=== PATIENT | female | born 1945 | race Caucasian/White ===

== ENCOUNTER → 2017-05-04 08:35 | Outpatient (CLI) | payer MEDICARE, SELFPAY ==
--- NOTE | 2017-05-04 08:38 | HPBI_ITS ---
MAMMOGRAPHY - BILATERAL SCREENING 3-D FLOR SYNTHESIS REASON FOR EXAM: Female, 71 years old. Bilateral Screening 3-D tomosynthesis PERTINENT HISTORY: History of benign breast biopsy.. TECHNIQUE: 2-D mammograms and 3-D Flor synthesis of the breast (s) were performed. CAD was performed. COMPARISON: 04/26/2016 FINDINGS: The breast composition is composed of scattered fibroglandular density. Stable scattered benign punctate calcifications are seen. No dense spiculated masses or suspicious microcalcifications are identified. No architectural distortion is identified. There is no skin thickening or retraction. There has been no significant change since the prior study. HPBI/SCREENING MAMM (CAD), BILAT IMPRESSION: No mammographic signs of malignancy. Routine yearly mammograms recommended. ASSESSMENT CATEGORY: BIRADS Category 2: Benign. A letter regarding these results will be sent to the patient by the facility within 30 days. FOLLOW UP RECOMMENDATION: Yearly follow up mammogram recommended. (A) Approximately 10% of breast cancers are not detected by mammography. A normal mammogram should not delay biopsy of a clinically suspicious abnormality. Electronically Signed: Faizan Collier MD at 8:37 EDT , Service support ,
== END ==
PROVIDERS: Family Provider Student in an Organized Health Care Education/Training Program; PCP Student in an Organized Health Care Education/Training Program; Visit Provider Student in an Organized Health Care Education/Training Program
DX: Z12.31 Encounter for screening mammogram for malignant neoplasm of breast (principal)
CPT/HCPCS: 77063; 77067

== ENCOUNTER → 2018-05-07 09:38 | Outpatient (CLI) | payer MEDICARE, SELFPAY ==
--- NOTE | 2018-05-07 09:45 | BI_ITS ---
MAMMOGRAPHY - BILATERAL SCREENING REASON FOR EXAM: Female, 72 years old. Routine annual screening examination. PERTINENT HISTORY: Non-contributory. Remote left stereotactic breast biopsy. TECHNIQUE: Digital bilateral breast fran (3D mammographic acquisition) in the CC and MLO projections. 2-D mediolateral oblique (MLO) and craniocaudad (CC) views of both breasts were obtained. CAD: Full Field Digital Mammography with Computer Added Detection was performed. COMPARISON: Comparison is made with prior study dated November 30, 2014 and April 26, 2016. FINDINGS: Breast Composition: There are scattered areas of fibroglandular density. There are no dominant masses or suspicious calcifications. Once again, there is evidence of scattered bilateral microcalcifications in both breasts. These are unchanged. A tissue clip marker is seen in the deep slightly upper lateral portion of the right breast. No other significant abnormalities are identified. There has been no significant change since the prior study. BI/SCREENING MAMM (CAD), BILAT IMPRESSION: Stable bilateral screening mammogram. Yearly follow-up mammogram recommended. (A) ASSESSMENT CATEGORY: BIRADS Category 2: Benign. A letter regarding these results will be sent to the patient by the facility within 30 days. Approximately 10% of breast cancers are not detected by mammography. A normal mammogram should not delay biopsy of a clinically suspicious abnormality. [id number] Electronically Signed: Antonio Matamoros, at 11:10 EDT , Service support ,
== END ==
PROVIDERS: Family Provider Student in an Organized Health Care Education/Training Program; PCP Student in an Organized Health Care Education/Training Program; Referring Provider Student in an Organized Health Care Education/Training Program; Visit Provider Student in an Organized Health Care Education/Training Program
DX: Z12.31 Encounter for screening mammogram for malignant neoplasm of breast (principal)
CPT/HCPCS: 77063; 77067

== ENCOUNTER → 2019-05-12 09:44 | Outpatient (CLI) | payer MEDICARE, SELFPAY ==
--- NOTE | 2019-05-12 09:50 | BI_ITS ---
MAMMOGRAPHY - BILATERAL SCREENING REASON FOR EXAM: Female, 73 years old. Routine annual screening examination. PERTINENT HISTORY: Non-contributory. Prior left stereotactic breast biopsy. TECHNIQUE: Digital bilateral breast flor (3D mammographic acquisition) in the CC and MLO projections. 2-D mediolateral oblique (MLO) and craniocaudad (CC) views of both breasts were obtained. CAD: Full Field Digital Mammography with Computer Added Detection was performed. COMPARISON: Comparison is made with prior study May 07, 2018 and May 04, 2017. FINDINGS: Breast Composition: The breasts are almost entirely fatty. There are no dominant masses or suspicious calcifications. Once again, stable bilateral microcalcifications. A tissue marker is seen in the deep slightly upper lateral portion of the right breast. No other significant abnormalities are identified. There has been no significant change since the prior study. BI/SCREEN MAMM (CAD) W/FLOR BILAT IMPRESSION: Stable bilateral screening mammogram. Yearly follow-up mammogram recommended. (A) ASSESSMENT CATEGORY: BIRADS Category 2: Benign. A letter regarding these results will be sent to the patient by the facility within 30 days. Approximately 10% of breast cancers are not detected by mammography. A normal mammogram should not delay biopsy of a clinically suspicious abnormality. [id number] Electronically Signed: Antonio Matamoros, at 11:25 EDT , Service support ,
== END ==
PROVIDERS: Family Provider Student in an Organized Health Care Education/Training Program; PCP Student in an Organized Health Care Education/Training Program; Referring Provider Student in an Organized Health Care Education/Training Program; Visit Provider Student in an Organized Health Care Education/Training Program
DX: Z12.31 Encounter for screening mammogram for malignant neoplasm of breast (principal)
CPT/HCPCS: 77063; 77067

== ENCOUNTER → 2020-05-14 09:59 | Outpatient (CLI) | payer MEDICARE, SELFPAY ==
--- NOTE | 2020-05-14 10:03 | BI_ITS ---
MAMMOGRAPHY - BILATERAL SCREENING REASON FOR EXAM: Female, 74 years old. Routine annual screening examination. PERTINENT HISTORY: Non-contributory. Remote left stereotactic breast biopsy and left needle biopsy. TECHNIQUE: Digital bilateral breast flor (3D mammographic acquisition) in the CC and MLO projections. 2-D mediolateral oblique (MLO) and craniocaudad (CC) views of both breasts were obtained. CAD: Full Field Digital Mammography with Computer Added Detection was performed. COMPARISON: Comparison is made with prior study of 05/12/2019 and 05/07/2018. FINDINGS: Breast Composition: There are scattered areas of fibroglandular density. There are no dominant masses or suspicious calcifications. A tissue clip marker is once again seen in the deep slightly upper lateral portion of the left breast. Stable scattered bilateral microcalcifications. No other significant abnormalities are identified. There has been no significant change since the prior study. BI/SCRN MAMM (CAD)W/FLOR BILAT IMPRESSION: Stable bilateral screening mammogram. Yearly follow-up mammogram recommended. (A) ASSESSMENT CATEGORY: BIRADS Category 2: Benign. A letter regarding these results will be sent to the patient by the facility within 30 days. Approximately 10% of breast cancers are not detected by mammography. A normal mammogram should not delay biopsy of a clinically suspicious abnormality. [id number] Electronically Signed: Antonio Matamoros MD at 12:27 EDT , Service support ,
== END ==
PROVIDERS: PCP Student in an Organized Health Care Education/Training Program; Referring Provider Student in an Organized Health Care Education/Training Program; Visit Provider Student in an Organized Health Care Education/Training Program
DX: Z12.31 Encounter for screening mammogram for malignant neoplasm of breast (principal)
CPT/HCPCS: 77063; 77067

== ENCOUNTER 2020-12-21 18:17 | Emergency (ER) | payer MEDICARE, SELFPAY ==
[2020-12-21 18:19] VITALS: BP 143/75; PULSE 67; RESP 16; TEMP 36.4; O2SAT 100; BMI 35.4
--- NOTE | 2020-12-21 22:10 | ED.VIS.GI ---
HPI HPI - GI History of Present Illness Chief Complaint: Nausea/Vomiting Narrative Narrative: 75-year-old female presenting with nausea and vomiting. She states she started having nausea and vomiting about 9:00 this morning. She was trying to keep hydrated but kept vomiting. She denies any abdominal pain. She denies cough, shortness of breath, fever, chills. She denies diarrhea. She has no urinary complaints. Patient has no sick contacts. Patient was given Zofran prior to arrival in EMS and now feels better. She was also given a liter of IV fluids. PFSH PFSH Home Medications ondansetron 4 mg PO Q8H PRN PRN #20 tab 12/21/20 [Rx Last Taken Unknown] Allergy/AdvReac Type Severity Reaction Status Date / Time diphenhydramine Allergy PT UNSURE Verified 12/21/20 18:22 [From Benadryl] OF REACTION Penicillins Allergy PT UNSURE Verified 12/21/20 18:22 OF REACTION Social History Smoking Status: Never smoker ROS ROS ED Constitutional Constitutional ED: Denies chills or fever(s) ENT ENT ED: Denies rhinorrhea or sore throat Cardiovascular Cardiovascular: Denies chest pain or palpitations Respiratory/Chest Respiratory/Chest: Denies cough or dyspnea Gastrointestinal Gastrointestinal: Reports nausea and vomiting; Denies abdominal pain Genitourinary Genitourinary ED: Denies dysuria or hematuria Musculoskeletal Musculoskeletal: Denies arthralgias or myalgias Integumentary Denies rash Neurologic Neurologic: Denies headache(s) or paresthesias EXAM Physical Exam Const Vital Signs: 12/21/20 18:19 Temperature 97.6 F L Temperature Source Temporal Pulse Rate 67 Respiratory Rate 16 Blood Pressure 143/75 H Blood Pressure Mean 97 Pulse Ox 100 Oxygen Delivery Method Room Air Positive well nourished General Appearance ED: NAD; Negative for pallor HEENT Reports moist mucous membranes normocephalic and atraumatic Eyes PERRL and EOMs intact bilaterally Resp normal respiratory effort and clear to auscultation bilaterally Cardio regular rate and regular rhythm GI non-tender and non-distended Palpation: soft Extremity full ROM General Extremety ED: Negative for edema General Extremity: Negative for edema Neuro Sensorium / Orientation: alert, oriented to person, oriented to place and oriented to time Psych mental status grossly normal and thought process normal Skin General Skin Exam: Negative for jaundice or pallor Rashes: no rashes MDM MDM MDM Narrative Medical decision making narrative: Patient was already given IV fluid bolus as well as Zofran and she has not had any return of her vomiting. I did check some lab work and her CBC shows no leukocytosis with a stable H&H. Electrolytes are normal. She does have some prerenal azotemia. She was given a second liter of IV fluids. She was ambulated in the hallway and felt stable. I will prescribe her Zofran for home. She is counseled to hydrate with small amounts frequently. She is given return precautions. Impression: 1. Nausea/vomiting 2. Dehydration Lab Data Attestation: I reviewed the patient's lab results. Labs: Laboratory Results - last 24 hr 12/21/20 12/21/20 22:50 22:50 WBC 10.1 RBC 4.80 Hgb 11.7 L Hct 38.7 MCV 80.6 L MCH 24.4 L MCHC 30.2 L RDW Std Deviation 40.9 RDW Coeff of Anand 14.2 Plt Count 322 MPV 10.9 Immature Gran % (Auto) 0.300 Neut % (Auto) 77.4 H Lymph % (Auto) 15.3 L Greer % (Auto) 6.3 Eos % (Auto) 0.3 Baso % (Auto) 0.4 Absolute Neuts (auto) 7.8 H Absolute Lymphs (auto) 1.55 Nucleated RBC % 0 Sodium 142 Potassium 3.6 Chloride 112 H Carbon Dioxide 24.0 Anion Gap 6 BUN 16 Creatinine 0.67 Estim Creat Clear Calc 41.45 Est GFR (MDRD) Af Amer 110 Est GFR (MDRD) Non-Af 91 BUN/Creatinine Ratio 23.8 H Glucose 151 H Calcium 8.5 Total Bilirubin 0.40 AST 25 ALT 40 Alkaline Phosphatase 113 Total Protein 6.8 Albumin 3.2 Globulin 3.6 Albumin/Globulin Ratio 0.9 Discharge Plan Triage Chief Complaint: Nausea/Vomiting ED Provider: Cecil Friend Dx/Rx/DC Orders Instructions: ED Dehydration (Adult), ED Vomiting (Adult) Prescriptions: New ondansetron 4 mg tablet,disintegrating 4 mg PO Q8H PRN PRN (Reason: Nausea) Qty: 20 RF: 0 Primary Care Provider: Jeff Simeon Referrals: Jeff Simeon DO [Primary Care Provider] - Disposition Disposition: Home, Self Care
[2020-12-21] MEDS: 0.9% Normal Saline 1,000 ML 1000 ML IV (22:13)
[2020-12-21 22:57] LABS: Absolute Lymphocyte Count 1.55 X10^3/uL (0.83-4.51); Absolute Neutrophil Count 7.8 X10^3/uL (2.0-7.7); Basophil# 0.04 X10^3/uL; Basophil% 0.4 % (0-1); Eosinophil# 0.03 X10^3/uL; Eosinophils% 0.3 % (0-5); Hematocrit 38.7 % (37-47); Hemoglobin 11.7 g/dL (12.0-15.0); Lymphocyte # 1.55 X10^3/ul (0.83-4.51); Lymphocyte % 15.3 % (19-41); Mean Corp Hgb Conc 30.2 g/dL (32-36); Mean Corpuscular Hgb 24.4 pg (27.0-32.0); Mean Corpuscular Volume 80.6 fL (81-99); Mean Platelet Vol. 10.9 fl (6.2-12.0); Monocyte# 0.64 X10^3/uL; Monocyte% 6.3 % (0-10); NRBC Flagged by Analyzer 0 % (0-5); Neutrophil # 7.81 X10^3/uL (2.7-7.7); Neutrophil % 77.4 % (47-70); Platelet Count 322 K/mm3 (150-450); RBC Distribution Width CV 14.2 % (11.6-14.6); RBC Distribution Width SD 40.9 fl (35.1-43.9); White Blood Count 10.1 K/mm3 (4.4-11.0)
[2020-12-21 23:13] LABS: ALB/GLOB Ratio 0.9 RATIO (0.9-2.4); AST(SGOT) 25 U/L (15-37); Alanine Aminotransfer ALT/SGPT 40 U/L (13-56); Albumin, Serum 3.2 g/dL (3.2-5.0); Alkaline Phosphatase 113 U/L (45-117); Anion Gap 6 (5-15); BUN 16 mg/dL (7-18); BUN/Creat Ratio 23.8 RATIO (10-20); Calcium,Total 8.5 mg/dL (8.5-10.1); Chloride 112 mmol/L (98-107); Creatinine, Serum 0.67 mg/dL (0.55-1.02); EST Glomerular Filtration Rate 91 mL/min (>60); Est Glom Filt Rate - Afr Amer 110 mL/min (>60); Estimated Creatinine Clearance 41.45 ml/min; Globulin 3.6 g/dL (2.2-4.2); Glucose 151 mg/dL (74-106); Potassium 3.6 mmol/L (3.5-5.1); Protein, Total 6.8 g/dL (6.4-8.2); Sodium Level 142 mmol/L (136-145)
== END 2020-12-21 23:55 | disposition home or self-care (01) ==
PROVIDERS: Emergency Provider Student in an Organized Health Care Education/Training Program; PCP Student in an Organized Health Care Education/Training Program
DX: R11.2 Nausea with vomiting, unspecified (principal); E86.0 Dehydration
CPT/HCPCS: 36415; 80053; 85025; 99285; A4216

== ENCOUNTER 2021-05-20 15:16 | Outpatient (CLI) | payer MEDICARE, SELFPAY ==
--- NOTE | 2021-05-20 15:20 | BI_ITS ---
MAMMOGRAPHY - BILATERAL SCREENING REASON FOR EXAM: Female, 76 years old. Routine annual screening examination. PERTINENT HISTORY: Non-contributory. Remote left stereotactic breast biopsies. Chronic inversion of the left nipple. TECHNIQUE: Digital bilateral breast flor (3D mammographic acquisition) in the CC and MLO projections. 2-D mediolateral oblique (MLO) and craniocaudad (CC) views of both breasts were obtained. CAD: Full Field Digital Mammography with Computer Added Detection was performed. COMPARISON: Comparison is made with prior study dated 05/14/2020 and 05/12/2019. FINDINGS: Breast Composition: There are scattered areas of fibroglandular density. There are no dominant masses or suspicious calcifications. A tissue clip marker is once again seen in the deep slightly upper lateral portion of the left breast. Stable scattered bilateral calcifications. No focal cluster is seen. No other significant abnormalities are identified. There has been no significant change since the prior study. BI/SCRN MAMM (CAD)W/FLOR BILAT IMPRESSION: Stable bilateral screening mammogram. Yearly follow-up mammogram recommended. (A) ASSESSMENT CATEGORY: BIRADS Category 2: Benign. A letter regarding these results will be sent to the patient by the facility within 30 days. Approximately 10% of breast cancers are not detected by mammography. A normal mammogram should not delay biopsy of a clinically suspicious abnormality. [id number] Electronically Signed: Antonio Matamoros MD at 8:18 EDT ,
== END 2021-05-20 23:59 | disposition home or self-care (01) ==
LOC: OPBI 15:19
PROVIDERS: PCP Student in an Organized Health Care Education/Training Program; Referring Provider Student in an Organized Health Care Education/Training Program; Visit Provider Student in an Organized Health Care Education/Training Program
DX: Z12.31 Encounter for screening mammogram for malignant neoplasm of breast (principal)
CPT/HCPCS: 77063; 77067

== ENCOUNTER → 2022-05-22 | Outpatient (CLI) | payer MEDICARE, SELFPAY ==
--- NOTE | 2022-05-22 08:51 | BI_ITS ---
MAMMOGRAPHY - BILATERAL SCREENING 3-D TOMOSYNTHESIS REASON FOR EXAM: Female, 77 years old. Routine screening PERTINENT HISTORY: No significant family history. History of previous biopsy TECHNIQUE: 2-D mammograms and 3-D Tomosynthesis of the breast (s) were performed. CAD was performed. COMPARISON: 05/14/2020 FINDINGS: The breast composition is almost entirely fat. Scattered benign calcifications are seen. No dense spiculated masses or suspicious microcalcifications are identified. No architectural distortion is identified. There is no skin thickening or retraction. Stable bilateral calcifications There has been no significant change since the prior study. BI/SCRN MAMM (CAD)W/FLOR BILAT IMPRESSION: No mammographic signs of malignancy. Routine yearly mammograms recommended. ASSESSMENT CATEGORY: BIRADS Category 2: Benign. A letter regarding these results will be sent to the patient by the facility within 30 days. FOLLOW UP RECOMMENDATION: Yearly follow up mammogram recommended. (A) Approximately 10% of breast cancers are not detected by mammography. A normal mammogram should not delay biopsy of a clinically suspicious abnormality. Electronically Signed: Faizan Collier MD at 10:10 EDT ,
== END | disposition home or self-care (01) ==
LOC: OPBI 08:49
PROVIDERS: PCP Student in an Organized Health Care Education/Training Program; Referring Provider Student in an Organized Health Care Education/Training Program; Visit Provider Student in an Organized Health Care Education/Training Program
DX: Z12.31 Encounter for screening mammogram for malignant neoplasm of breast (principal)
CPT/HCPCS: 77063; 77067

== ENCOUNTER 2023-03-05 18:58 | Inpatient (IN) | payer MEDICARE, SELFPAY ==
[2023-03-05 18:59] VITALS: BP 155/65; PULSE 96; RESP 16; TEMP 35.4; O2SAT 99; BMI 30.6
--- NOTE | 2023-03-05 19:13 | EDS_ITS ---
HPI HPI - GI History of Present Illness Chief Complaint: Abd Pain Informant: patient Abdominal Pain/Flank Pain Onset: Days Context: Gradual Onset Timing: Continuous Quality: Sharp Location: RLQ Worsened by: Nothing Relieved by: Nothing Nausea/Vomiting/Emesis GI Symptom: Negative for Nausea or Vomiting Diarrhea/Melena/Hematochezia GI Symptom: Negative for Diarrhea, Melena or Hematochezia Associated Symptoms Associated Symptoms: Negative for Dysuria, Frequency or Hematuria Narrative Narrative: Patient presents with right lower abdominal pain that has been getting worse over the past couple days. Patient states she has had some mild pain over the past year. Patient states that the past 2 days she has noticed increasing pain. Patient states she has an appoint with her primary care physician coming up in 2 days. Patient states that today the pain became too severe to wait until her primary care appointment. Patient describes her pain as sharp. Patient states it is mainly over the right lower abdomen. Patient states nothing makes it better and nothing makes it worse. Patient missed a decreased appetite. Patient states she did eat today however. Patient states she ate approximately 1 hour prior to arrival. Patient states she has a history of diabetes and her blood sugars have been trending up over the past several days. Patient states her blood sugars have been in the 200s over the past few days. [facility] Medical History (Updated 03/05/23 @ 21:[address] Stas Arredondo, ) Diabetes mellitus Home Medications ondansetron 4 mg disintegrating tablet 4 mg PO Q8H PRN PRN Nausea #20 tabs 12/21/20 [Rx Last Taken Unknown] aspirin 81 mg capsule 81 mg PO DAILY HEART 03/05/23 [History Last Taken Unknown] famotidine PO INDIGESTION 03/05/23 [History Last Taken Unknown] fexofenadine .ROUTE ALLERGIES 03/05/23 [History Last Taken Unknown] glimepiride 2 mg tablet 2 mg PO DAILY 03/05/23 [History Last Taken Unknown] levothyroxine 150 mcg tablet 150 mcg PO QHS 03/05/23 [History Last Taken Unknown] losartan 50 mg tablet 50 mg PO DAILY 03/05/23 [History Last Taken Unknown] metformin 500 mg tablet 1,000 mg PO BID 03/05/23 [History Last Taken Unknown] Allergy/AdvReac Type Severity Reaction Status Date / Time diphenhydramine Allergy PT UNSURE Verified 12/21/20 18:22 [From [place]] OF REACTION Penicillins Allergy PT UNSURE Verified 12/21/20 18:22 OF REACTION Surgical History (Updated 03/05/23 @ 19:[address] Stas Arredondo DO) Hx of cholecystectomy Social History Smoking Status: Never smoker ROS ROS ED Constitutional Constitutional ED: Denies chills or fever(s) Eyes Eyes: Denies blurry vision or change in vision ENT ENT ED: Reports rhinorrhea; Denies sore throat Cardiovascular Cardiovascular: Denies chest pain or palpitations Respiratory/Chest Respiratory/Chest: Denies cough or dyspnea Gastrointestinal Gastrointestinal: Reports abdominal pain; Denies nausea or vomiting Genitourinary Genitourinary ED: Denies dysuria or hematuria Musculoskeletal Musculoskeletal: Denies back pain or neck pain Integumentary Denies abscess or rash Neurologic Neurologic: Denies headache(s) or weakness Allergic/Immunologic Allergic/Immunologic ED: Denies mouth swelling or urticaria EXAM Physical Exam Const Vital Signs: 03/05/23 18:59 03/05/23 21:57 Temperature 95.7 F L Temperature Source Temporal Pulse Rate 96 103 H Respiratory Rate 16 16 Blood Pressure 155/65 H 144/74 H Blood Pressure Mean 95 97 Pulse Ox 99 98 Oxygen Delivery Method Room Air Room Air Positive well nourished and well developed General Appearance ED: well developed and NAD HEENT Reports moist mucous membranes Neck supple and no JVD Resp normal respiratory effort and clear to auscultation bilaterally Cardio regular rate and regular rhythm GI Palpation: tender RLQ and RUQ; Negative for guarding or rebound tenderness present Extremity full ROM General Extremety ED: Negative for edema or tenderness General Extremity: Negative for edema Neuro CN's II-XII intact bilaterally, moves all extremities and no sensory deficits noted Sensorium / Orientation: alert Motor Exam: strength 5/5 throughout Psych mental status grossly normal MDM MDM MDM Narrative Medical decision making narrative: Differential diagnosis includes appendicitis, ureteral calculus, urinary tract infection, pyelonephritis, gastroenteritis, pancreatitis, hyperglycemia, and muscular pain. CT scan of the abdomen and pelvis will be obtained to assess for ureteral calculus and appendicitis. CBC will be obtained to assess for leukocytosis and anemia. Comprehensive metabolic profile will be obtained to assess for hepatic function, renal function, and electrolyte abnormality. Lipase will be obtained to assess for pancreatitis. Urinalysis will be obtained to assess for urinary tract infection and hematuria. Lab Data Attestation: I reviewed the patient's lab results. Lab results narrative: CBC was reviewed. White blood cell count was elevated at 14.9. Hemoglobin 7.7 and hematocrit 35.7. Platelets were slightly elevated at 474. Comprehensive metabolic profile was reviewed and was essentially within normal limits. Lipase was reviewed and was normal at 13. Urinalysis was reviewed. There is no evidence of urinary tract infection or hematuria. Labs: Laboratory Results - last 24 hr 03/05/23 03/05/23 19:30 19:45 WBC 14.9 H RBC 4.79 Hgb 10.7 L Hct 35.7 L MCV 74.5 L MCH 22.3 L MCHC 30.0 L RDW Std Deviation 36.4 RDW Coeff of Anand 13.5 Plt Count 474 H MPV 9.6 Immature Gran % (Auto) 0.700 Neut % (Auto) 83.7 H Lymph % (Auto) 7.9 L Mcduff[place] % (Auto) 6.6 Eos % (Auto) 0.8 Baso % (Auto) 0.3 Absolute Neuts (auto) 12.5 H Absolute Lymphs (auto) 1.18 Nucleated RBC % 0 Sodium 137 Potassium 3.9 Chloride 102 Carbon Dioxide 27.0 Anion Gap 8 BUN 16 Creatinine 0.82 Estim Creat Clear Calc 58.78 Est GFR (MDRD) Af Amer 87 Est GFR (MDRD) Non-Af 72 BUN/Creatinine Ratio 19.5 Glucose 252 H Hemoglobin A1c 6.6 H Calcium 9.2 Total Bilirubin 0.30 AST 6 L ALT 11 L Alkaline Phosphatase 107 Total Protein 7.3 Albumin 2.8 L Globulin 4.5 H Albumin/Globulin Ratio 0.6 L Lipase 13 Urine Color Yellow Urine Clarity Sl. Cloudy Urine pH 5.0 Ur Specific Aguirre 1.025 Urine Protein 30 H Urine Glucose (UA) Normal Urine Ketones 5 H Urine Occult Blood 10 H Urine Nitrite Negative Urine Bilirubin 3 H Urine Urobilinogen 1 H Ur Leukocyte Esterase 100 H Urine RBC 0 SEEN Urine WBC 0-5 SEEN Ur Squamous Epith Cells 0-5 SEEN Urine Bacteria 1+ Urine Mucus 0 SEEN Radiography Diagnostic Testing: Clinical Impression(s) from Imaging Studies Abdomen/Pelvis CT 03/05/23 20:03 IMPRESSION: Very limited by the absence of IV and especially oral contrast. Extensive inflammatory process of the right lower quadrant associated with irregular bowel wall thickening of the right colon, probable perforation, and retrocecal abscess. Findings could represent perforated diverticulitis or perforated neoplasm. Colonoscopy is indicated. Nonobstructing left renal stone. The Nonstandard Physician Communication protocol was initiated. Electronically Signed: Cristino Gonzalez MD at 20:58 EST , ADDENDUM: 03/05/23 2210 IMPRESSION: Very limited by the absence of IV and especially oral contrast. Extensive inflammatory process of the right lower quadrant associated with irregular bowel wall thickening of the right colon, probable perforation, and retrocecal abscess. Findings could represent perforated diverticulitis or perforated neoplasm. Colonoscopy is indicated. Nonobstructing left renal stone. The Nonstandard Physician Communication protocol was initiated. N.B. : Stas Arredondo DO, confirmed on 03/05/2023 22:04:07 (ET) that the healthcare facility has received the radiology report. Electronically Signed: Cristino Gonzalez MD at 20:58 EST , CT scan of the abdomen pelvis was obtained. There is some inflammatory process of the right lower quadrant with irregular bowel wall thickening of the right colon. There is probable perforation and retrocecal abscess. This was interpreted by the radiologist and was also independently reviewed by myself. Management Discussion w/another healthcare provider: Medical Assistant Dermatology (Dr. Ballard from general surgery) Treatment and Re-Evaluation :: Patient was given IV fluids, morphine, and Zofran. Due to the patient's penicillin allergy, patient was started on meropenem. Patient was advised of her findings. Patient would prefer to be admitted here. Case will be discussed with Dr. Ballard from general surgery. Dr. Ballard was in to evaluate the patient. He recommended obtaining CT scan with oral and IV contrast. This was ordered. He will admit the patient to his service. Patient understood and was agreeable with the plan. All questions were answered. Discharge Plan Triage Chief Complaint: Abd Pain ED Provider: Stas Arredondo Dx/Rx/DC Orders Clinical Impression: Retrocecal abscess, Right lower quadrant abdominal pain Primary Care Provider: Jeff Simeon Disposition Disposition: Acute Care Hospital [facility]
--- OUTSIDE RECORDS SUMMARY | 2023-03-05 19:41 | XMS RPT_ITS | CCD ---
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 Name Role Phone TIFFANY RONQUILLO Admitting Unavailable TIFFANY RONQUILLO Attending Unavailable Pearce DO Jeff Cedric Primary Care Provider Pearce DOJeff Primary Care Provider Pearce DO Jeff L Primary Care Provider Pearce DOJeff L Primary Care Provider RODRIGUEZ LOUIE Admitting Unavailable RODRIGUEZ LOUIE Attending Unavailable PEARCE, JEFF L Primary Care Unavailable PEARCE, JEFF L Primary Care Unavailable PEARCE, JEFF L Primary Care Unavailable PEARCE, JEFF L Primary Care Unavailable PEARCE, JEFF L Referring Unavailable PEARCE, JEFF L Primary Care Unavailable PEARCE, JEFF L Attending Unavailable PEARCE, JEFF L Primary Care Unavailable PEARCE, JEFF L Primary Care Unavailable PEARCE, JEFF L Primary Care Unavailable PEARCE, JEFF L Referring Unavailable PEARCE, JEFF L Primary Care Unavailable PEARCE, JEFF L Primary Care Unavailable PEARCE, JEFF L Attending Unavailable PEARCE, JEFF L Primary Care Unavailable PEARCE, JEFF L Primary Care Unavailable PEARCE, JEFF L Referring Unavailable PEARCE, JEFF L Primary Care Unavailable PEARCE, JEFF L Primary Care Unavailable PEARCE, JEFF L Referring Unavailable PEARCE, JEFF L Primary Care Unavailable PEARCE, JEFF L Primary Care Unavailable PEARCE, JEFF L Primary Care Unavailable PEARCE, JEFF L Referring Unavailable PEARCE, JEFF L Primary Care Unavailable PEARCE, JEFF L Primary Care Unavailable PEARCE, JEFF L Referring Unavailable RODRIGUEZ LOUIE Attending Unavailable PEARCE, JEFF L Primary Care Unavailable GUTNICK, SHAHRIAR R Referring Unavailable PEARCE, JEFF L Primary Care Unavailable PEARCE, JEFF L Primary Care Unavailable PEARCEJEFF L Primary Care Unavailable PEARCE, JEFF L Primary Care Unavailable BETH, AMADO Referring Unavailable BETH, AMADO Attending Unavailable PEARCE, JEFF L Primary Care Unavailable PEARCE, JEFF L Referring Unavailable PEARCE, JEFF L Attending Unavailable PEARCE, JEFF L Primary Care Unavailable PEARCE, JEFF L Primary Care Unavailable PEARCE, JEFF L Primary Care Unavailable PEARCE, JEFF L Primary Care Unavailable PEARCE, JEFF L Primary Care Unavailable PEARCE, JEFF L Primary Care Unavailable PEARCE, JEFF L Primary Care Unavailable BETH, AMADO Attending Unavailable Allergies Allergy Classification Reported Allergen(s) Allergy Type Date of Onset Reaction(s) Facility (20 sources) diphenhydrAMINE ; Translations: [DIPHENHYDRAMIN E HCL] Drug Allergy 6 Swelling [facility] (20 sources) Hmg-Coa Reductase Inhibitors (Statins); Translations: [[id number] A REDUCTASE INHIBITORS] Propensity to adverse reactions to drug (disorder) 6 Contraindicatio n-Medical Surgical [facility] (20 sources) Penicillins; Translations: [PENICILLINS] Propensity to adverse reactions to drug (disorder) 6 Shortness of Breath [facility] Medications Current Medications Medication Drug Class(es) Dates Sig (Normalized) Sig (Original) metFORMIN hydrochloride 500 mg oral tablet (20 sources) Biguanide Start: 01-22-2023 End: 01-17-2024 take 2 tablets by mouth twice daily at mealtime metFORMIN (GLUCOPHAGE) 500 mg tablet Indications: Controlled type 2 diabetes mellitus without complication, without long-term current use of insulin (HCC) Take 2 tablets by mouth two times a day with meals. 360 tablet 3 01/22/2023 01/17/2024 Active Completed/Discontinued Medications Medication Drug Class(es) Dates Sig (Normalized) Sig (Original) aspirin 81 mg delayed release oral tablet (20 sources) Platelet Aggregation Inhibitor, Nonsteroidal Anti-inflammatory Drug take 1 tablet by mouth once daily aspirin, enteric coated (ASPIRIN, ENTERIC COATED) 81 mg EC tablet Take 81 mg by mouth once daily. 0 Active Problems Active Problems Problem Classification Problem Date Documented Da te Episodic/Chronic Deficiency and other anemia (7 sources) Nutritional anemia; Translations: [Other vitamin B12 deficiency anemias] Episodic Deficiency and other anemia (2 sources) Iron deficiency anemia; Translations: [Other iron deficiency anemias] Episodic Diabetes mellitus with complications (20 sources) Type II diabetes mellitus uncontrolled; Translations: [Type 2 diabetes mellitus with hyperglycemia] Onset: 11-15-2021 Chronic Diabetes mellitus without complication (20 sources) Type 2 diabetes mellitus without complication; Translations: [Type 2 diabetes mellitus without complications] Onset: 01-21-2018 01-21-2018 Chronic Disorders of lipid metabolism (20 sources) Hypertriglyceridemia ; Translations: [Pure hyperglyceridemia] Onset: 04-13-2017 04-13-2017 Chronic Essential hypertension (20 sources) Essential hypertension; Translations: [Essential (primary) hypertension] Onset: 05-17-2015 05-17-2015 Chronic Nutritional deficiencies (20 sources) Vitamin D deficiency; Translations: [Vitamin D deficiency, unspecified] Onset: 02-19-2019 02-19-2019 Chronic Other aftercare (1 source) Surgical follow-up; Translations: [Encounter for other specified surgical aftercare] Episodic Other and unspecified benign neoplasm (1 source) Personal history of colonic polyps; Translations: [Personal history of colonic polyps] Onset: 02-26-2018 Episodic Other gastrointestinal disorders (20 sources) Malabsorption syndrome; Translations: [Intestinal malabsorption, unspecified] Onset: 05-31-2021 Chronic Other gastrointestinal disorders (2 sources) Intestinal malabsorption, unspecified; Translations: [Malabsorption syndrome] Onset: 05-31-2021 Chronic Other gastrointestinal disorders (1 source) Other fecal abnormalities; Translations: [Other fecal abnormalities] Onset: 02-26-2018 Episodic Other liver diseases (18 sources) Steatosis of liver; Translations: [Fatty (change of) liver, not elsewhere classified] Onset: 05-26-2022 Chronic Other liver diseases (2 sources) Fatty (change of) liver, not elsewhere classified; Translations: [Fatty liver] Onset: 03-24-2022 Chronic Other nervous system disorders (7 sources) Peripheral nerve disease ; Translations: [Polyneuropathy, unspecified] Onset: 01-21-2018 01-21-2018 Chronic Other nervous system disorders (1 source) Postoperative pain ; Translations: [Other acute postprocedural pain] Episodic Other nutritional; endocrine; and metabolic disorders (20 sources) Obese class II; Translations: [Obesity, unspecified] Onset: 04-13-2017 04-13-2017 Chronic Other screening for suspected conditions (not mental disorders or infectious disease) (2 sources) Patient encounter status; Translations: [Encounter for screening mammogram for malignant neoplasm of breast] Episodic Spondylosis; intervertebral disc disorders; other back problems (20 sources) Spondylosis; Translations: [Spondylosis, unspecified] Onset: 09-06-2020 09-06-2020 Chronic Thyroid disorders (20 sources) Acquired hypothyroidism; Translations: [Hypothyroidism, unspecified] Onset: 10-06-2016 10-06-2016 Chronic Past or Other Problems Problem Classification Problem Date Documented Da te Episodic/Chronic Abdominal pain (19 sources) Right upper quadrant pain; Translations: [Right upper quadrant pain] Onset: 03-09-2022 Episodic Biliary tract disease (20 sources) Cholelithiasis without obstruction; Translations: [Calculus of gallbladder without cholecystitis without obstruction] Onset: 03-24-2022 Episodic Deficiency and other anemia (20 sources) Anemia; Translations: [Anemia, unspecified] Onset: 05-31-2021 05-31-2021 Episodic Deficiency and other anemia (2 sources) Other vitamin B12 deficiency anemias; Translations: [Other vitamin B12 deficiency anemia] Onset: 05-31-2021 Episodic Deficiency and other anemia (1 source) Other iron deficiency anemias; Translations: [Other iron deficiency anemia] Onset: 05-31-2021 Episodic Gastrointestinal hemorrhage (20 sources) Hemorrhage of anus and rectum; Translations: [Hematochezia] Onset: 01-21-2018 01-21-2018 Episodic Malaise and fatigue (20 sources) Fatigue; Translations: [Other fatigue] Onset: 05-31-2021 Episodic Neoplasms of unspecified nature or uncertain behavior (20 sources) Skin lesion; Translations: [Neoplasm of unspecified behavior of bone, soft tissue, and skin] Onset: 08-25-2020 08-25-2020 Episodic Nutritional deficiencies (20 sources) Cobalamin deficiency; Translations: [Deficiency of other specified B group vitamins] Onset: 02-20-2020 02-20-2020 Episodic Other aftercare (1 source) Encounter for other specified surgical aftercare; Translations: [Aftercare following surgery] Onset: 04-13-2022 Episodic Other connective tissue disease (20 sources) Tendinitis of right rotator cuff; Translations: [Other shoulder lesions, right shoulder] Onset: 10-16-2017 10-16-2017 Episodic Other gastrointestinal disorders (20 sources) Occult blood in stools; Translations: [Other fecal abnormalities] Onset: 01-21-2018 01-21-2018 Episodic Other liver diseases (11 sources) Alkaline phosphatase raised; Translations: [Abnormal levels of other serum enzymes] Onset: 09-05-2022 09-05-2022 Episodic Other liver diseases (1 source) Abnormal levels of other serum enzymes; Translations: [Elevated alkaline phosphatase level] Onset: 09-05-2022 Episodic Other nervous system disorders (1 source) Other acute postprocedural pain; Translations: [Post-op pain] Onset: 04-10-2022 Episodic Other non-traumatic joint disorders (20 sources) Chronic ankle pain; Translations: [Pain in right ankle and joints of right foot] Onset: 08-25-2020 08-25-2020 Episodic Other non-traumatic joint disorders (20 sources) Hip pain; Translations: [Pain in right hip] Onset: 08-25-2020 08-25-2020 Episodic Residual codes; unclassified (1 source) Acquired absence of other specified parts of digestive tract; Translations: [S/P laparoscopic cholecystectomy] Onset: 04-10-2022 Episodic Spondylosis; intervertebral disc disorders; other back problems (20 sources) Chronic low back pain; Translations: [Chronic midline low back pain without sciatica] Onset: 08-25-2020 08-25-2020 Episodic Results Test Name Value Interpretation Reference Range Facil ity Vital Signs Date Time Vital Sign Value Performing Clinician Bird burroughs 12-08-2022 10:00-0400 Body temperature 96.4 [degF] Jeff [employer] DO Work Phone: [facility] 12-08-2022 10:00-0400 Body weight 82.56 kg Jeff Perace DO Work Phone: [facility] 12-08-2022 10:00-0400 Diastolic blood pressure 60 mm[Hg] LayerGlossrison DO Work Phone: [facility] 12-08-2022 10:00-0400 Heart rate 88 /min Jeff Pearce DO Work Phone: [facility] 12-08-2022 10:00-0400 Respiratory rate 16 /min Jeff Pearce DO Work Phone: [facility] 12-08-2022 10:00-0400 Systolic blood pressure 116 mm[Hg] Jeff Pearce DO Work Phone: [facility] 05-24-2022 16:10-0400 Body temperature 97.39 [degF] Jeff Pearce DO Work Phone: [facility] 05-24-2022 16:10-0400 Body weight 80.29 kg Jeff Pearce DO Work Phone: [facility] 05-24-2022 16:10-0400 Diastolic blood pressure 78 mm[Hg] Jeff Pearce DO Work Phone: [facility] 05-24-2022 16:10-0400 Heart rate 80 /min Jeff Pearce DO Work Phone: [facility] 05-24-2022 16:10-0400 Respiratory rate 16 /min Jeff Pearce DO Work Phone: [facility] 05-24-2022 16:10-0400 Systolic blood pressure 150 mm[Hg] Jeff Pearce DO Work Phone: [facility] 04-13-2022 09:01-0500 Body temperature 97.59 [degF] Amado Beth PA-C Work Phone: [facility] 04-13-2022 09:01-0500 Body weight 82.64 kg Amado Beth PA-C Work Phone: [facility] 04-13-2022 09:01-0500 Diastolic blood pressure 66 mm[Hg] Amado Bellaire PA-C Work Phone: [facility] 04-13-2022 09:01-0500 Heart rate 118 /min Amado Beth PA-C Work Phone: [facility] 04-13-2022 09:01-0500 SaO2% (BldA) [Mass fraction] 96 % Amado Bellaire PA-C Work Phone: [facility] 04-13-2022 09:01-0500 Systolic blood pressure 138 mm[Hg] Amado Bellaire PA-C Work Phone: [facility] 04-10-2022 13:38-0500 Body height 160 cm Amado Bellaire PA-C Work Phone: [facility] 04-10-2022 13:38-0500 Body temperature 97.2 [degF] Amado Bellaire PA-C Work Phone: [facility] 04-10-2022 13:38-0500 Body weight 83.92 kg Amado Bellaire PA-C Work Phone: [facility] 04-10-2022 13:38-0500 Diastolic blood pressure 58 mm[Hg] Amado Beth PA-C Work Phone: [facility] 04-10-2022 13:38-0500 Heart rate 117 /min Amado Bellaire PA-C Work Phone: [facility] 04-10-2022 13:38-0500 SaO2% (BldA) [Mass fraction] 93 % Amado Bellaire PA-C Work Phone: [facility] 04-10-2022 13:38-0500 Systolic blood pressure 118 mm[Hg] Amado Bellaire PA-C Work Phone: [facility] 04-03-2022 11:11-0500 Body height 160 cm Pacc 1 Work Phone: [facility] 04-03-2022 11:11-0500 Body temperature 97.59 [degF] Pacc 1 Work Phone: [facility] 04-03-2022 11:11-0500 Body weight 83.92 kg Pacc 1 Work Phone: [facility] 04-03-2022 11:11-0500 Diastolic blood pressure 70 mm[Hg] Pacc 1 Work Phone: [facility] 02-20-2023 11:11-0500 Heart rate 91 /min Pacc 1 Work Phone: [facility] 04-03-2022 11:11-0500 Respiratory rate 14 /min Pacc 1 Work Phone: [facility] 04-03-2022 11:11-0500 SaO2% (BldA) [Mass fraction] 97 % Pacc 1 Work Phone: [facility] 04-03-2022 11:11-0500 Systolic blood pressure 118 mm[Hg] Pacc 1 Work Phone: [facility] 03-24-2022 10:27-0500 Body height 160 cm Rodriguez Louie MD Work Phone: [facility] 03-24-2022 10:27-0500 Body temperature 96.8 [degF] Rodriguez Louie MD Work Phone: [facility] 03-24-2022 10:27-0500 Body weight 84.37 kg Rodriguez Louie MD Work Phone: [facility] 03-24-2022 10:27-0500 Diastolic blood pressure 64 mm[Hg] Rodriguez Louie MD Work Phone: [facility] 03-24-2022 10:27-0500 Heart rate 113 /min Rodriguez Louie MD Work Phone: [facility] 03-24-2022 10:27-0500 SaO2% (BldA) [Mass fraction] 98 % Rodriguez Louie MD Work Phone: [facility] 03-24-2022 10:27-0500 Systolic blood pressure 124 mm[Hg] Rodriguez Louie MD Work Phone: [facility] 02-20-2022 09:30-0500 Body temperature 97.11 [degF] Jeff Pearce DO Work Phone: [facility] 02-20-2022 09:30-0500 Body weight 86.18 kg Jeff Pearce DO Work Phone: [facility] 02-20-2022 09:30-0500 Diastolic blood pressure 60 mm[Hg] Jeff Pearce DO Work Phone: [facility] 02-20-2022 09:30-0500 Heart rate 80 /min Jeff Pearce DO Work Phone: [facility] 02-20-2022 09:30-0500 Respiratory rate 16 /min Jeff Pearce DO Work Phone: [facility] 02-20-2022 09:30-0500 Systolic blood pressure 124 mm[Hg] Jeff Pearce DO Work Phone: [facility] 11-15-2021 09:11-0400 Body temperature 96.3 [degF] Jeff Pearce DO Work Phone: [facility] 11-15-2021 09:11-0400 Body weight 87.54 kg Jeff Pearce DO Work Phone: [facility] 11-15-2021 09:11-0400 Diastolic blood pressure 60 mm[Hg] Jeff Pearce DO Work Phone: [facility] 11-15-2021 09:11-0400 Heart rate 88 /min Jeff Pearce DO Work Phone: [facility] 11-15-2021 09:11-0400 Respiratory rate 16 /min Jeff Pearce DO Work Phone: [facility] 11-15-2021 09:11-0400 Systolic blood pressure 124 mm[Hg] Jeff Pearce DO Work Phone: [facility] 05-30-2021 09:15-0400 Body temperature 97 [degF] Jeff Pearce DO Work Phone: [facility] 05-30-2021 09:15-0400 Body weight 92.08 kg Jeff Pearce DO Work Phone: [facility] 05-30-2021 09:15-0400 Diastolic blood pressure 70 mm[Hg] Jeff Pearce DO Work Phone: [facility] 05-30-2021 09:15-0400 Heart rate 80 /min Jeff Pearce DO Work Phone: [facility] 05-30-2021 09:15-0400 Respiratory rate 20 /min Jeff Pearce DO Work Phone: [facility] 05-30-2021 09:15-0400 Systolic blood pressure 110 mm[Hg] Jeff Pearce DO Work Phone: [facility] Encounters Encounter Date Encounter Type Care Provider Facility Start: 02-28-2023 End: 03-01-2023 ambulatory JEFF L PEARCE Facility:[facility] Start: 02-22-2023 End: 02-22-2023 ambulatory JEFF L PEARCE Facility:[facility] Start: 02-08-2023 End: 02-08-2023 ambulatory JEFF L PEARCE Facility:[facility] Start: 01-25-2023 End: 01-25-2023 ambulatory JEFF L PEARCE Facility:[facility] Start: 01-25-2023 End: 01-25-2023 Nursing evaluation of patient and report Mi Nurse Work Phone: [facility] Procedures Date Procedure Procedure Detail Performing Clinician Start: 08-24-2021 Adult depression screening assessment Mi Nurse Work Phone: Start: 05-20-2021 Mammography Jeff Pearce DO Work Phone: Start: 08-25-2020 Adult depression screening assessment Jeff Pearce DO Work Phone: Start: 05-14-2020 Mammography Jeff Pearce DO Work Phone: Start: 02-26-2018 Colonoscopy Jeff Pearce DO Work Phone: History of cholecystectomy S/P laparoscopic cholecystectomy Amado Campos PA-C Work Phone: Plan of Treatment Date Care Activity Detail Author Start: 02-27-2028 Colonoscopy COLONOSCOPY [facility] Start: 02-27-2028 COLORECTAL CANCER SCREENING COLORECTAL CANCER SCREENING [facility] Start: 02-27-2028 Screening for malign ant neoplasm of colon [facility] Start: 12-09-2023 Annual PCP Team Straightener Hand beba Disease Visit Annual PCP Team Chronic Disease Visit [facility] Start: 12-09-2023 BP Controlled (<130/80) BP Controlle d (<130/80) [facility] Start: 12-09-2023 Covid-19 Vaccine ( season) Covid-19 Vaccine ( season) [facility] Immunizations Immunization Date Immunization Notes Care Provider Luiz mcdonald 08-25-2020 COVID-19 vaccine (JONATHAN) Jeff Pearce DO Work Phone: [facility] 01-21-2018 influenza virus vacc ine, unspecified formulation Mi Nurse Work Phone: [facility] 05-16-2014 pneumococcal polysaccharide vaccine, 23 valent Jeff Kentrison DO Work Phone: [facility] 05-16-2010 tetanus toxoid, redu mervat diphtheria toxoid, and acellular pertussis vaccine, adsorbed Jeff Kentrison DO Work Phone: [facility] Payers Date Payer Category Payer Medicare AET MEDICARE A ETNA MEDICARE HMO [id number] 2021-Present [phone] [address] [place] [address] [facility] [id number] 2021 Medicare AETNA MEDICARE A ETNA MEDICARE HMO [id number] 2021-Present [phone] [address] [place] [address] [facility] [id number] 2021 Medicare [id number] Social History Date Type Detail Facility Start: 05-17-2015 End: 02-20-2022 Tobacco smoking status NHIS Never smoked tobacco [facility] Work Phone: Start: 05-17-2015 End: 02-20-2022 Tobacco use and exposure Smokeless tobacco non-user [facility] Work Phone: Start: 02-22-2021 End: 12-08-2022 Alcohol intake Current non-drinker of alcohol (finding) [facility] Start: 1945 Sex Assigned At Not on file [facility] Start: 05-20-2021 End: 11-15-2021 Exposure to SARS-CoV-2 (event) Not sure [facility] Work Phone: Start: 07-11-2022 End: 09-05-2022 History of Social function [facility] Work Phone: Start: 07-11-2022 End: 09-05-2022 Tobacco use panel [facility] Work Phone: Adult Depression Screening Assessment 0 [facility] Work Phone: Medical Equipment Procedure Code Equipment Code Equipment Origin al Text Equipment Identifier Dates Start: 04-21-2019 End: 12-08-2022 Clinical Notes 02-26-2018 to 02-22-2023 Hi Edmond LPN - 01/25/2023 10:22 AM Hi Werner LPN - 12/28/2022 9:50 AM Jeff Beach DO - 12/12/2022 4:50 PM EDHi Barrientos LPN - 11/30/2022 9:16 AM EDTPatient Instructions Note Date & Type Note Facility 02-22-2023 Note HNO ID: [id number] Author: HI EDMOND LPN Service: ? Author Type: LICENSED NURSE Type: Progress Notes Filed: 02/22/2023 10:19 Note Text: Patient presents for B-12 injection. Denies any problems at this time. Patient instructed on any SE of medication, verbalized understanding and agreed to proceed with treatment. Tolerated injection well. Hi Edmond LPN [facility] 02-08-2023 Note HNO ID: [id number] Author: Hi Edmond LPN Service: ? Author Type: LICENSED NURSE Type: Progress Notes Filed: 02/08/2023 10:16 AM Note Text: Patient presents for B-12 injection. Denies any problems at this time. Patient instructed on any SE of medication, verbalized understanding and agreed to proceed with treatment. Tolerated injection well. Hi Edmond LPN [facility] 01-25-2023 Note HNO ID: [id number] Author: Hi Edmond LPN Service: ? Author Type: ? Type: Progress Notes Filed: 01/25/2023 10:23 AM Note Text: Patient presents for B-12 injection. Denies any problems at this time. Patient instructed on any SE of medication, verbalized understanding and agreed to proceed with treatment. Tolerated injection well. Hi Edmond LPN [facility] 01-25-2023 History of Present illness Narrative Patient presents for B-12 injection. Denies any problems at this time. Patient instructed on any SE of medication, verbalized understanding and agreed to proceed with treatment. Tolerated injection well. Hi Edmond LPN documented in this encounter [facility] 01-11-2023 Note HNO ID: [id number] Author: Hi Edmnod LPN Service: ? Author Type: ? Type: Progress Notes Filed: 01/11/2023 10:38 AM Note Text: Patient presents for B-12 injection. Denies any problems at this time. Patient instructed on any SE of medication, verbalized understanding and agreed to proceed with treatment. Tolerated injection well. Hi Edmond LPN [facility] 12-28-2022 Note HNO ID: [id number] Author: Hi Edmond LPN Service: ? Author Type: ? Type: Progress Notes Filed: 12/28/2022 10:07 AM Note Text: Patient presents for B-12 injection. Denies any problems at this time. Patient instructed on any SE of medication, verbalized understanding and agreed to proceed with treatment. Tolerated injection well. Hi Edmond LPN [facility] 12-28-2022 History of Present illness Narrative Patient presents for B-12 injection. Denies any problems at this time. Patient instructed on any SE of medication, verbalized understanding and agreed to proceed with treatment. Tolerated injection well. Hi Edmond LPN documented in this encounter [facility] 12-14-2022 Note HNO ID: [id number] Author: Hi Edmond LPN Service: ? Author Type: ? Type: Progress Notes Filed: 12/14/2022 10:12 AM Note Text: Patient presents for B-12 injection. Denies any problems at this time. Patient instructed on any SE of medication, verbalized understanding and agreed to proceed with treatment. Tolerated injection well. Hi Macrosortega ELLIOTT [facility] 12-12-2022 Note HNO ID: [id number] Author: Jeff Pearce, Service: ? Author Type: Physician Type: Progress Notes Filed: 12/12/2022 4:56 PM Note Text: Patient presents with: F/U 3 Month HPI: Amado Collado is a 77 year old female who presents to the office today for review of health conditions. Concerns today: Patient is currently post operative since April from cholecystectomy surgery. Feels that her Iron deficiency, taking OTC iron supplement twice a day with food, not able to eat red meats. Is doing the best she can with food best sources. Does continue to have fatigue. Vitamin B12 deficiency, doesn't tolerate oral supplements, doing well with injections. Still struggling with fatigue symptoms. Ms. Collado has past history of diabetes. Since our last visit she denies excessive thirst or increased frequency of urination, chest pain or dyspnea , new or unusual visual symptoms, and low sugar/hypoglycemic reactions. Depression- no. Follows a diabetic diet most of the time. She is compliant with medication(s) and is tolerating med(s) without any side effects. She reports checking her glucose on a once a day schedule with sugars in the fasting wnl range. Patient's last HgA1C was Hemoglobin A1C (%) Date Value 11/30/2022 6.4 08/29/2022 6.6 02/15/2021 7.3 08/17/2020 7.0 ) Last Ophthalmology exam was within the past 12 months Ms. Collado reports history of hyperlipidemia. Current therapy includes diet and exercise. Denies side effects of muscle weakness or achiness. Her most recent lipid panels are reviewed. Cholesterol, Total (mg/dL) Date Value 11/30/2022 159 02/15/2021 189 HDL Cholesterol (mg/dL) Date Value 11/30/2022 38 02/15/2021 34 LDL Cholesterol (mg/dL) Date Value 11/30/2022 99 02/15/2021 122 Triglyceride (mg/dL) Date Value 11/30/2022 110 02/15/2021 165 Ms. Collado indicates a history of hypertension and states that she is feeling well and denies any symptoms referable to elevated blood pressure. Specifically denies headache, chest pain, palpitations, dyspnea, and peripheral edema. Patient denies any side effects of her medication(s) and is compliant with their regimen. Last 3 Encounter BP Readings: Date: BP: 12/08/2022 116/60 09/05/2022 122/82 05/24/2022 150/78 She watches her diet for sodium, low fat and low cholesterol some of the time. She does not check BP's generally. Amado gets minimal exercise. PAST MEDICAL HISTORY Diagnosis Date Advance care planning 08/24/2021 [facility] Diabetes mellitus, type 2 (HCC) Environmental allergies Hyperlipidemia Hypothyroidism, unspecified Liver failure (HCC) 2004 unsure of cause Migraine headache onset age 7 PAST SURGICAL HISTORY Procedure Laterality Date BREAST BIOPSY NEEDLE LEFT 12/31/2014 x 2, Dr. Ronquillo COLONOSCOPY FLX DX W/COLLJ SPEC WHEN PFRMD 08/25/2003 adenomatous polyp and diverticulosis. [facility] COLONOSCOPY FLX DX W/COLLJ SPEC WHEN PFRMD 09/28/2006 No polyps found. 5 yr recall. [facility]. [facility] COLONOSCOPY FLX DX W/COLLJ SPEC WHEN PFRMD 02/26/2018 Colonoscopy ESOPHAGOGASTRODUODENOSCOPY TRANSORAL DIAGNOSTIC 08/31/2003 Unremarkable, negative biopsies. [facility] ESOPHAGOGASTRODUODENOSCOPY TRANSORAL DIAGNOSTIC 02/26/2018 EGD LAPAROSCOPIC CHOLECYSTECTOMY 04/05/2022 REMV CATARACT EXTRACAP,INSERT LENS Bilateral TONSILLECTOMY HX Social History Tobacco Use Smoking status: Never Smokeless tobacco: Never Vaping Use Vaping Use: Never used Substance Use Topics Alcohol use: No Drug use: No FAMILY HISTORY Adopted: Yes Allergies: ALLERGIES Allergen Reactions Benadryl [Diphenhyd* Swelling Penicillins Shortness of Breath Tcyptgo-Rxg-Asf Red* Contraindication-Medical Surgical History of liver failure Current Meds: glimepiride (AMARYL) 2 mg tabletTake 1 tablet by mouth daily with breakfast.Disp: 90 tabletRfl: 3 losartan (COZAAR) 50 mg tabletTake 1 tablet by mouth once daily.Disp: 90 tabletRfl: 3 Lancets (ONETOUCH ULTRASOFT LANCETS) lancetsUse once daily as directed E11.9Disp: 100 EachRfl: 3 levothyroxine (LEVOXYL) 150 mcg tabletTake 1 tablet by mouth once daily. Take on empty stomach. For Thyroid.Disp: 90 tabletRfl: 3 blood sugar diagnostic (BLOOD GLUCOSE TEST) test stripTest blood sugar(s) 2 times daily. Dx: Type 2 DM - Controlled E11.9 Insulin: NoDisp: 60 StripRfl: 11 famotidine (PEPCID ORAL)Take 10 mg by mouth once daily.Disp: Rfl: lancets (ONE TOUCH DELICA) 33 gaugeTest blood sugar(s) twice daily. Dx: Type 2 DM - Controlled E11. Insulin: NoDisp: 1 EachRfl: 11 blood sugar diagnostic (ONETOUCH ULTRA TEST STRIP) test stripType 2 diabetes, no insulin, well controlled, Use as instructedDisp: 200 EachRfl: 3 Blood-Glucose Meter monitoring kitGlucose Meter of Choice - Kit - Dx: Type 2 DM - Controlled E11.Disp: 1 EachRfl: 0 aspirin, enteric coated (ASPIRIN, ENTERIC COATED) 81 mg EC ta (more content not included)... [facility] 12-12-2022 History of Present illness Narrative Patient presents with: F/U 3 Month HPI: Amado Collado is a 77 year old female who presents to the office today for review of health conditions. Concerns today: Patient is currently post operative since April from cholecystectomy surgery. Feels that her Iron deficiency, taking OTC iron supplement twice a day with food, not able to eat red meats. Is doing the best she can with food best sources. Does continue to have fatigue. Vitamin B12 deficiency, doesn't tolerate oral supplements, doing well with injections. Still struggling with fatigue symptoms. Ms. Collado has past history of diabetes. Since our last visit she denies excessive thirst or increased frequency of urination, chest pain or dyspnea , new or unusual visual symptoms, and low sugar/hypoglycemic reactions. Depression- no. Follows a diabetic diet most of the time. She is compliant with medication(s) and is tolerating med(s) without any side effects. She reports checking her glucose on a once a day schedule with sugars in the fasting wnl range. Patient's last HgA1C was Hemoglobin A1C (%) Date Value 11/30/2022 6.4 08/29/2022 6.6 02/15/2021 7.3 08/17/2020 7.0 ) Last Ophthalmology exam was within the past 12 months Ms. Collado reports history of hyperlipidemia. Current therapy includes diet and exercise. Denies side effects of muscle weakness or achiness. Her most recent lipid panels are reviewed. Cholesterol, Total (mg/dL) Date Value 11/30/2022 159 02/15/2021 189 HDL Cholesterol (mg/dL) Date Value 11/30/2022 38 02/15/2021 34 LDL Cholesterol (mg/dL) Date Value 11/30/2022 99 02/15/2021 122 Triglyceride (mg/dL) Date Value 11/30/2022 110 02/15/2021 165 Ms. Collado indicates a history of hypertension and states that she is feeling well and denies any symptoms referable to elevated blood pressure. Specifically denies headache, chest pain, palpitations, dyspnea, and peripheral edema. Patient denies any side effects of her medication(s) and is compliant with their regimen. Last 3 Encounter BP Readings: Date: BP: 12/08/2022 116/60 09/05/2022 122/82 05/24/2022 150/78 She watches her diet for sodium, low fat and low cholesterol some of the time. She does not check BP's generally. Amado gets minimal exercise. PAST MEDICAL HISTORY Diagnosis Date Advance care planning 08/24/2021 [facility] Diabetes mellitus, type 2 (HCC) Environmental allergies Hyperlipidemia Hypothyroidism, unspecified Liver failure (HCC) 2004 unsure of cause Migraine headache onset age 7 PAST SURGICAL HISTORY Procedure Laterality Date BREAST BIOPSY NEEDLE LEFT 12/31/2014 x 2, Dr. Ronquillo COLONOSCOPY FLX DX W/COLLJ SPEC WHEN PFRMD 08/25/2003 adenomatous polyp and diverticulosis. [facility] COLONOSCOPY FLX DX W/COLLJ SPEC WHEN PFRMD 09/28/2006 No polyps found. 5 yr recall. [facility]. [facility] COLONOSCOPY FLX DX W/COLLJ SPEC WHEN PFRMD 02/26/2018 Colonoscopy ESOPHAGOGASTRODUODENOSCOPY TRANSORAL DIAGNOSTIC 08/31/2003 Unremarkable, negative biopsies. [facility] ESOPHAGOGASTRODUODENOSCOPY TRANSORAL DIAGNOSTIC 02/26/2018 EGD LAPAROSCOPIC CHOLECYSTECTOMY 04/05/2022 REMV CATARACT EXTRACAP,INSERT LENS Bilateral TONSILLECTOMY HX Social History Tobacco Use Smoking status: Never Smokeless tobacco: Never Vaping Use Vaping Use: Never used Substance Use Topics Alcohol use: No Drug use: No FAMILY HISTORY Adopted: Yes Allergies: ALLERGIES Allergen Reactions Benadryl [Diphenhyd* Swelling Penicillins Shortness of Breath Favkjre-Oow-Wzw Red* Contraindication-Medical Surgical History of liver failure Current Meds: glimepiride (AMARYL) 2 mg tablet^Take 1 tablet by mouth daily with breakfast.^Disp: 90 tablet^Rfl: 3 losartan (COZAAR) 50 mg tablet^Take 1 tablet by mouth once daily.^Disp: 90 tablet^Rfl: 3 Lancets (ONETOUCH ULTRASOFT LANCETS) lancets^Use once daily as directed E11.9^Disp: 100 Each^Rfl: 3 levothyroxine (LEVOXYL) 150 mcg tablet^Take 1 tablet by mouth once daily. Take on empty stomach. For Thyroid.^Disp: 90 tablet^Rfl: 3 blood sugar diagnostic (BLOOD GLUCOSE TEST) test strip^Test blood sugar(s) 2 times daily. Dx: Type 2 DM - Controlled E11.9 Insulin: No^Disp: 60 Strip^Rfl: 11 famotidine (PEPCID ORAL)^Take 10 mg by mouth once daily.^Disp: ^Rfl: lancets (ONE TOUCH DELICA) 33 gauge^Test blood sugar(s) twice daily. Dx: Type 2 DM - Controlled E11.9 Insulin: No^Disp: 1 Each^Rfl: 11 blood sugar diagnostic (ONETOUCH ULTRA TEST STRIP) test strip^Type 2 diabetes, no insulin, well controlled, Use as instructed^Disp: 200 Each^Rfl: 3 Blood-Glucose Meter monitoring kit^Glucose Meter of Choice - Kit - Dx: Type 2 DM - Controlled E11.9^Disp: 1 Each^Rfl: 0 aspirin, enteric coated (ASPIRIN, ENTERIC COATED) 81 mg EC tablet^Take 81 mg by mouth once daily.^Disp: ^Rfl: ferrous sulfate 325 mg (65 mg iron) tablet^Take 325 mg by mouth twice daily.^Disp: ^Rfl: fexofenadine (RAYMOND) 180 mg tablet^Take 180 mg by mouth once daily.^Disp: ^Rfl: ONETOUCH DELICA LANCETS 30 gauge^TEST BLOOD SUGAR(S) TEST BLOOD SUGARS TWICE DAILY. DX: TYPE 2 DM - CONTROLLED E11.9 INSULIN: NO Delecia^Disp: 100 Each^Rfl: 3 metFORMIN (GLUCOPHAGE) 500 mg tablet^Take 1 tablet by mouth two times a day with meals. Take 1000 mg PO with breakfast and 1000 mg PO with supper^Disp: ^Rfl: Review of Systems: The remainder of the review of systems is negative. PE: 12/08/22 1000 BP: 116/60 Pulse: 88 Resp: 16 Temp: (!) 35.8 C (96.4 F) TempSrc: Left Tympanic Weight: 82.6 kg (182 lb) Gen: A&O, NAD, non-toxic appearing, Pleasant, cooperative HEENT: NT/AC, PERRLA, EOMs intact b/l, nares clear and patent b/l, pharynx without erythema, exudate or lesions. Uvula midline. MMM Neck: supple, No cervical LAD, no thyromegaly, no carotid bruits CV: RRR, normal S1 and S2, no murmurs, no gallops, no rubs, Pulses 2+ and symmetric in UE and LE b/l Lungs: normal respiratory effort, CTA b/l, no wheezing or rhonchi or rales Abd: soft, overweight, NT, ND, +BS, no hepatosplenomegaly MS: gait stable Neuro: CN II-XII intact b/l, sensation intact. Skin: warm, dry, intact, No rashes or lesions on exposed skin. Foot exam: Monofilament wnl on right and left feet. ASSESSMENT/PLAN: 1. Controlled type 2 diabetes mellitus without complication, without long-term current use of insulin (HCC) - ICD9: 250.00, ICD10: E11.9 (primary diagnosis) - Controlled - decrease metformin to 1000 mg bid - Blood glucose monitoring on a once daily schedule - Counseled on healthy diet and regular exercise - Discussed need for and benefit of weight loss. BMI 32.24 kg/(m^2) - ONETOUCH DELICA LANCETS 30 GAUGE - METFORMIN 500 MG TABLET - HGB A1C - COMP METABOLIC PANEL - CBC 2. Elevated alkaline phosphatase level - ICD9: 790.5, ICD10: R74.8 Stable, chronic. 3. Vitamin B12 deficiency - ICD9: 266.2, ICD10: E53.8 Stable, continue supplements. - VITAMIN B12 BLOOD 4. Hypothyroidism, acquired - ICD9: 244.9, ICD10: E03.9 - Instructed patient on importance of taking on an empty stomach either first thing in the morning or at bedtime. 5. Iron deficiency - ICD9: 280.9, ICD10: E61.1 Continue supplements, recheck labs in 3 months and prn - COMP METABOLIC PANEL - CBC - IRON + TIBC 6. Vitamin D deficiency - ICD9: 268.9, ICD10: E55.9 Continue supplement. Stable. - VITAMIN D 25 HYDROXY 7. Hypertriglyceridemia - ICD9: 272.1, ICD10: E78.1 - Control undetermined, due for labs - Counseled on healthy diet and regular exercise 8. Fatigue, unspecified type - ICD9: 780.79, ICD10: R53.83 Stable 9. Fatty liver - ICD9: 571.8, ICD10: K76.0 - stable, chronic Jeff Pearce DO To ER if develops chest pain, shortness of breath, or severe worsening of symptoms. Discussed risks, benefits, alternatives, and potential side effects of medications. Patient expressed understanding and agreed with the plan. Jeff Pearce DO [address] [place] [address] documented in this encounter [facility] 11-30-2022 Note HNO ID: [id number] Author: Hi Edmond LPN Service: ? Author Type: ? Type: Progress Notes Filed: 11/30/2022 9:17 AM Note Text: Patient presents for B-12 injection. Denies any problems at this time. Patient instructed on any SE of medication, verbalized understanding and agreed to proceed with treatment. Tolerated injection well. Hi Edmond LPN [facility] 11-30-2022 History of Present illness Narrative Patient presents for B-12 injection. Denies any problems at this time. Patient instructed on any SE of medication, verbalized understanding and agreed to proceed with treatment. Tolerated injection well. Hi Edmond LPN documented in this encounter [facility] 11-16-2022 Note HNO ID: [id number] Author: Hi Edmond LPN Service: ? Author Type: ? Type: Progress Notes Filed: 11/16/2022 9:02 AM Note Text: Patient presents for B-12 injection. Denies any problems at this time. Patient instructed on any SE of medication, verbalized understanding and agreed to proceed with treatment. Tolerated injection well. Hi Edmond LPN [facility] 11-16-2022 History of Present illness Narrative Patient presents for B-12 injection. Denies any problems at this time. Patient instructed on any SE of medication, verbalized understanding and agreed to proceed with treatment. Tolerated injection well. Hi Edmond LPN documented in this encounter [facility] 11-03-2022 Note HNO ID: [id number] Author: Hi Edmond LPN Service: ? Author Type: ? Type: Progress Notes Filed: 11/03/2022 8:58 AM Note Text: Patient presents for B-12 injection. Denies any problems at this time. Patient instructed on any SE of medication, verbalized understanding and agreed to proceed with treatment. Tolerated injection well. Hi Edmond LPN [facility] 11-03-2022 History of Present illness Narrative Patient presents for B-12 injection. Denies any problems at this time. Patient instructed on any SE of medication, verbalized understanding and agreed to proceed with treatment. Tolerated injection well. Hi Edmond LPN documented in this encounter [facility] 10-17-2022 Note HNO ID: [id number] Author: Hi Edmond LPN Service: ? Author Type: ? Type: Progress Notes Filed: 10/17/2022 9:15 AM Note Text: Patient presents for B-12 injection. Denies any problems at this time. Patient instructed on any SE of medication, verbalized understanding and agreed to proceed with treatment. Tolerated injection well. Hi Edmond LPN [facility] 10-17-2022 History of Present illness Narrative Patient presents for B-12 injection. Denies any problems at this time. Patient instructed on any SE of medication, verbalized understanding and agreed to proceed with treatment. Tolerated injection well. Hi Edmond LPN documented in this encounter [facility] 10-05-2022 Miscellaneous Notes Left detailed message on voicemail that labs are normal Maribeth Andrade Ma Please inform patient that her recent liver enzyme labs and free t4 thyroid levels are normal Jeff Pearce DO documented in this encounter [facility] 10-02-2022 Note HNO ID: [id number] Author: Hi Edmond LPN Service: ? Author Type: ? Type: Progress Notes Filed: 10/02/2022 9:50 AM Note Text: Patient presents for B-12 injection. Denies any problems at this time. Patient instructed on any SE of medication, verbalized understanding and agreed to proceed with treatment. Tolerated injection well. Hi Edmond LPN [facility] 10-02-2022 History of Present illness Narrative Patient presents for B-12 injection. Denies any problems at this time. Patient instructed on any SE of medication, verbalized understanding and agreed to proceed with treatment. Tolerated injection well. Hi Edmond LPN documented in this encounter [facility] 09-19-2022 Note HNO ID: [id number] Author: Hi Edmond LPN Service: ? Author Type: ? Type: Progress Notes Filed: 09/19/2022 9:32 AM Note Text: Patient presents for B-12 injection. Denies any problems at this time. Patient instructed on any SE of medication, verbalized understanding and agreed to proceed with treatment. Tolerated injection well. Hi Edmond LPN [facility] 09-19-2022 History of Present illness Narrative Patient presents for B-12 injection. Denies any problems at this time. Patient instructed on any SE of medication, verbalized understanding and agreed to proceed with treatment. Tolerated injection well. Hi Edmond LPN documented in this encounter [facility] 09-05-2022 Note HNO ID: [id number] Author: Jeff Pearce, Service: ? Author Type: Physician Type: Progress Notes Filed: 09/05/2022 12:21 PM Note Text: Patient presents with: F/U 3 Month HPI: Amado Collado is a 77 year old female who presents to the office today for review of health conditions. Concerns today: Patient is currently post operative since April from cholecystectomy surgery. Continues to have some intermittent epigastric discomfort and bloating and abd discomfort, not severe. Iron deficiency, taking OTC iron supplement twice a day with food, not able to eat red meats. Is doing the best she can with food best sources. Does continue to have fatigue. Vitamin B12 deficiency, doesn't tolerate oral supplements, doing well with injections. Still struggling with fatigue symptoms. Ms. Collado has past history of diabetes. Since our last visit she denies excessive thirst or increased frequency of urination, chest pain or dyspnea , numbness, tingling or pain in extremities, new or unusual visual symptoms, and low sugar/hypoglycemic reactions. Depression- no. Follows a diabetic diet most of the time. She is compliant with medication(s) and is tolerating med(s) without any side effects. She reports checking her glucose on a once a day schedule with sugars in the <150 range. Patient's last HgA1C was Hemoglobin A1C (%) Date Value 08/29/2022 6.6 05/17/2022 6.0 02/15/2021 7.3 08/17/2020 7.0 ) Last Ophthalmology exam was within the past 12 months Ms. Collado reports history of hyperlipidemia. Current therapy includes diet and exercise. Denies side effects of muscle weakness or achiness. Her most recent lipid panels are reviewed. Cholesterol, Total (mg/dL) Date Value 05/17/2022 155 02/15/2021 189 HDL Cholesterol (mg/dL) Date Value 05/17/2022 34 02/15/2021 34 LDL Cholesterol (mg/dL) Date Value 05/17/2022 89 02/15/2021 122 Triglyceride (mg/dL) Date Value 05/17/2022 161 02/15/2021 165 Ms. Collado indicates a history of hypertension and states that she is feeling well and denies any symptoms referable to elevated blood pressure. Specifically denies headache, chest pain, palpitations, dyspnea, and peripheral edema. Patient denies any side effects of her medication(s) and is compliant with their regimen. Last 3 Encounter BP Readings: Date: BP: 09/05/2022 122/82 05/24/2022 150/78 04/13/2022 138/66 She watches her diet for sodium, low fat and low cholesterol some of the time. She does not check BP's generally. Amado gets minimal exercise. PAST MEDICAL HISTORY Diagnosis Date Advance care planning 08/24/2021 [facility] Diabetes mellitus, type 2 (HCC) Environmental allergies Hyperlipidemia Hypothyroidism, unspecified Liver failure (HCC) 2004 unsure of cause Migraine headache onset age 7 PAST SURGICAL HISTORY Procedure Laterality Date BREAST BIOPSY NEEDLE LEFT 12/31/2014 x 2, Dr. Ronquillo COLONOSCOPY FLX DX W/COLLJ SPEC WHEN PFRMD 08/25/2003 adenomatous polyp and diverticulosis. [facility] COLONOSCOPY FLX DX W/COLLJ SPEC WHEN PFRMD 09/28/2006 No polyps found. 5 yr recall. [facility]. [facility] COLONOSCOPY FLX DX W/COLLJ SPEC WHEN PFRMD 02/26/2018 Colonoscopy ESOPHAGOGASTRODUODENOSCOPY TRANSORAL DIAGNOSTIC 08/31/2003 Unremarkable, negative biopsies. [facility] ESOPHAGOGASTRODUODENOSCOPY TRANSORAL DIAGNOSTIC 02/26/2018 EGD LAPAROSCOPIC CHOLECYSTECTOMY 04/05/2022 REMV CATARACT EXTRACAP,INSERT LENS Bilateral TONSILLECTOMY HX Social History Tobacco Use Smoking status: Never Smokeless tobacco: Never Vaping Use Vaping Use: Never used Substance Use Topics Alcohol use: No Drug use: No FAMILY HISTORY Adopted: Yes Allergies: ALLERGIES Allergen Reactions Benadryl [Diphenhyd* Swelling Penicillins Shortness of Breath Mxbwxcz-Jzu-Puj Red* Contraindication-Medical Surgical History of liver failure Current Meds: glimepiride (AMARYL) 2 mg tabletTake 1 tablet by mouth daily with breakfast.Disp: 90 tabletRfl: 3 losartan (COZAAR) 50 mg tabletTake 1 tablet by mouth once daily.Disp: 90 tabletRfl: 3 Lancets (ONETOUCH ULTRASOFT LANCETS) lancetsUse once daily as directed E11.9Disp: 100 EachRfl: 3 levothyroxine (LEVOXYL) 150 mcg tabletTake 1 tablet by mouth once daily. Take on empty stomach. For Thyroid.Disp: 90 tabletRfl: 3 metFORMIN (GLUCOPHAGE) 500 mg tabletTake 1 tablet by mouth twice daily with meals. Take 1000 mg PO with breakfast and 1500 mg PO with supperDisp: Rfl: blood sugar diagnostic (BLOOD GLUCOSE TEST) test stripTest blood sugar(s) 2 times daily. Dx: Type 2 DM - Controlled E11.9 Insulin: NoDisp: 60 StripRfl: 11 famotidine (PEPCID ORAL)Take 10 mg by mouth once daily.Disp: Rfl: lancets (ONETOUCH DELICA LANCETS) 30 gaugeTEST BLOOD SUGAR(S) TEST BLOOD SUGARS TWICE DAILY. DX: TYPE 2 DM - CONTROLLED E11.9 INSULIN: NO DeleciaDisp: 100 EachRfl: 3 lancets (ONE (more content not included)... [facility] 08-07-2022 Note HNO ID: [id number] Author: Hi Edmond LPN Service: ? Author Type: ? Type: Progress Notes Filed: 08/07/2022 11:25 AM Note Text: Patient presents for B-12 injection. Denies any problems at this time. Patient instructed on any SE of medication, verbalized understanding and agreed to proceed with treatment. Tolerated injection well. Hi Edmond LPN [facility] 08-07-2022 History of Present illness Narrative Patient presents for B-12 injection. Denies any problems at this time. Patient instructed on any SE of medication, verbalized understanding and agreed to proceed with treatment. Tolerated injection well. Hi Edmond LPN documented in this encounter [facility] 07-11-2022 Note HNO ID: [id number] Author: Hi Edmond LPN Service: ? Author Type: ? Type: Progress Notes Filed: 07/11/2022 9:35 AM Note Text: Patient presents for B-12 injection. Denies any problems at this time. Patient instructed on any SE of medication, verbalized understanding and agreed to proceed with treatment. Tolerated injection well. Hi Edmond LPN [facility] 07-11-2022 History of Present illness Narrative Patient presents for B-12 injection. Denies any problems at this time. Patient instructed on any SE of medication, verbalized understanding and agreed to proceed with treatment. Tolerated injection well. Hi Edmond LPN documented in this encounter [facility] 06-12-2022 Note HNO ID: [id number] Author: Hi Edmond LPN Service: ? Author Type: ? Type: Progress Notes Filed: 06/12/2022 9:32 AM Note Text: Patient presents for B-12 injection. Denies any problems at this time. Patient instructed on any SE of medication, verbalized understanding and agreed to proceed with treatment. Tolerated injection well. Hi Edmond LPN [facility] 06-12-2022 History of Present illness Narrative Patient presents for B-12 injection. Denies any problems at this time. Patient instructed on any SE of medication, verbalized understanding and agreed to proceed with treatment. Tolerated injection well. Hi Edmond LPN documented in this encounter [facility] 05-26-2022 Note HNO ID: [id number] Author: Jeff L Pearce, DO Service: ? Author Type: Physician Type: Progress Notes Filed: 05/26/2022 7:29 AM Note Text: Patient presents with: F/U 3 Month HPI: Amado Collado is a 77 year old female who presents to the office today for review of health conditions. Concerns today: Patient is currently post operative in the last month from cholecystectomy surgery Ms. Collado has past history of diabetes. Since our last visit she denies excessive thirst or increased frequency of urination, chest pain or dyspnea , new or unusual visual symptoms, and low sugar/hypoglycemic reactions. Depression- no. Follows a diabetic diet some of the time. She is compliant with medication(s) and is tolerating med(s) without any side effects. She reports checking her glucose on a once a day schedule with sugars in the <150 range. Patient's last HgA1C was Hemoglobin A1C (%) Date Value 05/17/2022 6.0 02/14/2022 6.6 02/15/2021 7.3 08/17/2020 7.0 ) Last Ophthalmology exam was within the past 12 months Ms. Collado reports history of hyperlipidemia. Current therapy includes diet and exercise. Denies side effects of muscle weakness or achiness. Her most recent lipid panels are reviewed. Cholesterol, Total (mg/dL) Date Value 05/17/2022 155 02/15/2021 189 HDL Cholesterol (mg/dL) Date Value 05/17/2022 34 02/15/2021 34 LDL Cholesterol (mg/dL) Date Value 05/17/2022 89 02/15/2021 122 Triglyceride (mg/dL) Date Value 05/17/2022 161 02/15/2021 165 Ms. Collado indicates a history of hypertension and states that she is feeling well and denies any symptoms referable to elevated blood pressure. Specifically denies headache, chest pain, palpitations, dyspnea, and peripheral edema. Patient denies any side effects of her medication(s) and is compliant with their regimen. Last 3 Encounter BP Readings: Date: BP: 05/24/2022 150/78 04/13/2022 138/66 04/10/2022 118/58 She watches her diet for sodium, low fat and low cholesterol some of the time. She does not check BP's generally. Amado gets minimal exercise. PAST MEDICAL HISTORY Diagnosis Date Advance care planning 08/24/2021 [facility] Diabetes mellitus, type 2 (HCC) Environmental allergies Hyperlipidemia Hypothyroidism, unspecified Liver failure (HCC) 2005 unsure of cause Migraine headache onset age 7 PAST SURGICAL HISTORY Procedure Laterality Date BREAST BIOPSY NEEDLE LEFT 12/31/2014 x 2, Dr. Ronquillo COLONOSCOPY FLX DX W/COLLJ SPEC WHEN PFRMD 08/25/2003 adenomatous polyp and diverticulosis. [facility] COLONOSCOPY FLX DX W/COLLJ SPEC WHEN PFRMD 09/28/2006 No polyps found. 5 yr recall. [facility] COLONOSCOPY FLX DX W/COLLJ SPEC WHEN PFRMD 02/26/2018 Colonoscopy ESOPHAGOGASTRODUODENOSCOPY TRANSORAL DIAGNOSTIC 08/31/2003 Unremarkable, negative biopsies. [facility] ESOPHAGOGASTRODUODENOSCOPY TRANSORAL DIAGNOSTIC 02/26/2018 EGD LAPAROSCOPIC CHOLECYSTECTOMY 04/05/2022 REMV CATARACT EXTRACAP,INSERT LENS Bilateral TONSILLECTOMY HX Social History Tobacco Use Smoking status: Never Smokeless tobacco: Never Vaping Use Vaping Use: Never used Substance Use Topics Alcohol use: No Drug use: No FAMILY HISTORY Adopted: Yes Allergies: ALLERGIES Allergen Reactions Benadryl [Diphenhyd* Swelling Penicillins Shortness of Breath Qtpvyrh-Xqr-Bod Red* Contraindication-Medical Surgical History of liver failure Current Meds: famotidine (PEPCID ORAL)Take 10 mg by mouth once daily.Disp: Rfl: lancets (ONETOUCH DELICA LANCETS) 30 gaugeTEST BLOOD SUGAR(S) TEST BLOOD SUGARS TWICE DAILY. DX: TYPE 2 DM - CONTROLLED E11.9 INSULIN: NO DeleciaDisp: 100 EachRfl: 3 glimepiride (AMARYL) 2 mg tabletTake 1 tablet by mouth daily with breakfast.Disp: 90 tabletRfl: 3 lancets (ONE TOUCH DELICA) 33 gaugeTest blood sugar(s) twice daily. Dx: Type 2 DM - Controlled E11.9 Insulin: NoDisp: 1 EachRfl: 11 losartan (COZAAR) 50 mg tabletTake 1 tablet by mouth once daily.Disp: 90 tabletRfl: 3 Lancets (ONETOUCH ULTRASOFT LANCETS) lancetsUse once daily as directed E11.9Disp: 100 EachRfl: 3 (Patient taking differently: Use once daily as directed E11.9) levothyroxine (LEVOXYL) 150 mcg tabletTake 1 tablet by mouth once daily. Take on empty stomach. For Thyroid.Disp: 90 tabletRfl: 3 blood sugar diagnostic (ONETOUCH ULTRA TEST STRIP) test stripType 2 diabetes, no insulin, well controlled, Use as instructedDisp: 200 EachRfl: 3 Blood-Glucose Meter monitoring kitGlucose Meter of Choice - Kit - Dx: Type 2 DM - Controlled E11.9Disp: 1 EachRfl: 0 aspirin, enteric coated (ASPIRIN, ENTERIC COATED) 81 mg EC tabletTake 81 mg by mouth once daily.Disp: Rfl: ferrous sulfate 325 mg (65 mg iron) tabletTake 325 mg by mouth twice daily.Disp: Rfl: fexofenadine (RAYMOND) 180 mg tabletTake 180 mg by mouth once daily.Disp: Rfl: metFORMIN (GLUCOPHAGE) 500 mg ta (more content not included)... [facility] 05-26-2022 History of Present illness Narrative Patient presents with: F/U 3 Month HPI: Amado Collado is a 77 year old female who presents to the office today for review of health conditions. Concerns today: Patient is currently post operative in the last month from cholecystectomy surgery Ms. Collado has past history of diabetes. Since our last visit she denies excessive thirst or increased frequency of urination, chest pain or dyspnea , new or unusual visual symptoms, and low sugar/hypoglycemic reactions. Depression- no. Follows a diabetic diet some of the time. She is compliant with medication(s) and is tolerating med(s) without any side effects. She reports checking her glucose on a once a day schedule with sugars in the <150 range. Patient's last HgA1C was Hemoglobin A1C (%) Date Value 05/17/2022 6.0 02/14/2022 6.6 02/15/2021 7.3 08/17/2020 7.0 ) Last Ophthalmology exam was within the past 12 months Ms. Collado reports history of hyperlipidemia. Current therapy includes diet and exercise. Denies side effects of muscle weakness or achiness. Her most recent lipid panels are reviewed. Cholesterol, Total (mg/dL) Date Value 05/17/2022 155 02/15/2021 189 HDL Cholesterol (mg/dL) Date Value 05/17/2022 34 02/15/2021 34 LDL Cholesterol (mg/dL) Date Value 05/17/2022 89 02/15/2021 122 Triglyceride (mg/dL) Date Value 05/17/2022 161 02/15/2021 165 Ms. Collado indicates a history of hypertension and states that she is feeling well and denies any symptoms referable to elevated blood pressure. Specifically denies headache, chest pain, palpitations, dyspnea, and peripheral edema. Patient denies any side effects of her medication(s) and is compliant with their regimen. Last 3 Encounter BP Readings: Date: BP: 05/24/2022 150/78 04/13/2022 138/66 04/10/2022 118/58 She watches her diet for sodium, low fat and low cholesterol some of the time. She does not check BP's generally. Amado gets minimal exercise. PAST MEDICAL HISTORY Diagnosis Date Advance care planning 08/24/2021 [facility] Diabetes mellitus, type 2 (HCC) Environmental allergies Hyperlipidemia Hypothyroidism, unspecified Liver failure (HCC) 2004 unsure of cause Migraine headache onset age 7 PAST SURGICAL HISTORY Procedure Laterality Date BREAST BIOPSY NEEDLE LEFT 12/31/2014 x 2, Dr. Ronquillo COLONOSCOPY FLX DX W/COLLJ SPEC WHEN PFRMD 08/25/2003 adenomatous polyp and diverticulosis. [facility] COLONOSCOPY FLX DX W/COLLJ SPEC WHEN PFRMD 09/28/2006 No polyps found. 5 yr recall. [facility]. [facility] COLONOSCOPY FLX DX W/COLLJ SPEC WHEN PFRMD 02/26/2018 Colonoscopy ESOPHAGOGASTRODUODENOSCOPY TRANSORAL DIAGNOSTIC 08/31/2003 Unremarkable, negative biopsies. [facility] ESOPHAGOGASTRODUODENOSCOPY TRANSORAL DIAGNOSTIC 02/26/2018 EGD LAPAROSCOPIC CHOLECYSTECTOMY 04/05/2022 REMV CATARACT EXTRACAP,INSERT LENS Bilateral TONSILLECTOMY HX Social History Tobacco Use Smoking status: Never Smokeless tobacco: Never Vaping Use Vaping Use: Never used Substance Use Topics Alcohol use: No Drug use: No FAMILY HISTORY Adopted: Yes Allergies: ALLERGIES Allergen Reactions Benadryl [Diphenhyd* Swelling Penicillins Shortness of Breath Wwmeulg-Qhj-Nhz Red* Contraindication-Medical Surgical History of liver failure Current Meds: famotidine (PEPCID ORAL)^Take 10 mg by mouth once daily.^Disp: ^Rfl: lancets (ONETOUCH DELICA LANCETS) 30 gauge^TEST BLOOD SUGAR(S) TEST BLOOD SUGARS TWICE DAILY. DX: TYPE 2 DM - CONTROLLED E11.9 INSULIN: NO Delecia^Disp: 100 Each^Rfl: 3 glimepiride (AMARYL) 2 mg tablet^Take 1 tablet by mouth daily with breakfast.^Disp: 90 tablet^Rfl: 3 lancets (ONE TOUCH DELICA) 33 gauge^Test blood sugar(s) twice daily. Dx: Type 2 DM - Controlled E11.9 Insulin: No^Disp: 1 Each^Rfl: 11 losartan (COZAAR) 50 mg tablet^Take 1 tablet by mouth once daily.^Disp: 90 tablet^Rfl: 3 Lancets (ONETOUCH ULTRASOFT LANCETS) lancets^Use once daily as directed E11.9^Disp: 100 Each^Rfl: 3 (Patient taking differently: Use once daily as directed E11.9) levothyroxine (LEVOXYL) 150 mcg tablet^Take 1 tablet by mouth once daily. Take on empty stomach. For Thyroid.^Disp: 90 tablet^Rfl: 3 blood sugar diagnostic (ONETOUCH ULTRA TEST STRIP) test strip^Type 2 diabetes, no insulin, well controlled, Use as instructed^Disp: 200 Each^Rfl: 3 Blood-Glucose Meter monitoring kit^Glucose Meter of Choice - Kit - Dx: Type 2 DM - Controlled E11.9^Disp: 1 Each^Rfl: 0 aspirin, enteric coated (ASPIRIN, ENTERIC COATED) 81 mg EC tablet^Take 81 mg by mouth once daily.^Disp: ^Rfl: ferrous sulfate 325 mg (65 mg iron) tablet^Take 325 mg by mouth twice daily.^Disp: ^Rfl: fexofenadine (RAYMOND) 180 mg tablet^Take 180 mg by mouth once daily.^Disp: ^Rfl: metFORMIN (GLUCOPHAGE) 500 mg tablet^Take 1 tablet by mouth twice daily with meals. Take 1000 mg PO with breakfast and 1500 mg PO with supper^Disp: ^Rfl: blood sugar diagnostic (BLOOD GLUCOSE TEST) test strip^Test blood sugar(s) 2 times daily. Dx: Type 2 DM - Controlled E11.9 Insulin: No^Disp: 60 Strip^Rfl: 11 Review of Systems: The remainder of the review of systems is negative. PE: 05/24/22 1610 BP: 150/78 Pulse: 80 Resp: 16 Temp: 36.3 C (97.4 F) TempSrc: Left Tympanic Weight: 80.3 kg (177 lb) Gen: A&O, NAD, non-toxic appearing, Pleasant, cooperative HEENT: NT/AC, PERRLA, EOMs intact b/l, nares clear and patent b/l, pharynx without erythema, exudate or lesions. Uvula midline. MMM Neck: supple, No cervical LAD, no thyromegaly, no carotid bruits CV: RRR, normal S1 and S2, no murmurs, no gallops, no rubs, Pulses 2+ and symmetric in UE and LE b/l Lungs: normal respiratory effort, CTA b/l, no wheezing or rhonchi or rales Abd: soft, overweight, mild incisional pain at healing laparoscopic ports in abd wall, ND, +BS, no hepatosplenomegaly MS: FROM all 4 extremities Neuro: CN II-XII intact b/l Skin: warm, dry, intact, No rashes or lesions on exposed skin. Foot exam: Monofilament wnl on right and left feet. No edema ASSESSMENT/PLAN: 1. Controlled type 2 diabetes mellitus without complication, without long-term current use of insulin (HCC) - ICD9: 250.00, ICD10: E11.9 (primary diagnosis) - Controlled - Continue current medications - Blood glucose monitoring on a once daily schedule - Counseled on healthy diet and regular exercise - HGB A1C - COMP METABOLIC PANEL 2. RUQ abdominal pain - ICD9: 789.01, ICD10: R10.11 - improving s/p cholecystectomy, will be cutting down on Metformin dosing 3. Calculus of gallbladder without cholecystitis without obstruction - ICD9: 574.20, ICD10: K80.20 - improving s/p cholecystectomy, will be cutting down on Metformin dosing 4. Fatty liver - ICD9: 571.8, ICD10: K76.0 - improving s/p cholecystectomy, will be cutting down on Metformin dosing 5. Hypothyroidism, acquired - ICD9: 244.9, ICD10: E03.9 - Instructed patient on importance of taking on an empty stomach either first thing in the morning or at bedtime. Stable - Behavioral intervention and - Continue current medications - TSH BLD 6. Vitamin D deficiency - ICD9: 268.9, ICD10: E55.9 Continue supplement - VITAMIN D 25 HYDROXY 7. Other vitamin B12 deficiency anemia - ICD9: 281.1, ICD10: D51.8 - recheck labs - VITAMIN B12 BLOOD 8. Iron deficiency - ICD9: 280.9, ICD10: E61.1 - recheck labs - IRON + TIBC - CBC Jeff Pearce DO To ER if develops chest pain, shortness of breath, or severe worsening of symptoms. Discussed risks, benefits, alternatives, and potential side effects of medications. Patient expressed understanding and agreed with the plan. Jeff Pearce DO [address] [place] [address] documented in this encounter [facility] 05-15-2022 Note HNO ID: [id number] Author: Hi Edmond LPN Service: ? Author Type: ? Type: Progress Notes Filed: 05/15/2022 9:03 AM Note Text: Patient presents for B-12 injection. Denies any problems at this time. Patient instructed on any SE of medication, verbalized understanding and agreed to proceed with treatment. Tolerated injection well. Hi Edmond LPN [facility] 05-15-2022 History of Present illness Narrative Patient presents for B-12 injection. Denies any problems at this time. Patient instructed on any SE of medication, verbalized understanding and agreed to proceed with treatment. Tolerated injection well. Hi Edmond LPN documented in this encounter [facility] 04-21-2022 Note HNO ID: [id number] Author: Amado Campos PA-C Service: ? Author Type: Physician City Dispatch Supervisor Type: Progress Notes Filed: 04/21/2022 3:28 PM Note Text: FOLLOW UP VISIT - CHOLECYSTECTOMY NAME: Amado Glover [facility] NO.: [id number] DATE OF SERVICE: 04/13/2022 : 1945 REFERRING PHYSICIAN: Jeff Pearce DO Amado is a patient I am following for a complaint of right upper quadrant pain. Dr. Louie performed a laparoscopic cholecystectomy with intraoperative cholangiogram on 04/05/22. Pathology showed: FINAL DIAGNOSIS A. Gallbladder, cholecystectomy: - Active chronic follicular cholecystitis with cholelithiasis. The patient currently notes no major complaints, soreness is improving since her visit earlier this week. her appetite has been good. she denies fever, chills or abdominal pain. she does note some mild incisional discomfort. VITALS: Blood pressure 138/66, pulse 118, temperature 36.4 ?C (97.6 ?F), weight 82.6 kg (182 lb 3.2 oz), SpO2 96 %. On examination, the abdomen is benign. The incisions are healing well without signs of infection or inflammation. Assessment IMPRESSION: status post laparoscopic cholecystectomy with intraoperative cholangiogram PLAN: If the patient notes any problems, she should contact me immediately. she may return to her regular activities as tolerated, with the exception of no lifting greater than 20 pounds for the next 2-3 weeks. The patient is to contact me immediately is she experiences any of her preoperative symptoms. We discussed that occasional right up quadrant symptoms similar to the preoperative complaints can occur in the first couple of weeks post operatively. If this persists beyond the first 2-3 weeks, they should contact our office. Diagnoses: (Z48.89) Aftercare following surgery (primary encounter diagnosis) Return to Clinic: The patient is instructed to follow-up with me as needed. Amado Campos PA-C [facility] 04-21-2022 History of Present illness Narrative FOLLOW UP VISIT - CHOLECYSTECTOMY NAME: Amado Glover [facility] NO.: [id number] DATE OF SERVICE: 04/13/2022 : 1945 REFERRING PHYSICIAN: DO Amado Carreon is a patient I am following for a complaint of right upper quadrant pain. Dr. Louie performed a laparoscopic cholecystectomy with intraoperative cholangiogram on 04/05/22. Pathology showed: FINAL DIAGNOSIS A. Gallbladder, cholecystectomy: - Active chronic follicular cholecystitis with cholelithiasis. The patient currently notes no major complaints, soreness is improving since her visit earlier this week. her appetite has been good. she denies fever, chills or abdominal pain. she does note some mild incisional discomfort. VITALS: Blood pressure 138/66, pulse 118, temperature 36.4 C (97.6 F), weight 82.6 kg (182 lb 3.2 oz), SpO2 96 %. On examination, the abdomen is benign. The incisions are healing well without signs of infection or inflammation. Assessment IMPRESSION: status post laparoscopic cholecystectomy with intraoperative cholangiogram PLAN: If the patient notes any problems, she should contact me immediately. she may return to her regular activities as tolerated, with the exception of no lifting greater than 20 pounds for the next 2-3 weeks. The patient is to contact me immediately is she experiences any of her preoperative symptoms. We discussed that occasional right up quadrant symptoms similar to the preoperative complaints can occur in the first couple of weeks post operatively. If this persists beyond the first 2-3 weeks, they should contact our office. Diagnoses: (Z48.89) Aftercare following surgery (primary encounter diagnosis) Return to Clinic: The patient is instructed to follow-up with me as needed. Amado Campos PA-C documented in this encounter [facility] 04-17-2022 Note HNO ID: [id number] Author: Hi Edmond LPN Service: ? Author Type: ? Type: Progress Notes Filed: 04/17/2022 9:15 AM Note Text: Patient presents for B-12 injection. Denies any problems at this time. Patient instructed on any SE of medication, verbalized understanding and agreed to proceed with treatment. Tolerated injection well. Hi Edmond LPN [facility] 04-13-2022 Instructions Amado Campos PA-C - 04/13/2022 9:33 AM EST -Continue warm compresses as needed for discomfort -OK to begin walking dog in the next few days The following instructions are important for you related to your office visit today with the [facility]. INSTRUCTIONS FOLLOWING YOU RECENT GALLBLADDER SURGERY You should be returning to your regular diet, If you have having persistent issues with tolerating your diet, please contact our office It is not unusual to have pain similar to your gallbladder symptoms for the first 1-2 weeks following surgery. If this persists beyond 2 weeks, contact the office. It is not unusual to have loose stools following surgery. This is usually self limited and related to the antibiotics that were given during your surgical procedure. Fiber supplementation and yogurt with active cultures may help you return to regular bowel activity. If you note loose stools persisting for over 2 weeks, or significant cramping or loose bloody stools, contact the office immediately. You may return to your regular activities. You may drive if you are no longer taking narcotic pain medication. You should perform no lifting greater than 20lbs for the next 2-3 weeks. Contact the office immediately if any of your incisions become increasingly tender, red or have drainage. Again, if you have any difficulties or concerns, contact our office immediately. If you note any additional difficulties, questions, or concerns, you should contact our office immediately @ [phone] and ask to be transferred to the General Surgery department. documented in this encounter [facility] 04-10-2022 Note HNO ID: [id number] Author: Amado Campos PA-C Service: ? Author Type: Physician City Dispatch Supervisor Type: Progress Notes Filed: 04/17/2022 4:48 PM Note Text: FOLLOW UP VISIT - CHOLECYSTECTOMY NAME: Amado Glover [facility] NO.: [id number] DATE OF SERVICE: 04/10/2022 : 1945 REFERRING PHYSICIAN: Jeff Pearce DO Amado is a patient I am following for a complaint of right upper quadrant pain. Dr. Louie performed a laparoscopic cholecystectomy with intraoperative cholangiogram on 04/05/22. Patient noted had been having general post op soreness but was doing well, however, started to fall when getting into bed last night and caught herself, straining her abdomen. Noted more pain around incisions since that time and was concerned. Denies any other injuries. her appetite has been good. she denies fever, chills or abdominal pain. VITALS: Blood pressure 118/58, pulse 117, temperature 36.2 ?C (97.2 ?F), height 160 cm (5' 3 ), weight 83.9 kg (185 lb), SpO2 93 %. On examination, the abdomen is benign. The incisions are healing well without signs of infection or inflammation. Assessment IMPRESSION: status post laparoscopic cholecystectomy with intraoperative cholangiogram PLAN: If the patient notes any problems, she should contact me immediately. she may return to her regular activities as tolerated, with the exception of no lifting greater than 20 pounds for the next 3 weeks. The patient is to contact me immediately is she experiences any of her preoperative symptoms. We discussed that occasional right up quadrant symptoms similar to the preoperative complaints can occur in the first couple of weeks post operatively. If this persists beyond the first 2-3 weeks, they should contact our office. Diagnoses: (G89.18) Post-op pain (primary encounter diagnosis) (Z90.49) S/P laparoscopic cholecystectomy Return to Clinic: The patient is instructed to follow-up with me in 2 days. Amado Campos PA-C [facility] 04-10-2022 Instructions Amado Campos PA-C - 04/10/2022 2:07 PM EST -Heating pad/warm compresses -Aleve short-term for pain -May use abdominal binder when up and ambulating -Call immediately if any worsening symptoms The following instructions are important for you related to your office visit today with the [facility]. INSTRUCTIONS FOLLOWING YOU RECENT GALLBLADDER SURGERY You should be returning to your regular diet, If you have having persistent issues with tolerating your diet, please contact our office It is not unusual to have pain similar to your gallbladder symptoms for the first 1-2 weeks following surgery. If this persists beyond 2 weeks, contact the office. It is not unusual to have loose stools following surgery. This is usually self limited and related to the antibiotics that were given during your surgical procedure. Fiber supplementation and yogurt with active cultures may help you return to regular bowel activity. If you note loose stools persisting for over 2 weeks, or significant cramping or loose bloody stools, contact the office immediately. You should leave the Steri-Strips in place until they fall off. You may return to your regular activities. You may drive if you are no longer taking narcotic pain medication. You should perform no lifting greater than 20lbs for the next 3-4 weeks. Contact the office immediately if any of your incisions become increasingly tender, red or have drainage. Again, if you have any difficulties or concerns, contact our office immediately. If you note any additional difficulties, questions, or concerns, you should contact our office immediately @ [phone] and ask to be transferred to the General Surgery department. documented in this encounter [facility] 04-10-2022 History of Present illness Narrative FOLLOW UP VISIT - CHOLECYSTECTOMY NAME: Amado Glover [facility] NO.: [id number] DATE OF SERVICE: 04/10/2022 : 1945 REFERRING PHYSICIAN: Jeff Pearce DO Amado is a patient I am following for a complaint of right upper quadrant pain. Dr. Louie performed a laparoscopic cholecystectomy with intraoperative cholangiogram on 04/05/22. Patient noted had been having general post op soreness but was doing well, however, started to fall when getting into bed last night and caught herself, straining her abdomen. Noted more pain around incisions since that time and was concerned. Denies any other injuries. her appetite has been good. she denies fever, chills or abdominal pain. VITALS: Blood pressure 118/58, pulse 117, temperature 36.2 C (97.2 F), height 160 cm (5' 3 ), weight 83.9 kg (185 lb), SpO2 93 %. On examination, the abdomen is benign. The incisions are healing well without signs of infection or inflammation. Assessment IMPRESSION: status post laparoscopic cholecystectomy with intraoperative cholangiogram PLAN: If the patient notes any problems, she should contact me immediately. she may return to her regular activities as tolerated, with the exception of no lifting greater than 20 pounds for the next 3 weeks. The patient is to contact me immediately is she experiences any of her preoperative symptoms. We discussed that occasional right up quadrant symptoms similar to the preoperative complaints can occur in the first couple of weeks post operatively. If this persists beyond the first 2-3 weeks, they should contact our office. Diagnoses: (G89.18) Post-op pain (primary encounter diagnosis) (Z90.49) S/P laparoscopic cholecystectomy Return to Clinic: The patient is instructed to follow-up with me in 2 days. 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 Staffing Anesthesiologist: Nohemi Ortiz MD FAITH DOCTOR: Kelly Jordan APRN.FAITH DOCTOR Performed by: ROSEMARY Indications and Patient Condition Indications for airway management: anesthesia and airway protection Preoxygenated: yes anesthesia circuit Patient position: sniffing Method: asleep Cricoid Pressure: No Manual In-Line Stabilization: No Difficult Mask: No Final Airway Details Final airway type: endotracheal airway Final Endotracheal Airway: ETT Cuffed: yes Successful intubation technique: direct laryngoscopy Blade: Landon Blade size: #3 ETT size (mm): 7.0 Measured from: gums Measurement (cm): 21 Placement verified by: chest auscultation Cormack-Lehane Classification: grade I - full view of glottis Number of attempts at approach: 1 Airway not difficult SIGNATURE: Kelly Jordan APRN.FAITH DOCTOR PATIENT NAME: Amado Collado DATE: April 05, 2022 TIME: 7:51 AM CSN: [id number] [facility] 04-03-2022 Instructions Yon Yee APRN.INTELLECTUAL PROPERTY LEGAL ASSISTANT - 04/03/2022 12:07 PM EST PATIENT PREOPERATIVE INSTRUCTIONS [facility]: [phone] -- [address] [facility] [address]. Please read below carefully for your personalized instructions. Dietary Restrictions: - No solid food after midnight. - You may have 12 ounces of clear liquids (water, clear juices such as apple juice or gatorade, carbonated beverages, clear tea, black coffee, jello) until 2 hours before scheduled arrival at facility. - Do not drink any alcohol after midnight the night before your surgery. Medications: Unless instructed differently below, stay on all of your medications until your surgery. Approved medications to take the morning of surgery with a sip of water: famotidine (pepcid), raymond, and levothyroxine (synthoid). Do not take oral diabetic medication day of surgery. Do not take losartan the night before or morning of surgery. If you start any new medications after today's visit, please contact the surgeon's office. Blood Thinning Medications: - Stop NSAIDS (Ibuprofen, Advil, Aleve, Motrin, Celebrex, Mobic, etc.) 7 days before surgery, as directed by your surgeon. - Stop Aspirin 7 days before surgery, as directed by your surgeon. - Stop Vitamin E, ALL multi-vitamins, herbals and dietary supplements 7 days before surgery. - You may take Tylenol (Acetaminophen) or any of your pain medications that do not contain aspirin or NSAIDS as needed. Important Reminders: - Candy, mints, and tobacco products are NOT permitted the morning of surgery. - Hearing aids, dentures and glasses may be worn the morning of surgery. - NO jewelry, body piercings, makeup, hairpins or contacts are to be worn the day of surgery. If you develop symptoms such as a fever, cold, or flu, or have other changes to your health within TWO DAYS of scheduled surgery or the morning of surgery, please contact the surgery center above. Personal Belongings: -Please have photo ID and insurance cards. -If you do not have a copy of advance directives on file with us, please bring a copy with you on the day of surgery. - Leave ALL valuables and money at home or with family members. For Outpatient Procedures: - YOU MUST HAVE A RESPONSIBLE QUARTER INSPECTOR TAKE YOU HOME. A PILLOWCASE CUTTER OR PRODUCTION ESTIMATOR CANNOT BE MADE A RESPONSIBLE QUARTER INSPECTOR. - We recommend that a responsible person stays with you overnight to take care of you. - You cannot stay in a hotel alone after outpatient surgery. You will not be permitted to have your surgery, if you do not have someone to take care of you. Arrival Time for Surgery: - The Surgery Center or hospital where you are having surgery will call the afternoon before surgery (or Sunday for Sunday surgery) with a scheduled arrival time. - If you have not heard by 4 pm, please contact the surgery center above. Please be aware that emergency situations arise, which may delay or change your surgical time. If this happens, we will notify you as soon as possible and regret any inconvenience. If you already have an Advance Directive, please fax a copy to [phone] or email to for it to be added to your chart. If you do not have an Advance Directive, you can find the appropriate form and more information at [email or web address]. We recommend that you complete the Advance Directive form found on the website and bring it with you the day of your surgery. It can be witnessed and scanned into your chart that day. Yon Yee APRN.CNP documented in this encounter [facility] 04-03-2022 History and physical note HISTORY AND PHYSICAL EXAMINATION SERVICE DATE: 04/03/2022 SERVICE TIME: 11:40 AM PRIMARY CARE PHYSICIAN: Jeff Pearec DO REASON FOR VISIT: Amado Collado is a 76 year old female who is scheduled for Procedure(s): LAPAROSCOPIC CHOLECYSTECTOMY WITH GRAMS (N/A) at the request of Dr. Shahriar Cyr for consultation. My final recommendation will be communicated back to the requesting physician by way of shared medical record or letter. Subjective The patient has the following: ACTIVE PROBLEM LIST Essential Hypertension With Goal Blood Pressure Less Than 130/80 Hypothyroidism, Acquired Hypertriglyceridemia Obesity, Class II, Bmi 35-39.9 Right Rotator Cuff Tendinitis Controlled Type 2 Diabetes Mellitus Without Complication, Without Long-Term Current Use of Insulin (Hcc) Fecal Occult Blood Test Positive Blood in Stool Vitamin D Deficiency Vitamin B12 Deficiency Chronic Pain of Right Ankle Bilateral Hip Pain Chronic Midline Low Back Pain Without Sciatica Atypical Squamoproliferative Skin Lesion Osteoarthritis of Back Absolute Anemia Fatigue Malabsorption Syndrome Iron Deficiency Uncontrolled Type 2 Diabetes Mellitus With Hyperglycemia (Hcc) COVID-19 Immunization Status Overdue - COVID-19 VACCINE (3 - Booster for Jonathan series) Overdue since 04/28/2021 03/03/2021 Imm Admin: COVID-19 vaccine (JONATHAN) 08/25/2020 Imm Admin: COVID-19 vaccine (JONATHAN) CHIEF COMPLAINT: Pre-op evaluation HPI: 76 year old female here for pre-op evaluation. Symptoms started about 6 weeks ago and symptoms are a little better. Intermittent abdominal pain, currently rated 2/10, and described as sharp/stabbing/aching. Denies nausea,vomiting, or dysphagia. +GERD on PPI. H/o liver failure patient unsure of the cause. LFT s have been WNL for about 2 years. REVIEW OF SYSTEMS: General: No weight loss, malaise or fevers. Neurological: Positive for: seizures (Last over 10 years ago due to head injury as a child- not on rx). Negative for: headaches, impaired sensorium, multiple sclerosis, Parkinson's disease and strokes. Respiratory: No history of current cough or dyspnea, or pneumonia in the past 6 weeks. No history of respiratory/pulmonary symptoms or problems. Cardiovascular: Positive for: hyperlipidemia and hypertension Negative for: angina, arrhythmia, atrial fibrillation, chest pain, CHF, DVT/PE and murmur/valvular heart disease. GI: See HPI. : No history of dysuria, frequency or incontinence, stones or chronic kidney disease. No difficulty urinating, nocturia > 1 time per night or hematuria. 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 Endocrine: Positive for: diabetes mellitus. Negative for: hypothyroidism. Hematology: Positive for: anemia and bruises/bleeds easily. Oncology: No history of CA metastasis, chemo within 30 days, or radiotherapy within 90 days. No history of oncological symptoms or problems. Psych: No history of psychiatric symptoms or problems. Musculoskeletal: Positive for: joint pain (generlized arthritis) and swelling (intermittent BLE- denies new or worsening symptoms). Skin: Negative for lesions, rash and itching. PAST MEDICAL HISTORY Diagnosis Date Advance care planning 08/24/2021 [facility] Diabetes mellitus, type 2 (HCC) Environmental allergies Hyperlipidemia Hypothyroidism, unspecified Liver failure (HCC) 2005 unsure of cause Migraine headache onset age 7 PAST SURGICAL HISTORY Procedure Laterality Date BREAST BIOPSY NEEDLE LEFT 12/31/2014 x 2, Dr. Ronquillo COLONOSCOPY FLX DX W/COLLJ SPEC WHEN PFRMD 08/25/2003 adenomatous polyp and diverticulosis. [facility] COLONOSCOPY FLX DX W/COLLJ SPEC WHEN PFRMD 09/28/2006 No polyps found. 5 yr recall. [facility] COLONOSCOPY FLX DX W/COLLJ SPEC WHEN PFRMD 02/26/2018 Colonoscopy ESOPHAGOGASTRODUODENOSCOPY TRANSORAL DIAGNOSTIC 08/31/2003 Unremarkable, negative biopsies. [facility] ESOPHAGOGASTRODUODENOSCOPY TRANSORAL DIAGNOSTIC 02/26/2018 EGD REMV CATARACT EXTRACAP,INSERT LENS Bilateral TONSILLECTOMY HX FAMILY HISTORY Adopted: Yes Social History Tobacco Use Smoking status: Never Smokeless tobacco: Never Vaping Use Vaping Use: Never used Substance Use Topics Alcohol use: No Drug use: No Prior to Admission medications as of 04/03/22 1140 Medication Sig Last Dose Taking famotidine (PEPCID ORAL) Take 10 mg by mouth once daily. Taking Yes metFORMIN (GLUCOPHAGE) 500 mg tablet Take 1000 mg PO with breakfast and 1500 mg PO with supper Taking Yes glimepiride (AMARYL) 2 mg tablet Take 1 tablet by mouth daily with breakfast. Taking Yes lancets (ONE TOUCH DELICA) 33 gauge Test blood sugar(s) twice daily. Dx: Type 2 DM - Controlled E11.9 Insulin: No Taking Yes losartan (COZAAR) 50 mg tablet Take 1 tablet by mouth once daily. Taking Yes levothyroxine (LEVOXYL) 150 mcg tablet Take 1 tablet by mouth once daily. Take on empty stomach. For Thyroid. Taking Yes aspirin, enteric coated (ASPIRIN, ENTERIC COATED) 81 mg EC tablet Take 81 mg by mouth once daily. Taking Yes ferrous sulfate 325 mg (65 mg iron) tablet Take 325 mg by mouth twice daily. Taking Yes fexofenadine (RAYMOND) 180 mg tablet Take 180 mg by mouth once daily. Taking Yes lancets (ONETOUCH DELICA LANCETS) 30 gauge TEST BLOOD SUGAR(S) TEST BLOOD SUGARS TWICE DAILY. DX: TYPE 2 DM - CONTROLLED E11.9 INSULIN: NO Delecia Patient not taking: Reported on 03/24/2022 Lancets (ONETOUCH ULTRASOFT LANCETS) lancets Use once daily as directed E11.9 Patient not taking: Reported on 03/24/2022 blood sugar diagnostic (ONETOUCH ULTRA TEST) test strip Dx: Type 2 diabetes uncontrolled, no insulin. TEST BLOOD SUGARS TWICE DAILY Patient not taking: Reported on 03/24/2022 blood sugar diagnostic (ONETOUCH ULTRA TEST) test strip DM2, no insulin, TEST BLOOD SUGARS TWICE DAILY Patient not taking: Reported on 03/24/2022 blood sugar diagnostic (ONETOUCH ULTRA TEST STRIP) test strip Type 2 diabetes, no insulin, well controlled, Use as instructed Blood-Glucose Meter monitoring kit Glucose Meter of Choice - Kit - Dx: Type 2 DM - Controlled E11.9 No medication comments found. ALLERGIES Allergen Reactions Benadryl [Diphenhyd* Swelling Penicillins Shortness of Breath Fwbzjqe-Dyc-Shr Red* Contraindication-Medical Surgical History of liver failure Objective PHYSICAL EXAM: General: alert and oriented and obese. Pertinent negatives noted - not distressed. Skin: normal color, no rash or lesions. HEENT: pupils equal round and pupils reactive to light. Pertinent negatives noted - no carotid bruit. Cardiovascular: regular rate and rhythm, normal S1 and S2, no rub, murmurs, or gallop. Respiratory: normal breath sounds, no wheezes or crackles. Abdomen: soft. Pertinent negatives noted - not tender. Extremities: no deformity, no edema or tenderness, no joint swelling or clubbing. Neurological: normal cognition and motor skills. Gait normal. No weakness or sensory deficit. PAIN ASSESSMENT: Pain Pain Level: 2 Pain Location: Abdomen Description: Sharp Duration Amount of Time: 6 Duration Units: Weeks Frequency: Intermittent Intervention/Comfort measure: Other: See comment Comments: low fat diet VITALS: BP 118/70 Pulse 91 Temp (Src) 97.6 (Temporal) Resp 14 Ht 5' 3 (1.60m) Wt 185 lb (83.9kg) SpO2 97% BMI 32.78 kg/(m^2). Diagnostic tests reviewed for today's visit: Lab Value Units Date High Low HB 12.1 g/dL 02/14/2022 15.5 11.5 HCT 39.3 % 02/14/2022 46.0 36.0 WBC 9.15 k/uL 02/14/2022 11.00 3.70 PLT 366 k/uL 02/14/2022 400 150 NA 140 mmol/L 02/14/2022 144 136 K 4.0 mmol/L 02/14/2022 5.1 3.7 GLUC 160 mg/dL 02/14/2022 99 74 BUN 17 mg/dL 02/14/2022 21 7 CREAT 0.67 mg/dL 02/14/2022 0.96 0.58 PTSEC No results within date range. INR No results within date range. APTT No results within date range. ALT 15 U/L 02/14/2022 38 7 AST 18 U/L 02/14/2022 35 13 TBILI 0.3 mg/dL 02/14/2022 1.3 0.2 TSH 0.234 mIU/L 02/14/2022 4.200 0.270 Lab Value Units Date High Low HCGQT No results within date range. UHCG No results within date range. HCG, BODY* No results within date range. Lab Value Units Date High Low ABORHD No results within date range. ABSCREEN No results within date range. Hemoglobin A1C (%) Date Value 02/14/2022 6.6 11/08/2021 7.3 08/16/2021 7.0 2021 6.9 02/15/2021 7.3 08/17/2020 7.0 02/09/2020 7.3 08/13/2019 7.2 02/10/2019 7.2 No results found for this or any previous visit (from the past 8760 hour(s)). No results found for this or any previous visit (from the past 07286 hour(s)). Assessment Patient has the following medical conditions which may affect salina-operative course: Essential hypertension with goal blood pressure less than 130/80 Assessment: on rx Last 3 Encounter BP Readings: Date: BP: 04/03/2022 118/70 03/24/2022 124/64 02/20/2022 124/60 Hypertriglyceridemia Assessment: Not on rx, follows with PCP. Hypothyroidism, acquired Assessment: on rx Controlled type 2 diabetes mellitus without complication, without long-term current use of insulin (HCC) Assessment: Last A1C on 02/14/22 was 6.6%, on rx. Absolute anemia Assessment: Labs on 02/14/22. Hemoglobin 12.1 %, hematocrit 39.3%. Treated with oral iron. Mccarthy Activity Status Index: METS: Climb a flight of stairs or walk up a hill (5.50 METs) DASI Score: 5.5 Patient denies any chest pain or undue shortness of breath with the above physical activity. Clinical Frailty Scale: 4. Apparently vulnerable STOP-Bang Score: Has or is being treated for high blood pressure Patient over 50 years old Denies snoring loudly Denies feeling tired, fatigued, or sleepy during the daytime Has not been observed to stop breathing or choking/gasping during sleep BMI less than or equal to 35 kg/m^2 Does not have a large neck Non-male patient STOP-Bang Score: 2 [id number] Score: Age: 65-74 Sex: Female CHF history: No Hypertension history: Yes Stroke/TIA/thromboembolism history: No Vascular disease history: No Diabetes history: Yes [id number] Score: 4 ASA Class: 2 ANESTHESIA FINDINGS: Intubation History: No history of difficult intubation. No abnormal airway history Significant Anesthesia Considerations: Per patient in the past she's stopped breathing during 2 surgeries. Unsure why this was. Had surgery at [place] [phone] without issues. potential difficult IV/vein access Airway History: No history of difficult airway No abnormal airway history I - PHYSICAL EVALUATION AIRWAY Patient intubated: No. Tracheostomy tube not present Mallampati: II. TM distance: >3 FB. Neck ROM: full ROM without neurological symptoms. Mouth opening: adequate. Short neck: no. Thick neck: no [place]renas present: no DENTAL Dental findings: missing tooth/teeth. Additional comments: Crowns . II - ANESTHESIA PLAN ASA Score: 2 Anesthetic Plan: general Beta Jose J Monitoring Plan Post Procedure Analgesic Plan Prepared for Surgery: optimally prepared for surgery, pending [see comment]. DOS glucose Per patient she doesn't want fentanyl. CONSULTS: Patient does not require consults for optimization at this time Planned Anesthetic: general The Following Tests/Procedures Have Been Initiated: No orders of the defined types were placed in this encounter. Instructions Given to Patient: Instructions located in the after visit summary. Patient given verbal and written preop instructions and voices comprehension and compliance. SIGNATURE: Yon Yee APRN.CNP PATIENT NAME: Amado Collado DATE: April 03, 2022 TIME: 10:38 AM PAGER/CONTACT #: documented in this encounter [facility] 03-24-2022 Note HNO ID: [id number] Author: Rodriguez Louie MD Service: ? Author Type: Physician Type: Progress Notes Filed: 03/24/2022 5:14 PM Note Text: HISTORY AND PHYSICAL Amado Collado 1945 REFERRING PHYSICIAN: Jeff Pearce DO CHIEF COMPLAINT: Consult (Gallbladder US 03/09/22) HPI: Amado is a 76 year old female with a complaint of right upper quadrant pain. The patient has had symptoms of right upper quadrant pain for statically for some time. She states she has right upper quadrant pain when she bends over or leans on her right upper quadrant. Initially her discussion do not sound to be consistent with biliary colic. Upon further discussions however she notes that she does have pain in her right upper quadrant rating through her back after eating certain foods. She tries to avoid eating fatty foods because she says she has a previous history of fatty liver and liver failure. She is read about gallstones and is worried that this will somehow increase her history of liver difficulties. She believes that her right upper quadrant symptoms are due to biliary colic. After discussion of the risks and benefits she is wishing to have cholecystectomy. The patient also notes a degree of anxiety and that she states she had a previous endoscopy and was sedated and stopped breathing. She states she more recently had an endoscopy performed at [place] where the anesthesiologist told her that she could have based on the way she was given sedation before. There was no notation of any difficulties with sedation this last time and it sounds like she was sedated with propofol. While the patient would like her gallbladder removed she is worried that she will have an anesthesia reaction during gallbladder surgery. The patient is being seen by me today at the request of Dr. Jeff Pearce DO for my opinion and advice regarding known cholelithiasis with questionable but likely biliary colic symptoms. SIGNIFICANT MEDICAL PROBLEMS: PAST MEDICAL HISTORY Diagnosis Date Advance care planning 08/24/2021 [facility] Diabetes mellitus, type 2 (HCC) Environmental allergies Hyperlipidemia Hypothyroidism, unspecified Liver failure (HCC) 2004 unsure of cause Migraine headache onset age 7 OPERATIONS: PAST SURGICAL HISTORY Procedure Laterality Date BREAST BIOPSY NEEDLE LEFT Dec 31 2014 x 2, Dr. Ronquillo COLONOSCOPY FLX DX W/COLLJ SPEC WHEN PFRMD 08/25/2003 adenomatous polyp and diverticulosis. [facility] COLONOSCOPY FLX DX W/COLLJ SPEC WHEN PFRMD 09/28/2006 No polyps found. 5 yr recall. [facility]. [facility] COLONOSCOPY FLX DX W/COLLJ SPEC WHEN PFRMD 02/26/2018 Colonoscopy ESOPHAGOGASTRODUODENOSCOPY TRANSORAL DIAGNOSTIC 08/31/2003 Unremarkable, negative biopsies. [facility] ESOPHAGOGASTRODUODENOSCOPY TRANSORAL DIAGNOSTIC 02/26/2018 EGD TONSILLECTOMY HX CURRENT MEDICATIONS: Current Outpatient Medications Medication Sig Dispense Refill famotidine (PEPCID ORAL) Take 10 mg by mouth once daily. metFORMIN (GLUCOPHAGE) 500 mg tablet Take 1000 mg PO with breakfast and 1500 mg PO with supper 450 tablet 1 glimepiride (AMARYL) 2 mg tablet Take 1 tablet by mouth daily with breakfast. 90 tablet 3 lancets (ONE TOUCH DELICA) 33 gauge Test blood sugar(s) twice daily. Dx: Type 2 DM - Controlled E11.9 Insulin: No 1 Each 11 losartan (COZAAR) 50 mg tablet Take 1 tablet by mouth once daily. 90 tablet 3 levothyroxine (LEVOXYL) 150 mcg tablet Take 1 tablet by mouth once daily. Take on empty stomach. For Thyroid. 90 tablet 3 blood sugar diagnostic (ONETOUCH ULTRA TEST STRIP) test strip Type 2 diabetes, no insulin, well controlled, Use as instructed 200 Each 3 Blood-Glucose Meter monitoring kit Glucose Meter of Choice - Kit - Dx: Type 2 DM - Controlled E11.9 1 Each 0 aspirin, enteric coated (ASPIRIN, ENTERIC COATED) 81 mg EC tablet Take 81 mg by mouth once daily. ferrous sulfate 325 mg (65 mg iron) tablet Take 325 mg by mouth once daily. fexofenadine (RAYMOND) 180 mg tablet Take 180 mg by mouth once daily. lancets (ONETOUCH DELICA LANCETS) 30 gauge TEST BLOOD SUGAR(S) TEST BLOOD SUGARS TWICE DAILY. DX: TYPE 2 DM - CONTROLLED E11.9 INSULIN: NO Delecia (Patient not taking: Reported on 03/24/2022) 100 Each 3 Lancets (ONETOUCH ULTRASOFT LANCETS) lancets Use once daily as directed E11.9 (Patient not taking: Reported on 03/24/2022) 100 Each 3 blood sugar diagnostic (ONETOUCH ULTRA TEST) test strip Dx: Type 2 diabetes uncontrolled, no insulin. TEST BLOOD SUGARS TWICE DAILY (Patient not taking: Reported on 03/24/2022) 100 Strip 3 blood sugar diagnostic (ONETOUCH ULTRA TEST) test strip DM2, no insulin, TEST BLOOD SUGARS TWICE DAILY (Patient not taking: Reported on 03/24/2022) 100 Strip 3 Current Facility-Administered Medications Medication Dose Route Frequency Provider Last Rate Last Admin cyanocobalamin 1,000 mcg injection 1,000 mcg INTRAMUSCU (more content not included)... [facility] 03-24-2022 History of Present illness Narrative HISTORY AND PHYSICAL Amado Collado 1945 REFERRING PHYSICIAN: Jeff Pearce DO CHIEF COMPLAINT: Consult (Gallbladder US 03/09/22) HPI: Amado is a 76 year old female with a complaint of right upper quadrant pain. The patient has had symptoms of right upper quadrant pain for statically for some time. She states she has right upper quadrant pain when she bends over or leans on her right upper quadrant. Initially her discussion do not sound to be consistent with biliary colic. Upon further discussions however she notes that she does have pain in her right upper quadrant rating through her back after eating certain foods. She tries to avoid eating fatty foods because she says she has a previous history of fatty liver and liver failure. She is read about gallstones and is worried that this will somehow increase her history of liver difficulties. She believes that her right upper quadrant symptoms are due to biliary colic. After discussion of the risks and benefits she is wishing to have cholecystectomy. The patient also notes a degree of anxiety and that she states she had a previous endoscopy and was sedated and stopped breathing. She states she more recently had an endoscopy performed at [place] where the anesthesiologist told her that she could have based on the way she was given sedation before. There was no notation of any difficulties with sedation this last time and it sounds like she was sedated with propofol. While the patient would like her gallbladder removed she is worried that she will have an anesthesia reaction during gallbladder surgery. The patient is being seen by me today at the request of Dr. Jeff Pearce DO for my opinion and advice regarding known cholelithiasis with questionable but likely biliary colic symptoms. SIGNIFICANT MEDICAL PROBLEMS: PAST MEDICAL HISTORY Diagnosis Date Advance care planning 08/24/2021 [facility] Diabetes mellitus, type 2 (HCC) Environmental allergies Hyperlipidemia Hypothyroidism, unspecified Liver failure (HCC) 2004 unsure of cause Migraine headache onset age 7 OPERATIONS: PAST SURGICAL HISTORY Procedure Laterality Date BREAST BIOPSY NEEDLE LEFT Dec 31 2014 x 2, Dr. Ronquillo COLONOSCOPY FLX DX W/COLLJ SPEC WHEN PFRMD 08/25/2003 adenomatous polyp and diverticulosis. [facility] COLONOSCOPY FLX DX W/COLLJ SPEC WHEN PFRMD 09/28/2006 No polyps found. 5 yr recall. [facility]. [facility] COLONOSCOPY FLX DX W/COLLJ SPEC WHEN PFRMD 02/26/2018 Colonoscopy ESOPHAGOGASTRODUODENOSCOPY TRANSORAL DIAGNOSTIC 08/31/2003 Unremarkable, negative biopsies. [facility] ESOPHAGOGASTRODUODENOSCOPY TRANSORAL DIAGNOSTIC 02/26/2018 EGD TONSILLECTOMY HX CURRENT MEDICATIONS: Current Outpatient Medications Medication Sig Dispense Refill famotidine (PEPCID ORAL) Take 10 mg by mouth once daily. metFORMIN (GLUCOPHAGE) 500 mg tablet Take 1000 mg PO with breakfast and 1500 mg PO with supper 450 tablet 1 glimepiride (AMARYL) 2 mg tablet Take 1 tablet by mouth daily with breakfast. 90 tablet 3 lancets (ONE TOUCH DELICA) 33 gauge Test blood sugar(s) twice daily. Dx: Type 2 DM - Controlled E11.9 Insulin: No 1 Each 11 losartan (COZAAR) 50 mg tablet Take 1 tablet by mouth once daily. 90 tablet 3 levothyroxine (LEVOXYL) 150 mcg tablet Take 1 tablet by mouth once daily. Take on empty stomach. For Thyroid. 90 tablet 3 blood sugar diagnostic (ONETOUCH ULTRA TEST STRIP) test strip Type 2 diabetes, no insulin, well controlled, Use as instructed 200 Each 3 Blood-Glucose Meter monitoring kit Glucose Meter of Choice - Kit - Dx: Type 2 DM - Controlled E11.9 1 Each 0 aspirin, enteric coated (ASPIRIN, ENTERIC COATED) 81 mg EC tablet Take 81 mg by mouth once daily. ferrous sulfate 325 mg (65 mg iron) tablet Take 325 mg by mouth once daily. fexofenadine (RAYMOND) 180 mg tablet Take 180 mg by mouth once daily. lancets (ONETOUCH DELICA LANCETS) 30 gauge TEST BLOOD SUGAR(S) TEST BLOOD SUGARS TWICE DAILY. DX: TYPE 2 DM - CONTROLLED E11.9 INSULIN: NO Delecia (Patient not taking: Reported on 03/24/2022) 100 Each 3 Lancets (ONETOUCH ULTRASOFT LANCETS) lancets Use once daily as directed E11.9 (Patient not taking: Reported on 03/24/2022) 100 Each 3 blood sugar diagnostic (ONETOUCH ULTRA TEST) test strip Dx: Type 2 diabetes uncontrolled, no insulin. TEST BLOOD SUGARS TWICE DAILY (Patient not taking: Reported on 03/24/2022) 100 Strip 3 blood sugar diagnostic (ONETOUCH ULTRA TEST) test strip DM2, no insulin, TEST BLOOD SUGARS TWICE DAILY (Patient not taking: Reported on 03/24/2022) 100 Strip 3 Current Facility-Administered Medications Medication Dose Route Frequency Provider Last Rate Last Admin cyanocobalamin 1,000 mcg injection 1,000 mcg INTRAMUSCULAR q 4 WEEKS Jeff Pearce, DO 1,000 mcg at 03/20/22 0915 cyanocobalamin 1,000 mcg injection 1,000 mcg INTRAMUSCULAR As Directed Jeff Kentrison, DO 1,000 mcg at 10/20/21 0907 ALLERGIES: Benadryl [Diphenhydramine Hcl], Penicillins, and Xlyprwd-Nen-Ika Reductase Inhibitors PERSONAL HISTORY: Social History Tobacco Use Smoking status: Never Smokeless tobacco: Never Vaping Use Vaping Use: Never used Substance Use Topics Alcohol use: No Drug use: No FAMILY HISTORY: FAMILY HISTORY Adopted: Yes REVIEW OF SYMPTOMS: The review of systems data was entered by the nurse and reviewed by ak Nursing Notes: Sheri Roth LPN 03/24/2022 10:30 AM Signed REVIEW OF SYSTEMS: General: The patient denies fatigue, notes weight loss, notes weight gain, denies feeling hot, and denies feelings of cold. Eyes: The patient denies glaucoma, denies eye injury/surgery, wears glasses or contacts. Ear/Nose/Throat: The patient notes allergies, notes hayfever, denies ear infections, and denies bloody noses. Cardiovascular: The patient denies chest pain, denies heart disease, notes high blood pressure,denies cardiac stent, denies prior heart attack, denies irregular heart beat, notes high cholesterol, denies poor circulation, denies heart failure, other cardiac issues, denies claudication, denies cold feet, denies peripheral arterial stent. Respiratory: The patient denies tuberculosis, denies pneumonia, denies frequent cough, denies pulmonary embolism, denies shortness of breath, and denies coughing up blood. Gastrointestinal: The patient denies difficulty swallowing, denies acid reflux, denies ulcers, denies vomiting, denies jaundice/hepatitis, notes gallbladder problems, denies black or tarry stools, denies hemorrhoids, denies bleeding from rectum, denies diverticulitis, denies constipation, denies diarrhea, denies loss of stool control, and denies hernias. Kidney/Bladder: The patient denies kidney stones, denies urine infections, and denies bloody urine. Skin: The patient denies a history of skin cancer, denies bleeding/changing moles, and denies a history of skin rash. Neurologic: The patient notes a history of epilepsy/convulsions, notes headaches, denies head/spinal injuries, and denies stroke/TIA. Psychiatric: The patient denies psychiatric medications, denies depression, and denies voices, denies substance abuse. Endocrine: The patient notes thyroid disorders, denies diabetes, and denies hormonal problems. Hematologic: The patient denies a history of bruising, denies bleeding, and notes anemia, denies blood clots. Infections: The patient notes a history of measles and mumps, denies rheumatic fever, and denies sexually transmitted diseases. Musculoskeletal: The patient denies back pain/injury, notes back problems, denies sciatica, denies knee/foot trouble, denies arthritis, or denies gout. When was patient's last Mammogram screening? 2021 Last Colonoscopy: 2018 Sheri Roth LPN PHYSICAL EXAMINATION: General: The patient is 76 year old female, well nourished, well hydrated in no acute distress. The patient is oriented to time, place, and person. VITALS: Blood pressure 124/64, pulse 113, temperature 36 C (96.8 F), height 160 cm (5' 3 ), weight 84.4 kg (186 lb), SpO2 98 %. Body mass index is 32.95 kg/m . HEENT: Normal cephalic, ataumatic, pupils are equally round, sclera are anicteric, mucous membranes are moist, oropharynx is clear. Neck has no masses, asymmetry or lymphadenopathy. Thyroid is unremarkable. Respiratory: Clear to auscultation and percussion. Normal respiratory excursion and pattern. Cardiac: Examination is regular rate and rhythm. Abdominal exam: Normoactive bowel sounds, Soft, non tender in the right upper quadrant negative Vigil's sign, with no palpable masses. No hepatosplenomegaly. No palpable hernias. Rectal exam: exam deferred Extremities: no clubbing, cyanosis or edema. No adenopathy. Other: LABORATORY VALUES: As Noted RADIOLOGIC STUDIES: As Noted Above Assessment IMPRESSION: RUQ Pain, Cholelithiasis PLAN: I discussed with my patient the risks and benefits and possible complications of gallbladder surgery. Initially I felt her symptoms were not consistent with biliary colic but the more we discussed biliary colic symptoms the more the patient felt her symptoms were in line with those classic presentations. My plan is to perform a laparoscopic cholecystectomy with intraoperative choleangiogram. The planned surgical procedure was discussed extensively with the patient. The risks, benefits, anticipated outcomes and possible complications were mentioned. My staff has also explained the procedure in understandable terms and the patient was given the option to take printed material concerning the planned procedure. The patient had the opportunity to ask questions concerning the planned procedure. The patient freely consents to the planned procedure. I would like the patient to have an in person visit with [facility] given her concerns and apprehensions about general anesthesia Planned Procedure: LAPAROSCOPIC CHOLECYSTECTOMY WITH INTRAOPERATIVE CHOLEANGIOGRAM - [id number] Planned antibiotic: clindamycin 900mg IVPB condenser winder to OR SCDs needed - Yes City Dispatch Supervisor Needed - Yes Diagnoses: (R10.11) RUQ abdominal pain (K80.20) Calculus of gallbladder without cholecystitis without obstruction (K76.0) Fatty liver My findings have been communicated to Dr. Jeff Pearce DO via shared medical record. This note will be forwarded to Dr. Jeff Pearce DO. Rodriguez Louie MD documented in this encounter [facility] 03-24-2022 Nurse Note REVIEW OF SYSTEMS: General: The patient denies fatigue, notes weight loss, notes weight gain, denies feeling hot, and denies feelings of cold. Eyes: The patient denies glaucoma, denies eye injury/surgery, wears glasses or contacts. Ear/Nose/Throat: The patient notes allergies, notes hayfever, denies ear infections, and denies bloody noses. Cardiovascular: The patient denies chest pain, denies heart disease, notes high blood pressure,denies cardiac stent, denies prior heart attack, denies irregular heart beat, notes high cholesterol, denies poor circulation, denies heart failure, other cardiac issues, denies claudication, denies cold feet, denies peripheral arterial stent. Respiratory: The patient denies tuberculosis, denies pneumonia, denies frequent cough, denies pulmonary embolism, denies shortness of breath, and denies coughing up blood. Gastrointestinal: The patient denies difficulty swallowing, denies acid reflux, denies ulcers, denies vomiting, denies jaundice/hepatitis, notes gallbladder problems, denies black or tarry stools, denies hemorrhoids, denies bleeding from rectum, denies diverticulitis, denies constipation, denies diarrhea, denies loss of stool control, and denies hernias. Kidney/Bladder: The patient denies kidney stones, denies urine infections, and denies bloody urine. Skin: The patient denies a history of skin cancer, denies bleeding/changing moles, and denies a history of skin rash. Neurologic: The patient notes a history of epilepsy/convulsions, notes headaches, denies head/spinal injuries, and denies stroke/TIA. Psychiatric: The patient denies psychiatric medications, denies depression, and denies voices, denies substance abuse. Endocrine: The patient notes thyroid disorders, denies diabetes, and denies hormonal problems. Hematologic: The patient denies a history of bruising, denies bleeding, and notes anemia, denies blood clots. Infections: The patient notes a history of measles and mumps, denies rheumatic fever, and denies sexually transmitted diseases. Musculoskeletal: The patient denies back pain/injury, notes back problems, denies sciatica, denies knee/foot trouble, denies arthritis, or denies gout. When was patient's last Mammogram screening? 2021 Last Colonoscopy: 2018 Sheri Roth LPN documented in this encounter [facility] 03-22-2022 Miscellaneous Notes Called PT LVM to call back and schedule consult to General Surgery Referral placed, please help her schedule appt Jeff Pearce DO Pt informed, verbalized understanding. Pt reports she still has the RUQ abd pain especially with activity or certain movements. Please place consult to general surg. Pt would like called to schedule appt. Nell Perez Please inform patient that her RUQ US shows signs of fatty liver disease as well as 2 cm mobile gallstone in the gallbladder. If she is still having RUQ Abdominal pain, I need her to see the surgeon to review further Jeff Pearce DO Patient asking pcp to review and advise on US results. documented in this encounter [facility] 03-20-2022 Note HNO ID: [id number] Author: Hi Edmond LPN Service: ? Author Type: ? Type: Progress Notes Filed: 03/20/2022 9:15 AM Note Text: Patient presents for B-12 injection. Denies any problems at this time. Patient instructed on any SE of medication, verbalized understanding and agreed to proceed with treatment. Tolerated injection well. Hi Edmond LPN [facility] 03-20-2022 History of Present illness Narrative Patient presents for B-12 injection. Denies any problems at this time. Patient instructed on any SE of medication, verbalized understanding and agreed to proceed with treatment. Tolerated injection well. Hi Edmond LPN documented in this encounter [facility] 03-09-2022 Note HNO ID: [id number] Author: Koki Samuels RDMS Service: ? Author Type: [employer] Type: Progress Notes Filed: 03/09/2022 11:47 AM Note Text: Radiology Service Progress Note PATIENT NAME: Amado Collado DATE OF SERVICE: March 09, 2022 TIME: 11:46 AM PATIENT IDENTITY VERIFICATION COMPLETED USING TWO (2) IDENTIFIERS: Name and Date of confirmed by patient verbally. FALL SCREENING: Has the patient had 2 falls in the last year or 1 fall with injury or currently using an Ambulatory Assistive Device (Walker, Cane, Wheelchair, Crutches, etc.)? No PATIENT GENDER DATA: Female. status: : No status: NO. PATIENT RELEVANT IMPLANT DATA REVIEWED: Not Applicable RADIOLOGY DEPARTMENT: Ultrasound PERIPHERAL IV DATA: Not applicable SIGNED BY: Koki Samuels RDMS March 09, 2022 11:46 AM [facility] 02-21-2022 History of Present illness Narrative Patient presents with: F/U 3 Month HPI: Amado Collado is a 76 year old female who presents to the office today for review of health conditions. Concerns today: Overall doing okay, feels the fatigue is overall stable, which is due to her Iron deficiency and anemia, vitamin D deficiency and vitamin B12 deficiency. Is taking oral iron supplements without difficulty but has to take larger amount due to the malabsorption- she is starting to notice that she feels this may sometimes cause her stomach upset feeling. Also receiving IM vitamin B12 injections now monthly without difficulty. Not able to tolerate oral vitamin D supplement. No blood in stools- does have dark tar like stools since starting iron supplement. Ms. Collado has past history of diabetes. Since our last visit she denies excessive thirst or increased frequency of urination, chest pain or dyspnea , new or unusual visual symptoms, and low sugar/hypoglycemic reactions. Depression- no. Follows a diabetic diet some of the time. She is compliant with medication(s) and is tolerating med(s) without any side effects. She reports checking her glucose on a twice a day schedule with sugars in the fasting <150 range. Patient's last HgA1C was Hemoglobin A1C (%) Date Value 02/14/2022 6.6 11/08/2021 7.3 02/15/2021 7.3 08/17/2020 7.0 ) Last Ophthalmology exam was within the past 12 months Ms. Collado reports history of hyperlipidemia. Current therapy includes diet and exercise. Denies side effects of muscle weakness or achiness. Her most recent lipid panels are reviewed. Cholesterol, Total (mg/dL) Date Value 2021 164 02/15/2021 189 HDL Cholesterol (mg/dL) Date Value 2021 33 02/15/2021 34 LDL Cholesterol (mg/dL) Date Value 2021 99 02/15/2021 122 Triglyceride (mg/dL) Date Value 2021 159 02/15/2021 165 Ms. Collado indicates a history of hypertension and states that she is feeling well and denies any symptoms referable to elevated blood pressure. Specifically denies headache, chest pain, palpitations, dyspnea, and peripheral edema. Patient denies any side effects of her medication(s) and is compliant with their regimen. Last 3 Encounter BP Readings: Date: BP: 02/20/2022 124/60 11/15/2021 124/60 08/24/2021 120/78 She watches her diet for sodium, low fat and low cholesterol some of the time. She does not check BP's generally. Amado gets minimal exercise. PAST MEDICAL HISTORY Diagnosis Date Advance care planning 08/24/2021 MARLEN Diabetes mellitus, type 2 (HCC) Environmental allergies Hyperlipidemia Hypothyroidism, unspecified Liver failure (HCC) 2004 unsure of cause Migraine headache onset age 7 PAST SURGICAL HISTORY Procedure Laterality Date BREAST BIOPSY NEEDLE LEFT Dec 31 2014 x 2, Dr. Ronquillo COLONOSCOPY FLX DX W/COLLJ SPEC WHEN PFRMD 08/25/2003 adenomatous polyp and diverticulosis. [facility] COLONOSCOPY FLX DX W/COLLJ SPEC WHEN PFRMD 09/28/2006 No polyps found. 5 yr recall. [facility]. [facility] COLONOSCOPY FLX DX W/COLLJ SPEC WHEN PFRMD 02/26/2018 Colonoscopy ESOPHAGOGASTRODUODENOSCOPY TRANSORAL DIAGNOSTIC 08/31/2003 Unremarkable, negative biopsies. [facility] ESOPHAGOGASTRODUODENOSCOPY TRANSORAL DIAGNOSTIC 02/26/2018 EGD TONSILLECTOMY HX Social History Tobacco Use Smoking status: Never Smokeless tobacco: Never Substance Use Topics Alcohol use: No Drug use: No FAMILY HISTORY Adopted: Yes Allergies: ALLERGIES Allergen Reactions Benadryl [Diphenhyd* Swelling Penicillins Shortness of Breath Ttrgepf-Uny-Htq Red* Contraindication-Medical Surgical History of liver failure Current Meds: glimepiride (AMARYL) 2 mg tablet^Take 1 tablet by mouth daily with breakfast.^Disp: 90 tablet^Rfl: 3 lancets (ONE TOUCH DELICA) 33 gauge^Test blood sugar(s) twice daily. Dx: Type 2 DM - Controlled E11.9 Insulin: No^Disp: 1 Each^Rfl: 11 losartan (COZAAR) 50 mg tablet^Take 1 tablet by mouth once daily.^Disp: 90 tablet^Rfl: 3 Lancets ([employer] GroupTOUCH ULTRASOFT LANCETS) lancets^Use once daily as directed E11.9^Disp: 100 Each^Rfl: 3 levothyroxine (LEVOXYL) 150 mcg tablet^Take 1 tablet by mouth once daily. Take on empty stomach. For Thyroid.^Disp: 90 tablet^Rfl: 3 blood sugar diagnostic (ONETOUCH ULTRA TEST) test strip^Dx: Type 2 diabetes uncontrolled, no insulin. TEST BLOOD SUGARS TWICE DAILY^Disp: 100 Strip^Rfl: 3 blood sugar diagnostic (ONETOUCH ULTRA TEST) test strip^DM2, no insulin, TEST BLOOD SUGARS TWICE DAILY^Disp: 100 Strip^Rfl: 3 blood sugar diagnostic (ONETOUCH ULTRA TEST STRIP) test strip^Type 2 diabetes, no insulin, well controlled, Use as instructed^Disp: 200 Each^Rfl: 3 Blood-Glucose Meter monitoring kit^Glucose Meter of Choice - Kit - Dx: Type 2 DM - Controlled E11.9^Disp: 1 Each^Rfl: 0 aspirin, enteric coated (ASPIRIN, ENTERIC COATED) 81 mg EC tablet^Take 81 mg by mouth once daily.^Disp: ^Rfl: ferrous sulfate 325 mg (65 mg iron) tablet^Take 325 mg by mouth once daily.^Disp: ^Rfl: fexofenadine (RAYMOND) 180 mg tablet^Take 180 mg by mouth once daily.^Disp: ^Rfl: metFORMIN (GLUCOPHAGE) 500 mg tablet^Take 1000 mg PO with breakfast and 1500 mg PO with supper^Disp: 450 tablet^Rfl: 1 lancets (ONETOUCH DELICA LANCETS) 30 gauge^TEST BLOOD SUGAR(S) TEST BLOOD SUGARS TWICE DAILY. DX: TYPE 2 DM - CONTROLLED E11.9 INSULIN: NO Delecia^Disp: 100 Each^Rfl: 3 Review of Systems: The remainder of the review of systems is negative. PE: 02/20/22 0930 BP: 124/60 Pulse: 80 Resp: 16 Temp: 36.2 C (97.1 F) TempSrc: Left Tympanic Weight: 86.2 kg (190 lb) Gen: A&O, NAD, non-toxic appearing, Pleasant, cooperative HEENT: NT/AC, PERRLA, EOMs intact b/l, nares clear and patent b/l, pharynx without erythema, exudate or lesions. Uvula midline. MMM Neck: supple, No cervical LAD, no thyromegaly, no carotid bruits CV: RRR, normal S1 and S2, no murmurs, no gallops, no rubs, Pulses 2+ and symmetric in UE and LE b/l Lungs: normal respiratory effort, CTA b/l, no wheezing or rhonchi or rales Abd: soft, overweight, NT, ND, +BS, no hepatosplenomegaly MS: FROM all 4 extremities Neuro: CN II-XII intact b/l, strength 5/5 b/l UE and LE, DTRs 2/4 UE and LE, sensation intact. Skin: warm, dry, intact, No rashes or lesions on exposed skin. Foot exam: no edema, normal peripheral pulses ASSESSMENT/PLAN: 1. Controlled type 2 diabetes mellitus without complication, without long-term current use of insulin (HCC) - ICD9: 250.00, ICD10: E11.9 (primary diagnosis) Controlled. - Continue current medications - LANCETS 30 GAUGE - COMP METABOLIC PANEL - CBC - HGB A1C 2. Encounter for screening mammogram for malignant neoplasm of breast - ICD9: V76.12, ICD10: Z12.31 - Set up for mammogram, yearly mammogram recommended - Encouraged monthly BSE - Increase calcium intake with supplements or by diet (goal of 0177-2005 mg/day - Set up for bone mineral density - CAROLINE SCREENING 3. Hypothyroidism, acquired - ICD9: 244.9, ICD10: E03.9 - Instructed patient on importance of taking on an empty stomach either first thing in the morning or at bedtime. Stable - Behavioral intervention and - Continue current medications - TSH BLD - T4 FREE/FREE THYROX 4. Vitamin B12 deficiency - ICD9: 266.2, ICD10: E53.8 Recheck labs in 3 months, stable, continue injections for B12 and continue oral iron supplements. - VITAMIN B12 BLOOD - IRON + TIBC - FERRITIN BLD 5. Other vitamin B12 deficiency anemia - ICD9: 281.1, ICD10: D51.8 Recheck labs in 3 months, stable, continue injections for B12 and continue oral iron supplements. - VITAMIN B12 BLOOD - IRON + TIBC - FERRITIN BLD 6. Vitamin D deficiency - ICD9: 268.9, ICD10: E55.9 Recheck labs in 3 months, stable, continue injections for B12 and continue oral iron supplements. - VITAMIN D 25 HYDROXY 7. Iron deficiency - ICD9: 280.9, ICD10: E61.1 Recheck labs in 3 months, stable, continue injections for B12 and continue oral iron supplements. - IRON + TIBC - FERRITIN BLD 8. Malabsorption syndrome - ICD9: 579.9, ICD10: K90.9 Recheck labs in 3 months, stable, continue injections for B12 and continue oral iron supplements. - IRON + TIBC - FERRITIN BLD 9. Hypertriglyceridemia - ICD9: 272.1, ICD10: E78.1 - to be determined upon return of lab results - Encouraged following a low fat, low cholesterol diet. - Discussed the benefits of regular aerobic exercise and weight loss. - LIPID PANEL BASIC Jeff Pearce DO To ER if develops chest pain, shortness of breath, or severe worsening of symptoms. Discussed risks, benefits, alternatives, and potential side effects of medications. Patient expressed understanding and agreed with the plan. Jeff Pearce DO [address] [place] [address] documented in this encounter [facility] 01-17-2022 History of Present illness Narrative Patient presents for B-12 injection. Denies any problems at this time. Patient instructed on any SE of medication, verbalized understanding and agreed to proceed with treatment. Tolerated injection well. Hi Edmond LPN documented in this encounter [facility] 12-20-2021 History of Present illness Narrative Patient here for B12 injection. Given IM in right arm. Patient tolerated injection well. documented in this encounter [facility] 11-15-2021 History of Present illness Narrative Patient presents with: F/U 3 Month HPI: Amado Collado is a 76 year old female who presents to the office today for review of health conditions. Concerns today Overall doing okay, still struggling with fatigue symptoms. Iron deficiency and anemia and vitamin B12 deficiency. Is taking oral iron supplements without difficulty. Also receiving IM vitamin B12 injections now monthly without difficulty. Not able to tolerate oral vitamin D supplement Ms. Collado has past history of diabetes. Since our last visit she denies excessive thirst or increased frequency of urination, chest pain or dyspnea , new or unusual visual symptoms, and low sugar/hypoglycemic reactions. Follows a diabetic diet some of the time. She is compliant with medication(s) and is tolerating med(s) without any side effects. She reports checking her glucose on a once a day schedule with sugars in the <150 range. Patient's last HgA1C was Hemoglobin A1C (%) Date Value 11/08/2021 7.3 08/16/2021 7.0 02/15/2021 7.3 08/17/2020 7.0 ) Last Ophthalmology exam was within the past 12 months Ms. Collado reports history of hyperlipidemia. Current therapy includes diet and exercise. Denies side effects of muscle weakness or achiness. Her most recent lipid panels are reviewed. Cholesterol, Total (mg/dL) Date Value 2021 164 02/15/2021 189 HDL Cholesterol (mg/dL) Date Value 2021 33 02/15/2021 34 LDL Cholesterol (mg/dL) Date Value 2021 99 02/15/2021 122 Triglyceride (mg/dL) Date Value 2021 159 02/15/2021 165 Ms. Collado indicates a history of hypertension and states that she is feeling well and denies any symptoms referable to elevated blood pressure. Specifically denies headache, chest pain, palpitations, dyspnea, and peripheral edema. Patient denies any side effects of her medication(s) and is compliant with their regimen. Last 3 Encounter BP Readings: Date: BP: 11/15/2021 124/60 08/24/2021 120/78 05/30/2021 110/70 She watches her diet for sodium, low fat and low cholesterol some of the time. She does not check BP's generally. Amado gets sporadic irregular exercise. PAST MEDICAL HISTORY Diagnosis Date Advance care planning 08/24/2021 MARLEN Diabetes mellitus, type 2 (HCC) Environmental allergies Hyperlipidemia Hypothyroidism, unspecified Liver failure (HCC) 2004 unsure of cause Migraine headache onset age 7 PAST SURGICAL HISTORY Procedure Laterality Date BREAST BIOPSY NEEDLE LEFT Dec 31 2014 x 2, Dr. Ronquillo COLONOSCOPY FLX DX W/COLLJ SPEC WHEN PFRMD 08/25/2003 adenomatous polyp and diverticulosis. [facility] COLONOSCOPY FLX DX W/COLLJ SPEC WHEN PFRMD 09/28/2006 No polyps found. 5 yr recall. [facility] COLONOSCOPY FLX DX W/COLLJ SPEC WHEN PFRMD 02/26/2018 Colonoscopy ESOPHAGOGASTRODUODENOSCOPY TRANSORAL DIAGNOSTIC 08/31/2003 Unremarkable, negative biopsies. [facility] ESOPHAGOGASTRODUODENOSCOPY TRANSORAL DIAGNOSTIC 02/26/2018 EGD TONSILLECTOMY HX Social History Tobacco Use Smoking status: Never Smokeless tobacco: Never Substance Use Topics Alcohol use: No Drug use: No FAMILY HISTORY Adopted: Yes Allergies: ALLERGIES Allergen Reactions Benadryl [Diphenhyd* Swelling Penicillins Shortness of Breath Pwpntfx-Gga-Pqu Red* Contraindication-Medical Surgical History of liver failure Current Meds: losartan (COZAAR) 50 mg tablet^Take 1 tablet by mouth once daily.^Disp: 90 tablet^Rfl: 3 Lancets (ONETOUCH ULTRASOFT LANCETS) lancets^Use once daily as directed E11.9^Disp: 100 Each^Rfl: 3 levothyroxine (LEVOXYL) 150 mcg tablet^Take 1 tablet by mouth once daily. Take on empty stomach. For Thyroid.^Disp: 90 tablet^Rfl: 3 metFORMIN (GLUCOPHAGE) 500 mg tablet^Take 1000 mg PO with breakfast and 1500 mg PO with supper^Disp: 450 tablet^Rfl: 1 blood sugar diagnostic (ONETOUCH ULTRA TEST) test strip^Dx: Type 2 diabetes uncontrolled, no insulin. TEST BLOOD SUGARS TWICE DAILY^Disp: 100 Strip^Rfl: 3 blood sugar diagnostic (ONETOUCH ULTRA TEST) test strip^DM2, no insulin, TEST BLOOD SUGARS TWICE DAILY^Disp: 100 Strip^Rfl: 3 lancets (ONETOUCH DELICA LANCETS) 30 gauge^TEST BLOOD SUGAR(S) TEST BLOOD SUGARS TWICE DAILY. DX: TYPE 2 DM - CONTROLLED E11.9 INSULIN: NO Delecia^Disp: 100 Each^Rfl: 3 blood sugar diagnostic (ONETOUCH ULTRA TEST STRIP) test strip^Type 2 diabetes, no insulin, well controlled, Use as instructed^Disp: 200 Each^Rfl: 3 Blood-Glucose Meter monitoring kit^Glucose Meter of Choice - Kit - Dx: Type 2 DM - Controlled E11.9^Disp: 1 Each^Rfl: 0 aspirin, enteric coated (ASPIRIN, ENTERIC COATED) 81 mg EC tablet^Take 81 mg by mouth once daily.^Disp: ^Rfl: ferrous sulfate 325 mg (65 mg iron) tablet^Take 325 mg by mouth once daily.^Disp: ^Rfl: fexofenadine (RAYMOND) 180 mg tablet^Take 180 mg by mouth once daily.^Disp: ^Rfl: glimepiride (AMARYL) 2 mg tablet^Take 1 tablet by mouth daily with breakfast.^Disp: 90 tablet^Rfl: 3 lancets (ONE TOUCH DELICA) 33 gauge^Test blood sugar(s) twice daily. Dx: Type 2 DM - Controlled E11.9 Insulin: No^Disp: 1 Each^Rfl: 11 Review of Systems: The remainder of the review of systems is negative. PE: 11/15/21 0911 BP: 124/60 Pulse: 88 Resp: 16 Temp: (!) 35.7 C (96.3 F) TempSrc: Left Tympanic Weight: 87.5 kg (193 lb) Gen: A&O, NAD, non-toxic appearing, Pleasant, cooperative HEENT: NT/AC, PERRLA, EOMs intact b/l, nares clear and patent b/l, pharynx without erythema, exudate or lesions. MMM, Uvula midline. Neck: supple, No cervical LAD, no thyromegaly, no carotid bruits CV: RRR, normal S1 and S2, no murmurs, no gallops, no rubs, Pulses 2+ and symmetric in UE and LE b/l Lungs: normal respiratory effort, CTA b/l, no wheezing or rhonchi or rales Abd: soft, overweight, NT, ND, +BS, no hepatosplenomegaly MS: FROM all 4 extremities Neuro: CN II-XII intact b/l Skin: warm, dry, intact, No rashes or lesions on exposed skin. Foot exam: no edema, normal pulses ASSESSMENT/PLAN: 1. Uncontrolled type 2 diabetes mellitus with hyperglycemia (HCC) - ICD9: 250.02, ICD10: E11.65 (primary diagnosis) uncontrolled worsening control - Continue current medications - Add glimepiride (Amaryl) - Blood glucose monitoring on a once a day schedule - Encouraged regular aerobic exercise and weight loss - GLIMEPIRIDE 2 MG TABLET - GLIMEPIRIDE 2 MG TABLET 2. Vitamin B12 deficiency - ICD9: 266.2, ICD10: E53.8 Continue same injections IM monthly, levels are improving. - CYANOCOBALAMIN (VIT B-12) 1,000 MCG/ML INJECTION SOLUTION - VITAMIN B12 BLOOD 3. Controlled type 2 diabetes mellitus without complication, without long-term current use of insulin (HCC) - ICD9: 250.00, ICD10: E11.9 See above, need for better controle 4. Hypothyroidism, acquired - ICD9: 244.9, ICD10: E03.9 - Instructed patient on importance of taking on an empty stomach either first thing in the morning or at bedtime. - continue current dose of Synthroid Stable - Behavioral intervention - COMP METABOLIC PANEL - TSH BLD - T4 FREE/FREE THYROX 5. Other vitamin B12 deficiency anemia - ICD9: 281.1, ICD10: D51.8 Continue same treatment, no new symptoms - COMP METABOLIC PANEL 6. Iron deficiency - ICD9: 280.9, ICD10: E61.1 - increase dose of oral iron as d/w her today - IRON + TIBC - CBC - COMP METABOLIC PANEL 7. Vitamin D deficiency - ICD9: 268.9, ICD10: E55.9 - continue increased amount in diet, not able to tolerate supplement Jeff Pearce DO To ER if develops chest pain, shortness of breath, or severe worsening of symptoms. Discussed risks, benefits, alternatives, and potential side effects of medications. Patient expressed understanding and agreed with the plan. Jeff Pearce DO [address] [place] [address] documented in this encounter [facility] 10-20-2021 History of Present illness Narrative Patient presents for B-12 injection. Denies any problems at this time. Patient instructed on any SE of medication, verbalized understanding and agreed to proceed with treatment. Tolerated injection well. Jael Connolly LPN documented in this encounter [facility] 07-18-2021 History of Present illness Narrative Patient presents for B-12 injection. Denies any problems at this time. Patient instructed on any SE of medication, verbalized understanding and agreed to proceed with treatment. Tolerated injection well. Hi Edmond LPN documented in this encounter [facility] 07-04-2021 History of Present illness Narrative Patient presents for B-12 injection. Denies any problems at this time. Patient instructed on any SE of medication, verbalized understanding and agreed to proceed with treatment. Tolerated injection well. Hi Edmond LPN documented in this encounter [facility] 06-20-2021 History of Present illness Narrative Patient presents for B-12 injection. Denies any problems at this time. Patient instructed on any SE of medication, verbalized understanding and agreed to proceed with treatment. Tolerated injection well. Hi Edmond LPN documented in this encounter [facility] 06-06-2021 History of Present illness Narrative Patient presents for B-12 injection. Denies any problems at this time. Patient instructed on any SE of medication, verbalized understanding and agreed to proceed with treatment. Tolerated injection well. Hi Edmond LPN documented in this encounter [facility] 05-31-2021 History of Present illness Narrative Patient presents with: Follow Up: 3 months HPI: Amado Collado is a 76 year old female who presents to the office today for review of health conditions. Concerns today: had an episode of food allergy reaction in Dec, symptoms are improved. Was seen at [facility] and given rx for prednisone and zofran. Prednisone caused her to have very elevated blood glucose readings and a headache- only too this for 2 days- glucose in the 300s. has a lot of food intolerances and limitations- tries to adhere to a low fat low sugar/carb diet. Tries to avoid processed foods as much as able as well. Has had a lot of fatigue symptoms, pallor, secondary to her iron deficiency. Is taking 2 iron supplements daily without any side effects. Wants to try to continue to supplement orally instead of having IV iron infusion. Vitamin B12 deficiency, has struggled to take vitamins due to intolerance/lack of adequate absorption. Willing to start on IM injections to help with energy, anemia, malabsorption concerns. Ms. Collado has past history of diabetes. Since our last visit she denies excessive thirst or increased frequency of urination, chest pain or dyspnea , numbness, tingling or pain in extremities, new or unusual visual symptoms and low sugar/hypoglycemic reactions. Follows a diabetic diet some of the time. She is compliant with medication(s) and is tolerating med(s) without any side effects. She reports checking her glucose on a once a day schedule with sugars in the <200 range. Patient's last HgA1C was Hemoglobin A1C (%) Date Value 2021 6.9 02/15/2021 7.3 08/17/2020 7.0 ) Last Ophthalmology exam was within the past 12 months Ms. Collado reports history of hyperlipidemia. Current therapy includes diet and exercise. Denies side effects of muscle weakness or achiness. Her most recent lipid panels are reviewed. Cholesterol, Total (mg/dL) Date Value 2021 164 02/15/2021 189 HDL Cholesterol (mg/dL) Date Value 2021 33 02/15/2021 34 LDL Cholesterol (mg/dL) Date Value 2021 99 02/15/2021 122 Triglyceride (mg/dL) Date Value 2021 159 02/15/2021 165 Ms. Collado indicates a history of hypertension and states that she is feeling well and denies any symptoms referable to elevated blood pressure. Specifically denies headache, chest pain, palpitations, dyspnea and peripheral edema. Patient denies any side effects of her medication(s) and is compliant with their regimen. Last 3 Encounter BP Readings: Date: BP: 05/30/2021 110/70 02/22/2021 130/80 12/23/2020 140/72 She watches her diet for sodium, low fat and low cholesterol some of the time. She does not check BP's generally. Amado gets minimal exercise. PAST MEDICAL HISTORY Diagnosis Date Diabetes mellitus, type 2 (HCC) Environmental allergies Hyperlipidemia Hypothyroidism, unspecified Liver failure (HCC) 2004 unsure of cause Migraine headache onset age 7 PAST SURGICAL HISTORY Procedure Laterality Date BREAST BIOPSY NEEDLE LEFT Dec 31 2014 x 2, Dr. Ronquillo COLONOSCOPY FLX DX W/COLLJ SPEC WHEN PFRMD 08/25/2003 adenomatous polyp and diverticulosis. [facility] COLONOSCOPY FLX DX W/COLLJ SPEC WHEN PFRMD 09/28/2006 No polyps found. 5 yr recall. [facility]a. [facility] COLONOSCOPY FLX DX W/COLLJ SPEC WHEN PFRMD 02/26/2018 Colonoscopy ESOPHAGOGASTRODUODENOSCOPY TRANSORAL DIAGNOSTIC 08/31/2003 Unremarkable, negative biopsies. [facility] ESOPHAGOGASTRODUODENOSCOPY TRANSORAL DIAGNOSTIC 02/26/2018 EGD TONSILLECTOMY HX Social History Tobacco Use Smoking status: Never Smoker Smokeless tobacco: Never Used Substance Use Topics Alcohol use: No Drug use: No FAMILY HISTORY Adopted: Yes Allergies: ALLERGIES Allergen Reactions Benadryl [Diphenhyd* Swelling Penicillins Shortness of Breath Ahouese-Uqx-Wpj Red* Contraindication-Medical Surgical History of liver failure Current Meds: blood sugar diagnostic (ONETOUCH ULTRA TEST) test strip DM2, no insulin, TEST BLOOD SUGARS TWICE DAILY lancets (ONETOUCH DELICA LANCETS) 30 gauge TEST BLOOD SUGAR(S) TEST BLOOD SUGARS TWICE DAILY. DX: TYPE 2 DM - CONTROLLED E11.9 INSULIN: NODelecia metFORMIN (GLUCOPHAGE) 500 mg tablet Take 1000 mg PO with breakfast and 1500 mg PO with supper lancets (ONE TOUCH DELICA) 33 gauge Test blood sugar(s) twice daily. Dx: Type 2 DM - Controlled E11.9 Insulin: No losartan (COZAAR) 50 mg tablet Take 1 tablet by mouth once daily. Lancets (ONETOUCH ULTRASOFT LANCETS) lancets Use once daily as directed E11.9 levothyroxine (LEVOXYL) 150 mcg tablet Take 1 tablet by mouth once daily. Take on empty stomach. For Thyroid. blood sugar diagnostic (ONETOUCH ULTRA TEST STRIP) test strip Type 2 diabetes, no insulin, well controlled, Use as instructed blood sugar diagnostic (ONETOUCH ULTRA TEST) test strip TEST BLOOD SUGARS TWICE DAILY aspirin, enteric coated (ASPIRIN, ENTERIC COATED) 81 mg EC tablet Take 81 mg by mouth once daily. ferrous sulfate 325 mg (65 mg iron) tablet Take 325 mg by mouth once daily. SUMAtriptan (IMITREX) 100 mg tablet Take 100 mg by mouth as needed. Blood-Glucose Meter monitoring kit Glucose Meter of Choice - Kit - Dx: Type 2 DM - Controlled E11.9 Chlorhexidine Gluconate (PERIDEX) 0.12 % solution Use 15 mL as instructed twice daily. fexofenadine (RAYMOND) 180 mg tablet Take 180 mg by mouth once daily. Review of Systems: The remainder of the review of systems is negative. PE: 05/30/21 0915 BP: 110/70 Pulse: 80 Resp: 20 Temp: 36.1 C (97 F) TempSrc: Right Tympanic Weight: 92.1 kg (203 lb) Gen: A&O, NAD, non-toxic appearing, Pleasant, cooperative HEENT: NT/AC, PERRLA, EOMs intact b/l, nares clear and patent b/l, pharynx without erythema, exudate or lesions. Uvula midline. MMM Neck: supple, No cervical LAD, no thyromegaly, no carotid bruits CV: RRR, normal S1 and S2, no murmurs, no gallops, no rubs, Pulses 2+ and symmetric in UE and LE b/l Lungs: normal respiratory effort, CTA b/l, no wheezing or rhonchi or rales Abd: soft, NT, ND, +BS, no hepatosplenomegaly MS: FROM all 4 extremities Neuro: CN II-XII intact b/l Skin: warm, dry, intact, No rashes or lesions on exposed skin. Scattered seborrheic keratoses Foot exam: Monofilament wnl on right and left feet. No edema, normal pulses ASSESSMENT/PLAN: 1. Controlled type 2 diabetes mellitus without complication, without long-term current use of insulin (HCC) - ICD9: 250.00, ICD10: E11.9 (primary diagnosis) improved control - Continue current medications - Blood glucose monitoring on a twice a day schedule - LANCETS 30 GAUGE - HGB A1C 2. Vitamin B12 deficiency - ICD9: 266.2, ICD10: E53.8 - start on vitamin B12 injections IM and recheck levels in 2-3 months as ordered. Has anemia secondary to iron deficiency and vitamin B12 deficiency, doesn't do well with oral supplements. - CYANOCOBALAMIN (VIT B-12) 1,000 MCG/ML INJECTION SOLUTION - VITAMIN B12 BLOOD - COMP METABOLIC PANEL 3. Malabsorption syndrome - ICD9: 579.9, ICD10: K90.9 - start on vitamin B12 injections IM and recheck levels in 2-3 months as ordered. Has anemia secondary to iron deficiency and vitamin B12 deficiency, doesn't do well with oral supplements. - CYANOCOBALAMIN (VIT B-12) 1,000 MCG/ML INJECTION SOLUTION - VITAMIN B12 BLOOD - COMP METABOLIC PANEL 4. Other vitamin B12 deficiency anemia - ICD9: 281.1, ICD10: D51.8 - start on vitamin B12 injections IM and recheck levels in 2-3 months as ordered. Has anemia secondary to iron deficiency and vitamin B12 deficiency, doesn't do well with oral supplements. - CYANOCOBALAMIN (VIT B-12) 1,000 MCG/ML INJECTION SOLUTION - VITAMIN B12 BLOOD 5. Fatigue, unspecified type - ICD9: 780.79, ICD10: R53.83 - start on vitamin B12 injections IM and recheck levels in 2-3 months as ordered. Has anemia secondary to iron deficiency and vitamin B12 deficiency, doesn't do well with oral supplements. - CYANOCOBALAMIN (VIT B-12) 1,000 MCG/ML INJECTION SOLUTION - VITAMIN B12 BLOOD 6. Other iron deficiency anemia - ICD9: 280.8, ICD10: D50.8 - start on vitamin B12 injections IM and recheck levels in 2-3 months as ordered. Has anemia secondary to iron deficiency and vitamin B12 deficiency, doesn't do well with oral supplements. Increase dose of oral iron supplements, change thyroid hormone medication to PM dosing - COMP METABOLIC PANEL - IRON + TIBC 7. Hypothyroidism, acquired - ICD9: 244.9, ICD10: E03.9 - start on vitamin B12 injections IM and recheck levels in 2-3 months as ordered. Has anemia secondary to iron deficiency and vitamin B12 deficiency, doesn't do well with oral supplements. Increase dose of oral iron supplements, change thyroid hormone medication to PM dosing 8. Hypertriglyceridemia - ICD9: 272.1, ICD10: E78.1 - suboptimal control - Encouraged following a low fat, low cholesterol diet. - Discussed the benefits of regular aerobic exercise and weight loss. Jeff Pearce DO To ER if develops chest pain, shortness of breath, or severe worsening of symptoms. Discussed risks, benefits, alternatives, and potential side effects of medications. Patient expressed understanding and agreed with the plan. Jeff Pearce DO [address] [place] [address] documented in this encounter [facility] 05-25-2021 Miscellaneous Notes Patient notified and verbalized understanding. Pt asking for Caroline results. Faxed request to [facility] & will place results on PCP desk when received. Nell Bhakta Ma Please let Amado know that we've received her lab results. Her A1C has improved a bit. Triglycerides are still a bit elevated, HDL (good) cholesterol still a bit low. Vitamin B12 level a little low Hemoglobin is a little low, but suspect this is likely r/t her iron also being low. None of these results is acutely concerning, and she can discuss these in more detail at her upcoming appointment with Dr. Pearce. Caren Greenberg APRN.BLAYNE documented in this encounter [facility] 05-18-2021 Miscellaneous Notes Order faxed to [facility]. Pebbles Molina LPN Order signed. Please fax. Jahaira Harrison APRN.BLAYNE Please file orders. Needs faxed to [facility]. Pebbles Molina LPN documented in this encounter [facility] documented as of this encounter (statuses as of 05/18/2021) [facility] History of Past illness Narrative* Problem Noted Date Resolved Date Obesity, Class III, BMI >= 40 02/26/2018 Diabetes mellitus type 2, controlled, without co mplications 05/17/2015 08/23/2020 documented as of this encounter (statuses as of 05/31/2021) [facility] History of Past illness Narrative* Problem Noted Date Resolved Date Obesity, Class III, BMI >= 40 02/26/2018 Diabetes mellitus type 2, controlled, without co mplications 05/17/2015 08/23/2020 documented as of this encounter (statuses as of 06/06/2021) [facility] History of Past illness Narrative* Problem Noted Date Resolved Date Obesity, Class III, BMI >= 40 02/26/2018 Diabetes mellitus type 2, controlled, without co mplications 05/17/2015 08/23/2020 documented as of this encounter (statuses as of 06/15/2021) [facility] History of Past illness Narrative* Problem Noted Date Resolved Date Obesity, Class III, BMI >= 40 02/26/2018 Diabetes mellitus type 2, controlled, without co mplications 05/17/2015 08/23/2020 documented as of this encounter (statuses as of 06/20/2021) [facility] History of Past illness Narrative* Problem Noted Date Resolved Date Obesity, Class III, BMI >= 40 02/26/2018 Diabetes mellitus type 2, controlled, without co mplications 05/17/2015 08/23/2020 documented as of this encounter (statuses as of 07/04/2021) [facility] History of Past illness Narrative* Problem Noted Date Resolved Date Obesity, Class III, BMI >= 40 02/26/2018 Diabetes mellitus type 2, controlled, without co mplications 05/17/2015 08/23/2020 documented as of this encounter (statuses as of 07/18/2021) [facility] History of Past illness Narrative* Problem Noted Date Resolved Date Obesity, Class III, BMI >= 40 02/26/2018 Peripheral neuropathy 01/21/2018 08/22/2021 Diabetes mellitus type 2, controlled, without co mplications 05/17/2015 08/23/2020 documented as of this encounter (statuses as of 10/20/2021) [facility] History of Past illness Narrative* Problem Noted Date Resolved Date Obesity, Class III, BMI >= 40 02/26/2018 Peripheral neuropathy 01/21/2018 08/22/2021 Diabetes mellitus type 2, controlled, without co mplications 05/17/2015 08/23/2020 documented as of this encounter (statuses as of 11/15/2021) [facility] History of Past illness Narrative* Problem Noted Date Resolved Date Obesity, Class III, BMI >= 40 02/26/2018 Peripheral neuropathy 01/21/2018 08/22/2021 Diabetes mellitus type 2, controlled, without co mplications 05/17/2015 08/23/2020 documented as of this encounter (statuses as of 12/20/2021) [facility] of Past illness Narrative* Problem Noted Date Resolved Date Obesity, Class III, BMI >= 40 02/26/2018 Peripheral neuropathy 01/21/2018 08/22/2021 Diabetes mellitus type 2, controlled, without co mplications 05/17/2015 08/23/2020 documented as of this encounter (statuses as of 01/17/2022) [facility] of Past illness Narrative* Problem Noted Date Resolved Date Obesity, Class III, BMI >= 40 02/26/2018 Peripheral neuropathy 01/21/2018 08/22/2021 Diabetes mellitus type 2, controlled, without co mplications 05/17/2015 08/23/2020 documented as of this encounter (statuses as of 02/21/2022) [facility] History of Past illness Narrative* Problem Noted Date Resolved Date Obesity, Class III, BMI >= 40 02/26/2018 Peripheral neuropathy 01/21/2018 08/22/2021 Diabetes mellitus type 2, controlled, without co mplications 05/17/2015 08/23/2020 documented as of this encounter (statuses as of 03/20/2022) [facility] of Past illness Narrative* Problem Noted Date Resolved Date Obesity, Class III, BMI >= 40 02/26/2018 Peripheral neuropathy 01/21/2018 08/22/2021 Diabetes mellitus type 2, controlled, without co mplications 05/17/2015 08/23/2020 documented as of this encounter (statuses as of 03/22/2022) [facility] of Past illness Narrative* Problem Noted Date Resolved Date Obesity, Class III, BMI >= 40 02/26/2018 Peripheral neuropathy 01/21/2018 08/22/2021 Diabetes mellitus type 2, controlled, without co mplications 05/17/2015 08/23/2020 documented as of this encounter (statuses as of 03/25/2022) [facility] of Past illness Narrative* Problem Noted Date Resolved Date Obesity, Class III, BMI >= 40 02/26/2018 Peripheral neuropathy 01/21/2018 08/22/2021 Diabetes mellitus type 2, controlled, without co mplications 05/17/2015 08/23/2020 documented as of this encounter (statuses as of 04/03/2022) [facility] of Past illness Narrative* Problem Noted Date Resolved Date Obesity, Class III, BMI >= 40 02/26/2018 Peripheral neuropathy 01/21/2018 08/22/2021 Diabetes mellitus type 2, controlled, without co mplications 05/17/2015 08/23/2020 documented as of this encounter (statuses as of 04/18/2022) [facility] of Past illness Narrative* Problem Noted Date Resolved Date Obesity, Class III, BMI >= 40 02/26/2018 Peripheral neuropathy 01/21/2018 08/22/2021 Diabetes mellitus type 2, controlled, without co mplications 05/17/2015 08/23/2020 documented as of this encounter (statuses as of 04/21/2022) [facility] of Past illness Narrative* Problem Noted Date Resolved Date Obesity, Class III, BMI >= 40 02/26/2018 Peripheral neuropathy 01/21/2018 08/22/2021 Diabetes mellitus type 2, controlled, without co mplications 05/17/2015 08/23/2020 documented as of this encounter (statuses as of 05/15/2022) [facility] of Past illness Narrative* Problem Noted Date Resolved Date Obesity, Class III, BMI >= 40 02/26/2018 Peripheral neuropathy 01/21/2018 08/22/2021 Diabetes mellitus type 2, controlled, without co mplications 05/17/2015 08/23/2020 documented as of this encounter (statuses as of 05/26/2022) [facility] of Past illness Narrative* Problem Noted Date Resolved Date Obesity, Class III, BMI >= 40 02/26/2018 Peripheral neuropathy 01/21/2018 08/22/2021 Diabetes mellitus type 2, controlled, without co mplications 05/17/2015 08/23/2020 documented as of this encounter (statuses as of 06/12/2022) [facility] of Past illness Narrative* Problem Noted Date Resolved Date Obesity, Class III, BMI >= 40 02/26/2018 Peripheral neuropathy 01/21/2018 08/22/2021 Diabetes mellitus type 2, controlled, without co mplications 05/17/2015 08/23/2020 documented as of this encounter (statuses as of 07/11/2022) [facility]2019 History of Past illness Narrative* Problem Noted Date Resolved Date Obesity, Class III, BMI >= 40 02/26/2018 Peripheral neuropathy 01/21/2018 08/22/2021 Diabetes mellitus type 2, controlled, without co mplications 05/17/2015 08/23/2020 documented as of this encounter (statuses as of 08/07/2022) [facility] History of Past illness Narrative* Problem Noted Date Diagnosed Date Resolved Date Obesity, Class III, BMI >= 40 02/26/2018 08/23/2020 Peripheral neuropathy 01/21/20182021 Controlled type 2 diabetes m ellitus without complication, without long-term current use of insulin 01/21/2018 09/04/2022 Last Assessment & Plan: Assessment: Last A1C on 02/14/22 was 6.6%, on rx. Diabetes mellitus type 2, co ntrolled, without complications 05/17/2015 08/23/2020 documented as of this encounter (statuses as of 09/19/2022) [facility] History of Past illness Narrative* Problem Noted Date Diagnosed Date Resolved Date Obesity, Class III, BMI >= 40 02/26/2018 08/23/2020 Peripheral neuropathy 01/21/20182021 Controlled type 2 diabetes m ellitus without complication, without long-term current use of insulin 01/21/2018 09/04/2022 Last Assessment & Plan: Assessment: Last A1C on 02/14/22 was 6.6%, on rx. Diabetes mellitus type 2, co ntrolled, without complications 05/17/2015 08/23/2020 documented as of this encounter (statuses as of 10/02/2022) [facility] History of Past illness Narrative* Problem Noted Date Diagnosed Date Resolved Date Obesity, Class III, BMI >= 40 02/26/2018 08/23/2020 Peripheral neuropathy 01/21/20182021 Controlled type 2 diabetes m ellitus without complication, without long-term current use of insulin 01/21/2018 09/04/2022 Last Assessment & Plan: Assessment: Last A1C on 02/14/22 was 6.6%, on rx. Diabetes mellitus type 2, co ntrolled, without complications 05/17/2015 08/23/2020 documented as of this encounter (statuses as of 10/05/2022) [facility] History of Past illness Narrative* Problem Noted Date Diagnosed Date Resolved Date Obesity, Class III, BMI >= 40 02/26/2018 08/23/2020 Peripheral neuropathy 01/21/20182021 Controlled type 2 diabetes m ellitus without complication, without long-term current use of insulin 01/21/2018 09/04/2022 Last Assessment & Plan: Assessment: Last A1C on 02/14/22 was 6.6%, on rx. Diabetes mellitus type 2, co ntrolled, without complications 05/17/2015 08/23/2020 documented as of this encounter (statuses as of 10/17/2022) [facility] History of Past illness Narrative* Problem Noted Date Diagnosed Date Resolved Date Obesity, Class III, BMI >= 40 02/26/2018 08/23/2020 Peripheral neuropathy 01/21/20182021 Controlled type 2 diabetes m ellitus without complication, without long-term current use of insulin 01/21/2018 09/04/2022 Last Assessment & Plan: Assessment: Last A1C on 02/14/22 was 6.6%, on rx. Diabetes mellitus type 2, co ntrolled, without complications 05/17/2015 08/23/2020 documented as of this encounter (statuses as of 11/03/2022) [facility] History of Past illness Narrative* Problem Noted Date Diagnosed Date Resolved Date Obesity, Class III, BMI >= 40 02/26/2018 08/23/2020 Peripheral neuropathy 01/21/20182021 Controlled type 2 diabetes m ellitus without complication, without long-term current use of insulin 01/21/2018 09/04/2022 Last Assessment & Plan: Assessment: Last A1C on 02/14/22 was 6.6%, on rx. Diabetes mellitus type 2, co ntrolled, without complications 05/17/2015 08/23/2020 documented as of this encounter (statuses as of 11/17/2022) [facility] History of Past illness Narrative* Problem Noted Date Diagnosed Date Resolved Date Obesity, Class III, BMI >= 40 02/26/2018 08/23/2020 Peripheral neuropathy 01/21/20182021 Controlled type 2 diabetes m ellitus without complication, without long-term current use of insulin 01/21/2018 09/04/2022 Last Assessment & Plan: Assessment: Last A1C on 02/14/22 was 6.6%, on rx. Diabetes mellitus type 2, co ntrolled, without complications 05/17/2015 08/23/2020 documented as of this encounter (statuses as of 11/30/2022) [facility] History of Past illness Narrative* Problem Noted Date Diagnosed Date Resolved Date Obesity, Class III, BMI >= 40 02/26/2018 08/23/2020 Peripheral neuropathy 01/21/20182021 Controlled type 2 diabetes m ellitus without complication, without long-term current use of insulin 01/21/2018 09/04/2022 Last Assessment & Plan: Assessment: Last A1C on 02/14/22 was 6.6%, on rx. Diabetes mellitus type 2, co ntrolled, without complications 05/17/2015 08/23/2020 documented as of this encounter (statuses as of 12/13/2022) [facility] History of Past illness Narrative* Problem Noted Date Diagnosed Date Resolved Date Obesity, Class III, BMI >= 40 02/26/2018 08/23/2020 Peripheral neuropathy 01/21/20182021 Controlled type 2 diabetes m ellitus without complication, without long-term current use of insulin 01/21/2018 09/04/2022 Last Assessment & Plan: Assessment: Last A1C on 02/14/22 was 6.6%, on rx. Diabetes mellitus type 2, co ntrolled, without complications 05/17/2015 08/23/2020 documented as of this encounter (statuses as of 12/28/2022) [facility] History of Past illness Narrative* Problem Noted Date Diagnosed Date Resolved Date Obesity, Class III, BMI >= 40 02/26/2018 08/23/2020 Peripheral neuropathy 01/21/20182021 Controlled type 2 diabetes m ellitus without complication, without long-term current use of insulin 01/21/2018 09/04/2022 Last Assessment & Plan: Assessment: Last A1C on 02/14/22 was 6.6%, on rx. Diabetes mellitus type 2, co ntrolled, without complications 05/17/2015 08/23/2020 documented as of this encounter (statuses as of 01/25/2023) [facility] Diagnosis Encounter for screening mammogram for malignant neoplasm of breast- Primary Other screening mammogram [facility] Diagnosis Controlled type 2 diabetes mellitus without complication, without long-term current use of insulin (HCC)- Primary Vitamin B12 deficiency Other B-complex deficiencies Malabsorption syndrome Unspecified intestinal malabsorption Other vitamin B12 deficiency anemia Fatigue, unspecified type Other iron deficiency anemia Hypothyroidism, acquired Unspecified hypothyroidism Hypertriglyceridemia Pure hyperglyceridemia [facility] Diagnosis Vitamin B12 deficiency- Primary Other B-complex deficiencies [facility] Diagnosis Vitamin B12 deficiency- Primary Other B-complex deficiencies [facility] Diagnosis Vitamin B12 deficiency- Primary Other B-complex deficiencies [facility] Diagnosis Vitamin B12 deficiency- Primary Other B-complex deficiencies [facility] Vitamin B12 deficiency- Primary Other B-complex deficiencies [facility] Diagnosis Uncontrolled type 2 diabetes mellitus with hyperglycemia (HCC)- Primary Vitamin B12 deficiency Other B-complex deficiencies Controlled type 2 diabetes mellitus without complication, without long-term current use of insulin (HCC) Hypothyroidism, acquired Unspecified hypothyroidism Other vitamin B12 deficiency anemia Iron deficiency Iron deficiency anemia, unspecified Vitamin D deficiency Unspecified vitamin D deficiency [facility] Diagnosis Vitamin B12 deficiency- Primary Other B-complex deficiencies [facility] Diagnosis Controlled type 2 diabetes mellitus without complication, without long-term current use of insulin (HCC)- Primary Encounter for screening mammogram for malignant neoplasm of breast Other screening mammogram Hypothyroidism, acquired Unspecified hypothyroidism Vitamin B12 deficiency Other B-complex deficiencies Other vitamin B12 deficiency anemia Vitamin D deficiency Unspecified vitamin D deficiency Iron deficiency Iron deficiency anemia, unspecified Malabsorption syndrome Unspecified intestinal malabsorption Hypertriglyceridemia Pure hyperglyceridemia [facility] Diagnosis Vitamin B12 deficiency- Primary Other B-complex deficiencies [facility] Diagnosis RUQ abdominal pain- Primary Abdominal pain, right upper quadrant Calculus of gallbladder without cholecystitis without obstruction Calculus of gallbladder without mention of cholecystitis or obstruction Fatty liver Other chronic nonalcoholic liver disease [facility] Diagnosis RUQ abdominal pain Abdominal pain, right upper quadrant Calculus of gallbladder without cholecystitis without obstruction Calculus of gallbladder without mention of cholecystitis or obstruction Fatty liver Other chronic nonalcoholic liver disease RUQ abdominal pain Abdominal pain, right upper quadrant Gallbladder calculus without cholecystitis and no obstruction Calculus of gallbladder without mention of cholecystitis or obstruction Fatty liver Other chronic nonalcoholic liver disease [facility]* Diagnosis Essential hypertension with goal blood pressure less than 130/80 Hypertriglyceridemia Pure hyperglyceridemia Hypothyroidism, acquired Unspecified hypothyroidism Controlled type 2 diabetes mellitus without complication, without long-term current use of insulin (HCC) Other iron deficiency anemia RUQ abdominal pain Abdominal pain, right upper quadrant Gallbladder calculus without cholecystitis and no obstruction Calculus of gallbladder without mention of cholecystitis or obstruction Fatty liver Other chronic nonalcoholic liver disease [facility] Diagnosis Post-op pain- Primary Other acute postoperative pain S/P laparoscopic cholecystectomy Other postprocedural status documented in this encounter [facility]* Diagnosis Aftercare following surgery- Primary Encounter for other specified aftercare documented in this encounter [facility] note* Diagnosis Vitamin B12 deficiency- Primary Other B-complex deficiencies documented in this encounter [facility] note* Diagnosis Controlled type 2 diabetes mellitus without complication, without long-term current use of insulin (HCC)- Primary RUQ abdominal pain Abdominal pain, right upper quadrant Calculus of gallbladder without cholecystitis without obstruction Calculus of gallbladder without mention of cholecystitis or obstruction Fatty liver Other chronic nonalcoholic liver disease Hypothyroidism, acquired Unspecified hypothyroidism Vitamin D deficiency Unspecified vitamin D deficiency Other vitamin B12 deficiency anemia Iron deficiency Iron deficiency anemia, unspecified [facility] Diagnosis Other vitamin B12 deficiency anemia- Primary documented in this encounter [facility]* Diagnosis Other vitamin B12 deficiency anemia- Primary documented in this encounter [facility] note* Diagnosis Vitamin B12 deficiency- Primary Other B-complex deficiencies documented in this encounter [facility] note* Diagnosis Vitamin B12 deficiency- Primary Other B-complex deficiencies documented in this encounter [facility]* Diagnosis Vitamin B12 deficiency- Primary Other B-complex deficiencies [facility]* Diagnosis Controlled type 2 diabetes mellitus without complication, without long-term current use of insulin (HCC)- Primary Elevated alkaline phosphatase level Other nonspecific abnormal serum enzyme levels Vitamin B12 deficiency Other B-complex deficiencies Hypothyroidism, acquired Unspecified hypothyroidism Iron deficiency Iron deficiency anemia, unspecified Vitamin D deficiency Unspecified vitamin D deficiency Hypertriglyceridemia Pure hyperglyceridemia Fatigue, unspecified type Fatty liver Other chronic nonalcoholic liver disease documented in this encounter [facility] note* Diagnosis Vitamin B12 deficiency- Primary Other B-complex deficiencies documented in this encounter [facility] for referral (narrative)* Diagnostic Procedure Only (Routine) - Pending Review Specialty Diagnoses / Procedures Referred By Angela carey Referred To Contact [facility] Diagnoses Encounter for screening mammogram for malignant neoplasm of breast Procedures CAROLINE SCREENING W FLOR SCREENING DIGITAL BREAST TOMOSYNTHESIS BI SCREENING MAMMOGRAPHY BI 2-VIEW BREAST INC Jahaira Pineda, [employer] 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 [address] [place] [address] [facility] [address] [place] [address] Referral ID Status Reason Start Date Expiration Date Visits Requested Visits Authorized [id number] Pending Review Auto-Generat ed Referral 05/18/2021 06/17/2022 1 1 [facility] Diagnostic Procedure Only (Routine) - Pending Review Specialty Diagnoses / Procedures Referred By Angela carey Referred To Contact [facility] Diagnoses Encounter for screening mammogram for malignant neoplasm of breast Procedures CAROLINE SCREENING SCREENING MAMMOGRAPHY BI 2-VIEW BREAST INC CAD Jeff Pearce, [address] [place] [address] [facility] [address] [place] [address] Referral ID Status Reason Start Date Expiration Date Visits Requested Visits Authorized [id number] Pending Review Auto-Generat ed Referral 02/20/2022 03/22/2023 1 1 [facility] Summary Purpose Family History No Family History Records FoundNo Family History Records FoundNo Family History Records Found Advance Directives No Advanced Directives Records FoundDocuments on File 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 Date 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 Advance Directive(s) 04/23/2019 11:29 AM Advance Directive(s) 02/26/2018 8:33 AM Advance Directive(s) 02/22/2018 7:13 PM Documents on File Type Date Recorded 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 Advance Directive(s) 04/23/2019 11:29 AM Advance Directive(s) 02/26/2018 8:33 AM Advance Directive(s) 02/22/2018 7:13 PM Documents on File Type Date Recorded 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 Advance Directive(s) 04/23/2019 11:29 AM Documents on File Type Date Recorded 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 Advance Directive(s) 04/23/2019 11:29 AM Medications Administered Section Active Administered Medications - up to 3 most recent administrations Medication Order MAR Action Action Date Dose Rate Site cyanocobalamin 1,000 mcg injection 1,000 mcg, INTRAMUSCULAR, DIRECTED, Starting on 05/30/21 at 1000, Until Discontinued, Take 1 ml injection IM every 1 week x 4 weeks, then 1 ml IM every 2 weeks x 1 month, then 1 ml once a month Given 05/30/2021 10:12 AM EDT 1,000 mcg Deltoid, Right Active Administered Medications - up to 3 most recent administrations Medication Order MAR Action Action Date Dose Rate Site cyanocobalamin 1,000 mcg injection 1,000 mcg, INTRAMUSCULAR, DIRECTED, Starting on Sun05/30/21 at 1000, Until Discontinued, Take 1 ml injection IM every 1 week x 4 weeks, then 1 ml IM every 2 weeks x 1 month, then 1 ml once a month Given 06/06/2021 2:51 PM EDT 1,000 mcg Deltoid, Right Active Administered Medications - up to 3 most recent administrations Medication Order MAR Action Action Date Dose Rate Site cyanocobalamin 1,000 mcg injection 1,000 mcg, INTRAMUSCULAR, DIRECTED, Starting on Sun05/30/21 at 1000, Until Discontinued, Take 1 ml injection IM every 1 week x 4 weeks, then 1 ml IM every 2 weeks x 1 month, then 1 ml once a month Given 06/20/2021 2:39 PM EDT 1,000 mcg Deltoid, Right Active Administered Medications - up to 3 most recent administrations Medication Order MAR Action Action Date Dose Rate Site cyanocobalamin 1,000 mcg injection 1,000 mcg, INTRAMUSCULAR, DIRECTED, Starting on Sun05/30/21 at 1000, Until Discontinued, Take 1 ml injection IM every 1 week x 4 weeks, then 1 ml IM every 2 weeks x 1 month, then 1 ml once a month Given 07/04/2021 9:40 AM EDT 1,000 mcg Deltoid, Right Active Administered Medications - up to 3 most recent administrations Medication Order MAR Action Action Date Dose Rate Site cyanocobalamin 1,000 mcg injection 1,000 mcg, INTRAMUSCULAR, DIRECTED, Starting on Sun05/30/21 at 1000, Until Discontinued, Take 1 ml injection IM every 1 week x 4 weeks, then 1 ml IM every 2 weeks x 1 month, then 1 ml once a month Given 07/18/2021 9:35 AM EDT 1,000 mcg Deltoid, Right Active Administered Medications - up to 3 most recent administrations Medication Order MAR Action Action Date Dose Rate Site cyanocobalamin 1,000 mcg injection 1,000 mcg, INTRAMUSCULAR, DIRECTED, Starting on Sun05/30/21 at 1000, Until Discontinued, Take 1 ml injection IM every 1 week x 4 weeks, then 1 ml IM every 2 weeks x 1 month, then 1 ml once a month Given 10/20/2021 9:07 AM EDT 1,000 mcg Deltoid, Right Active Administered Medications - up to 3 most recent administrations Medication Order MAR Action Action Date Dose Rate Site cyanocobalamin 1,000 mcg injection 1,000 mcg, INTRAMUSCULAR, EVERY 4 WEEKS, 12 doses, First dose on Sun11/15/21 at 1000, Last dose on Sun09/19/22 at 1000 Given 11/15/2021 10:23 AM EDT 1,000 mcg Deltoid, Left Active Administered Medications - up to 3 most recent administrations Medication Order MAR Action Action Date Dose Rate Site cyanocobalamin 1,000 mcg injection 1,000 mcg, INTRAMUSCULAR, EVERY 4 WEEKS, 12 doses, First dose on Sun11/15/21 at 1000, Last dose on Sun09/19/22 at 1000 Given 12/20/2021 8:56 AM EST 1,000 mcg Arm , Right Active Administered Medications - up to 3 most recent administrations Medication Order MAR Action Action Date Dose Rate Site cyanocobalamin 1,000 mcg injection 1,000 mcg, INTRAMUSCULAR, EVERY 4 WEEKS, 12 doses, First dose on Sun11/15/21 at 1000, Last dose on Sun09/19/22 at 1000 Given 01/17/2022 9:10 AM EST 1,000 mcg Deltoid, Right Active Administered Medications - up to 3 most recent administrations Medication Order MAR Action Action Date Dose Rate Site cyanocobalamin 1,000 mcg injection 1,000 mcg, INTRAMUSCULAR, EVERY 4 WEEKS, 12 doses, First dose on Sun11/15/21 at 1000, Last dose on Sun09/19/22 at 1000 Given 02/20/2022 10:20 AM EST 1,000 mcg Deltoid, Right Active Administered Medications - up to 3 most recent administrations Medication Order MAR Action Action Date Dose Rate Site cyanocobalamin 1,000 mcg injection 1,000 mcg, INTRAMUSCULAR, EVERY 4 WEEKS, 12 doses, First dose on Sun11/15/21 at 1000, Last dose on Sun09/19/22 at 1000 Given 03/20/2022 9:15 AM EST 1,000 mcg Deltoid, Right Active Administered Medications - up to 3 most recent administrations Medication Order MAR Action Action Date Dose Rate Site cyanocobalamin 1,000 mcg injection 1,000 mcg, INTRAMUSCULAR, EVERY 4 WEEKS, 12 doses, First dose on Sun11/15/21 at 1000, Last dose on Sun09/19/22 at 1000 Given 05/15/2022 9:00 AM EDT 1,000 mcg Deltoid, Right Active Administered Medications - up to 3 most recent administrations Medication Order MAR Action Action Date Dose Rate Site cyanocobalamin 1,000 mcg injection 1,000 mcg, INTRAMUSCULAR, EVERY 4 WEEKS, 12 doses, First dose on Sun11/15/21 at 1000, Last dose on Sun09/19/22 at 1000 Given 05/24/2022 4:35 PM EDT 1,000 mcg Deltoid, Right Active Administered Medications - up to 3 most recent administrations Medication Order MAR Action Action Date Dose Rate Site cyanocobalamin 1,000 mcg injection 1,000 mcg, INTRAMUSCULAR, EVERY 4 WEEKS, 12 doses, First dose on Sun11/15/21 at 1000, Last dose on Sun09/19/22 at 1000 Given 06/12/2022 9:32 AM EDT 1,000 mcg Deltoid, Right Active Administered Medications - up to 3 most recent administrations Medication Order MAR Action Action Date Dose Rate Site cyanocobalamin 1,000 mcg injection 1,000 mcg, INTRAMUSCULAR, EVERY 4 WEEKS, 12 doses, First dose on Sun11/15/21 at 1000, Last dose on Sun09/19/22 at 1000 Given 07/11/2022 9:35 AM EDT 1,000 mcg Deltoid, Right Active Administered Medications - up to 3 most recent administrations Medication Order MAR Action Action Date Dose Rate Site cyanocobalamin 1,000 mcg injection 1,000 mcg, INTRAMUSCULAR, EVERY 4 WEEKS, 12 doses, First dose on Sun11/15/21 at 1000, Last dose on Sun09/19/22 at 1000 Given 08/07/2022 10:23 AM EDT 1,000 mcg Deltoid, Right Active Administered Medications - up to 3 most recent administrations Medication Order MAR Action Action Date Dose Rate Site cyanocobalamin 1,000 mcg injection 1,000 mcg, INTRAMUSCULAR, EVERY 2 WEEKS, 26 doses, First dose on Sun09/05/22 at 1130, Last dose on Sun08/21/23 at 1130 Given 09/19/2022 9:31 AM EDT 1,000 mcg Deltoid, Right Active Administered Medications - up to 3 most recent administrations Medication Order MAR Action Action Date Dose Rate Site cyanocobalamin 1,000 mcg injection 1,000 mcg, INTRAMUSCULAR, EVERY 2 WEEKS, 26 doses, First dose on Sun09/05/22 at 1130, Last dose on Sun08/21/23 at 1130 Given 10/02/2022 9:49 AM EDT 1,000 mcg Deltoid, Right Active Administered Medications - up to 3 most recent administrations Medication Order MAR Action Action Date Dose Rate Site cyanocobalamin 1,000 mcg injection 1,000 mcg, INTRAMUSCULAR, EVERY 2 WEEKS, 26 doses, First dose on Sun09/05/22 at 1130, Last dose on Sun08/21/23 at 1130 Given 10/17/2022 9:12 AM EDT 1,000 mcg Deltoid, Right Active Administered Medications - up to 3 most recent administrations Medication Order MAR Action Action Date Dose Rate Site cyanocobalamin 1,000 mcg injection 1,000 mcg, INTRAMUSCULAR, EVERY 2 WEEKS, 26 doses, First dose on Sun09/05/22 at 1130, Last dose on Sun08/21/23 at 1130 Given 11/03/2022 8:54 AM EDT 1,000 mcg Deltoid, Right Active Administered Medications - up to 3 most recent administrations Medication Order MAR Action Action Date Dose Rate Site cyanocobalamin 1,000 mcg injection 1,000 mcg, INTRAMUSCULAR, EVERY 2 WEEKS, 26 doses, First dose on Sun09/05/22 at 1130, Last dose on Sun08/21/23 at 1130 Given 11/16/2022 9:00 AM EDT 1,000 mcg Deltoid, Right Active Administered Medications - up to 3 most recent administrations Medication Order MAR Action Action Date Dose Rate Site cyanocobalamin 1,000 mcg injection 1,000 mcg, INTRAMUSCULAR, EVERY 2 WEEKS, 26 doses, First dose on Sun09/05/22 at 1130, Last dose on Sun08/21/23 at 1130 Given 11/30/2022 9:16 AM EDT 1,000 mcg Deltoid, Right Active Administered Medications - up to 3 most recent administrations Medication Order MAR Action Action Date Dose Rate Site cyanocobalamin 1,000 mcg injection 1,000 mcg, INTRAMUSCULAR, EVERY 2 WEEKS, 26 doses, First dose on Sun09/05/22 at 1130, Last dose on Sun08/21/23 at 1130 Given 12/08/2022 10:18 AM EDT 1,000 mcg Deltoid, Right Active Administered Medications - up to 3 most recent administrations Medication Order MAR Action Action Date Dose Rate Site cyanocobalamin 1,000 mcg injection 1,000 mcg, INTRAMUSCULAR, EVERY 2 WEEKS, 26 doses, First dose on Sun09/05/22 at 1130, Last dose on Sun08/21/23 at 1130 Given 12/28/2022 9:50 AM EST 1,000 mcg Deltoid, Right Active Administered Medications - up to 3 most recent administrations Medication Order MAR Action Action Date Dose Rate Site cyanocobalamin 1,000 mcg injection 1,000 mcg, INTRAMUSCULAR, EVERY 2 WEEKS, 26 doses, First dose on Sun09/05/22 at 1130, Last dose on Sun08/21/23 at 1130 Given 01/25/2023 10:23 AM EST 1,000 mcg Deltoid, Right Reason for Referral Specialty Diagnoses / Procedures Referred By Angela carey Referred To Contact General Surgery Diagnoses RUQ abdominal pain Calculus of gallbladder without cholecystitis without obstruction Fatty liver Procedures CONSULT TO GENERAL SURGERY OFFICE/OUTPATIENT REPLACED BY [facility] MDM 60-74 MINUTES Jeff Pearce L, DO [address] [place] [address] Referral ID Status Reason Start Date Expiration Date Visits Requested Visits Authorized [id number] Authorized PCP Requested Referral 03/21/2022 03/21/2023 1 1 Additional Source Comments INFORMATION SOURCE (unrecogn ized section and content) DATE CREATED AUTHOR AUTHOR'S ORGANIZ ATION 04/10/2022 [facility] DATE CREATED AUTHOR AUTHOR'S ORGANIZ ATION 03/01/2023 [facility] Source Comments (unrecognize d section and content) In the event this informatio n is protected by the Federal Confidentiality of Alcohol and Drug Abuse Patient Records regulations: The Federal rules restrict any use of the information to criminally investigate or prosecute any alcohol or drug abuse patient.[facility] the event this information is protected by the Federal Confidentiality of Alcohol and Drug Abuse Patient Records regulations: The Federal rules restrict any use of the information to criminally investigate or prosecute any alcohol or drug abuse patient.[facility] the event this information is protected by the Federal Confidentiality of Alcohol and Drug Abuse Patient Records regulations: The Federal rules restrict any use of the information to criminally investigate or prosecute any alcohol or drug abuse patient.[facility] Center[facility] the event this information is protected by the Federal Confidentiality of Alcohol and Drug Abuse Patient Records regulations: The Federal rules restrict any use of the information to criminally investigate or prosecute any alcohol or drug abuse patient.[facility] CenterIn the event this information is protected by the Federal Confidentiality of Alcohol and Drug Abuse Patient Records regulations: The Federal rules restrict any use of the information to criminally investigate or prosecute any alcohol or drug abuse patient.[facility] Center[facility] the event this information is protected by the Federal Confidentiality of Alcohol and Drug Abuse Patient Records regulations: The Federal rules restrict any use of the information to criminally investigate or prosecute any alcohol or drug abuse patient.[facility] Center[facility] the event this information is protected by the Federal Confidentiality of Alcohol and Drug Abuse Patient Records regulations: The Federal rules restrict any use of the information to criminally investigate or prosecute any alcohol or drug abuse patient.[facility] Center[facility] the event this information is protected by the Federal Confidentiality of Alcohol and Drug Abuse Patient Records regulations: The Federal rules restrict any use of the information to criminally investigate or prosecute any alcohol or drug abuse patient.[facility] Center[facility] the event this information is protected by the Federal Confidentiality of Alcohol and Drug Abuse Patient Records regulations: The Federal rules restrict any use of the information to criminally investigate or prosecute any alcohol or drug abuse patient.[facility] Center[facility] the event this information is protected by the Federal Confidentiality of Alcohol and Drug Abuse Patient Records regulations: The Federal rules restrict any use of the information to criminally investigate or prosecute any alcohol or drug abuse patient.[facility] CenterIn the event this information is protected by the Federal Confidentiality of Alcohol and Drug Abuse Patient Records regulations: The Federal rules restrict any use of the information to criminally investigate or prosecute any alcohol or drug abuse patient.[facility] CenterIn the event this information is protected by the Federal Confidentiality of Alcohol and Drug Abuse Patient Records regulations: The Federal rules restrict any use of the information to criminally investigate or prosecute any alcohol or drug abuse patient.[facility] Center[facility] the event this information is protected by the Federal Confidentiality of Alcohol and Drug Abuse Patient Records regulations: The Federal rules restrict any use of the information to criminally investigate or prosecute any alcohol or drug abuse patient.[facility] CenterIn the event this information is protected by the Federal Confidentiality of Alcohol and Drug Abuse Patient Records regulations: The Federal rules restrict any use of the information to criminally investigate or prosecute any alcohol or drug abuse patient.[facility] CenterIn the event this information is protected by the Federal Confidentiality of Alcohol and Drug Abuse Patient Records regulations: The Federal rules restrict any use of the information to criminally investigate or prosecute any alcohol or drug abuse patient.[facility] CenterIn the event this information is protected by the Federal Confidentiality of Alcohol and Drug Abuse Patient Records regulations: The Federal rules restrict any use of the information to criminally investigate or prosecute any alcohol or drug abuse patient.[facility] CenterIn the event this information is protected by the Federal Confidentiality of Alcohol and Drug Abuse Patient Records regulations: The Federal rules restrict any use of the information to criminally investigate or prosecute any alcohol or drug abuse patient.[facility] CenterIn the event this information is protected by the Federal Confidentiality of Alcohol and Drug Abuse Patient Records regulations: The Federal rules restrict any use of the information to criminally investigate or prosecute any alcohol or drug abuse patient.[facility] CenterIn the event this information is protected by the Federal Confidentiality of Alcohol and Drug Abuse Patient Records regulations: The Federal rules restrict any use of the information to criminally investigate or prosecute any alcohol or drug abuse patient.[facility] CenterIn the event this information is protected by the Federal Confidentiality of Alcohol and Drug Abuse Patient Records regulations: The Federal rules restrict any use of the information to criminally investigate or prosecute any alcohol or drug abuse patient.[facility] CenterIn the event this information is protected by the Federal Confidentiality of Alcohol and Drug Abuse Patient Records regulations: The Federal rules restrict any use of the information to criminally investigate or prosecute any alcohol or drug abuse patient.[facility] CenterIn the event this information is protected by the Federal Confidentiality of Alcohol and Drug Abuse Patient Records regulations: The Federal rules restrict any use of the information to criminally investigate or prosecute any alcohol or drug abuse patient.[facility] CenterIn the event this information is protected by the Federal Confidentiality of Alcohol and Drug Abuse Patient Records regulations: The Federal rules restrict any use of the information to criminally investigate or prosecute any alcohol or drug abuse patient.[facility] CenterIn the event this information is protected by the Federal Confidentiality of Alcohol and Drug Abuse Patient Records regulations: The Federal rules restrict any use of the information to criminally investigate or prosecute any alcohol or drug abuse patient.[facility] CenterIn the event this information is protected by the Federal Confidentiality of Alcohol and Drug Abuse Patient Records regulations: The Federal rules restrict any use of the information to criminally investigate or prosecute any alcohol or drug abuse patient.[facility] CenterIn the event this information is protected by the Federal Confidentiality of Alcohol and Drug Abuse Patient Records regulations: The Federal rules restrict any use of the information to criminally investigate or prosecute any alcohol or drug abuse patient.[facility] CenterIn the event this information is protected by the Federal Confidentiality of Alcohol and Drug Abuse Patient Records regulations: The Federal rules restrict any use of the information to criminally investigate or prosecute any alcohol or drug abuse patient.[facility] CenterIn the event this information is protected by the Federal Confidentiality of Alcohol and Drug Abuse Patient Records regulations: The Federal rules restrict any use of the information to criminally investigate or prosecute any alcohol or drug abuse patient.[facility] CenterIn the event this information is protected by the Federal Confidentiality of Alcohol and Drug Abuse Patient Records regulations: The Federal rules restrict any use of the information to criminally investigate or prosecute any alcohol or drug abuse patient.[facility] CenterIn the event this information is protected by the Federal Confidentiality of Alcohol and Drug Abuse Patient Records regulations: The Federal rules restrict any use of the information to criminally investigate or prosecute any alcohol or drug abuse patient.[facility] CenterIn the event this information is protected by the Federal Confidentiality of Alcohol and Drug Abuse Patient Records regulations: The Federal rules restrict any use of the information to criminally investigate or prosecute any alcohol or drug abuse patient.[facility] CenterIn the event this information is protected by the Federal Confidentiality of Alcohol and Drug Abuse Patient Records regulations: The Federal rules restrict any use of the information to criminally investigate or prosecute any alcohol or drug abuse patient.[facility] CenterIn the event this information is protected by the Federal Confidentiality of Alcohol and Drug Abuse Patient Records regulations: The Federal rules restrict any use of the information to criminally investigate or prosecute any alcohol or drug abuse patient.[facility] Reason for Visit (unrecogniz ed section and content) Reason Comments Follow Up 3 months Reason Comments B-12 Injection Reason Comments Results Reason Comments B 12 injection Reason Comments F/U 3 Month Reason Comments Imm/Inj B-12 injection Reason Comments F/U 3 Month Reason Comments Results Reason Comments Consult Gallbladder US Specialty Diagnoses / Procedures Referred By Contac t Referred To Contact General Surgery Diagnoses RUQ abdominal pain Calculus of gallbladder without cholecystitis without obstruction Fatty liver Procedures CONSULT TO GENERAL SURGERY OFFICE/OUTPATIENT NEW HIGH MDM 60-74 MINUTES Jeff Pearce L, DO [address] [place] [address] Referral ID Status Reason Start Date Expiration Date V isits Requested Visits Authorized [id number] Closed PCP Requested Referral 03/21/2022 03/21/2023 1 1 Reason Comments Consult Reason Comments Surgical Follow Up Lap magdalene post op Specialty Diagnoses / Procedures Referred By Contac t Referred To Contact General Surgery / GENERAL SURGERY Diagnoses post op lap magdalene, wanted sooner appt Procedures OFFICE/OUTPATIENT ESTABLISHED HIGH MDM 40-54 MIN EST DDI PATIENT Amado Campos PA-C [address] [place] [address] Amado Campos PA-C [address] [place] [address] Referral ID Status Reason Start Date Expiration Date Visits Re quested Visits Authorized [id number] Closed 04/10/2022 02/11/2023 1 1 Reason Comments Post Op Follow Up 04/10/22 [facility] Teams (unrecognized sec tion and content) Powerhouse Operator Relationship Specialty Start Date End Date Jeff Pearce, DO [address] [place] [address] PCP - General Family Practice 09/28/15 Powerhouse Operator Relationship Specialty Start Date End Date Jeff Pearce DO [address] [place] [address] PCP - General Family Practice 09/28/15 Powerhouse Operator Relationship Specialty Start Date End Date Jeff Pearce DO [address] [place] [address] PCP - General Family Practice 09/28/15 Powerhouse Operator Relationship Specialty Start Date End Date Jeff Pearce DO [address] [place] [address] PCP - General Family Practice 09/28/15 Powerhouse Operator Relationship Specialty Start Date End Date Jeff Pearce DO [address] [place] [address] PCP - General Family Practice 09/28/15 Powerhouse Operator Relationship Specialty Start Date End Date Jeff Pearce DO [address] [place] [address] PCP - General Family Practice 09/28/15 Powerhouse Operator Relationship Specialty Start Date End Date Jeff Pearce DO [address] [place] [address] PCP - General Family Practice 09/28/15 Powerhouse Operator Relationship Specialty Start Date End Date Jeff Pearce, DO [address] [place] [address] PCP - General Family Medicine 09/28/15 Powerhouse Operator Relationship Specialty Start Date End Date Jeff Pearce, DO [address] [place] [address] PCP - General Family Medicine 09/28/15 Powerhouse Operator Relationship Specialty Start Date End Date Jeff Pearce, DO [address] [place] [address] PCP - General Family Medicine 09/28/15 Powerhouse Operator Relationship Specialty Start Date End Date Jeff Pearce, DO [address] [place] [address] PCP - General Family Medicine 09/28/15 Powerhouse Operator Relationship Specialty Start Date End Date Jeff Pearce, DO [address] [place] [address] PCP - General Family Medicine 09/28/15 Powerhouse Operator Relationship Specialty Start Date End Date Jeff Pearce, DO [address] [place] [address] PCP - General Family Medicine 09/28/15 Powerhouse Operator Relationship Specialty Start Date End Date Jeff Pearce, DO [address] [place] [address] PCP - General Family Medicine 09/28/15 Powerhouse Operator Relationship Specialty Start Date End Date Jeff Pearce, DO [address] [place] [address] PCP - General Family Medicine 09/28/15 Powerhouse Operator Relationship Specialty Start Date End Date Jeff Pearce, DO [address] [place] [address] PCP - General Family Medicine 09/28/15 Powerhouse Operator Relationship Specialty Start Date End Date Jeff Pearce DO [address] [place] [address] PCP - General Family Medicine 09/28/15 Powerhouse Operator Relationship Specialty Start Date End Date Jeff Pearce DO [address] [place] [address] PCP - General Family Medicine 09/28/15 Powerhouse Operator Relationship Specialty Start Date End Date Jeff Pearce DO [address] [place] [address] PCP - General Family Medicine 09/28/15 Powerhouse Operator Relationship Specialty Start Date End Date Jeff Pearce DO [address] [place] [address] PCP - General Family Medicine 09/28/15 Powerhouse Operator Relationship Specialty Start Date End Date Jeff Pearce DO [address] [place] [address] PCP - General Family Medicine 09/28/15 Powerhouse Operator Relationship Specialty Start Date End Date Jeff Pearce DO [address] [place] [address] PCP - General Family Medicine 09/28/15 Powerhouse Operator Relationship Specialty Start Date End Date Jeff Pearce DO [address] [place] [address] PCP - General Family Medicine 09/28/15 Powerhouse Operator Relationship Specialty Start Date End Date Jeff Pearce DO [address] [place] [address] PCP - General Family Medicine 09/28/15 Powerhouse Operator Relationship Specialty Start Date End Date Jeff Pearce DO [address] [place] [address] PCP - General Family Medicine 09/28/15 Powerhouse Operator Relationship Specialty Start Date End Date Jeff Pearce DO [address] [place] [address] PCP - General Family Medicine 09/28/15 FOR RECORDS PERTAINING TO PATIENTS WHO ARE OR HAVE BEEN ENROLLED IN A CHEMICAL DEPENDENCY/SUBSTANCEABUSE PROGRAM, SOME INFORMATION MAY BE OMITTED. This clinical summary was aggregated from multiple sources. Caution should be exercised in using it in the provision of clinical care. This summary normalizes information from multiple sources, and as a consequence, information in this document may materially change the coding, format and clinical context of patient data. In addition, data may be omitted in some cases. CLINICAL DECISIONS SHOULD BE BASED ON THE PRIMARY CLINICAL RECORDS. [facility]. provides no warranty or guarantee of the accuracy or completeness of information in this document.
[2023-03-05] MEDS: Morphine 4 MG/ML Syringe IV (19:44)
[2023-03-05] MEDS: 0.9% Normal Saline (1000mL) 1,000 ML 1000 ML IV (19:44)
[2023-03-05] MEDS: Ondansetron 4 MG/2 ML Vial IV (19:44)
[2023-03-05 19:53] LABS: Mucous, Urine 0 SEEN /hpf (<or=2+); Red Blood Cells-Urine 0 SEEN /hpf (0-5)
[2023-03-05 19:54] LABS: Absolute Lymphocyte Count 1.18 X10^3/uL (0.83-4.51); Absolute Neutrophil Count 12.5 X10^3/uL (2.0-7.7); Basophil# 0.05 X10^3/uL; Basophil% 0.3 % (0-1); Eosinophil# 0.12 X10^3/uL; Eosinophils% 0.8 % (0-5); Hematocrit 35.7 % (37-47); Hemoglobin 10.7 g/dL (12.0-15.0); Lymphocyte # 1.18 X10^3/ul (0.83-4.51); Lymphocyte % 7.9 % (19-41); Mean Corpuscular Hgb 22.3 pg (27.0-32.0); Mean Corpuscular Volume 74.5 fL (81-99); Mean Platelet Vol. 9.6 fl (6.2-12.0); Monocyte# 0.98 X10^3/uL; Monocyte% 6.6 % (0-10); NRBC Flagged by Analyzer 0 % (0-5); Neutrophil % 83.7 % (47-70); Platelet Count 474 K/mm3 (150-450); RBC Distribution Width CV 13.5 % (11.6-14.6); RBC Distribution Width SD 36.4 fl (35.1-43.9); Red Blood Count 4.79 M/mm3 (4.2-5.4); White Blood Count 14.9 K/mm3 (4.4-11.0)
[2023-03-05 20:03] LABS: Color, Urine Yellow (Yellow); Glucose, Dipstick Normal (Normal); Ketone-Dipstick 5 mg/dl (Negative); Leukocyte Esterase-Dipstick 100 /ul (Negative); Nitrite-Dipstick Negative (Negative); Occult Blood-Urine 10 /ul (Negative); Protein-Dipstick 30 mg/dl (Negative); Specific Gravity, Urine 1.025 (1.002-1.030); Urine Clarity Sl. Cloudy (Clear); Urine Urobilinogen 1 mg/dl (Normal)
--- NOTE | 2023-03-05 20:03 | CT_ITS ---
ACR Level 3 findings have been noted. An addendum which confirms receipt of the report will follow. STUDY: CT ABDOMEN AND PELVIS WITHOUT CONTRAST REASON FOR EXAM: Female, 77 years old. Pain RADIATION DOSAGE (If Supplied By Facility): CTDIvol = ( 14.04 ) mGy, DLP = ( 824.33 ) mGycm TECHNIQUE: Transaxial images were obtained from the dome of the diaphragm to the symphysis pubis without oral contrast, and without intravenous contrast. Sagittal and coronal images were reconstructed. Individualized dose optimization techniques were used for this CT. COMPARISON: None. FINDINGS: The visualized lung bases are unremarkable. The visualized portions of the heart are within normal limits. There is decreased attenuation of the liver consistent with steatosis. There is hepatomegaly. There is non-visualization of the gallbladder, which may be secondary to either contraction or a prior cholecystectomy. Common bile duct measures 1.1 cm across, correlate with liver function tests. Normal spleen. Normal pancreas. Normal bilateral adrenal glands. There are no acute abnormalities of the kidneys. There are bilateral multiple parapelvic cysts. There are several small nonobstructing stones in the upper and mid left kidney. There is a prominent inflammatory process in the right lower quadrant that appears to be related to the cecum and ascending colon with marked irregular thickening, pericolonic stranding, and probable perforation with a 4.4 cm retrocecal abscess. Note that the exam is markedly limited by the absence of IV and especially oral contrast. There are several prominent pericecal lymph nodes. The appendix is not seen, but the findings appear to be intrinsic to the cecum and right colon. Findings could represent perforated diverticulitis or perforated neoplasm. Colonoscopy is recommended. Grossly unremarkable nondistended stomach. Large 5 cm proximal duodenal diverticulum. No dilated loops of small bowel or evidence for obstruction. Diverticulosis and fecal retention of the transverse colon, ascending colon, and rectosigmoid. Normal abdominal aorta. Normal inferior vena cava. Normal retroperitoneum. Normal urinary bladder. There is atrophy of the uterus. Normal abdominal wall. There are diffuse degenerative changes of the visualized lumbar spine. CT/Abdomen/Pelvis without Cont IMPRESSION: Very limited by the absence of IV and especially oral contrast. Extensive inflammatory process of the right lower quadrant associated with irregular bowel wall thickening of the right colon, probable perforation, and retrocecal abscess. Findings could represent perforated diverticulitis or perforated neoplasm. Colonoscopy is indicated. Nonobstructing left renal stone. The Nonstandard Physician Communication protocol was initiated. Electronically Signed: Cristino Gonzalez MD at 20:58 EST ,
[2023-03-05 20:14] LABS: ALB/GLOB Ratio 0.6 RATIO (0.9-2.4); AST(SGOT) 6 U/L (15-37); Alanine Aminotransfer ALT/SGPT 11 U/L (13-56); Albumin, Serum 2.8 g/dL (3.2-5.0); Alkaline Phosphatase 107 U/L (45-117); Anion Gap 8 (5-15); BUN 16 mg/dL (7-18); BUN/Creat Ratio 19.5 RATIO (10-20); Calcium,Total 9.2 mg/dL (8.5-10.1); Chloride 102 mmol/L (98-107); Creatinine, Serum 0.82 mg/dL (0.55-1.02); EST Glomerular Filtration Rate 72 mL/min (>60); Est Glom Filt Rate - Afr Amer 87 mL/min (>60); Estimated Creatinine Clearance 58.78 ml/min; Globulin 4.5 g/dL (2.2-4.2); Glucose 252 mg/dL (74-106); Lipase 13 U/L (13-75); Potassium 3.9 mmol/L (3.5-5.1); Protein, Total 7.3 g/dL (6.4-8.2); Sodium Level 137 mmol/L (136-145)
[2023-03-05 20:22] LABS: Urine Bilirubin Dipstick 3 mg/dL (Negative)
[2023-03-05 20:23] LABS: Bacteria 1+ /hpf (None Seen); Squamous Epithelial Cells - UA 0-5 SEEN /hpf (5-10); White Blood Cells 0-5 SEEN /hpf (0-5)
[2023-03-05] MEDS: Meropenem 1 GM in 0.9% Normal Saline (100mL MB+) 100 ML IV (21:56)
[2023-03-05 21:57] VITALS: BP 144/74; PULSE 103; RESP 16; O2SAT 98
[2023-03-05 22:06] LABS: Hemoglobin A1c 6.6 % (3.8-5.6)
--- NOTE | 2023-03-05 22:45 | HP.PCM_ITS ---
HPI - General General Date of Admission: 03/05/23 Date of Service: 03/05/23 Chief Complaint: Right lower quadrant abdominal pain HPI Narrative AMADO COLLADO, is a 77 F, with history of well-controlled diabetes mellitus, who presents to [facility] with complaints of right lower quadrant abdominal pain that has been present and a lower intensity for the last 1 year and became acutely worse over the past 48 hours. She shares that this pain has been overall alternating between a dull and sharp character, however, today it became exclusively sharp in character. She notes that it has been associated with some increased fatigue. She shares that her appetite was negatively affected over the past 3 days with this discomfort but her appetite actually improved today prior to the pain intensified. She specifically denies any difficulty with fevers or chills. She has not noticed any impact to her urinary habits. She states more generally that this pain has been present ever since she underwent a lap magdalene with Dr. Holloway April 11, 2022. She reports that she has expressed these concerns multiple times to her primary care provider but was assured that she just needed to give it more time. Patient's ER workup is notable for CBC with leukocytosis of 14.[address] imaging of the abdomen pelvis was performed without contrast but shows a 4.4 cm retrocecal abscess concerning for possible neoplastic perforation versus perforated diverticulitis. Patient shares a chronic history of anemia and states that she takes 6 iron tablets daily for this issue which she has done since roughly the age of 14. As a result she does have chronically dark-colored stools. Also as part of this diagnosis she confirms a history of close following with colonoscopies. She believes she has had 4 total colonoscopies in her adult life. She states the last colonoscopy was 3-1/2 to [address] Ronquillo. She denies any significant findings that she can recall or any special follow-up. Patient notes that she is adopted and therefore her family history is unclear, however, she reports that she recently discovered that she is 50% Ashkenazi Taoist and she attributes many of her allergies (stating that she is allergic to even air [she] breathes to this background. [facility] Medical History (Updated 03/05/23 @ 21:[address] Stas Arredondo, DO) Diabetes mellitus Home Medications ondansetron 4 mg disintegrating tablet 4 mg PO Q8H PRN PRN Nausea #20 tabs 12/21/20 [Rx Last Taken Unknown] Allergy/AdvReac Type Severity Reaction Status Date / Time diphenhydramine Allergy PT UNSURE Verified 12/21/20 18:22 [From Benadryl] OF REACTION Penicillins Allergy PT UNSURE Verified 12/21/20 18:22 OF REACTION Surgical History (Updated 03/05/23 @ 19:[address] Stas Arredondo, ) Hx of cholecystectomy Social History Smoking Status: Never smoker ROS Constitutional Constitutional: Reports fatigue; Denies change in weight or chills Gastrointestinal Gastrointestinal: Reports abdominal pain and constipation; Denies diarrhea, melena or nausea Vital Signs Vital Signs Vital Signs: 03/05/23 18:59 03/05/23 21:57 Temperature 95.7 F L Temperature Source Temporal Pulse Rate 96 103 H Respiratory Rate 16 16 Blood Pressure 155/65 H 144/74 H Blood Pressure Mean 95 97 Pulse Ox 99 98 Oxygen Delivery Method Room Air Room Air Weight Weight: 172 lb 14.4 oz Body Mass Index (BMI) 30.6 Physical Exam Const alert and well nourished Constitutional Narrative: Anxious and easily distracted with tangential speech General Appearance: cooperative Resp normal respiratory effort GI GI Narrative: Obese, well-healed surgical scars from prior laparoscopy (including infraum bilical scar), soft, mildly tender to palpation in right lower quadrant without guarding or peritoneal signs Results Lab / Micro Data 03/05/23 19:45 03/05/23 19:45 Labs: Laboratory Results - last 24 hr 03/05/23 19:30: Urine Color Yellow, Urine Clarity Sl. Cloudy, Urine pH 5.0, Ur Specific [place] 1.025, Urine Protein 30 H, Urine Glucose (UA) Normal, Urine Ketones 5 H, Urine Occult Blood 10 H, Urine Nitrite Negative, Urine Bilirubin 3 H, Urine Urobilinogen 1 H, Ur Leukocyte Esterase 100 H, Urine RBC 0 SEEN, Urine WBC 0-5 SEEN, Ur Squamous Epith Cells 0-5 SEEN, Urine Bacteria 1+, Urine Mucus 0 SEEN 03/05/23 19:45: WBC 14.9 H, RBC 4.79, Hgb 10.7 L, Hct 35.7 L, MCV 74.5 L, MCH 22.3 L, MCHC 30.0 L, RDW Std Deviation 36.4, RDW Coeff of Anand 13.5, Plt Count 474 H, MPV 9.6, Immature Gran % (Auto) 0.700, Neut % (Auto) 83.7 H, Lymph % (Auto) 7.9 L, [place] % (Auto) 6.6, Eos % (Auto) 0.8, Baso % (Auto) 0.3, Absolute Neuts (auto) 12.5 H, Absolute Lymphs (auto) 1.18, Nucleated RBC % 0, Sodium 137, Potassium 3.9, Chloride 102, Carbon Dioxide 27.0, Anion Gap 8, BUN 16, Creatinine 0.82, Estim Creat Clear Calc 58.78, Est GFR (MDRD) Af Amer 87, Est GFR (MDRD) Non-Af 72, BUN/Creatinine Ratio 19.5, Glucose 252 H, Hemoglobin A1c 6.6 H, Calcium 9.2, Total Bilirubin 0.30, AST 6 L, ALT 11 L, Alkaline Phosphatase 107, Total Protein 7.3, Albumin 2.8 L, Globulin 4.5 H, Albumin/Globulin Ratio 0.6 L, Lipase 13 Imagaing Radiology Impression Abdomen/Pelvis CT 03/05/23 20:03 IMPRESSION: Very limited by the absence of IV and especially oral contrast. Extensive inflammatory process of the right lower quadrant associated with irregular bowel wall thickening of the right colon, probable perforation, and retrocecal abscess. Findings could represent perforated diverticulitis or perforated neoplasm. Colonoscopy is indicated. Nonobstructing left renal stone. The Nonstandard Physician Communication protocol was initiated. Electronically Signed: Cristino Gonzalez MD at 20:58 EST , ADDENDUM: 03/05/23 221 IMPRESSION: Very limited by the absence of IV and especially oral contrast. Extensive inflammatory process of the right lower quadrant associated with irregular bowel wall thickening of the right colon, probable perforation, and retrocecal abscess. Findings could represent perforated diverticulitis or perforated neoplasm. Colonoscopy is indicated. Nonobstructing left renal stone. The Nonstandard Physician Communication protocol was initiated. N.B. : Stas Arredondo DO, confirmed on 03/05/2023 22:04:07 (ET) that the healthcare facility has received the radiology report. Electronically Signed: Cristino Gonzalez MD at 20:58 EST , Assessment & Plan Assessment/Plan (1) Retrocecal abscess: (2) Right lower quadrant abdominal pain: PLAN: Plan This is a 77-year-old female who presents with acute on chronic right lower quadrant abdominal discomfort and associated fatigue complaints his ER workup shows evidence of acute infectious process with leukocytosis and CT imaging concerning for a 4.4 cm retrocecal abscess. Etiology for this abscess is unclear at present but differential would include possible perforated appendicitis, possible perforated diverticulitis, possible perforated neoplasm... I have tried to convey this information to Ms. Collado as well as the limitations of her understanding of her diagnosis using accompanying hand drawings to illustrate the relevant anatomy. She appears very apprehensive and undecided?even suggesting that she could be dismissed home and follow-up with her primary care provider before committing to treatment. I have tried to impress upon her that this must be dealt with in an expedient fashion and recommended to her that we proceed with treatment here at [facility] or otherwise seek transfer to a [facility] facility where she apparently has more extensive medical records. She confirms her intent to see her care through here [facility] and I therefore recommend that we proceed with repeat CT imaging with oral and IV contrast as a means of hopefully providing more preoperative information. Even still, I have counseled her that we would be looking to consent her for an operation could include possible appendectomy versus possible cecectomy versus possible right hemicolectomy?and that this is the side a moment would likely be intraoperative and is contingent on intraoperative findings. When asked what the risks of this procedure would be, I have shared that this would be accompanied by anastomotic failure risk as well as risk for persistent loose stools postoperatively. Patient initially seems very hung up on this latter possibility, but understands that it could be an excepted side effect secondary to some of the other diagnoses considered. For the present we will proceed with n.p.o. status, empiric IV antibiotic therapy, repeat CT imaging, and plans to proceed to the OR tomorrow. Charges/Coding Visit Charges Inpatient E&M: 17768 Init Hosp L2
--- OUTSIDE RECORDS SUMMARY | 2023-03-05 23:06 | XMS RPT_ITS | CCD ---
Author Name Unknown Address [address] [place] [address] Organization [facility] Care Team Providers Care Facsimile Operator Name Role Phone TIFFANY RONQUILLO Admitting [...] Referring Unavailable PEARCE, JEFF L Attending Unavailable PERACE, JEFF L Primary Care Unavailable PEARCE, JEFF [...] [DIPHENHYDRAMIN E HCL] Drug Allergy 6 Swelling [facility] Repository (20 sources) Hmg-Coa Reductase Inhibitors (Statins); Translations: [CLMUQKC-FQD-SD A REDUCTASE INHIBITORS] Propensity to adverse reactions to drug (disorder) 6 Contraindicatio n-Medical Surgical [facility] Repository (20 sources) Penicillins; Translations: [PENICILLINS] Propensity to adverse reactions to drug (disorder) 6 Shortness of Breath [facility] Rep[facility] Medications Current Medications Medication Drug Class(es) [...] 12-08-2022 10:00-0400 Body temperature 96.4 [degF] Jeff King.com DO Work Phone: [facility] 12-08-2022 10:00-0400 Body weight 82.56 kg Jeff Pearce DO Work Phone: [facility] 12-08-2022 10:00-0400 Diastolic blood pressure 60 mm[Hg] Iceotoperison DO Work Phone: [facility] 12-08-2022 10:00-0400 Heart rate 88 /min Jeff Pearce DO Work Phone: [facility] 12-08-2022 10:00-0400 Respiratory rate 16 /min Jeff Pearce DO Work Phone: [facility] 12-08-2022 10:00-0400 Systolic blood pressure 116 mm[Hg] Jeff Pearce DO Work Phone: [facility] 05-24-2022 16:10-0400 Body temperature 97.39 [degF] Jeff Pearce DO Work Phone: [facility] 05-24-2022 16:10-0400 Body weight 80.29 kg Jeff Pearce DO Work Phone: [facility] 05-24-2022 16:10-0400 Diastolic blood pressure 78 mm[Hg] Jeff Pearce DO Work Phone: [facility] 05-24-2022 16:10-0400 Heart rate 80 /min Jeff Pearce DO Work Phone: [facility] 05-24-2022 16:10-0400 Respiratory rate 16 /min Jeff Pearce DO Work Phone: [facility] 05-24-2022 16:10-0400 Systolic blood pressure 150 mm[Hg] Jeff Pearce DO Work Phone: [facility] 04-13-2022 09:01-0500 Body temperature 97.59 [degF] Amado Beth PA-C Work Phone: [facility] 04-13-2022 09:01-0500 Body weight 82.64 kg Amado Beth PA-C Work Phone: [facility] 04-13-2022 09:01-0500 Diastolic blood pressure 66 mm[Hg] Amado Sayre PA-C Work Phone: [facility] 04-13-2022 09:01-0500 Heart rate 118 /min Amado Beth PA-C Work Phone: [facility] 04-13-2022 09:01-0500 SaO2% (BldA) [Mass fraction] 96 % Amado Sayre PA-C Work Phone: [facility] 04-13-2022 09:01-0500 Systolic blood pressure 138 mm[Hg] Amado Sayre PA-C Work Phone: [facility] 04-10-2022 13:38-0500 Body height 160 cm Amado Sayre PA-C Work Phone: [facility] 04-10-2022 13:38-0500 Body temperature 97.2 [degF] Amado Sayre PA-C Work Phone: [facility] 04-10-2022 13:38-0500 Body weight 83.92 kg Amado Sayre PA-C Work Phone: [facility] 04-10-2022 13:38-0500 Diastolic blood pressure 58 mm[Hg] Amado Beth PA-C Work Phone: [facility] 04-10-2022 13:38-0500 Heart rate 117 /min Amado Sayre PA-C Work Phone: [facility] 04-10-2022 13:38-0500 SaO2% (BldA) [Mass fraction] 93 % Amado Sayre PA-C Work Phone: [facility] 04-10-2022 13:38-0500 Systolic blood pressure 118 mm[Hg] Amado Sayre PA-C Work Phone: [facility] 04-03-2022 11:11-0500 Body height 160 cm Pacc 1 Work Phone: [facility] 04-03-2022 11:11-0500 Body temperature 97.59 [degF] Pacc 1 Work Phone: [facility] 04-03-2022 11:11-0500 Body weight 83.92 kg Pacc 1 Work Phone: [facility] 04-03-2022 11:11-0500 Diastolic blood pressure 70 mm[Hg] Pacc 1 Work Phone: [facility] 02-20-2023 11:11-0500 Heart rate 91 /min Pacc 1 Work Phone: [facility] 04-03-2022 11:11-0500 Respiratory rate 14 /min Pacc 1 Work Phone: [facility] 04-03-2022 11:11-0500 SaO2% (BldA) [Mass fraction] 97 % Pacc 1 Work Phone: [facility] 04-03-2022 11:11-0500 Systolic blood pressure 118 mm[Hg] Pacc 1 Work Phone: [facility] 03-24-2022 10:27-0500 Body height 160 cm Rodriguez Louie MD Work Phone: [facility] 03-24-2022 10:27-0500 Body temperature 96.8 [degF] Rodriguez Louie MD Work Phone: [facility] 03-24-2022 10:27-0500 Body weight 84.37 kg Rodriguez Louie MD Work Phone: [facility] 03-24-2022 10:27-0500 Diastolic blood pressure 64 mm[Hg] Rodriguez Louie MD Work Phone: [facility] 03-24-2022 10:27-0500 Heart rate 113 /min Rodriguez Louie MD Work Phone: [facility] 03-24-2022 10:27-0500 SaO2% (BldA) [Mass fraction] 98 % Rodriguez Louie MD Work Phone: [facility] 03-24-2022 10:27-0500 Systolic blood pressure 124 mm[Hg] Rodriguez Louie MD Work Phone: [facility] 02-20-2022 09:30-0500 Body temperature 97.11 [degF] Jeff Pearce DO Work Phone: [facility] 02-20-2022 09:30-0500 Body weight 86.18 kg Jeff Pearce DO Work Phone: [facility] 02-20-2022 09:30-0500 Diastolic blood pressure 60 mm[Hg] Jeff Pearce DO Work Phone: [facility] 02-20-2022 09:30-0500 Heart rate 80 /min Jeff Pearce DO Work Phone: [facility] 02-20-2022 09:30-0500 Respiratory rate 16 /min Jeff Pearce DO Work Phone: [facility] 02-20-2022 09:30-0500 Systolic blood pressure 124 mm[Hg] Jeff Pearce DO Work Phone: [facility] 11-15-2021 09:11-0400 Body temperature 96.3 [degF] Jeff Pearce DO Work Phone: [facility] 11-15-2021 09:11-0400 Body weight 87.54 kg Jeff Pearce DO Work Phone: [facility] 11-15-2021 09:11-0400 Diastolic blood pressure 60 mm[Hg] Jeff Pearce DO Work Phone: [facility] 11-15-2021 09:11-0400 Heart rate 88 /min Jeff Pearce DO Work Phone: [facility] 11-15-2021 09:11-0400 Respiratory rate 16 /min Jeff Pearce DO Work Phone: [facility] 11-15-2021 09:11-0400 Systolic blood pressure 124 mm[Hg] Jeff Pearce DO Work Phone: [facility] 05-30-2021 09:15-0400 Body temperature 97 [degF] Jeff Pearce DO Work Phone: [facility] 05-30-2021 09:15-0400 Body weight 92.08 kg Jeff Pearce DO Work Phone: [facility] 05-30-2021 09:15-0400 Diastolic blood pressure 70 mm[Hg] Jeff Pearce DO Work Phone: [facility] 05-30-2021 09:15-0400 Heart rate 80 /min Jeff Pearce DO Work Phone: [facility] 05-30-2021 09:15-0400 Respiratory rate 20 /min Jeff Pearce DO Work Phone: [facility] 05-30-2021 09:15-0400 Systolic blood pressure 110 mm[Hg] Jeff Pearce DO Work Phone: [facility] Encounters Encounter Date Encounter Type Care Provider Facility Start: 02-28-2023 End: 03-01-2023 ambulatory JEFF L PEARCE Facility:[facility] Start: 02-22-2023 End: 02-22-2023 ambulatory JEFF L PEARCE Facility:[facility] Start: 02-08-2023 End: 02-08-2023 ambulatory JEFF L PEARCE Facility:[facility] Start: 01-25-2023 End: 01-25-2023 ambulatory JEFF L PEARCE Facility:[facility] Start: 01-25-2023 End: 01-25-2023 Nursing evaluation of [...] Activity Detail Author Start: 02-27-2028 Colonoscopy COLONOSCOPY [facility] Start: 02-27-2028 COLORECTAL CANCER SCREENING COLORECTAL CANCER SCREENING [facility] Start: 02-27-2028 Screening for malign ant neoplasm of colon [facility] Start: 12-09-2023 Annual PCP Team Manager Of Application Development beba Disease Visit Annual PCP Team Chronic Disease Visit [facility] Start: 12-09-2023 BP Controlled (<130/80) BP Controlle d (<130/80) [facility] Start: 12-09-2023 Covid-19 Vaccine ( season) Covid-19 Vaccine ( season) [facility] Immunizations Immunization Date Immunization Notes Care Provider Luiz mcdonald 08-25-2020 COVID-19 vaccine (JONATHAN) Jeff Pearce DO Work Phone: [facility] 01-21-2018 influenza virus vacc ine, unspecified formulation Mi Nurse Work Phone: [facility] 05-16-2014 pneumococcal polysaccharide vaccine, 23 valent Jeff Kentrison DO Work Phone: [facility] 05-16-2010 tetanus toxoid, redu mervat diphtheria toxoid, and acellular pertussis vaccine, adsorbed Jeff Kentrison DO Work Phone: [facility] Payers Date Payer Category Payer Medicare AET MEDICARE A ETNA MEDICARE HMO [id number] 2021-Present [phone] [address] [place] [address] [facility] [id number] 2021 Medicare AETNA MEDICARE A ETNA MEDICARE HMO [id number] 2021-Present [phone] [address] [place] [address] [facility] [id number] 2021 Medicare [id number] Social History Date Type Detail Facility Start: 05-17-2015 End: 02-20-2022 Tobacco smoking status NHIS Never smoked tobacco [facility] Work Phone: Start: 05-17-2015 End: 02-20-2022 Tobacco use and exposure Smokeless tobacco non-user [facility] Work Phone: Start: 02-22-2021 End: 12-08-2022 Alcohol intake Current non-drinker of alcohol (finding) [facility] Start: 1945 Sex Assigned At Not on file [facility] Start: 05-20-2021 End: 11-15-2021 Exposure to SARS-CoV-2 (event) Not sure [facility] Work Phone: Start: 07-11-2022 End: 09-05-2022 History of Social function [facility] Work Phone: Start: 07-11-2022 End: 09-05-2022 Tobacco use panel [facility] Work Phone: Adult Depression Screening Assessment 0 [facility] Work Phone: Medical Equipment Procedure Code [...] Type Note Facility 02-22-2023 Note HNO ID: [id number] Author: HI EDMOND LPN Service: ? Author Type: LICENSED NURSE Type: Progress Notes Filed: 02/22/2023 10:19 Note Text: Patient presents for B-12 injection. Denies any problems at this time. Patient instructed on any SE of medication, verbalized understanding and agreed to proceed with treatment. Tolerated injection well. Hi Edmond LPN [facility] 02-08-2023 Note HNO ID: [id number] Author: Hi Edmond LPN Service: ? Author Type: LICENSED NURSE Type: Progress Notes Filed: 02/08/2023 10:16 AM Note Text: Patient presents for B-12 injection. Denies any problems at this time. Patient instructed on any SE of medication, verbalized understanding and agreed to proceed with treatment. Tolerated injection well. Hi Edmond LPN [facility] 01-25-2023 Note HNO ID: [id number] Author: Hi Edmond LPN Service: ? Author Type: ? Type: Progress Notes Filed: 01/25/2023 10:23 AM Note Text: Patient presents for B-12 injection. Denies any problems at this time. Patient instructed on any SE of medication, verbalized understanding and agreed to proceed with treatment. Tolerated injection well. Hi Edmond LPN [facility] 01-25-2023 History of Present illness Narrative Patient presents for B-12 injection. Denies any problems at this time. Patient instructed on any SE of medication, verbalized understanding and agreed to proceed with treatment. Tolerated injection well. Hi Edmond LPN documented in this encounter [facility] 01-11-2023 Note HNO ID: [id number] Author: Hi Edmond LPN Service: ? Author Type: ? Type: Progress Notes Filed: 01/11/2023 10:38 AM Note Text: Patient presents for B-12 injection. Denies any problems at this time. Patient instructed on any SE of medication, verbalized understanding and agreed to proceed with treatment. Tolerated injection well. Hi Edmond LPN [facility] 12-28-2022 Note HNO ID: [id number] Author: iH Edmond LPN Service: ? Author Type: ? Type: Progress Notes Filed: 12/28/2022 10:07 AM Note Text: Patient presents for B-12 injection. Denies any problems at this time. Patient instructed on any SE of medication, verbalized understanding and agreed to proceed with treatment. Tolerated injection well. Hi Edmond LPN [facility] 12-28-2022 History of Present illness Narrative Patient presents for B-12 injection. Denies any problems at this time. Patient instructed on any SE of medication, verbalized understanding and agreed to proceed with treatment. Tolerated injection well. Hi Edmond LPN documented in this encounter [facility] 12-14-2022 Note HNO ID: [id number] Author: Hi Edmond LPN Service: ? Author Type: ? Type: Progress Notes Filed: 12/14/2022 10:12 AM Note Text: Patient presents for B-12 injection. Denies any problems at this time. Patient instructed on any SE of medication, verbalized understanding and agreed to proceed with treatment. Tolerated injection well. Hi Marcosortega ELLIOTT [facility] 12-12-2022 Note HNO ID: [id number] Author: Jeff Pearce, Service: ? Author Type: [...] WHEN PFRMD 08/25/2003 adenomatous polyp and diverticulosis. [facility] COLONOSCOPY FLX DX W/COLLJ SPEC WHEN PFRMD 09/28/2006 No polyps found. 5 yr recall. [facility]X DX W/COLLJ SPEC WHEN PFRMD 02/26/2018 Colonoscopy ESOPHAGOGASTRODUODENOSCOPY TRANSORAL DIAGNOSTIC 08/31/2003 Unremarkable, negative biopsies. [facility] ESOPHAGOGASTRODUODENOSCOPY TRANSORAL DIAGNOSTIC 02/26/2018 EGD LAPAROSCOPIC CHOLECYSTECTOMY 04/05/2022 REMV CATARACT EXTRACAP,INSERT LENS Bilateral TONSILLECTOMY HX Social History Tobacco Use Smoking status: Never Smokeless tobacco: Never Vaping Use Vaping Use: Never used Substance Use Topics Alcohol use: No Drug use: No FAMILY HISTORY Adopted: Yes Allergies: ALLERGIES Allergen Reactions Benadryl [Diphenhyd* Swelling Penicillins Shortness of Breath Sshoeai-Zep-Tym Red* Contraindication-Medical Surgical History of liver failure [...] mg EC ta (more content not included)... [facility] 12-12-2022 History of Present illness Narrative Patient [...] HISTORY Diagnosis Date Advance care planning 08/24/2021 [facility] Diabetes mellitus, type 2 (HCC) Environmental allergies Hyperlipidemia Hypothyroidism, unspecified Liver failure (HCC) 2004 unsure of cause Migraine headache onset age 7 PAST SURGICAL HISTORY Procedure Laterality Date BREAST BIOPSY NEEDLE LEFT 12/31/2014 x 2, Dr. Ronquillo COLONOSCOPY FLX DX W/COLLJ SPEC WHEN PFRMD 08/25/2003 adenomatous polyp and diverticulosis. [facility] COLONOSCOPY FLX DX W/COLLJ SPEC WHEN PFRMD 09/28/2006 No polyps found. 5 yr recall. [facility]. [facility] COLONOSCOPY FLX DX W/COLLJ SPEC WHEN PFRMD 02/26/2018 Colonoscopy ESOPHAGOGASTRODUODENOSCOPY TRANSORAL DIAGNOSTIC 08/31/2003 Unremarkable, negative biopsies. [facility] ESOPHAGOGASTRODUODENOSCOPY TRANSORAL DIAGNOSTIC 02/26/2018 EGD LAPAROSCOPIC CHOLECYSTECTOMY 04/05/2022 REMV CATARACT EXTRACAP,INSERT LENS Bilateral TONSILLECTOMY HX Social History Tobacco Use Smoking status: Never Smokeless tobacco: Never Vaping Use Vaping Use: Never used Substance Use Topics Alcohol use: No Drug use: No FAMILY HISTORY Adopted: Yes Allergies: ALLERGIES Allergen Reactions Benadryl [Diphenhyd* Swelling Penicillins Shortness of Breath Sownqiz-Fpw-Rdl Red* Contraindication-Medical Surgical History of liver failure [...] with the plan. Jeff Pearce DO [address] [place] [address] documented in this encounter [facility] 11-30-2022 Note HNO ID: [id number] Author: Hi Edmond LPN Service: ? Author Type: ? Type: Progress Notes Filed: 11/30/2022 9:17 AM Note Text: Patient presents for B-12 injection. Denies any problems at this time. Patient instructed on any SE of medication, verbalized understanding and agreed to proceed with treatment. Tolerated injection well. Hi Edmond LPN [facility] 11-30-2022 History of Present illness Narrative Patient presents for B-12 injection. Denies any problems at this time. Patient instructed on any SE of medication, verbalized understanding and agreed to proceed with treatment. Tolerated injection well. Hi Edmond LPN documented in this encounter [facility] 11-16-2022 Note HNO ID: [id number] Author: Hi Edmond LPN Service: ? Author Type: ? Type: Progress Notes Filed: 11/16/2022 9:02 AM Note Text: Patient presents for B-12 injection. Denies any problems at this time. Patient instructed on any SE of medication, verbalized understanding and agreed to proceed with treatment. Tolerated injection well. Hi Edmond LPN [facility] 11-16-2022 History of Present illness Narrative Patient presents for B-12 injection. Denies any problems at this time. Patient instructed on any SE of medication, verbalized understanding and agreed to proceed with treatment. Tolerated injection well. Hi Edmond LPN documented in this encounter [facility] 11-03-2022 Note HNO ID: [id number] Author: Hi Edmond LPN Service: ? Author Type: ? Type: Progress Notes Filed: 11/03/2022 8:58 AM Note Text: Patient presents for B-12 injection. Denies any problems at this time. Patient instructed on any SE of medication, verbalized understanding and agreed to proceed with treatment. Tolerated injection well. Hi Edmond LPN [facility] 11-03-2022 History of Present illness Narrative Patient presents for B-12 injection. Denies any problems at this time. Patient instructed on any SE of medication, verbalized understanding and agreed to proceed with treatment. Tolerated injection well. Hi Edmond LPN documented in this encounter [facility] 10-17-2022 Note HNO ID: [id number] Author: Hi Edmond LPN Service: ? Author Type: ? Type: Progress Notes Filed: 10/17/2022 9:15 AM Note Text: Patient presents for B-12 injection. Denies any problems at this time. Patient instructed on any SE of medication, verbalized understanding and agreed to proceed with treatment. Tolerated injection well. Hi Edmond LPN [facility] 10-17-2022 History of Present illness Narrative Patient presents for B-12 injection. Denies any problems at this time. Patient instructed on any SE of medication, verbalized understanding and agreed to proceed with treatment. Tolerated injection well. Hi Edmond LPN documented in this encounter [facility] 10-05-2022 Miscellaneous Notes Left detailed message on voicemail that labs are normal Maribeth Andrade Ma Please inform patient that her recent liver enzyme labs and free t4 thyroid levels are normal Jeff Pearce DO documented in this encounter [facility] 10-02-2022 Note HNO ID: [id number] Author: Hi Edmond LPN Service: ? Author Type: ? Type: Progress Notes Filed: 10/02/2022 9:50 AM Note Text: Patient presents for B-12 injection. Denies any problems at this time. Patient instructed on any SE of medication, verbalized understanding and agreed to proceed with treatment. Tolerated injection well. Hi Edmond LPN [facility] 10-02-2022 History of Present illness Narrative Patient presents for B-12 injection. Denies any problems at this time. Patient instructed on any SE of medication, verbalized understanding and agreed to proceed with treatment. Tolerated injection well. Hi Edmond LPN documented in this encounter [facility] 09-19-2022 Note HNO ID: [id number] Author: Hi Edmond LPN Service: ? Author Type: ? Type: Progress Notes Filed: 09/19/2022 9:32 AM Note Text: Patient presents for B-12 injection. Denies any problems at this time. Patient instructed on any SE of medication, verbalized understanding and agreed to proceed with treatment. Tolerated injection well. Hi Edmond LPN [facility] 09-19-2022 History of Present illness Narrative Patient presents for B-12 injection. Denies any problems at this time. Patient instructed on any SE of medication, verbalized understanding and agreed to proceed with treatment. Tolerated injection well. Hi Edmond LPN documented in this encounter [facility] 09-05-2022 Note HNO ID: [id number] Author: Jeff Pearce, Service: ? Author Type: [...] WHEN PFRMD 08/25/2003 adenomatous polyp and diverticulosis. [facility] COLONOSCOPY FLX DX W/COLLJ SPEC WHEN PFRMD 09/28/2006 No polyps found. 5 yr recall. [facility]ue[facility]a. [facility] COLONOSCOPY FLX DX W/COLLJ SPEC WHEN PFRMD 02/26/2018 Colonoscopy ESOPHAGOGASTRODUODENOSCOPY TRANSORAL DIAGNOSTIC 08/31/2003 Unremarkable, negative biopsies. [facility] ESOPHAGOGASTRODUODENOSCOPY TRANSORAL DIAGNOSTIC 02/26/2018 EGD LAPAROSCOPIC CHOLECYSTECTOMY 04/05/2022 REMV CATARACT EXTRACAP,INSERT LENS Bilateral TONSILLECTOMY HX Social History Tobacco Use Smoking status: Never Smokeless tobacco: Never Vaping Use Vaping Use: Never used Substance Use Topics Alcohol use: No Drug use: No FAMILY HISTORY Adopted: Yes Allergies: ALLERGIES Allergen Reactions Benadryl [Diphenhyd* Swelling Penicillins Shortness of Breath Nojbriq-Vxy-Cea Red* Contraindication-Medical Surgical History of liver failure [...] 3 lancets (ONE (more content not included)... [facility] 08-07-2022 Note HNO ID: [id number] Author: Hi Edmond LPN Service: ? Author Type: ? Type: Progress Notes Filed: 08/07/2022 11:25 AM Note Text: Patient presents for B-12 injection. Denies any problems at this time. Patient instructed on any SE of medication, verbalized understanding and agreed to proceed with treatment. Tolerated injection well. Hi Edmond LPN [facility] 08-07-2022 History of Present illness Narrative Patient presents for B-12 injection. Denies any problems at this time. Patient instructed on any SE of medication, verbalized understanding and agreed to proceed with treatment. Tolerated injection well. Hi Edmond LPN documented in this encounter [facility] 07-11-2022 Note HNO ID: [id number] Author: Hi Edmond LPN Service: ? Author Type: ? Type: Progress Notes Filed: 07/11/2022 9:35 AM Note Text: Patient presents for B-12 injection. Denies any problems at this time. Patient instructed on any SE of medication, verbalized understanding and agreed to proceed with treatment. Tolerated injection well. Hi Edmond LPN [facility] 07-11-2022 History of Present illness Narrative Patient presents for B-12 injection. Denies any problems at this time. Patient instructed on any SE of medication, verbalized understanding and agreed to proceed with treatment. Tolerated injection well. Hi Edmond LPN documented in this encounter [facility] 06-12-2022 Note HNO ID: [id number] Author: Hi Edmond LPN Service: ? Author Type: ? Type: Progress Notes Filed: 06/12/2022 9:32 AM Note Text: Patient presents for B-12 injection. Denies any problems at this time. Patient instructed on any SE of medication, verbalized understanding and agreed to proceed with treatment. Tolerated injection well. Hi Edmond LPN [facility] 06-12-2022 History of Present illness Narrative Patient presents for B-12 injection. Denies any problems at this time. Patient instructed on any SE of medication, verbalized understanding and agreed to proceed with treatment. Tolerated injection well. Hi Edmond LPN documented in this encounter [facility] 05-26-2022 Note HNO ID: [id number] Author: Jeff L Pearce, DO Service: ? [...] HISTORY Diagnosis Date Advance care planning 08/24/2021 [facility] Diabetes mellitus, type 2 (HCC) Environmental allergies Hyperlipidemia Hypothyroidism, unspecified Liver failure (HCC) 2005 unsure of cause Migraine headache onset age 7 PAST SURGICAL HISTORY Procedure Laterality Date BREAST BIOPSY NEEDLE LEFT 12/31/2014 x 2, Dr. Ronquillo COLONOSCOPY FLX DX W/COLLJ SPEC WHEN PFRMD 08/25/2003 adenomatous polyp and diverticulosis. [facility] COLONOSCOPY FLX DX W/COLLJ SPEC WHEN PFRMD 09/28/2006 No polyps found. 5 yr recall. [facility] COLONOSCOPY FLX DX W/COLLJ SPEC WHEN PFRMD 02/26/2018 Colonoscopy ESOPHAGOGASTRODUODENOSCOPY TRANSORAL DIAGNOSTIC 08/31/2003 Unremarkable, negative biopsies. [facility] ESOPHAGOGASTRODUODENOSCOPY TRANSORAL DIAGNOSTIC 02/26/2018 EGD LAPAROSCOPIC CHOLECYSTECTOMY 04/05/2022 REMV CATARACT EXTRACAP,INSERT LENS Bilateral TONSILLECTOMY HX Social History Tobacco Use Smoking status: Never Smokeless tobacco: Never Vaping Use Vaping Use: Never used Substance Use Topics Alcohol use: No Drug use: No FAMILY HISTORY Adopted: Yes Allergies: ALLERGIES Allergen Reactions Benadryl [Diphenhyd* Swelling Penicillins Shortness of Breath Heprsxc-Ppo-Yoh Red* Contraindication-Medical Surgical History of liver failure [...] 500 mg ta (more content not included)... [facility] 05-26-2022 History of Present illness Narrative Patient [...] WHEN PFRMD 08/25/2003 adenomatous polyp and diverticulosis. [facility] COLONOSCOPY FLX DX W/COLLJ SPEC WHEN PFRMD 09/28/2006 No polyps found. 5 yr recall. [facility] COLONOSCOPY FLX DX W/COLLJ SPEC WHEN PFRMD 02/26/2018 Colonoscopy ESOPHAGOGASTRODUODENOSCOPY TRANSORAL DIAGNOSTIC 08/31/2003 Unremarkable, negative biopsies. [facility] ESOPHAGOGASTRODUODENOSCOPY TRANSORAL DIAGNOSTIC 02/26/2018 EGD LAPAROSCOPIC CHOLECYSTECTOMY 04/05/2022 REMV CATARACT EXTRACAP,INSERT LENS Bilateral TONSILLECTOMY HX Social History Tobacco Use Smoking status: Never Smokeless tobacco: Never Vaping Use Vaping Use: Never used Substance Use Topics Alcohol use: No Drug use: No FAMILY HISTORY Adopted: Yes Allergies: ALLERGIES Allergen Reactions Benadryl [Diphenhyd* Swelling Penicillins Shortness of Breath Cmuiarp-Zzx-Xwu Red* Contraindication-Medical Surgical History of liver failure [...] with the plan. Jeff Pearce DO [address] [place] [address] documented in this encounter [facility] 05-15-2022 Note HNO ID: [id number] Author: Hi Edmond LPN Service: ? Author Type: ? Type: Progress Notes Filed: 05/15/2022 9:03 AM Note Text: Patient presents for B-12 injection. Denies any problems at this time. Patient instructed on any SE of medication, verbalized understanding and agreed to proceed with treatment. Tolerated injection well. Hi Edmond LPN [facility] 05-15-2022 History of Present illness Narrative Patient presents for B-12 injection. Denies any problems at this time. Patient instructed on any SE of medication, verbalized understanding and agreed to proceed with treatment. Tolerated injection well. Hi Edmond LPN documented in this encounter [facility] 04-21-2022 Note HNO ID: [id number] Author: Amado Campos PA-C Service: ? Author Type: Physician Offset Label Rewinder Type: Progress Notes Filed: 04/21/2022 3:28 PM Note Text: FOLLOW UP VISIT - CHOLECYSTECTOMY NAME: Amado Glover [facility] NO.: [id number] DATE OF SERVICE: 04/13/2022 : 1945 REFERRING [...] with me as needed. Amado Campos PA-C [facility] 04-21-2022 History of Present illness Narrative FOLLOW UP VISIT - CHOLECYSTECTOMY NAME: Amado Glover [facility] NO.: [id number] DATE OF SERVICE: 04/13/2022 : 1945 REFERRING [...] Amado Campos PA-C documented in this encounter [facility] 04-17-2022 Note HNO ID: [id number] Author: Hi Edmond LPN Service: ? Author Type: ? Type: Progress Notes Filed: 04/17/2022 9:15 AM Note Text: Patient presents for B-12 injection. Denies any problems at this time. Patient instructed on any SE of medication, verbalized understanding and agreed to proceed with treatment. Tolerated injection well. Hi Edmond LPN [facility] 04-13-2022 Instructions Amado Campos PA-C - 04/13/2022 9:33 AM EST -Continue warm compresses as needed for discomfort -OK to begin walking dog in the next few days The following instructions are important for you related to your office visit today with the [facility] General Surgeons. INSTRUCTIONS FOLLOWING YOU RECENT GALLBLADDER [...] you should contact our office immediately @ [phone] and ask to be transferred to the General Surgery department. documented in this encounter [facility] 04-10-2022 Note HNO ID: [id number] Author: Amado Campos PA-C Service: ? Author Type: Physician Offset Label Rewinder Type: Progress Notes Filed: 04/17/2022 4:48 PM Note Text: FOLLOW UP VISIT - CHOLECYSTECTOMY NAME: Amado Glover [facility] NO.: [id number] DATE OF SERVICE: 04/10/2022 : 1945 REFERRING [...] me in 2 days. Amado Campos PA-C [facility] 04-10-2022 Instructions Amado Campos PA-C - 04/10/2022 2:07 PM EST -Heating pad/warm compresses -Aleve short-term for pain -May use abdominal binder when up and ambulating -Call immediately if any worsening symptoms The following instructions are important for you related to your office visit today with the [facility] General Surgeons. INSTRUCTIONS FOLLOWING YOU RECENT GALLBLADDER [...] you should contact our office immediately @ [phone] and ask to be transferred to the General Surgery department. documented in this encounter [facility] 04-10-2022 History of Present illness Narrative FOLLOW UP VISIT - CHOLECYSTECTOMY NAME: Amado Glover [facility] NO.: [id number] DATE OF SERVICE: 04/10/2022 : 1945 REFERRING [...] Amado Campos PA-C documented in this encounter [facility] 04-05-2022 Note HNO ID: [id number] Author: Kelly Jordan APRN.PLANNING AIDE Service: Anesthesiology Author Type: Nurse Director Of Exhibits Type: Anesthesia Procedure Notes Filed: 04/05/2022 7:52 AM Note Text: ANESTHESIOLOGY PROCEDURE NOTE Airway General Information Procedure Start Time/Medication Administration: 04/05/2022 7:40 AM Patient location during procedure: OR Timeout Performed Pre-procedure: timeout performed Consent Obtained: Yes Patient identity confirmed: arm band, 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 Please read below carefully for your personalized [...] Procedures: - YOU MUST HAVE A RESPONSIBLE LAUNCH OPERATOR TAKE YOU HOME. A CONSERVATION PLANNER OR RESEARCH EXECUTIVE CANNOT BE MADE A RESPONSIBLE LAUNCH OPERATOR. - We recommend that a responsible person [...] Advance Directive, please fax a copy to [phone] or email to for it to be [...] Yon Yee APRN.CNP documented in this encounter [facility] 04-03-2022 History and physical note HISTORY AND PHYSICAL EXAMINATION SERVICE DATE: 04/03/2022 SERVICE TIME: 11:40 AM PRIMARY CARE PHYSICIAN: Jeff Pearce DO REASON FOR VISIT: Amado Collado is [...] > 1 time per night or hematuria. PRECIPITATE WASHER: Negative for abnormal vaginal bleeding, abnormal vaginal [...] HISTORY Diagnosis Date Advance care planning 08/24/2021 [facility] Diabetes mellitus, type 2 (HCC) Environmental allergies Hyperlipidemia Hypothyroidism, unspecified Liver failure (HCC) 2005 unsure of cause Migraine headache onset age 7 PAST SURGICAL HISTORY Procedure Laterality Date BREAST BIOPSY NEEDLE LEFT 12/31/2014 x 2, Dr. Ronquillo COLONOSCOPY FLX DX W/COLLJ SPEC WHEN PFRMD 08/25/2003 adenomatous polyp and diverticulosis. [facility] COLONOSCOPY FLX DX W/COLLJ SPEC WHEN PFRMD 09/28/2006 No polyps found. 5 yr recall. [facility] COLONOSCOPY FLX DX W/COLLJ SPEC WHEN PFRMD 02/26/2018 Colonoscopy ESOPHAGOGASTRODUODENOSCOPY TRANSORAL DIAGNOSTIC 08/31/2003 Unremarkable, negative biopsies. [facility] ESOPHAGOGASTRODUODENOSCOPY TRANSORAL DIAGNOSTIC 02/26/2018 EGD REMV CATARACT [...] Benadryl [Diphenhyd* Swelling Penicillins Shortness of Breath Iplzphu-Uvp-Qlr Red* Contraindication-Medical Surgical History of liver failure [...] or any previous visit (from the past 42328 hour(s)). Assessment Patient has the following medical [...] large neck Non-male patient STOP-Bang Score: 2 [id number] Score: Age: 65-74 Sex: Female CHF history: No Hypertension history: Yes Stroke/TIA/thromboembolism history: No Vascular disease history: No Diabetes history: Yes [id number] Score: 4 ASA Class: 2 ANESTHESIA FINDINGS: Intubation History: No history of difficult intubation. No abnormal airway history Significant Anesthesia Considerations: Per patient in the past she's stopped breathing during 2 surgeries. Unsure why this was. Had surgery at [facility] [phone] without issues. potential difficult IV/vein access Airway [...] AM PAGER/CONTACT #: documented in this encounter [facility] 03-24-2022 Note HNO ID: [id number] Author: Rodriguez Louie MD Service: ? Author [...] more recently had an endoscopy performed at [facility] where the anesthesiologist told her that she [...] WHEN PFRMD 08/25/2003 adenomatous polyp and diverticulosis. [facility] COLONOSCOPY FLX DX W/COLLJ SPEC WHEN PFRMD 09/28/2006 No polyps found. 5 yr recall. [facility] COLONOSCOPY FLX DX W/COLLJ SPEC WHEN PFRMD 02/26/2018 Colonoscopy ESOPHAGOGASTRODUODENOSCOPY TRANSORAL DIAGNOSTIC 08/31/2003 Unremarkable, negative biopsies. [facility] ESOPHAGOGASTRODUODENOSCOPY TRANSORAL DIAGNOSTIC 02/26/2018 EGD TONSILLECTOMY HX [...] 1,000 mcg INTRAMUSCU (more content not included)... [facility] 03-24-2022 History of Present illness Narrative HISTORY [...] more recently had an endoscopy performed at [facility] where the anesthesiologist told her that she [...] HISTORY Diagnosis Date Advance care planning 08/24/2021 [facility] Diabetes mellitus, type 2 (HCC) Environmental allergies Hyperlipidemia Hypothyroidism, unspecified Liver failure (HCC) 2004 unsure of cause Migraine headache onset age 7 OPERATIONS: PAST SURGICAL HISTORY Procedure Laterality Date BREAST BIOPSY NEEDLE LEFT Dec 31 2014 x 2, Dr. Ronquillo COLONOSCOPY FLX DX W/COLLJ SPEC WHEN PFRMD 08/25/2003 adenomatous polyp and diverticulosis. [facility] COLONOSCOPY FLX DX W/COLLJ SPEC WHEN PFRMD 09/28/2006 No polyps found. 5 yr recall. [facility] COLONOSCOPY FLX DX W/COLLJ SPEC WHEN PFRMD 02/26/2018 Colonoscopy ESOPHAGOGASTRODUODENOSCOPY TRANSORAL DIAGNOSTIC 08/31/2003 Unremarkable, negative biopsies. [facility] ESOPHAGOGASTRODUODENOSCOPY TRANSORAL DIAGNOSTIC 02/26/2018 EGD TONSILLECTOMY HX [...] 0907 ALLERGIES: Benadryl [Diphenhydramine Hcl], Penicillins, and Xofocxt-Ofy-Vla Reductase Inhibitors PERSONAL HISTORY: Social History Tobacco Use Smoking status: Never Smokeless tobacco: Never Vaping Use Vaping Use: Never used Substance Use Topics Alcohol use: No Drug use: No FAMILY HISTORY: FAMILY HISTORY Adopted: Yes REVIEW OF SYMPTOMS: The review of systems data was entered by the nurse and reviewed by ri Nursing Notes: Sheri Roth LPN 03/24/2022 10:30 [...] Procedure: LAPAROSCOPIC CHOLECYSTECTOMY WITH INTRAOPERATIVE CHOLEANGIOGRAM - 25466-393 Planned antibiotic: clindamycin 900mg IVPB fractionating still operator to OR SCDs needed - Yes Offset Label Rewinder Needed - Yes Diagnoses: (R10.11) RUQ abdominal pain (K80.20) Calculus of gallbladder without cholecystitis without obstruction (K76.0) Fatty liver My findings have been communicated to Dr. Jeff Pearce DO via shared medical record. This note will be forwarded to Dr. Jeff Pearce DO. Rodriguez Louie MD documented in this encounter [facility] 03-24-2022 Nurse Note REVIEW OF SYSTEMS: [...] Sheri Roth LPN documented in this encounter [facility] 03-22-2022 Miscellaneous Notes Called PT LVM [...] on US results. documented in this encounter [facility] 03-20-2022 Note HNO ID: [id number] Author: Hi Edmond LPN Service: ? Author Type: ? Type: Progress Notes Filed: 03/20/2022 9:15 AM Note Text: Patient presents for B-12 injection. Denies any problems at this time. Patient instructed on any SE of medication, verbalized understanding and agreed to proceed with treatment. Tolerated injection well. Hi Edmond LPN [facility] 03-20-2022 History of Present illness Narrative Patient presents for B-12 injection. Denies any problems at this time. Patient instructed on any SE of medication, verbalized understanding and agreed to proceed with treatment. Tolerated injection well. Hi Edmond LPN documented in this encounter [facility] 03-09-2022 Note HNO ID: [id number] Author: Koki Samuels RDMS Service: ? Author Type: Neighborhood Conservation Officer Type: Progress Notes Filed: 03/09/2022 11:47 AM [...] Samuels RDMS March 09, 2022 11:46 AM [facility] 02-21-2022 History of Present illness Narrative Patient [...] WHEN PFRMD 08/25/2003 adenomatous polyp and diverticulosis. [facility] COLONOSCOPY FLX DX W/COLLJ SPEC WHEN PFRMD 09/28/2006 No polyps found. 5 yr recall. [facility] COLONOSCOPY FLX DX W/COLLJ SPEC WHEN PFRMD 02/26/2018 Colonoscopy ESOPHAGOGASTRODUODENOSCOPY TRANSORAL DIAGNOSTIC 08/31/2003 Unremarkable, negative biopsies. [facility] ESOPHAGOGASTRODUODENOSCOPY TRANSORAL DIAGNOSTIC 02/26/2018 EGD TONSILLECTOMY HX Social History Tobacco Use Smoking status: Never Smokeless tobacco: Never Substance Use Topics Alcohol use: No Drug use: No FAMILY HISTORY Adopted: Yes Allergies: ALLERGIES Allergen Reactions Benadryl [Diphenhyd* Swelling Penicillins Shortness of Breath Kbpfhua-Rgw-Vnp Red* Contraindication-Medical Surgical History of liver failure Current Meds: glimepiride (AMARYL) 2 mg tablet^Take 1 tablet by mouth daily with breakfast.^Disp: 90 tablet^Rfl: 3 lancets (ONE TOUCH DELICA) 33 gauge^Test blood sugar(s) twice daily. Dx: Type 2 DM - Controlled E11.9 Insulin: No^Disp: 1 Each^Rfl: 11 losartan (COZAAR) 50 mg tablet^Take 1 tablet by mouth once daily.^Disp: 90 tablet^Rfl: 3 Lancets ([employer] AmericaTOUCH ULTRASOFT LANCETS) lancets^Use once daily as directed [...] with supplements or by diet (goal of 0809-9961 mg/day - Set up for bone mineral [...] agreed with the plan. Jeff Pearce DO [address] [place] [address] documented in this encounter [facility] 01-17-2022 History of Present illness Narrative Patient presents for B-12 injection. Denies any problems at this time. Patient instructed on any SE of medication, verbalized understanding and agreed to proceed with treatment. Tolerated injection well. Hi Edmond LPN documented in this encounter [facility] 12-20-2021 History of Present illness Narrative Patient here for B12 injection. Given IM in right arm. Patient tolerated injection well. documented in this encounter [facility] 11-15-2021 History of Present illness Narrative [...] WHEN PFRMD 08/25/2003 adenomatous polyp and diverticulosis. [facility] COLONOSCOPY FLX DX W/COLLJ SPEC WHEN PFRMD 09/28/2006 No polyps found. 5 yr recall. [facility] COLONOSCOPY FLX DX W/COLLJ SPEC WHEN PFRMD 02/26/2018 Colonoscopy ESOPHAGOGASTRODUODENOSCOPY TRANSORAL DIAGNOSTIC 08/31/2003 Unremarkable, negative biopsies. [facility] ESOPHAGOGASTRODUODENOSCOPY TRANSORAL DIAGNOSTIC 02/26/2018 EGD TONSILLECTOMY HX Social History Tobacco Use Smoking status: Never Smokeless tobacco: Never Substance Use Topics Alcohol use: No Drug use: No FAMILY HISTORY Adopted: Yes Allergies: ALLERGIES Allergen Reactions Benadryl [Diphenhyd* Swelling Penicillins Shortness of Breath Ismpzbt-Mgo-Ppp Red* Contraindication-Medical Surgical History of liver failure [...] with the plan. Jeff Pearce DO [address] [place] [address] documented in this encounter [facility] 10-20-2021 History of Present illness Narrative Patient presents for B-12 injection. Denies any problems at this time. Patient instructed on any SE of medication, verbalized understanding and agreed to proceed with treatment. Tolerated injection well. Jael Connolly LPN documented in this encounter [facility] 07-18-2021 History of Present illness Narrative Patient presents for B-12 injection. Denies any problems at this time. Patient instructed on any SE of medication, verbalized understanding and agreed to proceed with treatment. Tolerated injection well. Hi Edmond LPN documented in this encounter [facility] 07-04-2021 History of Present illness Narrative Patient presents for B-12 injection. Denies any problems at this time. Patient instructed on any SE of medication, verbalized understanding and agreed to proceed with treatment. Tolerated injection well. Hi Edmond LPN documented in this encounter [facility] 06-20-2021 History of Present illness Narrative Patient presents for B-12 injection. Denies any problems at this time. Patient instructed on any SE of medication, verbalized understanding and agreed to proceed with treatment. Tolerated injection well. Hi Edmond LPN documented in this encounter [facility] 06-06-2021 History of Present illness Narrative Patient presents for B-12 injection. Denies any problems at this time. Patient instructed on any SE of medication, verbalized understanding and agreed to proceed with treatment. Tolerated injection well. Hi Edmond LPN documented in this encounter [facility] 05-31-2021 History of Present illness Narrative Patient presents with: Follow Up: 3 months HPI: Amado Collado is a 76 year old female who presents to the office today for review of health conditions. Concerns today: had an episode of food allergy reaction in Dec, symptoms are improved. Was seen at [facility] and given rx for prednisone and [...] WHEN PFRMD 08/25/2003 adenomatous polyp and diverticulosis. [facility] COLONOSCOPY FLX DX W/COLLJ SPEC WHEN PFRMD 09/28/2006 No polyps found. 5 yr recall. [facility] COLONOSCOPY FLX DX W/COLLJ SPEC WHEN PFRMD 02/26/2018 Colonoscopy ESOPHAGOGASTRODUODENOSCOPY TRANSORAL DIAGNOSTIC 08/31/2003 Unremarkable, negative biopsies. [facility] ESOPHAGOGASTRODUODENOSCOPY TRANSORAL DIAGNOSTIC 02/26/2018 EGD TONSILLECTOMY HX Social History Tobacco Use Smoking status: Never Smoker Smokeless tobacco: Never Used Substance Use Topics Alcohol use: No Drug use: No FAMILY HISTORY Adopted: Yes Allergies: ALLERGIES Allergen Reactions Benadryl [Diphenhyd* Swelling Penicillins Shortness of Breath Emxyonn-Efn-Acj Red* Contraindication-Medical Surgical History of liver failure [...] with the plan. Jeff Pearce DO [address] [place] [address] documented in this encounter [facility] 05-25-2021 Miscellaneous Notes Patient notified and verbalized understanding. Pt asking for Caroline results. Faxed request to [facility] & will place results on PCP [...] Caren Greenberg APRN.BLAYNE documented in this encounter [facility] 05-18-2021 Miscellaneous Notes Order faxed to [facility]. Pebbles Molina LPN Order signed. Please fax. Jahaira Harrison APRN.BLAYNE Please file orders. Needs faxed to [facility]. Pebbles Molina LPN documented in this encounter [facility] documented as of this encounter (statuses as of 05/18/2021) [facility] History of Past illness Narrative* Problem Noted Date Resolved Date Obesity, Class III, BMI >= 40 02/26/2018 Diabetes mellitus type 2, controlled, without co mplications 05/17/2015 08/23/2020 documented as of this encounter (statuses as of 05/31/2021) [facility] of Past illness Narrative* Problem Noted Date Resolved Date Obesity, Class III, BMI >= 40 02/26/2018 Diabetes mellitus type 2, controlled, without co mplications 05/17/2015 08/23/2020 documented as of this encounter (statuses as of 06/06/2021) [facility] History of Past illness Narrative* Problem Noted Date Resolved Date Obesity, Class III, BMI >= 40 02/26/2018 Diabetes mellitus type 2, controlled, without co mplications 05/17/2015 08/23/2020 documented as of this encounter (statuses as of 06/15/2021) [facility] of Past illness Narrative* Problem Noted Date Resolved Date Obesity, Class III, BMI >= 40 02/26/2018 Diabetes mellitus type 2, controlled, without co mplications 05/17/2015 08/23/2020 documented as of this encounter (statuses as of 06/20/2021) [facility] of Past illness Narrative* Problem Noted Date Resolved Date Obesity, Class III, BMI >= 40 02/26/2018 Diabetes mellitus type 2, controlled, without co mplications 05/17/2015 08/23/2020 documented as of this encounter (statuses as of 07/04/2021) [facility] of Past illness Narrative* Problem Noted Date Resolved Date Obesity, Class III, BMI >= 40 02/26/2018 Diabetes mellitus type 2, controlled, without co mplications 05/17/2015 08/23/2020 documented as of this encounter (statuses as of 07/18/2021) [facility] of [facility] illness Narrative* Problem Noted Date Resolved Date Obesity, Class III, BMI >= 40 02/26/2018 Peripheral neuropathy 01/21/2018 08/22/2021 Diabetes mellitus type 2, controlled, without co mplications 05/17/2015 08/23/2020 documented as of this encounter (statuses as of 10/20/2021) [facility] of Past illness Narrative* Problem Noted Date Resolved Date Obesity, Class III, BMI >= 40 02/26/2018 Peripheral neuropathy 01/21/2018 08/22/2021 Diabetes mellitus type 2, controlled, without co mplications 05/17/2015 08/23/2020 documented as of this encounter (statuses as of 11/15/2021) [facility] of Past illness Narrative* Problem Noted Date Resolved Date Obesity, Class III, BMI >= 40 02/26/2018 Peripheral neuropathy 01/21/2018 08/22/2021 Diabetes mellitus type 2, controlled, without co mplications 05/17/2015 08/23/2020 documented as of this encounter (statuses as of 12/20/2021) [facility] Narrative* Problem Noted Date Resolved Date Obesity, Class III, BMI >= 40 02/26/2018 Peripheral neuropathy 01/21/2018 08/22/2021 Diabetes mellitus type 2, controlled, without co mplications 05/17/2015 08/23/2020 documented as of this encounter (statuses as of 01/17/2022) [facility] Narrative* Problem Noted Date Resolved Date Obesity, Class III, BMI >= 40 02/26/2018 Peripheral neuropathy 01/21/2018 08/22/2021 Diabetes mellitus type 2, controlled, without co mplications 05/17/2015 08/23/2020 documented as of this encounter (statuses as of 02/21/2022) [facility] Narrative* Problem Noted Date Resolved Date Obesity, Class III, BMI >= 40 02/26/2018 Peripheral neuropathy 01/21/2018 08/22/2021 Diabetes mellitus type 2, controlled, without co mplications 05/17/2015 08/23/2020 documented as of this encounter (statuses as of 03/20/2022) [facility] Narrative* Problem Noted Date Resolved Date Obesity, Class III, BMI >= 40 02/26/2018 Peripheral neuropathy 01/21/2018 08/22/2021 Diabetes mellitus type 2, controlled, without co mplications 05/17/2015 08/23/2020 documented as of this encounter (statuses as of 03/22/2022) [facility]2019 History of Past illness Narrative* Problem Noted Date Resolved Date Obesity, Class III, BMI >= 40 02/26/2018 Peripheral neuropathy 01/21/2018 08/22/2021 Diabetes mellitus type 2, controlled, without co mplications 05/17/2015 08/23/2020 documented as of this encounter (statuses as of 03/25/2022) [facility] History of Past illness Narrative* Problem Noted Date Resolved Date Obesity, Class III, BMI >= 40 02/26/2018 Peripheral neuropathy 01/21/2018 08/22/2021 Diabetes mellitus type 2, controlled, without co mplications 05/17/2015 08/23/2020 documented as of this encounter (statuses as of 04/03/2022) [facility] History of Past illness Narrative* Problem Noted Date Resolved Date Obesity, Class III, BMI >= 40 02/26/2018 Peripheral neuropathy 01/21/2018 08/22/2021 Diabetes mellitus type 2, controlled, without co mplications 05/17/2015 08/23/2020 documented as of this encounter (statuses as of 04/18/2022) [facility] History of Past illness Narrative* Problem Noted Date Resolved Date Obesity, Class III, BMI >= 40 02/26/2018 Peripheral neuropathy 01/21/2018 08/22/2021 Diabetes mellitus type 2, controlled, without co mplications 05/17/2015 08/23/2020 documented as of this encounter (statuses as of 04/21/2022) [facility] History of Past illness Narrative* Problem Noted Date Resolved Date Obesity, Class III, BMI >= 40 02/26/2018 Peripheral neuropathy 01/21/2018 08/22/2021 Diabetes mellitus type 2, controlled, without co mplications 05/17/2015 08/23/2020 documented as of this encounter (statuses as of 05/15/2022) [facility] History of Past illness Narrative* Problem Noted Date Resolved Date Obesity, Class III, BMI >= 40 02/26/2018 Peripheral neuropathy 01/21/2018 08/22/2021 Diabetes mellitus type 2, controlled, without co mplications 05/17/2015 08/23/2020 documented as of this encounter (statuses as of 05/26/2022) [facility] History of Past illness Narrative* Problem Noted Date Resolved Date Obesity, Class III, BMI >= 40 02/26/2018 Peripheral neuropathy 01/21/2018 08/22/2021 Diabetes mellitus type 2, controlled, without co mplications 05/17/2015 08/23/2020 documented as of this encounter (statuses as of 06/12/2022) [facility] History of Past illness Narrative* Problem Noted Date Resolved Date Obesity, Class III, BMI >= 40 02/26/2018 Peripheral neuropathy 01/21/2018 08/22/2021 Diabetes mellitus type 2, controlled, without co mplications 05/17/2015 08/23/2020 documented as of this encounter (statuses as of 07/11/2022) [facility] History of Past illness Narrative* Problem Noted Date Resolved Date Obesity, Class III, BMI >= 40 02/26/2018 Peripheral neuropathy 01/21/2018 08/22/2021 Diabetes mellitus type 2, controlled, without co mplications 05/17/2015 08/23/2020 documented as of this encounter (statuses as of 08/07/2022) [facility] of Past illness Narrative* Problem [...] of this encounter (statuses as of 09/19/2022) [facility] History of Past illness Narrative* Problem [...] of this encounter (statuses as of 10/02/2022) [facility] History of Past illness Narrative* Problem [...] of this encounter (statuses as of 10/05/2022) [facility] History of Past illness Narrative* Problem [...] of this encounter (statuses as of 10/17/2022) [facility] History of Past illness Narrative* Problem [...] of this encounter (statuses as of 11/03/2022) [facility] of Past illness Narrative* Problem [...] of this encounter (statuses as of 11/17/2022) [facility] of Past illness Narrative* Problem [...] of this encounter (statuses as of 11/30/2022) [facility] of Past illness Narrative* Problem [...] of this encounter (statuses as of 12/13/2022) [facility] of Past illness Narrative* Problem [...] of this encounter (statuses as of 12/28/2022) [facility] of Past illness Narrative* Problem [...] of this encounter (statuses as of 01/25/2023) [facility] [place] [facility] Diagnosis Encounter for screening mammogram for malignant neoplasm of breast- Primary Other screening mammogram [facility] [place] [facility] Diagnosis Controlled type 2 diabetes mellitus without complication, without long-term current use of insulin (HCC)- Primary Vitamin B12 deficiency Other B-complex deficiencies Malabsorption syndrome Unspecified intestinal malabsorption Other vitamin B12 deficiency anemia Fatigue, unspecified type Other iron deficiency anemia Hypothyroidism, acquired Unspecified hypothyroidism Hypertriglyceridemia Pure hyperglyceridemia documented [facility] [place] [facility] Diagnosis Vitamin B12 deficiency- Primary Other B-complex deficiencies [facility] [place] [facility] Diagnosis Vitamin B12 deficiency- Primary Other B-complex deficiencies [facility] [place] [facility] Diagnosis Vitamin B12 deficiency- Primary Other B-complex deficiencies [facility] [place] [facility] Diagnosis Vitamin B12 deficiency- Primary Other B-complex deficiencies [facility] Vitamin B12 deficiency- Primary Other B-complex deficiencies [facility] Diagnosis Uncontrolled type 2 diabetes mellitus with hyperglycemia (HCC)- Primary Vitamin B12 deficiency Other B-complex deficiencies Controlled type 2 diabetes mellitus without complication, without long-term current use of insulin (HCC) Hypothyroidism, acquired Unspecified hypothyroidism Other vitamin B12 deficiency anemia Iron deficiency Iron deficiency anemia, unspecified Vitamin D deficiency Unspecified vitamin D deficiency [facility] [place] [facility] Diagnosis Vitamin B12 deficiency- Primary Other B-complex deficiencies [facility] Diagnosis Controlled type 2 diabetes [...] Hypertriglyceridemia Pure hyperglyceridemia [facility] Diagnosis Vitamin B12 deficiency- Primary Other B-complex deficiencies [facility] Diagnosis RUQ abdominal pain- Primary Abdominal pain, right upper quadrant Calculus of gallbladder without cholecystitis without obstruction Calculus of gallbladder without mention of cholecystitis or obstruction Fatty liver Other chronic nonalcoholic liver disease [facility] Diagnosis RUQ abdominal pain Abdominal [...] nonalcoholic liver disease [facility] Diagnosis Essential hypertension with goal [...] Other postprocedural status documented in this encounter [facility] [place] [facility]* Diagnosis Aftercare following surgery- Primary Encounter for other specified aftercare documented in this encounter [facility] note* Diagnosis Vitamin B12 deficiency- Primary Other B-complex deficiencies documented in this encounter [facility] note* Diagnosis Controlled type 2 diabetes mellitus [...] deficiency anemia, unspecified [facility] Diagnosis Other vitamin B12 deficiency anemia- Primary documented in this encounter [facility] [place] [facility]* Diagnosis Other vitamin B12 deficiency anemia- Primary documented in this encounter [facility] note* Diagnosis Vitamin B12 deficiency- Primary Other B-complex deficiencies documented in this encounter [facility] note* Diagnosis Vitamin B12 deficiency- Primary Other B-complex deficiencies documented [facility] this encounter [facility] [place] [facility]* Diagnosis Vitamin B12 deficiency- Primary Other B-complex deficiencies [facility] [place] [facility] Diagnosis Controlled type 2 diabetes mellitus [...] nonalcoholic liver disease documented in this encounter [facility] note* Diagnosis Vitamin B12 deficiency- Primary Other B-complex deficiencies documented in this encounter [facility] for referral (narrative)* Diagnostic Procedure Only (Routine) - Pending Review Specialty Diagnoses / Procedures Referred By Angela carey Referred To Contact [facility] Diagnoses Encounter for screening mammogram for malignant neoplasm of breast Procedures CAROLINE SCREENING W FLOR SCREENING DIGITAL BREAST TOMOSYNTHESIS BI SCREENING MAMMOGRAPHY BI 2-VIEW BREAST INC Jahaira Pineda, CORRESPONDENCE REPRESENTATIVE.SLOT SUPERVISOR [address] [place] [address] [facility] [address] [place] [address] Referral ID Status Reason Start Date Expiration Date Visits Requested Visits Authorized [id number] Pending Review Auto-Generat ed Referral 05/18/2021 06/17/2022 1 1 [facility] Diagnostic Procedure Only (Routine) - Pending Review Specialty Diagnoses / Procedures Referred By Angela carey Referred To Contact [facility] Diagnoses Encounter for screening mammogram for malignant neoplasm of breast Procedures CAROLINE SCREENING SCREENING MAMMOGRAPHY BI 2-VIEW BREAST INC CAD Jeff Pearce, [address] [place] [address] [facility] [address] [place] [address] Referral ID Status Reason Start Date Expiration Date Visits Requested Visits Authorized [id number] Pending Review Auto-Generat ed Referral 02/20/2022 03/22/2023 1 1 [facility] Summary Purpose Family History No Family History Records FoundNo Family History Records FoundNo Family History Records Found Advance Directives No Advanced Directives Records FoundDocuments on File Type Date Recorded Patient Materials Assistant Expl anation Advance Directive(s) 04/23/2019 11:29 AM Advance Directive(s) 02/26/2018 8:33 AM Advance Directive(s) 02/22/2018 7:13 PM Documents on File Type Date Recorded Patient Materials Assistant Expl anation Advance Directive(s) 04/23/2019 11:29 AM Advance Directive(s) 02/26/2018 8:33 AM Advance Directive(s) 02/22/2018 7:13 PM Documents on File Type Date Recorded Patient Materials Assistant Expl anation Advance Directive(s) 04/23/2019 11:29 AM Documents on File Type Date Recorded Patient Materials Assistant Expl anation Advance Directive(s) 04/23/2019 11:29 AM [...] liver Procedures CONSULT TO GENERAL SURGERY OFFICE/OUTPATIENT ON LICENSE OF [facility] MDM 60-74 MINUTES Jeff Pearce L, DO [address] [place] [address] Referral ID Status Reason Start Date Expiration Date Visits Requested Visits Authorized [id number] Authorized PCP Requested Referral 03/21/2022 03/21/2023 1 1 Additional Source Comments INFORMATION SOURCE (unrecogn ized section and content) DATE CREATED AUTHOR AUTHOR'S ORGANIZ ATION 04/10/2022 [facility] DATE CREATED AUTHOR AUTHOR'S ORGANIZ ATION 03/01/2023 [facility] Source Comments (unrecognize d section and content) In the event this informatio n is protected by the Federal Confidentiality of Alcohol and Drug Abuse Patient Records regulations: The Federal rules restrict any use of the information to criminally investigate or prosecute any alcohol or drug abuse patient.[facility] the event this information is protected by the Federal Confidentiality of Alcohol and Drug Abuse Patient Records regulations: The Federal rules restrict any use of the information to criminally investigate or prosecute any alcohol or drug abuse patient.[facility] the event this information is protected by the Federal Confidentiality of Alcohol and Drug Abuse Patient Records regulations: The Federal rules restrict any use of the information to criminally investigate or prosecute any alcohol or drug abuse patient.[facility] the event this information is protected by the Federal Confidentiality of Alcohol and Drug Abuse Patient Records regulations: The Federal rules restrict any use of the information to criminally investigate or prosecute any alcohol or drug abuse patient.[facility] the event this information is protected by the Federal Confidentiality of Alcohol and Drug Abuse Patient Records regulations: The Federal rules restrict any use of the information to criminally investigate or prosecute any alcohol or drug abuse patient.[facility] the event this information is protected by the Federal Confidentiality of Alcohol and Drug Abuse Patient Records regulations: The Federal rules restrict any use of the information to criminally investigate or prosecute any alcohol or drug abuse patient.[facility] the event this information is protected by the Federal Confidentiality of Alcohol and Drug Abuse Patient Records regulations: The Federal rules restrict any use of the information to criminally investigate or prosecute any alcohol or drug abuse patient.[facility] the event this information is protected by the Federal Confidentiality of Alcohol and Drug Abuse Patient Records regulations: The Federal rules restrict any use of the information to criminally investigate or prosecute any alcohol or drug abuse patient.[facility] the event this information is protected by the Federal Confidentiality of Alcohol and Drug Abuse Patient Records regulations: The Federal rules restrict any use of the information to criminally investigate or prosecute any alcohol or drug abuse patient.[facility] the event this information is protected by the Federal Confidentiality of Alcohol and Drug Abuse Patient Records regulations: The Federal rules restrict any use of the information to criminally investigate or prosecute any alcohol or drug abuse patient.[facility] the event this information is protected by the Federal Confidentiality of Alcohol and Drug Abuse Patient Records regulations: The Federal rules restrict any use of the information to criminally investigate or prosecute any alcohol or drug abuse patient.[facility] the event this information is protected by the Federal Confidentiality of Alcohol and Drug Abuse Patient Records regulations: The Federal rules restrict any use of the information to criminally investigate or prosecute any alcohol or drug abuse patient.[facility] the event this information is protected by the Federal Confidentiality of Alcohol and Drug Abuse Patient Records regulations: The Federal rules restrict any use of the information to criminally investigate or prosecute any alcohol or drug abuse patient.[facility] the event this information is protected by the Federal Confidentiality of Alcohol and Drug Abuse Patient Records regulations: The Federal rules restrict any use of the information to criminally investigate or prosecute any alcohol or drug abuse patient.[facility] the event this information is protected by the Federal Confidentiality of Alcohol and Drug Abuse Patient Records regulations: The Federal rules restrict any use of the information to criminally investigate or prosecute any alcohol or drug abuse patient.[facility] the event this information is protected by the Federal Confidentiality of Alcohol and Drug Abuse Patient Records regulations: The Federal rules restrict any use of the information to criminally investigate or prosecute any alcohol or drug abuse patient.[facility] the event this information is protected by the Federal Confidentiality of Alcohol and Drug Abuse Patient Records regulations: The Federal rules restrict any use of the information to criminally investigate or prosecute any alcohol or drug abuse patient.[facility] the event this information is protected by the Federal Confidentiality of Alcohol and Drug Abuse Patient Records regulations: The Federal rules restrict any use of the information to criminally investigate or prosecute any alcohol or drug abuse patient.[facility] the event this information is protected by the Federal Confidentiality of Alcohol and Drug Abuse Patient Records regulations: The Federal rules restrict any use of the information to criminally investigate or prosecute any alcohol or drug abuse patient.[facility] the event this information is protected by the Federal Confidentiality of Alcohol and Drug Abuse Patient Records regulations: The Federal rules restrict any use of the information to criminally investigate or prosecute any alcohol or drug abuse patient.[facility] the event this information is protected by the Federal Confidentiality of Alcohol and Drug Abuse Patient Records regulations: The Federal rules restrict any use of the information to criminally investigate or prosecute any alcohol or drug abuse patient.[facility] the event this information is protected by the Federal Confidentiality of Alcohol and Drug Abuse Patient Records regulations: The Federal rules restrict any use of the information to criminally investigate or prosecute any alcohol or drug abuse patient.[facility] the event this information is protected by the Federal Confidentiality of Alcohol and Drug Abuse Patient Records regulations: The Federal rules restrict any use of the information to criminally investigate or prosecute any alcohol or drug abuse patient.[facility] the event this information is protected by the Federal Confidentiality of Alcohol and Drug Abuse Patient Records regulations: The Federal rules restrict any use of the information to criminally investigate or prosecute any alcohol or drug abuse patient.[facility]In the event this information is protected by the Federal Confidentiality of Alcohol and Drug Abuse Patient Records regulations: The Federal rules restrict any use of the information to criminally investigate or prosecute any alcohol or drug abuse patient.[facility] the event this information is protected by the Federal Confidentiality of Alcohol and Drug Abuse Patient Records regulations: The Federal rules restrict any use of the information to criminally investigate or prosecute any alcohol or drug abuse patient.[facility] the event this information is protected by the Federal Confidentiality of Alcohol and Drug Abuse Patient Records regulations: The Federal rules restrict any use of the information to criminally investigate or prosecute any alcohol or drug abuse patient.[facility] the event this information is protected by the Federal Confidentiality of Alcohol and Drug Abuse Patient Records regulations: The Federal rules restrict any use of the information to criminally investigate or prosecute any alcohol or drug abuse patient.[facility]In the event this information is protected by the Federal Confidentiality of Alcohol and Drug Abuse Patient Records regulations: The Federal rules restrict any use of the information to criminally investigate or prosecute any alcohol or drug abuse patient.[facility]In the event this information is protected by the Federal Confidentiality of Alcohol and Drug Abuse Patient Records regulations: The Federal rules restrict any use of the information to criminally investigate or prosecute any alcohol or drug abuse patient.[facility]In the event this information is protected by the Federal Confidentiality of Alcohol and Drug Abuse Patient Records regulations: The Federal rules restrict any use of the information to criminally investigate or prosecute any alcohol or drug abuse patient.[facility]In the event this information is protected by the Federal Confidentiality of Alcohol and Drug Abuse Patient Records regulations: The Federal rules restrict any use of the information to criminally investigate or prosecute any alcohol or drug abuse patient.[facility]In the event this information is protected by the Federal Confidentiality of Alcohol and Drug Abuse Patient Records regulations: The Federal rules restrict any use of the information to criminally investigate or prosecute any alcohol or drug abuse patient.[facility] Reason for Visit (unrecogniz ed section [...] MDM 60-74 MINUTES Jeff Pearce L, DO [address] [place] [address] Referral ID Status Reason Start Date Expiration Date V isits Requested Visits Authorized [id number] Closed PCP Requested Referral 03/21/2022 03/21/2023 1 1 Reason Comments Consult Reason Comments Surgical Follow Up Lap magdalene post op Specialty Diagnoses / Procedures Referred By Contac t Referred To Contact General Surgery / GENERAL SURGERY Diagnoses post op lap magdalene, wanted sooner appt Procedures OFFICE/OUTPATIENT ESTABLISHED HIGH MDM 40-54 MIN EST DDI PATIENT Amado Campos PA-C [address] [place] [address] Amado Campos PA-C [address] [place] [address] Referral ID Status Reason Start Date Expiration Date Visits Re quested Visits Authorized [id number] Closed 04/10/2022 02/11/2023 1 1 Reason Comments Post Op Follow Up 04/10/22 [facility] Teams (unrecognized sec tion and content) Facsimile Operator Relationship Specialty Start Date End Date Jeff Pearce, DO [address] [place] [address] PCP - General Family Practice 09/28/15 Facsimile Operator Relationship Specialty Start Date End Date Jeff Pearce DO [address] [place] [address] PCP - General Family Practice 09/28/15 Facsimile Operator Relationship Specialty Start Date End Date Jeff Pearce DO [address] [place] [address] PCP - General Family Practice 09/28/15 Facsimile Operator Relationship Specialty Start Date End Date Jeff Pearce DO [address] [place] [address] PCP - General Family Practice 09/28/15 Facsimile Operator Relationship Specialty Start Date End Date Jeff Pearce DO [address] [place] [address] PCP - General Family Practice 09/28/15 Facsimile Operator Relationship Specialty Start Date End Date Jeff Pearce DO [address] [place] [address] PCP - General Family Practice 09/28/15 Facsimile Operator Relationship Specialty Start Date End Date Jeff Pearce DO [address] [facility] [place] [address] PCP - General Family Practice 09/28/15 Facsimile Operator Relationship Specialty Start Date End Date Jeff Pearce, DO [address] [facility] [place] [address] PCP - General Family Medicine 09/28/15 Facsimile Operator Relationship Specialty Start Date End Date Jeff Pearce, DO [address] [place] [address] PCP - General Family Medicine 09/28/15 Facsimile Operator Relationship Specialty Start Date End Date Jeff Pearce, DO [address] [place] [address] PCP - General Family Medicine 09/28/15 Facsimile Operator Relationship Specialty Start Date End Date Jeff Pearce, DO [address] [place] [address] PCP - General Family Medicine 09/28/15 Facsimile Operator Relationship Specialty Start Date End Date Jeff eParce, DO [address] [place] [address] PCP - General Family Medicine 09/28/15 Facsimile Operator Relationship Specialty Start Date End Date Jeff Pearce, DO [address] [place] [address] PCP - General Family Medicine 09/28/15 Facsimile Operator Relationship Specialty Start Date End Date Jeff Pearce, DO [address] [place] [address] PCP - General Family Medicine 09/28/15 Facsimile Operator Relationship Specialty Start Date End Date Jeff Pearce, DO [address] [facility] [place] [address] PCP - General Family Medicine 09/28/15 Facsimile Operator Relationship Specialty Start Date End Date Jeff Pearce, DO [address] [place] [address] PCP - General Family Medicine 09/28/15 Facsimile Operator Relationship Specialty Start Date End Date Jeff Pearce DO [address] [place] [address] PCP - General Family Medicine 09/28/15 Facsimile Operator Relationship Specialty Start Date End Date Jeff Pearce DO [address] [facility] [place] [address] PCP - General Family Medicine 09/28/15 Facsimile Operator Relationship Specialty Start Date End Date Jeff Pearce DO [address] [facility] [place] [address] PCP - General Family Medicine 09/28/15 Facsimile Operator Relationship Specialty Start Date End Date Jeff Pearce DO [address] [facility] [place] [address] PCP - General Family Medicine 09/28/15 Facsimile Operator Relationship Specialty Start Date End Date Jeff Pearce DO [address] [facility] [place] [address] PCP - General Family Medicine 09/28/15 Facsimile Operator Relationship Specialty Start Date End Date Jeff Pearce DO [address] [facility] [place] [address] PCP - General Family Medicine 09/28/15 Facsimile Operator Relationship Specialty Start Date End Date Jeff Pearce DO [address] [facility] [place] [address] PCP - General Family Medicine 09/28/15 Facsimile Operator Relationship Specialty Start Date End Date Jeff Pearce DO [address] [facility] [place] [address] PCP - General Family Medicine 09/28/15 Facsimile Operator Relationship Specialty Start Date End Date Jeff Pearce DO [address] [facility] [place] [address] PCP - General Family Medicine 09/28/15 Facsimile Operator Relationship Specialty Start Date End Date Jeff Pearce DO [address] [place] [address] PCP - General Family Medicine 09/28/15 FOR [...] BE BASED ON THE PRIMARY CLINICAL RECORDS. [employer] [facility]. provides no warranty or guarantee of the accuracy or completeness of information in this document.
[2023-03-05 23:13] VITALS: BP 156/65; PULSE 78; RESP 12; TEMP 36.6; O2SAT 98
[2023-03-05 23:31] VITALS: BMI 30.9
[2023-03-05 23:35] VITALS: BP 145/67; PULSE 103; RESP 16; TEMP 36.7; O2SAT 97
[2023-03-06] VITALS (19 sets, daily range): BP systolic 94–158; BP diastolic 54–133; PULSE 79–107; RESP 16–17; TEMP 36.1–37.1; O2SAT 92–100
--- NOTE | 2023-03-06 | IMM_PTH ---
PATHOLOGY RESULTS PATIENT: AMADO QUEEN LOC: [facility] U#:[id number] AGE/SX: 77/F ROOM: [facility] RE03/05/[address]: Dr. Santosh Ballard MD : 1945 BED: 1 DIS: 03/11/2023 SPEC #: [id number] RECD: 03/12/23 12:10 STATUS: SOUJyoti REQ #: [id number] DEANA: 03/06/23 00:[address]: Santosh Ballard DEPT: IMMUNOHISTOCHEMISTRY RECD BY: Noa Tolbert ENTERED: 03/12/23 12:12 SP TYPE: IMMUNO OTHR DR: MD Dr. King Herman, DO MD Dr. Rafia Reid MD Dr. Achintya Singh, MD Dr. Autumn L White, MD Dr. Mary Catherine Sementi, DO Dr. Venu Erazo, DO MD Felipe Flores MD Dr. Eric Jopperi, DO MD Dr. Maco Arrieta MD Dr. Jordan Garrison, DO MD Dr. Petros Diaz, DO Dr. Barbara Man, DO Dr. Leno Sun, DO MD Dr. Francois Chan MD Dr. Prakash Chand, MD Dr. Paul Nielsen, MD Dr. Paige Pierce, MD Dr. Ryan Burkholder, MD Jessica Franklin, INTELLIGENT SYSTEMS ENGINEER-BARRY Ch Tissues: Right colon Procedures: MSH2 (add) MLH-1 (add) MSH6 (add) Anti-PMS2 (add) HER2 RENETTA (add) P53 (add) MOC-31 (add) KI-67 (initial) PHYSICIAN [facility] INSTIT[facility] [address] [address] SPECIMEN INFORMATION: Tissue Source: B - Right colon Clinical Info: Retrocecal abscess, right lower quadrant abdominal pain Specimen Number: [id number] CPT code: 12193, 08691 x7 METHODOLOGY: Deparaffinized sections of prefer/formalin-fixed tissue or PAP/DQ stained slides are incubated with monoclonal/polyclonal antibodies/oligonucleotide probes. Localization is made via biotin free immunoperoxidase method. Appropriate controls are performed and reacted as expected. Results on target cell population are indicated in the following table: RESULTS: ANTIBODY / CLONE RESULT Block B5 Her-2neu (CB11) negative (0-1+) MOC-31 (4561) positive MLH-1 (M1) positive MSH2 (25D12) positive, focal MSH6 (44) positive PMS2 (KSK9609) positive Ki-67 (30-9) positive, high P53 (DO-7) negative (null pattern) These tests were developed and their performance characteristics determined by [facility]. They may not have been cleared or approved by the U.S. Food and Drug Administration. The FDA has determined that such clearance or approval is not necessary. The above immunohistochemical/dualISH markers are ordered and reviewed by the Pathologist. INTERPRETATION: B. Right colon, hemicolectomy: Invasive adenocarcinoma. Result of Microsatellite Instability Study: Negative (no loss of mismatch protein; no microsatellite instability detected). SJ:batool 03/13/2023 Case has been reviewed in consultation with Dr. Zazueta who concurs with the above diagnosis. IDC:AM
[2023-03-06] MEDS: 0.9% Normal Saline (1000mL) 1,000 ML 125 ML IV ×3 (00:23→21:51)
[2023-03-06] MEDS: Ondansetron 4 MG/2 ML Vial IV (03:20)
[2023-03-06] MEDS: 0.9% Saline Lock 10 ML Syringe IV ×2 (03:21→08:55)
--- NOTE | 2023-03-06 03:44 | NURSING ---
Patient complained of pain to abdomen rated as 8/10, no PRN medication on APR. Dr. Ballard with surgery paged and verbal order with readback received for morphine 4mg IV q6 PRN for pain rated 6-10. MAR updated per order.
[2023-03-06] MEDS: Morphine 4 MG/ML Syringe IV ×2 (03:54→08:54)
[2023-03-06 04:36] LABS: Absolute Neutrophil Count 11.8 X10^3/uL (2.0-7.7); Basophil# 0.05 X10^3/uL; Basophil% 0.4 % (0-1); Eosinophil# 0.11 X10^3/uL; Eosinophils% 0.8 % (0-5); Hematocrit 33.2 % (37-47); Lymphocyte % 6.4 % (19-41); Mean Corp Hgb Conc 30.1 g/dL (32-36); Mean Corpuscular Volume 73.1 fL (81-99); Mean Platelet Vol. 9.8 fl (6.2-12.0); Monocyte% 7.8 % (0-10); NRBC Flagged by Analyzer 0 % (0-5); Neutrophil # 11.77 X10^3/uL (2.7-7.7); Neutrophil % 83.9 % (47-70); Platelet Count 441 K/mm3 (150-450); RBC Distribution Width CV 13.5 % (11.6-14.6); Red Blood Count 4.54 M/mm3 (4.2-5.4)
[2023-03-06 04:51] LABS: Anion Gap 8 (5-15); BUN 11 mg/dL (7-18); BUN/Creat Ratio 19.6 RATIO (10-20); Calcium,Total 8.3 mg/dL (8.5-10.1); Chloride 105 mmol/L (98-107); Creatinine, Serum 0.56 mg/dL (0.55-1.02); EST Glomerular Filtration Rate 112 mL/min (>60); Est Glom Filt Rate - Afr Amer 135 mL/min (>60); Glucose 195 mg/dL (74-106); Magnesium 1.6 mg/dL (1.6-2.6); Phosphorus 2.9 mg/dL (2.5-4.9); Potassium 3.7 mmol/L (3.5-5.1); Sodium Level 135 mmol/L (136-145)
[2023-03-06] MEDS: Meropenem 1 GM in 0.9% Normal Saline (100mL MB+) 100 ML IV ×3 (05:26→21:48)
[2023-03-06 06:56] LABS: Bedside Glucose 195 mg/dL (74-106)
--- NOTE | 2023-03-06 08:04 | PN.SURG_ITS ---
Subjective Subjective Patient is a 77 y/o F I am following in conjunction with Dr. Ballard. She notes right lower quadrant which waxed and waned over night. Patient notes history of diabetes which is well controlled. Patient does all of her doctoring with the [facility]. She denies nausea, vomiting this morning. Objective Data Objective Data Vital Signs: Vital Signs Temp Pulse Resp BP Pulse Ox O2 Del Method 98 F 105 H 16 94/70 93 Room Air 03/06/23 06:45 03/06/23 06:45 03/06/23 06:45 03/06/23 06:45 03/06/23 06:45 03/06/23 06:45 Oxygen Delivery Method Room Air Weight: 174 lb 14.4 oz Body Mass Index (BMI) 30.9 Intake & Output: Intake and Output for Last 24 Hours 03/04/23 03/05/23 03/06/23 23:59 23:59 23:59 Intake Total 1120 / 1120 120 / 120 Balance 1120 / 1120 120 / 120 Lab / Micro Data 03/06/23 04:17 03/06/23 04:17 Labs: Laboratory Results - last 24 hr 03/05/23 19:30: Urine Color Yellow, Urine Clarity Sl. Cloudy, Urine pH 5.0, Ur Specific [place] 1.025, Urine Protein 30 H, Urine Glucose (UA) Normal, Urine Ketones 5 H, Urine Occult Blood 10 H, Urine Nitrite Negative, Urine Bilirubin 3 H, Urine Urobilinogen 1 H, Ur Leukocyte Esterase 100 H, Urine RBC 0 SEEN, Urine WBC 0-5 SEEN, Ur Squamous Epith Cells 0-5 SEEN, Urine Bacteria 1+, Urine Mucus 0 SEEN 03/05/23 19:45: WBC 14.9 H, RBC 4.79, Hgb 10.7 L, Hct 35.7 L, MCV 74.5 L, MCH 22.3 L, MCHC 30.0 L, RDW Std Deviation 36.4, RDW Coeff of Anand 13.5, Plt Count 474 H, MPV 9.6, Immature Gran % (Auto) 0.700, Neut % (Auto) 83.7 H, Lymph % (Auto) 7.9 L, [place] % (Auto) 6.6, Eos % (Auto) 0.8, Baso % (Auto) 0.3, Absolute Neuts (auto) 12.5 H, Absolute Lymphs (auto) 1.18, Nucleated RBC % 0, Sodium 137, Potassium 3.9, Chloride 102, Carbon Dioxide 27.0, Anion Gap 8, BUN 16, Creatinine 0.82, Estim Creat Clear Calc 58.78, Est GFR (MDRD) Af Amer 87, Est GFR (MDRD) Non-Af 72, BUN/Creatinine Ratio 19.5, Glucose 252 H, Hemoglobin A1c 6.6 H, Calcium 9.2, Total Bilirubin 0.30, AST 6 L, ALT 11 L, Alkaline Phosphatase 107, Total Protein 7.3, Albumin 2.8 L, Globulin 4.5 H, Albumin/Globulin Ratio 0.6 L, Lipase 13 03/06/23 04:17: WBC 14.0 H, RBC 4.54, Hgb 10.0 L, Hct 33.2 L, MCV 73.1 L, MCH 22.0 L, MCHC 30.1 L, RDW Std Deviation 36.0, RDW Coeff of Anand 13.5, Plt Count 441, MPV 9.8, Immature Gran % (Auto) 0.700, Neut % (Auto) 83.9 H, Lymph % (Auto) 6.4 L, [place] % (Auto) 7.8, Eos % (Auto) 0.8, Baso % (Auto) 0.4, Absolute Neuts (auto) 11.8 H, Absolute Lymphs (auto) 0.90, Nucleated RBC % 0, Sodium 135 L, P otassium 3.7, Chloride 105, Carbon Dioxide 22.0, Anion Gap 8, BUN 11, Creatinine 0.56, Estim Creat Clear Calc 60.60, Est GFR (MDRD) Af Amer 135, Est GFR (MDRD) Non-Af 112, BUN/Creatinine Ratio 19.6, Glucose 195 H, Calcium 8.3 L, Phosphorus 2.9, Magnesium 1.6 03/06/23 06:33: POC Glucose 195 H Radiography Diagnostic Testing: Radiology Impression Abdomen/Pelvis CT 03/05/23 20:03 IMPRESSION: Very limited by the absence of IV and especially oral contrast. Extensive inflammatory process of the right lower quadrant associated with irregular bowel wall thickening of the right colon, probable perforation, and retrocecal abscess. Findings could represent perforated diverticulitis or perforated neoplasm. Colonoscopy is indicated. Nonobstructing left renal stone. The Nonstandard Physician Communication protocol was initiated. Electronically Signed: Cristino Gonzalez MD at 20:58 EST , ADDENDUM: 03/05/23 2210 IMPRESSION: Very limited by the absence of IV and especially oral contrast. Extensive inflammatory process of the right lower quadrant associated with irregular bowel wall thickening of the right colon, probable perforation, and retrocecal abscess. Findings could represent perforated diverticulitis or perforated neoplasm. Colonoscopy is indicated. Nonobstructing left renal stone. The Nonstandard Physician Communication protocol was initiated. N.B. : Stas Arredondo DO, confirmed on 03/05/2023 22:04:07 (ET) that the healthcare facility has received the radiology report. Electronically Signed: Cristino Gonzalez MD at 20:58 EST , Abdomen/Pelvis CT 03/06/23 22:40 IMPRESSION: Wall thickening of the ascending colon with pericolonic collection consistent with contained perforation and/or early abscess. Etiology may be due to inflammatory process or colitis, but is suspicious for neoplasm with irregular wall thickening, multiple adjacent enlarged lymph nodes. Also the appendix is not visualized, perforated retrocecal appendicitis less likely but is not entirely excluded. Electronically Signed: Karen Hook MD at 2:15 EST , Physical Exam GI GI Narrative: Abdomen- soft, tenderness in the right lower quadrant with guarding and rebound tenderness Assessment & Plan Assessment/Plan (1) Retrocecal abscess: PLAN: I have evaluated this patient in conjunction with Dr. Nellie Ballard will plan to perform a laparoscopic possible conversion to open appendectomy possible cecectomy possible right hemicolectomy. Procedure details, risks and benefits have been explained to the patient. Patient denies any further questions. Hospitalist, Dr. Snell has been contacted to be onboard with medical management. We will continue to monitor this patient. Charges/Coding Visit Charges Inpatient E&M: 03500 Subs Hosp L1
--- NOTE | 2023-03-06 08:44 | PCM.CONS.GEN ---
Assessment & Plan Assessment/Plan (1) Retrocecal abscess: PLAN: Plan This 77-year-old woman being consulted for medical management for perioperative management of retrocecal abscess. 1. Right lower quadrant abdominal pain most likely due to retrocecal abscess: She might have developed retrocecal abscess probably after perforation of appendicitis/inflamed appendix or possible perforated diverticulitis with suspicion of possibility of neoplasm: Patient is being taken for surgery today. Currently n.p.o. on empiric IV antibiotics. Continue incentive spirometry. 2. Diabetes mellitus type 2: Accu-Chek ACH cover with Humalog sliding scale. Glucose is reasonably controlled, 195 and 147. A1c 6.6. Hold oral hypoglycemic agents as patient is n.p.o. and also going for surgery. 3. Hypertension: Blood pressure is controlled. At home, patient is on losartan 50 mg daily. IV hydralazine as needed during n.p.o. status. 4. Hypothyroidism: Hold thyroxine. 5. Other chronic comorbidities include GERD, migraine and rheumatoid arthritis and history of seizure: Patient not on any antiepileptic medications. On baby aspirin. IV PPI 40 mg once daily ordered. VTE prophylaxis bilateral SCDs. Postop VTE prophylaxis as per surgeons discretion depending on the risk of postop bleeding. Living will/advanced directive/end of life care: Patient does not have living will or advanced directive. She states her next of kin is her niece. After discussion of benefits/risks procedures involved with full code, DNR CC arrest and DNR CC, the patient opted for full code. Patient does want artificial life support including intubation, tube feed, ventilator and/chest compression, central venous catheter, vasopressor and DC shock if needed Total time spent in ztzk-dl-rsci encounter in discussion of advanced directive 17 minutes. Laboratory Results 03/05/23 19:30: Urine Color Yellow, Urine Clarity Sl. Cloudy, Urine pH 5.0, Ur Specific [place] 1.025, Urine Protein 30 H, Urine Glucose (UA) Normal, Urine Ketones 5 H, Urine Occult Blood 10 H, Urine Nitrite Negative, Urine Bilirubin 3 H, Urine Urobilinogen 1 H, Ur Leukocyte Esterase 100 H, Urine RBC 0 SEEN, Urine WBC 0-5 SEEN, Ur Squamous Epith Cells 0-5 SEEN, Urine Bacteria 1+, Urine Mucus 0 SEEN 03/05/23 19:45: WBC 14.9 H, RBC 4.79, Hgb 10.7 L, Hct 35.7 L, MCV 74.5 L, MCH 22.3 L, MCHC 30.0 L, RDW Std Deviation 36.4, RDW Coeff of Anand 13.5, Plt Count 474 H, MPV 9.6, Immature Gran % (Auto) 0.700, Neut % (Auto) 83.7 H, Lymph % (Auto) 7.9 L, [place] % (Auto) 6.6, Eos % (Auto) 0.8, Baso % (Auto) 0.3, Absolute Neuts (auto) 12.5 H, Absolute Lymphs (auto) 1.18, Nucleated RBC % 0, Sodium 137, Potassium 3.9, Chloride 102, Carbon Dioxide 27.0, Anion Gap 8, BUN 16, Creatinine 0.82, Estim Creat Clear Calc 58.78, Est GFR (MDRD) Af Amer 87, Est GFR (MDRD) Non-Af 72, BUN/Creatinine Ratio 19.5, Glucose 252 H, Hemoglobin A1c 6.6 H, Calcium 9.2, Total Bilirubin 0.30, AST 6 L, ALT 11 L, Alkaline Phosphatase 107, Total Protein 7.3, Albumin 2.8 L, Globulin 4.5 H, Albumin/Globulin Ratio 0.6 L, Lipase 13 03/06/23 04:17: WBC 14.0 H, RBC 4.54, Hgb 10.0 L, Hct 33.2 L, MCV 73.1 L, MCH 22.0 L, MCHC 30.1 L, RDW Std Deviation 36.0, RDW Coeff of Anand 13.5, Plt Count 441, MPV 9.8, Immature Gran % (Auto) 0.700, Neut % (Auto) 83.9 H, Lymph % (Auto) 6.4 L, [place] % (Auto) 7.8, Eos % (Auto) 0.8, Baso % (Auto) 0.4, Absolute Neuts (auto) 11.8 H, Absolute Lymphs (auto) 0.90, Nucleated RBC % 0, Sodium 135 L, Potassium 3.7, Chloride 105, Carbon Dioxide 22.0, Anion Gap 8, BUN 11, Creatinine 0.56, Estim Creat Clear Calc 60.60, Est GFR (MDRD) Af Amer 135, Est GFR (MDRD) Non-Af 112, BUN/Creatinine Ratio 19.6, Glucose 195 H, Calcium 8.3 L, Phosphorus 2.9, Magnesium 1.6, Carcinoembryonic Ag Pending 03/06/23 06:33: POC Glucose 195 H 03/06/23 11:39: POC Glucose 147 H HPI Consult Data Date of Consult: 03/06/23 HPI Narrative Reason for Consultation: Perioperative management for chronic medical conditions including diabetes HPI Narrative: AMADO QUEEN, is a 77 F who is being admitted under surgical service for right lower quadrant abdominal pain. Patient is stated she had gallbladder surgery, lap magdalene by Dr. Holloway last March 2022 and since then she is having on and off right-sided abdominal pain for which her PCP states probably postop pain from the gallbladder surgery. When the pain got progressively worse over the past 3 days with loss of appetite with more frequent and prolonged she came to ER. Denies any fever or chills. CT abdomen and pelvis was done in ED without contrast which shows 4.4 cm retrocecal mass/abscess concerning for possible neoplastic perforation versus perforated diverticulitis and hypothyroidism. She denies chronic heart conditions including VA/unstable angina or CHF. Denies chronic lung disease. FOR[facility]LY [facility], [facility] Medical History Anemia Chronic pain Diabetes mellitus GERD (gastroesophageal reflux disease) Hypertension Hypothyroidism Irregular heart beat Migraines Non-smoker Rheumatoid arthritis Seizures Vision loss of left eye Vision loss of right eye Home Medications ondansetron 4 mg disintegrating tablet 4 mg PO Q8H PRN PRN Nausea #20 tabs 12/21/20 [Rx Last Taken Unknown] aspirin 81 mg capsule 81 mg PO DAILY HEART 03/05/23 [History Last Taken Unknown] famotidine 1 tab PO DAILY INDIGESTION 03/05/23 [History Last Taken Unknown] fexofenadine 1 tab PO DAILY ALLERGIES 03/05/23 [History Last Taken Unknown] glimepiride 2 mg tablet 2 mg PO DAILY 03/05/23 [History Last Taken Unknown] levothyroxine 150 mcg tablet 150 mcg PO QHS 03/05/23 [History Last Taken Unknown] losartan 50 mg tablet 50 mg PO DAILY 03/05/23 [History Last Taken Unknown] metformin 500 mg tablet 1,000 mg PO BID 03/05/23 [History Last Taken Unknown] Allergy/AdvReac Type Severity Reaction Status Date / Time diphenhydramine Allergy PT UNSURE Verified 12/21/20 18:22 [From Benadryl] OF REACTION Penicillins Allergy PT UNSURE Verified 12/21/20 18:22 OF REACTION Surgical History Hx of cholecystectomy Social History Smoking Status: Never smoker ROS ROS Narrative Constitutional: Reports fatigue and weakness. No fever. HEENT: Reports systems reviewed and no addt'l complaints, except as documented Respiratory/Chest: No acute shortness of breath or respiratory distress or wheezing. CVS: Denies chest pain pressure or tightness. Gastrointestinal: Right-sided abdominal pain as described in HPI. Denies vomiting/hematemesis. Genitourinary: Denies burning urination or new urinary tract symptoms Musculoskeletal: Denies acute joint pain or limited range of motion. No acute injury Neurologic: Denies seizure-like symptoms. skin: No ulcer. No rash Endocrinology: Reports systems reviewed and no addt'l complaints, except as documented Hematologic/Lymphatic: Reports systems reviewed and no addt'l complaints, except as documented Rest 14 ROS are negative except as mentioned in HPI Physical Exam Narrative General: Alert, Oriented x3, Cooperative HEENT: Atraumatic, PERRLA, EOMI, Normocephalic Oral: Oral mucosa dry. Currently NPO. No Gingival or Mucosal Lesions/ Ulcerations Neck: Supple, No JVD, Negative Carotid Bruits Lungs: Air entry diminished in bilateral lung bases. No crepitation/rhonchi Cardiovascular: Regular rate, Regular Rhythm, Normal S1, Normal S2, No murmurs Abdomen: Soft, tenderness present over right lower quadrant. No guarding/rigidity. Bowel sounds sluggish. No palpable mass. : No renal angle tenderness. No suprapubic tenderness. Extremities: No edema, Capillary Refill Less than 3 Seconds Skin: No rashes, No breakdown Musculoskeletal: No Tenderness to Palpation of Joints or Extremities Neurological: Cranial nerves II-XII grossly intact, DTR 2+/4. No acute focal neurological deficit. Psych/Mental Status: Normal Affect, Appropriate. Lab / Micro Data 03/06/23 04:17 03/06/23 04:17 Labs: Laboratory Results - last 24 hr 03/05/23 19:30: Urine Color Yellow, Urine Clarity Sl. Cloudy, Urine pH 5.0, Ur Specific [place] 1.025, Urine Protein 30 H, Urine Glucose (UA) Normal, Urine Ketones 5 H, Urine Occult Blood 10 H, Urine Nitrite Negative, Urine Bilirubin 3 H, Urine Urobilinogen 1 H, Ur Leukocyte Esterase 100 H, Urine RBC 0 SEEN, Urine WBC 0-5 SEEN, Ur Squamous Epith Cells 0-5 SEEN, Urine Bacteria 1+, Urine Mucus 0 SEEN 03/05/23 19:45: WBC 14.9 H, RBC 4.79, Hgb 10.7 L, Hct 35.7 L, MCV 74.5 L, MCH 22.3 L, MCHC 30.0 L, RDW Std Deviation 36.4, RDW Coeff of Anand 13.5, Plt Count 474 H, MPV 9.6, Immature Gran % (Auto) 0.700, Neut % (Auto) 83.7 H, Lymph % (Auto) 7.9 L, [place] % (Auto) 6.6, Eos % (Auto) 0.8, Baso % (Auto) 0.3, Absolute Neuts (auto) 12.5 H, Absolute Lymphs (auto) 1.18, Nucleated RBC % 0, Sodium 137, Potassium 3.9, Chloride 102, Carbon Dioxide 27.0, Anion Gap 8, BUN 16, Creatinine 0.82, Estim Creat Clear Calc 58.78, Est GFR (MDRD) Af Amer 87, Est GFR (MDRD) Non-Af 72, BUN/Creatinine Ratio 19.5, Glucose 252 H, Hemoglobin A1c 6.6 H, Calcium 9.2, Total Bilirubin 0.30, AST 6 L, ALT 11 L, Alkaline Phosphatase 107, Total Protein 7.3, Albumin 2.8 L, Globulin 4.5 H, Albumin/Globulin Ratio 0.6 L, Lipase 13 03/06/23 04:17: WBC 14.0 H, RBC 4.54, Hgb 10.0 L, Hct 33.2 L, MCV 73.1 L, MCH 22.0 L, MCHC 30.1 L, RDW Std Deviation 36.0, RDW Coeff of Anand 13.5, Plt Count 441, MPV 9.8, Immature Gran % (Auto) 0.700, Neut % (Auto) 83.9 H, Lymph % (Auto) 6.4 L, [place] % (Auto) 7.8, Eos % (Auto) 0.8, Baso % (Auto) 0.4, Absolute Neuts (auto) 11.8 H, Absolute Lymphs (auto) 0.90, Nucleated RBC % 0, Sodium 135 L, Potassium 3.7, Chloride 105, Carbon Dioxide 22.0, Anion Gap 8, BUN 11, Creatinine 0.56, Estim Creat Clear Calc 60.60, Est GFR (MDRD) Af Amer 135, Est GFR (MDRD) Non-Af 112, BUN/Creatinine Ratio 19.6, Glucose 195 H, Calcium 8.3 L, Phosphorus 2.9, Magnesium 1.6 03/06/23 06:33: POC Glucose 195 H Imagaing Radiology Impression Abdomen/Pelvis CT 03/05/23 20:03 IMPRESSION: Very limited by the absence of IV and especially oral contrast. Extensive inflammatory process of the right lower quadrant associated with irregular bowel wall thickening of the right colon, probable perforation, and retrocecal abscess. Findings could represent perforated diverticulitis or perforated neoplasm. Colonoscopy is indicated. Nonobstructing left renal stone. The Nonstandard Physician Communication protocol was initiated. Electronically Signed: Cristino Gonzalez MD at 20:58 EST , ADDENDUM: 03/05/23 2210 IMPRESSION: Very limited by the absence of IV and especially oral contrast. Extensive inflammatory process of the right lower quadrant associated with irregular bowel wall thickening of the right colon, probable perforation, and retrocecal abscess. Findings could represent perforated diverticulitis or perforated neoplasm. Colonoscopy is indicated. Nonobstructing left renal stone. The Nonstandard Physician Communication protocol was initiated. N.B. : Stas Arredondo DO, confirmed on 03/05/2023 22:04:07 (ET) that the healthcare facility has received the radiology report. Electronically Signed: Cristino Gonzalez MD at 20:58 EST , Abdomen/Pelvis CT 03/06/23 22:40 IMPRESSION: Wall thickening of the ascending colon with pericolonic collection consistent with contained perforation and/or early abscess. Etiology may be due to inflammatory process or colitis, but is suspicious for neoplasm with irregular wall thickening, multiple adjacent enlarged lymph nodes. Also the appendix is not visualized, perforated retrocecal appendicitis less likely but is not entirely excluded. Electronically Signed: Karen Hook MD at 2:15 EST , Charges/Coding Visit Charges Office Visits / Consults: 21400 IP Consult L4 Procedures Hospitalists Procedures: 80662 Advncd Care Plan 30 Min
[2023-03-06 12:00] LABS: Bedside Glucose 147 mg/dL (74-106)
--- NOTE | 2023-03-06 12:15 | CASEMGMT ---
RN FIDELIA Face to Face with patient for initial transition planning/care coordination assessment. RN CM introduced self and role at [facility]. Patient lying in bed, alert and oriented, friend at bedside . Patient willing to participate in assessment and is able to answer all questions appropriately. Care providers, pharmacy, and demographics verified. Patient wishes to discharge home, will monitor for HHC pending ATBs and wound care. Patient states she has no further needs or concerns at this time. CM to follow for discharge planning needs that may arise. PCP: [place] Specialists: none Preferred Pharmacy: [facility] Insurance: [employer] [facility] Prescription Benefit: yes Living Will/HPOA: yes LNOK: niece Living Arrangements: Patient lives alone in a condo with 1 step to enter. Patient states she is independent at home Transportation: self, friend, niece DME/HHC: Patient has shower chair, raised toilet, grab bars. No previous HHC or SNF. Will monitor for possible HHC. Friend at bedside is willing to learn wound care if needed. W Disposition Plan: Anticipate HHC pending course of treatment and progress with therapy. Samantha FUNES, RN, CM
--- NOTE | 2023-03-06 15:30 | FLU_PTH ---
PATHOLOGY RESULTS PATIENT: AMADO QUEEN LOC: [facility] U#:[id number] AGE/SX: 77/F ROOM: [facility] RE03/05/[address]: Dr. Santosh Ballard MD : 1945 BED: 1 DIS: 03/11/2023 SPEC #: [id number] RECD: 03/07/23 08:26 STATUS: SOUJyoti REQ #: [id number] DEANA: 03/06/23 15:[address]: Santosh Ballard DEPT: CYTOLOGY RECD BY: Jaja Mosley ENTERED: 03/07/23 08:27 SP TYPE: Fluid OTHR DR: MD Dr. King Herman, DO MD Dr. Rafia Reid MD Dr. Achintya Singh, MD Dr. Autumn L White, MD Dr. Mary Catherine Sementi, DO Dr. Venu Erazo, DO MD Felipe Flores MD Dr. Eric Jopperi, DO MD Dr. Maco Arrieta MD Dr. Jordan Garrison, DO MD Dr. Petros Diaz, DO Dr. Barbara Man, DO Dr. Leno Sun, DO MD Dr. Francois Chan MD Dr. Prakash Chand, MD Dr. Paul Nielsen, MD Dr. Paige Pierce, MD Dr. Ryan Burkholder, MD Jessica Franklin, [place] Ch Tissues: Peritoneal fluid Procedures: Special Stain Group II Surgery Specimen Level IV Cytospin Fluid HEADER OPERATION: Laparoscopy, open, right hemicolectomy PRE-OP DIAGNOSIS: Retrocecal abscess, right lower quadrant abdominal pain TISSUE SUBMITTED: Peritoneal fluid for cytology DIAGNOSIS CYTOLOGY Peritoneal fluid for cytology (cytospin and cell block): Negative for malignant cells. See comment. BACILIO:batool 03/08/2023 COMMENT Clinical correlation and appropriate follow up are necessary. Please also make reference to additional specimen ([id number]), right colon, hemicolectomy. CYTOLOGY STUDY Slides are reviewed. CYTOLOGY GROSS Received is 15 ml of dark red cloudy fluid labeled with the patient's name and and designated per the requisition as peritoneal fluid. Submitted for cytology preparation including cell block. / batool 03/07/2023 TC:5 CPT: 97093, 54551
--- NOTE | 2023-03-06 15:30 | COL._PTH ---
PATHOLOGY RESULTS PATIENT: AMADO QUEEN LOC: [facility] U#:[id number] AGE/SX: 77/F ROOM: [facility] RE03/05/[address]: Dr. Santosh Ballard MD : 1945 BED: 1 DIS: 03/11/2023 SPEC #: [id number] RECD: 03/06/23 19:37 STATUS: WILLIAMS REQ #: [id number] DEANA: 03/06/23 15:[address]: Santosh Ballard DEPT: SURGICAL PATHOLOGY RECD BY: Jaja Mosley ENTERED: 03/07/23 09:03 SP TYPE: COLON OTHR DR: MD Dr. King Herman, DO MD Dr. Rafia Reid MD Dr. Achintya Singh, MD Dr. Autumn L White, MD Dr. Mary Catherine Sementi, DO Dr. Venu Erazo, DO MD Felipe Flores MD Dr. Eric Jopperi, DO MD Dr. Maco Arrieta MD Dr. Jordan Garrison, DO MD Dr. Petros Diaz, DO Dr. Barbara Man, DO Dr. Leno Sun, DO MD Dr. Francois Chan MD Dr. Prakash Chand, MD Dr. Paul Nielsen, MD Dr. Paige Pierce, MD Dr. Ryan Burkholder, MD Jessica Franklin, [place] Ch Tissues: Abdominal wall, NOS Colon, NOS Procedures: Surgery Specimen Level IV Surgery Specimen Level HEADER OPERATION: Laparoscopy, open, right hemicolectomy PRE-OP DIAGNOSIS: Retrocecal abscess, right lower quadrant abdominal pain TISSUE SUBMITTED: A - Abscess wall, B - Right colon MICROSCOPIC DIAGNOSIS A. Abscess wall, excision: A piece of adipose tissue with acute and chronic inflammation. B. Right colon, hemicolectomy: Invasive adenocarcinoma. See cancer summary in the comment section. SJ:batool 03/12/2023 COMMENT B. COLON CANCER SUMMARY: Procedure - right hemicolectomy Tumor site - ascending colon and also focally involves the ileocecal valve. Tumor size - 8.0 x 5.0 x 1.0 cm Macroscopic tumor perforation - present, the tumor is ruptured in the pericolonic adipose tissue. Histologic type - invasive adenocarcinoma Histologic grade - grade 2, moderately differentiated Tumor extension - tumor invades through the muscularis propria into pericolonic tissue. The tumor shows areas of rupture with abscess formation in the pericolonic adipose tissue. No tumor is noted in the area of rupture at the resection margin. No obvious perforation through the visceral peritoneum is noted. Margins - all margins are uninvolved by invasive carcinoma, high-grade dysplasia, adenocarcinoma and adenoma. The tumor is 5.0 cm away from the proximal margin and 14.0 cm away from the distal resection margin. Treatment effect - no known presurgical therapy. Lymphvascular invasion - not identified. Perineural invasion - not identified. Type of polyp in which invasive carcinoma arose - none identified. Tumor deposits - not identified. Regional lymph nodes - Number of lymph nodes involved - 0 Number of lymph nodes examined - 21 Additional pathologic findings - - focal chronic active colitis consistent with inflammatory bowel disease (ulcerative colitis). See Microscopic Description. - marked acute and chronic inflammation, abscess formation and reactive changes adjacent to the area of rupture in the pericolonic adipose tissue. - serosal acute inflammation and focal diverticular changes, appendix. Ancillary studies: See microsatellite instability study by IHC ([id number]) for complete details. PATHOLOGIC STAGE: pT3 pN0 pMx The above summary is in compliance with [employer] [place] (CAP) Cancer Protocols Checklist and [place] [employer] Committee on Cancer (AJCC), Staging Manual, 8th Ed. Case has been reviewed in consultation with Dr. Zazueta who concurs with the above diagnosis. IDC:AM MICROSCOPIC DESCRIPTION Slides are reviewed. Ulcerated area in the ascending colon and shows moderate acute and chronic inflammatory cell infiltrates in the mucosa and submucosa, glandular distortion, cryptitis and crypt abscesses consistent with chronic active colitis. Granulomas are not seen. No evidence of dysplasia in the area of inflammation. Focal area of chronic active colitis is also noted at the distal mucosal resection margin. GROSS DESCRIPTION A - Received in fixative is one container labeled with the patient's name and designated abscess wall. The specimen consists of a piece of adipose tissue measuring 10.0 x 6.0 x 2.0 cm. Sections reveal indurated cut surfaces. No obvious mass lesion is identified. Dinkey Press Operator sections are submitted in three cassettes. / SJ:rg 03/08/2023 B - Received in fixative is one container labeled with the patient's name and designated right colon. The specimen consists of a right hemicolectomy specimen with attached pericolonic adipose tissue consisting of cecum with ascending colon with attached pericolonic adipose tissue, small segment of small intestine and attached mesentery and appendix. The cecum with ascending colon measures 23.0 cm in length. Segment of small intestine measures 5.0 cm in length and appendix measures 4.5 cm in length and 1.5 cm in diameter. Both resection margins are stapled. The lumen contains hemorrhagic material. Sections reveal an ulcerated hemorrhagic mass adjacent to the ileocecal valve and descending colon measuring 8.0 x 5.0 x 1.0 cm. The tumor is 14.0 cm away from the distal resection margin. More dictation will follow after fixation. / SJ:rg 03/07/2023 Sections of the appendix reveal thickened wall measuring up to 0.5 cm in thickness. The lumen contains small amount of fecal material. No mass lesion is identified. Sections of the tumor reveal it to be ruptured and shows area of abscess formation in the pericolonic adipose tissue. Areas of hemorrhage are also noted adjacent to the area of rupture and abscess formation. Mucosa distal to the tumor also shows focal area of ulceration and congestion. This area measures 5.0 cm in greatest length. Sections of pericolonic adipose tissue reveal multiple lymph node. The largest lymph node measures 1.5 cm in greatest dimension. Dinkey Press Operator sections are submitted in 28 cassettes as follows: 1 - resection margins, 24??appendix, 5-9 - tumor including area of rupture, 10 & 11 - inked resection margin in the area of rupture, 12?- small intestine and ileocecal valve, 13 & 14 - congested and ulcerated area in the ascending colon, 15 to 28 lymph nodes (15 - one bisected possible lymph node, 16 - one serially sectioned lymph node, 17?- one bisected lymph node, 18 - one bisected lymph node, 19 - one serially sectioned lymph node, 20??multiple lymph nodes, 21-27 - one bisected lymph node, 28 - possible lymph nodes. / SJ:batool 03/08/2023 TC:0 CPT: 19722, 83452
[2023-03-06] MEDS: Bupivacaine Mpf 0.5% 30 ML VIAL (16:35)
[2023-03-06] MEDS: BUPIVACAINE LIPOSOME/PF 20 ML VIAL OPERA.SITE (18:42)
[2023-03-06] MEDS: Bupivacaine 0.25% 30 ML Vial (18:43)
[2023-03-06] MEDS: 0.9% Normal Saline (Pres. free 10 ML Vial (18:46)
--- NOTE | 2023-03-06 19:17 | OP.PCM_ITS ---
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 Diagnostic laparoscopy converted to 2. Open right hemicolectomy with primary, stapled [id number] ileocolic anastomosis 3. Transversus abdominis plane block Description of Surgical Findings:: ? Retrocecal abscess cavity with foul-smelling purulent fluid ? Thickened colon wall with desmoplastic reaction to the adjacent mesocolon ? Segment 6 of the liver only easily accessible segment of the right liver due to adhesions presumably from patient's prior cholecystectomy. When examined and palpated there were no signs of hepatic metastases ? Left lower liver is examined there are no signs of hepatic metastases Surgeon: Santosh Ballard transit mixer operator: Tawn Carr transit mixer operator: Renuka Bean Type of Anesthesia: General/Supplemental Anesthesiologist: Stas Hernandez Estimated Blood Loss (mL): 150 Description of Procedure: Operation performed for curative intent: Yes Tumor location: Ascending colon Extent of colon and vascular resection: Right hemicolectomy with transverse colon divided distal to the right branch of the middle colic artery After appropriate identification in the preoperative holding area the patient was brought to the operating room where she was positioned supine in the operating room table. There she underwent induction of general anesthesia. She was already receiving continuous IV antibiotics given the presence of her retrocecal abscess. A Lopez catheter was then placed for accurate ins and outs monitoring. A formal timeout was conducted to confirm patient and procedure and the procedure was begun with a Kohler entry in the supraumbilical position and placement of a 12 mm balloon trocar. Pneumoperitoneum was established at 15 mmHg and an inspection of the peritoneum was made. There was no evidence of inadvertent injury to the viscera below from our entry. With this initial investigation, I was able to visualize several thin adhesions between the epiploica of the right colon and the anterior abdominal wall. I also identified the tip of a dilated appendix. 2 additional 5 mm ports were placed in the suprapubic and left lower quadrant positions under laparoscopic visualization. The appendix was further examined and found to be dilated but there is no evidence of perforation. However, within the colon there was severe thickening of the wall and contracture of the mesocolon into an inflammatory process of the cecum. Inspection of the liver was limited due to a number of adhesions in the region of patient's prior cholecystectomy, but investigation did not reveal any mass lesions that could be concerning for metastatic deposits. Given the diagnosis I sought to simply mobilize the colon is much as possible?particularly in the hard to visualize area's while laparoscopic. This meant I opened the white line of Toldt laterally as well as incised the peritoneal reflection that anchored the patient's mesoappendix and terminal ileum. I then decided to plan for transition to open open laparotomy, however, before proceeding with this transition I performed a bilateral TAP block using a solution of Exparel, bupivacaine, and saline to instill 80 mL and evenly measured aliquots under laparoscopic direction. A laparotomy incision was made from above the umbilicus to the level of the patient's suprapubic 5 mm port inferiorly. This was deepened through the abdominal wall with the use of electrocautery. A large wound protector was placed. I then proceeded to mobilize the colon in a lateral to medial fashion by opening the peritoneal reflection along the right paracolic gutter using blunt digital dissection and occasional electrocautery. As I entered behind the cecum I obtained a sample of the peritoneal fluid for cytology evaluation to determine if there were any spilled tumor cells. More superiorly, I also elevated the omentum and began opening the plane over the patient's transverse colon approaching the hepatic flexure. In doing so we encountered the second portion of the duodenum deeply and carefully protected this from our further dissection. As I sought to connect these 2 dissections I found dense connective tissue which I ultimately came to realize represented the wall of the patient's abscess cavity and this had initially missed let us to enter Gerota's fascia. As we regained the proper plane we entered the abscess cavity and aspirated some of this purulent fluid for microanalysis. Additionally, a section of the abscess cavity was submitted for permanent section after being harvested using our LigaSure device. Ultimately we are able to connect the 2 points of our dissection and then we selected distal and proximal transection points in the transverse colon (just distal to the takeoff of the right middle colic vessel) and the terminal ileum, respectively. LigaSure was used to divide the mesentery to each of these locations right up to the bowel wall. The intervening mesentery was largely taken with application of LigaSure device. Once we had divided this down to a main right colic vessel the vessel was clamped and I secured the vessel with a stick tie using a 3-0 silk suture as well as a Weck clip. This resulted in excellent hemostasis. The bowel was then serially transected with application of a 75 mm AUGIE stapler. The specimen was passed off the field for pathologic processing. I then aligned the remaining ileum and transverse colon-taking care to remove some intervening pericolonic fat from the tinea. A back row of 3-0 silk sutures was placed to maintain orientation. In an interrupted fashion A stay suture was placed along the staple line of both portions of bowel and the corners of the staple lines were removed. A [id number], functional end stapled ileocolonic anastomosis was then produced with a third firing of our AUGIE stapler. The common channel was reoriented perpendicularly to our original staple lines and was closed with a TX 60 mm stapler. The staple line was hemostatic. The mesenteric defect between the colon and small bowel was closed with a running 3-0 silk suture and was continued to flap a tongue of omentum over the anastomosis. Satisfied with our anastomosis the bowel was returned to the peritoneum. I then irrigated the abdomen with water (a total of 2.5 L was used) and suctioned the effluent free. There were no signs of bleeding with this intervention. I thus removed the wound protector and began closure of the abdomen. First, however, a 15 [place] round Alex drain was placed along the right paracolic gutter and a stab incision was made through our 5 mm trocar in the right suprapubic position. The drain tubing was secured at the skin using a 3-0 nylon suture. The laparotomy wound was closed with #1 PDS in a bidirectional fashion from the corners and tying in the middle. All personnel changed gloves and the subcutaneous layer was irrigated above the fascia and the skin was closed with skin sb. Dressings were applied and the patient was awoken from general anesthetic without complication. She was taken to PACU for ongoing recovery. Complications None Admit VTE Documentation VTE Mechan Device Prophylaxis: SCD's Procedures Digestive 40xxx-49xxx: 18259 Removal of colon
[2023-03-06 19:42] LABS: Cytology, Body Fluid / CSF SEE PATHOLOGY REPORT
[2023-03-06 20:03] LABS: Bedside Glucose 209 mg/dL (74-106)
[2023-03-06] MEDS: Insulin Lispro 100 UNIT/ML INSULN.PEN SC (21:49)
--- NOTE | 2023-03-06 22:40 | CT_ITS ---
EXAM: CT Abdomen And Pelvis W/ Contrast Injection HISTORY: Abdominal Abscess TECHNIQUE: Routine protocol CT abdomen pelvis. IV Contrast: Oral and amp; IV Gastrografin and amp; 100mL Isovue-370 . Oral Contrast: with. Sagittal and coronal images were reconstructed. RADIATION DOSAGE (If Supplied By Facility): CTDIvol = ( 18.46 ) mGy, DLP = ( 2135.93 ) mGycm Individualized dose optimization techniques were used for this CT. COMPARISON: CT abdomen and pelvis 03/05/2023.. LIMITATIONS: None. FINDINGS: LOWER CHEST: Reticular opacities in the lung bases greater on the right likely scarring or subsegmental atelectasis. LIVER: Fatty infiltration. GALLBLADDER/BILE DUCTS: Gallbladder not identified presumed surgically absent. PANCREAS: Unremarkable. SPLEEN: Unremarkable. ADRENAL GLANDS: Unremarkable. KIDNEYS / URETERS: A few small calculi in the left kidney. No hydronephrosis. Parapelvic cysts in both kidneys. BOWEL / MESENTERY: As on the earlier study: Colonic wall thickening with relative luminal narrowing at the proximal ascending colon, level of the ileocecal valve. Extensive adjacent inflammatory stranding with a localized collection posterior to the wall of the ascending colon contains fluid and air, measures 5.0 x 3.0 cm axial by 4.4 cm cranial caudal with partial peripheral enhancement. Multiple adjacent enlarged lymph nodes. Mild wall thickening of the terminal ileum. Oral contrast in the stomach through small bowel, does not extend into the colon to this region. No bowel obstruction. APPENDIX: Not identified. PERITONEUM: No free air. No free fluid. VESSELS: Abdominal aorta is normal caliber. RETROPERITONEUM: Unremarkable. REPRODUCTIVE ORGANS: Unremarkable. BLADDER: Unremarkable. ABDOMINAL WALL: Unremarkable. BONES: No acute abnormality. Degenerative changes lumbar spine with minimal anterolisthesis at L4-5. OTHER: None. CT/Abdomen/Pelvis WITH Contrast IMPRESSION: Wall thickening of the ascending colon with pericolonic collection consistent with contained perforation and/or early abscess. Etiology may be due to inflammatory process or colitis, but is suspicious for neoplasm with irregular wall thickening, multiple adjacent enlarged lymph nodes. Also the appendix is not visualized, perforated retrocecal appendicitis less likely but is not entirely excluded. Electronically Signed: Karen Hook MD at 2:15 EST ,
[2023-03-06 22:53] LABS: Bedside Glucose 251 mg/dL (74-106)
[2023-03-07] VITALS (8 sets, daily range): BP systolic 115–129; BP diastolic 57–72; PULSE 95–100; RESP 16–17; TEMP 36.4–36.8; O2SAT 94–99
[2023-03-07] MEDS: Insulin Lispro 100 UNIT/ML INSULN.PEN SC ×4 (00:08→17:16)
[2023-03-07] MEDS: Ketorolac 15 MG/ML Vial IV ×4 (00:09→18:34)
[2023-03-07] MEDS: 0.9% Saline Lock 10 ML Syringe IV (00:10)
[2023-03-07 00:54] LABS: Bedside Glucose 256 mg/dL (74-106)
[2023-03-07] MEDS: Meropenem 1 GM in 0.9% Normal Saline (100mL MB+) 100 ML IV ×3 (05:34→22:39)
[2023-03-07] MEDS: 0.9% Normal Saline (1000mL) 1,000 ML 125 ML IV (05:48)
--- NOTE | 2023-03-07 05:55 | RAD_ITS ---
EXAM: XR CHEST, 1 VIEW CLINICAL INDICATION: sob TECHNIQUE: Frontal view of the chest. COMPARISON: No relevant prior studies available. FINDINGS: LUNGS AND PLEURAL SPACES: Subsegmental atelectasis in the lung bases. No pneumothorax. No effusion. HEART: Unremarkable. Cardiac silhouette not enlarged. MEDIASTINUM: Central airways and mediastinal contour are unremarkable. BONES/JOINTS: Unremarkable. No acute fracture. SOFT TISSUES: Unremarkable. RAD/Chest 1 View (Portable) IMPRESSION: Subsegmental atelectasis in the lung bases. Electronically Signed: Santosh Dimas MD at 5:08 EST ,
[2023-03-07 06:21] LABS: Bedside Glucose 230 mg/dL (74-106)
[2023-03-07 08:16] LABS: Absolute Lymphocyte Count 0.88 X10^3/uL (0.83-4.51); Absolute Neutrophil Count 12.6 X10^3/uL (2.0-7.7); Basophil# 0.03 X10^3/uL; Basophil% 0.2 % (0-1); Hematocrit 32.3 % (37-47); Hemoglobin 9.7 g/dL (12.0-15.0); Lymphocyte # 0.88 X10^3/ul (0.83-4.51); Lymphocyte % 5.9 % (19-41); Mean Corpuscular Hgb 22.2 pg (27.0-32.0); Mean Corpuscular Volume 73.9 fL (81-99); Mean Platelet Vol. 9.9 fl (6.2-12.0); Monocyte# 1.36 X10^3/uL; Monocyte% 9.1 % (0-10); NRBC Flagged by Analyzer 0 % (0-5); Neutrophil # 12.62 X10^3/uL (2.7-7.7); Platelet Count 519 K/mm3 (150-450); RBC Distribution Width CV 13.6 % (11.6-14.6); RBC Distribution Width SD 36.6 fl (35.1-43.9); Red Blood Count 4.37 M/mm3 (4.2-5.4)
[2023-03-07 08:31] LABS: Anion Gap 4 (5-15); BUN 10 mg/dL (7-18); BUN/Creat Ratio 15.8 RATIO (10-20); Calcium,Total 8.1 mg/dL (8.5-10.1); Chloride 107 mmol/L (98-107); Creatinine, Serum 0.63 mg/dL (0.55-1.02); EST Glomerular Filtration Rate 97 mL/min (>60); Est Glom Filt Rate - Afr Amer 118 mL/min (>60); Glucose 219 mg/dL (74-106); Magnesium 1.9 mg/dL (1.6-2.6); Phosphorus 3.5 mg/dL (2.5-4.9); Potassium 4.2 mmol/L (3.5-5.1); Sodium Level 133 mmol/L (136-145)
--- NOTE | 2023-03-07 09:07 | PN.SURG_ITS ---
Subjective Subjective Patient is found sitting out of bed in the chair. She shares that she is feeling overall well today and her pain is controlled with pain medication. She notes that it took her a little bit to come out of her anesthetic yesterday. She is doing some clear liquids this morning and expresses an appetite for more nutrition. Objective Data Objective Data Vital Signs: Vital Signs Temp Pulse Resp BP Pulse Ox O2 Del Method O2 Flow Rate 97.9 F 97 16 115/72 94 Room Air 8 03/07/23 06:22 03/07/23 06:22 03/07/23 06:22 03/07/23 06:22 03/07/23 06:22 03/07/23 06:22 03/06/23 19:30 Oxygen Flow Rate (L/min) 8 Oxygen Delivery Method Room Air Weight: 174 lb 14.389 oz Body Mass Index (BMI) 30.9 Intake & Output: Intake and Output for Last 24 Hours 03/05/23 03/06/23 03/07/23 23:59 23:59 23:59 Intake Total 1120 / 1120 2360 / 2560 1333.75 / 1333.75 Output Total 450 / 620 310 / 310 Balance 1120 / 1120 1910 / 1940 1023.75 / 1023.75 Lab / Micro Data 03/07/23 07:30 03/07/23 07:30 Labs: Laboratory Results - last 24 hr 03/06/23 04:17: Carcinoembryonic Ag 5.0 H 03/06/23 11:39: POC Glucose 147 H 03/06/23 19:45: POC Glucose 209 H 03/06/23 21:27: POC Glucose 251 H 03/07/23 00:05: POC Glucose 256 H 03/07/23 05:30: POC Glucose 230 H 03/07/23 07:30: WBC 15.0 H, RBC 4.37, Hgb 9.7 L, Hct 32.3 L, MCV 73.9 L, MCH 22.2 L, MCHC 30.0 L, RDW Std Deviation 36.6, RDW Coeff of Anand 13.6, Plt Count 519 H, MPV 9.9, Immature Gran % (Auto) 0.800, Neut % (Auto) 84.0 H, Lymph % (Auto) 5.9 L, [place] % (Auto) 9.1, Eos % (Auto) 0.0, Baso % (Auto) 0.2, Absolute Neuts (auto) 12.6 H, Absolute Lymphs (auto) 0.88, Nucleated RBC % 0, Sodium 133 L, Potassium 4.2, Chloride 107, Carbon Dioxide 22.0, Anion Gap 4 L, BUN 10, Creatinine 0.63, Estim Creat Clear Calc 60.60, Est GFR (MDRD) Af Amer 118, Est GFR (MDRD) Non-Af 97, BUN/Creatinine Ratio 15.8, Glucose 219 H, Calcium 8.1 L, Phosphorus 3.5, Magnesium 1.9 Radiography Diagnostic Testing: Radiology Impression Chest X-Ray 03/07/23 05:55 IMPRESSION: Subsegmental atelectasis in the lung bases. Electronically Signed: Santosh Dimas MD at 5:08 EST , Physical Exam Const oriented x3 and no apparent distress Resp normal respiratory effort GI GI Narrative: Abdominal binder is in place and beneath this is patient's silver dressing with a scant amount of oozing towards the left side of the dressing. Patient's right lower quadrant abdominal drain bears some serosanguineous output. Patient's abd omen is mildly distended, soft, and minimally tender to palpation Assessment & Plan Assessment/Plan (1) Retrocecal abscess: (2) Right lower quadrant abdominal pain: PLAN: Plan This is a 77-year-old female who presents with acute on chronic right lower quadrant abdominal discomfort and associated fatigue complaints his ER workup shows evidence of acute infectious process with leukocytosis and CT imaging concerning for a 4.4 cm retrocecal abscess. Etiology for this abscess is unclear at present but differential would include possible perforated appendicitis, possible perforated diverticulitis, possible perforated neoplasm... Patient is postoperative day 1 from diagnostic laparoscopy?converted?to open right hemicolectomy with ileocolic anastomosis with intraoperative findings of a perforated descending colon mass to the retroperitoneum. Patient is overall doing well today. She is controlled for pain. She has no nausea and describes an appetite. Her labs are reassuring. I did discuss with her the findings intraoperatively and stressed to her that we must first help her heal from her surgery before she concerns herself with her cancer diagnosis. For today we will plan: Neuro: Add as needed oxycodone, morphine as needed, scheduled Toradol Pulm/CV: Incentive spirometer FEN/GI: Trend electrolytes, creatinine stable, advance to full liquid diet and await return of bowel movements : Discontinue Lopez catheter today and follow for spontaneous void Heme/ID: Hemoglobin minimally down trended following surgery yesterday, continue to trend CBC, but if stable tomorrow we will plan to initiate Lovenox, continue antibiotics with meropenem and follow peritoneal cultures Endo: Glucose control per hospitalist service, appreciate their assistance Proph: Patient encouraged to ambulate as tolerated, SCDs, plan for Lovenox tomorrow so long as CBC is stable Dispo: Continue inpatient stay Charges/Coding Visit Charges Inpatient E&M: 15394 Subs Hosp L2
[2023-03-07] MEDS: Juven (unflavored) Packet 1 PACKET PO ×2 (09:09→17:16)
[2023-03-07] MEDS: oxyCODONE 5 MG Tablet PO ×3 (09:34→22:39)
[2023-03-07 12:25] LABS: Bedside Glucose 220 mg/dL (74-106)
[2023-03-07] MEDS: Aspirin 81 MG TAB.CHEW PO (13:39)
--- NOTE | 2023-03-07 14:12 | PN.HOSP_ITS ---
Reason for Visit Reason for Visit: Diagnoses Peritoneal abscess (03/05/23) Right lower quadrant pain (03/05/23) Objective Data Objective Data Vital Signs: Vital Signs Temp Pulse Resp BP Pulse Ox O2 Del Method O2 Flow Rate 97.5 F L 100 16 121/61 H 95 Room Air 8 03/07/23 11:27 03/07/23 11:27 03/07/23 11:27 03/07/23 11:27 03/07/23 11:27 03/07/23 11:27 03/06/23 19:30 Oxygen Flow Rate (L/min) 8 Oxygen Delivery Method Room Air Weight: 174 lb 14.389 oz Body Mass Index (BMI) 30.9 Intake & Output: Intake and Output for Last 24 Hours 03/05/23 03/06/23 03/07/23 23:59 23:59 23:59 Intake Total 1120 / 1120 2360 / 2560 1900.84 / 1900.84 Output Total 450 / 620 310 / 310 Balance 1120 / 1120 1910 / 1940 1590.84 / 1590.84 Lab / Micro Data 03/07/23 07:30 03/07/23 07:30 Labs: Laboratory Results - last 24 hr 03/06/23 04:17: Carcinoembryonic Ag 5.0 H 03/06/23 19:45: POC Glucose 209 H 03/06/23 21:27: POC Glucose 251 H 03/07/23 00:05: POC Glucose 256 H 03/07/23 05:30: POC Glucose 230 H 03/07/23 07:30: WBC 15.0 H, RBC 4.37, Hgb 9.7 L, Hct 32.3 L, MCV 73.9 L, MCH 22.2 L, MCHC 30.0 L, RDW Std Deviation 36.6, RDW Coeff of Anand 13.6, Plt Count 519 H, MPV 9.9, Immature Gran % (Auto) 0.800, Neut % (Auto) 84.0 H, Lymph % (Auto) 5.9 L, [place] % (Auto) 9.1, Eos % (Auto) 0.0, Baso % (Auto) 0.2, Absolute Neuts (auto) 12.6 H, Absolute Lymphs (auto) 0.88, Nucleated RBC % 0, Sodium 133 L, Potassium 4.2, Chloride 107, Carbon Dioxide 22.0, Anion Gap 4 L, BUN 10, Creatinine 0.63, Estim Creat Clear Calc 60.60, Est GFR (MDRD) Af Amer 118, Est GFR (MDRD) Non-Af 97, BUN/Creatinine Ratio 15.8, Glucose 219 H, Calcium 8.1 L, Phosphorus 3.5, Magnesium 1.9 03/07/23 11:21: POC Glucose 220 H Micro: Microbiology 03/06/23 19:37 Aspirate - Abdominal Gram Stain - Final 03/06/23 19:37 Aspirate - Abdominal Wound Culture - Preliminary GNR lactose air quality specialist Radiography Diagnostic Testing: Radiology Impression Chest X-Ray 03/07/23 05:55 IMPRESSION: Subsegmental atelectasis in the lung bases. Electronically Signed: Santosh Dimas MD at 5:08 EST , Physical Exam Narrative Seen and examined. Mild abdominal pain. Patient started on clear liquid diet. No cough or fever. No hypoxia. Physical exam General: Alert, Oriented x3, Cooperative HEENT: Atraumatic, PERRLA, EOMI, Normocephalic Oral: Oral mucosa dry. Currently NPO. No Gingival or Mucosal Lesions/ Ulcerations Neck: Supple, No JVD, Negative Carotid Bruits Lungs: Air entry diminished in Right lung base. No crepitation/rhonchi Cardiovascular: Regular rate, Regular Rhythm, Normal S1, Normal S2, No murmurs Abdomen: Soft, tenderness present over right lower quadrant. No guarding/rigidity. Bowel sounds sluggish not hard. No palpable mass. : No renal angle tenderness. No suprapubic tenderness. Extremities: No edema, Capillary Refill Less than 3 Seconds Skin: surgical dressing on right side of abdomen with drain. Musculoskeletal: No Tenderness to Palpation of Joints or Extremities Neurological: Cranial nerves II-XII grossly intact, DTR 2+/4. No acute focal neurological deficit. Psych/Mental Status: Normal Affect, Appropriate. Assessment & Plan Assessment/Plan (1) Retrocecal abscess: PLAN: Plan This 77-year-old woman being consulted for medical management for perioperative management of retrocecal abscess. 1. Right lower quadrant abdominal pain most likely due to retrocecal abscess: She might have developed retrocecal abscess probably after perforation of appendicitis/inflamed appendix or possible perforated diverticulitis with susp icion of possibility of neoplasm: Patient is being taken for surgery today. Currently n.p.o. on empiric IV antibiotics. Continue incentive spirometry. 03/07: Intraoperative findings: Patient had diagnostic laparoscopy converted to open laparotomy, right hemicolectomy with stapled [id number]-vy-[id number] ileocolic anastomosis on 03/07/2023. Intraoperative findings were perforated descending colon mass to the retroperitoneum. Retrocecal abscess cavity with foul-smelling purulent fluid. Thickened colon wall with desmoplastic reaction 20 cm of colon. Segment 6 of the liver was accessible rest was covered adhesions from prior cholecystectomy. No clinical signs of hepatic metastasis On IV antibiotic meropenem. Patient is doing well with pain controlled on clear liquid. Encourage incentive spirometry to decrease chances of pleural effusion/atelectasis and pneumonia. 2. Diabetes mellitus type 2: Accu-Chek ACH cover with Humalog sliding scale. Glucose is reasonably controlled, 195 and 147. A1c 6.6. Hold oral hypoglycemic agents as patient is n.p.o. and also going for surgery. 03/07: Glucose about 250s. Increase the dose of Lantus insulin. 3. Hypertension: Blood pressure is controlled. At home, patient is on losartan 50 mg daily. IV hydralazine as needed during n.p.o. status. 03/07: Home medications resumed. Baby aspirin regimen. 4. Hypothyroidism: 03/07: Resume levothyroxine. 5. Other chronic comorbidities include GERD, migraine and rheumatoid arthritis and history of seizure: Patient not on any antiepileptic medications. On baby aspirin. IV PPI 40 mg once daily ordered. 03/07 change IV PPI to oral. VTE prophylaxis bilateral SCDs. Postop VTE prophylaxis as per surgeons discretion depending on the risk of postop bleeding. Living will/advanced directive/end of life care: Patient does not have living will or advanced directive. She states her next of kin is her niece. After discussion of benefits/risks procedures involved with full code, DNR CC arrest and DNR CC, the patient opted for full code. Patient does want artificial life support including intubation, tube feed, ventilator and/chest compression, central venous catheter, vasopressor and DC shock if needed Total time spent in [id number] encounter in discussion of advanced directive 17 minutes. Laboratory Results 03/05/23 19:30: Urine Color Yellow, Urine Clarity Sl. Cloudy, Urine pH 5.0, Ur Specific [place] 1.025, Urine Protein 30 H, Urine Glucose (UA) Normal, Urine Ketones 5 H, Urine Occult Blood 10 H, Urine Nitrite Negative, Urine Bilirubin 3 H, Urine Urobilinogen 1 H, Ur Leukocyte Esterase 100 H, Urine RBC 0 SEEN, Urine WBC 0-5 SEEN, Ur Squamous Epith Cells 0-5 SEEN, Urine Bacteria 1+, Urine Mucus 0 SEEN 03/05/23 19:45: WBC 14.9 H, RBC 4.79, Hgb 10.7 L, Hct 35.7 L, MCV 74.5 L, MCH 22.3 L, MCHC 30.0 L, RDW Std Deviation 36.4, RDW Coeff of Anand 13.5, Plt Count 474 H, MPV 9.6, Immature Gran % (Auto) 0.700, Neut % (Auto) 83.7 H, Lymph % (Auto) 7.9 L, [place] % (Auto) 6.6, Eos % (Auto) 0.8, Baso % (Auto) 0.3, Absolute Neuts (auto) 12.5 H, Absolute Lymphs (auto) 1.18, Nucleated RBC % 0, Sodium 137, Potassium 3.9, Chloride 102, Carbon Dioxide 27.0, Anion Gap 8, BUN 16, Creatinine 0.82, Estim Creat Clear Calc 58.78, Est GFR (MDRD) Af Amer 87, Est GFR (MDRD) Non-Af 72, BUN/Creatinine Ratio 19.5, Glucose 252 H, Hemoglobin A1c 6.6 H, Calcium 9.2, Total Bilirubin 0.30, AST 6 L, ALT 11 L, Alkaline Phosphatase 107, Total Protein 7.3, Albumin 2.8 L, Globulin 4.5 H, Albumin/Globulin Ratio 0.6 L, Lipase 13 03/06/23 04:17: WBC 14.0 H, RBC 4.54, Hgb 10.0 L, Hct 33.2 L, MCV 73.1 L, MCH 22.0 L, MCHC 30.1 L, RDW Std Deviation 36.0, RDW Coeff of Anand 13.5, Plt Count 441, MPV 9.8, Immature Gran % (Auto) 0.700, Neut % (Auto) 83.9 H, Lymph % (Auto) 6.4 L, [place] % (Auto) 7.8, Eos % (Auto) 0.8, Baso % (Auto) 0.4, Absolute Neuts (auto) 11.8 H, Absolute Lymphs (auto) 0.90, Nucleated RBC % 0, Sodium 135 L, Potassium 3.7, Chloride 105, Carbon Dioxide 22.0, Anion Gap 8, BUN 11, Creatinine 0.56, Estim Creat Clear Calc 60.60, Est GFR (MDRD) Af Amer 135, Est GFR (MDRD) Non-Af 112, BUN/Creatinine Ratio 19.6, Glucose 195 H, Calcium 8.3 L, Phosphorus 2.9, Magnesium 1.6, Carcinoembryonic Ag Pending 03/06/23 06:33: POC Glucose 195 H 03/06/23 11:39: POC Glucose 147 H Charges/Coding Visit Charges Inpatient E&M: 18357 Subs Hosp L2
[2023-03-07 17:40] LABS: Bedside Glucose 190 mg/dL (74-106)
[2023-03-07] MEDS: Levothyroxine 150 MCG Tablet PO (22:39)
[2023-03-08] MEDS: Insulin Lispro 100 UNIT/ML INSULN.PEN SC ×4 (00:03→23:52)
[2023-03-08] MEDS: 0.9% Saline Lock 10 ML Syringe IV ×6 (00:04→23:58)
[2023-03-08] MEDS: Ketorolac 15 MG/ML Vial IV ×5 (00:04→23:55)
[2023-03-08 00:52] LABS: Bedside Glucose 178 mg/dL (74-106)
[2023-03-08 03:00] VITALS: BP 125/66; PULSE 85; RESP 16; TEMP 36.5; O2SAT 94
[2023-03-08] MEDS: Meropenem 1 GM in 0.9% Normal Saline (100mL MB+) 100 ML IV ×3 (06:22→21:05)
[2023-03-08 06:57] VITALS: BP 129/68; PULSE 85; RESP 16; TEMP 36.4; O2SAT 96
[2023-03-08 07:08] LABS: Absolute Lymphocyte Count 1.36 X10^3/uL (0.83-4.51); Absolute Neutrophil Count 10.8 X10^3/uL (2.0-7.7); Basophil# 0.05 X10^3/uL; Basophil% 0.4 % (0-1); Eosinophil# 0.28 X10^3/uL; Hematocrit 29.9 % (37-47); Lymphocyte # 1.36 X10^3/ul (0.83-4.51); Lymphocyte % 9.7 % (19-41); Mean Corp Hgb Conc 30.1 g/dL (32-36); Mean Corpuscular Volume 72.9 fL (81-99); Mean Platelet Vol. 9.4 fl (6.2-12.0); Monocyte# 1.18 X10^3/uL; Monocyte% 8.4 % (0-10); NRBC Flagged by Analyzer 0 % (0-5); Neutrophil # 10.84 X10^3/uL (2.7-7.7); Neutrophil % 77.4 % (47-70); Platelet Count 535 K/mm3 (150-450); RBC Distribution Width CV 13.8 % (11.6-14.6); RBC Distribution Width SD 36.8 fl (35.1-43.9)
[2023-03-08 07:11] LABS: Bedside Glucose 169 mg/dL (74-106)
[2023-03-08 07:46] LABS: Anion Gap 2 (5-15); BUN 18 mg/dL (7-18); BUN/Creat Ratio 29.5 RATIO (10-20); Calcium,Total 8.4 mg/dL (8.5-10.1); Chloride 110 mmol/L (98-107); Creatinine, Serum 0.61 mg/dL (0.55-1.02); EST Glomerular Filtration Rate 101 mL/min (>60); Est Glom Filt Rate - Afr Amer 123 mL/min (>60); Glucose 181 mg/dL (74-106); Magnesium 2.1 mg/dL (1.6-2.6); Phosphorus 2.2 mg/dL (2.5-4.9); Potassium 4.1 mmol/L (3.5-5.1); Sodium Level 135 mmol/L (136-145)
--- NOTE | 2023-03-08 07:55 | PN.SURG_ITS ---
Subjective Subjective Patient is a 77 y/o F I am following in conjunction with Dr. Ballard. Patient denies nausea, vomiting, fever. She notes incisional pain. She denies flatus and bowel movements. She tolerated a full liquid diet yesterday. She notes she mostly stayed with liquids yesterday. She had success with urination yesterday after having the Lopez catheter pulled. She walked the unit 5 times yesterday. She notes minimal amount of belching. She notes feeling over all well. Objective Data Objective Data Vital Signs: Vital Signs Temp Pulse Resp BP Pulse Ox O2 Del Method O2 Flow Rate 97.5 F L 85 16 129/68 H 96 Room Air 8 03/08/23 06:57 03/08/23 06:57 03/08/23 06:57 03/08/23 06:57 03/08/23 06:57 03/08/23 06:57 03/06/23 19:30 Oxygen Flow Rate (L/min) 8 Oxygen Delivery Method Room Air Weight: 174 lb 14.389 oz Body Mass Index (BMI) 30.9 Intake & Output: Intake and Output for Last 24 Hours 03/06/23 03/07/23 03/08/23 23:59 23:59 23:59 Intake Total 2360 / 2560 2140.84 / 2140.84 552.91 / 552.91 Output Total 450 / 620 375 / 375 Balance 1910 / 1940 1765.84 / 1765.84 542.91 / 542.91 Lab / Micro Data 03/08/23 06:35 03/08/23 06:35 Labs: Laboratory Results - last 24 hr 03/06/23 04:17: Carcinoembryonic Ag 5.0 H 03/07/23 07:30: WBC 15.0 H, RBC 4.37, Hgb 9.7 L, Hct 32.3 L, MCV 73.9 L, MCH 22.2 L, MCHC 30.0 L, RDW Std Deviation 36.6, RDW Coeff of Anand 13.6, Plt Count 519 H, MPV 9.9, Immature Gran % (Auto) 0.800, Neut % (Auto) 84.0 H, Lymph % (Auto) 5.9 L, [place] % (Auto) 9.1, Eos % (Auto) 0.0, Baso % (Auto) 0.2, Absolute Neuts (auto) 12.6 H, Absolute Lymphs (auto) 0.88, Nucleated RBC % 0, Sodium 133 L, Potassium 4.2, Chloride 107, Carbon Dioxide 22.0, Anion Gap 4 L, BUN 10, Creatinine 0.63, Estim Creat Clear Calc 60.60, Est GFR (MDRD) Af Amer 118, Est GFR (MDRD) Non-Af 97, BUN/Creatinine Ratio 15.8, Glucose 219 H, Calcium 8.1 L, Phosphorus 3.5, Magnesium 1.9 03/07/23 11:21: POC Glucose 220 H 03/07/23 17:14: POC Glucose 190 H 03/08/23 00:00: POC Glucose 178 H 03/08/23 06:35: WBC 14.0 H, RBC 4.10 L, Hgb 9.0 L, Hct 29.9 L, MCV 72.9 L, MCH 22.0 L, MCHC 30.1 L, RDW Std Deviation 36.8, RDW Coeff of Anand 13.8, Plt Count 535 H, MPV 9.4, Immature Gran % (Auto) 2.100 H, Neut % (Auto) 77.4 H, Lymph % (Auto) 9.7 L, [place] % (Auto) 8.4, Eos % (Auto) 2.0, Baso % (Auto) 0.4, Absolute Neuts (auto) 10.8 H, Absolute Lymphs (auto) 1.36, Nucleated RBC % 0, Sodium 135 L, Potassium 4.1, Chloride 110 H, Carbon Dioxide 23.0, Anion Gap 2 L, BUN 18, Creatinine 0.61, Estim Creat Clear Calc 60.60, Est GFR (MDRD) Af Amer 123, Est GFR (MDRD) Non-Af 101, BUN/Creatinine Ratio 29.5 H, Glucose 181 H, Calcium 8.4 L , Phosphorus 2.2 L, Magnesium 2.1 03/08/23 06:50: POC Glucose 169 H Micro: Microbiology 03/06/23 19:37 Aspirate - Abdominal Gram Stain - Final 03/06/23 19:37 Aspirate - Abdominal Wound Culture - Preliminary GNR lactose independent driver Physical Exam GI GI Narrative: Abdomen- incision c/d/i. No erythema or infection noted. SUZIE drain with minimal bloody serous fluid noted within the bulb. Hypoactive bowel sounds. Assessment & Plan Assessment/Plan (1) Retrocecal abscess: PLAN: I have evaluated this patient in conjunction with Dr. Ballard Continue IV fluid and IV antibiotics Remain on Full liquids at this time Continue ambulation and I.S. Labs pending Will check culture results We will continue to monitor this patient Charges/Coding Visit Charges Inpatient E&M: 14425 Subs Hosp L1 (no charge; post-op)
[2023-03-08 10:00] VITALS: PULSE 100
[2023-03-08 10:06] VITALS: BP 120/81; PULSE 100; RESP 18; TEMP 36.4; O2SAT 96
[2023-03-08] MEDS: Aspirin 81 MG TAB.CHEW PO (10:12)
[2023-03-08] MEDS: Losartan Potassium 50 MG Tablet PO (10:12)
[2023-03-08] MEDS: Juven (unflavored) Packet 1 PACKET PO (10:13)
[2023-03-08] MEDS: 0.9% Normal Saline (1000mL) 1,000 ML 25 ML IV (10:13)
[2023-03-08] MEDS: Sodium Phosphate/Na Biphos 15 MMOL in 0.9% Normal Saline (250mL Bag) 250 ML 125 MMOL IV (11:39)
--- NOTE | 2023-03-08 11:39 | NURSING ---
Walking in [place] at this time. Pt was sitting in her chair prior to walking.
[2023-03-08 12:19] LABS: Bedside Glucose 235 mg/dL (74-106)
--- NOTE | 2023-03-08 13:49 | PCM.PN.HOSP ---
Reason for Visit Reason for Visit: Diagnoses Peritoneal abscess (03/05/23) Right lower quadrant pain (03/05/23) Objective Data Objective Data Vital Signs: Vital Signs Temp Pulse Resp BP Pulse Ox O2 Del Method O2 Flow Rate 97.5 F L 100 18 120/81 H 96 Room Air 8 03/08/23 10:06 03/08/23 10:06 03/08/23 10:06 03/08/23 10:06 03/08/23 10:06 03/08/23 10:06 03/06/23 19:30 Oxygen Flow Rate (L/min) 8 Oxygen Delivery Method Room Air Weight: 174 lb 14.389 oz Body Mass Index (BMI) 30.9 Intake & Output: Intake and Output for Last 24 Hours 03/06/23 03/07/23 03/08/23 23:59 23:59 23:59 Intake Total 2360 / 2560 2140.84 / 2140.84 916.66 / 916.66 Output Total 450 / 620 375 / 375 50 / 50 Balance 1910 / 1940 1765.84 / 1765.84 866.66 / 866.66 Lab / Micro Data 03/08/23 06:35 03/08/23 06:35 Labs: Laboratory Results - last 24 hr 03/07/23 17:14: POC Glucose 190 H 03/08/23 00:00: POC Glucose 178 H 03/08/23 06:35: WBC 14.0 H, RBC 4.10 L, Hgb 9.0 L, Hct 29.9 L, MCV 72.9 L, MCH 22.0 L, MCHC 30.1 L, RDW Std Deviation 36.8, RDW Coeff of Anand 13.8, Plt Count 535 H, MPV 9.4, Immature Gran % (Auto) 2.100 H, Neut % (Auto) 77.4 H, Lymph % (Auto) 9.7 L, [place] % (Auto) 8.4, Eos % (Auto) 2.0, Baso % (Auto) 0.4, Absolute Neuts (auto) 10.8 H, Absolute Lymphs (auto) 1.36, Nucleated RBC % 0, Sodium 135 L, Potassium 4.1, Chloride 110 H, Carbon Dioxide 23.0, Anion Gap 2 L, BUN 18, Creatinine 0.61, Estim Creat Clear Calc 60.60, Est GFR (MDRD) Af Amer 123, Est GFR (MDRD) Non-Af 101, BUN/Creatinine Ratio 29.5 H, Glucose 181 H, Calcium 8.4 L, Phosphorus 2.2 L, Magnesium 2.1 03/08/23 06:50: POC Glucose 169 H 03/08/23 11:56: POC Glucose 235 H Micro: Microbiology 03/06/23 19:37 Aspirate - Abdominal Gram Stain - Final 03/06/23 19:37 Aspirate - Abdominal Wound Culture - Preliminary Escherichia coli Physical Exam Narrative Seen and examined. Mild expected abdominal pain. Patient started on clear liquid diet. No fever. No hypoxia. Patient has mild cough. Physical exam General: Alert, Oriented x3, Cooperative HEENT: Atraumatic, PERRLA, EOMI, Normocephalic Oral: Oral mucosa moist. No Gingival or Mucosal Lesions/ Ulcerations Neck: Supple, No JVD, Negative Carotid Bruits Lungs: Air entry diminished in Right lung base. No crepitation/rhonchi Cardiovascular: Regular rate, Regular Rhythm, Normal S1, Normal S2, No murmurs Abdomen: Soft, tenderness present over right lower quadrant. No guarding/rigidity. Bowel sounds sluggish. SUZIE drains containing mainly serous, serosanguineous fluid no palpable mass. : No renal angle tenderness. No suprapubic tenderness. Extremities: No edema, Capillary Refill Less than 3 Seconds Skin: surgical dressing on right side of abdomen with drain. Musculoskeletal: No Tenderness to Palpation of Joints or Extremities Neurological: Cranial nerves II-XII grossly intact, DTR 2+/4. No acute focal neurological deficit. Psych/Mental Status: Normal Affect, Appropriate. Assessment & Plan Assessment/Plan (1) Retrocecal abscess: PLAN: Plan This 77-year-old woman being consulted for medical management for perioperative management of retrocecal abscess. 1. Right lower quadrant abdominal pain most likely due to retrocecal abscess: She might have developed retrocecal abscess probably after perforation of appendicitis/inflamed appendix or possible perforated diverticulitis with suspicion of possibility of neoplasm: Patient is being taken for surgery today. Currently n.p.o. on empiric IV antibiotics. Continue incentive spirometry. 03/07: Intraoperative findings: Patient had diagnostic laparoscopy converted to open laparotomy, right hemicolectomy with stapled [id number] ileocolic anastomosis on 03/07/2023. Intraoperative findings were perforated descending colon mass to the retroperitoneum. Retrocecal abscess cavity with foul-smelling purulent fluid. Thickened colon wall with desmoplastic reaction 20 cm of colon. Segment 6 of the liver was accessible rest was covered adhesions from prior cholecystectomy. No clinical signs of hepatic metastasis On IV antibiotic meropenem. Patient is doing well with pain controlled on clear liquid. Encourage incentive spirometry to decrease chances of pleural effusion/atelectasis and pneumonia. 03/08: Aspirate fluid culture shows E. coli pansensitive but would prefer coverage of gram-negative and anaerobes broad-spectrum. Portable chest x-ray shows right subsegmental atelectasis in right lung base. Patient encouraged incentive spirometry. Mucinex DM added. 2. Diabetes mellitus type 2: Accu-Chek ACH cover with Humalog sliding scale. Glucose is reasonably controlled, 195 and 147. A1c 6.6. Hold oral hypoglycemic agents as patient is n.p.o. and also going for surgery. 03/07: Glucose about 250s. Increase the dose of Lantus insulin. 03/08: Glucose varies between 170-235. On Lantus insulin. 3. Hypertension: Blood pressure is controlled. At home, patient is on losartan 50 mg daily. IV hydralazine as needed during n.p.o. status. 03/07: Home medications resumed. Baby aspirin regimen. 4. Hypothyroidism: 03/07: Resume levothyroxine. 5. Other chronic comorbidities include GERD, migraine and rheumatoid arthritis and history of seizure: Patient not on any antiepileptic medications. On baby aspirin. IV PPI 40 mg once daily ordered. 03/07 change IV PPI to oral. VTE prophylaxis bilateral SCDs. Postop VTE prophylaxis as per surgeons discretion depending on the risk of postop bleeding. Living will/advanced directive/end of life care: Patient does not have living will or advanced directive. She states her next of kin is her niece. After discussion of benefits/risks procedures involved with full code, DNR CC arrest and DNR CC, the patient opted for full code. Patient does want artificial life support including intubation, tube feed, ventilator and/chest compression, central venous catheter, vasopressor and DC shock if needed Total time spent in [id number] encounter in discussion of advanced directive 17 minutes. Microbiology Past 72 Hours 03/06/23 19:37 Aspirate - Abdominal Gram Stain - Final 03/06/23 19:37 Aspirate - Abdominal Wound Culture - Preliminary Escherichia coli Laboratory Results 03/07/23 17:14: POC Glucose 190 H 03/08/23 00:00: POC Glucose 178 H 03/08/23 06:35: WBC 14.0 H, RBC 4.10 L, Hgb 9.0 L, Hct 29.9 L, MCV 72.9 L, MCH 22.0 L, MCHC 30.1 L, RDW Std Deviation 36.8, RDW Coeff of Anand 13.8, Plt Count 535 H, MPV 9.4, Immature Gran % (Auto) 2.100 H, Neut % (Auto) 77.4 H, Lymph % (Auto) 9.7 L, [place] % (Auto) 8.4, Eos % (Auto) 2.0, Baso % (Auto) 0.4, Absolute Neuts (auto) 10.8 H, Absolute Lymphs (auto) 1.36, Nucleated RBC % 0, Sodium 135 L, Potassium 4.1, Chloride 110 H, Carbon Dioxide 23.0, Anion Gap 2 L, BUN 18, Creatinine 0.61, Estim Creat Clear Calc 60.60, Est GFR (MDRD) Af Amer 123, Est GFR (MDRD) Non-Af 101, BUN/Creatinine Ratio 29.5 H, Glucose 181 H, Calcium 8.4 L, Phosphorus 2.2 L, Magnesium 2.1 03/08/23 06:50: POC Glucose 169 H 03/08/23 11:56: POC Glucose 235 H Clinical Impression(s) from Imaging Studies Abdomen/Pelvis CT 03/05/23 20:03 IMPRESSION: Very limited by the absence of IV and especially oral contrast. Extensive inflammatory process of the right lower quadrant associated with irregular bowel wall thickening of the right colon, probable perforation, and retrocecal abscess. Findings could represent perforated diverticulitis or perforated neoplasm. Colonoscopy is indicated. Nonobstructing left renal stone. The Nonstandard Physician Communication protocol was initiated. Abdomen/Pelvis CT 03/06/23 22:40 IMPRESSION: Wall thickening of the ascending colon with pericolonic collection consistent with contained perforation and/or early abscess. Etiology may be due to inflammatory process or colitis, but is suspicious for neoplasm with irregular wall thickening, multiple adjacent enlarged lymph nodes. Also the appendix is not visualized, perforated retrocecal appendicitis less likely but is not entirely excluded. Electronically Signed: Karen Hook MD at 2:15 EST , Chest X-Ray 03/07/23 05:55 IMPRESSION: Subsegmental atelectasis in the lung bases. Electronically Signed: Santosh Dimas MD at 5:08 EST , Charges/Coding Visit Charges Inpatient E&M: 97917 Subs Hosp L2
[2023-03-08 14:50] VITALS: BP 112/78; PULSE 96; RESP 18; TEMP 36.1; O2SAT 99
[2023-03-08 17:19] LABS: Bedside Glucose 132 mg/dL (74-106)
[2023-03-08 20:53] VITALS: BP 118/63; PULSE 105; RESP 18; TEMP 36.6; O2SAT 97
[2023-03-08] MEDS: guaiFENesin/D-Methorphan TAB.SR.12H 2 TABLET PO (20:57)
[2023-03-08] MEDS: Levothyroxine 150 MCG Tablet PO (21:01)
[2023-03-09 00:20] LABS: Bedside Glucose 207 mg/dL (74-106)
[2023-03-09 03:36] VITALS: BP 128/80; PULSE 88; RESP 16; TEMP 36.4; O2SAT 96
[2023-03-09 05:02] LABS: Absolute Lymphocyte Count 1.48 X10^3/uL (0.83-4.51); Absolute Neutrophil Count 9.3 X10^3/uL (2.0-7.7); Basophil# 0.08 X10^3/uL; Basophil% 0.6 % (0-1); Eosinophil# 0.96 X10^3/uL; Eosinophils% 7.2 % (0-5); Hemoglobin 8.7 g/dL (12.0-15.0); Lymphocyte # 1.48 X10^3/ul (0.83-4.51); Lymphocyte % 11.1 % (19-41); Mean Corpuscular Hgb 22.3 pg (27.0-32.0); Mean Corpuscular Volume 74.2 fL (81-99); Mean Platelet Vol. 9.5 fl (6.2-12.0); Monocyte# 0.98 X10^3/uL; Monocyte% 7.4 % (0-10); NRBC Flagged by Analyzer 0 % (0-5); Neutrophil # 9.32 X10^3/uL (2.7-7.7); Neutrophil % 70.1 % (47-70); Platelet Count 570 K/mm3 (150-450); RBC Distribution Width CV 13.9 % (11.6-14.6); RBC Distribution Width SD 37.1 fl (35.1-43.9); Red Blood Count 3.91 M/mm3 (4.2-5.4); White Blood Count 13.3 K/mm3 (4.4-11.0)
[2023-03-09 05:25] LABS: Anion Gap 6 (5-15); BUN 18 mg/dL (7-18); BUN/Creat Ratio 41.2 RATIO (10-20); Calcium,Total 8.4 mg/dL (8.5-10.1); Chloride 108 mmol/L (98-107); Creatinine, Serum 0.44 mg/dL (0.55-1.02); EST Glomerular Filtration Rate 149 mL/min (>60); Est Glom Filt Rate - Afr Amer 180 mL/min (>60); Glucose 135 mg/dL (74-106); Potassium 3.7 mmol/L (3.5-5.1); Sodium Level 138 mmol/L (136-145)
[2023-03-09] MEDS: Meropenem 1 GM in 0.9% Normal Saline (100mL MB+) 100 ML IV ×3 (05:56→21:02)
[2023-03-09] MEDS: Ketorolac 15 MG/ML Vial IV ×4 (05:57→23:06)
[2023-03-09] MEDS: 0.9% Saline Lock 10 ML Syringe IV ×3 (06:00→23:06)
[2023-03-09] MEDS: Insulin Lispro 100 UNIT/ML INSULN.PEN SC ×2 (06:04→12:08)
[2023-03-09 06:25] LABS: Bedside Glucose 153 mg/dL (74-106)
--- NOTE | 2023-03-09 07:21 | PN.SURG_ITS ---
Subjective Subjective Patient seen and examined during AM rounds. She is found resting in bed. She states that she did some additional walking yesterday and has passed additional flatus but denies any bowel movements. She denies any significant increase to her appetite. She does complain of some lower extremity swelling on both sides. Objective Data Objective Data Vital Signs: Vital Signs Temp Pulse Resp BP Pulse Ox O2 Del Method O2 Flow Rate 97.6 F L 88 16 128/80 H 96 Room Air 8 03/09/23 03:36 03/09/23 03:36 03/09/23 03:36 03/09/23 03:36 03/09/23 03:36 03/09/23 03:36 03/06/23 19:30 Oxygen Flow Rate (L/min) 8 Oxygen Delivery Method Room Air Weight: 174 lb 14.389 oz Body Mass Index (BMI) 30.9 Intake & Output: Intake and Output for Last 24 Hours 03/07/23 03/08/23 03/09/23 23:59 23:59 23:59 Intake Total 2140.84 / 2140.84 2291.66 / 2291.66 240 / 240 Output Total 375 / 375 130 / 130 Balance 1765.84 / 1765.84 2161.66 / 2161.66 240 / 240 Lab / Micro Data 03/09/23 04:34 03/09/23 04:34 Labs: Laboratory Results - last 24 hr 03/08/23 06:35: Sodium 135 L, Potassium 4.1, Chloride 110 H, Carbon Dioxide 23.0, Anion Gap 2 L, BUN 18, Creatinine 0.61, Estim Creat Clear Calc 60.60, Est GFR (MDRD) Af Amer 123, Est GFR (MDRD) Non-Af 101, BUN/Creatinine Ratio 29.5 H, Glucose 181 H, Calcium 8.4 L, Phosphorus 2.2 L, Magnesium 2.1 03/08/23 11:56: POC Glucose 235 H 03/08/23 17:01: POC Glucose 132 H 03/08/23 23:51: POC Glucose 207 H 03/09/23 04:34: WBC 13.3 H, RBC 3.91 L, Hgb 8.7 L, Hct 29.0 L, MCV 74.2 L, MCH 22.3 L, MCHC 30.0 L, RDW Std Deviation 37.1, RDW Coeff of Anand 13.9, Plt Count 570 H, MPV 9.5, Immature Gran % (Auto) 3.600 H, Neut % (Auto) 70.1 H, Lymph % (Auto) 11.1 L, [place] % (Auto) 7.4, Eos % (Auto) 7.2 H, Baso % (Auto) 0.6, Absolute Neuts (auto) 9.3 H, Absolute Lymphs (auto) 1.48, Nucleated RBC % 0, Sodium 138, Potassium 3.7, Chloride 108 H, Carbon Dioxide 24.0, Anion Gap 6, BUN 18, Creatinine 0.44 L, Estim Creat Clear Calc 60.60, Est GFR (MDRD) Af Amer 180, Est GFR (MDRD) Non-Af 149, BUN/Creatinine Ratio 41.2 H, Glucose 135 H, Calcium 8.4 L 03/09/23 06:03: POC Glucose 153 H Micro: Microbiology 03/06/23 19:37 Aspirate - Abdominal Gram Stain - Final 03/06/23 19:37 Aspirate - Abdominal Wound Culture - Preliminary Escherichia coli Physical Exam Const oriented x3 and no apparent distress Resp normal respiratory effort GI GI Narrative: Minimally distended, operative silver dressing remains intact beneath binder, SUZIE drain with minimal serosanguineous output. Patient overall mildly/appropriately tender to palpation Assessment & Plan Assessment/Plan (1) Retrocecal abscess: PLAN: Patient is postoperative day 3 from diagnostic laparoscopy converted to open right hemicolectomy with primary ileocolic anastomosis. Continue IV fluid and IV antibiotics and await final cultures but preliminary sh ow growth of E. coli Remain on Full liquids until having a bowel movement Continue ambulation and I.S. Plan to initiate Lovenox therapy as patient's CBC shows overall stabilization of her hemoglobin Continue inpatient stay Charges/Coding Visit Charges Inpatient E&M: 10000 Subs Hosp L2
[2023-03-09 09:59] VITALS: BP 131/54; PULSE 91; RESP 16; TEMP 36.6; O2SAT 96
[2023-03-09] MEDS: Aspirin 81 MG TAB.CHEW PO (10:01)
[2023-03-09] MEDS: guaiFENesin/D-Methorphan TAB.SR.12H 2 TABLET PO ×2 (10:01→21:01)
[2023-03-09] MEDS: Losartan Potassium 50 MG Tablet PO (10:01)
[2023-03-09] MEDS: Juven (unflavored) Packet 1 PACKET PO ×2 (10:02→17:55)
[2023-03-09] MEDS: Enoxaparin 40 MG/0.4 ML Syringe SC (10:09)
[2023-03-09 12:05] VITALS: BP 127/69; PULSE 96; RESP 16; TEMP 36.4; O2SAT 94
[2023-03-09] MEDS: Insulin Glargine-YFGN 100 UNIT/ML Pen 10 UNIT SC (12:08)
[2023-03-09 12:45] LABS: Bedside Glucose 205 mg/dL (74-106)
[2023-03-09 14:40] VITALS: BP 140/61; PULSE 91; RESP 16; TEMP 36.4; O2SAT 98
[2023-03-09] MEDS: oxyCODONE 5 MG Tablet PO (14:41)
--- NOTE | 2023-03-09 15:52 | PN.HOSP_ITS ---
Reason for Visit Reason for Visit: Diagnoses Peritoneal abscess (03/05/23) Right lower quadrant pain (03/05/23) Objective Data Objective Data Vital Signs: Vital Signs Temp Pulse Resp BP Pulse Ox O2 Del Method O2 Flow Rate 97.6 F L 91 16 140/61 H 98 Room Air 8 03/09/23 14:40 03/09/23 14:40 03/09/23 14:40 03/09/23 14:40 03/09/23 14:40 03/09/23 14:40 03/06/23 19:30 Oxygen Flow Rate (L/min) 8 Oxygen Delivery Method Room Air Weight: 174 lb 14.389 oz Body Mass Index (BMI) 30.9 Intake & Output: Intake and Output for Last 24 Hours 03/07/23 03/08/23 03/09/23 23:59 23:59 23:59 Intake Total 2140.84 / 2140.84 2291.66 / 2291.66 1586.67 / 1586.67 Output Total 375 / 375 130 / 130 Balance 1765.84 / 1765.84 2161.66 / 2161.66 1586.67 / 1586.67 Lab / Micro Data 03/09/23 04:34 03/09/23 04:34 Labs: Laboratory Results - last 24 hr 03/06/23 19:37: Miscellaneous Cytology SEE PATHOLOGY REPORT 03/08/23 17:01: POC Glucose 132 H 03/08/23 23:51: POC Glucose 207 H 03/09/23 04:34: WBC 13.3 H, RBC 3.91 L, Hgb 8.7 L, Hct 29.0 L, MCV 74.2 L, MCH 22.3 L, MCHC 30.0 L, RDW Std Deviation 37.1, RDW Coeff of Anand 13.9, Plt Count 570 H, MPV 9.5, Immature Gran % (Auto) 3.600 H, Neut % (Auto) 70.1 H, Lymph % (Auto) 11.1 L, [place] % (Auto) 7.4, Eos % (Auto) 7.2 H, Baso % (Auto) 0.6, Absolute Neuts (auto) 9.3 H, Absolute Lymphs (auto) 1.48, Nucleated RBC % 0, Sodium 138, Potassium 3.7, Chloride 108 H, Carbon Dioxide 24.0, Anion Gap 6, BUN 18, Creatinine 0.44 L, Estim Creat Clear Calc 60.60, Est GFR (MDRD) Af Amer 180, Est GFR (MDRD) Non-Af 149, BUN/Creatinine Ratio 41.2 H, Glucose 135 H, Calcium 8.4 L 03/09/23 06:03: POC Glucose 153 H 03/09/23 12:02: POC Glucose 205 H Micro: Microbiology 03/06/23 19:37 Aspirate - Abdominal Gram Stain - Final 03/06/23 19:37 Aspirate - Abdominal Wound Culture - Final Escherichia coli Escherichia coli#2 03/06/23 19:37 Aspirate - Abdominal Anaerobic Culture - Preliminary Checking for anaerobes, further studies to follow. Physical Exam Narrative Seen and examined. Mild expected abdominal pain. Diet advanced by surgery. No fever. No hypo bossman. Cough is better in the morning. Patient is doing good on incentive spirometry. Physical exam General: Alert, Oriented x3, Cooperative HEENT: Atraumatic, PERRLA, EOMI, Normocephalic Oral: Oral mucosa moist. No Gingival or Mucosal Lesions/ Ulcerations Neck: Supple, No JVD, Negative Carotid Bruits Lungs: Air entry diminished in Right lung base. No crepitation/rhonchi. Cardiovascular: Regular rate, Regular Rhythm, Normal S1, Normal S2, No murmurs Abdomen: Soft, mild tenderness present over right lower quadrant. No guarding/rigidity. Bowel sounds sluggish. SUZIE drains containing mainly serous fluid : No renal angle tenderness. No suprapubic tenderness. Extremities: No edema, Capillary Refill Less than 3 Seconds Skin: surgical dressing on right side of abdomen with drain. Musculoskeletal: No Tenderness to Palpation of Joints or Extremities Neurological: Cranial nerves II-XII grossly intact, DTR 2+/4. No acute focal neurological deficit. Psych/Mental Status: Normal Affect, Appropriate. Assessment & Plan Assessment/Plan (1) Retrocecal abscess: PLAN: Plan This 77-year-old woman being consulted for medical management for perioperative management of retrocecal abscess. 1. Right lower quadrant abdominal pain most likely due to retrocecal abscess: She might have developed retrocecal abscess probably after perforation of appendicitis/inflamed appendix or possible perforated diverticulitis with suspicion of possibility of neoplasm: Patient is being taken for surgery today. Currently n.p.o. on empiric IV antibiotics. Continue incentive spirometry. 03/07: Intraoperative findings: Patient had diagnostic laparoscopy converted to open laparotomy, right hemicolectomy with stapled [id number] ileocolic anastomosis on 03/07/2023. Intraoperative findings were perforated descending colon mass to the retroperitoneum. Retrocecal abscess cavity with foul-smelling purulent fluid. Thickened colon wall with desmoplastic reaction 20 cm of colon. Segment 6 of the liver was accessible rest was covered adhesions from prior cholecystectomy. No clinical signs of hepatic metastasis On IV antibiotic meropenem. Patient is doing well with pain controlled on clear liquid. Encourage incentive spirometry to decrease chances of pleural effusion/atelectasis and pneumonia. 03/08: Aspirate fluid culture shows E. coli pansensitive but would prefer coverage of gram-negative and anaerobes broad-spectrum. Portable chest x-ray shows right subsegmental atelectasis in right lung base. Patient encouraged incentive spirometry. Mucinex DM added. 03/09: Postop day third. Air entry better on the right lung base and patient encouraged to do incentive spirometry and Pep. No fever. Cough is better. Enoxaparin 40 mg daily added as DVT prophylaxis. PTH cytology negative for shawanda gnant cells. E. coli in peritoneal aspirate is pansensitive, ESBL negative. 2. Diabetes mellitus type 2: Accu-Chek ACH cover with Humalog sliding scale. Glucose is reasonably controlled, 195 and 147. A1c 6.6. Hold oral hypoglycemic agents as patient is n.p.o. and also going for surgery. 03/07: Glucose about 250s. Increase the dose of Lantus insulin. 03/08: Glucose varies between 170-235. On Lantus insulin. 03/09: Glucose between 153-205. 135 in AM fasting. Lantus insulin dose increased. 3. Hypertension: Blood pressure is controlled. At home, patient is on losartan 50 mg daily. IV hydralazine as needed during n.p.o. status. 03/07: Home medications resumed. Baby aspirin regimen. 4. Hypothyroidism: 03/07: Resume levothyroxine. 5. Other chronic comorbidities include GERD, migraine and rheumatoid arthritis and history of seizure: Patient not on any antiepileptic medications. On baby aspirin. IV PPI 40 mg once daily ordered. 03/07 change IV PPI to oral. VTE prophylaxis bilateral SCDs. Postop VTE prophylaxis as per surgeons discretion depending on the risk of postop bleeding. Living will/advanced directive/end of life care: Patient does not have living will or advanced directive. She states her next of kin is her niece. After discussion of benefits/risks procedures involved with full code, DNR CC arrest and DNR CC, the patient opted for full code. Patient does want artificial life support including intubation, tube feed, ventilator and/chest compression, central venous catheter, vasopressor and DC shock if needed Total time spent in [id number] encounter in discussion of advanced directive 17 minutes. Clinical Impression(s) from Imaging Studies Abdomen/Pelvis CT 03/05/23 20:03 IMPRESSION: Very limited by the absence of IV and especially oral contrast. Extensive inflammatory process of the right lower quadrant associated with irregular bowel wall thickening of the right colon, probable perforation, and retrocecal abscess. Findings could represent perforated diverticulitis or perforated neoplasm. Colonoscopy is indicated. Nonobstructing left renal stone. The Nonstandard Physician Communication protocol was initiated. Abdomen/Pelvis CT 03/06/23 22:40 IMPRESSION: Wall thickening of the ascending colon with pericolonic collection consistent with contained perforation and/or early abscess. Etiology may be due to inflammatory process or colitis, but is suspicious for neoplasm with irregular wall thickening, multiple adjacent enlarged lymph nodes. Also the appendix is not visualized, perforated retrocecal appendicitis less likely but is not entirely excluded. Electronically Signed: Karen Hook MD at 2:15 EST , Chest X-Ray 03/07/23 05:55 IMPRESSION: Subsegmental atelectasis in the lung bases. Electronically Signed: Santosh Dimas MD at 5:08 EST , Charges/Coding Visit Charges Inpatient E&M: 59045 Subs Hosp L2
[2023-03-09 17:48] VITALS: BP 134/73; PULSE 95; RESP 16; TEMP 37; O2SAT 99
[2023-03-09 18:15] LABS: Bedside Glucose 144 mg/dL (74-106)
[2023-03-09] MEDS: Levothyroxine 150 MCG Tablet PO (21:01)
[2023-03-09 21:09] VITALS: BP 134/81; PULSE 93; RESP 18; TEMP 36.2; O2SAT 97
[2023-03-09] MEDS: Morphine 4 MG/ML Syringe IV (21:14)
[2023-03-09 23:28] LABS: Bedside Glucose 144 mg/dL (74-106)
[2023-03-10 03:15] VITALS: BP 132/74; PULSE 92; RESP 18; TEMP 35.7; O2SAT 94
[2023-03-10] MEDS: Ketorolac 15 MG/ML Vial IV ×4 (05:34→23:49)
[2023-03-10] MEDS: Meropenem 1 GM in 0.9% Normal Saline (100mL MB+) 100 ML IV ×3 (05:35→20:46)
[2023-03-10] MEDS: 0.9% Saline Lock 10 ML Syringe IV (05:36)
[2023-03-10 06:12] LABS: Bedside Glucose 123 mg/dL (74-106)
[2023-03-10 08:01] LABS: Absolute Lymphocyte Count 1.49 X10^3/uL (0.83-4.51); Absolute Neutrophil Count 6.1 X10^3/uL (2.0-7.7); Basophil# 0.06 X10^3/uL; Basophil% 0.6 % (0-1); Eosinophil# 1.09 X10^3/uL; Eosinophils% 11.3 % (0-5); Hematocrit 26.5 % (37-47); Hemoglobin 7.8 g/dL (12.0-15.0); Lymphocyte # 1.49 X10^3/ul (0.83-4.51); Lymphocyte % 15.5 % (19-41); Mean Corp Hgb Conc 29.4 g/dL (32-36); Mean Corpuscular Hgb 21.7 pg (27.0-32.0); Mean Corpuscular Volume 73.8 fL (81-99); Mean Platelet Vol. 9.1 fl (6.2-12.0); Monocyte# 0.66 X10^3/uL; Monocyte% 6.9 % (0-10); NRBC Flagged by Analyzer 0 % (0-5); Neutrophil # 6.05 X10^3/uL (2.7-7.7); Neutrophil % 62.9 % (47-70); Platelet Count 506 K/mm3 (150-450); RBC Distribution Width SD 37.6 fl (35.1-43.9); Red Blood Count 3.59 M/mm3 (4.2-5.4); White Blood Count 9.6 K/mm3 (4.4-11.0)
[2023-03-10 08:37] LABS: Anion Gap 2 (5-15); BUN 21 mg/dL (7-18); BUN/Creat Ratio 43.6 RATIO (10-20); Calcium,Total 8.5 mg/dL (8.5-10.1); Chloride 111 mmol/L (98-107); Creatinine, Serum 0.48 mg/dL (0.55-1.02); EST Glomerular Filtration Rate 133 mL/min (>60); Est Glom Filt Rate - Afr Amer 161 mL/min (>60); Glucose 123 mg/dL (74-106); Potassium 4.2 mmol/L (3.5-5.1); Sodium Level 137 mmol/L (136-145)
--- NOTE | 2023-03-10 09:23 | PCM.PN.SRG ---
Subjective Subjective Patient reports she is doing well. She is passing copious gas. She denies any nausea or vomiting with full liquids. She denies abdominal pain besides her incision Objective Data Objective Data Vital Signs: Vital Signs Temp Pulse Resp BP Pulse Ox O2 Del Method O2 Flow Rate 96.3 F L 92 18 132/74 H 94 Room Air 8 03/10/23 03:15 03/10/23 03:15 03/10/23 03:15 03/10/23 03:15 03/10/23 03:15 03/10/23 03:15 03/06/23 19:30 Oxygen Flow Rate (L/min) 8 Oxygen Delivery Method Room Air Weight: 174 lb 14.389 oz Body Mass Index (BMI) 30.9 Intake & Output: Intake and Output for Last 24 Hours 03/08/23 03/09/23 03/10/23 23:59 23:59 23:59 Intake Total 2291.66 / 2291.66 2924.17 / 2924.17 282.08 / 282.08 Output Total 130 / 130 90 / 90 35 / 35 Balance 2161.66 / 2161.66 2834.17 / 2834.17 247.08 / 247.08 Lab / Micro Data 03/10/23 07:46 03/10/23 07:46 Labs: Laboratory Results - last 24 hr 03/06/23 19:37: Miscellaneous Cytology SEE PATHOLOGY REPORT 03/09/23 12:02: POC Glucose 205 H 03/09/23 17:52: POC Glucose 144 H 03/09/23 23:04: POC Glucose 144 H 03/10/23 05:33: POC Glucose 123 H 03/10/23 07:46: WBC 9.6, RBC 3.59 L, Hgb 7.8 L, Hct 26.5 L, MCV 73.8 L, MCH 21.7 L, MCHC 29.4 L, RDW Std Deviation 37.6, RDW Coeff of Anand 14.0, Plt Count 506 H, MPV 9.1, Immature Gran % (Auto) 2.800 H, Neut % (Auto) 62.9, Lymph % (Auto) 15.5 L, [place] % (Auto) 6.9, Eos % (Auto) 11.3 H, Baso % (Auto) 0.6, Absolute Neuts (auto) 6.1, Absolute Lymphs (auto) 1.49, Nucleated RBC % 0, Sodium 137, Potassium 4.2, Chloride 111 H, Carbon Dioxide 24.0, Anion Gap 2 L, BUN 21 H, Creatinine 0.48 L, Estim Creat Clear Calc 60.60, Est GFR (MDRD) Af Amer 161, Est GFR (MDRD) Non-Af 133, BUN/Creatinine Ratio 43.6 H, Glucose 123 H, Calcium 8.5 Micro: Microbiology 03/06/23 19:37 Aspirate - Abdominal Gram Stain - Final 03/06/23 19:37 Aspirate - Abdominal Wound Culture - Final Escherichia coli Escherichia coli#2 03/06/23 19:37 Aspirate - Abdominal Anaerobic Culture - Preliminary Checking for anaerobes, further studies to follow. Physical Exam Const oriented x3 and no apparent distress Resp normal respiratory effort GI soft to palpation Palpation: tender Assessment & Plan Assessment/Plan (1) Retrocecal abscess: PLAN: Patient is postoperative day 4 from resection of right colon for perforated cecum. The patient reports that she is doing well and she is tolerating full liquids with no nausea or vomiting. She feels hungry and she is passing gas. I will advance her to regular diet as the patient feels hungry and she reports she is several days between bowel movements at home as well. Her SUZIE is serosanguineous I will remove it after she is tolerating regular diet tomorrow. Possible DC tomorrow or Sunday if she is doing well and starts having bowel movement. I will remove her drain before discharge. Continue antibiotics today. Richard Mckenzie MD Pager: [facility] [address] [place] [address], [address] [place] [address] Office:
[2023-03-10 09:25] VITALS: BP 134/60; PULSE 92; RESP 17; TEMP 36.6; O2SAT 98
[2023-03-10] MEDS: Juven (unflavored) Packet 1 PACKET PO ×2 (09:31→17:26)
[2023-03-10] MEDS: Enoxaparin 40 MG/0.4 ML Syringe SC (09:32)
[2023-03-10] MEDS: Losartan Potassium 50 MG Tablet PO (09:32)
[2023-03-10] MEDS: Aspirin 81 MG TAB.CHEW PO (09:32)
[2023-03-10] MEDS: guaiFENesin/D-Methorphan TAB.SR.12H 2 TABLET PO ×2 (09:32→20:50)
[2023-03-10] MEDS: Insulin Glargine-YFGN 100 UNIT/ML Pen 13 UNIT SC (09:33)
[2023-03-10] MEDS: 0.9% Normal Saline (1000mL) 1,000 ML 25 ML IV (12:02)
[2023-03-10] MEDS: Insulin Lispro 100 UNIT/ML INSULN.PEN SC (12:03)
[2023-03-10 12:27] LABS: Bedside Glucose 164 mg/dL (74-106)
--- NOTE | 2023-03-10 13:29 | PN.HOSP_ITS ---
Reason for Visit Reason for Visit: Diagnoses Peritoneal abscess (03/05/23) Right lower quadrant pain (03/05/23) Objective Data Objective Data Vital Signs: Vital Signs Temp Pulse Resp BP Pulse Ox O2 Del Method O2 Flow Rate 97.8 F 92 17 134/60 H 98 Room Air 8 03/10/23 09:25 03/10/23 09:25 03/10/23 09:25 03/10/23 09:25 03/10/23 09:25 03/10/23 09:42 03/06/23 19:30 Oxygen Flow Rate (L/min) 8 Oxygen Delivery Method Room Air Weight: 174 lb 14.389 oz Body Mass Index (BMI) 30.9 Intake & Output: Intake and Output for Last 24 Hours 03/08/23 03/09/23 03/10/23 23:59 23:59 23:59 Intake Total 2291.66 / 2291.66 2924.17 / 2924.17 1072.08 / 1072.08 Output Total 130 / 130 90 / 90 55 / 55 Balance 2161.66 / 2161.66 2834.17 / 2834.17 1017.08 / 1017.08 Lab / Micro Data 03/10/23 07:46 03/10/23 07:46 Labs: Laboratory Results - last 24 hr 03/06/23 19:37: Miscellaneous Cytology SEE PATHOLOGY REPORT 03/09/23 17:52: POC Glucose 144 H 03/09/23 23:04: POC Glucose 144 H 03/10/23 05:33: POC Glucose 123 H 03/10/23 07:46: WBC 9.6, RBC 3.59 L, Hgb 7.8 L, Hct 26.5 L, MCV 73.8 L, MCH 21.7 L, MCHC 29.4 L, RDW Std Deviation 37.6, RDW Coeff of Anand 14.0, Plt Count 506 H, MPV 9.1, Immature Gran % (Auto) 2.800 H, Neut % (Auto) 62.9, Lymph % (Auto) 15.5 L, [place] % (Auto) 6.9, Eos % (Auto) 11.3 H, Baso % (Auto) 0.6, Absolute Neuts (auto) 6.1, Absolute Lymphs (auto) 1.49, Nucleated RBC % 0, Sodium 137, Potassium 4.2, Chloride 111 H, Carbon Dioxide 24.0, Anion Gap 2 L, BUN 21 H, Creatinine 0.48 L, Estim Creat Clear Calc 60.60, Est GFR (MDRD) Af Amer 161, Est GFR (MDRD) Non-Af 133, BUN/Creatinine Ratio 43.6 H, Glucose 123 H, Calcium 8.5 03/10/23 11:59: POC Glucose 164 H Micro: Microbiology 03/06/23 19:37 Aspirate - Abdominal Gram Stain - Final 03/06/23 19:37 Aspirate - Abdominal Wound Culture - Final Escherichia coli Escherichia coli#2 03/06/23 19:37 Aspirate - Abdominal Anaerobic Culture - Preliminary Checking for anaerobes, further studies to follow. Physical Exam Narrative Seen and examined. Mild expected surgical abdominal pain near the incision site. Diet advanced to regular with avoiding red meat, pork, sugar or concentrated sweet. No fever. No hypoxia. Cough is better in the morning. Patient is doing good on incentive spirometry. Patient still has not moved bowels or passing flatus. Physical exam General: Alert, Oriented x3, Cooperative HEENT: Atraumatic, PERRLA, EOMI, Normocephalic Oral: Oral mucosa moist. No Gingival or Mucosal Lesions/ Ulcerations Neck: Supple, No JVD, Negative Carotid Bruits Lungs: Air entry improved over right lung base. No hypoxia or tachypnea. No crepitation/rhonchi. Cardiovascular: Regular rate, Regular Rhythm, Normal S1, Normal S2, No murmurs Abdomen: Soft, mild tenderness present over right lower quadrant. No guarding/rigidity. Bowel sounds more pronounced and better. SUZIE drains containing mainly serous fluid : No renal angle tenderness. No suprapubic tenderness. Extremities: No edema, Capillary Refill Less than 3 Seconds Skin: surgical dressing on right side of abdomen with drain. Musculoskeletal: No Tenderness to Palpation of Joints or Extremities Neurological: Cranial nerves II-XII grossly intact, DTR 2+/4. No acute focal neurological deficit. Psych/Mental Status: Normal Affect, Appropriate. Assessment & Plan Assessment/Plan (1) Retrocecal abscess: PLAN: Plan This 77-year-old woman being consulted for medical management for perioperative management of retrocecal abscess. 1. Right lower quadrant abdominal pain most likely due to retrocecal abscess: She might have developed retrocecal abscess probably after perforation of append icitis/inflamed appendix or possible perforated diverticulitis with suspicion of possibility of neoplasm: Patient is being taken for surgery today. Currently n.p.o. on empiric IV antibiotics. Continue incentive spirometry. 03/07: Intraoperative findings: Patient had diagnostic laparoscopy converted to open laparotomy, right hemicolectomy with stapled opeh-vy-payl ileocolic anastomosis on 03/07/2023. Intraoperative findings were perforated descending colon mass to the retroperitoneum. Retrocecal abscess cavity with foul-smelling purulent fluid. Thickened colon wall with desmoplastic reaction 20 cm of colon. Segment 6 of the liver was accessible rest was covered adhesions from prior cholecystectomy. No clinical signs of hepatic metastasis On IV antibiotic meropenem. Patient is doing well with pain controlled on clear liquid. Encourage incentive spirometry to decrease chances of pleural effusion/atelectasis and pneumonia. 03/08: Aspirate fluid culture shows E. coli pansensitive but would prefer coverage of gram-negative and anaerobes broad-spectrum. Portable chest x-ray shows right subsegmental atelectasis in right lung base. Patient encouraged incentive spirometry. Mucinex DM added. 03/09: Postop day third. Air entry better on the right lung base and patient encouraged to do incentive spirometry and Pep. No fever. Cough is better. Enoxaparin 40 mg daily added as DVT prophylaxis. PTH cytology negative for malignant cells. E. coli in peritoneal aspirate is pansensitive, ESBL negative. 03/10: Postop day 4. Air entry has improved especially on right lung base. Regu lar diet Allowed except concentrated sweet/sugar, milk/fats, red meat/pork ordered. Waiting for bowel movement and may remove drain tomorrow. Discussed with the surgeon. Mild decrease in hemoglobin 7.8 from preop 10.0 with low MCV consistent with acute postop blood loss anemia from surgery. No leukocytosis but patient has immature granulocytes 2.8% suggesting of left shift. IV iron infusion ordered. And then oral ferrous sulfate and vitamin C ordered. No indication for PRBC transfusion. 2. Diabetes mellitus type 2: Accu-Chek ACH cover with Humalog sliding scale. Glucose is reasonably controlled, 195 and 147. A1c 6.6. Hold oral hypoglycemic agents as patient is n.p.o. and also going for surgery. 03/07: Glucose about 250s. Increase the dose of Lantus insulin. 03/08: Glucose varies between 170-235. On Lantus insulin. 03/09: Glucose between 153-205. 135 in AM fasting. Lantus insulin dose increased. 03/10 glucose is reasonably well-controlled less than 150. 3. Hypertension: Blood pressure is controlled. At home, patient is on losartan 50 mg daily. IV hydralazine as needed during n.p.o. status. 03/07: Home medications resumed. Baby aspirin regimen. 4. Hypothyroidism: 03/07: Resume levothyroxine. 5. Other chronic comorbidities include GERD, migraine and rheumatoid arthritis and history of seizure: Patient not on any antiepileptic medications. On baby aspirin. IV PPI 40 mg once daily ordered. 03/07 change IV PPI to oral. VTE prophylaxis bilateral SCDs. Postop VTE prophylaxis as per surgeons discretion depending on the risk of postop bleeding. Living will/advanced directive/end of life care: Patient does not have living will or advanced directive. She states her next of kin is her niece. After discussion of benefits/risks procedures involved with full code, DNR CC arrest and DNR CC, the patient opted for full code. Patient does want artificial life support including intubation, tube feed, ventilator and/chest compression, central venous catheter, vasopressor and DC shock if needed Total time spent in [id number] encounter in discussion of advanced directive 17 minutes. Microbiology Past 72 Hours 03/06/23 19:37 Aspirate - Abdominal Gram Stain - Final 03/06/23 19:37 Aspirate - Abdominal Wound Culture - Final Escherichia coli Escherichia coli#2 03/06/23 19:37 Aspirate - Abdominal Anaerobic Culture - Preliminary Checking for anaerobes, further studies to follow. Laboratory Results 03/06/23 19:37: Miscellaneous Cytology SEE PATHOLOGY REPORT 03/09/23 17:52: POC Glucose 144 H 03/09/23 23:04: POC Glucose 144 H 03/10/23 05:33: POC Glucose 123 H 03/10/23 07:46: WBC 9.6, RBC 3.59 L, Hgb 7.8 L, Hct 26.5 L, MCV 73.8 L, MCH 21.7 L, MCHC 29.4 L, RDW Std Deviation 37.6, RDW Coeff of Anand 14.0, Plt Count 506 H, MPV 9.1, Immature Gran % (Auto) 2.800 H, Neut % (Auto) 62.9, Lymph % (Auto) 15.5 L, [place] % (Auto) 6.9, Eos % (Auto) 11.3 H, Baso % (Auto) 0.6, Absolute Neuts (auto) 6.1, Absolute Lymphs (auto) 1.49, Nucleated RBC % 0, Sodium 137, Potassium 4.2, Chloride 111 H, Carbon Dioxide 24.0, Anion Gap 2 L, BUN 21 H, Creatinine 0.48 L, Estim Creat Clear Calc 60.60, Est GFR (MDRD) Af Amer 161, Est GFR (MDRD) Non-Af 133, BUN/Creatinine Ratio 43.6 H, Glucose 123 H, Calcium 8.5 03/10/23 11:59: POC Glucose 164 H Clinical Impression(s) from Imaging Studies Abdomen/Pelvis CT 03/05/23 20:03 IMPRESSION: Very limited by the absence of IV and especially oral contrast. Extensive inflammatory process of the right lower quadrant associated with irregular bowel wall thickening of the right colon, probable perforation, and retrocecal abscess. Findings could represent perforated diverticulitis or perforated neoplasm. Colonoscopy is indicated. Nonobstructing left renal stone. The Nonstandard Physician Communication protocol was initiated. Abdomen/Pelvis CT 03/06/23 22:40 IMPRESSION: Wall thickening of the ascending colon with pericolonic collection consistent with contained perforation and/or early abscess. Etiology may be due to inflammatory process or colitis, but is suspicious for neoplasm with irregular wall thickening, multiple adjacent enlarged lymph nodes. Also the appendix is not visualized, perforated retrocecal appendicitis less likely but is not entirely excluded. Electronically Signed: Karen Hook MD at 2:15 EST , Chest X-Ray 03/07/23 05:55 IMPRESSION: Subsegmental atelectasis in the lung bases. Electronically Signed: Santosh Dimas MD at 5:08 EST , Avoiding red meat concentrated sugar sweets Charges/Coding Visit Charges Inpatient E&M: 42944 Subs Hosp L2
[2023-03-10 14:24] LABS: Phosphorus 3.3 mg/dL (2.5-4.9)
[2023-03-10] MEDS: Sodium Ferric Gluconat/Sucrose 250 MG in 0.9% Normal Saline (250mL Bag) 250 ML 135 MG IV (14:40)
[2023-03-10 16:00] VITALS: BP 129/59; PULSE 87; RESP 17; TEMP 36.7; O2SAT 98
[2023-03-10 17:49] LABS: Bedside Glucose 99 mg/dL (74-106)
[2023-03-10 20:44] VITALS: BP 134/93; PULSE 88; RESP 18; TEMP 36.2; O2SAT 94
[2023-03-10] MEDS: Levothyroxine 150 MCG Tablet PO (20:50)
[2023-03-10 21:51] LABS: Bedside Glucose 159 mg/dL (74-106)
[2023-03-11 03:20] VITALS: BP 133/65; PULSE 82; RESP 16; TEMP 36; O2SAT 96
[2023-03-11] MEDS: Ketorolac 15 MG/ML Vial IV ×2 (05:24→12:00)
[2023-03-11] MEDS: Meropenem 1 GM in 0.9% Normal Saline (100mL MB+) 100 ML IV (05:25)
[2023-03-11 05:44] LABS: Bedside Glucose 110 mg/dL (74-106)
[2023-03-11 05:53] LABS: Absolute Lymphocyte Count 1.55 X10^3/uL (0.83-4.51); Absolute Neutrophil Count 6.8 X10^3/uL (2.0-7.7); Basophil# 0.06 X10^3/uL; Basophil% 0.6 % (0-1); Eosinophil# 0.84 X10^3/uL; Eosinophils% 8.1 % (0-5); Hemoglobin 7.9 g/dL (12.0-15.0); Lymphocyte # 1.55 X10^3/ul (0.83-4.51); Lymphocyte % 14.9 % (19-41); Mean Corp Hgb Conc 29.3 g/dL (32-36); Mean Corpuscular Hgb 22.1 pg (27.0-32.0); Mean Corpuscular Volume 75.4 fL (81-99); Mean Platelet Vol. 9.5 fl (6.2-12.0); Monocyte# 0.75 X10^3/uL; Monocyte% 7.2 % (0-10); NRBC Flagged by Analyzer 0.2 % (0-5); Neutrophil # 6.84 X10^3/uL (2.7-7.7); Neutrophil % 65.5 % (47-70); Platelet Count 527 K/mm3 (150-450); RBC Distribution Width SD 38.1 fl (35.1-43.9); Red Blood Count 3.58 M/mm3 (4.2-5.4); White Blood Count 10.4 K/mm3 (4.4-11.0)
[2023-03-11 06:14] LABS: Anion Gap 3 (5-15); BUN 21 mg/dL (7-18); BUN/Creat Ratio 46.3 RATIO (10-20); Calcium,Total 8.5 mg/dL (8.5-10.1); Chloride 114 mmol/L (98-107); Creatinine, Serum 0.45 mg/dL (0.55-1.02); EST Glomerular Filtration Rate 143 mL/min (>60); Est Glom Filt Rate - Afr Amer 173 mL/min (>60); Glucose 119 mg/dL (74-106); Potassium 4.1 mmol/L (3.5-5.1); Sodium Level 141 mmol/L (136-145)
[2023-03-11 09:20] VITALS: BP 146/90; PULSE 103; RESP 18; TEMP 36.6; O2SAT 97
[2023-03-11] MEDS: guaiFENesin/D-Methorphan TAB.SR.12H 2 TABLET PO (10:10)
[2023-03-11] MEDS: Enoxaparin 40 MG/0.4 ML Syringe SC (10:10)
[2023-03-11] MEDS: Losartan Potassium 50 MG Tablet PO (10:11)
[2023-03-11] MEDS: Aspirin 81 MG TAB.CHEW PO (10:11)
[2023-03-11] MEDS: Ascorbic Acid 500 MG Tablet PO (10:11)
[2023-03-11] MEDS: Juven (unflavored) Packet 1 PACKET PO (10:11)
[2023-03-11] MEDS: Insulin Glargine-YFGN 100 UNIT/ML Pen 13 UNIT SC (10:12)
[2023-03-11 10:43] LABS: Bedside Glucose 171 mg/dL (74-106)
[2023-03-11] MEDS: Insulin Lispro 100 UNIT/ML INSULN.PEN SC (11:56)
[2023-03-11] MEDS: Ferrous Sulfate 325 MG Tablet PO (11:56)
--- NOTE | 2023-03-11 12:25 | PCM.PN.SRG ---
Subjective Subjective Patient reports he tolerated regular diet with no abdominal pain or nausea or vomiting. She is passing gas and she had a bowel movement this morning. Objective Data Objective Data Vital Signs: Vital Signs Temp Pulse Resp BP Pulse Ox O2 Del Method O2 Flow Rate 98 F 103 H 18 146/90 H 97 Room Air 8 03/11/23 09:20 03/11/23 09:20 03/11/23 09:20 03/11/23 09:20 03/11/23 09:20 03/11/23 09:20 03/06/23 19:30 Oxygen Flow Rate (L/min) 8 Oxygen Delivery Method Room Air Weight: 174 lb 14.389 oz Body Mass Index (BMI) 30.9 Intake & Output: Intake and Output for Last 24 Hours 03/09/23 03/10/23 03/11/23 23:59 23:59 23:59 Intake Total 2924.17 / 2924.17 2235.00 / 2335.00 220 / 220 Output Total 90 / 90 115 / 155 90 / 90 Balance 2834.17 / 2834.17 2120.00 / 2180.00 130 / 130 Lab / Micro Data 03/11/23 05:30 03/11/23 05:15 Labs: Laboratory Results - last 24 hr 03/10/23 07:46: Sodium 137, Potassium 4.2, Chloride 111 H, Carbon Dioxide 24.0, Anion Gap 2 L, BUN 21 H, Creatinine 0.48 L, Estim Creat Clear Calc 60.60, Est GFR (MDRD) Af Amer 161, Est GFR (MDRD) Non-Af 133, BUN/Creatinine Ratio 43.6 H, Glucose 123 H, Calcium 8.5, Phosphorus 3.3, Magnesium 2.0 03/10/23 11:59: POC Glucose 164 H 03/10/23 17:28: POC Glucose 99 03/10/23 20:47: POC Glucose 159 H 03/11/23 05:15: Sodium 141, Potassium 4.1, Chloride 114 H, Carbon Dioxide 24.0, Anion Gap 3 L, BUN 21 H, Creatinine 0.45 L, Estim Creat Clear Calc 60.60, Est GFR (MDRD) Af Amer 173, Est GFR (MDRD) Non-Af 143, BUN/Creatinine Ratio 46.3 H, Glucose 119 H, Calcium 8.5 03/11/23 05:23: POC Glucose 110 H 03/11/23 05:30: WBC 10.4, RBC 3.58 L, Hgb 7.9 L, Hct 27.0 L, MCV 75.4 L, MCH 22.1 L, MCHC 29.3 L, RDW Std Deviation 38.1, RDW Coeff of Anand 14.0, Plt Count 527 H, MPV 9.5, Immature Gran % (Auto) 3.700 H, Neut % (Auto) 65.5, Lymph % (Auto) 14.9 L, [place] % (Auto) 7.2, Eos % (Auto) 8.1 H, Baso % (Auto) 0.6, Absolute Neuts (auto) 6.8, Absolute Lymphs (auto) 1.55, Nucleated RBC % 0.2 03/11/23 10:19: POC Glucose 171 H Micro: Microbiology 03/06/23 19:37 Aspirate - Abdominal Gram Stain - Final 03/06/23 19:37 Aspirate - Abdominal Wound Culture - Final Escherichia coli Escherichia coli#2 03/06/23 19:37 Aspirate - Abdominal Anaerobic Culture - Final Clostridium perfringens Bacteroides thetaiotaomicron Physical Exam Const oriented x3 and no apparent distress Resp normal respiratory effort GI soft to palpation and non-tender Inspection: Negative for abdominal distention Assessment & Plan Assessment/Plan (1) Retrocecal abscess: PLAN: Patient is doing well and tolerating regular diet. She had a bowel movement today. Her drain is still serosanguineous. I will remove her drain and send her home on Cipro which is sensitive on her cultures. She will follow-up with Dr. Ballard either late this week or early next week. I have ordered a repeat H&H for the day she comes in for her follow-up. Richard Mckenzie MD Pager: [facility] [address] [place] [address], [address] [place] [address] Office:
--- NOTE | 2023-03-11 12:26 | DS.PCM_ITS ---
Providers Date of Admission: 03/05/23 Primary Care Physician: Dr. Jeff Simeon, Consultations 03/06/23 07:57 Consult: Hospitalist Routine Consulting Provider: Radha Ronquillo Reason for Consult: Medical management EMERGENT Consult: No MD Notified: Yes Date Notified: 03/06/23 Time Notified: 07:57 Method of Notification: Verbal Comments:: Dr. Snell Reason For Visit: RETROCECAL ABSCESS Diagnosis Discharge Diagnosis (1) Retrocecal abscess: Status: Acute Code(s): K65.1 - Peritoneal abscess Plan: Patient is doing well and tolerating regular diet. She had a bowel movement today. Her drain is still serosanguineous. I will remove her drain and send her home on Cipro which is sensitive on her cultures. She will follow-up with Dr. Ballard either late this week or early next week. I have ordered a repeat H&H for the day she comes in for her follow-up. Richard Mckenzie MD Pager: [facility] [address] [place] [address], [address] [place] [address] Office: Medications at Discharge Home Medications ondansetron 4 mg disintegrating tablet 4 mg PO Q8H PRN PRN Nausea #20 tabs 12/21/20 aspirin 81 mg capsule 81 mg PO DAILY HEART 03/05/23 famotidine 1 tab PO DAILY INDIGESTION 03/05/23 fexofenadine 1 tab PO DAILY ALLERGIES 03/05/23 glimepiride 2 mg tablet 2 mg PO DAILY 03/05/23 levothyroxine 150 mcg tablet 150 mcg PO QHS 03/05/23 losartan 50 mg tablet 50 mg PO DAILY 03/05/23 metformin 500 mg tablet 1,000 mg PO BID 03/05/23 ciprofloxacin HCl 500 mg tablet (Cipro) 500 mg PO BID #14 tabs 03/11/23 oxycodone 5 mg tablet 5 mg PO Q6H PRN PRN Pain Score 6-10 5 days #10 tabs 03/11/23 Hospital Course Operations colectomy Summary of Care Provided Hospital Course: Patient was admitted with right-sided abdominal pain. CT revealed fluid collection on the right and possible perforated cecal mass. Patient was taken for surgery and she had a right hemicolectomy. There was a perforated mass with abscess. Drain was left in place and patient was admitted with broad-spectrum antibiotics. Once she started passing flatus she was slowly advanced to clear liquids and advanced on her diet to regular. Once tolerating regular diet and having bowel movement her drain was removed and she will be sent home in stable condition. She will be sent home on Cipro and follow-up later this week for staple removal and recheck hemoglobin. Weight / BMI Weight Weight: 174 lb 14.389 oz Body Mass Index (BMI) 30.9 ABG / Lab / Microbiology Data 03/11/23 05:30 03/11/23 05:15 Laboratory: Laboratory Results - last 24 hr 03/10/23 07:46: Sodium 137, Potassium 4.2, Chloride 111 H, Carbon Dioxide 24.0, Anion Gap 2 L, BUN 21 H, Creatinine 0.48 L, Estim Creat Clear Calc 60.60, Est GFR (MDRD) Af Amer 161, Est GFR (MDRD) Non-Af 133, BUN/Creatinine Ratio 43.6 H, Glucose 123 H, Calcium 8.5, Phosphorus 3.3, Magnesium 2.0 03/10/23 11:59: POC Glucose 164 H 03/10/23 17:28: POC Glucose 99 03/10/23 20:47: POC Glucose 159 H 03/11/23 05:15: Sodium 141, Potassium 4.1, Chloride 114 H, Carbon Dioxide 24.0, Anion Gap 3 L, BUN 21 H, Creatinine 0.45 L, Estim Creat Clear Calc 60.60, Est GFR (MDRD) Af Amer 173, Est GFR (MDRD) Non-Af 143, BUN/Creatinine Ratio 46.3 H, Glucose 119 H, Calcium 8.5 03/11/23 05:23: POC Glucose 110 H 03/11/23 05:30: WBC 10.4, RBC 3.58 L, Hgb 7.9 L, Hct 27.0 L, MCV 75.4 L, MCH 22.1 L, MCHC 29.3 L, RDW Std Deviation 38.1, RDW Coeff of Anand 14.0, Plt Count 527 H, MPV 9.5, Immature Gran % (Auto) 3.700 H, Neut % (Auto) 65.5, Lymph % (Auto) 14.9 L, [place] % (Auto) 7.2, Eos % (Auto) 8.1 H, Baso % (Auto) 0.6, Absolute Neuts (auto) 6.8, Absolute Lymphs (auto) 1.55, Nucleated RBC % 0.2 03/11/23 10:19: POC Glucose 171 H Microbiology: Microbiology 03/06/23 19:37 Aspirate - Abdominal Gram Stain - Final 03/06/23 19:37 Aspirate - Abdominal Wound Culture - Final Escherichia coli Escherichia coli#2 03/06/23 19:37 Aspirate - Abdominal Anaerobic Culture - Final Clostridium perfringens Bacteroides thetaiotaomicron D/C Instructions Discharge Diet: Light diet - advance as tolerated Discharge Activity: May Shower Lifting Restrictions: 15 lbs for 6 weeks Call your doctor if your incision/area has: Continuous Slow Oozing, Sudden Increased Bleeding, Increased Pain/ Swelling, Increased Redness, Foul Smelling Discharge and Swelling at the incision site Call your doctor if you observe: Fever of 101 or Higher Change Dressing in: 1 day Cleanse incision/area with: Soap & Water Additional Dressing/Incision Instructions: Change dressings daily and as needed. Pending Tests Upon Discharge: Blood work the morning of follow up visit before coming to the office Please Follow Up With: Santosh Ballard MD When: Please call to schedule 1 week follow up appointment. [phone] Meaningful Use Info Meaningful Use Diagnoses (Choose all that apply): None applicable Discharge Plan Admission Admit Date/Time: 03/05/23 22:41 Attending Provider: Santosh Ballard Primary Care Provider: Jeff Simeon Consulting Providers: Nohelia Lazar; King Carroll; Onelia,Rafia; Cara,[place]; Emma Dubois; Marisel Castellon; Sheri Rooney; Venu Erazo; Venu Cuevas; Felipe Walters; Stas Shelley; Marily Guajardo; Maco Richardson; Joey Myers; Petros Espinoza; Barbara Man; Leno Sun; Zuri Peterson; Francois Putnam; Canelo Fletcher; Mary Cotter; Casey Gupta; Ruth Ann Lynn NP; Ramses Victoria; Jameson Snell Discharge Orders/Prescriptions Prescriptions: New ciprofloxacin HCl [Cipro] 500 mg tablet 500 mg PO BID Qty: 14 0RF oxycodone 5 mg Tablet 5 mg PO Q6H PRN PRN (Reason: Pain Score 6-10) 5 Days Qty: 10 0RF Continued ondansetron 4 mg tablet,disintegrating 4 mg PO Q8H PRN PRN (Reason: Nausea) Qty: 20 0RF glimepiride 2 mg tablet 2 mg PO DAILY Patient Comments: TAKE 1 TABLET BY MOUTH EVERY DAY WITH BREAKFAST levothyroxine 150 mcg tablet 150 mcg PO QHS Patient Comments: TAKE 1 TABLET BY MOUTH ONCE DAILY. TAKE ON EMPTY STOMACH. FOR THYROID. PT STATES TAKES IT AT NIGHT BECAUSE OF AN INTERACTION WITH ANOTHER MEDICATION losartan 50 mg tablet 50 mg PO DAILY Patient Comments: TAKE 1 TABLET BY MOUTH EVERY DAY metformin 500 mg tablet 1,000 mg PO BID Patient Comments: TAKE 2 TABLETS BY MOUTH TWO TIMES A DAY WITH MEALS. famotidine [Pepcid] 1 tab PO DAILY fexofenadine [[place] Allergy] 1 tab PO DAILY aspirin 81 mg capsule 81 mg PO DAILY Other Ambulatory Orders: CBC W/Diff, Automated (Routine) Timeframe: 1 Week Facility: [facility] - Location: Laboratory Ordered By: Dr. Richard Mckenzie Referrals / Follow Up: Jeff Simeon DO [Primary Care Provider] - Disposition Disposition (needs filled in before D/C Order can be placed): Home, Self Care
--- NOTE | 2023-03-11 12:39 | PCM.PN.HOSP ---
Reason for Visit Reason for Visit: Diagnoses Peritoneal abscess (03/05/23) Right lower quadrant pain (03/05/23) Objective Data Objective Data Vital Signs: Vital Signs Temp Pulse Resp BP Pulse Ox O2 Del Method O2 Flow Rate 98 F 103 H 18 146/90 H 97 Room Air 8 03/11/23 09:20 03/11/23 09:20 03/11/23 09:20 03/11/23 09:20 03/11/23 09:20 03/11/23 09:20 03/06/23 19:30 Oxygen Flow Rate (L/min) 8 Oxygen Delivery Method Room Air Weight: 174 lb 14.389 oz Body Mass Index (BMI) 30.9 Intake & Output: Intake and Output for Last 24 Hours 03/09/23 03/10/23 03/11/23 23:59 23:59 23:59 Intake Total 2924.17 / 2924.17 2235.00 / 2335.00 220 / 220 Output Total 90 / 90 115 / 155 90 / 90 Balance 2834.17 / 2834.17 2120.00 / 2180.00 130 / 130 Lab / Micro Data 03/11/23 05:30 03/11/23 05:15 Labs: Laboratory Results - last 24 hr 03/10/23 07:46: Sodium 137, Potassium 4.2, Chloride 111 H, Carbon Dioxide 24.0, Anion Gap 2 L, BUN 21 H, Creatinine 0.48 L, Estim Creat Clear Calc 60.60, Est GFR (MDRD) Af Amer 161, Est GFR (MDRD) Non-Af 133, BUN/Creatinine Ratio 43.6 H, Glucose 123 H, Calcium 8.5, Phosphorus 3.3, Magnesium 2.0 03/10/23 17:28: POC Glucose 99 03/10/23 20:47: POC Glucose 159 H 03/11/23 05:15: Sodium 141, Potassium 4.1, Chloride 114 H, Carbon Dioxide 24.0, Anion Gap 3 L, BUN 21 H, Creatinine 0.45 L, Estim Creat Clear Calc 60.60, Est GFR (MDRD) Af Amer 173, Est GFR (MDRD) Non-Af 143, BUN/Creatinine Ratio 46.3 H, Glucose 119 H, Calcium 8.5 03/11/23 05:23: POC Glucose 110 H 03/11/23 05:30: WBC 10.4, RBC 3.58 L, Hgb 7.9 L, Hct 27.0 L, MCV 75.4 L, MCH 22.1 L, MCHC 29.3 L, RDW Std Deviation 38.1, RDW Coeff of Anand 14.0, Plt Count 527 H, MPV 9.5, Immature Gran % (Auto) 3.700 H, Neut % (Auto) 65.5, Lymph % (Auto) 14.9 L, [place] % (Auto) 7.2, Eos % (Auto) 8.1 H, Baso % (Auto) 0.6, Absolute Neuts (auto) 6.8, Absolute Lymphs (auto) 1.55, Nucleated RBC % 0.2 03/11/23 10:19: POC Glucose 171 H Micro: Microbiology 03/06/23 19:37 Aspirate - Abdominal Gram Stain - Final 03/06/23 19:37 Aspirate - Abdominal Wound Culture - Final Escherichia coli Escherichia coli#2 03/06/23 19:37 Aspirate - Abdominal Anaerobic Culture - Final Clostridium perfringens Bacteroides thetaiotaomicron Physical Exam Narrative Seen and examined. Patient is walking. No significant abdominal pain. She had bowel movement today. Her cough and breathing also better. Continue diet, regular with avoiding red meat, pork, sugar or concentrated sweet. No fever. No hypoxia. Cough is better in the morning. Patient is doing good on incentive spirometry. Physical exam General: Alert, Oriented x3, Cooperative HEENT: Atraumatic, PERRLA, EOMI, Normocephalic Oral: Oral mucosa moist. No Gingival or Mucosal Lesions/ Ulcerations Neck: Supple, No JVD, Negative Carotid Bruits Lungs: Air entry improved over right lung base. No hypoxia or tachypnea. No crepitation/rhonchi. Cardiovascular: Regular rate, Regular Rhythm, Normal S1, Normal S2, No murmurs Abdomen: Soft, mild tenderness present over right lower quadrant. No guarding/rigidity. Bowel sounds more pronounced and better. SUZIE drains containing mainly serous fluid : No renal angle tenderness. No suprapubic tenderness. Extremities: No edema, Capillary Refill Less than 3 Seconds Skin: surgical dressing on right side of abdomen with drain. Musculoskeletal: No Tenderness to Palpation of Joints or Extremities Neurological: Cranial nerves II-XII grossly intact, DTR 2+/4. No acute focal neurological deficit. Psych/Mental Status: Normal Affect, Appropriate. Assessment & Plan Assessment/Plan (1) Retrocecal abscess: PLAN: Plan This 77-year-old woman being consulted for medical management for perioperative management of retrocecal abscess. 1. Right lower quadrant abdominal pain most likely due to retrocecal abscess: She might have developed retrocecal abscess probably after perforation of appendicitis/inflamed appendix or possible perforated diverticulitis with suspicion of possibility of neoplasm: Patient is being taken for surgery today. Currently n.p.o. on empiric IV antibiotics. Continue incentive spirometry. 03/07: Intraoperative findings: Patient had diagnostic laparoscopy converted to open laparotomy, right hemicolectomy with stapled [id number] ileocolic anastomosis on 03/07/2023. Intraoperative findings were perforated descending colon mass to the retroperitoneum. Retrocecal abscess cavity with foul-smelling purulent fluid. Thickened colon wall with desmoplastic reaction 20 cm of colon. Segment 6 of the liver was accessible rest was covered adhesions from prior cholecystectomy. No clinical signs of hepatic metastasis On IV antibiotic meropenem. Patient is doing well with pain controlled on clear liquid. Encourage incentive spirometry to decrease chances of pleural effusion/atelectasis and pneumonia. 03/08: Aspirate fluid culture shows E. coli pansensitive but would prefer coverage of gram-negative and anaerobes broad-spectrum. Portable chest x-ray shows right subsegmental atelectasis in right lung base. Patient encouraged incentive spirometry. Mucinex DM added. 03/09: Postop day third. Air entry better on the right lung base and patient encouraged to do incentive spirometry and Pep. No fever. Cough is better. Enoxaparin 40 mg daily added as DVT prophylaxis. PTH cytology negative for malignant cells. E. coli in peritoneal aspirate is pansensitive, ESBL negative. 03/10: Postop day 4. Air entry has improved especially on right lung base. Regular diet Allowed except concentrated sweet/sugar, milk/fats, red meat/pork ordered. Waiting for bowel movement and may remove drain tomorrow. Discussed with the surgeon. Mild decrease in hemoglobin 7.8 from preop 10.0 with low MCV consistent with acute postop blood loss anemia from surgery. No leukocytosis but patient has immature granulocytes 2.8% suggesting of left shift. IV iron infusion ordered. And then oral ferrous sulfate and vitamin C ordered. No indication for PRBC transfusion. 03/11: Total SUZIE drain constant about 50 to 90 mL mL. SUZIE drain was removed by the surgeon. Patient had good bowel movement. No leakage or chances of fistula very less as patient had a bowel movement. Patient is discharged home on Cipro and Flagyl to cover E. coli, Clostridium and Bacteroides from peritoneal aspirate. The prescriptions given for 7 days but patient will follow Dr. Ballard before that and he might discontinue antibiotics depending on clinical improvement. Patient on IV meropenem since 03/06 therefore had 4 days of antibiotics. Recommend 5 more days of antibiotics. [id number] probiotics for 1 week while patient is taking antibiotics. 2. Diabetes mellitus type 2: Accu-Chek ACH cover with Humalog sliding scale. Glucose is reasonably controlled, 195 and 147. A1c 6.6. Hold oral hypoglycemic agents as patient is n.p.o. and also going for surgery. 03/07: Glucose about 250s. Increase the dose of Lantus insulin. 03/08: Glucose varies between 170-235. On Lantus insulin. 03/09: Glucose between 153-205. 135 in AM fasting. Lantus insulin dose increased. 03/10 glucose is reasonably well-controlled less than 150. 03/11: Glucose is controlled 119. Patient can resume oral hypoglycemic agents, home medications. 3. Hypertension: Blood pressure is controlled. At home, patient is on losartan 50 mg daily. IV hydralazine as needed during n.p.o. status. 03/07: Home medications resumed. Baby aspirin regimen. 4. Hypothyroidism: 03/07: Resume levothyroxine. 5. Other chronic comorbidities include GERD, migraine and rheumatoid arthritis and history of seizure: Patient not on any antiepileptic medications. On baby aspirin. IV PPI 40 mg once daily ordered. 03/07 change IV PPI to oral. VTE prophylaxis bilateral SCDs. Postop VTE prophylaxis as per surgeons discretion depending on the risk of postop bleeding. Living will/advanced directive/end of life care: Patient does not have living will or advanced directive. She states her next of kin is her niece. After discussion of benefits/risks procedures involved with full code, DNR CC arrest and DNR CC, the patient opted for full code. Patient does want artificial life support including intubation, tube feed, ventilator and/chest compression, central venous catheter, vasopressor and DC shock if needed Patient is discharged from surgical service. Microbiology Past 72 Hours 03/06/23 19:37 Aspirate - Abdominal Gram Stain - Final 03/06/23 19:37 Aspirate - Abdominal Wound Culture - Final Escherichia coli Escherichia coli#2 03/06/23 19:37 Aspirate - Abdominal Anaerobic Culture - Final Clostridium perfringens Bacteroides thetaiotaomicron Laboratory Results 03/10/23 07:46: Sodium 137, Potassium 4.2, Chloride 111 H, Carbon Dioxide 24.0, Anion Gap 2 L, BUN 21 H, Creatinine 0.48 L, Estim Creat Clear Calc 60.60, Est GFR (MDRD) Af Amer 161, Est GFR (MDRD) Non-Af 133, BUN/Creatinine Ratio 43.6 H, Glucose 123 H, Calcium 8.5, Phosphorus 3.3, Magnesium 2.0 03/10/23 17:28: POC Glucose 99 03/10/23 20:47: POC Glucose 159 H 03/11/23 05:15: Sodium 141, Potassium 4.1, Chloride 114 H, Carbon Dioxide 24.0, Anion Gap 3 L, BUN 21 H, Creatinine 0.45 L, Estim Creat Clear Calc 60.60, Est GFR (MDRD) Af Amer 173, Est GFR (MDRD) Non-Af 143, BUN/Creatinine Ratio 46.3 H, Glucose 119 H, Calcium 8.5 03/11/23 05:23: POC Glucose 110 H 03/11/23 05:30: WBC 10.4, RBC 3.58 L, Hgb 7.9 L, Hct 27.0 L, MCV 75.4 L, MCH 22.1 L, MCHC 29.3 L, RDW Std Deviation 38.1, RDW Coeff of Anand 14.0, Plt Count 527 H, MPV 9.5, Immature Gran % (Auto) 3.700 H, Neut % (Auto) 65.5, Lymph % (Auto) 14.9 L, [place] % (Auto) 7.2, Eos % (Auto) 8.1 H, Baso % (Auto) 0.6, Absolute Neuts (auto) 6.8, Absolute Lymphs (auto) 1.55, Nucleated RBC % 0.2 03/11/23 10:19: POC Glucose 171 H Clinical Impression(s) from Imaging Studies Abdomen/Pelvis CT 03/05/23 20:03 IMPRESSION: Very limited by the absence of IV and especially oral contrast. Extensive inflammatory process of the right lower quadrant associated with irregular bowel wall thickening of the right colon, probable perforation, and retrocecal abscess. Findings could represent perforated diverticulitis or perforated neoplasm. Colonoscopy is indicated. Nonobstructing left renal stone. The Nonstandard Physician Communication protocol was initiated. Abdomen/Pelvis CT 03/06/23 22:40 IMPRESSION: Wall thickening of the ascending colon with pericolonic collection consistent with contained perforation and/or early abscess. Etiology may be due to inflammatory process or colitis, but is suspicious for neoplasm with irregular wall thickening, multiple adjacent enlarged lymph nodes. Also the appendix is not visualized, perforated retrocecal appendicitis less likely but is not entirely excluded. Electronically Signed: Karen Hook MD at 2:15 EST , Chest X-Ray 03/07/23 05:55 IMPRESSION: Subsegmental atelectasis in the lung bases. Electronically Signed: Santosh Dimas MD at 5:08 EST , Avoiding red meat concentrated sugar sweets Charges/Coding Visit Charges Inpatient E&M: 33271 Subs Hosp L2
[2023-03-11 12:53] LABS: Bedside Glucose 155 mg/dL (74-106)
[2023-03-11 14:01] VITALS: BP 140/68; PULSE 84; RESP 18; TEMP 36.2; O2SAT 94
== END 2023-03-11 14:02 | disposition home or self-care (01) | DRG 329 ==
LOC: ED 22:46 → PCU 23:01
PROVIDERS: Internal Medicine; Surgery; Admitting Provider Surgery; Emergency Provider Emergency Medicine; PCP Student in an Organized Health Care Education/Training Program; Visit Provider Surgery
PROC: 0DTF0ZZ Resection of Right Large Intestine, Open Approach (ICD-10-PCS; principal; 2023-03-06 15:10)
DX: C18.2 Malignant neoplasm of ascending colon (principal); K65.1 Peritoneal abscess; D62 Acute posthemorrhagic anemia; K57.80 Diverticulitis of intestine, part unspecified, with perforation and abscess without bleeding; B96.7 Clostridium perfringens [C. perfringens] as the cause of diseases classified elsewhere; E11.65 Type 2 diabetes mellitus with hyperglycemia; E03.9 Hypothyroidism, unspecified; I10 Essential (primary) hypertension; B96.20 Unspecified Escherichia coli [E. coli] as the cause of diseases classified elsewhere; B96.6 Bacteroides fragilis [B. fragilis] as the cause of diseases classified elsewhere; G89.29 Other chronic pain; Z90.49 Acquired absence of other specified parts of digestive tract; Z79.82 Long term (current) use of aspirin; Z79.84 Long term (current) use of oral hypoglycemic drugs; Z79.899 Other long term (current) drug therapy; Z53.31 Laparoscopic surgical procedure converted to open procedure
CPT/HCPCS: 36415; 71045; 74176; 74177; 80048; 80053; 81001; 81002; 82378; 82962; 83036; 83690; 83735; 84100; 85025; 87070; 87075; 87077; 87186; 87205; 88108; 88305; 88309; 88313; 88341; 88342; 94668; 99284; J2185; J7030; J7050; Q9967; A4216; J2405; J2916; J3490

== ENCOUNTER → 2023-03-15 | Outpatient (CLI) | payer MEDICARE, SELFPAY ==
[2023-03-15 15:27] LABS: Absolute Lymphocyte Count 1.65 X10^3/uL (0.83-4.51); Absolute Neutrophil Count 10.7 X10^3/uL (2.0-7.7); Basophil# 0.08 X10^3/uL; Basophil% 0.5 % (0-1); Eosinophil# 1.08 X10^3/uL; Eosinophils% 7.3 % (0-5); Hematocrit 34.4 % (37-47); Lymphocyte # 1.65 X10^3/ul (0.83-4.51); Lymphocyte % 11.2 % (19-41); Mean Corp Hgb Conc 29.1 g/dL (32-36); Mean Corpuscular Volume 75.8 fL (81-99); Mean Platelet Vol. 9.1 fl (6.2-12.0); Monocyte# 0.99 X10^3/uL; Monocyte% 6.7 % (0-10); NRBC Flagged by Analyzer 0 % (0-5); Neutrophil # 10.71 X10^3/uL (2.7-7.7); Neutrophil % 72.9 % (47-70); Platelet Count 625 K/mm3 (150-450); RBC Distribution Width CV 16.2 % (11.6-14.6); RBC Distribution Width SD 41.7 fl (35.1-43.9); Red Blood Count 4.54 M/mm3 (4.2-5.4); White Blood Count 14.7 K/mm3 (4.4-11.0)
--- OUTSIDE RECORDS SUMMARY | 2023-03-15 19:03 | XMS RPT_ITS | CCD ---
Author Name Unknown Address [address] [place] [address] Organization [facility] Care Team Providers Care Assembly Instructions Writer Name Role Phone TIFFANY RONQUILLO Admitting Unavailable [...] Unavailable PEARCE, JEFF L Referring Unavailable RODRIGUEZ OLUIE Attending Unavailable PEARCE, JEFF L Primary Care [...] [DIPHENHYDRAMIN E HCL] Drug Allergy 6 Swelling [facility] Repository (20 sources) Hmg-Coa Reductase Inhibitors (Statins); Translations: [MYUPDYN-UQD-IU A REDUCTASE INHIBITORS] Propensity to adverse reactions to drug (disorder) 6 Contraindicatio n-Medical Surgical [facility] Repository (20 sources) Penicillins; Translations: [PENICILLINS] Propensity to adverse reactions to drug (disorder) 6 Shortness of Breath [facility] Repository Medications Current Medications Medication Drug [...] 12-08-2022 10:00-0400 Body temperature 96.4 [degF] Jeff [employer] DO Work Phone: [facility] 12-08-2022 10:00-0400 Body weight 82.56 kg Jeff Pearce DO Work Phone: [facility] 12-08-2022 10:00-0400 Diastolic blood pressure 60 mm[Hg] [employer]ost[employer] DO Work Phone: [facility] 12-08-2022 10:00-0400 Heart rate 88 /min Jeff Pearce DO Work Phone: [facility] 12-08-2022 10:00-0400 Respiratory rate 16 /min Jeff Pearce DO Work Phone: [facility] 12-08-2022 10:00-0400 Systolic blood pressure 116 mm[Hg] Jeff Pearce DO Work Phone: [facility] 05-24-2022 16:10-0400 Body temperature 97.39 [degF] Jeff Pearce DO Work Phone: [facility] 05-24-2022 16:10-0400 Body weight 80.29 kg Jeff Pearce DO Work Phone: [facility] 05-24-2022 16:10-0400 Diastolic blood pressure 78 mm[Hg] Jeff Pearce DO Work Phone: [facility] 05-24-2022 16:10-0400 Heart rate 80 /min Jeff Pearce DO Work Phone: [facility] 05-24-2022 16:10-0400 Respiratory rate 16 /min Jeff Pearce DO Work Phone: [facility] 05-24-2022 16:10-0400 Systolic blood pressure 150 mm[Hg] Jeff Pearce DO Work Phone: [facility] 04-13-2022 09:01-0500 Body temperature 97.59 [degF] Amado Beth PA-C Work Phone: [facility] 04-13-2022 09:01-0500 Body weight 82.64 kg Amado Beth PA-C Work Phone: [facility] 04-13-2022 09:01-0500 Diastolic blood pressure 66 mm[Hg] Amado [place] PA-C Work Phone: [facility] 04-13-2022 09:01-0500 Heart rate 118 /min Amado Beth PA-C Work Phone: [facility] 04-13-2022 09:01-0500 SaO2% (BldA) [Mass fraction] 96 % Amado [place] PA-C Work Phone: [facility] 04-13-2022 09:01-0500 Systolic blood pressure 138 mm[Hg] Amado [place] PA-C Work Phone: [facility] 04-10-2022 13:38-0500 Body height [address] PA-C Work Phone: [facility] 04-10-2022 13:38-0500 Body temperature 97.2 [degF] Amado [place] PA-C Work Phone: [facility] 04-10-2022 13:38-0500 Body weight 83.[address] [place] PA-C Work Phone: [facility] 04-10-2022 13:38-0500 Diastolic blood pressure 58 mm[Hg] Amado Beth PA-C Work Phone: [facility] 04-10-2022 13:38-0500 Heart rate 117 /min Amado [place] PA-C Work Phone: [facility] 04-10-2022 13:38-0500 SaO2% (BldA) [Mass fraction] 93 % Amado [place] PA-C Work Phone: [facility] 04-10-2022 13:38-0500 Systolic blood pressure 118 mm[Hg] Amado [place] PA-C Work Phone: [facility] 04-03-2022 11:11-0500 Body height 160 cm Pacc 1 Work Phone: [facility] 04-03-2022 11:11-0500 Body temperature 97.59 [degF] Pacc 1 Work Phone: [facility] 04-03-2022 11:11-0500 Body weight 83.92 kg Pacc 1 Work Phone: [facility] 04-03-2022 11:11-0500 Diastolic blood pressure 70 mm[Hg] Pacc 1 Work Phone: [facility] 02-20-2023 11:11-0500 Heart rate 91 /min Pacc 1 Work Phone: [facility] 04-03-2022 11:11-0500 Respiratory rate 14 /min Pacc 1 Work Phone: [facility] 04-03-2022 11:11-0500 SaO2% (BldA) [Mass fraction] 97 % Pacc 1 Work Phone: [facility] 04-03-2022 11:11-0500 Systolic blood pressure 118 mm[Hg] Pacc 1 Work Phone: [facility] 03-24-2022 10:27-0500 Body height 160 cm Rodriguez Louie MD Work Phone: [facility] 03-24-2022 10:27-0500 Body temperature 96.8 [degF] Rodriguez Louie MD Work Phone: [facility] 03-24-2022 10:27-0500 Body weight 84.37 kg Rodriguez Louie MD Work Phone: [facility] 03-24-2022 10:27-0500 Diastolic blood pressure 64 mm[Hg] Rodriguez Louie MD Work Phone: [facility] 03-24-2022 10:27-0500 Heart rate 113 /min Rodriguez Louie MD Work Phone: [facility] 03-24-2022 10:27-0500 SaO2% (BldA) [Mass fraction] 98 % Rodriguez Louie MD Work Phone: [facility] 03-24-2022 10:27-0500 Systolic blood pressure 124 mm[Hg] Rodriguez Louie MD Work Phone: [facility] 02-20-2022 09:30-0500 Body temperature 97.11 [degF] Jeff Pearce DO Work Phone: [facility] 02-20-2022 09:30-0500 Body weight 86.18 kg Jeff Pearce DO Work Phone: [facility] 02-20-2022 09:30-0500 Diastolic blood pressure 60 mm[Hg] Jeff Pearce DO Work Phone: [facility] 02-20-2022 09:30-0500 Heart rate 80 /min Jeff Pearce DO Work Phone: [facility] 02-20-2022 09:30-0500 Respiratory rate 16 /min Jeff Pearce DO Work Phone: [facility] 02-20-2022 09:30-0500 Systolic blood pressure 124 mm[Hg] Jeff Pearce DO Work Phone: [facility] 11-15-2021 09:11-0400 Body temperature 96.3 [degF] Jeff Pearce DO Work Phone: [facility] 11-15-2021 09:11-0400 Body weight 87.54 kg Jeff Pearce DO Work Phone: [facility] 11-15-2021 09:11-0400 Diastolic blood pressure 60 mm[Hg] Jeff Pearce DO Work Phone: [facility] 11-15-2021 09:11-0400 Heart rate 88 /min Jeff Pearce DO Work Phone: [facility] 11-15-2021 09:11-0400 Respiratory rate 16 /min Jeff Pearce DO Work Phone: [facility] 11-15-2021 09:11-0400 Systolic blood pressure 124 mm[Hg] Jeff Pearce DO Work Phone: [facility] 05-30-2021 09:15-0400 Body temperature 97 [degF] Jeff Pearce DO Work Phone: [facility] 05-30-2021 09:15-0400 Body weight 92.08 kg Jeff Pearce DO Work Phone: [facility] 05-30-2021 09:15-0400 Diastolic blood pressure 70 mm[Hg] Jeff Pearce DO Work Phone: [facility] 05-30-2021 09:15-0400 Heart rate 80 /min Jeff Pearce DO Work Phone: [facility] 05-30-2021 09:15-0400 Respiratory rate 20 /min Jeff Pearce DO Work Phone: [facility] 05-30-2021 09:15-0400 Systolic blood pressure 110 mm[Hg] Jeff Pearce DO Work Phone: [facility] Encounters Encounter Date Encounter Type Care Provider Facility Start: 02-28-2023 End: 03-01-2023 ambulatory JEFF L PEARCE Facility:[facility] Start: 02-22-2023 End: 02-22-2023 ambulatory JEFF L PEARCE Facility:[facility] Start: 02-08-2023 End: 02-08-2023 ambulatory JEFF L PEARCE Facility:[facility] Start: 01-25-2023 End: 01-25-2023 ambulatory JEFF L PEARCE Facility:[facility] Start: 01-25-2023 End: 01-25-2023 Nursing [...] Activity Detail Author Start: 02-27-2028 Colonoscopy COLONOSCOPY [facility] Start: 02-27-2028 COLORECTAL CANCER SCREENING COLORECTAL CANCER SCREENING [facility] Start: 02-27-2028 Screening for malign ant neoplasm of colon [facility] Start: 12-09-2023 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 C beba Disease Visit Annual PCP Team Chronic Disease Visit [facility] Start: 12-09-2023 BP Controlled (<130/80) BP Controlle d (<130/80) [facility] Start: 12-09-2023 Covid-19 Vaccine ( season) Covid-19 Vaccine ( season) [facility] Immunizations Immunization Date Immunization Notes Care Provider Luiz mcdonald 08-25-2020 COVID-19 vaccine (JONATHAN) Jeff Pearce DO Work Phone: [facility] 01-21-2018 influenza virus vacc ine, unspecified formulation Mi Nurse Work Phone: [facility] 05-16-2014 pneumococcal polysaccharide vaccine, 23 valent Jeff Kentrison DO Work Phone: [facility] 05-16-2010 tetanus toxoid, redu mervat diphtheria toxoid, and acellular pertussis vaccine, adsorbed Jeff Kentrison DO Work Phone: [facility] Payers Date Payer Category Payer Medicare AET MEDICARE A ETNA MEDICARE HMO [id number] 2021-Present [phone] [address] [place] [address] [facility] [id number] 2021 Medicare AETNA MEDICARE A ETNA MEDICARE HMO [id number] 2021-Present [phone] [address] [place] [address] [facility] [id number] 2021 Medicare [id number] Social History Date Type Detail Facility Start: 05-17-2015 End: 02-20-2022 Tobacco smoking status NHIS Never smoked tobacco [facility] Work Phone: Start: 05-17-2015 End: 02-20-2022 Tobacco use and exposure Smokeless tobacco non-user [facility] Work Phone: Start: 02-22-2021 End: 12-08-2022 Alcohol intake Current non-drinker of alcohol (finding) [facility] Start: 1945 Sex Assigned At Not on file [facility] Start: 05-20-2021 End: 11-15-2021 Exposure to SARS-CoV-2 (event) Not sure [facility] Work Phone: Start: 07-11-2022 End: 09-05-2022 History of Social function [facility] Work Phone: Start: 07-11-2022 End: 09-05-2022 Tobacco use panel [facility] Work Phone: Adult Depression Screening Assessment 0 [facility] Work Phone: Medical Equipment Procedure Code Equipment [...] Type Note Facility 02-22-2023 Note HNO ID: [id number] Author: HI EDMOND LPN Service: ? Author Type: LICENSED NURSE Type: Progress Notes Filed: 02/22/2023 10:19 Note Text: Patient presents for B-12 injection. Denies any problems at this time. Patient instructed on any SE of medication, verbalized understanding and agreed to proceed with treatment. Tolerated injection well. Hi Edmond LPN [facility] 02-08-2023 Note HNO ID: [id number] Author: Hi Edmond LPN Service: ? Author Type: LICENSED NURSE Type: Progress Notes Filed: 02/08/2023 10:16 AM Note Text: Patient presents for B-12 injection. Denies any problems at this time. Patient instructed on any SE of medication, verbalized understanding and agreed to proceed with treatment. Tolerated injection well. Hi Edmond LPN [facility] 01-25-2023 Note HNO ID: [id number] Author: Hi Edmond LPN Service: ? Author Type: ? Type: Progress Notes Filed: 01/25/2023 10:23 AM Note Text: Patient presents for B-12 injection. Denies any problems at this time. Patient instructed on any SE of medication, verbalized understanding and agreed to proceed with treatment. Tolerated injection well. Hi Edmond LPN [facility] 01-25-2023 History of Present illness Narrative Patient presents for B-12 injection. Denies any problems at this time. Patient instructed on any SE of medication, verbalized understanding and agreed to proceed with treatment. Tolerated injection well. Hi Edmond LPN documented in this encounter [facility] 01-11-2023 Note HNO ID: [id number] Author: Hi Edmond LPN Service: ? Author Type: ? Type: Progress Notes Filed: 01/11/2023 10:38 AM Note Text: Patient presents for B-12 injection. Denies any problems at this time. Patient instructed on any SE of medication, verbalized understanding and agreed to proceed with treatment. Tolerated injection well. Hi Edmond LPN [facility] 12-28-2022 Note HNO ID: [id number] Author: Hi Edmond LPN Service: ? Author Type: ? Type: Progress Notes Filed: 12/28/2022 10:07 AM Note Text: Patient presents for B-12 injection. Denies any problems at this time. Patient instructed on any SE of medication, verbalized understanding and agreed to proceed with treatment. Tolerated injection well. Hi Edmond LPN [facility] 12-28-2022 History of Present illness Narrative Patient presents for B-12 injection. Denies any problems at this time. Patient instructed on any SE of medication, verbalized understanding and agreed to proceed with treatment. Tolerated injection well. Hi Edmond LPN documented in this encounter [facility] 12-14-2022 Note HNO ID: [id number] Author: Hi Edmond LPN Service: ? Author Type: ? Type: Progress Notes Filed: 12/14/2022 10:12 AM Note Text: Patient presents for B-12 injection. Denies any problems at this time. Patient instructed on any SE of medication, verbalized understanding and agreed to proceed with treatment. Tolerated injection well. Hi Marcosoretga ELLIOTT [facility] 12-12-2022 Note HNO ID: [id number] Author: Jeff Pearce, Service: ? Author Type: [...] WHEN PFRMD 08/25/2003 adenomatous polyp and diverticulosis. [facility] COLONOSCOPY FLX DX W/COLLJ SPEC WHEN PFRMD 09/28/2006 No polyps found. 5 yr recall[facility]/COLLJ SPEC WHEN PFRMD 02/26/2018 Colonoscopy ESOPHAGOGASTRODUODENOSCOPY TRANSORAL DIAGNOSTIC 08/31/2003 Unremarkable, negative biopsies. [facility] ESOPHAGOGASTRODUODENOSCOPY TRANSORAL DIAGNOSTIC 02/26/2018 EGD LAPAROSCOPIC CHOLECYSTECTOMY 04/05/2022 REMV CATARACT EXTRACAP,INSERT LENS Bilateral TONSILLECTOMY HX Social History Tobacco Use Smoking status: Never Smokeless tobacco: Never Vaping Use Vaping Use: Never used Substance Use Topics Alcohol use: No Drug use: No FAMILY HISTORY Adopted: Yes Allergies: ALLERGIES Allergen Reactions Benadryl [Diphenhyd* Swelling Penicillins Shortness of Breath Admgsah-Rqd-Psn Red* Contraindication-Medical Surgical History of liver failure [...] mg EC ta (more content not included)... [facility] 12-12-2022 History of Present illness Narrative [...] HISTORY Diagnosis Date Advance care planning 08/24/2021 [facility] Diabetes mellitus, type 2 (HCC) Environmental allergies Hyperlipidemia Hypothyroidism, unspecified Liver failure (HCC) 2004 unsure of cause Migraine headache onset age 7 PAST SURGICAL HISTORY Procedure Laterality Date BREAST BIOPSY NEEDLE LEFT 12/31/2014 x 2, Dr. Ronquillo COLONOSCOPY FLX DX W/COLLJ SPEC WHEN PFRMD 08/25/2003 adenomatous polyp and diverticulosis. [facility] COLONOSCOPY FLX DX W/COLLJ SPEC WHEN PFRMD 09/28/2006 No polyps found. 5 yr recall. [facility]a. [facility] COLONOSCOPY FLX DX W/COLLJ SPEC WHEN PFRMD 02/26/2018 Colonoscopy ESOPHAGOGASTRODUODENOSCOPY TRANSORAL DIAGNOSTIC 08/31/2003 Unremarkable, negative biopsies. [facility] ESOPHAGOGASTRODUODENOSCOPY TRANSORAL DIAGNOSTIC 02/26/2018 EGD LAPAROSCOPIC CHOLECYSTECTOMY 04/05/2022 REMV CATARACT EXTRACAP,INSERT LENS Bilateral TONSILLECTOMY HX Social History Tobacco Use Smoking status: Never Smokeless tobacco: Never Vaping Use Vaping Use: Never used Substance Use Topics Alcohol use: No Drug use: No FAMILY HISTORY Adopted: Yes Allergies: ALLERGIES Allergen Reactions Benadryl [Diphenhyd* Swelling Penicillins Shortness of Breath Dimtzjf-Yaj-Xir Red* Contraindication-Medical Surgical History of liver failure [...] with the plan. Jeff Pearce DO [address] [place] [address] documented in this encounter [facility] 11-30-2022 Note HNO ID: [id number] Author: Hi Edmond LPN Service: ? Author Type: ? Type: Progress Notes Filed: 11/30/2022 9:17 AM Note Text: Patient presents for B-12 injection. Denies any problems at this time. Patient instructed on any SE of medication, verbalized understanding and agreed to proceed with treatment. Tolerated injection well. Hi Edmond LPN [facility] 11-30-2022 History of Present illness Narrative Patient presents for B-12 injection. Denies any problems at this time. Patient instructed on any SE of medication, verbalized understanding and agreed to proceed with treatment. Tolerated injection well. Hi Edmond LPN documented in this encounter [facility] 11-16-2022 Note HNO ID: [id number] Author: Hi Edmond LPN Service: ? Author Type: ? Type: Progress Notes Filed: 11/16/2022 9:02 AM Note Text: Patient presents for B-12 injection. Denies any problems at this time. Patient instructed on any SE of medication, verbalized understanding and agreed to proceed with treatment. Tolerated injection well. Hi Edmond LPN [facility] 11-16-2022 History of Present illness Narrative Patient presents for B-12 injection. Denies any problems at this time. Patient instructed on any SE of medication, verbalized understanding and agreed to proceed with treatment. Tolerated injection well. Hi Edmnod LPN documented in this encounter [facility] 11-03-2022 Note HNO ID: [id number] Author: Hi Edmond LPN Service: ? Author Type: ? Type: Progress Notes Filed: 11/03/2022 8:58 AM Note Text: Patient presents for B-12 injection. Denies any problems at this time. Patient instructed on any SE of medication, verbalized understanding and agreed to proceed with treatment. Tolerated injection well. Hi Edmond LPN [facility] 11-03-2022 History of Present illness Narrative Patient presents for B-12 injection. Denies any problems at this time. Patient instructed on any SE of medication, verbalized understanding and agreed to proceed with treatment. Tolerated injection well. Hi Edmond LPN documented in this encounter [facility] 10-17-2022 Note HNO ID: [id number] Author: Hi Edmond LPN Service: ? Author Type: ? Type: Progress Notes Filed: 10/17/2022 9:15 AM Note Text: Patient presents for B-12 injection. Denies any problems at this time. Patient instructed on any SE of medication, verbalized understanding and agreed to proceed with treatment. Tolerated injection well. Hi Edmond LPN [facility] 10-17-2022 History of Present illness Narrative Patient presents for B-12 injection. Denies any problems at this time. Patient instructed on any SE of medication, verbalized understanding and agreed to proceed with treatment. Tolerated injection well. Hi Edmond LPN documented in this encounter [facility] 10-05-2022 Miscellaneous Notes Left detailed message on voicemail that labs are normal Maribeth Andrade Ma Please inform patient that her recent liver enzyme labs and free t4 thyroid levels are normal Jeff Pearce DO documented in this encounter [facility] 10-02-2022 Note HNO ID: [id number] Author: Hi Edmond LPN Service: ? Author Type: ? Type: Progress Notes Filed: 10/02/2022 9:50 AM Note Text: Patient presents for B-12 injection. Denies any problems at this time. Patient instructed on any SE of medication, verbalized understanding and agreed to proceed with treatment. Tolerated injection well. Hi Edmond LPN [facility] 10-02-2022 History of Present illness Narrative Patient presents for B-12 injection. Denies any problems at this time. Patient instructed on any SE of medication, verbalized understanding and agreed to proceed with treatment. Tolerated injection well. Hi Edmond LPN documented in this encounter [facility] 09-19-2022 Note HNO ID: [id number] Author: Hi Edmond LPN Service: ? Author Type: ? Type: Progress Notes Filed: 09/19/2022 9:32 AM Note Text: Patient presents for B-12 injection. Denies any problems at this time. Patient instructed on any SE of medication, verbalized understanding and agreed to proceed with treatment. Tolerated injection well. Hi Edmond LPN [facility] 09-19-2022 History of Present illness Narrative Patient presents for B-12 injection. Denies any problems at this time. Patient instructed on any SE of medication, verbalized understanding and agreed to proceed with treatment. Tolerated injection well. Hi Edmond LPN documented in this encounter [facility] 09-05-2022 Note HNO ID: [id number] Author: Jeff Pearce, Service: ? Author Type: Physician Type: Progress Notes Filed: 09/05/2022 12:21 PM Note Text: Patient presents with: F/U 3 Month HPI: Aamdo Collado is a 77 year old female [...] WHEN PFRMD 08/25/2003 adenomatous polyp and diverticulosis. [facility] COLONOSCOPY FLX DX W/COLLJ SPEC WHEN PFRMD 09/28/2006 No polyps found. 5 yr recall. Guevara. [facility] COLONOSCOPY FLX DX W/COLLJ SPEC WHEN PFRMD 02/26/2018 Colonoscopy ESOPHAGOGASTRODUODENOSCOPY TRANSORAL DIAGNOSTIC 08/31/2003 Unremarkable, negative biopsies. [facility] ESOPHAGOGASTRODUODENOSCOPY TRANSORAL DIAGNOSTIC 02/26/2018 EGD LAPAROSCOPIC CHOLECYSTECTOMY 04/05/2022 REMV CATARACT EXTRACAP,INSERT LENS Bilateral TONSILLECTOMY HX Social History Tobacco Use Smoking status: Never Smokeless tobacco: Never Vaping Use Vaping Use: Never used Substance Use Topics Alcohol use: No Drug use: No FAMILY HISTORY Adopted: Yes Allergies: ALLERGIES Allergen Reactions Benadryl [Diphenhyd* Swelling Penicillins Shortness of Breath Ducxtih-Nii-Xwv Red* Contraindication-Medical Surgical History of liver failure [...] 3 lancets (ONE (more content not included)... [facility] 08-07-2022 Note HNO ID: [id number] Author: Hi Edmond LPN Service: ? Author Type: ? Type: Progress Notes Filed: 08/07/2022 11:25 AM Note Text: Patient presents for B-12 injection. Denies any problems at this time. Patient instructed on any SE of medication, verbalized understanding and agreed to proceed with treatment. Tolerated injection well. Hi Edmond LPN [facility] 08-07-2022 History of Present illness Narrative Patient presents for B-12 injection. Denies any problems at this time. Patient instructed on any SE of medication, verbalized understanding and agreed to proceed with treatment. Tolerated injection well. Hi Edmond LPN documented in this encounter [facility] 07-11-2022 Note HNO ID: [id number] Author: Hi Edmond LPN Service: ? Author Type: ? Type: Progress Notes Filed: 07/11/2022 9:35 AM Note Text: Patient presents for B-12 injection. Denies any problems at this time. Patient instructed on any SE of medication, verbalized understanding and agreed to proceed with treatment. Tolerated injection well. Hi Edmond LPN [facility] 07-11-2022 History of Present illness Narrative Patient presents for B-12 injection. Denies any problems at this time. Patient instructed on any SE of medication, verbalized understanding and agreed to proceed with treatment. Tolerated injection well. Hi Edmond LPN documented in this encounter [facility] 06-12-2022 Note HNO ID: [id number] Author: Hi Edmond LPN Service: ? Author Type: ? Type: Progress Notes Filed: 06/12/2022 9:32 AM Note Text: Patient presents for B-12 injection. Denies any problems at this time. Patient instructed on any SE of medication, verbalized understanding and agreed to proceed with treatment. Tolerated injection well. Hi Edmond LPN [facility] 06-12-2022 History of Present illness Narrative Patient presents for B-12 injection. Denies any problems at this time. Patient instructed on any SE of medication, verbalized understanding and agreed to proceed with treatment. Tolerated injection well. Hi Edmond LPN documented in this encounter [facility] 05-26-2022 Note HNO ID: [id number] Author: Jeff L Pearce, DO Service: ? [...] HISTORY Diagnosis Date Advance care planning 08/24/2021 [facility] Diabetes mellitus, type 2 (HCC) Environmental allergies Hyperlipidemia Hypothyroidism, unspecified Liver failure (HCC) 2005 unsure of cause Migraine headache onset age 7 PAST SURGICAL HISTORY Procedure Laterality Date BREAST BIOPSY NEEDLE LEFT 12/31/2014 x 2, Dr. Ronquillo COLONOSCOPY FLX DX W/COLLJ SPEC WHEN PFRMD 08/25/2003 adenomatous polyp and diverticulosis. [facility] COLONOSCOPY FLX DX W/COLLJ SPEC WHEN PFRMD 09/28/2006 No polyps found. 5 yr recall. Guevara. [facility] COLONOSCOPY FLX DX W/COLLJ SPEC WHEN PFRMD 02/26/2018 Colonoscopy ESOPHAGOGASTRODUODENOSCOPY TRANSORAL DIAGNOSTIC 08/31/2003 Unremarkable, negative biopsies. [facility] ESOPHAGOGASTRODUODENOSCOPY TRANSORAL DIAGNOSTIC 02/26/2018 EGD LAPAROSCOPIC CHOLECYSTECTOMY 04/05/2022 REMV CATARACT EXTRACAP,INSERT LENS Bilateral TONSILLECTOMY HX Social History Tobacco Use Smoking status: Never Smokeless tobacco: Never Vaping Use Vaping Use: Never used Substance Use Topics Alcohol use: No Drug use: No FAMILY HISTORY Adopted: Yes Allergies: ALLERGIES Allergen Reactions Benadryl [Diphenhyd* Swelling Penicillins Shortness of Breath Przsrcj-Hrt-Eho Red* Contraindication-Medical Surgical History of liver failure [...] 500 mg ta (more content not included)... [facility] 05-26-2022 History of Present illness Narrative [...] WHEN PFRMD 08/25/2003 adenomatous polyp and diverticulosis. [facility] COLONOSCOPY FLX DX W/COLLJ SPEC WHEN PFRMD 09/28/2006 No polyps found. 5 yr recall. [facility] COLONOSCOPY FLX DX W/COLLJ SPEC WHEN PFRMD 02/26/2018 Colonoscopy ESOPHAGOGASTRODUODENOSCOPY TRANSORAL DIAGNOSTIC 08/31/2003 Unremarkable, negative biopsies. [facility] ESOPHAGOGASTRODUODENOSCOPY TRANSORAL DIAGNOSTIC 02/26/2018 EGD LAPAROSCOPIC CHOLECYSTECTOMY 04/05/2022 REMV CATARACT EXTRACAP,INSERT LENS Bilateral TONSILLECTOMY HX Social History Tobacco Use Smoking status: Never Smokeless tobacco: Never Vaping Use Vaping Use: Never used Substance Use Topics Alcohol use: No Drug use: No FAMILY HISTORY Adopted: Yes Allergies: ALLERGIES Allergen Reactions Benadryl [Diphenhyd* Swelling Penicillins Shortness of Breath Zexktqc-Djm-Uvg Red* Contraindication-Medical Surgical History of liver failure [...] with the plan. Jeff Pearce DO [address] [place] [address] documented in this encounter [facility] 05-15-2022 Note HNO ID: [id number] Author: Hi Edmond LPN Service: ? Author Type: ? Type: Progress Notes Filed: 05/15/2022 9:03 AM Note Text: Patient presents for B-12 injection. Denies any problems at this time. Patient instructed on any SE of medication, verbalized understanding and agreed to proceed with treatment. Tolerated injection well. Hi Edmond LPN [facility] 05-15-2022 History of Present illness Narrative Patient presents for B-12 injection. Denies any problems at this time. Patient instructed on any SE of medication, verbalized understanding and agreed to proceed with treatment. Tolerated injection well. Hi Edmond LPN documented in this encounter [facility] 04-21-2022 Note HNO ID: [id number] Author: Amado Campos PA-C Service: ? Author Type: Physician Oyster Shucker Type: Progress Notes Filed: 04/21/2022 3:28 PM Note Text: FOLLOW UP VISIT - CHOLECYSTECTOMY NAME: Amado [facility]over [facility] NO.: [id number] DATE OF SERVICE: 04/13/2022 : 1945 REFERRING [...] with me as needed. Amado Campos PA-C [facility] 04-21-2022 History of Present illness Narrative FOLLOW UP VISIT - CHOLECYSTECTOMY NAME: Amado [facility] NO.: [id number] DATE OF SERVICE: 04/13/2022 : 1945 REFERRING [...] Amado Campos PA-C documented in this encounter [facility] 04-17-2022 Note HNO ID: [id number] Author: Hi Edmond LPN Service: ? Author Type: ? Type: Progress Notes Filed: 04/17/2022 9:15 AM Note Text: Patient presents for B-12 injection. Denies any problems at this time. Patient instructed on any SE of medication, verbalized understanding and agreed to proceed with treatment. Tolerated injection well. Hi Edmond LPN [facility] 04-13-2022 Instructions Amado Campos PA-C - 04/13/2022 9:33 AM EST -Continue warm compresses as needed for discomfort -OK to begin walking dog in the next few days The following instructions are important for you related to your office visit today with the [facility]. INSTRUCTIONS FOLLOWING YOU RECENT GALLBLADDER [...] you should contact our office immediately @ [phone] and ask to be transferred to the General Surgery department. documented in this encounter [facility] 04-10-2022 Note HNO ID: [id number] Author: Amado Campos PA-C Service: ? Author Type: Physician Oyster Shucker Type: Progress Notes Filed: 04/17/2022 4:48 PM Note Text: FOLLOW UP VISIT - CHOLECYSTECTOMY NAME: Amado [facility]over [facility] NO.: [id number] DATE OF SERVICE: 04/10/2022 : 1945 REFERRING [...] me in 2 days. Amado Campos PA-C [facility] 04-10-2022 Instructions Amado Campos PA-C - 04/10/2022 2:07 PM EST -Heating pad/warm compresses -Aleve short-term for pain -May use abdominal binder when up and ambulating -Call immediately if any worsening symptoms The following instructions are important for you related to your office visit today with the [facility]. INSTRUCTIONS FOLLOWING YOU RECENT GALLBLADDER [...] you should contact our office immediately @ [phone] and ask to be transferred to the General Surgery department. documented in this encounter [facility] 04-10-2022 History of Present illness Narrative FOLLOW UP VISIT - CHOLECYSTECTOMY NAME: Amado [facility]over [facility] NO.: [id number] DATE OF SERVICE: 04/10/2022 : 1945 REFERRING [...] Amado Campos PA-C documented in this encounter [facility] 04-05-2022 Note HNO ID: [id number] Author: Kelly Jordan APRN.MARKETING SERVICES COORDINATOR Service: Anesthesiology Author Type: Nurse Automobile Body Repairer Type: Anesthesia Procedure Notes Filed: 04/05/2022 7:52 AM Note Text: ANESTHESIOLOGY PROCEDURE NOTE Airway General Information Procedure Start Time/Medication Administration: 04/05/2022 7:40 AM Patient location during procedure: OR Timeout Performed Pre-procedure: timeout performed Consent Obtained: Yes Patient identity confirmed: arm 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 [address] [facility] [address]. Please read below carefully for your personalized [...] Procedures: - YOU MUST HAVE A RESPONSIBLE DIRECTOR MEDICAID TAKE YOU HOME. A SENIOR COGNOS DEVELOPER OR GENERAL MANAGER CANNOT BE MADE A RESPONSIBLE DIRECTOR MEDICAID. - We recommend that a responsible person [...] Advance Directive, please fax a copy to [phone] or email to for it to be [...] Yon Yee APRN.CNP documented in this encounter [facility] 04-03-2022 History and physical note HISTORY AND [...] > 1 time per night or hematuria. 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 Ronquillo COLONOSCOPY FLX DX W/COLLJ SPEC WHEN PFRMD 08/25/2003 adenomatous polyp and diverticulosis. [facility] COLONOSCOPY FLX DX W/COLLJ SPEC WHEN PFRMD 09/28/2006 No polyps found. 5 yr recall. [facility] COLONOSCOPY FLX DX W/COLLJ SPEC WHEN PFRMD 02/26/2018 Colonoscopy ESOPHAGOGASTRODUODENOSCOPY TRANSORAL DIAGNOSTIC 08/31/2003 Unremarkable, negative biopsies. [facility] ESOPHAGOGASTRODUODENOSCOPY TRANSORAL DIAGNOSTIC 02/26/2018 EGD REMV CATARACT [...] Benadryl [Diphenhyd* Swelling Penicillins Shortness of Breath Glskirn-Yhe-Ubi Red* Contraindication-Medical Surgical History of liver failure [...] or any previous visit (from the past 68162 hour(s)). Assessment Patient has the following medical [...] large neck Non-male patient STOP-Bang Score: 2 [id number] Score: Age: 65-74 Sex: Female CHF history: No Hypertension history: Yes Stroke/TIA/thromboembolism history: No Vascular disease history: No Diabetes history: Yes [id number] Score: 4 ASA Class: 2 ANESTHESIA FINDINGS: Intubation History: No history of difficult intubation. No abnormal airway history Significant Anesthesia Considerations: Per patient in the past she's stopped breathing during 2 surgeries. Unsure why this was. Had surgery at [place] [phone] without issues. potential difficult IV/vein access Airway [...] AM PAGER/CONTACT #: documented in this encounter [facility] 03-24-2022 Note HNO ID: [id number] Author: Rodriguez Louie MD Service: ? Author [...] more recently had an endoscopy performed at [place] where the anesthesiologist told her that she [...] WHEN PFRMD 08/25/2003 adenomatous polyp and diverticulosis. [facility] COLONOSCOPY FLX DX W/COLLJ SPEC WHEN PFRMD 09/28/2006 No polyps found. 5 yr recall. [facility] COLONOSCOPY FLX DX W/COLLJ SPEC WHEN PFRMD 02/26/2018 Colonoscopy ESOPHAGOGASTRODUODENOSCOPY TRANSORAL DIAGNOSTIC 08/31/2003 Unremarkable, negative biopsies. [facility] ESOPHAGOGASTRODUODENOSCOPY TRANSORAL DIAGNOSTIC 02/26/2018 EGD TONSILLECTOMY HX [...] 1,000 mcg INTRAMUSCU (more content not included)... [facility] 03-24-2022 History of Present illness Narrative [...] more recently had an endoscopy performed at [place] where the anesthesiologist told her that she [...] HISTORY Diagnosis Date Advance care planning 08/24/2021 [facility] Diabetes mellitus, type 2 (HCC) Environmental allergies Hyperlipidemia Hypothyroidism, unspecified Liver failure (HCC) 2004 unsure of cause Migraine headache onset age 7 OPERATIONS: PAST SURGICAL HISTORY Procedure Laterality Date BREAST BIOPSY NEEDLE LEFT Dec 31 2014 x 2, Dr. Ronquillo COLONOSCOPY FLX DX W/COLLJ SPEC WHEN PFRMD 08/25/2003 adenomatous polyp and diverticulosis. [facility] COLONOSCOPY FLX DX W/COLLJ SPEC WHEN PFRMD 09/28/2006 No polyps found. 5 yr recall. [facility] COLONOSCOPY FLX DX W/COLLJ SPEC WHEN PFRMD 02/26/2018 Colonoscopy ESOPHAGOGASTRODUODENOSCOPY TRANSORAL DIAGNOSTIC 08/31/2003 Unremarkable, negative biopsies. [facility] ESOPHAGOGASTRODUODENOSCOPY TRANSORAL DIAGNOSTIC 02/26/2018 EGD TONSILLECTOMY HX [...] 0907 ALLERGIES: Benadryl [Diphenhydramine Hcl], Penicillins, and Dxasppi-Pqc-Yzt Reductase Inhibitors PERSONAL HISTORY: Social History Tobacco Use Smoking status: Never Smokeless tobacco: Never Vaping Use Vaping Use: Never used Substance Use Topics Alcohol use: No Drug use: No FAMILY HISTORY: FAMILY HISTORY Adopted: Yes REVIEW OF SYMPTOMS: The review of systems data was entered by the nurse and reviewed by la Nursing Notes: Sheri Roth LPN 03/24/2022 10:30 [...] Procedure: LAPAROSCOPIC CHOLECYSTECTOMY WITH INTRAOPERATIVE CHOLEANGIOGRAM - 30514-404 Planned antibiotic: clindamycin 900mg IVPB telephone service adviser to OR SCDs needed - Yes Oyster Shucker Needed - Yes Diagnoses: (R10.11) RUQ abdominal pain (K80.20) Calculus of gallbladder without cholecystitis without obstruction (K76.0) Fatty liver My findings have been communicated to Dr. Jeff Pearce DO via shared medical record. This note will be forwarded to Dr. Jeff Pearce DO. Rodriguez Louie MD documented in this encounter [facility] 03-24-2022 Nurse Note REVIEW OF SYSTEMS: General: [...] Sheri Roth LPN documented in this encounter [facility] 03-22-2022 Miscellaneous Notes Called PT LVM to [...] on US results. documented in this encounter [facility] 03-20-2022 Note HNO ID: [id number] Author: Hi Edmond LPN Service: ? Author Type: ? Type: Progress Notes Filed: 03/20/2022 9:15 AM Note Text: Patient presents for B-12 injection. Denies any problems at this time. Patient instructed on any SE of medication, verbalized understanding and agreed to proceed with treatment. Tolerated injection well. Hi Edmond LPN [facility] 03-20-2022 History of Present illness Narrative Patient presents for B-12 injection. Denies any problems at this time. Patient instructed on any SE of medication, verbalized understanding and agreed to proceed with treatment. Tolerated injection well. Hi Edmond LPN documented in this encounter [facility] 03-09-2022 Note HNO ID: [id number] Author: Koki Samuels RDMS Service: ? Author Type: Supervisor Paper Machine Type: Progress Notes Filed: 03/09/2022 11:47 AM [...] Samuels RDMS March 09, 2022 11:46 AM [facility] 02-21-2022 History of Present illness Narrative [...] WHEN PFRMD 08/25/2003 adenomatous polyp and diverticulosis. [facility] COLONOSCOPY FLX DX W/COLLJ SPEC WHEN PFRMD 09/28/2006 No polyps found. 5 yr recall. [facility] COLONOSCOPY FLX DX W/COLLJ SPEC WHEN PFRMD 02/26/2018 Colonoscopy ESOPHAGOGASTRODUODENOSCOPY TRANSORAL DIAGNOSTIC 08/31/2003 Unremarkable, negative biopsies. [facility] ESOPHAGOGASTRODUODENOSCOPY TRANSORAL DIAGNOSTIC 02/26/2018 EGD TONSILLECTOMY HX Social History Tobacco Use Smoking status: Never Smokeless tobacco: Never Substance Use Topics Alcohol use: No Drug use: No FAMILY HISTORY Adopted: Yes Allergies: ALLERGIES Allergen Reactions Benadryl [Diphenhyd* Swelling Penicillins Shortness of Breath Iparsls-Zib-Ehj Red* Contraindication-Medical Surgical History of liver failure Current Meds: glimepiride (AMARYL) 2 mg tablet^Take 1 tablet by mouth daily with breakfast.^Disp: 90 tablet^Rfl: 3 lancets (ONE TOUCH DELICA) 33 gauge^Test blood sugar(s) twice daily. Dx: Type 2 DM - Controlled E11.9 Insulin: No^Disp: 1 Each^Rfl: 11 losartan (COZAAR) 50 mg tablet^Take 1 tablet by mouth once daily.^Disp: 90 tablet^Rfl: 3 Lancets (SafehisTOUCH ULTRASOFT LANCETS) lancets^Use once daily as directed [...] with supplements or by diet (goal of 4788-4465 mg/day - Set up for bone mineral [...] agreed with the plan. Jeff Pearce DO [address] [place] [address] documented in this encounter [facility] 01-17-2022 History of Present illness Narrative Patient presents for B-12 injection. Denies any problems at this time. Patient instructed on any SE of medication, verbalized understanding and agreed to proceed with treatment. Tolerated injection well. Hi Edmond LPN documented in this encounter [facility] 12-20-2021 History of Present illness Narrative Patient here for B12 injection. Given IM in right arm. Patient tolerated injection well. documented in this encounter [facility] 11-15-2021 History of Present illness Narrative Patient [...] WHEN PFRMD 08/25/2003 adenomatous polyp and diverticulosis. [facility] COLONOSCOPY FLX DX W/COLLJ SPEC WHEN PFRMD 09/28/2006 No polyps found. 5 yr recall. [facility] COLONOSCOPY FLX DX W/COLLJ SPEC WHEN PFRMD 02/26/2018 Colonoscopy ESOPHAGOGASTRODUODENOSCOPY TRANSORAL DIAGNOSTIC 08/31/2003 Unremarkable, negative biopsies. [facility] ESOPHAGOGASTRODUODENOSCOPY TRANSORAL DIAGNOSTIC 02/26/2018 EGD TONSILLECTOMY HX Social History Tobacco Use Smoking status: Never Smokeless tobacco: Never Substance Use Topics Alcohol use: No Drug use: No FAMILY HISTORY Adopted: Yes Allergies: ALLERGIES Allergen Reactions Benadryl [Diphenhyd* Swelling Penicillins Shortness of Breath Xirszvw-Qnd-Gto Red* Contraindication-Medical Surgical History of liver failure [...] with the plan. Jeff Pearce DO [address] [place] [address] documented in this encounter [facility] 10-20-2021 History of Present illness Narrative Patient presents for B-12 injection. Denies any problems at this time. Patient instructed on any SE of medication, verbalized understanding and agreed to proceed with treatment. Tolerated injection well. Jael Connolly LPN documented in this encounter [facility] 07-18-2021 History of Present illness Narrative Patient presents for B-12 injection. Denies any problems at this time. Patient instructed on any SE of medication, verbalized understanding and agreed to proceed with treatment. Tolerated injection well. Hi Edmond LPN documented in this encounter [facility] 07-04-2021 History of Present illness Narrative Patient presents for B-12 injection. Denies any problems at this time. Patient instructed on any SE of medication, verbalized understanding and agreed to proceed with treatment. Tolerated injection well. Hi Edmond LPN documented in this encounter [facility] 06-20-2021 History of Present illness Narrative Patient presents for B-12 injection. Denies any problems at this time. Patient instructed on any SE of medication, verbalized understanding and agreed to proceed with treatment. Tolerated injection well. Hi Edmond LPN documented in this encounter [facility] 06-06-2021 History of Present illness Narrative Patient presents for B-12 injection. Denies any problems at this time. Patient instructed on any SE of medication, verbalized understanding and agreed to proceed with treatment. Tolerated injection well. Hi Edmond LPN documented in this encounter [facility] 05-31-2021 History of Present illness Narrative Patient presents with: Follow Up: 3 months HPI: Amado Collado is a 76 year old female who presents to the office today for review of health conditions. Concerns today: had an episode of food allergy reaction in Dec, symptoms are improved. Was seen at [facility] and given rx for prednisone and zofran. [...] WHEN PFRMD 08/25/2003 adenomatous polyp and diverticulosis. [facility] COLONOSCOPY FLX DX W/COLLJ SPEC WHEN PFRMD 09/28/2006 No polyps found. 5 yr recall. [facility] COLONOSCOPY FLX DX W/COLLJ SPEC WHEN PFRMD 02/26/2018 Colonoscopy ESOPHAGOGASTRODUODENOSCOPY TRANSORAL DIAGNOSTIC 08/31/2003 Unremarkable, negative biopsies. [facility] ESOPHAGOGASTRODUODENOSCOPY TRANSORAL DIAGNOSTIC 02/26/2018 EGD TONSILLECTOMY HX Social History Tobacco Use Smoking status: Never Smoker Smokeless tobacco: Never Used Substance Use Topics Alcohol use: No Drug use: No FAMILY HISTORY Adopted: Yes Allergies: ALLERGIES Allergen Reactions Benadryl [Diphenhyd* Swelling Penicillins Shortness of Breath Ptombub-Xlc-Wrs Red* Contraindication-Medical Surgical History of liver failure [...] with the plan. Jeff Pearce DO [address] [place] [address] documented in this encounter [facility] 05-25-2021 Miscellaneous Notes Patient notified and verbalized understanding. Pt asking for Caroline results. Faxed request to [facility] & will place results on PCP desk [...] Caren Greenberg APRN.BLAYNE documented in this encounter [facility] 05-18-2021 Miscellaneous Notes Order faxed to [facility]. Pebbles Molina LPN Order signed. Please fax. Jahaira Harirson APRN.BLAYNE Please file orders. Needs faxed to [facility]. Pebbles Molina LPN documented in this encounter [facility] documented as of this encounter (statuses as of 05/18/2021) [facility] History of Past illness Narrative* Problem Noted Date Resolved Date Obesity, Class III, BMI >= 40 02/26/2018 Diabetes mellitus type 2, controlled, without co mplications 05/17/2015 08/23/2020 documented as of this encounter (statuses as of 05/31/2021) [facility] History of Past illness Narrative* Problem Noted Date Resolved Date Obesity, Class III, BMI >= 40 02/26/2018 Diabetes mellitus type 2, controlled, without co mplications 05/17/2015 08/23/2020 documented as of this encounter (statuses as of 06/06/2021) [facility] History of Past illness Narrative* Problem Noted Date Resolved Date Obesity, Class III, BMI >= 40 02/26/2018 Diabetes mellitus type 2, controlled, without co mplications 05/17/2015 08/23/2020 documented as of this encounter (statuses as of 06/15/2021) [facility] History of Past illness Narrative* Problem Noted Date Resolved Date Obesity, Class III, BMI >= 40 02/26/2018 Diabetes mellitus type 2, controlled, without co mplications 05/17/2015 08/23/2020 documented as of this encounter (statuses as of 06/20/2021) [facility] History of Past illness Narrative* Problem Noted Date Resolved Date Obesity, Class III, BMI >= 40 02/26/2018 Diabetes mellitus type 2, controlled, without co mplications 05/17/2015 08/23/2020 documented as of this encounter (statuses as of 07/04/2021) [facility] History of Past illness Narrative* Problem Noted Date Resolved Date Obesity, Class III, BMI >= 40 02/26/2018 Diabetes mellitus type 2, controlled, without co mplications 05/17/2015 08/23/2020 documented as of this encounter (statuses as of 07/18/2021) [facility] History of Past illness Narrative* Problem Noted Date Resolved Date Obesity, Class III, BMI >= 40 02/26/2018 Peripheral neuropathy 01/21/2018 08/22/2021 Diabetes mellitus type 2, controlled, without co mplications 05/17/2015 08/23/2020 documented as of this encounter (statuses as of 10/20/2021) [facility] History of Past illness Narrative* Problem Noted Date Resolved Date Obesity, Class III, BMI >= 40 02/26/2018 Peripheral neuropathy 01/21/2018 08/22/2021 Diabetes mellitus type 2, controlled, without co mplications 05/17/2015 08/23/2020 documented as of this encounter (statuses as of 11/15/2021) [facility] History of Past illness Narrative* Problem Noted Date Resolved Date Obesity, Class III, BMI >= 40 02/26/2018 Peripheral neuropathy 01/21/2018 08/22/2021 Diabetes mellitus type 2, controlled, without co mplications 05/17/2015 08/23/2020 documented as of this encounter (statuses as of 12/20/2021) [facility] of Past illness Narrative* Problem Noted Date Resolved Date Obesity, Class III, BMI >= 40 02/26/2018 Peripheral neuropathy 01/21/2018 08/22/2021 Diabetes mellitus type 2, controlled, without co mplications 05/17/2015 08/23/2020 documented as of this encounter (statuses as of 01/17/2022) [facility] History of Past illness Narrative* Problem Noted Date Resolved Date Obesity, Class III, BMI >= 40 02/26/2018 Peripheral neuropathy 01/21/2018 08/22/2021 Diabetes mellitus type 2, controlled, without co mplications 05/17/2015 08/23/2020 documented as of this encounter (statuses as of 02/21/2022) [facility] History of Past illness Narrative* Problem Noted Date Resolved Date Obesity, Class III, BMI >= 40 02/26/2018 Peripheral neuropathy 01/21/2018 08/22/2021 Diabetes mellitus type 2, controlled, without co mplications 05/17/2015 08/23/2020 documented as of this encounter (statuses as of 03/20/2022) [facility] of Past illness Narrative* Problem Noted Date Resolved Date Obesity, Class III, BMI >= 40 02/26/2018 Peripheral neuropathy 01/21/2018 08/22/2021 Diabetes mellitus type 2, controlled, without co mplications 05/17/2015 08/23/2020 documented as of this encounter (statuses as of 03/22/2022) [facility] History of Past illness Narrative* Problem Noted Date Resolved Date Obesity, Class III, BMI >= 40 02/26/2018 Peripheral neuropathy 01/21/2018 08/22/2021 Diabetes mellitus type 2, controlled, without co mplications 05/17/2015 08/23/2020 documented as of this encounter (statuses as of 03/25/2022) [facility] History of Past illness Narrative* Problem Noted Date Resolved Date Obesity, Class III, BMI >= 40 02/26/2018 Peripheral neuropathy 01/21/2018 08/22/2021 Diabetes mellitus type 2, controlled, without co mplications 05/17/2015 08/23/2020 documented as of this encounter (statuses as of 04/03/2022) [facility] [facility]2019 History of Past illness Narrative* Problem Noted Date Resolved Date Obesity, Class III, BMI >= 40 02/26/2018 Peripheral neuropathy 01/21/2018 08/22/2021 Diabetes mellitus type 2, controlled, without co mplications 05/17/2015 08/23/2020 documented as of this encounter (statuses as of 04/18/2022) [facility] History of Past illness Narrative* Problem Noted Date Resolved Date Obesity, Class III, BMI >= 40 02/26/2018 Peripheral neuropathy 01/21/2018 08/22/2021 Diabetes mellitus type 2, controlled, without co mplications 05/17/2015 08/23/2020 documented as of this encounter (statuses as of 04/21/2022) [facility] History of Past illness Narrative* Problem Noted Date Resolved Date Obesity, Class III, BMI >= 40 02/26/2018 Peripheral neuropathy 01/21/2018 08/22/2021 Diabetes mellitus type 2, controlled, without co mplications 05/17/2015 08/23/2020 documented as of this encounter (statuses as of 05/15/2022) [facility] History of Past illness Narrative* Problem Noted Date Resolved Date Obesity, Class III, BMI >= 40 02/26/2018 Peripheral neuropathy 01/21/2018 08/22/2021 Diabetes mellitus type 2, controlled, without co mplications 05/17/2015 08/23/2020 documented as of this encounter (statuses as of 05/26/2022) [facility] History of Past illness Narrative* Problem Noted Date Resolved Date Obesity, Class III, BMI >= 40 02/26/2018 Peripheral neuropathy 01/21/2018 08/22/2021 Diabetes mellitus type 2, controlled, without co mplications 05/17/2015 08/23/2020 documented as of this encounter (statuses as of 06/12/2022) [facility] History of Past illness Narrative* Problem Noted Date Resolved Date Obesity, Class III, BMI >= 40 02/26/2018 Peripheral neuropathy 01/21/2018 08/22/2021 Diabetes mellitus type 2, controlled, without co mplications 05/17/2015 08/23/2020 documented as of this encounter (statuses as of 07/11/2022) [facility] History of Past illness Narrative* Problem Noted Date Resolved Date Obesity, Class III, BMI >= 40 02/26/2018 Peripheral neuropathy 01/21/2018 08/22/2021 Diabetes mellitus type 2, controlled, without co mplications 05/17/2015 08/23/2020 documented as of this encounter (statuses as of 08/07/2022) [facility] History of Past illness Narrative* Problem Noted [...] of this encounter (statuses as of 09/19/2022) [facility] History of Past illness Narrative* Problem Noted [...] of this encounter (statuses as of 10/02/2022) [facility] History of Past illness Narrative* Problem Noted [...] of this encounter (statuses as of 10/05/2022) [facility] History of Past illness Narrative* Problem Noted [...] of this encounter (statuses as of 10/17/2022) [facility] History of Past illness Narrative* Problem Noted [...] of this encounter (statuses as of 11/03/2022) [facility] History of Past illness Narrative* Problem Noted [...] of this encounter (statuses as of 11/17/2022) [facility] History of Past illness Narrative* Problem Noted [...] of this encounter (statuses as of 11/30/2022) [facility] History of Past illness Narrative* Problem Noted [...] of this encounter (statuses as of 12/13/2022) [facility] History of Past illness Narrative* Problem Noted [...] of this encounter (statuses as of 12/28/2022) [facility] History of Past illness Narrative* Problem Noted [...] of this encounter (statuses as of 01/25/2023) [facility] Diagnosis Encounter for screening mammogram for malignant neoplasm of breast- Primary Other screening mammogram [facility] Diagnosis Controlled type 2 diabetes mellitus without complication, without long-term current use of insulin (HCC)- Primary Vitamin B12 deficiency Other B-complex deficiencies Malabsorption syndrome Unspecified intestinal malabsorption Other vitamin B12 deficiency anemia Fatigue, unspecified type Other iron deficiency anemia Hypothyroidism, acquired Unspecified hypothyroidism Hypertriglyceridemia Pure hyperglyceridemia documented [facility] this [facility] Diagnosis Vitamin B12 deficiency- Primary Other B-complex deficiencies [facility] Diagnosis Vitamin B12 deficiency- Primary Other B-complex deficiencies [facility] Diagnosis Vitamin B12 deficiency- Primary Other B-complex deficiencies [facility] Diagnosis Vitamin B12 deficiency- Primary Other B-complex deficiencies [facility] Diagnosis Vitamin B12 deficiency- Primary Other B-complex deficiencies [facility] Diagnosis Uncontrolled type 2 diabetes mellitus with hyperglycemia (HCC)- Primary Vitamin B12 deficiency Other B-complex deficiencies Controlled type 2 diabetes mellitus without complication, without long-term current use of insulin (HCC) Hypothyroidism, acquired Unspecified hypothyroidism Other vitamin B12 deficiency anemia Iron deficiency Iron deficiency anemia, unspecified Vitamin D deficiency Unspecified vitamin D deficiency [facility] Diagnosis Vitamin B12 deficiency- Primary Other B-complex deficiencies [facility] Diagnosis Controlled type 2 diabetes mellitus [...] Hypertriglyceridemia Pure hyperglyceridemia [facility] Diagnosis Vitamin B12 deficiency- Primary Other B-complex deficiencies [facility] Diagnosis RUQ abdominal pain- Primary Abdominal pain, right upper quadrant Calculus of gallbladder without cholecystitis without obstruction Calculus of gallbladder without mention of cholecystitis or obstruction Fatty liver Other chronic nonalcoholic liver disease [facility]* Diagnosis RUQ abdominal pain Abdominal [...] nonalcoholic liver disease [facility]* Diagnosis Essential hypertension with goal [...] Other postprocedural status [facility] this [facility]* Diagnosis Aftercare following surgery- Primary Encounter for other specified aftercare documented in this encounter [facility] note* Diagnosis Vitamin B12 deficiency- Primary Other B-complex deficiencies documented in this encounter [facility] note* Diagnosis Controlled type 2 diabetes [...] deficiency anemia, unspecified [facility] Diagnosis Other vitamin B12 deficiency anemia- Primary [facility]* Diagnosis Other vitamin B12 deficiency anemia- Primary documented in this encounter [facility] note* Diagnosis Vitamin B12 deficiency- Primary Other B-complex deficiencies documented in this encounter [facility] note* Diagnosis Vitamin B12 deficiency- Primary Other B-complex deficiencies [facility]* Diagnosis Vitamin B12 deficiency- Primary Other B-complex deficiencies [facility] Diagnosis Controlled type 2 diabetes mellitus [...] nonalcoholic liver disease documented in this encounter [facility] note* Diagnosis Vitamin B12 deficiency- Primary Other B-complex deficiencies documented in this encounter [facility] for referral (narrative)* Diagnostic Procedure Only (Routine) - Pending Review Specialty Diagnoses / Procedures Referred By Angela carey Referred To Contact [facility] Diagnoses Encounter for screening mammogram for malignant neoplasm of breast Procedures CAROLINE SCREENING W FLOR SCREENING DIGITAL BREAST TOMOSYNTHESIS BI SCREENING MAMMOGRAPHY BI 2-VIEW BREAST INC Jahaira Pineda, [employer] [address] [place] [address] [facility] [address] [place] [address] Referral ID Status Reason Start Date Expiration Date Visits Requested Visits Authorized [id number] Pending Review Auto-Generat ed Referral 05/18/2021 06/17/2022 1 1 [facility] Diagnostic Procedure Only (Routine) - Pending Review Specialty Diagnoses / Procedures Referred By Angela carey Referred To Contact [facility] Diagnoses Encounter for screening mammogram for malignant neoplasm of breast Procedures CAROLINE SCREENING SCREENING MAMMOGRAPHY BI 2-VIEW BREAST INC CAD Jeff Pearce, [address] [place] [address] [facility] [address] [place] [address] Referral ID Status Reason Start Date Expiration Date Visits Requested Visits Authorized [id number] Pending Review Auto-Generat ed Referral 02/20/2022 03/22/2023 1 1 [facility] Summary Purpose Family History No Family History Records FoundNo Family History Records FoundNo Family History Records Found Advance Directives No Advanced Directives Records FoundDocuments on File 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(s) 04/23/2019 11:29 AM Advance Directive(s) 02/26/2018 8:33 AM Advance Directive(s) 02/22/2018 7:13 PM Documents on File 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(s) 04/23/2019 11:29 AM Advance Directive(s) 02/26/2018 8:33 AM Advance Directive(s) 02/22/2018 7:13 PM Documents on File 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(s) 04/23/2019 11:29 AM Documents on File 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(s) 04/23/2019 11:29 AM [...] Specialty Diagnoses / Procedures Referred By Angela caery Referred To Contact General Surgery Diagnoses RUQ abdominal pain Calculus of gallbladder without cholecystitis without obstruction Fatty liver Procedures CONSULT TO GENERAL SURGERY OFFICE/OUTPATIENT [facility] MDM 60-74 MINUTES Jeff Pearce L, DO [address] [place] [address] Referral ID Status Reason Start Date Expiration Date Visits Requested Visits Authorized [id number] Authorized PCP Requested Referral 03/21/2022 03/21/2023 1 1 Additional Source Comments INFORMATION SOURCE (unrecogn ized section and content) DATE CREATED AUTHOR AUTHOR'S ORGANIZ ATION 04/10/2022 [facility] DATE CREATED AUTHOR AUTHOR'S ORGANIZ ATION 03/01/2023 [facility] Source Comments (unrecognize d section and content) In the event this informatio n is protected by the Federal Confidentiality of Alcohol and Drug Abuse Patient Records regulations: The Federal rules restrict any use of the information to criminally investigate or prosecute any alcohol or drug abuse patient.[facility] the event this information is protected by the Federal Confidentiality of Alcohol and Drug Abuse Patient Records regulations: The Federal rules restrict any use of the information to criminally investigate or prosecute any alcohol or drug abuse patient.[facility] the event this information is protected by the Federal Confidentiality of Alcohol and Drug Abuse Patient Records regulations: The Federal rules restrict any use of the information to criminally investigate or prosecute any alcohol or drug abuse patient.[facility] the event this information is protected by the Federal Confidentiality of Alcohol and Drug Abuse Patient Records regulations: The Federal rules restrict any use of the information to criminally investigate or prosecute any alcohol or drug abuse patient.[facility] the event this information is protected by the Federal Confidentiality of Alcohol and Drug Abuse Patient Records regulations: The Federal rules restrict any use of the information to criminally investigate or prosecute any alcohol or drug abuse patient.[facility] the event this information is protected by the Federal Confidentiality of Alcohol and Drug Abuse Patient Records regulations: The Federal rules restrict any use of the information to criminally investigate or prosecute any alcohol or drug abuse patient.[facility] the event this information is protected by the Federal Confidentiality of Alcohol and Drug Abuse Patient Records regulations: The Federal rules restrict any use of the information to criminally investigate or prosecute any alcohol or drug abuse patient.[facility] the event this information is protected by the Federal Confidentiality of Alcohol and Drug Abuse Patient Records regulations: The Federal rules restrict any use of the information to criminally investigate or prosecute any alcohol or drug abuse patient.[facility] the event this information is protected by the Federal Confidentiality of Alcohol and Drug Abuse Patient Records regulations: The Federal rules restrict any use of the information to criminally investigate or prosecute any alcohol or drug abuse patient.[facility] the event this information is protected by the Federal Confidentiality of Alcohol and Drug Abuse Patient Records regulations: The Federal rules restrict any use of the information to criminally investigate or prosecute any alcohol or drug abuse patient.[facility] the event this information is protected by the Federal Confidentiality of Alcohol and Drug Abuse Patient Records regulations: The Federal rules restrict any use of the information to criminally investigate or prosecute any alcohol or drug abuse patient.[facility] the event this information is protected by the Federal Confidentiality of Alcohol and Drug Abuse Patient Records regulations: The Federal rules restrict any use of the information to criminally investigate or prosecute any alcohol or drug abuse patient.[facility] the event this information is protected by the Federal Confidentiality of Alcohol and Drug Abuse Patient Records regulations: The Federal rules restrict any use of the information to criminally investigate or prosecute any alcohol or drug abuse patient.[facility] the event this information is protected by the Federal Confidentiality of Alcohol and Drug Abuse Patient Records regulations: The Federal rules restrict any use of the information to criminally investigate or prosecute any alcohol or drug abuse patient.[facility] the event this information is protected by the Federal Confidentiality of Alcohol and Drug Abuse Patient Records regulations: The Federal rules restrict any use of the information to criminally investigate or prosecute any alcohol or drug abuse patient.[facility] the event this information is protected by the Federal Confidentiality of Alcohol and Drug Abuse Patient Records regulations: The Federal rules restrict any use of the information to criminally investigate or prosecute any alcohol or drug abuse patient.[facility] the event this information is protected by the Federal Confidentiality of Alcohol and Drug Abuse Patient Records regulations: The Federal rules restrict any use of the information to criminally investigate or prosecute any alcohol or drug abuse patient.[facility] the event this information is protected by the Federal Confidentiality of Alcohol and Drug Abuse Patient Records regulations: The Federal rules restrict any use of the information to criminally investigate or prosecute any alcohol or drug abuse patient.[facility] the event this information is protected by the Federal Confidentiality of Alcohol and Drug Abuse Patient Records regulations: The Federal rules restrict any use of the information to criminally investigate or prosecute any alcohol or drug abuse patient.[facility] the event this information is protected by the Federal Confidentiality of Alcohol and Drug Abuse Patient Records regulations: The Federal rules restrict any use of the information to criminally investigate or prosecute any alcohol or drug abuse patient.[facility] the event this information is protected by the Federal Confidentiality of Alcohol and Drug Abuse Patient Records regulations: The Federal rules restrict any use of the information to criminally investigate or prosecute any alcohol or drug abuse patient.[facility] the event this information is protected by the Federal Confidentiality of Alcohol and Drug Abuse Patient Records regulations: The Federal rules restrict any use of the information to criminally investigate or prosecute any alcohol or drug abuse patient.[facility] the event this information is protected by the Federal Confidentiality of Alcohol and Drug Abuse Patient Records regulations: The Federal rules restrict any use of the information to criminally investigate or prosecute any alcohol or drug abuse patient.[facility] the event this information is protected by the Federal Confidentiality of Alcohol and Drug Abuse Patient Records regulations: The Federal rules restrict any use of the information to criminally investigate or prosecute any alcohol or drug abuse patient.[facility] the event this information is protected by the Federal Confidentiality of Alcohol and Drug Abuse Patient Records regulations: The Federal rules restrict any use of the information to criminally investigate or prosecute any alcohol or drug abuse patient.[facility] the event this information is protected by the Federal Confidentiality of Alcohol and Drug Abuse Patient Records regulations: The Federal rules restrict any use of the information to criminally investigate or prosecute any alcohol or drug abuse patient.[facility] the event this information is protected by the Federal Confidentiality of Alcohol and Drug Abuse Patient Records regulations: The Federal rules restrict any use of the information to criminally investigate or prosecute any alcohol or drug abuse patient.[facility] the event this information is protected by the Federal Confidentiality of Alcohol and Drug Abuse Patient Records regulations: The Federal rules restrict any use of the information to criminally investigate or prosecute any alcohol or drug abuse patient.[facility] the event this information is protected by the Federal Confidentiality of Alcohol and Drug Abuse Patient Records regulations: The Federal rules restrict any use of the information to criminally investigate or prosecute any alcohol or drug abuse patient.[facility] the event this information is protected by the Federal Confidentiality of Alcohol and Drug Abuse Patient Records regulations: The Federal rules restrict any use of the information to criminally investigate or prosecute any alcohol or drug abuse patient.[facility] the event this information is protected by the Federal Confidentiality of Alcohol and Drug Abuse Patient Records regulations: The Federal rules restrict any use of the information to criminally investigate or prosecute any alcohol or drug abuse patient.[facility] the event this information is protected by the Federal Confidentiality of Alcohol and Drug Abuse Patient Records regulations: The Federal rules restrict any use of the information to criminally investigate or prosecute any alcohol or drug abuse patient.[facility] the event this information is protected by the Federal Confidentiality of Alcohol and Drug Abuse Patient Records regulations: The Federal rules restrict any use of the information to criminally investigate or prosecute any alcohol or drug abuse patient.[facility] Reason for Visit (unrecogniz ed section and [...] MDM 60-74 MINUTES Jeff Pearce L, DO [address] [place] [address] Referral ID Status Reason Start Date Expiration Date V isits Requested Visits Authorized [id number] Closed PCP Requested Referral 03/21/2022 03/21/2023 1 1 Reason Comments Consult Reason Comments Surgical Follow Up Lap magdalene post op Specialty Diagnoses / Procedures Referred By Contac t Referred To Contact General Surgery / GENERAL SURGERY Diagnoses post op lap mgadalene, wanted sooner appt Procedures OFFICE/OUTPATIENT ESTABLISHED HIGH MDM 40-54 MIN EST DDI PATIENT Amado Campos PA-C [address] [place] [address] Amado Campos PA-C [address] [place] [address] Referral ID Status Reason Start Date Expiration Date Visits Re quested Visits Authorized [id number] Closed 04/10/2022 02/11/2023 1 1 Reason Comments Post Op Follow Up 04/10/22 [facility] Teams (unrecognized sec tion and content) Assembly Instructions Writer Relationship Specialty Start Date End Date Jeff Pearce, DO [address] [place] [address] PCP - General Family Practice 09/28/15 Assembly Instructions Writer Relationship Specialty Start Date End Date Jeff Pearce DO [address] [place] [address] PCP - General Family Practice 09/28/15 Assembly Instructions Writer Relationship Specialty Start Date End Date Jeff Pearce DO [address] [place] [address] PCP - General Family Practice 09/28/15 Assembly Instructions Writer Relationship Specialty Start Date End Date Jeff Pearce DO [address] [place] [address] PCP - General Family Practice 09/28/15 Assembly Instructions Writer Relationship Specialty Start Date End Date Jeff Pearce DO [address] [place] [address] PCP - General Family Practice 09/28/15 Assembly Instructions Writer Relationship Specialty Start Date End Date Jeff Pearce DO [address] [place] [address] PCP - General Family Practice 09/28/15 Assembly Instructions Writer Relationship Specialty Start Date End Date Jeff Pearce DO [address] [facility] [place] [address] PCP - General Family Practice 09/28/15 Assembly Instructions Writer Relationship Specialty Start Date End Date Jeff Pearce, DO [address] [facility] [place] [address] PCP - General Family Medicine 09/28/15 Assembly Instructions Writer Relationship Specialty Start Date End Date Jeff Pearce, DO [address] [place] [address] PCP - General Family Medicine 09/28/15 Assembly Instructions Writer Relationship Specialty Start Date End Date Jeff Pearce, DO [address] [place] [address] PCP - General Family Medicine 09/28/15 Assembly Instructions Writer Relationship Specialty Start Date End Date Jeff Pearce, DO [address] [place] [address] PCP - General Family Medicine 09/28/15 Assembly Instructions Writer Relationship Specialty Start Date End Date Jeff Pearce, DO [address] [place] [address] PCP - General Family Medicine 09/28/15 Assembly Instructions Writer Relationship Specialty Start Date End Date Jeff Pearce, DO [address] [place] [address] PCP - General Family Medicine 09/28/15 Assembly Instructions Writer Relationship Specialty Start Date End Date Jeff Pearce, DO [address] [place] [address] PCP - General Family Medicine 09/28/15 Assembly Instructions Writer Relationship Specialty Start Date End Date Jeff Pearce, DO [address] [facility] [place] [address] PCP - General Family Medicine 09/28/15 Assembly Instructions Writer Relationship Specialty Start Date End Date Jeff Pearce, DO [address] [place] [address] PCP - General Family Medicine 09/28/15 Assembly Instructions Writer Relationship Specialty Start Date End Date Jeff Pearce DO [address] [place] [address] PCP - General Family Medicine 09/28/15 Assembly Instructions Writer Relationship Specialty Start Date End Date Jeff Pearce DO [address] [facility] [place] [address] PCP - General Family Medicine 09/28/15 Assembly Instructions Writer Relationship Specialty Start Date End Date Jeff Pearce DO [address] [facility] [place] [address] PCP - General Family Medicine 09/28/15 Assembly Instructions Writer Relationship Specialty Start Date End Date Jeff Pearce DO [address] [facility] [place] [address] PCP - General Family Medicine 09/28/15 Assembly Instructions Writer Relationship Specialty Start Date End Date Jeff Pearce DO [address] [facility] [place] [address] PCP - General Family Medicine 09/28/15 Assembly Instructions Writer Relationship Specialty Start Date End Date Jeff Pearce DO [address] [facility] [place] [address] PCP - General Family Medicine 09/28/15 Assembly Instructions Writer Relationship Specialty Start Date End Date Jeff Pearce DO [address] [facility] [place] [address] PCP - General Family Medicine 09/28/15 Assembly Instructions Writer Relationship Specialty Start Date End Date Jeff Pearce DO [address] [facility] [place] [address] PCP - General Family Medicine 09/28/15 Assembly Instructions Writer Relationship Specialty Start Date End Date Jeff Pearce DO [address] [facility] [place] [address] PCP - General Family Medicine 09/28/15 Assembly Instructions Writer Relationship Specialty Start Date End Date Jeff Pearce DO [address] [place] [address] PCP - General Family Medicine 09/28/15 FOR [...] BE BASED ON THE PRIMARY CLINICAL RECORDS. [employer] [facility]. provides no warranty or guarantee of the accuracy or completeness of information in this document.
== END | disposition home or self-care (01) ==
LOC: PAVLAB 15:03
PROVIDERS: PCP Student in an Organized Health Care Education/Training Program; Referring Provider Surgery; Visit Provider Surgery
DX: K65.1 Peritoneal abscess (principal)
CPT/HCPCS: 36415; 85025

== ENCOUNTER → 2023-04-04 | Outpatient (CLI) | payer MEDICARE, SELFPAY ==
--- NOTE | 2023-04-04 14:50 | CT_ITS ---
STUDY: CT CHEST WITH CONTRAST REASON FOR EXAM: Female, 77 years old. Completion of cancer staging -- Iv contrast RADIATION DOSAGE (If Supplied By Facility): CTDIvol = ( 10.80 ) mGy, DLP = ( 435.24 ) mGycm TECHNIQUE: Transaxial imaging was performed following intravenous administration of IV 100mL Isovue-300. Multiplanar coronal and sagittal images were reformatted. Individualized dose optimization techniques were used for this CT. COMPARISON: Comparison is made with prior chest radiograph dated March 07, 2023. FINDINGS: CHEST Mild degree of increased markings at the lung bases slightly more prominent at the right lung base suggestive of bibasilar atelectasis. There is no demonstrated pleural abnormality. Normal heart and pericardium. Normal mediastinum. Normal hilar regions. Normal unenhanced pulmonary arteries. Minimal atherosclerotic plaque formation of the aortic arch. Normal osseous structures. Diffuse fatty infiltration of the liver. Status post cholecystectomy. Minimal enlargement of the left adrenal gland. CT/Chest WITH Contrast IMPRESSION: Mild degree of increased markings at the lung bases slightly more prominent on the right side suggestive of a linear atelectasis. Electronically Signed: Antonio Matamoros MD at 15:21 EST ,
--- OUTSIDE RECORDS SUMMARY | 2023-04-04 18:58 | XMS RPT_ITS | CCD ---
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 Name Role Phone TIFFANY RONQUILLO Admitting Unavailable TIFFANY RONQUILLO Attending Unavailable Pearce DO Jeff Cedric Primary Care Provider Pearce DOJeff Primary Care Provider Pearce DOJeff Primary Care Provider Pearce DOJeff Primary Care Provider RODRIGUEZ LOUIE Admitting Unavailable RODRIGUEZ LOUIE Attending Unavailable PEARCE, JEFF L Primary Care Unavailable Tiffany Evangelista RN Unavailable Unavailable PEARCE, JEFF L Primary Care Unavailable [...] Unavailable PEARCE, JEFF L Primary Care Unavailable EPARCE, JEFF L Primary Care Unavailable PEARCE, JEFF L Referring Unavailable RODRIGUEZ LOUIE Attending Unavailable PEARCE, JEFF L Primary Care Unavailable PEARCE, JEFF L Attending Unavailable PEARCE, JEFF L Primary Care Unavailable PEARCE, JEFF L Referring Unavailable PEARCE, JEFF L Primary Care Unavailable PEARCE, JEFF L Primary Care Unavailable CAREN GREENBERG Attending Unavailable PEARCE, JEFF L Primary Care Unavailable PEARCE, JEFF L Primary Care Unavailable SHAHRIAR RANDALL Referring Unavailable PEARCE, JEFF L Primary Care Unavailable Beth, Amado Referring Unavailable Beth, Amado Attending Unavailable JEFF PEARCE L Primary Care Unavailable Beth, Amado Attending Unavailable JEFF PEARCE L Primary Care Unavailable PEARCEJEFF L Primary Care Unavailable PEARCE, JEFF L Referring Unavailable PEARCEJEFF L Attending Unavailable PEARCEJEFF L Primary Care Unavailable PEARCEJEFF L Primary Care Unavailable PEARCEJEFF L Primary Care Unavailable JEFF PEARCE L Primary Care Unavailable PEARCEJEFF L Primary Care Unavailable PEARCEJEFF L Primary Care Unavailable PEARCEJEFF L Primary Care Unavailable PEARCEJEFF L Primary Care Unavailable JEFF PEARCE L Attending Unavailable PEARCEJEFF L Primary Care Unavailable PEARCEJEFF L Primary Care Unavailable Allergies Allergy Classification Reported Allergen(s) Allergy Type Date of Onset Reaction(s) Facility (20 sources) diphenhydrAMINE ; Translations: [DIPHENHYDRAMIN E HCL] Drug Allergy 6 Swelling [facility] Repository (20 sources) Hmg-Coa Reductase Inhibitors (Statins); Translations: [XURXGBH-OQN-MG A REDUCTASE INHIBITORS] Propensity to adverse reactions to drug (disorder) 6 Contraindicatio n-Medical Surgical [facility] Repository (20 sources) Penicillins; Translations: [PENICILLINS] Propensity to adverse reactions to drug (disorder) 6 Shortness of Breath [facility] Repository Medications Current Medications Medication Drug Class(es) [...] [Essential (primary) hypertension] Onset: 05-17-2015 05-17-2015 Chronic Nausea and vomiting (1 source) Nausea; Translations: [Nausea] 03-21-2023 Episodic Nutritional deficiencies (20 sources) Vitamin D deficiency; Translations: [Vitamin D deficiency, unspecified] Onset: 02-19-2019 02-19-2019 Chronic Nutritional deficiencies (20 sources) Cobalamin deficiency; Translations: [Deficiency of other specified B group vitamins] Onset: 02-20-2020 02-20-2020 Episodic Other aftercare (1 source) Surgical follow-up; Translations: [...] abnormalities] Onset: 02-26-2018 Episodic Other liver diseases (20 sources) Steatosis of liver; Translations: [Fatty (change [...] mammogram for malignant neoplasm of breast] Episodic Residual codes; unclassified (1 source) History of colectomy; Translations: [Acquired absence of other specified parts of digestive tract] 03-19-2023 Episodic Spondylosis; intervertebral disc disorders; other back problems (20 sources) Spondylosis; Translations: [Spondylosis, unspecified] Onset: 09-06-2020 09-06-2020 Chronic Thyroid disorders (20 sources) Acquired hypothyroidism; Translations: [Hypothyroidism, unspecified] Onset: 10-06-2016 10-06-2016 Chronic Past or Other Problems Problem Classification Problem Date Documented Da te Episodic/Chronic Abdominal pain (20 sources) Right upper quadrant pain; Translations: [Right upper quadrant pain] Onset: 03-24-2022 Episodic Biliary tract disease (20 sources) Cholelithiasis [...] tissue, and skin] Onset: 08-25-2020 08-25-2020 Episodic Other aftercare (1 source) Encounter for other specified surgical aftercare; Translations: [Aftercare following surgery] Onset: 04-13-2022 Episodic Other connective tissue disease (20 sources) Tendinitis of right rotator cuff; Translations: [Other shoulder lesions, right shoulder] Onset: 10-16-2017 10-16-2017 Episodic Other gastrointestinal disorders (20 sources) Occult blood in stools; Translations: [Other fecal abnormalities] Onset: 01-21-2018 01-21-2018 Episodic Other liver diseases (15 sources) Alkaline phosphatase raised; Translations: [Abnormal levels [...] Vital Sign Value Performing Clinician Bird burroughs 03-19-2023 10:38-0500 Body weight 76.3 kg Caren Greenberg APRN.CNP Work Phone: [facility] 03-19-2023 10:38-0500 Diastolic blood pressure 64 mm[Hg] Caren Yari OIL PIPELINE OPERATOR.ACCOUNT OFFICER Work Phone: [facility] 03-19-2023 10:38-0500 Heart rate 85 /min Caren Yari OIL PIPELINE OPERATOR.ACCOUNT OFFICER Work Phone: [facility] 03-19-2023 10:38-0500 Respiratory rate 16 /min Caren Yari OIL PIPELINE OPERATOR.ACCOUNT OFFICER Work Phone: [facility] 03-19-2023 10:38-0500 SaO2% (BldA) [Mass fraction] 95 % Caren Yari OIL PIPELINE OPERATOR.ACCOUNT OFFICER Work Phone: [facility] 03-19-2023 10:38-0500 Systolic blood pressure 110 mm[Hg] Caren Yari OIL PIPELINE OPERATOR.ACCOUNT OFFICER Work Phone: [facility] 12-08-2022 10:00-0400 Body temperature 96.4 [degF] Jeff Pearce DO Work Phone: [facility] 12-08-2022 10:00-0400 Body weight 82.56 kg Jeff Pearce DO Work Phone: [facility] 12-08-2022 10:00-0400 Diastolic blood pressure 60 mm[Hg] Jeff Pearce DO Work Phone: [facility] 12-08-2022 10:00-0400 Heart rate 88 /min Jeff Pearce DO Work Phone: [facility] 12-08-2022 10:00-0400 Respiratory rate 16 /min Jeff Pearce DO Work Phone: [facility] 12-08-2022 10:00-0400 Systolic blood pressure 116 mm[Hg] Jeff Pearce DO Work Phone: [facility] 05-24-2022 16:10-0400 Body temperature 97.39 [degF] Jeff Pearce DO Work Phone: [facility] 05-24-2022 16:10-0400 Body weight 80.29 kg Jeff Pearce DO Work Phone: [facility] 05-24-2022 16:10-0400 Diastolic blood pressure 78 mm[Hg] Jeff Pearce DO Work Phone: [facility] 05-24-2022 16:10-0400 Heart rate 80 /min Jeff Pearce DO Work Phone: [facility] 05-24-2022 16:10-0400 Respiratory rate 16 /min Jeff Pearce DO Work Phone: [facility] 05-24-2022 16:10-0400 Systolic blood pressure 150 mm[Hg] Jeff Pearce DO Work Phone: [facility] 04-13-2022 09:01-0500 Body temperature 97.59 [degF] Amado Beth PA-C Work Phone: [facility] 04-13-2022 09:01-0500 Body weight 82.64 kg Amado Beth PA-C Work Phone: [facility] 04-13-2022 09:01-0500 Diastolic blood pressure 66 mm[Hg] Amado [place] PA-C Work Phone: [facility] 04-13-2022 09:01-0500 Heart rate 118 /min Amado [place] PA-C Work Phone: [facility] 04-13-2022 09:01-0500 SaO2% (BldA) [Mass fraction] 96 % Amado [place] PA-C Work Phone: [facility] 04-13-2022 09:01-0500 Systolic blood pressure 138 mm[Hg] Amado Beth PA-C Work Phone: [facility] 04-10-2022 13:38-0500 Body height 160 cm Amado Beth PA-C Work Phone: [facility] 04-10-2022 13:38-0500 Body temperature 97.2 [degF] Amado [place] PA-C Work Phone: [facility] 04-10-2022 13:38-0500 Body weight 83.92 kg Amado Beth PA-C Work Phone: [facility] 04-10-2022 13:38-0500 Diastolic blood pressure 58 mm[Hg] Amado Beth PA-C Work Phone: [facility] 04-10-2022 13:38-0500 Heart rate 117 /min Amado Beth PA-C Work Phone: [facility] 04-10-2022 13:38-0500 SaO2% (BldA) [Mass fraction] 93 % Amado Beth PA-C Work Phone: [facility] 04-10-2022 13:38-0500 Systolic blood pressure 118 mm[Hg] Amado Beth PA-C Work Phone: [facility] 04-03-2022 11:11-0500 Body height 160 cm Pacc 1 Work Phone: [facility] 04-03-2022 11:11-0500 Body temperature 97.59 [degF] Pacc 1 Work Phone: [facility] 04-03-2022 11:11-0500 Body weight 83.92 kg Pacc 1 Work Phone: [facility] 04-03-2022 11:11-0500 Diastolic blood pressure 70 mm[Hg] Pacc 1 Work Phone: [facility] 04-03-2022 11:11-0500 Heart rate 91 /min Pacc 1 Work Phone: [facility] 04-03-2022 11:11-0500 Respiratory rate 14 /min Pacc 1 Work Phone: [facility] 04-03-2022 11:11-0500 SaO2% (BldA) [Mass fraction] 97 % Pacc 1 Work Phone: [facility] 04-03-2022 11:11-0500 Systolic blood pressure 118 mm[Hg] Pacc 1 Work Phone: [facility] 03-24-2022 10:27-0500 Body height 160 cm Rodriguez Louie MD Work Phone: [facility] 03-24-2022 10:27-0500 Body temperature 96.8 [degF] Rodriguez Louie MD Work Phone: [facility] 03-24-2022 10:27-0500 Body weight 84.37 kg Rodriguez Louie MD Work Phone: [facility] 03-24-2022 10:27-0500 Diastolic blood pressure 64 mm[Hg] Rodriguez Louie MD Work Phone: [facility] 03-24-2022 10:27-0500 Heart rate 113 /min Rodriguez Louie MD Work Phone: [facility] 03-24-2022 10:27-0500 SaO2% (BldA) [Mass fraction] 98 % Rodriguez Louie MD Work Phone: [facility] 03-24-2022 10:27-0500 Systolic blood pressure 124 mm[Hg] Rodriguez Louie MD Work Phone: [facility] 02-20-2022 09:30-0500 Body temperature 97.11 [degF] Jeff Pearce DO Work Phone: [facility] 02-20-2022 09:30-0500 Body weight 86.18 kg Jeff Pearce DO Work Phone: [facility] 02-20-2022 09:30-0500 Diastolic blood pressure 60 mm[Hg] Jeff Pearce DO Work Phone: [facility] 02-20-2022 09:30-0500 Heart rate 80 /min Jeff Pearce DO Work Phone: [facility] 02-20-2022 09:30-0500 Respiratory rate 16 /min Jeff Pearce DO Work Phone: [facility] 02-20-2022 09:30-0500 Systolic blood pressure 124 mm[Hg] Jeff Pearce DO Work Phone: [facility] 11-15-2021 09:11-0400 Body temperature 96.3 [degF] Jeff Pearce DO Work Phone: [facility] 11-15-2021 09:11-0400 Body weight 87.54 kg Jeff Pearce DO Work Phone: [facility] 11-15-2021 09:11-0400 Diastolic blood pressure 60 mm[Hg] Jeff Pearce DO Work Phone: [facility] 11-15-2021 09:11-0400 Heart rate 88 /min Jeff Pearce DO Work Phone: [facility] 11-15-2021 09:11-0400 Respiratory rate 16 /min Jeff Pearce DO Work Phone: [facility] 11-15-2021 09:11-0400 Systolic blood pressure 124 mm[Hg] Jeff Pearce DO Work Phone: [facility] 05-30-2021 09:15-0400 Body temperature 97 [degF] Jeff Pearce DO Work Phone: [facility] 05-30-2021 09:15-0400 Body weight 92.08 kg Jeff Pearce DO Work Phone: [facility] 05-30-2021 09:15-0400 Diastolic blood pressure 70 mm[Hg] Jeff Pearce DO Work Phone: [facility] 05-30-2021 09:15-0400 Heart rate 80 /min Jeff Pearce DO Work Phone: [facility] 05-30-2021 09:15-0400 Respiratory rate 20 /min Jeff Pearce DO Work Phone: [facility] 05-30-2021 09:15-0400 Systolic blood pressure 110 mm[Hg] Jeff Pearce DO Work Phone: [facility] Encounters Encounter Date Encounter Type Care Provider Facility Start: 04-04-2023 End: 04-04-2023 Nursing evaluation of patient and report Mi [...] Activity Detail Author Start: 02-27-2028 Colonoscopy COLONOSCOPY [facility] Start: 02-27-2028 COLORECTAL CANCER SCREENING COLORECTAL CANCER SCREENING [facility] Start: 02-27-2028 Screening for malign ant neoplasm of colon [facility] Start: 03-19-2024 Annual PCP Team Key Person beba Disease Visit Annual PCP Team Chronic Disease Visit [facility] Start: 03-19-2024 BP Controlled (<130/80) BP Controlle d (<130/80) [facility] Start: 12-09-2023 Annual PCP Team Key Person beba Disease Visit Annual PCP Team Chronic Disease Visit [facility] Start: 12-09-2023 BP Controlled (<130/80) BP Controlle d (<130/80) [facility] Start: 12-09-2023 Covid-19 Vaccine ( season) Covid-19 Vaccine ( season) [facility] Immunizations Immunization Date Immunization Notes Care Provider Luiz mcdonald 08-25-2020 COVID-19 vaccine (JONATHAN) Jeff Pearce DO Work Phone: [facility] 01-21-2018 influenza virus vacc ine, unspecified formulation Mi Nurse Work Phone: [facility] 05-16-2014 pneumococcal polysaccharide vaccine, 23 valent Jeff Pearce DO Work Phone: [facility] 05-16-2010 tetanus toxoid, redu mervat diphtheria toxoid, and acellular pertussis vaccine, adsorbed Jfef Kentrison DO Work Phone: [facility] Payers Date Payer Category Payer Medicare AETNA MEDICARE A ETNA MEDICARE O [id number] 2021-Present [phone] [address] [place] [address] O [id number] 2021 Medicare AETNA MEDICARE A ETNA MEDICARE O [id number] 2021-Present [phone] [address] [place] [address] [facility] [place] [id number] 2021 Medicare [id number] Social History Date Type Detail Facility Start: 05-17-2015 End: 02-20-2022 Tobacco smoking status NHIS Never smoked tobacco [facility] Work Phone: Start: 05-17-2015 End: 02-20-2022 Tobacco use and exposure Smokeless tobacco non-user [facility] Work Phone: Start: 02-22-2021 End: 03-19-2023 Alcohol intake Current non-drinker of alcohol (finding) [facility] Start: 1945 Sex Assigned At Not on file C [facility] Start: 05-20-2021 End: 11-15-2021 Exposure to SARS-CoV-2 (event) Not sure [facility] Work Phone: Start: 07-11-2022 End: 09-05-2022 History of Social function [facility] Work Phone: Start: 07-11-2022 End: 09-05-2022 Tobacco use panel [facility] Work Phone: Adult Depression Screening Assessment 0 [facility] Work Phone: Medical Equipment Procedure Code Equipment Code Equipment Origin al Text Equipment Identifier Dates Start: 04-21-2019 End: 12-08-2022 Clinical Notes 02-26-2018 to 04-04-2023 Hi Edmond LPN - 04/04/2023 9:36 AM Hi Werner LPN - 03/22/2023 10:07 AM Caren Muller APRN.BLAYNE - 03/19/2023 10:49 AM Tiffany Carballo RN - 03/15/2023 12:02 PM EST Note Date & Type Note [facility] 04-04-2023 History of Present illness Narrative Patient presents for B-12 injection. Denies any problems at this time. Patient instructed on any SE of medication, verbalized understanding and agreed to proceed with treatment. Tolerated injection well. Hi Edmond LPN documented in this encounter [facility] 03-22-2023 Note HNO ID: [id number] Author: HI EDMOND LPN Service: ? Author Type: LICENSED NURSE Type: Progress Notes Filed: 03/22/2023 10:21 Note Text: Patient presents for B-12 injection. Denies any problems at this time. Patient instructed on any SE of medication, verbalized understanding and agreed to proceed with treatment. Tolerated injection well. Hi Edmond LPN [facility] 03-22-2023 History of Present illness Narrative Patient presents for B-12 injection. Denies any problems at this time. Patient instructed on any SE of medication, verbalized understanding and agreed to proceed with treatment. Tolerated injection well. Hi Edmond LPN documented in this encounter [facility] 03-19-2023 Note HNO ID: [id number] Author: CAREN GREENBERG APRN.BLAYNE Service: ? Author Type: Nurse Practitioner Type: Progress Notes Filed: 03/21/2023 17:54 Note Text: Transitional Care Management Progress Note The patients TCM visit was performed within the 14 days of discharge. Patient's Date of discharge: 03/11/2023 Date of initial coordinator contact after discharge: NA Discharge diagnosis: peritoneal abscess Medication review completed Yes Caren Greenberg APRN.ACCOUNT OFFICER Provider Documentation: In follow-up of hospitalization, Amado K Tobias is a 77 year old female with the chief complaint of hospital follow up peritoneal abscess. I have reviewed the patient?s last hospital course including diagnostic testing performed during this hospitalization, their discharge medications, and my assessment and plan with the patient and any family members present at today?s visit. HPI: Currently- Improving overall. Yesterday was very nauseated. Appetite is so-so. Eating small amounts-eating applesauce, yogurt, crackers. Wasn't nauseated in the hospital but has been since she came home. Wasn't given anything for nausea but thinks she may have some at home. Pain overall improving. Does not want to take any oxycodone anymore. Has been taking iron pills since she was 14. Had appendix and 14 inches of colon removed. Is not in the lymph nodes. Is waiting on her results of the testing from the mass removal but told this is cancer. Sees oncologist on Sunday-[address] Singh through [facility]. PAST MEDICAL HISTORY: Reviewed and updated ALLERGIES: Reviewed and updated MEDICATIONS: Reviewed and updated SOCIAL HISTORY: Reviewed and updated FAMILY HISTORY: Reviewed and updated REVIEW OF SYSTEMS: All other systems reviewed and negative, other than HPI. PHYSICAL EXAMINATION BP 110/64 Pulse 85 Resp 16 Wt 168 lb 3.2 oz (76.3kg) SpO2 95% General appearance: well appearing, alert, in no acute distress, and well-hydrated, well nourished, motor and sensory appear to be normal Lungs: clear to auscultation no wheezing or rhonchi Heart: RRR without murmur, gallop, or rubs. No ectopy Abdomen: midline incision with multiple sb, well approximated, no drainage Extremities: No deformities, edema, skin discoloration, clubbing or cyanosis. Good capillary refill. , Extremities normal. No deformities, edema, or skin discoloration. Good capillary refill. 1. I have reviewed the patient record including associated test results during the last hospitalization Yes 2. I have reviewed Lab test Yes 3. I have reviewed Radiology test Yes 4. I reviewed assessment/plan with the patient/family member Yes ASSESSMENT/PLAN: 1. 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 Singh, oncology. 2. S/P colectomy - ICD9: V45.89, ICD10: Z90.49 Continue to follow with Dr. Singh, oncology. 3. Nausea - ICD9: 787.02, ICD10: R11.0 - ONDANSETRON 4 MG DISINTEGRATING TABLET Caren Greenberg APRN.CNP March 19, 2023 10:50 AM [facility] 03-19-2023 History of Present illness Narrative Transitional Care Management Progress Note The patients TCM visit was performed within the 14 days of discharge. Patient's Date of discharge: 03/11/2023 Date of initial coordinator contact after discharge: NA Discharge diagnosis: peritoneal abscess Medication review completed Yes Caren Greenberg APRN.CNP Provider Documentation: In follow-up of hospitalization, Amado Queen is a 77 year old female with the chief complaint of hospital follow up peritoneal abscess. I have reviewed the patient s last hospital course including diagnostic testing performed during this hospitalization, their discharge medications, and my assessment and plan with the patient and any family members present at today s visit. HPI: Currently- Improving overall. Yesterday was very nauseated. Appetite is so-so. Eating small amounts-eating applesauce, yogurt, crackers. Wasn't nauseated in the hospital but has been since she came home. Wasn't given anything for nausea but thinks she may have some at home. Pain overall improving. Does not want to take any oxycodone anymore. Has been taking iron pills since she was 14. Had appendix and 14 inches of colon removed. Is not in the lymph nodes. Is waiting on her results of the testing from the mass removal but told this is cancer. Sees oncologist on Sunday-[address] Snigh through [facility]. PAST MEDICAL HISTORY: Reviewed and updated ALLERGIES: Reviewed and updated MEDICATIONS: Reviewed and updated SOCIAL HISTORY: Reviewed and updated FAMILY HISTORY: Reviewed and updated REVIEW OF SYSTEMS: All other systems reviewed and negative, other than HPI. PHYSICAL EXAMINATION BP 110/64 Pulse 85 Resp 16 Wt 168 lb 3.2 oz (76.3kg) SpO2 95% General appearance: well appearing, alert, in no acute distress, and well-hydrated, well nourished, motor and sensory appear to be normal Lungs: clear to auscultation no wheezing or rhonchi Heart: RRR without murmur, gallop, or rubs. No ectopy Abdomen: midline incision with multiple sb, well approximated, no drainage Extremities: No deformities, edema, skin discoloration, clubbing or cyanosis. Good capillary refill. , Extremities normal. No deformities, edema, or skin discoloration. Good capillary refill. 1. I have reviewed the patient record including associated test results during the last hospitalization Yes 2. I have reviewed Lab test Yes 3. I have reviewed Radiology test Yes 4. I reviewed assessment/plan with the patient/family member Yes ASSESSMENT/PLAN: 1. 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 Singh, oncology. 2. S/P colectomy - ICD9: V45.89, ICD10: Z90.49 Continue to follow with Dr. Singh, oncology. 3. Nausea - ICD9: 787.02, ICD10: R11.0 - ONDANSETRON 4 MG DISINTEGRATING TABLET Caren Greenberg APRN.CNP March 19, 2023 10:50 AM documented in this encounter [facility] 03-15-2023 Note HNO ID: [id number] Author: TIFFANY EVANGELISTA RN Service: ? Author Type: Registered Nurse Type: Progress Notes Filed: 03/15/2023 13:02 Note Text: TCM Home Visit Referral Source of Stratification: [facility] Hospital Admission Status: Discharged Readmission Risk Score: N/A CHRISTIAN Score: N/A Patient meets program referral criteria: No Patient does not qualify for High Risk TCM Home Visit program due to: Discharged home, does not meet program criteria Tiffany Evangelista RN March 15, 2023 12:02 PM TRANSITIONAL CARE MANAGEMENT (TCM) COMMUNITY MONITORING PROGRAM Provider Action/FYI: Pt states she is feeling better Denies CP or acute pain, SOB, N/V, fever or chills Denies swelling, redness or drainage from surgical sites Denies surgical pain, hasn't had to take oxycodone for a couple days Denies new or worsening symptoms Voiding without difficulty BM 2/ Appetite is improving, eating and hydrating Has appointment with surgeon today Denies questions or concerns at this time Upcoming appointments PCP 2/5 Copied from Care Everywhere [facility] 03/05-03/11 Retrocecal abscess, Right lower quadrant abdominal pain Hospital Course: Patient was admitted with right-sided abdominal pain. CT revealed fluid collection on the right and possible perforated cecal mass. Patient was taken for surgery and she had a right hemicolectomy. There was a perforated mass withabscess. Drain was left in place and patient was admitted with broad-spectrum antibiotics. Once she started passing flatus she was slowly advanced to clear liquids and advanced on her diet to regular. Once tolerating regular diet and having bowel movement her drain was removed and she will be sent home in stable condition. She will be sent home on Cipro and follow-up later this week for staple removal and recheck hemoglobin. Ciprofloxacin Hcl (Cipro) 500 mg tablet take 1 tablet by mouth twice a day MetroNIDAZOLE (FLAGYL) 500 mg tablet take 1 tablet by mouth every 8 hours for 7 days OxyCODONE IR (ROXICODONE) 5 mg immediate release tablet TAKE 1 TABLET BY MOUTH EVERY 6 HOURS NEEDED NEEDED FOR PAIN SCORE 6-10 FOR 5 DAYS SUMMARY: Discharge Network Status: [id number] (OON) Discharge Pt discharged from [facility] on 03/11/23. Admitted for: Right lower quadrant abdominal pain, retrocecal abscess, right hemicolectomy Contact made with patient: Yes Hi my name is Tiffany Evangelista RN and I am calling from the [facility] on behalf of your PCP, Jeff Pearce, DO I understand you were recently in the hospital so I am calling to check in with you to ensure you are feeling well now that you're home. May I ask you a few questions related to your hospital stay and well-being? Yes Contact with patient post discharge, spoke to patient. Patient identified by name and . Do you feel your health is BETTER, WORSE, or the SAME since leaving the hospital? Better ACTION TAKEN: Patient indicated symptoms are better or same, no action required. Continue outreach. MEDICATIONS: Many patients have questions or concerns about their medications once they are home. Do you have any questions about taking your medications or which medication you should be on? No Do you need any medication refills at this time, including any of the medications you might take only when needed? No ACTION TAKEN: No action required For RNs or Pharmacy completing outreach ONLY, was a medication review completed? No Partial medication review completed: new medications added per patient preference. SOCIAL: We would like to make sure you have what you need so that your basics needs are met - including your personal safety, food, housing and medications. Would you like to speak with a social work steam table associate to help give you support for any of these needs? No It can be normal to feel anxious or down during a time like this. Would you like to talk to a mental health professional about how you have been feeling? No ACTION TAKEN: No action taken DISCHARGE INTRUCTIONS: Your discharge instructions / After Visit Summary (AVS) are important in guiding you through the recovery process. Do you have any questions related to your discharge instructions? No Do you have all the necessary equipment and supplies at home? No ACTION TAKEN: No action required I would like to help you schedule a hospital follow-up virtual or telephone visit with your PCP. This is a great way for you to connect with your provider to ensure you have safely transitioned home. If you are agreeable, I will send your request to a fashion styling intern who will contact and assist you with that appointment. This will give you an opportunity to ask any questions or address any concerns you may have with your PCP. Inform the patient that if they have any questions or concerns prior to that appointment, to call their PCP's office right away. ACTION TAKE (more content not included)... [facility] 03-15-2023 Note [place] Out[place] [place] AMADO QUEEN ([id number]) 1945 F Date Time Provider Department 03/15/23 TIFFANY EVANGELISTA During your visit today, we recorded the following information about you: Tiffany Evangelista RN 03/15/2023 1:02 PM Signed [facility] Home Visit Referral Source of Stratification: [facility] Hospital Admission Status: Discharged Readmission Risk Score: N/A CHRISTIAN Score: N/A Patient meets program referral criteria: No Patient does not qualify for High Risk TCM Home Visit program due to: Discharged home, does not meet program criteria Tiffany Evangelista RN March 15, 2023 12:02 PM TRANSITIONAL CARE MANAGEMENT (TCM) COMMUNITY MONITORING PROGRAM Provider Action/FYI: Pt states she is feeling better Denies CP or acute pain, SOB, N/V, fever or chills Denies swelling, redness or drainage from surgical sites Denies surgical pain, hasn't had to take oxycodone for a couple days Denies new or worsening symptoms Voiding without difficulty BM 03/15 Appetite is improving, eating and hydrating Has appointment with surgeon today Denies questions or concerns at this time Upcoming appointments PCP 03/19 Copied from Care Everywhere [facility] 03/05-03/11 Retrocecal abscess, Right lower quadrant abdominal pain Hospital Course: Patient was admitted with right-sided abdominal pain. CT revealed fluid collection on the right and possible perforated cecal mass. Patient was taken for surgery and she had a right hemicolectomy. There was a perforated mass withabscess. Drain was left in place and patient was admitted with broad-spectrum antibiotics. Once she started passing flatus she was slowly advanced to clear liquids and advanced on her diet to regular. Once tolerating regular diet and having bowel movement her drain was removed and she will be sent home in stable condition. She will be sent home on Cipro and follow-up later this week for staple removal and recheck hemoglobin. Ciprofloxacin Hcl (Cipro) 500 mg tablet take 1 tablet by mouth twice a day MetroNIDAZOLE (FLAGYL) 500 mg tablet take 1 tablet by mouth every 8 hours for 7 days OxyCODONE IR (ROXICODONE) 5 mg immediate release tablet TAKE 1 TABLET BY MOUTH EVERY 6 HOURS NEEDED NEEDED FOR PAIN SCORE 6-10 FOR 5 DAYS SUMMARY: Discharge Network Status: [id number] (OON) Discharge Pt discharged from [facility] on 03/11/23. Admitted for: Right lower quadrant abdominal pain, retrocecal abscess, right hemicolectomy Contact made with patient: Yes Hi my name is Tiffany Evangelista RN and I am calling from the [facility] on behalf of your PCP, Jeff Pearce, DO I understand you were recently in the hospital so I am calling to check in with you to ensure you are feeling well now that you're home. May I ask you a few questions related to your hospital stay and well-being? Yes Contact with patient post discharge, spoke to patient. Patient identified by name and . Do you feel your health is BETTER, WORSE, or the SAME since leaving the hospital? Better ACTION TAKEN: Patient indicated symptoms are better or same, no action required. Continue outreach. MEDICATIONS: Many patients have questions or concerns about their medications once they are home. Do you have any questions about taking your medications or which medication you should be on? No Do you need any medication refills at this time, including any of the medications you might take only when needed? No ACTION TAKEN: No action required For RNs or Pharmacy completing outreach ONLY, was a medication review completed? No Partial medication review completed: new medications added per patient preference. SOCIAL: We would like to make sure you have what you need so that your basics needs are met - including your personal safety, food, housing and medications. Would you like to speak with a social work steam table associate to help give you support for any of these needs? No It can be normal to feel anxious or down during a time like this. Would you like to talk to a mental health professional about how you have been feeling? No ACTION TAKEN: No action taken DISCHARGE INTRUCTIONS: Your discharge instructions / After Visit Summary (AVS) are important in guiding you through the recovery process. Do you have any questions related to your discharge instructions? No Do you have all the necessary equipment and supplies at home? No ACTION TAKEN: No action required I would like to help you schedule a hospital follow-up virtual or telephone visit with your PCP. This is a great way for you to connect with your provider to ensure you have safely transitioned home. If you are agreeable, I will send your request to a fashion styling intern who will contact and assist you with that appointment. This will give you an opportunity to ask any questions or address any co (more content not included)... [facility] 03-15-2023 History of Present illness Narrative TCM Home Visit Referral Source of Stratification: [facility] Hospital Admission Status: Discharged Readmission Risk Score: N/A CHRISTIAN Score: N/A Patient meets program referral criteria: No Patient does not qualify for High Risk TCM Home Visit program due to: Discharged home, does not meet program criteria Tiffany Evangelista RN March 15, 2023 12:02 PM TRANSITIONAL CARE MANAGEMENT (TCM) COMMUNITY MONITORING PROGRAM Provider Action/FYI: Pt states she is feeling better Denies CP or acute pain, SOB, N/V, fever or chills Denies swelling, redness or drainage from surgical sites Denies surgical pain, hasn't had to take oxycodone for a couple days Denies new or worsening symptoms Voiding without difficulty BM 03/15 Appetite is improving, eating and hydrating Has appointment with surgeon today Denies questions or concerns at this time Upcoming appointments PCP 03/19 Copied from Care Everywhere [facility] 03/05-03/11 Retrocecal abscess, Right lower quadrant abdominal pain Hospital Course: Patient was admitted with right-sided abdominal pain. CT revealed fluid collection on the right and possible perforated cecal mass. Patient was taken for surgery and she had a right hemicolectomy. There was a perforated mass withabscess. Drain was left in place and patient was admitted with broad-spectrum antibiotics. Once she started passing flatus she was slowly advanced to clear liquids and advanced on her diet to regular. Once tolerating regular diet and having bowel movement her drain was removed and she will be sent home in stable condition. She will be sent home on Cipro and follow-up later this week for staple removal and recheck hemoglobin. Ciprofloxacin Hcl (Cipro) 500 mg tablet take 1 tablet by mouth twice a day MetroNIDAZOLE (FLAGYL) 500 mg tablet take 1 tablet by mouth every 8 hours for 7 days OxyCODONE IR (ROXICODONE) 5 mg immediate release tablet TAKE 1 TABLET BY MOUTH EVERY 6 HOURS NEEDED NEEDED FOR PAIN SCORE 6-10 FOR 5 DAYS SUMMARY: Discharge Network Status: [id number] (OON) Discharge Pt discharged from [facility] on 03/11/23. Admitted for: Right lower quadrant abdominal pain, retrocecal abscess, right hemicolectomy Contact made with patient: Yes Hi my name is Tiffany Evangelista RN and I am calling from the [facility] on behalf of your PCP, Jeff Pearce, DO I understand you were recently in the hospital so I am calling to check in with you to ensure you are feeling well now that you're home. May I ask you a few questions related to your hospital stay and well-being? Yes Contact with patient post discharge, spoke to patient. Patient identified by name and . Do you feel your health is BETTER, WORSE, or the SAME since leaving the hospital? Better ACTION TAKEN: Patient indicated symptoms are better or same, no action required. Continue outreach. MEDICATIONS: Many patients have questions or concerns about their medications once they are home. Do you have any questions about taking your medications or which medication you should be on? No Do you need any medication refills at this time, including any of the medications you might take only when needed? No ACTION TAKEN: No action required For RNs or Pharmacy completing outreach ONLY, was a medication review completed? No Partial medication review completed: new medications added per patient preference. SOCIAL: We would like to make sure you have what you need so that your basics needs are met - including your personal safety, food, housing and medications. Would you like to speak with a social work steam table associate to help give you support for any of these needs? No It can be normal to feel anxious or down during a time like this. Would you like to talk to a mental health professional about how you have been feeling? No ACTION TAKEN: No action taken DISCHARGE INTRUCTIONS: Your discharge instructions / After Visit Summary (AVS) are important in guiding you through the recovery process. Do you have any questions related to your discharge instructions? No Do you have all the necessary equipment and supplies at home? No ACTION TAKEN: No action required I would like to help you schedule a hospital follow-up virtual or telephone visit with your PCP. This is a great way for you to connect with your provider to ensure you have safely transitioned home. If you are agreeable, I will send your request to a fashion styling intern who will contact and assist you with that appointment. This will give you an opportunity to ask any questions or address any concerns you may have with your PCP. Inform the patient that if they have any questions or concerns prior to that appointment, to call their PCP's office right away. ACTION TAKEN: No action required, patient already has an appointment scheduled. Your doctor would like us to remind you of the recommendations regarding the coronavirus (Covid19) outbreak: Avoid public places as much as possible. Avoid close contact (within 6 feet) with others you don t live with, especially if they are sick. Stay home if you are sick. Wash your hands regularly for at least 20 seconds with soap and water. Wear a cloth mask in public places to help reduce community spread. Do not go to your Doctor s office unless instructed to do so. For any non-emergency symptoms, call your Doctor s office to get instructions on how to manage (we might recommend a telephone or virtual visit). For emergency symptoms, proceed to Emergency Department as usual but inform them of cough and fever symptoms [place] if present (or call on the way if possible). KELLEY Education Ordered -: No MARIN Lindsay, lump maker [employer] [facility] documented in this encounter [facility] 02-22-2023 Note HNO ID: [id number] Author: HI EDMOND LPN Service: ? Author Type: LICENSED NURSE Type: Progress Notes Filed: 02/22/2023 10:19 Note Text: Patient presents for B-12 injection. Denies any problems at this time. Patient instructed on any SE of medication, verbalized understanding and agreed to proceed with treatment. Tolerated injection well. Hi Edmond LPN [facility] 02-08-2023 Note HNO ID: [id number] Author: Hi Edmond LPN Service: ? Author Type: LICENSED NURSE Type: Progress Notes Filed: 02/08/2023 10:16 AM Note Text: Patient presents for B-12 injection. Denies any problems at this time. Patient instructed on any SE of medication, verbalized understanding and agreed to proceed with treatment. Tolerated injection well. Hi Edmond LPN [facility] 01-25-2023 Note HNO ID: [id number] Author: Hi Edmond LPN Service: ? Author Type: ? Type: Progress Notes Filed: 01/25/2023 10:23 AM Note Text: Patient presents for B-12 injection. Denies any problems at this time. Patient instructed on any SE of medication, verbalized understanding and agreed to proceed with treatment. Tolerated injection well. Hi Edmond LPN [facility] 01-25-2023 History of Present illness Narrative Patient presents for B-12 injection. Denies any problems at this time. Patient instructed on any SE of medication, verbalized understanding and agreed to proceed with treatment. Tolerated injection well. Hi Edmond LPN documented in this encounter [facility] 01-11-2023 Note HNO ID: [id number] Author: Hi Edmond LPN Service: ? Author Type: ? Type: Progress Notes Filed: 01/11/2023 10:38 AM Note Text: Patient presents for B-12 injection. Denies any problems at this time. Patient instructed on any SE of medication, verbalized understanding and agreed to proceed with treatment. Tolerated injection well. Hi Edmond LPN [facility] 12-28-2022 Note HNO ID: [id number] Author: Hi Edmond LPN Service: ? Author Type: ? Type: Progress Notes Filed: 12/28/2022 10:07 AM Note Text: Patient presents for B-12 injection. Denies any problems at this time. Patient instructed on any SE of medication, verbalized understanding and agreed to proceed with treatment. Tolerated injection well. Hi Edmond LPN [facility] 12-28-2022 History of Present illness Narrative Patient presents for B-12 injection. Denies any problems at this time. Patient instructed on any SE of medication, verbalized understanding and agreed to proceed with treatment. Tolerated injection well. Hi Edmond LPN documented in this encounter [facility] 12-14-2022 Note HNO ID: [id number] Author: Hi Edmond LPN Service: ? Author Type: ? Type: Progress Notes Filed: 12/14/2022 10:12 AM Note Text: Patient presents for B-12 injection. Denies any problems at this time. Patient instructed on any SE of medication, verbalized understanding and agreed to proceed with treatment. Tolerated injection well. Hi Edmond LPN [facility] 12-12-2022 Note HNO ID: [id number] Author: Jeff Pearce DO Service: ? Author Type: Physician Type: Progress Notes Filed: 12/12/2022 4:56 PM Note Text: Patient presents with: F/U 3 Month HPI: Amado Queen is a 77 year old female who [...] injections. Still struggling with fatigue symptoms. Ms. Queen has past history of diabetes. Since our [...] was within the past 12 months Ms. Queen reports history of hyperlipidemia. Current therapy includes diet and exercise. Denies side effects of muscle weakness or achiness. Her most recent lipid panels are reviewed. Cholesterol, Total (mg/dL) Date Value 11/30/2022 159 02/15/2021 189 HDL Cholesterol (mg/dL) Date Value 11/30/2022 38 02/15/2021 34 LDL Cholesterol (mg/dL) Date Value 11/30/2022 99 02/15/2021 122 Triglyceride (mg/dL) Date Value 11/30/2022 110 02/15/2021 165 Ms. Queen indicates a history of hypertension and states [...] WHEN PFRMD 08/25/2003 adenomatous polyp and diverticulosis. [facility] COLONOSCOPY FLX DX W/COLLJ SPEC WHEN PFRMD 09/28/2006 No polyps found. 5 yr recall. [facility] COLONOSCOPY FLX DX W/COLLJ SPEC WHEN PFRMD 02/26/2018 Colonoscopy ESOPHAGOGASTRODUODENOSCOPY TRANSORAL DIAGNOSTIC 08/31/2003 Unremarkable, negative biopsies. [facility] ESOPHAGOGASTRODUODENOSCOPY TRANSORAL DIAGNOSTIC 02/26/2018 EGD LAPAROSCOPIC CHOLECYSTECTOMY 04/05/2022 REMV CATARACT EXTRACAP,INSERT LENS Bilateral TONSILLECTOMY HX Social History Tobacco Use Smoking status: Never Smokeless tobacco: Never Vaping Use Vaping Use: Never used Substance Use Topics Alcohol use: No Drug use: No FAMILY HISTORY Adopted: Yes Allergies: ALLERGIES Allergen Reactions Benadryl [Diphenhyd* Swelling Penicillins Shortness of Breath Jdhbxge-Uwt-Rpq Red* Contraindication-Medical Surgical History of liver failure [...] Controlled E11.9 Insulin: NoDisp: 1 EachRfl: 11 blood sugar diagnostic (ONETOUCH ULTRA TEST STRIP) test stripType 2 diabetes, no insulin, well controlled, Use as instructedDisp: 200 EachRfl: 3 Blood-Glucose Meter monitoring kitGlucose Meter of Choice - Kit - Dx: Type 2 DM - Controlled E11.9Disp: 1 EachRfl: 0 aspirin, enteric coated (ASPIRIN, ENTERIC COATED) 81 mg EC ta (more content not included)... [facility] 12-12-2022 History of Present illness Narrative Patient presents with: F/U 3 Month HPI: Amado Queen is a 77 year old female who [...] injections. Still struggling with fatigue symptoms. Ms. Queen has past history of diabetes. Since our [...] was within the past 12 months Ms. Queen reports history of hyperlipidemia. Current therapy includes diet and exercise. Denies side effects of muscle weakness or achiness. Her most recent lipid panels are reviewed. Cholesterol, Total (mg/dL) Date Value 11/30/2022 159 02/15/2021 189 HDL Cholesterol (mg/dL) Date Value 11/30/2022 38 02/15/2021 34 LDL Cholesterol (mg/dL) Date Value 11/30/2022 99 02/15/2021 122 Triglyceride (mg/dL) Date Value 11/30/2022 110 02/15/2021 165 Ms. Queen indicates a history of hypertension and states [...] WHEN PFRMD 08/25/2003 adenomatous polyp and diverticulosis. [facility] COLONOSCOPY FLX DX W/COLLJ SPEC WHEN PFRMD 09/28/2006 No polyps found. 5 yr recall. [facility] COLONOSCOPY FLX DX W/COLLJ SPEC WHEN PFRMD 02/26/2018 Colonoscopy ESOPHAGOGASTRODUODENOSCOPY TRANSORAL DIAGNOSTIC 08/31/2003 Unremarkable, negative biopsies. [facility] ESOPHAGOGASTRODUODENOSCOPY TRANSORAL DIAGNOSTIC 02/26/2018 EGD LAPAROSCOPIC CHOLECYSTECTOMY 04/05/2022 REMV CATARACT EXTRACAP,INSERT LENS Bilateral TONSILLECTOMY HX Social History Tobacco Use Smoking status: Never Smokeless tobacco: Never Vaping Use Vaping Use: Never used Substance Use Topics Alcohol use: No Drug use: No FAMILY HISTORY Adopted: Yes Allergies: ALLERGIES Allergen Reactions Benadryl [Diphenhyd* Swelling Penicillins Shortness of Breath Prolhoy-Wva-Ifz Red* Contraindication-Medical Surgical History of liver failure [...] with the plan. Jeff Pearce DO [address] [place] [address] documented in this encounter [facility] 11-30-2022 Note HNO ID: [id number] Author: Hi Edmond LPN Service: ? Author Type: ? Type: Progress Notes Filed: 11/30/2022 9:17 AM Note Text: Patient presents for B-12 injection. Denies any problems at this time. Patient instructed on any SE of medication, verbalized understanding and agreed to proceed with treatment. Tolerated injection well. Hi Edmond LPN [facility] 11-30-2022 History of Present illness Narrative Patient presents for B-12 injection. Denies any problems at this time. Patient instructed on any SE of medication, verbalized understanding and agreed to proceed with treatment. Tolerated injection well. Hi Edmond LPN documented in this encounter [facility] 11-16-2022 Note HNO ID: [id number] Author: Hi Edmond LPN Service: ? Author Type: ? Type: Progress Notes Filed: 11/16/2022 9:02 AM Note Text: Patient presents for B-12 injection. Denies any problems at this time. Patient instructed on any SE of medication, verbalized understanding and agreed to proceed with treatment. Tolerated injection well. Hi Edmond LPN [facility] 11-16-2022 History of Present illness Narrative Patient presents for B-12 injection. Denies any problems at this time. Patient instructed on any SE of medication, verbalized understanding and agreed to proceed with treatment. Tolerated injection well. Hi Edmond LPN documented in this encounter [facility] 11-03-2022 Note HNO ID: [id number] Author: Hi Edmond LPN Service: ? Author Type: ? Type: Progress Notes Filed: 11/03/2022 8:58 AM Note Text: Patient presents for B-12 injection. Denies any problems at this time. Patient instructed on any SE of medication, verbalized understanding and agreed to proceed with treatment. Tolerated injection well. Hi Edmond LPN [facility] 11-03-2022 History of Present illness Narrative Patient presents for B-12 injection. Denies any problems at this time. Patient instructed on any SE of medication, verbalized understanding and agreed to proceed with treatment. Tolerated injection well. Hi Edmond LPN documented in this encounter [facility] 10-17-2022 Note HNO ID: [id number] Author: Hi Edmond LPN Service: ? Author Type: ? Type: Progress Notes Filed: 10/17/2022 9:15 AM Note Text: Patient presents for B-12 injection. Denies any problems at this time. Patient instructed on any SE of medication, verbalized understanding and agreed to proceed with treatment. Tolerated injection well. Hi Edmond LPN [facility] 10-17-2022 History of Present illness Narrative Patient presents for B-12 injection. Denies any problems at this time. Patient instructed on any SE of medication, verbalized understanding and agreed to proceed with treatment. Tolerated injection well. Hi Edmond LPN documented in this encounter [facility] 10-05-2022 Miscellaneous Notes Left detailed message on voicemail that labs are normal Maribeth Andrade Ma Please inform patient that her recent liver enzyme labs and free t4 thyroid levels are normal Jeff Pearce DO documented in this encounter [facility] 10-02-2022 Note HNO ID: [id number] Author: Hi Edmond LPN Service: ? Author Type: ? Type: Progress Notes Filed: 10/02/2022 9:50 AM Note Text: Patient presents for B-12 injection. Denies any problems at this time. Patient instructed on any SE of medication, verbalized understanding and agreed to proceed with treatment. Tolerated injection well. Hi Edmond LPN [facility] 10-02-2022 History of Present illness Narrative Patient presents for B-12 injection. Denies any problems at this time. Patient instructed on any SE of medication, verbalized understanding and agreed to proceed with treatment. Tolerated injection well. Hi Edmond LPN documented in this encounter [facility] 09-19-2022 Note HNO ID: [id number] Author: Hi Edmond LPN Service: ? Author Type: ? Type: Progress Notes Filed: 09/19/2022 9:32 AM Note Text: Patient presents for B-12 injection. Denies any problems at this time. Patient instructed on any SE of medication, verbalized understanding and agreed to proceed with treatment. Tolerated injection well. Hi Edmond LPN [facility] 09-19-2022 History of Present illness Narrative Patient presents for B-12 injection. Denies any problems at this time. Patient instructed on any SE of medication, verbalized understanding and agreed to proceed with treatment. Tolerated injection well. Hi Edmond LPN documented in this encounter [facility] documented as of this encounter (statuses as of 03/16/2023) [facility]07-25-2023 History of Past illness Narrative* Problem Noted Date Diagnosed Date Resolved Date Controlled type 2 diabetes m ell[place] without complication, without long-term current use of insulin 09/05/2022 03/02/2023 Obesity, Class III, BMI >= 40 02/26/2018 08/23/2020 Peripheral neuropathy 01/21/20182021 Controlled type 2 diabetes m ellitus without complication, without long-term current use of insulin 01/21/2018 09/04/2022 Last Assessment & Plan: Assessment: Last A1C on 02/14/22 was 6.6%, on rx. Obesity, Class II, BMI 35-39.9 04/13/2017 03/02/2023 Diabetes mellitus type 2, co ntrolled, without complications 05/17/2015 08/23/2020 documented as of this encounter (statuses as of 03/22/2023) [facility]07-25-2023 History of Past illness Narrative* Problem Noted Date Diagnosed Date Resolved Date Controlled type 2 diabetes m ellitus without complication, without long-term current use of insulin 09/05/2022 03/02/2023 Obesity, Class III, BMI >= 40 02/26/2018 08/23/2020 Peripheral neuropathy 01/21/20182021 Controlled type 2 diabetes m ellitus without complication, without long-term current use of insulin 01/21/2018 09/04/2022 Last Assessment & Plan: Assessment: Last A1C on 02/14/22 was 6.6%, on rx. Obesity, Class II, BMI 35-39.9 04/13/2017 03/02/2023 Diabetes mellitus type 2, co ntrolled, without complications 05/17/2015 08/23/2020 documented as of this encounter (statuses as of 03/22/2023) [address]25-2023 History of Past illness Narrative* Problem Noted Date Diagnosed Date Resolved Date Controlled type 2 diabetes m [place] without complication, without long-term current use of insulin 09/05/2022 03/02/2023 Obesity, Class III, BMI >= 40 02/26/2018 08/23/2020 Peripheral neuropathy 01/21/20182021 Controlled type 2 diabetes m [place] without complication, without long-term current use of insulin 01/21/2018 09/04/2022 Last Assessment & Plan: Assessment: Last A1C on 02/14/22 was 6.6%, on rx. Obesity, Class II, BMI 35-39.9 04/13/2017 03/02/2023 Diabetes mellitus type 2, co ntrolled, without complications 05/17/2015 08/23/2020 documented as of this encounter (statuses as of 04/04/2023) [facility]07-25-2023 NoteHNO ID: [id number] Author: Jeff Pearce, DO Service: ? Author Type: Physician Type: Progress Notes Filed: 09/05/2022 12:21 PM Note Text: Patient presents with: F/U 3 Month HPI: Amado Queen is a 77 year old female who [...] injections. Still struggling with fatigue symptoms. Ms. Queen has past history of diabetes. Since our [...] was within the past 12 months Ms. Queen reports history of hyperlipidemia. Current therapy includes diet and exercise. Denies side effects of muscle weakness or achiness. Her most recent lipid panels are reviewed. Cholesterol, Total (mg/dL) Date Value 05/17/2022 155 02/15/2021 189 HDL Cholesterol (mg/dL) Date Value 05/17/2022 34 02/15/2021 34 LDL Cholesterol (mg/dL) Date Value 05/17/2022 89 02/15/2021 122 Triglyceride (mg/dL) Date Value 05/17/2022 161 02/15/2021 165 Ms. Queen indicates a history of hypertension and states [...] WHEN PFRMD 08/25/2003 adenomatous polyp and diverticulosis. [facility] COLONOSCOPY FLX DX W/COLLJ SPEC WHEN PFRMD 09/28/2006 No polyps found. 5 yr recall. [facility] COLONOSCOPY FLX DX W/COLLJ SPEC WHEN PFRMD 02/26/2018 Colonoscopy ESOPHAGOGASTRODUODENOSCOPY TRANSORAL DIAGNOSTIC 08/31/2003 Unremarkable, negative biopsies. [facility] ESOPHAGOGASTRODUODENOSCOPY TRANSORAL DIAGNOSTIC 02/26/2018 EGD LAPAROSCOPIC CHOLECYSTECTOMY 04/05/2022 REMV CATARACT EXTRACAP,INSERT LENS Bilateral TONSILLECTOMY HX Social History Tobacco Use Smoking status: Never Smokeless tobacco: Never Vaping Use Vaping Use: Never used Substance Use Topics Alcohol use: No Drug use: No FAMILY HISTORY Adopted: Yes Allergies: ALLERGIES Allergen Reactions Benadryl [Diphenhyd* Swelling Penicillins Shortness of Breath Asclnkl-Lle-Kbu Red* Contraindication-Medical Surgical History of liver failure [...] EachRfl: 3 lancets (ONE (more content not included)...[facility]06-26-2023 NoteHNO ID: [id number] Author: Hi Edmond LPN Service: ? Author Type: ? Type: Progress Notes Filed: 08/07/2022 11:25 AM Note Text: Patient presents for B-12 injection. Denies any problems at this time. Patient instructed on any SE of medication, verbalized understanding and agreed to proceed with treatment. Tolerated injection well. Hi Oxly [facility]06-26-2023 History of Present illness Narrative* Hi Edmond LPN - 08/07/2022 11:24 AM EDT Patient presents for B-12 injection. Denies any problems at this time. Patient instructed on any SEof medication, verbalized understanding and agreed to proceed with treatment. Tolerated injection well. Hi Edmond LPN [facility] NoteHNO ID: [id number] Author: Hi Edmond LPN Service: ? Author Type: ? Type: Progress Notes Filed: 07/11/2022 9:35 AM Note Text: Patient presents for B-12 injection. Denies any problems at this time. Patient instructed on any SE of medication, verbalized understanding and agreed to proceed with treatment. Tolerated injection well. Hiher Edmond [facility]05-30-2023 History of Present illness Narrative* Hi Edmond LPN - 07/11/2022 9:33 AM EDT Patient presents for B-12 injection. Denies any problems at this time. Patient instructed on any SEof medication, verbalized understanding and agreed to proceed with treatment. Tolerated injection well. Hi Edmond LPN [facility]23 NoteHNO ID: [id number] Author: Hi Edmond LPN Service: ? Author Type: ? Type: Progress Notes Filed: 06/12/2022 9:32 AM Note Text: Patient presents for B-12 injection. Denies any problems at this time. Patient instructed on any SE of medication, verbalized understanding and agreed to proceed with treatment. Tolerated injection well. Hi Edmond [facility]05-01-2023 History of Present illness Narrative* Hi Edmond LPN - 06/12/2022 9:09 AM EDT Patient presents for B-12 injection. Denies any problems at this time. Patient instructed on any SEof medication, verbalized understanding and agreed to proceed with treatment. Tolerated injection well. Hi Edmond LPN [facility] NoteHNO ID: [id number] Author: Jeff Pearce, DO Service: ? Author Type: Physician Type: Progress Notes Filed: 05/26/2022 7:29 AM Note Text: Patient presents with: F/U 3 Month HPI: Amado Queen is a 77 year old female who presents to the office today for review of health conditions. Concerns today: Patient is currently post operative in the last month from cholecystectomy surgery Ms. Queen has past history of diabetes. Since our [...] was within the past 12 months Ms. Queen reports history of hyperlipidemia. Current therapy includes diet and exercise. Denies side effects of muscle weakness or achiness. Her most recent lipid panels are reviewed. Cholesterol, Total (mg/dL) Date Value 05/17/2022 155 02/15/2021 189 HDL Cholesterol (mg/dL) Date Value 05/17/2022 34 02/15/2021 34 LDL Cholesterol (mg/dL) Date Value 05/17/2022 89 02/15/2021 122 Triglyceride (mg/dL) Date Value 05/17/2022 161 02/15/2021 165 Ms. Queen indicates a history of hypertension and states [...] WHEN PFRMD 08/25/2003 adenomatous polyp and diverticulosis. [facility] COLONOSCOPY FLX DX W/COLLJ SPEC WHEN PFRMD 09/28/2006 No polyps found. 5 yr [facility] SPEC WHEN PFRMD 02/26/2018 Colonoscopy ESOPHAGOGASTRODUODENOSCOPY TRANSORAL DIAGNOSTIC 08/31/2003 Unremarkable, negative biopsies. [facility] ESOPHAGOGASTRODUODENOSCOPY TRANSORAL DIAGNOSTIC 02/26/2018 EGD LAPAROSCOPIC CHOLECYSTECTOMY 04/05/2022 REMV CATARACT EXTRACAP,INSERT LENS Bilateral TONSILLECTOMY HX Social History Tobacco Use Smoking status: Never Smokeless tobacco: Never Vaping Use Vaping Use: Never used Substance Use Topics Alcohol use: No Drug use: No FAMILY HISTORY Adopted: Yes Allergies: ALLERGIES Allergen Reactions Benadryl [Diphenhyd* Swelling Penicillins Shortness of Breath Wprkntz-Gpr-Oqw Red* Contraindication-Medical Surgical History of liver failure [...] (GLUCOPHAGE) 500 mg ta (more content not included)...[facility]04-14-2023 History of Present illness Narrative* Jeff Pearce, - 05/26/2022 7:23 AM EDT Patient presents with: F/U 3 Month HPI: Amado Queen is a 77 year old female who presents to the office today for review of health conditions. Concerns today: Patient is currently post operative in the last month from cholecystectomy surgery Ms. Queen has past history of diabetes. Since our last visit she denies excessive thirst or increased frequency of urination, chest pain or dyspnea , new or unusual visual symptoms, and low sugar/hypoglycemic reactions. Depression- no. Follows a diabetic diet some of the time. She is compliant with medication(s) and is tolerating med(s) without any side effects. She reports checking her glucoseon a once a day schedule with sugars in the <150 range. Patient's last HgA1C was Hemoglobin A1C (%) Date Value 05/17/2022 6.0 02/14/2022 6.6 02/15/2021 7.3 08/17/2020 7.0 ) Last Ophthalmology exam was within the past 12 months Ms. Queen reports history of hyperlipidemia. Current therapy includes diet and exercise. Denies side effects of muscle weakness or achiness. Her most recent lipid panels are reviewed. Cholesterol, Total (mg/dL) Date Value 05/17/2022 155 02/15/2021 189 HDL Cholesterol (mg/dL) Date Value 05/17/2022 34 02/15/2021 34 LDL Cholesterol (mg/dL) Date Value 05/17/2022 89 02/15/2021 122 Triglyceride (mg/dL) Date Value 05/17/2022 161 02/15/2021 165 Ms. Queen indicates a history of hypertension and states [...] WHEN PFRMD 08/25/2003 adenomatous polyp and diverticulosis. [facility] COLONOSCOPY FLX DX W/COLLJ SPEC WHEN PFRMD 09/28/2006 No polyps found. 5 yr recall. [facility]. [facility] COLONOSCOPY FLX DX W/COLLJ SPEC WHEN PFRMD 02/26/2018 Colonoscopy ESOPHAGOGASTRODUODENOSCOPY TRANSORAL DIAGNOSTIC 08/31/2003 Unremarkable, negative biopsies. [facility] ESOPHAGOGASTRODUODENOSCOPY TRANSORAL DIAGNOSTIC 02/26/2018 EGD LAPAROSCOPIC CHOLECYSTECTOMY 04/05/2022 REMV CATARACT EXTRACAP,INSERT LENS Bilateral TONSILLECTOMY HX Social History Tobacco Use Smoking status: Never Smokeless tobacco: Never Vaping Use Vaping Use: Never used Substance Use Topics Alcohol use: No Drug use: No FAMILY HISTORY Adopted: Yes Allergies: ALLERGIES Allergen Reactions Benadryl [Diphenhyd* Swelling Penicillins Shortness of Breath Kkqhyfr-Ngw-Qwm Red* Contraindication-Medical Surgical History of liver failure [...] once daily as directed E11.9^Disp: 100 Each^Rfl: 3(Patient taking differently: Use once daily as directed [...] twice daily with meals. Take 1000 mg POwith breakfast and 1500 mg PO with supper^Disp: [...] with the plan. Jeff Pearce DO [address] [place] [address] [facility] NoteHNO ID: [id number] Author: Hi Edmond LPN Service: ? Author Type: ? Type: Progress Notes Filed: 05/15/2022 9:03 AM Note Text: Patient presents for B-12 injection. Denies any problems at this time. Patient instructed on any SE of medication, verbalized understanding and agreed to proceed with treatment. Tolerated injection well. [facility] History of Present illness Narrative* Hi Edmond LPN - 05/15/2022 9:00 AM EDT Patient presents for B-12 injection. Denies any problems at this time. Patient instructed on any SEof medication, verbalized understanding and agreed to proceed with treatment. Tolerated injection well. Hi Edmond LPN documented in this encounterCleveland [id number] NoteHNO ID: [id number] Author: Amado Campos PA-C Service: ? Author Type: Physician [place] Type: Progress Notes Filed: 04/21/2022 3:28 PM Note Text: FOLLOW UP VISIT - CHOLECYSTECTOMY NAME: Amado Queen [facility] NO.: [id number] DATE OF SERVICE: 04/13/2022 : 1945 REFERRING [...] instructed to follow-up with me as needed. [facility] ELE[facility] History of Present illness Narrative* Amado Campos PA-C - 04/21/2022 3:25 PM EST FOLLOW UP VISIT - CHOLECYSTECTOMY NAME: Amado Glover [facility] NO.: [id number] DATE OF SERVICE: 04/13/2022 : 1945 REFERRING [...] soreness is improving since her visit earlier thisweek. her appetite has been good. she denies fever, chills or abdominal pain. she does note some mild incisional discomfort. VITALS: Blood pressure 138/66, pulse 118, temperature 36.4 C (97.6 F), weight 82.6 kg (182 lb 3.2 oz), SpO2 96 %. On examination, the abdomen is benign. The incisions are healing well without signs of infection orinflammation. Assessment IMPRESSION: status post laparoscopic cholecystectomy with intraoperative cholangiogram PLAN: If the patient notes any problems, she should contact me immediately. she may return to her regularactivities as tolerated, with the exception of no [...] needed. Amado Campos PA-C [facility] NoteHNO ID: [id number] Author: Hi Edmond LPN Service: ? Author Type: ? Type: Progress Notes Filed: 04/17/2022 9:15 AM Note Text: Patient presents for B-12 injection. Denies any problems at this time. Patient instructed on any SE of medication, verbalized understanding and agreed to proceed with treatment. Tolerated injection well. Hi Edmond [facility]03-02-2023 Instructions* Patient Instructions* Amado Campos PA-C - 04/13/2022 9:33 AM EST -Continue warm compresses as needed for discomfort -OK to begin walking dog in the next few days The following instructions are important for you related to your office visit today with the [facility] General Surgeons. INSTRUCTIONS FOLLOWING YOU [...] you should contact our office immediately @ [phone] and ask to be transferred to the General Surgery department. [facility]23 NoteHNO ID: [id number] Author: Amado Campos PA-C Service: ? Author Type: Physician [place] Type: Progress Notes Filed: 04/17/2022 4:48 PM Note Text: FOLLOW UP VISIT - CHOLECYSTECTOMY NAME: Amado Glover [facility] NO.: [id number] DATE OF SERVICE: 04/10/2022 : 1945 REFERRING [...] to follow-up with me in 2 days. BARRY [facility] Instructions* Patient Instructions* Amado Campos PA-C - 04/10/2022 2:07 PM EST -Heating pad/warm compresses -Aleve short-term for pain -May use abdominal binder when up and ambulating -Call immediately if any worsening symptoms The following instructions are important for you related to your office visit today with the [facility] Surgeons. INSTRUCTIONS FOLLOWING YOU [...] you should contact our office immediately @ [phone] and ask to be transferred to the General Surgery department. [facility] History of Present illness Narrative* Amado Campos PA-C - 04/10/2022 2:05 PM EST FOLLOW UP VISIT - CHOLECYSTECTOMY NAME: Amado Glover [facility] NO.: [id number] DATE OF SERVICE: 04/10/2022 : 1945 REFERRING [...] abdomen. Noted more pain around incisions since thattime and was concerned. Denies any other injuries. her appetite has been good. she denies fever, chills or abdominal pain. VITALS: Blood pressure 118/58, pulse 117, temperature 36.2 C (97.2 F), height 160 cm (5' 3 ), weight 83.9 kg (185 lb), SpO2 93 %. On examination, the abdomen is benign. The incisions are healing well without signs of infection orinflammation. Assessment IMPRESSION: status post laparoscopic cholecystectomy with intraoperative cholangiogram PLAN: If the patient notes any problems, she should contact me immediately. she may return to her regularactivities as tolerated, with the exception of no lifting greater than 20 pounds for the next 3 weeks. The patient is to contact me immediately is she experiences any of her preoperative symptoms. Wediscussed that occasional right up quadrant symptoms similar [...] days. 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 Please read below carefully for your personalized [...] Procedures: - YOU MUST HAVE A RESPONSIBLE BAR STAFF TAKE YOU HOME. A TOBACCO CLASSER OR SHOWCASE MAKER CANNOT BE MADE A RESPONSIBLE BAR STAFF. - We recommend that a responsible person stays with you overnight to take care of you. - You cannot stay in a hotel alone after outpatient surgery. You will not be permitted to have yoursurgery, if you do not have someone to [...] Advance Directive, please fax a copy to [phone] or email to for it to be added to your chart. If you do not have an Advance Directive, you can find the appropriate form and more information at [email or web address]. We recommend that youcomplete the Advance Directive form found on the website and bring it with you the day of your surgery. It can be witnessed and scanned into your chart that day. Yon Yee APRN.CNP documented in this encounterM[facility] History and physical note * Yon Yee APRN.CNP - 04/03/2022 11:20 AM EST HISTORY AND PHYSICAL EXAMINATION SERVICE DATE: 04/03/2022 SERVICE TIME: 11:40 AM PRIMARY CARE PHYSICIAN: Jeff Pearce DO REASON FOR VISIT: Amado Queen is a 76 year old female who is scheduled for Procedure(s): LAPAROSCOPIC CHOLECYSTECTOMY WITH GRAMS (N/A) at the request of Dr. Shahriar Randall for consultation. My final recommendation will be [...] Symptoms started about 6 weeks ago and symptomsare a little better. Intermittent abdominal pain, currently [...] > 1 time per night or hematuria. 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 [facility] COLONOSCOPY FLX DX W/COLLJ SPEC WHEN PFRMD 09/28/2006 No polyps found. 5 yr recall. [facility]a. [facility] COLONOSCOPY FLX DX W/COLLJ SPEC WHEN PFRMD 02/26/2018 Colonoscopy ESOPHAGOGASTRODUODENOSCOPY TRANSORAL DIAGNOSTIC 08/31/2003 Unremarkable, negative biopsies. [facility] ESOPHAGOGASTRODUODENOSCOPY TRANSORAL DIAGNOSTIC 02/26/2018 EGD REMV [...] daily. Dx: Type 2 DM - Controlled Insulin: No Taking Yes losartan (COZAAR) 50 [...] DAILY. DX: TYPE 2 DM - CONTROLLED INSULIN: NO Delecia Patient not taking: Reported on 03/24/2022 Lancets (ONETOUCH ULTRASOFT LANCETS) lancets Use once daily as directed Patient not taking: Reported on 03/24/2022 blood [...] - Dx: Type 2 DM - Controlled No medication comments found. ALLERGIES Allergen Reactions Benadryl [Diphenhyd* Swelling Penicillins Shortness of Breath Rhzqohp-Zpw-Spo Red* Contraindication-Medical Surgical History of liver failure [...] or any previous visit (from the past 90135 hour(s)). Assessment Patient has the following medical [...] large neck Non-male patient STOP-Bang Score: 2 [id number] Score: Age: 65-74 Sex: Female CHF history: No Hypertension history: Yes Stroke/TIA/thromboembolism history: No Vascular disease history: No Diabetes history: Yes [id number] Score: 4 ASA Class: 2 ANESTHESIA FINDINGS: Intubation History: No history of difficult intubation. No abnormal airway history Significant Anesthesia Considerations: Per patient in the past she's stopped breathing during 2 surgeries. Unsure why this was. Had surgery at [place] [id number] without issues. potential difficult IV/vein access Airway [...] SIGNATURE: Yon Yee APRN.CNP PATIENT NAME: Amado Queen DATE: April 03, 2022 TIME: 10:38 AM PAGER/CONTACT #: documented in this encounterM[facility]02[facility]23 NoteHNO ID: [id number] Author: Rodriguez Louie MD Service: ? Author Type: Physician Type: Progress Notes Filed: 03/24/2022 5:14 PM Note Text: HISTORY AND PHYSICAL Amado Queen 1945 REFERRING PHYSICIAN: Jeff Pearce DO CHIEF [...] more recently had an endoscopy performed at [place] where the anesthesiologist told her that she [...] WHEN PFRMD 08/25/2003 adenomatous polyp and diverticulosis. [facility] COLONOSCOPY FLX DX W/COLLJ SPEC WHEN PFRMD 09/28/2006 No polyps found. 5 yr recall. [facility]a. [facility] COLONOSCOPY FLX DX W/COLLJ SPEC WHEN PFRMD 02/26/2018 Colonoscopy ESOPHAGOGASTRODUODENOSCOPY TRANSORAL DIAGNOSTIC 08/31/2003 Unremarkable, negative biopsies. [facility] ESOPHAGOGASTRODUODENOSCOPY TRANSORAL DIAGNOSTIC 02/26/2018 EGD TONSILLECTOMY [...] injection 1,000 mcg INTRAMUSCU (more content not included)...[facility]02-10-2023 History of Present illness Narrative* Rodriguez Louie MD - 03/24/2022 11:12 AM EST HISTORY AND PHYSICAL Amado Queen 1945 REFERRING PHYSICIAN: Jeff Pearce DO CHIEF [...] through her back after eating certain foods. Shetries to avoid eating fatty foods because she says she has a previous history of fatty liver and liver failure. She is read about gallstones and is worried that this will somehow increase her historyof liver difficulties. She believes that her right upper quadrant symptoms are due to biliary colic. After discussion of the risks and benefits she is wishing to have cholecystectomy. The patient also notes a degree of anxiety and that she states she had a previous endoscopy and wassedated and stopped breathing. She states she more recently had an endoscopy performed at [place] where the anesthesiologist told her that she [...] WHEN PFRMD 08/25/2003 adenomatous polyp and diverticulosis. [facility] COLONOSCOPY FLX DX W/COLLJ SPEC WHEN PFRMD 09/28/2006 No polyps found. 5 yr recall. [facility] COLONOSCOPY FLX DX W/COLLJ SPEC WHEN PFRMD 02/26/2018 Colonoscopy ESOPHAGOGASTRODUODENOSCOPY TRANSORAL DIAGNOSTIC 08/31/2003 Unremarkable, negative biopsies. [facility] ESOPHAGOGASTRODUODENOSCOPY TRANSORAL DIAGNOSTIC 02/26/2018 EGD TONSILLECTOMY [...] - Dx: Type 2 DM - Controlled E11.91 Each 0 aspirin, enteric coated (ASPIRIN, ENTERIC [...] 1,000 mcg INTRAMUSCULAR q 4 WEEKS Jeff Pearce DO 1,000 mcg at 03/20/22 0915 cyanocobalamin 1,000 mcg injection 1,000 mcg INTRAMUSCULAR As Directed Jeff Pearce DO 1,000 mcg at 10/20/21 0907 ALLERGIES: Benadryl [Diphenhydramine Hcl], Penicillins, and Xyeiflh-Vcv-Ich Reductase Inhibitors PERSONAL HISTORY: Social History Tobacco Use Smoking status: Never Smokeless tobacco: Never Vaping Use Vaping Use: Never used Substance Use Topics Alcohol use: No Drug use: No FAMILY HISTORY: FAMILY HISTORY Adopted: Yes REVIEW OF SYMPTOMS: The review of systems data was entered by the nurse and reviewed by me Nursing Notes: Sheri RothEARL 03/24/2022 10:30 AM Signed REVIEW OF SYSTEMS: [...] nourished, well hydrated in no acute distress. Thepatient is oriented to time, place, and person. VITALS: Blood pressure 124/64, pulse 113, temperature 36 C (96.8 F), height 160 cm (5' 3 ), weight 84.4 kg (186 lb), SpO2 98 %. Body mass index is 32.95 kg/m . HEENT: Normal cephalic, ataumatic, pupils are equally round, sclera are anicteric, mucous membranesare moist, oropharynx is clear. Neck has no [...] option to take printed material concerning the plannedprocedure. The patient had the opportunity to ask questions concerning the planned procedure. The patient freely consents to the planned procedure. 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 Jeff Pearce DO via shared medical record. This note will be forwarded to Dr. Jeff Pearce DO. Rodriguez Louie MD documented in this encounterMccullough[facility]02-[facility] Nurse Note* Sheri RothEARL - 03/24/2022 10:27 AM EST REVIEW OF SYSTEMS: General: The patient denies [...] 2018 Sheri Roth LPN documented in this encounterMccullough-[facility]02-08-2023 Miscellaneous Notes* Telephone Encounter - Brinda Meol - 03/22/2022 10:37 AM EST Called PT LVM to call back and schedule consult to General Surgery * Telephone Encounter - Jeff Pearce DO - 03/21/2022 5:39 PM EST Referral placed, please help her schedule appt Jeff Pearce DO * Telephone Encounter - Nell Perez - 03/21/2022 5:32 PM EST Pt informed, verbalized understanding. Pt reports she still has the RUQ abd pain especially with activity or certain movements. Please place consult to general surg. Pt would like called to schedule appt. Nell Perez * Telephone Encounter - Jeff Pearce DO - 03/21/2022 5:27 PM EST Please inform patient that her RUQ US shows signs of fatty liver disease as well as 2 cm mobile gallstone in the gallbladder. If she is still having RUQ Abdominal pain, I need her to see the surgeon to review further Jeff Pearce DO * Telephone Encounter - Hank Ruvalcaba RN - 03/16/2022 1:16 PM EST Patient asking pcp to review and advise on US results. documented in this encounterMccullough-[facility]02-06-2023 History of Present illness Narrative* Hi Edmond LPN - 03/20/2022 9:14 AM EST Patient presents for B-12 injection. Denies any problems at this time. Patient instructed on any SEof medication, verbalized understanding and agreed to proceed with treatment. Tolerated injection well. Hi Edmond LPN documented in this encounterMccullough-[facility]01-10-2023 History of Present illness Narrative* Jeff Pearce DO - 02/21/2022 7:54 AM EST Patient presents with: F/U 3 Month HPI: Amado Queen is a 76 year old female who [...] vitamin D supplement. No blood in stools- doeshave dark tar like stools since starting iron supplement. Ms. Queen has past history of diabetes. Since our last visit she denies excessive thirst or increased frequency of urination, chest pain or dyspnea , new or unusual visual symptoms, and low sugar/hypoglycemic reactions. Depression- no. Follows a diabetic diet some of the time. She is compliant with medication(s) and is tolerating med(s) without any side effects. She reports checking her glucoseon a twice a day schedule with sugars in the fasting <150 range. Patient's last HgA1C was Hemoglobin A1C (%) Date Value 02/14/2022 6.6 11/08/2021 7.3 02/15/2021 7.3 08/17/2020 7.0 ) Last Ophthalmology exam was within the past 12 months Ms. Queen reports history of hyperlipidemia. Current therapy includes diet and exercise. Denies side effects of muscle weakness or achiness. Her most recent lipid panels are reviewed. Cholesterol, Total (mg/dL) Date Value 2021 164 02/15/2021 189 HDL Cholesterol (mg/dL) Date Value 2021 33 02/15/2021 34 LDL Cholesterol (mg/dL) Date Value 2021 99 02/15/2021 122 Triglyceride (mg/dL) Date Value 2021 159 02/15/2021 165 Ms. Queen indicates a history of hypertension and states [...] HISTORY Diagnosis Date Advance care planning 08/24/2021 [facility] Diabetes mellitus, type 2 (HCC) Environmental allergies Hyperlipidemia Hypothyroidism, unspecified Liver failure (HCC) 2005 unsure of cause Migraine headache onset age 7 PAST SURGICAL HISTORY Procedure Laterality Date BREAST BIOPSY NEEDLE LEFT Dec 31 2014 x 2, Dr. Ronquillo COLONOSCOPY FLX DX W/COLLJ SPEC WHEN PFRMD 08/25/2003 adenomatous polyp and diverticulosis. [facility] COLONOSCOPY FLX DX W/COLLJ SPEC WHEN PFRMD 09/28/2006 No polyps found. 5 yr recall. [facility] COLONOSCOPY FLX DX W/COLLJ SPEC WHEN PFRMD 02/26/2018 Colonoscopy ESOPHAGOGASTRODUODENOSCOPY TRANSORAL DIAGNOSTIC 08/31/2003 Unremarkable, negative biopsies. [facility] ESOPHAGOGASTRODUODENOSCOPY TRANSORAL DIAGNOSTIC 02/26/2018 EGD TONSILLECTOMY HX Social History Tobacco Use Smoking status: Never Smokeless tobacco: Never Substance Use Topics Alcohol use: No Drug use: No FAMILY HISTORY Adopted: Yes Allergies: ALLERGIES Allergen Reactions Benadryl [Diphenhyd* Swelling Penicillins Shortness of Breath Xwxwmlw-Hif-Jyr Red* Contraindication-Medical Surgical History of liver failure Current Meds: glimepiride (AMARYL) 2 mg tablet^Take 1 tablet by mouth daily with breakfast.^Disp: 90 tablet^Rfl: 3 lancets (ONE T[employer]CH [employer]) 33 gauge^Test blood sugar(s) twice daily. Dx: [...] PO with supper^Disp: 450 tablet^Rfl: 1 lancets ([employer] LANCETS) 30 gauge^TEST BLOOD SUGAR(S) TEST BLOOD [...] with supplements or by diet (goal of 4221-9158 mg/day - Set up for bone mineral [...] weight loss. - LIPID PANEL BASIC Jeff Pearce, DO To ER if develops chest pain, shortness of breath, or severe worsening of symptoms. Discussed risks, benefits, alternatives, and potential side effects of medications. Patient expressed understanding and agreed with the plan. Jeff Pearce DO [address] [place] [address] documented in this encounterMccullough-[facility]12-06-2022 History of Present illness Narrative* Hi Edmond LPN - 01/17/2022 9:10 AM EST Patient presents for B-12 injection. Denies any problems at this time. Patient instructed on any SEof medication, verbalized understanding and agreed to proceed with treatment. Tolerated injection well. Hi Edmond LPN documented in this encounterMccullough-[facility]11-08-2022 History of Present illness Narrative* Jael Connolly LPN - 12/20/2021 8:58 AM EST Patient here for B12 injection. Given IM in right arm. Patient tolerated injection well. documented in this encounterMccullough-[facility]10-04-2022 History of Present illness Narrative* Jeff Pearce DO - 11/15/2021 10:14 AM EDT Patient presents with: F/U 3 Month HPI: Amado Queen is a 76 year old female who presents to the office today for review of health conditions. Concerns today Overall doing okay, still struggling with fatigue symptoms. Iron deficiency and anemia and vitamin B12 deficiency. Is taking oral iron supplements without difficulty. Also receiving IM vitamin B12 injections now monthly without difficulty. Not able to tolerate oral vitamin D supplement Ms. Queen has past history of diabetes. Since our last visit she denies excessive thirst or increased frequency of urination, chest pain or dyspnea , new or unusual visual symptoms, and low sugar/hypoglycemic reactions. Follows a diabetic diet some of the time. She is compliant with medication(s)and is tolerating med(s) without any side effects. She reports checking her glucose on a once a dayschedule with sugars in the <150 range. Patient's last HgA1C was Hemoglobin A1C (%) Date Value 11/08/2021 7.3 08/16/2021 7.0 02/15/2021 7.3 08/17/2020 7.0 ) Last Ophthalmology exam was within the past 12 months Ms. Queen reports history of hyperlipidemia. Current therapy includes diet and exercise. Denies side effects of muscle weakness or achiness. Her most recent lipid panels are reviewed. Cholesterol, Total (mg/dL) Date Value 2021 164 02/15/2021 189 HDL Cholesterol (mg/dL) Date Value 2021 33 02/15/2021 34 LDL Cholesterol (mg/dL) Date Value 2021 99 02/15/2021 122 Triglyceride (mg/dL) Date Value 2021 159 02/15/2021 165 Ms. Queen indicates a history of hypertension and states [...] WHEN PFRMD 08/25/2003 adenomatous polyp and diverticulosis. [facility] COLONOSCOPY FLX DX W/COLLJ SPEC WHEN PFRMD 09/28/2006 No polyps found. 5 yr recall. [facility] COLONOSCOPY FLX DX W/COLLJ SPEC WHEN PFRMD 02/26/2018 Colonoscopy ESOPHAGOGASTRODUODENOSCOPY TRANSORAL DIAGNOSTIC 08/31/2003 Unremarkable, negative biopsies. [facility] ESOPHAGOGASTRODUODENOSCOPY TRANSORAL DIAGNOSTIC 02/26/2018 EGD TONSILLECTOMY HX Social History Tobacco Use Smoking status: Never Smokeless tobacco: Never Substance Use Topics Alcohol use: No Drug use: No FAMILY HISTORY Adopted: Yes Allergies: ALLERGIES Allergen Reactions Benadryl [Diphenhyd* Swelling Penicillins Shortness of Breath Bskalns-Gsv-Pjz Red* Contraindication-Medical Surgical History of liver failure Current Meds: losartan (COZAAR) 50 mg tablet^Take 1 tablet by mouth once daily.^Disp: 90 tablet^Rfl: 3 Lancets (Blu[employer]anda[employer]OUCH [employer] LANCETS) lancets^Use once daily as directed [...] with the plan. Jeff Pearce DO [address] [place] [address] documented in this encounterMccullough-[facility]09-08-2022 History of Present illness Narrative* Jael Connolly LPN - 10/20/2021 9:17 AM EDT Patient presents for B-12 injection. Denies any problems at this time. Patient instructed on any SEof medication, verbalized understanding and agreed to proceed with treatment. Tolerated injection well. Jael Connolly LPN documented in this encounterMccullough-[facility]06-06-2022 History of Present illness Narrative* Hi Edmond LPN - 07/18/2021 9:34 AM EDT Patient presents for B-12 injection. Denies any problems at this time. Patient instructed on any SEof medication, verbalized understanding and agreed to proceed with treatment. Tolerated injection well. Hi Edmond LPN documented in this encounterMccull[facility]2022 History of Present illness Narrative* Hi Edmond LPN - 07/04/2021 9:36 AM EDT Patient presents for B-12 injection. Denies any problems at this time. Patient instructed on any SEof medication, verbalized understanding and agreed to proceed with treatment. Tolerated injection well. Hi Edmond LPN documented in this encounterMccullough-[facility]05-09-2022 History of Present illness Narrative* Hi Edmond LPN - 06/20/2021 2:39 PM EDT Patient presents for B-12 injection. Denies any problems at this time. Patient instructed on any SEof medication, verbalized understanding and agreed to proceed with treatment. Tolerated injection well. Hi Edmond LPN documented in this encounterMccullough-[facility]04-25-2022 History of Present illness Narrative* Hi Edmond LPN - 06/06/2021 2:50 PM EDT Patient presents for B-12 injection. Denies any problems at this time. Patient instructed on any SEof medication, verbalized understanding and agreed to proceed with treatment. Tolerated injection well. Hi Edmond LPN documented in this encounterMccullough-[facility]04-19-2022 History of Present illness Narrative* Jeff Pearce DO - 05/31/2021 7:23 AM EDT Patient presents with: Follow Up: 3 months HPI: Amado Queen is a 76 year old female who presents to the office today for review of health conditions. Concerns today: had an episode of food allergy reaction in Nov, symptoms are improved. Was seen at [facility] and given rxfor prednisone and zofran. Prednisone caused her to have very elevated blood glucose readings and aheadache- only too this for 2 days- glucose [...] help with energy, anemia, malabsorption concerns. Ms. Queen has past history of diabetes. Since our last visit she denies excessive thirst or increased frequency of urination, chest pain or dyspnea , numbness, tingling or pain in extremities, new or unusual visual symptoms and low sugar/hypoglycemic reactions. Follows a diabetic diet some of thetime. She is compliant with medication(s) and is tolerating med(s) without any side effects. She reports checking her glucose on a once a day schedule with sugars in the <200 range. Patient's [id number] was Hemoglobin A1C (%) Date Value 2021 6.9 02/15/2021 7.3 08/17/2020 7.0 ) Last Ophthalmology exam was within the past 12 months Ms. Queen reports history of hyperlipidemia. Current therapy includes diet and exercise. Denies side effects of muscle weakness or achiness. Her most recent lipid panels are reviewed. Cholesterol, Total (mg/dL) Date Value 2021 164 02/15/2021 189 HDL Cholesterol (mg/dL) Date Value 2021 33 02/15/2021 34 LDL Cholesterol (mg/dL) Date Value 2021 99 02/15/2021 122 Triglyceride (mg/dL) Date Value 2021 159 02/15/2021 165 Ms. Queen indicates a history of hypertension and states [...] WHEN PFRMD 08/25/2003 adenomatous polyp and diverticulosis. [facility] COLONOSCOPY FLX DX W/COLLJ SPEC WHEN PFRMD 09/28/2006 No polyps found. 5 yr recall. [facility] COLONOSCOPY FLX DX W/COLLJ SPEC WHEN PFRMD 02/26/2018 Colonoscopy ESOPHAGOGASTRODUODENOSCOPY TRANSORAL DIAGNOSTIC 08/31/2003 Unremarkable, negative biopsies. [facility] ESOPHAGOGASTRODUODENOSCOPY TRANSORAL DIAGNOSTIC 02/26/2018 EGD TONSILLECTOMY HX Social History Tobacco Use Smoking status: Never Smoker Smokeless tobacco: Never Used Substance Use Topics Alcohol use: No Drug use: No FAMILY HISTORY Adopted: Yes Allergies: ALLERGIES Allergen Reactions Benadryl [Diphenhyd* Swelling Penicillins Shortness of Breath Msalept-Rmb-Fgb Red* Contraindication-Medical Surgical History of liver failure [...] with the plan. Jeff Pearce DO [address] [place] [address] documented in this encounterMccullough-[facility]04-13-2022 Miscellaneous Notes* Telephone Encounter - Nell Bhakta Ma - 05/25/2021 5:34 PM EDT Patient notified and verbalized understanding. Pt asking for Caroline results. Faxed request to [facility] & will place results on PCP desk when received. Nell Bhakta Ma * Telephone Encounter - Caren Greenberg APRN.BLAYNE - 05/25/2021 5:26 PM EDT Please let Amado know that we've received [...] Pearce. Caren Greenberg APRN.BLAYNE documented in this encounterMccullough-[facility]04-06-2022 Miscellaneous Notes* Telephone Encounter - Pebbles Molina LPN - 05/18/2021 2:34 PM EDT Order faxed to [facility]. Pebbles Molina LPN * Telephone Encounter - Jahaira Harrison APRN.CNP - 05/18/2021 12:42 PM EDT Order signed. Please fax. Jahaira Harrison APRN.BLAYNE * Telephone Encounter - Pebbles Molina LPN - 05/18/2021 12:35 PM EDT Please file orders. Needs faxed to [facility]. Pebbles Molina LPN documented in this encounterMccullough-[facility]01-15-2019 History of Past illness Narrative* Problem Noted Date Resolved Date Obesity, Class III, BMI >= 40 02/26/2018 Diabetes mellitus type 2, controlled, without co mplications 05/17/2015 08/23/2020 documented as of this encounter (statuses as of 05/18/2021) [facility] of [facility] illness Narrative* Problem Noted Date Resolved Date Obesity, Class III, BMI >= 40 02/26/2018 Diabetes mellitus type 2, controlled, without co mplications 05/17/2015 08/23/2020 documented as of this encounter (statuses as of 05/31/2021) [facility] of Past illness Narrative* Problem Noted Date Resolved Date Obesity, Class III, BMI >= 40 02/26/2018 Diabetes mellitus type 2, controlled, without co mplications 05/17/2015 08/23/2020 documented as of this encounter (statuses as of 06/06/2021) [facility] of [facility] illness Narrative* Problem Noted Date Resolved Date Obesity, Class III, BMI >= 40 02/26/2018 Diabetes mellitus type 2, controlled, without co mplications 05/17/2015 08/23/2020 documented as of this encounter (statuses as of 06/15/2021) [place] [id number] History of Past illness Narrative* Problem Noted Date Resolved Date Obesity, Class III, BMI >= 40 02/26/2018 Diabetes mellitus type 2, controlled, without co mplications 05/17/2015 08/23/2020 documented as of this encounter (statuses as of 06/20/2021) [facility] illness Narrative* Problem Noted Date Resolved Date Obesity, Class III, BMI >= 40 02/26/2018 Diabetes mellitus type 2, controlled, without co mplications 05/17/2015 08/23/2020 documented as of this encounter (statuses as of 07/04/2021) [facility] Narrative* Problem Noted Date Resolved Date Obesity, Class III, BMI >= 40 02/26/2018 Diabetes mellitus type 2, controlled, without co mplications 05/17/2015 08/23/2020 documented as of this encounter (statuses as of 07/18/2021) [facility] illness Narrative* Problem Noted Date Resolved Date Obesity, Class III, BMI >= 40 02/26/2018 Peripheral neuropathy 01/21/2018 08/22/2021 Diabetes mellitus type 2, controlled, without co mplications 05/17/2015 08/23/2020 documented as of this encounter (statuses as of 10/20/2021) [facility] of [facility] illness Narrative* Problem Noted Date Resolved Date Obesity, Class III, BMI >= 40 02/26/2018 Peripheral neuropathy 01/21/2018 08/22/2021 Diabetes mellitus type 2, controlled, without co mplications 05/17/2015 08/23/2020 documented as of this encounter (statuses as of 11/15/2021) [facility] Narrative* Problem Noted Date Resolved Date Obesity, Class III, BMI >= 40 02/26/2018 Peripheral neuropathy 01/21/2018 08/22/2021 Diabetes mellitus type 2, controlled, without co mplications 05/17/2015 08/23/2020 documented as of this encounter (statuses as of 12/20/2021) [facility] Narrative* Problem Noted Date Resolved Date Obesity, Class III, BMI >= 40 02/26/2018 Peripheral neuropathy 01/21/2018 08/22/2021 Diabetes mellitus type 2, controlled, without co mplications 05/17/2015 08/23/2020 documented as of this encounter (statuses as of 01/17/2022) [facility] Narrative* Problem Noted Date Resolved Date Obesity, Class III, BMI >= 40 02/26/2018 Peripheral neuropathy 01/21/2018 08/22/2021 Diabetes mellitus type 2, controlled, without co mplications 05/17/2015 08/23/2020 documented as of this encounter (statuses as of 02/21/2022) [facility] Narrative* Problem Noted Date Resolved Date Obesity, Class III, BMI >= 40 02/26/2018 Peripheral neuropathy 01/21/2018 08/22/2021 Diabetes mellitus type 2, controlled, without co mplications 05/17/2015 08/23/2020 documented as of this encounter (statuses as of 03/20/2022) [facility] Narrative* Problem Noted Date Resolved Date Obesity, Class III, BMI >= 40 02/26/2018 Peripheral neuropathy 01/21/2018 08/22/2021 Diabetes mellitus type 2, controlled, without co mplications 05/17/2015 08/23/2020 documented as of this encounter (statuses as of 03/22/2022) [facility] Narrative* Problem Noted Date Resolved Date Obesity, Class III, BMI >= 40 02/26/2018 Peripheral neuropathy 01/21/2018 08/22/2021 Diabetes mellitus type 2, controlled, without co mplications 05/17/2015 08/23/2020 documented as of this encounter (statuses as of 03/25/2022) [facility] Narrative* Problem Noted Date Resolved Date Obesity, Class III, BMI >= 40 02/26/2018 Peripheral neuropathy 01/21/2018 08/22/2021 Diabetes mellitus type 2, controlled, without co mplications 05/17/2015 08/23/2020 documented as of this encounter (statuses as of 04/03/2022) [facility] Narrative* Problem Noted Date Resolved Date Obesity, Class III, BMI >= 40 02/26/2018 Peripheral neuropathy 01/21/2018 08/22/2021 Diabetes mellitus type 2, controlled, without co mplications 05/17/2015 08/23/2020 documented as of this encounter (statuses as of 04/18/2022) [facility] Narrative* Problem Noted Date Resolved Date Obesity, Class III, BMI >= 40 02/26/2018 Peripheral neuropathy 01/21/2018 08/22/2021 Diabetes mellitus type 2, controlled, without co mplications 05/17/2015 08/23/2020 documented as of this encounter (statuses as of 04/21/2022) [facility] Narrative* Problem Noted Date Resolved Date Obesity, Class III, BMI >= 40 02/26/2018 Peripheral neuropathy 01/21/2018 08/22/2021 Diabetes mellitus type 2, controlled, without co mplications 05/17/2015 08/23/2020 documented as of this encounter (statuses as of 05/15/2022) [facility] Narrative* Problem Noted Date Resolved Date Obesity, Class III, BMI >= 40 02/26/2018 Peripheral neuropathy 01/21/2018 08/22/2021 Diabetes mellitus type 2, controlled, without co mplications 05/17/2015 08/23/2020 documented as of this encounter (statuses as of 05/26/2022) [facility] Narrative* Problem Noted Date Resolved Date Obesity, Class III, BMI >= 40 02/26/2018 Peripheral neuropathy 01/21/2018 08/22/2021 Diabetes mellitus type 2, controlled, without co mplications 05/17/2015 08/23/2020 documented as of this encounter (statuses as of 06/12/2022) [facility] Narrative* Problem Noted Date Resolved Date Obesity, Class III, BMI >= 40 02/26/2018 Peripheral neuropathy 01/21/2018 08/22/2021 Diabetes mellitus type 2, controlled, without co mplications 05/17/2015 08/23/2020 documented as of this encounter (statuses as of 07/11/2022) [facility] History of Past illness Narrative* Problem Noted Date Resolved Date Obesity, Class III, BMI >= 40 02/26/2018 Peripheral neuropathy 01/21/2018 08/22/2021 Diabetes mellitus type 2, controlled, without co mplications 05/17/2015 08/23/2020 documented as of this encounter (statuses as of 08/07/2022) [facility] History of Past illness Narrative* Problem [...] of this encounter (statuses as of 09/19/2022) [facility] History of Past illness Narrative* Problem [...] of this encounter (statuses as of 10/02/2022) [facility] History of Past illness Narrative* Problem [...] of this encounter (statuses as of 10/05/2022) [facility] History of Past illness Narrative* Problem [...] of this encounter (statuses as of 10/17/2022) [facility] History of Past illness Narrative* Problem [...] of this encounter (statuses as of 11/03/2022) [facility] History of Past illness Narrative* Problem [...] of this encounter (statuses as of 11/17/2022) [facility] History of Past illness Narrative* Problem [...] of this encounter (statuses as of 11/30/2022) [facility] History of Past illness Narrative* Problem [...] of this encounter (statuses as of 12/13/2022) [facility] History of Past illness Narrative* Problem [...] of this encounter (statuses as of 12/28/2022) [facility] History of Past illness Narrative* Problem [...] of this encounter (statuses as of 01/25/2023) [facility] Diagnosis Encounter for screening mammogram for malignant neoplasm of breast- Primary Other screening mammogram [facility] Diagnosis Controlled type 2 diabetes mellitus without complication, without long-term current use of insulin (HCC)- Primary Vitamin B12 deficiency Other B-complex deficiencies Malabsorption syndrome Unspecified intestinal malabsorption Other vitamin B12 deficiency anemia Fatigue, unspecified type Other iron deficiency anemia Hypothyroidism, acquired Unspecified hypothyroidism Hypertriglyceridemia Pure hyperglyceridemia [facility] Diagnosis Vitamin B12 deficiency- Primary Other B-complex deficiencies [facility] Diagnosis Vitamin B12 deficiency- Primary Other B-complex deficiencies [facility] Diagnosis Vitamin B12 deficiency- Primary Other B-complex deficiencies [facility] Vitamin B12 deficiency- Primary Other B-complex deficiencies [facility] Diagnosis Vitamin B12 deficiency- Primary Other B-complex deficiencies [facility] Diagnosis Uncontrolled type 2 diabetes mellitus with hyperglycemia (HCC)- Primary Vitamin B12 deficiency Other B-complex deficiencies Controlled type 2 diabetes mellitus without complication, without long-term current use of insulin (HCC) Hypothyroidism, acquired Unspecified hypothyroidism Other vitamin B12 deficiency anemia Iron deficiency Iron deficiency anemia, unspecified Vitamin D deficiency Unspecified vitamin D deficiency documented [facility] Diagnosis Vitamin B12 deficiency- Primary Other B-complex deficiencies documented in this [facility] Diagnosis Controlled type 2 diabetes mellitus [...] Hypertriglyceridemia Pure hyperglyceridemia documented in this [facility] Diagnosis Vitamin B12 deficiency- Primary Other B-complex deficiencies documented [facility] this [facility] Diagnosis RUQ abdominal pain- Primary Abdominal pain, right upper quadrant Calculus of gallbladder without cholecystitis without obstruction Calculus of gallbladder without mention of cholecystitis or obstruction Fatty liver Other chronic nonalcoholic liver disease [facility] Diagnosis RUQ abdominal pain Abdominal pain, [...] nonalcoholic liver disease [facility] Diagnosis Essential hypertension with goal blood [...] nonalcoholic liver disease documented [facility] this [facility] Diagnosis Post-op pain- Primary Other acute postoperative pain S/P laparoscopic cholecystectomy Other postprocedural status documented [facility] this [facility] Diagnosis Aftercare following surgery- Primary Encounter for other specified aftercare documented in this encounter [facility] Diagnosis Vitamin B12 deficiency- Primary Other B-complex deficiencies documented in this encounter [facility] Diagnosis Controlled type 2 diabetes mellitus [...] deficiency anemia, unspecified documented in this [facility] Diagnosis Other vitamin B12 deficiency anemia- Primary documented in this encounter [facility] Diagnosis Other vitamin B12 deficiency anemia- Primary documented in this encounter [facility] Diagnosis Vitamin B12 deficiency- Primary Other B-complex deficiencies documented in this encounter [facility] Diagnosis Vitamin B12 deficiency- Primary Other B-complex deficiencies documented in this encounter [facility] Diagnosis Vitamin B12 deficiency- Primary Other B-complex deficiencies [facility] Diagnosis Controlled type 2 diabetes [...] nonalcoholic liver disease documented in this encounter [facility] Diagnosis Vitamin B12 deficiency- Primary Other B-complex deficiencies documented [facility] this [facility] Diagnosis 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 S/P colectomy Other postprocedural status Nausea Nausea alone documented in this encounter [facility] for referral (narrative)* Diagnostic Procedure Only (Routine) - Pending Review Specialty Diagnoses / Procedures Referred By Angela carey Referred To Contact [facility] Diagnoses Encounter for screening mammogram for malignant neoplasm of breast Procedures CAROLINE SCREENING W FLOR SCREENING DIGITAL BREAST TOMOSYNTHESIS BI SCREENING MAMMOGRAPHY BI 2-VIEW BREAST INC Jahaira Pineda, OIL PIPELINE OPERATOR.ACCOUNT OFFICER [address] [place] [address] [facility] [address] [place] [address] Referral ID Status Reason Start Date Expiration Date Visits Requested Visits Authorized [id number] Pending Review Auto-Generat ed Referral 05/18/2021 06/17/2022 1 1 [facility] Diagnostic Procedure Only (Routine) - Pending Review Specialty Diagnoses / Procedures Referred By Angela t Referred To Contact [facility] Diagnoses Encounter for screening mammogram for malignant neoplasm of breast Procedures CAROLINE SCREENING SCREENING MAMMOGRAPHY BI 2-VIEW BREAST INC CAD Jeff Pearce, [address] [place] [address] [facility] [address] [place] [address] Referral ID Status Reason Start Date Expiration Date Visits Requested Visits Authorized [id number] Pending Review Auto-Generat ed Referral 02/20/2022 03/22/2023 1 1 [facility] Summary Purpose Family History No Family History Records FoundNo Family History Records FoundNo Family History Records Found Advance Directives Documents on File Type Date 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 Advance Directive(s) 04/23/2019 11:29 AM Advance Directive(s) 02/26/2018 8:33 AM Advance Directive(s) 02/22/2018 7:13 PM Documents on File Type Date Recorded 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 Advance Directive(s) 04/23/2019 11:29 AM Advance Directive(s) 02/26/2018 8:33 AM Advance Directive(s) 02/22/2018 7:13 PM Documents on File Type Date Recorded 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 Advance Directive(s) 04/23/2019 11:29 AM Documents on File Type Date Recorded 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 Advance Directive(s) 04/23/2019 11:29 AM [...] liver Procedures CONSULT TO GENERAL SURGERY OFFICE/OUTPATIENT COMMUNITY [facility]ALTH MDM 60-74 MINUTES Jeff Pearce L, DO [address] [place] [address] Referral ID Status Reason Start Date Expiration Date Visits Requested Visits Authorized [id number] Authorized PCP Requested Referral 03/21/2022 03/21/2023 1 1 Additional Source Comments INFORMATION SOURCE (unrecogn ized section and content) DATE CREATED AUTHOR AUTHOR'S ORGANIZ ATION 04/10/2022 [facility] DATE CREATED AUTHOR AUTHOR'S ORGANIZ ATION 03/23/2023 [facility] Source Comments (unrecognize d section and content) In the event this informatio n is protected by the Federal Confidentiality of Alcohol and Drug Abuse Patient Records regulations: The Federal rules restrict any use of the information to criminally investigate or prosecute any alcohol or drug abuse patient.[facility] the event this information is protected by the Federal Confidentiality of Alcohol and Drug Abuse Patient Records regulations: The Federal rules restrict any use of the information to criminally investigate or prosecute any alcohol or drug abuse patient.[facility] the event this information is protected by the Federal Confidentiality of Alcohol and Drug Abuse Patient Records regulations: The Federal rules restrict any use of the information to criminally investigate or prosecute any alcohol or drug abuse patient.[facility] the event this information is protected by the Federal Confidentiality of Alcohol and Drug Abuse Patient Records regulations: The Federal rules restrict any use of the information to criminally investigate or prosecute any alcohol or drug abuse patient.[facility] the event this information is protected by the Federal Confidentiality of Alcohol and Drug Abuse Patient Records regulations: The Federal rules restrict any use of the information to criminally investigate or prosecute any alcohol or drug abuse patient.[facility] the event this information is protected by the Federal Confidentiality of Alcohol and Drug Abuse Patient Records regulations: The Federal rules restrict any use of the information to criminally investigate or prosecute any alcohol or drug abuse patient.[facility] the event this information is protected by the Federal Confidentiality of Alcohol and Drug Abuse Patient Records regulations: The Federal rules restrict any use of the information to criminally investigate or prosecute any alcohol or drug abuse patient.[facility] the event this information is protected by the Federal Confidentiality of Alcohol and Drug Abuse Patient Records regulations: The Federal rules restrict any use of the information to criminally investigate or prosecute any alcohol or drug abuse patient.[facility] the event this information is protected by the Federal Confidentiality of Alcohol and Drug Abuse Patient Records regulations: The Federal rules restrict any use of the information to criminally investigate or prosecute any alcohol or drug abuse patient.[facility] the event this information is protected by the Federal Confidentiality of Alcohol and Drug Abuse Patient Records regulations: The Federal rules restrict any use of the information to criminally investigate or prosecute any alcohol or drug abuse patient.[facility] the event this information is protected by the Federal Confidentiality of Alcohol and Drug Abuse Patient Records regulations: The Federal rules restrict any use of the information to criminally investigate or prosecute any alcohol or drug abuse patient.[facility] the event this information is protected by the Federal Confidentiality of Alcohol and Drug Abuse Patient Records regulations: The Federal rules restrict any use of the information to criminally investigate or prosecute any alcohol or drug abuse patient.[facility] the event this information is protected by the Federal Confidentiality of Alcohol and Drug Abuse Patient Records regulations: The Federal rules restrict any use of the information to criminally investigate or prosecute any alcohol or drug abuse patient.[facility] the event this information is protected by the Federal Confidentiality of Alcohol and Drug Abuse Patient Records regulations: The Federal rules restrict any use of the information to criminally investigate or prosecute any alcohol or drug abuse patient.[facility] the event this information is protected by the Federal Confidentiality of Alcohol and Drug Abuse Patient Records regulations: The Federal rules restrict any use of the information to criminally investigate or prosecute any alcohol or drug abuse patient.[facility] the event this information is protected by the Federal Confidentiality of Alcohol and Drug Abuse Patient Records regulations: The Federal rules restrict any use of the information to criminally investigate or prosecute any alcohol or drug abuse patient.[facility] the event this information is protected by the Federal Confidentiality of Alcohol and Drug Abuse Patient Records regulations: The Federal rules restrict any use of the information to criminally investigate or prosecute any alcohol or drug abuse patient.[facility] the event this information is protected by the Federal Confidentiality of Alcohol and Drug Abuse Patient Records regulations: The Federal rules restrict any use of the information to criminally investigate or prosecute any alcohol or drug abuse patient.[facility] the event this information is protected by the Federal Confidentiality of Alcohol and Drug Abuse Patient Records regulations: The Federal rules restrict any use of the information to criminally investigate or prosecute any alcohol or drug abuse patient.[facility]In the event this information is protected by the Federal Confidentiality of Alcohol and Drug Abuse Patient Records regulations: The Federal rules restrict any use of the information to criminally investigate or prosecute any alcohol or drug abuse patient.[facility]In the event this information is protected by the Federal Confidentiality of Alcohol and Drug Abuse Patient Records regulations: The Federal rules restrict any use of the information to criminally investigate or prosecute any alcohol or drug abuse patient.[facility]In the event this information is protected by the Federal Confidentiality of Alcohol and Drug Abuse Patient Records regulations: The Federal rules restrict any use of the information to criminally investigate or prosecute any alcohol or drug abuse patient.[facility]In the event this information is protected by the Federal Confidentiality of Alcohol and Drug Abuse Patient Records regulations: The Federal rules restrict any use of the information to criminally investigate or prosecute any alcohol or drug abuse patient.[facility] the event this information is protected by the Federal Confidentiality of Alcohol and Drug Abuse Patient Records regulations: The Federal rules restrict any use of the information to criminally investigate or prosecute any alcohol or drug abuse patient.[facility] the event this information is protected by the Federal Confidentiality of Alcohol and Drug Abuse Patient Records regulations: The Federal rules restrict any use of the information to criminally investigate or prosecute any alcohol or drug abuse patient.[facility] the event this information is protected by the Federal Confidentiality of Alcohol and Drug Abuse Patient Records regulations: The Federal rules restrict any use of the information to criminally investigate or prosecute any alcohol or drug abuse patient.[facility]In the event this information is protected by the Federal Confidentiality of Alcohol and Drug Abuse Patient Records regulations: The Federal rules restrict any use of the information to criminally investigate or prosecute any alcohol or drug abuse patient.[facility]In the event this information is protected by the Federal Confidentiality of Alcohol and Drug Abuse Patient Records regulations: The Federal rules restrict any use of the information to criminally investigate or prosecute any alcohol or drug abuse patient.[facility]In the event this information is protected by the Federal Confidentiality of Alcohol and Drug Abuse Patient Records regulations: The Federal rules restrict any use of the information to criminally investigate or prosecute any alcohol or drug abuse patient.[facility]In the event this information is protected by the Federal Confidentiality of Alcohol and Drug Abuse Patient Records regulations: The Federal rules restrict any use of the information to criminally investigate or prosecute any alcohol or drug abuse patient.[facility]In the event this information is protected by the Federal Confidentiality of Alcohol and Drug Abuse Patient Records regulations: The Federal rules restrict any use of the information to criminally investigate or prosecute any alcohol or drug abuse patient.[facility]In the event this information is protected by the Federal Confidentiality of Alcohol and Drug Abuse Patient Records regulations: The Federal rules restrict any use of the information to criminally investigate or prosecute any alcohol or drug abuse patient.[facility]In the event this information is protected by the Federal Confidentiality of Alcohol and Drug Abuse Patient Records regulations: The Federal rules restrict any use of the information to criminally investigate or prosecute any alcohol or drug abuse patient.[facility]In the event this information is protected by the Federal Confidentiality of Alcohol and Drug Abuse Patient Records regulations: The Federal rules restrict any use of the information to criminally investigate or prosecute any alcohol or drug abuse patient.[facility]In the event this information is protected by the Federal Confidentiality of Alcohol and Drug Abuse Patient Records regulations: The Federal rules restrict any use of the information to criminally investigate or prosecute any alcohol or drug abuse patient.[facility]In the event this information is protected by the Federal Confidentiality of Alcohol and Drug Abuse Patient Records regulations: The Federal rules restrict any use of the information to criminally investigate or prosecute any alcohol or drug abuse patient.[facility]In the event this information is protected by the Federal Confidentiality of Alcohol and Drug Abuse Patient Records regulations: The Federal rules restrict any use of the information to criminally investigate or prosecute any alcohol or drug abuse patient.[facility] Reason for Visit (unrecogniz ed section and content) Reason Comments Follow Up 3 months Reason Comments B-12 Injection Reason Comments Results Reason Comments B 12 injection Reason Comments F/U 3 Month Reason Comments Imm/Inj B-12 injection Reason Comments F/U 3 Month Reason Comments Results Reason Comments Consult Gallbladder US Specialty Diagnoses / Procedures Referred By Angela carey Referred To Contact General Surgery Diagnoses RUQ abdominal pain Calculus of gallbladder without cholecystitis without obstruction Fatty liver Procedures CONSULT TO GENERAL SURGERY OFFICE/OUTPATIENT [facility] MDM 60-74 MINUTES Jeff Pearce, DO [address] [place] [address] Referral ID Status Reason Start Date Expiration Date V isits Requested Visits Authorized [id number] Closed PCP Requested Referral 03/21/2022 03/21/2023 1 1 Reason Comments Consult Reason Comments Surgical Follow Up Lap carter post op Specialty Diagnoses / Procedures Referred By Angela t Referred To Contact General Surgery / GENERAL SURGERY Diagnoses post op lap carter, wanted sooner appt Procedures OFFICE/OUTPATIENT ESTABLISHED HIGH MDM 40-54 MIN EST DDI PATIENT Amado Campos PA-C [address] [place] [address] Amado Campos PA-C [address] 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 Relationship Specialty Start Date End Date Jeff Pearce DO [address] [place] [address] PCP - General Family Practice 09/28/15 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 Relationship Specialty Start Date End Date Jeff Pearce DO [address] [place] [address] PCP - General Family Practice 09/28/15 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 Relationship Specialty Start Date End Date Jeff Pearce DO [address] [facility] [place] [address] PCP - General Family Practice 09/28/15 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 Relationship Specialty Start Date End Date Jeff Pearce DO [address] [facility] [place] [address] PCP - General Family Practice 09/28/15 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 Relationship Specialty Start Date End Date Jeff Pearce DO [address] [facility] [place] [address] PCP - General Family Practice 09/28/15 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 Relationship Specialty Start Date End Date Pearce, Jeff L, DO [address] [place] [address] PCP - General Family Practice 09/28/15 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 Relationship Specialty Start Date End Date Jeff Pearce, DO [address] [place] [address] PCP - General Family Practice 09/28/15 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 Relationship Specialty Start Date End Date Jeff Pearce, DO [address] [place] [address] PCP - General Family Medicine 09/28/15 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 Relationship Specialty Start Date End Date Jeff Pearce, DO [address] [place] [address] PCP - General Family Medicine 09/28/15 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 Relationship Specialty Start Date End Date Jeff Pearce, DO [address] [place] [address] PCP - General Family Medicine 09/28/15 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 Relationship Specialty Start Date End Date Jeff Pearce, DO [address] [place] [address] PCP - General Family Medicine 09/28/15 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 Relationship Specialty Start Date End Date Jeff Pearce, DO [address] [place] [address] PCP - General Family Medicine 09/28/15 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 Relationship Specialty Start Date End Date Jeff Pearce, DO [address] [place] [address] PCP - General Family Medicine 09/28/15 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 Relationship Specialty Start Date End Date Jeff Pearce, DO [address] [place] [address] PCP - General Family Medicine 09/28/15 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 Relationship Specialty Start Date End Date Jeff Pearce, DO [address] [place] [address] PCP - General Family Medicine 09/28/15 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 Relationship Specialty Start Date End Date Jeff Pearce, DO [address] [place] [address] PCP - General Family Medicine 09/28/15 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 Relationship Specialty Start Date End Date Jeff Pearce, DO [address] [place] [address] PCP - General Family Medicine 09/28/15 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 Relationship Specialty Start Date End Date Jeff Pearce, DO [address] [place] [address] PCP - General Family Medicine 09/28/15 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 Relationship Specialty Start Date End Date Jeff Pearce, DO [address] [place] [address] PCP - General Family Medicine 09/28/15 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 Relationship Specialty Start Date End Date Jeff Pearce, DO [address] [place] [address] PCP - General Family Medicine 09/28/15 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 Relationship Specialty Start Date End Date Jeff Pearce DO [address] [place] [address] PCP - General Family Medicine 09/28/15 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 Relationship Specialty Start Date End Date Jeff Pearce DO [address] [place] [address] PCP - General Family Medicine 09/28/15 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 Relationship Specialty Start Date End Date Jeff Pearce DO [address] [place] [address] PCP - General Family Medicine 09/28/15 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 Relationship Specialty Start Date End Date Jeff Pearce DO [address] [place] [address] PCP - General Family Medicine 09/28/15 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 Relationship Specialty Start Date End Date Jeff Pearce DO [address] [place] [address] PCP - General Family Medicine 09/28/15 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 Relationship Specialty Start Date End Date Jeff Pearce DO [address] [place] [address] PCP - General Family Medicine 09/28/15 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 Relationship Specialty Start Date End Date Jeff Pearce DO [address] [place] [address] PCP - General Family Medicine 09/28/15 Tiffany Evangelista, ROBERT [address] [id number] [facility] [employer] 03/15/23 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 Relationship Specialty Start Date End Date Jeff Pearce DO [address] [place] [address] PCP - General Family Medicine 09/28/15 Tiffany Evangelista, ROBERT [address] [place] [address] Primary Care [employer] Internship 03/15/23 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 Relationship Specialty Start Date End Date Jeff Pearce DO [address] [place] [address] PCP - General Family Medicine 09/28/15 Tiffany Evangelista RN [address] [place] [address] Primary Care [employer] Buying Internship 03/15/23 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 Relationship Specialty Start Date End Date Jeff Pearce DO [address] [place] [address] PCP - General Family Medicine 09/28/15 Tiffany Evangelista, ROBERT [address] [place] [address] Primary Care [employer]ship 03/15/23 Active Administered Medications - up to 3 most recent administrations Administered Medications (un recognized section and content) Active Administered Medications - up to 3 most recent administrations Medication Order MAR Action Action Date Dose Rate Site cyanocobalamin 1,000 mcg injection 1,000 mcg, INTRAMUSCULAR, EVERY 2 WEEKS, 26 doses, First dose on Sun09/05/22 at 1130, Last dose on Sun08/21/23 at 1130 Given 04/04/2023 9:45 AM EST 1,000 mcg Deltoid, Right FOR RECORDS PERTAINING TO PATIENTS WHO ARE [...] BE BASED ON THE PRIMARY CLINICAL RECORDS. [employer] provides no warranty or guarantee of the accuracy or completeness of information in this document.
== END | disposition home or self-care (01) ==
LOC: CT 14:38
PROVIDERS: PCP Student in an Organized Health Care Education/Training Program; Referring Provider Surgery; Visit Provider Surgery
DX: C18.2 Malignant neoplasm of ascending colon (principal)
CPT/HCPCS: 71260; Q9967; A4216

== ENCOUNTER → 2023-04-11 | Outpatient (CLI) | payer MEDICARE, SELFPAY ==
[2023-04-11 11:53] LABS: Hematocrit 37.3 % (37-47); Mean Corp Hgb Conc 29.5 g/dL (32-36); Mean Corpuscular Hgb 23.1 pg (27.0-32.0); Mean Corpuscular Volume 78.2 fL (81-99); Platelet Count 356 K/mm3 (150-450); RBC Distribution Width CV 19.3 % (11.6-14.6); RBC Distribution Width SD 53.8 fl (35.1-43.9); Red Blood Count 4.77 M/mm3 (4.2-5.4); White Blood Count 8.9 K/mm3 (4.4-11.0)
[2023-04-11 12:34] LABS: Ferritin 39 ng/mL (8-252)
--- OUTSIDE RECORDS SUMMARY | 2023-04-11 19:31 | XMS RPT_ITS | CCD ---
Author Name Unknown Address [address] [place] [address] Organization [facility] Care Team Providers Care Logistical Engineer Name Role Phone TIFFANY RONQUILLO Admitting Unavailable TIFFANY RONQUILLO Attending Unavailable PearceJeff obregon DO Primary Care Provider PearceJeff montez DO Primary Care Provider Pearce DOJeff Primary Care Provider Pearce DOJeff Primary Care Provider RODRIGUEZ LOUIE Admitting Unavailable RODRIGUEZ LOUIE Attending Unavailable PEARCE, JEFF L Primary Care Unavailable Tiffany Evangelista RN Unavailable Unavailable PEARCE, JEFF L Primary Care Unavailable PEARCE, JEFF L Primary Care Unavailable PEARCE, JEFF L Primary Care Unavailable PEARCE, JEFF L Primary Care Unavailable PEARCE, JEFF L Primary Care Unavailable Amado Campos Attending Unavailable PEARCE, JEFF L Primary Care [...] JEFF L Primary Care Unavailable PEARCE, JEFF Cedric Primary Care Unavailable PORTIA JEFF Cedric Attending Unavailable JEFF PEARCE Primary Care Unavailable PORTIA JEFF Cedric Referring Unavailable JEFF PEARCE Primary Care Unavailable PORTIA JEFF Cedric Primary Care Unavailable JEFF PEARCE Primary Care Unavailable JEFF PEARCE Primary Care Unavailable JEFF PEARCE Attending Unavailable JEFF PEARCE Primary Care Unavailable PORTIA JEFF Cedric Referring Unavailable Allergies Allergy Classification Reported Allergen(s) Allergy Type Date of Onset Reaction(s) Facility (20 sources) diphenhydrAMINE ; Translations: [DIPHENHYDRAMIN E HCL] Drug Allergy 6 Swelling [facility]ository (20 sources) Hmg-Coa Reductase Inhibitors (Statins); Translations: [ONXYAGZ-ZPN-YC A REDUCTASE INHIBITORS] Propensity to adverse reactions to drug (disorder) 6 Contraindicatio n-Medical Surgical [facility]ository (20 sources) Penicillins; Translations: [PENICILLINS] Propensity to adverse reactions to drug (disorder) 6 Shortness of Breath [facility] Medications Current Medications Medication Drug [...] classified] Onset: 05-26-2022 Chronic Other liver diseases (1 source) Fatty (change of) liver, not elsewhere classified; Translations: [Fatty liver] Onset: 04-05-2022 Chronic Other nervous system disorders (7 sources) [...] pain; Translations: [Right upper quadrant pain] Onset: 04-05-2022 Episodic Biliary tract disease (20 sources) Cholelithiasis without obstruction; Translations: [Calculus of gallbladder without cholecystitis without obstruction] Onset: 04-05-2022 Episodic Deficiency and other anemia (20 sources) Anemia; Translations: [Anemia, unspecified] Onset: 05-31-2021 05-31-2021 Episodic Deficiency and other anemia (2 sources) Other vitamin B12 deficiency anemias; Translations: [Other vitamin B12 deficiency anemia] Onset: 05-31-2021 Episodic Gastrointestinal hemorrhage [...] alkaline phosphatase level] Onset: 09-05-2022 Episodic Other non-traumatic joint disorders (20 sources) Chronic ankle pain; Translations: [Pain in right ankle and joints of right foot] Onset: 08-25-2020 08-25-2020 Episodic Other non-traumatic joint disorders (20 sources) Hip pain; Translations: [Pain in right hip] Onset: 08-25-2020 08-25-2020 Episodic Spondylosis; intervertebral disc disorders; other back problems (20 sources) Chronic low back pain; Translations: [Chronic midline low back pain without sciatica] Onset: 08-25-2020 08-25-2020 Episodic Results Test Name Value Interpretation Reference Range Facil ity Vital Signs Date Time Vital Sign Value Performing Clinician Bird burroughs 03-19-2023 10:38-0500 Body weight 76.3 kg Caren Greenberg APRN.CNP Work Phone: [facility] 03-19-2023 10:38-0500 Diastolic blood pressure 64 mm[Hg] Caren Greenberg APRN.BROACHING MACHINE SET UP OPERATOR Work Phone: [facility] 03-19-2023 10:38-0500 Heart rate 85 /min Caren Greenberg APRN.BROACHING MACHINE SET UP OPERATOR Work Phone: [facility] 03-19-2023 10:38-0500 Respiratory rate 16 /min Caren Greenberg APRN.BROACHING MACHINE SET UP OPERATOR Work Phone: [facility] 03-19-2023 10:38-0500 SaO2% (BldA) [Mass fraction] 95 % Caren Greenberg APRN.CNP Work Phone: [facility] 03-19-2023 10:38-0500 Systolic blood pressure 110 mm[Hg] Caren Greenberg OLGAAlannaBROACHING MACHINE SET UP OPERATOR Work Phone: [facility] 12-08-2022 10:00-0400 Body temperature 96.4 [degF] Jeff Pearce DO Work Phone: [facility] 12-08-2022 10:00-0400 Body weight 82.56 kg Jeff Pearce DO Work Phone: [facility] 12-08-2022 10:00-0400 Diastolic blood pressure 60 mm[Hg] Jeff Pearce DO Work Phone: [facility] 12-08-2022 10:00-0400 Heart rate 88 /min Jeff Pearce DO Work Phone: [facility] 12-08-2022 10:00-0400 Respiratory rate 16 /min Jeff Pearce DO Work Phone: [facility] 12-08-2022 10:00-0400 Systolic blood pressure 116 mm[Hg] Jeff Pearce DO Work Phone: [facility] 05-24-2022 16:10-0400 Body temperature 97.39 [degF] Jeff Pearce DO Work Phone: [facility] 05-24-2022 16:10-0400 Body weight 80.29 kg Jeff Pearce DO Work Phone: [facility] 05-24-2022 16:10-0400 Diastolic blood pressure 78 mm[Hg] Jeff Pearce DO Work Phone: [facility] 05-24-2022 16:10-0400 Heart rate 80 /min Jeff Pearce DO Work Phone: [facility] 05-24-2022 16:10-0400 Respiratory rate 16 /min Jeff Pearce DO Work Phone: [facility] 05-24-2022 16:10-0400 Systolic blood pressure 150 mm[Hg] Jeff Pearce DO Work Phone: [facility] 04-13-2022 09:01-0500 Body temperature 97.59 [degF] Amado [place] PA-C Work Phone: [facility] 04-13-2022 09:01-0500 Body weight 82.64 kg Amado Beth PA-C Work Phone: [facility] 04-13-2022 09:01-0500 Diastolic blood pressure 66 mm[Hg] Amado [place] PA-C Work Phone: [facility] 04-13-2022 09:01-0500 Heart rate 118 /min Amado Beth PA-C Work Phone: [facility] 04-13-2022 09:01-0500 SaO2% (BldA) [Mass fraction] 96 % Amado [place] PA-C Work Phone: [facility] 04-13-2022 09:01-0500 Systolic blood pressure 138 mm[Hg] Amado [place] PA-C Work Phone: [facility] 04-10-2022 13:38-0500 Body height 160 cm Amado Beth PA-C Work Phone: [facility] 04-10-2022 13:38-0500 Body temperature 97.2 [degF] Amado Beth PA-C Work Phone: [facility] 04-10-2022 13:38-0500 Body weight 83.92 kg Amado [place] PA-C Work Phone: [facility] 04-10-2022 13:38-0500 Diastolic blood pressure 58 mm[Hg] Amado [place] PA-C Work Phone: [facility] 04-10-2022 13:38-0500 Heart rate 117 /min Amado Beth PA-C Work Phone: [facility] 04-10-2022 13:38-0500 SaO2% (BldA) [Mass fraction] 93 % Amado [place] PA-C Work Phone: [facility] 04-10-2022 13:38-0500 Systolic blood pressure 118 mm[Hg] Amado [place] PA-C Work Phone: [facility] 04-03-2022 11:11-0500 Body height 160 cm Pacc 1 Work Phone: [facility] 04-03-2022 11:11-0500 Body temperature 97.59 [degF] Pacc 1 Work Phone: [facility] 04-03-2022 11:11-0500 Body weight 83.92 kg Pacc 1 Work Phone: [facility] 04-03-2022 11:11-0500 Diastolic blood pressure 70 mm[Hg] Pacc 1 Work Phone: [facility] 04-03-2022 11:11-0500 Heart rate 91 /min Pacc 1 Work Phone: [facility] 04-03-2022 11:11-0500 Respiratory rate 14 /min Pacc 1 Work Phone: [facility] 04-03-2022 11:11-0500 SaO2% (BldA) [Mass fraction] 97 % Pacc 1 Work Phone: [facility] 04-03-2022 11:11-0500 Systolic blood pressure 118 mm[Hg] Pacc 1 Work Phone: [facility] 03-24-2022 10:27-0500 Body height 160 cm Rodriguez Louie MD Work Phone: [facility] 03-24-2022 10:27-0500 Body temperature 96.8 [degF] Rodriguez Louie MD Work Phone: [facility] 03-24-2022 10:27-0500 Body weight 84.37 kg Rodriguez Louie MD Work Phone: [facility] 03-24-2022 10:27-0500 Diastolic blood pressure 64 mm[Hg] Rodriguez Louie MD Work Phone: [facility] 03-24-2022 10:27-0500 Heart rate 113 /min Rodriguez Louie MD Work Phone: [facility] 03-24-2022 10:27-0500 SaO2% (BldA) [Mass fraction] 98 % Rodriguez Louie MD Work Phone: [facility] 03-24-2022 10:27-0500 Systolic blood pressure 124 mm[Hg] Rodriguez Louie MD Work Phone: [facility] 02-20-2022 09:30-0500 Body temperature 97.11 [degF] Jeff Pearce DO Work Phone: [facility] 02-20-2022 09:30-0500 Body weight 86.18 kg Jeff Pearce DO Work Phone: [facility] 02-20-2022 09:30-0500 Diastolic blood pressure 60 mm[Hg] Jeff Pearce DO Work Phone: [facility] 02-20-2022 09:30-0500 Heart rate 80 /min Jeff Pearce DO Work Phone: [facility] 02-20-2022 09:30-0500 Respiratory rate 16 /min Jeff Pearce DO Work Phone: [facility] 02-20-2022 09:30-0500 Systolic blood pressure 124 mm[Hg] Jeff Pearce DO Work Phone: [facility] 11-15-2021 09:11-0400 Body temperature 96.3 [degF] Jeff Pearce DO Work Phone: [facility] 11-15-2021 09:11-0400 Body weight 87.54 kg Jeff Pearce DO Work Phone: [facility] 11-15-2021 09:11-0400 Diastolic blood pressure 60 mm[Hg] Jeff Pearce DO Work Phone: [facility] 11-15-2021 09:11-0400 Heart rate 88 /min Jeff Pearce DO Work Phone: [facility] 11-15-2021 09:11-0400 Respiratory rate 16 /min Jeff Pearce DO Work Phone: [facility] 11-15-2021 09:11-0400 Systolic blood pressure 124 mm[Hg] Jeff Pearce DO Work Phone: [facility] 05-30-2021 09:15-0400 Body temperature 97 [degF] Jeff Pearce DO Work Phone: [facility] 05-30-2021 09:15-0400 Body weight 92.08 kg Jeff Pearce DO Work Phone: [facility] 05-30-2021 09:15-0400 Diastolic blood pressure 70 mm[Hg] Jeff Pearce DO Work Phone: [facility] 05-30-2021 09:15-0400 Heart rate 80 /min Jeff Pearce DO Work Phone: [facility] 05-30-2021 09:15-0400 Respiratory rate 20 /min Jeff Pearce DO Work Phone: [facility] 05-30-2021 09:15-0400 Systolic blood pressure 110 mm[Hg] Jeff Pearce DO Work Phone: [facility] Encounters Encounter Date Encounter Type Care Provider Facility Start: 04-04-2023 End: 04-04-2023 ambulatory JEFF Steele PEARCE Facility:[facility] Start: 04-04-2023 End: 04-04-2023 Nursing evaluation of [...] Activity Detail Author Start: 02-27-2028 Colonoscopy COLONOSCOPY [facility] Start: 02-27-2028 COLORECTAL CANCER SCREENING COLORECTAL CANCER SCREENING [facility] Start: 02-27-2028 Screening for malign ant neoplasm of colon [facility] Start: 03-19-2024 Annual PCP Team Mop Worker beba Disease Visit Annual PCP Team Chronic Disease Visit [facility] Start: 03-19-2024 BP Controlled (<130/80) BP Controlle d (<130/80) [facility] Start: 12-09-2023 Annual PCP Team Mop Worker beba Disease Visit Annual PCP Team Chronic Disease Visit [facility] Start: 12-09-2023 BP Controlled (<130/80) BP Controlle d (<130/80) [facility] Start: 12-09-2023 Covid-19 Vaccine () Covid-19 Vaccine () [facility] Immunizations Immunization Date Immunization Notes Care Provider Luiz mcdonald 08-25-2020 COVID-19 vaccine (JONATHAN) Jeff Pearce DO Work Phone: [facility] 01-21-2018 influenza virus vacc ine, unspecified formulation Ia Nurse Work Phone: [facility] 05-16-2014 pneumococcal polysaccharide vaccine, 23 valent Jeff Pearce DO Work Phone: [facility] 05-16-2010 tetanus toxoid, redu mervat diphtheria toxoid, and acellular pertussis vaccine, adsorbed Jeff Pearce DO Work Phone: [facility] Payers Date Payer Category Payer Medicare AETNA MEDICARE A ETNA MEDICARE O [id number] 2021-Present [phone] [address] [place] [address] [facility] [id number] 2021 Medicare AETNA MEDICARE A ETNA MEDICARE O [id number] 2021-Present [phone] [address] [place] [address] [facility] [id number] 2021 Medicare [id number] Social History Date Type Detail Facility Start: 05-17-2015 End: 02-20-2022 Tobacco smoking status NHIS Never smoked tobacco [facility] Work Phone: Start: 05-17-2015 End: 02-20-2022 Tobacco use and exposure Smokeless tobacco non-user [facility] Work Phone: Start: 02-22-2021 End: 03-19-2023 Alcohol intake Current non-drinker of alcohol (finding) [facility] Start: 1945 Sex Assigned At Not on file [facility] Start: 05-20-2021 End: 11-15-2021 Exposure to SARS-CoV-2 (event) Not sure [facility] Work Phone: Start: 07-11-2022 End: 09-05-2022 History of Social function [facility] Work Phone: Start: 07-11-2022 End: 09-05-2022 Tobacco use panel [facility] Work Phone: Adult Depression Screening Assessment 0 [facility] Work Phone: Medical Equipment Procedure Code Equipment Code Equipment Origin al Text Equipment Identifier Dates Start: 04-21-2019 End: 12-08-2022 Clinical Notes 02-26-2018 to 04-04-2023 Hi Edmond LPN - 04/04/2023 9:36 AM Hi Werner LPN - 03/22/2023 10:07 AM Caren Muller APRN.CNP - 03/19/2023 10:49 AM Tiffany Carballo RN - 03/15/2023 12:02 PM EST Note Date & Type Note Facility 04-04-2023 Note HNO ID: [id number] Author: HI EDMOND LPN Service: ? Author Type: LICENSED NURSE Type: Progress Notes Filed: 04/04/2023 09:45 Note Text: Patient presents for B-12 injection. Denies any problems at this time. Patient instructed on any SE of medication, verbalized understanding and agreed to proceed with treatment. Tolerated injection well. Hi Edmond LPN [facility] 04-04-2023 History of Present illness Narrative Patient presents for B-12 injection. Denies any problems at this time. Patient instructed on any SE of medication, verbalized understanding and agreed to proceed with treatment. Tolerated injection well. Hi Edmond LPN documented in this encounter [facility] 03-22-2023 Note HNO ID: [id number] Author: HI EDMOND LPN Service: ? Author Type: LICENSED NURSE Type: Progress Notes Filed: 03/22/2023 10:21 Note Text: Patient presents for B-12 injection. Denies any problems at this time. Patient instructed on any SE of medication, verbalized understanding and agreed to proceed with treatment. Tolerated injection well. Hi Edmond LPN [facility] 03-22-2023 History of Present illness Narrative Patient presents for B-12 injection. Denies any problems at this time. Patient instructed on any SE of medication, verbalized understanding and agreed to proceed with treatment. Tolerated injection well. Hi Edmond LPN documented in this encounter [facility] 03-19-2023 Note HNO ID: [id number] Author: CAREN GREENBERG APRN.BROACHING MACHINE SET UP OPERATOR Service: ? Author Type: Nurse Practitioner Type: Progress Notes Filed: 03/21/2023 17:54 Note Text: Transitional Care Management Progress Note The patients TCM visit was performed within the 14 days of discharge. Patient's Date of discharge: 03/11/2023 Date of initial coordinator contact after discharge: NA Discharge diagnosis: peritoneal abscess Medication review completed Yes Caren Greenberg APRN.BROACHING MACHINE SET UP OPERATOR Provider Documentation: In follow-up of hospitalization, Amado [...] days from now. Seeing Dr. Singh through [facility]. PAST MEDICAL HISTORY: Reviewed and updated ALLERGIES: [...] Greenberg APRN.CNP March 19, 2023 10:50 AM [facility] 03-19-2023 History of Present illness Narrative Transitional [...] days from now. Seeing Dr. Singh through [facility]. PAST MEDICAL HISTORY: Reviewed and updated ALLERGIES: [...] 2023 10:50 AM documented in this encounter [facility] 03-15-2023 Note HNO ID: [id number] Author: TIFFANY EVANGELISTA RN Service: ? Author Type: Registered Nurse Type: Progress Notes Filed: 03/15/2023 13:02 Note Text: TCM Home Visit Referral Source of Stratification: [facility] Admission Status: Discharged Readmission Risk Score: N/A [...] or worsening symptoms Voiding without difficulty BM 2 Appetite is improving, eating and hydrating Has appointment with surgeon today Denies questions or concerns at this time Upcoming appointments PCP 2/5 Copied from Care Everywhere [facility] 03/05-03/11 Retrocecal abscess, Right lower quadrant abdominal [...] FOR 5 DAYS SUMMARY: Discharge Network Status: Gwz-dr-Qhsmoic (OON) Discharge Pt discharged from [facility] on 03/11/23. Admitted for: Right lower quadrant abdominal pain, retrocecal abscess, right hemicolectomy Contact made with patient: Yes Hi my name is Tiffany Evangelista RN and I am calling from the [facility] on behalf of your PCP, Jeff [...] like to speak with a social work merchandising team lead to help give you support for any [...] I will send your request to a program scheduler who will contact and assist you with that appointment. This will give you an opportunity to ask any questions or address any concerns you may have with your PCP. Inform the patient that if they have any questions or concerns prior to that appointment, to call their PCP's office right away. ACTION TAKE (more content not included)... [facility] 03-15-2023 Note Patient Outreach [place] AMADO QUEEN ([id number]) 1945 F Date Time Provider Department 03/15/23 TIFFANY EVANGELISTA During your visit today, we recorded the following information about you: Tiffany Evangelista RN 03/15/2023 1:02 PM Signed TCM Home Visit Referral Source of Stratification: [facility] Hospital Admission Status: Discharged Readmission Risk [...] appointments PCP 2/5 Copied from Care Everywhere [facility] 03/05-03/11 Retrocecal abscess, Right lower quadrant abdominal [...] FOR 5 DAYS SUMMARY: Discharge Network Status: Fyo-xw-Viuewzg (OON) Discharge Pt discharged from [facility] on 03/11/23. Admitted for: Right lower quadrant abdominal pain, retrocecal abscess, right hemicolectomy Contact made with patient: Yes Hi my name is Tiffany Evangelista RN and I am calling from the [facility] on behalf of your PCP, Jeff [...] like to speak with a social work merchandising team lead to help give you support for any [...] I will send your request to a program scheduler who will contact and assist you with that appointment. This will give you an opportunity to ask any questions or address any co (more content not included)... [facility] 03-15-2023 History of Present illness Narrative TCM Home Visit Referral Source of Stratification: [facility] Hospital Admission Status: Discharged Readmission Risk [...] appointments PCP 03/19 Copied from Care Everywhere [facility] 03/05-03/11 Retrocecal abscess, Right lower quadrant abdominal [...] FOR 5 DAYS SUMMARY: Discharge Network Status: Tpl-hg-Wsemzjc (OON) Discharge Pt discharged from [facility] on 03/11/23. Admitted for: Right lower quadrant abdominal pain, retrocecal abscess, right hemicolectomy Contact made with patient: Yes Hi my name is Tiffany Evangelista RN and I am calling from the [facility] on behalf of your PCP, Jeff [...] like to speak with a social work merchandising team lead to help give you support for any [...] I will send your request to a program scheduler who will contact and assist you with [...] way if possible). KELLEY Education Ordered -: MARIN Santana, flight controls engineer Privacy Officer [facility] documented in this encounter [facility] 02-22-2023 Note HNO ID: [id number] Author: HI EDMOND LPN Service: ? Author Type: LICENSED NURSE Type: Progress Notes Filed: 02/22/2023 10:19 Note Text: Patient presents for B-12 injection. Denies any problems at this time. Patient instructed on any SE of medication, verbalized understanding and agreed to proceed with treatment. Tolerated injection well. Hi Edmond LPN [facility] 02-08-2023 Note HNO ID: [id number] Author: Hi Edmond LPN Service: ? Author Type: LICENSED NURSE Type: Progress Notes Filed: 02/08/2023 10:16 AM Note Text: Patient presents for B-12 injection. Denies any problems at this time. Patient instructed on any SE of medication, verbalized understanding and agreed to proceed with treatment. Tolerated injection well. Hi Edmond LPN [facility] 01-25-2023 Note HNO ID: [id number] Author: Hi Edmond LPN Service: ? Author Type: ? Type: Progress Notes Filed: 01/25/2023 10:23 AM Note Text: Patient presents for B-12 injection. Denies any problems at this time. Patient instructed on any SE of medication, verbalized understanding and agreed to proceed with treatment. Tolerated injection well. Hi Edmond LPN [facility] 01-25-2023 History of Present illness Narrative Patient presents for B-12 injection. Denies any problems at this time. Patient instructed on any SE of medication, verbalized understanding and agreed to proceed with treatment. Tolerated injection well. Hi Edmond LPN documented in this encounter [facility] 01-11-2023 Note HNO ID: [id number] Author: Hi Edmond LPN Service: ? Author Type: ? Type: Progress Notes Filed: 01/11/2023 10:38 AM Note Text: Patient presents for B-12 injection. Denies any problems at this time. Patient instructed on any SE of medication, verbalized understanding and agreed to proceed with treatment. Tolerated injection well. Hi Edmond LPN [facility] 12-28-2022 Note HNO ID: [id number] Author: Hi Edmond LPN Service: ? Author Type: ? Type: Progress Notes Filed: 12/28/2022 10:07 AM Note Text: Patient presents for B-12 injection. Denies any problems at this time. Patient instructed on any SE of medication, verbalized understanding and agreed to proceed with treatment. Tolerated injection well. Hi Edmond LPN [facility] 12-28-2022 History of Present illness Narrative Patient presents for B-12 injection. Denies any problems at this time. Patient instructed on any SE of medication, verbalized understanding and agreed to proceed with treatment. Tolerated injection well. Hi Edmond LPN documented in this encounter [facility] 12-14-2022 Note HNO ID: [id number] Author: Hi Edmond LPN Service: ? Author Type: ? Type: Progress Notes Filed: 12/14/2022 10:12 AM Note Text: Patient presents for B-12 injection. Denies any problems at this time. Patient instructed on any SE of medication, verbalized understanding and agreed to proceed with treatment. Tolerated injection well. Hi Edmond LPN [facility] 12-12-2022 Note HNO ID: [id number] Author: Jeff Pearce DO Service: ? Author [...] Diagnosis Date Advance care planning 08/24/2021 [facility] Diabetes mellitus, type 2 (HCC) Environmental allergies Hyperlipidemia Hypothyroidism, unspecified Liver failure (HCC) 2004 unsure of cause Migraine headache onset age 7 PAST SURGICAL HISTORY Procedure Laterality Date BREAST BIOPSY NEEDLE LEFT 12/31/2014 x 2, Dr. Ronquillo COLONOSCOPY FLX DX W/COLLJ SPEC WHEN PFRMD 08/25/2003 adenomatous polyp and diverticulosis. [facility] COLONOSCOPY FLX DX W/COLLJ SPEC WHEN PFRMD 09/28/2006 No polyps found. 5 yr recall. [facility] COLONOSCOPY FLX DX W/COLLJ SPEC WHEN PFRMD 02/26/2018 Colonoscopy ESOPHAGOGASTRODUODENOSCOPY TRANSORAL DIAGNOSTIC 08/31/2003 Unremarkable, negative biopsies. [facility] ESOPHAGOGASTRODUODENOSCOPY TRANSORAL DIAGNOSTIC 02/26/2018 EGD LAPAROSCOPIC CHOLECYSTECTOMY 04/05/2022 REMV CATARACT EXTRACAP,INSERT LENS Bilateral TONSILLECTOMY HX Social History Tobacco Use Smoking status: Never Smokeless tobacco: Never Vaping Use Vaping Use: Never used Substance Use Topics Alcohol use: No Drug use: No FAMILY HISTORY Adopted: Yes Allergies: ALLERGIES Allergen Reactions Benadryl [Diphenhyd* Swelling Penicillins Shortness of Breath Xrnzmba-Kbr-Udo Red* Contraindication-Medical Surgical History of liver failure [...] mg EC ta (more content not included)... [facility] 12-12-2022 History of Present illness [...] WHEN PFRMD 08/25/2003 adenomatous polyp and diverticulosis. [facility] COLONOSCOPY FLX DX W/COLLJ SPEC WHEN PFRMD 09/28/2006 No polyps found. 5 yr recall. [facility] COLONOSCOPY FLX DX W/COLLJ SPEC WHEN PFRMD 02/26/2018 Colonoscopy ESOPHAGOGASTRODUODENOSCOPY TRANSORAL DIAGNOSTIC 08/31/2003 Unremarkable, negative biopsies. [facility] ESOPHAGOGASTRODUODENOSCOPY TRANSORAL DIAGNOSTIC 02/26/2018 EGD LAPAROSCOPIC CHOLECYSTECTOMY 04/05/2022 REMV CATARACT EXTRACAP,INSERT LENS Bilateral TONSILLECTOMY HX Social History Tobacco Use Smoking status: Never Smokeless tobacco: Never Vaping Use Vaping Use: Never used Substance Use Topics Alcohol use: No Drug use: No FAMILY HISTORY Adopted: Yes Allergies: ALLERGIES Allergen Reactions Benadryl [Diphenhyd* Swelling Penicillins Shortness of Breath Anhdzgq-Hug-Stq Red* Contraindication-Medical Surgical History of liver failure [...] with the plan. Jeff Pearce DO [address] [place] [address] documented in this encounter [facility] 11-30-2022 Note HNO ID: [id number] Author: Hi Edmond LPN Service: ? Author Type: ? Type: Progress Notes Filed: 11/30/2022 9:17 AM Note Text: Patient presents for B-12 injection. Denies any problems at this time. Patient instructed on any SE of medication, verbalized understanding and agreed to proceed with treatment. Tolerated injection well. Hi Edmond LPN [facility] 11-30-2022 History of Present illness Narrative Patient presents for B-12 injection. Denies any problems at this time. Patient instructed on any SE of medication, verbalized understanding and agreed to proceed with treatment. Tolerated injection well. Hi Edmond LPN documented in this encounter [facility] 11-16-2022 Note HNO ID: [id number] Author: Hi Edmond LPN Service: ? Author Type: ? Type: Progress Notes Filed: 11/16/2022 9:02 AM Note Text: Patient presents for B-12 injection. Denies any problems at this time. Patient instructed on any SE of medication, verbalized understanding and agreed to proceed with treatment. Tolerated injection well. Hi Edmond LPN [facility] 11-16-2022 History of Present illness Narrative Patient presents for B-12 injection. Denies any problems at this time. Patient instructed on any SE of medication, verbalized understanding and agreed to proceed with treatment. Tolerated injection well. Hi Edmond LPN documented in this encounter [facility] 11-03-2022 Note HNO ID: [id number] Author: Hi Edmond LPN Service: ? Author Type: ? Type: Progress Notes Filed: 11/03/2022 8:58 AM Note Text: Patient presents for B-12 injection. Denies any problems at this time. Patient instructed on any SE of medication, verbalized understanding and agreed to proceed with treatment. Tolerated injection well. Hi Edmond LPN [facility] 11-03-2022 History of Present illness Narrative Patient presents for B-12 injection. Denies any problems at this time. Patient instructed on any SE of medication, verbalized understanding and agreed to proceed with treatment. Tolerated injection well. Hi Edmond LPN documented in this encounter [facility] 10-17-2022 Note HNO ID: [id number] Author: Hi Edmond LPN Service: ? Author Type: ? Type: Progress Notes Filed: 10/17/2022 9:15 AM Note Text: Patient presents for B-12 injection. Denies any problems at this time. Patient instructed on any SE of medication, verbalized understanding and agreed to proceed with treatment. Tolerated injection well. Hi Edmond LPN [facility] 10-17-2022 History of Present illness Narrative Patient presents for B-12 injection. Denies any problems at this time. Patient instructed on any SE of medication, verbalized understanding and agreed to proceed with treatment. Tolerated injection well. Hi Edmond LPN documented in this encounter [facility] 10-05-2022 Miscellaneous Notes Left detailed message on voicemail that labs are normal Maribeth Andrade Ma Please inform patient that her recent liver enzyme labs and free t4 thyroid levels are normal Jeff Pearce DO documented in this encounter [facility] 10-02-2022 Note HNO ID: [id number] Author: Hi Edmond LPN Service: ? Author Type: ? Type: Progress Notes Filed: 10/02/2022 9:50 AM Note Text: Patient presents for B-12 injection. Denies any problems at this time. Patient instructed on any SE of medication, verbalized understanding and agreed to proceed with treatment. Tolerated injection well. Hi Edmond LPN [facility] 10-02-2022 History of Present illness Narrative Patient presents for B-12 injection. Denies any problems at this time. Patient instructed on any SE of medication, verbalized understanding and agreed to proceed with treatment. Tolerated injection well. Hi Edmond LPN documented in this encounter [facility] 09-19-2022 Note HNO ID: [id number] Author: Hi Edmond LPN Service: ? Author Type: ? Type: Progress Notes Filed: 09/19/2022 9:32 AM Note Text: Patient presents for B-12 injection. Denies any problems at this time. Patient instructed on any SE of medication, verbalized understanding and agreed to proceed with treatment. Tolerated injection well. Hi Edmond LPN [facility] 09-19-2022 History of Present illness Narrative Patient presents for B-12 injection. Denies any problems at this time. Patient instructed on any SE of medication, verbalized understanding and agreed to proceed with treatment. Tolerated injection well. Hi Edmond LPN documented in this encounter [facility] documented as of this encounter (statuses as of 03/16/2023) [facility]07-25-2023 History of Past illness Narrative* Problem [...] of this encounter (statuses as of 03/22/2023) [facility]-25[facility] History of Past illness Narrative* Problem [...] of this encounter (statuses as of 03/22/2023) [facility] History of Past illness Narrative* Problem [...] of this encounter (statuses as of 04/04/2023) [facility]07-25-2023 NoteHNO ID: [id number] Author: Jeff Pearce, DO Service: ? Author [...] WHEN PFRMD 08/25/2003 adenomatous polyp and diverticulosis. [facility] COLONOSCOPY FLX DX W/COLLJ SPEC WHEN PFRMD 09/28/2006 No polyps found. 5 yr recall. [facility] COLONOSCOPY FLX DX W/COLLJ SPEC WHEN PFRMD 02/26/2018 Colonoscopy ESOPHAGOGASTRODUODENOSCOPY TRANSORAL DIAGNOSTIC 08/31/2003 Unremarkable, negative biopsies. [facility] ESOPHAGOGASTRODUODENOSCOPY TRANSORAL DIAGNOSTIC 02/26/2018 EGD LAPAROSCOPIC CHOLECYSTECTOMY 04/05/2022 REMV CATARACT EXTRACAP,INSERT LENS Bilateral TONSILLECTOMY HX Social History Tobacco Use Smoking status: Never Smokeless tobacco: Never Vaping Use Vaping Use: Never used Substance Use Topics Alcohol use: No Drug use: No FAMILY HISTORY Adopted: Yes Allergies: ALLERGIES Allergen Reactions Benadryl [Diphenhyd* Swelling Penicillins Shortness of Breath Gtyqtpj-Jft-Hcc Red* Contraindication-Medical Surgical History of liver failure [...] EachRfl: 3 lancets (ONE (more content not included)...[facility]06-26-2023 NoteHNO ID: [id number] Author: Hi Edmond LPN Service: ? Author Type: ? Type: Progress Notes Filed: 08/07/2022 11:25 AM Note Text: Patient presents for B-12 injection. Denies any problems at this time. Patient instructed on any SE of medication, verbalized understanding and agreed to proceed with treatment. Tolerated injection well. [facility] History of Present illness Narrative* Hi Edmond LPN - 08/07/2022 11:24 AM EDT Patient presents for B-12 injection. Denies any problems at this time. Patient instructed on any SEof medication, verbalized understanding and agreed to proceed with treatment. Tolerated injection well. Hi Edmond LPN [facility]23 NoteHNO ID: [id number] Author: Hi Edmond LPN Service: ? Author Type: ? Type: Progress Notes Filed: 07/11/2022 9:35 AM Note Text: Patient presents for B-12 injection. Denies any problems at this time. Patient instructed on any SE of medication, verbalized understanding and agreed to proceed with treatment. Tolerated injection well. Hi Edmond [facility]05-30-2023 History of Present illness Narrative* Hi Edmond LPN - 07/11/2022 9:33 AM EDT Patient presents for B-12 injection. Denies any problems at this time. Patient instructed on any SEof medication, verbalized understanding and agreed to proceed with treatment. Tolerated injection well. Hi Edmond LPN [facility]2023 NoteHNO ID: [id number] Author: Hi Edmond LPN Service: ? Author Type: ? Type: Progress Notes Filed: 06/12/2022 9:32 AM Note Text: Patient presents for B-12 injection. Denies any problems at this time. Patient instructed on any SE of medication, verbalized understanding and agreed to proceed with treatment. Tolerated injection well. Hi Edmond [facility]05-01-2023 History of Present illness Narrative* Hi Edmond LPN - 06/12/2022 9:09 AM EDT Patient presents for B-12 injection. Denies any problems at this time. Patient instructed on any SEof medication, verbalized understanding and agreed to proceed with treatment. Tolerated injection well. Hi Edmond LPN [facility]23 NoteHNO ID: [id number] Author: Jeff Pearce, DO Service: ? Author [...] WHEN PFRMD 08/25/2003 adenomatous polyp and diverticulosis. [facility] COLONOSCOPY FLX DX W/COLLJ SPEC WHEN PFRMD 09/28/2006 No polyps found. 5 yr recall. [facility] COLONOSCOPY FLX DX W/COLLJ SPEC WHEN PFRMD 02/26/2018 Colonoscopy ESOPHAGOGASTRODUODENOSCOPY TRANSORAL DIAGNOSTIC 08/31/2003 Unremarkable, negative biopsies. [facility] ESOPHAGOGASTRODUODENOSCOPY TRANSORAL DIAGNOSTIC 02/26/2018 EGD LAPAROSCOPIC CHOLECYSTECTOMY 04/05/2022 REMV CATARACT EXTRACAP,INSERT LENS Bilateral TONSILLECTOMY HX Social History Tobacco Use Smoking status: Never Smokeless tobacco: Never Vaping Use Vaping Use: Never used Substance Use Topics Alcohol use: No Drug use: No FAMILY HISTORY Adopted: Yes Allergies: ALLERGIES Allergen Reactions Benadryl [Diphenhyd* Swelling Penicillins Shortness of Breath Rgxonec-Wey-Dxq Red* Contraindication-Medical Surgical History of liver failure [...] (GLUCOPHAGE) 500 mg ta (more content not included)...[facility]04-14-2023 History of Present illness Narrative* Jeff Pearce, DO - 05/26/2022 7:23 AM EDT Patient presents [...] WHEN PFRMD 08/25/2003 adenomatous polyp and diverticulosis. [facility] COLONOSCOPY FLX DX W/COLLJ SPEC WHEN PFRMD 09/28/2006 No polyps found. 5 yr recall. [facility] COLONOSCOPY FLX DX W/COLLJ SPEC WHEN PFRMD 02/26/2018 Colonoscopy ESOPHAGOGASTRODUODENOSCOPY TRANSORAL DIAGNOSTIC 08/31/2003 Unremarkable, negative biopsies. [facility] ESOPHAGOGASTRODUODENOSCOPY TRANSORAL DIAGNOSTIC 02/26/2018 EGD LAPAROSCOPIC CHOLECYSTECTOMY 04/05/2022 REMV CATARACT EXTRACAP,INSERT LENS Bilateral TONSILLECTOMY HX Social History Tobacco Use Smoking status: Never Smokeless tobacco: Never Vaping Use Vaping Use: Never used Substance Use Topics Alcohol use: No Drug use: No FAMILY HISTORY Adopted: Yes Allergies: ALLERGIES Allergen Reactions Benadryl [Diphenhyd* Swelling Penicillins Shortness of Breath Fudirwe-Crs-Bpv Red* Contraindication-Medical Surgical History of liver failure [...] with the plan. Jeff Pearce DO [address] [place] [address] [facility]23 NoteHNO ID: [id number] Author: Hi Edmond LPN Service: ? Author Type: ? Type: Progress Notes Filed: 05/15/2022 9:03 AM Note Text: Patient presents for B-12 injection. Denies any problems at this time. Patient instructed on any SE of medication, verbalized understanding and agreed to proceed with treatment. Tolerated injection well. [facility] History of Present illness Narrative* Hi Edmond LPN - 05/15/2022 9:00 AM EDT Patient presents for B-12 injection. Denies any problems at this time. Patient instructed on any SEof medication, verbalized understanding and agreed to proceed with treatment. Tolerated injection well. Hi Edmond LPN [facility]-2023 NoteHNO ID: [id number] Author: Amado Campos PA-C Service: ? Author Type: Physician Transition Nurse Type: Progress Notes Filed: 04/21/2022 3:28 PM Note Text: FOLLOW UP VISIT - CHOLECYSTECTOMY NAME: Amado Queen [facility] NO.: [id number] DATE OF SERVICE: 04/13/2022 : 1945 REFERRING [...] instructed to follow-up with me as needed. BARRY [facility]03-10-2023 History of Present illness Narrative* Amado Campos PA-C - 04/21/2022 3:25 PM EST FOLLOW UP VISIT - CHOLECYSTECTOMY NAME: Amado Queen [facility] NO.: [id number] DATE OF SERVICE: 04/13/2022 : 1945 REFERRING [...] needed. Amado Campos PA-C documented in this encounter[facility]03-[facility]-2023 NoteHNO ID: [id number] Author: Hi Edmond LPN Service: ? Author Type: ? Type: Progress Notes Filed: 04/17/2022 9:15 AM Note Text: Patient presents for B-12 injection. Denies any problems at this time. Patient instructed on any SE of medication, verbalized understanding and agreed to proceed with treatment. Tolerated injection well. [facility] Instructions* Patient Instructions* Amado Campos PA-C - 04/13/2022 9:33 AM EST -Continue warm compresses as needed for discomfort -OK to begin walking dog in the next few days The following instructions are important for you related to your office visit today with the [facility] Surgeons. INSTRUCTIONS FOLLOWING YOU RECENT [...] you should contact our office immediately @ [phone] and ask to be transferred to the General Surgery department. documented in [facility] Instructions* Patient Instructions* Amado Campos PA-C - 04/10/2022 2:07 PM EST -Heating pad/warm compresses -Aleve short-term for pain -May use abdominal binder when up and ambulating -Call immediately if any worsening symptoms The following instructions are important for you related to your office visit today with the [facility]. INSTRUCTIONS FOLLOWING YOU RECENT [...] you should contact our office immediately @ [phone] and ask to be transferred to the General Surgery department. documented in this encounterHigh[facility]02-[facility]23 History of Present illness Narrative* Amado Campos PA-C - 04/10/2022 2:05 PM EST FOLLOW UP VISIT - CHOLECYSTECTOMY NAME: Amado [facility]over [facility] NO.: [id number] DATE OF SERVICE: 04/10/2022 : 1945 REFERRING [...] days. Amado Campos PA-C documented in this encounterHigh[facility]02-22-2023 NoteHNO ID: [id number] Author: Kelly Jordan APRN.ONCOLOGY REGISTRAR Service: Anesthesiology Author Type: Nurse Sign Wirer Type: Anesthesia Procedure Notes Filed: 04/05/2022 7:52 AM Note Text: ANESTHESIOLOGY PROCEDURE NOTE Airway General Information Procedure Start Time/Medication Administration: 04/05/2022 7:40 AM Patient location during procedure: OR Timeout Performed Pre-procedure: timeout performed Consent Obtained: Yes Patient identity confirmed: arm band, care merchandising team lead and patient Staffing Anesthesiologist: Nohemi Ortiz MD ONCOLOGY REGISTRAR: Kelly Jordan APRN.ONCOLOGY REGISTRAR Performed by: ONCOLOGY REGISTRAR Indications and Patient Condition Indications for airway [...] 1 Airway not difficult SIGNATURE: Kelly Jordan APRN.ONCOLOGY REGISTRAR PATIENT NAME: Amado Queen DATE: April 05, 2022 TIME: 7:51 AM CSN: [id number] Instructions* Patient Instructions* Yon Yee APRN.BROACHING MACHINE SET UP OPERATOR - 04/03/2022 12:07 PM EST PATIENT PREOPERATIVE INSTRUCTIONS [facility]: [phone] -- [address] [facility] [address]. Please read below carefully for your personalized [...] Procedures: - YOU MUST HAVE A RESPONSIBLE CARGO AGENT TAKE YOU HOME. A CERTIFIED MEDICAL TECHNICIAN OR OB TECH CANNOT BE MADE A RESPONSIBLE CARGO AGENT. - We recommend that a responsible person [...] Advance Directive, please fax a copy to [phone] or email to for it to be [...] day. Yon Yee APRN.CNP documented in this encounterHigh[facility]02-[facility]23 History and physical note * Yon Yee APRN.CNP - 04/03/2022 11:20 AM EST HISTORY AND PHYSICAL EXAMINATION SERVICE DATE: 04/03/2022 SERVICE TIME: 11:40 AM PRIMARY CARE PHYSICIAN: Jeff Pearce DO REASON FOR VISIT: Amado Queen is a 76 year old female who is scheduled for Procedure(s): LAPAROSCOPIC CHOLECYSTECTOMY WITH GRAMS (N/A) at the request of Dr. Hilario Cyr for consultation. My final recommendation will [...] > 1 time per night or hematuria. ANIMAL RESCUER: Negative for abnormal vaginal bleeding, abnormal vaginal [...] WHEN PFRMD 08/25/2003 adenomatous polyp and diverticulosis. [facility] COLONOSCOPY FLX DX W/COLLJ SPEC WHEN PFRMD 09/28/2006 No polyps found. 5 yr recall. [facility] COLONOSCOPY FLX DX W/COLLJ SPEC WHEN PFRMD 02/26/2018 Colonoscopy ESOPHAGOGASTRODUODENOSCOPY TRANSORAL DIAGNOSTIC 08/31/2003 Unremarkable, negative biopsies. [facility] ESOPHAGOGASTRODUODENOSCOPY TRANSORAL DIAGNOSTIC 02/26/2018 EGD REMV [...] DAILY. DX: TYPE 2 DM - CONTROLLED E11. INSULIN: NO Delecia Patient not taking: Reported on 03/24/2022 Lancets (DoochooUCH ULTRASOFT LANCETS) lancets Use once daily as directed E11. Patient not taking: Reported on 03/24/2022 blood [...] Benadryl [Diphenhyd* Swelling Penicillins Shortness of Breath Xiyytho-Svk-Cyq Red* Contraindication-Medical Surgical History of liver failure [...] or any previous visit (from the past 05513 hour(s)). Assessment Patient has the following medical [...] large neck Non-male patient STOP-Bang Score: 2 [id number] Score: Age: 65-74 Sex: Female CHF history: No Hypertension history: Yes Stroke/TIA/thromboembolism history: No Vascular disease history: No Diabetes history: Yes [id number] Score: 4 ASA Class: 2 ANESTHESIA FINDINGS: Intubation History: No history of difficult intubation. No abnormal airway history Significant Anesthesia Considerations: Per patient in the past she's stopped breathing during 2 surgeries. Unsure why this was. Had surgery at [place] [phone] without issues. potential difficult IV/vein access Airway [...] 10:38 AM PAGER/CONTACT #: documented in this encounterHigh[facility]02-[facility]23 History of Present illness Narrative* Rodriguez Louie [...] more recently had an endoscopy performed at [place] where the anesthesiologist told her that she [...] today at the request of Dr. Jeff Pearce, for my opinion and advice regarding known [...] WHEN PFRMD 08/25/2003 adenomatous polyp and diverticulosis. [facility] COLONOSCOPY FLX DX W/COLLJ SPEC WHEN PFRMD 09/28/2006 No polyps found. 5 yr recall. [facility] COLONOSCOPY FLX DX W/COLLJ SPEC WHEN PFRMD 02/26/2018 Colonoscopy ESOPHAGOGASTRODUODENOSCOPY TRANSORAL DIAGNOSTIC 08/31/2003 Unremarkable, negative biopsies. [facility] ESOPHAGOGASTRODUODENOSCOPY TRANSORAL DIAGNOSTIC 02/26/2018 EGD TONSILLECTOMY [...] Thyroid. 90 tablet 3 blood sugar diagnostic (ShopSpotTOUCH ULTRA TEST STRIP) test strip Type 2 [...] 0907 ALLERGIES: Benadryl [Diphenhydramine Hcl], Penicillins, and Xmlikxs-Nsu-Exv Reductase Inhibitors PERSONAL HISTORY: Social History Tobacco Use Smoking status: Never Smokeless tobacco: Never Vaping Use Vaping Use: Never used Substance Use Topics Alcohol use: No Drug use: No FAMILY HISTORY: FAMILY HISTORY Adopted: Yes REVIEW OF SYMPTOMS: The review of systems data was entered by the nurse and reviewed by ny Nursing Notes: Sheri Roth LPN 03/24/2022 10:30 [...] Procedure: LAPAROSCOPIC CHOLECYSTECTOMY WITH INTRAOPERATIVE CHOLEANGIOGRAM - 57554-023 Planned antibiotic: clindamycin 900mg IVPB water resource consultant to OR SCDs needed - Yes Transition Nurse Needed - Yes Diagnoses: (R10.11) RUQ abdominal pain (K80.20) Calculus of gallbladder without cholecystitis without obstruction (K76.0) Fatty liver My findings have been communicated to Dr. Jeff Pearce DO via shared medical record. This note will be forwarded to Dr. Jeff Pearce DO. Rodriguez Louie MD documented in this encounterHigh[facility] Hospital02-[facility]23 Nurse Note* Sheri Roth, PI[employer] SOUNDING BOARD MATCHER - 03/24/2022 10:27 AM EST REVIEW OF [...] 2018 Sheri Roth LPN documented in this encounterHighland [facility] Hospital02-08-2023 Miscellaneous Notes* Telephone Encounter - Brinda Melo - 03/22/2022 10:37 AM EST Called PT [...] advise on US results. documented in this encounterHighland [facility] Hospital02-06-2023 History of Present illness Narrative* Hi Edmond LPN - 03/20/2022 9:14 AM EST Patient presents for B-12 injection. Denies any problems at this time. Patient instructed on any SEof medication, verbalized understanding and agreed to proceed with treatment. Tolerated injection well. Hi Edmond LPN documented in this encounterHighland [facility] Hospital01-10-2023 History of Present illness Narrative* Jeff [...] WHEN PFRMD 08/25/2003 adenomatous polyp and diverticulosis. [facility] COLONOSCOPY FLX DX W/COLLJ SPEC WHEN PFRMD 09/28/2006 No polyps found. 5 yr recall. [facility] COLONOSCOPY FLX DX W/COLLJ SPEC WHEN PFRMD 02/26/2018 Colonoscopy ESOPHAGOGASTRODUODENOSCOPY TRANSORAL DIAGNOSTIC 08/31/2003 Unremarkable, negative biopsies. [facility] ESOPHAGOGASTRODUODENOSCOPY TRANSORAL DIAGNOSTIC 02/26/2018 EGD TONSILLECTOMY HX Social History Tobacco Use Smoking status: Never Smokeless tobacco: Never Substance Use Topics Alcohol use: No Drug use: No FAMILY HISTORY Adopted: Yes Allergies: ALLERGIES Allergen Reactions Benadryl [Diphenhyd* Swelling Penicillins Shortness of Breath Ekyzztl-Kbu-Hro Red* Contraindication-Medical Surgical History of liver failure [...] with supplements or by diet (goal of 1770-4091 mg/day - Set up for bone mineral [...] agreed with the plan. Jeff Pearce DO [address] [place] [address] documented in this encounterHigh[facility] Hospital12-[facility]-2022 History of Present illness Narrative* Hi Marcosortega ELLIOTT - 01/17/2022 9:10 AM EST Patient presents for B-12 injection. Denies any problems at this time. Patient instructed on any SEof medication, verbalized understanding and agreed to proceed with treatment. Tolerated injection well. Hi Edmond LPN documented in this encounterHigh[facility] Hospital11-08-2022 History of Present illness Narrative* Jael Connolly LPN - 12/20/2021 8:58 AM EST Patient here for B12 injection. Given IM in right arm. Patient tolerated injection well. documented in this encounterHighland [facility] Hospital10-04-2022 History of Present illness Narrative* Jeff Paerce DO - 11/15/2021 10:14 AM EDT Patient [...] WHEN PFRMD 08/25/2003 adenomatous polyp and diverticulosis. [facility] COLONOSCOPY FLX DX W/COLLJ SPEC WHEN PFRMD 09/28/2006 No polyps found. 5 yr recall. [facility] COLONOSCOPY FLX DX W/COLLJ SPEC WHEN PFRMD 02/26/2018 Colonoscopy ESOPHAGOGASTRODUODENOSCOPY TRANSORAL DIAGNOSTIC 08/31/2003 Unremarkable, negative biopsies. [facility] ESOPHAGOGASTRODUODENOSCOPY TRANSORAL DIAGNOSTIC 02/26/2018 EGD TONSILLECTOMY HX Social History Tobacco Use Smoking status: Never Smokeless tobacco: Never Substance Use Topics Alcohol use: No Drug use: No FAMILY HISTORY Adopted: Yes Allergies: ALLERGIES Allergen Reactions Benadryl [Diphenhyd* Swelling Penicillins Shortness of Breath Mcvjupo-Fwr-Lhl Red* Contraindication-Medical Surgical History of liver failure [...] agreed with the plan. Jeff Pearce DO [address] [place] [address] documented in [facility] History of Present illness Narrative* Jael Connolly LPN - 10/20/2021 9:17 AM EDT Patient presents for B-12 injection. Denies any problems at this time. Patient instructed on any SEof medication, verbalized understanding and agreed to proceed with treatment. Tolerated injection well. Jael Connolly LPN documented in this encounterHigh[facility]06-[facility] History of Present illness Narrative* Hi Edmond LPN - 07/18/2021 9:34 AM EDT Patient presents for B-12 injection. Denies any problems at this time. Patient instructed on any SEof medication, verbalized understanding and agreed to proceed with treatment. Tolerated injection well. Hi Edmond LPN documented in this [facility]High[facility]2022 History of Present illness Narrative* Hi Edmond LPN - 07/04/2021 9:36 AM EDT Patient presents for B-12 injection. Denies any problems at this time. Patient instructed on any SEof medication, verbalized understanding and agreed to proceed with treatment. Tolerated injection well. Hi Edmond LPN documented in this encounterHigh[facility]05-09-2022 History of Present illness Narrative* Hi Edmond LPN - 06/20/2021 2:39 PM EDT Patient presents for B-12 injection. Denies any problems at this time. Patient instructed on any SEof medication, verbalized understanding and agreed to proceed with treatment. Tolerated injection well. Hi Edmond LPN documented in this encounterHigh[facility]04-25-2022 History of Present illness Narrative* Hi Edmond LPN - 06/06/2021 2:50 PM EDT Patient presents for B-12 injection. Denies any problems at this time. Patient instructed on any SEof medication, verbalized understanding and agreed to proceed with treatment. Tolerated injection well. Hi Edmond LPN documented in this encounterHigh[facility] Hospital04-19-2022 History of Present illness Narrative* Jeff Pearce DO - 05/31/2021 7:23 AM EDT Patient presents with: Follow Up: 3 months HPI: Amado Queen is a 76 year old female who presents to the office today for review of health conditions. Concerns today: had an episode of food allergy reaction in Dec, symptoms are improved. Was seen at [facility] and given rxfor prednisone and zofran. Prednisone [...] with sugars in the <200 range. Patient's [id number] was Hemoglobin A1C (%) Date Value 2021 [...] WHEN PFRMD 08/25/2003 adenomatous polyp and diverticulosis. [facility] COLONOSCOPY FLX DX W/COLLJ SPEC WHEN PFRMD 09/28/2006 No polyps found. 5 yr recall. [facility] COLONOSCOPY FLX DX W/COLLJ SPEC WHEN PFRMD 02/26/2018 Colonoscopy ESOPHAGOGASTRODUODENOSCOPY TRANSORAL DIAGNOSTIC 08/31/2003 Unremarkable, negative biopsies. [facility] ESOPHAGOGASTRODUODENOSCOPY TRANSORAL DIAGNOSTIC 02/26/2018 EGD TONSILLECTOMY HX Social History Tobacco Use Smoking status: Never Smoker Smokeless tobacco: Never Used Substance Use Topics Alcohol use: No Drug use: No FAMILY HISTORY Adopted: Yes Allergies: ALLERGIES Allergen Reactions Benadryl [Diphenhyd* Swelling Penicillins Shortness of Breath Jhxbenf-Fwt-Lxn Red* Contraindication-Medical Surgical History of liver failure [...] agreed with the plan. Jeff Pearce DO [address] [place] [address] documented in this encounterHighland [facility] Hospital04-13-2022 Miscellaneous Notes* Telephone Encounter - Nell Bhakta Ma - 05/25/2021 5:34 PM EDT Patient notified and verbalized understanding. Pt asking for Caroline results. Faxed request to [facility] & will place results on PCP desk when received. Nell Bhakta Ma * Telephone Encounter - Caren Greenberg APRN.CNP - 05/25/2021 5:26 PM EDT Please let [...] upcoming appointment with Dr. Pearce. Caren Greenberg APRN.CNP documented in this encounterHighland District Hospital04-06-2022 Miscellaneous Notes* Telephone Encounter - Pebbles Molina LPN - 05/18/2021 2:34 PM EDT Order faxed to [facility]. Pebbles Molina LPN * Telephone Encounter - Jahaira Harrison APRN.CNP - 05/18/2021 12:42 PM EDT Order signed. Please fax. Jahaira Harrison APRN.CNP * Telephone Encounter - Pebbles Molina LPN - 05/18/2021 12:35 PM EDT Please file orders. Needs faxed to [facility]. Pebbles Molina LPN documented in this encounterHighland [facility] Hospital01-15-2019 History of Past illness Narrative* Problem Noted Date Resolved Date Obesity, Class III, BMI >= 40 02/26/2018 Diabetes mellitus type 2, controlled, without co mplications 05/17/2015 08/23/2020 documented as of this encounter (statuses as of 05/18/2021) [facility] Narrative* Problem Noted Date Resolved Date Obesity, Class III, BMI >= 40 02/26/2018 Diabetes mellitus type 2, controlled, without co mplications 05/17/2015 08/23/2020 documented as of this encounter (statuses as of 05/31/2021) [facility] Narrative* Problem Noted Date Resolved Date Obesity, Class III, BMI >= 40 02/26/2018 Diabetes mellitus type 2, controlled, without co mplications 05/17/2015 08/23/2020 documented as of this encounter (statuses as of 06/06/2021) [facility] Narrative* Problem Noted Date Resolved Date Obesity, Class III, BMI >= 40 02/26/2018 Diabetes mellitus type 2, controlled, without co mplications 05/17/2015 08/23/2020 documented as of this encounter (statuses as of 06/15/2021) [facility] Narrative* Problem Noted Date Resolved Date Obesity, Class III, BMI >= 40 02/26/2018 Diabetes mellitus type 2, controlled, without co mplications 05/17/2015 08/23/2020 documented as of this encounter (statuses as of 06/20/2021) [place] [address]-15-2019 History of Past illness Narrative* Problem Noted Date Resolved Date Obesity, Class III, BMI >= 40 02/26/2018 Diabetes mellitus type 2, controlled, without co mplications 05/17/2015 08/23/2020 documented as of this encounter (statuses as of 07/04/2021) [facility] Narrative* Problem Noted Date Resolved Date Obesity, Class III, BMI >= 40 02/26/2018 Diabetes mellitus type 2, controlled, without co mplications 05/17/2015 08/23/2020 documented as of this encounter (statuses as of 07/18/2021) [facility] Narrative* Problem Noted Date Resolved Date Obesity, Class III, BMI >= 40 02/26/2018 Peripheral neuropathy 01/21/2018 08/22/2021 Diabetes mellitus type 2, controlled, without co mplications 05/17/2015 08/23/2020 documented as of this encounter (statuses as of 10/20/2021) [facility] Narrative* Problem Noted Date Resolved Date Obesity, Class III, BMI >= 40 02/26/2018 Peripheral neuropathy 01/21/2018 08/22/2021 Diabetes mellitus type 2, controlled, without co mplications 05/17/2015 08/23/2020 documented as of this encounter (statuses as of 11/15/2021) [facility] Narrative* Problem Noted Date Resolved Date Obesity, Class III, BMI >= 40 02/26/2018 Peripheral neuropathy 01/21/2018 08/22/2021 Diabetes mellitus type 2, controlled, without co mplications 05/17/2015 08/23/2020 documented as of this encounter (statuses as of 12/20/2021) [facility] Narrative* Problem Noted Date Resolved Date Obesity, Class III, BMI >= 40 02/26/2018 Peripheral neuropathy 01/21/2018 08/22/2021 Diabetes mellitus type 2, controlled, without co mplications 05/17/2015 08/23/2020 documented as of this encounter (statuses as of 01/17/2022) [facility] Narrative* Problem Noted Date Resolved Date Obesity, Class III, BMI >= 40 02/26/2018 Peripheral neuropathy 01/21/2018 08/22/2021 Diabetes mellitus type 2, controlled, without co mplications 05/17/2015 08/23/2020 documented as of this encounter (statuses as of 02/21/2022) [facility] Narrative* Problem Noted Date Resolved Date Obesity, Class III, BMI >= 40 02/26/2018 Peripheral neuropathy 01/21/2018 08/22/2021 Diabetes mellitus type 2, controlled, without co mplications 05/17/2015 08/23/2020 documented as of this encounter (statuses as of 03/20/2022) [facility] Narrative* Problem Noted Date Resolved Date Obesity, Class III, BMI >= 40 02/26/2018 Peripheral neuropathy 01/21/2018 08/22/2021 Diabetes mellitus type 2, controlled, without co mplications 05/17/2015 08/23/2020 documented as of this encounter (statuses as of 03/22/2022) [facility] Narrative* Problem Noted Date Resolved Date Obesity, Class III, BMI >= 40 02/26/2018 Peripheral neuropathy 01/21/2018 08/22/2021 Diabetes mellitus type 2, controlled, without co mplications 05/17/2015 08/23/2020 documented as of this encounter (statuses as of 03/25/2022) [facility] Narrative* Problem Noted Date Resolved Date Obesity, Class III, BMI >= 40 02/26/2018 Peripheral neuropathy 01/21/2018 08/22/2021 Diabetes mellitus type 2, controlled, without co mplications 05/17/2015 08/23/2020 documented as of this encounter (statuses as of 04/03/2022) [facility]* Problem Noted Date Resolved Date Obesity, Class III, BMI >= 40 02/26/2018 Peripheral neuropathy 01/21/2018 08/22/2021 Diabetes mellitus type 2, controlled, without co mplications 05/17/2015 08/23/2020 documented as of this encounter (statuses as of 04/18/2022) [facility]* Problem Noted Date Resolved Date Obesity, Class III, BMI >= 40 02/26/2018 Peripheral neuropathy 01/21/2018 08/22/2021 Diabetes mellitus type 2, controlled, without co mplications 05/17/2015 08/23/2020 documented as of this encounter (statuses as of 04/21/2022) [facility]* Problem Noted Date Resolved Date Obesity, Class III, BMI >= 40 02/26/2018 Peripheral neuropathy 01/21/2018 08/22/2021 Diabetes mellitus type 2, controlled, without co mplications 05/17/2015 08/23/2020 documented as of this encounter (statuses as of 05/15/2022) [facility] Narrative* Problem Noted Date Resolved Date Obesity, Class III, BMI >= 40 02/26/2018 Peripheral neuropathy 01/21/2018 08/22/2021 Diabetes mellitus type 2, controlled, without co mplications 05/17/2015 08/23/2020 documented as of this encounter (statuses as of 05/26/2022) [facility]* Problem Noted Date Resolved Date Obesity, Class III, BMI >= 40 02/26/2018 Peripheral neuropathy 01/21/2018 08/22/2021 Diabetes mellitus type 2, controlled, without co mplications 05/17/2015 08/23/2020 documented as of this encounter (statuses as of 06/12/2022) [facility]* Problem Noted Date Resolved Date Obesity, Class III, BMI >= 40 02/26/2018 Peripheral neuropathy 01/21/2018 08/22/2021 Diabetes mellitus type 2, controlled, without co mplications 05/17/2015 08/23/2020 documented as of this encounter (statuses as of 07/11/2022) [facility]arr[facility]* Problem Noted Date Resolved Date Obesity, Class III, BMI >= 40 02/26/2018 Peripheral neuropathy 01/21/2018 08/22/2021 Diabetes mellitus type 2, controlled, without co mplications 05/17/2015 08/23/2020 documented as of this encounter (statuses as of 08/07/2022) [facility]* Problem [...] of this encounter (statuses as of 09/19/2022) [facility]* Problem [...] of this encounter (statuses as of 10/02/2022) [facility]* Problem [...] of this encounter (statuses as of 10/05/2022) [facility]* Problem [...] of this encounter (statuses as of 10/17/2022) [facility]* Problem [...] of this encounter (statuses as of 11/03/2022) [facility]* Problem [...] of this encounter (statuses as of 11/17/2022) [facility]* Problem [...] of this encounter (statuses as of 11/30/2022) [facility]* Problem [...] of this encounter (statuses as of 12/13/2022) [facility]* Problem [...] of this encounter (statuses as of 12/28/2022) [facility]arr[facility]* Problem [...] of this encounter (statuses as of 01/25/2023) [facility] Diagnosis Encounter for screening mammogram for malignant neoplasm of breast- Primary Other screening [facility] Controlled type 2 diabetes mellitus without complication, without long-term current use of insulin (HCC)- Primary Vitamin B12 deficiency Other B-complex deficiencies Malabsorption syndrome Unspecified intestinal malabsorption Other vitamin B12 deficiency anemia Fatigue, unspecified type Other iron deficiency anemia Hypothyroidism, acquired Unspecified hypothyroidism Hypertriglyceridemia Pure hyperglyceridemia [facility] [...] [facility] Diagnosis Uncontrolled type 2 diabetes mellitus with hyperglycemia (HCC)- Primary Vitamin B12 deficiency Other B-complex deficiencies Controlled type 2 diabetes mellitus without complication, without long-term current use of insulin (HCC) Hypothyroidism, acquired Unspecified hypothyroidism Other vitamin B12 deficiency anemia Iron deficiency Iron deficiency anemia, unspecified Vitamin D deficiency Unspecified vitamin D deficiency [facility] Diagnosis Vitamin B12 deficiency- Primary Other B-complex deficiencies [facility] Diagnosis Controlled type 2 diabetes mellitus [...] Hypertriglyceridemia Pure hyperglyceridemia [facility] Diagnosis Vitamin B12 deficiency- Primary Other B-complex deficiencies [facility] Diagnosis RUQ abdominal pain- Primary Abdominal pain, right upper quadrant Calculus of gallbladder without cholecystitis without obstruction Calculus of gallbladder without mention of cholecystitis or obstruction Fatty liver Other chronic nonalcoholic liver disease [facility]* Diagnosis RUQ abdominal pain Abdominal pain, [...] nonalcoholic liver disease [facility] Diagnosis Essential hypertension with goal blood pressure less than 130/80 Hypertriglyceridemia Pure hyperglyceridemia Hypothyroidism, acquired Unspecified hypothyroidism Controlled type 2 diabetes mellitus without complication, without long-term current use of insulin ([facility]) Other iron deficiency anemia RUQ abdominal pain Abdominal pain, right upper quadrant Gallbladder calculus without cholecystitis and no obstruction Calculus of gallbladder without mention of cholecystitis or obstruction Fatty liver Other chronic nonalcoholic liver disease [facility]* Diagnosis Post-op pain- Primary Other acute postoperative pain S/P laparoscopic cholecystectomy Other postprocedural status [facility] Diagnosis Aftercare following surgery- Primary Encounter for other specified aftercare [facility] Diagnosis Vitamin B12 deficiency- Primary Other B-complex deficiencies [facility] Diagnosis Controlled type 2 diabetes mellitus [...] deficiency anemia, unspecified [facility] Diagnosis Other vitamin B12 deficiency anemia- Primary [facility] Diagnosis Other vitamin B12 deficiency anemia- Primary [facility]* Diagnosis Vitamin B12 deficiency- Primary Other B-complex deficiencies [facility]* Diagnosis Vitamin B12 deficiency- Primary Other B-complex deficiencies [facility]* Diagnosis Vitamin B12 deficiency- Primary Other B-complex deficiencies [facility] Diagnosis Controlled type 2 diabetes mellitus [...] nonalcoholic liver disease documented [facility]* Diagnosis Vitamin B12 deficiency- Primary Other B-complex deficiencies [facility]* Diagnosis 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 S/P colectomy Other postprocedural status Nausea Nausea alone documented in this encounter [facility] for referral (narrative)* Diagnostic Procedure Only (Routine) - Pending Review Specialty Diagnoses / Procedures Referred By Angela carey Referred To Contact [facility] Diagnoses Encounter for screening mammogram for malignant neoplasm of breast Procedures CAROLINE SCREENING W FLOR SCREENING DIGITAL BREAST TOMOSYNTHESIS BI SCREENING MAMMOGRAPHY BI 2-VIEW BREAST INC Jahaira Pineda, OLGA.BROACHING MACHINE SET UP OPERATOR [address] [place] [address] [facility] [address] [place] [address] Referral ID Status Reason Start Date Expiration Date Visits Requested Visits Authorized [id number] Pending Review Auto-Generat ed Referral 05/18/2021 06/17/2022 1 1 [facility] for referral (narrative)* Diagnostic Procedure Only (Routine) - Pending Review Specialty Diagnoses / Procedures Referred By Contac t Referred To Contact [facility] Diagnoses Encounter for screening mammogram for malignant neoplasm of breast Procedures CAROLINE SCREENING SCREENING MAMMOGRAPHY BI 2-VIEW BREAST INC CAD Jeff Pearce DO [address] [place] [address] [facility] [address] [place] [address] Referral ID Status Reason Start Date Expiration Date Visits Requested Visits Authorized [id number] Pending Review Auto-Generat ed Referral 02/20/2022 03/22/2023 1 1 [facility] Summary Purpose Family History No Family History Records FoundNo Family History Records FoundNo Family History Records Found Advance Directives No Advanced Directives Records FoundDocuments on File Type Date Recorded Patient Rn Interventional Expl anation Advance Directive(s) 04/23/2019 11:29 AM Advance Directive(s) 02/26/2018 8:33 AM Advance Directive(s) 02/22/2018 7:13 PM Documents on File Type Date Recorded Patient Rn Interventional Expl anation Advance Directive(s) 04/23/2019 11:29 AM Advance Directive(s) 02/26/2018 8:33 AM Advance Directive(s) 02/22/2018 7:13 PM Documents on File Type Date Recorded Patient Rn Interventional Expl anation Advance Directive(s) 04/23/2019 11:29 AM Documents on File Type Date Recorded Patient Rn Interventional Expl anation Advance Directive(s) 04/23/2019 11:29 AM [...] recent administrations Medication Order MAR Action Action Dose Rate Site cyanocobalamin 1,000 mcg injection [...] recent administrations Medication Order MAR Action Action Dose Rate Site cyanocobalamin 1,000 mcg injection [...] recent administrations Medication Order MAR Action Action Dose Rate Site cyanocobalamin 1,000 mcg injection [...] liver Procedures CONSULT TO GENERAL SURGERY OFFICE/OUTPATIENT [facility] MDM 60-74 MINUTES Jeff Pearce, DO [address] [place] [address] Referral ID Status Reason Start Date Expiration Date Visits Requested Visits Authorized [id number] Authorized PCP Requested Referral 03/21/2022 03/21/2023 1 1 Additional Source Comments INFORMATION SOURCE (unrecogn ized section and content) DATE CREATED AUTHOR AUTHOR'S ORGANIZ ATION 04/10/2022 [facility] DATE CREATED AUTHOR AUTHOR'S ORGANIZ ATION 04/11/2023 [facility] Source Comments (unrecognize d section and content) In the event this informatio n is protected by the Federal Confidentiality of Alcohol and Drug Abuse Patient Records regulations: The Federal rules restrict any use of the information to criminally investigate or prosecute any alcohol or drug abuse patient.[facility] Hospital[facility] the event this information is protected by the Federal Confidentiality of Alcohol and Drug Abuse Patient Records regulations: The Federal rules restrict any use of the information to criminally investigate or prosecute any alcohol or drug abuse patient.[facility] HospitalIn the event this information is protected by the Federal Confidentiality of Alcohol and Drug Abuse Patient Records regulations: The Federal rules restrict any use of the information to criminally investigate or prosecute any alcohol or drug abuse patient.[facility] HospitalIn the event this information is protected by the Federal Confidentiality of Alcohol and Drug Abuse Patient Records regulations: The Federal rules restrict any use of the information to criminally investigate or prosecute any alcohol or drug abuse patient.[facility] HospitalIn the event this information is protected by the Federal Confidentiality of Alcohol and Drug Abuse Patient Records regulations: The Federal rules restrict any use of the information to criminally investigate or prosecute any alcohol or drug abuse patient.[facility] HospitalIn the event this information is protected by the Federal Confidentiality of Alcohol and Drug Abuse Patient Records regulations: The Federal rules restrict any use of the information to criminally investigate or prosecute any alcohol or drug abuse patient.[facility] HospitalIn the event this information is protected by the Federal Confidentiality of Alcohol and Drug Abuse Patient Records regulations: The Federal rules restrict any use of the information to criminally investigate or prosecute any alcohol or drug abuse patient.[facility] HospitalIn the event this information is protected by the Federal Confidentiality of Alcohol and Drug Abuse Patient Records regulations: The Federal rules restrict any use of the information to criminally investigate or prosecute any alcohol or drug abuse patient.[facility] HospitalIn the event this information is protected by the Federal Confidentiality of Alcohol and Drug Abuse Patient Records regulations: The Federal rules restrict any use of the information to criminally investigate or prosecute any alcohol or drug abuse patient.[facility] HospitalIn the event this information is protected by the Federal Confidentiality of Alcohol and Drug Abuse Patient Records regulations: The Federal rules restrict any use of the information to criminally investigate or prosecute any alcohol or drug abuse patient.[facility] HospitalIn the event this information is protected by the Federal Confidentiality of Alcohol and Drug Abuse Patient Records regulations: The Federal rules restrict any use of the information to criminally investigate or prosecute any alcohol or drug abuse patient.[facility] HospitalIn the event this information is protected by the Federal Confidentiality of Alcohol and Drug Abuse Patient Records regulations: The Federal rules restrict any use of the information to criminally investigate or prosecute any alcohol or drug abuse patient.[facility] HospitalIn the event this information is protected by the Federal Confidentiality of Alcohol and Drug Abuse Patient Records regulations: The Federal rules restrict any use of the information to criminally investigate or prosecute any alcohol or drug abuse patient.[facility] HospitalIn the event this information is protected by the Federal Confidentiality of Alcohol and Drug Abuse Patient Records regulations: The Federal rules restrict any use of the information to criminally investigate or prosecute any alcohol or drug abuse patient.[facility] HospitalIn the event this information is protected by the Federal Confidentiality of Alcohol and Drug Abuse Patient Records regulations: The Federal rules restrict any use of the information to criminally investigate or prosecute any alcohol or drug abuse patient.[facility] HospitalIn the event this information is protected by the Federal Confidentiality of Alcohol and Drug Abuse Patient Records regulations: The Federal rules restrict any use of the information to criminally investigate or prosecute any alcohol or drug abuse patient.[facility] HospitalIn the event this information is protected by the Federal Confidentiality of Alcohol and Drug Abuse Patient Records regulations: The Federal rules restrict any use of the information to criminally investigate or prosecute any alcohol or drug abuse patient.[facility] HospitalIn the event this information is protected by the Federal Confidentiality of Alcohol and Drug Abuse Patient Records regulations: The Federal rules restrict any use of the information to criminally investigate or prosecute any alcohol or drug abuse patient.[facility] HospitalIn the event this information is protected by the Federal Confidentiality of Alcohol and Drug Abuse Patient Records regulations: The Federal rules restrict any use of the information to criminally investigate or prosecute any alcohol or drug abuse patient.[facility] HospitalIn the event this information is protected by the Federal Confidentiality of Alcohol and Drug Abuse Patient Records regulations: The Federal rules restrict any use of the information to criminally investigate or prosecute any alcohol or drug abuse patient.[facility] HospitalIn the event this information is protected by the Federal Confidentiality of Alcohol and Drug Abuse Patient Records regulations: The Federal rules restrict any use of the information to criminally investigate or prosecute any alcohol or drug abuse patient.[facility] HospitalIn the event this information is protected by the Federal Confidentiality of Alcohol and Drug Abuse Patient Records regulations: The Federal rules restrict any use of the information to criminally investigate or prosecute any alcohol or drug abuse patient.[facility] HospitalIn the event this information is protected by the Federal Confidentiality of Alcohol and Drug Abuse Patient Records regulations: The Federal rules restrict any use of the information to criminally investigate or prosecute any alcohol or drug abuse patient.[facility] HospitalIn the event this information is protected by the Federal Confidentiality of Alcohol and Drug Abuse Patient Records regulations: The Federal rules restrict any use of the information to criminally investigate or prosecute any alcohol or drug abuse patient.[facility] HospitalIn the event this information is protected by the Federal Confidentiality of Alcohol and Drug Abuse Patient Records regulations: The Federal rules restrict any use of the information to criminally investigate or prosecute any alcohol or drug abuse patient.[facility] HospitalIn the event this information is protected by the Federal Confidentiality of Alcohol and Drug Abuse Patient Records regulations: The Federal rules restrict any use of the information to criminally investigate or prosecute any alcohol or drug abuse patient.[facility] HospitalIn the event this information is protected by the Federal Confidentiality of Alcohol and Drug Abuse Patient Records regulations: The Federal rules restrict any use of the information to criminally investigate or prosecute any alcohol or drug abuse patient.[facility] HospitalIn the event this information is protected by the Federal Confidentiality of Alcohol and Drug Abuse Patient Records regulations: The Federal rules restrict any use of the information to criminally investigate or prosecute any alcohol or drug abuse patient.[facility] HospitalIn the event this information is protected by the Federal Confidentiality of Alcohol and Drug Abuse Patient Records regulations: The Federal rules restrict any use of the information to criminally investigate or prosecute any alcohol or drug abuse patient.[facility] HospitalIn the event this information is protected by the Federal Confidentiality of Alcohol and Drug Abuse Patient Records regulations: The Federal rules restrict any use of the information to criminally investigate or prosecute any alcohol or drug abuse patient.[facility] HospitalIn the event this information is protected by the Federal Confidentiality of Alcohol and Drug Abuse Patient Records regulations: The Federal rules restrict any use of the information to criminally investigate or prosecute any alcohol or drug abuse patient.[facility] HospitalIn the event this information is protected by the Federal Confidentiality of Alcohol and Drug Abuse Patient Records regulations: The Federal rules restrict any use of the information to criminally investigate or prosecute any alcohol or drug abuse patient.[facility] HospitalIn the event this information is protected by the Federal Confidentiality of Alcohol and Drug Abuse Patient Records regulations: The Federal rules restrict any use of the information to criminally investigate or prosecute any alcohol or drug abuse patient.[facility] HospitalIn the event this information is protected by the Federal Confidentiality of Alcohol and Drug Abuse Patient Records regulations: The Federal rules restrict any use of the information to criminally investigate or prosecute any alcohol or drug abuse patient.[facility] HospitalIn the event this information is protected by the Federal Confidentiality of Alcohol and Drug Abuse Patient Records regulations: The Federal rules restrict any use of the information to criminally investigate or prosecute any alcohol or drug abuse patient.[facility] HospitalIn the event this information is protected by the Federal Confidentiality of Alcohol and Drug Abuse Patient Records regulations: The Federal rules restrict any use of the information to criminally investigate or prosecute any alcohol or drug abuse patient.[facility] HospitalIn the event this information is protected by the Federal Confidentiality of Alcohol and Drug Abuse Patient Records regulations: The Federal rules restrict any use of the information to criminally investigate or prosecute any alcohol or drug abuse patient.[facility] Reason for Visit (unrecogniz ed section [...] 60-74 MINUTES Jeff Pearce L, DO [address] [place] [address] Referral ID Status Reason Start Date Expiration Date V isits Requested Visits Authorized [id number] Closed PCP Requested Referral 03/21/2022 03/21/2023 1 1 Reason Comments Consult Reason Comments Surgical Follow Up Lap carter post op Specialty Diagnoses / Procedures Referred By Angela carey Referred To Contact General Surgery / GENERAL SURGERY Diagnoses post op lap carter, wanted sooner appt Procedures OFFICE/OUTPATIENT ESTABLISHED HIGH MDM 40-54 MIN EST DDI PATIENT Amado Campos PA-C [address] [place] [address] Amado Campos PA-C [address] [place] [address] Referral ID Status Reason Start Date Expiration Date Visits Re quested Visits Authorized [id number] Closed 04/10/2022 02/11/2023 1 1 Reason Comments Post Op Follow Up 04/10/22 LAP CARTER Reason Onset Date Comments Transition Of Care 03/15/2023 TCM Initial O utreach: [facility] [place] 03/11/23, RLQ abdominal pain Reason Comments Hospital F/U Colon cancer Care Teams (unrecognized sec tion and content) Logistical Engineer Relationship Specialty Start Date End Date Jeff Pearce, DO [address] [place] [address] PCP - General Family Practice 09/28/15 Logistical Engineer Relationship Specialty Start Date End Date Jeff Pearce, DO [address] [place] [address] PCP - General Family Practice 09/28/15 Logistical Engineer Relationship Specialty Start Date End Date Jeff Pearce DO [address] [place] [address] PCP - General Family Practice 09/28/15 Logistical Engineer Relationship Specialty Start Date End Date Jeff Pearce DO [address] [place] [address] PCP - General Family Practice 09/28/15 Logistical Engineer Relationship Specialty Start Date End Date Jeff Pearce, DO [address] [place] [address] PCP - General Family Practice 09/28/15 Logistical Engineer Relationship Specialty Start Date End Date Jeff Pearce, DO [address] [place] [address] PCP - General Family Practice 09/28/15 Logistical Engineer Relationship Specialty Start Date End Date Jeff Pearce, DO [address] [place] [address] PCP - General Family Practice 09/28/15 Logistical Engineer Relationship Specialty Start Date End Date Jeff Pearce, DO [address] [place] [address] PCP - General Family Medicine 09/28/15 Logistical Engineer Relationship Specialty Start Date End Date Jeff Pearce, DO [address] [place] [address] PCP - General Family Medicine 09/28/15 Logistical Engineer Relationship Specialty Start Date End Date Jeff Pearce, DO [address] [place] [address] PCP - General Family Medicine 09/28/15 Logistical Engineer Relationship Specialty Start Date End Date Jeff Pearce, DO [address] [place] [address] PCP - General Family Medicine 09/28/15 Logistical Engineer Relationship Specialty Start Date End Date Jeff Pearce, DO [address] [facility] [place] [address] PCP - General Family Medicine 09/28/15 Logistical Engineer Relationship Specialty Start Date End Date Jeff Pearce, DO [address] [facility] [place] [address] PCP - General Family Medicine 09/28/15 Logistical Engineer Relationship Specialty Start Date End Date Jeff Pearce, DO [address] [facility] [place] [address] PCP - General Family Medicine 09/28/15 Logistical Engineer Relationship Specialty Start Date End Date Jeff Pearce, DO [address] [place] [address] PCP - General Family Medicine 09/28/15 Logistical Engineer Relationship Specialty Start Date End Date Jeff Pearce, DO [address] [place] [address] PCP - General Family Medicine 09/28/15 Logistical Engineer Relationship Specialty Start Date End Date Jeff Pearce, DO [address] [place] [address] PCP - General Family Medicine 09/28/15 Logistical Engineer Relationship Specialty Start Date End Date Jeff Pearce DO [address] [place] [address] PCP - General Family Medicine 09/28/15 Logistical Engineer Relationship Specialty Start Date End Date Jeff Pearce DO [address] [facility] [place] [address] PCP - General Family Medicine 09/28/15 Logistical Engineer Relationship Specialty Start Date End Date Jeff Pearce DO [address] [facility] [place] [address] PCP - General Family Medicine 09/28/15 Logistical Engineer Relationship Specialty Start Date End Date Jeff Pearce DO [address] [facility] [place] [address] PCP - General Family Medicine 09/28/15 Logistical Engineer Relationship Specialty Start Date End Date Jeff Pearce DO [address] [facility] [place] [address] PCP - General Family Medicine 09/28/15 Logistical Engineer Relationship Specialty Start Date End Date Jeff Pearce DO [address] [facility] [place] [address] PCP - General Family Medicine 09/28/15 Logistical Engineer Relationship Specialty Start Date End Date Jeff Pearce DO [address] [facility] [place] [address] PCP - General Family Medicine 09/28/15 Logistical Engineer Relationship Specialty Start Date End Date Jeff Pearce DO [address] [place] [address] PCP - General Family Medicine 09/28/15 Logistical Engineer Relationship Specialty Start Date End Date Jeff Pearce DO [address] [place] [address] PCP - General Family Medicine 09/28/15 Logistical Engineer Relationship Specialty Start Date End Date Jeff Pearce DO [address] [place] [address] PCP - General Family Medicine 09/28/15 Tiffany Evangelista, ROBERT [address] [id number] Primary Care Privacy Officer 03/15/23 Logistical Engineer Relationship Specialty Start Date End Date Jeff Pearce DO [address] [place] [address] PCP - General Family Medicine 09/28/15 Tiffany Evangelista, RN [address] [place] [address] Primary Care Privacy Officer 03/15/23 Logistical Engineer Relationship Specialty Start Date End Date Jeff Pearce DO [address] [place] [address] PCP - General Family Medicine 09/28/15 Tiffany Evangelista, ROBERT [address] [place] [address] Primary Care Privacy Officer 03/15/23 Logistical Engineer Relationship Specialty Start Date End Date Jeff Pearce DO [address] [place] [address] PCP - General Family Medicine 09/28/15 Tiffany Evangelista, RN [address] [place] [address] Primary Care Privacy Officer 03/15/23 Active Administered Medications - up to [...] BE BASED ON THE PRIMARY CLINICAL RECORDS. [email or web address] provides no warranty or guarantee of the accuracy or completeness of information in this document.
[2023-04-12 17:07] LABS: Endomysial Antibody IgA Negative (Negative); Immunoglobulin A 183 mg/dL (64-422); t-Transglutaminase IgA <2 U/mL (0-3)
== END | disposition home or self-care (01) ==
PROVIDERS: PCP Student in an Organized Health Care Education/Training Program; Referring Provider Internal Medicine Gastroenterology; Visit Provider Internal Medicine Gastroenterology
DX: D64.9 Anemia, unspecified (principal)
CPT/HCPCS: 36415; 82728; 82784; 83516; 85027; 86255

== ENCOUNTER → 2023-05-23 | Outpatient (CLI) | payer MEDICARE, SELFPAY ==
--- NOTE | 2023-05-23 09:55 | BI_ITS ---
MAMMOGRAPHY - BILATERAL SCREENING REASON FOR EXAM: Female, 78 years old. Routine annual screening examination. PERTINENT HISTORY: Non-contributory. Remote left stereotactic breast biopsies. TECHNIQUE: Digital bilateral breast flor (3D mammographic acquisition) in the CC and MLO projections. 2-D mediolateral oblique (MLO) and craniocaudad (CC) views of both breasts were obtained. CAD: Full Field Digital Mammography with Computer Added Detection was performed. COMPARISON: Comparison is made with prior examination of May 22, 2022 and May 20, 2021. FINDINGS: Breast Composition: There are scattered areas of fibroglandular density. There are no dominant masses or suspicious calcifications. A tissue clip marker is seen in the deep upper lateral posterior aspect of the left breast. Stable scattered bilateral calcifications. No focal cluster is seen. No other significant abnormalities are identified. There has been no significant change since the prior study. BI/SCRN MAMM (CAD)W/FLOR BILAT IMPRESSION: Stable bilateral screening mammogram. Yearly follow-up mammogram recommended. (A) ASSESSMENT CATEGORY: BIRADS Category 2: Benign. A letter regarding these results will be sent to the patient by the facility within 30 days. Approximately 10% of breast cancers are not detected by mammography. A normal mammogram should not delay biopsy of a clinically suspicious abnormality. [id number] Electronically Signed: Antonio Matamoros MD at 12:42 EDT ,
== END | disposition home or self-care (01) ==
LOC: OPBI 09:53
PROVIDERS: PCP Student in an Organized Health Care Education/Training Program; Referring Provider Student in an Organized Health Care Education/Training Program; Visit Provider Student in an Organized Health Care Education/Training Program
DX: Z12.31 Encounter for screening mammogram for malignant neoplasm of breast (principal)
CPT/HCPCS: 77063; 77067

== ENCOUNTER → 2023-07-06 | Outpatient (CLI) | payer MEDICARE, SELFPAY | END | disposition home or self-care (01) | LOC: PAVLAB 08:26 | PROVIDERS: PCP Student in an Organized Health Care Education/Training Program; Visit Provider Internal Medicine Medical Oncology | DX: C18.2 Malignant neoplasm of ascending colon (principal) | CPT/HCPCS: 36415 ==

== ENCOUNTER → 2023-10-10 | Outpatient (CLI) | payer MEDICARE, SELFPAY ==
--- NOTE | 2023-10-10 13:03 | CT_ITS ---
STUDY: CT ABDOMEN AND PELVIS WITH CONTRAST REASON FOR EXAM: Female, 78 years old. Diffuse abdominal pain, known colon cancer RADIATION DOSAGE (If Supplied By Facility): CTDIvol = ( 16.91 ) mGy, DLP = ( 1011.98 ) mGycm TECHNIQUE: Transaxial images were obtained from the dome of the diaphragm to the symphysis pubis without oral contrast. IV 100mL Isovue-300 was administered. Sagittal and coronal images were reconstructed. Individualized dose optimization techniques were used for this CT. COMPARISON: 03/06/2023 FINDINGS: The visualized lung bases are unremarkable aside from platelike atelectasis in the right lung base. The visualized portions of the heart are within normal limits. There is decreased attenuation of the liver consistent with steatosis. There is non-visualization of the gallbladder, which may be secondary to either contraction or a prior cholecystectomy. Normal spleen. Normal pancreas. Normal bilateral adrenal glands. No obstructive uropathy, or suspicious solid renal lesion, there are stable parapelvic renal cysts. Incidental note is made of a retroaortic left renal vein Normal visualized stomach. Small bowel loops are unremarkable, there has been a previous surgical anastomosis in the mid transverse colon, there is a focal distention of bowel here consistent with a focal ileus. No anastomotic leak is noted. The colon distal to the anastomosis is abnormal with submucosal thickening along with pericolonic inflammatory stranding consistent with a diffuse colitis. This involves the distal transverse and descending colon. There is no perforation or abscess. Pseudomembranous colitis could have this appearance. The sigmoid shows some scattered diverticula but is otherwise unremarkable. There is non-visualization of the appendix. Normal abdominal aorta. Normal inferior vena cava. There are scattered subcentimeter in short axis dimension mesenteric and retroperitoneal lymph nodes, these are likely reactive. Normal urinary bladder. Uterus is present, the endometrium cannot be accurately evaluated with CT. No suspicious cystic mass or free fluid. Normal abdominal wall. Bony structures show degenerative change with stable grade 1 spondylolisthesis at L4-5 CT/Abdomen/Pelvis W IV Cont ONLY IMPRESSION: Abnormal submucosal thickening of the distal transverse colon along with the entire descending colon with pericolonic inflammatory stranding but no perforation or abscess. Findings consistent with a diffuse colitis, likely infectious or inflammatory, pseudomembranous colitis can have this appearance. Focal ileus at the site of previous anastomosis in the mid transverse colon which is fluid distended but there is no wall thickening or evidence of inflammation, no bile leak is noted Fatty liver, no discrete lesion Parapelvic renal cysts, no specific follow-up needed. Subcentimeter in short axis dimension mesenteric and retroperitoneal lymph nodes likely reactive. No bulky adenopathy noted Uterus is present, the endometrium cannot be accurately evaluated with CT Electronically Signed: Faizan Collier MD at 15:33 EDT ,
== END | disposition home or self-care (01) ==
PROVIDERS: PCP Student in an Organized Health Care Education/Training Program; Referring Provider Internal Medicine Medical Oncology; Visit Provider Internal Medicine Medical Oncology
DX: C18.2 Malignant neoplasm of ascending colon (principal); R19.7 Diarrhea, unspecified; R10.31 Right lower quadrant pain
CPT/HCPCS: 74177; Q9967

== ENCOUNTER 2023-10-16 11:34 | Inpatient (IN) | payer MEDICARE, SELFPAY ==
[2023-10-16] VITALS (7 sets, daily range): BP systolic 92–119; BP diastolic 30–65; PULSE 85–91; RESP 15–19; TEMP 35.7–36.8; O2SAT 97–100; BMI 31.0; BMI 31.1
[2023-10-16 13:25] LABS: Absolute Lymphocyte Count 2.02 X10^3/uL (0.83-4.51); Absolute Neutrophil Count 5.8 X10^3/uL (2.0-7.7); Basophil# 0.04 X10^3/uL; Basophil% 0.4 % (0-1); Eosinophil# 0.04 X10^3/uL; Eosinophils% 0.4 % (0-5); Hematocrit 35.7 % (37-47); Hemoglobin 11.1 g/dL (12.0-15.0); Lymphocyte # 2.02 X10^3/ul (0.83-4.51); Lymphocyte % 21.7 % (19-41); Mean Corp Hgb Conc 31.1 g/dL (32-36); Mean Corpuscular Hgb 23.9 pg (27.0-32.0); Mean Corpuscular Volume 76.9 fL (81-99); Mean Platelet Vol. 8.3 fl (6.2-12.0); Monocyte# 1.17 X10^3/uL; Monocyte% 12.6 % (0-10); NRBC Flagged by Analyzer 0 % (0-5); Neutrophil % 62.2 % (47-70); POSITIVE MORPHOLOGY YES; Platelet Count 583 K/mm3 (150-450); RBC Distribution Width CV 14.1 % (11.6-14.6); RBC Distribution Width SD 37.5 fl (35.1-43.9); Red Blood Count 4.64 M/mm3 (4.2-5.4); White Blood Count 9.3 K/mm3 (4.4-11.0)
[2023-10-16 13:29] LABS: Differential Indicated SCAN CRITERIA MET
[2023-10-16 13:43] LABS: ALB/GLOB Ratio 0.4 RATIO (0.9-2.4); AST(SGOT) 12 U/L (15-37); Alanine Aminotransfer ALT/SGPT 11 U/L (13-56); Albumin, Serum 1.6 g/dL (3.2-5.0); Alkaline Phosphatase 111 U/L (45-117); Anion Gap 9 (5-15); BUN 13 mg/dL (7-18); BUN/Creat Ratio 18.4 RATIO (10-20); Calcium,Total 8.4 mg/dL (8.5-10.1); Chloride 105 mmol/L (98-107); Creatinine, Serum 0.71 mg/dL (0.55-1.02); EST Glomerular Filtration Rate 85 mL/min (>60); Est Glom Filt Rate - Afr Amer 103 mL/min (>60); Globulin 4.3 g/dL (2.2-4.2); Glucose 122 mg/dL (74-106); Potassium 4.1 mmol/L (3.5-5.1); Protein, Total 5.9 g/dL (6.4-8.2); Sodium Level 137 mmol/L (136-145)
--- NOTE | 2023-10-16 14:07 | CT_ITS ---
HISTORY: Pain. TECHNIQUE: Helically acquired images were obtained of the abdomen and pelvis without oral or IV contrast. A radiation dose optimization technique was used for this scan. 478 images. COMPARISON: 10/10/2023 FINDINGS: LOWER CHEST: Mild atelectasis in the lung bases. BOWEL: Bowel nondilated. Proximal colectomy with ileocolic anastomosis at the mid transverse colon. Slightly decreased moderate wall thickening from the patulous anastomosis to the distal transverse colon colonic wall thickening with pericolonic stranding, prominence of the vasa recta, and small pericolonic lymph nodes. Sigmoid diverticulosis without perisigmoid inflammation. PERITONEUM: No significant free fluid. LIVER: Fatty infiltration. GALLBLADDER/BILIARY TREE: Gallbladder not visualized. SPLEEN: Nonenlarged. PANCREAS: Atrophic. ADRENAL GLANDS: Unremarkable. KIDNEYS AND URETERS: Bilateral renal sinus cysts. 2 mm nonobstructing left renal calculus. No obstructing ureteral calculus on either side. VESSELS: No abdominal aortic aneurysm. Mild atherosclerosis. PELVIC ORGANS: Chronic small calcification at the posterior aspect of the uterus. ABDOMINAL WALL: Lower anterior scarring with rectus diastasis and small fat-containing ventral hernias . Incompletely imaged subcutaneous fluid collection over the left hip again seen BONES: Intact. CT/Abdomen/Pelvis without Cont IMPRESSION: Moderate colitis of the mid transverse to distal descending colon, mildly decreased from prior. Colonic diverticulosis without acute diverticulitis. Proximal colectomy. Hepatic steatosis. Small nonobstructing left renal calculus. Electronically Signed: Maggie Epperson MD at 15:12 EDT ,
--- NOTE | 2023-10-16 14:08 | EDS_ITS ---
HPI HPI - GI History of Present Illness Chief Complaint: Abd Pain Narrative Narrative: 78-year-old female past medical history of colon carcinoma, presents with 5 days of nausea, vomiting, and diarrhea, along with black stool. She relates history that she was hospitalized for colon mass. She states that it burst open before Dr. Ballard had a chance to remove it. She did have surgery and has had prior cholecystectomy and appendectomy. Over the last 5 days, she has had nausea and vomiting which is essentially resolved but loose stool and black stool. She endorses weakness but denies any fever. She has been chilled all summer. She complains of abdominal pain on the right side of her abdomen where she had her surgery. No exacerbating or alleviating factors. She states she saw her oncologist today, Dr. Singh, who advised her to come to the emergency department for further evaluation. 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 Anemia Hypothyroidism Chronic pain Rheumatoid arthritis GERD (gastroesophageal reflux disease) Non-smoker Irregular heart beat Hypertension Migraines Seizures Diabetes mellitus Home Medications ?Medication ?Instructions ?Recorded ?Last Taken ?Type ondansetron 4 mg disintegrating 4 mg PO Q8H PRN PRN Nausea #20 tabs 12/21/20 Unknown Rx tablet aspirin 81 mg capsule 81 mg PO DAILY HEART 03/05/23 Unknown History famotidine 1 tab PO DAILY INDIGESTION 03/05/23 Unknown History fexofenadine 1 tab PO DAILY ALLERGIES 03/05/23 Unknown History glimepiride 2 mg tablet 2 mg PO DAILY diabetes 03/05/23 Unknown History levothyroxine 150 mcg tablet 150 mcg PO QHS thyroid 03/05/23 Unknown History losartan 50 mg tablet 50 mg PO DAILY blood pressure 03/05/23 Unknown History metformin 500 mg tablet 1,000 mg PO BID diabetes 03/05/23 Unknown History metronidazole 500 mg tablet 500 mg PO Q8H 7 days #21 tabs 03/11/23 Unknown Rx oxycodone 5 mg tablet 5 mg PO Q6H PRN PRN Pain Score 03/11/23 Unknown Rx 6-10 5 days #10 tabs Allergy/AdvReac Type Severity Reaction Status Date / Time Corticosteroids Allergy Severe Shortness Verified 10/16/23 11:37 (Glucocorticoids) (steroids) of breath acetaminophen (From Tylenol) Allergy Intermediate Shortness Verified 10/16/23 11:37 of breath aspirin Allergy Intermediate Shortness Verified 10/16/23 11:37 of breath diphenhydramine (From Allergy PT UNSURE Verified 10/16/23 11:37 Benadryl) OF REACTION Penicillins Allergy PT UNSURE Verified 10/16/23 11:37 OF REACTION Beef Containing Products AdvReac Other Verified 10/16/23 11:37 [place] And Derivatives AdvReac Other Verified 10/16/23 11:37 Food Allergies: Uncoded AdvReac Vomiting Verified 10/16/23 11:37 Surgical History Status post right hemicolectomy Hx of cholecystectomy Social History Smoking Status: Never smoker alcohol intake: never ROS ROS ED ROS Narrative Constitutional: No fever, positive chills. HEENT: No sore throat. No neck pain. No loss of vision. No rhinorrhea. Cardiovascular: No chest pain. No palpitations. No pedal edema. Respiratory: No cough, no shortness of breath. Abdominal: Right-sided abdominal pain. Positive nausea and vomiting over the last 5 days, improving. Positive loose, black stool. Genitourinary: No dysuria. No hematuria. Musculoskeletal: No myalgias. No arthralgias. Neurologic: No headaches. No dizziness. No lightheadedness. Skin: No rash. No change in color. Psychiatric: No depression. No anxiety. EXAM Physical Exam Narrative Exam Narrative: Afebrile. Vital signs noted. Nontoxic-appearing. HEENT: Normocephalic. Atraumatic. PERRL, EOMI. Neck soft and supple. No point tenderness or step off. Cardiovascular: Regular rate and rhythm. No murmurs, rubs, or gallops appreciated. Respiratory: No tachypnea. Lungs clear to auscultation bilaterally. Gastrointestinal: Abdomen soft, mild tenderness to palpation right flank to diffuse, with normoactive bowel sounds. No rebound or guarding. Neurological: Awake. Alert. Nonfocal, nonlateralizing. Skin: No rash. Normal color. No pallor. Musculoskeletal: No pedal edema. Full range of motion extremities. Const Vital Signs: 10/16/23 11:37 10/16/23 13:35 10/16/23 15:00 Temperature 96.2 F L Temperature Source Temporal Pulse Rate 86 Respiratory Rate 15 18 Blood Pressure 101/59 L 93/65 106/42 L Blood Pressure Mean 73 74 63 Pulse Ox 100 Oxygen Delivery Method Room Air Room Air MDM MDM MDM Narrative Medical decision making narrative: Differential diagnosis includes but not limited to partial small bowel obstruction versus nonspecific abdominal pain versus GI bleeding versus diverticulitis. I have lower suspicion for ureterolithiasis because the history and physical does not support this. She may also have more of a gastroenteritis. She does relate history that she always has bleeding from her GI tract, so GI bleeding is nothing new for her. I reviewed her laboratory work and she has normal white count 9.3, hemoglobin stable at 11.1, hematocrit 35.7, platelet count elevated at 583 which I think is nonspecific and may be more of an acute phase reactant. Review of the CMP shows glucose elevated at 122 with a normal anion gap of 9. Normal sodium of 137 and potassium 4.1. Lipase is less than 10 so I doubt pancreatitis. I reviewed her CT from previous, she had 1 on Sunday of last week. It did show diffuse colitis. I did repeated today without contrast to help rule out abscess as she states that she was sent in by Dr. Singh and her friend states that colitis was mentioned today. When I asked her if she has a history of Crohn's versus ulcerative colitis she states she does not know, but she has seen Dr. Crystal in the past and has an upcoming colonoscopy with him. I reviewed the radiology report of the CT of the abdomen and pelvis without contrast and she has moderate colitis of the mid transverse to distal descending colon, but no evidence of abscess or obstruction. I we will start her on a dose of Cipro and Flagyl intravenously. Repeat examination even after analgesics intravenously shows her to have continued abdominal pain. I will discuss the patient with the hospitalist for at least observation and probable GI consultation for further treatment and for pain control. I discussed patient with Dr. Peterson. Disposition is admit to the general medical floor in stable condition. History & Record Review Discussion w/independent historian: Patient Additional record(s) reviewed:: Prior ED visit Lab Data Attestation: I reviewed the patient's lab results. Labs: Laboratory Results - last 24 hr 10/16/23 10/16/23 13:15 15:00 WBC 9.3 RBC 4.64 Hgb 11.1 L Hct 35.7 L MCV 76.9 L MCH 23.9 L MCHC 31.1 L RDW Std Deviation 37.5 RDW Coeff of Anand 14.1 Plt Count 583 H MPV 8.3 Immature Gran % (Auto) 2.700 H Neut % (Auto) 62.2 Lymph % (Auto) 21.7 Day % (Auto) 12.6 H Eos % (Auto) 0.4 Baso % (Auto) 0.4 Absolute Neuts (auto) 5.8 Absolute Lymphs (auto) 2.02 Nucleated RBC % 0 Sodium 137 Potassium 4.1 Chloride 105 Carbon Dioxide 23.0 Anion Gap 9 BUN 13 Creatinine 0.71 Est GFR (MDRD) Af Amer 103 Est GFR (MDRD) Non-Af 85 BUN/Creatinine Ratio 18.4 Glucose 122 H Calcium 8.4 L Total Bilirubin 0.40 AST 12 L ALT 11 L Alkaline Phosphatase 111 Total Protein 5.9 L Albumin 1.6 L Globulin 4.3 H Albumin/Globulin Ratio 0.4 L Lipase < 10 L Urine Color Ирина Urine Clarity Cloudy Urine pH 6.0 Ur Specific [place] 1.020 Urine Protein 30 H Urine Glucose (UA) Normal Urine Ketones 5 H Urine Occult Blood 10 H Urine Nitrite Negative Urine Bilirubin 3 H Urine Urobilinogen 1 H Ur Leukocyte Esterase 25 H Urine RBC 0-5 SEEN Urine WBC 0-5 SEEN Ur Squamous Epith Cells 0-5 SEEN Ur Transition Epith Cell 5-10 SEEN Ur Renal Epithelial Cell 5-10 SEEN Urine Bacteria 1+ Hyaline Casts 5-10 SEEN Urine Mucus 4+ Radiography Diagnostic Testing: Clinical Impression(s) from Imaging Studies Abdomen/Pelvis CT 10/16/23 14:07 IMPRESSION: Moderate colitis of the mid transverse to distal descending colon, mildly decreased from prior. Colonic diverticulosis without acute diverticulitis. Proximal colectomy. Hepatic steatosis. Small nonobstructing left renal calculus. Electronically Signed: Maggie Epperson MD at 15:12 EDT , Discharge Plan Dx/Rx/DC Orders Clinical Impression: Colitis, Abdominal pain, Status post right hemicolectomy, History of colon cancer Disposition Disposition: Acute Care Hospital [facility]
[2023-10-16] MEDS: Morphine 4 MG/ML Syringe IV (14:19)
[2023-10-16] MEDS: Ondansetron 4 MG/2 ML Vial IV (14:19)
[2023-10-16] MEDS: 0.9% Normal Saline (1000mL) 1,000 ML 999 ML IV ×2 (14:19→18:08)
[2023-10-16 14:47] LABS: Lipase < 10 U/L (13-75)
[2023-10-16 15:16] LABS: Color, Urine Amber (Yellow); Glucose, Dipstick Normal (Normal); Ketone-Dipstick 5 mg/dl (Negative); Leukocyte Esterase-Dipstick 25 /ul (Negative); Nitrite-Dipstick Negative (Negative); Occult Blood-Urine 10 /ul (Negative); Protein-Dipstick 30 mg/dl (Negative); Urine Clarity Cloudy (Clear); Urine Urobilinogen 1 mg/dl (Normal)
[2023-10-16 15:37] LABS: Urine Bilirubin Dipstick 3 mg/dL (Negative)
[2023-10-16 15:39] LABS: Mucous, Urine 4+ /hpf (<or=2+)
[2023-10-16 15:40] LABS: White Blood Cells 0-5 SEEN /hpf (0-5)
[2023-10-16 15:41] LABS: Bacteria 1+ /hpf (None Seen); Hyaline Cast 5-10 SEEN /lpf (0-5)
[2023-10-16 15:45] LABS: Renal Epithelial Cells 5-10 SEEN /hpf (0-5); Squamous Epithelial Cells - UA 0-5 SEEN /hpf (5-10); Transitional Epithelial - Ur 5-10 SEEN /hpf (0-5)
[2023-10-16 15:46] LABS: Red Blood Cells-Urine 0-5 SEEN /hpf (0-5)
[2023-10-16] MEDS: Ciprofloxacin 400 MG/200 ML BAG 200 MG IV ×2 (16:08→22:45)
--- NOTE | 2023-10-16 16:12 | HP.PCM.HOS_ITS ---
HPI - General General Date of Admission: 10/16/23 Date of Service: 10/16/23 Chief Complaint: abdominal pain HPI Narrative AMADO QUEEN, is a 78 F with a past medical history as outlined including adenocarcinoma in the ascending colon for which she had laparotomy with right hemicolectomy on 03/05/2023. She had presented with abdominal pain at that time and imaging done showed retrocecal abscess concerning for possible neoplastic perforation or diverticulitis with no evidence of metastatic disease. She was diagnosed with colon cancer stage IIa with about 20 lymph nodes being negative by biopsy. Patient had elected for subsequent observation. She came in this time with a complaint of abdominal pain which had been going on for the past several days. Pain was mainly in her lower abdomen, with no aggravating or relieving factors. She denied any fever or chills, and denied any nausea or vomiting. She admitted to dark stools but says she is on iron supplements and so is not sure whethere the dark stools are due to iron supplementation or blood in her stool.She went to see her her oncologist today and was told that she should come to the ED for evaluation. Review of systems was otherwise negative. Vitals in the ED were Temp of 96.2F, SD of 91, RR of 19 and BP of 92/56 at time of review. She was saturating at 97% on room air. CBC showed WBC of 9.3, hemoglobin of 11.1 and platelets of 583. Chemistry was essentially unremarkable. Urinalysis showed 1+ bacteria but 0-5 WBC and [address] of the abdomen and pelvis showed moderate colitis of the mid transverse to distal descending colon which is mildly decreased from prior and colonic diverticulosis without active diverticulitis as well as proximal colectomy and hepatic steatosis with small nonobstructing left renal calculus. She is being admitted to be managed for acute colitis and was started on IV ciprofloxacin and metronidazole. 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 left eye Anemia Hypothyroidism Chronic pain Rheumatoid arthritis GERD (gastroesophageal reflux disease) Non-smoker Irregular heart beat Hypertension Migraines Seizures Diabetes mellitus Home Medications ?Medication ?Instructions ?Recorded ?Last Taken ?Type aspirin 81 mg capsule 81 mg PO DAILY HEART 03/05/23 10/16/23 History glimepiride 2 mg tablet 2 mg PO DAILY diabetes 03/05/23 10/16/23 History levothyroxine 150 mcg tablet 150 mcg PO QHS thyroid 03/05/23 10/15/23 History losartan 50 mg tablet 50 mg PO DAILY blood pressure 03/05/23 10/16/23 History metformin 500 mg tablet 1,000 mg PO BID diabetes 03/05/23 10/16/23 History famotidine 20 mg tablet (Acid 20 mg PO DAILY 10/16/23 10/16/23 History Controller) fexofenadine 180 mg tablet 180 mg PO QHS 10/16/23 10/15/23 History Allergy/AdvReac Type Severity Reaction Status Date / Time Corticosteroids Allergy Severe Shortness Verified 10/16/23 11:37 (Glucocorticoids) (steroids) of breath acetaminophen (From Tylenol) Allergy Intermediate Shortness Verified 10/16/23 11:37 of breath aspirin Allergy Intermediate Shortness Verified 10/16/23 11:37 of breath diphenhydramine (From Allergy PT UNSURE Verified 10/16/23 11:37 Benadryl) OF REACTION Penicillins Allergy PT UNSURE Verified 10/16/23 11:37 OF REACTION Beef Containing Products AdvReac Other Verified 10/16/23 11:37 [place] And Derivatives AdvReac Other Verified 10/16/23 11:37 Food Allergies: Uncoded AdvReac Vomiting Verified 10/16/23 11:37 Surgical History Status post right hemicolectomy Hx of cholecystectomy Social History Smoking Status: Never smoker alcohol intake: never ROS Constitutional Constitutional: Reports fatigue; Denies anorexia, chills, fever(s), malaise or weakness Eyes Eyes: Denies change in vision ENT HEENT: Denies dysphagia, headache(s), nasal congestion, nasal discharge or sore throat Cardiovascular Cardiovascular: Denies chest pain, dyspnea on exertion, edema, lightheadedness, orthopnea, palpitations, rapid heart rate or syncope Respiratory/Chest Respiratory/Chest: Denies cough, dyspnea, shortness of breath at rest or shortness of breath with exertion Gastrointestinal Gastrointestinal: Reports abdominal pain and melena; Denies constipation, diarrhea, dyspepsia, hematemesis, hematochezia, loose stools, nausea or vomiting Genitourinary Genitourinary: Denies burning urination or dysuria Musculoskeletal Musculoskeletal: Denies arthralgias Neurologic Neurologic: Denies confusion, disequilibrium, dizziness, focal weakness, headache(s), numbness, paresthesias, seizure-like activity or seizures Psychiatric Psychiatric: Denies anxiety Endocrine Endocrinology: Denies change in body appearance Hematologic/Lymphatic Hematologic/Lymphatic: Denies anemia Vital Signs Vital Signs Vital Signs: 10/16/23 11:37 10/16/23 13:35 10/16/23 15:00 Temperature 96.2 F L Temperature Source Temporal Pulse Rate 86 Respiratory Rate 15 18 Blood Pressure 101/59 L 93/65 106/42 L Blood Pressure Mean 73 74 63 Pulse Ox 100 Oxygen Delivery Method Room Air Room Air Physical Exam Const alert, oriented x3, no apparent distress and average body habitus General Appearance: cooperative HEENT normocephalic, head/scalp atraumatic, hearing grossly normal bilaterally and oropharynx normal HEENT Narrative: dry oral mucosal membranes Eyes PERRL, EOMs intact bilaterally and conjunctivae normal Neck no lymphadenopathy and supple Resp normal respiratory effort, no retractions, no use of accessory muscles and clear to auscultation bilaterally Cardio regular rate, regular rhythm, S1 normal heart sound, S2 normal heart sound and no murmurs GI GI Narrative: abdomen soft, mild suprapubic tenderness, no guarding or rebound tenderness Extremity normal to inspection, full ROM and no clubbing, cyanosis or edema Skin Skin Narrative: well healed laparotomy scar Neuro oriented x3, CN's II-XII intact bilaterally, moves all extremities and no focal motor deficits Sensorium / Orientation: awake and alert Motor Exam: strength 5/5 throughout Psych affect normal Results Lab / Micro Data 10/16/23 13:15 10/16/23 13:15 Labs: Laboratory Results - last 24 hr 10/16/23 13:15: WBC 9.3, RBC 4.64, Hgb 11.1 L, Hct 35.7 L, MCV 76.9 L, MCH 23.9 L, MCHC 31.1 L, RDW Std Deviation 37.5, RDW Coeff of Anand 14.1, Plt Count 583 H, MPV 8.3, Immature Gran % (Auto) 2.700 H, Neut % (Auto) 62.2, Lymph % (Auto) 21.7, [place] % (Auto) 12.6 H, Eos % (Auto) 0.4, Baso % (Auto) 0.4, Absolute Neuts (auto) 5.8, Absolute Lymphs (auto) 2.02, Nucleated RBC % 0, Sodium 137, Potassium 4.1, Chloride 105, Carbon Dioxide 23.0, Anion Gap 9, BUN 13, Creatinine 0.71, Est GFR (MDRD) Af Amer 103, Est GFR (MDRD) Non-Af 85, BUN/Creatinine Ratio 18.4, Glucose 122 H, Calcium 8.4 L, Total Bilirubin 0.40, A ST 12 L, ALT 11 L, Alkaline Phosphatase 111, Total Protein 5.9 L, Albumin 1.6 L, Globulin 4.3 H, Albumin/Globulin Ratio 0.4 L, Lipase < 10 L 10/16/23 15:00: Urine Color Ирина, Urine Clarity Cloudy, Urine pH 6.0, Ur Specific [place] 1.020, Urine Protein 30 H, Urine Glucose (UA) Normal, Urine Ketones 5 H, Urine Occult Blood 10 H, Urine Nitrite Negative, Urine Bilirubin 3 H, Urine Urobilinogen 1 H, Ur Leukocyte Esterase 25 H, Urine RBC 0-5 SEEN, Urine WBC 0-5 SEEN, Ur Squamous Epith Cells 0-5 SEEN, Ur Transition Epith Cell 5-10 SEEN, Ur Renal Epithelial Cell 5-10 SEEN, Urine Bacteria 1+, Hyaline Casts 5-10 SEEN, Urine Mucus 4+ Imaging Radiology Impression Abdomen/Pelvis CT 10/16/23 14:07 IMPRESSION: Moderate colitis of the mid transverse to distal descending colon, mildly decreased from prior. Colonic diverticulosis without acute diverticulitis. Proximal colectomy. Hepatic steatosis. Small nonobstructing left renal calculus. Electronically Signed: Maggie Epperson MD at 15:12 EDT , Assessment & Plan Assessment/Plan (1) Colitis: PLAN: Plan #Acute colitis * Probably infectious colitis. However she did see gastroenterology back in May 2023 and there was concern for possible inflammatory bowel disease due to elevated calprotectin. * She went to her oncologist with abdominal pain. CT of the abdomen and pelvis done showed acute colitis of the transverse and descending colon. * WBC is not elevated. * admit to med surg. * hydrate with IVF NS @ 125cc/hr * start on IV ciprofloxacin and metronidazole. * consult gastroenterology as patient says she was told she would need a colonoscopy about 6 months after the colon cancer surgery. * on IV morphine prn for pain * Of note she did have a previous CT of the abdomen and pelvis with IV contrast done on 10/10/2023 which showed abnormal thickening of the distal transverse colon along with the entire descending colon with pericolonic inflammatory stranding but no perforation or abscess consistent with diffuse colitis, likely infectious or inflammatory. Repeat CAT scan done noted as above * discussed with Dr Crystal, and per discussion, to order Golytely prep 4L x 1 for colonoscopy tomorrow. * #History of ascending colon cancer * s/p laparotomy with right hemicolectomy and excision of adenocarcinoma with the ascending colon with abscess formation in the pericolonic adipose tissue. * Was diagnosed with colon cancer stage IIa. She elected observation. Her oncologist. * Follow-up with oncology on outpatient basis. * #Type 2 diabetes mellitus: Hold glimepiride and metformin. Insulin sliding scale. Accu-Cheks every 6 hourly. #Hypothyroidism: On Synthroid #Hypertension: On losartan DVT prophylaxis: SCDs CODE STATUS: Full code * Patient counseled extensively about different types of CODE STATUS including full code, DNR CCA and DNR CCA. Patient elects to be full code. * Total [id number] time 17 minutes. Charges/Coding Visit Charges Inpatient E&M: 93405 Init Hosp L3 Procedures Hospitalists Procedures: 83077 Advncd Care Plan 30 Min
[2023-10-16] MEDS: metroNIDAZOLE 500 MG/100 ML BAG 100 MG IV (17:15)
[2023-10-16] MEDS: fentaNYL 100 MCG/2 ML Ampul 25 MCG IV (18:07)
[2023-10-16] MEDS: 0.9% Normal Saline (1000mL) 1,000 ML 125 ML IV (20:36)
[2023-10-16] MEDS: Electrolyte Solution/Peg's 4000 ML PO (21:00)
[2023-10-16] MEDS: Pantoprazole Sodium 40 MG in 0.9% Normal Saline (100mL MB+) 100 ML 330 MG IV (21:11)
[2023-10-17] VITALS (18 sets, daily range): BP systolic 82–119; BP diastolic 43–61; PULSE 74–97; RESP 16–18; TEMP 36.3–36.7; O2SAT 94–100; BMI 29.5
[2023-10-17] MEDS: metroNIDAZOLE 500 MG/100 ML BAG 100 MG IV ×4 (00:07→22:02)
--- NOTE | 2023-10-17 05:55 | EKG12_ITS ---
Test Reason : AM EKG Blood Pressure : / mmHG Vent. Rate : 090 BPM Atrial Rate : 090 BPM P-R Int : 146 ms QRS Dur : 116 ms QT Int : 420 ms P-R-T Axes : 050 002 032 degrees QTc Int : 513 ms Normal sinus rhythm Right bundle branch block Abnormal ECG No previous ECGs available Confirmed by ANEESH KEYES, MAURILIO ([id number]), news video editor AMADO HOFFMANN ([id number]) on 10/17/2023 1:13:49 PM Referred By: FRANCESCA Confirmed By:MAURILIO MELENDREZ MD
[2023-10-17 05:58] LABS: Absolute Lymphocyte Count 1.14 X10^3/uL (0.83-4.51); Absolute Neutrophil Count 3.7 X10^3/uL (2.0-7.7); Basophil# 0.05 X10^3/uL; Basophil% 0.8 % (0-1); Eosinophil# 0.04 X10^3/uL; Eosinophils% 0.7 % (0-5); Hematocrit 27.3 % (37-47); Hemoglobin 8.5 g/dL (12.0-15.0); Lymphocyte # 1.14 X10^3/ul (0.83-4.51); Lymphocyte % 18.6 % (19-41); Mean Corp Hgb Conc 31.1 g/dL (32-36); Mean Corpuscular Hgb 23.9 pg (27.0-32.0); Mean Corpuscular Volume 76.9 fL (81-99); Mean Platelet Vol. 8.5 fl (6.2-12.0); Monocyte# 0.91 X10^3/uL; Monocyte% 14.9 % (0-10); NRBC Flagged by Analyzer 0 % (0-5); Neutrophil # 3.72 X10^3/uL (2.7-7.7); Neutrophil % 60.8 % (47-70); POSITIVE MORPHOLOGY YES; Platelet Count 426 K/mm3 (150-450); RBC Distribution Width CV 13.9 % (11.6-14.6); RBC Distribution Width SD 37.2 fl (35.1-43.9); Red Blood Count 3.55 M/mm3 (4.2-5.4); White Blood Count 6.1 K/mm3 (4.4-11.0)
[2023-10-17] MEDS: 0.9% Normal Saline (1000mL) 1,000 ML 125 ML IV (06:19)
[2023-10-17 06:28] LABS: Differential Indicated SCAN CRITERIA MET
[2023-10-17 07:12] LABS: ALB/GLOB Ratio 0.4 RATIO (0.9-2.4); AST(SGOT) 6 U/L (15-37); Alanine Aminotransfer ALT/SGPT 9 U/L (13-56); Albumin, Serum 1.3 g/dL (3.2-5.0); Alkaline Phosphatase 91 U/L (45-117); Anion Gap 8 (5-15); BUN 11 mg/dL (7-18); BUN/Creat Ratio 20.1 RATIO (10-20); Calcium,Total 6.9 mg/dL (8.5-10.1); Chloride 109 mmol/L (98-107); Creatinine, Serum 0.55 mg/dL (0.55-1.02); EST Glomerular Filtration Rate 115 mL/min (>60); Est Glom Filt Rate - Afr Amer 139 mL/min (>60); Estimated Creatinine Clearance 58.25 ml/min; Globulin 3.3 g/dL (2.2-4.2); Glucose 151 mg/dL (74-106); Potassium 3.1 mmol/L (3.5-5.1); Protein, Total 4.6 g/dL (6.4-8.2); Sodium Level 138 mmol/L (136-145); Thyroid Stim Hormone (TSH) 0.224 uIU/mL (0.358-3.740)
[2023-10-17 07:40] LABS: Hemoglobin A1c 6.4 % (3.8-5.6)
[2023-10-17] MEDS: Ciprofloxacin 400 MG/200 ML BAG 200 MG IV ×2 (08:44→20:49)
--- NOTE | 2023-10-17 09:07 | PN.HOSP_ITS ---
Reason for Visit Reason for Visit: Diagnoses Noninfective gastroenteritis and colitis, unspecified (10/16/23) Objective Data Objective Data Vital Signs: Vital Signs Temp Pulse Resp BP Pulse Ox O2 Del Method 97.7 F L 92 18 119/54 L 98 Room Air 10/17/23 08:55 10/17/23 08:55 10/17/23 08:55 10/17/23 08:55 10/17/23 08:55 10/17/23 08:55 Oxygen Delivery Method Room Air Weight: 166 lb 10.711 oz Body Mass Index (BMI) 29.5 Intake & Output: Intake and Output for Last 24 Hours 10/15/23 10/16/23 10/17/23 23:59 23:59 23:59 Intake Total 4610 / 4610 1200 / 1200 Balance 4610 / 4610 1200 / 1200 Lab / Micro Data 10/17/23 05:11 10/17/23 05:11 Labs: Laboratory Results - last 24 hr 10/16/23 13:15: WBC 9.3, RBC 4.64, Hgb 11.1 L, Hct 35.7 L, MCV 76.9 L, MCH 23.9 L, MCHC 31.1 L, RDW Std Deviation 37.5, RDW Coeff of Anand 14.1, Plt Count 583 H, MPV 8.3, Immature Gran % (Auto) 2.700 H, Neut % (Auto) 62.2, Lymph % (Auto) 21.7, [place] % (Auto) 12.6 H, Eos % (Auto) 0.4, Baso % (Auto) 0.4, Absolute Neuts (auto) 5.8, Absolute Lymphs (auto) 2.02, Nucleated RBC % 0, Sodium 137, Potassium 4.1, Chloride 105, Carbon Dioxide 23.0, Anion Gap 9, BUN 13, Creatinine 0.71, Est GFR (MDRD) Af Amer 103, Est GFR (MDRD) Non-Af 85, BUN/Creatinine Ratio 18.4, Glucose 122 H, Calcium 8.4 L, Total Bilirubin 0.40, A ST 12 L, ALT 11 L, Alkaline Phosphatase 111, Total Protein 5.9 L, Albumin 1.6 L, Globulin 4.3 H, Albumin/Globulin Ratio 0.4 L, Lipase < 10 L 10/16/23 15:00: Urine Color Ирина, Urine Clarity Cloudy, Urine pH 6.0, Ur Specific [place] 1.020, Urine Protein 30 H, Urine Glucose (UA) Normal, Urine Ketones 5 H, Urine Occult Blood 10 H, Urine Nitrite Negative, Urine Bilirubin 3 H, Urine Urobilinogen 1 H, Ur Leukocyte Esterase 25 H, Urine RBC 0-5 SEEN, Urine WBC 0-5 SEEN, Ur Squamous Epith Cells 0-5 SEEN, Ur Transition Epith Cell 5-10 SEEN, Ur Renal Epithelial Cell 5-10 SEEN, Urine Bacteria 1+, Hyaline Casts 5-10 SEEN, Urine Mucus 4+ 10/17/23 05:11: WBC 6.1, RBC 3.55 L, Hgb 8.5 L, Hct 27.3 L, MCV 76.9 L, MCH 23.9 L, MCHC 31.1 L, RDW Std Deviation 37.2, RDW Coeff of Anand 13.9, Plt Count 426, MPV 8.5, Immature Gran % (Auto) 4.200 H, Neut % (Auto) 60.8, Lymph % (Auto) 18.[address] L, [place] % (Auto) 14.9 H, Eos % (Auto) 0.7, Baso % (Auto) 0.8, Absolute Neuts (auto) 3.7, Absolute Lymphs (auto) 1.14, Nucleated RBC % 0, Sodium 138, P otassium 3.1 L, Chloride 109 H, Carbon Dioxide 21.0, Anion Gap 8, BUN 11, Creatinine 0.55, Estim Creat Clear Calc 58.25, Est GFR (MDRD) Af Amer 139, Est GFR (MDRD) Non-Af 115, BUN/Creatinine Ratio 20.1 H, Glucose 151 H, Hemoglobin A1c 6.4 H, Calcium 6.9 L, Total Bilirubin 0.20, AST 6 L, ALT 9 L, Alkaline Phosphatase 91, Total Protein 4.6 L, Albumin 1.3 L, Globulin 3.3, A lbumin/Globulin Ratio 0.4 L, TSH 0.224 L Micro: Microbiology 10/16/23 21:09 Stool Enteric Bacteriology - Final 10/16/23 21:09 Stool Clostridioides difficile (PCR) - Final Radiography Diagnostic Testing: Radiology Impression Abdomen/Pelvis CT 10/16/23 14:07 IMPRESSION: Moderate colitis of the mid transverse to distal descending colon, mildly decreased from prior. Colonic diverticulosis without acute diverticulitis. Proximal colectomy. Hepatic steatosis. Small nonobstructing left renal calculus. Electronically Signed: Maggie Epperson MD at 15:12 EDT , Physical Exam Narrative Seen and examined. Patient complain of abdominal pain mainly lower quadrant to started from left to right started about 2 3 weeks ago. Stool for occult blood positive. Saw also blood. Gradually getting worse but the worst was yesterday She states her abdominal pain is better than yesterday Physical exam General: Alert, Oriented x3, Cooperative HEENT: Atraumatic, PERRLA, EOMI, Normocephalic Oral: No Gingival or Mucosal Lesions/ Ulcerations Neck: Supple, No JVD, Negative Carotid Bruits Chest wall/Lungs: Air entry equal in bilateral lung bases. No crepitation/rhonchi Cardiovascular: Regular rate, Regular Rhythm, Normal S1, Normal S2, No M/G/R Abdomen: Bowel Sounds sluggish, Soft, mild tenderness over right and left quadrant. No rebound tenderness. : No dysuria. No renal angle tenderness. No suprapubic tenderness. Extremities: No edema, Capillary Refill Less than 3 Seconds Skin: No rashes, No breakdown Musculoskeletal: No Tenderness to Palpation of Joints or Extremities Neurological: Cranial nerves II-XII grossly intact, DTR 2+/4. No acute focal neurological deficit. Psych/Mental Status: flat affect Assessment & Plan Assessment/Plan (1) Colitis: PLAN: Plan This 78-year-old female came to ED for abdominal pain started left to right about 2 to 3 weeks ago but got worse the day before admission. blood in the stool, stool for occult blood positive on 09/25. Her stool consistency is semisolid to liquid with mucus. #Acute colitis: Patient admitted to [facility] floor. * Probably infectious colitis. However she did see gastroenterology back in May 2023 and there was concern for possible inflammatory bowel disease due to elevated calprotectin. * She went to her oncologist with abdominal pain. CT of the abdomen and pelvis done showed acute colitis of the transverse and descending colon. * WBC is not elevated. * hydrate with IVF NS @ 125cc/hr * start on IV ciprofloxacin and metronidazole. * GI consulted. Plan for colonoscopy. Patient also due for EGD therefore EGD and colonoscopy requested. * consult gastroenterology as patient says she was told she would need a colonoscopy about 6 months after the colon cancer surgery. * on IV morphine prn for pain * Of note she did have a previous CT of the abdomen and pelvis with IV contrast done on 10/10/2023 which showed abnormal thickening of the distal transverse colon along with the entire descending colon with pericolonic inflammatory stranding but no perforation or abscess consistent with diffuse colitis, likely infectious or inflammatory. Repeat CAT scan done noted as above * discussed with Dr Crystal, and per discussion, to order Golytely prep 4L x 1 for colonoscopy tomorrow. * Mild hypokalemia: Potassium replacement ordered. Serum magnesium and phosphorus ordered. * #History of ascending colon cancer * s/p laparotomy with right hemicolectomy and excision of adenocarcinoma with the ascending colon with abscess formation in the pericolonic adipose tissue. * Was diagnosed with colon cancer stage IIa. She elected observation. Her oncologist. * Follow-up with oncology on outpatient basis. #Type 2 diabetes mellitus: Hold glimepiride and metformin. Accu-Chek before meals and at bedtime with Humalog sliding scale coverage and hypoglycemia protocol. Glucose 122 to 151 #Hypothyroidism: On Synthroid TSH low 0.2-4. Free T4 ordered. #Hypertension: On losartan DVT prophylaxis: SCDs CODE STATUS: Full code * Patient counseled extensively about different types of CODE STATUS including full code, DNR CCA and DNR CCA. Patient elects to be full code. * Total [id number] time 17 minutes. Charges/Coding Visit Charges Inpatient E&M: 05619 Subs Hosp L2
--- NOTE | 2023-10-17 09:55 | CASEMGMT ---
ROBERT MISTRY Face to Face with patient for initial transition planning/care coordination assessment. RN CM introduced self and role at [facility]. Patient lying in bed, alert and oriented. Patient willing to participate in assessment and is able to answer all questions appropriately. Care providers, pharmacy, and demographics verified. Strata: 2 PCP: [facility] Specialists: Bonilla, GI; Nellie, surgeon; Samantha, oncologist; Preferred Pharmacy[facility] Insurance: [employer] [facility] Prescription Benefit: yes Living Will/HPOA: yes, niece Monika Kimble LNOK: niece Living Arrangements: Patient lives alone in a single story condo with 1 step to enter. Patient is independent at home. Transportation: self, niece DME/HHC: Patient has shower chair, raised toilet, grab bars at home. No previous HHC or SNF Patient wishes to discharge home, denies need for home health at this time, will monitor progress with therapy. Patient states she has no further needs or concerns at this time. CM to follow for discharge planning needs that may arise. Disposition Plan: Patient to discharge home with family support and follow-up plans in place. Monitor for HHC and walker at discharge. Samantha FUNES, RN, CM
[2023-10-17] MEDS: Pantoprazole Sodium 40 MG in 0.9% Normal Saline (100mL MB+) 100 ML 330 MG IV (10:14)
[2023-10-17] MEDS: Potassium Chloride 10mEq/100mL 10 MEQ/100 ML IV.SOLN. 100 MEQ IV BOLUS (10:46)
--- NOTE | 2023-10-17 11:43 | PRE.ANES_ITS ---
ASA Classification* ASA Classification ASA Classification: 2 and E Assessment & Plan Anesthesia* Anesthesia Assessment Anesthesia Assessment: Discussed sedation and/or anesthesia options, risks, benefits, and alternatives with patient/parents/legal guardian/POA. Questions invited. The patient/parents/legal guardian/POA seems to understand and agrees to proceed with anesthesia plan. Reviewed the physical assessment, medical history, allergy history and patient home medications list prior to surgery/procedure/anesthetic and documented any changes. Performed airway and anesthesia risk assessments. Anesthesia Type Anesthesia Type: MAC (see written pre anesthesia record for full assessment) Anesthesia Focused Assessment* Temperature: 97.7 F Pulse Rate: 92 Blood Pressure: 119/54 Respiratory Rate: 18 Pulse Ox: 98 Airway Assessment Mouth opens: >3 cm Mallampati Score: II Focused Labs Anesthesia Preop lab: CBC WBC 6.1 K/mm3 (4.4-11.0) 10/17/23 05:11 RBC 3.55 M/mm3 (4.2-5.4) L 10/17/23 05:11 Hgb 8.5 g/dL (12.0-15.0) L 10/17/23 05:11 Hct 27.3 % (37-47) L 10/17/23 05:11 Plt Count 426 K/mm3 (150-450) 10/17/23 05:11 CHEMISTRY Potassium 3.1 mmol/L (3.5-5.1) L 10/17/23 05:11 Sodium 138 mmol/L (136-145) 10/17/23 05:11 Magnesium 2.0 mg/dL (1.6-2.6) 03/10/23 07:46 Phosphorus 3.3 mg/dL (2.5-4.9) 03/10/23 07:46 BUN 11 mg/dL (7-18) 10/17/23 05:11 Creatinine 0.55 mg/dL (0.55-1.02) 10/17/23 05:11 Glucose 151 mg/dL (74-106) H 10/17/23 05:11 POC Glucose 155 mg/dL (74-106) H 03/11/23 11:55 TSH 0.224 uIU/mL (0.358-3.740) L 10/17/23 05:11 COAG Pre-Assessment Diagnosis/Proposed Procedure Planned Operative Procedure(s): egd/ colon Anesthesia History 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 When Was Last Pacemaker Check QUESTION #4 FULL TEXT: You/Your Family Experience fever (hyperthermia) with Anesthesia Last Oral Intake Last Oral intake: Last Oral Intake NPO since 00:00 10/17/23 05:20 Meds taken in AM with sips of No 10/17/23 05:20 water? Meds patient instructed to take am of surgery PONV PONV - school health aide: PONV - school health aide Female HX of Motion Sickness HX of N/V After Surgery Non-Smoker Duration of Surgery greater than 60 minutes Number of Risk Factors PONV Score Height & Weight Height & Weight: Anesthesia: Height & Weight Height 5 ft 3 in 10/17/23 05:20 Weight: 75.6 kg 10/17/23 05:20 Body Mass Index (BMI) 29.5 10/17/23 05:20 Respiratory Assessment Respiratory Assessment - school health aide: Respiratory Tract Infection Hx - school health aide Hx Respiratory Tract Infection No 10/17/23 05:17 STOP Sleep Apnea STOP Sleep Apnea - school health aide: STOP Sleep Apnea - school health aide Hx Hypertension Yes: Well controlled 10/16/23 20:05 Hx Sleep Apnea No 10/16/23 20:05 CPAP BIPAP Do you snore loudly (louder No 10/16/23 20:05 than talking or can be heard Do you often feel tired/ Yes 10/16/23 20:05 fatigued/ sleepy during daytime? Has anyone observed you stop No 10/16/23 20:05 breathing during sleep? STOP Results Positive 10/16/23 20:05 QUESTION #5 FULL TEXT : Do you snore loudly (louder than talking or can be heard through closed doors)? 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 Specify any problems Hx of Preganancy in last 3 Months Nurse Filling Out Transfusion & Questions: Date: Time: Patient unable to answer at Yes 10/16/23 20:05 this time (ie. confused, unrespo /Reproduction History /Reproductive History - school health aide: /Reproductive Hx- school health aide Hx Now No 10/17/23 05:17 Gestational Age (in weeks): EDC: Hx Hx Para Hx Section SAB No 10/17/23 05:17 Active Medications Active Medications: Current Medications Generic Name Dose Route Start Last Admin Trade Name Freq PRN Reason Stop Dose Admin Famotidine 20 mg 10/17/23 10:00 10/17/23 08:54 Famotidine 20 Mg Tablet PO Not Given DAILY LINH Sodium Chloride 250 mls @ 15 mls/hr 10/16/23 19:56 IV .[id number] PRN Additional IVPB Infusion Sodium Chloride 250 mls @ 15 mls/hr 10/16/23 19:56 IV .[id number] PRN Saline Flush Sodium Chloride 1,000 mls @ 125 mls/hr 10/16/23 20:21 10/17/23 06:19 IV 10/17/23 12:20 125 mls/hr .Q8H LINH Administration Ciprofloxacin 400 mg in 200 mls @ 200 mls/hr 10/16/23 22:00 10/17/23 10:17 Cipro IV Infused Q12 LINH Infusion Metronidazole 500 mg in 100 mls @ 100 mls/hr 10/16/23 22:00 10/17/23 06:50 Flagyl IV Infused Q8 LINH Infusion Pantoprazole Sodium 40 mg/ 110 mls @ 330 mls/hr 10/16/23 20:21 10/17/23 10:14 Sodium Chloride IV 330 mls/hr Q24 LINH Administration Potassium Chloride 10 meq in 100 mls @ 100 mls/hr 10/17/23 10:15 10/17/23 10:46 IV BOLUS 10/17/23 14:14 100 mls/hr Q1H LINH Administration Levothyroxine Sodium 150 mcg 10/16/23 22:00 10/16/23 21:01 Levothyroxine 150 Mcg Tablet PO Not Given QHS LINH Morphine Sulfate 2 - 4 mg 10/16/23 20:21 Morphine 2 Mg/Ml Syringe IV Q3H PRN PRN Pain Score 6-10 Nitroglycerin 0.4 mg 10/16/23 20:21 Nitroglycerin (Inpatient Use) 0.4 Mg Tab.Subl SL Q5M PRN CARDIAC/CHEST PAIN Ondansetron HCl 4 mg 10/16/23 20:21 Ondansetron 4 Mg/2 Ml Vial IV Q8H PRN PRN NAUSEA/VOMITING Oxycodone HCl 5 mg 10/16/23 20:21 Oxycodone 5 Mg Tablet PO Q4H PRN PRN Pain Score 4-10 Sodium Chloride 10 - 40 ml 10/16/23 19:56 0.9% Saline Lock 10 Ml Syringe IV UD PRN SALINE FLUSH PFSH Medical History GI bleed Vision loss of right eye Vision loss of left eye Anemia Hypothyroidism Chronic pain Rheumatoid arthritis GERD (gastroesophageal reflux disease) Non-smoker Irregular heart beat Hypertension Migraines Seizures Diabetes mellitus Home Medications ?Medication ?Instructions ?Recorded ?Last Taken ?Type aspirin 81 mg capsule 81 mg PO DAILY HEART 03/05/23 10/16/23 History glimepiride 2 mg tablet 2 mg PO DAILY diabetes 03/05/23 10/16/23 History levothyroxine 150 mcg tablet 150 mcg PO QHS thyroid 03/05/23 10/15/23 History losartan 50 mg tablet 50 mg PO DAILY blood pressure 03/05/23 10/16/23 History metformin 500 mg tablet 1,000 mg PO BID diabetes 03/05/23 10/16/23 History famotidine 20 mg tablet (Acid 20 mg PO DAILY 10/16/23 10/16/23 History Controller) fexofenadine 180 mg tablet 180 mg PO QHS 10/16/23 10/15/23 History Allergy/AdvReac Type Severity Reaction Status Date / Time Corticosteroids Allergy Severe Shortness Verified 10/16/23 11:37 (Glucocorticoids) (steroids) of breath acetaminophen (From Tylenol) Allergy Intermediate Shortness Verified 10/16/23 11:37 of breath aspirin Allergy Intermediate Shortness Verified 10/16/23 11:37 of breath diphenhydramine (From Allergy PT UNSURE Verified 10/16/23 11:37 Benadryl) OF REACTION Penicillins Allergy PT UNSURE Verified 10/16/23 11:37 OF REACTION Beef Containing Products AdvReac Other Verified 10/16/23 11:37 [place] And Derivatives AdvReac Other Verified 10/16/23 11:37 Food Allergies: Uncoded AdvReac Vomiting Verified 10/16/23 11:37 Surgical History History of appendectomy Status post right hemicolectomy Hx of cholecystectomy Social History Smoking Status: Never smoker alcohol intake: never Review of Systems (Anesthesia) ROS Narrative System reviewed and no additional complaints, except as documented.
[2023-10-17 11:44] LABS: Magnesium 1.6 mg/dL (1.6-2.6); Phosphorus 3.1 mg/dL (2.5-4.9); T4 Free Direct 0.97 ng/dL (0.76-1.46)
[2023-10-17] MEDS: Potassium Chloride 10mEq/100mL 10 MEQ/100 ML IV.SOLN. IV BOLUS ×3 (11:57→14:03)
[2023-10-17] MEDS: 0.9% Normal Saline (1000mL) 1,000 ML 15 ML IV ×2 (12:20→14:11)
--- NOTE | 2023-10-17 12:26 | CON.PCM.GI_ITS ---
HPI Consult Data Date of Consult: 10/17/23 HPI Narrative Reason for Consultation: Lower GI bleed HPI Narrative: AMADO QUEEN, is a 78 F with a past medical history as outlined including adenocarcinoma in the ascending colon for which she had laparotomy with right hemicolectomy on 03/05/2023. She had presented with abdominal pain at that time and imaging done showed retrocecal abscess concerning for possible neoplastic perforation or diverticulitis with no evidence of metastatic disease. She was diagnosed with colon cancer stage IIa with about 20 lymph nodes being negative by biopsy. Patient had elected for subsequent observation. She came in this time with a complaint of abdominal pain which had been going on for the past several days. Pain was mainly in her lower abdomen, with no aggravating or relieving factors. She denied any fever or chills, and denied any nausea or vomiting. She admitted to dark stools but says she is on iron supplements and so is not sure whethere the dark stools are due to iron supplementation or blood in her stool.She went to see her her oncologist today and was told that she should come to the ED for evaluation. Review of systems was otherwise negative. Vitals in the ED were Temp of 96.2F, OR of 91, RR of 19 and BP of 92/56 at time of review. She was saturating at 97% on room air. CBC showed WBC of 9.3, hemoglobin of 11.1 and platelets of 583. Chemistry was essentially unremarkable. Urinalysis showed 1+ bacteria but 0-5 WBC and [address] of the abdomen and pelvis showed moderate colitis of the mid transverse to distal descending colon which is mildly decreased from prior and colonic diverticulosis without active diverticulitis as well as proximal colectomy and hepatic steatosis with small nonobstructing left renal calculus. She is being admitted to be managed for acute colitis and was started on IV ciprofloxacin and metronidazole. [facility] Medical History GI bleed Vision loss of right eye Vision loss of left eye Anemia Hypothyroidism Chronic pain Rheumatoid arthritis GERD (gastroesophageal reflux disease) Non-smoker Irregular heart beat Hypertension Migraines Seizures Diabetes mellitus Home Medications ?Medication ?Instructions ?Recorded ?Last Taken ?Type aspirin 81 mg capsule 81 mg PO DAILY HEART 03/05/23 10/16/23 History glimepiride 2 mg tablet 2 mg PO DAILY diabetes 03/05/23 10/16/23 History levothyroxine 150 mcg tablet 150 mcg PO QHS thyroid 03/05/23 10/15/23 History losartan 50 mg tablet 50 mg PO DAILY blood pressure 03/05/23 10/16/23 History metformin 500 mg tablet 1,000 mg PO BID diabetes 03/05/23 10/16/23 History famotidine 20 mg tablet (Acid 20 mg PO DAILY 10/16/23 10/16/23 History Controller) fexofenadine 180 mg tablet 180 mg PO QHS 10/16/23 10/15/23 History Allergy/AdvReac Type Severity Reaction Status Date / Time Corticosteroids Allergy Severe Shortness Verified 10/16/23 11:37 (Glucocorticoids) (steroids) of breath acetaminophen (From Tylenol) Allergy Intermediate Shortness Verified 10/16/23 11:37 of breath aspirin Allergy Intermediate Shortness Verified 10/16/23 11:37 of breath diphenhydramine (From Allergy PT UNSURE Verified 10/16/23 11:37 Benadryl) OF REACTION Penicillins Allergy PT UNSURE Verified 10/16/23 11:37 OF REACTION Beef Containing Products AdvReac Other Verified 10/16/23 11:37 [place] And Derivatives AdvReac Other Verified 10/16/23 11:37 Food Allergies: Uncoded AdvReac Vomiting Verified 10/16/23 11:37 Surgical History History of appendectomy Status post right hemicolectomy Hx of cholecystectomy Social History Smoking Status: Never smoker alcohol intake: never ROS Constitutional Constitutional: Reports fatigue; Denies anorexia, chills, fever(s), malaise or weakness Eyes Eyes: Denies change in vision ENT HEENT: Denies dysphagia, headache(s), nasal congestion, nasal discharge or sore throat Cardiovascular Cardiovascular: Denies chest pain, dyspnea on exertion, edema, lightheadedness, orthopnea, palpitations, rapid heart rate or syncope Respiratory/Chest Respiratory/Chest: Denies cough, dyspnea, shortness of breath at rest or shortness of breath with exertion Gastrointestinal Gastrointestinal: Reports abdominal pain and melena; Denies constipation, diarrhea, dyspepsia, hematemesis, hematochezia, loose stools, nausea or vomiting Genitourinary Genitourinary: Denies burning urination or dysuria Musculoskeletal Musculoskeletal: Denies arthralgias Neurologic Neurologic: Denies confusion, disequilibrium, dizziness, focal weakness, headache(s), numbness, paresthesias, seizure-like activity or seizures Psychiatric Psychiatric: Denies anxiety Endocrine Endocrinology: Denies change in body appearance Hematologic/Lymphatic Hematologic/Lymphatic: Denies anemia Physical Exam Const alert, oriented x3, no apparent distress and average body habitus General Appearance: cooperative HEENT normocephalic, head/scalp atraumatic, hearing grossly normal bilaterally and oropharynx normal HEENT Narrative: dry oral mucosal membranes Eyes PERRL, EOMs intact bilaterally and conjunctivae normal Neck no lymphadenopathy and supple Resp normal respiratory effort, no retractions, no use of accessory muscles and clear to auscultation bilaterally Cardio regular rate, regular rhythm, S1 normal heart sound, S2 normal heart sound and no murmurs GI GI Narrative: abdomen soft, mild suprapubic tenderness, no guarding or rebound tenderness Extremity normal to inspection, full ROM and no clubbing, cyanosis or edema Skin Skin Narrative: well healed laparotomy scar Neuro oriented x3, CN's II-XII intact bilaterally, moves all extremities and no focal motor deficits Sensorium / Orientation: awake and alert Motor Exam: strength 5/5 throughout Psych affect normal Lab / Micro Data 10/17/23 05:11 10/17/23 05:11 Labs: Laboratory Results - last 24 hr 10/16/23 13:15: WBC 9.3, RBC 4.64, Hgb 11.1 L, Hct 35.7 L, MCV 76.9 L, MCH 23.9 L, MCHC 31.1 L, RDW Std Deviation 37.5, RDW Coeff of Anand 14.1, Plt Count 583 H, MPV 8.3, Immature Gran % (Auto) 2.700 H, Neut % (Auto) 62.2, Lymph % (Auto) 21.7, [place] % (Auto) 12.6 H, Eos % (Auto) 0.4, Baso % (Auto) 0.4, Absolute Neuts (auto) 5.8, Absolute Lymphs (auto) 2.02, Nucleated RBC % 0, Sodium 137, Potassium 4.1, Chloride 105, Carbon Dioxide 23.0, Anion Gap 9, BUN 13, Creatinine 0.71, Est GFR (MDRD) Af Amer 103, Est GFR (MDRD) Non-Af 85, BUN/Creatinine Ratio 18.4, Glucose 122 H, Calcium 8.4 L, Total Bilirubin 0.40, A ST 12 L, ALT 11 L, Alkaline Phosphatase 111, Total Protein 5.9 L, Albumin 1.6 L, Globulin 4.3 H, Albumin/Globulin Ratio 0.4 L, Lipase < 10 L 10/16/23 15:00: Urine Color Ирина, Urine Clarity Cloudy, Urine pH 6.0, Ur Specific [place] 1.020, Urine Protein 30 H, Urine Glucose (UA) Normal, Urine Ketones 5 H, Urine Occult Blood 10 H, Urine Nitrite Negative, Urine Bilirubin 3 H, Urine Urobilinogen 1 H, Ur Leukocyte Esterase 25 H, Urine RBC 0-5 SEEN, Urine WBC 0-5 SEEN, Ur Squamous Epith Cells 0-5 SEEN, Ur Transition Epith Cell 5-10 SEEN, Ur Renal Epithelial Cell 5-10 SEEN, Urine Bacteria 1+, Hyaline Casts 5-10 SEEN, Urine Mucus 4+ 10/17/23 05:11: WBC 6.1, RBC 3.55 L, Hgb 8.5 L, Hct 27.3 L, MCV 76.9 L, MCH 23.9 L, MCHC 31.1 L, RDW Std Deviation 37.2, RDW Coeff of Anand 13.9, Plt Count 426, MPV 8.5, Immature Gran % (Auto) 4.200 H, Neut % (Auto) 60.8, Lymph % (Auto) 18.6 L, [place] % (Auto) 14.9 H, Eos % (Auto) 0.7, Baso % (Auto) 0.8, Absolute Neuts (auto) 3.7, Absolute Lymphs (auto) 1.14, Nucleated RBC % 0, Sodium 138, P otassium 3.1 L, Chloride 109 H, Carbon Dioxide 21.0, Anion Gap 8, BUN 11, Creatinine 0.55, Estim Creat Clear Calc 58.25, Est GFR (MDRD) Af Amer 139, Est GFR (MDRD) Non-Af 115, BUN/Creatinine Ratio 20.1 H, Glucose 151 H, Hemoglobin A1c 6.4 H, Calcium 6.9 L, Phosphorus 3.1, Magnesium 1.6, Total Bilirubin 0.20, A ST 6 L, ALT 9 L, Alkaline Phosphatase 91, Total Protein 4.6 L, Albumin 1.3 L, Globulin 3.3, Albumin/Globulin Ratio 0.4 L, TSH 0.224 L, Free T4 0.97 Micro: Microbiology 10/16/23 21:09 Stool Enteric Bacteriology - Final 10/16/23 21:09 Stool Clostridioides difficile (PCR) - Final Imaging Radiology Impression Abdomen/Pelvis CT 10/16/23 14:07 IMPRESSION: Moderate colitis of the mid transverse to distal descending colon, mildly decreased from prior. Colonic diverticulosis without acute diverticulitis. Proximal colectomy. Hepatic steatosis. Small nonobstructing left renal calculus. Electronically Signed: Maggie Epperson MD at 15:12 EDT Reading Location ID and State: [facility] / [place] Tel , Service support , Assessment & Plan Assessment/Plan (1) Colitis: PLAN: Plan # 78-year-old with past medical history of stage IIa colon cancer status post resection with primary anastomosis. She did not have any chemotherapy. She elected for observation. She has been struggling with iron deficiency anemia and has been on iron therapy. She presents with abdominal pain cramping and has imaging findings consistent with acute colitis. Differential diagnosis does include infectious, ischemia, inflammatory bowel disease. She will need to undergo upper and lower endoscopy to evaluate upper and lower GI tract. * She went to her oncologist with abdominal pain. CT of the abdomen and pelvis done showed acute colitis of the transverse and descending colon. * WBC is not elevated. * admit to med surg. * hydrate with IVF NS @ 125cc/hr * Continue on IV ciprofloxacin and metronidazole. Charges/Coding Visit Charges Inpatient E&M: 77600 Init Hosp L3
--- NOTE | 2023-10-17 13:00 | COL_PTH ---
PATIENT: AMADO QUEEN LOC: PCU U#:[id number] AGE/SX: 78/F ROOM: [facility] RE10/16/[address]: Dr. Jameson Snell MD : 1945 BED: 1 DIS: 10/18/2023 SPEC #: [id number] RECD: 10/17/23 13:40 STATUS: [facility] DAVID #: [id number] DEANA: 10/17/23 13:[address]: Jarrell Crystal DEPT: SURGICAL PATHOLOGY RECD BY: Onur Peña ENTERED: 10/17/23 13:42 SP TYPE: COLON OTHR DR: DO Dr. Zuri Olivier MD Dr. Prakash Chand, MD Tissues: A - COLON BIOPSY B - Transverse colon C - Transverse colon Procedures: Frozen Section (charge) Surgery Specimen Level IV HEADER OPERATION: Colonoscopy with biopsy, EGD PRE-OP DIAGNOSIS: Colitis, history of colon cancer TISSUE SUBMITTED: A- Transverse colon mass biopsy, B- Colonic mass of transverse colon , C- Lesser curvature biopsy FROZEN SECTION DIAGNOSIS A. Transverse colon mass, biopsy: Extravasated mucin. No obvious carcinoma seen. Pending permanent sections. Case has been reviewed in consultation with Dr. Zazueta who concurs with the above diagnosis. IDC:AM MICROSCOPIC DIAGNOSIS A. Transverse colon mass, biopsy: Consistent with fragments of inflammatory polyp. Negative for malignancy. B. Transverse colon mass, biopsy: Consistent with fragments of inflammatory polyp. Negative for malignancy. C. Lesser curvature, biopsy: Mild gastritis. See microscopic description and comment. 10/18/2023 COMMENT C. The results of immunohistochemistry for Helicobacter pylori will be reported separately ([id number]). Please make reference to previous specimen [id number] right colon, hemicolectomy with diagnosis of invasive adenocarcinoma. Correlation with clinical, endoscopic findings and appropriate follow-up are necessary. Case has been reviewed in consultation with Dr. Zazueta who concurs with the above diagnosis. IDC:AM MICROSCOPIC DESCRIPTION Slides are reviewed. C. The specimen shows fragments of gastric mucosa with chronic inflammatory cell infiltrates in the lamina propria consisting of lymphocytes and plasma cells, consistent with mild chronic gastritis. GROSS DESCRIPTION A. Received fresh for frozen section consultation/diagnosis labeled with the patient's name is a specimen designated Transverse colon mass. The specimen consists of three fragments of garcia soft tissue measuring in aggregate 0.6 x 0.2 x 0.1cm. The entire specimen is submitted for frozen section diagnosis in one cassette. B. Received in fixative is one container labeled with the patient's name and designated Colonic mass transverse colon. The specimen consists of multiple irregular fragments of light garcia soft tissue that in aggregate measure 1.0 x 0.5 x 0.1 cm. The specimen is totally submitted in one cassette. C. Received in fixative is one container labeled with the patient's name and designated Lesser curvature biopsy. The specimen consists of multiple irregular fragments of light garcia soft tissue that in aggregate measure 1.0 x 0.3 x 0.1 cm. The specimen is totally submitted in one cassette. SJ 10/17/2023 TC:5 CPT:[id number], 08160
--- NOTE | 2023-10-17 13:00 | IMM_PTH ---
PATIENT: AMADO QUEEN LOC: [facility] U#:[id number] AGE/SX: 78/F ROOM: [facility] RE10/16/[address]: Dr. Jameson Snell MD : 1945 BED: 1 DIS: 10/18/2023 SPEC #: [id number] RECD: 10/17/23 16:04 STATUS: [facility] REQ #: [id number] DEANA: 10/17/23 13:[address]: Jarrell Crystal DEPT: IMMUNOHISTOCHEMISTRY RECD BY: Onur Peña ENTERED: 10/17/23 16:04 SP TYPE: IMMUNO OTHR DR: DO Dr. Zuri Olivier MD Dr. Prakash Chand, MD Tissues: C - Transverse colon Procedures: H Pylori (initial) Comments: @ Ordering doctor for H.PYLORI edited from to @ by VADIM at 10/17/23 1604 @ Submitting doctor edited from to @ by VADIM at 10/17/23 1604 PHYSICIAN & [place] [phone] SPECIMEN INFORMATION: Tissue Source: C- Lesser curvature biopsy Clinical Info: Colitis, history of colon cancer Specimen Number: [id number] CPT code: 01422 METHODOLOGY: Deparaffinized sections of prefer/formalin-fixed tissue or PAP/DQ stained slides are incubated with monoclonal/polyclonal antibodies/oligonucleotide probes. Localization is made via biotin free immunoperoxidase method. Appropriate controls are performed and reacted as expected. Results on target cell population are indicated in the following table: RESULTS: ANTIBODY / CLONE RESULT Block C H Pylori (polyclonal) Negative These tests were developed and their performance characteristics determined by [facility]. They may not have been cleared or approved by the U.S. Food and Drug Administration. The FDA has determined that such clearance or approval is not necessary. The above immunohistochemical/dualISH markers are ordered and reviewed by the Pathologist. INTERPRETATION: C. Colon, lesser curvature, biopsy: Negative for Helicobacter pylori organisms. SJ:eldon 10/19/2023
--- NOTE | 2023-10-17 13:14 | OP.EGD_ITS ---
Patient Name: Nguyen Collado Procedure Date: 10/17/2023 12:30 PM Date of : 1945 Age: 78 Procedure: Upper GI endoscopy Indications: Epigastric abdominal pain, Melena Providers: Jarrell Crystal DO Medicines: Monitored Anesthesia Care Patient Profile: This is a 78 year old female. Refer to note in patient chart for documentation of history and physical. Patient has symptoms of acute abdominal cramping and acute global abdominal pain. Complications: No immediate complications. Procedure: Pre-Anesthesia Assessment: - Prior to the procedure, a History and Physical was performed, and patient medications and allergies were reviewed. The patient is competent. The risks and benefits of the procedure and the sedation options and risks were discussed with the patient. All questions were answered and informed consent was obtained. Patient identification and proposed procedure were verified by the nurse in the pre-procedure area. Mental Status Examination: alert and oriented. Airway Examination: normal oropharyngeal airway and neck mobility. Respiratory Examination: clear to auscultation. CV Examination: normal. Prophylactic Antibiotics: The patient does not require prophylactic antibiotics. Prior Anticoagulants: The patient has taken no anticoagulant or antiplatelet agents. ASA Grade Assessment: III - A patient with severe systemic disease. After reviewing the risks and benefits, the patient was deemed in satisfactory condition to undergo the procedure. The anesthesia plan was to use monitored anesthesia care (MAC). Immediately prior to administration of medications, the patient was re-assessed for adequacy to receive sedatives. The heart rate, respiratory rate, oxygen saturations, blood pressure, adequacy of pulmonary ventilation, and response to care were monitored throughout the procedure. The physical status of the patient was re-assessed after the procedure. After obtaining informed consent, the endoscope was passed under direct vision. Throughout the procedure, the patient's blood pressure, pulse, and oxygen saturations were monitored continuously. The Colonoscope was introduced through the mouth, and advanced to the duodenal bulb. The upper GI endoscopy was accomplished without difficulty. The patient tolerated the procedure well. Scope In: 12:42:33 PM Scope Out: 12:47:06 PM Total Procedure Duration Time 0 hours 4 minutes 33 seconds Findings: Grade I varices were found in the upper third of the esophagus. They were 5 mm in largest diameter. The lower third of the esophagus was normal. Segmental moderate mucosal changes characterized by friability (with contact bleeding) and granularity were found on the lesser curvature of the stomach. Biopsies were taken with a cold forceps for histology. Verification of patient identification for the specimen was done. Estimated blood loss was minimal. No gross lesions were noted in the second portion of the duodenum. Impression: - Grade I esophageal varices. - Normal lower third of esophagus. - Friable (with contact bleeding) and granular mucosa in the lesser curvature. Biopsied. - No gross lesions in the second portion of the duodenum. Recommendation: - [facility]. - Advance diet as tolerated. - Continue present medications. - Await pathology results. Procedure Code(s): --- Professional --- 75577, Esophagogastroduodenoscopy, flexible, transoral; with biopsy, single or multiple CPT copyright 2021 [employer] [place] [employer]. All rights reserved. The codes documented in this report are preliminary and upon polysomnograph tech review may be revised to meet current compliance requirements. Jarrell Crystal DO 10/17/2023 1:14:26 PM This report has been signed electronically. Number of Addenda: 0 Note Initiated On: 10/17/2023 12:30 PM
--- NOTE | 2023-10-17 13:15 | OP.CCLET_ITS ---
10/17/2023 Jeff Simeon [address] [place] [address] Re : Upper GI endoscopy procedure for Nguyen Collado Dear Dr. Simeon This procedure was performed on Tuesday, October 17, 2023. My impressions and recommendations are as follows: Impressions : - Grade I esophageal varices. - Normal lower third of esophagus. - Friable (with contact bleeding) and granular mucosa in the lesser curvature. Biopsied. - No gross lesions in the second portion of the duodenum. Recommendations : - [facility]. - Advance diet as tolerated. - Continue present medications. - Await pathology results. My findings are described in the full procedure note, which is enclosed. If I can be of further assistance, please feel free to contact me at . Sincerely, Jarrell Crystal, 10/17/2023 1:14:26 PM This report has been signed electronically.
--- NOTE | 2023-10-17 13:21 | OP.CCLET_ITS ---
10/17/2023 Jeff Simeon [address] [place] [address] Re : Colonoscopy procedure for Nguyen Collado Dear Dr. Simeon This procedure was performed on Tuesday, October 17, 2023. My impressions and recommendations are as follows: Impressions : - Preparation of the colon was poor. - Diverticulosis in the recto-sigmoid colon and in the sigmoid colon. - Rule out malignancy, partially obstructing tumor at the splenic flexure, in the transverse colon, at the hepatic flexure and in the cecum. Biopsied. - Malignant-appearing tumor in the colon. Biopsied. Biopsied. Recommendations : - [facility]. - Advance diet as tolerated. - Continue present medications. - Await pathology results. - Repeat colonoscopy for surveillance based on pathology results. My findings are described in the full procedure note, which is enclosed. If I can be of further assistance, please feel free to contact me at . Sincerely, Jarrell Crystal, 10/17/2023 1:21:03 PM This report has been signed electronically.
--- NOTE | 2023-10-17 13:21 | OP.COLON_ITS ---
Patient Name: Nguyen Collado Procedure Date: 10/17/2023 12:47 PM Date of : 1945 Age: 78 Procedure: Colonoscopy Indications: Hematochezia, Melena Providers: Jarrell Crystal DO Medicines: Monitored Anesthesia Care Patient Profile: This is a 78 year old female. Refer to note in patient chart for documentation of history and physical. Patient has symptoms of acute abdominal cramping and acute global abdominal pain. Last Colonoscopy: 1 year ago. Complications: No immediate complications. Procedure: Pre-Anesthesia Assessment: - Prior to the procedure, a History and Physical was performed, and patient medications and allergies were reviewed. The patient is competent. The risks and benefits of the procedure and the sedation options and risks were discussed with the patient. All questions were answered and informed consent was obtained. Patient identification and proposed procedure were verified by the nurse in the pre-procedure area. Mental Status Examination: alert and oriented. Airway Examination: normal oropharyngeal airway and neck mobility. Respiratory Examination: clear to auscultation. CV Examination: normal. Prophylactic Antibiotics: The patient does not require prophylactic antibiotics. Prior Anticoagulants: The patient has taken no anticoagulant or antiplatelet agents. ASA Grade Assessment: III - A patient with severe systemic disease. After reviewing the risks and benefits, the patient was deemed in satisfactory condition to undergo the procedure. The anesthesia plan was to use monitored anesthesia care (MAC). Immediately prior to administration of medications, the patient was re-assessed for adequacy to receive sedatives. The heart rate, respiratory rate, oxygen saturations, blood pressure, adequacy of pulmonary ventilation, and response to care were monitored throughout the procedure. The physical status of the patient was re-assessed after the procedure. After I obtained informed consent, the scope was passed under direct vision. Throughout the procedure, the patient's blood pressure, pulse, and oxygen saturations were monitored continuously. The Colonoscope was introduced through the anus and advanced to the ileocolonic anastomosis. The colonoscopy was performed without difficulty. The patient tolerated the procedure well. The quality of the bowel preparation was poor. The appendiceal orifice was photographed. Scope In: 12:51:46 PM Scope Withdrawal Time 0 hours 8 minutes 43 seconds Scope Out: 1:07:12 PM Total Procedure Duration Time 0 hours 15 minutes 26 seconds Findings: The perianal and digital rectal examinations were normal. Multiple small and large-mouthed diverticula were found in the recto-sigmoid colon and sigmoid colon. A polypoid partially obstructing large mass was found at the splenic flexure, in the transverse colon, at the hepatic flexure and in the cecum. The mass was circumferential. The mass measured fourteen cm in length. In addition, its diameter measured five mm. Oozing was present. This was biopsied with a cold forceps for histology. Verification of patient identification for the specimen was done. Estimated blood loss was minimal. Diffuse severe inflammation characterized by erythema, friability, granularity and linear erosions was found in the descending colon, at the splenic flexure, in the transverse colon, at the hepatic flexure and in the cecum. Biopsies were taken with a cold forceps for histology. Verification of patient identification for the specimen was done. Estimated blood loss was minimal. Impression: - Preparation of the colon was poor. - Diverticulosis in the recto-sigmoid colon and in the sigmoid colon. - Rule out malignancy, partially obstructing tumor at the splenic flexure, in the transverse colon, at the hepatic flexure and in the cecum. Biopsied. - Malignant-appearing tumor in the colon. Biopsied. Biopsied. Recommendation: - [facility]. - Advance diet as tolerated. - Continue present medications. - Await pathology results. - Repeat colonoscopy for surveillance based on pathology results. Procedure Code(s): --- Professional --- 05520, Colonoscopy, flexible; with biopsy, single or multiple CPT copyright 2021 [employer]. All rights reserved. The codes documented in this report are preliminary and upon resident services director review may be revised to meet current compliance requirements. Jarrell Crystal DO 10/17/2023 1:21:03 PM This report has been signed electronically. Number of Addenda: 0 Note Initiated On: 10/17/2023 12:47 PM
--- NOTE | 2023-10-17 13:22 | PCM.POST.ANE ---
Anesthesia: Postop Eval I Current Vital Signs Temperature: 97.6 F Pulse Rate: 92 Blood Pressure: 85/50 Respiratory Rate: 16 Pulse Ox: 94 Oxygen Delivery Method: Room Air Assessment Airway patent: Yes Spontaneous unlabored respirations: Yes Mental status: Awake and Calm nausea: No Vomiting: No Anesthesia Complication: No Fluid Hydration Crystalloid volume administer (ml): 400 Total IV fluid infused: 400 Progress Note Anesthesia document: Postop Eval 1 completed: Yes
--- NOTE | 2023-10-17 16:05 | PCM.POSTANE2 ---
Anesthesia Postop Eval I Sum Postop Eval Completion status Anesthesia document: Postop Eval 1 completed: Yes Anesthesia Postop Eval I Summary Anesthesia Postop Eval I Summary: Anesthesia Postop Eval I: Assessment Summary Airway patent Yes 10/17/23 13:23 [email or web address] Spontaneous unlabored Yes 10/17/23 13:23 [email or web address] respirations Mental status Awake,Calm 10/17/23 13:23 [email or web address] nausea No 10/17/23 13:23 [email or web address] Vomiting No 10/17/23 13:23 [email or web address] Anesthesia Postop Eval I: Fluid Summary Crystalloid volume administer 400 10/17/23 13:23 [email or web address] (ml) Colloids volume administered ( ml) Blood Product volume administered (ml) Total IV fluid infused 400 10/17/23 13:23 [email or web address] Anesthesia Postop Eval I: Summary Notes Anesthesia Complication No 10/17/23 13:23 [email or web address] Anesthesia Complication Comment: Post-operative progress note Anesthesia: Postop Eval II Evaluation Mental status: Awake and Calm Pain Level: 0 nausea: No Vomiting: No Complications Anesthesia Complication: No
[2023-10-17] MEDS: Levothyroxine 150 MCG Tablet PO (20:51)
[2023-10-18 03:07] VITALS: BP 112/64; PULSE 78; PULSE 83; RESP 16; TEMP 36.4; O2SAT 97; O2SAT 98
[2023-10-18 08:07] VITALS: O2SAT 93
[2023-10-18 09:11] LABS: Absolute Lymphocyte Count 1.12 X10^3/uL (0.83-4.51); Absolute Neutrophil Count 4.1 X10^3/uL (2.0-7.7); Basophil# 0.06 X10^3/uL; Basophil% 0.9 % (0-1); Eosinophil# 0.17 X10^3/uL; Eosinophils% 2.6 % (0-5); Hematocrit 28.7 % (37-47); Hemoglobin 8.8 g/dL (12.0-15.0); Lymphocyte # 1.12 X10^3/ul (0.83-4.51); Lymphocyte % 16.8 % (19-41); Mean Corp Hgb Conc 30.7 g/dL (32-36); Mean Corpuscular Hgb 23.7 pg (27.0-32.0); Mean Corpuscular Volume 77.4 fL (81-99); Mean Platelet Vol. 8.4 fl (6.2-12.0); Monocyte# 0.87 X10^3/uL; Monocyte% 13.1 % (0-10); NRBC Flagged by Analyzer 0 % (0-5); Neutrophil # 4.13 X10^3/uL (2.7-7.7); Neutrophil % 61.9 % (47-70); Platelet Count 420 K/mm3 (150-450); RBC Distribution Width CV 14.6 % (11.6-14.6); RBC Distribution Width SD 39.1 fl (35.1-43.9); Red Blood Count 3.71 M/mm3 (4.2-5.4); White Blood Count 6.7 K/mm3 (4.4-11.0)
--- NOTE | 2023-10-18 09:24 | PCM.DC ---
Discharge Instructions Follow Up Care Test Results: Test results from this visit will be discussed in further detail at your follow-up appointment, if applicable. Discharge Plan Admission Admit Date/Time: 10/16/23 16:08 Primary Reason for Your Visit: Left-sided colitis, history of colon cancer status post right-hemicolectomy Attending Provider: Jameson Snell Primary Care Provider: Jeff Simeon Consulting Providers: Zuri Peterson Discharge Orders/Prescriptions Prescriptions: New pantoprazole [Protonix] 40 mg tablet,delayed release (DR/EC) 40 mg PO BID Qty: 60 2RF ciprofloxacin HCl [Cipro] 500 mg tablet 500 mg PO BID 7 Days Qty: 14 0RF metronidazole 500 mg tablet 500 mg PO Q8H 7 Days Qty: 21 0RF ferrous sulfate 324 mg (65 mg iron) tablet,delayed release (DR/EC) 324 mg PO QODAY Qty: 30 3RF ascorbic acid (vitamin C) 500 mg tablet 500 mg PO BID Qty: 60 2RF Continued glimepiride 2 mg tablet 2 mg PO DAILY levothyroxine 150 mcg tablet 150 mcg PO QHS Patient Comments: TAKE 1 TABLET BY MOUTH ONCE DAILY. TAKE ON EMPTY STOMACH. FOR THYROID. PT STATES TAKES IT AT NIGHT BECAUSE OF AN INTERACTION WITH LOSARTAN losartan 50 mg tablet 50 mg PO DAILY metformin 500 mg tablet 1,000 mg PO BID Patient Comments: TAKE 2 TABLETS BY MOUTH TWO TIMES A DAY WITH MEALS. fexofenadine 180 mg tablet 180 mg PO QHS Held aspirin 81 mg capsule 81 mg PO DAILY Hold Instructions: Hold for 1 week. famotidine [Acid Controller] 20 mg tablet 20 mg PO DAILY Hold Instructions: Hold for 3 months while she is taking pantoprazole. Referrals / Follow Up: Jeff Simeon DO [Primary Care Provider] - Maco Singh MD [Med Staff - Active Staff] - Within 1 Month FriendJarrell DO [Med Staff - Active Staff] - Within 2 Weeks Disposition Disposition (needs filled in before D/C Order can be placed): Home, Self Care
--- NOTE | 2023-10-18 09:33 | DS.PCM_ITS ---
Providers Date of Admission: 10/16/23 Date of Discharge: 10/18/23 Primary Care Physician: Dr. Jeff Simeon, DO Consultations 10/16/23 20:21 Consult: Gastroenterology Routine Consulting Provider: [facility] Reason for Consult: acute colitis in the setting of colon cancer EMERGENT Consult: No MD Notified: Yes Date Notified: 10/16/23 Time Notified: 16:10 Method of Notification: Text Reason For Visit: ACUTE COLITIS Diagnosis Discharge Diagnosis (1) Colitis: Status: Acute Code(s): K52.9 - Noninfective gastroenteritis and colitis, unspecified Plan This 78-year-old female came to ED for abdominal pain started left to right about 2 to 3 weeks ago but got worse the day before admission. blood in the stool, stool for occult blood positive on 09/25. Her stool consistency is semisolid to liquid with mucus. #Acute colitis: Patient admitted to [facility] floor. * Probably infectious colitis. However she did see gastroenterology back in May 2023 and there was concern for possible inflammatory bowel disease due to elevated calprotectin. * She went to her oncologist with abdominal pain. CT of the abdomen and pelvis done showed acute colitis of the transverse and descending colon. * WBC is not elevated. * hydrate with IVF NS @ 125cc/hr * start on IV ciprofloxacin and metronidazole. * GI consulted. Plan for colonoscopy. Patient also due for EGD therefore EGD and colonoscopy requested. * consult gastroenterology as patient says she was told she would need a colonoscopy about 6 months after the colon cancer surgery. * on IV morphine prn for pain * Of note she did have a previous CT of the abdomen and pelvis with IV contrast done on 10/10/2023 which showed abnormal thickening of the distal transverse colon along with the entire descending colon with pericolonic inflammatory stranding but no perforation or abscess consistent with diffuse colitis, likely infectious or inflammatory. Repeat CAT scan done noted as above * discussed with Dr Crystal, and per discussion, to order Golytely prep 4L x 1 for colonoscopy tomorrow. * Mild hypokalemia: Potassium replacement ordered. Serum magnesium and phosphorus ordered. EGD and colonoscopy on 10/17/2023 Impression: - Grade I esophageal varices. - Normal lower third of esophagus. - Friable (with contact bleeding) and granular mucosa in the lesser curvature. Biopsied. - No gross lesions in the second portion of the duodenum. Recommendation: - [facility]. - Advance diet as tolerated. - Continue present medications. - Await pathology results Impression: - Preparation of the colon was poor. - Diverticulosis in the recto-sigmoid colon and in the sigmoid colon. - Rule out malignancy, partially obstructing tumor at the splenic flexure, in the transverse colon, at the hepatic flexure and in the cecum. Biopsied. - Malignant-appearing tumor in the colon. Biopsied. Biopsied. Recommendation: - [facility]. - Advance diet as tolerated. - Continue present medications. - Await pathology results. - Repeat colonoscopy for surveillance based on pathology results. Patient requesting discharge. Colon prep was poor, pathology pending. Advised to follow-up in GI office in 2 weeks. Follow-up with Dr. Singh in 1 month. #History of ascending colon cancer * s/p laparotomy with right hemicolectomy and excision of adenocarcinoma with the ascending colon with abscess formation in the pericolonic adipose tissue. * Was diagnosed with colon cancer stage IIa. She elected observation. Her oncologist. * Follow-up with oncology on outpatient basis. #Type 2 diabetes mellitus: Hold glimepiride and metformin. Accu-Chek before meals and at bedtime with Humalog sliding scale coverage and hypoglycemia protocol. Glucose 122 to 151 #Hypothyroidism: On Synthroid TSH low 0.224. Free T4 0.97. On levothyroxine 150 mcg daily. #Hypertension: On losartan DVT prophylaxis: SCDs CODE STATUS: Full code * Patient counseled extensively about different types of CODE STATUS including full code, DNR CCA and DNR CCA. Patient elects to be full code. * Total [id number] time 17 minutes. Medications at Discharge Home Medications aspirin 81 mg capsule 81 mg PO DAILY HEART 03/05/23 glimepiride 2 mg tablet 2 mg PO DAILY diabetes 03/05/23 levothyroxine 150 mcg tablet 150 mcg PO QHS thyroid 03/05/23 losartan 50 mg tablet 50 mg PO DAILY blood pressure 03/05/23 metformin 500 mg tablet 1,000 mg PO BID diabetes 03/05/23 famotidine 20 mg tablet (Acid Controller) 20 mg PO DAILY 10/16/23 fexofenadine 180 mg tablet 180 mg PO QHS 09/03/24 ascorbic acid (vitamin C) 500 mg tablet 500 mg PO BID #60 tabs 10/18/23 ciprofloxacin HCl 500 mg tablet (Cipro) 500 mg PO BID 1 week #14 tabs 10/18/23 ferrous sulfate 324 mg (65 mg iron) tablet,delayed release 324 mg PO QODAY #30 tabs 10/18/23 metronidazole 500 mg tablet 500 mg PO Q8H 7 days #21 tabs 10/18/23 pantoprazole 40 mg tablet,delayed release (Protonix) 40 mg PO BID #60 tabs 10/18/23 Physical Exam Narrative Seen and examined. Abdominal pain has resolved. No more GI bleed. Wants to go home. Physical exam General: Alert, Oriented x3, Cooperative HEENT: Atraumatic, PERRLA, EOMI, Normocephalic Oral: No Gingival or Mucosal Lesions/ Ulcerations Neck: Supple, No JVD, Negative Carotid Bruits Chest wall/Lungs: Air entry equal in bilateral lung bases. No crepitation/rhonchi Cardiovascular: Regular rate, Regular Rhythm, Normal S1, Normal S2, No M/G/R Abdomen: Bowel Sounds sluggish, Soft, no tenderness. No rebound tenderness. : No dysuria. No renal angle tenderness. No suprapubic tenderness. Extremities: No edema, Capillary Refill Less than 3 Seconds Skin: No rashes, No breakdown Musculoskeletal: No Tenderness to Palpation of Joints or Extremities Neurological: Cranial nerves II-XII grossly intact, DTR 2+/4. No acute focal neurological deficit. Psych/Mental Status: flat affect Weight / BMI Weight Weight: 166 lb 10.711 oz Body Mass Index (BMI) 29.5 ABG / Lab / Microbiology Data 10/18/23 08:57 10/17/23 05:11 Laboratory: Laboratory Results - last 24 hr 10/17/23 05:11: Phosphorus 3.1, Magnesium 1.6, Free T4 0.97 10/18/23 08:57: WBC 6.7, RBC 3.71 L, Hgb 8.8 L, Hct 28.7 L, MCV 77.4 L, MCH 23.7 L, MCHC 30.7 L, RDW Std Deviation 39.1, RDW Coeff of Anand 14.6, Plt Count 420, MPV 8.4, Immature Gran % (Auto) 4.700 H, Neut % (Auto) 61.9, Lymph % (Auto) 16.8 L, [place] % (Auto) 13.1 H, Eos % (Auto) 2.6, Baso % (Auto) 0.9, Absolute Neuts (auto) 4.1, Absolute Lymphs (auto) 1.12, Nucleated RBC % 0 Microbiology: Microbiology 10/16/23 21:09 Stool Enteric Bacteriology - Final 10/16/23 21:09 Stool Clostridioides difficile (PCR) - Final Meaningful Use Info Meaningful Use Meaningful Use Diagnoses (Choose all that apply): None applicable Ischemic Stroke Statin Dosing Therapy Reference: STATIN DOSE THERAPY REFERENCE: * Patients > 75 years receive moderate or high dose statin therapy. * Patients 75 years or YOUNGER should receive HIGH intensity statin dose unless contraindicated. You will be required to document reason for non-treatment if statin daily dose does not meet guidelines. HIGH DOSE STATIN THERAPY DAILY Atorvastatin > than or = to 40 mg Rosuvastatin > than or = to 20 mg Amlodipine + Atorvastatin > than or = to 2.5/40 mg Ezetimibe + Simvastatin 10/80 mg Simvastatin 80mg Discharge Plan Admission Admit Date/Time: 10/16/23 16:08 Primary Reason for Your Visit: Left-sided colitis, history of colon cancer status post right-hemicolectomy Attending Provider: Jameson Snell Primary Care Provider: Jeff Simeon Consulting Providers: Zuri Peterson Discharge Orders/Prescriptions Prescriptions: New pantoprazole [Protonix] 40 mg tablet,delayed release (DR/EC) 40 mg PO BID Qty: 60 2RF ciprofloxacin HCl [Cipro] 500 mg tablet 500 mg PO BID 7 Days Qty: 14 0RF metronidazole 500 mg tablet 500 mg PO Q8H 7 Days Qty: 21 0RF ferrous sulfate 324 mg (65 mg iron) tablet,delayed release (DR/EC) 324 mg PO QODAY Qty: 30 3RF ascorbic acid (vitamin C) 500 mg tablet 500 mg PO BID Qty: 60 2RF Continued glimepiride 2 mg tablet 2 mg PO DAILY levothyroxine 150 mcg tablet 150 mcg PO QHS Patient Comments: TAKE 1 TABLET BY MOUTH ONCE DAILY. TAKE ON EMPTY STOMACH. FOR THYROID. PT STATES TAKES IT AT NIGHT BECAUSE OF AN INTERACTION WITH LOSARTAN losartan 50 mg tablet 50 mg PO DAILY metformin 500 mg tablet 1,000 mg PO BID Patient Comments: TAKE 2 TABLETS BY MOUTH TWO TIMES A DAY WITH MEALS. fexofenadine 180 mg tablet 180 mg PO QHS Held aspirin 81 mg capsule 81 mg PO DAILY Hold Instructions: Hold for 1 week. famotidine [Acid Controller] 20 mg tablet 20 mg PO DAILY Hold Instructions: Hold for 3 months while she is taking pantoprazole. Referrals / Follow Up: Jeff Simeon DO [Primary Care Provider] - Maco Singh MD [Med Staff - Active Staff] - Within 1 Month FriendJarrell DO [Med Staff - Active Staff] - Within 2 Weeks Disposition Disposition (needs filled in before D/C Order can be placed): Home, Self Care Charges/Coding Visit Charges Inpatient E&M: 33371 Disch Hosp >30min
[2023-10-18 09:57] LABS: Anion Gap 6 (5-15); BUN 5 mg/dL (7-18); BUN/Creat Ratio 9.1 RATIO (10-20); Calcium,Total 7.4 mg/dL (8.5-10.1); Chloride 109 mmol/L (98-107); Creatinine, Serum 0.55 mg/dL (0.55-1.02); EST Glomerular Filtration Rate 115 mL/min (>60); Est Glom Filt Rate - Afr Amer 139 mL/min (>60); Estimated Creatinine Clearance 58.25 ml/min; Glucose 149 mg/dL (74-106); Potassium 3.5 mmol/L (3.5-5.1); Sodium Level 136 mmol/L (136-145)
[2023-10-18 10:01] VITALS: BP 99/52; PULSE 83; RESP 15; TEMP 36.6; O2SAT 100
[2023-10-18] MEDS: Famotidine 20 MG Tablet PO (10:03)
[2023-10-18] MEDS: Potassium Chloride Oral Tablet 20 MEQ 40 MEQ PO ×2 (10:03→11:46)
[2023-10-18] MEDS: Magnesium Chloride 64 MG Delay Rel.Tablet 128 MG PO (10:03)
--- NOTE | 2023-10-18 10:16 | CASEMGMT ---
Patient has order for discharge. RN CM in to discuss needs at discharge. RN CM reviewed progress with therapy, no therapy recommended, ambulating independently. Patient denies needs or help at discharge. Patient had no further questions or concerns.
[2023-10-18] MEDS: Ciprofloxacin 500 MG Tablet PO (10:25)
[2023-10-18] MEDS: metroNIDAZOLE 500 MG Tablet PO (10:25)
[2023-10-18] MEDS: Pantoprazole Sodium 40 MG Tablet PO (10:25)
--- NOTE | 2023-10-18 13:06 | CHAPLAIN ---
Type of Pastoral Visit ___ Initial Visit ___ Follow-up Visit ___ On-call Visit ___ General Patient Visit ___ Spiritual Assessment ___ Family Conference ___ Bereavement ___ Rapid Response ___ Code Blue ___ Other (describe below) Pastoral Care Referral From ___ Patient ___ Family ___ Nurse ___ Physician ___ Transplant Case Manager ___ Assistant Womens Volleyball Coach ___ Other (describe below) Sacrament/Intervention ___ Active listening ___ Anointing ___ Anglican ___ Bereavement ___ Communion ___ Rosangela exploration ___ ___ Life review ___ Prayer ___ Reconciliation ___ Sacrament of Sick ___ Supportive presence ___ Wedding ___ Other (describe below) Pastoral Comments patient was unavailable during first attempt to visit; on second attempt the patient was being discharged and ready to be wheeled out
== END 2023-10-18 11:49 | disposition home or self-care (01) | DRG 392 ==
LOC: ED 17:56 → PCU 19:31
PROVIDERS: Anesthesiology; Family Medicine; Internal Medicine Gastroenterology; Admitting Provider Student in an Organized Health Care Education/Training Program; Emergency Provider Emergency Medicine; PCP Student in an Organized Health Care Education/Training Program; Visit Provider Internal Medicine
PROC: 0DJD8ZZ Inspection of Lower Intestinal Tract, Via Natural or Artificial Opening Endoscopic (ICD-10-PCS; CPT 45378; principal; 2023-10-17 12:55)
DX: A09 Infectious gastroenteritis and colitis, unspecified (principal); I85.00 Esophageal varices without bleeding; C18.9 Malignant neoplasm of colon, unspecified; E11.9 Type 2 diabetes mellitus without complications; E03.9 Hypothyroidism, unspecified; D50.9 Iron deficiency anemia, unspecified; I10 Essential (primary) hypertension; K57.30 Diverticulosis of large intestine without perforation or abscess without bleeding; E87.6 Hypokalemia; Z79.84 Long term (current) use of oral hypoglycemic drugs; Z79.82 Long term (current) use of aspirin; Z79.899 Other long term (current) drug therapy
CPT/HCPCS: 36415; 74176; 80048; 80053; 81001; 82378; 83036; 83690; 83735; 84100; 84439; 84443; 85025; 87493; 87506; 88305; 88331; 88342; 93005; 97161; 97802; 99284; J7030; J7120; J0744; J2405

== ENCOUNTER → 2023-11-20 | Outpatient (CLI) | payer MEDICARE, SELFPAY ==
--- NOTE | 2023-11-20 10:45 | VDLE_ITS ---
Reason For Study: Bilateral leg swelling RIGHT LEFT GSV is normal. GSV is normal. CFV is compressible, spontaneous, phasic, CFV is compressible, spontaneous, phasic, competent and demonstrates normal competent, and demonstrates normal augmentation. augmentation. FV is compressible, spontaneous, phasic, FV is compressible, spontaneous, phasic, competent and demonstrates normal competent and demonstrates normal augmentation. augmentation. POP V is compressible, spontaneous, phasic, POP V is compressible, spontaneous, phasic, competent and demonstrates normal competent and demonstrates normal augmentation. augmentation. T/P Trunk is compressible. T/P Trunk is compressible. PTV is compressible. PTV is compressible. RT PerV is compressible. LT PerV is compressible. Procedure Acute deep vein thrombosis is noted in the This is a venous duplex using B-mode, color Soleus V. It is dilated and NONCOMPRESSIBLE. flow and spectral Doppler. Exam performed in department. A preliminary report was called and/or faxed to Johana JONES. VL/Venous Duplex US - Cliff Extrem Interpretation Summary Acute deep vein thrombosis is noted in the left soleus vein. Deep veins of the right lower extremity are patent and compressible segmentally . There is no evidence of right lower extremity deep vein thrombosis. The bilateral great sap henous veins appear patent and Ordering Physician: Sheree Richardson Referring Physician: Jeff Simeon Performed By: Samantha Nash RVJyoti
== END | disposition home or self-care (01) ==
LOC: CVS 10:42
PROVIDERS: PCP Student in an Organized Health Care Education/Training Program; Referring Provider Nurse Practitioner Family; Visit Provider Nurse Practitioner Family
DX: R60.0 Localized edema (principal)
CPT/HCPCS: 93970

== ENCOUNTER → 2023-12-03 | Outpatient (CLI) | payer MEDICARE, SELFPAY ==
--- NOTE | 2023-12-03 17:31 | CT_ITS ---
INDICATION: elevated CEA;h/o colon ca EXAMINATION: CT CHEST WITH CONTRAST - CT Chest W/ Contrast Injection TECHNIQUE: Helically acquired images were obtained of the chest following IV contrast. The protocol utilizes one or more of the following dose reduction techniques: automated exposure control, adjustment of mA and/or kV according to patient size,and/or use of iterative reconstruction technique. IV Contrast dosage and agent: 75 cc of Isovue-370 RADIATION DOSAGE (If Supplied By Facility): CTDIvol = ( 10.21 ) mGy, DLP = ( 352.24 ) mGycm COMPARISON: No relevant prior comparison study available FINDINGS: LUNGS, PLEURA AND LARGE AIRWAYS: 1 cm nodule in the superior segment of the right lower lobe seen on axial image 41 series 4. Scattered linear stranding/atelectasis. No pleural effusion or thickening. No pneumothorax. THYROID: No thyroid lesions. HEART AND PERICARDIUM: Heart size is normal. No pericardial effusion. No evidence of coronary calcifications. VESSELS: Thoracic aorta is not dilated. No aortic dissection. No obvious central pulmonary embolism although this study was not performed with the pulmonary embolism protocol. MEDIASTINUM AND JACKY: No mediastinal or hilar adenopathy. Esophagus is unremarkable. No hiatal hernia. UPPER ABDOMEN: No acute pathology. Partially visualized left renal cysts. BONES: No suspicious lytic or blastic abnormality. CT/Chest WITH Contrast IMPRESSION: 1. 1 cm right lower lobe nodule for which correlation with PET scan is recommended. 2. Scattered atelectatic changes. 3. Otherwise unremarkable examination. Electronically Signed: Curtis Peguero MD at 14:54 EDT ,
== END | disposition home or self-care (01) ==
PROVIDERS: PCP Student in an Organized Health Care Education/Training Program; Referring Provider Nurse Practitioner Family; Visit Provider Nurse Practitioner Family
DX: R97.0 Elevated carcinoembryonic antigen [CEA] (principal); Z85.038 Personal history of other malignant neoplasm of large intestine
CPT/HCPCS: 71260; Q9967; A4216

== ENCOUNTER → 2024-01-22 | Outpatient (CLI) | payer MEDICARE, SELFPAY ==
--- NOTE | 2024-01-22 12:08 | MRI_ITS ---
EXAM: MR ABDOMEN AND PELVIS WITHOUT INTRAVENOUS CONTRAST CLINICAL INDICATION: D64.9 - Anemia, unspecified TECHNIQUE: Multiplanar and multisequence MR images of the abdomen and pelvis without intravenous contrast. COMPARISON: CT scan of the abdomen and pelvis 11/05/2023. FINDINGS: LOWER THORAX: Unremarkable. No pleural effusion. ABDOMEN: LIVER: Unremarkable. Normal morphology. GALLBLADDER AND BILE DUCTS: Cholecystectomy. No intra- or extrahepatic biliary ductal dilation. PANCREAS: Unremarkable. No focal cystic mass. SPLEEN: Unremarkable. Normal size without focal cystic or solid mass. ADRENALS: Unremarkable. No nodules. KIDNEYS AND URETERS: Unremarkable. Normal renal size and position. No hydronephrosis. STOMACH AND BOWEL: Status post right colectomy with ileocolic anastomosis involving the mid transverse colon. PELVIS: APPENDIX: See above. BLADDER: Unremarkable. OVARIES: Unremarkable as visualized. No mass or complex cyst. UTERUS/CERVIX: Unremarkable. No mass. Endometrial stripe is normal in thickness and appearance. ABDOMEN and PELVIS: INTRAPERITONEAL SPACE: Unremarkable. No ascites or other fluid collection. VASCULATURE: Unremarkable. Abdominal aorta is non-dilated. LYMPH NODES: Persistent wall thickening of the transverse colon through the proximal sigmoid colon similar to the prior CT scan. Persistent prominence of the adjacent vasa recta with small scattered adjacent lymph nodes especially involving the residual transverse colon and proximal descending colon. No focal colon mass identified. MRI/Enterography Abd/Pel IMPRESSION: 1. Persistent wall thickening of the transverse colon through the proximal sigmoid colon with adjacent prominence of the vasa recta and numerous small scattered adjacent lymph nodes similar to the prior CT. Findings consistent with colitis likely due to inflammatory bowel disease. An underlying malignancy not excluded. Consider colonoscopy follow-up. 2. Cholecystectomy. 3. Status post right colectomy with ileocolic anastomosis involving the mid transverse colon. Electronically Signed: Santosh Dimas MD at 22:17 EST ,
[2024-01-22 12:54] VITALS: BP 100/60; PULSE 88; RESP 16; O2SAT 99; BMI 28.3
== END | disposition home or self-care (01) ==
LOC: MRI 12:05
PROVIDERS: PCP Student in an Organized Health Care Education/Training Program; Referring Provider Student in an Organized Health Care Education/Training Program; Visit Provider Student in an Organized Health Care Education/Training Program
DX: D64.9 Anemia, unspecified (principal)
CPT/HCPCS: 74183; J1610

== ENCOUNTER 2024-04-29 11:24 | Outpatient (RCR) | payer MEDICARE, SELFPAY | END 2024-05-12 23:59 | LOC: NS 11:24 | PROVIDERS: PCP Student in an Organized Health Care Education/Training Program; Visit Provider Internal Medicine Medical Oncology | DX: Z71.3 Dietary counseling and surveillance (principal) ==

== ENCOUNTER → 2024-05-30 | Outpatient (CLI) | payer MEDICARE, SELFPAY ==
--- NOTE | 2024-05-30 12:20 | BI_ITS ---
EXAM: SCRN MAMM (CAD)W/FLOR BILAT 05/30/2024 CLINICAL HISTORY: F, Age 79 y/o , SCREENING TECHNIQUE: Bilateral screening digital breast tomosynthesis with 2D and 3D images. Computer aided detection. COMPARISON: Prior exam(s) dated 05/23/2023, 05/22/2022. FINDINGS: TISSUE DENSITY: The breast tissue is composed of scattered area of fibroglandular density. Bilateral Breast Mammographic Findings: No significant masses, calcifications or other abnormalities are identified. BI/SCRN MAMM (CAD)W/FLOR BILAT IMPRESSION: Right Breast: BIRADS 1 NEGATIVE. Left Breast: BIRADS 1 NEGATIVE. OVERALL FINAL ASSESSMENT: BIRADS 1 NEGATIVE. RECOMMENDATION: Routine annual follow-up in 1 Year A letter with findings and recommendations will be mailed to the patient. Reading Location: [facility] [place]
== END | disposition home or self-care (01) ==
LOC: OPBI 12:18
PROVIDERS: PCP Student in an Organized Health Care Education/Training Program; Referring Provider Student in an Organized Health Care Education/Training Program; Visit Provider Student in an Organized Health Care Education/Training Program
DX: Z12.31 Encounter for screening mammogram for malignant neoplasm of breast (principal)
CPT/HCPCS: 77063; 77067

== ENCOUNTER → 2024-12-09 | Outpatient (CLI) | payer MEDICARE, SELFPAY | END | disposition home or self-care (01) | LOC: LABSPEC 11:34 | PROVIDERS: PCP Student in an Organized Health Care Education/Training Program; Referring Provider Surgery; Visit Provider Surgery | DX: Z01.818 Encounter for other preprocedural examination (principal) | CPT/HCPCS: 87081 ==

== ENCOUNTER 2025-01-15 18:16 | Observation (INO) | payer MEDICARE, SELFPAY ==
--- NOTE | 2025-01-06 10:53 | EKG12_ITS ---
Test Reason : PREOP Blood Pressure : */* mmHG Vent. Rate : 68 BPM Atrial Rate : 68 BPM P-R Int : 156 ms QRS Dur : 108 ms QT Int : 422 ms P-R-T Axes : 46 -14 32 degrees QTcB Int : 448 ms Normal sinus rhythm Incomplete right bundle branch block Borderline ECG Confirmed by ANEESH KEYES, MAURILIO ([id number]), graphics editor AMADO HOFFMANN ([id number]) on 01/07/2025 9:04:04 AM Referred By: Jeff Simeon Confirmed By: MAURILIO MELENDREZ MD
[2025-01-06 10:59] LABS: Hematocrit 40.3 % (37-47); Hemoglobin 12.4 g/dL (12.0-15.0); Mean Corp Hgb Conc 30.8 g/dL (32-36); Mean Corpuscular Volume 79.0 fL (81-99); Mean Platelet Vol. 10.0 fl (6.2-12.0); Platelet Count 368 K/mm3 (150-450); RBC Distribution Width CV 14.3 % (11.6-14.6); RBC Distribution Width SD 41.1 fl (35.1-43.9); Red Blood Count 5.10 M/mm3 (4.2-5.4); White Blood Count 7.7 K/mm3 (4.4-11.0)
--- NOTE | 2025-01-06 16:12 | PAT.ANE_ITS ---
Pre-Assessment Diagnosis/Proposed Procedure Planned Operative Procedure(s): Lap Robotic Incisional/Ventral Hernia w/mesh Anesthesia History Anesthesia History - spiritual care coordinator: Anesthesia History - spiritual care coordinator Hx Hospitalization No 01/01/25 12:24 Any Problems With Anesthesia No 01/01/25 12:24 Cholinesterase deficiency No 01/01/25 12:24 You/Your Family Experience No 01/01/25 12:24 fever (hyperthermia) with Relationship Recent Exposure to Contagious No 10/17/23 05:17 Disease Does patient have nerve No 01/01/25 12:24 stimulator Patient instructed to have device shut off --Does patient have Pacemaker or ICD? When Was Last Pacemaker Check QUESTION #4 FULL TEXT: You/Your Family Experience fever (hyperthermia) with Anesthesia Last Oral Intake Last Oral intake: Last Oral Intake NPO since Meds taken in AM with sips of water? Meds patient instructed to take am of surgery PONV PONV - spiritual care coordinator: PONV - spiritual care coordinator Female Yes 01/01/25 12:24 HX of Motion Sickness Yes 01/01/25 12:24 HX of N/V After Surgery No 01/01/25 12:24 Non-Smoker Yes 01/01/25 12:24 Duration of Surgery greater Yes 01/01/25 12:24 than 60 minutes Number of Risk Factors 4 01/01/25 12:24 PONV Score Severe Risk 01/01/25 12:24 Height & Weight Height & Weight: Anesthesia: Height & Weight Height 5 ft 3 in 12/09/24 09:41 Respiratory Assessment Respiratory Assessment - spiritual care coordinator: Respiratory Tract Infection Hx - spiritual care coordinator Hx Respiratory Tract Infection No 01/01/25 12:24 STOP Sleep Apnea STOP Sleep Apnea - spiritual care coordinator: STOP Sleep Apnea - spiritual care coordinator Hx Hypertension Yes 01/01/25 12:24 Hx Sleep Apnea Yes: ON HER LEFT SIDE 01/01/25 12:24 CPAP No 01/01/25 12:24 BIPAP No 01/01/25 12:24 Do you snore loudly (louder than talking or can be heard Do you often feel tired/ fatigued/ sleepy during daytime? Has anyone observed you stop breathing during sleep? STOP Results Positive 01/01/25 12:24 QUESTION #5 FULL TEXT : Do you snore loudly (louder than talking or can be heard through closed doors)? 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 Specify any problems Hx of Preganancy in last 3 No 01/01/25 12:24 Months Nurse Filling Out Transfusion JZOLLINGE 01/01/25 12:24 & Questions: Date: 01/01/25 01/01/25 12:24 Time: 12:27 01/01/25 12:24 Patient unable to answer at this time (ie. confused, unrespo /Reproduction History /Reproductive History - spiritual care coordinator: /Reproductive Hx- spiritual care coordinator Hx Now No 01/01/25 12:24 Gestational Age (in weeks): EDC: Hx Hx Para Hx Section SAB No 01/01/25 12:24 Does the father of the baby or his family experience fever w Father of the baby Malignant Hypertension history comment [facility] Medical History (Updated 01/01/25 @ 12:24 by Toya Mccabe) Wears glasses Dietary restriction Pre-op testing Colon cancer Bilateral lower extremity edema Elevated CEA GI bleed Colitis Vision loss of right eye Vision loss of left eye Anemia Hypothyroidism Chronic pain Rheumatoid arthritis GERD (gastroesophageal reflux disease) Non-smoker Irregular heart beat Hypertension Migraines Seizures Diabetes mellitus Home Medications ?Medication ?Instructions ?Recorded ?Last Taken ?Type glimepiride 2 mg tablet 2 mg PO DAILY diabetes 03/0510/16/23 History levothyroxine 150 mcg tablet 150 mcg PO SUMOTU thyroid 03/05/23 10/15/23 History losartan 50 mg tablet 50 mg PO DAILY blood pressur e 03/05/23 10/16/23 History metformin 500 mg tablet 500 mg PO BID diabetes 03/0510/16/23 History levothyroxine 150 mcg capsule [address] [facility] thyr oid 12/13/23 Unknown History ferrous sulfate 325 mg (65 mg 325 mg PO .COMPLEX 05/06 Unknown History iron) tablet (FeroSul) cholestyramine (with sugar) 4 gram 4 g PO HS 3 months #60 ea 11/04/24 Unknown Rx powder for susp in a packet Allergy/AdvReac Type Severity Reaction Status Date / Time Corticosteroids Allergy Severe Shortness Verified 01/01/25 12:15 (Glucocorticoids) (steroids) of breath acetaminophen (From Tylenol) Allergy Intermediate Shortness Verified 01/01/25 12:15 of breath aspirin Allergy Intermediate Shortness Verified 01/01/25 12:15 of breath diphenhydramine (From Allergy PT UNSURE Verified 01/01/25 12:15 Benadryl) OF REACTION Penicillins Allergy PT UNSURE Verified 01/01/25 12:15 OF REACTION Beef Containing Products AdvReac Other Verified 01/01/25 12:15 [place] And Derivatives AdvReac Other Verified 01/01/25 12:15 Food Allergies: Uncoded AdvReac Vomiting Verified 01/01/25 12:15 Surgical History History of appendectomy Status post right hemicolectomy Hx of cholecystectomy Social History Smoking Status: Never smoker alcohol intake: never Audit: Pertinent Findings Pertinent Findings EKG Perinent findings: Normal sinus rhythm Incomplete right bundle branch block Recommendation Anesthesia Recommendation Anesthesia recommendation: OPTIMIZED for anesthesia
[2025-01-15] VITALS (14 sets, daily range): BP systolic 115–151; BP diastolic 55–105; PULSE 60–96; RESP 16–20; TEMP 36–36.6; O2SAT 84–98; BMI 31.7; BMI 32.5
[2025-01-15] MEDS: Lactated Ringers 1,000 ML 15 ML IV (11:26)
--- NOTE | 2025-01-15 11:26 | PRE.ANES_ITS ---
ASA Classification* ASA Classification ASA Classification: 3 Assessment & Plan Anesthesia* Anesthesia Assessment Anesthesia Assessment: Discussed sedation and/or anesthesia options, risks, benefits, and alternatives with patient/parents/legal guardian/POA. Questions invited. The patient/parents/legal guardian/POA seems to understand and agrees to proceed with anesthesia plan. Reviewed the physical assessment, medical history, allergy history and patient home medications list prior to surgery/procedure/anesthetic and documented any changes. Performed airway and anesthesia risk assessments. Anesthesia Type Anesthesia Type: General History Source History Obtained from:: Patient and Chart Anesthesia Focused Assessment* Temperature: 97.2 F Pulse Rate: 72 Blood Pressure: 145/71 Respiratory Rate: 16 Pulse Ox: 98 Oxygen Delivery Method: Room Air Airway Assessment Mouth opens: >3 cm Mallampati Score: III Teeth Condition: Chipped/Broken (Chipped front incisors.) Neck Range of motion (ROM): Limited ROM (Somewhat Decreased) Labs Anesthesia Preop lab: CBC WBC, (4.4-11.0) 7.7 K/mm3 01/06/25, 10:43 RBC, (4.2-5.4) 5.10 M/mm3 01/06/25, 10:43 Hgb, (12.0-15.0) 12.4 g/dL 01/06/25, 10:43 Hct, (37-47) 40.3 % 01/06/25, 10:43 Plt Count, (150-450) 368 K/mm3 01/06/25, 10:43 CHEMISTRY Potassium, (3.3-5.1) 4.4 mmol/L 10/16/24, 08:06 Sodium, (133-145) 141 mmol/L 10/16/24, 08:06 Magnesium, (1.5-2.2) 1.7 mg/dL 04/17/24, 13:15 Phosphorus, (2.7-4.5) 3.7 mg/dL 04/17/24, 13:15 BUN, (4-19) 16 mg/dL 10/16/24, 08:06 Creatinine, (0.70-1.20) 0.61 mg/dL L 10/16/24, 08:06 Glucose, (70-99) 164 mg/dL H 10/16/24, 08:06 POC Glucose, (74-106) 156 mg/dL H Today, 10:40 TSH, (0.300-4.200) 0.080 uIU/mL L 01/06/25, 10:43 COAG Pre-Assessment Diagnosis/Proposed Procedure Planned Operative Procedure(s): Lap Robotic Incisional/Ventral Hernia w/mesh Anesthesia History Anesthesia History - tour production supervisor: Anesthesia History - tour production supervisor Hx Hospitalization No 01/01/25 12:24 Any Problems With Anesthesia No 01/01/25 12:24 Cholinesterase deficiency No 01/01/25 12:24 You/Your Family Experience No 01/01/25 12:24 fever (hyperthermia) with Relationship Recent Exposure to Contagious No 01/15/25 10:36 Disease Does patient have nerve No 01/01/25 12:24 stimulator Patient instructed to have device shut off --Does patient have Pacemaker No 01/15/25 10:36 or ICD? When Was Last Pacemaker Check QUESTION #4 FULL TEXT: You/Your Family Experience fever (hyperthermia) with Anesthesia Last Oral Intake Last Oral intake: Last Oral Intake NPO since 09:05 01/15/25 10:36 Meds taken in AM with sips of Yes 01/15/25 10:36 water? Meds patient instructed to take am of surgery Any additional information?: Yes Meds taken in AM with sips of water?: Yes PONV PONV - tour production supervisor: PONV - tour production supervisor Female Yes 01/01/25 12:24 HX of Motion Sickness Yes 01/01/25 12:24 HX of N/V After Surgery No 01/01/25 12:24 Non-Smoker Yes 01/01/25 12:24 Duration of Surgery greater Yes 01/01/25 12:24 than 60 minutes Number of Risk Factors 4 01/01/25 12:24 PONV Score Severe Risk 01/01/25 12:24 Height & Weight Height & Weight: Anesthesia: Height & Weight Height 5 ft 3 in 01/15/25 10:36 Weight: 81.2 kg 01/15/25 10:36 Body Mass Index (BMI) 31.7 01/15/25 10:36 Respiratory Assessment Respiratory Assessment - tour production supervisor: Respiratory Tract Infection Hx - tour production supervisor Hx Respiratory Tract Infection No 01/01/25 12:24 STOP Sleep Apnea STOP Sleep Apnea - tour production supervisor: STOP Sleep Apnea - tour production supervisor Hx Hypertension Yes 01/01/25 12:24 Hx Sleep Apnea Yes: ON HER LEFT SIDE 01/01/25 12:24 CPAP No 01/01/25 12:24 BIPAP No 01/01/25 12:24 Do you snore loudly (louder than talking or can be heard Do you often feel tired/ fatigued/ sleepy during daytime? Has anyone observed you stop breathing during sleep? STOP Results Positive 01/01/25 12:24 QUESTION #5 FULL TEXT : Do you snore loudly (louder than talking or can be heard through closed doors)? 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 Specify any problems Hx of Preganancy in last 3 No 01/01/25 12:24 Months Nurse Filling Out Transfusion JZOLLINGE 01/01/25 12:24 & Questions: Date: 01/01/25 01/01/25 12:24 Time: 12:27 01/01/25 12:24 Patient unable to answer at this time (ie. confused, unrespo /Reproduction History /Reproductive History - tour production supervisor: /Reproductive Hx- tour production supervisor Hx Now No 01/01/25 12:24 Gestational Age (in weeks): EDC: Hx Hx Para Hx Section SAB No 01/01/25 12:24 Does the father of the baby or his family experience fever w Father of the baby Malignant Hypertension history comment Active Medications Active Medications: Current Medications Generic Name Dose Route Start Last Admin Trade Name Freq PRN Reason Stop Dose Admin Lactated Ringer's 1,000 mls @ 15 mls/hr 01/15/25 10:30 IV .Q48H LINH PFSH Medical History Wears glasses Dietary restriction Pre-op testing Colon cancer Bilateral lower extremity edema Elevated CEA GI bleed Colitis Vision loss of right eye Vision loss of left eye Anemia Hypothyroidism Chronic pain Rheumatoid arthritis GERD (gastroesophageal reflux disease) Non-smoker Irregular heart beat Hypertension Migraines Seizures Diabetes mellitus Home Medications ?Medication ?Instructions ?Recorded ?Last Taken ?Type glimepiride 2 mg tablet 2 mg PO DAILY diabetes 03/0510/16/23 History levothyroxine 150 mcg tablet 150 mcg PO SUMOTU thyroid 03/05/23 10/15/23 History losartan 50 mg tablet 50 mg PO DAILY blood pressur e 03/05/23 01/15/25 09:05 History metformin 500 mg tablet 500 mg PO BID diabetes 03/0510/16/23 History levothyroxine 150 mcg capsule 225 mcg PO WETHFRSA thyr oid 12/13/23 Unknown History ferrous sulfate 325 mg (65 mg 325 mg PO .COMPLEX 05/06 Unknown History iron) tablet (FeroSul) cholestyramine (with sugar) 4 gram 4 g PO HS 3 months #60 ea 11/04/24 Unknown Rx powder for susp in a packet Allergy/AdvReac Type Severity Reaction Status Date / Time Corticosteroids Allergy Severe Shortness Verified 01/01/25 12:15 (Glucocorticoids) (steroids) of breath acetaminophen (From Tylenol) Allergy Intermediate Shortness Verified 01/01/25 12:15 of breath aspirin Allergy Intermediate Shortness Verified 01/01/25 12:15 of breath diphenhydramine (From Allergy PT UNSURE Verified 01/01/25 12:15 Benadryl) OF REACTION Penicillins Allergy PT UNSURE Verified 01/01/25 12:15 OF REACTION Beef Containing Products AdvReac Other Verified 01/01/25 12:15 [place] And Derivatives AdvReac Other Verified 01/01/25 12:15 Food Allergies: Uncoded AdvReac Vomiting Verified 01/01/25 12:15 Surgical History History of appendectomy Status post right hemicolectomy Hx of cholecystectomy Social History Smoking Status: Never smoker alcohol intake: never Review of Systems (Anesthesia) ROS Narrative System reviewed and no additional complaints, except as documented.
--- NOTE | 2025-01-15 14:07 | PCM.HP.BLA ---
History and Physical Date of Admission: 01/15/25 Date of Service: 12/09/24 MR#: [id number] Acct: [id number] Name: AMADO QUEEN Rep #: [id number] : 1945 Provider: Dr. 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 Is patient in pain?: No Allergies Corticosteroids (Glucocorticoids) (steroids) Allergy (Severe, Verified 12/09/24 09:42) Shortness of breath acetaminophen (From Tylenol) Allergy (Intermediate, Verified 12/09/24 09:42) Shortness of breath aspirin Allergy (Intermediate, Verified 12/09/24 09:42) Shortness of breath diphenhydramine (From Benadryl) Allergy (Verified 12/09/24 09:42) PT UNSURE OF REACTION Penicillins Allergy (Verified 12/09/24 09:42) PT UNSURE OF REACTION Beef Containing Products Adverse Reaction (Verified 12/09/24 09:42) Other [place] And Derivatives Adverse Reaction (Verified 12/09/24 09:42) Other Food Allergies: Uncoded Adverse Reaction (Verified 12/09/24 09:42) Vomiting Medications ?Medication ?Instructions ?Recorded ?Confirmed ?Type glimepiride 2 mg tablet 2 mg PO DAILY diabetes 03/05/23 12/09/24 History levothyroxine 150 mcg tablet 150 mcg PO SUMOTU thyroid 03/05/23 12/09/24 History losartan 50 mg tablet 50 mg PO DAILY blood pressure 03/05/23 12/09/24 History metformin 500 mg tablet 500 mg PO BID diabetes 03/05/23 12/09/24 History levothyroxine 150 mcg capsule 225 mcg PO WETHFRSA thyroid 12/13/23 12/09/24 History ferrous sulfate 325 mg (65 mg 325 mg PO .COMPLEX 05/06/24 12/09/24 History iron) tablet (FeroSul) cholestyramine (with sugar) 4 gram 4 g PO HS 3 months #60 ea 11/04/24 12/09/24 Rx powder for susp in a packet Have you fallen in the past year?: No PFSH Medical History (Updated 12/09/24 @ 16:[address] Santosh Ballard MD) Pre-op testing Colon cancer Bilateral lower extremity edema Elevated CEA GI bleed Colitis Vision loss of right eye Vision loss of left eye Anemia Hypothyroidism Chronic pain Rheumatoid arthritis GERD (gastroesophageal reflux disease) Non-smoker Irregular heart beat Hypertension Migraines Seizures Diabetes mellitus Surgical History History of appendectomy Status post right hemicolectomy Hx of cholecystectomy Social History Smoking Status: Never smoker alcohol intake: never HPI HPI HPI: The patient is a 79-year-old female known to me for a history of right colon cancer status post open right hemicolectomy with vt February 2023. She additionally carries diagnoses of DMII, hypothyroidism, iron deficiency anemia, and ulcerative colitis and presents for evaluation of an abdominal wall hernia. A few weeks ago, the patient sustained an injury when her dog?s toenail punctured her t-shirt and umbilicus as she was lifting him off her shoulders. She felt something ?stretch and pop? at that time. Since then, she has experienced tenderness at the umbilicus with pain radiating to the right along her waist. She denies any palpable bulge. She reports frequent sensations of gas or air bubbles that ?pop? and sometimes cause pain. She was evaluated by Dr. Simeon a few weeks ago during a routine diabetes visit, who noted a possible abnormality on exam. She has a history of emergency colon surgery and a CT scan from October 2023 demonstrated small, fat-containing ventral hernias. She reports chronic diarrhea since a colonoscopy in October 2023, which identified ulcerative colitis with inflammatory polyps. She previously experienced both bright red and dark blood in her stool, but this has improved. She currently takes cholestyramine powder at night, which has helped reduce the frequency and severity of accidents. She has not been started on mesalamine or other IBD-specific therapy. She expresses reluctance to undergo repeat colonoscopy due to prior difficult experiences, including episodes where she felt she could not breathe and required the procedure to be stopped. She intentionally lost 120 pounds after surgery, though she attributes much of this to early satiety, being able to eat only 3 bites before feeling full. She has recently regained 8-10 pounds. She denies use of dietary supplements. She has a documented allergy to corticosteroids and avoids their use. She lives alone with her 35-40 lb dog and is concerned about her ability to avoid lifting during recovery. She is considering asking her sister, who lives in [place], to stay with her during the postoperative period. She has a band concert on January 04 that she does not want to miss. ROS General General: Yes weight change and colon cancer; No appetite, fatigue, breast cancer or weakness HEENT HEENT: No difficulty swallowing, eye injury, eye surgery, swollen glands or hoarseness Endo Endocrine: Yes diabetes mellitus; No thyroid disease, thyroid cancer, Hair loss, heat intolerance or cold intolerance Skin Skin: No rash or changing moles Breast Breast: No left breast lump, right breast lump, nipple discharge, breast pain, abnormal mammogram, abnormal US or breast enlargement Musc Musculoskeletal: Yes arthritis; No back problems, rheumatoid arthritis, gout or joint pain Cardio Cardiovascular: No murmur, pacemaker, heart disease, atrial fibrillation, high blood pressure, heart attack, heart stent, palpitations, shortness of breath with exertion or chest pain Psych Psychiatric: No depression, anxiety or hearing voices Resp Respiratory: No shortness of breath, No sleep apnea, No cough, No COPD, No asthma, No emphysema and No wheezing Gastro Gastrointestinal: Yes abdominal pain, No nausea or vomiting, Yes diarrhea, No constipation, No blood in stool, No acid reflux, No hemorrhoids, No ulcers, No gallbladder problem and Yes black,tarry stools [place] Hematologic: No blood thinners, No blood disorders, No bleeding, No anemia and Yes blood clots Additional Details: History of DVT'S Neuro Neurologic: No system reviewed and no additional complaints, except as documented, No as per HPI, No abnormal gait, No abnormal hearing, No abnormal movements, No abnormal speech, No behavioral changes, No burning sensations, No confusion, No convulsions, No disequilibrium, No dizziness, No localized weakness, No frequent falls, No headache(s), No lack of coordination, No loss of vision, No memory loss, No numbness, No other visual disturbances, No radicular pain, No restless legs, No sensory deficit, No syncope, No tingling, No tremor(s), No weakness and No other Exam Const General: cooperative and anxious Orientation: alert, awake and oriented x3 Resp Effort & Inspection: normal respiratory effort GI Other: Mildly overweight, well-healed laparotomy incision with subtly palpable hernia contents that are tender with palpation directly superior to the umbilicus. It is difficult to determine if these are reducible. Assessment and Plan Assessment and Plan (1) Incisional hernia of anterior abdominal wall without obstruction or gangrene: Status: Chronic Comment: - Chronic ventral hernia evident on CT imaging from October 2023; likely incisional in nature. Now symptomatic with pain. - Discussed surgical repair options, including minimally invasive robotic approach with mesh placement. - Reviewed risks and benefits of mesh repair, including potential for infection, adhesion, and small bowel obstruction. - Advised need for 5 weeks of no lifting >10 lbs postoperatively to allow mesh integration and minimize recurrence risk. - MRSA nasal swab ordered preoperatively; if positive, will initiate mupirocin ointment daily for 5 days and chlorhexidine body wash. - Patient to coordinate with family for postoperative support; tentatively targeting early January for surgery, pending confirmation of support. Plan: ? Robot-assisted ventral hernia repair with mesh targeting early January I have examined the patient and the H&P has been reviewed. There are no clinical changes since date of exam. She does state that her original plan was to return home without any immediate help (she cites notifying her next-door neighbor and her niece that she is undergoing surgery). I have told her I would strongly recommend we only proceed with sending her home if she has someone staying with her otherwise I would recommend postoperative observation and plan for discharge in the morning. Patient to make several phone calls to determine what her options look like. Consents were confirmed. Proceed to the operating room for robot-assisted ventral hernia repair with mesh.
[2025-01-15] MEDS: Lidocaine 1% (5 ml sdv) 5 ML Vial 8 ML IV (14:24)
[2025-01-15] MEDS: fentaNYL 100 MCG/2 ML Ampul 300 MCG IV (15:59)
[2025-01-15] MEDS: BUPIVACAINE LIPOSOME/PF 20 ML VIAL OPERA.SITE (18:09)
[2025-01-15] MEDS: 0.9% Normal Saline (Pres. free 10 ML Vial (18:09)
--- NOTE | 2025-01-15 18:15 | PCM.OPRPT ---
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 [employer] Supervisor: Mark Torres Tasks completed by dietary assistant: Opening and Other (Laparoscopic camera operation material insertion) Additional clinical trials assistant?: Yes Additional Ex Assistant/Program Director #2: Barbara Owusu Tasks completed by clinical trials assistant #2: Closing and Other (Laparoscopic camera operation and material insertion:) Type of Anesthesia: General/Supplemental RN Documented Start/Stop Times: Operation Date: 01/15/25 11:45 Case Time Into Pre-Op 01/15/25 10:15 Out of Pre-Op 01/15/25 14:12 Anesthesia Start 01/15/25 14:18 Into Room 01/15/25 14:18 Procedure Start 01/15/25 14:50 Procedure End 01/15/25 18:23 Anesthesia End 01/15/25 19:15 Out of Room 01/15/25 19:15 Into Recovery 01/15/25 19:18 Out of Recovery 01/15/25 20:43 Procedure Start Time: 14:50 Procedure Stop Time: 18:23 Select all DRAINS/GRAFTS/IMPLANTS that apply: Implanted device (Ventralight ST hernia mesh 15 x 20 cm) Implanted device details: Reference [id number], Lot [id number] Estimated Blood Loss: 40 Specimen collected: No Description of surgery: After appropriate identification in the preoperative holding area, the patient was brought to the operating room suite where she was positioned supine the operating table. Preoperative antibiotics were administered. Patient was then induced with a general anesthetic. She was positioned with a bump under the left side and the table was broken at the level of the ASIS. Patient's abdomen was prepped and draped in the usual sterile fashion. A formal timeout followed to confirm patient and procedure. Procedure was begun with a Veress entry at Collins's point. Once the set point pressure was reached, this Veress needle was exchanged for an optical trocar and an optical entry was made in this location. Laparoscopic investigation revealed no inadvertent injury to the viscera below but the view was extremely limited on account of numerous adhesions within the peritoneal cavity. I was unable to see inferiorly to even consider placement of additional ports along the sidewall. Therefore I opted to place a 5 mm standard laparoscopic port through the right upper quadrant to see if this would afford a better advantage through which to inspect the peritoneal cavity. Entering this location was uneventful and I was able to see the entirety of the peritoneal cavity which was characterized at that point by numerous adhesions of primarily small bowel to the anterior abdominal wall via both thin and denser adhesions. To accomplish the takedown of adhesions, a second 5 mm port was placed inferior to the first 5 mm port. Then a period of adhesiolysis followed using laparoscopic judy and I was able to visualize our index port placement in the left upper quadrant and confirmed that there had been no inadvertent injury from its placement. I was also able to place my remaining 2 robotic ports along the left lower sidewall after instillation of local anesthetic. However as the anterior abdominal wall was more closely inspected I could now visualize in an unexpectedly large epigastric defect which appeared to represent complete fascial dehiscence of patient's prior laparotomy incision above her umbilicus. On noting this I proceeded to open patient's prior laparotomy scar from the umbilicus superiorly. I carefully entered the peritoneal cavity and began the process of freeing the hernia sac from the fascia and clearly defining the fascial edges. Hemostasis was maintained along the way but there was also a general ooze noted over the omentum. I attempted to palpate inferiorly to try to determine if there was further fascial disruption in that location but could only feel subcutaneous tissue. I decided to close the fascia in an open fashion using #1 PDS suture in a running bidirectional technique but just prior to doing so inserted a 15 x 20 cm Ventralight mesh with a 3-0 V-Loc placed at the center of the mesh and oriented the mesh for later approximation against the abdominal wall. After the fascia was closed, a laparoscopic investigation of the peritoneal cavity was performed and it appeared, initially, feasible to place the mesh against the abdominal wall robotically. Prior to docking the robot, a transversus abdominis plane block was created with total volume 60 mL of bupivacaine mixed with Exparel and saline under laparoscopic guidance. The robot was then brought in and docked in standard fashion. Robotically patient's hernia closure was inspected superiorly, but I could now more inferiorly also identify a second large infraumbilical defect. I used the robot to take down some of the fat adherent to the peritoneal lining and was able to identify the fascial edges of a 7 cm long by 5 cm wide defect. There is latter hernia defect was closed with a 12 inch #1 stratafix suture by running the fascial defect closed and then running the suture back upon itself. Next the 20 x [address] mesh was introduced into the peritoneum and a 3-0 V-Loc suture was used to chandelier the mesh. However, the large size of the mesh prevented clear visualization even when I used a spear needle to pin another location. I had my clinical trials assistant attempt to use a laparoscopic grasper to hold up on the mesh as I tacked it in several locations with Vicryl suture. Unfortunately became clear that the mesh was ultimately going to reside in too close of proximity to my robotic ports and would therefore not be amenable to robotic suturing. Yet I did observe at same point that my previously placed 5 mm ports would make a traditional laparoscopic approach to mesh fixation feasible. On recognizing this fact I rescrubbed and undocked the robot. I then used traditional laparoscopy with several secure strap tackers to approximate the mesh to the underside of the abdominal wall. This produced a nice flat lie of the mesh. Satisfied with this result the needles were removed from the peritoneum under laparoscopic visualization and pneumoperitoneum was released. The robot was then undocked and the trocars were removed. Additional local anesthetic was instilled and the port sites were closed with interrupted 4-0 Monocryl in subcuticular fashion patient's partially reopen laparotomy incision was closed with interrupted 2-0 Vicryl followed by running 4-0 Monocryl in a subcuticular fashion. Steri-Strips and OpSite dressings were applied to the port sites while a silver dressing was applied to the supraumbilical laparotomy. Patient was transferred to PACU for ongoing care. Surgical Findings: ? Total instillation of 60 mL of tap solution ? Dense adhesions throughout the peritoneal cavity with adhesiolysis ? Large (7 cm wide by 8 cm long) supraumbilical defect leading to opening of laparotomy scar in supraumbilical position and opening of hernia sac to define fascia ? Large (5 cm wide by 7 cm long) infraumbilical defect closed with 12 inch #1 strata fix suture ? Inability to fully tacked the ipsilateral side of the mesh given proximity to port placement, however, prior placement of 5 mm contralateral ports that there is feasibility with laparoscopic approach so resorted to secure strap tacking of mesh with nice flat lie overlying the defect Complications Complications: No Admit VTE Documentation VTE Mechan Device Prophylaxis: SCD's
--- NOTE | 2025-01-15 19:20 | PCM.POST.ANE ---
Anesthesia: Postop Eval I Current Vital Signs Temperature: 97.4 F Pulse Rate: 88 Blood Pressure: 146/74 Respiratory Rate: 16 Pulse Ox: 97 (at 19:40) Oxygen Delivery Method: Simple Mask Assessment Airway patent: Yes Spontaneous unlabored respirations: Yes Mental status: Awake nausea: No Vomiting: No Anesthesia Complication: No Fluid Hydration Crystalloid volume administer (ml): 1,600 Total IV fluid infused: 1,600 Progress Note Anesthesia document: Postop Eval 1 completed: Yes
--- OUTSIDE RECORDS SUMMARY | 2025-01-15 20:00 | XMS RPT_ITS | CCD ---
Author Organization [facility] Care Team Providers Care Senior Ruby Developer Name Role Phone TIFFANY RONQUILLO Admitting Unavailable TIFFANY RONQUILLO Attending Unavailable Jeff Simeon DO Primary Care Provider Jeff Simeon DO Primary Care Provider Jeff Simeon DO Primary Care Provider Jeff Simeon DO Primary Care Provider JESSEE HOLLOWAY Admitting Unavailable JESSEE HOLLOWAY Attending Unavailable JEFF SIMEON Primary Care Unavailable Dr. Jeff Simeon Primary Care Provider Dr. Stas Arredondo Emergency Provider Dr. Santosh Ballard Attending Provider Dr. Santosh Ballard Admit Provider Dr. Santosh Ballard Other Provider Dr. Nohelia Lazar Other Provider Dr. King Carroll Other Provider Dr. Rafia Rousseau Other Provider Dr. Rafia Marrouqin Other Provider Dr. Emma Dubois Other Provider Unavailable Dr. Marisel Castellon Other Provider Dr. Sheri Rooney Other Provider Dr. Venu Erazo Other Provider UnavailDr. Venu Meyer Other Provider Unavailable MD Felipe Walters Other Provider Dr. Stas Shelley Other Provider Dr. Mraily Guajardo Other Provider Dr. Maco Richardson Other Provider Dr. Joey Myers Other Provider Dr. Petros Espinoza Other Provider Dr. Barbara Man Other Provider Dr. Leno Sun Other Provider Dr. Zuri Peterson Other Provider Dr. Francois Putnam Other Provider Dr. Canelo Fletcher Other Provider Dr. Mary Cotter Other Provider Dr. Casey Gupta Other Provider 1([facility])[phone] Shane GRAIN DRIER OPERATOR, GRAIN DRIER OPERATOR-C Ruth Ann Other Provider Ramses Gavin Other Provider Unavailable Dr. Jameson Snell Other Provider 1([facility])[phone] Santosh Ballard Referring Provider Dr. Jameson Snell Attending Provider Luther REDDY, PA-C Nguyen Attending Provider Dr. Richard Mckenzie Attending Provider Precious JONES, Tiffany Unavailable Unavailable Dr. Jeff Simeon Referring Provider Dr. Maco Singh Attending Provider Dr. Jeff Simeon Primary Care Provider Dr. Stas Arredondo Emergency Provider Dr. Santosh Ballard Attending Provider Dr. Santosh Ballard Admit Provider Dr. Santosh Ballard Other Provider Dr. Nohleia Lazar Other Provider Dr. King Carroll Other Provider 1([facility])[phone] Dr. Rafia Rousseau Other Provider Dr. Rafia Marroquin Other Provider Dr. Emma Dubois Other Provider Unavailable Dr. Marisel Castellon Other Provider Dr. Sheri Rooney Other Provider Dr. Venu Erazo Other Provider Unavailabl Dr. Venu Rivera Other Provider Unavailable MD Felipe Walters Other Provider Dr. Stas Shelley Other Provider Dr. Marily Guajardo Other Provider Dr. Maco Richardson Other Provider Dr. Joey Myers Other Provider Dr. Petros Espinoza Other Provider Dr. Barbara Man Other Provider Dr. Leno Sun Other Provider Dr. Zuri Peterson Other Provider Dr. Francois Putnam Other Provider Dr. Canelo Fletcher Other Provider Dr. Mary Cotter Other Provider Dr. Casey Gupta Other Provider Shane GRAIN DRIER OPERATOR, GRAIN DRIER OPERATOR-C Ruth Ann Other Provider Ramses Gavin Other Provider Unavailable Dr. Jameson Snell Other Provider Dr. Santosh Ballard Referring Provider Dr. Jameson Snell Attending Provider Luther REDDY, PA-C Nguyen Attending Provider Dr. Richard Mckenzie Attending Provider Dr. Jeff Simeon Referring Provider Dr. Maco Singh Attending Provider Jeff Simeon DO Primary Care Provider Alber CATCHER HELPER.ELECTRICAL ENGINEERING DIRECTOR, Jahaira Palma Unavailable Crissy CATCHER HELPER.ELECTRICAL ENGINEERING DIRECTOR, Karson Unavailable Blanco BERGER, Dr. Aguilar Primary Care Provider [phone] Adriana Brito Attending Provider Adriana Brito Referring Provider Blanco BERGER, Dr. Aguilar Referring Provider Samantha KEYES, Dr. Dewey Attending Provider Samantha KEYES, Dr. Dewey Referring Provider Bonilla BERGER, Dr. Vieyra Attending Provider Jon CATCHER HELPER.ELECTRICAL ENGINEERING DIRECTOR, Jennyfer Major Unavailable Blanco BERGER, Dr. Aguilar Primary Care Provider Samantha KEYES, Dr. Dewey Attending Provider Samantha KEYES, Dr. Dewey Referring Provider Blanco BERGER, Dr. Aguilar Referring Provider Blanco BERGER, Dr. Aguilar Primary Care Physician Samantha KEYES, Dr. Dewey Attending Physician Bonilla BERGER, Dr. Vieyra Attending Physician [phone] Maco Singh Attending Unavailable Simeon, Jeff Primary Care Unavailable Simeon, Jeff Primary Care Unavailable Maco Singh Attending Unavailable Simeon, Jeff Primary Care Unavailable Santosh Ballard Attending Unavailable Santosh Ballard Referring Unavailable Simeon, Jeff Primary Care Unavailable Adriana Olmedo Attending Unavailable Adriana Olmedo Referring Unavailable Simeon, Jeff Primary Care Unavailable Simeon, Jeff Attending Unavailable Simeon, Jeff Referring Unavailable Simeon, Jeff Primary Care Unavailable Santosh Ballard Attending Unavailable Maco Singh Attending Unavailable Maco Singh Referring Unavailable Simeon, Jeff Primary Care Unavailable Simeon, Jeff Primary Care Unavailable Jarrell Crystal Attending Unavailable Simeon, Jeff Referring Unavailable Simeon, Jeff Primary Care Unavailable Santosh Ballard Attending Unavailable Simeon, Jeff Referring Unavailable Maco Singh Attending Unavailable Simeon, Jeff Primary Care Unavailable Simeon, Jeff Referring Unavailable Maco Singh Attending Unavailable Simeon, Jeff Primary Care Unavailable Simeon, Jeff Referring Unavailable Simeon, Jeff Primary Care Unavailable Jarrell Crystal Attending Unavailable Simeon, Jeff Referring Unavailable Simeon, Jeff Primary Care Unavailable Maco Singh Attending Unavailable Simeon, Jeff Referring Unavailable SIMEON, JEFF L Attending Unavailable SIMEON, JEFF L Primary Care Unavailable FARRUKH DYE Attending Unavailable SIMEON, JEFF L Primary Care Unavailable SIMEON, JEFF L Primary Care Unavailable CRISSY, KARSON Referring Unavailable SIMEON, JEFF L Primary Care Unavailable CRISSY, KARSON Attending Unavailable SIMEON, JEFF L Primary Care Unavailable SIMEON, JEFF L Attending Unavailable SIMEON, JEFF L Primary Care Unavailable SIMEON, JEFF L Referring Unavailable ISMEON, JEFF L Primary Care Unavailable SIMEON, JEFF L Referring Unavailable SIMEON, JEFF L Primary Care Unavailable SIMEON, JEFF L Referring Unavailable SIMEON, JEFF L Primary Care Unavailable Allergies Allergy Classification Reported Allergen(s) Allergy Type Date of Onset Reaction(s) Facility diphenhydrAMINE (2 sources) diphenhydrAMINE Drug Allergy 05-17-19 16 Swelling [facility] Penicillins (antibiotic) (2 sources) Penicillins Drug Allergy 05-17-19 16 Shortness of Breath [facility] (20 sources) diphenhydrAMINE; Translations: [DIPHENHYDRAMINE HCL] Drug Allergy 05-17-19 16 Swelling [facility] (20 sources) Hmg-Coa Reductase Inhibitors (Statins); Translations: [[id number] REDUCTASE INHIBITORS] Propensity to adverse reactions to drug (disorder) 09-28-19 16 Contraindicati on-Medical Surgical [facility] (20 sources) Penicillins; Translations: [PENICILLINS] Propensity to adverse reactions to drug (disorder) 05-17-19 16 Shortness of Breath [facility] (9 sources) diphenhydrAMINE Drug Allergy 12-22-19 21 PT UNSURE OF REACTION [facility] (7 sources) [place] fruit; Translations: [CITRUS AND DERIVATIVES] Propensity to adverse reactions 03-07-19 Other [facility] Comment on above: PT STATES EFFECTS LI JOHN (7 sources) Beef Containing Products; Translations: [BEEF CONTAINING PRODUCTS] Propensity to adverse reactions 03-07-19 Other [facility] Comment on above: PT STATES SHUTS DOWN ORGANS; red meat (7 sources) Food Allergies: Uncoded; Translations: [Food Allergies: Uncoded] Propensity to adverse reactions 03-07-19 Vomiting [facility] Comment on above: VINEGAR (4 sources) Acetaminophen; Translations: [ACETAMINOPHEN] Drug Allergy 10-16-19 Shortness of breath [facility] (4 sources) Aspirin; Translations: [ASPIRIN] Drug Allergy 10-16-19 Shortness of breath [facility] (4 sources) Glucocorticoid Receptor Agonists; Translations: [CORTICOSTEROIDS (GLUCOCORTICOIDS)] Allergy to substance 10-16-19 Shortness of breath [facility] (1 source) Acetaminophen Drug Allergy 12-10-19 [facility] (1 source) Aspirin Drug Allergy 12-10-19 [facility] (1 source) Corticosteroids Drug allergy (disorder) 12-10-19 [facility] (1 source) diphenhydrAMINE Drug Allergy 12-10-19 [facility] (1 source) Beef Containing Products Drug allergy (disorder) 12-10-19 [facility] (1 source) [place]field And Derivatives Drug allergy (disorder) 12-10-19 [facility] Medications Current Medications Medication Drug Class(es) Dates Sig (Normalized) Sig (Original) Blood-Glucose Meter monitoring kit (20 sources) Start: 04-13-2017 Blood-Glucose Meter monitoring kit Indications: Controlled type 2 diabetes mellitus without complication, without long-term current use of insulin (HCC) Glucose Meter of Choice - Kit - Dx: Type 2 DM - Controlled E11.9 1 Each 04/13/2017 Active Start: 04-13-2017 Blood-Glucose Meter monitoring kit Indications: Controlled type 2 diabetes mellitus without complication, without long-term current use of insulin (HCC) Glucose Meter of Choice - Kit - Dx: Type 2 DM - Controlled E11.9 1 Each 0 04/13/2017 Active Comment on above: Glucose Meter of Cho ice - Kit - Dx: Type 2 DM - Controlled E11.9 cholestyramine resin 4000 mg powder for oral suspension (8 sources) Bile Acid Sequestrant Start: 11-05-19 take 1 dose by mouth once Cholestyramine (With Sugar) 4 gram powder in packet Active 4 g PO BEDTIME 60 90 3 November 04, 2024 11:42am no meds 1 hr before/4-6 hr after dose Complies with drug therapy Start: 05-06-2024 End: 10-23-2024 take 1 dose by mouth once Cholestyramine (With Sugar) 4 gram powder in packet Discontinued 4 g PO BEDTIME 60 0 September 04, 2024 11:08am October 23, 2024 2:10pm no meds 1 hr before/4-6 hr after dose ferrous sulfate 325 mg oral tablet (20 sources) Start: 05-06-2024 take 1 tablet by mouth two times weekly Ferrous Sulfate (Ferosul) 325 mg (65 mg iron) tablet Active 325 mg PO .COMPLEX May 06, 2024 12:00am 325 mg orally twice a week; Complies with drug therapy Start: 10-24-2023 take 1 tablet by porsche th every other day ferrous sulfate 325 mg (65 mg iron) tablet Take 1 tablet by mouth every other day. 10/24/2023 Active Start: 10-18-2023 End: 11-19-2023 take 1 tablet by mouth every other day Ferrous Sulfate 324 mg (65 mg iron) tablet,delayed release (DR/EC) Discontinued 324 mg PO EVERY OTHER DAY 30 3 October 18, 2023 12:00am November 19, 2023 11:37am End: 10-24-2023 take 1 tablet by mouth twice daily ferrous sulfate 325 mg (65 mg iron) tablet Take 325 mg by mouth twice daily. 10/24/2023 Discontinued (Adjust Sig - Block E-Cancel) take 1 tablet by porsche th once daily ferrous sulfate 325 mg (65 mg iron) tablet Take 325 mg by mouth once daily. 0 Active Comment on above: Take 325 mg by mouth once daily. Take 325 mg by mouth twice daily. glimepiride 2 mg oral tablet (20 sources) Sulfonylurea Start: 3 End: take 1 tablet by mouth once daily Glimepiride 2 mg tablet Active 2 mg PO DAILY March 05, 2023 1:00am diabetes Complies with drug therapy Start: 11-15-2021 End: 11-15-2021 take 1 tablet by mouth once daily at breakfast glimepiride (AMARYL) 2 mg tablet Indications: Uncontrolled type 2 diabetes mellitus with hyperglycemia (HCC) Take 1 tablet by mouth daily with breakfast. 90 tablet 3 11/15/2021 Active Comment on above: Take 1 tablet by porsche th daily with breakfast. levothyroxine sodium 0.15 mg oral capsule (20 sources) l-Thyroxine Start: 12-13-2023 Levothyroxine 150 mcg capsule Active 225 ug PO WETHFRSA December 13, 2023 12:00am thyroid Complies with drug therapy Start: 03-05-2023 End: 2024 Levothyroxine 150 mcg tablet Active 150 ug PO SUMOTU March 05, 2023 1:00am thyroid Complies with drug therapy Start: 09-05-2022 End: 11-20-2023 take 1 tablet by mouth once daily for thyroid dysfunction levothyroxine (LEVOXYL) 150 mcg tablet Take 1 tablet by mouth once daily. Take on empty stomach. For Thyroid. 90 tablet 3 11/13/2023 11/20/2023 Discontinued Start: 08-25-2020 End: 08-24-2021 take 1 tablet by mouth once daily for thyroid dysfunction levothyroxine (LEVOXYL) 150 mcg tablet Take 1 tablet by mouth once daily. Take on empty stomach. For Thyroid. 90 tablet 3 08/24/2021 Active Comment on above: Take 1 tablet by porsche th once daily. Take on empty stomach. For Thyroid. losartan potassium 50 mg oral tablet (20 sources) Angiotensin 2 Receptor Jose J Start: 09-05-2022 End: 07-11-2024 take 1 tablet by mouth once daily Losartan 50 mg tablet Active 50 mg PO DAILY March 05, 2023 1:00am blood pressure Complies with drug therapy Start: 08-25-2020 End: 08-24-2021 take 1 tablet by mouth once daily losartan (COZAAR) 50 mg tablet Take 1 tablet by mouth once daily. 90 tablet 3 08/24/2021 Active Comment on above: Take 1 tablet by porsche th once daily. metFORMIN hydrochloride 500 mg oral tablet (20 sources) Biguanide Start: 03-05-2023 End: 11-14-2024 take 1 tablet by mouth twice daily Metformin 500 mg tablet Active 500 mg PO TWICE A DAY March 05, 2023 1:00am diabetes Complies with drug therapy Start: 03-05-2023 take 1000 mg by mout h twice daily Metformin Active 1000 MG PO TWICE A DAY March 05, 2023 1:00am Start: 01-22-2023 End: 01-17-2024 take 2 tablets by mouth twice daily at mealtime metFORMIN (GLUCOPHAGE) 500 mg tablet Indications: Controlled type 2 diabetes mellitus without complication, without long-term current use of insulin (HCC) Take 2 tablets by mouth two times a day with meals. 360 tablet 3 01/22/2023 11/20/2023 Discontinued Start: 05-24-2022 End: 12-08-2022 take 1 tablet by mouth twice daily at mealtime metFORMIN (GLUCOPHAGE) 500 mg tablet Indications: Controlled type 2 diabetes mellitus without complication, without long-term current use of insulin (HCC) Take 1 tablet by mouth two times a day with meals. Take 1000 mg PO with breakfast and 1000 mg PO with supper 0 12/08/2022 Active Start: 08-24-2021 End: 05-24-2022 metFORMIN (GLUCOPHAGE) 500 m g tablet Take 1000 mg PO with breakfast and 1500 mg PO with supper 450 tablet 1 02/20/2022 05/24/2022 Discontinued Start: 08-25-2020 End: 02-22-2021 metFORMIN (GLUCOPHAGE) 500 m g tablet Take 1000 mg PO with breakfast and 1500 mg PO with supper 450 tablet 1 02/22/2021 Active Comment on above: Take 1000 mg PO with breakfast and 1500 mg PO with supper Take 1 tablet by porsche th twice daily with meals. Take 1000 mg PO with breakfast and 1500 mg PO with supper Take 1 tablet by porsche th two times a day with meals. Take 1000 mg PO with breakfast and 1000 mg PO with supper Take 2 tablets by mo uth two times a day with meals. vitamin b12 1 mg/ml injectable solution (20 sources) Vitamin B12 Start: 09-18-2023 End: 12-10-2023 cyanocobalamin 1,000 mcg injection Start: 09-18-2023 End: 12-10-2023 1,000 mcg, INTRAMUSCULAR, EV ZURI 2 WEEKS, 6 doses, First dose on Sun09/18/23 at 0000, Last dose on Sun11/27/23 at 0000 Start: 05-30-2021 End: 09-04-2023 cyanocobalamin 1,000 mcg inj ection Completed/Discontinued Medications Medication Drug Class(es) Dates Sig (Normalized) Sig (Original) apixaban 5 mg oral tablet (3 sources) Factor Xa Inhibitor Start: 11-21-2023 End: 05-06-2024 take 1 tablet by mouth once Apixaban (Eliquis Dvt-Pe Treat 30d Start) 5 mg (74 tabs) tablets,dose pack Discontinued 0 PO per package directions 74 0 November 21, 2023 12:00am May 06, 2024 11:01am Deep vein thrombosis (DVT) of left lower extremity Acute embolism and thrombosis of unspecified deep veins of left lower extremity On Hold: MD Ordered PO PER PKG DIR ascorbic acid 500 mg oral tablet (8 sources) Vitamin C Start: 10-18-2023 End: 10-24-2023 take 1 tablet by mouth every twelve hours ascorbic acid, vitamin C, (VITAMIN C) 500 mg tablet Take 1 tablet by mouth every 12 hours. 10/18/2023 10/24/2023 Discontinued Start: 10-18-2023 End: 10-24-2023 take 1 tablet by mouth once daily ascorbic acid, vitamin C, (VITAMIN C) 500 mg tablet Take 500 mg by mouth once daily. 10/18/2023 10/24/2023 Discontinued Start: 10-18-2023 End: 11-19-2023 take 1 tablet by mouth twice daily Ascorbic Acid (Vitamin C) 500 mg tablet Discontinued 500 mg PO TWICE A DAY 60 2 October 18, 2023 12:00am November 19, 2023 11:37am End: 02-14-2024 take 1 tablet by mouth twice daily ascorbic acid, vitamin C, 500 mg cap Take 1 tablet by mouth two times a day. 02/14/2024 Discontinued aspirin 81 mg oral tablet (20 sources) Platelet Aggregation Inhibitor, Nonsteroidal Anti-inflammatory Drug Start: 03-05-2023 End: 05-06-2024 take 1 capsule by mouth once daily Aspirin 81 mg capsule Discontinued 81 mg PO DAILY March 05, 2023 1:00am May 06, 2024 11:01am HEART On Hold: Hold for 1 week. End: 02-14-2024 take 1 tablet by mouth once daily aspirin, enteric coated (ASPIRIN, ENTERIC COATED) 81 mg EC tablet Take 81 mg by mouth once daily. 02/14/2024 Discontinued Comment on above: Take 81 mg by mouth once daily. chlorhexidine gluconate 1.2 mg/ml mouthwash (8 sources) End: 08-25-19 Chlorhexidine Gluconate (PERIDEX) 0.12 % solution Use 15 mL as instructed twice daily. 08/24/2021 Discontinued Comment on above: Use 15 mL as instruc natanael twice daily. ciprofloxacin 500 mg oral tablet (19 sources) Quinolone Antimicrobial Start: 10-18-19 End: 02-13-19 take 1 tablet by mouth twice daily Ciprofloxacin Hcl (Cipro) 500 mg tablet Discontinued 500 mg PO TWICE A DAY 14 7 0 October 18, 2023 12:00am November 19, 2023 11:36am Start: 03-11-2023 End: 03-21-2023 take 1 tablet by mouth twice daily Ciprofloxacin Hcl (Cipro) 500 mg tablet Discontinued 500 mg PO TWICE A DAY 14 0 March 11, 2023 1:00am March 21, 2023 11:34am famotidine 20 mg oral tablet (20 sources) Histamine-2 Receptor Antagonist Start: 10-16-2023 End: 05-06-2024 take 1 tablet by mouth once daily Famotidine (Acid Controller) 20 mg tablet Discontinued 20 mg PO DAILY October 16, 2023 12:00am May 06, 2024 11:01am On Hold: Hold for 3 months while she is taking pantoprazole. Start: 03-05-2023 End: 10-24-2023 take 1 tablet by mouth twice daily famotidine (PEPCID) 40 mg tablet Take 40 mg by mouth two times a day. 03/05/2023 10/24/2023 Discontinued Start: 03-05-2023 End: 10-16-2023 famotidine Discontinued 1 {t bl} PO DAILY March 05, 2023 1:00am October 16, 2023 4:20pm INDIGESTION Start: 03-05-2023 End: 10-16-2023 famotidine Discontinued 1 {t bl} PO DAILY March 05, 2023 1:00am October 16, 2023 4:20pm Start: 03-05-2023 take 1 tablet by porsche th once daily famotidine Active 1 TABLET PO DAILY March 05, 2023 1:00am Start: 03-05-2023 take 1 tablet by porsche th once daily famotidine Active 1 TABLET PO DAILY March 05, 2023 12:00am Start: 03-05-2023 famotidine Act anisha PO March 05, 2023 12:00am End: 10-24-2023 take 10 mg by mouth once daily famotidine (PEPCID ORAL ) Take 10 mg by mouth once daily. 10/24/2023 Discontinued Comment on above: Take 10 mg by mouth once daily. fexofenadine hydrochloride 180 mg oral tablet (20 sources) Histamine-1 Receptor Antagonist Start: End: take 1 tablet by mouth at bedtime Fexofenadine 180 mg tablet Discontinued 180 mg PO AT BEDTIME October 16, 2023 12:00am November 19, 2023 11:37am allergies Start: 03-05-2023 End: 10-16-2023 fexofenadine Discontinued 1 {tbl} PO DAILY March 05, 2023 1:00am October 16, 2023 4:20pm ALLERGIES Start: 03-05-2023 End: 10-16-2023 fexofenadine Discontinued 1 {tbl} PO DAILY March 05, 2023 1:00am October 16, 2023 4:20pm Start: 03-05-2023 take 1 tablet by porsche th once daily fexofenadine Active 1 TABLET PO DAILY March 05, 2023 1:00am Start: 03-05-2023 take 1 tablet by porsche th once daily fexofenadine Active 1 TABLET PO DAILY March 05, 2023 12:00am Start: 03-05-2023 fexofenadine A ctive .ROUTE March 05, 2023 12:00am Comment on above: Take 180 mg by mouth once daily. furosemide 40 mg oral tablet (11 sources) Loop Diuretic Start: 10-24-19 End: 02-13-19 take 1 tablet by mouth once daily furosemide (LASIX) 40 mg tablet Indications: Bilateral lower extremity edema Take 1 tablet by mouth once daily for 10 days. 10 tablet 11/05/2023 02/14/2024 Discontinued metroNIDAZOLE 500 mg oral tablet (19 sources) Nitroimidazole Antimicrobial Start: 10-18-19 End: 02-13-19 take 1 tablet by mouth three times daily metroNIDAZOLE (FLAGYL) 500 mg tablet Take 500 mg by mouth three times a day. 10/18/2023 02/14/2024 Discontinued Start: 10-18-2023 End: 11-19-2023 take 1 tablet by mouth every eight hours Metronidazole 500 mg tablet Discontinued 500 mg PO Q8H 21 7 0 October 18, 2023 12:00am November 19, 2023 11:36am Start: 03-11-2023 End: 10-16-2023 take 1 tablet by mouth every eight hours Metronidazole 500 mg tablet Discontinued 500 mg PO Q8H 21 7 0 March 11, 2023 1:00am October 16, 2023 4:22pm ondansetron 4 mg disintegrating oral tablet (20 sources) Serotonin-3 Receptor Antagonist Start: 03-19-2023 End: 02-14-2024 take 1 tablet by mouth every six hours as needed for nausea and nausea ondansetron orally disintegrating (ZOFRAN ODT) 4 mg disintegrating tablet Indications: Nausea Take 1 tablet by mouth every 6 hours as needed for nausea/vomiting. 20 tablet 1 03/19/2023 02/14/2024 Discontinued Start: 12-21-2020 End: 10-16-2023 take 1 tablet by mouth every eight hours as needed for nausea Ondansetron 4 mg tablet,disintegrating Discontinued 4 mg PO EVERY 8 HOURS NEEDED as needed for Nausea 20 0 December 21, 2020 1:00am October 16, 2023 4:23pm Comment on above: Take 1 tablet by porsche th every 6 hours as needed for nausea/vomiting. oxyCODONE hydrochloride 5 mg oral tablet (8 sources) Opioid Agonist Start: 03-11-19 End: 10-16-19 take 1 tablet by mouth every six hours as needed for pain Oxycodone 5 mg Tablet Discontinued 5 mg PO EVERY 6 HOURS NEEDED as needed for Pain Score 6-10 10 5 0 March 11, 2023 October 16, 2023 4:23pm Retrocecal abscess Peritoneal abscess Start: 04-05-2022 End: 04-21-2022 take 1 tablet by mouth every eight hours as needed for pain oxyCODONE IR (ROXICODONE) 5 mg immediate release tablet Indications: Calculus of gallbladder with biliary obstruction but without cholecystitis Take 1 tablet by mouth every 8 hours as needed for pain. 6 tablet 0 04/05/2022 04/21/2022 Discontinued Comment on above: Take 1 tablet by porsche th every 8 hours as needed for pain. pantoprazole 40 mg delayed release oral tablet (16 sources) Proton Pump Inhibitor Start: 4 End: 5 take 1 tablet by mouth twice daily Pantoprazole 40 mg tablet,delayed release (DR/EC) Discontinued 40 mg PO TWICE A DAY December 13, 2023 12:00am January 22, 2024 1:50pm SUMAtriptan 100 mg oral tablet (8 sources) Serotonin-1b and Serotonin-1d Receptor Agonist End: 2 SUMAtriptan (IMITREX) 100 mg tablet Take 100 mg by mouth as needed. 08/24/2021 Discontinued Comment on above: Take 100 mg by mouth as needed. Problems Active Problems Problem Classification Problem Date Documented Da te Episodic/Chronic Abdominal pain (20 sources) Right upper quadrant pain; Translations: [Right upper quadrant pain] Onset: 04-05-2022 Episodic Comment on above: CT on 10/10/2023 show s diffuse colitis. Cancer of colon (20 sources) Malignant tumor of ascending colon; Translations: [Malignant neoplasm of ascending colon] Onset: 11-21-2024 04-13-2023 Chronic Comment on above: S/P R hemicolectomy. Increased CEA 19 on 09/24/2023.CT a/p on 10/10/2023 shows diffuse Colitis.CT chest on 12/03/2023 showed R lung nodule which is old. ctDNA on 11/19/2023 was 0. CEA is decreasing.No evidence of disease clinically. S/P R hemicolectomy. Increased CEA 19 on 09/24/2023.CT a/p on 10/10/2023 shows diffuse Colitis.CT chest on 12/03/2023 showed R lung nodule which is old. ctDNA on 11/19/2023 was 0. CEA is decreasing, 4.9 on 10/16/2024.No evidence of disease clinically. Cancer of colon (4 sources) History of malignant neoplasm of colon; Translations: [Personal history of other malignant neoplasm of large intestine] Onset: 10-23-2024 10-16-2023 Episodic Deficiency and other anemia (8 sources) Nutritional anemia; Translations: [Other vitamin B12 deficiency anemias] Episodic Deficiency and other anemia (4 sources) Iron deficiency anemia; Translations: [Other iron deficiency anemias] Episodic Deficiency and other anemia (20 sources) Anemia; Translations: [Anemia, unspecified] Onset: 05-31-2021 05-31-2021 Episodic Comment on above: Hgb and Iron profile are normal today. Deficiency and other anemia (1 source) Pernicious anemia; Translations: [Vitamin B12 deficiency anemia due to intrinsic factor deficiency] 05-29-2024 Episodic Deficiency and other anemia (2 sources) Iron deficiency anemia, unspecified; Translations: [Iron deficiency anemia, unspecified] Onset: 10-23-2024 Episodic Deficiency and other anemia (2 sources) Anemia, unspecified; Translations: [Anemia, unspecified] Onset: 01-25-2024 Episodic Deficiency and other anemia (1 source) Deficiency and other anemia Diabetes mellitus with complications (20 sources) Type II diabetes mellitus uncontrolled; Translations: [Type 2 diabetes mellitus with hyperglycemia] Onset: 11-15-2021 Chronic Diabetes mellitus without complication (20 sources) Type 2 diabetes mellitus without complication; Translations: [Type 2 diabetes mellitus without complications] Onset: 05-17-2015 Resolved: 03-02-2023 01-21-2018 Chronic Disorders of lipid metabolism (20 sources) Hypertriglyceridemia; Translations: [Pure hyperglyceridemia] Onset: 04-13-2017 04-13-2017 Chronic Essential hypertension (20 sources) Essential hypertension; Translations: [Essential (primary) hypertension] Onset: 05-17-2015 05-17-2015 Chronic Nausea and vomiting (1 source) Nausea; Translations: [Nausea] 03-21-2023 Episodic Noninfectious gastroenteritis (4 sources) Colitis; Translations: [Noninfective gastroenteritis and colitis, unspecified] 10-24-2023 Episodic Nutritional deficiencies (20 sources) Vitamin D deficiency; Translations: [Vitamin D deficiency, unspecified] Onset: 02-19-2019 02-19-2019 Chronic Other aftercare (1 source) Surgical follow-up; Translations: [Encounter for other specified surgical aftercare] Episodic Other and unspecified benign neoplasm (1 source) Personal history of colonic polyps; Translations: [Personal history of colonic polyps] Onset: 02-26-2018 Episodic Other ear and sense organ disorders (1 source) Impacted cerumen of bilateral ears; Translations: [Impacted cerumen, bilateral] 07-11-2023 Episodic Other gastrointestinal disorders (20 sources) Malabsorption syndrome; Translations: [Intestinal malabsorption, unspecified] Onset: 05-31-2021 Chronic Other gastrointestinal disorders (1 source) Intestinal malabsorption, unspecified; Translations: [Malabsorption syndrome] Onset: 05-31-2021 Chronic Other gastrointestinal disorders (1 source) Other fecal abnormalities; Translations: [Other fecal abnormalities] Onset: 02-26-2018 Episodic Other gastrointestinal disorders (3 sources) Stool finding; Translations: [Other fecal abnormalities] 05-28-2023 Episodic Other gastrointestinal disorders (3 sources) Diarrhea; Translations: [Diarrhea, unspecified] 09-26-2023 Episodic Other liver diseases (20 sources) Steatosis of liver; Translations: [Fatty (change of) liver, not elsewhere classified] Onset: 05-26-2022 Chronic Other liver diseases (8 sources) Fatty (change of) liver, not elsewhere classified; Translations: [Nonalcoholic fatty liver disease] Onset: 04-05-2022 05-28-2023 Chronic Other nervous system disorders (1 source) Postoperative pain ; Translations: [Other acute postprocedural pain] Episodic Other screening for suspected conditions (not mental disorders or infectious disease) (12 sources) Patient encounter status; Translations: [Encounter for screening mammogram for malignant neoplasm of breast] Onset: 06-03-2024 Episodic Comment on above: CEA is decreasing. Peritonitis and intestinal abscess (11 sources) Retrocecal abscess; Translations: [Peritoneal abscess] 03-05-2023 Episodic Phlebitis; thrombophlebitis and thromboembolism (3 sources) Deep venous thrombosis of lower extremity; Translations: [Acute embolism and thrombosis of unspecified deep veins of unspecified distal lower extremity] 12-11-2023 Episodic Regional enteritis and ulcerative colitis (14 sources) Ulcerative colitis; Translations: [Ulcerative colitis, unspecified, without complications] Onset: 11-21-2024 04-12-2023 Chronic Residual codes; unclassified (5 sources) History of partial resection of colon; Translations: [Acquired absence of other specified parts of digestive tract] 04-12-2023 Episodic Comment on above: Patient has recovere d well following her hemicolectomy. I discussed with her the rationale for dietary restrictions and suggested that any swelling at her anastomosis should be largely resolved. I did caution her against large volumes of insoluble fiber or cellulose, specifically. At this time I do not know that she would benefit from such strict dietary guidance. Overall, she is well-healed and I have no wound concerns. Residual codes; unclassified (18 sources) Bilateral lower limb edema; Translations: [Localized edema] Onset: 11-20-2023 10-24-2023 Episodic Comment on above: Etiology is multifac torial, including hypoalbuminemia. Spondylosis; intervertebral disc disorders; other back problems (20 sources) Spondylosis; Translations: [Spondylosis, unspecified] Onset: 09-06-2020 09-06-2020 Chronic Thyroid disorders (20 sources) Acquired hypothyroidism; Translations: [Hypothyroidism, unspecified] Onset: 10-06-2016 10-06-2016 Chronic Past or Other Problems Problem Classification Problem Date Documented Da te Episodic/Chronic Biliary tract disease (20 sources) Cholelithiasis without obstruction; Translations: [Calculus of gallbladder without cholecystitis without obstruction] Onset: 04-05-2022 Episodic Deficiency and other anemia (1 source) Other vitamin B12 deficiency anemias; Translations: [Other vitamin B12 deficiency anemia] Onset: 05-31-2021 Episodic Deficiency and other anemia (1 source) Other iron deficiency anemias; Translations: [Other iron deficiency anemia] Onset: 05-31-2021 Episodic Fluid and electrolyte disorders (14 sources) Hypokalemia; Translations: [Hypokalemia] Onset: 11-20-2023 11-14-2023 Episodic Gastrointestinal hemorrhage (20 sources) Hemorrhage of [...] group vitamins] Onset: 02-20-2020 02-20-2020 Episodic Other connective tissue disease (20 sources) Tendinitis of right rotator cuff; Translations: [Other shoulder lesions, right shoulder] Onset: 10-16-2017 10-16-2017 Episodic Other connective tissue disease (12 sources) Muscle weakness; Translations: [Muscle weakness (generalized)] Onset: 11-20-2023 11-20-2023 Episodic Other connective tissue disease (11 sources) Swelling of left lower limb; Translations: [Other specified soft tissue disorders] Onset: 2024 2024 Episodic Other connective tissue disease (11 sources) Swelling of right lower limb; Translations: [Other specified soft tissue disorders] Onset: 2024 2024 Episodic Other connective tissue disease (2 sources) Other specified soft tissue disorders; Translations: [Left leg swelling] Onset: 2024 Episodic Other gastrointestinal disorders (20 sources) Occult blood in stools; Translations: [Other fecal abnormalities] Onset: 01-21-2018 01-21-2018 Episodic Other liver diseases (20 sources) Alkaline phosphatase raised; Translations: [Abnormal levels of other serum enzymes] Onset: 09-05-2022 09-05-2022 Episodic Other nervous system disorders (20 sources) Peripheral nerve disease ; Translations: [Polyneuropathy, unspecified] Onset: 01-21-2018 Resolved: 08-22-2021 01-21-2018 Chronic Other nervous system disorders (12 sources) Abnormal gait; Translations: [Unspecified abnormalities of gait and mobility] Onset: 11-20-2023 11-20-2023 Episodic Other non-traumatic joint disorders (20 sources) Chronic ankle pain; Translations: [Pain in right ankle and joints of right foot] Onset: 08-25-2020 08-25-2020 Episodic Other non-traumatic joint disorders (20 sources) Hip pain; Translations: [Pain in right hip] Onset: 08-25-2020 08-25-2020 Episodic Other nutritional; endocrine; and metabolic disorders (20 sources) Obese class II; Translations: [Obesity, unspecified] Onset: 04-13-2017 Resolved: 03-02-2023 04-13-2017 Chronic Other nutritional; endocrine; and metabolic disorders (20 sources) Body mass index 40+ - severely obese; Translations: [Morbid (severe) obesity due to excess calories] Onset: 02-26-2018 Resolved: 08-23-2020 08-23-2020 Chronic Other nutritional; endocrine; and metabolic disorders (6 sources) Weight loss; Translations: [Abnormal weight loss] Onset: 11-20-2023 11-20-2023 Episodic Other nutritional; endocrine; and metabolic disorders (6 sources) Weight decreased; Translations: [Abnormal weight loss] Onset: 11-20-2023 11-20-2023 Episodic Residual codes; unclassified (20 sources) History of colectomy; Translations: [Acquired absence of other specified parts of digestive tract] Onset: 07-04-2023 03-19-2023 Episodic Residual codes; unclassified (5 sources) Acquired absence of other specified parts of digestive tract; Translations: [Other postprocedural status] Onset: 07-04-2023 03-15-2023 Episodic Residual codes; unclassified (1 source) Localized edema; Translations: [Localized edema] Onset: 01-24-2024 Episodic Spondylosis; intervertebral disc disorders; other back problems (20 sources) Chronic low back pain; Translations: [Chronic midline low back pain without sciatica] Onset: 08-25-2020 08-25-2020 Episodic Unclassified (1 source) Patient encounter status 2024 Results Test Name Value Interpretation Reference Range Facility [facility] 12-23-2024 [facility] Nurse Visit (FAMPWS) ----- NGUYEN QUEEN ([id number]) 1945 F Date Time Provider Department 12/23/24 8:00 AM [place] [facility] During your visit today, we recorded the following information about you: LANI EDMOND 12/23/2024 8:05 AM Signed Patient presents for B-12 injection. Denies any problems at this time. Patient instructed on any SE of medication, verbalized understanding and agreed to proceed with treatment. Tolerated injection well. Lani Edmond LPN Allergies As of Date: 12/23/2024 Noted Allergy Reaction ACETAMINOPHEN 10/16/2023 14 - Other: See Comments ASPIRIN 10/16/2023 14 - Other: See Comments BEEF CONTAINING PRODUCTS 03/07/2023 14 - Other: See Comments Comments: PT STATES SHUTS DOWN ORGANS; red meat BENADRYL (DIPHENHYDRAMINE HCL) 05/17/2015 7 - Swelling CITRUS AND DERIVATIVES 03/07/2023 14 - Other: See Comments Comments: PT STATES EFFECTS LIVER CORTICOSTEROIDS (GLUCOCORTICOIDS) 10/16/2023 7 - Swelling PENICILLINS 05/17/2015 12 - Shortness of Breath [id number] REDUCTASE INHIBIT*09/28/2015 15 - Contraindication-Medical Lester* Comments: History of liver failure Date Reviewed: 12/19/2024 Reviewed by: Nguyen Smith RN - Fully Assessed Reason for Visit: B-12 Injection [247] Primary Visit Diagnosis:Vitamin B12 deficiency [E53.8] Prescriptions as of 12/23/2024 - cholestyramine light 4 gram powder Take 4 g by mouth two times a day with meals. Mix with 60-180 mL of water or other noncarbonated liquid, highly fluid soup, applesauce or crushed pineapple before ingesting - lancets (ONE TOUCH DELICA) 33 gauge Test blood sugar(s) twice daily. Dx: Type 2 DM - Controlled E11.9 Insulin: No - levothyroxine (LEVOXYL) 150 mcg tablet Take 1 tablet 3 days a week and take 1.5 tablets 4 days a week. Take on empty stomach. For Thyroid. - metFORMIN (GLUCOPHAGE) 500 mg tablet Take 1 tablet by mouth two times a day with meals. - blood sugar diagnostic (ONETOUCH ULTRA TEST) test strip Use with blood glucose test three times a day. Insulin Dep? Yes - losartan (COZAAR) 50 mg tablet Take 1 tablet by mouth once daily. - blood sugar diagnostic (BLOOD GLUCOSE TEST) test strip Test blood sugar(s) 2 times daily. Dx: Type 2 DM - Controlled E11.9 Insulin: No - glimepiride (AMARYL) 2 mg tablet Take 1 tablet by mouth daily with breakfast. - ferrous sulfate 325 mg (65 mg iron) tablet Take 1 tablet by mouth every other day. - lancets 30 gauge Use with blood glucose test once daily Delcia plus - ONETOUCH DELICA LANCETS 30 gauge TEST BLOOD SUGAR(S) TEST BLOOD SUGARS TWICE DAILY. DX: TYPE 2 DM - CONTROLLED E11.9 INSULIN: NO Delecia - Lancets (ONETOUCH ULTRASOFT LANCETS) lancets Use once daily as directed E11.9 - blood sugar diagnostic (ONETOUCH ULTRA TEST STRIP) test strip Type 2 diabetes, no insulin, well controlled, Use as instructed - Blood-Glucose Meter monitoring kit Glucose Meter of Choice - Kit - Dx: Type 2 DM - Controlled E11.9 Facility-Administered Medications as of 12/23/2024 - cyanocobalamin 1,000 mcg injection Problem List As Of Date 12/23/2024 Noted Resolved Essential hypertension with goal blood pressure*05/17/2015 Diabetes mellitus type 2, controlled, without c*05/17/2015 08/23/2020 Hypothyroidism, acquired [E03.9] 10/06/2016 Hypertriglyceridemia [E78.1] 04/13/2017 Obesity, Class II, BMI 35-39.9 [E66.812] 04/13/2017 03/02/2023 Right rotator cuff tendinitis [M75.81] 10/16/2017 Peripheral neuropathy [G62.9] 01/21/2018 08/22/2021 Controlled type 2 diabetes mellitus without com*01/21/2018 09/04/2022 Fecal occult blood test positive [R19.5] 01/21/2018 Blood in stool [K92.1] 01/21/2018 Obesity, Class III, BMI >= 40 [E66.813] 02/26/2018 08/23/2020 Vitamin D deficiency [E55.9] 02/19/2019 Vitamin B12 deficiency [E53.8] 02/20/2020 Chronic pain of right ankle [M25.571, G89.29] 08/25/2020 Bilateral hip pain [M25.551, M25.552] 08/25/2020 Chronic midline low back pain without sciatica *08/25/2020 Atypical squamoproliferative skin lesion [D49.2]08/25/2020 Osteoarthritis of back [M47.9] 09/06/2020 Absolute anemia [D64.9] 05/31/2021 Fatigue [R53.83] 05/31/2021 Malabsorption syndrome [K90.9] 05/31/2021 Iron deficiency [E61.1] 11/15/2021 Uncontrolled type 2 diabetes mellitus with hype*11/15/2021 RUQ abdominal pain [R10.11] 05/26/2022 Calculus of gallbladder without cholecystitis w*05/26/2022 Fatty liver [K76.0] 05/26/2022 Type 2 diabetes mellitus with hypertriglyceride* 023 Elevated alkaline phosphatase level [R74.8] 09/05/2022 Colon neoplasm [D49.0] 07/04/2023 S/P colectomy [Z90.49] 07/04/2023 Gait abnormality [R26.9] 11/20/2023 Muscle weakness [M62.81] 11/20/2023 Weight loss [R63.4] 11/20/2023 Controlled type 2 diabetes mellitus without com*11/20/2023 Hypokalemia [E87.6] 11/20/2023 Bilateral lower extremity edema [R60.0] 11/20/2023 Right leg swelling [ (more content not included)... Normal [facility] CNOVon 12-19-2024 CNOV Office Visit (PODIWS ) ----- NGUYEN QUEEN ([id number]) 1945 F Date Time Provider Department 12/19/24 8:45 AM FARRUKH DYE PODIWS During your visit today, we recorded the following information about you: Nguyen Smith, ROBERT 12/21/2024 9:34 AM Signed Patient presents with: Left Foot - New, Diabetic Foot Care Right Foot - New, Diabetic Foot Care Patient presents as new patient for diabetic foot/nail care. States that nails are thick and discolored and she has a hard time trimming them. Last A1c 6.4 on 11/14/24. Has not seen Podiatry for this before. SONIDO 03/29/24 Farrukh Dye 12/19/2024 9:00 AM Signed Diabetes Foot Care Instructions When you have diabetes, proper foot care is very important. Poor foot care may lead to amputation of a foot or leg. As a person with diabetes, you are more vulnerable to foot problems, because diabetes can damage your nerves and reduce blood flow to your feet. Here are some diabetes foot care tips to follow: Wash and Dry Your Feet Daily Use mild soaps Use warm water Pat your skin dry; do not rub. Thoroughly dry your feet. After washing, use lotion on your feet to prevent cracking. Do not put lotion between your toes. Examine Your Feet Each Day Check the tops and bottoms of your feet. Have someone else look at your feet if you cannot see them. Check for dry, cracked skin. Look for blisters, cuts, scratches, or other sores. Check for redness, increased warmth, or tenderness when touching any area of your feet. Check for ingrown toenails, corns, and calluses. If you get a blister or sore from your shoes, do not pop it. Apply a bandage and wear a different pair of shoes. Take Care of Your Toenails Cut toenails after bathing, when they are soft. Cut toenails straight across and smooth with a nail file. Avoid cutting into the corners of toes. Do not cut cuticles. If you have neuropathy (or decreased sensation in your feet) a investigation division captain should always cut your toenails. Be Careful When Exercising Walk and exercise in comfortable shoes. Do not exercise when you have open sores on your feet. Protect Your Feet With Shoes and Socks Never go barefoot. Always protect your feet by wearing shoes or hard-soled slippers or footwear. Avoid shoes with high heels and pointed toes. Avoid shoes that expose your toes or heels (such as open-toed shoes or sandals). These types of shoes increase your risk for injury and potential infections. Try on new footwear with the type of socks you usually wear. Do not wear new shoes for more than an hour at a time. Change your socks daily. Look and feel inside your shoes before putting them on to make sure there are no foreign objects or rough areas. Avoid tight socks. Wear natural-fiber socks (cotton, wool, or a cotton-wool blend). Wear special shoes if your health care provider recommends them. Wear shoes/boots that will protect your feet from various weather conditions (cold, moisture, etc.). Make sure your shoes fit properly. If you have neuropathy (nerve damage), you may not notice that your shoes are too tight. Perform the footwear test described below. Footwear Test Use this simple test to see if your shoes fit correctly: Stand on a piece of paper. (Make sure you are standing and not sitting, because your foot changes shape when you stand.) Trace the outline of your foot. Trace the outline of your shoe. Compare the tracings: Is the shoe too narrow? Is your foot crammed into the shoe? The shoe should be at least 1/2 inch longer than your longest toe and as wide as your foot. Proper Shoe Choices The following types of shoes are best for people with diabetes Closed toes and heels Leather uppers without a seam inside At least 1/2 inch extra space at the end of your longest toe Inside of shoe should be soft with no rough areas Outer sole should be made of stiff material Shoes should be at least as wide as your feet Tips for Foot Care in Diabetes Don't wait to treat a minor foot problem if you have diabetes. Follow your health care provider's guidelines and first aid guidelines. Report foot injuries and infections to your health care provider immediately. Check water temperature with your elbow, not your foot. Do not use a heating pad on your feet. Do not cross your legs. Do not self-treat your corns, calluses, or other foot problems. Go to your health care provider or investigation division captain to treat these conditions. Farrukh Dye 12/21/2024 9:34 AM Signed Subjective The patient is a 79-year-old female with DM presenting for a diabetic foot exam. The patient reports right ankle stiffness and pain that worsens with walking. She experiences difficulty feeling the ground beneath her feet, which affects her balance and increases her risk of falling, particularly when walking her dog. She does not take any me (more content not included)... Normal [facility] MRSA/SAID NASAL SCREENon MRSA+SAID SCRN Negative Normal [facility] Comment on above: Performed By: #### L 3100.2300, L500.4050, L503.6030, L504.2610, L900.0098, L100.0100 #### [facility] [address] [place], [address] Surgery Visit Reporton 12-09 Surgery Visit Report [facility] [address] [place] [address] OFFICE VISIT Date of Service: 12/09/24 MR#: [id number] Acct: [id number] Name: NGUYEN QUEEN Rep #: [id number] : 1945 Provider: Dr. Santosh kennedy MD Age/Sex: 79/F Location: [facility] Status: Signed Intake Vital Signs 10/23/24 14:05 12/09/24 09:41 Height 5 ft 3 in 5 ft 3 in Weight: 173 lb 9 oz 176 lb 4 oz BMI 30.7 31.2 BP 111/73 114/74 Blood Pressure Location Lt brachial Rt brachial Position Sitting Sitting Respiration 18 18 Pulse 75 81 Pulse Source Monitor Monitor Temp 98 F Pulse Oximetry (%) 96 98 Oxygen Delivery Method room air room air Intake Visit Reasons: POSSIBLE HERNIA IN ABDOMEN Chief Complaint: Possible hernia Wool Hanker Required: No Is patient in pain?: No Allergies Corticosteroids (Glucocorticoids) (steroids) Allergy (Severe, Verified 12/09/24 09:42) Shortness of breath acetaminophen (From Tylenol) Allergy (Intermediate, Verified 12/09/24 09:42) Shortness of breath aspirin Allergy (Intermediate, Verified 12/09/24 09:42) Shortness of breath diphenhydramine (From Benadryl) Allergy (Verified 12/09/24 09:42) PT UNSURE OF REACTION Penicillins Allergy (Verified 12/09/24 09:42) PT UNSURE OF REACTION Beef Containing Products Adverse Reaction (Verified 12/09/24 09:42) Other [place] And Derivatives Adverse Reaction (Verified 12/09/24 09:42) Other Food Allergies: Uncoded Adverse Reaction (Verified 12/09/24 09:42) Vomiting Medications ???Medication ???Instructions ???Recorded ???Confirmed ???Type glimepiride 2 mg tablet 2 mg PO DAILY diabetes 03/05/23 History levothyroxine 150 mcg tablet 150 mcg PO SUMOTU thyroid 03/05/23 12/09/24 History losartan 50 mg tablet 50 mg PO DAILY blood pressure 02/1312/09/24 History metformin 500 mg tablet 500 mg PO BID diabetes 03/05/23 History levothyroxine 150 mcg capsule 225 mcg PO WETHFRSA thyroid 12/09/24 History ferrous sulfate 325 mg (65 mg 325 mg PO .COMPLEX 05/06/24 History iron) tablet (FeroSul) cholestyramine (with sugar) 4 gram 4 g PO HS 3 months #60 ea 12/09/24 Rx powder for susp in a packet Have you fallen in the past year?: No PFSH Medical History (Updated 12/09/24 @ 16:[address] Santosh Ballard MD) Pre-op testing Colon cancer Bilateral lower extremity edema Elevated CEA GI bleed Colitis Vision loss of right eye Vision loss of left eye Anemia Hypothyroidism Chronic pain Rheumatoid arthritis GERD (gastroesophageal reflux disease) Non-smoker Irregular heart beat Hypertension Migraines Seizures Diabetes mellitus Surgical History History of appendectomy Status post right hemicolectomy Hx of cholecystectomy Social History Smoking Status: Never smoker alcohol intake: never HPI HPI HPI: The patient is a 79-year-old female known to me for a history of right colon cancer status post open right hemicolectomy with me February 2023. She additionally carries diagnoses of DMII, hypothy roidism, iron deficiency anemia, and ulcerative colitis and presents for evaluation of an abdominal wall hernia. A few weeks ago, the patient sustained an injury when her dog???s toenail punctured her t-shirt and umbilicus as she was lifting him off her shoulders. She felt something ???stretch and pop??? at that time. Since then, she has experienced tenderness at the umbilicus with pain radiating to the right along her waist. She denies any palpable bulge. She reports frequent sensations of gas or air bubbles that ???pop??? and sometimes cause pain. She was evaluated by Dr. Simeon a few weeks ago during a routine diabetes visit, who noted a possible abnormality on exam. She has a history of emergency colon surgery and a CT scan from October 2023 demonstrated small, fat-containing ventral hernias. She reports chronic diarrhea since a colonoscopy in October 2023, which identified ulcerative colitis with inflammatory polyps. She previously experienced both bright red and dark blood in her s tool, but this has improved. She currently takes cholestyramine powder at night, which has helped reduce the frequency and severity of accidents. She has not been started on mesalamine or other IBD- specific therapy. She expresses reluctance to undergo repeat colonoscopy due to prior difficult experiences, including episodes where she felt she could not breathe and required the procedure to be stopped. She intentionally lost 120 pounds after surgery, though she attributes much of this to early satiety, being able to eat only 3 bites before feeling full. She has recently regained 8 (more content not included)... Normal [facility] 11-21-2024 [facility] ----- NGUYEN QUEEN ([id number]) 1945 F Date Time Provider Department 11/21/24 9:40 AM [facility] During your visit today, we recorded the following information about you: Temperature Pulse Respiration Blood pressure 96.4 degrees 64/minute 16/minute 122/70 Weight 78.9 kg Jeff Simeon, 11/23/2024 6:49 PM Signed Patient presents with: 6 Month Exam HPI: Nguyen Belen Bret is a 79 year old female who presents to the office today for review of health conditions. Concerns today: Hypothyroidism, taking levothyroxine, no concerns TSH Date Value Ref Range Status 11/14/2024 0.133 (L) 0.270 - 4.200 mIU/L Final Free T4 Date Value Ref Range Status 11/14/2024 1.4 0.9 - 1.7 ng/dL Final Iron deficiency, was given 7 treatments, feels this is helping her fatigue. Her hemoglobin when last checked 2-3 weeks ago was at 12. + thickening of toenails and discoloration, struggling to keep toenails trimmed and feet taken care of with her diabetes, hasn't seen [employer] recently. Vitamin b12 deficiency, last level in the 400s. Hasn't had labs rechecked. But does feel less fatigue than previously Will have follow up next with Dr. Singh for Oncologist on 10/23 and labs prior Next follow up in the next few months with Head Porter Dr. Crystal as well. She is eating better and less weakness symptoms. Still has a very restricted diet- no raw vegetables, and not able to eat most cooked vegetables as well. Ms. Queen has past history of diabetes. [...] HgA1C was Hemoglobin A1C (%) Date Value 11/14/2024 6.4 02/04/2024 5.5 02/15/2021 7.3 08/17/2020 7.0 ) Last Ophthalmology exam was within the past 12 months Ms. Queen reports history of hyperlipidemia. Current therapy includes diet and exercise. Not able to tolerate statin therapy, Her most recent lipid panels are reviewed. Cholesterol, Total (mg/dL) Date Value 11/14/2024 148 02/15/2021 189 HDL Cholesterol (mg/dL) Date Value 11/14/2024 35 02/15/2021 34 LDL Cholesterol, Calculated (mg/dL) Date Value 11/14/2024 82 02/15/2021 122 Triglyceride (mg/dL) Date Value 11/14/2024 183 02/15/2021 165 Ms. Queen indicates a history of hypertension and states that she is feeling well and denies any symptoms referable to elevated blood pressure. Specifically denies headache, chest pain, palpitations, dyspnea, and peripheral edema. Patient denies any side effects of her medication(s) and is compliant with their regimen. Last 3 Encounter BP Readings: Date: BP: 11/21/2024 122/70 2024 124/60 02/14/2024 118/72 She watches her diet for sodium, low fat and low cholesterol some of the time. She does not check BP's generally. Nguyen gets minimal exercise. PAST MEDICAL HISTORY Diagnosis Date Advance care planning 08/24/2021 MARLEN Diabetes mellitus, type 2 (HCC) Environmental allergies Hyperlipidemia Hypothyroidism, unspecified Liver failure (HCC) 2005 unsure of cause Migraine headache onset age 7 PAST SURGICAL HISTORY Procedure Laterality Date BREAST BIOPSY NEEDLE LEFT 12/31/2014 x 2, Dr. Ronquillo COLONOSCOPY FLX DX W/COLLJ SPEC WHEN PFRMD 08/25/2003 adenomatous polyp and diverticulosis. [facility] COLONOSCOPY FLX DX W/COLLJ SPEC WHEN PFRMD 09/28/2006 No polyps found. 5 yr recall. [facility] COLONOSCOPY FLX DX W/COLLJ SPEC WHEN PFRMD 02/26/2018 Colonoscopy ESOPHAGOGASTRODUODENOSCOP Y TRANSORAL DIAGNOSTIC 08/31/2003 Unremarkable, negative biopsies. [facility] ESOPHAGOGASTRODUODENOSCOP Y TRANSORAL DIAGNOSTIC 02/26/2018 EGD LAPAROSCOPIC CHOLECYSTECTOMY 04/05/2022 REMV CATARACT EXTRACAP,INSERT LENS Bilateral TONSILLECTOMY HX SOCIAL HISTORY[1] FAMILY HISTORY Adopted: Yes Allergies: ALLERGIES Allergen Reactions Benadryl [Diphenhyd* Swelling Penicillins Shortness of Breath Uohlsji-Lsy-Nse Red* Contraindication-Medical Surgical History of liver failure Current Meds: cholestyramine light 4 gram powder Take 4 g by mouth two times a day with meals. Mix with 60-180 mL of water or other noncarbonated liquid, highly fluid soup, applesauce or crushed pineapple before ingesting lancets (ONE TOUCH DELICA) 33 gauge Test blood sugar(s) twice daily. Dx: Type 2 DM - Controlled E11.9 Insulin: No levothyroxine (LEVOXYL) 150 mcg tablet Take 1 tablet 3 days a week and take 1.5 tablets 4 days a week. (more content not included)... [facility] ----- NGUYEN QUEEN ([id number]) 1945 F Date Time Provider Department 11/21/24 JEFF SIMEON During your visit today, we recorded the following information about you: Astrid Larios, RN 11/21/2024 3:36 PM Signed Fátima Lopez calling from [facility]. States patient entered their office today and stated that she told Dr. Simeon today that she got scratched by her dog's nail that went through her stomach and she possibly ruptured something. Fátima states they have not received any referrals or information from Dr. Simeon's office about this patient having any surgical reasons to be seen, and calling to confirm this information. Will route message to PCP for review, as pt did have an OV today with PCP but OV note is not completed as of this time. Please call Fátima back [facility] on Sunday with an update, if possible. [phone] Jeff Simeon DO 11/21/2024 4:58 PM Signed No, I didn't say anything ruptured. I said if she is having umbilical soreness she needs to see her surgeon for opinion regarding possibility of umbilical hernia, I haven't sent a referral yet DO Ramiro Carreon Linda M, LPN 11/24/2024 10:28 AM Signed Called [facility]. Gave information provided. Nurse voices understanding.. Allergies As of Date: 11/21/2024 Noted Allergy Reaction BENADRYL (DIPHENHYDRAMINE HCL) 05/17/2015 7 - Swelling PENICILLINS 05/17/2015 12 - Shortness of Breath [id number] REDUCTASE INHIBIT*09/28/2015 15 - Contraindication-Medical Lester* Comments: History of liver failure Date Reviewed: 11/21/2024 Reviewed by: Pebbles Molina LPN - Fully Assessed Reason for Visit: Patient Question [1087] Prescriptions as of 11/24/2024 - cholestyramine light 4 gram powder Take 4 g by mouth two times a day with meals. Mix with 60-180 mL of water or other noncarbonated liquid, highly fluid soup, applesauce or crushed pineapple before ingesting - lancets (ONE TOUCH DELICA) 33 gauge Test blood sugar(s) twice daily. Dx: Type 2 DM - Controlled E11.9 Insulin: No - levothyroxine (LEVOXYL) 150 mcg tablet Take 1 tablet 3 days a week and take 1.5 tablets 4 days a week. Take on empty stomach. For Thyroid. - metFORMIN (GLUCOPHAGE) 500 mg tablet Take 1 tablet by mouth two times a day with meals. - blood sugar diagnostic (ONETOUCH ULTRA TEST) test strip Use with blood glucose test three times a day. Insulin Dep? Yes - losartan (COZAAR) 50 mg tablet Take 1 tablet by mouth once daily. - blood sugar diagnostic (BLOOD GLUCOSE TEST) test strip Test blood sugar(s) 2 times daily. Dx: Type 2 DM - Controlled E11.9 Insulin: No - glimepiride (AMARYL) 2 mg tablet Take 1 tablet by mouth daily with breakfast. - ferrous sulfate 325 mg (65 mg iron) tablet Take 1 tablet by mouth every other day. - lancets 30 gauge Use with blood glucose test once daily Delcia plus - ONETOUCH DELICA LANCETS 30 gauge TEST BLOOD SUGAR(S) TEST BLOOD SUGARS TWICE DAILY. DX: TYPE 2 DM - CONTROLLED E11.9 INSULIN: NO Delecia - Lancets (ONETOUCH ULTRASOFT LANCETS) lancets Use once daily as directed E11.9 - blood sugar diagnostic (ONETOUCH ULTRA TEST STRIP) test strip Type 2 diabetes, no insulin, well controlled, Use as instructed - Blood-Glucose Meter monitoring kit Glucose Meter of Choice - Kit - Dx: Type 2 DM - Controlled E11.9 Facility-Administered Medications as of 11/24/2024 - cyanocobalamin 1,000 mcg injection Problem List As Of Date 11/21/2024 Noted Resolved Essential hypertension with goal blood pressure*05/17/2015 Diabetes mellitus type 2, controlled, without c*05/17/2015 08/23/2020 Hypothyroidism, acquired [E03.9] 10/06/2016 Hypertriglyceridemia [E78.1] 04/13/2017 Obesity, Class II, BMI 35-39.9 [E66.812] 04/13/2017 03/02/2023 Right rotator cuff tendinitis [M75.81] 10/16/2017 Peripheral neuropathy [G62.9] 01/21/2018 08/22/2021 Controlled type 2 diabetes mellitus without com*01/21/2018 09/04/2022 Fecal occult blood test positive [R19.5] 01/21/2018 Blood in stool [K92.1] 01/21/2018 Obesity, Class III, BMI >= 40 [E66.813] 02/26/2018 08/23/2020 Vitamin D deficiency [E55.9] 02/19/2019 Vitamin B12 deficiency [E53.8] 02/20/2020 Chronic pain of right ankle [M25.571, G89.29] 08/25/2020 Bilateral hip pain [M25.551, M25.552] 08/25/2020 Chronic midline low back pain without sciatica *08/25/2020 Atypical squamoproliferative skin lesion [D49.2]08/25/2020 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 Normal [facility] 25(OH)D3 [facility] 2024 25-hydroxyvitamin D3 [Mass/Vol] 16.3 ng/mL Low 31.0-80.0 [facility] Comment on above: Order Comment: Speci men Type: BLOOD SPECIMENOrdering Facility: [facility] Address: [address] [place] [address] Result Comment: Clas sification of 25 [place] Vitamin D status: Deficiency/Insufficiency: < or = 30 ng/ml. Sufficiency/Optimal Levels: 31-80 ng/mL Toxicity: > 100 ng/mL. Test performed by chemiluminescent immunoassay. Performed By: #### 1 989-3 ####[facility] LABCLIA [id number] [facility] SERVICESJuan [facility] [place] [address] [place] CBC W Auto Differential pane l (Bld)on 11-14-2024 Basophils (Bld) [#/Vol] 0.05 10*3/uL Normal <0.11 [facility] Comment on above: Order Comment: Speci men Type: BLOOD SPECIMENOrdering Facility: [facility] Address: [address] [place] [address] Performed By: #### 5 7021-8 ####[facility] MIRAMAR [id number] [place] [address] [place] Basophils/100 WBC (Bld) 0.7 % Normal [facility] Comment on above: Order Comment: Speci men Type: BLOOD SPECIMENOrdering Facility: [facility] Address: [address] [place] [address] Performed By: #### 5 7021-8 ####[facility] MIRAMAR [id number] [place] [address] [place] Differential cell count method Nom (Bld) Auto Normal [facility] Comment on above: Order Comment: Speci men Type: BLOOD SPECIMENOrdering Facility: [facility] Address: [address] [place] [address] Performed By: #### 5 7021-8 ####[facility] MIRAMAR [id number] [place] [address] [place] Eosinophils (Bld) [#/Vol] 0.30 10*3/uL Normal <0.46 [facility] Comment on above: Order Comment: Speci men Type: BLOOD SPECIMENOrdering Facility: [facility] Address: [address] [place] [address] Performed By: #### 5 7021-8 ####[facility] MIRAMAR [id number] [place] [address] [place] Eosinophils/100 WBC (Bld) 4.4 % Normal [facility] Comment on above: Order Comment: Speci men Type: BLOOD SPECIMENOrdering Facility: [facility] Address: [address] [place] [address] Performed By: #### 5 7021-8 ####[facility] [id number] [place] [address] [place] Erythrocyte distribution width (RBC) [Ratio] 14.1 % Normal 11.5-15.0 [facility] Comment on above: Order Comment: Speci men Type: BLOOD SPECIMENOrdering Facility: [facility] Address: [address] [place] [address] Performed By: #### 5 7021-8 ####[facility] [id number] [place] [address] [place] Hematocrit (Bld) [Volume fraction] 37.2 % Normal 36.0-46.0 [facility] Comment on above: Order Comment: Speci men Type: BLOOD SPECIMENOrdering Facility: [facility] Address: [address] [place] [address] Performed By: #### 5 7021-8 ####[facility] [id number] [place] [address] [place] Hemoglobin (Bld) [Mass/Vol] 11.9 g/dL Normal 11.5-15.5 [facility] Comment on above: Order Comment: Speci men Type: BLOOD SPECIMENOrdering Facility: [facility] Address: [address] [place] [address] Performed By: #### 5 7021-8 ####[facility] MIRAMAR [id number] [place] [address] [place] Immature granulocytes (Bld) [#/Vol] 10*3/uL Normal <0.10 [facility] Comment on above: Order Comment: Speci men Type: BLOOD SPECIMENOrdering Facility: [facility] Address: [address] [place] [address] Performed By: #### 5 7021-8 ####[facility] RICKIETONALEANCLIA [id number] [address] Immature granulocytes/100 WBC (Bld) 0.3 % Normal [facility] Comment on above: Order Comment: Speci men Type: BLOOD SPECIMENOrdering Facility: [facility] Address: [address] [place] [address] Performed By: #### 5 7021-8 ####[facility]ENTERNCA [id number] [place] [address] [place] Lymphocytes (Bld) [#/Vol] 1.75 10*3/uL Normal 1.00-4.0 0 [facility] Comment on above: Order Comment: Speci men Type: BLOOD SPECIMENOrdering Facility: [facility] Address: [address] [place] [address] Performed By: #### 5 7021-8 ####[facility] CENTERNCLIA [id number] [address] [facility] Lymphocytes/100 WBC (Bld) 25.7 % Normal [facility] Comment on above: Order Comment: Speci men Type: BLOOD SPECIMENOrdering Facility: [facility] Address: [address] [place] [address] Performed By: #### 5 7021-8 ####[facility] BUCYRUS HOSPITALLIA [id number] [place] [address] [place] MCH (RBC) [Entitic mass] 24.6 pg Low 26.0-34.0 [facility] Comment on above: Order Comment: Speci men Type: BLOOD SPECIMENOrdering Facility: [facility] Address: [address] [place] [address] Performed By: #### 5 7021-8 ####[facility]ITAL[facility] [id number] [place] [address] [place] MCHC (RBC) [Mass/Vol] 32.0 g/dL Normal 30.5-36.0 [facility] Comment on above: Order Comment: Speci men Type: BLOOD SPECIMENOrdering Facility: [facility] Address: [address] [place] [address] Performed By: #### 5 7021-8 ####[facility] MIRAMAR [id number] [place] [address] [place] MCV (RBC) [Entitic vol] 77.0 fL Low 80.0-100.0 C [facility] Comment on above: Order Comment: Speci men Type: BLOOD SPECIMENOrdering Facility: [facility] Address: [address] [place] [address] Performed By: #### 5 7021-8 ####[facility] MIRAMAR [id number] [place] [address] [place] Monocytes (Bld) [#/Vol] 0.65 10*3/uL Normal <0.87 [facility] Comment on above: Order Comment: Speci men Type: BLOOD SPECIMENOrdering Facility: [facility] Address: [address] [place] [address] Performed By: #### 5 7021-8 ####[facility] MIRAMAR [id number] [place] [address] [place] Monocytes/100 WBC (Bld) 9.5 % Normal C [facility] Comment on above: Order Comment: Speci men Type: BLOOD SPECIMENOrdering Facility: [facility] Address: [address] [place] [address] Performed By: #### 5 7021-8 ####[facility]ENTERNCLI [id number] [place] [address] [place] Neutrophils (Bld) [#/Vol] 4.05 10*3/uL Normal 1.45-7.5 0 [facility] Comment on above: Order Comment: Speci men Type: BLOOD SPECIMENOrdering Facility: [facility] Address: [address] [place] [address] Performed By: #### 5 7021-8 ####[facility] [id number] [place] [address] [place] Neutrophils/100 WBC (Bld) 59.4 % Normal [facility] Comment on above: Order Comment: Speci men Type: BLOOD SPECIMENOrdering Facility: [facility] Address: [address] [place] [address] Performed By: #### 5 7021-8 ####[facility] [id number] [place] [address] [place] Nucleated RBC (Bld) [#/Vol] 10*3/uL Normal <0.01 [facility] Comment on above: Order Comment: Speci men Type: BLOOD SPECIMENOrdering Facility: [facility] Address: [address] [place] [address] Performed By: #### 5 7021-8 ####[facility] MIRAMAR [id number] [place] [address] [place] Nucleated RBC/100 WBC (Bld) [Ratio] 0.0 /100 WBC Normal [facility] Comment on above: Order Comment: Speci men Type: BLOOD SPECIMENOrdering Facility: [facility] Address: [address] [place] [address] Performed By: #### 5 7021-8 ####[facility] MIR[facility]AR [id number] [place] [address] [place] Platelet mean volume (Bld) [Entitic vol] 9.6 fL Normal 9.0-12.7 [facility] Comment on above: Order Comment: Speci men Type: BLOOD SPECIMENOrdering Facility: [facility] Address: [address] [place] [address] Performed By: #### 5 7021-8 ####[facility] DEVONTENCJANELLA [id number] [place] [address] [place] Platelets (Bld) [#/Vol] 312 10*3/uL Normal 150-400 [facility] Comment on above: Order Comment: Speci men Type: BLOOD SPECIMENOrdering Facility: [facility] Address: [address] [place] [address] Performed By: #### 5 7021-8 ####[facility] JANKINCLIA [id number] [place] [address] [place] RBC (Bld) [#/Vol] 4.83 10*6/uL Normal 3.90-5.20 [facility] Comment on above: Order Comment: Speci men Type: BLOOD SPECIMENOrdering Facility: [facility] Address: [address] [place] [address] Performed By: #### 5 7021-8 ####[facility]ERNCA [id number] [place] [address] [place] WBC (Bld) [#/Vol] 6.82 10*3/uL Normal 3.70-11.00 [facility] Comment on above: Order Comment: Speci men Type: BLOOD SPECIMENOrdering Facility: [facility] Address: [address] [place] [address] Performed By: #### 5 7021-8 ####[facility]ENTERNCLIA [id number] [place] [address] [place] [facility] OF [place] Comprehensive metabolic 2000 panelon 11-14-2024 Albumin [Mass/Vol] 3.7 g/dL Low 3.9-4.9 [facility] Comment on above: Order Comment: Speci men Type: BLOOD SPECIMENOrdering Facility: [facility] Address: [address] [place] [address] Performed By: #### 2 4323-8 ####[facility] MILLTOWNCLIA [id number] [place] [address] [place] ALP [Catalytic activity/Vol] 95 U/L Normal 34-123 [facility] Comment on above: Order Comment: Speci men Type: BLOOD SPECIMENOrdering Facility: [facility] Address: [address] [place] [address] Performed By: #### 2 4323-8 ####[facility]ENTERNCLIA [id number] [place] [address] [place] ALT [Catalytic activity/Vol] 9 U/L Normal 7-38 [facility] Comment on above: Order Comment: Speci men Type: BLOOD SPECIMENOrdering Facility: [facility] Address: [address] [place] [address] Performed By: #### 2 4323-8 ####[facility] HOSPITALLIA [id number] [place] [address] [place] Anion gap [Moles/Vol] 12 mmol/L Normal 8-15 [facility] Comment on above: Order Comment: Speci men Type: BLOOD SPECIMENOrdering Facility: [facility] Address: [address] [place] [address] Performed By: #### 2 4323-8 ####[facility] HOSPITALLIA [id number] [place] [address] [place] AST [Catalytic activity/Vol] 10 U/L Low 13-35 [facility] Comment on above: Order Comment: Speci men Type: BLOOD SPECIMENOrdering Facility: [facility] Address: [address] [place] [address] Performed By: #### 2 4323-8 ####[facility]ENTERNCLIA [id number] [place] [address] [place] Bilirubin [Mass/Vol] 0.3 mg/dL Normal 0.2-1.3 [facility] Comment on above: Order Comment: Speci men Type: BLOOD SPECIMENOrdering Facility: [facility] Address: [address] [place] [address] Performed By: #### 2 4323-8 ####[facility] [id number] [place] [address] [place] Calcium [Mass/Vol] 9.0 mg/dL Normal 8.5-10.2 [facility] Comment on above: Order Comment: Speci men Type: BLOOD SPECIMENOrdering Facility: [facility] Address: [address] [place] [address] Performed By: #### 2 4323-8 ####[facility] MIRAMAR [id number] [place] [address] [place] Chloride [Moles/Vol] 111 mmol/L High 98-107 [facility] Comment on above: Order Comment: Speci men Type: BLOOD SPECIMENOrdering Facility: [facility] Address: [address] [place] [address] Performed By: #### 2 4323-8 ####[facility] MIRAMAR [id number] [place] [address] [place] CO2 [Moles/Vol] 19 mmol/L Low 22-30 [facility] Comment on above: Order Comment: Speci men Type: BLOOD SPECIMENOrdering Facility: [facility] Address: [address] [place] [address] Performed By: #### 2 4323-8 ####[facility] MIRAMAR [id number] [place] [address] [place] Creatinine [Mass/Vol] 0.62 mg/dL Normal 0.58-0.96 [facility] Comment on above: Order Comment: Speci men Type: BLOOD SPECIMENOrdering Facility: [facility] Address: [address] [place] [address] Performed By: #### 2 4323-8 ####[facility]ENTERNCLI [id number] [place] [address] [place] eGFRcr SerPlBld CKD-EPI 2020 92 mL/min/1.73m??? Normal >=60 [facility] Comment on above: Order Comment: Marcelina plascencia Type: BLOOD SPECIMENOrdering Facility: [facility] Address: [address] [place] [address] Result Comment: Sonya mated Glomerular Filtration Rate (eGFR) is calculated using the 2020 CKD-EPI creatinine equation. This equation utilizes serum creatinine, sex, and age as parameters. The creatinine assay has traceable calibration to isotope dilution-mass spectrometry. Refer to KDIGO guidelines for clinical interpretation. In patients with unstable renal function, e.g. those with acute kidney injury, the eGFR may not accurately reflect actual GFR. Performed By: #### 2 4323-8 ####[facility]ENTERNCL[facility] [id number] [place] [address] [place] Glucose [Mass/Vol] 137 mg/dL High 74-99 [facility] Comment on above: Order Comment: Marcelina plascencia Type: BLOOD SPECIMENOrdering Facility: [facility] Address: [address] [place] [address] Result Comment: The [place] Diabetes Association (ADA) provides guidance for cutoff values for fasting glucose and random glucose. The ADA defines fasting as no caloric intake for at least 8 hours. Fasting plasma glucose results between 100 to 125 mg/dL indicate increased risk for diabetes (prediabetes). Fasting plasma glucose results greater than or equal to 126 mg/dL meet the criteria for diagnosis of diabetes. In the absence of unequivocal hyperglycemia, results should be confirmed by repeat testing. In a patient with classic symptoms of hyperglycemia or hyperglycemic crisis, random plasma glucose results greater than or equal to 200 mg/dL meet the criteria for diagnosis of diabetes. Reference: Standards of Medical Care in Diabetes 2016, [place] Diabetes Association. Diabetes Care. 2016.39(Suppl 1). Performed By: #### 2 4323-8 ####[facility] MILL[facility]OWNCLIA [id number] [place] [address] [place] Potassium [Moles/Vol] 4.2 mmol/L Normal 3.7-5.1 [facility] Comment on above: Order Comment: Speci men Type: BLOOD SPECIMENOrdering Facility: [facility] Address: [address] [place] [address] Performed By: #### 2 4323-8 ####[facility] MILLWNCLIA [id number] [place] [address] [place] Protein [Mass/Vol] 6.3 g/dL Normal 6.3-8.0 [facility] Comment on above: Order Comment: Speci men Type: BLOOD SPECIMENOrdering Facility: [facility] Address: [address] [place] [address] Performed By: #### 2 4323-8 ####[facility] HOSPITALLIA [id number] [place] [address] [place] Sodium [Moles/Vol] 142 mmol/L Normal 136-144 [facility] Comment on above: Order Comment: Speci men Type: BLOOD SPECIMENOrdering Facility: [facility] Address: [address] [place] [address] Performed By: #### 2 4323-8 ####[facility]ENTER[facility]CLIA [id number] [place] [address] [place] Urea nitrogen [Mass/Vol] 19 mg/dL Normal 7-21 [facility] Comment on above: Order Comment: Speci men Type: BLOOD SPECIMENOrdering Facility: [facility] Address: [address] [place] [address] Performed By: #### 2 4323-8 ####[facility] [id number] [place] [address] [place] HbA1c (Bld)on 11-14-2024 Average glucose Estimated from glycated hemoglobin (Bld) [Mass/Vol] 137 mg/dL Normal [facility] Comment on above: Order Comment: Marcelina plascencia Type: BLOOD SPECIMENOrdering Facility: [facility] Address: [address] [place] [address] Result Comment: eAG: (Estimated average glucose) is a calculated value from HgbA1c and is farm loan representative of the average blood glucose level in the last 2-3 month period. Performed By: #### 5 5454-3 ####[facility] LABCLIA [id number] [address] [place] HbA1c (Bld) [Mass fraction] 6.4 % High 4.3-5.6 [facility] Comment on above: Order Comment: Marcelina plascencia Type: BLOOD SPECIMENOrdering Facility: [facility] Address: [address] [place] [address] Result Comment: [place] Diabetes Association guidelines indicate that patients with HgbA1c in the range 5.7-6.4% are at increased risk for development of diabetes, and intervention by lifestyle modification may be beneficial. HgbA1c greater or equal to 6.5% is considered diagnostic of diabetes. Performed By: #### 5 5454-3 ####[facility] LABCLIA [id number] [address] OF [facility] Lipid 1996 panelon 5 Cholesterol [Mass/Vol] 148 mg/dL Normal <200 [facility] Comment on above: Order Comment: Marcelina plascencia Type: BLOOD SPECIMENOrdering Facility: [facility] Address: [address] [place] [address] Result Comment: <200 mg/dL, Desirable 200-239 mg/dL, Borderline high >239 mg/dL, High Performed By: #### 2 4331-1 ####[facility] LABCLIA [id number] [place] [id number] [place] [facility] [id number] [place] [address] [place]#### 3024-7, 3016-3 ####[facility] LABCLIA [id number] [place] [address] [place] Cholesterol in HDL [Mass/Vol] 35 mg/dL Low >39 [facility] Comment on above: Order Comment: Speci men Type: BLOOD SPECIMENOrdering Facility: [facility] Address: [address] [place] [address] Result Comment: 40-5 9 mg/dL, Acceptable >59 mg/dL, High: Negative risk factor for coronary heart disease <40 mg/dL, Low: Positive risk factor for coronary heart disease Performed By: #### 2 4331-1 ####[facility] LABCLIA [id number] [place] [address] [facility] [id number] [place] [address] [place]#### 3024-7, 3016-3 ####[facility] LABCLIA [id number] [place] [address] [place] Cholesterol in LDL [Mass/Vol] 82 mg/dL Normal <100 [facility] Comment on above: Order Comment: Speci men Type: BLOOD SPECIMENOrdering Facility: [facility] Address: [address] [place] [address] Result Comment: <100 mg/dL, Optimal 100-129 mg/dL, Near optimal/above optimal 130-159 mg/dL, Borderline high 160-189 mg/dL, High >189 mg/dL, Very high Secondary prevention optimal LDL Cholesterol levels are recommended to be <70 mg/dL LDL cholesterol is calculated using the Phillips-NIH equation. Performed By: #### 2 4331-1 ####[facility] LABCLIA [id number] [address] [address] [facility] [id number] [address] OF [place]#### 3024-7, 3016-3 ####[facility] LABCLIA [id number] [address] [address] [place] Cholesterol in LDL/Cholesterol in HDL [Mass ratio] 2.34 {ratio} Normal <2.54 [facility] Comment on above: Order Comment: Speci men Type: BLOOD SPECIMENOrdering Facility: [facility] Address: [address] [place] [address] Result Comment: Refe rence: 1. National Cholesterol Education Program ATP III Guideline At-A-Glance Quick Desk Reference: National Heart, Lung, and Blood [place]. National Institutes of Health. 2001: NIH Publication No. 01-3305. 2. An International Atherosclerosis Society position paper: global recommendations for the management of dyslipidemia: executive summary, Atherosclerosis. 2014: 232(2):410-413. Performed By: #### 2 4331-1 ####[facility] LABCLIA [id number] [address] [address] [place] [facility] [id number] [place] [address] [place]#### 3024-7, 6-3 ####[facility] LABCLIA [id number] [address] [address] [place] Cholesterol in VLDL [Mass/Vol] 28 mg/dL Normal <30 [facility] Comment on above: Order Comment: Speci men Type: BLOOD SPECIMENOrdering Facility: [facility] Address: [address] [place] [id number] Performed By: #### 2 4331-1 ####[facility] LABCLIA [id number] [address] [place] [address] [place] [facility] [id number] [place] [address] [place]#### 3024-7, 3016-3 ####[facility] LABCLIA [id number] [address] [place] [address] [place] Cholesterol non HDL [Mass/Vol] 113 mg/dL Normal <130 [facility] Comment on above: Order Comment: Speci men Type: BLOOD SPECIMENOrdering Facility: [facility] Address: [address] [place], [place] [address] Result Comment: <130 mg/dL, Optimal 130-159 mg/dL, Near optimal/above optimal 160-189 mg/dL, Borderline high 190-219 mg/dL, High >219 mg/dL, Very high Secondary prevention optimal non HDL Cholesterol levels are recommended to be <100 mg/dL Performed By: #### 2 4331-1 ####[facility] LABCLIA [id number] [address] [place] [address] [place] [facility] [id number] [place] [address] [place]#### 3024-7, 6-3 ####[facility] LABCLIA [id number] [address], [facility]95 [place] Cholesterol.total/Cholest tobi in HDL [Mass ratio] 4.23 {ratio} Normal <5.[address] [facility] Comment on above: Order Comment: Speci men Type: BLOOD SPECIMENOrdering Facility: [facility] Address: [address] [place], [place] [address] Performed By: #### 2 4331-1 ####[facility] LABCLIA [id number] [address] [address] [place] [facility] [id number] [place] [address] [place]#### 3024-7, 3016-3 ####[facility] LABCLIA [id number] [address] [address] [place] FASTING TIME 12 hrs Normal [facility] Comment on above: Order Comment: Speci men Type: BLOOD SPECIMENOrdering Facility: [facility] Address: [address] [place] [address] Performed By: #### 2 4331-1 ####[facility] LABCLIA [id number] [address] [address] [place] [facility] [id number] [place] [address] [place]#### 3024-7, 3016-3 ####[facility] LABCLIA [id number] [place] [address] [place] Triglyceride [Mass/Vol] 183 mg/dL High <150 C [facility] Comment on above: Order Comment: Speci men Type: BLOOD SPECIMENOrdering Facility: [facility] Address: [address] [place] [address] Result Comment: <150 mg/dL, Normal 150-199 mg/dL, Borderline high 200-499 mg/dL, High >499 mg/dL, Very high Performed By: #### 2 4331-1 ####[facility] LABCLIA [id number] [place] [address] [place] [facility] [id number] [place] [address] [place]#### 3024-7, 3016-3 ####[facility] LABCLIA [id number] [address] [address] [place] T4 Free SerPl-mCncon 11-14- 025 Free T4 [Mass/Vol] 1.4 ng/dL Normal 0.9-1.7 [facility] Comment on above: Order Comment: Speci men Type: BLOOD SPECIMENOrdering Facility: [facility] Address: [address] [place], [place] [address] Performed By: #### 2 4331-1 ####[facility] LABCLIA [id number] [place] [address] [facility] [id number] [place] [address] [place]#### 3024-7, 3016-3 ####[facility] [id number] [place] [address] [place] TSH SerPl-aCncon 11-14-2024 TSH Qn 0.133 m[IU]/L Low 0.270-4.20 0 [facility] Comment on above: Order Comment: Speci men Type: BLOOD SPECIMENOrdering Facility: [facility] Address: [address] [place] [address] Performed By: #### 2 4331-1 ####[facility] [id number] [address] [id number] [address] OF [place]#### 3024-7, 3016-3 ####[facility] LABIA [id number] [place] [address] [employer] OF [place] Chris 11-06-2024 CNPN Telephone ([facility] ----- NGUYEN QUEEN ([id number]) 1945 F Date Time Provider Department 11/06/24 JEFF SIMEON [facility] During your visit today, we recorded the following information about you: Clari Bojorquez 11/06/2024 10:26 AM Signed Patient is asking that lab orders be placed so she can do her labs on November 14, prior to her Nov [address] Simeon. Please assist. Jahaira Campo APRN.CNP 11/06/2024 12:04 PM Signed Routine lab work is placed. These should be fasting and completed a few days prior to upcoming appointment so results can be discussed. FYI: Additional labs may be added based on discussion at upcoming appointment. Take careJahaira APRN.CNP Dawson, Alyson Taylor, APRN.CNP 11/06/2024 12:04 PM Signed Addended by: JAHAIRA CAMPO on: 11/06/2024 12:04 PM Modules accepted: Orders Allergies As of Date: 11/06/2024 Noted Allergy Reaction BENADRYL (DIPHENHYDRAMINE HCL) 05/17/2015 7 - Swelling PENICILLINS 05/17/2015 12 - Shortness of Breath [id number] REDUCTASE INHIBIT*09/28/2015 15 - Contraindication-Medical Lester* Comments: History of liver failure Date Reviewed: 02/14/2024 Reviewed by: Karson Woodward APRN.CNP - Fully Assessed Reason for Visit: Orders [681] Primary Visit Diagnosis:Vitamin D deficiency [E55.9] Other Visit Diagnoses: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, E78.1] Hypertriglyceridemia [E78.1] Hypothyroidism, acquired [E03.9] Order(s):THYROID STIMULATING HORMONE [SQTSH] Order #: [id number] FUTURE T4 FREE/FREE THYROXINE [SQFT4] Order #: [id number] FUTURE COMPREHENSIVE METABOLIC PANEL [SQCMP] Order #: [id number] FUTURE COMPLETE BLOOD COUNT AND DIFFERENTIAL [SQCBCDIF] Order #: [id number] FUTURE VITAMIN D 25 HYDROXY [SQVITD] Order #: [id number] FUTURE LIPID PANEL, FASTING [SQLIPB] Order #: [id number] FUTURE HEMOGLOBIN A1C [SDZPP5H] Order #: [id number] FUTURE Prescriptions as of 11/06/2024 - lancets (ONE TOUCH DELICA) 33 gauge Test blood sugar(s) twice daily. Dx: Type 2 DM - Controlled E11.9 Insulin: No - levothyroxine (LEVOXYL) 150 mcg tablet Take 1 tablet 3 days a week and take 1.5 tablets 4 days a week. Take on empty stomach. For Thyroid. - metFORMIN (GLUCOPHAGE) 500 mg tablet Take 1 tablet by mouth two times a day with meals. - blood sugar diagnostic (ONETOUCH ULTRA TEST) test strip Use with blood glucose test three times a day. Insulin Dep? Yes - losartan (COZAAR) 50 mg tablet Take 1 tablet by mouth once daily. - blood sugar diagnostic (BLOOD GLUCOSE TEST) test strip Test blood sugar(s) 2 times daily. Dx: Type 2 DM - Controlled E11.9 Insulin: No - glimepiride (AMARYL) 2 mg tablet Take 1 tablet by mouth daily with breakfast. - ferrous sulfate 325 mg (65 mg iron) tablet Take 1 tablet by mouth every other day. - lancets 30 gauge Use with blood glucose test once daily Delcia plus - ONETOUCH DELICA LANCETS 30 gauge TEST BLOOD SUGAR(S) TEST BLOOD SUGARS TWICE DAILY. DX: TYPE 2 DM - CONTROLLED E11.9 INSULIN: NO Delecia - Lancets (ONETOUCH ULTRASOFT LANCETS) lancets Use once daily as directed E11.9 - blood sugar diagnostic (ONETOUCH ULTRA TEST STRIP) test strip Type 2 diabetes, no insulin, well controlled, Use as instructed - Blood-Glucose Meter monitoring kit Glucose Meter of Choice - Kit - Dx: Type 2 DM - Controlled E11.9 Problem List As Of Date 11/06/2024 Noted Resolved Essential hypertension with goal blood pressure*05/17/2015 Diabetes mellitus type 2, controlled, without c*05/17/2015 08/23/2020 Hypothyroidism, acquired [E03.9] 10/06/2016 Hypertriglyceridemia [E78.1] 04/13/2017 Obesity, Class II, BMI 35-39.9 [E66.812] 04/13/2017 03/02/2023 Right rotator cuff tendinitis [M75.81] 10/16/2017 Peripheral neuropathy [G62.9] 01/21/2018 08/22/2021 Controlled type 2 diabetes mellitus without com*01/21/2018 09/04/2022 Fecal occult blood test positive [R19.5] 01/21/2018 Blood in stool [K92.1] 01/21/2018 Obesity, Class III, BMI >= 40 [E66.813] 02/26/2018 08/23/2020 Vitamin D deficiency [E55.9] 02/19/2019 Vitamin B12 deficiency [E53.8] 02/20/2020 Chronic pain of right ankle [M25.571, G89.29] 08/25/2020 Bilateral hip pain [M25.551, M25.552] 08/25/2020 Chronic midline low back pain without sciatica *08/25/2020 Atypical squamoproliferative skin lesion [D49.2]08/25/2020 Osteoarthritis of back [M47.9] 09/06/2020 Absolute anemia [D64.9] 05/31/2021 Fatigue [R53.83] 05/31/2021 Malabsorption syndrome [K90.9] 05/31/2021 Iron deficiency [E61.1] 11/15/2021 Uncontrolled type 2 diabetes mellitus with hype*11/15/2021 RUQ abdominal pain [R10.11] 05/26/2022 Calculus of gallbladder without cholecystitis w*05/26/2022 Fatty liver [K76.0] 05/26/2022 Type 2 diabetes mellitus with hypertriglyceride* 023 Elevated alkaline phosphatase level [R74.8] 09/05/2022 Colon neoplasm [D49.0] more content not included)... Normal [facility] Gastroenterology Visit Repor ton 11-04-2024 Gastroenterology Visit Report [facility] Gastroenterology [address] [place] [address] OFFICE VISIT Date of Service: 11/04/24 MR#: [id number] Acct: [id number] Name: NGUYEN QUEEN Rep #: [id number] : 1945 Provider: Jarrell Crystal DO Age/Sex: 79/F Location: [facility] Status: Signed Intake Vital Signs 04/29/24 13:13 10/23/24 14:05 Height 5 ft 3 in 5 ft 3 in Weight: 173 lb 9 oz BMI 30.7 BP 111/73 Blood Pressure Location Lt brachial Position Sitting Respiration 18 Pulse 75 Pulse Source Monitor Temp 98 F Pulse Oximetry (%) 96 Oxygen Delivery Method room air Intake Visit Reasons: 6 M FU Chief Complaint: 6 M f/u Wool Hanker Required: No Is patient in pain?: No Allergies Corticosteroids (Glucocorticoids) (steroids) Allergy (Severe, Verified 11/04/24 11:30) Shortness of breath acetaminophen (From Tylenol) Allergy (Intermediate, Verified 11/04/24 11:30) Shortness of breath aspirin Allergy (Intermediate, Verified 11/04/24 11:30) Shortness of breath diphenhydramine (From Benadryl) Allergy (Verified 11/04/24 11:30) PT UNSURE OF REACTION Penicillins Allergy (Verified 11/04/24 11:30) PT UNSURE OF REACTION Beef Containing Products Adverse Reaction (Verified 11/04/24 11:30) Other [place] And Derivatives Adverse Reaction (Verified 11/04/24 11:30) Other Food Allergies: Uncoded Adverse Reaction (Verified 11/04/24 11:30) Vomiting Medications ???Medication ???Instructions ???Recorded ???Confirmed ???Type glimepiride 2 mg tablet 2 mg PO DAILY diabetes 03/05/23 History levothyroxine 150 mcg tablet 150 mcg PO SUMOTU thyroid 03/05/23 11/04/24 History losartan 50 mg tablet 50 mg PO DAILY blood pressure 02/1311/04/24 History metformin 500 mg tablet 500 mg PO BID diabetes 03/05/23 History levothyroxine 150 mcg capsule 225 mcg PO WETHFRSA thyroid 11/04/24 History ferrous sulfate 325 mg (65 mg 325 mg PO .COMPLEX 05/06/24 History iron) tablet (FeroSul) cholestyramine (with sugar) 4 gram 4 g PO HS 3 months #60 ea 11/04/24 Rx powder for susp in a packet Have you fallen in the past year?: No PFSH Medical History Colon cancer Bilateral lower extremity edema Elevated CEA GI bleed Colitis Vision loss of right eye Vision loss of left eye Anemia Hypothyroidism Chronic pain Rheumatoid arthritis GERD (gastroesophageal reflux disease) Non-smoker Irregular heart beat Hypertension Migraines Seizures Diabetes mellitus Surgical History History of appendectomy Status post right hemicolectomy Hx of cholecystectomy Social History Smoking Status: Never smoker alcohol intake: never HPI HPI Chief Complaint: 6 M f/u Details: NGUYEN QUEEN, is a 79 F who presents to the office today for f/u *[facility] established 4.15.24 for repeat colonoscopy after recent diagnosis and treatment of colon adenocarcinoma and suspicion for possible inflammatory bowel disease because of elevated calprotectin. Patient is stated she always has bowel movement of once or twice a week, normal for the patient since your early teen, well formed, soft to semi solid consistency without blood or mucus. Sometimes, gastritis symptoms like dyspepsia, or bloating symptoms. No abdominal pain. No acute change in bowel movement. No fever abd/pelvis CT 8..24 Abnormal submucosal thickening of the distal transverse colon along with the entire descending colon with pericolonic inflammatory stranding but no perforation or abscess. Findings consistent with a diffuse colitis, likely infectious or inflammatory, pseudomembranous colitis can have this appearance. Focal ileus at the site of previous anastomosis in the mid transverse colon which is fluid distended but there is no wall thickening or evidence of inflammation, no bile leak is noted Fatty liver, no discrete lesion Parapelvic renal cysts, no specific follow-up needed. Subcentimeter in short axis dimension mesenteric and retroperitoneal lymph nodes likely reactive. No bulky adenopathy noted Uterus is present, the endometrium cannot be accurately evaluated with CT [facility] hospitalization 9.24 - 9.5.24 abd pain - presents with 5 days of nausea, vomiting, and diarrhea, along with black stool. abd/pelvis CT 9.3.24 Moderate colitis of the mid transverse to distal descending colon, mildly decreased from prior. Colonic diverticulosis without acute diverticulitis. Proximal colectomy. Hepatic steatosis. Small nonobstructing left renal calculus. EGD and Colonoscopy 9..24 EGD Grade I esophageal varices. Normal lower third of esophagus Friable (with contact bleeding) and gra (more content not included)... Normal [facility] Oncology Visit Reporton 10-13 Oncology Visit Report [facility] [place] [address] OFFICE VISIT Date of Service: 10/23/24 1405 MR#: [id number] Acct: [id number] Name: NGUYEN QUEEN Rep #: [id number] : 1945 From: Maco Singh MD Age/Sex: 79/F Location: [facility] Status: Signed HPI Subjective Date of Service 10/23/24 Chief Complaint F/u for anemia. History of Present Illness 79-year-old woman presented with right lower quadrant abdominal pain to [facility]. CT of the abdomen and pelvis on 03/05/2023 showed retrocecal abscess concerning for possible neoplastic perforation or diverticulitis, no evidence of metastatic disease. She underwent laparotomy with right hemicolectomy, excision of abscess on 03/06/23. She was found to have adenocarcinoma in the ascending colon with abscess formation into the pericolonic adipose tissue. MSI negative. Peritoneal fluid for cytology was negative for malignant cells. She was diagnosed with Colon cancer Stage IIA(pT3 pN0 M0) LN 20 negative. CEA on 03/06/23 was 5. She elected observation. Experienced abd pain September 2023. CEA elevated, 19.9 on 09/24/23. CT a/p with contrast performed on 10/10/[address] chest on 12/03/2023 showed R lower lobe nodule which is old. ct DNA done on 01/01/2024 was 0. She got Iron infusion with Ferrlecit from 12/13/2023 to 01/03/2024. She was found to have Iron deficiency anemia again with colitis, was given IV iron-Venofer from 03/06/2024 to 03/27/2024, with normalization of Iron profile. She is on observation and comes for follow up. Feels well. [facility] Medical History Colon cancer Bilateral lower extremity edema Elevated CEA GI bleed Colitis Vision loss of right eye Vision loss of left eye Anemia Hypothyroidism Chronic pain Rheumatoid arthritis GERD (gastroesophageal reflux disease) Non-smoker Irregular heart beat Hypertension Migraines Seizures Diabetes mellitus Surgical History History of appendectomy Status post right hemicolectomy Hx of cholecystectomy Social History Smoking Status: Never smoker alcohol intake: never Intake Vital Signs 04/17/24 14:17 04/29/24 13:13 10/23/24 14:05 Height 5 ft 3 in 5 ft 3 in 5 ft 3 in Weight: 78.727 kg BMI 30.7 BP 111/73 Blood Pressure Location Lt brachial Position Sitting Respiration 18 Pulse 75 Pulse Source Monitor Temp 98 F Temperature Source Temporal Artery Pulse Oximetry (%) 96 Oxygen Delivery Method room air Intake Accompanied by: Self Is patient in pain?: No Allergies Corticosteroids (Glucocorticoids) (steroids) Allergy (Severe, Verified 10/23/24 14:09) Shortness of breath acetaminophen (From Tylenol) Allergy (Intermediate, Verified 10/23/24 14:09) Shortness of breath aspirin Allergy (Intermediate, Verified 10/23/24 14:09) Shortness of breath diphenhydramine (From Benadryl) Allergy (Verified 10/23/24 14:09) PT UNSURE OF REACTION Penicillins Allergy (Verified 10/23/24 14:09) PT UNSURE OF REACTION Beef Containing Products Adverse Reaction (Verified 10/23/24 14:09) Other [place] And Derivatives Adverse Reaction (Verified 10/23/24 14:09) Other Food Allergies: Uncoded Adverse Reaction (Verified 10/23/24 14:09) Vomiting Medications ???Medication ???Instructions ???Recorded ???Confirmed ???Type glimepiride 2 mg tablet 2 mg PO DAILY diabetes 03/05/23 History levothyroxine 150 mcg tablet 150 mcg PO SUMOTU thyroid 03/05/23 10/23/24 History losartan 50 mg tablet 50 mg PO DAILY blood pressure 02/1310/23/24 History metformin 500 mg tablet 500 mg PO BID diabetes 03/05/23 History levothyroxine 150 mcg capsule 225 mcg PO WETHFRSA thyroid 10/23/24 History ferrous sulfate 325 mg (65 mg 325 mg PO .COMPLEX 05/06/24 History iron) tablet (FeroSul) Have you fallen in the past year?: Yes Central Venous Access Central Venous Access: No Laboratory Tests 03/06/23 03/21/23 09/24/23 04:17 11:48 07:45 WBC Hgb Hct Plt Count Absolute Neuts (auto) Absolute Lymphs (auto) Sodium Potassium Chloride Carbon Dioxide Anion Gap BUN Creatinine Glucose Calcium Phosphorus Magnesium Iron TIBC Iron Saturation Unsaturated IBC Ferritin Total Bilirubin AST ALT Alkaline Phosphatase Lactate Dehydrogenase Total Protein C-React Prot Ext Range Albumin Globulin Albumin/Globulin Ratio Carcinoembryonic Ag 5.0 H 3.9 19.9 H Vitamin B12 Folate 12/11/23 01/24/24 04/17/24 12:37 13:27 13:15 WBC 5.6 6.0 5.3 Hgb 8.9 L 10.7 L 12.5 (more content not included)... Normal [facility] Carcinoembryonic Antigenon 0 10-17-2024 CEA 4.9 ng/mL High 0.0-4.7 [facility] Comment on above: Result Comment: Nons mokers <3.9 Smokers <5.6 [facility] Electrochemiluminescence Immunoassay (ECLIA) Values obtained with different assay methods or kits cannot be used interchangeably. Results cannot be interpreted as absolute evidence of the presence or absence of malignant disease. Performed at: [employer] [employer] [address] [id number] [employer] Inspecting Dispatcher: Flako Araujo PhD, Phone: [phone] Performed By: #### L 3100.2300, L500.4050, L503.6030, L504.2610, L900.0098, L100.0100 #### [facility] Laboratory [address] [place], [address] Absolute lymphocyte countOrd ered By: Maco Singh on 10-16-2024 Lymphocytes Auto (Unsp spec) [#/Vol] 1.51 10*3/uL 0.83-4.51 [facility] Absolute neutrophil countOrd ered By: Maco Singh on 10-16-2024 Neutrophils (Bld) [#/Vol] 4.2 10*3/uL 2.0-7.7 [facility] Anion gap in Serum or Plasma Ordered By: Maco Singh on 10-16-2024 Anion gap [Moles/Vol] 12 mmol/L 5-15 [facility] Automated lymphocyte count a s percentage of total leukocytesOrdered By: Maco Nuñeznarciso on 10-16-2024 Lymphocytes/100 WBC Auto (Unsp spec) 23.2 % 19-41 [facility] BUN/creatinine ratioOrdered By: Maco Nuñeznarciso on 10-16-2024 Urea nitrogen/Creatinine [Mass ratio] 26.0 mg/mg High 10-20 [facility] Basophil percentageOrdered B y: Maco Nuñeznarciso on 10-16-2024 Basophils/100 WBC (Bld) 0.5 % 0-1 [facility] Bilirubin, totalOrdered By: Maco Nuñeznarciso on 10-16-2024 Bilirubin [Mass/Vol] 0.25 mg/dL 0.00-1.30 [facility] CBC W/Diff, Automatedon Absolute Lymph 1.51 X10 3/uL Normal 0.83-4.51 [facility] Comment on above: Performed By: #### L 3100.2300, L500.4050, L503.6030, L504.2610, L900.0098, L100.0100 #### [facility] Laboratory [address] [place], [address] Absolute Neut 4.2 X10 3/uL Normal 2.0-7.7 [facility] Comment on above: Performed By: #### L 3100.2300, L500.4050, L503.6030, L504.2610, L900.0098, L100.0100 #### [facility] Laboratory [address] [place], [address] Basophils/100 WBC (Bld) 0.5 % Normal 0-1 [facility] Comment on above: Performed By: #### L 3100.2300, L500.4050, L503.6030, L504.2610, L900.0098, L100.0100 #### [facility] Laboratory [address] [place], [address] Eosinophils/100 WBC (Bld) 2.9 % Normal 0-5 [facility] Comment on above: Performed By: #### L 3100.2300, L500.4050, L503.6030, L504.2610, L900.0098, L100.0100 #### [facility] Laboratory [address] [place], [address] Erythrocyte distribution width (RBC) [Ratio] 14.4 % Normal 11.6-14.6 [facility] Comment on above: Performed By: #### L 3100.2300, L500.4050, L503.6030, L504.2610, L900.0098, L100.0100 #### [facility] Laboratory [address] [place], [address] Hematocrit (Bld) [Volume fraction] 36.4 % Low 37-47 [facility] Comment on above: Performed By: #### L 3100.2300, L500.4050, L503.6030, L504.2610, L900.0098, L100.0100 #### [facility] Laboratory [address] [place], [address] Hemoglobin (Bld) [Mass/Vol] 11.2 g/dL Low 12.0-15.0 [facility] Comment on above: Performed By: #### L 3100.2300, L500.4050, L503.6030, L504.2610, L900.0098, L100.0100 #### [facility] Laboratory [address] [place], [address] IG% 0.500 Normal 0.0-0.9 [facility] Comment on above: Result Comment: IG% - Immature Granulocytes (promyelocytes, myelocytes and metamyelocytes) > 1% indicates that a LEFT SHIFT is Present. Performed By: #### L 3100.2300, L500.4050, L503.6030, L504.2610, L900.0098, L100.0100 #### [facility] Laboratory [address] [place], [address] Lymphocytes/100 WBC (Bld) 23.2 % Normal 19-41 [facility] Comment on above: Performed By: #### L 3100.2300, L500.4050, L503.6030, L504.2610, L900.0098, L100.0100 #### [facility] Laboratory [address] [place], [address] MCH (RBC) [Entitic mass] 24.1 pg Low 27.0-32.0 [facility] Comment on above: Performed By: #### L 3100.2300, L500.4050, L503.6030, L504.2610, L900.0098, L100.0100 #### [facility] Laboratory [address] [place], [address] MCHC (RBC) [Mass/Vol] 30.8 g/dL Low 32-36 [facility] Comment on above: Performed By: #### L 3100.2300, L500.4050, L503.6030, L504.2610, L900.0098, L100.0100 #### [facility] Laboratory [address] [place], [address] MCV (RBC) [Entitic vol] 78.4 fL Low 81-99 [facility] Comment on above: Performed By: #### L 3100.2300, L500.4050, L503.6030, L504.2610, L900.0098, L100.0100 #### [facility] Laboratory [address] [place], [address] Monocytes/100 WBC (Bld) 8.1 % Normal 0-10 [facility] Comment on above: Performed By: #### L 3100.2300, L500.4050, L503.6030, L504.2610, L900.0098, L100.0100 #### [facility] Laboratory [address] [place], [address] Neutrophils/100 WBC (Bld) 64.8 % Normal 47-70 [facility] Comment on above: Performed By: #### L 3100.2300, L500.4050, L503.6030, L504.2610, L900.0098, L100.0100 #### [facility] Laboratory [address] [place], [address] Nucleated RBC (Bld) [#/Vol] 0 10*3/uL Normal 0-5 [facility] Comment on above: Performed By: #### L 3100.2300, L500.4050, L503.6030, L504.2610, L900.0098, L100.0100 #### [facility] Laboratory [address] [place], [address] Platelet mean volume (Bld) [Entitic vol] 9.8 fL Normal 6.2-12.0 [facility] Comment on above: Performed By: #### L 3100.2300, L500.4050, L503.6030, L504.2610, L900.0098, L100.0100 #### [facility] Laboratory [address] [place], [address] Platelets (Bld) [#/Vol] 339 10*3/uL Normal 150-450 [facility] Comment on above: Performed By: #### L 3100.2300, L500.4050, L503.6030, L504.2610, L900.0098, L100.0100 #### [facility] Laboratory [address] [place], [address] RBC (Bld) [#/Vol] 4.64 10*6/uL Normal 4.2-5.4 [facility] Comment on above: Performed By: #### L 3100.2300, L500.4050, L503.6030, L504.2610, L900.0098, L100.0100 #### [facility] Laboratory [address] [place], [address] RDW SD 40.5 fl Normal 35.1-43.9 [facility] Comment on above: Performed By: #### L 3100.2300, L500.4050, L503.6030, L504.2610, L900.0098, L100.0100 #### [facility] Laboratory [address] [place], [address] WBC (Bld) [#/Vol] 6.5 10*3/uL Normal 4.4-11.0 [facility] Comment on above: Performed By: #### L 3100.2300, L500.4050, L503.6030, L504.2610, L900.0098, L100.0100 #### [facility] Laboratory [address] [place], [address] CRPon 10-16-2024 C-REACTIVE PROT < 3.00 Normal 0.0-3.0 [facility] Comment on above: Performed By: #### L 3100.2300, L500.4050, L503.6030, L504.2610, L900.0098, L100.0100 #### [facility] Laboratory [address] [place], [address] Carbon dioxide, total [Moles /volume] in Central venous bloodOrdered By: Maco Singh on 10-16-2024 CO2 [Moles/Vol] 21.7 mmol/L 21.0-32.0 [facility] Chloride assayOrdered By: Sandra Singh on 10-16-2024 Chloride [Moles/Vol] 107 mmol/L 98-108 [facility] Comprehensive Metabolic Prof ilon 10-16-2024 Albumin [Mass/Vol] 3.7 g/dL Normal 3.4-4.8 [facility] Comment on above: Performed By: #### L 3100.2300, L500.4050, L503.6030, L504.2610, L900.0098, L100.0100 #### [facility] Laboratory [address] [place], [address] Albumin/Globulin [Mass ratio] 1.4 {ratio} Normal 0.9-2.4 [facility] Comment on above: Performed By: #### L 3100.2300, L500.4050, L503.6030, L504.2610, L900.0098, L100.0100 #### [facility] Laboratory [address] [place], [address] ALK PHOS 90 U/L Normal 35-104 [facility] Comment on above: Performed By: #### L 3100.2300, L500.4050, L503.6030, L504.2610, L900.0098, L100.0100 #### [facility] Laboratory [address] [place], [address] ALT [Catalytic activity/Vol] 11 U/L Normal <=34 [facility] Comment on above: Performed By: #### L 3100.2300, L500.4050, L503.6030, L504.2610, L900.0098, L100.0100 #### [facility] Laboratory [address] [place], [address] AST [Catalytic activity/Vol] 14 U/L Normal <=31 [facility] Comment on above: Performed By: #### L 3100.2300, L500.4050, L503.6030, L504.2610, L900.0098, L100.0100 #### [facility] Laboratory [address] [place], [address] Bilirubin [Mass/Vol] 0.25 mg/dL Normal 0.00-1.30 [facility] Comment on above: Performed By: #### L 3100.2300, L500.4050, L503.6030, L504.2610, L900.0098, L100.0100 #### [facility] Laboratory [address] [place], [address] BUN/CRE 26.0 RATIO High 10-20 [facility] Comment on above: Performed By: #### L 3100.2300, L500.4050, L503.6030, L504.2610, L900.0098, L100.0100 #### [facility] Laboratory [address] [place], [address] Calcium [Mass/Vol] 9.1 mg/dL Normal 7.6-11.0 [facility] Comment on above: Performed By: #### L 3100.2300, L500.4050, L503.6030, L504.2610, L900.0098, L100.0100 #### [facility] Laboratory [address] [place], [address] Chloride [Moles/Vol] 107 mmol/L Normal 98-108 [facility] Comment on above: Performed By: #### L 3100.2300, L500.4050, L503.6030, L504.2610, L900.0098, L100.0100 #### [facility] Laboratory [address] [place], [address] CO2 [Moles/Vol] 21.7 mmol/L Normal 21.0-32.0 [facility] Comment on above: Performed By: #### L 3100.2300, L500.4050, L503.6030, L504.2610, L900.0098, L100.0100 #### [facility] Laboratory [address] [place], [address] Creatinine [Mass/Vol] 0.61 mg/dL Low 0.70-1.20 [facility] Comment on above: Performed By: #### L 3100.2300, L500.4050, L503.6030, L504.2610, L900.0098, L100.0100 #### [facility] Laboratory [address] [place], [address] ECRCL 56.72 ml/min Normal 50-250 [facility] Comment on above: Performed By: #### L 3100.2300, L500.4050, L503.6030, L504.2610, L900.0098, L100.0100 #### [facility] Laboratory [address] [place], [address] GAP 12 Normal 5-15 [facility] Comment on above: Performed By: #### L 3100.2300, L500.4050, L503.6030, L504.2610, L900.0098, L100.0100 #### [facility] Laboratory [address] [place], [address] GFR/1.73 sq M.predicted among non-blacks MDRD (S/P/Bld) [Vol rate/Area] 92 mL/min/{1.73_m2} Normal >60 [facility] Comment on above: Result Comment: mL/m in/1.73m2 CKD-EPI Creatinine Equation (2020) Performed By: #### L 3100.2300, L500.4050, L503.6030, L504.2610, L900.0098, L100.0100 #### [facility] Laboratory [address] [place], [address] Globulin (S) [Mass/Vol] 2.6 g/dL Normal 2.2-4.2 [facility] Comment on above: Performed By: #### L 3100.2300, L500.4050, L503.6030, L504.2610, L900.0098, L100.0100 #### [facility] Laboratory [address] [place], [address] Glucose [Mass/Vol] 164 mg/dL High 70-99 [facility] Comment on above: Performed By: #### L 3100.2300, L500.4050, L503.6030, L504.2610, L900.0098, L100.0100 #### [facility] Laboratory [address] [place], [address] Potassium [Moles/Vol] 4.4 mmol/L Normal 3.3-5.1 [facility] Comment on above: Performed By: #### L 3100.2300, L500.4050, L503.6030, L504.2610, L900.0098, L100.0100 #### [facility] Laboratory [address] [place], [address] Sodium [Moles/Vol] 141 mmol/L Normal 133-145 [facility] Comment on above: Performed By: #### L 3100.2300, L500.4050, L503.6030, L504.2610, L900.0098, L100.0100 #### [facility] Laboratory [address] [place], [address] T PROT 6.3 g/dL Normal 5.9-8.4 [facility] Comment on above: Performed By: #### L 3100.2300, L500.4050, L503.6030, L504.2610, L900.0098, L100.0100 #### [facility] Laboratory [address] [place], [address] Urea nitrogen [Mass/Vol] 16 mg/dL Normal 4-19 [facility] Comment on above: Performed By: #### L 3100.2300, L500.4050, L503.6030, L504.2610, L900.0098, L100.0100 #### [facility] Laboratory [address] [place], [address] Eosinophil percentageOrdered By: Maco Singh on 10-16-2024 Eosinophils/100 WBC (Bld) 2.9 % 0-5 [facility] Erythrocyte Sed Rateon 10-16 SED RATE 20 mm/hr Normal 0-30 [facility] Comment on above: Performed By: #### L 3100.2300, L500.4050, L503.6030, L504.2610, L900.0098, L100.0100 #### [facility] Laboratory [address] [place], [address] Erythrocyte distribution wid th ratioOrdered By: Maco Singh on 10-16-2024 Erythrocyte distribution width (RBC) [Ratio] 14.4 % 11.6-14.6 [facility] Erythrocyte distribution wid th standard deviationOrdered By: Maco Singh on 10-16-2024 Erythrocyte distribution width (RBC) [Ratio] 40.5 fl 35.1-43.9 [facility] Erythrocyte sedimentation ra teOrdered By: Maco Singh on 10-16-2024 ESR (Bld) [Velocity] 20 mm/h 0-30 [facility] Ferritinon 10-16-2024 Ferritin [Mass/Vol] 28 ng/mL Normal 22-378 [facility] Comment on above: Performed By: #### L 3100.2300, L500.4050, L503.6030, L504.2610, L900.0098, L100.0100 #### [facility] Laboratory [address] [place], [address] Folate [Mass/volume] in Seru m or PlasmaOrdered By: Maco Singh on 10-16-2024 Folate [Mass/Vol] 15.80 ng/mL 4.60-34.80 [facility] Folates,Serum (Folic Acid)on 10-16-2024 FOLATES,SERUM 15.80 ng/mL Normal 4.60-34.80 [facility] Comment on above: Order Comment: 1 Performed By: #### L 3100.2300, L500.4050, L503.6030, L504.2610, L900.0098, L100.0100 #### [facility] Laboratory [address] [place], [address] Glomerular filtration rate ( GFR) estimation/1.73 sq m using serum, plasma, or whole bOrdered By: Maco Singh on 10-16-2024 GFR/1.73 sq M.predicted among non-blacks MDRD (S/P/Bld) [Vol rate/Area] 92 mL/min/{1.73_m2} >60 [facility] Comment on above: mL/min/1.73m2 CKD-EP I Creatinine Equation (2020) Hematocrit Auto (Bld) [Volum e fraction]Ordered By: Maco Singh on 10-16-2024 Hematocrit (Bld) [Volume fraction] 36.4 % Low 37-47 [facility] Hemoglobin measurementOrdere d By: Maco Singh on 10-16-2024 Hemoglobin (Bld) [Mass/Vol] 11.2 g/dL Low 12.0-15.0 [facility] Immature granulocytes/100 WB C Auto (Bld)Ordered By: Maco Singh on 10-16-2024 Immature granulocytes/100 WBC (Bld) 0.500 % 0.0-0.9 [facility] Comment on above: IG% - Immature Granu locytes (promyelocytes, myelocytes and metamyelocytes) > 1% indicates that a LEFT SHIFT is Present. Iron measurement (mass/mass) Ordered By: Maco Singh on 10-16-2024 Iron (Unsp spec) [Mass/Mass] 188 ug/dL High 50-170 [facility] Iron+Iron Binding Capacityon 10-16-2024 Iron [Mass/Vol] 188 ug/dL High 50-170 [facility] Comment on above: Performed By: #### L 3100.2300, L500.4050, L503.6030, L504.2610, L900.0098, L100.0100 #### [facility] Laboratory [address] [place], [place], [address] IRON SATURATION 60.0 High 13-59 [facility] Comment on above: Performed By: #### L 3100.2300, L500.4050, L503.6030, L504.2610, L900.0098, L100.0100 #### [facility] Laboratory [address] [place], [address] TIBC 315 ug/dL Normal 250-450 [facility] Comment on above: Performed By: #### L 3100.2300, L500.4050, L503.6030, L504.2610, L900.0098, L100.0100 #### [facility] Laboratory [address] [place], [address] UIBC 127 ug/dL Low 228-428 [facility] Comment on above: Performed By: #### L 3100.2300, L500.4050, L503.6030, L504.2610, L900.0098, L100.0100 #### [facility] Laboratory [address] [place], [address] LDHon 10-16-2024 LDH 112 U/L Normal 84-246 [facility] Comment on above: Order Comment: 1 Performed By: #### L 3100.2300, L500.4050, L503.6030, L504.2610, L900.0098, L100.0100 #### [facility] [address] [place], [address] Laboratory - Chemistry and C hemistry - challengeOrdered By: Maco Singh on 10-16-2024 AST [Catalytic activity/Vol] 14 U/L <32 [facility] Lactate dehydrogenase (LDH) measurementOrdered By: Maco Singh on 10-16-2024 LDH [Catalytic activity/Vol] 112 U/L 84-246 [facility] MCV (mean corpuscular volume ) determinationOrdered By: Maco Singh on 10-16-2024 MCV (RBC) [Entitic vol] 78.4 fL Low 81-99 [facility] Mean corpuscular hemoglobin (MCH) determinationOrdered By: Maco Singh on 10-16-2024 MCH (RBC) [Entitic mass] 24.1 pg Low 27.0-32.0 [facility] Mean corpuscular hemoglobin concentration (MCHC) determinationOrdered By: Maco Singh on 10-16-2024 MCHC (RBC) [Mass/Vol] 30.8 g/dL Low 32-36 [facility] Mean platelet volume determi nationOrdered By: Maco Singh on 10-16-2024 Platelet mean volume (Bld) [Entitic vol] 9.8 fL 6.2-12.0 [facility] Monocyte percentageOrdered B y: Maco Singh on 10-16-2024 Monocytes/100 WBC (Bld) 8.1 % 0-10 [facility] Neutrophil percentageOrdered By: Maco Singh on 10-16-2024 Neutrophils/100 WBC (Bld) 64.8 % 47-70 [facility] No Panel InformationOrdered By: Maco Singh on 10-16-2024 Unsaturated Iron Binding Capacity 127 ug/dL Low 228-428 [facility] Nucleated red blood cell per centageOrdered By: Maco Singh on 10-16-2024 Nucleated RBC/100 WBC (Bld) [Ratio] 0 % 0-5 [facility] Platelet countOrdered By: Sandra Singh on 10-16-2024 Platelets (Bld) [#/Vol] 339 10*3/uL 150-450 [facility] Potassium measurement (mass/ volume)Ordered By: Maco Singh on 10-16-2024 Potassium (Unsp spec) [Mass/Vol] 4.4 mmol/L 3.3-5.1 [facility] RBC Auto (Bld) [#/Vol]Ordere d By: Maco Singh on 10-16-2024 RBC (Bld) [#/Vol] 4.64 10*6/uL 4.2-5.4 [facility] Retic Panelon 10-16-2024 IM RET FRACTION 11.70 Normal 3.00-15.90 [facility] Comment on above: Performed By: #### L 3100.2300, L500.4050, L503.6030, L504.2610, L900.0098, L100.0100 #### [facility] Laboratory [address] [place], [address] RET-HE 26.8 pg Low 30-35 [facility] Comment on above: Performed By: #### L 3100.2300, L500.4050, L503.6030, L504.2610, L900.0098, L100.0100 #### [facility] [address] [place], [address] Retic Count 1.56 High 0.5-1.5 [facility] Comment on above: Performed By: #### L 3100.2300, L500.4050, L503.6030, L504.2610, L900.0098, L100.0100 #### [facility] [facility] [address] [place], [place], [address] Reticulocyte hemoglobin equi valent (RET-He) measurementOrdered By: Maco Singh on 10-16-2024 Hemoglobin (Reticulocytes) [Entitic mass] 26.8 pg Low 30-35 [facility] Reticulocytes Auto (Bld) [#/ Vol]Ordered By: Maco Singh on 10-16-2024 Reticulocytes/100 RBC (Bld) 1.56 % High 0.5-1.5 [facility] Serum creatinine measurement (mass/volume)Ordered By: Maco Singh on 10-16-2024 Creatinine [Mass/Vol] 0.61 mg/dL Low 0.70-1.20 [facility] Serum globulin measurementOr dered By: Maco Singh on 10-16-2024 Globulin (S) [Mass/Vol] 2.6 g/dL 2.2-4.2 [facility] Serum glucose measurement (m ass/volume)Ordered By: Maco Singh on 10-16-2024 Glucose [Mass/Vol] 164 mg/dL High 70-99 [facility] Serum or plasma C reactive p rotein measurement (mass/volume)Ordered By: Maco Singh on 10-16-2024 CRP [Mass/Vol] mg/L 0.0-3.0 [facility] Serum or plasma alanine cuellar otransferase (ALT) measurementOrdered By: Maco Singh on 10-16-2024 ALT [Catalytic activity/Vol] 11 U/L <35 [facility] Serum or plasma albumin pj urement (mass/volume)Ordered By: Maco Singh on 10-16-2024 Albumin [Mass/Vol] 3.7 g/dL 3.4-4.8 [facility] Serum or plasma albumin/glob ulin mass ratioOrdered By: Maco Singh on 10-16-2024 Albumin/Globulin [Mass ratio] 1.4 {ratio} 0.9-2.4 [facility] Serum or plasma alkaline miriam sphatase measurementOrdered By: Maco Singh on 10-16-2024 ALP [Catalytic activity/Vol] 90 U/L 35-104 [facility] Serum or plasma calcium pj urement (mass/volume)Ordered By: Maco Singh on 10-16-2024 Calcium [Mass/Vol] 9.1 mg/dL 7.6-11.0 [facility] Serum or plasma carcinoembry onic antigen measurement (mass/volume)Ordered By: Maco Singh on 10-16-2024 Carcinoembryonic Ag [Mass/Vol] 4.9 ng/mL High 0.0-4.7 [facility] Comment on above: Nonsmokers <3.9 Smok ers <5.6[employer] Electrochemiluminescence Immunoassay(ECLIA)Values obtained with different assay methods or kitscannot be used interchangeably. Results cannot beinterpreted as absolute evidence of the presence orabsence of malignant disease.Performed at: [facility] [address] [id number] Director: Flako Araujo PhD, Phone: [phone] Serum or plasma ferritin nunu surement (mass/volume)Ordered By: Maco Singh on 10-16-2024 Ferritin [Mass/Vol] 28 ng/mL 22-378 [facility] Serum or plasma iron saturat ion measurement (mass fraction)Ordered By: Maco Singh on 10-16-2024 Iron saturation [Mass fraction] 60.0 % High 13-59 [facility] Serum or plasma urea nitroge n measurement (mass/volume)Ordered By: Maco Singh on 10-16-2024 Urea nitrogen [Mass/Vol] 16 mg/dL 4-19 [facility] Sodium levelOrdered By: Trey Singh on 10-16-2024 Sodium [Moles/Vol] 141 mmol/L 133-145 [facility] Total proteinOrdered By: Uli Singh on 10-16-2024 Protein [Mass/Vol] 6.3 g/dL 5.9-8.4 [facility] Vitamin B12on 10-16-2024 Cobalamin (Vitamin B12) [Mass/Vol] 302 pg/mL Normal 180-914 [facility] Comment on above: Result Comment: AMENDED REPORT 10/16/24922 Vitamin B12 previously reported as: 326 pg/mL Performed By: #### L 3100.2300, L500.4050, L503.6030, L504.2610, L900.0098, L100.0100 #### [facility] [address] [facility] [place], [address] Vitamin B12 ser/plasOrdered By: Maco Singh on 10-16-2024 Cobalamin (Vitamin B12) [Mass/Vol] 302 pg/mL 180-914 [facility] Comment on above: Previous reported re sult: 326 pg/mLEdited by: CHERI on 10/16/24:09 AMENDED REPORT 10/16/24922 Vitamin B12 previously reported as: 326 pg/mL White blood cell (WBC) count Ordered By: Maco Singh on 10-16-2024 WBC (Bld) [#/Vol] 6.5 10*3/uL 4.4-11.0 [facility] SCRN MAMM (CAD)W/FLOR BILATo n 05-30-2024 SCRN MAMM (CAD)W/FLOR BILAT [facility] Imaging Services [address] [place], [place] [id number] SCRN MAMM (CAD)W/FLOR BILAT MR#: [id number] Acct: [id number] Name: NGUYEN QUEEN Rep #: [id number] : 1945 F 79 From: Emily Thornton MD PCP: Dr. Jeff Simeon, DO Status: REG CLI Study: SCRN MAMM (CAD)W/FLOR BILAT Date of Exam: 05/13 10/06 Exam# [id number] Ordering Dr: Jeff Simeon DO EXAM: SCRN MAMM (CAD)W/FLOR BILAT 05/30/2024 CLINICAL HISTORY: F, Age 79 y/o , SCREENING TECHNIQUE: Bilateral screening digital breast tomosynthesis with 2D and 3D images. Computer aided detection. COMPARISON: Prior exam(s) dated 2023, 05/22/2022. FINDINGS: TISSUE DENSITY: The breast tissue is composed of scattered area of fibroglandular density. Bilateral Breast Mammographic Findings: No significant masses, calcifications or other abnormalities are identified. BI/SCRN MAMM (CAD)W/FLOR BILAT IMPRESSION: Right Breast: BIRADS 1 NEGATIVE. Left Breast: BIRADS 1 NEGATIVE. OVERALL FINAL ASSESSMENT: BIRADS 1 NEGATIVE. RECOMMENDATION: Routine annual follow-up in 1 Year A letter with findings and recommendations will be mailed to the patient. Reading Location: [facility] CC: Dr. Jeff Simeon DO Orthopaedic Technologist: Signed Normal [facility] 25([place])D3 [facility] 25-hydroxyvitamin D3 [Mass/Vol] 17.7 ng/mL Low 31.0-80.0 [facility] Comment on above: Order Comment: Speci men Type: BLOOD SPECIMENOrdering Facility: [facility] Address: [address] [place] [address] Result Comment: Clas sification of 25 [place] Vitamin D status: Deficiency/Insufficiency: < or = 30 ng/ml. Sufficiency/Optimal Levels: 31-80 ng/mL Toxicity: > 100 ng/mL. Test performed by chemiluminescent immunoassay. Performed By: #### 1 989-3 ####[facility]IA [id number] [place] [address] [place] CNOVon 2024 CNOV Office Visit (FAMPWS ) ----- NGUYEN QUEEN ([id number]) 1945 F Date Time Provider Department 05/23/24 9:40 AM JEFF SIMEONPNGA During your visit today, we recorded the following information about you: Temperature Pulse Respiration Blood pressure 97 degrees 80/minute 16/minute 124/60 Weight 75.8 kg Jeff Simeon, DO 2024 10:54 AM Signed Us Patient presents with: F/U 3 Month HPI: Nguyen Queen is a 79 year old female who presents to the office today for review of health conditions. Concerns today: Iron deficiency, was given 7 treatments, feels this is helping her fatigue. Her hemoglobin when last checked 2-3 weeks ago was at 12. Vitamin b12 deficiency, last level in the 400s. Hasn't had labs rechecked. But does feel less fatigue than previously Will have follow up next with Dr. Singh for Oncologist on 10/23 and labs prior Next follow up in the next few months with [facility] Dr. Crystal as well. She is eating better and less weakness symptoms Ms. Queen has past history of diabetes. Since our last visit she denies excessive thirst or increased frequency of urination, chest pain or dyspnea , new or unusual visual symptoms, and low sugar/hypoglycemic reactions. Depression- no. Follows a diabetic diet . She is compliant with medication(s) and is tolerating med(s) without any side effects. She reports checking her glucose on a twice a day schedule with sugars in the <150 range. Patient's last HgA1C was Hemoglobin A1C (%) Date Value 02/04/2024 5.5 11/13/2023 5.9 02/15/2021 7.3 08/17/2020 7.0 ) Last Ophthalmology exam was within the past 12 months Ms. Queen reports history of hyperlipidemia. Current therapy includes diet and exercise. Denies side effects of muscle weakness or achiness. Her most recent lipid panels are reviewed. Cholesterol, Total (mg/dL) Date Value 02/04/2024 114 02/15/2021 189 HDL Cholesterol (mg/dL) Date Value 02/04/2024 44 02/15/2021 34 LDL Cholesterol (mg/dL) Date Value 02/04/2024 52 02/15/2021 122 Triglyceride (mg/dL) Date Value 02/04/2024 89 02/15/2021 165 Ms. Queen indicates a history of hypertension and states that she is feeling well and denies any symptoms referable to elevated blood pressure. Specifically denies headache, chest pain, palpitations, dyspnea, and peripheral edema. Patient denies any side effects of her medication(s) and is compliant with their regimen. Last 3 Encounter BP Readings: Date: BP: 2024 124/60 02/14/2024 118/72 11/20/2023 118/58 She watches her diet for sodium, low fat and low cholesterol some of the time. She does not check BP's generally. Nguyen gets sporadic irregular exercise. PAST MEDICAL HISTORY Diagnosis Date Advance care planning 08/24/2021 MARLEN Diabetes mellitus, type 2 (HCC) Environmental allergies Hyperlipidemia Hypothyroidism, unspecified Liver failure (HCC) 2004 unsure of cause Migraine headache onset age 7 PAST SURGICAL HISTORY Procedure Laterality Date BREAST BIOPSY NEEDLE LEFT 12/31/2014 x 2, Dr. Ronquillo COLONOSCOPY FLX DX W/COLLJ SPEC WHEN PFRMD 08/25/2003 adenomatous polyp and diverticulosis. [facility] COLONOSCOPY FLX DX W/COLLJ SPEC WHEN PFRMD 09/28/2006 No polyps found. 5 yr recall. [facility] COLONOSCOPY FLX DX W/COLLJ SPEC WHEN PFRMD 02/26/2018 Colonoscopy ESOPHAGOGASTRODUODENOSCOP Y TRANSORAL DIAGNOSTIC 08/31/2003 Unremarkable, negative biopsies. [facility] ESOPHAGOGASTRODUODENOSCOP Y TRANSORAL DIAGNOSTIC 02/26/2018 EGD LAPAROSCOPIC CHOLECYSTECTOMY 04/05/2022 REMV CATARACT EXTRACAP,INSERT LENS Bilateral TONSILLECTOMY HX Social History Tobacco Use Smoking status: Never Smokeless tobacco: Never Vaping Use Vaping status: Never Used Substance Use Topics Alcohol use: No Drug use: No FAMILY HISTORY Adopted: Yes Allergies: ALLERGIES Allergen Reactions Benadryl [Diphenhyd* Swelling Penicillins Shortness of Breath Kqanqph-Cfu-Mee Red* Contraindication-Medical Surgical History of liver failure Current Meds: levothyroxine (LEVOXYL) 150 mcg tablet Take 1 tablet 3 days a week and take 1.5 tablets 4 days a week. Take on empty stomach. For Thyroid. glimepiride (AMARYL) 2 mg tablet Take 1 tablet by mouth daily with breakfast. blood sugar diagnostic (ONETOUCH ULTRA TEST) test strip Use with blood glucose test three times a day. Insulin Dep? Yes lancets (ONE TOUCH DELICA) 33 gauge Test blood sugar(s) twice daily. Dx: Type 2 DM - Controlled E11.9 Insulin: No metFORMIN (GLUCOPHAGE) 500 mg tablet Take 1 tablet by mouth two times a day with meals. ferrous sulfate 325 mg (65 mg iron) tablet Take 1 tablet by mouth every other day. lancets 30 gauge Use with blood glucose test once daily Delcia plus blood sugar diagnostic (BLOOD GLUCOSE TEST) test (more content not included)... Normal [facility] T4 Free SerPl-mCncon 025 Free T4 [Mass/Vol] 1.3 ng/dL Normal 0.9-1.7 [facility] Comment on above: Order Comment: Speci men Type: BLOOD SPECIMENOrdering Facility: [facility] Address: [address] [place] [address] Performed By: #### 2 132-9, 3024-7, 3016-3 ####[facility] [id number] [place] [address] [place] TSH SerPl-aCncon 2024 TSH Qn 0.040 m[IU]/L Low 0.270-4.20 0 [facility] Comment on above: Order Comment: Speci [facility] Type: BLOOD SPECIMENOrdering Facility: [facility] Address: [address] [place] [address] Performed By: #### 2 132-9, 3024-7, 3016-3 ####[facility] LABIA [id number] [place] [address] [place] US DVT LOWER BILon 5 US DVT LOWER CLIFF * * *Final Report* * * DATE OF EXAM: 2024 1:35PM WRU 1005 - US DVT LOWER CLIFF / PROCEDURE REASON: multiple diagnoses * * * * Physician Interpretation * * * * ULTRASOUND OF BILATERAL LEG VEINS WITH COLOR DOPPLER SCANNING HISTORY: Left leg swelling Right leg swelling COMPARISON: None available. TECHNIQUE: The deep venous system of both legs was evaluated with navas scale and color Doppler imaging. Augmentation and compression maneuvers were applied at multiple levels along the deep venous axis. RESULT: There is no evidence of thrombus in the visible deep veins of both lower extremities. The veins respond normally to compression and augmentation maneuvers. Normal venous blood flow noted on doppler exam. No superficial venous thrombosis. IMPRESSION: No deep venous thrombosis in the visualized veins of both legs. Orthopaedic Technologist: [facility] Transcribe Date/Time: 2024 1:49P Dictated by : ERIBERTO BENAVIDEZ MD This examination was interpreted and the report reviewed and electronically signed by: ERIBERTO BENAVIDEZ MD on 2024 1:51PM EST [id number] Normal [facility] US Lower extremity vein - bi lateralon 2024 IMPRESSION: No deep venous thrombosis in the visualized veins of both legs. Orthopaedic Technologist: [facility] Transcribe Date/Time: 2024 1:49P Dictated by : ERIBERTO BENAVIDEZ MD This examination was interpreted and the report reviewed and electronically signed by: ERIBERTO BENAVIDEZ MD on 2024 1:51PM EST DIVISION OF RADIOLOGY * * *Final Report* * * DATE OF EXAM: 2024 1:35PM WRU 1005 - US DVT LOWER CLIFF / PROCEDURE REASON: multiple diagnoses * * * * Physician Interpretation * * * * ULTRASOUND OF BILATERAL LEG VEINS WITH COLOR DOPPLER SCANNING HISTORY: Left leg swelling Right leg swelling COMPARISON: None available. TECHNIQUE: The deep venous system of both legs was evaluated with navas scale and color Doppler imaging. Augmentation and compression maneuvers were applied at multiple levels along the deep venous axis. RESULT: There is no evidence of thrombus in the visible deep veins of both lower extremities. The veins respond normally to compression and augmentation maneuvers. Normal venous blood flow noted on doppler exam. No superficial venous thrombosis. DIVISION OF RADIOLOGY Provider, [facility] - 2024 * * *Final Report* * * DATE OF EXAM: 2024 1:35PM WRU 1005 - US DVT LOWER CLIFF / PROCEDURE REASON: multiple diagnoses * * * * Physician Interpretation * * * * ULTRASOUND OF BILATERAL LEG VEINS WITH COLOR DOPPLER SCANNING HISTORY: Left leg swelling Right leg swelling COMPARISON: None available. TECHNIQUE: The deep venous system of both legs was evaluated with navas scale and color Doppler imaging. Augmentation and compression maneuvers were applied at multiple levels along the deep venous axis. RESULT: There is no evidence of thrombus in the visible deep veins of both lower extremities. The veins respond normally to compression and augmentation maneuvers. Normal venous blood flow noted on doppler exam. No superficial venous thrombosis. IMPRESSION IMPRESSION: No deep venous thrombosis in the visualized veins of both legs. Orthopaedic Technologist: [facility] Transcribe Date/Time: 2024 1:49P Dictated by : ERIBERTO BENAVIDEZ MD This examination was interpreted and the report reviewed and electronically signed by: ERIBERTO BENAVIDEZ MD on 2024 1:51PM EST [facility] Radiology Study observation (narrative) [facility] US Lower extremity vein - bi lateralOrdered By: [facility] Provider on 2024 [facility] Vit B12 SerPl-mCncon 025 Cobalamin (Vitamin B12) [Mass/Vol] 375 pg/mL Normal 232-1245 [facility] Comment on above: Order Comment: Speci men Type: BLOOD SPECIMENOrdering Facility: [facility] Address: [address] [place] [address] Performed By: #### 2 132-9, 3024-7, 3016-3 ####[facility] LABCLIA [id number] [place] [address] [place] Gastroenterology Visit Repor ton 05-06-2024 Gastroenterology Visit Report [facility] Gastroenterology [address] [place] [address] OFFICE VISIT Date of Service: 05/06/24 MR#: [id number] Acct: [id number] Name: NGUYEN QUEEN Rep #: [id number] : 1945 Provider: Jarrell Crystal DO Age/Sex: 78/F Location: [facility] Status: Signed Intake Vital Signs 10/17/23 14:16 04/29/24 13:13 Height 5 ft 3 in 5 ft 3 in Intake Visit Reasons: 6 M FU Allergies Corticosteroids (Glucocorticoids) (steroids) Allergy (Severe, Verified 04/17/24 14:18) Shortness of breath acetaminophen (From Tylenol) Allergy (Intermediate, Verified 04/17/24 14:18) Shortness of breath aspirin Allergy (Intermediate, Verified 04/17/24 14:18) Shortness of breath diphenhydramine (From Benadryl) Allergy (Verified 04/17/24 14:18) PT UNSURE OF REACTION Penicillins Allergy (Verified 04/17/24 14:18) PT UNSURE OF REACTION Beef Containing Products Adverse Reaction (Verified 04/17/24 14:18) Other [place] And Derivatives Adverse Reaction (Verified 04/17/24 14:18) Other Food Allergies: Uncoded Adverse Reaction (Verified 04/17/24 14:18) Vomiting Medications ???Medication ???Instructions ???Recorded ???Confirmed ???Type glimepiride 2 mg tablet 2 mg PO DAILY diabetes 03/05/23 History levothyroxine 150 mcg tablet 150 mcg PO SUMOTU thyroid 03/05/23 05/06/24 History losartan 50 mg tablet 50 mg PO DAILY blood pressure 02/1305/06/24 History metformin 500 mg tablet 500 mg PO BID diabetes 03/05/23 History levothyroxine 150 mcg capsule 225 mcg PO WETHFRSA thyroid 05/06/24 History cholestyramine (with sugar) 4 gram 4 g PO HS #60 ea 05/06/24 Rx powder for susp in a packet ferrous sulfate 325 mg (65 mg 325 mg PO .COMPLEX 05/06/24 History iron) tablet (FeroSul) Have you fallen in the past year?: No PFSH Medical History Colon cancer Bilateral lower extremity edema Elevated CEA GI bleed Colitis Vision loss of right eye Vision loss of left eye Anemia Hypothyroidism Chronic pain Rheumatoid arthritis GERD (gastroesophageal reflux disease) Non-smoker Irregular heart beat Hypertension Migraines Seizures Diabetes mellitus Surgical History History of appendectomy Status post right hemicolectomy Hx of cholecystectomy Social History Smoking Status: Never smoker alcohol intake: never HPI HPI Details: NGUYEN QUEEN, is a 78 F who presents to the office today for follow up. *[facility] established 4 for repeat colonoscopy after recent diagnosis and treatment of colon adenocarcinoma and suspicion for possible inflammatory bowel disease because of elevated calprot ectin. Patient is stated she always has bowel movement of once or twice a week, normal for the patient since your early teen, well formed, soft to semi solid consistency without blood or mucus. Sometimes, gastritis symptoms like dyspepsia, or bloating symptoms. No abdominal pain. No acute change in bowel movement. No fever abd/pelvis CT 8 Abnormal submucosal thickening of the distal transverse colon along with the entire descending colon with pericolonic inflammatory stranding but no perforation or abscess. Findings consistent with a diffuse colitis, likely infectious or inflammatory, pseudomembranous colitis can have this appearance. Focal ileus at the site of previous anastomosis in the mid transverse colon which is fluid distended but there is no wall thickening or evidence of inflammation, no bile leak is noted Fatty liver, no discrete lesion Parapelvic renal cysts, no specific follow-up needed. Subcentimeter in short axis dimension mesenteric and retroperitoneal lymph nodes likely reactive. No bulky adenopathy noted Uterus is present, the endometrium cannot be accurately evaluated with [facility] hospitalization .05.05 - 9 abd pain - presents with 5 days of nausea, vomiting, and diarrhea, along with black stool. abd/pelvis CT 9.05.05 Moderate colitis of the mid transverse to distal descending colon, mildly decreased from prior. Colonic diverticulosis without acute diverticulitis. Proximal colectomy. Hepatic steatosis. Small nonobstructing left renal calculus. EGD and Colonoscopy .06.05 EGD Grade I esophageal varices. Normal lower third of esophagus Friable (with contact bleeding) and granular mucosa in the lesser curvature. Biopsied. No gross lesions in the second portion of the duodenum. Colonoscopy Preparation of the colon was poor. Diverticulosis in the recto-sigmoid colon and in the sigmoid colon. Rule out malignancy, partially obstructing tumor at the splenic flexure, in the transverse colon, at the hepatic flexure and i (more content not included)... Normal [facility] Carcinoembryonic Antigenon 0 - CEA 6.8 ng/mL High 0.0-4.7 [facility] Comment on above: Result Comment: Nons mokers <3.9 Smokers <5.6 [employer] Electrochemiluminescence Immunoassay (ECLIA) Values obtained with different assay methods or kits cannot be used interchangeably. Results cannot be interpreted as absolute evidence of the presence or absence of malignant disease. Performed at: [employer] [employer] [facility] [id number] [employer] Inspecting Dispatcher: Flako Araujo PhD, Phone: [phone] Performed By: #### L 503.6550, L501.2300, L503.0106, L900.0098, L504.2610, L3100.2300, L500.4050, L501.5200, L503.6030, L506.0200, L100.0100 ####[facility] [address] [place], [address] Absolute neutrophil countOrd ered By: Maco Singh on 04-17-2024 Neutrophils (Bld) [#/Vol] 3.2 10*3/uL 2.0-7.7 [facility] Anion gap in Serum or Plasma Ordered By: Maco Singh on 04-17-2024 Anion gap [Moles/Vol] 11 mmol/L 5-15 [facility] BUN/creatinine ratioOrdered By: Maco Singh on 04-17-2024 Urea nitrogen/Creatinine [Mass ratio] 25.4 mg/mg High 10-20 [facility] Basophil percentageOrdered B y: Maco Singh on 04-17-2024 Basophils/100 WBC (Bld) 0.6 % 0-1 [facility] Bilirubin, totalOrdered By: Maco Singh on 04-17-2024 Bilirubin [Mass/Vol] 0.25 mg/dL 0.00-1.30 [facility] CBC W/Diff, Automatedon 03- Absolute Lymph 1.32 X10 3/uL Normal 0.83-4.51 [facility] Comment on above: Performed By: #### L 503.6550, L501.2300, L503.0106, L900.0098, L504.2610, L3100.2300, L500.4050, L501.5200, L503.6030, L506.0200, L100.0100 #### [facility] [address] [place], [place], [phone] ([phone]) Absolute Neut 3.2 X10 3/uL Normal 2.0-7.7 [facility] Comment on above: Performed By: #### L 503.6550, L501.2300, L503.0106, L900.0098, L504.2610, L3100.2300, L500.4050, L501.5200, L503.6030, L506.0200, L100.0100 #### [facility] [address] [place], [place], [phone] ([phone]) Basophils/100 WBC (Bld) 0.6 % Normal 0-1 [facility] Comment on above: Performed By: #### L 503.6550, L501.2300, L503.0106, L900.0098, L504.2610, L3100.2300, L500.4050, L501.5200, L503.6030, L506.0200, L100.0100 #### [facility] [address] [place], [place], [phone] ([phone]) Eosinophils/100 WBC (Bld) 2.3 % Normal 0-5 [facility] Comment on above: Performed By: #### L 503.6550, L501.2300, L503.0106, L900.0098, L504.2610, L3100.2300, L500.4050, L501.5200, L503.6030, L506.0200, L100.0100 #### [facility] [address] [place], [place], [phone] ([phone]) Erythrocyte distribution width (RBC) [Ratio] 15.7 % High 11.6-14.6 [facility] Comment on above: Performed By: #### L 503.6550, L501.2300, L503.0106, L900.0098, L504.2610, L3100.2300, L500.4050, L501.5200, L503.6030, L506.0200, L100.0100 #### [facility] [address] [facility] [facility] [place], [address] [phone]) Hematocrit (Bld) [Volume fraction] 41.3 % Normal 37-47 [facility] Comment on above: Performed By: #### L 503.6550, L501.2300, L503.0106, L900.0098, L504.2610, L3100.2300, L500.4050, L501.5200, L503.6030, L506.0200, L100.0100 #### [facility] Laboratory [address] [facility] [place], [address] [phone]) Hemoglobin (Bld) [Mass/Vol] 12.5 g/dL Normal 12.0-15.0 [facility] Comment on above: Performed By: #### L 503.6550, L501.2300, L503.0106, L900.0098, L504.2610, L3100.2300, L500.4050, L501.5200, L503.6030, L506.0200, L100.0100 #### [facility] Laboratory [address] [facility] [place], [address] (055) IG% 0.400 Normal 0.0-0.9 [facility] Comment on above: Result Comment: IG% - Immature Granulocytes (promyelocytes, myelocytes and metamyelocytes) > 1% indicates that a LEFT SHIFT is Present. Performed By: #### L 503.6550, L501.2300, L503.0106, L900.0098, L504.2610, L3100.2300, L500.4050, L501.5200, L503.6030, L506.0200, L100.0100 #### [facility] Laboratory [address] [place], [address] Lymphocytes/100 WBC (Bld) 24.9 % Normal 19-41 [facility] Comment on above: Performed By: #### L 503.6550, L501.2300, L503.0106, L900.0098, L504.2610, L3100.2300, L500.4050, L501.5200, L503.6030, L506.0200, L100.0100 #### [facility] Laboratory [address] [place], [address] MCH (RBC) [Entitic mass] 23.9 pg Low 27.0-32.0 [facility] Comment on above: Performed By: #### L 503.6550, L501.2300, L503.0106, L900.0098, L504.2610, L3100.2300, L500.4050, L501.5200, L503.6030, L506.0200, L100.0100 #### [facility] Laboratory [address] [place], [address] MCHC (RBC) [Mass/Vol] 30.3 g/dL Low 32-36 [facility] Comment on above: Performed By: #### L 503.6550, L501.2300, L503.0106, L900.0098, L504.2610, L3100.2300, L500.4050, L501.5200, L503.6030, L506.0200, L100.0100 #### [facility] Laboratory [address] [place], [address] MCV (RBC) [Entitic vol] 78.8 fL Low 81-99 [facility] Comment on above: Performed By: #### L 503.6550, L501.2300, L503.0106, L900.0098, L504.2610, L3100.2300, L500.4050, L501.5200, L503.6030, L506.0200, L100.0100 #### [facility] Laboratory [address] [facility] [place], [address] Monocytes/100 WBC (Bld) 11.1 % High 0-10 [facility] Comment on above: Performed By: #### L 503.6550, L501.2300, L503.0106, L900.0098, L504.2610, L3100.2300, L500.4050, L501.5200, L503.6030, L506.0200, L100.0100 #### [facility] Laboratory [address] [facility] [place], [address] Neutrophils/100 WBC (Bld) 60.7 % Normal 47-70 [facility] Comment on above: Performed By: #### L 503.6550, L501.2300, L503.0106, L900.0098, L504.2610, L3100.2300, L500.4050, L501.5200, L503.6030, L506.0200, L100.0100 #### [facility] Laboratory [address] [facility] [place], [address] Nucleated RBC (Bld) [#/Vol] 0 10*3/uL Normal 0-5 [facility] Comment on above: Performed By: #### L 503.6550, L501.2300, L503.0106, L900.0098, L504.2610, L3100.2300, L500.4050, L501.5200, L503.6030, L506.0200, L100.0100 #### [facility] Laboratory [address] [facility] [place], [address] ( Platelet mean volume (Bld) [Entitic vol] 9.8 fL Normal 6.2-12.0 [facility] Comment on above: Performed By: #### L 503.6550, L501.2300, L503.0106, L900.0098, L504.2610, L3100.2300, L500.4050, L501.5200, L503.6030, L506.0200, L100.0100 #### [facility] Laboratory [address] [place], [address] Platelets (Bld) [#/Vol] 380 10*3/uL Normal 150-450 [facility] Comment on above: Performed By: #### L 503.6550, L501.2300, L503.0106, L900.0098, L504.2610, L3100.2300, L500.4050, L501.5200, L503.6030, L506.0200, L100.0100 #### [facility] Laboratory [address] [place], [place], [phone] (827) RBC (Bld) [#/Vol] 5.24 10*6/uL Normal 4.2-5.4 [facility] Comment on above: Performed By: #### L 503.6550, L501.2300, L503.0106, L900.0098, L504.2610, L3100.2300, L500.4050, L501.5200, L503.6030, L506.0200, L100.0100 #### [facility] Laboratory [address] [place], [place], [phone] ([phone] RDW SD 44.6 fl High 35.1-43.9 [facility] Comment on above: Performed By: #### L 503.6550, L501.2300, L503.0106, L900.0098, L504.2610, L3100.2300, L500.4050, L501.5200, L503.6030, L506.0200, L100.0100 #### [facility] Laboratory [address] [place], [place], [phone] (045) WBC (Bld) [#/Vol] 5.3 10*3/uL Normal 4.4-11.0 [facility] Comment on above: Performed By: #### L 503.6550, L501.2300, L503.0106, L900.0098, L504.2610, L3100.2300, L500.4050, L501.5200, L503.6030, L506.0200, L100.0100 #### [facility] Laboratory [address] [place], [place], [phone] Calculated total iron bindin g capacityOrdered By: Maco Singh on 04-17-2024 Total Iron Binding Capacity 285 ug/dL 250-450 [facility] Carbon dioxide, total [Moles /volume] in Central venous bloodOrdered By: Maco Singh on 04-17-2024 CO2 [Moles/Vol] 23.2 mmol/L 21.0-32.0 [facility] Chloride assayOrdered By: Sandra Singh on 04-17-2024 Chloride [Moles/Vol] 107 mmol/L 98-108 [facility] Comprehensive Metabolic Prof ilon 04-17-2024 Albumin [Mass/Vol] 3.9 g/dL Normal 3.4-4.8 [facility] Comment on above: Performed By: #### L 503.6550, L501.2300, L503.0106, L900.0098, L504.2610, L3100.2300, L500.4050, L501.5200, L503.6030, L506.0200, L100.0100 ####[facility] [address] [place], [address] Albumin/Globulin [Mass ratio] 1.3 {ratio} Normal 0.9-2.4 [facility] Comment on above: Performed By: #### L 503.6550, L501.2300, L503.0106, L900.0098, L504.2610, L3100.2300, L500.4050, L501.5200, L503.6030, L506.0200, L100.0100 ####[facility] [address] [place], [place], [phone] ALK PHOS 107 U/L High 35-104 [facility] Comment on above: Performed By: #### L 503.6550, L501.2300, L503.0106, L900.0098, L504.2610, L3100.2300, L500.4050, L501.5200, L503.6030, L506.0200, L100.0100 ####[facility] [address] [place], [place], [phone] ALT [Catalytic activity/Vol] 18 U/L Normal <=34 [facility] Comment on above: Performed By: #### L 503.6550, L501.2300, L503.0106, L900.0098, L504.2610, L3100.2300, L500.4050, L501.5200, L503.6030, L506.0200, L100.0100 ####[facility] [address] [place], [place], [phone] AST [Catalytic activity/Vol] 15 U/L Normal <=31 [facility] Comment on above: Performed By: #### L 503.6550, L501.2300, L503.0106, L900.0098, L504.2610, L3100.2300, L500.4050, L501.5200, L503.6030, L506.0200, L100.0100 ####[facility] [address] [place], [place], [phone] Bilirubin [Mass/Vol] 0.25 mg/dL Normal 0.00-1.30 [facility] Comment on above: Performed By: #### L 503.6550, L501.2300, L503.0106, L900.0098, L504.2610, L3100.2300, L500.4050, L501.5200, L503.6030, L506.0200, L100.0100 ####[facility] [address] [place], [address] BUN/CRE 25.4 RATIO High 10-20 [facility] Comment on above: Performed By: #### L 503.6550, L501.2300, L503.0106, L900.0098, L504.2610, L3100.2300, L500.4050, L501.5200, L503.6030, L506.0200, L100.0100 ####[facility] [address] [place], [address] Calcium [Mass/Vol] 9.3 mg/dL Normal 7.6-11.0 [facility] Comment on above: Performed By: #### L 503.6550, L501.2300, L503.0106, L900.0098, L504.2610, L3100.2300, L500.4050, L501.5200, L503.6030, L506.0200, L100.0100 ####[facility] [address] [place], [address] Chloride [Moles/Vol] 107 mmol/L Normal 98-108 [facility] Comment on above: Performed By: #### L 503.6550, L501.2300, L503.0106, L900.0098, L504.2610, L3100.2300, L500.4050, L501.5200, L503.6030, L506.0200, L100.0100 ####[facility] [address] [place], [address] CO2 [Moles/Vol] 23.2 mmol/L Normal 21.0-32.0 [facility] Comment on above: Performed By: #### L 503.6550, L501.2300, L503.0106, L900.0098, L504.2610, L3100.2300, L500.4050, L501.5200, L503.6030, L506.0200, L100.0100 ####[facility] [address] [place], [place], [phone] Creatinine [Mass/Vol] 0.71 mg/dL Normal 0.70-1.20 [facility] Comment on above: Performed By: #### L 503.6550, L501.2300, L503.0106, L900.0098, L504.2610, L3100.2300, L500.4050, L501.5200, L503.6030, L506.0200, L100.0100 ####[facility] [address] [place], [place], [phone](090) ECRCL 57.11 ml/min Normal 50-250 [facility] Comment on above: Performed By: #### L 503.6550, L501.2300, L503.0106, L900.0098, L504.2610, L3100.2300, L500.4050, L501.5200, L503.6030, L506.0200, L100.0100 ####[facility] [address] [place], [place], [phone](643) GAP 11 Normal 5-15 [facility] Comment on above: Performed By: #### L 503.6550, L501.2300, L503.0106, L900.0098, L504.2610, L3100.2300, L500.4050, L501.5200, L503.6030, L506.0200, L100.0100 ####[facility] [address] [place], [place], [phone] GFR/1.73 sq M.predicted among non-blacks MDRD (S/P/Bld) [Vol rate/Area] 88 mL/min/{1.73_m2} Normal >60 [facility] Comment on above: Result Comment: mL/m in/1.73m2 CKD-EPI Creatinine Equation (2020) Performed By: #### L 503.6550, L501.2300, L503.0106, L900.0098, L504.2610, L3100.2300, L500.4050, L501.5200, L503.6030, L506.0200, L100.0100 ####[facility] [address] [place], [address] Globulin (S) [Mass/Vol] 3.0 g/dL Normal 2.2-4.2 [facility] Comment on above: Performed By: #### L 503.6550, L501.2300, L503.0106, L900.0098, L504.2610, L3100.2300, L500.4050, L501.5200, L503.6030, L506.0200, L100.0100 ####[facility] [address] [place], [place], [phone](182) Glucose [Mass/Vol] 87 mg/dL Normal 70-99 [facility] Comment on above: Performed By: #### L 503.6550, L501.2300, L503.0106, L900.0098, L504.2610, L3100.2300, L500.4050, L501.5200, L503.6030, L506.0200, L100.0100 ####[facility] [address] [place], [place], [phone] Potassium [Moles/Vol] 3.9 mmol/L Normal 3.3-5.1 [facility] Comment on above: Performed By: #### L 503.6550, L501.2300, L503.0106, L900.0098, L504.2610, L3100.2300, L500.4050, L501.5200, L503.6030, L506.0200, L100.0100 ####[facility] [address] [place], [place], [phone](806) Sodium [Moles/Vol] 141 mmol/L Normal 133-145 [facility] Comment on above: Performed By: #### L 503.6550, L501.2300, L503.0106, L900.0098, L504.2610, L3100.2300, L500.4050, L501.5200, L503.6030, L506.0200, L100.0100 ####[facility] [address] [place], [address] T PROT 6.9 g/dL Normal 5.9-8.4 [facility] Comment on above: Performed By: #### L 503.6550, L501.2300, L503.0106, L900.0098, L504.2610, L3100.2300, L500.4050, L501.5200, L503.6030, L506.0200, L100.0100 ####[facility] [address] [place], [address] Urea nitrogen [Mass/Vol] 18 mg/dL Normal 4-19 [facility] Comment on above: Performed By: #### L 503.6550, L501.2300, L503.0106, L900.0098, L504.2610, L3100.2300, L500.4050, L501.5200, L503.6030, L506.0200, L100.0100 ####[facility] [address] [place], [address] Eosinophil percentageOrdered By: Maco Singh on 04-17-2024 Eosinophils/100 WBC (Bld) 2.3 % 0-5 [facility] Erythrocyte distribution wid th ratioOrdered By: Maco Singh on 04-17-2024 Erythrocyte distribution width (RBC) [Ratio] 15.7 % High 11.6-14.6 [facility] Erythrocyte distribution wid th standard deviationOrdered By: Maco Singh on 04-17-2024 Erythrocyte distribution width (RBC) [Entitic vol] 44.6 fL High 35.1-43.9 [facility] Estimation of creatinine chanel aranceOrdered By: Maco Singh on 04-17-2024 Estimated Creatinine Clearance Calc 57.11 ml/min 50-250 [facility] FOLATES,SERUM (FOLIC ACID)on 04-17-2024 FOLATES,SERUM 12.00 ng/mL Normal 4.60-34.80 [facility] Comment on above: Order Comment: N Performed By: #### L 503.6550, L501.2300, L503.0106, L900.0098, L504.2610, L3100.2300, L500.4050, L501.5200, L503.6030, L506.0200, L100.0100 #### [facility] Laboratory [address] [place], [place], [phone] Ferritinon 04-17-2024 Ferritin [Mass/Vol] 111 ng/mL Normal 22-378 [facility] Comment on above: Performed By: #### L 503.6550, L501.2300, L503.0106, L900.0098, L504.2610, L3100.2300, L500.4050, L501.5200, L503.6030, L506.0200, L100.0100 ####[facility] [address] [place], [place], [phone] Folate [Mass/Vol]Ordered By: Maco Singh on 04-17-2024 Folate 12.00 ng/mL 4.60-34.80 [facility] Folate [Mass/volume] in Seru m or PlasmaOrdered By: Maco Singh on 04-17-2024 Folate [Mass/Vol] 12.00 ng/mL 4.60-34.80 [facility] GFR/1.73 sq M.predicted bola g non-blacks MDRD (S/P/Bld) [Vol rate/Area]Ordered By: Maco Singh on 04-17-2024 Estimated GFR (MDRD) Non-Af Amer 88 >60 [facility] Comment on above: mL/min/1.73m2 CKD-EP I Creatinine Equation (2020) Hematocrit Auto (Bld) [Volum e fraction]Ordered By: Maco Singh on 04-17-2024 Hematocrit (Bld) [Volume fraction] 41.3 % 37-47 [facility] Hemoglobin measurementOrdere d By: Maco Samantha on 04-17-2024 Hemoglobin (Bld) [Mass/Vol] 12.5 g/dL 12.0-15.0 [facility] Immature granulocytes/100 WB C Auto (Bld)Ordered By: Maco Singh on 04-17-2024 Immature granulocytes/100 WBC (Bld) 0.400 % 0.0-0.9 [facility] Comment on above: IG% - Immature Granu locytes (promyelocytes, myelocytes and metamyelocytes) > 1% indicates that a LEFT SHIFT is Present. Iron (Unsp spec) [Mass/Mass] Ordered By: Maco Singh on 04-17-2024 Iron [Mass/Vol] 54 ug/dL 50-170 [facility] Iron saturation [Mass fracti on]Ordered By: Maco Singh on 04-17-2024 Iron Saturation 19.0 % 15.0-55.0 [facility] Iron+Iron Binding Capacityon 04-17-2024 Iron [Mass/Vol] 54 ug/dL Normal 50-170 [facility] Comment on above: Performed By: #### L 503.6550, L501.2300, L503.0106, L900.0098, L504.2610, L3100.2300, L500.4050, L501.5200, L503.6030, L506.0200, L100.0100 ####[facility] [address] [place], [place], [phone] IRON SATURATION 19.0 Normal 15.0-55.0 [facility] Comment on above: Performed By: #### L 503.6550, L501.2300, L503.0106, L900.0098, L504.2610, L3100.2300, L500.4050, L501.5200, L503.6030, L506.0200, L100.0100 ####[facility] [address] [place], [place], [phone] TIBC 285 ug/dL Normal 250-450 [facility] Comment on above: Performed By: #### L 503.6550, L501.2300, L503.0106, L900.0098, L504.2610, L3100.2300, L500.4050, L501.5200, L503.6030, L506.0200, L100.0100 ####[facility] [address] [place], [place], [phone] UIBC 231 ug/dL Normal 228-428 [facility] Comment on above: Performed By: #### L 503.6550, L501.2300, L503.0106, L900.0098, L504.2610, L3100.2300, L500.4050, L501.5200, L503.6030, L506.0200, L100.0100 ####[facility] [address] [place], [place], [id number] L503.0106on 04-17-2024 Cobalamin (Vitamin B12) [Mass/Vol] 362 pg/mL Normal 180-914 [facility] Comment on above: Performed By: #### L 503.6550, L501.2300, L503.0106, L900.0098, L504.2610, L3100.2300, L500.4050, L501.5200, L503.6030, L506.0200, L100.0100 ####[facility] [address] [place], [place], [address] LDHon 04-17-2024 LDH 122 U/L Normal 84-246 [facility] Comment on above: Order Comment: 1 Performed By: #### L 503.6550, L501.2300, L503.0106, L900.0098, L504.2610, L3100.2300, L500.4050, L501.5200, L503.6030, L506.0200, L100.0100 ####[facility] [address] [place], [place], [phone] Laboratory - Chemistry and C hemistry - challengeOrdered By: [facility] on 04-17-2024 AST [Catalytic activity/Vol] 15 U/L <32 [facility] Lactate dehydrogenase (LDH) measurementOrdered By: [facility] on 04-17-2024 LDH [Catalytic activity/Vol] 122 U/L 84-246 [facility] Lymphocytes Auto (Unsp spec) [#/Vol]Ordered By: [facility] on 04-17-2024 Lymphocytes (Bld) [#/Vol] 1.32 10*3/uL 0.83-4.5 1 [facility] Lymphocytes/100 WBC Auto (Un sp spec)Ordered By: [facility] on 04-17-2024 Lymphocytes/100 WBC (Bld) 24.9 % 19-41 [facility] MCV (mean corpuscular volume ) determinationOrdered By: [facility] on 04-17-2024 MCV (RBC) [Entitic vol] 78.8 fL Low 81-99 [facility] Magnesiumon 04-17-2024 Magnesium [Mass/Vol] 1.7 mg/dL Normal 1.5-2.2 [facility] Comment on above: Performed By: #### L 503.6550, L501.2300, L503.0106, L900.0098, L504.2610, L3100.2300, L500.4050, L501.5200, L503.6030, L506.0200, L100.0100 ####[facility] [address] [place], [place], [phone] Magnesium (Unsp spec) [Mass/ Vol]Ordered By: [facility] on 04-17-2024 Magnesium [Mass/Vol] 1.7 mg/dL 1.5-2.2 [facility] Magnesium measurement (mass/ volume)Ordered By: [facility] on 04-17-2024 Magnesium (Unsp spec) [Mass/Vol] 1.7 mg/dL 1.5-2.2 [facility] Mean corpuscular hemoglobin (MCH) determinationOrdered By: Maco [facility] on 04-17-2024 MCH (RBC) [Entitic mass] 23.9 pg Low 27.0-32.0 [facility] Mean corpuscular hemoglobin concentration (MCHC) determinationOrdered By: Maco Singh on 04-17-2024 MCHC (RBC) [Mass/Vol] 30.3 g/dL Low 32-36 [facility] Mean platelet volume determi nationOrdered By: Maco Singh on 04-17-2024 Platelet mean volume (Bld) [Entitic vol] 9.8 fL 6.2-12.0 [facility] Miscellaneous procedureOrder ed By: Maco Singh on 04-17-2024 Miscellaneous Test Comment SEE SCANNED REPORT [facility] Monocyte percentageOrdered B y: Maco Singh on 04-17-2024 Monocytes/100 WBC (Bld) 11.1 % High 0-10 [facility] NATERAon 04-17-2024 NATURA SEE SCANNED REPORT Normal [facility] Comment on above: Performed By: #### L 503.6550, L501.2300, L503.0106, L900.0098, L504.2610, L3100.2300, L500.4050, L501.5200, L503.6030, L506.0200, L100.0100 ####[facility] [address] [place], [place], [address] Neutrophil percentageOrdered By: Maco Singh on 04-17-2024 Neutrophils/100 WBC (Bld) 60.7 % 47-70 [facility] No Panel InformationOrdered By: Maco Singh on 04-17-2024 Unsaturated Iron Binding Capacity 231 ug/dL 228-428 [facility] Nucleated red blood cell per centageOrdered By: Mcao Samantha on 04-17-2024 Nucleated RBC/100 WBC (Bld) [Ratio] 0 % 0-5 [facility] Oncology Visit Reporton Oncology Visit Report [facility] [address] [place] [address] OFFICE VISIT Date of Service: 04/17/24 1416 MR#: [id number] Acct: [id number] Name: NGUYEN QUEEN Rep #: [id number] : 1945 From: Maco Singh MD Age/Sex: 78/F Location: [facility] [place] Status: Signed HPI Subjective Date of Service 04/17/24 Chief Complaint F/u for anemia. History of Present Illness 78-year-old woman presented with right lower quadrant abdominal pain to [facility]. CT of the abdomen and pelvis on 03/05/2023 showed retrocecal abscess concerning for possible neoplastic perforation or diverticulitis, no evidence of metastatic disease. She underwent laparotomy with right hemicolectomy, excision of abscess on 03/06/23. She was found to have adenocarcinoma in the ascending colon with abscess formation into the pericolonic adipose tissue. MSI negative. Peritoneal fluid for cytology was negative for malignant cells. She was diagnosed with Colon cancer Stage IIA(pT3 pN0 M0) LN 20 negative. CEA on 03/06/23 was 5. She elected observation. Experienced abd pain September 2023. CEA elevated, 19.9 on 09/24/23. CT a/p with contrast performed on 10/10/[address] chest on 12/03/2023 showed R lower lobe nodule which is old. ct DNA done on 01/01/2024 was 0. She got Iron infusion with Ferrlecit from 12/13/2023 to 01/03/2024. She was found to have Iron deficiency anemia again with colitis, was given IV iron-Venofer from 03/06/2024 to 03/27/2024 and comes for follow up. Feels well. [facility] Medical History Colon cancer Bilateral lower extremity edema Elevated CEA GI bleed Colitis Vision loss of right eye Vision loss of left eye Anemia Hypothyroidism Chronic pain Rheumatoid arthritis GERD (gastroesophageal reflux disease) Non-smoker Irregular heart beat Hypertension Migraines Seizures Diabetes mellitus Surgical History History of appendectomy Status post right hemicolectomy Hx of cholecystectomy Social History Smoking Status: Never smoker alcohol intake: never Intake Vital Signs 01/24/24 14:37 03/27/24 08:54 04/17/24 14:17 Height 5 ft 3 in 5 ft 3 in 5 ft 3 in Weight: 73.936 kg BMI 28.8 BP 120/59 L Blood Pressure Location Lt brachial Position Sitting Respiration 18 Pulse 71 Pulse Source Monitor Temp 98.2 F Temperature Source Temporal Artery Pulse Oximetry (%) 96 Oxygen Delivery Method room air Intake Is patient in pain?: No Allergies Corticosteroids (Glucocorticoids) (steroids) Allergy (Severe, Verified 04/17/24 14:18) Shortness of breath acetaminophen (From Tylenol) Allergy (Intermediate, Verified 04/17/24 14:18) Shortness of breath aspirin Allergy (Intermediate, Verified 04/17/24 14:18) Shortness of breath diphenhydramine (From Benadryl) Allergy (Verified 04/17/24 14:18) PT UNSURE OF REACTION Penicillins Allergy (Verified 04/17/24 14:18) PT UNSURE OF REACTION Beef Containing Products Adverse Reaction (Verified 04/17/24 14:18) Other [place] And Derivatives Adverse Reaction (Verified 04/17/24 14:18) Other Food Allergies: Uncoded Adverse Reaction (Verified 04/17/24 14:18) Vomiting Medications ???Medication ???Instructions ???Recorded ???Confirmed ???Type aspirin 81 mg capsule 81 mg PO DAILY HEART 03/05/2308/06 History Held on 10/18/23. Instructions: Hold for 1 week. glimepiride 2 mg tablet 2 mg PO DAILY diabetes 03/05/23 History levothyroxine 150 mcg tablet 150 mcg PO SUMOTU thyroid 03/05/23 04/17/24 History losartan 50 mg tablet 50 mg PO DAILY blood pressure 02/1304/17/24 History metformin 500 mg tablet 500 mg PO BID diabetes 03/05/23 History famotidine 20 mg tablet (Acid 20 mg PO DAILY 10/16/23 04/17/24 H istory Controller) Held on 10/18/23. Instructions: Hold for 3 months while she is taking pantoprazole. apixaban 5 mg (74 tabs) tablets in See Rx Instructions PO PER PKG D IR 11/21/23 04/17/24 Rx a dose pack (Eliquis DVT-PE Treat #74 tabs 30D Start) Held on 01/22/24. Instructions: Ordered levothyroxine 150 mcg capsule 225 mcg PO VIKTORIA thyroid 04/17/24 History Have you fallen in the past year?: Yes Central Venous Access Central Venous Access: No Laboratory Tests 03/06/23 03/21/23 09/24/23 04:17 11:48 07:45 WBC Hgb Hct Plt Count Absolute Neuts (auto) Sodium Potassium Chloride Carbon Dioxide Anion Gap BUN Creatinine Glucose Calcium Phosphorus Magnesium Iron TIBC Iron Saturation Unsaturated IBC Ferritin Total Bilirubin AST ALT (more content not included)... Normal [facility] Phosphoruson 04-17-2024 Phosphate [Mass/Vol] 3.7 mg/dL Normal 2.7-4.5 [facility] Comment on above: Performed By: #### L 503.6550, L501.2300, L503.0106, L900.0098, L504.2610, L3100.2300, L500.4050, L501.5200, L503.6030, L506.0200, L100.0100 ####[facility] [id number] [place], [address] Platelet countOrdered By: Sandra Singh on 04-17-2024 Platelets (Bld) [#/Vol] 380 10*3/uL 150-450 [facility] Potassium (Unsp spec) [Mass/ Vol]Ordered By: Maco Singh on 04-17-2024 Potassium [Moles/Vol] 3.9 mmol/L 3.3-5.1 [facility] RBC Auto (Bld) [#/Vol]Ordere d By: Maco Singh on 04-17-2024 RBC (Bld) [#/Vol] 5.24 10*6/uL 4.2-5.4 [facility] Serum creatinine measurement (mass/volume)Ordered By: Maco Singh on 04-17-2024 Creatinine [Mass/Vol] 0.71 mg/dL 0.70-1.20 [facility] Serum globulin measurementOr dered By: Maco Singh on 04-17-2024 Globulin (S) [Mass/Vol] 3.0 g/dL 2.2-4.2 [facility] Serum glucose measurement (m ass/volume)Ordered By: Maco Singh on 04-17-2024 Glucose [Mass/Vol] 87 mg/dL 70-99 [facility] Serum or plasma alanine cuellar otransferase (ALT) measurementOrdered By: Maco Singh on 04-17-2024 ALT [Catalytic activity/Vol] 18 U/L <35 [facility] Serum or plasma albumin pj urement (mass/volume)Ordered By: Maco Singh on 04-17-2024 Albumin [Mass/Vol] 3.9 g/dL 3.4-4.8 [facility] Serum or plasma albumin/glob ulin mass ratioOrdered By: Maco Singh on 04-17-2024 Albumin/Globulin [Mass ratio] 1.3 {ratio} 0.9-2.4 [facility] Serum or plasma alkaline miriam sphatase measurementOrdered By: Maco Singh on 04-17-2024 ALP [Catalytic activity/Vol] 107 U/L High 35-104 [facility] Serum or plasma calcium pj urement (mass/volume)Ordered By: Maco Singh on 04-17-2024 Calcium [Mass/Vol] 9.3 mg/dL 7.6-11.0 [facility] Serum or plasma ferritin nunu surement (mass/volume)Ordered By: Maco Singh on 04-17-2024 Ferritin [Mass/Vol] 111 ng/mL 22-378 [facility] Serum or plasma urea nitroge n measurement (mass/volume)Ordered By: Maco Singh on 04-17-2024 Urea nitrogen [Mass/Vol] 18 mg/dL 4-19 [facility] Serum phosphorus measurement Ordered By: Maco Singh on 04-17-2024 Phosphorus Level 3.7 mg/dL 2.7-4.5 [facility] Sodium levelOrdered By: Trey Singh on 04-17-2024 Sodium [Moles/Vol] 141 mmol/L 133-145 [facility] Total proteinOrdered By: Uli Singh on 04-17-2024 Protein [Mass/Vol] 6.9 g/dL 5.9-8.4 [facility] Vitamin B12 ser/plasOrdered By: Maco Singh on 04-17-2024 Cobalamin (Vitamin B12) [Mass/Vol] 362 pg/mL 180-914 [facility] White blood cell (WBC) count Ordered By: Maco Singh on 04-17-2024 WBC (Bld) [#/Vol] 5.3 10*3/uL 4.4-11.0 [facility] CNOVon 02-14-2024 CNOV Office Visit (FAMPWS ) ----- NGUYEN QUEEN ([id number]) 1945 F Date Time Provider Department 02/14/24 10:20 AM [facility] During your visit today, we recorded the following information about you: Pulse Respiration Blood pressure Weight 89/minute 16/minute 118/72 73.2 kg Karson Woodward APRN.ELECTRICAL ENGINEERING DIRECTOR 02/14/2024 2:41 PM Signed Chief Complaint Patient presents with: F/U 3 Month: DM follow up HPI Nguyen Belen Bret is a 78 year old female who presents here today for Above Complaints.. DM-controlled. Denies increased thirst or urination. Now that cancer is gone feels great, doesn't catch flu/colds/etc, lots of energy, overall no complaints. Iron infusions-ordered by Dr. Singh. This makes her feel much better. Tries not to eat fruits like he says, but does have some here and there. Weight-is working to lose it. Cannot eat 3 meals/day-stomach won't hold this. Can only get 2-3 bites in when she eats-but does seem to graze during the day-piece of cheese, etc.-no sweets. Right calf DVT-Dr. Singh prescribed her Eliquis for this and she took it for one month and hasn't anymore. She doesn't think she has to take it anymore than this. States can't afford it anyway. Sees Dr. Singh in another month or so. Vitamin D-knows it is low but states at [facility] tried to give this to her and she can't tolerate it-overall just makes her very sick. Past medical history, appointments, medications, allergies reviewed. Previous Medical History PAST MEDICAL HISTORY Diagnosis Date Advance care planning 08/24/2021 [facility] Diabetes mellitus, type 2 (HCC) Environmental allergies Hyperlipidemia Hypothyroidism, unspecified Liver failure (HCC) 2004 unsure of cause Migraine headache onset age 7 Previous Surgical History PAST SURGICAL HISTORY Procedure Laterality Date BREAST BIOPSY NEEDLE LEFT 12/31/2014 x 2, Dr. Ronquillo COLONOSCOPY FLX DX W/COLLJ SPEC WHEN PFRMD 08/25/2003 adenomatous polyp and diverticulosis. [facility] COLONOSCOPY FLX DX W/COLLJ SPEC WHEN PFRMD 09/28/2006 No polyps found. 5 yr recall. [facility] COLONOSCOPY FLX DX W/COLLJ SPEC WHEN PFRMD 02/26/2018 Colonoscopy ESOPHAGOGASTRODUODENOSCOP Y TRANSORAL DIAGNOSTIC 08/31/2003 Unremarkable, negative biopsies. [facility] ESOPHAGOGASTRODUODENOSCOP Y TRANSORAL DIAGNOSTIC 02/26/2018 EGD LAPAROSCOPIC CHOLECYSTECTOMY 04/05/2022 REMV CATARACT EXTRACAP,INSERT LENS Bilateral TONSILLECTOMY HX Family History FAMILY HISTORY Adopted: Yes Patient Allergies ALLERGIES Allergen Reactions Benadryl [Diphenhyd* Swelling Penicillins Shortness of Breath Lwuahrs-Omj-Ocx Red* Contraindication-Medical Surgical History of liver failure Current Medications Current Outpatient Medications on File Prior to Visit Medication Sig levothyroxine (LEVOXYL) 150 mcg tablet Take 1 tablet 3 days a week and take 1.5 tablets 4 days a week. Take on empty stomach. For Thyroid. metFORMIN (GLUCOPHAGE) 500 mg tablet Take 1 tablet by mouth two times a day with meals. ferrous sulfate 325 mg (65 mg iron) tablet Take 1 tablet by mouth every other day. lancets 30 gauge Use with blood glucose test once daily Delcia plus blood sugar diagnostic (BLOOD GLUCOSE TEST) test strip Test blood sugar(s) 2 times daily. Dx: Type 2 DM - Controlled E11.9 Insulin: No losartan (COZAAR) 50 mg tablet Take 1 tablet by mouth once daily. glimepiride (AMARYL) 2 mg tablet Take 1 tablet by mouth daily with breakfast. ONETOUCH DELICA LANCETS 30 gauge TEST BLOOD SUGAR(S) TEST BLOOD SUGARS TWICE DAILY. DX: TYPE 2 DM - CONTROLLED E11.9 INSULIN: NO Delecia Lancets (ONETOUCH ULTRASOFT LANCETS) lancets Use once daily as directed E11.9 lancets (ONE TOUCH DELICA) 33 gauge Test blood sugar(s) twice daily. Dx: Type 2 DM - Controlled E11.9 Insulin: No blood sugar diagnostic (ONETOUCH ULTRA TEST STRIP) test strip Type 2 diabetes, no insulin, well controlled, Use as instructed Blood-Glucose Meter monitoring kit Glucose Meter of Choice - Kit - Dx: Type 2 DM - Controlled E11.9 ascorbic acid, vitamin C, 500 mg cap Take 1 tablet by mouth two times a day. (Patient not taking: Reported on 02/14/2024) furosemide (LASIX) 40 mg tablet Take 1 tablet by mouth once daily for 10 days. metroNIDAZOLE (FLAGYL) 500 mg tablet Take 500 mg by mouth three times a day. (Patient not taking: Reported on 02/14/2024) ciprofloxacin HCl (CIPRO) 500 mg tablet Take 500 mg by mouth two times a day. (Patient not taking: Reported on 02/14/2024) pantoprazole DR (PROTONIX) 40 mg tablet Take 1 tablet by mouth two times a day. Take on empty stomach, 1/2 hr before meal. (Patient not taking: Reported on 02/14/2024) fexofenadine (VALENTINA) 180 mg tablet Take 1 tablet by mouth once daily. (Patient not taking: Reported on 02/14/2024) ondansetron orally disintegrating (ZOFRAN ODT) 4 mg disintegratin (more content not included)... [facility] Telephone (FREEDOM) ----- NGUYEN QUEEN ([id number]) 1945 F Date Time Provider Department 02/14/24 KARSON WOODWARD During your visit today, we recorded the following information about you: Karson Woodward APRN.CNP 02/14/2024 11:51 AM Signed Patient states that she has right calf DVT and Dr. Singh gave her Eliquis x1 month. Typically we will have them take it for at least 3-6 months, I just wanted to make sure that he did only want it for 1 month. If so that's fine! Karson Woodward APRN.Nell Spence MA 02/14/2024 12:42 PM Signed Spoke with DR. Varghese nurse who reports pt stopped taking the eliqus at 30 days, was supposed to take for 45 days, but she had trouble with cost/ felt like it caused swelling in her legs. Dr. Singh said patient should be fine. SHAVON Alfaro Rebekah, APRN.BLAYNE 02/14/2024 1:46 PM Signed Noted, thank you. Karson Woodward APRN.CNP Allergies As of Date: 02/14/2024 Noted Allergy Reaction BENADRYL (DIPHENHYDRAMINE HCL) 05/17/2015 7 - Swelling PENICILLINS 05/17/2015 12 - Shortness of Breath [id number] REDUCTASE INHIBIT*09/28/2015 15 - Contraindication-Medical Lester* Comments: History of liver failure Date Reviewed: 02/14/2024 Reviewed by: Karson Woodward APRN.CNP - Fully Assessed Reason for Visit: call Dr. Singh's office [Other] Prescriptions as of 02/14/2024 - levothyroxine (LEVOXYL) 150 mcg tablet Take 1 tablet 3 days a week and take 1.5 tablets 4 days a week. Take on empty stomach. For Thyroid. - metFORMIN (GLUCOPHAGE) 500 mg tablet Take 1 tablet by mouth two times a day with meals. - ferrous sulfate 325 mg (65 mg iron) tablet Take 1 tablet by mouth every other day. - lancets 30 gauge Use with blood glucose test once daily Delcia plus - blood sugar diagnostic (BLOOD GLUCOSE TEST) test strip Test blood sugar(s) 2 times daily. Dx: Type 2 DM - Controlled E11.9 Insulin: No - losartan (COZAAR) 50 mg tablet Take 1 tablet by mouth once daily. - glimepiride (AMARYL) 2 mg tablet Take 1 tablet by mouth daily with breakfast. - ONETOUCH DELICA LANCETS 30 gauge TEST BLOOD SUGAR(S) TEST BLOOD SUGARS TWICE DAILY. DX: TYPE 2 DM - CONTROLLED E11.9 INSULIN: NO Delecia - Lancets (ONETOUCH ULTRASOFT LANCETS) lancets Use once daily as directed E11.9 - lancets (ONE TOUCH DELICA) 33 gauge Test blood sugar(s) twice daily. Dx: Type 2 DM - Controlled E11.9 Insulin: No - blood sugar diagnostic (ONETOUCH ULTRA TEST STRIP) test strip Type 2 diabetes, no insulin, well controlled, Use as instructed - Blood-Glucose Meter monitoring kit Glucose Meter of Choice - Kit - Dx: Type 2 DM - Controlled E11.9 Problem List As Of Date 02/14/2024 Noted Resolved Essential hypertension with goal blood pressure*05/17/2015 Diabetes mellitus type 2, controlled, without c*05/17/2015 08/23/2020 Hypothyroidism, acquired [E03.9] 10/06/2016 Hypertriglyceridemia [E78.1] 04/13/2017 Obesity, Class II, BMI 35-39.9 [E66.812] 04/13/2017 03/02/2023 Right rotator cuff tendinitis [M75.81] 10/16/2017 Peripheral neuropathy [G62.9] 01/21/2018 08/22/2021 Controlled type 2 diabetes mellitus without com*01/21/2018 09/04/2022 Fecal occult blood test positive [R19.5] 01/21/2018 Blood in stool [K92.1] 01/21/2018 Obesity, Class III, BMI >= 40 [E66.01] 02/26/2018 08/23/2020 Vitamin D deficiency [E55.9] 02/19/2019 Vitamin B12 deficiency [E53.8] 02/20/2020 Chronic pain of right ankle [M25.571, G89.29] 08/25/2020 Bilateral hip pain [M25.551, M25.552] 08/25/2020 Chronic midline low back pain without sciatica *08/25/2020 Atypical squamoproliferative skin lesion [D49.2]08/25/2020 Osteoarthritis of back [M47.9] 09/06/2020 Absolute anemia [D64.9] 05/31/2021 Fatigue [R53.83] 05/31/2021 Malabsorption syndrome [K90.9] 05/31/2021 Iron deficiency [E61.1] 11/15/2021 Uncontrolled type 2 diabetes mellitus with hype*11/15/2021 RUQ abdominal pain [R10.11] 05/26/2022 Calculus of gallbladder without cholecystitis w*05/26/2022 Fatty liver [K76.0] 05/26/2022 Type 2 diabetes mellitus with hypertriglyceride* 023 Elevated alkaline phosphatase level [R74.8] 09/05/2022 Colon neoplasm [D49.0] 07/04/2023 S/P colectomy [Z90.49] 07/04/2023 Gait abnormality [R26.9] 11/20/2023 Muscle weakness [M62.81] 11/20/2023 Weight loss [R63.4] 11/20/2023 Controlled type 2 diabetes mellitus without com*11/20/2023 Hypokalemia [E87.6] 11/20/2023 Bilateral lower extremity edema [R60.0] 11/20/2023 Encounter Status:Closed by KARSON [facility] NGUYEN QUEEN ([id number]) 1945 F Date Time Provider Department 02/14/24 KARSON WOODWARD During your visit today, we recorded the following information about you: Karson Woodward APRN.ELECTRICAL ENGINEERING DIRECTOR 02/14/2024 2:49 PM Signed Patient states that she usually gets her B12 shots and is due for one with our nurse Lani. For whatever reason she states she hasn't been able to schedule this appt. I'm not familiar with this, are we able to help her out? Thanks Karson Woodward APRN.ELECTRICAL ENGINEERING DIRECTOR Allergies As of Date: 02/14/2024 Noted Allergy Reaction BENADRYL (DIPHENHYDRAMINE HCL) 05/17/2015 7 - Swelling PENICILLINS 05/17/2015 12 - Shortness of Breath [id number] REDUCTASE INHIBIT*09/28/2015 15 - Contraindication-Medical Lester* Comments: History of liver failure Date Reviewed: 02/14/2024 Reviewed by: Karson Woodward APRN.ELECTRICAL ENGINEERING DIRECTOR - Fully Assessed Reason for Visit: B12 injections [Other] Prescriptions as of 03/05/2024 - levothyroxine (LEVOXYL) 150 mcg tablet Take 1 tablet 3 days a week and take 1.5 tablets 4 days a week. Take on empty stomach. For Thyroid. - metFORMIN (GLUCOPHAGE) 500 mg tablet Take 1 tablet by mouth two times a day with meals. - ferrous sulfate 325 mg (65 mg iron) tablet Take 1 tablet by mouth every other day. - lancets 30 gauge Use with blood glucose test once daily Delcia plus - blood sugar diagnostic (BLOOD GLUCOSE TEST) test strip Test blood sugar(s) 2 times daily. Dx: Type 2 DM - Controlled E11.9 Insulin: No - losartan (COZAAR) 50 mg tablet Take 1 tablet by mouth once daily. - glimepiride (AMARYL) 2 mg tablet Take 1 tablet by mouth daily with breakfast. - ONETOUCH DELICA LANCETS 30 gauge TEST BLOOD SUGAR(S) TEST BLOOD SUGARS TWICE DAILY. DX: TYPE 2 DM - CONTROLLED E11.9 INSULIN: NO Delecia - Lancets (ONETOUCH ULTRASOFT LANCETS) lancets Use once daily as directed E11.9 - lancets (ONE TOUCH DELICA) 33 gauge Test blood sugar(s) twice daily. Dx: Type 2 DM - Controlled E11.9 Insulin: No - blood sugar diagnostic (ONETOUCH ULTRA TEST STRIP) test strip Type 2 diabetes, no insulin, well controlled, Use as instructed - Blood-Glucose Meter monitoring kit Glucose Meter of Choice - Kit - Dx: Type 2 DM - Controlled E11.9 Problem List As Of Date 02/14/2024 Noted Resolved Essential hypertension with goal blood pressure*05/17/2015 Diabetes mellitus type 2, controlled, without c*05/17/2015 08/23/2020 Hypothyroidism, acquired [E03.9] 10/06/2016 Hypertriglyceridemia [E78.1] 04/13/2017 Obesity, Class II, BMI 35-39.9 [E66.812] 04/13/2017 03/02/2023 Right rotator cuff tendinitis [M75.81] 10/16/2017 Peripheral neuropathy [G62.9] 01/21/2018 08/22/2021 Controlled type 2 diabetes mellitus without com*01/21/2018 09/04/2022 Fecal occult blood test positive [R19.5] 01/21/2018 Blood in stool [K92.1] 01/21/2018 Obesity, Class III, BMI >= 40 [E66.01] 02/26/2018 08/23/2020 Vitamin D deficiency [E55.9] 02/19/2019 Vitamin B12 deficiency [E53.8] 02/20/2020 Chronic pain of right ankle [M25.571, G89.29] 08/25/2020 Bilateral hip pain [M25.551, M25.552] 08/25/2020 Chronic midline low back pain without sciatica *08/25/2020 Atypical squamoproliferative skin lesion [D49.2]08/25/2020 Osteoarthritis of back [M47.9] 09/06/2020 Absolute anemia [D64.9] 05/31/2021 Fatigue [R53.83] 05/31/2021 Malabsorption syndrome [K90.9] 05/31/2021 Iron deficiency [E61.1] 11/15/2021 Uncontrolled type 2 diabetes mellitus with hype*11/15/2021 RUQ abdominal pain [R10.11] 05/26/2022 Calculus of gallbladder without cholecystitis w*05/26/2022 Fatty liver [K76.0] 05/26/2022 Type 2 diabetes mellitus with hypertriglyceride* 023 Elevated alkaline phosphatase level [R74.8] 09/05/2022 Colon neoplasm [D49.0] 07/04/2023 S/P colectomy [Z90.49] 07/04/2023 Gait abnormality [R26.9] 11/20/2023 Muscle weakness [M62.81] 11/20/2023 Weight loss [R63.4] 11/20/2023 Controlled type 2 diabetes mellitus without com*11/20/2023 Hypokalemia [E87.6] 11/20/2023 Bilateral lower extremity edema [R60.0] 11/20/2023 Encounter Status:Closed by KARSON WOODWARD on 03/05/24 Normal [facility] 25([place])D3 [facility] 25-hydroxyvitamin D3 [Mass/Vol] 20.6 ng/mL Low 31.0-80.0 [facility] Comment on above: Order Comment: Speci men Type: BLOOD SPECIMENOrdering Facility: [facility] Address: [address] [place] [address] Result Comment: Clas sification of 25 [place] Vitamin D status: Deficiency/Insufficiency: < or = 30 ng/ml. Sufficiency/Optimal Levels: 31-80 ng/mL Toxicity: > 100 ng/mL. Test performed by chemiluminescent immunoassay. Performed By: #### 1 989-3 ####[facility] LABCLIA [id number] [place] [address] [place] CBC panel Auto (Bld)on 02-03 Erythrocyte distribution width (RBC) [Ratio] 13.4 % Normal 11.5-15.0 [facility] Comment on above: Order Comment: Marcelina plascencia Type: BLOOD SPECIMENOrdering Facility: [facility] Address: [address] [place] [address] Performed By: #### 5 8410-2 ####[facility]ENTERWNCAYAD [id number] [place] [address] [place] Hematocrit (Bld) [Volume fraction] 35.0 % Low 36.0-46.0 [facility] Comment on above: Order Comment: Marcelina plascencia Type: BLOOD SPECIMENOrdering Facility: [facility] Address: [address] [place] [address] Performed By: #### 5 8410-2 ####[facility]ENTERNCAYAD [id number] [place] [address] [place] Hemoglobin (Bld) [Mass/Vol] 10.7 g/dL Low 11.5-15.5 [facility] Comment on above: Order Comment: Speci men Type: BLOOD SPECIMENOrdering Facility: [facility] Address: [address] [place] [address] Performed By: #### 5 8410-2 ####[facility] CENTERSOHAMLIA [id number] [place] [address] [place] MCH (RBC) [Entitic mass] 25.3 pg Low 26.0-34.0 [facility] Comment on above: Order Comment: Speci men Type: BLOOD SPECIMENOrdering Facility: [facility] Address: [address] [place] [address] Performed By: #### 5 8410-2 ####[facility]ENTERNCDAV[facility] [id number] [place] [address] [place] MCHC (RBC) [Mass/Vol] 30.6 g/dL Normal 30.5-36.0 [facility] Comment on above: Order Comment: Speci men Type: BLOOD SPECIMENOrdering Facility: [facility] Address: [address] [place] [address] Performed By: #### 5 8410-2 ####[facility]ENTERNCLIA [id number] [place] [address] [place] MCV (RBC) [Entitic vol] 82.7 fL Normal 80.0-100.0 [facility] Comment on above: Order Comment: Speci men Type: BLOOD SPECIMENOrdering Facility: [facility] Address: [address] [place] [address] Performed By: #### 5 8410-2 ####[facility]ENTERNCLIA [id number] [place] [address] [place] Nucleated RBC (Bld) [#/Vol] 10*3/uL Normal <0.01 [facility] Comment on above: Order Comment: Speci men Type: BLOOD SPECIMENOrdering Facility: [facility] Address: [address] [place] [address] Performed By: #### 5 8410-2 ####[facility] RADHA DEVONTENCAYAD [id number] [place] [address] [place] Platelet mean volume (Bld) [Entitic vol] 9.1 fL Normal 9.0-12.7 [facility] Comment on above: Order Comment: Speci men Type: BLOOD SPECIMENOrdering Facility: [facility] Address: [address] [place] [address] Performed By: #### 5 8410-2 ####[facility] CENTERNCJANELL [id number] [place] [address] [place] Platelets (Bld) [#/Vol] 441 10*3/uL High 150-400 [facility] Comment on above: Order Comment: Speci men Type: BLOOD SPECIMENOrdering Facility: [facility] Address: [address] [place] [address] Performed By: #### 5 8410-2 ####[facility]ENTERNCLIA [id number] [place] [address] [place] RBC (Bld) [#/Vol] 4.23 10*6/uL Normal 3.90-5.20 [facility] Comment on above: Order Comment: Speci men Type: BLOOD SPECIMENOrdering Facility: [facility] Address: [address] [place] [address] Performed By: #### 5 8410-2 ####[facility]ENTERNCLIA [id number] [place] [address] [place] WBC (Bld) [#/Vol] 5.45 10*3/uL Normal 3.70-11.00 [facility] Comment on above: Order Comment: Speci men Type: BLOOD SPECIMENOrdering Facility: [facility] Address: [address] [place] [address] Performed By: #### 5 8410-2 ####[facility] RICKIESINGHWNCLIA [id number] [place] [address] [place] Comprehensive metabolic 2000 panelon 02-04-2024 Albumin [Mass/Vol] 3.3 g/dL Low 3.9-4.9 [facility] Comment on above: Order Comment: Speci men Type: BLOOD SPECIMENOrdering Facility: [facility] Address: [address] [place] [address] Performed By: #### 2 4323-8 ####[facility] CENTERWSOHAMLIA [id number] [place] [address] [place] ALP [Catalytic activity/Vol] 81 U/L Normal 34-123 [facility] Comment on above: Order Comment: Speci men Type: BLOOD SPECIMENOrdering Facility: [facility] Address: [address] [place] [address] Performed By: #### 2 4323-8 ####[facility] CENTERTATIA [id number] [address] [place] ALT [Catalytic activity/Vol] 9 U/L Normal 7-38 [facility] Comment on above: Order Comment: Speci men Type: BLOOD SPECIMENOrdering Facility: [facility] Address: [address] [place] [address] Performed By: #### 2 4323-8 ####[facility] MILLTOWNCLIA [id number] [place] [address] [place] Anion gap [Moles/Vol] 11 mmol/L Normal 8-15 [facility] Comment on above: Order Comment: Speci men Type: BLOOD SPECIMENOrdering Facility: [facility] Address: [address] [place] [address] Performed By: #### 2 4323-8 ####[facility]ENTERNCLIA [id number] [place] [address] [place] AST [Catalytic activity/Vol] 11 U/L Low 13-35 [facility] Comment on above: Order Comment: Speci men Type: BLOOD SPECIMENOrdering Facility: [facility] Address: [address] [place] [address] Performed By: #### 2 4323-8 ####[facility] CENTERWNCLIA [id number] [place] [address] [place] Bilirubin [Mass/Vol] 0.3 mg/dL Normal 0.2-1.3 [facility] Comment on above: Order Comment: Speci men Type: BLOOD SPECIMENOrdering Facility: [facility] Address: [address] [place] [address] Performed By: #### 2 4323-8 ####[facility]ENTERNCLIA [id number] [place] [address] [place] Calcium [Mass/Vol] 8.8 mg/dL Normal 8.5-10.2 [facility] Comment on above: Order Comment: Speci men Type: BLOOD SPECIMENOrdering Facility: [facility] Address: [address] [place] [address] Performed By: #### 2 4323-8 ####[facility]ENTERNCLIA [id number] [place] [address] [place] Chloride [Moles/Vol] 107 mmol/L Normal 98-107 [facility] Comment on above: Order Comment: Speci men Type: BLOOD SPECIMENOrdering Facility: [facility] Address: [address] [place] [address] Performed By: #### 2 4323-8 ####[facility] CENTERWNCLIA [id number] [place] [address] [place] CO2 [Moles/Vol] 21 mmol/L Low 22-30 [facility] Comment on above: Order Comment: Speci men Type: BLOOD SPECIMENOrdering Facility: [facility] Address: [address] [place] [address] Performed By: #### 2 4323-8 ####[facility] RICKIETONALEANCLI [id number] [place] [address] [place] Creatinine [Mass/Vol] 0.64 mg/dL Normal 0.58-0.96 [facility] Comment on above: Order Comment: Speci men Type: BLOOD SPECIMENOrdering Facility: [facility] Address: [address] [place] [address] Performed By: #### 2 4323-8 ####[facility]ERNCDAV[facility] [id number] [place] [address] [place] Creatinine and Glomerular filtration rate.predicted panel (S/P/Bld) 92 mL/min/1.73m??? Normal >=60 [facility] Comment on above: Order Comment: Speci men Type: BLOOD SPECIMENOrdering Facility: [facility] Address: [address] [place] [address] Result Comment: Sonya mated Glomerular Filtration Rate (eGFR) is calculated using the 2020 CKD-EPI creatinine equation. This equation utilizes serum creatinine, sex, and age as parameters. The creatinine assay has traceable calibration to isotope dilution-mass spectrometry. Refer to KDIGO guidelines for clinical interpretation. In patients with unstable renal function, e.g. those with acute kidney injury, the eGFR may not accurately reflect actual GFR. Performed By: #### 2 4323-8 ####[facility]ENTERNCLIA [id number] [place] [address] [place] Glucose [Mass/Vol] 141 mg/dL High 74-99 [facility] Comment on above: Order Comment: Speci men Type: BLOOD SPECIMENOrdering Facility: [facility] Address: [address] [place] [address] Result Comment: The [place] Diabetes Association (ADA) provides guidance for cutoff values for fasting glucose and random glucose. The ADA defines fasting as no caloric intake for at least 8 hours. Fasting plasma glucose results between 100 to 125 mg/dL indicate increased risk for diabetes (prediabetes). Fasting plasma glucose results greater than or equal to 126 mg/dL meet the criteria for diagnosis of diabetes. In the absence of unequivocal hyperglycemia, results should be confirmed by repeat testing. In a patient with classic symptoms of hyperglycemia or hyperglycemic crisis, random plasma glucose results greater than or equal to 200 mg/dL meet the criteria for diagnosis of diabetes. Reference: Standards of Medical Care in Diabetes 2016, [place] Diabetes Association. Diabetes Care. 2016.39(Suppl 1). Performed By: #### 2 4323-8 ####[facility] MIRAMAR [id number] [place] [address] [place] Potassium [Moles/Vol] 3.9 mmol/L Normal 3.7-5.1 [facility] Comment on above: Order Comment: Speci men Type: BLOOD SPECIMENOrdering Facility: [facility] Address: [address] [place] [address] Performed By: #### 2 4323-8 ####[facility] MIRAMAR [id number] [place] [address] [place] Protein [Mass/Vol] 6.1 g/dL Low 6.3-8.0 [facility] Comment on above: Order Comment: Speci men Type: BLOOD SPECIMENOrdering Facility: [facility] Address: [address] [place] [address] Performed By: #### 2 4323-8 ####[facility] MIRAMAR [id number] [place] [address] [place] Sodium [Moles/Vol] 139 mmol/L Normal 136-144 [facility] Comment on above: Order Comment: Speci men Type: BLOOD SPECIMENOrdering Facility: [facility] Address: [address] [place] [address] Performed By: #### 2 4323-8 ####[facility]ENTERNCLIA [id number] [place] [address] [place] Urea nitrogen [Mass/Vol] 15 mg/dL Normal 7-21 [facility] Comment on above: Order Comment: Speci men Type: BLOOD SPECIMENOrdering Facility: [facility] Address: [address] [place] [address] Performed By: #### 2 4323-8 ####[facility]ENTERNCLIA [id number] [place] [id number] [place] Ferritin SerPl-mCncon 2023 Ferritin [Mass/Vol] 60.6 ng/mL Normal 14.7-205.1 [facility] Comment on above: Order Comment: Speci men Type: BLOOD SPECIMENOrdering Facility: [facility] Address: [address] [place] [address] Performed By: #### 2 132-9, 2276-4 ####[facility] LABCLIA [id number] [place] [address] [place] HbA1c (Bld)on 02-04-2024 Average glucose Estimated from glycated hemoglobin (Bld) [Mass/Vol] 111 mg/dL Normal [facility] Comment on above: Order Comment: Speci men Type: BLOOD SPECIMENOrdering Facility: [facility] Address: [address] [place] [address] Result Comment: eAG: (Estimated average glucose) is a calculated value from HgbA1c and is farm loan representative of the average blood glucose level in the last 2-3 month period. Performed By: #### 5 5454-3 ####[facility] LABCLIA [id number] [place] [address] [place] HbA1c (Bld) [Mass fraction] 5.5 % Normal 4.3-5.6 [facility] Comment on above: Order Comment: Speci men Type: BLOOD SPECIMENOrdering Facility: [facility] Address: [address] [place] [address] Result Comment: Amer [place] Diabetes Association guidelines indicate that patients with HgbA1c in the range 5.7-6.4% are at increased risk for development of diabetes, and intervention by lifestyle modification may be beneficial. HgbA1c greater or equal to 6.5% is considered diagnostic of diabetes. Performed By: #### 5 5454-3 ####[facility] LABCLIA [id number] [place] [address] [place] Iron and Iron binding capaci ty panelon 02-04-2024 Iron [Mass/Vol] 29 ug/dL Low 41-186 [facility] Comment on above: Order Comment: Speci men Type: BLOOD SPECIMENOrdering Facility: [facility] Address: [address] [place] [address] Performed By: #### 5 0190-8, 4-7, 3016-3 ####[facility] LABCLIA [id number] [place] [address] [place]#### 24196-4 ####[facility] LABCLIA [id number] [place] [id number] [facility] [id number] [place] [address] [place] Iron binding capacity [Mass/Vol] 251 ug/dL Normal 232-386 [facility] Comment on above: Order Comment: Speci men Type: BLOOD SPECIMENOrdering Facility: [facility] Address: [facility] [place] [address] Performed By: #### 5 0190-8, 3024-7, 3016-3 ####[facility] LABCLIA [id number] [place] [address] [place]#### 34033-0 ####[facility] LABCLIA [id number] [address] [address] [place] [facility] [id number] [place] [address] [place] Iron/TIBC [Molar ratio] 11.6 % Low 15.0-57.0 C [facility] Comment on above: Order Comment: Speci men Type: BLOOD SPECIMENOrdering Facility: [facility] Address: [address] [place] [address] Performed By: #### 5 0190-8, 3024-7, 3016-3 ####[facility] LABCLIA [id number] [place] [address] [place]#### 72593-2 ####[facility] LABCLIA [id number] [address] STATES OF [facility] [id number] [place] [address] [place] Lipid 1996 panelon 4 Cholesterol [Mass/Vol] 114 mg/dL Normal <200 [facility] Comment on above: Order Comment: Speci men Type: BLOOD SPECIMENOrdering Facility: [facility] Address: [address] [place] [address] Result Comment: <200 mg/dL, Desirable 200-239 mg/dL, Borderline high >239 mg/dL, High Performed By: #### 5 0190-8, 3024-7, 3016-3 ####[facility] LABCLIA [id number] [place] [address] [place]#### 23421-3 ####[facility] LABCLIA [id number] [address] STATES OF [facility] [id number] [place] [address] [place] Cholesterol in HDL [Mass/Vol] 44 mg/dL Normal >39 [facility] Comment on above: Order Comment: Speci men Type: BLOOD SPECIMENOrdering Facility: [facility] Address: [address] [place] [address] Result Comment: 40-5 9 mg/dL, Acceptable >59 mg/dL, High: Negative risk factor for coronary heart disease <40 mg/dL, Low: Positive risk factor for coronary heart disease Performed By: #### 5 0190-8, 3024-7, 3016-3 ####[facility] LABCLIA [id number] [place] [address] [place]#### 52045-0 ####[facility] LABCLIA [id number] [address] [id number] [place] [address] [place] Cholesterol in LDL [Mass/Vol] 52 mg/dL Normal <100 [facility] Comment on above: Order Comment: Speci men Type: BLOOD SPECIMENOrdering Facility: [facility] Address: [address] [place] [address] Result Comment: <100 mg/dL, Optimal 100-129 mg/dL, Near optimal/above optimal 130-159 mg/dL, Borderline high 160-189 mg/dL, High >189 mg/dL, Very high Secondary prevention optimal LDL Cholesterol levels are recommended to be < 70 mg/dL Performed By: #### 5 0190-8, 3024-7, 3016-3 ####[facility] LABCLIA [id number] [place] [address] [place]#### 99000-4 ####[facility] LABCLIA [id number] [address] OF [facility] [id number] [place] [address] [place] Cholesterol in LDL/Cholesterol in HDL [Mass ratio] 1.18 {ratio} Normal <2.54 [facility] Comment on above: Order Comment: Speci men Type: BLOOD SPECIMENOrdering Facility: [facility] Address: [facility] [place] [address] Result Comment: Idalia dean: 1. National Cholesterol Education Program ATP III Guideline At-A-Glance Quick Desk Reference: National Heart, Lung, and Blood [place]. National Institutes of Health. 2001: NIH Publication No. 01-3305. 2. An International Atherosclerosis Society position paper: global recommendations for the management of dyslipidemia: executive summary, Atherosclerosis. 2014: 232(2):410-413. Performed By: #### 5 0190-8, 3024-7, 3016-3 ####[facility] LABCLIA [id number] [place] [address] [place]#### 81004-0 ####[facility] LABCLIA [id number] [id number] [place] [address] [place] Cholesterol in VLDL [Mass/Vol] 18 mg/dL Normal <30 [facility] Comment on above: Order Comment: Speci men Type: BLOOD SPECIMENOrdering Facility: [facility] Address: [address] [place] [address] Performed By: #### 5 0190-8, 4-7, 3016-3 ####[facility] LABCLIA [id number] [address] [place]#### 69605-5 ####[facility] LABCLIA [id number] [id number] [place] [address] [place] Cholesterol non HDL [Mass/Vol] 70 mg/dL Normal <130 [facility] Comment on above: Order Comment: Speci men Type: BLOOD SPECIMENOrdering Facility: [facility] Address: [address] [place] [address] Result Comment: <130 mg/dL, Optimal 130-159 mg/dL, Near optimal/above optimal 160-189 mg/dL, Borderline high 190-219 mg/dL, High >219 mg/dL, Very high Secondary prevention optimal non HDL Cholesterol levels are recommended to be <100 mg/dL Performed By: #### 5 0190-8, 3023-, 3 ####[facility] LABCLIA [id number] [place] [address] [place]#### 30913-9 ####[facility] LABCLIA [id number] [address] [id number] [place] [address] [place] Cholesterol.total/Cholest tobi in HDL [Mass ratio] 2.59 {ratio} Normal <5.[address] [facility] Comment on above: Order Comment: Speci men Type: BLOOD SPECIMENOrdering Facility: [facility] Address: [address] [place] [address] Performed By: #### 5 0190-8, 3023-08, 3015-04 ####[facility] LABCLIA [id number] [place] [address] [place]#### 14611-8 ####[facility] LABCLIA [id number] [address] [id number] [address] [place] FASTING TIME 14 hrs Normal [facility] Comment on above: Order Comment: Speci men Type: BLOOD SPECIMENOrdering Facility: [facility] Address: [address] [place] [address] Performed By: #### 5 0190-8, 3023-08, 3 ####[facility] LABCLIA [id number] [place] [address] [place]#### 08311-4 ####[facility] LABCLIA [id number] [place] [address] [place] [facility] M[facility] [id number] [place] [address] [place] Triglyceride [Mass/Vol] 89 mg/dL Normal <150 [facility] Comment on above: Order Comment: Speci men Type: BLOOD SPECIMENOrdering Facility: [facility] Address: [address] [place] [address] Result Comment: <150 mg/dL, Normal 150-199 mg/dL, Borderline high 200-499 mg/dL, High >499 mg/dL, Very high Performed By: #### 5 0190-8, 4-7, 3016-3 ####[facility] LABCLIA [id number] [place] [address] [place]#### 84235-9 ####[facility] LABCLIA [id number] [address] STATES OF [facility] [id number] [place] [address] [place] T4 Free SerPl-mCncon -23-2 024 Free T4 [Mass/Vol] 1.6 ng/dL Normal 0.9-1.7 [facility] Comment on above: Order Comment: Speci men Type: BLOOD SPECIMENOrdering Facility: [facility] Address: [address] [place] [id number] Performed By: #### 5 0190-8, 3024-7, 3016-3 ####[facility] LABCLIA [id number] [place] [address] [place]#### 07083-6 ####[facility] LABCLIA [id number] [address] [id number] [place] [address] [place] TSH SerPl-aCncon 02-04-2024 TSH Qn 0.025 m[IU]/L Low 0.270-4.20 0 [facility] Comment on above: Order Comment: Speci men Type: BLOOD SPECIMENOrdering Facility: [facility] Address: [address] [place] [address] Performed By: #### 5 0190-8, 3024-7, 3016-3 ####[facility] LABCLIA [id number] [address] [place]#### 19701-3 ####[facility] LABCLIA [id number] [address] [id number] [place] [address] [place] Vit B12 SerPl-ncon 024 Cobalamin (Vitamin B12) [Mass/Vol] 480 pg/mL Normal 232-1245 [facility] Comment on above: Order Comment: Speci men Type: BLOOD SPECIMENOrdering Facility: [facility] Address: [address] [place] [address] Performed By: #### 2 132-9, 2276-4 ####[facility] LABCLIA [id number] [address] [place] CNPJennifer 02-01-2024 CNPN Telephone (INTMWS) ----- NGUYEN [id number]) 1945 F Date Time Provider Department 02/01/24 JEFF SIMEON During your visit today, we recorded the following information about you: Monse Ibarra 02/01/2024 12:42 PM Signed Pt is requesting lab orders be put in so that she can have them drawn a week before her upcoming appt with Crissy. Karson Woodward APRN.CNP 02/01/2024 2:03 PM Signed Lab orders placed. YOLANDA Oliva [place], [place] 02/01/2024 2:13 PM Signed Pt informed Nell Perez MA Allergies As of Date: 02/01/2024 Noted Allergy Reaction BENADRYL (DIPHENHYDRAMINE HCL) 05/17/2015 7 - Swelling PENICILLINS 05/17/2015 12 - Shortness of Breath XHCNAKG-UTJ-EHG REDUCTASE INHIBIT*09/28/2015 15 - Contraindication-Medical Lester* Comments: History of liver failure Date Reviewed: 11/20/2023 Reviewed by: Sharlene Haley LPN - Fully Assessed Reason for Visit: Orders [681] Primary Visit Diagnosis:Hypertriglyceri demia [E78.1] Other Visit Diagnoses:Essential hypertension with goal blood pressure less than 130/80 [I10] 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) [E11.69, E78.1] Vitamin B12 deficiency [E53.8] Iron deficiency [E61.1] Fatty liver [K76.0] Hypothyroidism, acquired [E03.9] Vitamin D deficiency [E55.9] Order(s):HEMOGLOBIN A1C [HFNFZ0X] Order #: [id number] FUTURE THYROID STIMULATING HORMONE [SQTSH] Order #: [id number] FUTURE T4 FREE/FREE THYROXINE [SQFT4] Order #: [id number] FUTURE VITAMIN D 25 HYDROXY [SQVITD] Order #: [id number] FUTURE IRON AND TIBC [SQIRON] Order #: [id number] FUTURE FERRITIN [SQFERR] Order #: [id number] FUTURE COMPLETE BLOOD COUNT [SQCBC] Order #: [id number] FUTURE COMPREHENSIVE METABOLIC PANEL [SQCMP] Order #: [id number] FUTURE LIPID PANEL BASIC [SQLIPB] Order #: [id number] FUTURE VITAMIN B12 [SQB12] Order #: [id number] FUTURE Prescriptions as of 02/01/2024 - ascorbic acid, vitamin C, 500 mg cap Take 1 tablet by mouth two times a day. - levothyroxine (LEVOXYL) 150 mcg tablet Take 1 tablet 3 days a week and take 1.5 tablets 4 days a week. Take on empty stomach. For Thyroid. - metFORMIN (GLUCOPHAGE) 500 mg tablet Take 1 tablet by mouth two times a day with meals. - furosemide (LASIX) 40 mg tablet Take 1 tablet by mouth once daily for 10 days. - metroNIDAZOLE (FLAGYL) 500 mg tablet Take 500 mg by mouth three times a day. - ciprofloxacin HCl (CIPRO) 500 mg tablet Take 500 mg by mouth two times a day. - ferrous sulfate 325 mg (65 mg iron) tablet Take 1 tablet by mouth every other day. - pantoprazole DR (PROTONIX) 40 mg tablet Take 1 tablet by mouth two times a day. Take on empty stomach, 1/2 hr before meal. - lancets 30 gauge Use with blood glucose test once daily Delcia plus - blood sugar diagnostic (BLOOD GLUCOSE TEST) test strip Test blood sugar(s) 2 times daily. Dx: Type 2 DM - Controlled E11.9 Insulin: No - fexofenadine (VALENTINA) 180 mg tablet Take 1 tablet by mouth once daily. - losartan (COZAAR) 50 mg tablet Take 1 tablet by mouth once daily. - glimepiride (AMARYL) 2 mg tablet Take 1 tablet by mouth daily with breakfast. - ondansetron orally disintegrating (ZOFRAN ODT) 4 mg disintegrating tablet Take 1 tablet by mouth every 6 hours as needed for nausea/vomiting. - ONETOUCH DELICA LANCETS 30 gauge TEST BLOOD SUGAR(S) TEST BLOOD SUGARS TWICE DAILY. DX: TYPE 2 DM - CONTROLLED E11.9 INSULIN: NO Delecia - Lancets (ONETOUCH ULTRASOFT LANCETS) lancets Use once daily as directed E11.9 - lancets (ONE TOUCH DELICA) 33 gauge Test blood sugar(s) twice daily. Dx: Type 2 DM - Controlled E11.9 Insulin: No - blood sugar diagnostic (ONETOUCH ULTRA TEST STRIP) test strip Type 2 diabetes, no insulin, well controlled, Use as instructed - Blood-Glucose Meter monitoring kit Glucose Meter of Choice - Kit - Dx: Type 2 DM - Controlled E11.9 - aspirin, enteric coated (ASPIRIN, ENTERIC COATED) 81 mg EC tablet Take 81 mg by mouth once daily. Problem List As Of Date 02/01/2024 Noted Resolved Essential hypertension with goal blood pressure*05/17/2015 Diabetes mellitus type 2, controlled, without c*05/17/2015 08/23/2020 Hypothyroidism, acquired [E03.9] 10/06/2016 Hypertriglyceridemia [E78.1] 04/13/2017 Obesity, Class II, BMI 35-39.9 [E66.812] 04/13/2017 03/02/2023 Right rotator cuff tendinitis [M75.81] 10/16/2017 Peripheral neuropathy [G62.9] 01/21/2018 08/22/2021 Controlled type 2 diabetes mellitus without com*01/21/2018 09/04/2022 Fecal occult blood test positive [R19.5] 01/21/2018 Blood in stool [K92.1] 01/21/2018 Obesity, Class III, BMI >= 40 [E66.01] 02/26/2018 08/23/2020 Vitamin D deficiency [E55.9] 02/19/2019 Vitamin B12 deficiency [E53.8] 02/20/2020 Chronic pain of right ankle [M25.571, G89.29] 08/25/2020 Bilateral hip pain [M25.551, M25.552] 08/25/2020 Chronic midlin (more content not included)... Normal [facility] CBC W/Diff, Automatedon - Absolute Lymph 1.40 X10 3/uL Normal 0.83-4.51 [facility] Comment on above: Performed By: #### L 3100.2300, L500.4050, L503.6030, L504.2610, L900.0098, L100.0100 #### [facility] [address] [place], [place], [id number] Absolute Neut 3.4 X10 3/uL Normal 2.0-7.7 [facility] Comment on above: Performed By: #### L 3100.2300, L500.4050, L503.6030, L504.2610, L900.0098, L100.0100 #### [facility] [address] [place], [address] Basophils/100 WBC (Bld) 0.7 % Normal 0-1 [facility] Comment on above: Performed By: #### L 3100.2300, L500.4050, L503.6030, L504.2610, L900.0098, L100.0100 #### [facility] [address] [place], [address] Eosinophils/100 WBC (Bld) 2.7 % Normal 0-5 [facility] [facility] Comment on above: Performed By: #### L 3100.2300, L500.4050, L503.6030, L504.2610, L900.0098, L100.0100 #### [facility] [address] [place], [address] Erythrocyte distribution width (RBC) [Ratio] 12.9 % Normal 11.6-14.6 [facility] Comment on above: Performed By: #### L 3100.2300, L500.4050, L503.6030, L504.2610, L900.0098, L100.0100 #### [facility] [address] [place], [address] Hematocrit (Bld) [Volume fraction] 35.9 % Low 37-47 [facility] Comment on above: Performed By: #### L 3100.2300, L500.4050, L503.6030, L504.2610, L900.0098, L100.0100 #### [facility] [address] [place], [address] Hemoglobin (Bld) [Mass/Vol] 10.7 g/dL Low 12.0-15.0 [facility] Comment on above: Performed By: #### L 3100.2300, L500.4050, L503.6030, L504.2610, L900.0098, L100.0100 #### [facility] [address] [place], [address] IG% 1.800 High 0.0-0.9 [facility] Comment on above: Result Comment: IG% - Immature Granulocytes (promyelocytes, myelocytes and metamyelocytes) > 1% indicates that a LEFT SHIFT is Present. Performed By: #### L 3100.2300, L500.4050, L503.6030, L504.2610, L900.0098, L100.0100 #### [facility] [address] [place], [address] Lymphocytes/100 WBC (Bld) 23.5 % Normal 19-41 [facility] Comment on above: Performed By: #### L 3100.2300, L500.4050, L503.6030, L504.2610, L900.0098, L100.0100 #### [facility] [address] [place], [address] MCH (RBC) [Entitic mass] 25.4 pg Low 27.0-32.0 [facility] Comment on above: Performed By: #### L 3100.2300, L500.4050, L503.6030, L504.2610, L900.0098, L100.0100 #### [facility] [address] [place], [address] MCHC (RBC) [Mass/Vol] 29.8 g/dL Low 32-36 [facility] Comment on above: Performed By: #### L 3100.2300, L500.4050, L503.6030, L504.2610, L900.0098, L100.0100 #### [facility] [address] [place], [address] MCV (RBC) [Entitic vol] 85.1 fL Normal 81-99 [facility] Comment on above: Performed By: #### L 3100.2300, L500.4050, L503.6030, L504.2610, L900.0098, L100.0100 #### [facility] [address] [place], [address] Monocytes/100 WBC (Bld) 14.4 % High 0-10 [facility] Comment on above: Performed By: #### L 3100.2300, L500.4050, L503.6030, L504.2610, L900.0098, L100.0100 #### [facility] [address] [place], [address] Neutrophils/100 WBC (Bld) 56.9 % Normal 47-70 [facility] Comment on above: Performed By: #### L 3100.2300, L500.4050, L503.6030, L504.2610, L900.0098, L100.0100 #### [facility] [address] [place], [address] Nucleated RBC (Bld) [#/Vol] 0 10*3/uL Normal 0-5 [facility] Comment on above: Performed By: #### L 3100.2300, L500.4050, L503.6030, L504.2610, L900.0098, L100.0100 #### [facility] [address] [place], [address] Platelet mean volume (Bld) [Entitic vol] 9.3 fL Normal 6.2-12.0 [facility] Comment on above: Performed By: #### L 3100.2300, L500.4050, L503.6030, L504.2610, L900.0098, L100.0100 #### [facility] [address] [place], [address] Platelets (Bld) [#/Vol] 469 10*3/uL High 150-450 [facility] Comment on above: Performed By: #### L 3100.2300, L500.4050, L503.6030, L504.2610, L900.0098, L100.0100 #### [facility] [address] [place], [address] RBC (Bld) [#/Vol] 4.22 10*6/uL Normal 4.2-5.4 [facility] Comment on above: Performed By: #### L 3100.2300, L500.4050, L503.6030, L504.2610, L900.0098, L100.0100 #### [facility] [address] [place], [address] RDW SD 39.8 fl Normal 35.1-43.9 [facility] Comment on above: Performed By: #### L 3100.2300, L500.4050, L503.6030, L504.2610, L900.0098, L100.0100 #### [facility] [address] [place], [address] WBC (Bld) [#/Vol] 6.0 10*3/uL Normal 4.4-11.0 [facility] Comment on above: Performed By: #### L 3100.2300, L500.4050, L503.6030, L504.2610, L900.0098, L100.0100 #### [facility] [address] [place], [address] Comprehensive Metabolic Prof wvon 01-24-2024 Albumin [Mass/Vol] 2.6 g/dL Low 3.2-5.0 [facility] Comment on above: Order Comment: N1 Performed By: #### L 3100.2300, L500.4050, L503.6030, L504.2610, L900.0098, L100.0100 #### [facility] [address] [place], [address] Albumin/Globulin [Mass ratio] 0.7 {ratio} Low 0.9-2.4 [facility] Comment on above: Order Comment: N1 Performed By: #### L 3100.2300, L500.4050, L503.6030, L504.2610, L900.0098, L100.0100 #### [facility] [address] [place], [address] ALK P 75 U/L Normal 45-117 [facility] Comment on above: Order Comment: N1 Performed By: #### L 3100.2300, L500.4050, L503.6030, L504.2610, L900.0098, L100.0100 #### [facility] [address] [place], [address] ALT [Catalytic activity/Vol] 19 U/L Normal 13-56 [facility] Comment on above: Order Comment: N1 Performed By: #### L 3100.2300, L500.4050, L503.6030, L504.2610, L900.0098, L100.0100 #### [facility] [address] [place], [address] AST [Catalytic activity/Vol] 14 U/L Low 15-37 [facility] Comment on above: Order Comment: N1 Performed By: #### L 3100.2300, L500.4050, L503.6030, L504.2610, L900.0098, L100.0100 #### [facility] [address] [place], [address] Bilirubin [Mass/Vol] 0.10 mg/dL Low 0.20-1.00 [facility] Comment on above: Order Comment: N1 Result Comment: For patients on eltrombopag therapy, use of Dimension Melvin TBIL is not recommended. Performed By: #### L 3100.2300, L500.4050, L503.6030, L504.2610, L900.0098, L100.0100 #### [facility] [address] [place], [address] BUN/CRE 25.0 RATIO High 10-20 [facility] Comment on above: Order Comment: N1 Performed By: #### L 3100.2300, L500.4050, L503.6030, L504.2610, L900.0098, L100.0100 #### [facility] [address] [place], [address] CA,Total 9.0 mg/dL Normal 8.5-10.1 [facility] Comment on above: Order Comment: N1 Performed By: #### L 3100.2300, L500.4050, L503.6030, L504.2610, L900.0098, L100.0100 #### [facility] [address] [place], [address] Chloride [Moles/Vol] 109 mmol/L High 98-107 [facility] Comment on above: Order Comment: N1 Performed By: #### L 3100.2300, L500.4050, L503.6030, L504.2610, L900.0098, L100.0100 #### [facility] [address] [place], [address] CO2 [Moles/Vol] 26.0 mmol/L Normal 21.0-32.0 [facility] Comment on above: Order Comment: N1 Performed By: #### L 3100.2300, L500.4050, L503.6030, L504.2610, L900.0098, L100.0100 #### [facility] [address] [place], [address] Creatinine [Mass/Vol] 0.64 mg/dL Normal 0.55-1.02 [facility] Comment on above: Order Comment: N1 Result Comment: The validity of the calculated GFR GFRAA in patients over 70 years has not been determined. Clinical correlation is essential. Performed By: #### L 3100.2300, L500.4050, L503.6030, L504.2610, L900.0098, L100.0100 #### [facility] [address] [place], [address] ECRCL 57.15 ml/min Normal [facility] Comment on above: Order Comment: N1 Performed By: #### L 3100.2300, L500.4050, L503.6030, L504.2610, L900.0098, L100.0100 #### [facility] [address] [place], [address] EST GFR - AA 116 mL/min Normal >60 [facility] Comment on above: Order Comment: N1 Result Comment: Afri can Citizen [place] GFR Calc Performed By: #### L 3100.2300, L500.4050, L503.6030, L504.2610, L900.0098, L100.0100 #### [facility] [address] [place], [address] GAP 4 Low 5-15 [facility] Comment on above: Order Comment: N1 Performed By: #### L 3100.2300, L500.4050, L503.6030, L504.2610, L900.0098, L100.0100 #### [facility] [address] [place], [address] GFR/1.73 sq M.predicted among non-blacks MDRD (S/P/Bld) [Vol rate/Area] 96 mL/min/{1.73_m2} Normal >60 [facility] Comment on above: Order Comment: N1 Result Comment: Non- GFR Calc Performed By: #### L 3100.2300, L500.4050, L503.6030, L504.2610, L900.0098, L100.0100 #### [facility] [address] [place], [address] Globulin (S) [Mass/Vol] 3.9 g/dL Normal 2.2-4.2 [facility] Comment on above: Order Comment: N1 Performed By: #### L 3100.2300, L500.4050, L503.6030, L504.2610, L900.0098, L100.0100 #### [facility] [address] [place], [address] Glucose [Mass/Vol] 87 mg/dL Normal 74-106 [facility] Comment on above: Order Comment: N1 Performed By: #### L 3100.2300, L500.4050, L503.6030, L504.2610, L900.0098, L100.0100 #### [facility] [address] [place], [address] Potassium [Moles/Vol] 3.9 mmol/L Normal 3.5-5.1 [facility] Comment on above: Order Comment: N1 Performed By: #### L 3100.2300, L500.4050, L503.6030, L504.2610, L900.0098, L100.0100 #### [facility] [address] [place], [address] Sodium [Moles/Vol] 139 mmol/L Normal 136-145 [facility] Comment on above: Order Comment: N1 Performed By: #### L 3100.2300, L500.4050, L503.6030, L504.2610, L900.0098, L100.0100 #### [facility] [address] [place], [address] T PROT 6.5 g/dL Normal 6.4-8.2 [facility] Comment on above: Order Comment: N1 Performed By: #### L 3100.2300, L500.4050, L503.6030, L504.2610, L900.0098, L100.0100 #### [facility] [address] [place], [address] Urea nitrogen [Mass/Vol] 16 mg/dL Normal 7-18 [facility] Comment on above: Order Comment: N1 Performed By: #### L 3100.2300, L500.4050, L503.6030, L504.2610, L900.0098, L100.0100 #### [facility] [address] [place], [address] Estimated glomerular filtrat ion rate (GFR) AmericanOrdered By: Maco Singh on 01-24-2024 Estimated GFR (MDRD) Amer 116 mL/min >60 [facility] Comment on above: GFR Calc Ferritinon 01-24-2024 Ferritin [Mass/Vol] 62 ng/mL Normal 8-252 [facility] Comment on above: Order Comment: N1 Performed By: #### L 3100.2300, L500.4050, L503.6030, L504.2610, L900.0098, L100.0100 #### [facility] [address] [place], [address] Iron+Iron Binding Capacityon 01-24-2024 Iron [Mass/Vol] 29 ug/dL Low 50-170 [facility] Comment on above: Order Comment: N1 Performed By: #### L 3100.2300, L500.4050, L503.6030, L504.2610, L900.0098, L100.0100 #### [facility] [address] [place], [place], [id number] IRON SATURATION 11.8 Low 15.0-55.0 [facility] Comment on above: Order Comment: N1 Performed By: #### L 3100.2300, L500.4050, L503.6030, L504.2610, L900.0098, L100.0100 #### [facility] [address] [place], [address] TIBC 246 ug/dL Low 250-450 [facility] Comment on above: Order Comment: N1 Performed By: #### L 3100.2300, L500.4050, L503.6030, L504.2610, L900.0098, L100.0100 #### [facility] [address] [place], [address] LDHon 01-24-2024 LDH 129 U/L Normal 84-246 [facility] Comment on above: Order Comment: N1 Performed By: #### L 3100.2300, L500.4050, L503.6030, L504.2610, L900.0098, L100.0100 #### [facility] [address] [place], [address] Oncology Visit Reporton 01-12 Oncology Visit Report [facility] [address] [place] [address] OFFICE VISIT Date of Service: 01/24/24 1436 MR#: [id number] Acct: [id number] Name: NGUYEN QUEEN Rep #: [id number] : 1945 From: Maco Singh MD Age/Sex: 78/F Location: [facility] Status: Signed HPI Subjective Date of Service 01/24/24 Chief Complaint F/u for Iron deficiency anemia. History of Present Illness 78-year-old woman presented with right lower quadrant abdominal pain to [facility]. CT of the abdomen and pelvis on 03/05/2023 showed retrocecal abscess concerning for possible neoplastic perforation or diverticulitis, no evidence of metastatic disease. She underwent laparotomy with right hemicolectomy, excision of abscess on 03/06/23. She was found to have adenocarcinoma in the ascending colon with abscess formation into the pericolonic adipose tissue. MSI negative. Peritoneal fluid for cytology was negative for malignant cells. She was diagnosed with Colon cancer Stage IIA(pT3 pN0 M0) LN 20 negative. CEA on 03/06/23 was 5. She elected observation. Experienced abd pain September 2023. CEA elevated, 19.9 on 09/24/23. CT a/p with contrast performed on 10/10/[address] chest on 12/03/2023 showed R lower lobe nodule which is old. ct DNA done on 01/01/2024 was 0. She was found to have Iron deficiency anemia, was given IV iron and comes for follow up. [facility] Medical History Colon cancer Bilateral lower extremity edema Elevated CEA GI bleed Colitis Vision loss of right eye Vision loss of left eye Anemia Hypothyroidism Chronic pain Rheumatoid arthritis GERD (gastroesophageal reflux disease) Non-smoker Irregular heart beat Hypertension Migraines Seizures Diabetes mellitus Surgical History History of appendectomy Status post right hemicolectomy Hx of cholecystectomy Social History Smoking Status: Never smoker alcohol intake: never Intake Vital Signs 12/11/23 13:13 01/24/24 14:37 Height 5 ft 3 in 5 ft 3 in Weight: 72.688 kg BMI 28.3 BP 101/65 Blood Pressure Location Lt brachial Position Sitting Respiration 18 Pulse 77 Pulse Source Monitor Temp 97.3 F L Temperature Source Temporal Artery Pulse Oximetry (%) 98 Oxygen Delivery Method room air Intake Is patient in pain?: No Allergies Corticosteroids (Glucocorticoids) (steroids) Allergy (Severe, Verified 01/24/24 14:39) Shortness of breath acetaminophen (From Tylenol) Allergy (Intermediate, Verified 01/24/24 14:39) Shortness of breath aspirin Allergy (Intermediate, Verified 01/24/24 14:39) Shortness of breath diphenhydramine (From Benadryl) Allergy (Verified 01/24/24 14:39) PT UNSURE OF REACTION Penicillins Allergy (Verified 01/24/24 14:39) PT UNSURE OF REACTION Beef Containing Products Adverse Reaction (Verified 01/24/24 14:39) Other [place] And Derivatives Adverse Reaction (Verified 01/24/24 14:39) Other Food Allergies: Uncoded Adverse Reaction (Verified 01/24/24 14:39) Vomiting Medications ???Medication ???Instructions ???Recorded ???Confirmed ???Type aspirin 81 mg capsule 81 mg PO DAILY HEART 03/05/23 01/24/24 History glimepiride 2 mg tablet 2 mg PO DAILY diabetes 03/05/23 01/24/24 History levothyroxine 150 mcg tablet 150 mcg PO SUMOTU thyroid 03/05/23 01/24/24 History losartan 50 mg tablet 50 mg PO DAILY blood pressure 03/05/23 01/24/24 History metformin 500 mg tablet 500 mg PO BID diabetes 03/05/23 01/24/24 History famotidine 20 mg tablet (Acid 20 mg PO DAILY 10/16/23 01/24/24 History Controller) apixaban 5 mg (74 tabs) tablets in See Rx Instructions PO PER PKG DIR 11/21/23 01/24/24 Rx a dose pack (Leiyoo DVT-PE Treat #74 tabs 30D Start) levothyroxine 150 mcg capsule 225 mcg PO WETHFRSA thyroid 12/13/23 01/24/24 History Have you fallen in the past year?: Yes Central Venous Access Central Venous Access: No Laboratory Results 01/24/24 12/11/23 09/24/23 13:27 12:37 07:45 WBC 6.0 5.6 Hgb 10.7 L 8.9 L Hct 35.9 L 29.7 L Plt Count 469 H 548 H Iron 29 L TIBC 246 L Iron Saturation 11.8 L Ferritin 62 Carcinoembryonic Ag 19.9 H 03/21/23 03/06/23 11:48 04:17 WBC Hgb Hct Plt Count Iron TIBC Iron Saturation Ferritin Carcinoembryonic Ag 3.9 5.0 H Exam Physical Exam Const alert, oriented x3 and no apparent distress HEENT normocephalic, external ears normal and external nose normal Eyes conjunctivae normal and no scleral icterus Neck supple Extremity no clubbing, cyanosis or edema Neuro oriented x3, CN's II-XII intact bilaterally and moves all extrem (more content not included)... Normal [facility] Enterography Abd/[place] 01-21 Enterography Abd/Pel [facility] [address] [place] [address] Enterography Abd/Pel MR#: [id number] Acct: [id number] Name: NGUYEN QUEEN Rep #: [id number] : 1945 F 78 From: Santosh Martinez PCP: Dr. Jeff Simeon, DO Status: REG CLI Study: Enterography Abd/Pel Date of Exam: 01/22/24 Exam# [id number] Ordering Dr: Adriana Olmedo [id number] EXAM: MR ABDOMEN AND PELVIS WITHOUT INTRAVENOUS CONTRAST CLINICAL INDICATION: D64.9 - Anemia, unspecified TECHNIQUE: Multiplanar and multisequence MR images of the abdomen and pelvis without intravenous contrast. COMPARISON: CT scan of the abdomen and pelvis 11/05/2023. FINDINGS: LOWER THORAX: Unremarkable. No pleural effusion. ABDOMEN: LIVER: Unremarkable. Normal morphology. GALLBLADDER AND BILE DUCTS: Cholecystectomy. No intra- or extrahepatic biliary ductal dilation. PANCREAS: Unremarkable. No focal cystic mass. SPLEEN: Unremarkable. Normal size without focal cystic or solid mass. ADRENALS: Unremarkable. No nodules. KIDNEYS AND URETERS: Unremarkable. Normal renal size and position. No hydronephrosis. STOMACH AND BOWEL: Status post right colectomy with ileocolic anastomosis involving the mid transverse colon. PELVIS: APPENDIX: See above. BLADDER: Unremarkable. OVARIES: Unremarkable as visualized. No mass or complex cyst. UTERUS/CERVIX: Unremarkable. No mass. Endometrial stripe is normal in thickness and appearance. ABDOMEN and PELVIS: INTRAPERITONEAL SPACE: Unremarkable. No ascites or other fluid collection. VASCULATURE: Unremarkable. Abdominal aorta is non-dilated. LYMPH NODES: Persistent wall thickening of the transverse colon through the proximal sigmoid colon similar to the prior CT scan. Persistent prominence of the adjacent vasa recta with small scattered adjacent lymph nodes especially involving the residual transverse colon and proximal descending colon. No focal colon mass identified. MRI/Enterography Abd/Pel IMPRESSION: 1. Persistent wall thickening of the transverse colon through the proximal sigmoid colon with adjacent prominence of the vasa recta and numerous small scattered adjacent lymph nodes similar to the prior CT. Findings consistent with colitis likely due to inflammatory bowel disease. An underlying malignancy not excluded. Consider colonoscopy follow-up. 2. Cholecystectomy. 3. Status post right colectomy with ileocolic anastomosis involving the mid transverse colon. Electronically Signed: Santosh Dimas MD at 22:17 EST , CC: Dr. Jeff Simeon, ; BARRY Pearson Orthopaedic Technologist: Signed Normal [facility] Carcinoembryonic Antigenon 1 03-03-2023 CEA 10.7 ng/mL High 0.0-4.7 [facility] Comment on above: Result Comment: Nons mokers <3.9 Smokers <5.6 [facility] Electrochemiluminescence Immunoassay (ECLIA) Values obtained with different assay methods or kits cannot be used interchangeably. Results cannot be interpreted as absolute evidence of the presence or absence of malignant disease. Performed at: [employer] [address] [id number] [employer] Inspecting Dispatcher: Flako Araujo PhD, Phone: [phone] Performed By: #### L 3100.2300, L500.4050, L503.6030, L504.2610, L900.0098, L100.0100 #### [facility] [address] [facility] [place], [address] CBC W/Diff, Automatedon 12-13 Absolute Lymph 1.02 X10 3/uL Normal 0.83-4.51 [facility] Comment on above: Performed By: #### L 3100.2300, L500.4050, L503.6030, L504.2610, L900.0098, L100.0100 #### [facility] [address] [place], [place], [id number] Absolute Neut 2.6 X10 3/uL Normal 2.0-7.7 [facility] Comment on above: Performed By: #### L 3100.2300, L500.4050, L503.6030, L504.2610, L900.0098, L100.0100 #### [facility] [address] [place], [address] Basophils/100 WBC (Bld) 0.6 % Normal 0-1 [facility] Comment on above: Performed By: #### L 3100.2300, L500.4050, L503.6030, L504.2610, L900.0098, L100.0100 #### [facility] [address] [place], [address] Eosinophils/100 WBC (Bld) 2.2 % Normal 0-5 [facility] Comment on above: Performed By: #### L 3100.2300, L500.4050, L503.6030, L504.2610, L900.0098, L100.0100 #### [facility] [address] [place], [address] Erythrocyte distribution width (RBC) [Ratio] 15.5 % High 11.6-14.6 [facility] Comment on above: Performed By: #### L 3100.2300, L500.4050, L503.6030, L504.2610, L900.0098, L100.0100 #### [facility] [address] [place], [address] Hematocrit (Bld) [Volume fraction] 30.1 % Low 37-47 [facility] Comment on above: Performed By: #### L 3100.2300, L500.4050, L503.6030, L504.2610, L900.0098, L100.0100 #### [facility] [address] [place], [address] Hemoglobin (Bld) [Mass/Vol] 9.1 g/dL Low 12.0-15.0 [facility] Comment on above: Performed By: #### L 3100.2300, L500.4050, L503.6030, L504.2610, L900.0098, L100.0100 #### [facility] [address] [place], [address] IG% 1.300 High 0.0-0.9 [facility] Comment on above: Result Comment: IG% - Immature Granulocytes (promyelocytes, myelocytes and metamyelocytes) > 1% indicates that a LEFT SHIFT is Present. Performed By: #### L 3100.2300, L500.4050, L503.6030, L504.2610, L900.0098, L100.0100 #### [facility] [address] [place], [address] Lymphocytes/100 WBC (Bld) 22.1 % Normal 19-41 [facility] Comment on above: Performed By: #### L 3100.2300, L500.4050, L503.6030, L504.2610, L900.0098, L100.0100 #### [facility] [address] [place], [address] MCH (RBC) [Entitic mass] 26.6 pg Low 27.0-32.0 [facility] Comment on above: Performed By: #### L 3100.2300, L500.4050, L503.6030, L504.2610, L900.0098, L100.0100 #### [facility] [address] [place], [address] MCHC (RBC) [Mass/Vol] 30.2 g/dL Low 32-36 [facility] Comment on above: Performed By: #### L 3100.2300, L500.4050, L503.6030, L504.2610, L900.0098, L100.0100 #### [facility] [address] [place], [address] MCV (RBC) [Entitic vol] 88.0 fL Normal 81-99 [facility] Comment on above: Performed By: #### L 3100.2300, L500.4050, L503.6030, L504.2610, L900.0098, L100.0100 #### [facility] [address] [place], [address] Monocytes/100 WBC (Bld) 17.7 % High 0-10 [facility] Comment on above: Performed By: #### L 3100.2300, L500.4050, L503.6030, L504.2610, L900.0098, L100.0100 #### [facility] [address] [place], [address] Neutrophils/100 WBC (Bld) 56.1 % Normal 47-70 [facility] Comment on above: Performed By: #### L 3100.2300, L500.4050, L503.6030, L504.2610, L900.0098, L100.0100 #### [facility] [address] [place], [address] Nucleated RBC (Bld) [#/Vol] 0 10*3/uL Normal 0-5 [facility] Comment on above: Performed By: #### L 3100.2300, L500.4050, L503.6030, L504.2610, L900.0098, L100.0100 #### [facility] [address] [place], [address] Platelet mean volume (Bld) [Entitic vol] 9.0 fL Normal 6.2-12.0 [facility] Comment on above: Performed By: #### L 3100.2300, L500.4050, L503.6030, L504.2610, L900.0098, L100.0100 #### [facility] [address] [place], [address] Platelets (Bld) [#/Vol] 442 10*3/uL Normal 150-450 [facility] Comment on above: Performed By: #### L 3100.2300, L500.4050, L503.6030, L504.2610, L900.0098, L100.0100 #### [facility] [address] [place], [address] RBC (Bld) [#/Vol] 3.42 10*6/uL Low 4.2-5.4 [facility] Comment on above: Performed By: #### L 3100.2300, L500.4050, L503.6030, L504.2610, L900.0098, L100.0100 #### [facility] [address] [place], [address] RDW SD 49.6 fl High 35.1-43.9 [facility] Comment on above: Performed By: #### L 3100.2300, L500.4050, L503.6030, L504.2610, L900.0098, L100.0100 #### [facility] [address] [place], [address] WBC (Bld) [#/Vol] 4.6 10*3/uL Normal 4.4-11.0 [facility] Comment on above: Performed By: #### L 3100.2300, L500.4050, L503.6030, L504.2610, L900.0098, L100.0100 #### [facility] [address] [place], [address] Comprehensive Metabolic Prof ilon 01-01-2024 Albumin [Mass/Vol] 2.3 g/dL Low 3.2-5.0 [facility] Comment on above: Order Comment: 1 Performed By: #### L 3100.2300, L500.4050, L503.6030, L504.2610, L900.0098, L100.0100 #### [facility] [address] [place], [address] Albumin/Globulin [Mass ratio] 0.6 {ratio} Low 0.9-2.4 [facility] Comment on above: Order Comment: 1 Performed By: #### L 3100.2300, L500.4050, L503.6030, L504.2610, L900.0098, L100.0100 #### [facility] [address] [place], [address] ALK P 67 U/L Normal 45-117 [facility] Comment on above: Order Comment: 1 Performed By: #### L 3100.2300, L500.4050, L503.6030, L504.2610, L900.0098, L100.0100 #### [facility] [address] [place], [address] ALT [Catalytic activity/Vol] 15 U/L Normal 13-56 [facility] Comment on above: Order Comment: 1 Performed By: #### L 3100.2300, L500.4050, L503.6030, L504.2610, L900.0098, L100.0100 #### [facility] [address] [place], [address] AST [Catalytic activity/Vol] 10 U/L Low 15-37 [facility] Comment on above: Order Comment: 1 Performed By: #### L 3100.2300, L500.4050, L503.6030, L504.2610, L900.0098, L100.0100 #### [facility] [address] [place], [address] Bilirubin [Mass/Vol] 0.10 mg/dL Low 0.20-1.00 [facility] Comment on above: Order Comment: 1 Result Comment: For patients on eltrombopag therapy, use of Dimension Melvin TBIL is not recommended. Performed By: #### L 3100.2300, L500.4050, L503.6030, L504.2610, L900.0098, L100.0100 #### [facility] [address] [place], [address] BUN/CRE 25.3 RATIO High 10-20 [facility] Comment on above: Order Comment: 1 Performed By: #### L 3100.2300, L500.4050, L503.6030, L504.2610, L900.0098, L100.0100 #### [facility] [address] [place], [address] CA,Total 8.7 mg/dL Normal 8.5-10.1 [facility] Comment on above: Order Comment: 1 Performed By: #### L 3100.2300, L500.4050, L503.6030, L504.2610, L900.0098, L100.0100 #### [facility] [address] [place], [address] Chloride [Moles/Vol] 112 mmol/L High 98-107 [facility] Comment on above: Order Comment: 1 Performed By: #### L 3100.2300, L500.4050, L503.6030, L504.2610, L900.0098, L100.0100 #### [facility] [address] [place], [address] CO2 [Moles/Vol] 23.0 mmol/L Normal 21.0-32.0 [facility] Comment on above: Order Comment: 1 Performed By: #### L 3100.2300, L500.4050, L503.6030, L504.2610, L900.0098, L100.0100 #### [facility] [address] [place], [address] Creatinine [Mass/Vol] 0.59 mg/dL Normal 0.55-1.02 [facility] Comment on above: Order Comment: 1 Result Comment: The validity of the calculated GFR GFRAA in patients over 70 years has not been determined. Clinical correlation is essential. Performed By: #### L 3100.2300, L500.4050, L503.6030, L504.2610, L900.0098, L100.0100 #### [facility] [address] [place], [address] ECRCL 57.97 ml/min Normal [facility] Comment on above: Order Comment: 1 Performed By: #### L 3100.2300, L500.4050, L503.6030, L504.2610, L900.0098, L100.0100 #### [facility] [address] [place], [address] EST GFR - AA 127 mL/min Normal >60 [facility] Comment on above: Order Comment: 1 Result Comment: Afri can Citizen Of [place] GFR Calc Performed By: #### L 3100.2300, L500.4050, L503.6030, L504.2610, L900.0098, L100.0100 #### [facility] [address] [place], [address] GAP 5 Normal 5-15 [facility] Comment on above: Order Comment: 1 Performed By: #### L 3100.2300, L500.4050, L503.6030, L504.2610, L900.0098, L100.0100 #### [facility] [address] [place], [address] GFR/1.73 sq M.predicted among non-blacks MDRD (S/P/Bld) [Vol rate/Area] 105 mL/min/{1.73_m2} Normal >60 [facility] Comment on above: Order Comment: 1 Result Comment: Non- GFR Calc Performed By: #### L 3100.2300, L500.4050, L503.6030, L504.2610, L900.0098, L100.0100 #### [facility] [address] [place], [address] Globulin (S) [Mass/Vol] 3.6 g/dL Normal 2.2-4.2 [facility] Comment on above: Order Comment: 1 Performed By: #### L 3100.2300, L500.4050, L503.6030, L504.2610, L900.0098, L100.0100 #### [facility] [address] [place], [address] Glucose [Mass/Vol] 126 mg/dL High 74-106 [facility] Comment on above: Order Comment: 1 Result Comment: Fast ing Glucose result greater than or equal to 126 mg/dL suggests DIABETES MELLITUS per A.D.A. criteria. Performed By: #### L 3100.2300, L500.4050, L503.6030, L504.2610, L900.0098, L100.0100 #### [facility] [address] [place], [address] Potassium [Moles/Vol] 4.3 mmol/L Normal 3.5-5.1 [facility] Comment on above: Order Comment: 1 Performed By: #### L 3100.2300, L500.4050, L503.6030, L504.2610, L900.0098, L100.0100 #### [facility] [address] [place], [address] Sodium [Moles/Vol] 140 mmol/L Normal 136-145 [facility] Comment on above: Order Comment: 1 Performed By: #### L 3100.2300, L500.4050, L503.6030, L504.2610, L900.0098, L100.0100 #### [facility] [address] [place], [address] T PROT 5.9 g/dL Low 6.4-8.2 [facility] Comment on above: Order Comment: 1 Performed By: #### L 3100.2300, L500.4050, L503.6030, L504.2610, L900.0098, L100.0100 #### [facility] [address] [place], [address] Urea nitrogen [Mass/Vol] 15 mg/dL Normal 7-18 [facility] Comment on above: Order Comment: 1 Performed By: #### L 3100.2300, L500.4050, L503.6030, L504.2610, L900.0098, L100.0100 #### [facility] [address] [place], [address] Ferritinon 01-01-2024 Ferritin [Mass/Vol] 122 ng/mL Normal 8-252 [facility] Comment on above: Performed By: #### L 503.6550 ####[facility] [address] [place], [address] Iron+Iron Binding Capacityon 01-01-2024 Iron [Mass/Vol] 25 ug/dL Low 50-170 [facility] Comment on above: Order Comment: 1 Performed By: #### L 3100.2300, L500.4050, L503.6030, L504.2610, L900.0098, L100.0100 #### [facility] [address] [place], [address] IRON SATURATION 10.4 Low 15.0-55.0 [facility] Comment on above: Order Comment: 1 Performed By: #### L 3100.2300, L500.4050, L503.6030, L504.2610, L900.0098, L100.0100 #### [facility] [address] [place], [address] TIBC 240 ug/dL Low 250-450 [facility] Comment on above: Order Comment: 1 Performed By: #### L 3100.2300, L500.4050, L503.6030, L504.2610, L900.0098, L100.0100 #### [facility] [address] [place], [address] LDHon 01-01-2024 LDH 117 U/L Normal 84-246 [facility] Comment on above: Order Comment: 1 Performed By: #### L 3100.2300, L500.4050, L503.6030, L504.2610, L900.0098, L100.0100 #### [facility] [address] [place], [place], [address] NATERAon 01-01-2024 NATURA SEE SCANNED REPORT Normal [facility] Comment on above: Performed By: #### L 3100.2300, L500.4050, L503.6030, L504.2610, L900.0098, L100.0100 #### [facility] [address] [place], [address] ASCA IgG abOrdered By: Teodora pizarro Friend on 11-19-2023 Saccharomyces cerevisiae (Daquan)IgG 17 units 0-50 [facility] Comment on above: Negative: <45 Equivo urmila: 45-50 Positive: >50 Addendum DocumentOrdered By: Jarrell Crystal on 11-19-2023 Serum Immunofixation Comments Comment . [facility] Comment on above: Protein electrophore sis scan will follow via computer,mail, or plate embosser delivery. Albumin Elph [Mass/Vol]Order ed By: Jarrell Crystal on 11-19-2023 Albumin [Mass/Vol] 2.0 g/dL Low 2.9-4.4 [facility] Alpha 1 globulin Elph [Mass/ Vol]Ordered By: Jarrell Crystal on 11-19-2023 Yshvp-0-Hbbpueade (LAURA) 0.3 g/dL 0.0-0.4 [facility] Hhbne-1-Gjfdbcwvm (LAURA) 1.1 g/dL High 0.4-1.0 [facility] Atypical perinuclear antineu trophil cytoplasmic antibodies measurementOrdered By: Jarrell Crystal on 11-19-2023 Atypical p-ANCA <1:20 titer Neg:<1:20 [facility] Comment on above: *Additional results available. Contact laboratory/see report*The atypical pANCA pattern has been observed in asignificant percentage of patients with ulcerative colitis,primary sclerosing cholangitis and autoimmune hepatitis.Performed at: - [facility] [id number] Director: Chary Cox MD, Phone: [phone] at: - [facility] [address] [id number] Director: Flako Araujo PhD, Phone: [phone] Beef IgE Qn (S)Ordered By: Rose Mary Crystal on 11-19-2023 Beef Allergen (RAST) <0.10 kU/L Class 0 [facility] Beta globulin Elph [Mass/Vol ]Ordered By: Jarrell Crystal on 11-19-2023 Beta-Globulins (LAURA) 0.8 g/dL 0.7-1.3 [facility] C-reactive protein measureme nt by high sensitivity methodOrdered By: Jarrell Crystal on 11-19-2023 C-Reactive Protein Extended Range 21.60 mg/L High 0.0-3.0 [facility] Comment on above: C-Reactive Protein ( CRP) provides useful information for thediagnosis, therapy and monitoring of inflammatory processesand associated diseases. For the evaluation of Relative Riskfor Cardiovascular Disease, a High Sensitivity CRP (HSCRP)should be ordered. Centromere B antibody assayO rdered By: Jarrell Crystal on 11-19-2023 Centromere B Antibody <0.2 AI 0.0-0.9 [facility] Chitobioside IgA IA QnOrdere d By: Jarrell Crystal on 11-19-2023 Chitobioside Carbohydrat (ACCA) IgA 13 units 0-90 [facility] Comment on above: Negative: <80 Equivo urmila: 80-90 Positive: >90 Chitobioside IgA antibody as sayOrdered By: Jarrell Crystal on 11-19-2023 Chitobioside IgA IA Qn 13 units 0-90 [facility] Comment on above: Negative: <80 Equivo urmila: 80-90 Positive: >90 Chocolate IgE Qn (S)Ordered By: Jarrell Crystal on 11-19-2023 Chocolate Allergen (RAST) <0.10 kU/L Class 0 [facility] Chromatin antibody assayOrde red By: Jarrell Crystal on 11-19-2023 Antichromatin Antibodies <0.2 AI 0.0-0.9 [facility] Codfish IgE Qn (S)Ordered By : Jarrell Crystal on 11-19-2023 Codfish Allergen (RAST) <0.10 kU/L Class 0 [facility] Butte IgE Qn (S)Ordered By: Rose Mary Crystal on 11-19-2023 Butte Allergen (RAST) <0.10 kU/L Class 0 [facility] Cow milk IgE Qn (S)Ordered B y: Jarrell Crystal on 11-19-2023 Cow's Milk Allergen <0.10 kU/L Class 0 [facility] DNA double strand Ab Qn (S)O rdered By: Jarrell Crystal on 11-19-2023 Anti-Double Strand DNA Antibody 2 IU/mL 0-9 [facility] Comment on above: Negative <5 Equivoca l 5 - 9 Positive >9 Deamidated gliadin IgA antib emma assayOrdered By: Jarrell Crystal on 11-19-2023 Anti-Gliadin IgA Antibody 3 units 0-19 [facility] Comment on above: Negative 0 - 19 Weak Positive 20 - 30 Moderate to Strong Positive >30 Deamidated gliadin IgG antib emma assayOrdered By: Jarrell Crystal on 11-19-2023 Anti-Gliadin IgG Antibody 2 units 0-19 [facility] Comment on above: Negative 0 - 19 Weak Positive 20 - 30 Moderate to Strong Positive >30 Endomysial IgA antibody assa yOrdered By: Jarrell Crystal on 11-19-2023 Endomysial IgA Antibody Negative Negative [facility] Erythrocyte sedimentation ra teOrdered By: Jarrell Crystal on 11-19-2023 ESR (Bld) [Velocity] 33 mm/h High 0-30 [facility] Gamma globulin Elph [Mass/Vo l]Ordered By: Jarrell Crystal on 11-19-2023 Gamma Globulins (LAURA) 1.1 g/dL 0.4-1.8 [facility] IgA [Mass/Vol]Ordered By: Ra lisa Crystal on 11-19-2023 Immunoglobulin A 269 mg/dL 64-422 [facility] IgEOrdered By: Jarrell martinez on 11-19-2023 IgE 6 IU/mL 6-495 [facility] Immunoglobulin E 6 IU/mL 6-495 [facility] IgG [Mass/Vol]Ordered By: Ra lisa Crystal on 11-19-2023 Immunoglobulin G 1155 mg/dL 586-1602 [facility] Immunoglobulin M measurement Ordered By: Jarrell Crystal on 11-19-2023 Immunoglobulin M 97 mg/dL 26-217 [facility] Interpretation IEP [Interp]O rdered By: Jarrell Crystal on 11-19-2023 Immunofixation Screen Comment . [facility] Comment on above: No monoclonality det ected. Interpretation of serum or p lasma protein pattern by immunofixation (narrative resultOrdered By: Jarrell Crystal on 11-19-2023 Protein Fractions Immunofixation Vishnu [Interp] Not Observed g/dL Not Observed [facility] Sandra-1 antibody assayOrdered B y: Jarrell Crystal on 11-19-2023 SANDRA-1 Antibody <0.2 AI 0.0-0.9 [facility] Laboratory - Miscellaneous t estsOrdered By: Jarrell Crystal on 11-19-2023 Laboratory comment Vishnu (Report) Comment . [facility] Comment on above: Pattern is not sugge stive of Inflammatory Bowel Disease Service comment (Unsp spec) [Interp] Comment . [facility] Comment on above: Levels of Specific I gE Class Description of Class ----- < 0.10 0 Negative 0.10 - 0.31 0/I Equivocal/Low 0.32 - 0.55 I Low 0.56 - 1.40 II Moderate 1.41 - 3.90 III High 3.91 - 19.00 IV Very High 19.01 - 100.00 V Very High >100.00 Very High Laboratory comment Vishnu (Repo rt)Ordered By: Jarrell Crystal on 11-19-2023 IBD Serology Comment Comment . [facility] Comment on above: Pattern is not sugge stive of Inflammatory Bowel Disease Laminaribioside IgG IA QnOrd ered By: Jarrell Crystal on 11-19-2023 Laminaribioside Carbohyd (ALCA) IgG 7 units 0-60 [facility] Comment on above: Negative:<55 Equivoc al: 55-60 Positive: >60 Laminaribioside carbohydrate IgG antibody assayOrdered By: Jarrell Crystal on 11-19-2023 Laminaribioside IgG IA Qn 7 units 0-60 [facility] Comment on above: Negative:<55 Equivoc al: 55-60 Positive: >60 Mannobioside IgG IA QnOrdere d By: Jarrell Crystal on 11-19-2023 Mannobioside Carbohydrat (AMCA) IgG 23 units 0-100 [facility] Comment on above: Negative: <90 Equivo urmila: 90-100 Positive: >100 This test was developed and its performance characteristics determined by [employer]. It has not been cleared or approved by the Food and Drug Administration. The FDA has determined that such clearance or approval is not necessary. Neutrophil cytoplasmic Ab.cl assic Qn (S)Ordered By: Jarrell Crystal on 11-19-2023 Cytoplasmic ANCA (c-ANCA) Antibody <1:20 titer Neg:<1:20 [facility] Neutrophil cytoplasmic Ab.pe rinuclear IF (S) [Titer]Ordered By: Jarrell Crystal on 11-19-2023 Perinuclear ANCA (p-ANCA) Antibody <1:20 titer Neg:<1:20 [facility] Comment on above: The presence of posi tive fluorescence exhibiting P-ANCA orC-ANCA patterns alone is not specific for the diagnosis ofWegener's Granulomatosis (WG) or microscopic polyangiitis.Decisions about treatment should not be based solely onANCA IFA results. The [employer] ANCA Group Consensusrecommends follow up testing of positive sera with both NJ-3 and MPO-ANCA enzyme immunoassays. As many as 5% serumsamples are positive only by EIA. Ref. AM J Clin Ixomus1284;111:507-513. No Panel InformationOrdered By: Jarrell Crystal on 11-19-2023 Addendum Document Comment . [facility] Comment on above: Protein electrophore sis scan will follow via computer,mail, or plate embosser delivery. Tissue Transglutaminase IgG Ab 4 U/mL 0-5 [facility] Comment on above: Negative 0 - 5 Weak Positive 6 - 9 Positive >9 Peanut IgE Qn (S)Ordered By: Jarrell Crystal on 11-19-2023 Peanut Allergen (RAST) <0.10 kU/L Class 0 [facility] Pork IgE Qn (S)Ordered By: Rose Mary Crystal on 11-19-2023 Pork Allergen (RAST) <0.10 kU/L Class 0 [facility] Protein Fractions Immunofixa tion Vishnu [Interp]Ordered By: Jarrell Crystal on 11-19-2023 M-Shady (LAURA) Not Observed g/dL Not Observed [facility] FACILITIES MANAGEMENT EXECUTIVE abOrdered By: Jarrell Ng iend on 11-19-2023 FACILITIES MANAGEMENT EXECUTIVE Antibody <0.2 AI 0.0-0.9 [facility] SCL-70 extractable nuclear A b Qn (S)Ordered By: Jarrell Crystal on 11-19-2023 Scl-70 (Scleroderma) Antibody <0.2 AI 0.0-0.9 [facility] SS-A IgG antibody assayOrder ed By: Jarrell Crystal on 11-19-2023 SS-A/Ro IgG Antibody < 0.2 AI 0.0-0.9 [facility] SS-B IgG antibody assayOrder ed By: Jarrell Crystal on 11-19-2023 SS-B/La IgG Antibody < 0.2 AI 0.0-0.9 [facility] [place] IgE Qn (S)Ordered By: Jarrell Crystal on 11-19-2023 [place] Allergen IgE Antibody <0.10 kU/L Class 0 [facility] Serum DNA double strand anti body assay (units/volume)Ordered By: Jarrell Crystal on 11-19-2023 DNA double strand Ab Qn (S) 2 [IU]/mL 0-9 [facility] Comment on above: Negative <5 Equivoca l 5 - 9 Positive >9 Serum Scl-70 antibody assay (units/volume)Ordered By: Jarrell Crystal on 11-19-2023 SCL-70 extractable nuclear Ab Qn (S) <0.2 AI 0.0-0.9 [facility] Serum albumin/globulin ratio Ordered By: Jarrell Crystal on 11-19-2023 Albumin/Globulin (LAURA) 0.7 0.7-1.7 [facility] Serum beef IgE antibody assa y (units/volume)Ordered By: Jarrell Crystal on 11-19-2023 Beef IgE Qn (S) <0.10 kU/L Class 0 [facility] Serum classic neutrophil cyt oplasmic antibody assay (units/volume)Ordered By: Jarrell Crystal on 11-19-2023 Neutrophil cytoplasmic Ab.classic Qn (S) <1:20 titer Neg:<1:20 [facility] Serum codfish IgE antibody a ssay (units/volume)Ordered By: Jarrell Crystal on 11-19-2023 Codfish IgE Qn (S) <0.10 kU/L Class 0 [facility] Serum corn IgE antibody assa y (units/volume)Ordered By: Jarrell Crystal on 11-19-2023 [place] IgE Qn (S) <0.10 kU/L Class 0 [facility] Serum cow milk IgE antibody assay (units/volume)Ordered By: Jarrell Crystal on 11-19-2023 Cow milk IgE Qn (S) <0.10 kU/L Class 0 [facility] Serum mussel specific IgE an tibody assayOrdered By: Jarrell Crystal on 11-19-2023 Mussel Allergen IgE Antibody <0.10 kU/L Class 0 [facility] Serum or plasma IgA measurem ent (mass/volume)Ordered By: Jarrell Crystal on 11-19-2023 IgA [Mass/Vol] 269 mg/dL 64-422 [facility] Serum or plasma IgG measurem ent (mass/volume)Ordered By: Jarrell Crystal on 11-19-2023 IgG [Mass/Vol] 1155 mg/dL 586-1602 [facility] Serum or plasma alpha 1 glob ulin measurement by electrophoresis (mass/volume)Ordered By: Jarrell Crystal on 11-19-2023 Alpha 1 globulin Elph [Mass/Vol] 0.3 g/dL 0.0-0.4 [facility] Alpha 1 globulin Elph [Mass/Vol] 1.1 g/dL High 0.4-1.0 [facility] Serum or plasma beta globuli n measurement by electrophoresis (mass/volume)Ordered By: Jarrell Crystal on 11-19-2023 Beta globulin Elph [Mass/Vol] 0.8 g/dL 0.7-1.3 [facility] Serum or plasma gamma globul in measurement by electrophoresis (mass/volume)Ordered By: Jrarell Crystal on 11-19-2023 Gamma globulin Elph [Mass/Vol] 1.1 g/dL 0.4-1.8 [facility] Serum or plasma immunoelectr ophoresis interpretation (nominal result)Ordered By: Jarrell Crystal on 11-19-2023 Interpretation IEP [Interp] Comment . [facility] Comment on above: No monoclonality det ected. Serum or plasma mannobioside IgG antibody assay by immunoassay (units/volume)Ordered By: Jarrell Crystal on 11-19-2023 Mannobioside IgG IA Qn 23 units 0-100 [facility] Comment on above: Negative: <90 Equivo urmila: 90-100 Positive: >100 This test was developed and its performance characteristics determined by [employer]. It has not been cleared or approved by the Food and Drug Administration. The FDA has determined that such clearance or approval is not necessary. Serum or plasma protein pj urement (mass/volume)Ordered By: Jarrell Crystal on 11-19-2023 Protein [Mass/Vol] 5.3 g/dL Low 6.0-8.5 [facility] Serum peanut IgE antibody as say (units/volume)Ordered By: Jarrell Crystal on 11-19-2023 Peanut IgE Qn (S) <0.10 kU/L Class 0 [facility] Serum perinuclear neutrophil cytoplasmic antibody titer by immunofluorescenceOrdered By: Jarrell Crystal on 11-19-2023 Neutrophil cytoplasmic Ab.perinuclear IF (S) [Titer] <1:20 titer Neg:<1:20 [facility] Comment on above: The presence of posi tive fluorescence exhibiting P-ANCA orC-ANCA patterns alone is not specific for the diagnosis ofWegener's Granulomatosis (WG) or microscopic polyangiitis.Decisions about treatment should not be based solely onANCA IFA results. The [employer] Consensusrecommends follow up testing of positive sera with both NJ-3 and MPO-ANCA enzyme immunoassays. As many as 5% serumsamples are positive only by EIA. Ref. AM J Clin Mxozfi4738;111:507-513. Serum pork IgE antibody assa y (units/volume)Ordered By: Jarrell Crystal on 11-19-2023 Pork IgE Qn (S) <0.10 kU/L Class 0 [facility] Serum salmon IgE antibody as say (units/volume)Ordered By: Jarrell Crystal on 11-19-2023 [place] IgE Qn (S) <0.10 kU/L Class 0 [facility] Serum shrimp specific IgE an tibody assayOrdered By: Jarrell Crystal on 11-19-2023 Shrimp Allergen <0.10 kU/L Class 0 [facility] Serum soybean IgE antibody a ssay (units/volume)Ordered By: Jarrell Crystal on 11-19-2023 Soybean IgE Qn (S) <0.10 kU/L Class 0 [facility] Serum tissue transglutaminas e (tTG) IgA antibody assay (units/volume)Ordered By: Jarrell Crystal on 11-19-2023 tTG IgA Qn (S) <2 U/mL 0-3 [facility] Comment on above: Negative 0 - 3 Weak Positive 4 - 10 Positive >10 Tissue Transglutaminase (tTG) has been identified as the endomysial antigen. Studies have demonstr- ated that endomysial IgA antibodies have over 99% specificity for gluten sensitive enteropathy. Serum tuna IgE antibody assa y (units/volume)Ordered By: Jarrell Crystal on 11-19-2023 Tuna IgE Qn (S) <0.10 kU/L Class 0 [facility] Serum wheat IgE antibody ass ay (units/volume)Ordered By: Jarrell Crystal on 11-19-2023 Wheat IgE Qn (S) <0.10 kU/L Class 0 [facility] Serum whole egg IgE antibody assay (units/volume)Ordered By: Jarrell Crystal on 11-19-2023 Whole Egg IgE Qn (S) <0.10 kU/L Class 0 [facility] Comment on above: Performed at: - [facility] [address] [id number] Director: Flako Araujo PhD, Phone: [phone] at: [facility] [id number] Director: Chary Cox MD, Phone: [phone] Service comment (Unsp spec) [Interp]Ordered By: Jarrell Crystal on 11-19-2023 RAST Comment Comment . [facility] Comment on above: Levels of Specific I gE Class Description of Class ----- < 0.10 0 Negative 0.10 - 0.31 0/I Equivocal/Low 0.32 - 0.55 I Low 0.56 - 1.40 II Moderate 1.41 - 3.90 III High 3.91 - 19.00 IV Very High 19.01 - 100.00 V Very High >100.00 Very High Lopez antibody assayOrdered By: Jarrell Crystal on 11-19-2023 SM Antibody <0.2 AI 0.0-0.9 [facility] Soybean IgE Qn (S)Ordered By : Jarrell Crystal on 11-19-2023 Soybean Allergen (RAST) <0.10 kU/L Class 0 [facility] Tuna IgE Qn (S)Ordered By: Rose Mary Crystal on 11-19-2023 Tuna Allergen (RAST) <0.10 kU/L Class 0 [facility] Wheat IgE Qn (S)Ordered By: Jarrell Crystal on 11-19-2023 Wheat Allergen (RAST) <0.10 kU/L Class 0 [facility] Whole Egg IgE Qn (S)Ordered By: Jarrell Crystal on 11-19-2023 Egg Whole Allergen <0.10 kU/L Class 0 [facility] Comment on above: Performed at: - [id number] [place], [place] [id number] Director: Flako Araujo PhD, Phone: [phone] at: - [facility] [id number] Director: Chary Cox MD, Phone: [phone] tTG IgA Qn (S)Ordered By: Ra lisa Crystal on 11-19-2023 Tissue Transglutaminase IgA Ab <2 U/mL 0-3 [facility] Comment on above: Negative 0 - 3 Weak Positive 4 - 10 Positive >10 Tissue Transglutaminase (tTG) has been identified as the endomysial antigen. Studies have demonstr- ated that endomysial IgA antibodies have over 99% specificity for gluten sensitive enteropathy. C. difficile DNA MARCIA+probe Q l (Unsp spec)Ordered By: Maco Singh on 09-26-2023 Clostridioides difficile (PCR) [facility] Calprotectin stoolOrdered By : Maco Singh on 09-26-2023 Calprotectin stool 1110 ug/g High 0-120 [facility] Comment on above: Results verified b y repeat testingConcentration Interpretation Follow-Up< 5 - 50 ug/g Normal None>50 -120 ug/g Borderline Re-evaluate in 4-6 weeks >120 ug/g Abnormal Repeat as clinically indicatedPerformed at: - [facility] [id number] Director: Chary Cox MD, Phone: [phone] Stool Calprotectin 1110 ug/g High 0-120 [facility] Comment on above: Results verified b y repeat testingConcentration Interpretation Follow-Up< 5 - 50 ug/g Normal None>50 -120 ug/g Borderline Re-evaluate in 4-6 weeks >120 ug/g Abnormal Repeat as clinically indicatedPerformed at: - [facility] [id number] Director: Chary Cox MD, Phone: [phone] Clostridium difficile detect ion by polymerase chain reactionOrdered By: Maco Singh on 09-26-2023 C. difficile DNA MARCIA+probe Ql (Unsp spec) [facility] Lactoferrin IA Ql (Stl)Order ed By: Maco Singh on 09-26-2023 Stool Lactoferrin [facility] Lower GI hemoglobin IA Ql (S tl)Ordered By: Maco Singh on 09-26-2023 Stool Occult Blood (SU) Positive Abnormal [facility] Ova and parasitesOrdered By: Maco Singh on 09-26-2023 Ova and Parasites [facility] Stool gastrointestinal hemog lobin detection by immunologic methodOrdered By: Maco Singh on 09-26-2023 Lower GI hemoglobin IA Ql (Stl) Positive Abnormal [facility] Stool lactoferrin detection by immunoassayOrdered By: Maco Singh on 09-26-2023 Lactoferrin IA Ql (Stl) [facility] Blood band neutrophil count as percentage of total leukocytesOrdered By: Maco Singh on 09-24-2023 Band form neutrophils/100 WBC (Bld) 11 % High 0-5 [facility] Blood basophils/100 leukocyt esOrdered By: Maco Singh on 09-24-2023 Basophils/100 WBC (Bld) 2 % High 0-1 [facility] Blood eosinophils/100 leukoc ytesOrdered By: Maco Singh on 09-24-2023 Eosinophils/100 WBC (Bld) 13 % High 0-5 [facility] Blood lymphocytes/100 leukoc ytesOrdered By: Maco Singh on 09-24-2023 Lymphocytes/100 WBC (Bld) 24 % 19-41 [facility] Blood metamyelocytes/100 jerald kocytesOrdered By: Maco Singh on 09-24-2023 Metamyelocytes/100 WBC (Bld) 3 % High 0-1 [facility] Blood monocytes/100 leukocyt esOrdered By: Maco Singh on 09-24-2023 Monocytes/100 WBC (Bld) 14 % High 0-10 [facility] Blood promyelocytes/100 leuk ocytesOrdered By: Maco Singh on 09-24-2023 Promyelocytes/100 WBC (Bld) 1 % High 0-0 [facility] Blood segmented neutrophils/ 100 leukocytesOrdered By: Maco Singh on 09-24-2023 Segmented neutrophils/100 WBC (Bld) 32 % Low 47-70 [facility] Cells counted Molgen (Bld/Ti ss) [#]Ordered By: Maco Singh on 09-24-2023 Differential Total Cells Counted 100 MANUAL DIFF [facility] Erythrocyte morphology asses smentOrdered By: Maco Singh on 09-24-2023 RBC morphology finding Nom (Bld) NORM C+C NORMAL NORM C&C [facility] Pathologist review Vishnu (Unsp spec) [Interp]Ordered By: Maco Singh on 09-24-2023 Differential Pathologist's Review Reviewed [facility] Comment on above: Previous reported re sult: Kelle suggs Edited by: VADIM on 09/25/23:1528Neutrophilic left shift.MICROCYTOSISClinical correlation necessary.Charles Steinberg M.D. 09/25/23 AMENDED REPORT 09/25/23 1528 PATH REV previously reported as: Kelle suggs Platelet estimateOrdered By: Maco Singh on 09-24-2023 Platelets LM Ql (Bld) ADEQUATE ADEQ [facility] Platelets LM Ql (Bld)Ordered By: Maco Singh on 09-24-[address] [facility] Promyelocytes/100 WBC (Bld)O rdered By: Maco Singh on 09-24-2023 Promyelocytes % 1 % High 0-0 [facility] RBC morphology finding Nom ( Bld)Ordered By: Maco Singh on 09-24-2023 Red Blood Cell Morphology NORM C+C NORMAL NORM C&C [facility] Review by pathologistOrdered By: Maco Singh on 09-24-2023 Pathologist review Vishnu (Unsp spec) [Interp] Reviewed [facility] Comment on above: Previous reported re sult: Kelle suggs Edited by: VADIM on 09/25/23:1528Neutrophilic left shift.MICROCYTOSISClinical correlation necessary.Charles Steinberg M.D. 09/25/23 AMENDED REPORT 09/25/23 1528 PATH REV previously reported as: Kelle suggs Segmented neutrophils/100 WB C (Bld)Ordered By: Maco Singh on 09-24-2023 Neutrophils/100 WBC (Bld) 32 % Low 47-70 [facility] Total cell countOrdered By: Maco Singh on 09-24-2023 Cells counted Molgen (Bld/Tiss) [#] 100 MANUAL DIFF [facility] Basophil percentageOrdered B y: Flako Chavarria on 04-11-2023 Hemoglobin (Bld) [Mass/Vol] 11.0 g/dL 12.0-15.0 [facility] WBC (Bld) [#/Vol] 8.9 10*3/uL 4.4-11.0 [facility] Determination of erythrocyte mean corpuscular volume (MCV)Ordered By: Flako Chavarria on 04-11-2023 MCV (RBC) [Entitic vol] 78.2 fL 81-99 [facility] Erythrocyte distribution wid th ratioOrdered By: Flako Chavarria on 04-11-2023 Erythrocyte distribution width (RBC) [Ratio] 19.3 % 11.6-14.6 [facility] Erythrocyte distribution wid th standard deviationOrdered By: Flako Chavarria on 04-11-2023 Erythrocyte distribution width (RBC) [Entitic vol] 53.8 fL 35.1-43.9 [facility] Hematocrit Auto (Bld) [Volum e fraction]Ordered By: Flako Chavarria on 04-11-2023 Hematocrit (Bld) [Volume fraction] 37.3 % 37-47 [facility] Laboratory - Chemistry and C hemistry - challengeOrdered By: Flako Chavarria on 04-11-2023 Ferritin [Mass/Vol] 39 ng/mL 8-252 [facility] Laboratory - Hematology and Cell countsOrdered By: Flako Chavarria on 04-11-2023 MCH (RBC) [Entitic mass] 23.1 pg 27.0-32.0 [facility] MCHC (RBC) [Mass/Vol] 29.5 g/dL 32-36 [facility] Platelet mean volume (Bld) [Entitic vol] 11.0 fL 6.2-12.0 [facility] Platelets (Bld) [#/Vol] 356 10*3/uL 150-450 [facility] No Panel InformationOrdered By: Flako Chavarria on 04-11-2023 Endomysial IgA Antibody Negative Negative [facility] Tissue Transglutaminase IgG Ab Not Reportable [facility] RBC Auto (Bld) [#/Vol]Ordere d By: Flako Chavarria on 04-11-2023 RBC (Bld) [#/Vol] 4.77 10*6/uL 4.2-5.4 [facility] Serum or plasma IgA measurem ent (mass/volume)Ordered By: Flako Chavarria on 04-11-2023 IgA [Mass/Vol] 183 mg/dL 64-422 [facility] Comment on above: Performed at: [facility] [place] [id number] Director: lFako Araujo PhD, Phone: [phone] Serum tissue transglutaminas e IgA antibody assay (units/volume)Ordered By: Flako Chavarria on 04-11-2023 tTG IgA Qn (S) <2 U/mL 0-3 [facility] Comment on above: Negative 0 - 3 Weak Positive 4 - 10 Positive >10 Tissue Transglutaminase (tTG) has been identified as the endomysial antigen. Studies have demonstr- ated that endomysial IgA antibodies have over 99% specificity for gluten sensitive enteropathy. Absolute lymphocyte countOrd ered By: Maco Singh on 03-21-2023 Lymphocytes Auto (Unsp spec) [#/Vol] 1.27 10*3/uL 0.83-4.51 [facility] Automated lymphocyte count a s percentage of total leukocytesOrdered By: Maco Singh on 03-21-2023 Lymphocytes/100 WBC Auto (Unsp spec) 12.3 % 19-41 [facility] Basophil percentageOrdered B y: Maco Singh on 03-21-2023 Basophils/100 WBC (Bld) 0.6 % 0-1 [facility] Bilirubin [Mass/Vol] 0.20 mg/dL 0.20-1.00 [facility] Comment on above: For patients on eltr ombopag therapy, use of Dimension Melvin TBIL is not recommended. Chloride [Moles/Vol] 117 mmol/L 98-107 [facility] Eosinophils/100 WBC (Bld) 8.9 % 0-5 [facility] Glucose [Mass/Vol] 90 mg/dL 74-106 [facility] Hemoglobin (Bld) [Mass/Vol] 9.9 g/dL 12.0-15.0 [facility] LDH [Catalytic activity/Vol] 193 U/L 84-246 [facility] Monocytes/100 WBC (Bld) 7.6 % 0-10 [facility] Neutrophils (Bld) [#/Vol] 7.2 10*3/uL 2.0-7.7 [facility] Neutrophils/100 WBC (Bld) 69.9 % 47-70 [facility] Potassium [Moles/Vol] 3.8 mmol/L 3.5-5.1 [facility] Protein [Mass/Vol] 6.9 g/dL 6.4-8.2 [facility] Sodium [Moles/Vol] 144 mmol/L 136-145 [facility] WBC (Bld) [#/Vol] 10.4 10*3/uL 4.4-11.0 [facility] C. difficile DNA MARCIA+probe Q l (Unsp spec)Ordered By: Maco Singh on 03-21-2023 Clostridioides difficile (PCR) [facility] Clostridioides difficile nuc leic acid assay by PCROrdered By: Maco Singh on 03-21-2023 C. difficile DNA MARCIA+probe Ql (Unsp spec) [facility] Determination of erythrocyte mean corpuscular volume (MCV)Ordered By: Maco Singh on 03-21-2023 MCV (RBC) [Entitic vol] 76.8 fL 81-99 [facility] Erythrocyte distribution wid th ratioOrdered By: Maco Singh on 03-21-2023 Erythrocyte distribution width (RBC) [Ratio] 18.2 % 11.6-14.6 [facility] Erythrocyte distribution wid th standard deviationOrdered By: Maco Singh on 03-21-2023 Erythrocyte distribution width (RBC) [Entitic vol] 48.3 fL 35.1-43.9 [facility] Erythrocyte sedimentation ra teOrdered By: Maco Singh on 03-21-2023 ESR (Bld) [Velocity] 34 mm/h 0-30 [facility] Hematocrit Auto (Bld) [Volum e fraction]Ordered By: Maco Singh on 03-21-2023 Hematocrit (Bld) [Volume fraction] 33.7 % 37-47 [facility] Hemoglobin (Reticulocytes) [ Entitic mass]Ordered By: Maco Singh on 03-21-2023 Reticulocyte Hemoglobin Equivalent 26.4 pg Low 30-35 [facility] Hemoglobin in reticulocytes (mass per reticulocyte)Ordered By: Maco Singh on 03-21-2023 Hemoglobin (Reticulocytes) [Entitic mass] 26.4 pg 30-35 [facility] Immature granulocytes/100 WB C Auto (Bld)Ordered By: Maco Singh on 03-21-2023 Immature granulocytes/100 WBC (Bld) 0.700 % 0.0-0.9 [facility] Comment on above: IG% - Immature Granu locytes (promyelocytes, myelocytes and metamyelocytes) > 1% indicates that a LEFT SHIFT is Present. Iron measurement (mass/mass) Ordered By: Maco Singh on 03-21-2023 Iron (Unsp spec) [Mass/Mass] 41 ug/dL 50-170 [facility] Laboratory - Chemistry and C hemistry - challengeOrdered By: Maco Singh on 03-21-2023 Albumin/Globulin [Mass ratio] 0.8 {ratio} 0.9-2.4 [facility] ALP [Catalytic activity/Vol] 94 U/L 45-117 [facility] ALT [Catalytic activity/Vol] 23 U/L 13-56 [facility] CO2 [Moles/Vol] 24.0 mmol/L 21.0-32.0 [facility] Cobalamin (Vitamin B12) [Mass/Vol] 771 pg/mL 211-911 [facility] Ferritin [Mass/Vol] 100 ng/mL 8-252 [facility] Globulin (S) [Mass/Vol] 3.9 g/dL 2.2-4.2 [facility] Urea nitrogen/Creatinine [Mass ratio] 25.7 mg/mg 10-20 [facility] Laboratory - Hematology and Cell countsOrdered By: Maco Singh on 03-21-2023 MCH (RBC) [Entitic mass] 22.6 pg 27.0-32.0 [facility] MCHC (RBC) [Mass/Vol] 29.4 g/dL 32-36 [facility] Nucleated RBC/100 WBC (Bld) [Ratio] 0 % 0-5 [facility] Platelet mean volume (Bld) [Entitic vol] 10.2 fL 6.2-12.0 [facility] Platelets (Bld) [#/Vol] 429 10*3/uL 150-450 [facility] Lactoferrin IA Ql (Stl)Order ed By: Maco Singh on 03-21-2023 Stool Lactoferrin [facility] No Panel InformationOrdered By: Maco Singh on 03-21-2023 Stool Calprotectin 129 ug/g 0-120 [facility] Comment on above: Concentration Interp retation Follow-Up< 5 - 50 ug/g Normal None>50 -120 ug/g Borderline Re-evaluate in 4-6 weeks >120 ug/g Abnormal Repeat as clinically indicatedPerformed at: BN - [facility] [address] [id number] Director: Chary Cox MD, Phone: [phone] C-Reactive Protein Extended Range < 2.90 mg/L 0.0-3.0 [facility] Comment on above: C-Reactive Protein ( CRP) provides useful information for thediagnosis, therapy and monitoring of inflammatory processesand associated diseases. For the evaluation of Relative Riskfor Cardiovascular Disease, a High Sensitivity CRP (HSCRP)should be ordered. Estimated GFR (MDRD) Amer 120 mL/min >60 [facility] Comment on above: GFR Calc Estimated GFR (MDRD) Non-Af Amer 99 mL/min >60 [facility] Comment on above: Non- GFR Calc Immature Reticulocyte Fraction 15.10 % 3.00-15.90 [facility] Total Iron Binding Capacity 295 ug/dL 250-450 [facility] Miscellaneous Test Comment SEE SCANNED REPORT [facility] RBC Auto (Bld) [#/Vol]Ordere d By: Maco Singh on 03-21-2023 RBC (Bld) [#/Vol] 4.39 10*6/uL 4.2-5.4 [facility] Reticulocytes Auto (Bld) [#/ Vol]Ordered By: Maco Singh on 03-21-2023 Reticulocyte Count 2.31 % High 0.5-1.5 [facility] Reticulocytes/100 RBC (Bld) 2.31 % 0.5-1.5 [facility] Serum or plasma calcium pj urement (mass/volume)Ordered By: Maco Singh on 03-21-2023 Calcium [Mass/Vol] 9.0 mg/dL 8.5-10.1 [facility] Serum or plasma carcinoembry onic antigen measurement (mass/volume)Ordered By: Maco Singh on 03-21-2023 Carcinoembryonic Ag [Mass/Vol] 3.9 ng/mL 0.0-4.7 [facility] Comment on above: Nonsmokers <3.9 Smok ers <5.6[employer] Electrochemiluminescence Immunoassay(ECLIA)Values obtained with different assay methods or kitscannot be used interchangeably. Results cannot beinterpreted as absolute evidence of the presence orabsence of malignant disease.Performed at: [facility] [id number] Director: Flako Araujo PhD, Phone: [phone] Serum or plasma creatinine m easurement (mass/volume)Ordered By: Maco Singh on 03-21-2023 Creatinine [Mass/Vol] 0.62 mg/dL 0.55-1.02 [facility] Comment on above: The validity of the calculated GFR & GFRAA in patients over 70 years has not been determined. Clinical correlation is essential. Serum or plasma iron saturat ion measurement (mass fraction)Ordered By: Maco Singh on 03-21-2023 Iron saturation [Mass fraction] 13.9 % 15.0-55.0 [facility] Serum or plasma urea nitroge n measurement (mass/volume)Ordered By: Maco Singh on 03-21-2023 Urea nitrogen [Mass/Vol] 16 mg/dL 7-18 [facility] Stool lactoferrin detection by immunoassayOrdered By: Maco Singh on 03-21-2023 Lactoferrin IA Ql (Stl) [facility] Lactoferrin IA Ql (Stl) [facility] Thin prep Papanicolaou smear with manual screeningOrdered By: Maco Singh on 03-21-2023 Thin prep Papanicolaou smear with manual screening 3.0 g/dL 3.2-5.0 [facility] Thin prep Papanicolaou smear with manual screening 41 U/L 15-37 [facility] Thin prep Papanicolaou smear with manual screening 3 5-15 [facility] Absolute lymphocyte countOrd ered By: Richard Mckenzie on 03-15-2023 Lymphocytes Auto (Unsp spec) [#/Vol] 1.65 10*3/uL 0.83-4.51 [facility] Automated lymphocyte count a s percentage of total leukocytesOrdered By: Richard Mckenzie on 03-15-2023 Lymphocytes/100 WBC Auto (Unsp spec) 11.2 % 19-41 [facility] Basophil percentageOrdered B y: Richard Mckenzie on 03-15-2023 Basophils/100 WBC (Bld) 0.5 % 0-1 [facility] Eosinophils/100 WBC (Bld) 7.3 % 0-5 [facility] Hemoglobin (Bld) [Mass/Vol] 10.0 g/dL 12.0-15.0 [facility] Monocytes/100 WBC (Bld) 6.7 % 0-10 [facility] Neutrophils (Bld) [#/Vol] 10.7 10*3/uL 2.0-7.7 [facility] Neutrophils/100 WBC (Bld) 72.9 % 47-70 [facility] WBC (Bld) [#/Vol] 14.7 10*3/uL 4.4-11.0 [facility] Determination of erythrocyte mean corpuscular volume (MCV)Ordered By: Richard Mckenzie on 03-15-2023 MCV (RBC) [Entitic vol] 75.8 fL 81-99 [facility] Erythrocyte distribution wid th ratioOrdered By: Richard Mckenzie on 03-15-2023 Erythrocyte distribution width (RBC) [Ratio] 16.2 % 11.6-14.6 [facility] Erythrocyte distribution wid th standard deviationOrdered By: Richard Mckenzie on 03-15-2023 Erythrocyte distribution width (RBC) [Entitic vol] 41.7 fL 35.1-43.9 [facility] Hematocrit Auto (Bld) [Volum e fraction]Ordered By: Richard Mckenzie on 03-15-2023 Hematocrit (Bld) [Volume fraction] 34.4 % 37-47 [facility] Immature granulocytes/100 WB C Auto (Bld)Ordered By: Richard Mckenzie on 03-15-2023 Immature granulocytes/100 WBC (Bld) 1.400 % 0.0-0.9 [facility] Comment on above: IG% - Immature Granu locytes (promyelocytes, myelocytes and metamyelocytes) > 1% indicates that a LEFT SHIFT is Present. Laboratory - Hematology and Cell countsOrdered By: Richard Mckenzie on 03-15-2023 MCH (RBC) [Entitic mass] 22.0 pg 27.0-32.0 [facility] MCHC (RBC) [Mass/Vol] 29.1 g/dL 32-36 [facility] Nucleated RBC/100 WBC (Bld) [Ratio] 0 % 0-5 [facility] Platelets (Bld) [#/Vol] 625 10*3/uL 150-450 [facility] Platelet mean volume Augie-Ec ker (Bld) [Entitic vol]Ordered By: Richard Mckenzie on 03-15-2023 Platelet mean volume (Bld) [Entitic vol] 9.1 fL 6.2-12.0 [facility] RBC Auto (Bld) [#/Vol]Ordere d By: Richard Mckenzie on 03-15-2023 RBC (Bld) [#/Vol] 4.54 10*6/uL 4.2-5.4 [facility] Absolute lymphocyte countOrd ered By: Richard Mckenzie on 03-11-2023 Lymphocytes Auto (Unsp spec) [#/Vol] 1.55 10*3/uL 0.83-4.51 [facility] Automated lymphocyte count a s percentage of total leukocytesOrdered By: Richard Mckenzie on 03-11-2023 Lymphocytes/100 WBC Auto (Unsp spec) 14.9 % 19-41 [facility] Basophil percentageOrdered B y: Richard Mckenzie on 03-11-2023 Basophils/100 WBC (Bld) 0.6 % 0-1 [facility] Eosinophils/100 WBC (Bld) 8.1 % 0-5 [facility] Hemoglobin (Bld) [Mass/Vol] 7.9 g/dL 12.0-15.0 [facility] Monocytes/100 WBC (Bld) 7.2 % 0-10 [facility] Neutrophils (Bld) [#/Vol] 6.8 10*3/uL 2.0-7.7 [facility] Neutrophils/100 WBC (Bld) 65.5 % 47-70 [facility] WBC (Bld) [#/Vol] 10.4 10*3/uL 4.4-11.0 [facility] Chloride [Moles/Vol] 114 mmol/L 98-107 [facility] Glucose [Mass/Vol] 119 mg/dL 74-106 [facility] Comment on above: Fasting Glucose resu lt from 100 to 125 mg/dL suggests IMPAIRED HOMEOSTASIS per A.D.A. criteria. Potassium [Moles/Vol] 4.1 mmol/L 3.5-5.1 [facility] Comment on above: Slight Hemolysis, Re sult may be falsely increased. Sodium [Moles/Vol] 141 mmol/L 136-145 [facility] Determination of erythrocyte mean corpuscular volume (MCV)Ordered By: Richard Mckenzie on 03-11-2023 MCV (RBC) [Entitic vol] 75.4 fL 81-99 [facility] Erythrocyte distribution wid th ratioOrdered By: Richard Mckenzie on 03-11-2023 Erythrocyte distribution width (RBC) [Ratio] 14.0 % 11.6-14.6 [facility] Erythrocyte distribution wid th standard deviationOrdered By: Richard Mckenzie on 03-11-2023 Erythrocyte distribution width (RBC) [Entitic vol] 38.1 fL 35.1-43.9 [facility] Hematocrit Auto (Bld) [Volum e fraction]Ordered By: Richard Mckenzie on 03-11-2023 Hematocrit (Bld) [Volume fraction] 27.0 % 37-47 [facility] Immature granulocytes/100 WB C Auto (Bld)Ordered By: Richard Mckenzie on 03-11-2023 Immature granulocytes/100 WBC (Bld) 3.700 % 0.0-0.9 [facility] Comment on above: IG% - Immature Granu locytes (promyelocytes, myelocytes and metamyelocytes) > 1% indicates that a LEFT SHIFT is Present. Laboratory - Chemistry and C hemistry - challengeOrdered By: Richard Mckenzie on 03-11-2023 CO2 [Moles/Vol] 24.0 mmol/L 21.0-32.0 [facility] Urea nitrogen/Creatinine [Mass ratio] 46.3 mg/mg 10-20 [facility] Laboratory - Hematology and Cell countsOrdered By: Richard Mckenzie on 03-11-2023 MCH (RBC) [Entitic mass] 22.1 pg 27.0-32.0 [facility] MCHC (RBC) [Mass/Vol] 29.3 g/dL 32-36 [facility] Nucleated RBC/100 WBC (Bld) [Ratio] 0.2 % 0-5 [facility] Platelets (Bld) [#/Vol] 527 10*3/uL 150-450 [facility] No Panel InformationOrdered By: Richard Mckenzie on 03-11-2023 Estimated Creatinine Clearance Calc 60.60 ml/min [facility] Estimated GFR (MDRD) Amer 173 mL/min >60 [facility] Comment on above: GFR Calc Estimated GFR (MDRD) Non-Af Amer 143 mL/min >60 [facility] Comment on above: Non- GFR Calc Platelet mean volume Augie-Ec ker (Bld) [Entitic vol]Ordered By: Richard Mckenzie on 03-11-2023 Platelet mean volume (Bld) [Entitic vol] 9.5 fL 6.2-12.0 [facility] RBC Auto (Bld) [#/Vol]Ordere d By: Richard Mckenzie on 03-11-2023 RBC (Bld) [#/Vol] 3.58 10*6/uL 4.2-5.4 [facility] Serum or plasma calcium pj urement (mass/volume)Ordered By: Richard Mckenzie on 03-11-2023 Calcium [Mass/Vol] 8.5 mg/dL 8.5-10.1 [facility] Serum or plasma creatinine m easurement (mass/volume)Ordered By: Richard Mckenzie on 03-11-2023 Creatinine [Mass/Vol] 0.45 mg/dL 0.55-1.02 [facility] Comment on above: The validity of the calculated GFR & GFRAA in patients over 70 years has not been determined. Clinical correlation is essential. Serum or plasma urea nitroge n measurement (mass/volume)Ordered By: Richard Mckenzie on 03-11-2023 Urea nitrogen [Mass/Vol] 21 mg/dL 7-18 [facility] Thin prep Papanicolaou smear with manual screeningOrdered By: Santosh Ballard on 03-11-2023 Thin prep Papanicolaou smear with manual screening 155 mg/dL 74-106 [facility] Comment on above: MANAGEMENT OF PATIEN T CARE PER NURSING PROTOCOL Thin prep Papanicolaou smear with manual screeningOrdered By: Richard Mckenzie on 03-11-2023 Thin prep Papanicolaou smear with manual screening 3 5-15 [facility] Basophil percentageOrdered B y: Jameson Snell on 03-10-2023 Basophil percentage 3.3 mg/dL 2.5-4.9 [facility] Laboratory - Chemistry and C hemistry - challengeOrdered By: Jameson Snell on 03-10-2023 Magnesium [Mass/Vol] 2.0 mg/dL 1.6-2.6 [facility] Bacteria identified Anaer cx Nom (Unsp spec)Ordered By: Santosh Ballard on 03-06-2023 Anaerobic Culture Clostridium perfringens [facility] Anaerobic Culture Bacteroides thetaiotaomicron [facility] Anaerobic Culture Clostridium [facility] Anaerobic Culture Bacteroides thetaiotaomicron [facility] Bacteria identified Cx Nom ( Wound)Ordered By: Santosh Ballard on 03-06-2023 Wound Culture Escherichia coli [facility] Wound Culture Escherichia coli#2 [facility] Wound Culture Escherichia coli [facility] Wound Culture Escherichia coli#2 [facility] Cytology report of Body flui d Cyto stainOrdered By: Santosh Ballard on 03-06-2023 Cytology report Cyto stain Doc (Body fld) SEE PATHOLOGY REPORT [facility] Comment on above: Specimen submitted t o Anatomical Pathology Department for testing. Gram stain for investigation of transfusion reactionOrdered By: Santosh Ballard on 03-06-2023 Microscopic observation Gram stain Nom (Unsp spec) [facility] Microscopic observation Gram stain Nom (Unsp spec) [facility] Serum or plasma carcinoembry onic antigen measurement (mass/volume)Ordered By: Santosh Ballard on 03-06-2023 Carcinoembryonic Ag [Mass/Vol] 5.0 ng/mL 0.0-4.7 [facility] Comment on above: Nonsmokers <3.9 Smok ers <5.6[employer] Electrochemiluminescence Immunoassay(ECLIA)Values obtained with different assay methods or kitscannot be used interchangeably. Results cannot beinterpreted as absolute evidence of the presence orabsence of malignant disease.Performed at: [facility] [id number] Director: Flako Araujo PhD, Phone: [phone] Absolute lymphocyte countOrd ered By: Stas Arredondo on 03-05-2023 Lymphocytes Auto (Unsp spec) [#/Vol] 1.18 10*3/uL 0.83-4.51 [facility] Automated lymphocyte count a s percentage of total leukocytesOrdered By: Stas Arredondo on 03-05-2023 Lymphocytes/100 WBC Auto (Unsp spec) 7.9 % 19-41 [facility] Basophil percentageOrdered B y: Stas Arredondo on 03-05-2023 Basophils/100 WBC (Bld) 0.3 % 0-1 [facility] Bilirubin [Mass/Vol] 0.30 mg/dL 0.20-1.00 [facility] Comment on above: For patients on eltr ombopag therapy, use of Dimension Melvin TBIL is not recommended. Chloride [Moles/Vol] 102 mmol/L 98-107 [facility] Eosinophils/100 WBC (Bld) 0.8 % 0-5 [facility] Glucose [Mass/Vol] 252 mg/dL 74-106 [facility] Comment on above: Glucose result great er than or equal to 200 mg/dLsuggests DIABETES MELLITUS per A.D.A. criteria. Hemoglobin (Bld) [Mass/Vol] 10.7 g/dL 12.0-15.0 [facility] Monocytes/100 WBC (Bld) 6.6 % 0-10 [facility] Neutrophils (Bld) [#/Vol] 12.5 10*3/uL 2.0-7.7 [facility] Neutrophils/100 WBC (Bld) 83.7 % 47-70 [facility] Potassium [Moles/Vol] 3.9 mmol/L 3.5-5.1 [facility] Protein [Mass/Vol] 7.3 g/dL 6.4-8.2 [facility] Sodium [Moles/Vol] 137 mmol/L 136-145 [facility] WBC (Bld) [#/Vol] 14.9 10*3/uL 4.4-11.0 [facility] Basophil percentage 0-5 SEEN /hpf 0-5 [facility] Bilirubin Test strip Ql (U)O rdered By: Stas Arredondo on 03-05-2023 Bilirubin Ql (U) 3 mg/dL Negative [facility] Comment on above: COLOR OF URINE MAY A FFECT DIPSTICK RESULTS. Determination of erythrocyte mean corpuscular volume (MCV)Ordered By: Stas Arredondo on 03-05-2023 MCV (RBC) [Entitic vol] 74.5 fL 81-99 [facility] Erythrocyte distribution wid th ratioOrdered By: Stas Arredondo on 03-05-2023 Erythrocyte distribution width (RBC) [Ratio] 13.5 % 11.6-14.6 [facility] Erythrocyte distribution wid th standard deviationOrdered By: Stas Arredondo on 03-05-2023 Erythrocyte distribution width (RBC) [Entitic vol] 36.4 fL 35.1-43.9 [facility] Hematocrit Auto (Bld) [Volum e fraction]Ordered By: Stas Arredondo on 03-05-2023 Hematocrit (Bld) [Volume fraction] 35.7 % 37-47 [facility] Immature granulocytes/100 WB C Auto (Bld)Ordered By: Stas Arredondo on 03-05-2023 Immature granulocytes/100 WBC (Bld) 0.700 % 0.0-0.9 [facility] Comment on above: IG% - Immature Granu locytes (promyelocytes, myelocytes and metamyelocytes) > 1% indicates that a LEFT SHIFT is Present. Ketones Test strip Ql (U)Ord ered By: Stas Arredondo on 03-05-2023 Ketones Ql (U) 5 mg/dl Negative [facility] Laboratory - Chemistry and C hemistry - challengeOrdered By: Stas Arredondo on 03-05-2023 Albumin/Globulin [Mass ratio] 0.6 {ratio} 0.9-2.4 [facility] ALP [Catalytic activity/Vol] 107 U/L 45-117 [facility] ALT [Catalytic activity/Vol] 11 U/L 13-56 [facility] CO2 [Moles/Vol] 27.0 mmol/L 21.0-32.0 [facility] Globulin (S) [Mass/Vol] 4.5 g/dL 2.2-4.2 [facility] Lipase [Catalytic activity/Vol] 13 U/L 13-75 [facility] Comment on above: Please note:LIPASE r evised reference range effective 22. New Lipase methodology. Expected to produce lower values than the previous assay method. NEW Reference Range: 13 - 75 U/L Urea nitrogen/Creatinine [Mass ratio] 19.5 mg/mg 10-20 [facility] Laboratory - Hematology and Cell countsOrdered By: Stas Arredondo on 03-05-2023 MCH (RBC) [Entitic mass] 22.3 pg 27.0-32.0 [facility] MCHC (RBC) [Mass/Vol] 30.0 g/dL 32-36 [facility] Nucleated RBC/100 WBC (Bld) [Ratio] 0 % 0-5 [facility] Platelets (Bld) [#/Vol] 474 10*3/uL 150-450 [facility] Mucus LM Ql (Urine sed)Order ed By: Stas Arredondo on 03-05-2023 Mucus Ql (Urine sed) 0 SEEN /hpf [facility] Nitrite Test strip Ql (U)Ord ered By: Stas Arredondo on 03-05-2023 Nitrite Ql (U) Negative Negative [facility] No Panel InformationOrdered By: Stas Arredondo on 03-05-2023 Estimated Creatinine Clearance Calc 58.78 ml/min [facility] Estimated GFR (MDRD) Amer 87 mL/min >60 [facility] Comment on above: GFR Calc Estimated GFR (MDRD) Non-Af Amer 72 mL/min >60 [facility] Comment on above: Non- GFR Calc Urine RBC 0 SEEN /hpf 0-5 [facility] Platelet mean volume Augie-Ec ker (Bld) [Entitic vol]Ordered By: Stas Arredondo on 03-05-2023 Platelet mean volume (Bld) [Entitic vol] 9.6 fL 6.2-12.0 [facility] Protein Test strip Ql (U)Ord ered By: Stas Arredondo on 03-05-2023 Protein Ql (U) 30 mg/dl Negative [facility] RBC Auto (Bld) [#/Vol]Ordere d By: Stas Arredondo on 03-05-2023 RBC (Bld) [#/Vol] 4.79 10*6/uL 4.2-5.4 [facility] Serum or plasma calcium pj urement (mass/volume)Ordered By: Stas Arredondo on 03-05-2023 Calcium [Mass/Vol] 9.2 mg/dL 8.5-10.1 [facility] Serum or plasma creatinine m easurement (mass/volume)Ordered By: Stas Arredondo on 03-05-2023 Creatinine [Mass/Vol] 0.82 mg/dL 0.55-1.02 [facility] Comment on above: The validity of the calculated GFR & GFRAA in patients over 70 years has not been determined. Clinical correlation is essential. Serum or plasma urea nitroge n measurement (mass/volume)Ordered By: Stas Arredondo on 03-05-2023 Urea nitrogen [Mass/Vol] 16 mg/dL 7-18 [facility] Squamous epithelial cells de tection in urine sediment by light microscopyOrdered By: Stas Arredondo on 03-05-2023 Epithelial cells.squamous LM Ql (Urine sed) 0-5 SEEN /hpf 5-10 [facility] Thin prep Papanicolaou smear with manual screeningOrdered By: Stas Arredondo on 03-05-2023 Thin prep Papanicolaou smear with manual screening 2.8 g/dL 3.2-5.0 [facility] Thin prep Papanicolaou smear with manual screening 6 U/L 15-37 [facility] Thin prep Papanicolaou smear with manual screening 8 5-15 [facility] Urine blood detectionOrdered By: Stas Arredondo on 03-05-2023 RBC Ql (U) 10 /ul Negative [facility] Urine clarityOrdered By: Nadia Arredondo on 03-05-2023 Clarity (U) Sl. Cloudy Clear [facility] Urine color determinationOrd ered By: Stas Arredondo on 03-05-2023 Color (U) Yellow Yellow [facility] Urine glucose detectionOrder ed By: Stas Arredondo on 03-05-2023 Glucose Ql (U) Normal mg/dl Normal [facility] Urine leukocyte esterase det ection by dipstickOrdered By: Stas Arredondo on 03-05-2023 Leukocyte esterase Test strip Ql (U) 100 /ul Negative [facility] Urine pHOrdered By: Stas bains on 03-05-2023 pH (U) 5.0 [pH] 5.0 - 8.0 [facility] Urine sediment bacteria coun t by microscopy (number/high power field)Ordered By: Stas Arredondo on 03-05-2023 Bacteria LM.HPF (Urine sed) [#/Area] 1 /[HPF] None Seen [facility] Urine specific gravity measu rementOrdered By: Stas Arredondo on 03-05-2023 Specific gravity (U) [Rel density] 1.025 1.002-1.03 0 [facility] Urine urobilinogen measureme ntOrdered By: Stas Arredondo on 03-05-2023 Urobilinogen Ql (U) 1 mg/dl Normal [facility] Whole blood hemoglobin A1c/t otal hemoglobin ratio (mass fraction)Ordered By: Stas Arredondo on 03-05-2023 HbA1c (Bld) [Mass fraction] 6.6 % 3.8-5.6 [facility] Comment on above: Normal < 5.7 % Predi abetic 5.7 - 6.4 % Diabetic >or= 6.5 % Please note range changes. CBC W Auto Differential pane l (Bld)on 04-06-2022 Basophils (Bld) [#/Vol] 0.03 10*3/uL Normal <0.11 [facility] Comment on above: Order Comment: Speci men Type: BLOOD SPECIMEN Ordering Facility: [facility] Address: [address] [place] [id number] Performed By: #### 5 7021-8 #### [facility] CLIA [id number] [address] [place] Basophils/100 WBC (Bld) 0.2 % Normal [facility] Comment on above: Order Comment: Speci men Type: BLOOD SPECIMEN Ordering Facility: [facility] Address: [address] [place] [address] Performed By: #### 5 7021-8 #### [facility] CLIA [id number] [address] [place] [address] [place] Differential cell count method Nom (Bld) Auto Normal [facility] Comment on above: Order Comment: Speci men Type: BLOOD SPECIMEN Ordering Facility: [facility] Address: [address] [address] Performed By: #### 5 7021-8 #### [facility] CLIA [id number] [address] [place] Eosinophils (Bld) [#/Vol] 10*3/uL Normal <0.46 [facility] Comment on above: Order Comment: Speci men Type: BLOOD SPECIMEN Ordering Facility: [facility] Address: [address] [place] [address] Performed By: #### 5 7021-8 #### [facility] CLIA [id number] [address] Eosinophils/100 WBC (Bld) 0.1 % Normal [facility] Comment on above: Order Comment: Speci men Type: BLOOD SPECIMEN Ordering Facility: [facility] Address: [address] [place] [address] Performed By: #### 5 7021-8 #### [facility] CLIA [id number] [address] [place] Erythrocyte distribution width (RBC) [Ratio] 15.9 % High 11.5-15.0 [facility] Comment on above: Order Comment: Speci men Type: BLOOD SPECIMEN Ordering Facility: [facility] Address: [address] [place] [address] Performed By: #### 5 7021-8 #### [facility] CLIA [id number] [address] [place] [address] [place] Hematocrit (Bld) [Volume fraction] 36.5 % Normal 36.0-46.0 [facility] Comment on above: Order Comment: Speci men Type: BLOOD SPECIMEN Ordering Facility: [facility] Address: [address] [place] [address] Performed By: #### 5 7021-8 #### [facility] CLIA [id number] [address] [place] Hemoglobin (Bld) [Mass/Vol] 10.7 g/dL Low 11.5-15.5 [facility] Comment on above: Order Comment: Speci men Type: BLOOD SPECIMEN [facility] Address: [address] [place] [address] Performed By: #### 5 7021-8 #### [facility] CLIA [id number] [address] [place] Immature granulocytes (Bld) [#/Vol] 0.07 10*3/uL Normal <0.10 [facility] Comment on above: Order Comment: Speci men Type: BLOOD SPECIMEN [facility] Facility[facility] Address: [address] [place] [address] Performed By: #### 5 7021-8 #### [facility] CLIA [id number] [address] Immature granulocytes/100 WBC (Bld) 0.5 % Normal [facility] Comment on above: Order Comment: Speci men Type: BLOOD SPECIMEN Ordering Facility: [facility] Address: [address] [address] Performed By: #### 5 7021-8 #### [facility] CLIA [id number] [address] [place] Lymphocytes (Bld) [#/Vol] 1.06 10*3/uL Normal 1.00-4.0 0 [facility] Comment on above: Order Comment: Speci men Type: BLOOD SPECIMEN Ordering Facility: [facility] Address: [address] [address] Performed By: #### 5 7021-8 #### [facility] CLIA [id number] [address] [place] [address] [place] Lymphocytes/100 WBC (Bld) 8.1 % Normal [facility] Comment on above: Order Comment: Speci men Type: BLOOD SPECIMEN [facility]ing Facility: [facility] Address: [address] [place] [address] Performed By: #### 5 7021-8 #### [facility] CLIA [id number] 1000 [place] [address] [place] MCH (RBC) [Entitic mass] 22.4 pg Low 26.0-34.0 [facility] Comment on above: Order Comment: Speci men Type: BLOOD SPECIMEN Ordering Facility: [facility] Address: [address] [address] Performed By: #### 5 7021-8 #### [facility] CLIA [id number] 1000 [place] [address] [place] MCHC (RBC) [Mass/Vol] 29.3 g/dL Low 30.5-36.0 [facility] Comment on above: Order Comment: Speci men Type: BLOOD SPECIMEN [facility]ing [facility] Address: [address] [address] Performed By: #### 5 7021-8 #### [facility] CLIA [id number] [address] [place] MCV (RBC) [Entitic vol] 76.5 fL Low 80.0-100.0 M [facility] Comment on above: Order Comment: Speci men Type: BLOOD SPECIMEN [facility] Address: [address] [address] Performed By: #### 5 7021-8 #### [facility] CLIA [id number] [address] [place] [address] [place] Monocytes (Bld) [#/Vol] 1.41 10*3/uL High <0.87 [facility] Comment on above: Order Comment: Speci men Type: BLOOD SPECIMEN [facility] Address: [address] [address] Performed By: #### 5 7021-8 #### [facility] CLIA [id number] 1000 [place] [address] [place] Monocytes/100 WBC (Bld) 10.7 % Normal [facility] Comment on above: Order Comment: Speci men Type: BLOOD SPECIMEN Order[facility]: [facility] Address: [address] [address] Performed By: #### 5 7021-8 #### [facility] CLIA [id number] 1000 [place] [address] [place] Neutrophils (Bld) [#/Vol] 10.54 10*3/uL High 1.45-7. 50 [facility] Comment on above: Order Comment: Speci men Type: BLOOD SPECIMEN [facility] Address: [address] [place] [address] Performed By: #### 5 7021-8 #### [facility] CLIA [id number] [address] [place] Neutrophils/100 WBC (Bld) 80.4 % Normal [facility] Comment on above: Order Comment: Speci men Type: BLOOD SPECIMEN [facility] Address: [address] [address] Performed By: #### 5 7021-8 #### [facility] CLIA [id number] 1000 [place] [address] [place] Nucleated RBC (Bld) [#/Vol] 10*3/uL Normal <0.01 [facility] Comment on above: Order Comment: Speci men Type: BLOOD SPECIMEN Order[facility] Address: [address] [address] Performed By: #### 5 7021-8 #### [facility] CLIA [id number] 1000 [place] [address] [place] Nucleated RBC/100 WBC (Bld) [Ratio] 0.0 /100 WBC Normal [facility] Comment on above: Order Comment: Speci men Type: BLOOD SPECIMEN Ordering Facility: [facility] Address: [address] [address] Performed By: #### 5 7021-8 #### [facility] CLIA [id number] [address] [place] [address] [place] Platelet mean volume (Bld) [Entitic vol] 10.8 fL Normal 9.0-12.7 [facility] Comment on above: Order Comment: Speci men Type: BLOOD SPECIMEN [facility] Address: [address] [place] [address] Performed By: #### 5 7021-8 #### [facility] CLIA [id number] [address] [place] [address] [place] Platelets (Bld) [#/Vol] 374 10*3/uL Normal 150-400 [facility] Comment on above: Order Comment: Speci men Type: BLOOD SPECIMEN [facility] Address: [address] [place] [address] Performed By: #### 5 7021-8 #### [facility] CLIA [id number] [address] [place] [address] [place] RBC (Bld) [#/Vol] 4.77 10*6/uL Normal 3.90-5.20 [facility] Comment on above: Order Comment: Speci men Type: BLOOD SPECIMEN Ordering Facility[facility] Address: [address] [place] [address] Performed By: #### 5 7021-8 #### [facility] CLIA [id number] 1000 [place] [address] [place] WBC (Bld) [#/Vol] 13.12 10*3/uL High 3.70-11.00 [facility] Comment on above: Order Comment: Speci men Type: BLOOD SPECIMEN [facility] Address: [address] [place] [address] Performed By: #### 5 7021-8 #### [facility] CLIA [id number] [address] [place] CNCOon 04-06-2022 CNCO Letter Text Normal [facility] CNDSon 04-06-2022 CNDS HNO ID: [id number] Author: Laly Nolan PA-C Service: General Surgery Author Type: Physician Grain Drier Operator Type: Discharge Summary Filed: 04/06/2022 10:08 AM Note Text: ----- Attestation signed by Jessee Holloway MD at 04/06/2022 6:44 PM Attending Note I have personally performed a face to face assessment of the patient and have reviewed the FAZAL note. I performed a substantive portion of the visit including all aspects of the following. My mccurdy findings include: Doing well post op Other additions or changes: None Signature: Jessee Holloway MD Date: 04/06/2022 Time: 6:44 PM ----- DISCHARGE SUMMARY PATIENT NAME: Nguyen Queen Code Status: Not on file Highest Readmission Risk Score: 11 The 30 day readmissions risk score is derived from an internally validated risk model which evaluates patient level characteristics, utilization history, medication orders and lab results up until the day of discharge. Patients with a score of 40 or above are considered highest risk for readmission. Specific patient level drivers will be listed at the bottom of the summary. Admission Information Admission Information ADMIT DATE: 04/05/2022 DISCHARGE DATE: 04/06/2022 MY DOCTORS AND MEDICAL TEAM: My Main Hospital Doctor: Jessee Holloway MD Primary Care Provider: Jeff Simeon DO My Medical Team Members: Treatment Team: Attending Provider: Jessee Holloway MD MY CONDITION AT DISCHARGE: Stable REASON I WAS IN THE HOSPITAL: acute cholecystitis SUMMARY OF WHAT HAPPENED WHILE I WAS IN THE HOSPITAL: You came into the hospital for a scheduled laparoscopic cholecystectomy. You were taken to the operating room with Dr. Holloway for a laparoscopic cholecystectomy with intraoperative cholangiograms. You were recovered and transferred to the nursing floor for continued observation and pain control. At discharge you were tolerating your diet and pain was controlled. OTHER PROBLEMS/DIAGNOSIS: Active Problems: * No active hospital problems. * Resolved Problems: * No resolved hospital problems. * OPERATIONS PERFORMED WHILE IN THE HOSPITAL: laparoscopic cholecystectomy with intraoperative cholangiograms IMPORTANT TEST/PROCEDURES: No procedures performed TEST RESULTS NOT AVAILABLE AT THIS TIME: Pathology results Discharge Disposition Discharge Disposition: Home With Self Care Activity When You Leave the Hospital Lifting is restricted to: No lifting >20 lbs until post op appointment May shower May shower; no baths, hot tub or pool May use stairs No driving for: While on narcotic pain medication No prolonged bedrest, longer than 8 hours in a 24 hour period No walking restrictions Resume pre-hospital activity No lifting >20lbs until post op Diet Instructions Drink 6 to 8 glasses of fluids per day Low Fat Slowly introduce fatty foods over 1-2 weeks For Pain When You Leave the Hospital Apply a covered cold pack to the area No alcohol or driving while on pain medication Use acetaminophen (Tylenol) as recommended on the bottle Use ibuprofen (Motrin, Advil) as recommended on the bottle Use the dispensed medication (see prescription) Tylenol (acetaminophen) up to 650mg (2 over the counter 325mg) every 6 hours Roxicodone 5mg every 6 hours as needed for pain. You should use an fzgo-mvo-njkexpz stool softener (Docusate sodium) and/or a fiber supplement (Metamucil, Fiber Con) every day while taking prescribed pain medication Wound/Surgical Site Care Leave open to air Some bleeding from the wound/surgical site can be expected. If excessive, see a doctor at once Steri strips can get wet. Let them fall off or remove in: 2 weeks Wash your hands frequently, especially before touching your incision, after using restroom and before eating You may change your dressing daily beginning on: Remove dressing tomorrow. No need to replace Call Your Doctor If There is an unusual odor from the wound area There is severe pain at the operative site You have difficulty urinating or pain when urinating You have lightheadedness, fainting, or confusion You have pain and swelling in your legs, especially if it is only on one side and not the other You have persistent nausea/vomiting over 24 hours You have redness, swelling, pus or drainage from the wound Your temperature is greater than 101F Follow Up Appointments Follow-Up Appointment Or Nguyen Campos PA-C When: In 2 weeks Jessee Holloway MD [phone] [address] [address] PCP Requested Referral Additional Provider to Provider Information: S/p hiwot gardnere Treatment Team: Attending Provider: Jessee Holloway MD Transitions of Care Critical Issues: none LABS AND PROCEDURES PENDING AT DISCHARGE: Pathology Resul (more content not included)... Normal [facility] Comprehensive metabolic 2000 panelon 04-06-2022 Albumin [Mass/Vol] 3.6 g/dL Low 3.9-4.9 [facility] Comment on above: Order Comment: Speci men Type: BLOOD SPECIMEN [facility] Address: [address] [place] [address] Performed By: #### 2 4323-8 #### [facility] CLIA [id number] [address] [place] [facility] ALP [Catalytic activity/Vol] 86 U/L Normal 34-123 [facility] Comment on above: Order Comment: Speci men Type: BLOOD SPECIMEN Ordering [facility] Address: [address] [address] Performed By: #### 2 4323-8 #### [facility] CLIA [id number] [address] [place] [facility] ALT [Catalytic activity/Vol] 54 U/L High 7-38 [facility] Comment on above: Order Comment: Speci men Type: BLOOD SPECIMEN [facility] Address: [address] [address] Performed By: #### 2 4323-8 #### [facility] CLIA [id number] [address] [place] [address] [place] [facility] Anion gap [Moles/Vol] 6 mmol/L Low 9-18 [facility] Comment on above: Order Comment: Speci men Type: BLOOD SPECIMEN [facility] Address: [address] [address] Performed By: #### 2 4323-8 #### [facility] CLIA [id number] [address] [place] [address] [place] AST [Catalytic activity/Vol] 55 U/L High 13-35 [facility] Comment on above: Order Comment: Speci men Type: BLOOD SPECIMEN [facility] Address: [address] [place] [address] Performed By: #### 2 4323-8 #### [facility] CLIA [id number] [address] [place] [address] [place] Bilirubin [Mass/Vol] 0.5 mg/dL Normal 0.2-1.3 [facility] Comment on above: Order Comment: Speci men Type: BLOOD SPECIMEN [facility] Address: [address] [place] [address] Performed By: #### 2 4323-8 #### [facility] CLIA [id number] [address] [place] Calcium [Mass/Vol] 9.0 mg/dL Normal 8.5-10.2 [facility] Comment on above: Order Comment: Speci men Type: BLOOD SPECIMEN [facility] Address: [address] [place] [address] Performed By: #### 2 4323-8 #### [facility] CLIA [id number] [address] [place] [address] [place] Chloride [Moles/Vol] 105 mmol/L Normal 97-105 [facility] Comment on above: Order Comment: Speci men Type: BLOOD SPECIMEN [facility] Address: [address] [place] [address] Performed By: #### 2 4323-8 #### [facility] CLIA [id number] [address] [place] [address] [place] CO2 [Moles/Vol] 30 mmol/L Normal 22-30 [facility] Comment on above: Order Comment: Speci men Type: BLOOD SPECIMEN [facility] Address: [address] [place] [address] Performed By: #### 2 4323-8 #### [facility] CLIA [id number] [address] [place] Creatinine [Mass/Vol] 0.65 mg/dL Normal 0.58-0.96 [facility] Comment on above: Order Comment: Marcelina plascencia Type: BLOOD SPECIMEN [facility] Address: [address] [place] [address] Performed By: #### 2 4323-8 #### [facility] CLIA [id number] [address] [place] ESTIMATED GLOMERULAR FILTRATION RATE 93 mL/min/1.73m??? Normal >=60 [facility] Comment on above: Order Comment: Marcelina plascencia Type: BLOOD SPECIMEN [facility] Address: [address] [place] [address] Result Comment: Sonya mated Glomerular Filtration Rate (eGFR) is calculated using the 2020 CKD-EPI creatinine equation. This equation utilizes serum creatinine, sex, and age as parameters. The creatinine assay has traceable calibration to isotope dilution-mass spectrometry. Refer to KDIGO guidelines for clinical interpretation. In patients with unstable renal function, e.g. those with acute kidney injury, the eGFR may not accurately reflect actual GFR. Performed By: #### 2 4323-8 #### [facility] CLIA [id number] [address] [place] [address] [place] Glucose [Mass/Vol] 181 mg/dL High 74-99 [facility] Comment on above: Order Comment: Marcelina plascencia Type: BLOOD SPECIMEN [facility] Address: [address] [place] [address] Result Comment: The [place] Diabetes Association (ADA) provides guidance for cutoff values for fasting glucose and random glucose. The ADA defines fasting as no caloric intake for at least 8 hours. Fasting plasma glucose results between 100 to 125 mg/dL indicate increased risk for diabetes (prediabetes). Fasting plasma glucose results greater than or equal to 126 mg/dL meet the criteria for diagnosis of diabetes. In the absence of unequivocal hyperglycemia, results should be confirmed by repeat testing. In a patient with classic symptoms of hyperglycemia or hyperglycemic crisis, random plasma glucose results greater than or equal to 200 mg/dL meet the criteria for diagnosis of diabetes. Reference: Standards of Medical Care in Diabetes 2016, [place] Diabetes Association. Diabetes Care. 2016.39(Suppl 1). Performed By: #### 2 4323-8 #### [facility] CLIA [id number] [address] [place] [address] [place] Potassium [Moles/Vol] 4.8 mmol/L Normal 3.7-5.1 [facility] Comment on above: Order Comment: Speci men Type: BLOOD SPECIMEN [facility] Address: [address] [address] Performed By: #### 2 4323-8 #### [facility] CLIA [id number] [address] [place] [address] [place] Protein [Mass/Vol] 6.4 g/dL Normal 6.3-8.0 [facility] Comment on above: Order Comment: Speci men Type: BLOOD SPECIMEN [facility] Address: [address] [place] [address] Performed By: #### 2 4323-8 #### [facility] CLIA [id number] [address] [place] Sodium [Moles/Vol] 141 mmol/L Normal 136-144 [facility] Comment on above: Order Comment: Speci men Type: BLOOD SPECIMEN [facility] Address: [address] [place] [address] Performed By: #### 2 4323-8 #### [facility] CLIA [id number] [address] [place] Urea nitrogen [Mass/Vol] 9 mg/dL Normal 7-21 [facility] Comment on above: Order Comment: Speci men Type: BLOOD SPECIMEN [facility] Address: [address] [place] [address] Performed By: #### 2 4323-8 #### [facility] CLIA [id number] [address] [place] [address] [place] ANES POSTPROC EVALon 023 ANES POSTPROC EVAL HNO ID: [id number] Author: Nohemi Ortiz MD Service: Anesthesiology Author Type: Anesthesiologist Type: Anesthesia Postprocedure Evaluation Filed: 04/05/2022 2:29 PM Note Text: POST ANESTHESIA EVALUATION NOTE : 1945 Procedure Summary Date: 04/05/22 Room / Location: [place] [place] Anesthesia Start: 732 Anesthesia Stop: 916 Procedure: LAPAROSCOPIC CHOLECYSTECTOMY WITH GRAMS (Gallbladder) Diagnosis: RUQ abdominal pain Gallbladder calculus without cholecystitis and no obstruction Fatty liver (RUQ abdominal pain [R10.11]) (Gallbladder calculus without cholecystitis and no obstruction [K80.20]) (Fatty liver [K76.0]) Surgeons: Jessee Holloway MD Responsible Provider: Nohemi Ortiz MD Anesthesia Type: general ASA Status: 3 Anesthesia Type: general Airway Type: ETT Last Vitals Vitals Value Taken Time BP 141/62 04/05/22 1347 Temp 36.1 ?C (97 ?F) 04/05/22 1315 HR SpO2 99 04/05/22 1215 Resp 14 04/05/22 1347 SpO2 97 % 04/05/22 1347 Post Anesthesia Patient Status Patient Evaluation: PACU. PACU/ICU Patient Condition: stable. Anticipated Disposition: phase 2 then home. Neurological Status: aware and responsive. Pulmonary Status: breathing comfortably on room air Airway Control: returned to baseline unsupported. Cardiovascular Status: stable. Pain Management: clinically adequate - multimodal analgesia pain management approach Postoperative Hydration: acceptable. Intraoperative Events: no significant anesthesia events Post Operative Nausea/Vomiting Status: no significant post operative nausea or vomiting Recommendation: continue current plan of care. Anesthesia Observations No Documentation SIGNATURE: Nohemi Ortiz MD PATIENT NAME: Nguyen Queen DATE: April 05, 2022 TIME: 2:29 PM CSN: [id number] [facility] ANES PRE-OPon 04-05-2022 ANES PRE-OP HNO ID: [id number] Author: Nohemi Ortiz MD Service: Anesthesiology Author Type: Anesthesiologist Type: Anesthesia Preprocedure Evaluation Filed: 04/05/2022 6:52 AM Note Text: ANESTHESIOLOGY DAY OF SURGERY NOTE : 1945 Procedure Information Date/Time: 04/05/22729 Procedure: LAPAROSCOPIC CHOLECYSTECTOMY WITH GRAMS [place]: [place] Surgeons: Jessee Holloway MD Estimated body mass index is 32.77 kg/m? as calculated from the following: Height as of this encounter: 160 cm (5' 3). Weight as of this encounter: 83.9 kg (185 lb). Most recent hematocrit and potassium results: Hematocrit 39.3 02/14/2022 Potassium 4.0 02/14/2022 Relevant Problems CARDIO (+) Essential hypertension with goal blood pressure less than 130/80 ENDO (+) Controlled type 2 diabetes mellitus without complication, without long-term current use of insulin (HCC) (+) Hypothyroidism, acquired I - PHYSICAL EVALUATION AIRWAY Patient intubated: No. Tracheostomy tube not present Mallampati: II. TM distance: >3 FB. Neck ROM: full ROM without neurological symptoms. Mouth opening: adequate. Short neck: no. Thick neck: no DENTAL Dental findings: chipped and poor dentition. Additional exam findings: yes. CARDIOVASCULAR Rhythm: regular PULMONARY Breath sounds clear to auscultation. II - ANESTHESIA PLAN ASA Score: 3 Anesthetic Plan: general Airway type: ETT The patient is not a current smoker. NPO Status: adequate Anesthetic plan additional comments: She seems very sensitive to narcotics and has had slow RR with every MAC sedation for her colonoscopies. Doesn't want fentanyl or tylenol. Excess sedation with Benadryl . Beta Jose J Monitoring Plan Monitoring plan: Standard ASA. Post Procedure Analgesic Plan Postoperative analgesic plan: parenteral or oral opioids and multimodal analgesia. Patient / Surrogate agrees to blood products: yes DNR status not reviewed with patient and/or family prior to surgery. Significant changes in the patient condition since the History and Physical, not otherwise documented in primary service progress note: no. Potential Anesthesia issues that may suggest increased risk of complications or contraindication to planned procedure: none. Vitals Value Taken Time BP 133/84 04/05/22 0632 Pulse 95 04/05/22 0632 Resp 16 04/05/22 0632 Temp 36.2 ?C (97.2 ?F) 04/05/22 0632 SpO2 99 % 04/05/22 0632 Facility-Administered Medications as of 04/05/2022 Medication Dose Route Frequency - lidocaine (PF) 10 mg/mL (1 %) 1-2 mg injection (XYLOCAINE) 0.1-0.2 mL INTRADERMAL PRN - lactated ringers iv infusion 5-30 mL/hr INTRAVENOUS CONTINUOUS - NaCl 0.9% iv flush bag 20 mL INTRAVENOUS PRN - clindamycin iv piggyback 900 mg in D5W 50 mL (CLEOCIN) 900 mg INTRAVENOUS Pre-Op Once - promethazine 12.5 mg tab(s) (PHENERGAN) 12.5 mg ORAL Pre-Op Once - acetaminophen 1,000 mg tab(s) (TYLENOL) 1,000 mg ORAL Pre-Op Once Outpatient Medications as of 04/05/2022 Medication Sig - metFORMIN (GLUCOPHAGE) 500 mg tablet Take 1000 mg PO with breakfast and 1500 mg PO with supper - glimepiride (AMARYL) 2 mg tablet Take 1 tablet by mouth daily with breakfast. - losartan (COZAAR) 50 mg tablet Take 1 tablet by mouth once daily. - levothyroxine (LEVOXYL) 150 mcg tablet Take 1 tablet by mouth once daily. Take on empty stomach. For Thyroid. - aspirin, enteric coated (ASPIRIN, ENTERIC COATED) 81 mg EC tablet Take 81 mg by mouth once daily. - ferrous sulfate 325 mg (65 mg iron) tablet Take 325 mg by mouth twice daily. - fexofenadine (VAL[place]) 180 mg tablet Take 180 mg by mouth once daily. - lancets (ONETOUCH DELICA LANCETS) 30 gauge TEST BLOOD SUGAR(S) TEST BLOOD SUGARS TWICE DAILY. DX: TYPE 2 DM - CONTROLLED E11.9 INSULIN: NO Delecia (Patient not taking: No sig reported) - lancets (ONE TOUCH DELICA) 33 gauge Test blood sugar(s) twice daily. Dx: Type 2 DM - Controlled E11.9 Insulin: No - Lancets (ONETOUCH ULTRASOFT LANCETS) lancets Use once daily as directed E11.9 (Patient not taking: No sig reported) - blood sugar diagnostic (ONETOUCH ULTRA TEST) test strip Dx: Type 2 diabetes uncontrolled, no insulin. TEST BLOOD SUGARS TWICE DAILY (Patient not taking: No sig reported) - blood sugar diagnostic (ONETOUCH ULTRA TEST) test strip DM2, no insulin, TEST BLOOD SUGARS TWICE DAILY (Patient not taking: No sig reported) - blood sugar diagnostic (ONETOUCH ULTRA TEST STRIP) test strip Type 2 diabetes, no insulin, well controlled, Use as instructed - Blood-Glucose Meter monitoring kit Glucose Meter of Choice - Kit - Dx: Type 2 DM - Controlled E11.9 I have interviewed and examined the patient. I have reviewed the medical record and/or the pre-anesthesia evaluation, pertinent labs, and test results. This contains updated information obtained within 48 hours of Surgery/Procedure. SIGNATURE: Nohemi Ortiz MD PATIENT NAME: Nguyen Queen DATE: (more content not included)... [facility] BRIEF OP NOTon 04-05-2022 BRIEF OP NOT HNO ID: [id number] Author: Jessee Holloway MD Service: General Surgery Author Type: Physician Type: Brief Op Note Filed: 04/05/2022 9:05 AM Note Text: BRIEF OPERATIVE NOTATION FOR SURGICAL PROCEDURE. Nguyen Queen 1945 [id number] female LOG ID: [id number] Surgery/Procedure Date: 04/05/2022 Incision/Procedure Start Time: 7:58 AM Incision Close/Procedure End Time: 8:56 AM Surgeon(s)/Proceduralist( s) and Grain Drier Operator(s): Surgeon(s) and Role: * Jessee Holloway MD - Primary Physician Grain Drier Operator: Renu Lucas PA-C REFERRING PHYSICIAN: Outpatient DEPT: Deb PROVIDER: Maryanne POS: [id number] ANESTHESIA: General ASA CLASS: 3 - Severe DIAGNOSIS: RUQ pain PROCEDURE: LAPAROSCOPIC CHOLECYSTECTOMY WITH INTRAOPERATIVE CHOLEANGIOGRAM - [id number] IVF: 1200 EBL: 100 Specimens: gallbladder ADDITIONAL DIAGNOSES: FINDINGS: normal IOC, venous bleeding form liver bed, controlled with pressure, argon and surgicell COMPLICATIONS: None PMHx - PAST MEDICAL HISTORY Diagnosis Date Advance care planning 08/24/2021 [facility] Diabetes mellitus, type 2 (HCC) Environmental allergies Hyperlipidemia Hypothyroidism, unspecified Liver failure (HCC) 2004 unsure of cause Migraine headache onset age 7 COMORBIDITIES - NIDDM Post Op Occurrences - None Wound Classification - Clean Contaminated Operative note dictated in the dictation system.- [id number] Jessee Holloway MD [facility] HISTORY PHYSICALon HISTORY PHYSICAL HNO ID: [id number] Author: Jessee Holloway MD Service: General Surgery Author Type: Physician Type: HANDP Filed: 04/05/2022 6:48 AM Note Text: HISTORY AND PHYSICAL Nguyen Queen 1945 REFERRING PHYSICIAN: Jeff Simeon DO CHIEF COMPLAINT: Consult (Gallbladder US 03/09/22) HPI: Nguyen is a 76 year old female with [...] more recently had an endoscopy performed at [place] where the anesthesiologist told her that she [...] today at the request of Dr. Jeff Simeon DO for my opinion and advice regarding known cholelithiasis with questionable but likely biliary colic symptoms. SIGNIFICANT MEDICAL PROBLEMS: PAST MEDICAL HISTORY PAST MEDICAL HISTORY Diagnosis Date Advance care planning 08/24/2021 [facility] Diabetes mellitus, type 2 (HCC) Environmental allergies Hyperlipidemia Hypothyroidism, unspecified Liver failure (HCC) 2004 unsure of cause Migraine headache onset age 7 OPERATIONS: PAST SURGICAL HISTORY PAST SURGICAL HISTORY Procedure Laterality Date BREAST BIOPSY NEEDLE LEFT Dec 31 2014 x 2, Dr. Ronquillo COLONOSCOPY FLX DX W/COLLJ SPEC WHEN PFRMD 08/25/2003 adenomatous polyp and diverticulosis. [facility] COLONOSCOPY FLX DX W/COLLJ SPEC WHEN PFRMD 09/28/2006 No polyps found. 5 yr recall. [facility] COLONOSCOPY FLX DX W/COLLJ SPEC WHEN PFRMD 02/26/2018 Colonoscopy ESOPHAGOGASTRODUODENOSCOP Y TRANSORAL DIAGNOSTIC 08/31/2003 Unremarkable, negative biopsies. [facility] ESOPHAGOGASTRODUODENOSCOP Y TRANSORAL DIAGNOSTIC 02/26/2018 EGD TONSILLECTOMY HX CURRENT MEDICATIONS: CURRENT MEDICATIONS Current Outpatient Medications Medication Sig Dispense Refill [...] 325 mg by mouth once daily. fexofenadine ([place]) 180 mg tablet Take 180 mg by [...] Medications Medication Dose Route Frequency Provider Last (more content not included)... [facility] OPERATIVE NOon 04-05-2022 OPERATIVE NO HNO ID: [id number] Author: Jessee Holloway MD Service: General Surgery Author Type: Physician Type: Operative Report Filed: 04/05/2022 2:42 PM Note Text: [facility] - Operative Report NGUYEN QUEEN : 1945 AGE: 76. SEX: F PATIENT TYPE: A HOSP SVC: [facility] LOCATION: [facility] ATTENDING PHYSICIAN: Jessee Holloway M.D. CSN NUMBER: [id number] DATE OF SURGERY/PROCEDURE: 04/05/2022 INCISION/PROCEDURE START TIME: 7:58 a.m. INCISION CLOSE/PROCEDURE END TIME: 8:56 a.m. PREOPERATIVE DIAGNOSIS: Right upper quadrant pain and cholelithiasis. POSTOPERATIVE DIAGNOSIS: Right upper quadrant pain and cholelithiasis, normal cholangiogram. SURGEON: Jessee Holloway M.D. RADIO HOST: Renu Lucas PA-C SURGERY/PROCEDURE: Laparoscopic cholecystectomy with intraoperative cholangiogram. ANESTHESIA: General endotracheal. LOG ID NUMBER: [id number]. ANESTHESIOLOGIST: Dr. Ortiz. ASA: 3. INTRAVENOUS FLUIDS: 1200 mL. ESTIMATED BLOOD LOSS: 100 mL. URINE OUTPUT: No catheter. FINDINGS: Normal intraoperative cholangiogram. Adhesions to gallbladder. Venous bleeder actually in the distal liver bed that was controlled with pressure, argon plasma coagulation, and then Surgicel was placed at the end. DRAINS: None. COMPLICATIONS: None DISPOSITION: Patient taken to PACU in stable condition. DESCRIPTION OF PROCEDURE: Sign-in was performed verifying patient, site, procedure, position, critical nursing information, VTE, and antibiotic prophylaxis. The patient received 900 mg of clindamycin due to penicillin allergy. Had sequential pressure devices placed. Following induction of general anesthetic, patient was prepped and draped in usual fashion. Time-out was performed verifying patient, site, procedure, position. Local anesthetic was injected below the umbilicus. Incision was made, dissection was carried down to the fascia. Two stay sutures were placed to the fascia and incision was made through the fascia and peritoneum under direct visualization. Dedrick trocar was inserted through a stay suture pneumoperitoneum was insufflated. Three 5 mm ports placed in standard position. Visual inspection revealed adhesions to the gallbladder and liver. These were taken down bluntly, sharply and using electrocautery. Once this was completed, the gallbladder retracted upward outward. As dissection was continued, dissection was carried out in Calot triangle. The cystic artery was clearly identified double proximally, singly clipped distally, and divided. The cystic duct was clearly identified and the neck of the gallbladder from the cystic duct with no signs of aberrant ductal structures. A clip was placed in the gallbladder cystic duct junction and a partial ductotomy was made. Percutaneous gastric catheter was inserted with clip. Intraoperative cholangiogram showed filling of the cystic duct, filling of the common bile duct filling of secondary biliary radicals and emptying the duodenum without signs of obstruction. Clip and catheter removed from cystic duct. Cystic duct divided. Gallbladder dissected from gallbladder fossa. As the gallbladder was then dissected from gallbladder fossa, there was an area of venous bleeding. This did not respond to initial hook cauterization. At which point, a sponge was placed in the abdomen and pressure was held. Once pressure was held, this stop the bleeding. This was clearly venous bleed. Argon plasma coagulation was then obtained. The liver bed was cauterized with argon plasma coagulation. This stopped the bleeding. The gallbladder was then removed from the remainder of the gallbladder fossa, placed in Endobag and removed through the port site. Argon plasma coagulation was again cauterized generously at the base of the gallbladder fossa with good hemostasis. The sponge that had been placed in was removed. A piece of Surgicel was then placed over the area and again with good hemostasis after watching the patient for about 10 minutes. The 5 ports were removed under direct visualization. Pneumoperitoneum was released. The previously placed 0 PDS figure- of-eight suture at the umbilicus was closed and secured. Skin was closed with 4-0 Monocryl subcuticular sutures. Steri-Strips dressing applied. Patient brought to recovery room in stable condition. Renu Lucas is my surgical first assistant. She assisted in visualization, retraction, and subcuticular closure. There were no surgeons or qualified residents available. Jessee Holloway M.D. RG:[id number] /[id number] [facility] SURGICAL PATHOLOGYon 023 CASE REPORT [facility] Comment on above: Order Comment: Speci men Type: TISSUE SPECIMEN [facility] Address: [address] [address] Result Comment: Surg ica Pathology Report Case: [id number] Authorizing Provider: Jessee Holloway MD Collected: 04/05/2022 08:45 AM Ordering Location: [facility] Surgery Received: 04/05/2022 11:24 AM Pathologist: Osmany Jennings MD Specimen: GALLBLADDER, gallbladder Performed By: #### S #### [facility] CLIA [id number] [address] [place] [address] CLINICAL HISTORY Normal [facility] Comment on above: Order Comment: Speci men Type: TISSUE SPECIMEN [facility]ing Facility: [facility] Address: [address] [place] [address] Result Comment: Pre- op diagnosis: RUQ abdominal pain [R10.11] Gallbladder calculus without cholecystitis and no obstruction [K80.20] Fatty liver [K76.0] Performed By: #### S #### [facility] CLIA [id number] [address] [place] [address] FINAL DIAGNOSIS Normal [facility] Comment on above: Order Comment: Speci men Type: TISSUE SPECIMEN [facility]ing Facility[facility] Address: [address] [place] [address] Result Comment: A. G allbladder, cholecystectomy: - Active chronic follicular cholecystitis with cholelithiasis. CF/LDF 04/07/2022 Performed By: #### S #### [facility] CLIA [id number] [address] [place] [address] FINAL PERFORMING LAB Normal [facility] Comment on above: Order Comment: Speci men Type: TISSUE SPECIMEN [facility]ing [facility] Address: [address] [place] [address] Result Comment: Diag nostic interpretation performed at [facility], [address] [place] [address] CLIA# [id number] Hand Clipper: Noble Tolliver M.D. Performed By: #### S #### [facility] CLIA [id number] [address] [place] [address] OF [facility] GROSS DESCRIPTION A. GALLBLADDER Normal [facility] Comment on above: Order Comment: Speci men Type: TISSUE SPECIMEN [facility]ing [facility] Address: [address] [id number] Result Comment: Rece ived in formalin labeled gallbladder is a previously-disrupted gallbladder measuring 8.0 x 3.5 x 2.5 cm. The cystic duct and artery margins are inked black. The serosal surface is green-smyth, smooth and glistening with a 1 cm linear disruption. The opposing surface is green-brown, slightly roughened and cauterized with a 1.2 cm linear disruption. The average wall thickness is 0.3 cm. The mucosal surface is green-garcia, smooth and velvety with rare, scattered pinpoint yellow streaks. The luminal contents is green and viscous. There is a single 1.3 cm round, black, slightly roughened calculus within the container. News Agent sections to include the cystic duct margin are submitted in cassette A1. Gross examination performed at [facility], [address] [place] [address] 04/06/22 12:02 PM Performed By: #### S #### [facility] CLIA [id number] [address] [place] [address] OF [facility] XR Ankle - right AP and Late ral and obliqueon 08-26-2020 IMPRESSION: Mild bimalleolar soft tissue swelling. No acute bony process. Calcaneal spur. Orthopaedic Technologist: [facility] Transcribe Date/Time: Aug 26 2020 12:20P Dictated by : JANETH OLSEN MD This examination was interpreted and the report reviewed and electronically signed by: JANETH OLSEN MD on Aug 26 2020 12:22PM [facility] DIVISION OF RADIOLOGY * * *Final Report* * * DATE OF EXAM: Aug 25 2020 4:17PM WOX [id number] - XR ANKLE 3V AP/LAT/OBL RT / PROCEDURE REASON: multiple diagnoses * * * * Physician Interpretation * * * * EXAMINATION: XR ANKLE 3V AP/LAT/OBL RT HISTORY: Chronic pain of right ankle. No injury. TECHNIQUE: XR ANKLE 3V AP/LAT/OBL RT Laterality: RIGHT Number of different views (projections): 3 M: XB_1 COMPARISON: Comparison is made to prior ankle study dated July 2015 RESULT: Standing frontal radiographs of the bilateral ankles with oblique and lateral weightbearing views of the right ankle show no acute osseous or articular process. There is mild bimalleolar soft tissue filling bilaterally. There is no underlying acute bony process. Ankle mortise and syndesmosis are preserved bilaterally and the right subtalar joint is intact. Incidental note is made of a moderate plantar fascial calcaneal spur on the right. DIVISION OF RADIOLOGY Provider, [facility] 08/26/2020 * * *Final Report* * * DATE OF EXAM: Aug 25 2020 4:17PM WOX 5297 - XR ANKLE 3V AP/LAT/OBL RT / PROCEDURE REASON: multiple diagnoses * * * * Physician Interpretation * * * * EXAMINATION: XR ANKLE 3V AP/LAT/OBL RT HISTORY: Chronic pain of right ankle. No injury. TECHNIQUE: XR ANKLE 3V AP/LAT/OBL RT Laterality: RIGHT Number of different views (projections): 3 M: XB_1 COMPARISON: Comparison is made to prior ankle study dated July 2015 RESULT: Standing frontal radiographs of the bilateral ankles with oblique and lateral weightbearing views of the right ankle show no acute osseous or articular process. There is mild bimalleolar soft tissue filling bilaterally. There is no underlying acute bony process. Ankle mortise and syndesmosis are preserved bilaterally and the right subtalar joint is intact. Incidental note is made of a moderate plantar fascial calcaneal spur on the right. IMPRESSION IMPRESSION: Mild bimalleolar soft tissue swelling. No acute bony process. Calcaneal spur. Orthopaedic Technologist: [facility] Transcribe Date/Time: Aug 26 2020 12:20P Dictated by : JANETH OLSEN MD This examination was interpreted and the report reviewed and electronically signed by: JANETH OLSEN MD on Aug 26 2020 12:22PM EST [facility] XR Ankle - right AP and Late ral and obliqueOrdered By: [facility] Provider on 08-26-2020 [facility] XR HIP BILAT 5V PEL/AP/LAT E ACH HIPon 08-26-2020 IMPRESSION: 1. No acute bony process. 2. Calcification at the tendinous insertion of the greater trochanter right hip. Otherwise unremarkable. Orthopaedic Technologist: JJ Transcribe Date/Time: Aug 26 2020 12:23P Dictated by : JANETH OLSEN MD This examination was interpreted and the report reviewed and electronically signed by: JANETH OLSEN MD on Aug 26 2020 12:25PM [facility] DIVISION OF RADIOLOGY * * *Final Report* * * DATE OF EXAM: Aug 25 2020 4:17PM WOX 5353 - XR HIP CLIFF 5V PEL+ AP/LAT EA HIP / PROCEDURE REASON: multiple diagnoses * * * * Physician Interpretation * * * * EXAMINATION: XR HIP CLIFF 5V PEL+ AP/LAT EA HIP HISTORY: Bilateral hip pain. No injury. TECHNIQUE: XR HIP CLIFF 5V PEL+ AP/LAT EA HIP Laterality: NOT APPLICABLE Number of different views (projections): 5 M: XB_1 COMPARISON: There are no prior relevant examinations available for comparison within the [facility] Imaging Archives. RESULT: Supine radiograph of the pelvis as well as AP and frogleg views of the bilateral hips demonstrate the bony pelvic ring intact with enthesopathic degenerative change. The hips are bilaterally symmetric with preserved joint spaces. Subtle calcification at the tendinous insertion of the right greater trochanter may indicate trochanteric bursitis. There is no acute bony process. The soft tissues are unremarkable. DIVISION OF RADIOLOGY Provider, [facility] - 08/26/2020 * * *Final Report* * * DATE OF EXAM: Aug 25 2020 4:17PM WOX 5353 - XR HIP CLIFF 5V PEL+ AP/LAT EA HIP / PROCEDURE REASON: multiple diagnoses * * * * Physician Interpretation * * * * EXAMINATION: XR HIP CLIFF 5V PEL+ AP/LAT EA HIP HISTORY: Bilateral hip pain. No injury. TECHNIQUE: XR HIP CLIFF 5V PEL+ AP/LAT EA HIP Laterality: NOT APPLICABLE Number of different views (projections): 5 M: XB_1 COMPARISON: There are no prior relevant examinations available for comparison within the [facility]. RESULT: Supine radiograph of the pelvis as well as AP and frogleg views of the bilateral hips demonstrate the bony pelvic ring intact with enthesopathic degenerative change. The hips are bilaterally symmetric with preserved joint spaces. Subtle calcification at the tendinous insertion of the right greater trochanter may indicate trochanteric bursitis. There is no acute bony process. The soft tissues are unremarkable. IMPRESSION IMPRESSION: 1. No acute bony process. 2. Calcification at the tendinous insertion of the greater trochanter right hip. Otherwise unremarkable. Orthopaedic Technologist: JJ Transcribe Date/Time: Aug 26 2020 12:23P Dictated by : JANETH OLSEN MD This examination was interpreted and the report reviewed and electronically signed by: JANETH OLSEN MD on Aug 26 2020 12:25PM EST [facility] No Panel Informationon 08-25 Radiology Study observation (narrative) [facility] XR Lumbar spine 3 Viewson IMPRESSION: Lumbar s pine degenerative changes as described above. Orthopaedic Technologist: JJ Transcribe Date/Time: Aug 25 2020 5:01P Dictated by : MYRNA MOSLEY MD This examination was interpreted and the report reviewed and electronically signed by: MYRNA MOSLEY MD on Aug 25 2020 5:03PM [facility] DIVISION OF RADIOLOGY * * *Final Report* * * DATE OF EXAM: Aug 25 2020 4:17PM WOX [id number] - XR LUMBAR 3V AP/LAT/L5-S1 / PROCEDURE REASON: multiple diagnoses * * * * Physician Interpretation * * * * EXAM TITLE: XR LUMBAR 3V AP/LAT/L5-S1 EXAM DATE/TIME: 08/25/2020 4:17 PM COMPARISON: None. CLINICAL INDICATION/HISTORY: Low back pain. TECHNIQUE: AP, lateral and cone down lateral views of the lumbar spine are presented. FINDINGS: There are five wma-jid-lfivnor lumbar vertebrae. No acute fracture seen. There is grade 1 L4 on L5 anterolisthesis. There appears be L4-5 mild disc space narrowing. There is mild to moderate osteophyte formation, with facet arthrosis in the lower lumbar spine. Kissing spine seen on lateral view. DIVISION OF RADIOLOGY Provider, Zoe Jha - 08/25/2020 * * *Final Report* * * DATE OF EXAM: Aug 25 2020 4:17PM WOX 5228 - XR LUMBAR 3V AP/LAT/L5-S1 / PROCEDURE REASON: multiple diagnoses * * * * Physician Interpretation * * * * EXAM TITLE: XR LUMBAR 3V AP/LAT/L5-S1 EXAM DATE/TIME: 08/25/2020 4:17 PM COMPARISON: None. CLINICAL INDICATION/HISTORY: Low back pain. TECHNIQUE: AP, lateral and cone down lateral views of the lumbar spine are presented. FINDINGS: There are five iyx-jeu-jkxdofw lumbar vertebrae. No acute fracture seen. There is grade 1 L4 on L5 anterolisthesis. There appears be L4-5 mild disc space narrowing. There is mild to moderate osteophyte formation, with facet arthrosis in the lower lumbar spine. Kissing spine seen on lateral view. IMPRESSION IMPRESSION: Lumbar spine degenerative changes as described above. Orthopaedic Technologist: JJ Transcribe Date/Time: Aug 25 2020 5:01P Dictated by : MYRNA MOSLEY MD This examination was interpreted and the report reviewed and electronically signed by: MYRNA MOSLEY MD on Aug 25 2020 5:03PM [facility] Vital Signs Date Time Vital Sign Value Performing Clinician Facility 10-23-2024 14:05-0400 Body height 160.[address] Jeff Simeon DO Work Phone: [facility] 10-23-2024 14:05-0400 Body mass index (BMI) [Ratio] 30.7 kg/m2 Dr. Jeff Simeon DO Work Phone: [facility] 10-23-2024 14:05-0400 Body temperature 98 [degF] Dr. Jeff Simeon DO Work Phone: [facility] 10-23-2024 14:05-0400 Body weight 78.[address] Jeff Simeon DO Work Phone: [facility] 10-23-2024 14:05-0400 Diastolic blood pressure 73 mm[Hg] Dr. Jeff Simeon DO Work Phone: [facility] 10-23-2024 14:05-0400 Heart rate 75 /min Dr. Jeff Simeon DO Work Phone: [facility] 10-23-2024 14:05-0400 Respiratory rate 18 /min Dr. Jeff Simeon DO Work Phone: [facility] 10-23-2024 14:05-0400 SaO2% (BldA) [Mass fraction] 96 % Dr. Jeff Simeon DO Work Phone: [facility] 10-23-2024 14:05-0400 Systolic blood pressure 111 mm[Hg] Dr. Jeff Simeon DO Work Phone: [facility] 2024 09:42-0400 Body mass index (BMI) [Ratio] 29.58 kg/m2 Jeff Simeon DO Work Phone: [facility] 2024 09:42-0400 Body temperature 97 [degF] Jeff Simeon DO Work Phone: [facility] 2024 09:42-0400 Body weight 75.75 kg Jeff Simeon DO Work Phone: [facility] 2024 09:42-0400 Diastolic blood pressure 60 mm[Hg] Jeff Simeon DO Work Phone: [facility] 2024 09:42-0400 Heart rate 80 /min Jeff Simeon DO Work Phone: [facility] 2024 09:42-0400 Respiratory rate 16 /min Jeff Simeon DO Work Phone: [facility] 2024 09:42-0400 Systolic blood pressure 124 mm[Hg] Jeff Simeon DO Work Phone: [facility] 04-29-2024 13:13-0400 Body height 160.[address] Jeff Simeon DO Work Phone: [facility] 04-29-2024 13:13-0400 Body weight 73.[address] Jeff Simeon DO Work Phone: [facility] 04-17-2024 14:17-0500 Body mass index (BMI) [Ratio] 28.8 kg/m2 Dr. Jeff Simeon DO Work Phone: 3(517)114-079910 [place] [address] 04-17-2024 14:17-0500 Body temperature 98.2 [degF] Dr. Jeff Simeon DO Work Phone: 3(202)897-738290 [place] [address] 04-17-2024 14:17-0500 Body weight 73.[address] Jeff Simeon DO Work Phone: 5(922)471-001890 [place] [address] 04-17-2024 14:17-0500 Diastolic blood pressure 59 mm[Hg] Dr. Jeff Simeon DO Work Phone: 9(179)470-965190 [place] [address] 04-17-2024 14:17-0500 Heart rate 71 /min Dr. Jeff Simeon DO Work Phone: 3(829)657-297990 [place] [address] 04-17-2024 14:17-0500 Respiratory rate 18 /min Dr. Jeff Simeon DO Work Phone: 8(884)950-577990 [place] [address] 04-17-2024 14:17-0500 SaO2% (BldA) [Mass fraction] 96 % Dr. Jeff Simeon DO Work Phone: 5(826)683-555190 [place] [address] 04-17-2024 14:17-0500 Systolic blood pressure 120 mm[Hg] Dr. Jeff Simeon DO Work Phone: 4(417)545-562890 [place] [address] 03-27-2024 11:43-0500 Body temperature 97.1 [degF] Dr. Jeff Simeon DO Work Phone: 2(337)189-916490 [place] [address] 03-27-2024 11:43-0500 Diastolic blood pressure 44 mm[Hg] Dr. Jeff Simeon DO Work Phone: 9(347)296-037590 [place] [address] 03-27-2024 11:43-0500 Heart rate 77 /min Dr. Jeff Simeon DO Work Phone: 9(825)138-815290 [place] [address] 03-27-2024 11:43-0500 Respiratory rate 16 /min Dr. Jeff Simeon DO Work Phone: 0(206)860-594190 [place] [address] 03-27-2024 11:43-0500 SaO2% (BldA) [Mass fraction] 97 % Dr. Jeff Simeon DO Work Phone: [facility] 03-27-2024 11:43-0500 Systolic blood pressure 115 mm[Hg] Dr. Jeff Simeon DO Work Phone: [facility] 03-27-2024 08:54-0500 Body mass index (BMI) [Ratio] 28.3 kg/m2 Dr. Jeff Simeon DO Work Phone: [facility] 02-14-2024 10:51-0500 Body mass index (BMI) [Ratio] 28.59 kg/m2 Karson Crissy CATCHER HELPER.ELECTRICAL ENGINEERING DIRECTOR Work Phone: [facility] 02-14-2024 10:51-0500 Body weight 73.2 kg Karson Crissy CATCHER HELPER.ELECTRICAL ENGINEERING DIRECTOR Work Phone: [facility] 02-14-2024 10:51-0500 Diastolic blood pressure 72 mm[Hg] Karson Crissy CATCHER HELPER.ELECTRICAL ENGINEERING DIRECTOR Work Phone: [facility] 02-14-2024 10:51-0500 Heart rate 89 /min Karson Crissy CATCHER HELPER.ELECTRICAL ENGINEERING DIRECTOR Work Phone: [facility] 02-14-2024 10:51-0500 Respiratory rate 16 /min Karson Crissy CATCHER HELPER.ELECTRICAL ENGINEERING DIRECTOR Work Phone: [facility] 02-14-2024 10:51-0500 SaO2% (BldA) [Mass fraction] 99 % Karson Crissy CATCHER HELPER.ELECTRICAL ENGINEERING DIRECTOR Work Phone: [facility] 02-14-2024 10:51-0500 Systolic blood pressure 118 mm[Hg] Karson Crissy CATCHER HELPER.ELECTRICAL ENGINEERING DIRECTOR Work Phone: [facility] 01-24-2024 14:37-0500 Body mass index (BMI) [Ratio] 28.3 kg/m2 Dr. Jeff Simeon DO Work Phone: [facility] 01-24-2024 14:37-0500 Body temperature 97.3 [degF] Dr. Jeff Simeon DO Work Phone: 3(311)542-384890 [place] [address] 01-24-2024 14:37-0500 Body weight 72.[address] Jeff Simeon DO Work Phone: 5(028)421-700990 [place] [address] 01-24-2024 14:37-0500 Diastolic blood pressure 65 mm[Hg] Dr. Jeff Simeon DO Work Phone: 1(504)626-101490 [place] [address] 01-24-2024 14:37-0500 Heart rate 77 /min Dr. Jeff Simeon DO Work Phone: 6(552)836-168590 [place] [address] 01-24-2024 14:37-0500 Respiratory rate 18 /min Dr. Jeff Simeon DO Work Phone: 4(023)271-357690 [place] [address] 01-24-2024 14:37-0500 SaO2% (BldA) [Mass fraction] 98 % Dr. Jeff Simeon DO Work Phone: 5(367)162-661090 [place] [address] 01-24-2024 14:37-0500 Systolic blood pressure 101 mm[Hg] Dr. Jeff Simeon DO Work Phone: 3(630)434-899690 [place] [address] 01-22-2024 12:54-0500 Body mass index (BMI) [Ratio] 28.3 kg/m2 Dr. Jeff Simeon DO Work Phone: 4(680)867-109090 [place] [address] 01-22-2024 12:54-0500 Body weight 72.[address] Jeff Simeon DO Work Phone: 4(877)502-654190 [place] [address] 01-22-2024 12:54-0500 Diastolic blood pressure 60 mm[Hg] Dr. Jeff Simeon DO Work Phone: 8(218)442-087190 [place] [address] 01-22-2024 12:54-0500 Heart rate 88 /min Dr. Jeff Simeon DO Work Phone: 5(721)969-674090 [place] [address] 01-22-2024 12:54-0500 Respiratory rate 16 /min Dr. Jeff Simeon DO Work Phone: 2(679)595-883990 [place] [address] 01-22-2024 12:54-0500 SaO2% (BldA) [Mass fraction] 99 % Dr. Jeff Simeon DO Work Phone: [facility] 01-22-2024 12:54-0500 Systolic blood pressure 100 mm[Hg] Dr. Jeff Simeon DO Work Phone: [facility] 11-20-2023 09:05-0400 Diastolic blood pressure 58 mm[Hg] Jeff Kentrison DO Work Phone: [facility] 11-20-2023 09:05-0400 Heart rate 94 /min Jeff Simeon DO Work Phone: [facility] 11-20-2023 09:05-0400 Respiratory rate 16 /min Jeff Simeon DO Work Phone: [facility] 11-20-2023 09:05-0400 SaO2% (BldA) [Mass fraction] 99 % Jeff Simeon DO Work Phone: [facility] 11-20-2023 09:05-0400 Systolic blood pressure 118 mm[Hg] Jeff Kentrison DO Work Phone: [facility] 10-24-2023 13:56-0400 Body mass index (BMI) [Ratio] 31.64 kg/m2 Karson Crissy CATCHER HELPER.ELECTRICAL ENGINEERING DIRECTOR Work Phone: [facility] 10-24-2023 13:56-0400 Body weight 81.01 kg Karson Crissy CATCHER HELPER.ELECTRICAL ENGINEERING DIRECTOR Work Phone: [facility] 10-24-2023 13:56-0400 Diastolic blood pressure 58 mm[Hg] Karson Crissy CATCHER HELPER.ELECTRICAL ENGINEERING DIRECTOR Work Phone: [facility] 10-24-2023 13:56-0400 Heart rate 84 /min Karson Crissy CATCHER HELPER.ELECTRICAL ENGINEERING DIRECTOR Work Phone: [facility] 10-24-2023 13:56-0400 Respiratory rate 16 /min Karson Crissy CATCHER HELPER.ELECTRICAL ENGINEERING DIRECTOR Work Phone: [facility] 10-24-2023 13:56-0400 SaO2% (BldA) [Mass fraction] 100 % Karson Woodward CATCHER HELPER.ELECTRICAL ENGINEERING DIRECTOR Work Phone: [facility] 10-24-2023 13:56-0400 Systolic blood pressure 104 mm[Hg] Karson Woodward CATCHER HELPER.ELECTRICAL ENGINEERING DIRECTOR Work Phone: [facility] 07-11-2023 11:29-0400 Body mass index (BMI) [Ratio] 30.58 kg/m2 Sharyn Athy PA-C Work Phone: [facility] 07-11-2023 11:290400 Body temperature 97.59 [degF] Sharyn Athy PA-C Work Phone: [facility] 07-11-2023 11:29-0400 Body weight 78.3 kg Sharyn Athy PA-C Work Phone: [facility] 07-11-2023 11:29-0400 Diastolic blood pressure 82 mm[Hg] Sharyn Athy PA-C Work Phone: [facility] 07-11-2023 11:29-0400 Heart rate 72 /min Sharyn Athy PA-C Work Phone: [facility] 07-11-2023 11:29-0400 Respiratory rate 18 /min Sharyn Athy PA-C Work Phone: [facility] 07-11-2023 11:29-0400 SaO2% (BldA) [Mass fraction] 99 % Sharyn Athy PA-C Work Phone: [facility] 07-11-2023 11:29-0400 Systolic blood pressure 142 mm[Hg] Sharyn Athy PA-C Work Phone: [facility] 06-25-2023 15:03-0400 Body mass index (BMI) [Ratio] 29.76 kg/m2 Jeff Simeon DO Work Phone: [facility] 06-25-2023 15:03-0400 Body temperature 97 [degF] Jeff Simeon DO Work Phone: [facility] 06-25-2023 15:03-0400 Body weight 76.2 kg Jeff Simeon DO Work Phone: [facility] 06-25-2023 15:03-0400 Diastolic blood pressure 60 mm[Hg] Jeff Kentrison DO Work Phone: [facility] 06-25-2023 15:03-0400 Heart rate 80 /min Jeff Simeon DO Work Phone: [facility] 06-25-2023 15:03-0400 Respiratory rate 12 /min Jeff Simeon DO Work Phone: [facility] 06-25-2023 15:03-0400 Systolic blood pressure 110 mm[Hg] Jeff Simeon DO Work Phone: [facility] 04-04-2023 10:26-0500 Body height 160.[address] Jeff Simeon Work Phone: 1(675)644-161310 [place] [address] 04-04-2023 10:25-0500 Body mass index (BMI) [Ratio] 29.5 kg/m2 Dr. Jeff Simeon Work Phone: 7(713)950-900910 [place] [address] 04-04-2023 10:25-0500 Body temperature 98.5 [degF] Dr. Jeff Simeon Work Phone: 7(497)248-465610 [place] [address] 04-04-2023 10:25-0500 Body weight 75.[address] Jeff Simeon Work Phone: 0(035)074-087910 [place] [address] 04-04-2023 10:25-0500 Diastolic blood pressure 70 mm[Hg] Dr. Jeff Simeon Work Phone: 3(584)890-780010 [place] [address] 04-04-2023 10:25-0500 Heart rate 81 /min Dr. Jeff Simeon Work Phone: 7(252)936-877910 [place] [address] 04-04-2023 10:25-0500 Respiratory rate 18 /min Dr. Jeff Simeon Work Phone: 0(362)483-719910 [place] [address] 04-04-2023 10:25-0500 SaO2% (BldA) [Mass fraction] 99 % Dr. Jeff Simeon Work Phone: [facility] 04-04-2023 10:25-0500 Systolic blood pressure 107 mm[Hg] Dr. Jeff Simeon Work Phone: [facility] 03-21-2023 10:44-0500 Body mass index (BMI) [Ratio] 30.2 kg/m2 Dr. Jeff Simeon Work Phone: [facility] 03-21-2023 10:44-0500 Body weight 77.[address] Jeff Simeon Work Phone: 4(359)343-988010 [place] [address] 03-21-2023 10:39-0500 Body temperature 98.2 [degF] Dr. Jeff Simeon Work Phone: 2(720)623-483710 [place] [address] 03-21-2023 10:39-0500 Diastolic blood pressure 58 mm[Hg] Dr. Jeff Simeon Work Phone: 3(017)047-340410 [place] [address] 03-21-2023 10:39-0500 Heart rate 74 /min Dr. Jeff Simeon Work Phone: 5(159)921-968110 [place] [address] 03-21-2023 10:39-0500 Respiratory rate 18 /min Dr. Jeff Simeon Work Phone: [facility] 03-21-2023 10:39-0500 SaO2% (BldA) [Mass fraction] 99 % Dr. Jeff Simeon Work Phone: [facility] 03-21-2023 10:39-0500 Systolic blood pressure 115 mm[Hg] Dr. Jeff Simeon Work Phone: [facility] 03-19-2023 10:38-0500 Body weight 76.3 kg Karson Woodward APRN.ELECTRICAL ENGINEERING DIRECTOR Work Phone: [facility] 03-19-2023 10:38-0500 Diastolic blood pressure 64 mm[Hg] Karson Woodward APRN.ELECTRICAL ENGINEERING DIRECTOR Work Phone: [facility] 03-19-2023 10:38-0500 Heart rate 85 /min Karson Crissy CATCHER HELPER.ELECTRICAL ENGINEERING DIRECTOR Work Phone: [facility] 03-19-2023 10:38-0500 Respiratory rate 16 /min Karson Woodward CATCHER HELPER.ELECTRICAL ENGINEERING DIRECTOR Work Phone: [facility] 03-19-2023 10:38-0500 SaO2% (BldA) [Mass fraction] 95 % Karson Woodward CATCHER HELPER.ELECTRICAL ENGINEERING DIRECTOR Work Phone: [facility] 03-19-2023 10:38-0500 Systolic blood pressure 110 mm[Hg] Karson Woodward CATCHER HELPER.ELECTRICAL ENGINEERING DIRECTOR Work Phone: [facility] 03-11-2023 14:01-0500 Body temperature 97.2 [degF] Dr. Jeff Simeon Work Phone: 7(876)258-867810 [place] [address] 03-11-2023 14:01-0500 Diastolic blood pressure 68 mm[Hg] Dr. Jeff Simeon Work Phone: 2(575)854-712410 [place] [address] 03-11-2023 14:01-0500 Heart rate 84 /min Dr. Jeff Simeon Work Phone: 7(686)729-196610 [place] [address] 03-11-2023 14:01-0500 Respiratory rate 18 /min Dr. Jeff Simeon Work Phone: [facility] 03-11-2023 14:01-0500 SaO2% (BldA) [Mass fraction] 94 % Dr. Jeff Simeon Work Phone: [facility] 03-11-2023 14:01-0500 Systolic blood pressure 140 mm[Hg] Dr. Jeff Simeon Work Phone: [facility] 03-09-2023 14:52-0500 Body height 160.[address] Jeff Simeon Work Phone: 6(941)690-315010 [place] [address] 03-09-2023 14:52-0500 Body weight 79.[address] Jeff Simeon Work Phone: 4(113)722-089510 [place] [address] 03-06-2023 19:30-0500 Inhaled oxygen flow rate 8 L/min Dr. Jeff Simeon Work Phone: 6(714)501-671590 [place] [address] 03-05-2023 23:31-0500 Body mass index (BMI) [Ratio] 30.9 kg/m2 Dr. Jeff Simeon Work Phone: 3(064)983-661590 [place] [address] 03-05-2023 23:13-0500 Body temperature 97.8 [degF] Dr. Jeff Simeon Work Phone: 4(225)150-307890 [place] [address] 03-05-2023 23:13-0500 Diastolic blood pressure 65 mm[Hg] Dr. Jeff Simeon Work Phone: 7(684)056-909590 [place] [address] 03-05-2023 23:13-0500 Heart rate 78 /min Dr. Jeff Simeon Work Phone: 8(405)073-900390 [place] [address] 03-05-2023 23:13-0500 Respiratory rate 12 /min Dr. Jeff Simeon Work Phone: 6(619)943-424690 [place] [address] 03-05-2023 23:13-0500 SaO2% (BldA) [Mass fraction] 98 % Dr. Jeff Simeon Work Phone: 4(606)850-645690 [place] [address] 03-05-2023 23:13-0500 Systolic blood pressure 156 mm[Hg] Dr. Jeff Simeon Work Phone: 8(284)458-609590 [place] [address] 03-05-2023 18:59-0500 Body height 160.[address] Jeff Simeon Work Phone: 9(135)610-482990 [place] [address] 03-05-2023 18:59-0500 Body mass index (BMI) [Ratio] 30.6 kg/m2 Dr. Jeff Simeon Work Phone: 5(772)143-710390 [place] [address] 03-05-2023 18:59-0500 Body weight 78.[address] Jeff Simeon Work Phone: 2(565)947-249990 [place] [address] 12-08-2022 10:00-0400 Body temperature 96.4 [degF] Jeff Simeon DO Work Phone: 5(310)014-267278 [place] [address] 12-08-2022 10:00-0400 Body weight 82.56 kg Jeff Simeon DO Work Phone: [facility] 12-08-2022 10:00-0400 Diastolic blood pressure 60 mm[Hg] Jeff Simeon DO Work Phone: [facility] 12-08-2022 10:00-0400 Heart rate 88 /min Jeff Simeon DO Work Phone: [facility] 12-08-2022 10:00-0400 Respiratory rate 16 /min Jeff Simeon DO Work Phone: [facility] 12-08-2022 10:00-0400 Systolic blood pressure 116 mm[Hg] Jeff Simeon DO Work Phone: [facility] 05-24-2022 16:10-0400 Body temperature 97.39 [degF] Jeff Simeon DO Work Phone: [facility] 05-24-2022 16:10-0400 Body weight 80.29 kg Jeff Simeon DO Work Phone: [facility] 05-24-2022 16:10-0400 Diastolic blood pressure 78 mm[Hg] Jeff Simeon DO Work Phone: [facility] 05-24-2022 16:10-0400 Heart rate 80 /min Jeff Simeon DO Work Phone: [facility] 05-24-2022 16:10-0400 Respiratory rate 16 /min Jeff Simeon DO Work Phone: [facility] 05-24-2022 16:10-0400 Systolic blood pressure 150 mm[Hg] Jeff Simeon DO Work Phone: [facility] 04-13-2022 09:01-0500 Body temperature 97.59 [degF] Nguyen Wanblee PA-C Work Phone: [facility] 04-13-2022 09:01-0500 Body weight 82.64 kg Nguyen Wanblee PA-C Work Phone: [facility] 04-13-2022 09:01-0500 Diastolic blood pressure 66 mm[Hg] Nguyen Wanblee PA-C Work Phone: [facility] 04-13-2022 09:01-0500 Heart rate 118 /min Nguyen Beth PA-C Work Phone: [facility] 04-13-2022 09:01-0500 SaO2% (BldA) [Mass fraction] 96 % Nguyen Beth PA-C Work Phone: [facility] 04-13-2022 09:01-0500 Systolic blood pressure 138 mm[Hg] Nguyen Wanblee PA-C Work Phone: [facility] 04-10-2022 13:38-0500 Body height 160 cm Nguyen Beth PA-C Work Phone: [facility] 04-10-2022 13:38-0500 Body temperature 97.2 [degF] Nguyen Beth PA-C Work Phone: [facility] 04-10-2022 13:38-0500 Body weight 83.92 kg Nguyen Wanblee PA-C Work Phone: [facility] 04-10-2022 13:38-0500 Diastolic blood pressure 58 mm[Hg] Nguyen Wanblee PA-C Work Phone: [facility] 04-10-2022 13:38-0500 Heart rate 117 /min Nguyen Wanblee PA-C Work Phone: [facility] 04-10-2022 13:38-0500 SaO2% (BldA) [Mass fraction] 93 % Nguyen Wanblee PA-C Work Phone: [facility] 04-10-2022 13:38-0500 Systolic blood pressure 118 mm[Hg] Nguyen Wanblee PA-C Work Phone: [facility] 04-03-2022 11:11-0500 Body height 160 cm Pac 1 Work Phone: [facility] 04-03-2022 11:11-0500 Body temperature 97.59 [degF] Pac 1 Work Phone: [facility] 04-03-2022 11:11-0500 Body weight 83.92 kg Pacc 1 Work Phone: [facility] 04-03-2022 11:11-0500 Diastolic blood pressure 70 mm[Hg] Pacc 1 Work Phone: [facility] 04-03-2022 11:11-0500 Heart rate 91 /min Pacc 1 Work Phone: [facility] 04-03-2022 11:11-0500 Respiratory rate 14 /min Pacc 1 Work Phone: [facility] 04-03-2022 11:11-0500 SaO2% (BldA) [Mass fraction] 97 % Pacc 1 Work Phone: [facility] 04-03-2022 11:11-0500 Systolic blood pressure 118 mm[Hg] Pacc 1 Work Phone: [facility] 03-24-2022 10:27-0500 Body height 160 cm Jessee Holloway MD Work Phone: [facility] 03-24-2022 10:27-0500 Body temperature 96.8 [degF] Jessee Holloway MD Work Phone: [facility] 03-24-2022 10:27-0500 Body weight 84.37 kg Jessee Holloway MD Work Phone: [facility] 03-24-2022 10:27-0500 Diastolic blood pressure 64 mm[Hg] Jessee Holloway MD Work Phone: [facility] 03-24-2022 10:27-0500 Heart rate 113 /min Jessee Holloway MD Work Phone: [facility] 03-24-2022 10:27-0500 SaO2% (BldA) [Mass fraction] 98 % Jessee Holloway MD Work Phone: [facility] 03-24-2022 10:27-0500 Systolic blood pressure 124 mm[Hg] Jessee Holloway MD Work Phone: [facility] 02-20-2022 09:30-0500 Body temperature 97.11 [degF] Jeff Simeon DO Work Phone: [facility] 02-20-2022 09:30-0500 Body weight 86.18 kg Jeff Simeon DO Work Phone: [facility] 02-20-2022 09:30-0500 Diastolic blood pressure 60 mm[Hg] Jeff Simeon DO Work Phone: [facility] 02-20-2022 09:30-0500 Heart rate 80 /min Jeff Simeon DO Work Phone: [facility] 02-20-2022 09:30-0500 Respiratory rate 16 /min Jeff Simeon DO Work Phone: [facility] 02-20-2022 09:30-0500 Systolic blood pressure 124 mm[Hg] Jeff Simeon DO Work Phone: [facility] 11-15-2021 09:11-0400 Body temperature 96.3 [degF] Jeff Simeon DO Work Phone: [facility] 11-15-2021 09:11-0400 Body weight 87.54 kg Jeff Simeon DO Work Phone: [facility] 11-15-2021 09:11-0400 Diastolic blood pressure 60 mm[Hg] Jeff Simeon DO Work Phone: [facility] 11-15-2021 09:11-0400 Heart rate 88 /min Jeff Simeon DO Work Phone: [facility] 11-15-2021 09:11-0400 Respiratory rate 16 /min Jeff Simeon DO Work Phone: [facility] 11-15-2021 09:11-0400 Systolic blood pressure 124 mm[Hg] Jeff Simeon DO Work Phone: [facility] 05-30-2021 09:15-0400 Body temperature 97 [degF] Jeff Simeon DO Work Phone: [facility] 05-30-2021 09:15-0400 Body weight 92.08 kg Jeff Simeon DO Work Phone: [facility] 05-30-2021 09:15-0400 Diastolic blood pressure 70 mm[Hg] Jeff Simeon DO Work Phone: [facility] 05-30-2021 09:15-0400 Heart rate 80 /min Jeff Simeon DO Work Phone: [facility] 05-30-2021 09:15-0400 Respiratory rate 20 /min Jeff Simeon DO Work Phone: [facility] 05-30-2021 09:15-0400 Systolic blood pressure 110 mm[Hg] Jeff Simeon DO Work Phone: [facility] Encounters Encounter Date Encounter Type Care Provider Facility Start: 01-15-2025 ambulatory Jeff Simeon Facilit y:[facility] Start: 12-23-2024 End: 12-23-2024 ambulatory JEFF L SIMEON Facility:[facility] Start: 12-22-2024 Encounter for other preprocedural examination Santosh Ballard [facility] Start: 12-19-2024 End: 12-19-2024 ambulatory FARRUKH DYE Facility:[facility] Start: 12-09-2024 End: 12-09-2024 ambulatory Jeff Simeon Facility:[facility] Start: 12-09-2024 End: 12-09-2024 ambulatory Jeff Simeon Facility:[facility] Start: 11-21-2024 End: 11-21-2024 ambulatory JEFF L SIMEON Facility:[facility] Start: 11-14-2024 End: 11-14-2024 ambulatory JEFF L SIMEON Facility:[facility] Start: 11-04-2024 End: 11-04-2024 Patient encounter procedure Jarrell Crystal DO -[facility] Work Phone: Start: 11-04-2024 End: 11-04-[address] Jeff Simeon DO Work Phone: -[facility] Start: 10-23-2024 End: 10-23-[address] Maco Singh MD -[facility] Work Phone: Start: 10-23-2024 End: 10-23-[address] Jeff Simeon DO Work Phone: -[facility] Start: 10-16-2024 ambulatory Maco Sinhg Facility:[facility] Start: 10-16-[address] Jayro Singh MD -[facility] Start: 09-15-2024 End: 09-15-2024 Refill Jeff Simeon DO Work Phone: [facility] Comment on above: Refill Request Start: 07-11-2024 End: 07-11-2024 Refill Jeff Simeon DO Work Phone: [facility] Comment on above: Refill Request Start: 05-30-2024 End: 05-30-2024 ambulatory Jeff Simeon Facility:[facility] Start: 05-28-2024 End: 07-28-2024 Follow-up encounter Jeff Simeon DO Work Phone: [facility] Comment on above: Results Start: 2024 End: 2024 Follow-up encounter Karson Woodward APRN.CNP Work Phone: [facility] Comment on above: Results Start: 2024 End: 2024 Subsequent hospital visit by physician [facility] Work Phone: Radiology Comment on above: Left leg swelling [M 79.89] Start: 2024 End: 2024 ambulatory JEFF SIMEON Facility:[facility] Start: 2024 End: 2024 ambulatory JEFF SIMEON Facility:[facility] Start: 2024 End: 2024 Patient encounter procedure Jeff Simeon DO Work Phone: [facility] Comment on above: Type 2 diabetes eliseo itus with hypertriglyceridemia (HCC) (Primary Dx); Hypothyroidism, acquired; Encounter for screening mammogram for malignant neoplasm of breast; Left leg swelling; Vitamin D deficiency; Vitamin B12 deficiency; Other iron deficiency anemia; Right leg swelling; Essential hypertension with goal blood pressure less than 130/80; S/P colectomy; Colon neoplasm Start: 2024 ambulatory Jeff Simeon Facilit y:[facility] Start: 05-06-2024 End: 05-06-2024 Patient encounter procedure Jarrellsuzan Crystal DO -[facility] Work Phone: Start: 05-06-2024 End: 05-06-2024 ambulatory Jeff Smieon Facility:[facility] Start: 04-29-2024 End: 05-12-[address] Maco Singh MD -[facility] Work Phone: Start: 04-29-2024 End: 05-12-[address] Jeff Simeon DO Work Phone: [facility] Work Phone: Start: 04-17-[address] Jayro Singh MD -[facility] Start: 04-17-2024 End: 04-17-[address] Maco Singh MD -[facility] Work Phone: Start: 04-17-2024 End: 04-17-2024 ambulatory Maco Singh Facility:[facility] Start: 02-14-2024 End: 03-05-2024 Telephone encounter Karson Woodward APRN.CNP Work Phone: [facility] Comment on above: call Dr. 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 Maco Singh MD -[facility] Work Phone: Start: 01-24-2024 End: 01-24-2024 ambulatory Maco Singh Facility:[facility] Start: 01-22-2024 End: 01-22-2024 Patient encounter procedure Adriana Olmedo ND -[facility] Work Phone: Start: 01-22-2024 End: 01-22-2024 ambulatory Jeff Simeon Facility:[facility] Start: 11-20-2023 End: 11-20-2023 Patient encounter procedure Jeff Simeon DO Work Phone: [facility] Comment on above: Controlled type 2 di abetes mellitus without complication, without long-term current use of insulin (HCC) (Primary Dx); S/P colectomy; Bilateral lower extremity edema; Vitamin B12 deficiency; Hypokalemia; Colon neoplasm; Hypothyroidism, acquired; Weight loss; Muscle weakness; Gait abnormality Start: 11-14-2023 End: 11-15-2023 Telephone encounter Karsonradha Woodward YOLANDA Work Phone: [facility] Comment on above: Results Start: 11-12-2023 End: 11-13-2023 Nursing evaluation of patient and report Mi Nurse Work Phone: [facility] Comment on above: Vitamin B12 deficien cy (Primary Dx) Refill Request Start: 10-29-2023 End: 11-05-2023 Telephone encounter Jeff Simeon DO Work Phone: [facility] Comment on above: Patient Update; Medi cation Request Start: 10-29-2023 End: 10-29-2023 Nursing evaluation of patient and report Mi Nurse Work Phone: [facility] Comment on above: Vitamin B12 deficien cy (Primary Dx) Start: 10-24-2023 End: 10-24-2023 Patient encounter procedure Karson Monroelesley ESPINOZA.ELECTRICAL ENGINEERING DIRECTOR Work Phone: [facility] Comment on above: Bilateral lower extr emity edema (Primary Dx); S/P colectomy; Colon neoplasm; Colitis; Hypothyroidism, acquired; 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); Vitamin B12 deficiency; Vitamin D deficiency; Iron deficiency Start: 10-24-2023 End: 11-14-2023 Telephone encounter Karson Woodward APRN.ELECTRICAL ENGINEERING DIRECTOR Work Phone: [facility] Comment on above: contact outside prov ider Start: 10-16-2023 End: 10-16-2023 Nursing evaluation of patient and report Mi Nurse Work Phone: [facility] Comment on above: Vitamin B12 deficien cy (Primary Dx) Refill Request Start: 10-01-2023 End: 10-03-2023 Telephone encounter Jeff Simeon DO Work Phone: [facility] Comment on above: Patient Update Start: 10-01-2023 End: 10-01-2023 Nursing evaluation of patient and report Mi Nurse Work Phone: [facility] Comment on above: Vitamin B12 deficien cy (Primary Dx) Start: 09-17-2023 End: 09-17-2023 Nursing evaluation of patient and report Mi Nurse Work Phone: [facility] Comment on above: Vitamin B12 deficien cy (Primary Dx) Start: 09-04-2023 Telephone encounter Jeff Simeon DO Work Phone: [facility] Comment on above: Orders Start: 09-03-2023 End: 09-03-2023 Nursing evaluation of patient and report Mi Nurse Work Phone: [facility] Comment on above: Vitamin B12 deficien cy (Primary Dx) Start: 08-20-2023 End: 08-20-2023 Nursing evaluation of patient and report Mi Nurse Work Phone: [facility] Comment on above: Vitamin B12 deficien cy (Primary Dx) Start: 08-07-2023 End: 08-07-2023 Nursing evaluation of patient and report Mi Nurse Work Phone: [facility] [place] Comment on above: Vitamin B12 deficien cy (Primary Dx) Start: 07-18-2023 Refill Jeff Simeon DO Work Phone: [facility] [place] Comment on above: Refill Request Start: 07-17-2023 End: 07-17-2023 Nursing evaluation of patient and report Mi Nurse Work Phone: [facility] Comment on above: Vitamin B12 deficien cy (Primary Dx) Start: 07-11-2023 End: 07-11-2023 Patient encounter procedure Sharyn Rodriguez PA-C Work Phone: [facility] Comment on above: Bilateral impacted c erumen (Primary Dx) Start: 06-25-2023 End: 07-02-2023 Patient encounter procedure Jeff Simeon DO Work Phone: [facility] [place] Comment on above: Essential hypertensi on with goal blood pressure less than 130/80 (Primary Dx); 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); Hypertriglyceridemia; Vitamin B12 deficiency; Malabsorption syndrome; Fatty liver; Hypothyroidism, acquired; Colon neoplasm; S/P colectomy Start: 06-22-[address] lesley GUERRERO Work Phone: [facility] [place] Comment on above: Results Start: 06-18-2023 Telephone encounter Jeff Simeon DO Work Phone: [facility] [place] Comment on above: Lab Orders Start: 06-13-2023 End: 06-13-2023 Nursing evaluation of patient and report Mi Nurse Work Phone: [facility] [place] Comment on above: Vitamin B12 deficien cy (Primary Dx) Start: 05-30-2023 End: 05-30-2023 Nursing evaluation of patient and report Mi Nurse Work Phone: [facility] [place] Comment on above: Vitamin B12 deficien cy (Primary Dx) Start: 2023 End: [address] Jeff Simeon Work Phone: [facility] Work Phone: Start: 2023 End: [address] Jeff Simeon Work Phone: [facility]Out[facility] Work Phone: Start: 05-16-2023 End: 05-16-2023 Nursing evaluation of patient and report Mi Nurse Work Phone: [facility] Comment on above: Vitamin B12 deficien cy (Primary Dx) Start: 05-02-2023 End: 05-02-2023 Nursing evaluation of patient and report Mi Nurse Work Phone: [facility] Comment on above: Vitamin B12 deficien cy (Primary Dx) Start: 04-16-2023 End: 04-16-2023 Nursing evaluation of patient and report Mi Nurse Work Phone: [facility] Comment on above: Vitamin B12 deficien cy (Primary Dx) Start: 04-12-2023 End: 04-12-[address] Jeff Simeon Work Phone: [facility] Work Phone: Start: 04-11-2023 End: 04-11-[address] Jeff Simeon Work Phone: [facility] Work Phone: Start: 04-11-2023 End: 04-11-[address] Jeff Simeon Work Phone: [facility] Work Phone: Start: 04-04-2023 End: 04-04-[address] Jeff Simeon Work Phone: [facility] Work Phone: Start: 04-04-2023 Non-patient / Non-visit Dr. Sandra Simeon Work Phone: [facility] Start: 04-04-2023 End: 04-04-2023 Nursing evaluation of patient and report Mi Nurse Work Phone: [facility] Comment on above: Vitamin B12 deficien cy (Primary Dx) Start: 04-04-2023 End: 04-04-[address] Jeff Simeon Work Phone: [facility] Work Phone: Start: 03-22-2023 End: 03-22-[address] Jeff Simeon Work Phone: [facility] Work Phone: Start: 03-22-2023 End: 03-22-2023 Nursing evaluation of patient and report Mi Nurse Work Phone: [facility] Comment on above: Vitamin B12 deficien cy (Primary Dx) Start: 03-22-[address] Denver Simeon Work Phone: [facility] Start: 03-21-2023 End: 03-21-[address] Jeff Simeon Work Phone: [facility] Work Phone: Start: 03-19-2023 End: 03-19-2023 Patient encounter procedure Karson Woodward APRN.CNP Work Phone: [facility] Comment on above: Colon neoplasm (Prim kevin Dx); S/P colectomy; Nausea Start: 03-15-2023 End: 03-15-[address] Jeff Simeon Work Phone: [facility] Work Phone: Start: 03-15-2023 Patient Outreach Tiffany moreau epic ambulatory analystsChisel Trimmer Management Comment on above: Transition Of Care ( TCM Initial Outreach: [facility] 03/11/23, RLQ abdominal pain) Start: 03-11-2023 Non-patient / Non-visit Dr. Sandra Simeon Work Phone: [facility] Work Phone: Start: 03-10-2023 Non-patient / Non-visit Dr. Sandra Simeon Work Phone: [facility] Work Phone: Start: 03-10-2023 Non-patient / Non-visit Dr. Sandra Simeon Work Phone: [facility] Start: 03-09-2023 Non-patient / Non-visit Dr. Sandra Simeon Work Phone: [facility] Work Phone: Start: 03-09-2023 Non-patient / Non-visit Dr. Sandra Simeon Work Phone: [facility] Start: 03-08-2023 Non-patient / Non-visit Dr. Sandra Simeon Work Phone: [facility] Work Phone: Start: 03-08-2023 Non-patient / Non-visit Dr. Sandra Simeon Work Phone: [facility] Start: 03-07-2023 Non-patient / Non-visit Dr. Sandra Simeon Work Phone: [facility] Work Phone: Start: 03-07-2023 Non-patient / Non-visit Dr. Sandra Simeon Work Phone: [facility] Start: 03-06-2023 Non-patient / Non-visit Dr. Sandra Simeon Work Phone: [facility] Work Phone: Start: 03-05-2023 Non-patient / Non-visit Dr. Sandra Simeon Work Phone: [facility] Start: 03-05-2023 End: 03-11-2023 Evaluation and management of inpatient Dr. Jeff Simeon Work Phone: [facility]Pro[facility] Care [facility] Work Phone: Start: 01-25-2023 End: 01-25-2023 Nursing evaluation of patient and report Mi Nurse Work Phone: [facility] Comment on above: Vitamin B12 deficien cy (Primary Dx) Start: 12-28-2022 End: 12-28-2022 Nursing evaluation of patient and report Mi Nurse Work Phone: [facility] Comment on above: Vitamin B12 deficien cy (Primary Dx) Start: 12-08-2022 End: 12-08-2022 Patient encounter procedure Jeff Simeon DO Work Phone: [facility] Comment on above: Controlled type 2 di abetes mellitus without complication, without long-term current use of insulin (HCC) (Primary Dx); Elevated alkaline phosphatase level; Vitamin B12 deficiency; Hypothyroidism, acquired; Iron deficiency; Vitamin D deficiency; Hypertriglyceridemia; Fatigue, unspecified type; Fatty liver Start: 11-30-2022 End: 11-30-2022 Nursing evaluation of patient and report Mi Nurse Work Phone: [facility] Comment on above: Vitamin B12 deficien cy (Primary Dx) Start: 11-16-2022 End: 11-16-2022 Nursing evaluation of patient and report Mi Nurse Work Phone: [facility] Comment on above: Vitamin B12 deficien cy (Primary Dx) Start: 11-03-2022 End: 11-03-2022 Nursing evaluation of patient and report Mi Nurse Work Phone: [facility] Comment on above: Vitamin B12 deficien cy (Primary Dx) Start: 10-17-2022 End: 10-17-2022 Nursing evaluation of patient and report Mi Nurse Work Phone: [facility] [place] Comment on above: Vitamin B12 deficien cy (Primary Dx) Start: 10-05-2022 Telephone encounter [facility] Start: 10-02-2022 End: 10-02-2022 Nursing evaluation of patient and report Mi Nurse Work Phone: [facility] Comment on above: Vitamin B12 deficien cy (Primary Dx) Start: 09-19-2022 End: 09-19-2022 Nursing evaluation of patient and report Mi Nurse Work Phone: [facility] Comment on above: Vitamin B12 deficien cy (Primary Dx) Start: 08-07-2022 End: 08-07-2022 Nursing evaluation of patient and report Mi Nurse Work Phone: [facility] Comment on above: Other vitamin B12 de ficiency anemia (Primary Dx) Start: 07-11-2022 End: 07-11-2022 Nursing evaluation of patient and report Mi Nurse Work Phone: [facility] [place] Comment on above: Other vitamin B12 de ficiency anemia (Primary Dx) Start: 06-12-2022 End: 06-12-2022 Nursing evaluation of patient and report Mi Nurse Work Phone: [facility] [place] Comment on above: Other vitamin B12 de ficiency anemia (Primary Dx) Start: 05-24-2022 End: 05-24-2022 Patient encounter procedure Jeff Steele Simeon DO Work Phone: [facility] Comment on above: Controlled type 2 di abetes mellitus without complication, without long-term current use of insulin (HCC) (Primary Dx); RUQ abdominal pain; Calculus of gallbladder without cholecystitis without obstruction; Fatty liver; Hypothyroidism, acquired; Vitamin D deficiency; Other vitamin B12 deficiency anemia; Iron deficiency Start: 05-22-2022 End: 05-22-2022 ambulatory [facility] Work Phone: Start: 05-22-2022 End: 05-22-2022 Patient encounter procedure [facility] Start: 05-15-2022 End: 05-15-2022 Nursing evaluation of patient and report Mi Nurse Work Phone: [facility] Comment on above: Vitamin B12 deficien cy (Primary Dx) Start: 04-13-2022 End: 04-13-2022 Patient encounter procedure Nguyen Graf JACKSON Work Phone: General Surgery Comment on above: Aftercare following surgery (Primary Dx) Start: 04-10-2022 End: 04-10-2022 Patient encounter procedure Nguyen Campos RENETTA Work Phone: General Surgery Comment on above: Post-op pain (Primar y Dx); S/P laparoscopic cholecystectomy Start: 04-05-2022 End: 04-06-2022 ambulatory JESSEE HOLLOWAY Facility:[facility] Start: 04-03-2022 End: 04-03-2022 Admission to establishment [facility] [place] [facility] Work Phone: [facility] Start: 04-03-2022 End: 04-03-2022 ambulatory [facility] Work Phone: Pre Anesthesia Comment on above: Essential hypertensi on with goal blood pressure less than 130/80; Hypertriglyceridemia; Hypothyroidism, acquired; Controlled type 2 diabetes mellitus without complication, without long-term current use of insulin (HCC); Other iron deficiency anemia Start: 03-24-2022 End: 03-24-2022 Patient encounter procedure Jessee Holloway MD Work Phone: General Surgery Comment on above: RUQ abdominal pain; Calculus of gallbladder without cholecystitis without obstruction; Fatty liver Start: 03-20-2022 End: 03-20-2022 Nursing evaluation of patient and report Mi Nurse Work Phone: [facility] Comment on above: Vitamin B12 deficien cy (Primary Dx) Start: 03-16-2022 Telephone encounter Jeff Simeon DO Work Phone: [facility] [place] Comment on above: Results Start: 02-20-2022 End: 02-20-2022 Patient encounter procedure Jeff Simeon DO Work Phone: [facility] [place] Comment on above: Controlled type 2 di abetes mellitus without complication, without long-term current use of insulin (HCC) (Primary Dx); Encounter for screening mammogram for malignant neoplasm of breast; Hypothyroidism, acquired; Vitamin B12 deficiency; Other vitamin B12 deficiency anemia; Vitamin D deficiency; Iron deficiency; Malabsorption syndrome; Hypertriglyceridemia Start: 01-17-2022 End: 01-17-2022 Nursing evaluation of patient and report Mi Nurse Work Phone: [facility] Comment on above: Vitamin B12 deficien cy (Primary Dx) Start: 12-20-2021 End: 12-20-2021 Nursing evaluation of patient and report Mi Nurse Work Phone: [facility] Comment on above: Vitamin B12 deficien cy (Primary Dx) Start: 11-15-2021 End: 11-15-2021 Patient encounter procedure Jeff Simeon DO Work Phone: [facility] Comment on above: Uncontrolled type 2 diabetes mellitus with hyperglycemia (HCC) (Primary Dx); Vitamin B12 deficiency; Controlled type 2 diabetes mellitus without complication, without long-term current use of insulin (HCC); Hypothyroidism, acquired; Other vitamin B12 deficiency anemia; Iron deficiency; Vitamin D deficiency Start: 10-20-2021 End: 10-20-2021 Nursing evaluation of patient and report Mi Nurse Work Phone: [facility] Comment on above: Vitamin B12 deficien cy (Primary Dx) Start: 07-18-2021 End: 07-18-2021 Nursing evaluation of patient and report Mi Nurse Work Phone: [facility] Comment on above: Vitamin B12 deficien cy (Primary Dx) Start: 07-04-2021 End: 07-04-2021 Nursing evaluation of patient and report Mi Nurse Work Phone: [facility] Comment on above: Vitamin B12 deficien cy (Primary Dx) Start: 06-20-2021 End: 06-20-2021 Nursing evaluation of patient and report Mi Nurse Work Phone: [facility] Comment on above: Vitamin B12 deficien cy (Primary Dx) Start: 06-06-2021 End: 06-06-2021 Nursing evaluation of patient and report Mi Nurse Work Phone: [facility] Comment on above: Vitamin B12 deficien cy (Primary Dx) Start: 05-30-2021 End: 05-30-2021 Patient encounter procedure Jeff Simeon DO Work Phone: [facility] Comment on above: Controlled type 2 di abetes mellitus without complication, without long-term current use of insulin (HCC) (Primary Dx); Vitamin B12 deficiency; Malabsorption syndrome; Other vitamin B12 deficiency anemia; Fatigue, unspecified type; Other iron deficiency anemia; Hypothyroidism, acquired; Hypertriglyceridemia Start: 05-25-2021 Telephone encounter Karson Angeles YOLANDA Work Phone: [facility] Comment on above: Results Start: 05-20-2021 End: 05-20-2021 Patient encounter procedure [facility] Start: 05-18-2021 Telephone encounter Jeff Simeon DO Work Phone: [facility] Comment on above: Orders Start: 08-25-2020 End: 08-25-2020 Subsequent hospital visit by physician Xr [facility] Work Phone: Radiology Comment on above: Chronic pain of righ t ankle [M25.571, G89.29] Start: 02-26-2018 End: 02-26-2018 Patient encounter procedure TIFFANYPura SETHI EDUARDO [facility] Procedures Date Procedure Procedure Detail Performing Clinician Start: 10-16-[address] Denver Simeon DO Work Phone: Start: 10-16-[address] Denver Simeon DO Work Phone: Start: 10-16-2024 Total iron binding capacity measurement Dr. Jeff Simeon DO Work Phone: Start: 2024 Dup-scan xtr veins complete bilateral study Jeff Simeon DO Work Phone: Start: 04-17-[address] Jeff Simeon DO Work Phone: Comment on above: Nonsmokers <3.9 Smokers <5.6[employer] Electrochemiluminescence Immunoassay(ECLIA)Values obtained with different assay methods or kitscannot be used interchangeably. Results cannot beinterpreted as absolute evidence of the presence orabsence of malignant disease.Performed at: [address] [id number] Director: Flako Araujo PhD, Phone: [phone] Start: 04-17-[address] Jeff Simeon DO Work Phone: Start: 04-17-[address] phosphate [address] Jeff Simeon DO Work Phone: Start: 01-24-2024 Measurement of renal function Dr. Jeff Simeon DO Work Phone: Comment on above: GFR Calc Start: 01-22-2024 MRI of small intestine Dr. Jeff Simeon DO Work Phone: Start: 11-19-2023 Albumin/Globulin ratio Dr. Jeff Simeon DO Work Phone: Start: 11-19-[address] Jeff Simeon DO Work Phone: Comment on above: *Additional results available. Contact l aboratory/see report*The atypical pANCA pattern has been observed in asignificant percentage of patients with ulcerative colitis,primary sclerosing cholangitis and autoimmune hepatitis.Performed at: [address] [id number] Director: Chary Cox MD, Phone: [phone] at: [address] [id number] Director: Flako Araujo PhD, Phone: [phone] Start: 11-19-2023 Antibody to centromere measurement Dr. Jeff Simeon DO Work Phone: Start: 11-19-2023 Antibody to extractable nuclear antigen measurement Dr. Jeff Simeon DO Work Phone: Start: 11-19-2023 Antibody to SANDRA-[address] Jeff Simeon DO Work Phone: Start: 11-19-2023 Antibody to lupus La protein measurement Dr. Jeff Simeon DO Work Phone: Start: 11-19-2023 Antibody to SS-A measurement Dr. Jeff Simeon DO Work Phone: Start: 11-19-[address] Jeff Simeon DO Work Phone: Start: 11-19-[address] Jeff Simeon DO Work Phone: Start: 11-19-20[address] Endomysial antibody IgA level Dr. Jeff Simeon DO Work Phone: Start: 11-19-[address] Jeff Simeon DO Work Phone: Start: 11-19-2023 Gliadin antibody, IgA measurement Dr. Jeff Simeon DO Work Phone: Comment on above: Negative 0 - 19 Weak Positive 20 - 30 Mo derate to Strong Positive >30 Start: 11-19-2023 Gliadin antibody, IgG measurement Dr. Jeff Simeon DO Work Phone: Comment on above: Negative 0 - 19 Weak Positive 20 - 30 Mo derate to Strong Positive >30 Start: 11-19-[address] Jeff Simeon DO Work Phone: Start: 11-19-2023 Measurement of fungal antibody Dr. Denver Simeon DO Work Phone: Comment on above: Negative: <45 Equivocal: 45-50 Positive: >50 Start: 11-19-2023 FACILITIES MANAGEMENT EXECUTIVE antibody measurement Dr. Jeff Simeon DO Work Phone: Start: 11-19-[address] Jeff Simeon DO Work Phone: Start: 09-26-2023 Ova&parasites direct smears concentration & id Dr. Jeff Simeon DO Work Phone: Start: 09-26-[address] Natalie Simeon DO Work Phone: Start: 09-26-[address] Jeff Simeon DO Work Phone: Start: 09-26-2023 Measurement of occult blood in stool specimen using immunoassay Dr. Jeff Simeon DO Work Phone: Start: 09-26-[address]va [address] parasites identification [address] Natalie Simeon DO Work Phone: Start: 06-25-2023 Adult depression screening assessment Jeff Simeon DO Work Phone: Start: [address] Jeff Simeon Work Phone: Start: 04-04-2023 CT of thorax with contrast Dr. Jeff Simeon Work Phone: Start: 03-21-[address] Natalie Simeon DO Work Phone: Start: 03-21-[address] Jeff Simeon Work Phone: Start: 03-07-2023 Plain chest X-ray Dr. Jeff Simeon Work Phone: Start: 03-06-2023 Computed tomography of abdomen and pelvis with contrast Dr. Jeff Simeon Work Phone: Start: 03-06-2023 Laparoscopic, Nick Colectomy (Not Applicable) Dr. Jeff Simeon Work Phone: Start: 03-06-[address] Jeff Simeon Work Phone: Start: 03-06-2023 Investigation of transfusion reaction Dr. Jeff Simeon Work Phone: Start: 03-06-2023 Microbial culture, routine Dr. Jeff Simeon Work Phone: Start: 03-05-2023 CT of abdomen and pelvis without contrast Dr. Jeff Simeon Work Phone: Start: 05-22-2022 Screening mammography Start: 08-24-2021 Adult depression screening assessment Mi Nurse Work Phone: Start: 05-20-2021 End: 05-20-2021 Screening mammography Start: 08-25-2020 Radex ankle complete minimum 3 views Jeff Simeon DO Work Phone: Start: 08-25-2020 Adult depression screening assessment Jeff Simeon DO Work Phone: Start: 05-14-2020 Mammography Jeff Simeon DO Work Phone: Start: 02-26-2018 Colonoscopy Jeff Simeon DO Work Phone: History of cholecystectomy S/P l aparoscopic cholecystectomy Nguyen Campos PA-C Work Phone: Plan of Treatment Date Care Activity Detail Author Start: 02-27-2028 Colonoscopy COLONOSCOPY [facility] Start: 02-27-2028 COLORECTAL CANCER SCREENING COLORECTAL CANCER SCREENING [facility] Start: 02-27-2028 Screening for malignant neoplasm of colon [facility] Start: 2025 Annual PCP Team Chronic Disease Visit Annual PCP Team Chronic Disease Visit [facility] Start: 2025 BP Controlled (<130/80) BP Controlled (<130/80) [facility] Start: 2025 Covid-19 Vaccine () Covid-19 Vaccine () [facility] Comment on above: Postponed from 10/14/2023 (Declined at t his time) Start: 04-09-2025 Vitamin B12 measurement [facility] Start: 02-13-2025 Annual PCP Team Chronic Disease Visit Annual PCP Team Chronic Disease Visit [facility] Start: 02-13-2025 BP Controlled (<130/80) BP Controlled (<130/80) [facility] Start: 02-03-2025 Hepatitis B surface antibody level LDL Cholesterol [facility] Start: 01-03-2025 Glaucoma screening Dilated Retinal Exam [facility] Start: 11-21-2024 End: 11-21-2024 Patient encounter procedure 11/21/2024 9:40 AM EDT Office Visit Family Dale Garcia [address] [place] [id number] Jeff Simeon DO [address] [place] [id number] 6 month follow up Family Dale Garcia Comment on above: 6 month follow up Start: 11-19-2024 Annual PCP Team Chronic Disease Visit Annual PCP Team Chronic Disease Visit [facility] Start: 11-19-2024 BP Controlled (<130/80) BP Controlled (<130/80) [facility] Start: 10-23-2024 Annual PCP Team Chronic Disease Visit Annual PCP Team Chronic Disease Visit [facility] Start: 10-23-2024 BP Controlled (<130/80) BP Controlled (<130/80) [facility] Start: 10-13-2024 Influenza vaccination [facility] Start: 08-11-2024 Influenza [facility] Comment on above: Postponed from 10/14/2023 (Declined at t his time) Start: 08-04-2024 Hemoglobin A1c measurement HbA1C [facility] Start: 06-24-2024 Annual PCP Team Chronic Disease Visit Annual PCP Team Chronic Disease Visit [facility] Start: 06-24-2024 Anxiety Screening Anxiety Screening [facility] Start: 06-24-2024 BP Controlled (<130/80) BP Controlled (<130/80) [facility] Start: 06-24-2024 Depression Screening Depression Screening [facility] Start: 2024 End: 08-22-2024 25-hydroxyvitamin D3 [Mass/volume] in Serum or Plasma [facility] Comment on above: Expected: 2024, Expires: Start: 2024 End: 08-22-2024 Cobalamin (Vitamin B12) [Mass/volume] in Serum or Plasma [facility] Comment on above: Expected: 2024, Expires: Start: 2024 End: 08-22-2024 Thyrotropin [Units/volume] in Serum or Plasma [facility] Comment on above: Expected: 2024, Expires: Start: 2024 End: 08-22-2024 Thyroxine (T4) free [Mass/volume] in Serum or Plasma [facility] Comment on above: Expected: 2024, Expires: Start: 2024 End: 2024 Patient encounter procedure 2024 9:40 AM EDT Office Visit [facility] [address] [place], [place] [id number] Jeff Simeon DO [address] [place] [id number] 3 month follow up Family [facility] Comment on above: 3 month follow up Start: 05-13-2024 Hemoglobin A1c measurement HbA1C [facility] Start: 03-19-2024 Annual PCP Team Chronic Disease Visit Annual PCP Team Chronic Disease Visit [facility] Start: 03-19-2024 BP Controlled (<130/80) BP Controlled (<130/80) [facility] Start: 02-27-2024 Patient referral [facility] Work Phone: Start: 02-14-2024 End: 02-14-2024 Patient encounter procedure 02/14/2024 10:20 AM EST Office Visit Family [facility] Garcia [address] [place] [id number] Karsno Woodward APRN.ELECTRICAL ENGINEERING DIRECTOR [address] [place] [id number] 3 mo follow up Family [facility] Garcia Comment on above: 3 mo follow up Start: 02-13-2024 Medicare [facility] Annual Wellness Visit Medicare [facility] Annual Wellness Visit [facility] Start: 02-01-2024 End: 05-02-2024 25-hydroxyvitamin D3 [Mass/volume] in Serum or Plasma VITAMIN D 25 HYDROXY Lab Routine Vitamin D deficiency Expected: 02/01/2024, Expires: 05/02/2024 [facility] Comment on above: Expected: 02/01/2024, Expires: Start: 02-01-2024 End: 05-02-2024 CBC panel - Blood by Automated count COMPLETE BLOOD COUNT Lab Routine Essential hypertension with goal blood pressure less than 130/80 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) Iron deficiency Expected: 02/01/2024, Expires: 05/02/2024 [facility] Comment on above: Expected: 02/01/2024, Expires: Start: 02-01-2024 End: 05-02-2024 Cobalamin (Vitamin B12) [Mass/volume] in Serum or Plasma VITAMIN B12 Lab Routine Vitamin B12 deficiency Expected: 02/01/2024, Expires: 05/02/2024 [facility] Comment on above: Expected: 02/01/2024, Expires: Start: 02-01-2024 End: 05-02-2024 Comprehensive metabolic 2000 panel - Serum or Plasma COMPREHENSIVE METABOLIC PANEL Lab Routine Essential hypertension with goal blood pressure less than 130/80 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) Fatty liver Expected: 02/01/2024, Expires: 05/02/2024 [facility] Comment on above: Expected: 02/01/2024, Expires: Start: 02-01-2024 End: 05-02-2024 Ferritin [Mass/volume] in Serum or Plasma FERRITIN Lab Routine Iron deficiency Expected: 02/01/2024, Expires: 05/02/2024 [facility] Comment on above: Expected: 02/01/2024, Expires: Start: 02-01-2024 End: 05-02-2024 Hemoglobin A1c in Blood HEMOGLOBIN A1C Lab Routine 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) Expected: 02/01/2024, Expires: 05/02/2024 [facility] Work Phone: Comment on above: Expected: 02/01/2024, Expires: Start: 02-01-2024 End: 05-02-2024 Iron and Iron binding capacity panel - Serum or Plasma IRON AND TIBC Lab Routine Iron deficiency Expected: 02/01/2024, Expires: 05/02/2024 [facility] Comment on above: Expected: 02/01/2024, Expires: Start: 02-01-2024 End: 05-02-2024 Lipid 1996 panel - Serum or Plasma LIPID PANEL BASIC Lab Routine Hypertriglyceridemia Expected: 02/01/2024, Expires: 05/02/2024 [facility] Comment on above: Expected: 02/01/2024, Expires: Start: 02-01-2024 End: 05-02-2024 Thyrotropin [Units/volume] in Serum or Plasma THYROID STIMULATING HORMONE Lab Routine Hypothyroidism, acquired Expected: 02/01/2024, Expires: 05/02/2024 [facility] Comment on above: Expected: 02/01/2024, Expires: 5 Start: 02-01-2024 End: 05-02-2024 Thyroxine (T4) free [Mass/volume] in Serum or Plasma T4 FREE/FREE THYROXINE Lab Routine Hypothyroidism, acquired Expected: 02/01/2024, Expires: 05/02/2024 [facility] Comment on above: Expected: 02/01/2024, Expires: 5 Start: 01-23-2024 End: 04-23-2024 CBC panel - Blood by Automated count COMPLETE BLOOD COUNT Lab Routine Iron deficiency Expected: 01/23/2024, Expires: 04/23/2024 [facility] Work Phone: Comment on above: Expected: 01/23/2024, Expires: Start: 12-21-2023 Hemoglobin A1c measurement HbA1C [facility] Start: 12-09-2023 Annual PCP Team Chronic Disease Visit Annual PCP Team Chronic Disease Visit [facility] Start: 12-09-2023 BP Controlled (<130/80) BP Controlled (<130/80) [facility] Start: 12-09-2023 Covid-19 Vaccine () Covid-19 Vaccine () [facility] Comment on above: Postponed from 10/13/2022 (Declined at t his time) Start: 12-01-2023 Hepatitis B screening Urine Albumin:Creatinine Ratio [facility] Start: 12-01-2023 Hepatitis B surface antibody level LDL Cholesterol [facility] Start: 11-28-2023 End: 02-27-2024 Potassium [Moles/volume] in Serum or Plasma POTASSIUM Lab Routine Hypokalemia Expected: 11/28/2023 (Approximate), Expires: 02/27/2024 [facility] Work Phone: Comment on above: Expected: 11/28/2023 (Approximate), Expi res: 02/27/2024 Start: 11-26-2023 End: 11-26-2023 Nursing evaluation of patient and report 11/26/2023 10:00 AM EDT Nurse Visit [facility] [place] [address] [place] [address] Nurse, In [address] [place] [address] B-12 injection [facility] Comment on above: B-12 injection Start: 11-20-2023 End: 11-20-2023 Patient encounter procedure 11/20/2023 8:40 AM EDT Office Visit Family [facility] Garcia [address] [place] [address] Jeff Simeon DO [address] [place] [address] 3 month follow up [facility] Comment on above: 3 month follow up Start: 11-12-2023 End: 11-12-2023 Nursing evaluation of patient and report 11/12/2023 10:45 AM EDT Nurse Visit [facility] [place] [address] [place] [address] Nurse, In [address] [place] [address] B-12 injection [facility] Comment on above: B-12 injection Start: 10-29-2023 End: 10-29-2023 Nursing evaluation of patient and report 10/29/2023 9:45 AM EDT Nurse Visit [facility] [place] [address] [place] [address] Nurse, In [address] [place] [address] B-12 injection [facility] [place] Comment on above: B-12 injection Start: 10-24-2023 End: 01-23-2024 25-hydroxyvitamin D3 [Mass/volume] in Serum or Plasma VITAMIN D 25 HYDROXY Lab Routine Vitamin D deficiency Expected: 10/24/2023, Expires: 01/23/2024 [facility] Comment on above: Expected: 10/24/2023, Expires: Start: 10-24-2023 End: 01-23-2024 Cobalamin (Vitamin B12) [Mass/volume] in Serum or Plasma VITAMIN B12 Lab Routine Vitamin B12 deficiency Expected: 10/24/2023, Expires: 01/23/2024 [facility] Comment on above: Expected: 10/24/2023, Expires: Start: 10-24-2023 End: 01-23-2024 Comprehensive metabolic 2000 panel - Serum or Plasma COMPREHENSIVE METABOLIC PANEL Lab Routine 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) Expected: 10/24/2023, Expires: 01/23/2024 [facility] Comment on above: Expected: 10/24/2023, Expires: 4 Start: 10-24-2023 End: 01-23-2024 Ferritin [Mass/volume] in Serum or Plasma FERRITIN Lab Routine Iron deficiency Expected: 10/24/2023, Expires: 01/23/2024 [facility] Comment on above: Expected: 10/24/2023, Expires: Start: 10-24-2023 End: 01-23-2024 Hemoglobin A1c in Blood HEMOGLOBIN A1C Lab Routine 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) Expected: 10/24/2023, Expires: 01/23/2024 [facility] Comment on above: Expected: 10/24/2023, Expires: Start: 10-24-2023 End: 01-23-2024 Iron and Iron binding capacity panel - Serum or Plasma IRON AND TIBC Lab Routine Iron deficiency Expected: 10/24/2023, Expires: 01/23/2024 [facility] Comment on above: Expected: 10/24/2023, Expires: 4 Start: 10-24-2023 End: 01-23-2024 Thyrotropin [Units/volume] in Serum or Plasma THYROID STIMULATING HORMONE Lab Routine Hypothyroidism, acquired Expected: 10/24/2023, Expires: 01/23/2024 [facility] Comment on above: Expected: 10/24/2023, Expires: Start: 10-24-2023 End: 01-23-2024 Thyroxine (T4) free [Mass/volume] in Serum or Plasma T4 FREE/FREE THYROXINE Lab Routine Hypothyroidism, acquired Expected: 10/24/2023, Expires: 01/23/2024 [facility] Comment on above: Expected: 10/24/2023, Expires: Start: 10-16-2023 End: 10-16-2023 Nursing evaluation of patient and report 10/16/2023 9:45 AM EDT Nurse Visit [facility] [place] [address] [place] [address] Nurse, In [address] [place] [address] B-12 injection [facility] [place] Comment on above: B-12 injection Start: 10-14-2023 Covid-19 Vaccine () Covid-19 Vaccine () [facility] Start: 10-14-2023 Covid-19 Vaccine () Covid-19 Vaccine () [facility] Start: 10-14-2023 Influenza vaccination [facility] Start: 10-01-2023 End: 10-01-2023 Nursing evaluation of patient and report 10/01/2023 9:45 AM EDT Nurse Visit [facility] [place] [address] [place] [address] Nurse, In [address] [place] [address] B-12 injection [facility] [place] Comment on above: B-12 injection Start: 09-17-2023 End: 09-17-2023 Nursing evaluation of patient and report 09/17/2023 9:45 AM EDT Nurse Visit [facility] [place] [address] [place] [address] Nurse, In [address] [place] [address] B-12 injection [facility] [place] Comment on above: B-12 injection Start: 09-06-2023 3 comp foot exam completed DIABETIC FOOT EXAM [facility] Start: 09-06-2023 ANNUAL PCP TEAM CHRONIC DISEASE VISIT ANNUAL PCP TEAM CHRONIC DISEASE VISIT [facility] Start: 09-06-2023 BP CONTROLLED (<130/80) BP CONTROLLED (<130/80) [facility] Start: 09-06-2023 Diabetic foot examination Diabetic Foot Exam [facility] Start: 09-03-2023 End: 09-03-2023 Nursing evaluation of patient and report 09/03/2023 9:45 AM EDT Nurse Visit [facility] [place] [address] [place] [address] Nurse, In [address] [place] [address] B-12 injection [facility] [place] Comment on above: B-12 injection Start: 08-29-2023 Hemoglobin A1c measurement HbA1C [facility] Start: 08-20-2023 End: 08-20-2023 Nursing evaluation of patient and report 08/20/2023 9:45 AM EDT Nurse Visit [facility] [place] [address] [place] [address] Nurse, In [address] [place] [address] B-12 injection [facility] [place] Comment on above: B-12 injection Start: 08-12-2023 Influenza vaccination [facility] (#[facility] Comment on above: Postponed from 10/13/2022 (Declined at t his time) Start: 08-07-2023 End: 08-07-2023 Nursing evaluation of patient and report 08/07/2023 10:15 AM EDT Nurse Visit [facility] [place] [address] [facility] [place] [address] Nurse, In [address] [place] [address] B-12 injection [facility] [place] Comment on above: B-12 injection Start: 07-17-2023 End: 07-17-2023 Nursing evaluation of patient and report 07/17/2023 10:00 AM EDT Nurse Visit [facility] [place] [address] [place] [address] Nurse, In [address] [place] [address] B-12 injection [facility] [place] Comment on above: B-12 injection Start: 06-25-2023 End: 06-25-2023 Patient encounter procedure 06/25/2023 3:00 PM EDT Office Visit [facility] [place] [address] [facility] [place] [address] Jeff Simeon DO [address] [place] [address] 3 month follow up; B-12 injection [facility] [place] Comment on above: 3 month follow up; B-12 injection Start: 06-18-2023 End: 09-17-2023 25-hydroxyvitamin D3 [Mass/volume] in Serum or Plasma VITAMIN D 25 HYDROXY Lab Routine Vitamin D deficiency Expected: 06/18/2023, Expires: 09/17/2023 [facility] Comment on above: Expected: 06/18/2023, Expires: Start: 06-18-2023 End: 09-17-2023 CBC panel - Blood by Automated count COMPLETE BLOOD COUNT Lab Routine Controlled type 2 diabetes mellitus without complication, without long-term current use of insulin ([facility]) Expected: 06/18/2023, Expires: 09/17/2023 [facility] Comment on above: Expected: 06/18/2023, Expires: Start: 06-18-2023 End: 09-17-2023 Cobalamin (Vitamin B12) [Mass/volume] in Serum or Plasma VITAMIN B12 Lab Routine Vitamin B12 deficiency Expected: 06/18/2023, Expires: 09/17/2023 [facility] Comment on above: Expected: 06/18/2023, Expires: Start: 06-18-2023 End: 09-17-2023 Comprehensive metabolic 2000 panel - Serum or Plasma COMPREHENSIVE METABOLIC PANEL Lab Routine Controlled type 2 diabetes mellitus without complication, without long-term current use of insulin (HCC) Expected: 06/18/2023, Expires: 09/17/2023 [facility] Comment on above: Expected: 06/18/2023, Expires: Start: 06-18-2023 End: 09-17-2023 Hemoglobin A1c in Blood HEMOGLOBIN A1C Lab Routine Controlled type 2 diabetes mellitus without complication, without long-term current use of insulin (HCC) Expected: 06/18/2023, Expires: 09/17/2023 [facility] Comment on above: Expected: 06/18/2023, Expires: Start: 06-18-2023 End: 09-17-2023 Iron and Iron binding capacity panel - Serum or Plasma IRON AND TIBC Lab Routine Iron deficiency Expected: 06/18/2023, Expires: 09/17/2023 [facility] Comment on above: Expected: 06/18/2023, Expires: Start: 06-18-2023 End: 09-17-2023 Thyrotropin [Units/volume] in Serum or Plasma THYROID STIMULATING HORMONE Lab Routine Hypothyroidism, acquired Expected: 06/18/2023, Expires: 09/17/2023 [facility] Work Phone: Comment on above: Expected: 06/18/2023, Expires: Start: 06-18-2023 End: 09-17-2023 Thyroxine (T4) free [Mass/volume] in Serum or Plasma T4 FREE/FREE THYROXINE Lab Routine Hypothyroidism, acquired Expected: 06/18/2023, Expires: 09/17/2023 [facility] Comment on above: Expected: 06/18/2023, Expires: Start: 06-01-2023 Hemoglobin A1c measurement HbA1C [facility] Start: 06-01-2023 Hemoglobin A1c/Hemoglobin.total in Blood HbA1C [facility] Start: 05-25-2023 ANNUAL PCP TEAM CHRONIC DISEASE VISIT ANNUAL PCP TEAM CHRONIC DISEASE VISIT [facility] Start: 05-18-2023 Hepatitis B surface antibody level LDL CHOLESTEROL [facility] Start: 04-12-2023 Patient referral [facility] Work Phone: Start: 04-03-2023 BP CONTROLLED (<130/80) BP CONTROLLED (<130/80) [facility] Start: 03-24-2023 BP CONTROLLED (<130/80) BP CONTROLLED (<130/80) [facility] Start: 03-15-2023 Patient referral [facility] Work Phone: Start: 03-11-2023 Patient discharge [facility] Start: 03-10-2023 End: 06-09-2023 25-hydroxyvitamin D3 [Mass/volume] in Serum or Plasma VITAMIN D 25 HYDROXY Lab Routine Vitamin D deficiency Expected: 03/10/2023, Expires: 06/09/2023 [facility] Work Phone: Comment on above: Expected: 03/10/2023, Expires: Start: 03-10-2023 End: 06-09-2023 CBC panel - Blood by Automated count CBC Lab Routine Controlled type 2 diabetes mellitus without complication, without long-term current use of insulin (HCC) Iron deficiency Expected: 03/10/2023, Expires: 06/09/2023 [facility] Work Phone: Comment on above: Expected: 03/10/2023, Expires: Start: 03-10-2023 End: 06-09-2023 Cobalamin (Vitamin B12) [Mass/volume] in Serum or Plasma VITAMIN B12 BLOOD Lab Routine Vitamin B12 deficiency Expected: 03/10/2023, Expires: 06/09/2023 [facility] Work Phone: Comment on above: Expected: 03/10/2023, Expires: Start: 03-10-2023 End: 06-09-2023 Comprehensive metabolic 2000 panel - Serum or Plasma COMP METABOLIC PANEL Lab Routine Controlled type 2 diabetes mellitus without complication, without long-term current use of insulin (HCC) Iron deficiency Expected: 03/10/2023, Expires: 06/09/2023 [facility] Work Phone: Comment on above: Expected: 03/10/2023, Expires: Start: 03-10-2023 End: 06-09-2023 Hemoglobin A1c in Blood HGB A1C Lab Routine Controlled type 2 diabetes mellitus without complication, without long-term current use of insulin (HCC) Expected: 03/10/2023, Expires: 06/09/2023 [facility] Work Phone: Comment on above: Expected: 03/10/2023, Expires: Start: 03-10-2023 End: 06-09-2023 Iron and Iron binding capacity panel - Serum or Plasma IRON + TIBC Lab Routine Iron deficiency Expected: 03/10/2023, Expires: 06/09/2023 [facility] Work Phone: Comment on above: Expected: 03/10/2023, Expires: Start: 03-07-2023 [facility] Start: 03-06-2023 Computed tomography of abdomen and pelvis with contrast Abdomen/Pelvis WITH Contrast [facility] Start: 03-06-2023 Care regimes management [facility] Start: 03-06-2023 Notification of physician [facility] Start: 03-06-2023 [facility] Start: 03-06-2023 Consultation [facility] Start: 03-06-2023 Blood chemistry [facility] Start: 03-05-2023 Following clinical pathway protocol [facility] Start: 03-05-2023 Application of intermittent pneumatic compression device [facility] Start: 03-05-2023 Hospital admission, emergency, from emergency room, medical nature [facility] Start: 03-05-2023 Incentive spirometry [facility] Start: 03-05-2023 [facility] Start: 03-05-2023 Admission procedure [facility] Start: 03-01-2023 Hemoglobin A1c/Hemoglobin.total in Blood HBA1C [facility] Start: 02-20-2023 ANNUAL PCP TEAM CHRONIC DISEASE VISIT ANNUAL PCP TEAM CHRONIC DISEASE VISIT [facility] Start: 02-20-2023 BP CONTROLLED (<130/80) BP CONTROLLED (<130/80) [facility] Start: 02-12-2023 Behavioral Health Screening Behavioral Health Screening [facility] Start: 02-12-2023 Depression Assessment Depression Assessment [facility] Start: 12-27-2022 Glaucoma screening Dilated Retinal Exam [facility] Start: 12-27-2022 Hepatitis C antibody, confirmatory test DILATED RETINAL EXAM [facility] Start: 11-16-2022 Hemoglobin A1c/Hemoglobin.total in Blood HBA1C [facility] Start: 11-15-2022 ANNUAL PCP TEAM CHRONIC DISEASE VISIT ANNUAL PCP TEAM CHRONIC DISEASE VISIT [facility] Start: 11-15-2022 BP CONTROLLED (<130/80) BP CONTROLLED (<130/80) [facility] Start: 10-13-2022 Covid-19 Vaccine () Covid-19 Vaccine () [facility] Start: 10-13-2022 Influenza vaccination [facility] Start: 10-05-2022 Hepatitis C antibody, confirmatory test DILATED RETINAL EXAM [facility] Start: 08-24-2022 Adult depression screening assessment DEPRESSION SCREENING [facility] Start: 08-24-2022 ANNUAL PCP TEAM CHRONIC DISEASE VISIT ANNUAL PCP TEAM CHRONIC DISEASE VISIT [facility] Start: 08-24-2022 BP CONTROLLED (<130/80) BP CONTROLLED (<130/80) [facility] Start: 08-23-2022 End: 10-23-2022 25-hydroxyvitamin D3 [Mass/volume] in Serum or Plasma VITAMIN D 25 HYDROXY Lab Routine Vitamin D deficiency Expected: 08/23/2022, Expires: 10/23/2022 [facility] Work Phone: Comment on above: Expected: 08/23/2022, Expires: 3 Start: 08-23-2022 End: 10-23-2022 CBC panel - Blood by Automated count CBC Lab Routine Iron deficiency Expected: 08/23/2022, Expires: 10/23/2022 [facility] Work Phone: Comment on above: Expected: 08/23/2022, Expires: 3 Start: 08-23-2022 End: 10-23-2022 Cobalamin (Vitamin B12) [Mass/volume] in Serum or Plasma VITAMIN B12 BLOOD Lab Routine Other vitamin B12 deficiency anemia Expected: 08/23/2022, Expires: 10/23/2022 [facility] Work Phone: Comment on above: Expected: 08/23/2022, Expires: 3 Start: 08-23-2022 End: 10-23-2022 Comprehensive metabolic 2000 panel - Serum or Plasma COMP METABOLIC PANEL Lab Routine Controlled type 2 diabetes mellitus without complication, without long-term current use of insulin (HCC) Expected: 08/23/2022, Expires: 10/23/2022 [facility] Work Phone: Comment on above: Expected: 08/23/2022, Expires: 3 Start: 08-23-2022 End: 10-23-2022 Hemoglobin A1c in Blood HGB A1C Lab Routine Controlled type 2 diabetes mellitus without complication, without long-term current use of insulin (HCC) Expected: 08/23/2022, Expires: 10/23/2022 [facility] Work Phone: Comment on above: Expected: 08/23/2022, Expires: 3 Start: 08-23-2022 End: 10-23-2022 Iron and Iron binding capacity panel - Serum or Plasma IRON + TIBC Lab Routine Iron deficiency Expected: 08/23/2022, Expires: 10/23/2022 [facility] Work Phone: Comment on above: Expected: 08/23/2022, Expires: 3 Start: 08-23-2022 End: 10-23-2022 Thyrotropin [Units/volume] in Serum or Plasma TSH BLD Lab Routine Hypothyroidism, acquired Expected: 08/23/2022, Expires: 10/23/2022 [facility] Work Phone: Comment on above: Expected: 08/23/2022, Expires: Start: 08-14-2022 Hemoglobin A1c/Hemoglobin.total in Blood HBA1C [facility] Start: 08-11-2022 Influenza vaccination INFLUENZA (#1) [facility] Comment on above: Postponed from 10/13/2021 (Declined at t his time) Start: 06-15-2022 Hepatitis C antibody, confirmatory test DILATED RETINAL EXAM [facility] Start: 05-30-2022 ANNUAL PCP TEAM CHRONIC DISEASE VISIT ANNUAL PCP TEAM CHRONIC DISEASE VISIT [facility] Start: 05-30-2022 BP CONTROLLED (<130/80) BP CONTROLLED (<130/80) [facility] Start: 2022 Hepatitis B surface antibody level LDL CHOLESTEROL [facility] Start: 05-22-2022 RSV Vaccine (1 - 1-dose 75+ series) RSV Vaccine (1 - 1-dose 75+ series) [facility] Start: 05-21-2022 End: 07-21-2022 25-hydroxyvitamin D3 [Mass/volume] in Serum or Plasma VITAMIN D 25 HYDROXY Lab Routine Vitamin D deficiency Expected: 05/21/2022, Expires: 07/21/2022 [facility] Work Phone: Comment on above: Expected: 05/21/2022, Expires: 3 Start: 05-21-2022 End: 07-21-2022 CBC panel - Blood by Automated count CBC Lab Routine Controlled type 2 diabetes mellitus without complication, without long-term current use of insulin (HCC) Expected: 05/21/2022, Expires: 07/21/2022 [facility] Work Phone: Comment on above: Expected: 05/21/2022, Expires: 3 Start: 05-21-2022 End: 07-21-2022 Cobalamin (Vitamin B12) [Mass/volume] in Serum or Plasma VITAMIN B12 BLOOD Lab Routine Vitamin B12 deficiency Other vitamin B12 deficiency anemia Expected: 05/21/2022, Expires: 07/21/2022 [facility] Work Phone: Comment on above: Expected: 05/21/2022, Expires: 3 Start: 05-21-2022 End: 07-21-2022 Comprehensive metabolic 2000 panel - Serum or Plasma COMP METABOLIC PANEL Lab Routine Controlled type 2 diabetes mellitus without complication, without long-term current use of insulin (HCC) Expected: 05/21/2022, Expires: 07/21/2022 [facility] Work Phone: Comment on above: Expected: 05/21/2022, Expires: 3 Start: 05-21-2022 End: 07-21-2022 Ferritin [Mass/volume] in Serum or Plasma FERRITIN BLD Lab Routine Vitamin B12 deficiency Other vitamin B12 deficiency anemia Iron deficiency Malabsorption syndrome Expected: 05/21/2022, Expires: 07/21/2022 [facility] Work Phone: Comment on above: Expected: 05/21/2022, Expires: 3 Start: 05-21-2022 End: 07-21-2022 Hemoglobin A1c in Blood HGB A1C Lab Routine Controlled type 2 diabetes mellitus without complication, without long-term current use of insulin (HCC) Expected: 05/21/2022, Expires: 07/21/2022 [facility] Work Phone: Comment on above: Expected: 05/21/2022, Expires: 3 Start: 05-21-2022 End: 07-21-2022 Iron and Iron binding capacity panel - Serum or Plasma IRON + TIBC Lab Routine Vitamin B12 deficiency Other vitamin B12 deficiency anemia Iron deficiency Malabsorption syndrome Expected: 05/21/2022, Expires: 07/21/2022 [facility] Work Phone: Comment on above: Expected: 05/21/2022, Expires: 3 Start: 05-21-2022 End: 07-21-2022 Lipid 1996 panel - Serum or Plasma LIPID PANEL BASIC Lab Routine Hypertriglyceridemia Expected: 05/21/2022, Expires: 07/21/2022 [facility] Work Phone: Comment on above: Expected: 05/21/2022, Expires: 3 Start: 05-21-2022 End: 07-21-2022 Thyrotropin [Units/volume] in Serum or Plasma TSH BLD Lab Routine Hypothyroidism, acquired Expected: 05/21/2022, Expires: 07/21/2022 [facility] Work Phone: Comment on above: Expected: 05/21/2022, Expires: 3 Start: 05-21-2022 End: 07-21-2022 Thyroxine (T4) free [Mass/volume] in Serum or Plasma T4 FREE/FREE THYROX Lab Routine Hypothyroidism, acquired Expected: 05/21/2022, Expires: 07/21/2022 [facility] Work Phone: Comment on above: Expected: 05/21/2022, Expires: 3 Start: 05-20-2022 Mammography MAMMOGRAM [facility] Start: 05-08-2022 Hemoglobin A1c/Hemoglobin.total in Blood HBA1C [facility] Start: 02-22-2022 3 comp foot exam completed DIABETIC FOOT EXAM [facility] Start: 02-22-2022 ANNUAL PCP TEAM CHRONIC DISEASE VISIT ANNUAL PCP TEAM CHRONIC DISEASE VISIT [facility] Start: 02-22-2022 BP CONTROLLED (<130/80) BP CONTROLLED (<130/80) [facility] Start: 02-16-2022 Hemoglobin A1c/Hemoglobin.total in Blood HBA1C [facility] Start: 02-15-2022 End: 04-17-2022 CBC panel - Blood by Automated count CBC Lab Routine Iron deficiency Expected: 02/15/2022, Expires: 04/17/2022 [facility] Work Phone: Comment on above: Expected: 02/15/2022, Expires: 3 Start: 02-15-2022 End: 04-17-2022 Cobalamin (Vitamin B12) [Mass/volume] in Serum or Plasma VITAMIN B12 BLOOD Lab Routine Vitamin B12 deficiency Expected: 02/15/2022, Expires: 04/17/2022 [facility] Work Phone: Comment on above: Expected: 02/15/2022, Expires: Start: 02-15-2022 End: 04-17-2022 Comprehensive metabolic 2000 panel - Serum or Plasma COMP METABOLIC PANEL Lab Routine Hypothyroidism, acquired Other vitamin B12 deficiency anemia Iron deficiency Expected: 02/15/2022, Expires: 04/17/2022 [facility] Work Phone: Comment on above: Expected: 02/15/2022, Expires: 3 Start: 02-15-2022 End: 04-17-2022 Hemoglobin A1c in Blood HGB A1C Lab Routine Uncontrolled type 2 diabetes mellitus with hyperglycemia (HCC) Expected: 02/15/2022, Expires: 04/17/2022 [facility] Work Phone: Comment on above: Expected: 02/15/2022, Expires: 3 Start: 02-15-2022 Hepatitis B surface antibody level LDL CHOLESTEROL [facility] Start: 02-15-2022 End: 04-17-2022 Iron and Iron binding capacity panel - Serum or Plasma IRON + TIBC Lab Routine Iron deficiency Expected: 02/15/2022, Expires: 04/17/2022 [facility] Work Phone: Comment on above: Expected: 02/15/2022, Expires: 3 Start: 02-15-2022 End: 04-17-2022 Thyrotropin [Units/volume] in Serum or Plasma TSH BLD Lab Routine Hypothyroidism, acquired Expected: 02/15/2022, Expires: 04/17/2022 [facility] Work Phone: Comment on above: Expected: 02/15/2022, Expires: 3 Start: 02-15-2022 End: 04-17-2022 Thyroxine (T4) free [Mass/volume] in Serum or Plasma T4 FREE/FREE THYROX Lab Routine Hypothyroidism, acquired Expected: 02/15/2022, Expires: 04/17/2022 [facility] Work Phone: Comment on above: Expected: 02/15/2022, Expires: 3 Start: 11-22-2021 Hemoglobin A1c/Hemoglobin.total in Blood HBA1C [facility] Start: 10-13-2021 Influenza vaccination [facility] Start: 08-29-2021 End: 10-29-2021 Comprehensive metabolic 2000 panel - Serum or Plasma COMP METABOLIC PANEL Lab Routine Vitamin B12 deficiency Malabsorption syndrome Other iron deficiency anemia Expected: 08/29/2021, Expires: 10/29/2021 [facility] Work Phone: Comment on above: Expected: 08/29/2021, Expires: 2 Start: 08-29-2021 End: 10-29-2021 Hemoglobin A1c/Hemoglobin.total in Blood HGB A1C Lab Routine Controlled type 2 diabetes mellitus without complication, without long-term current use of insulin (HCC) Expected: 08/29/2021, Expires: 10/29/2021 [facility] Work Phone: Comment on above: Expected: 08/29/2021, Expires: 2 Start: 08-29-2021 End: 10-29-2021 IRON + TIBC IRON + TIBC Lab Routine Other iron deficiency anemia Expected: 08/29/2021, Expires: 10/29/2021 [facility] Work Phone: Comment on above: Expected: 08/29/2021, Expires: 2 Start: 08-29-2021 End: 10-29-2021 VITAMIN B12 BLOOD VITAMIN B12 BLOOD Lab Routine Vitamin B12 deficiency Malabsorption syndrome Other vitamin B12 deficiency anemia Fatigue, unspecified type Expected: 08/29/2021, Expires: 10/29/2021 [facility] Work Phone: Comment on above: Expected: 08/29/2021, Expires: 2 Start: 08-25-2021 Adult depression screening assessment DEPRESSION SCREENING [facility] Start: 08-15-2021 Hemoglobin A1c/Hemoglobin.total in Blood HBA1C [facility] Start: 07-01-2021 COVID-19 VACCINE (3 - Booster for Jonathan series) COVID-19 VACCINE (3 - Booster for Jonathan series) [facility] Start: 06-09-2021 Hepatitis C antibody, confirmatory test DILATED RETINAL EXAM [facility] Start: 05-14-2021 Mammography MAMMOGRAM [facility] Start: 04-28-2021 COVID-19 VACCINE (3 - Booster for Jonathan series) COVID-19 VACCINE (3 - Booster for Jonathan series) [facility] Start: 02-12-2021 ADVANCE DIRECTIVE DISCUSSION ADVANCE DIRECTIVE DISCUSSION [facility] Start: 10-20-2020 COVID-19 VACCINE (2 - Booster for Jonathan series) COVID-19 VACCINE (2 - Booster for Jonathan series) [facility] Start: 05-16-2020 Urine microalbumin profile [facility] Start: 04-16-2019 Hepatitis B screening URINE ALBUMIN:CREATININE RATIO [facility] Start: 12-25-2018 FECAL OCCULT BLOOD FECAL OCCULT BLOOD [facility] Start: 12-25-2018 Screening for malignant neoplasm of colon Fecal Occult Blood [facility] Start: 05-17-2015 Pneumococcal Vaccine: 50+ (2 of 2 - PCV) Pneumococcal Vaccine: 50+ (2 of 2 - PCV) [facility] Start: 05-17-2015 Pneumococcal Vaccine: 65+ (2 - PCV) Pneumococcal Vaccine: 65+ (2 - PCV) [facility] Start: 05-17-2015 Pneumococcal Vaccine: 65+ (2 of 2 - PCV) Pneumococcal Vaccine: 65+ (2 of 2 - PCV) [facility] Start: 05-17-2015 PNEUMOCOCCAL: 65+ (2 - PCV) PNEUMOCOCCAL: 65+ (2 - PCV) [facility] Start: 2007 Hepatitis B Vaccine (1 of 3 - Risk 3-dose series) Hepatitis B Vaccine (1 of 3 - Risk 3-dose series) [facility] Start: 2007 RSV Vaccine (1 - 1-dose 60+ series) RSV Vaccine (1 - 1-dose 60+ series) [facility] Start: 05-22-1997 SHINGRIX VACCINE (1 of 2) SHINGRIX VACCINE (1 of 2) [facility] Start: 05-22-1992 COLOGUARD (FIT-DNA) COLOGUARD (FIT-DNA) [facility] Start: 05-22-[address] COLONOGRAPHY [facility] Start: 05-22-1992 Screening for malignant neoplasm of colon [facility] Start: 05-22-1992 SIGMOIDOSCOPY SIGMOIDOSCOPY [facility] Anion gap measurement [facility] BUN/Creatinine ratio [facility] C reactive protein [Mass/volume] in Serum or Plasma [facility] C reactive protein [Mass/volume] in Serum or Plasma [facility] Calcium [Mass/volume ] in Serum or Plasma [facility] Carbon dioxide, tota l [Moles/volume] in Serum or Plasma [facility] Carcinoembryonic Ag [Mass/volume] in Serum or Plasma [facility] Carcinoembryonic Ag [Mass/volume] in Serum or Plasma [facility] Carcinoembryonic Ag [Mass/volume] in Serum or Plasma [facility] CBC W Auto Different ial panel - Blood [facility] CBC W Auto Different ial panel - Blood [facility] CBC W Auto Different ial panel - Blood [facility] CBC W Auto Different ial panel - Blood [facility] Chloride [Moles/volu me] in Serum or Plasma [facility] Cobalamin (Vitamin B 12) [Mass/volume] in Serum or Plasma [facility] Comprehensive metabo lic 1999 panel - Serum or Plasma [facility] Comprehensive metabo lic 1999 panel - Serum or Plasma [facility] Creatinine [Moles/volume] in Serum or Plasma [facility] End: 06-22-2025 DBT Breast - bilateral screening CAROLINE SCREENING W FLOR Radiology Routine Encounter for screening mammogram for malignant neoplasm of breast 1 Occurrences starting 2024 until 06/22/2025 [facility] Work Phone: Comment on above: 1 Occurrences starting 2024 until 06/22/2025 Erythrocyte mean corpuscular volume determination [facility] Erythrocyte sedimentation rate [facility] Erythrocyte sedimentation rate [facility] Ferritin [Mass/volum e] in Serum or Plasma [facility] Ferritin [Mass/volum e] in Serum or Plasma [facility] Glucose [Mass/volume ] in Serum or Plasma [facility] Hematocrit [Volume Fraction] of Blood [facility] Hemoglobin [Mass/vol ume] in Blood [facility] Iron and Iron bindin g capacity panel - Serum or Plasma [facility] Iron and Iron bindin g capacity panel - Serum or Plasma [facility] Lactate dehydrogenas e measurement [facility] Lactate dehydrogenas e measurement [facility] Lactate dehydrogenas e measurement [facility] Leukocytes [#/volume ] in Blood [facility] Magnesium [Mass/volu me] in Serum or Plasma [facility] End: 03-22-2023 CAROLINE SCREENING CAROLINE SCREENING Radiology Routine Encounter for screening mammogram for malignant neoplasm of breast 1 Occurrences starting 02/20/2022 until 03/22/2023 [facility] Work Phone: Comment on above: 1 Occurrences starting 02/20/2022 until 03/22/2023 End: 06-17-2022 CAROLINE SCREENING W FLOR CAROLINE SCREENING W FLOR Radiology Routine Encounter for screening mammogram for malignant neoplasm of breast 1 Occurrences starting 05/18/2021 until 06/17/2022 [facility] Work Phone: Comment on above: 1 Occurrences starting 05/18/2021 until 06/17/2022 Mean corpuscular hemoglobin concentration determination [facility] Mean corpuscular hemoglobin determination [facility] Measurement of renal function [facility] Neutrophil count [facility] Neutrophil percent differential count [facility] Patient referral [facility] Work Phone: Platelets [#/volume] in Blood [facility] Potassium [Moles/vol ume] in Serum or Plasma [facility] Procedure [facility] Red blood cell count [facility] Red cell distributio n width determination [facility] Removal impacted cer umen irrigation/lvg unilat AMBULATORY EAR LAVAGE/IRRIGATION Procedures Routine Bilateral impacted cerumen Ordered: 07/11/2023 [facility] Work Phone: Comment on above: Ordered: 07/11/2023 Reticulocyte count [facility] Serum inorganic phosphate measurement [facility] Sodium [Moles/volume ] in Serum or Plasma [facility] Urea nitrogen [Mass/volume] in Serum or Plasma [facility] End: 2025 US Lower extremity veins - bilateral US LEG VEIN DVT [facility] STAT Left leg swelling Right leg swelling 1 Occurrences starting 2024 until 2025 [facility] Comment on above: 1 Occurrences starting 2024 until 2025 [facility] Immunizations Immunization Date Immunization Notes Care Provider Fa shashi 08-25-2020 COVID-19 vaccine ([employer]) Jeff Simeon DO Work Phone: [facility] 01-21-2018 influenza virus vacc ine, unspecified formulation Mi Nurse Work Phone: [facility] 05-16-2014 pneumococcal polysaccharide vaccine, 23 valent Jeff Simeon DO Work Phone: [facility] 05-16-2010 tetanus toxoid, redu mervat diphtheria toxoid, and acellular pertussis vaccine, adsorbed Jeff Simeon DO Work Phone: [facility] Payers Date Payer Category Payer Medicare (Managed Care) [employer] [id number] 2024 Unknown [employer] BLUE CROS S AND BLUE SHIELD [employer] MEDICARE ADVANTAGE HMO [id number] 2024-Present [phone] [address] [place] [address] O [id number] 2023 Medicare [id number] 2023 Self-pay [id number] 2021 Medicare AETNA MEDICARE A ETNA MEDICARE O [id number] 2021-Present [phone] [address] [place] [address] [facility] [id number] 2021 Private Health Insurance [facility] [id number] 2013 Medicare [id number] Medicare [id number] Unknown [id number] Unknown [id number] 462 Unknown [id number] Unknown [id number] 462 Unknown [id number] 462 Unknown [id number] 462 Unknown [id number] 462 Unknown [id number] 462 Unknown [id number] 462 Unknown [id number] 462 Unknown [id number] 462 Unknown [id number] 462 Unknown [id number] 462 Social History Date Type Detail Facility Start: 05-17-2015 End: 10-16-2023 Tobacco smoking status NHIS Never smoked tobacco [facility] Work Phone: Start: 05-17-2015 End: 02-20-2022 Tobacco use and exposure Smokeless tobacco non-user [facility] Work Phone: Start: 02-22-2021 End: 02-14-2024 Alcohol intake Current non-drinker of alcohol (finding) [facility] Start: 1945 Sex Assigned At Not on file [facility] Start: 12-21-2020 End: 03-21-2023 Tobacco smoking status NHIS Unknown if ever smoked [facility] Start: 1945 Sex Assigned At Female [facility] Start: 07-26-2020 End: 11-15-2021 Exposure to SARS-CoV-2 (event) Not sure [facility] Work Phone: Start: 07-11-2022 End: 09-05-2022 History of Social function [facility] Work Phone: Start: 07-11-2022 End: 09-05-2022 Tobacco use panel [facility] Work Phone: Adult Depression Screening Assessment 0 [facility] Work Phone: Start: 05-13-2024 Sex Female (finding) Natalia garcia [facility] Procedure Code Equipment Code Equipment Original Text Equipment Identifier Dates [id number], [id number], [id number] Start: 04-21-2019 End: 09-15-2024 Comment on above: Type 2 diabetes, no insulin, well controlled, Use as instructed TEST BLOOD SUGARS TW ICE DAILY DM2, no insulin, AMANDA T BLOOD SUGARS TWICE DAILY Test blood sugar(s) twice daily. Dx: Type 2 DM - Controlled E11.9 Insulin: No TEST BLOOD SUGAR(S) TEST BLOOD SUGARS TWICE DAILY. DX: TYPE 2 DM - CONTROLLED E11.9 INSULIN: NO Use once daily as di rected E11.9 TEST BLOOD SUGAR(S) TEST BLOOD SUGARS TWICE DAILY. DX: TYPE 2 DM - CONTROLLED E11.9 INSULIN: NO Delecia Dx: Type 2 diabetes uncontrolled, no insulin. TEST BLOOD SUGARS TWICE DAILY Test blood sugar(s) 2 times daily. Dx: Type 2 DM - Controlled E11.9 Insulin: No Surgical staple loading unit, cutting ()[id number] FDA Start: 03-06-2023 Open-surgery manual linear cutting stapler, single-use ()[id number] FDA Start: 03-06-2023 Ligation clip, synthetic polymer, non-bioabsorbable ()[id number] FDA Start: 03-06-2023 Goals Date Patient Goal Desired Activity /State Functional Status Date Assessment Result Facility 03-11-2023 Functional status Ambulates [facility] Work Phone: 04-06-2022 Are you deaf, or do you have serious difficulty hearing No 04/06/2022 10:53 AM Wiley Pires RN No [facility] 04-06-2022 Are you blind, or do you have serious difficulty seeing, even when wearing glasses No 04/06/2022 10:53 AM Wiley Pires RN No [facility] 04-06-2022 Do you have serious difficulty walking or climbing stairs No 04/06/2022 10:53 AM Wiley Pires RN No [facility] 04-06-2022 Do you have difficul ty dressing or bathing No 04/06/2022 10:53 AM Wiley Pires RN No [facility] 04-06-2022 Because of a physica l, mental, or emotional condition, do you have difficulty doing errands alone such as visiting a physician's office or shopping No 04/06/2022 10:53 AM Wiley Pires RN No [facility] Mental Status Date Assessment Result Facility 03-27-2024 Cognitive function Awake;Alert;A ppropriate; Follows Commands [facility] Work Phone: 01-22-2024 Cognitive function Awake;Alert;Appropriat e [facility] Work Phone: 12-13-2023 Cognitive function Arousable To Voice/Nam e [facility] Work Phone: 03-11-2023 Cognitive function Voice/Name [facility] Work Phone: 04-06-2022 Because of a physica l, mental, or emotional condition, do you have serious difficulty concentrating, remembering, or making decisions No 04/06/2022 10:53 AM Wiley Pires RN No [facility] Clinical Notes 02-26-2018 to 12-23-2024 Note Date & Type Note Facility 12-23-2024 Note HNO ID: [id number] Author: ?, ?, ? Service: ? Author Type: Licensed Nurse Type: Progress Notes Filed: 12/23/2024 08:05 Note Text: Patient presents for B-12 injection. Denies any problems at this time. Patient instructed on any SE of medication, verbalized understanding and agreed to proceed with treatment. Tolerated injection well. Lani Edmond LPN [facility] 12-21-2024 Note HNO ID: [id number] Author: FARRUKH DYE, ? Service: ? Author Type: Physician Type: Progress Notes Filed: 12/21/2024 09:34 Note Text: Subjective The patient is a 79-year-old female with DM presenting for a diabetic foot exam. The patient reports right ankle stiffness and pain that worsens with walking. She experiences difficulty feeling the ground beneath her feet, which affects her balance and increases her risk of falling, particularly when walking her dog. She does not take any medication for the pain. She denies burning, tingling, or numbness in her feet. She reports that the ankle pain does not significantly limit her activities, but she experiences stiffness when sitting or getting out of bed in the morning. She has been diabetic for approximately 15 years. She has difficulty trimming her toenails due to arthritis in her thumbs and first two fingers of both hands, which makes using clippers painful. She has been getting pedicures every two months. She denies pain from her toenails unless they start to press against the inside of her shoes. She has a history of a wart on her right foot and a surgical procedure on the side of her left foot performed by a investigation division captain. She prefers not to wear shoes indoors and often goes barefoot at home, but she does not go barefoot outside. She has a pair of moccasins with a harder sole that she wears indoors. Musculoskeletal: (+ right ankle pain, (+ right ankle stiffness, (+ bilateral hand pain) Skin: (- toenail pain) Neurological: (+ decreased plantar sensation, (+ balance instability, (- burning feet, (- tingling feet, (- numbness feet) Objective There were no vitals taken for this visit. - Cardiovascular: Dorsalis pedis and posterior tibial pulses palpable bilaterally; capillary refill time <5 seconds. - Skin: Skin temperature warm to cool from proximal to distal; diminished hair growth on both feet; slight callusing on plantar aspect of right hallux and left fifth metatarsal; no ulcerations noted; toenails 1-5 bilaterally slightly elongated. - Neurological: Protective sensation intact bilaterally; decreased vibratory sensation bilaterally. - Musculoskeletal: - Right Ankle: Manual muscle testing 5/5 for dorsiflexion, plantarflexion, inversion, and eversion. Labs: - (November) Hemoglobin A1c: 6.4% Assessment AND Plan # Diabetic polyneuropathy associated with type 2 diabetes mellitus (HCC) (E11.42) Diabetic foot exam reveals diminished vibratory sensation, decreased hair growth, and slight callusing, but protective sensation and vascular status are intact. HbA1c was 6.4% in November, indicating good glycemic control. - Educated patient on importance of wearing supportive footwear, avoiding barefoot walking, and daily foot inspection to prevent injury. - Advised use of memory foam shoes and regular application of lotion to feet. - Discussed criteria for insurance coverage of nail care; provided courtesy nail trimming today. Recording using [employer] software for draft documentation of the visit was discussed with the patient/authorized farm loan representative; all questions welcomed and answered. Patient/authorized farm loan representative agreed to proceed Farrukh Dye DPM [facility] 12-19-2024 Note HNO ID: [id number] Author: NGUYEN SMITH, ROBERT Service: ? Author Type: Registered Nurse Type: Progress Notes Filed: 12/21/2024 09:34 Note Text: Patient presents with: Left Foot - New, Diabetic Foot Care Right Foot - New, Diabetic Foot Care Patient presents as new patient for diabetic foot/nail care. States that nails are thick and discolored and she has a hard time trimming them. Last A1c 6.4 on 11/14/24. Has not seen Podiatry for this before. SONIDO 03/29/24 [facility] 11-21-2024 Note HNO ID: [id number] Author: JEFF SIMEON, Service: ? Author Type: Physician Type: Progress Notes Filed: 11/23/2024 18:49 Note Text: Patient presents with: 6 Month Exam HPI: Nguyenjose Queen is a 79 year old female who presents to the office today for review of health conditions. Concerns today: Hypothyroidism, taking levothyroxine, no concerns TSH Date Value Ref Range Status 11/14/2024 0.133 (L) 0.270 - 4.200 mIU/L Final Free T4 Date Value Ref Range Status 11/14/2024 1.4 0.9 - 1.7 ng/dL Final Iron deficiency, was given 7 treatments, feels this is helping her fatigue. Her hemoglobin when last checked 2-3 weeks ago was at 12. + thickening of toenails and discoloration, struggling to keep toenails trimmed and feet taken care of with her diabetes, hasn't seen [employer] recently. Vitamin b12 deficiency, last level in the 400s. Hasn't had labs rechecked. But does feel less fatigue than previously Will have follow up next with Dr. Singh for Oncologist on 10/23 and labs prior Next follow up in the next few months with [facility] Dr. Crystal as well. She is eating better and less weakness symptoms. Still has a very restricted diet- no raw vegetables, and not able to eat most cooked vegetables as well. Ms. Queen has past history of diabetes. [...] HgA1C was Hemoglobin A1C (%) Date Value 11/14/2024 6.4 02/04/2024 5.5 02/15/2021 7.3 08/17/2020 7.0 ) Last Ophthalmology exam was within the past 12 months Ms. Queen reports history of hyperlipidemia. Current therapy includes diet and exercise. Not able to tolerate statin therapy, Her most recent lipid panels are reviewed. Cholesterol, Total (mg/dL) Date Value 11/14/2024 148 02/15/2021 189 HDL Cholesterol (mg/dL) Date Value 11/14/2024 35 02/15/2021 34 LDL Cholesterol, Calculated (mg/dL) Date Value 11/14/2024 82 02/15/2021 122 Triglyceride (mg/dL) Date Value 11/14/2024 183 02/15/2021 165 Ms. Queen indicates a history of hypertension and states that she is feeling well and denies any symptoms referable to elevated blood pressure. Specifically denies headache, chest pain, palpitations, dyspnea, and peripheral edema. Patient denies any side effects of her medication(s) and is compliant with their regimen. Last 3 Encounter BP Readings: Date: BP: 11/21/2024 122/70 2024 124/60 02/14/2024 118/72 She watches her diet for sodium, low fat and low cholesterol some of the time. She does not check BP's generally. Nguyen gets minimal exercise. PAST MEDICAL HISTORY Diagnosis Date Advance care planning 08/24/2021 MARLEN Diabetes mellitus, type 2 (HCC) Environmental allergies Hyperlipidemia Hypothyroidism, unspecified Liver failure (HCC) 2004 unsure of cause Migraine headache onset age 7 PAST SURGICAL HISTORY Procedure Laterality Date BREAST BIOPSY NEEDLE LEFT 12/31/2014 x 2, Dr. Ronquillo COLONOSCOPY FLX DX W/COLLJ SPEC WHEN PFRMD 08/25/2003 adenomatous polyp and diverticulosis. [facility] COLONOSCOPY FLX DX W/COLLJ SPEC WHEN PFRMD 09/28/2006 No polyps found. 5 yr recall. [facility] COLONOSCOPY FLX DX W/COLLJ SPEC WHEN PFRMD 02/26/2018 Colonoscopy ESOPHAGOGASTRODUODENOSCOPY TRANSORAL DIAGNOSTIC 08/31/2003 Unremarkable, negative biopsies. [facility] ESOPHAGOGASTRODUODENOSCOPY TRANSORAL DIAGNOSTIC 02/26/2018 EGD LAPAROSCOPIC CHOLECYSTECTOMY 04/05/2022 REMV CATARACT EXTRACAP,INSERT LENS Bilateral TONSILLECTOMY HX SOCIAL HISTORY[1] FAMILY HISTORY Adopted: Yes Allergies: ALLERGIES Allergen Reactions Benadryl [Diphenhyd* Swelling Penicillins Shortness of Breath Cejsgmv-Xnn-Wwa Red* Contraindication-Medical Surgical History of liver failure Current Meds: cholestyramine light 4 gram powder Take 4 g by mouth two times a day with meals. Mix with 60-180 mL of water or other noncarbonated liquid, highly fluid soup, applesauce or crushed pineapple before ingesting lancets (ONE TOUCH DELICA) 33 gauge Test blood sugar(s) twice daily. Dx: Type 2 DM - Controlled E11.9 Insulin: No levothyroxine (LEVOXYL) 150 mcg tablet Take 1 tablet 3 days a week and take 1.5 tablets 4 days a week. Take on empty stomach. For Thyroid. metFORMIN (GLUCOPHAGE) 500 mg tablet Take 1 tablet by mouth two times a day with meals. blood sugar diagnostic (ONETOUCH ULTRA TEST) test strip Use with blood glucose test three times a day. Insulin Dep? Yes losartan (COZAAR) 50 mg tablet Take 1 tablet by mouth (more content not included)... [facility] 11-04-2024 Progress note [facility] 10-23-2024 Evaluation note Diagnosis Onset Date Resolution Colon cancer, ascending chronic October 23, 2024 1:37pm Elevated CEA chronic October 232024 1:37pm Anemia resolved October 1:37pm Colon cancer, ascending chronic November 04, 2024 10:48am NAFLD (nonalcoholic fatty liver disease) chronic October 142024 10:48am Ulcerative colitis chronic 2024 10:48am [facility] Work Phone: [phone]) 535-375009-11-2025 Progress [facility] [address] [place] [address] OFFICE VISIT Date of Service: 10/23/24 1405 MR#: [id number] Acct: [id number] Name: NGUYEN QUEEN Rep #: [id number] : 1945 From: Maco Singh MD Age/Sex: 79/F Location: [facility] [place] Status: Signed HPI Subjective Date of Service 10/23/24 Chief Complaint F/u for anemia. History of Present Illness 79-year-old woman presented with right lower quadrant abdominal pain to [facility]. CTof the abdomen and pelvis on 03/05/2023 showed retrocecal abscess concerning for possible neoplastic perforation or diverticulitis, no evidence of metastatic disease. She underwent laparotomy with right hemicolectomy, excision of abscesson 03/06/23. She was found to have adenocarcinoma in the ascending colon with abscessformation into the pericolonic adipose tissue. MSI negative. Peritoneal fluid for cytology was negative for malignant cells. She was diagnosed with Colon cancer Stage IIA(pT3 pN0 M0) LN 20 negative. CEA on 03/06/23was 5. She elected observation. Experienced abd pain September 2023. CEA elevated,19.9 on09/24/23. CT a/p with contrast performed on 10/10/[address] chest on 12/03/2023showed R lower lobe nodule which is old. ct DNA done on 01/01/2024 was 0. She got Iron infusion with Ferrlecit from 12/13/2023 to 01/03/2024. She was found to have Iron deficiency anemia again with colitis, was given IV iron-Venofer from 03/06/2024 to 03/27/2024, with normalization of Iron profile. She is on observation and comes for follow up. Feels well. [facility] Medical History Colon cancer Bilateral lower extremity edema Elevated CEA GI bleed Colitis Vision loss of right eye Vision loss of left eye Anemia Hypothyroidism Chronic pain Rheumatoid arthritis GERD (gastroesophageal reflux disease) Non-smoker Irregular heart beat Hypertension Migraines Seizures Diabetes mellitus Surgical History History of appendectomy Status post right hemicolectomy Hx of cholecystectomy Social History Smoking Status: Never smoker alcohol intake: never Intake Vital Signs 04/17/24 14:17 04/29/24 13:13 10/23/24 14:05 Height 5 ft 3 in 5 ft 3 in 5 ft 3 in Weight: 78.727 kg BMI 30.7 BP 111/73 Blood Pressure Location Lt brachial Position Sitting Respiration 18 Pulse 75 Pulse Source Monitor Temp 98 F Temperature Source Temporal Artery Pulse Oximetry (%) 96 Oxygen Delivery Method room air Intake Accompanied by: Self Is patient in pain?: No Allergies Corticosteroids (Glucocorticoids) (steroids) Allergy (Severe, Verified 10/23/24 14:09) Shortness of breath acetaminophen (From Tylenol) Allergy (Intermediate, Verified 10/23/24 14:09) Shortness of breath aspirin Allergy (Intermediate, Verified 10/23/24 14:09) Shortness of breath diphenhydramine (From Benadryl) Allergy (Verified 10/23/24 14:09) PT UNSURE OF REACTION Penicillins Allergy (Verified 10/23/24 14:09) PT UNSURE OF REACTION Beef Containing Products Adverse Reaction (Verified 10/23/24 14:09) Other [place]field And Derivatives Adverse Reaction (Verified 10/23/24 14:09) Other Food Allergies: Uncoded Adverse Reaction (Verified 10/23/24 14:09) Vomiting Medications ?Medication ?Instructions ?Recorded ?Confirmed ?Type glimepiride 2 mg tablet 2 mg PO DAILY diabetes 03/0510/23/24 History levothyroxine 150 mcg tablet 150 mcg PO SUMOTU thyroid 03/05/23 10/23/24 History losartan 50 mg tablet 50 mg PO DAILY blood pressur e 03/05/23 10/23/24 History metformin 500 mg tablet 500 mg PO BID diabetes 03/0510/23/24 History levothyroxine 150 mcg capsule 225 mcg PO WETHFRSA thyr oid 12/13/23 10/23/24 History ferrous sulfate 325 mg (65 mg 325 mg PO .COMPLEX 05/0610/23/24 History iron) tablet (FeroSul) Have you fallen in the past year?: Yes Central Venous Access Central Venous Access: No Laboratory Tests 03/06/23 03/21/23 09/24/23 04:17 11:48 07:45 WBC Hgb Hct Plt Count Absolute Neuts (auto) Absolute Lymphs (auto) Sodium Potassium Chloride Carbon Dioxide Anion Gap BUN Creatinine Glucose Calcium Phosphorus Magnesium Iron TIBC Iron Saturation Unsaturated IBC Ferritin Total Bilirubin AST ALT Alkaline Phosphatase Lactate Dehydrogenase Total Protein C-React Prot Ext Range Albumin Globulin Albumin/Globulin Ratio Carcinoembryonic Ag 5.0 H 3.9 19.9 H Vitamin B12 Folate 12/11/23 01/24/24 04/17/24 12:37 13:27 13:15 WBC 5.6 6.0 5.3 Hgb 8.9 L 10.7 L 12.5 Hct 29.7 L 35.9 L 41.3 Plt Count 548 H 469 H 380 Absolute Neuts (auto) 3.2 Absolute Lymphs (auto) Sodium 141 Potassium 3.9 Chloride 107 Carbon Dioxide 23.2 Anion Gap 11 BUN 18 Creatinine 0.71 Glucose 87 Calcium 9.3 Phosphorus 3.7 Magnesium 1.7 Iron 29 L 54 TIBC 246 L 285 Iron Saturation 11.8 L 19.0 Unsaturated IBC 231 Ferritin 62 111 Total Bilirubin 0.25 AST 15 ALT 18 Alkaline Phosphatase 107 H Lactate Dehydrogenase 122 Total Protein 6.9 C-React Prot Ext Range Albumin 3.9 Globulin 3.0 Albumin/Globulin Ratio 1.3 Carcinoembryonic Ag Vitamin B12 362 Folate 12.00 10/16/24 08:06 WBC 6.5 Hgb 11.2 L Hct 36.4 L Plt Count 339 Absolute Neuts (auto) 4.2 Absolute Lymphs (auto) 1.51 Sodium 141 Potassium 4.4 Chloride 107 Carbon Dioxide 21.7 Anion Gap 12 BUN 16 Creatinine 0.61 L Glucose Calcium Phosphorus Magnesium Iron 188 H TIBC Iron Saturation 60.0 H Unsaturated IBC Ferritin 28 Total Bilirubin 0.25 AST 14 ALT 11 Alkaline Phosphatase 90 Lactate Dehydrogenase 112 Total Protein 6.3 C-React Prot Ext Range < 3.00 Albumin 3.7 Globulin 2.6 Albumin/Globulin Ratio Carcinoembryonic Ag 4.9 H Vitamin B12 302 Folate Exam Physical Exam Const alert, oriented x3 and no apparent distress HEENT normocephalic, external ears normal and external nose normal Eyes conjunctivae normal and no scleral icterus Neck supple Extremity no clubbing, cyanosis or edema Neuro oriented x3, CN's II-XII intact bilaterally and moves all extremities Coding Level of Care Code Off vis,est,level 4 Exam Problem Focused Diagnoses Colon cancer, ascending C18.2 Elevated CEA R97.0 Iron deficiency anemia, unspecified iron deficiency anemia type D50.9 Anemia type: iron deficiency Iron deficiency anemia type: unspecified iron deficiency Assessment and Plan Assessment and Plan (1) Colon cancer, ascending: Status: Chronic Comment: S/P R hemicolectomy. Increased CEA 19 on 09/24/2023. CT a/p on 10/10/[address] chest on 12/03/2023 showed R lung nodule which is old. ctDNA on 11/19/2023 was 0. CEA is decreasing, 4.9 on 10/16/2024. No evidence of disease clinically. Plan: To continue observation. (2) Elevated CEA: Status: Chronic Comment: CEA is decreasing. Plan: To continue observation. (3) Anemia: Status: Resolved Qualifiers: Anemia type: iron deficiency Iron deficiency anemia type: unspecified iron deficiency Qualified Code(s): D50.9 - Iron deficiency anemia, unspecified Comment: Hgb and Iron profile are normal today. Plan: To continue Oral 1-2 tabs a week.. Clinical Quality Measures Falls Risk Screening/Assistive Devices Have you fallen in the past year?: Yes 10/23/24 1435 D> Date _ Maco Singh MD Cosigner Signature: Date (if applicable) CC: Dr. Jeff Simeon, DO ~ [facility]09-11-2025 Progress note Author Maco Singh [facility] Note Date/Time October 23, 2024 2:35pm [facility] [address] [address] OFFICE VISIT Date of Service: 10/23/24 1405 MR#: [id number] Acct: [id number] Name: BRETNGUYEN Rep #: [id number] : 1945 From: Maco Singh MD Age/Sex: 79/F Location: [facility] [place] Status: Signed HPI Subjective Date of Service 10/23/24 Chief Complaint F/u for anemia. History of Present Illness 79-year-old woman presented with right lower quadrant abdominal pain to [facility]. CTof the abdomen and pelvis on 03/05/2023 showed retrocecal abscess concerning for possible neoplastic perforation or diverticulitis, no evidence of metastatic disease. She underwent laparotomy with right hemicolectomy, excision of abscesson 03/06/23. She was found to have adenocarcinoma in the ascending colon with abscess formation into the pericolonic adipose tissue. MSI negative. Peritoneal fluid for cytology was negative for malignant cells. She was diagnosed with Colon cancer Stage IIA(pT3 pN0 M0) LN 20 negative. CEA on 03/06/23was 5. She elected observation. Experienced abd pain September 2023. CEA elevated,19.9 on 09/24/23. CT a/p with contrast performed on 10/10/[address] chest on 12/03/2023 showed R lower lobe nodule which is old. ct DNA done on 01/01/2024 was 0. She got Iron infusion with Ferrlecit from 12/13/2023 to 01/03/2024. She was found to have Iron deficiency anemia again with colitis, was given IV iron-Venofer from 03/06/2024 to 03/27/2024, with normalization of Iron profile. She is on observation and comes for follow up. Feels well. [facility] Medical History Colon cancer Bilateral lower extremity edema Elevated CEA GI bleed Colitis Vision loss of right eye Vision loss of left eye Anemia Hypothyroidism Chronic pain Rheumatoid arthritis GERD (gastroesophageal reflux disease) Non-smoker Irregular heart beat Hypertension Migraines Seizures Diabetes mellitus Surgical History History of appendectomy Status post right hemicolectomy Hx of cholecystectomy Social History Smoking Status: Never smoker alcohol intake: never Intake Vital Signs 04/17/24 14:17 04/29/24 13:13 10/23/24 14:05 Height 5 ft 3 in 5 ft 3 in 5 ft 3 in Weight: 78.727 kg BMI 30.7 BP 111/73 Blood Pressure Location Lt brachial Position Sitting Respiration 18 Pulse 75 Pulse Source Monitor Temp 98 F Temperature Source Temporal Artery Pulse Oximetry (%) 96 Oxygen Delivery Method room air Intake Accompanied by: Self Is patient in pain?: No Allergies Corticosteroids (Glucocorticoids) (steroids) Allergy (Severe, Verified 10/23/24 14:09) Shortness of breath acetaminophen (From Tylenol) Allergy (Intermediate, Verified 10/23/24 14:09) Shortness of breath aspirin Allergy (Intermediate, Verified 10/23/24 14:09) Shortness of breath diphenhydramine (From Benadryl) Allergy (Verified 10/23/24 14:09) PT UNSURE OF REACTION Penicillins Allergy (Verified 10/23/24 14:09) PT UNSURE OF REACTION Beef Containing Products Adverse Reaction (Verified 10/23/24 14:09) Other [place]field And Derivatives Adverse Reaction (Verified 10/23/24 14:09) Other Food Allergies: Uncoded Adverse Reaction (Verified 10/23/24 14:09) Vomiting Medications ?Medication ?Instructions ?Recorded ?Confirmed ?Type glimepiride 2 mg tablet 2 mg PO DAILY diabetes 03/0510/23/24 History levothyroxine 150 mcg tablet 150 mcg PO SUMOTU thyroid 03/05/23 10/23/24 History losartan 50 mg tablet 50 mg PO DAILY blood pressur e 03/05/23 10/23/24 History metformin 500 mg tablet 500 mg PO BID diabetes 03/0510/23/24 History levothyroxine 150 mcg capsule 225 mcg PO WETHFRSA thyr oid 12/13/23 10/23/24 History ferrous sulfate 325 mg (65 mg 325 mg PO .COMPLEX 05/0610/23/24 History iron) tablet (FeroSul) Have you fallen in the past year?: Yes Central Venous Access Central Venous Access: No Laboratory Tests 03/06/23 03/21/23 09/24/23 04:17 11:48 07:45 WBC Hgb Hct Plt Count Absolute Neuts (auto) Absolute Lymphs (auto) Sodium Potassium Chloride Carbon Dioxide Anion Gap BUN Creatinine Glucose Calcium Phosphorus Magnesium Iron TIBC Iron Saturation Unsaturated IBC Ferritin Total Bilirubin AST ALT Alkaline Phosphatase Lactate Dehydrogenase Total Protein C-React Prot Ext Range Albumin Globulin Albumin/Globulin Ratio Carcinoembryonic Ag 5.0 H 3.9 19.9 H Vitamin B12 Folate 12/11/23 01/24/24 04/17/24 12:37 13:27 13:15 WBC 5.6 6.0 5.3 Hgb 8.9 L 10.7 L 12.5 Hct 29.7 L 35.9 L 41.3 Plt Count 548 H 469 H 380 Absolute Neuts (auto) 3.2 Absolute Lymphs (auto) Sodium 141 Potassium 3.9 Chloride 107 Carbon Dioxide 23.2 Anion Gap 11 BUN 18 Creatinine 0.71 Glucose 87 Calcium 9.3 Phosphorus 3.7 Magnesium 1.7 Iron 29 L 54 TIBC 246 L 285 Iron Saturation 11.8 L 19.0 Unsaturated IBC 231 Ferritin 62 111 Total Bilirubin 0.25 AST 15 ALT 18 Alkaline Phosphatase 107 H Lactate Dehydrogenase 122 Total Protein 6.9 C-React Prot Ext Range Albumin 3.9 Globulin 3.0 Albumin/Globulin Ratio 1.3 Carcinoembryonic Ag Vitamin B12 362 Folate 12.00 10/16/24 08:06 WBC 6.5 Hgb 11.2 L Hct 36.4 L Plt Count 339 Absolute Neuts (auto) 4.2 Absolute Lymphs (auto) 1.51 Sodium 141 Potassium 4.4 Chloride 107 Carbon Dioxide 21.7 Anion Gap 12 BUN 16 Creatinine 0.61 L Glucose Calcium Phosphorus Magnesium Iron 188 H TIBC Iron Saturation 60.0 H Unsaturated IBC Ferritin 28 Total Bilirubin 0.25 AST 14 ALT 11 Alkaline Phosphatase 90 Lactate Dehydrogenase 112 Total Protein 6.3 C-React Prot Ext Range < 3.00 Albumin 3.7 Globulin 2.6 Albumin/Globulin Ratio Carcinoembryonic Ag 4.9 H Vitamin B12 302 Folate Exam Physical Exam Const alert, oriented x3 and no apparent distress HEENT normocephalic, external ears normal and external nose normal Eyes conjunctivae normal and no scleral icterus Neck supple Extremity no clubbing, cyanosis or edema Neuro oriented x3, CN's II-XII intact bilaterally and moves all extremities Coding Level of Care Code Off vis,est,level 4 Exam Problem Focused Diagnoses Colon cancer, ascending C18.2 Elevated CEA R97.0 Iron deficiency anemia, unspecified iron deficiency anemia type D50.9 Anemia type: iron deficiency Iron deficiency anemia type: unspecified iron deficiency Assessment and Plan Assessment and Plan (1) Colon cancer, ascending: Status: Chronic Comment: S/P R hemicolectomy. Increased CEA 19 on 09/24/2023. CT a/p on 10/10/[address] chest on 12/03/2023 showed R lung nodule which is old. ctDNA on 11/19/2023 was 0. CEA is decreasing, 4.9 on 10/16/2024. No evidence of disease clinically. Plan: To continue observation. (2) Elevated CEA: Status: Chronic Comment: CEA is decreasing. Plan: To continue observation. (3) Anemia: Status: Resolved Qualifiers: Anemia type: iron deficiency Iron deficiency anemia type: unspecified iron deficiency Qualified Code(s): D50.9 - Iron deficiency anemia, unspecified Comment: Hgb and Iron profile are normal today. Plan: To continue Oral 1-2 tabs a week.. Clinical Quality Measures Falls Risk Screening/Assistive Devices Have you fallen in the past year?: Yes 10/23/24 6596 <Electronically signed by Maco Martinez> Date _ Maco Hernandez Signature: Date (if applicable) CC: Dr. Jeff Simeon, DO ~ [facility] Work Phone: [phone]) [phone] Telephone encounter Note* Telephone Encounter - Hank Ruvalcaba RN - 09/15/2024 9:49 AM EDT The patient has been identified by name and date of : Yes Caregiver verified no other encounters exist for this prescription request: Yes Caregiver confirmed with patient/requestor that no other refills are due, in the near future, with this provider at this time: Yes The last office visit in the department: 2024 Does the patient have a future office visit with this provider/department: Yes 11/21/2024 Requested Prescriptions Pending Prescriptions Disp Refills blood sugar diagnostic (ONETOUCH ULTRA TEST) test strip 100 each 3 Sig: Use with blood glucose test three times a day. Insulin Dep? Yes Hank Ruvalcaba RN September 15, 2024 9:50 AM [facility]08-04-2025 Miscellaneous Notes* Telephone Encounter - Hank Ruvalcaba RN - 09/15/2024 9:49 AM EDT The patient has been identified by name and date of : Yes Caregiver verified no other encounters exist for this prescription request: Yes Caregiver confirmed with patient/requestor that no other refills are due, in the near future, with this provider at this time: Yes The last office visit in the department: 2024 Does the patient have a future office visit with this provider/department: Yes 11/21/2024 Requested Prescriptions Pending Prescriptions Disp Refills blood sugar diagnostic (ONETOUCH ULTRA TEST) test strip 100 each 3 Sig: Use with blood glucose test three times a day. Insulin Dep? Yes Hank Ruvalcaba RN September 15, 2024 9:50 AM [facility] in [facility] encounter[facility]-2025 Telephone encounter Note * Telephone Encounter - Astrid Larios RN - 07/11/2024 10:32 AM EDT The patient has been identified by name and date of : Yes Caregiver verified no other encounters exist for this prescription request: Yes Caregiver confirmed with patient/requestor that no other refills are due, in the near future, with this provider at this time: Yes The last office visit in the department: 2024 Does the patient have a future office visit with this provider/department: Yes 11/21/2024 Requested Prescriptions Pending Prescriptions Disp Refills losartan (COZAAR) 50 mg tablet 90 tablet 3 Sig: Take 1 tablet by mouth once daily. blood sugar diagnostic (BLOOD GLUCOSE TEST) test strip 60 strip 11 Sig: Test blood sugar(s) 2 times daily. Dx: Type 2 DM - Controlled E11.9 Insulin: No Astrid Larios RN [facility]05-30-2025 Miscellaneous Notes* Telephone Encounter - Astrid Larios RN - 07/11/2024 10:32 AM EDT The patient has been identified by name and date of : Yes Caregiver verified no other encounters exist for this prescription request: Yes Caregiver confirmed with patient/requestor that no other refills are due, in the near future, with this provider at this time: Yes The last office visit in the department: 2024 Does the patient have a future office visit with this provider/department: Yes 11/21/2024 Requested Prescriptions Pending Prescriptions Disp Refills losartan (COZAAR) 50 mg tablet 90 tablet 3 Sig: Take 1 tablet by mouth once daily. blood sugar diagnostic (BLOOD GLUCOSE TEST) test strip 60 strip 11 Sig: Test blood sugar(s) 2 times daily. Dx: Type 2 DM - Controlled E11.9 Insulin: No Astrid Larios RN documented in this encounterMount [facility]04-17-2025 Telephone encounter Note * Telephone Encounter - Hank Ruvalcaba RN - 05/29/2024 2:35 PM EDT Pt returned call and given provider's message below with verbalized understanding. Pt states she cannot take any vitamin pills b/c she is allergic to the ingredients in vitamins. Reports she is drinking as much milk and OJ as she can. Pt states she prefers to get the B12 injections every 3-[address] order[address] Asking staff to call her to schedule B12 injections with Lani. [facility]04-17-2025 Miscellaneous Notes* Telephone Encounter - Hank Ruvalcaba RN - 05/29/2024 2:35 PM EDT Pt returned call and given provider's message below with verbalized understanding. Pt states she cannot take any vitamin pills b/c she is allergic to the ingredients in vitamins. Reports she is drinking as much milk and OJ as she can. Pt states she prefers to get the B12 injections every 3-[address] order[address] Asking staff to call her to schedule B12 injections with Lani. * Telephone Encounter - Clari Escudero RN - 05/29/2024 12:21 PM EDT TC patient, left message for patient to call back and speak with a triage nurse regarding results and provider instructions. Clari Escudero RN * Telephone Encounter - Jeff Simeon DO - 05/28/2024 9:42 PM EDT Please let her know that her thyroid labs are stable Her vitamin D levels are very low at 17. Which is adding to her fatigue, please have her increase vitamin D supplement or food based sources as able Also her vitamin B12 are low normal again. Either needs to increase her vitamin B12 supplement by extra 500-1000 mcg a day or start vitamin B12 shots again every 3-4 weeks Jeff Simeon DO documented in this encounterMount [facility]04-17-[facility]25 Telephone encounter Note * Telephone Encounter - Clari Escudero RN - 05/29/2024 12:21 PM EDT TC patient, left message for patient to call back and speak with a triage nurse regarding results and provider instructions. Clari Escudero RN [facility]04-16-[facility]25 Telephone encounter Note* Telephone Encounter - Jeff Simeon DO - 05/28/2024 9:42 PM EDT Please let her know that her thyroid labs are stable Her vitamin D levels are very low at 17. Which is adding to her fatigue, please have her increase vitamin D supplement or food based sources as able Also her vitamin B12 are low normal again. Either needs to increase her vitamin B12 supplement by extra 500-1000 mcg a day or start vitamin B12 shots again every 3-4 weeks Jeff Simeon DO [facility]04-11-2025 Telephone encounter Note* Telephone Encounter - Barbara Amin MA - 2024 3:51 PM EDT Pt notified. Barbara Amin MA [facility]04-11-2025 Miscellaneous Notes* Telephone Encounter - Barbara Amin MA - 2024 3:51 PM EDT Pt notified. Barbara Amin MA * Telephone Encounter - Karson Woodward APRN.CNP - 2024 2:46 PM EDT Please let her know that the ultrasounds of her legs did not show any clots. Karson Woodward APRN.CNP documented in this encounterMount [facility]el [facility] System04-11-2025 Telephone encounter Note * Telephone Encounter - Karson Woodward APRN.CNP - 2024 2:46 PM EDT Please let her know that the ultrasounds of her legs did not show any clots. Karson Woodward APRN.CNP [facility]04-11-2025 NoteHNO ID: [id number] Author: RUTH ANN MAURO RDMS Service: ? Author Type: Manager Professional Development Type: Progress Notes Filed: 05/26/2024 07:26 Note Text: Radiology Service Progress Note PATIENT NAME: Nguyen Queen DATE OF SERVICE: May 26, 2024 TIME: 7:25 AM PATIENT IDENTITY VERIFICATION COMPLETED USING TWO (2) IDENTIFIERS: Name and Date of confirmed by patient verbally. FALL SCREENING: Has the patient had 2 falls in the last year or 1 fall with injury or currently using an Ambulatory Assistive Device (Walker, Cane, Wheelchair, Crutches, etc.)? No PATIENT GENDER DATA: Assigned female at . status: : No status: NO. PATIENT RELEVANT IMPLANT DATA REVIEWED: Not Applicable PATIENT PRESENTS WITH AN IMPLANTABLE OR ATTACHED SPEECH THERAPIST: No RADIOLOGY DEPARTMENT: Ultrasound PERIPHERAL IV DATA: Not applicable SIGNED BY: Ruth Ann Mauro RDMS RVT May 26, 2024 7:25 [facility]04-11-2025 Instructions* Patient Instructions* Jeff SimeonDO - 2024 10:16 AM EDT Add some ground flax and ground ronnie seed into your diet as able. documented in this encounterMount Carmel Health System04-11-2025 NoteHNO ID: [id number] Author: JEFF SIMEON DO Service: ? Author Type: Physician Type: Progress Notes Filed: 2024 10:54 Note Text: Us Patient presents with: F/U 3 Month HPI: Nguyen Queen is a 79 year old female who presents to the office today for review of health conditions. Concerns today: Iron deficiency, was given 7 treatments, feels this is helping her fatigue. Her hemoglobin when last checked 2-3 weeks ago was at 12. Vitamin b12 deficiency, last level in the 400s. Hasn't had labs rechecked. But does feel less fatigue than previously Will have follow up next with Dr. Singh for Oncologist on 10/23 and labs prior Next follow up in the next few months with Head [facility] Dr. Crystal as well. She is eating better and less weakness symptoms Ms. Queen has past history of diabetes. Since our last visit she denies excessive thirst or increased frequency of urination, chest pain or dyspnea , new or unusual visual symptoms, and low sugar/hypoglycemic reactions. Depression- no. Follows a diabetic diet . She is compliant with medication(s) and is tolerating med(s) without any side effects. She reports checking her glucose on a twice a day schedule with sugars in the <150 range. Patient's last HgA1C was Hemoglobin A1C (%) Date Value 02/04/2024 5.5 11/13/2023 5.9 02/15/2021 7.3 08/17/2020 7.0 ) Last Ophthalmology exam was within the past 12 months Ms. Queen reports history of hyperlipidemia. Current therapy includes diet and exercise. Denies side effects of muscle weakness or achiness. Her most recent lipid panels are reviewed. Cholesterol, Total (mg/dL) Date Value 02/04/2024 114 02/15/2021 189 HDL Cholesterol (mg/dL) Date Value 02/04/2024 44 02/15/2021 34 LDL Cholesterol (mg/dL) Date Value 02/04/2024 52 02/15/2021 122 Triglyceride (mg/dL) Date Value 02/04/2024 89 02/15/2021 165 Ms. Queen indicates a history of hypertension and states that she is feeling well and denies any symptoms referable to elevated blood pressure. Specifically denies headache, chest pain, palpitations, dyspnea, and peripheral edema. Patient denies any side effects of her medication(s) and is compliant with their regimen. Last 3 Encounter BP Readings: Date: BP: 2024 124/60 02/14/2024 118/72 11/20/2023 118/58 She watches her diet for sodium, low fat and low cholesterol some of the time. She does not check BP's generally. Nguyen gets sporadic irregular exercise. PAST MEDICAL HISTORY Diagnosis Date Advance care planning 08/24/2021 [facility] Diabetes mellitus, type 2 (HCC) Environmental allergies Hyperlipidemia Hypothyroidism, unspecified Liver failure (HCC) 2005 unsure of cause Migraine headache onset age 7 PAST SURGICAL HISTORY Procedure Laterality Date BREAST BIOPSY NEEDLE LEFT 12/31/2014 x 2, Dr. Ronquillo COLONOSCOPY FLX DX W/COLLJ SPEC WHEN PFRMD 08/25/2003 adenomatous polyp and diverticulosis. [facility] COLONOSCOPY FLX DX W/COLLJ SPEC WHEN PFRMD 09/28/2006 No polyps found. 5 yr recall. [facility] COLONOSCOPY FLX DX W/COLLJ SPEC WHEN PFRMD 02/26/2018 Colonoscopy ESOPHAGOGASTRODUODENOSCOPY TRANSORAL DIAGNOSTIC 08/31/2003 Unremarkable, negative biopsies. [facility] ESOPHAGOGASTRODUODENOSCOPY TRANSORAL DIAGNOSTIC 02/26/2018 EGD LAPAROSCOPIC CHOLECYSTECTOMY 04/05/2022 REMV CATARACT EXTRACAP,INSERT LENS Bilateral TONSILLECTOMY HX Social History Tobacco Use Smoking status: Never Smokeless tobacco: Never Vaping Use Vaping status: Never Used Substance Use Topics Alcohol use: No Drug use: No FAMILY HISTORY Adopted: Yes Allergies: ALLERGIES Allergen Reactions Benadryl [Diphenhyd* Swelling Penicillins Shortness of Breath Pffjekh-Vmc-Yhx Red* Contraindication-Medical Surgical History of liver failure Current Meds: levothyroxine (LEVOXYL) 150 mcg tablet Take 1 tablet 3 days a week and take 1.5 tablets 4 days a week. Take on empty stomach. For Thyroid. glimepiride (AMARYL) 2 mg tablet Take 1 tablet by mouth daily with breakfast. blood sugar diagnostic (ONETOUCH ULTRA TEST) test strip Use with blood glucose test three times a day. Insulin Dep? Yes lancets (ONE TOUCH DELICA) 33 gauge Test blood sugar(s) twice daily. Dx: Type 2 DM - Controlled E11.9 Insulin: No metFORMIN (GLUCOPHAGE) 500 mg tablet Take 1 tablet by mouth two times a day with meals. ferrous sulfate 325 mg (65 mg iron) tablet Take 1 tablet by mouth every other day. lancets 30 gauge Use with blood glucose test once daily Delcia plus blood sugar diagnostic (BLOOD GLUCOSE TEST) test strip Test blood sugar(s) 2 times daily. Dx: Type 2 DM - Controlled E11.9 Insulin: No losartan (COZAAR) 50 mg tablet Take 1 tablet by mouth once daily. ONETOUCH DELICA LANCETS 30 gauge TEST BLOOD SUGAR(S) TEST BLOOD SUGARS TWICE DAILY. DX: TYPE 2 DM - CONTROLLED E11.9 INSULIN: NO Delecia Beck (more content not included)...[facility]04-11-2025 History of Present illness Narrative* Jeff Simeon, DO - 2024 10:02 AM EDT Us Patient presents with: F/U 3 Month HPI: Nguyen Queen is a 79 year old female who presents to the office today for review of health conditions. Concerns today: Iron deficiency, was given 7 treatments, feels this is helping her fatigue. Her hemoglobin when last checked 2-3 weeks ago was at 12. Vitamin b12 deficiency, last level in the 400s. Hasn't had labs rechecked. But does feel less fatigue than previously Will have follow up next with Dr. Singh for Oncologist on 10/23 and labs prior Next follow up in the next few months with [facility] Dr. Crystal as well. She is eating better and less weakness symptoms Ms. Queen has past history of diabetes. Since our last visit she denies excessive thirst or increased frequency of urination, chest pain or dyspnea , new or unusual visual symptoms, and low sugar/hypoglycemic reactions. Depression- no. Follows a diabetic diet . She is compliant with medication(s)and is tolerating med(s) without any side effects. She reports checking her glucose on a twice a day schedule with sugars in the <150 range. Patient's last HgA1C was Hemoglobin A1C (%) Date Value 02/04/2024 5.5 11/13/2023 5.9 02/15/2021 7.3 08/17/2020 7.0 ) Last Ophthalmology exam was within the past 12 months Ms. Queen reports history of hyperlipidemia. Current therapy includes diet and exercise. Denies side effects of muscle weakness or achiness. Her most recent lipid panels are reviewed. Cholesterol, Total (mg/dL) Date Value 02/04/2024 114 02/15/2021 189 HDL Cholesterol (mg/dL) Date Value 02/04/2024 44 02/15/2021 34 LDL Cholesterol (mg/dL) Date Value 02/04/2024 52 02/15/2021 122 Triglyceride (mg/dL) Date Value 02/04/2024 89 02/15/2021 165 Ms. Queen indicates a history of hypertension and states that she is feeling well and denies any symptoms referable to elevated blood pressure. Specifically denies headache, chest pain, palpitations, dyspnea, and peripheral edema. Patient denies any side effects of her medication(s) and is compliant with their regimen. Last 3 Encounter BP Readings: Date: BP: 2024 124/60 02/14/2024 118/72 11/20/2023 118/58 She watches her diet for sodium, low fat and low cholesterol some of the time. She does not check BP's generally. Nguyen gets sporadic irregular exercise. PAST MEDICAL HISTORY Diagnosis Date Advance care planning 08/24/2021 [facility] Diabetes mellitus, type 2 (HCC) Environmental allergies Hyperlipidemia Hypothyroidism, unspecified Liver failure (HCC) 2004 unsure of cause Migraine headache onset age 7 PAST SURGICAL HISTORY Procedure Laterality Date BREAST BIOPSY NEEDLE LEFT 12/31/2014 x 2, Dr. Ronquillo COLONOSCOPY FLX DX W/COLLJ SPEC WHEN PFRMD 08/25/2003 adenomatous polyp and diverticulosis. [facility] COLONOSCOPY FLX DX W/COLLJ SPEC WHEN PFRMD 09/28/2006 No polyps found. 5 yr recall. [facility]. [facility] COLONOSCOPY FLX DX W/COLLJ SPEC WHEN PFRMD 02/26/2018 Colonoscopy ESOPHAGOGASTRODUODENOSCOPY TRANSORAL DIAGNOSTIC 08/31/2003 Unremarkable, negative biopsies. [facility] ESOPHAGOGASTRODUODENOSCOPY TRANSORAL DIAGNOSTIC 02/26/2018 EGD LAPAROSCOPIC CHOLECYSTECTOMY 04/05/2022 REMV CATARACT EXTRACAP,INSERT LENS Bilateral TONSILLECTOMY HX Social History Tobacco Use Smoking status: Never Smokeless tobacco: Never Vaping Use Vaping status: Never Used Substance Use Topics Alcohol use: No Drug use: No FAMILY HISTORY Adopted: Yes Allergies: ALLERGIES Allergen Reactions Benadryl [Diphenhyd* Swelling Penicillins Shortness of Breath Krqgius-Pja-Gxs Red* Contraindication-Medical Surgical History of liver failure Current Meds: levothyroxine (LEVOXYL) 150 mcg tablet Take 1 tablet 3 days a week and take 1.5 tablets 4 days a week. Take on empty stomach. For Thyroid. glimepiride (AMARYL) 2 mg tablet Take 1 tablet by mouth daily with breakfast. blood sugar diagnostic (ONETOUCH ULTRA TEST) test strip Use with blood glucose test three times a day. Insulin Dep? Yes lancets (ONE TOUCH DELICA) 33 gauge Test blood sugar(s) twice daily. Dx: Type 2 DM - Controlled E11.9 Insulin: No metFORMIN (GLUCOPHAGE) 500 mg tablet Take 1 tablet by mouth two times a day with meals. ferrous sulfate 325 mg (65 mg iron) tablet Take 1 tablet by mouth every other day. lancets 30 gauge Use with blood glucose test once daily Delcia plus blood sugar diagnostic (BLOOD GLUCOSE TEST) test strip Test blood sugar(s) 2 times daily. Dx: Type 2 DM - Controlled E11.9 Insulin: No losartan (COZAAR) 50 mg tablet Take 1 tablet by mouth once daily. ONETOUCH DELICA LANCETS 30 gauge TEST BLOOD SUGAR(S) TEST BLOOD SUGARS TWICE DAILY. DX: TYPE 2 DM -CONTROLLED E11.9 INSULIN: NO Delecia Lancets (ONETOUCH ULTRASOFT LANCETS) lancets Use once daily as directed E11.9 blood sugar diagnostic (ONETOUCH ULTRA TEST STRIP) test strip Type 2 diabetes, no insulin, well controlled, Use as instructed Blood-Glucose Meter monitoring kit Glucose Meter of Choice - Kit - Dx: Type 2 DM - Controlled E11.9 Review of Systems: The remainder of the review of systems is negative. PE: 05/23/24 0942 BP: 124/60 Pulse: 80 Resp: 16 Temp: 36.1 C (97 F) TempSrc: Right Tympanic Weight: 75.8 kg (167 lb) Gen: A&O, NAD, non-toxic appearing, Pleasant, [...] wheezing or rhonchi or rales Abd: soft, mild diffuse TTP without r/r/g, ND, +BS, no hepatosplenomegaly MS: arthritis multiple joints Neuro: CN II-XII intact b/l, strength 5/5 b/l UE and LE, DTRs 2/4 UE and LE, sensation intact. Skin: warm, dry, intact, No rashes or lesions on exposed skin. Foot exam: Monofilament wnl on right and left feet. + b/l leg edema, left >right, non pitting with mild calf ttp ASSESSMENT/PLAN: 1. 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 Hypothyroidism, acquired - ICD9: 244.9, ICD10: E03.9 - Instructed patient on importance of taking on an empty stomach either first thing in the morning or at bedtime. - LEVOTHYROXINE 150 MCG TABLET - THYROID STIMULATING HORMONE - T4 FREE/FREE THYROXINE 3. Encounter for screening mammogram for malignant neoplasm of breast - ICD9: V76.12, ICD10: Z12.31 - Set up for mammogram, yearly mammogram recommended - Encouraged monthly BSE - Increase calcium intake with supplements or by diet (goal of 2991-2059 mg/day - CAROLINE SCREENING W FLOR 4. Left leg swelling - ICD9: 729.81, ICD10: M79.89 Order placed for DVT assessment, likely related to nutrition changes after her colectomy if this isnegative - US DVT LOWER BILATERAL 5. Vitamin D deficiency - ICD9: 268.9, ICD10: E55.9 - VITAMIN D 25 HYDROXY 6. Vitamin B12 deficiency - ICD9: 266.2, ICD10: E53.8 Recheck labs Last vitamin b12 injection was in Dec - VITAMIN B12 7. Other iron deficiency anemia - ICD9: 280.8, ICD10: D50.8 Improved, had iron infusions 8. Right leg swelling - ICD9: 729.81, ICD10: M79.89 Order placed for DVT assessment, likely related to nutrition changes after her colectomy if this isnegative - US LEG VEIN DVT CLIFF VAS LAB - US DVT LOWER BILATERAL 9. Essential hypertension with goal blood pressure less than 130/80 - ICD9: 401.9, ICD10: I10 - Controlled - Continue current medications - Recommend home blood pressure monitoring, to bring results to next visit - Encouraged sodium restriction, DASH or Mediterranean diet - Recommend regular aerobic exercise 10. S/P colectomy - ICD9: V45.89, ICD10: Z90.49 See above F/u with DR. Singh oncologist and wage hand 11. Colon neoplasm - ICD9: 239.0, ICD10: D49.0 See above, s/p resection and improved. Jeff Simeon DO To ER if develops chest pain, shortness of breath, or severe worsening of symptoms. Discussed risks, benefits, alternatives, and potential side effects of medications. Patient expressed understanding and agreed with the plan. Jeff Simeon DO [address] [place] [address] documented in this encounterMount [facility] System01-02-2025 Telephone encounter Note * Telephone Encounter - Karson Woodward APRN.ELECTRICAL ENGINEERING DIRECTOR - 02/14/2024 2:42 PM EST Patient states that she usually gets her B12 shots and is due for one with our nurse Lani. For whatever reason she states she hasn't been able to schedule this appt. I'm not familiar with this, are we able to help her out? Thanks Karosn Woodward APRN.ELECTRICAL ENGINEERING DIRECTOR [facility]01-02-[facility] Miscellaneous Notes* Telephone Encounter - Karson Woodward APRN.CNP - 02/14/2024 2:42 PM EST Patient states that she usually gets her B12 shots and is due for one with our nurse Lani. For whatever reason she states she hasn't been able to schedule this appt. I'm not familiar with this, are we able to help her out? Thanks Karson Woodward APRN.ELECTRICAL ENGINEERING DIRECTOR documented in this encounterMount [facility]el [facility] System01-02-2025 Telephone encounter Note * Telephone Encounter - Karson Woodward APRN.CNP - 02/14/2024 1:46 PM EST Noted, thank you. Karson Woodward APRN.BLAYNE [facility]01-02-2025 Miscellaneous Notes* Telephone Encounter - Karson Woodward APRN.CNP - 02/14/2024 1:46 PM EST Noted, thank you. Karson Woodward APRN.ELECTRICAL ENGINEERING DIRECTOR * Telephone Encounter - Nell Perez MA - 02/14/2024 12:27 PM EST Spoke with DR. Varghese nurse who reports pt stopped taking the eliqus at 30 days, was supposed to take for 45 days, but she had trouble with cost/ felt like it caused swelling in her legs. Dr. Singh said patient should be fine. Nell Perez MA * Telephone Encounter - Karson Woodward APRN.CNP - 02/14/2024 11:50 AM EST Patient states that she has right calf DVT and Dr. Singh gave her Eliquis x1 month. Typically we will have them take it for at least 3-6 months, I just wanted to make sure that he did only want it for1 month. If so that's fine! Karson Woodward APRN.CNP documented in this encounterMount Carmel Health System01-02-2025 Telephone encounter Note * Telephone Encounter - Nell Perez MA - 02/14/2024 12:27 PM EST Spoke with DR. Varghese nurse who reports pt stopped taking the eliqus at 30 days, was supposed to take for 45 days, but she had trouble with cost/ felt like it caused swelling in her legs. Dr. Singh said patient should be fine. Nell Perez MA [facility]01-02-20[facility] Telephone encounter Note* Telephone Encounter - Karson Woodward APRN.CNP - 02/14/2024 11:50 AM EST Patient states that she has right calf DVT and Dr. Singh gave her Eliquis x1 month. Typically we will have them take it for at least 3-6 months, I just wanted to make sure that he did only want it for1 month. If so that's fine! Karson Woodward APRN.CNP [facility]01-02-[facility]25 NoteHNO ID: [id number] Author: KARSON WOODWARD APRN.CNP Service: ? Author Type: Nurse Practitioner Type: Progress Notes Filed: 02/14/2024 14:41 Note Text: Chief Complaint Patient presents with: F/U 3 Month: DM follow up HPI Nguyen Queen is a 78 year old female who presents here today for Above Complaints.. DM-controlled. Denies increased thirst or urination. Now that cancer is gone feels great, doesn't catch flu/colds/etc, lots of energy, overall no complaints. Iron infusions-ordered by Dr. Singh. This makes her feel much better. Tries not to eat fruits like he says, but does have some here and there. Weight-is working to lose it. Cannot eat 3 meals/day-stomach won't hold this. Can only get 2-3 bites in when she eats-but does seem to graze during the day-piece of cheese, etc.-no sweets. Right calf DVT-Dr. Singh prescribed her Eliquis for this and she took it for one month and hasn't anymore. She doesn't think she has to take it anymore than this. States can't afford it anyway. Sees Dr. Singh in another month or so. Vitamin D-knows it is low but states at [facility] tried to give this to her and she can't tolerate it-overall just makes her very sick. Past medical history, appointments, medications, allergies reviewed. Previous Medical History PAST MEDICAL HISTORY Diagnosis Date Advance care planning 08/24/2021 [facility] Diabetes mellitus, type 2 (HCC) Environmental allergies Hyperlipidemia Hypothyroidism, unspecified Liver failure (HCC) 2004 unsure of cause Migraine headache onset age 7 Previous Surgical History PAST SURGICAL HISTORY Procedure Laterality Date BREAST BIOPSY NEEDLE LEFT 12/31/2014 x 2, Dr. Ronquillo COLONOSCOPY FLX DX W/COLLJ SPEC WHEN PFRMD 08/25/2003 adenomatous polyp and diverticulosis. [facility] COLONOSCOPY FLX DX W/COLLJ SPEC WHEN PFRMD 09/28/2006 No polyps found. 5 yr recall. [facility]. [facility] COLONOSCOPY FLX DX W/COLLJ SPEC WHEN PFRMD 02/26/2018 Colonoscopy ESOPHAGOGASTRODUODENOSCOPY TRANSORAL DIAGNOSTIC 08/31/2003 Unremarkable, negative biopsies. [facility] ESOPHAGOGASTRODUODENOSCOPY TRANSORAL DIAGNOSTIC 02/26/2018 EGD LAPAROSCOPIC CHOLECYSTECTOMY 04/05/2022 REMV CATARACT EXTRACAP,INSERT LENS Bilateral TONSILLECTOMY HX Family History FAMILY HISTORY Adopted: Yes Patient Allergies ALLERGIES Allergen Reactions Benadryl [Diphenhyd* Swelling Penicillins Shortness of Breath Wwghshz-Dej-Tqb Red* Contraindication-Medical Surgical History of liver failure Current Medications Current Outpatient Medications on File Prior to Visit Medication Sig levothyroxine (LEVOXYL) 150 mcg tablet Take 1 tablet 3 days a week and take 1.5 tablets 4 days a week. Take on empty stomach. For Thyroid. metFORMIN (GLUCOPHAGE) 500 mg tablet Take 1 tablet by mouth two times a day with meals. ferrous sulfate 325 mg (65 mg iron) tablet Take 1 tablet by mouth every other day. lancets 30 gauge Use with blood glucose test once daily Delcia plus blood sugar diagnostic (BLOOD GLUCOSE TEST) test strip Test blood sugar(s) 2 times daily. Dx: Type 2 DM - Controlled E11.9 Insulin: No losartan (COZAAR) 50 mg tablet Take 1 tablet by mouth once daily. glimepiride (AMARYL) 2 mg tablet Take 1 tablet by mouth daily with breakfast. ONETOUCH DELICA LANCETS 30 gauge TEST BLOOD SUGAR(S) TEST BLOOD SUGARS TWICE DAILY. DX: TYPE 2 DM - CONTROLLED E11.9 INSULIN: NO Delecia Lancets (ONETOUCH ULTRASOFT LANCETS) lancets Use once daily as directed E11.9 lancets (ONE TOUCH DELICA) 33 gauge Test blood sugar(s) twice daily. Dx: Type 2 DM - Controlled E11.9 Insulin: No blood sugar diagnostic (ONETOUCH ULTRA TEST STRIP) test strip Type 2 diabetes, no insulin, well controlled, Use as instructed Blood-Glucose Meter monitoring kit Glucose Meter of Choice - Kit - Dx: Type 2 DM - Controlled E11.9 ascorbic acid, vitamin C, 500 mg cap Take 1 tablet by mouth two times a day. (Patient not taking: Reported on 02/14/2024) furosemide (LASIX) 40 mg tablet Take 1 tablet by mouth once daily for 10 days. metroNIDAZOLE (FLAGYL) 500 mg tablet Take 500 mg by mouth three times a day. (Patient not taking: Reported on 02/14/2024) ciprofloxacin HCl (CIPRO) 500 mg tablet Take 500 mg by mouth two times a day. (Patient not taking: Reported on 02/14/2024) pantoprazole DR (PROTONIX) 40 mg tablet Take 1 tablet by mouth two times a day. Take on empty stomach, 1/2 hr before meal. (Patient not taking: Reported on 02/14/2024) fexofenadine (VALENTINA) 180 mg tablet Take 1 tablet by mouth once daily. (Patient not taking: Reported on 02/14/2024) ondansetron orally disintegrating (ZOFRAN ODT) 4 mg disintegrating tablet Take 1 tablet by mouth every 6 hours as needed for nausea/vomiting. (Patient not taking: Reported on 02/14/2024) aspirin, enteric coated (ASPIRIN, ENTERIC COATED) 81 mg EC tablet Take 81 mg by mouth once daily. (Patient not taking: Reported on 02/13/19 (more content not included)...[facility]01-02-2025 History of Present illness Narrative* Karson Woodward APRN.ELECTRICAL ENGINEERING DIRECTOR - 02/14/2024 11:22 AM EST Chief Complaint Patient presents with: F/U 3 Month: DM follow up HPI Nguyen Queen is a 78 year old female who presents here today for Above Complaints.. DM-controlled. Denies increased thirst or urination. Now that cancer is gone feels great, doesn't catch flu/colds/etc, lots of energy, overall no complaints. Iron infusions-ordered by Dr. Singh. This makes her feel much better. Tries not to eat fruits like he says, but does have some here and there. Weight-is working to lose it. Cannot eat 3 meals/day-stomach won't hold this. Can only get 2-3 bites in when she eats-but does seem to graze during the day- piece of cheese, etc.-no sweets. Right calf DVT-Dr. Singh prescribed her Eliquis for this and she took it for one month and hasn't anymore. She doesn't think she has to take it anymore than this. States can't afford it anyway. Sees Dr. Singh in another month or so. Vitamin D-knows it is low but states at [facility] tried to give this to her and she can't tolerate it-overall just makes her very sick. Past medical history, appointments, medications, allergies reviewed. Previous Medical History PAST MEDICAL HISTORY Diagnosis Date Advance care planning 08/24/2021 [facility] Diabetes mellitus, type 2 (HCC) Environmental allergies Hyperlipidemia Hypothyroidism, unspecified Liver failure (HCC) 2004 unsure of cause Migraine headache onset age 7 Previous Surgical History PAST SURGICAL HISTORY Procedure Laterality Date BREAST BIOPSY NEEDLE LEFT 12/31/2014 x 2, Dr. Ronquillo COLONOSCOPY FLX DX W/COLLJ SPEC WHEN PFRMD 08/25/2003 adenomatous polyp and diverticulosis. [facility] COLONOSCOPY FLX DX W/COLLJ SPEC WHEN PFRMD 09/28/2006 No polyps found. 5 yr recall. [facility] COLONOSCOPY FLX DX W/COLLJ SPEC WHEN PFRMD 02/26/2018 Colonoscopy ESOPHAGOGASTRODUODENOSCOPY TRANSORAL DIAGNOSTIC 08/31/2003 Unremarkable, negative biopsies. [facility] ESOPHAGOGASTRODUODENOSCOPY TRANSORAL DIAGNOSTIC 02/26/2018 EGD LAPAROSCOPIC CHOLECYSTECTOMY 04/05/2022 REMV CATARACT EXTRACAP,INSERT LENS Bilateral TONSILLECTOMY HX Family History FAMILY HISTORY Adopted: Yes Patient Allergies ALLERGIES Allergen Reactions Benadryl [Diphenhyd* Swelling Penicillins Shortness of Breath Jxxbrxo-Frj-Vfr Red* Contraindication-Medical Surgical History of liver failure Current Medications Current Outpatient Medications on File Prior to Visit Medication Sig levothyroxine (LEVOXYL) 150 mcg tablet Take 1 tablet 3 days a week and take 1.5 tablets 4 days a week. Take on empty stomach. For Thyroid. metFORMIN (GLUCOPHAGE) 500 mg tablet Take 1 tablet by mouth two times a day with meals. ferrous sulfate 325 mg (65 mg iron) tablet Take 1 tablet by mouth every other day. lancets 30 gauge Use with blood glucose test once daily Delcia plus blood sugar diagnostic (BLOOD GLUCOSE TEST) test strip Test blood sugar(s) 2 times daily. Dx: Type 2 DM - Controlled E11.9 Insulin: No losartan (COZAAR) 50 mg tablet Take 1 tablet by mouth once daily. glimepiride (AMARYL) 2 mg tablet Take 1 tablet by mouth daily with breakfast. ONETOUCH DELICA LANCETS 30 gauge TEST BLOOD SUGAR(S) TEST BLOOD SUGARS TWICE DAILY. DX: TYPE 2 DM -CONTROLLED E11.9 INSULIN: NO Delecia Lancets (ONETOUCH ULTRASOFT LANCETS) lancets Use once daily as directed E11.9 lancets (ONE TOUCH DELICA) 33 gauge Test blood sugar(s) twice daily. Dx: Type 2 DM - Controlled E11.9 Insulin: No blood sugar diagnostic (ONETOUCH ULTRA TEST STRIP) test strip Type 2 diabetes, no insulin, well controlled, Use as instructed Blood-Glucose Meter monitoring kit Glucose Meter of Choice - Kit - Dx: Type 2 DM - Controlled E11.9 ascorbic acid, vitamin C, 500 mg cap Take 1 tablet by mouth two times a day. (Patient not taking: Reported on 02/14/2024) furosemide (LASIX) 40 mg tablet Take 1 tablet by mouth once daily for 10 days. metroNIDAZOLE (FLAGYL) 500 mg tablet Take 500 mg by mouth three times a day. (Patient not taking: Reported on 02/14/2024) ciprofloxacin HCl (CIPRO) 500 mg tablet Take 500 mg by mouth two times a day. (Patient not taking: Reported on 02/14/2024) pantoprazole DR (PROTONIX) 40 mg tablet Take 1 tablet by mouth two times a day. Take on empty stomach, 1/2 hr before meal. (Patient not taking: Reported on 02/14/2024) fexofenadine (VALENTINA) 180 mg tablet Take 1 tablet by mouth once daily. (Patient not taking: Reported on 02/14/2024) ondansetron orally disintegrating (ZOFRAN ODT) 4 mg disintegrating tablet Take 1 tablet by mouth every 6 hours as needed for nausea/vomiting. (Patient not taking: Reported on 02/14/2024) aspirin, enteric coated (ASPIRIN, ENTERIC COATED) 81 mg EC tablet Take 81 mg by mouth once daily. (Patient not taking: Reported on 02/14/2024) No current facility-administered medications on file prior to visit. Social History Social History Tobacco Use Smoking status: Never Smokeless tobacco: Never Vaping Use Vaping status: Never Used Substance Use Topics Alcohol use: No Drug use: No Review of Symptoms REVIEW OF SYSTEMS See HPI, otherwise negative EXAM: BP 118/72 (BP Site: Left Arm, BP Position: Sitting, BP Cuff Size: Regular Adult) Pulse 89 Resp 16 Wt 73.2 kg (161 lb 6 oz) SpO2 99% BMI 28.59 kg/m General Appearance: Well appearing, alert, in no acute distress, well-hydrated, well nourished.. Lungs: Lungs clear to auscultation. No wheezing, rhonchi, rales.. Heart: RRR without murmur, gallop, or rubs. No ectopy. Psychiatric: pleasant, cooperative. Health Maintenance List Shingrix Vaccine(1 of 2) Never done Pneumococcal Vaccine: 50+(2 of 2 - PCV) due on 05/17/2015 DTaP,Tdap,Td Vaccine(2 - Td or Tdap) due on 05/16/2020 RSV Vaccine(1 - 1-dose 75+ series) Never done Diabetic Foot Exam due on 09/06/2023 Influenza Vaccine(1) due on 10/14/2023 Covid-19 Vaccine( - season) due on 10/14/2023 Urine Albumin:Creatinine Ratio due on 12/01/2023 Depression Screening due on 06/24/2024 Anxiety Screening due on 06/24/2024 HbA1C due on 08/04/2024 Dilated Retinal Exam due on 01/03/2025 LDL Cholesterol due on 02/03/2025 Annual PCP Team Chronic Disease Visit due on 02/13/2025 BP Controlled (<130/80) due on 02/13/2025 Bone Density Screening Completed Hepatitis C Screening Completed Mammogram Screening Discontinued Colorectal Cancer Screening Discontinued Advance Directive Discussion Discontinued Data reviewed Previous records, office notes ASSESSMENT/PLAN: 1. Essential hypertension with goal blood pressure less than 130/80 - ICD9: 401.9, ICD10: I10 (primary diagnosis) - Controlled - Continue current medications - Recommend home blood pressure monitoring, to bring results to next visit - Encouraged sodium restriction, DASH or Mediterranean diet - Recommend regular aerobic exercise 2. 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 Hypertriglyceridemia - ICD9: 272.1, ICD10: E78.1 - Continue current medications - Counseled on healthy diet and regular exercise 4. Hypothyroidism, acquired - ICD9: 244.9, ICD10: E03.9 - Instructed patient on importance of taking on an empty stomach either first thing in the morning or at bedtime. 5. Other iron deficiency anemia - ICD9: 280.8, ICD10: D50.8 Continue to follow with oncology for iron infusions 6. S/P colectomy - ICD9: V45.89, ICD10: Z90.49 Continue to monitor Karson Woodward APRN.CNP Greater than 50% of 46-minute visit spent face to face with patient in counseling and education. documented in this encounter[facility]12-20-2024 Miscellaneous Notes* Telephone Encounter - Nell Perez MA - 02/01/2024 2:13 PM EST Pt informed Nell Perez MA * Telephone Encounter - Karson Woodward APRN.CNP - 02/01/2024 2:02 PM EST Lab orders placed. Karson Woodward APRN.CNP * Telephone Encounter - Monse Ibarra - 02/01/2024 12:40 PM EST Pt is requesting lab orders be put in so that she can have them drawn a week before her upcoming appt with Crissy. documented in this encounterMount [facility]el [facility] System12-20-2024 Telephone encounter Note * Telephone Encounter - Nell Perez MA - 02/01/2024 2:13 PM EST Pt informed Nell Perez MA [facility]12-[facility] Telephone encounter Note* Telephone Encounter - Karson Woodward APRN.CNP - 02/01/2024 2:02 PM EST Lab orders placed. Karson Woodward APRN.CNP [facility]12-20-2024 Telephone encounter Note* Telephone Encounter - FredMonse sweeney - 02/01/2024 12:40 PM EST Pt is requesting lab orders be put in so that she can have them drawn a week before her upcoming appt with Crissy. [facility]12-12-2024 Evaluation note* Diagnosis Onset Date Resolution Status Admit Date Bilateral lower extremity edema chronic January 23, 2 024 1:22pm Colon cancer, ascending chronic D ecember 2023 1:22pm Elevated CEA chronic January 1:22pm Anemia resolved January 24, 2024 1:22pm Colon cancer, ascending chronic M arch 2024 1:00pm Elevated CEA chronic April 17, 2 025 1:00pm Anemia resolved April 17 1:00pm Colon cancer, ascending chronic M arch 2024 10:43am NAFLD (nonalcoholic fatty liver disease) chronic May 06, 2024 10:43am Ulcerative colitis chronic May 06, 2024 10:43am [facility] Work Phone: [phone] 666-680010-08-2024 History of Present illness Narrative* Jeff Simeon, - 11/20/2023 9:11 AM EDT Patient presents with: Follow Up: 3 month HPI: Nguyen Queen is a 78 year old female who presents to the office today for review of health conditions. Concerns today: Edema, legs, left >right. Is scheduled to have a doppler today to check cause of the edema Vitamin b12, needs her vitamin b12 injection today Hypothyroidism, taking levothyroxine 150 mcg a day TSH Date Value Ref Range Status 11/13/2023 0.106 (L) 0.270 - 4.200 mIU/L Final Free T4 Date Value Ref Range Status 11/13/2023 0.6 (L) 0.9 - 1.7 ng/dL Final Iron deficiency, not able to tolerate the oral iron supplement or oral vitamin C supplement. Hasn'tgotten IV iron - has d/w Dr. Singh about this in the past but hasn't happened yet Has recently been started on ciprofloxacin and metronidazole medications. Recently with right colectomy for colon cancer - Dr. Crystal Head Porter. Has upcoming CT chest for her recent shortness of breath and upcoming CT abd/pelvis for follow up in 1 week. She feels that she isn't able to tolerate these medications due to GI upset and vomiting. She also isn't making normal bowel movements. Next follow up with Dr. Crystal at May 06 Feels that she has muscle weakness since medication changes after her recent hospitalization and she lost about 20 lbs with her hospitalization. She hasn't started PHYSICAL THERAPY yet Ms. Queen has past history of diabetes. Since our last visit she denies excessive thirst or increased frequency of urination, chest pain or dyspnea , numbness, tingling or pain in extremities, and new or unusual visual symptoms. Patient admits to have low sugar/hypoglycemic reactions two or more times a week. Follows a diabetic diet most of the time. She is not compliant with medication(s) due to side effects of stomach upset. She reports checking her glucose on a once a day schedule with sugars in the fasting <150 range. Patient's last HgA1C was Hemoglobin A1C (%) Date Value 11/13/2023 5.9 06/20/2023 6.4 02/15/2021 7.3 08/17/2020 7.0 ) Last Ophthalmology [...] Last 3 Encounter BP Readings: Date: BP: 11/20/2023 118/58 10/24/2023 104/58 07/11/2023 142/82 She watches her diet for sodium, low fat and low cholesterol some of the time. She does not check BP's generally. Nguyen gets minimal exercise. PAST MEDICAL HISTORY Diagnosis Date Advance care planning 08/24/2021 [facility] Diabetes mellitus, type 2 (HCC) Environmental allergies Hyperlipidemia Hypothyroidism, unspecified Liver failure (HCC) 2005 unsure of cause Migraine headache onset age 7 PAST SURGICAL HISTORY Procedure Laterality Date BREAST BIOPSY NEEDLE LEFT 12/31/2014 x 2, Dr. Ronquillo COLONOSCOPY FLX DX W/COLLJ SPEC WHEN PFRMD 08/25/2003 adenomatous polyp and diverticulosis. [facility] COLONOSCOPY FLX DX W/COLLJ SPEC WHEN PFRMD 09/28/2006 No polyps found. 5 yr recall. [facility]. [facility] COLONOSCOPY FLX DX W/COLLJ SPEC WHEN PFRMD 02/26/2018 Colonoscopy ESOPHAGOGASTRODUODENOSCOPY TRANSORAL DIAGNOSTIC 08/31/2003 Unremarkable, negative biopsies. [facility] ESOPHAGOGASTRODUODENOSCOPY TRANSORAL DIAGNOSTIC 02/26/2018 EGD LAPAROSCOPIC CHOLECYSTECTOMY 04/05/2022 REMV CATARACT EXTRACAP,INSERT LENS Bilateral TONSILLECTOMY HX Social History Tobacco Use Smoking status: Never Smokeless tobacco: Never Vaping Use Vaping status: Never Used Substance Use Topics Alcohol use: No Drug use: No FAMILY HISTORY Adopted: Yes Allergies: ALLERGIES Allergen Reactions Benadryl [Diphenhyd* Swelling Penicillins Shortness of Breath Bxxtesl-Dlq-Tzc Red* Contraindication-Medical Surgical History of liver failure Current Meds: levothyroxine (LEVOXYL) 150 mcg tablet^Take 1 tablet by mouth once daily. Take on empty stomach. For Thyroid.^Disp: 90 tablet^Rfl: 3 metroNIDAZOLE (FLAGYL) 500 mg tablet^Take 500 mg by mouth three times a day.^Disp: ^Rfl: ciprofloxacin HCl (CIPRO) 500 mg tablet^Take 500 mg by mouth two times a day.^Disp: ^Rfl: ferrous sulfate 325 mg (65 mg iron) tablet^Take 1 tablet by mouth every other day.^Disp: ^Rfl: pantoprazole DR (PROTONIX) 40 mg tablet^Take 1 tablet by mouth two times a day. Take on empty stomach, 1/2 hr before meal.^Disp: ^Rfl: fexofenadine (VALENTINA) 180 mg tablet^Take 1 tablet by mouth once daily.^Disp: 90 tablet^Rfl: 3 losartan (COZAAR) 50 mg tablet^Take 1 tablet by mouth once daily.^Disp: 90 tablet^Rfl: 3 glimepiride (AMARYL) 2 mg tablet^Take 1 tablet by mouth daily with breakfast.^Disp: 90 tablet^Rfl: 3 metFORMIN (GLUCOPHAGE) 500 mg tablet^Take 2 tablets by mouth two times a day with meals.^Disp: 360 tablet^Rfl: 3 aspirin, enteric coated (ASPIRIN, ENTERIC COATED) 81 mg EC tablet^Take 81 mg by mouth once daily.^Disp: ^Rfl: ascorbic acid, vitamin C, 500 mg cap^Take 1 tablet by mouth two times a day.^Disp: ^Rfl: furosemide (LASIX) 40 mg tablet^Take 1 tablet by mouth once daily for 10 days.^Disp: 10 tablet^Rfl:0 lancets 30 gauge^Use with blood glucose test once daily Delcia plus^Disp: 50 Each^Rfl: 3 blood sugar diagnostic (BLOOD GLUCOSE TEST) test strip^Test blood sugar(s) 2 times daily. Dx: Type 2 DM - Controlled E11.9 Insulin: No^Disp: 60 Strip^Rfl: 11 ondansetron orally disintegrating (ZOFRAN ODT) 4 mg disintegrating tablet^Take 1 tablet by mouth every 6 hours as needed for nausea/vomiting.^Disp: 20 tablet^Rfl: 1 ONETOUCH DELICA LANCETS 30 gauge^TEST BLOOD SUGAR(S) TEST BLOOD SUGARS TWICE DAILY. DX: TYPE 2 DM -CONTROLLED E11.9 INSULIN: NO Delecia^Disp: 100 Each^Rfl: 3 Lancets (ONETOUCH ULTRASOFT LANCETS) lancets^Use once daily as directed E11.9^Disp: 100 Each^Rfl: 3 lancets (ONE TOUCH DELICA) 33 gauge^Test [...] DM - Controlled E11.9^Disp: 1 Each^Rfl: 0 Review of Systems: The remainder of the review of systems is negative. PE: 11/20/23 0905 BP: 118/58 Pulse: 94 Resp: 16 SpO2: 99% Gen: A&O, NAD, pale appearing, Pleasant, cooperative HEENT: NT/AC, PERRLA, EOMs intact b/l, nares clear and patent b/l, pharynx without erythema, exudate or lesions. Uvula midline. MMM, EACs without erythema or debris. TMs pearly navas with intact landmarks b/l. Neck: supple, No cervical LAD, no thyromegaly, no carotid bruits CV: RRR, normal S1 and S2, no murmurs, no gallops, no rubs, Pulses 2+ and symmetric in UE and LE b/l Lungs: normal respiratory effort, CTA b/l, no wheezing or rhonchi or rales Abd: soft, NT, ND, +BS, no hepatosplenomegaly MS: see below Neuro: CN II-XII intact b/l, muscle weakness of arms and legs, gait is slowed and slightly unsteadywithout use of her walker- using her walker for gait, DTRs 2/4 UE and LE, sensation intact. Skin: warm, dry, intact, No rashes or lesions on exposed skin. Foot exam: Monofilament wnl on right and left feet. Edema legs left >right ASSESSMENT/PLAN: 1. Controlled type 2 diabetes mellitus without complication, without long-term current use of insulin (HCC) - ICD9: 250.00, ICD10: E11.9 (primary diagnosis) - Controlled - Decrease metformin Need to follow up in 1 month in the office- may also need to stop her sulfonylurea medication as well. - METFORMIN 500 MG TABLET 2. S/P colectomy - ICD9: V45.89, ICD10: Z90.49 See above. Needs to follow up with Head Porter as well as Oncologist. Hx of colon cancer s/pright colectomy partial. She is having muscle weakness and weight loss after her recent hospitalization and colitis diagnosis. She isn't tolerated the ciprofloxacin and metronidazole medication and oral iron option. Needs to consider PT 3. Bilateral lower extremity edema - ICD9: 782.3, ICD10: R60.0 See above Having duplex US today of legs 4. Vitamin B12 deficiency - ICD9: 266.2, ICD10: E53.8 Getting IM 5. Hypokalemia - ICD9: 276.8, ICD10: E87.6 See above. Needs to follow up with Head Porter as well as Oncologist. Hx of colon cancer s/pright colectomy partial. She is having muscle weakness and weight loss after her recent hospitalization and colitis diagnosis. She isn't tolerated the ciprofloxacin and metronidazole medication and oral iron option. Needs to consider PT 6. Colon neoplasm - ICD9: 239.0, ICD10: D49.0 See above. Needs to follow up with Head Porter as well as Oncologist. Hx of colon cancer s/pright colectomy partial. She is having muscle weakness and weight loss after her recent hospitalization and colitis diagnosis. She isn't tolerated the ciprofloxacin and metronidazole medication and oral iron option. Needs to consider PT 7. Hypothyroidism, acquired - ICD9: 244.9, ICD10: E03.9 - Instructed patient on importance of taking on an empty stomach either first thing in the morning or at bedtime. - LEVOTHYROXINE 150 MCG TABLET 8. Weight loss - ICD9: 783.21, ICD10: R63.4 See above. Needs to follow up with Head Porter as well as Oncologist. Hx of colon cancer s/pright colectomy partial. She is having muscle weakness and weight loss after her recent hospitalization and colitis diagnosis. She isn't tolerated the ciprofloxacin and metronidazole medication and oral iron option. Needs to consider PT 9. Muscle weakness - ICD9: 728.87, ICD10: M62.81 See above. Needs to follow up with Head Porter as well as Oncologist. Hx of colon cancer s/pright colectomy partial. She is having muscle weakness and weight loss after her recent hospitalization and colitis diagnosis. She isn't tolerated the ciprofloxacin and metronidazole medication and oral iron option. Needs to consider PT 10. Gait abnormality - ICD9: 781.2, ICD10: R26.9 See above. Needs to follow up with Head Porter as well as Oncologist. Hx of colon cancer s/pright colectomy partial. She is having muscle weakness and weight loss after her recent hospitalization and colitis diagnosis. She isn't tolerated the ciprofloxacin and metronidazole medication and oral iron option. Needs to consider PT Jeff Simeon DO I spent 45 minutes in the visit, with more than 50% of the total jgvl-oa-aivj time of the visit in counseling / coordination of care. To ER if develops chest pain, shortness of breath, or severe worsening of symptoms. Discussed risks, benefits, alternatives, and potential side effects of medications. Patient expressed understanding and agreed with the plan. Jeff Simeon DO [id number] [place] [address] documented in this encounterMount [facility]10-02-2024 Telephone encounter Note * Telephone Encounter - Nell Perez MA - 11/14/2023 2:49 PM EDT Pt informed, verbalized understanding. Pt reports she will discuss these results with Dr. Simeon at her upcoming appt on 11/19. She takes b12 shot every other Sunday. Doesn't take Vitamin D or Iron supplement. Reports she is deathly allergic to these. Nell Perez MA [facility]10-02-2024 Miscellaneous Notes* Telephone Encounter - Nell Perez MA - 11/14/2023 2:49 PM EDT Pt informed, verbalized understanding. Pt reports she will discuss these results with Dr. Simeon at her upcoming appt on 11/19. She takes b12 shot every other Sunday. Doesn't take Vitamin D or Iron supplement. Reports she is deathly allergic to these. Nell Perez MA * Telephone Encounter - Karson Woodward APRN.CNP - 11/14/2023 2:33 PM EDT Please let her know I received her lab results. Her labs do show some malnutrition, just slightly moreso than previous. Her potassium level is a little low. I'd like her to repeat it in about 2 weeks. Her thyroid levels are a little low, but comparable to previous, and I know this is where Dr. Simeon likes her to be, so no changes are necessary in her medications. A1C diabetes level has improved from 6.4 to 5.9. Vitamin B12 level is elevated-does she take a supplement for this? Vitamin D level is low-does she take a supplement for this? Iron is low. Does she take a supplement for this? Karson Woodward APRN.CNP documented in this encounterMount Carmel Health System10-02-2024 Telephone encounter Note * Telephone Encounter - Karson Woodward APRN.CNP - 11/14/2023 2:33 PM EDT Please let her know I received her lab results. Her labs do show some malnutrition, just slightly moreso than previous. Her potassium level is a little low. I'd like her to repeat it in about 2 weeks. Her thyroid levels are a little low, but comparable to previous, and I know this is where Dr. Simeon likes her to be, so no changes are necessary in her medications. A1C diabetes level has improved from 6.4 to 5.9. Vitamin B12 level is elevated-does she take a supplement for this? Vitamin D level is low-does she take a supplement for this? Iron is low. Does she take a supplement for this? Karson Woodward APRN.CNP [facility]09-30-[facility] Telephone encounter Note* Telephone Encounter - Lani Edmond LPN - 11/12/2023 10:22 AM EDT Prescription Refill Information The patient has been identified by name and date of : Yes Caregiver verified no other encounters exist for this prescription request: Yes Caregiver confirmed with patient/requestor that no other refills are due, in the near future, with this provider at this time: Yes The last office visit in the department: 10/24/2023 Does the patient have a future office visit with this provider/department: Yes Requested Prescriptions Pending Prescriptions Disp Refills levothyroxine (LEVOXYL) 150 mcg tablet 90 tablet 3 Sig: Take 1 tablet by mouth once daily. Take on empty stomach. For Thyroid. Please call pt when sent to pharmacy. Lani Edmond LPN November 12, 2023 10:23 AM [facility]09-30-[facility] Miscellaneous Notes* Telephone Encounter - Lani Edmond LPN - 11/12/2023 10:22 AM EDT Prescription Refill Information The patient has been identified by name and date of : Yes Caregiver verified no other encounters exist for this prescription request: Yes Caregiver confirmed with patient/requestor that no other refills are due, in the near future, with this provider at this time: Yes The last office visit in the department: 10/24/2023 Does the patient have a future office visit with this provider/department: Yes Requested Prescriptions Pending Prescriptions Disp Refills levothyroxine (LEVOXYL) 150 mcg tablet 90 tablet 3 Sig: Take 1 tablet by mouth once daily. Take on empty stomach. For Thyroid. Please call pt when sent to pharmacy. Lani Edmond LPN November 12, 2023 10:23 AM documented in this encounterMount Carmel [facility] System09-30-2024 History of Present illness Narrative* Lani Edmond LPN - 11/12/2023 10:21 AM EDT Patient presents for B-12 injection. Denies any problems at this time. Patient instructed on any SEof medication, verbalized understanding and agreed to proceed with treatment. Tolerated injection well. Lani Edmond LPN documented in this encounterMount [facility]el [facility]09-23-[facility]24 Telephone encounter Note * Telephone Encounter - Janeth Davenport LPN - 11/05/2023 10:26 AM EDT Phoned patient aware rx sent to pharmacy. Patient said she has appt with PCP on 11/20/2023. [facility] Miscellaneous Notes* Telephone Encounter - Janeth Davenport LPN - 11/05/2023 10:26 AM EDT Phoned patient aware rx sent to pharmacy. Patient said she has appt with PCP on 11/20/2023. * Telephone Encounter - Jeff Simeon DO - 11/05/2023 7:54 AM EDT The following approved medication requests have been transmitted electronically. Requested Prescriptions Signed Prescriptions Disp Refills furosemide (LASIX) 40 mg tablet 10 tablet 0 Sig: Take 1 tablet by mouth once daily for 10 days. Authorizing Provider: JEFF SIMEON DO * Telephone Encounter - Lani Edmond LPN - 10/29/2023 9:42 AM EDT Patient here today for B-12 injection. She provided update to her recent hospitalization (follow upwas 10/24/23). She has been able to start taking a small amount of solid food but is still limited. Continues with some shortness of breath and difficulty walking d/t this and pain. Currently reports bigger concern of continued swelling in BLE. 1-2+ pitting edema noted from knees down; worse at ankles and feet. Skin is cool to touch; faint pedal pulses. Encouraged elevation when able, and compression stockings. She is requesting to have additional Lasix called to pharmacy. Please review and advise. Lani Edmond LPN documented in this encounterMount Carmel [facility] System09-23-2024 Telephone encounter Note * Telephone Encounter - Jeff Simeon DO - 11/05/2023 7:54 AM EDT The following approved medication requests have been transmitted electronically. Requested Prescriptions Signed Prescriptions Disp Refills furosemide (LASIX) 40 mg tablet 10 tablet 0 Sig: Take 1 tablet by mouth once daily for 10 days. Authorizing Provider: JEFF SIMEON DO [facility] Telephone encounter Note* Telephone Encounter - Lani Edmond LPN - 10/29/2023 9:42 AM EDT Patient here today for B-12 injection. She provided update to her recent hospitalization (follow upwas 10/24/23). She has been able to start taking a small amount of solid food but is still limited. Continues with some shortness of breath and difficulty walking d/t this and pain. Currently reports bigger concern of continued swelling in BLE. 1-2+ pitting edema noted from knees down; worse at ankles and feet. Skin is cool to touch; faint pedal pulses. Encouraged elevation when able, and compression stockings. She is requesting to have additional Lasix called to pharmacy. Please review and advise. Lani Edmond LPN [facility] History of Present illness Narrative* Lani Edmond LPN - 10/29/2023 9:31 AM EDT Patient presents for B-12 injection. Denies any problems at this time. Patient instructed on any SEof medication, verbalized understanding and agreed to proceed with treatment. Tolerated injection well. Lani Edmond LPN documented in this encounterMount Carmel Health System09-12-2024 Telephone encounter Note * Telephone Encounter - Nell Perez MA - 10/25/2023 3:18 PM EDT Relayed provider message to Dr. Crystal's nurse. She will contact office with provider response Nell Perez MA [facility]09-[facility]24 Miscellaneous Notes* Telephone Encounter - Nell Perez MA - 10/25/2023 3:18 PM EDT Relayed provider message to Dr. Crystal's nurse. She will contact office with provider response Nell Perez MA * Telephone Encounter - Astrid Larios RN - 10/25/2023 12:39 PM EDT Patricia with Dr. Singh's office calling with message for Karson Woodward CNP. States Dr. Singh feels pt's colitis is unrelated to her cancer diagnosis. Advises that Dr. Crystal, of [facility], be contacted for advise. Please contact Dr. Crystal's office regarding Karson's note below. Please call patient with any updates. Astrid Larios RN * Telephone Encounter - Hank Ruvalcaba RN - 10/25/2023 11:54 AM EDT Patricia- Dr. Singh's oncology office, returned call and given provider's message below. Patricia will talk with Dr. Singh, and call back to nurse with reply. * Telephone Encounter - Barbara Amin MA - 10/25/2023 10:24 AM EDT Message left on nurses machine with Dr. Singh's office to call office back regarding pt. Barbara Amin MA * Telephone Encounter - Karson Woodward APRN.CNP - 10/24/2023 6:27 PM EDT Please contact patient's outside provider oncologist Dr. Singh. Please let him know that I saw her in the office today for hospitalization f/u. Patient was placed on combination tx of metronidazole and cipro upon discharge and states these are too much for her. Wondering if she could stop one or both of the medications or cut back on them. States they make her diarrhea worse and upset her stomach. Karson Woodward APRN.CNP documented in this encounterMount Carmel [facility] System09-12-2024 Telephone encounter Note * Telephone Encounter - Astrid Larios RN - 10/25/2023 12:39 PM EDT Patricia with Dr. Singh's office calling with message for Karson Woodward CNP. States Dr. Singh feels pt's colitis is unrelated to her cancer diagnosis. Advises that Dr. Crystal, of [facility], be contacted for advise. Please contact Dr. Crystal's office regarding Karson's note below. Please call patient with any updates. Astrid Larios RN [facility] Telephone encounter Note* Telephone Encounter - Hank Ruvalcaba, ROBERT - 10/25/2023 11:54 AM EDT Patricia- Dr. Singh's oncology office, returned call and given provider's message below. Patricia will talk with Dr. Singh, and call back to nurse with reply. [facility] Telephone encounter Note* Telephone Encounter - Barbara Amin MA - 10/25/2023 10:24 AM EDT Message left on nurses machine with Dr. Singh's office to call office back regarding pt. Barbara Amin MA [facility] Telephone encounter Note* Telephone Encounter - Karson Woodward APRN.CNP - 10/24/2023 6:27 PM EDT Please contact patient's outside provider oncologist Dr. Singh. Please let him know that I saw her in the office today for hospitalization f/u. Patient was placed on combination tx of metronidazole and cipro upon discharge and states these are too much for her. Wondering if she could stop one or both of the medications or cut back on them. States they make her diarrhea worse and upset her stomach. Karson Woodward APRN.CNP [facility]09-11-2024 Instructions* Patient Instructions* Karson Woodward APRN.CNP - 10/24/2023 2:30 PM EDT Take the furosemide (Lasix, water pill) once daily in the mornings, for 3 days. I sent the prescription for 10 pills, but I only want you to take them for 3 days. I'll let you know once I'm able to speak with Dr. Singh. Elevate your legs as much as you can. Ok to hold off on your pills for this evening. I'll have labs ordered for you to have completed just prior to your visit with Dr. Simeon. Make sure you're getting plenty of water to drink. documented in this encounterMount Carmel Health System09-11-2024 History of Present illness Narrative* Karson Woodward APRN.CNP - 10/24/2023 2:03 PM EDT Transitional Care Management Progress Note The patients TCM visit was performed within the 7 days of discharge. Patient's Date of discharge: 10/18/2023 Date of initial coordinator contact after discharge: N/A Discharge diagnosis: acute colitis in the setting of colon cancer Medication review completed Yes Karson Woodward APRN.ELECTRICAL ENGINEERING DIRECTOR Provider Documentation: In follow-up of hospitalization, Nguyen Queen is a 78 year old female with the chief complaint of hospital follow up for colitis. Underwent colonoscopy and EGD by Dr. Crystal. Findings in colon suspicious for malignancy, biopsy results not yet available. Has been able to eat just a little bit-pancake, chicken noodle soup, not much of an appetite. Is still getting brownish/bloody diarrhea, stool never gets hard. A few times hasn't been able to get to the toilet in time. Does overall seem to be improving somewhat. Denies pain in her abdomen. Wondering if she can stop or cut back on her antibiotics-metronidazole and cipro-states these are too much for her and make her feel sick, make her diarrhea much worse. Swelling to both of her legs from thighs down to feet. Started the day after she left the hospital.Has been trying to elevate her feet when able. I have reviewed the patient s last hospital course including diagnostic testing performed during this hospitalization, their discharge medications, and my assessment and plan with the patient and anyfamily members present at today s visit. HPI: States she has an infection in her colon. Came home from the hospital on 10/17 and did not have swelling in her legs, feet, ankles at that time. PAST MEDICAL HISTORY: Reviewed and updated ALLERGIES: Reviewed and updated MEDICATIONS: Reviewed and updated SOCIAL HISTORY: Reviewed and updated FAMILY HISTORY: Reviewed and updated REVIEW OF SYSTEMS: All other systems reviewed and negative, other than HPI. PHYSICAL EXAMINATION BP 104/58 Pulse 84 Resp 16 Wt 178 lb 9.6 oz (81.0kg) SpO2 100% General appearance: well appearing, alert, in no acute distress, and well- hydrated, well nourished,motor and sensory appear to be normal Lungs: clear to auscultation no wheezing or rhonchi Heart: RRR without murmur, gallop, or rubs. No ectopy Abdomen: Normal abdominal exam, Abdomen soft, non-tender. Bowel sounds normal. No masses, organomegaly Extremities: 3+ pitting edema to BLE from thighs down 1. I have reviewed the patient record including associated test results during the last hospitalization Yes 2. I have reviewed Lab test Yes 3. I have reviewed Radiology test Yes 4. I reviewed assessment/plan with the patient/family member Yes ASSESSMENT/PLAN: 1. Bilateral lower extremity edema - ICD9: 782.3, ICD10: R60.0 (primary diagnosis) Suspect secondary to IVF while hospitalized Furosemide burst x3 days Elevate feet as much as possible Make sure getting at least 64oz of water daily - FUROSEMIDE 40 MG TABLET 2. S/P colectomy - ICD9: V45.89, ICD10: Z90.[address] Singh patient's oncologist in regards to combo of metronidazole and cipro being toomuch for her to handle and request recommendations from there. 3. Colon neoplasm - ICD9: 239.0, ICD10: D49.[address] Singh patient's oncologist in regards to combo of metronidazole and cipro being toomuch for her to handle and request recommendations from there. 4. Colitis - ICD9: 558.9, ICD10: K52.[address] Singh patient's oncologist in regards to combo of metronidazole and cipro being toomuch for her to handle and request recommendations from there. 5. Hypothyroidism, acquired - ICD9: 244.9, ICD10: E03.9 - THYROID STIMULATING HORMONE - T4 FREE/FREE THYROXINE 6. 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 Vitamin B12 deficiency - ICD9: 266.2, ICD10: E53.8 - VITAMIN B12 8. Vitamin D deficiency - ICD9: 268.9, ICD10: E55.9 - VITAMIN D 25 HYDROXY 9. Iron deficiency - ICD9: 280.9, ICD10: E61.1 - COMPLETE BLOOD COUNT - IRON AND TIBC - FERRITIN Karson Woodward APRN.CNP October 24, 2023 2:03 PM documented in this encounterMount [facility]el [facility] System09-03-2024 Miscellaneous Notes* Telephone Encounter - Lani Edmond LPN - 10/16/2023 9:33 AM EDT Prescription Refill Information The patient has been identified by name and date of : Yes Caregiver verified no other encounters exist for this prescription request: Yes Caregiver confirmed with patient/requestor that no other refills are due, in the near future, with this provider at this time: Yes The last office visit in the department: 06/25/23 Does the patient have a future office visit with this provider/department: Yes Requested Prescriptions Pending Prescriptions Disp Refills lancets 30 gauge 50 Each 3 Sig: Use with blood glucose test once daily Delcia plus Lani Edmond LPN October 16, 2023 9:35 AM documented in this encounterMount Carmel [facility] System09-03-2024 Telephone encounter Note * Telephone Encounter - Lani Edmond LPN - 10/16/2023 9:33 AM EDT Prescription Refill Information The patient has been identified by name and date of : Yes Caregiver verified no other encounters exist for this prescription request: Yes Caregiver confirmed with patient/requestor that no other refills are due, in the near future, with this provider at this time: Yes The last office visit in the department: 06/25/23 Does the patient have a future office visit with this provider/department: Yes Requested Prescriptions Pending Prescriptions Disp Refills lancets 30 gauge 50 Each 3 Sig: Use with blood glucose test once daily Delcia plus Lani Edmond LPN October 16, 2023 9:35 AM [facility] History of Present illness Narrative* Lani Edmond LPN - 10/16/2023 9:14 AM EDT Patient presents for B-12 injection. Denies any problems at this time. Patient instructed on any SEof medication, verbalized understanding and agreed to proceed with treatment. Tolerated injection well. Lani Edmond LPN documented in this encounterMount Carmel Health System08-21-2024 Telephone encounter Note * Telephone Encounter - Anju Sánchez PA-C - 10/03/2023 3:34 PM EDT Noted Anju Sánchez PA-C [facility] Miscellaneous Notes* Telephone Encounter - Anju Sánchez PA-C - 10/03/2023 3:34 PM EDT Noted Anju Sánchez PA-C * Telephone Encounter - Lani Edmond LPN - 10/01/2023 9:28 AM EDT Patient provided update about how she is doing. She has had to stop taking additional supplement drink d/t increased abdominal pain and diarrhea. She is still using Activia yogurt. Has seen specialist and a CT has been ordered (appt next week to complete). She is aware that if pain is extreme enough she is to go to the ER. Lani Edmond LPN documented in this encounterMount Carmel [facility] System08-19-2024 Telephone encounter Note * Telephone Encounter - Lani Edmond LPN - 10/01/2023 9:28 AM EDT Patient provided update about how she is doing. She has had to stop taking additional supplement drink d/t increased abdominal pain and diarrhea. She is still using Activia yogurt. Has seen specialist and a CT has been ordered (appt next week to complete). She is aware that if pain is extreme enough she is to go to the ER. Lani Edmond LPN [facility] History of Present illness Narrative* Lani Edmond LPN - 10/01/2023 9:27 AM EDT Patient presents for B-12 injection. Denies any problems at this time. Patient instructed on any SEof medication, verbalized understanding and agreed to proceed with treatment. Tolerated injection well. Lani Edmond LPN documented in this encounterMount Carmel Health System08-05-2024 History of Present illness Narrative* Lani Edmond LPN - 09/17/2023 10:05 AM EDT Patient presents for B-12 injection. Denies any problems at this time. Patient instructed on any SEof medication, verbalized understanding and agreed to proceed with treatment. Tolerated injection well. Lani Edmond LPN documented in this encounterMount Carmel Health System07-23-2024 Telephone encounter Note * Telephone Encounter - Lani Edmnod LPN - 09/04/2023 9:23 AM EDT Patient scheduled for nurse visit 09/18/23 to receive B-[address] order at this time. Lani Edmond LPN [facility] Miscellaneous Notes* Telephone Encounter - Lani Edmond LPN - 09/04/2023 9:23 AM EDT Patient scheduled for nurse visit 09/18/23 to receive B-[address] order at this time. Lani Edmond LPN documented in this encounterMount Carmel Health System07-22-2024 History of Present illness Narrative* Lani Edmond LPN - 09/03/2023 10:06 AM EDT Patient presents for B-12 injection. Denies any problems at this time. Patient instructed on any SEof medication, verbalized understanding and agreed to proceed with treatment. Tolerated injection well. Lani Edmond LPN documented in this encounterMount Carmel Health System07-08-2024 History of Present illness Narrative* Lani Edmond LPN - 08/20/2023 9:37 AM EDT Patient presents for B-12 injection. Denies any problems at this time. Patient instructed on any SEof medication, verbalized understanding and agreed to proceed with treatment. Tolerated injection well. Lani Edmond LPN documented in this encounterMount Carmel Health System06-25-2024 History of Present illness Narrative* Lani Edmond LPN - 08/07/2023 10:15 AM EDT Patient presents for B-12 injection. Denies any problems at this time. Patient instructed on any SEof medication, verbalized understanding and agreed to proceed with treatment. Tolerated injection well. Lani Edmond LPN documented in this encounterMount Carmel Health System06-05-2024 Telephone encounter Note * Telephone Encounter - Megan Ellis RN - 07/18/2023 12:49 PM EDT Patient has been identified by name and date of : Yes, Provider Date Time Patient phones for refill(s): Requested Prescriptions Pending Prescriptions Disp Refills blood sugar diagnostic (BLOOD GLUCOSE TEST) test strip 60 Strip 11 Sig: Test blood sugar(s) 2 times daily. Dx: Type 2 DM - Controlled E11.9 Insulin: No Date of last office visit in primary care: 06/25/2023 Date of next office visit in primary care: 08/07/2023 Please advise. Thank you. Megan Ellis RN. [facility] Miscellaneous Notes* Telephone Encounter - Megan Ellis RN - 07/18/2023 12:49 PM EDT Patient has been identified by name and date of : Yes, Provider Date Time Patient phones for refill(s): Requested Prescriptions Pending Prescriptions Disp Refills blood sugar diagnostic (BLOOD GLUCOSE TEST) test strip 60 Strip 11 Sig: Test blood sugar(s) 2 times daily. Dx: Type 2 DM - Controlled E11.9 Insulin: No Date of last office visit in primary care: 06/25/2023 Date of next office visit in primary care: 08/07/2023 Please advise. Thank you. Megan Ellis RN. documented in this encounterMount Carmel Health System06-04-2024 History of Present illness Narrative* Lani Edmond LPN - 07/17/2023 9:49 AM EDT Patient presents for B-12 injection. Denies any problems at this time. Patient instructed on any SEof medication, verbalized understanding and agreed to proceed with treatment. Tolerated injection well. Lani Edmond LPN documented in this encounterMount Carmel Health System05-29-2024 History of Present illness Narrative* Sharyn Rodriguez PA-C - 07/11/2023 12:14 PM EDT This note was created using NoteWriter. Subjective Nguyen Queen is a 78 year old female. HPI Patient presents with bilateral ear feeling clogged. Her left is worse than right. She has a history of getting wax buildup in her ears. Denies any new cough or congestion. No fever. No drainage fromthe ears. No recent swimming. Review of Systems Constitutional: Negative. HENT: Positive for hearing loss. Negative for ear discharge and ear pain. Eyes: Negative. Respiratory: Negative. Cardiovascular: Negative. Gastrointestinal: Negative. Genitourinary: Negative. Musculoskeletal: Negative. All other systems reviewed and are negative. PAST MEDICAL HISTORY Diagnosis Date Advance care planning 08/24/2021 [facility] Diabetes mellitus, type 2 (HCC) Environmental allergies Hyperlipidemia Hypothyroidism, unspecified Liver failure (HCC) 2004 unsure of cause Migraine headache onset age 7 Current Outpatient Medications Medication Sig Dispense Refill fexofenadine (VALENTINA) 180 mg tablet Take 1 tablet by mouth once daily. 90 tablet 3 losartan (COZAAR) 50 mg tablet Take 1 tablet by mouth once daily. 90 tablet 3 glimepiride (AMARYL) 2 mg tablet Take 1 tablet by mouth daily with breakfast. 90 tablet 3 lancets 30 gauge Use with blood glucose test once daily Delcia plus 50 Each 3 ondansetron orally disintegrating (ZOFRAN ODT) 4 mg disintegrating tablet Take 1 tablet by mouth every 6 hours as needed for nausea/vomiting. 20 tablet 1 metFORMIN (GLUCOPHAGE) 500 mg tablet Take 2 tablets by mouth two times a day with meals. 360 tablet3 ONETOUCH DELICA LANCETS 30 gauge TEST BLOOD SUGAR(S) TEST BLOOD SUGARS TWICE DAILY. DX: TYPE 2 DM -CONTROLLED E11.9 INSULIN: NO Delecia 100 Each 3 Lancets (ONETOUCH ULTRASOFT LANCETS) lancets Use once daily as directed E11.9 100 Each 3 levothyroxine (LEVOXYL) 150 mcg tablet Take 1 tablet by mouth once daily. Take on empty stomach. For Thyroid. 90 tablet 3 blood sugar diagnostic (BLOOD GLUCOSE TEST) test strip Test blood sugar(s) 2 times daily. Dx: Type 2 DM - Controlled E11.9 Insulin: No 60 Strip 11 famotidine (PEPCID ORAL) Take 10 mg by mouth once daily. lancets (ONE TOUCH DELICA) 33 gauge Test blood sugar(s) twice daily. Dx: Type 2 DM - Controlled E11.9 Insulin: No 1 Each 11 blood sugar diagnostic (ONETOUCH ULTRA TEST [...] Take 325 mg by mouth twice daily. Current Facility-Administered Medications Medication Dose Route Frequency Provider Last Rate Last Admin cyanocobalamin 1,000 mcg injection 1,000 mcg INTRAMUSCULAR q 2 WEEKS Jeff Simeon DO 1,000 mcg at 06/25/23 1513 PAST SURGICAL HISTORY Procedure Laterality Date BREAST BIOPSY NEEDLE LEFT 12/31/2014 x 2, Dr. Ronquillo COLONOSCOPY FLX DX W/COLLJ SPEC WHEN PFRMD 08/25/2003 adenomatous polyp and diverticulosis. [facility] COLONOSCOPY FLX DX W/COLLJ SPEC WHEN PFRMD 09/28/2006 No polyps found. 5 yr recall. [facility] COLONOSCOPY FLX DX W/COLLJ SPEC WHEN PFRMD 02/26/2018 Colonoscopy ESOPHAGOGASTRODUODENOSCOPY TRANSORAL DIAGNOSTIC 08/31/2003 Unremarkable, negative biopsies. [facility] ESOPHAGOGASTRODUODENOSCOPY TRANSORAL DIAGNOSTIC 02/26/2018 EGD LAPAROSCOPIC CHOLECYSTECTOMY 04/05/2022 REMV CATARACT EXTRACAP,INSERT LENS Bilateral TONSILLECTOMY HX FAMILY HISTORY Adopted: Yes Social History Tobacco Use Smoking status: Never Smokeless tobacco: Never Vaping Use Vaping Use: Never used Substance Use Topics Alcohol use: No Drug use: No Objective BP 142/82 Pulse 72 Temp 36.4 C (97.6 F) (Tympanic) Resp 18 Wt 78.3 kg (172 lb 9.9 oz) SpO2 99% BMI 30.58 kg/m Physical Exam Vitals reviewed. Constitutional: Appearance: Normal appearance. HENT: Head: Normocephalic and atraumatic. Right Ear: There is impacted cerumen. Left Ear: There is impacted cerumen. Mouth/Throat: Mouth: Mucous membranes are moist. Pharynx: Oropharynx is clear. Cardiovascular: Rate and Rhythm: Normal rate and regular rhythm. Heart sounds: Normal heart sounds. Pulmonary: Effort: Pulmonary effort is normal. Breath sounds: Normal breath sounds. Musculoskeletal: Cervical back: Neck supple. Lymphadenopathy: Cervical: No cervical adenopathy. Skin: General: Skin is warm and dry. Findings: No rash. Neurological: General: No focal deficit present. Mental Status: She is alert and oriented to person, place, and time. Assessment and Plan ASSESSMENT/PLAN: 1. Bilateral impacted cerumen - ICD9: 380.4, ICD10: H61.23 Cerumen was flushed here by nursing staff. Upon reexamination TMs are intact bilaterally and cerumen has been removed. Patient hearing much improved. - AMBULATORY EAR LAVAGE/IRRIGATION Sharyn Rodriguez PA-C documented in this encounterMount Carmel Health System05-29-2024 Nurse Note* Kelsey Rojas MA - 07/11/2023 11:53 AM EDT Ambulatory Ear Lavage Pre-treatment: Warm water Treatment: Both ears Equipment and Irrigation solution and Volume used: Single use syringe with single use irrigation tip Water Return flow appearance: Brown Yellow Patient tolerated procedure: yes Tympanic membrane assessment: Tympanic membrane assessed by LIP pre and post procedure Kelsey Rojas MA [facility] Nurse Note* Kelsey Rojas MA - 07/11/2023 11:53 AM EDT Ambulatory Ear Lavage Pre-treatment: Warm water Treatment: Both ears Equipment and Irrigation solution and Volume used: Single use syringe with single use irrigation tip Water Return flow appearance: Brown Yellow Patient tolerated procedure: yes Tympanic membrane assessment: Tympanic membrane assessed by LIP pre and post procedure Kelsey Rojas MA documented in this encounterMount Carmel Health System05-22-2024 History of Present illness Narrative* Jeff Simeon DO - 07/04/2023 8:57 PM EDT Patient presents with: F/U 3 Month HPI: Nguyen Queen is a 78 year old female who presents to the office today for review of health conditions. Concerns today: Recently had surgery to remove right ascending colon and diagnosed with colon cancer. She had surgery by DR. Ballard. She is seeing Dr. Singh as oncologist for care. She is unsure if she will need any further future surgery or chemo etc. She is working on her diet and being able to eat food that she can tolerate. Was told needs to avoid most vegetables and fresh fruits. She is slowly adding some meat into her diet but mostly only if shredded meats such as chicken or turkey. She still has fatigue but energy is slowing improving as well. Ms. Queen has past history of diabetes. [...] HgA1C was Hemoglobin A1C (%) Date Value 06/20/2023 6.4 02/28/2023 6.5 02/15/2021 7.3 08/17/2020 7.0 ) Last Ophthalmology [...] Last 3 Encounter BP Readings: Date: BP: 06/25/2023 110/60 03/19/2023 110/64 12/08/2022 116/60 She watches her diet for sodium, low fat and low cholesterol some of the time. She does not check BP's generally. Nguyen gets minimal exercise. PAST MEDICAL HISTORY Diagnosis Date Advance care planning 08/24/2021 [facility] Diabetes mellitus, type 2 (HCC) Environmental allergies Hyperlipidemia Hypothyroidism, unspecified Liver failure (HCC) 2005 unsure of cause Migraine headache onset age 7 PAST SURGICAL HISTORY Procedure Laterality Date BREAST BIOPSY NEEDLE LEFT 12/31/2014 x 2, Dr. Ronquillo COLONOSCOPY FLX DX W/COLLJ SPEC WHEN PFRMD 08/25/2003 adenomatous polyp and diverticulosis. [facility] COLONOSCOPY FLX DX W/COLLJ SPEC WHEN PFRMD 09/28/2006 No polyps found. 5 yr recall. [facility]. [facility] COLONOSCOPY FLX DX W/COLLJ SPEC WHEN PFRMD 02/26/2018 Colonoscopy ESOPHAGOGASTRODUODENOSCOPY TRANSORAL DIAGNOSTIC 08/31/2003 Unremarkable, negative biopsies. [facility] ESOPHAGOGASTRODUODENOSCOPY TRANSORAL DIAGNOSTIC 02/26/2018 EGD LAPAROSCOPIC CHOLECYSTECTOMY 04/05/2022 REMV CATARACT EXTRACAP,INSERT LENS Bilateral TONSILLECTOMY HX Social History Tobacco Use Smoking status: Never Smokeless tobacco: Never Vaping Use Vaping Use: Never used Substance Use Topics Alcohol use: No Drug use: No FAMILY HISTORY Adopted: Yes Allergies: ALLERGIES Allergen Reactions Benadryl [Diphenhyd* Swelling Penicillins Shortness of Breath Etqedfq-Iax-Drq Red* Contraindication-Medical Surgical History of liver failure Current Meds: fexofenadine (VALENTINA) 180 mg tablet^Take 1 tablet by mouth once daily.^Disp: 90 tablet^Rfl: 3 losartan (COZAAR) 50 mg tablet^Take 1 tablet by mouth once daily.^Disp: 90 tablet^Rfl: 3 glimepiride (AMARYL) 2 mg tablet^Take 1 tablet by mouth daily with breakfast.^Disp: 90 tablet^Rfl: 3 lancets 30 gauge^Use with blood glucose test once daily Delcia plus^Disp: 50 Each^Rfl: 3 ondansetron orally disintegrating (ZOFRAN ODT) 4 mg disintegrating tablet^Take 1 tablet by mouth every 6 hours as needed for nausea/vomiting.^Disp: 20 tablet^Rfl: 1 metFORMIN (GLUCOPHAGE) 500 mg tablet^Take 2 tablets by mouth two times a day with meals.^Disp: 360 tablet^Rfl: 3 ONETOUCH DELICA LANCETS 30 gauge^TEST BLOOD SUGAR(S) TEST BLOOD SUGARS TWICE DAILY. DX: TYPE 2 DM -CONTROLLED E11.9 INSULIN: NO Delecia^Disp: 100 Each^Rfl: 3 Lancets (ONETOUCH ULTRASOFT LANCETS) lancets^Use once [...] 325 mg by mouth twice daily.^Disp: ^Rfl: Review of Systems: The remainder of the review of systems is negative. PE: 06/25/23 1503 BP: 110/60 Pulse: 80 Resp: 12 Temp: 36.1 C (97 F) TempSrc: Left Tympanic Weight: 76.2 kg (168 lb) Gen: A&O, NAD, non-toxic appearing, Pleasant, cooperative HEENT: NT/AC, PERRLA, EOMs intact b/l, nares clear and patent b/l, pharynx without erythema, exudate or lesions. Uvula midline.MMM Neck: supple, No cervical LAD, no thyromegaly, no carotid bruits CV: RRR, normal S1 and S2, no murmurs, no gallops, no rubs, Pulses 2+ and symmetric in UE and LE b/l Lungs: normal respiratory effort, CTA b/l, no wheezing or rhonchi or rales Abd: soft, mild distension, healing scar abdominal wall without signs of infection MS: FROM all 4 extremities Neuro: CN II-XII intact b/l, strength 5/5 b/l UE and LE, DTRs 2/4 UE and LE, sensation intact. Skin: warm, dry, intact, No rashes or lesions on exposed skin. Foot exam: Monofilament wnl on right and left feet. ASSESSMENT/PLAN: 1. Essential hypertension with goal blood pressure less than 130/80 - ICD9: 401.9, ICD10: I10 (primary diagnosis) - Controlled - Continue current medications - Recommend home blood pressure monitoring, to bring results to next visit - Encouraged sodium restriction, DASH or Mediterranean diet - Recommend regular aerobic exercise - Discussed need for and benefit of weight loss. BMI 29.76 kg/(m^2) 2. 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 Hypertriglyceridemia - ICD9: 272.1, ICD10: E78.1 - Improving control - Counseled on healthy diet and regular exercise 4. Vitamin B12 deficiency - ICD9: 266.2, ICD10: E53.8 Continue supplement 5. Malabsorption syndrome - ICD9: 579.9, ICD10: K90.9 Secondary to to partial colectomy 6. Fatty liver - ICD9: 571.8, ICD10: K76.0 Continue dietary changes and weight loss. 7. Hypothyroidism, acquired - ICD9: 244.9, ICD10: E03.9 - Instructed patient on importance of taking on an empty stomach either first thing in the morning or at bedtime. 8. Colon neoplasm - ICD9: 239.0, ICD10: D49.0 F/u with surgeon and oncologist Dr. Singh 9. S/P colectomy - ICD9: V45.89, ICD10: Z90.49 F/u with surgeon and oncologist Dr. Samantha Simeon, DO To ER if develops chest pain, shortness of breath, or severe worsening of symptoms. Discussed risks, benefits, alternatives, and potential side effects of medications. Patient expressed understanding and agreed with the plan. Jeff Simeon DO [address] [place] [address] documented in this encounterMount [facility]05-13-2024 Instructions* Patient Instructions* Jeff Simeon DO - 06/25/2023 4:08 PM EDT Two good brand probiotic drinks with 10-20 grams of protein and probiotic in it Peanut butter powder (PB2)- can add water to it to make peanut butter documented in this encounterMount Carmel Health System05-10-2024 Telephone encounter Note * Telephone Encounter - Pebbles Molina LPN - 06/22/2023 11:14 AM EDT Pt. informed. [facility] Miscellaneous Notes* Telephone Encounter - Pebbles Reno LPN - 06/22/2023 11:14 AM EDT Pt. informed. * Telephone Encounter - Karson Woodward APRN.CNP - 06/22/2023 7:16 AM EDT Please let her know that there are no acute concerns with her lab work, she can discuss this in more detail at her upcoming appt with Dr. Simeon. Karson Woodward APRN.CNP documented in this encounterMount Carmel Health System05-10-2024 Telephone encounter Note * Telephone Encounter - Karson Woodward APRN.CNP - 06/22/2023 7:16 AM EDT Please let her know that there are no acute concerns with her lab work, she can discuss this in more detail at her upcoming appt with Dr. Simeon. Karson Woodward APRN.ELECTRICAL ENGINEERING DIRECTOR [facility]05-06-2024 Telephone encounter Note* Telephone Encounter - Pebbles Molina LPN - 06/18/2023 4:55 PM EDT Pt. informed [facility]05-06-[facility]24 Miscellaneous Notes* Telephone Encounter - Pebbles Reno LPN - 06/18/2023 4:55 PM EDT Pt. informed * Telephone Encounter - Jeff Simeon DO - 06/18/2023 4:39 PM EDT Please call patient to let her know that labs are now ordered Jeff Simeon DO * Telephone Encounter - Nguyen Francisco RN - 06/18/2023 12:07 PM EDT Please call Pt once labs have been ordered. * Telephone Encounter - Johnson Zee - 06/18/2023 7:50 AM EDT Patient is requesting lab work for appointment on 06/25/2023. Patient came in this morning and would like to come back soon, please advise. Thank you! documented in this encounterMount Carmel Health System05-06-2024 Telephone encounter Note * Telephone Encounter - Jeff Simeon DO - 06/18/2023 4:39 PM EDT Please call patient to let her know that labs are now ordered Jeff Simeon DO [facility] Telephone encounter Note* Telephone Encounter - Nguyen Francisco RN - 06/18/2023 12:07 PM EDT Please call Pt once labs have been ordered. [facility] Telephone encounter Note* Telephone Encounter - Johnson Zee - 06/18/2023 7:50 AM EDT Patient is requesting lab work for appointment on 06/25/2023. Patient came in this morning and would like to come back soon, please advise. Thank you! [facility] History of Present illness Narrative* Lani Edmond LPN - 06/13/2023 9:54 AM EDT Patient presents for B-12 injection. Denies any problems at this time. Patient instructed on any SEof medication, verbalized understanding and agreed to proceed with treatment. Tolerated injection well. Lani Edmond LPN documented in this encounterMount Carmel Health System04-17-2024 History of Present illness Narrative* Lani Edmond LPN - 05/30/2023 9:25 AM EDT Patient presents for B-12 injection. Denies any problems at this time. Patient instructed on any SEof medication, verbalized understanding and agreed to proceed with treatment. Tolerated injection well. Lani Edmond LPN documented in this encounterMount Carmel [facility] System04-03-2024 History of Present illness Narrative* Lani Edmond LPN - 05/16/2023 9:44 AM EDT Patient presents for B-12 injection. Denies any problems at this time. Patient instructed on any SEof medication, verbalized understanding and agreed to proceed with treatment. Tolerated injection well. Lani Edmond LPN documented in this encounterMount Carmel Health System03-20-2024 History of Present illness Narrative* Lani Edmond LPN - 05/02/2023 9:05 AM EDT Patient presents for B-12 injection. Denies any problems at this time. Patient instructed on any SEof medication, verbalized understanding and agreed to proceed with treatment. Tolerated injection well. Lani Edmond LPN documented in this encounterMount Carmel Health System03-04-2024 History of Present illness Narrative* Lani Edmond LPN - 04/16/2023 3:07 PM EST Patient presents for B-12 injection. Denies any problems at this time. Patient instructed on any SEof medication, verbalized understanding and agreed to proceed with treatment. Tolerated injection well. Lani Edmond LPN documented in this encounterMount Carmel Health System02-21-2024 History of Present illness Narrative* Lani Edmond LPN - 04/04/2023 9:36 AM EST Patient presents for B-12 injection. Denies any problems at this time. Patient instructed on any SEof medication, verbalized understanding and agreed to proceed with treatment. Tolerated injection well. Lani Edmond LPN documented in this encounterMount Carmel [facility] System02-08-2024 History of Present illness Narrative* Lani Edmond LPN - 03/22/2023 10:07 AM EST Patient presents for B-12 injection. Denies any problems at this time. Patient instructed on any SEof medication, verbalized understanding and agreed to proceed with treatment. Tolerated injection well. Lani Edmond LPN documented in this encounterMount Carmel Health System02-05-2024 History of Present illness Narrative* Karson Woodward APRN.ELECTRICAL ENGINEERING DIRECTOR - 03/19/2023 10:49 AM EST Transitional Care Management Progress Note The patients TCM visit was performed within the 14 days of discharge. Patient's Date of discharge: 03/11/2023 Date of initial coordinator contact after discharge: NA Discharge diagnosis: peritoneal abscess Medication review completed Yes Karson Woodward APRN.ELECTRICAL ENGINEERING DIRECTOR Provider Documentation: In follow-up of hospitalization, Nguyen Queen is a 77 year old female with the chief complaint of hospital follow up peritoneal abscess. I have reviewed the patient s last hospital course including diagnostic testing performed during this hospitalization, their discharge medications, and my assessment and plan with the patient and anyfamily members present at today s visit. HPI: Currently- Improving overall. Yesterday was very nauseated. Appetite is so-so. Eating small amounts-eating applesauce, yogurt, crackers. Wasn't nauseated in the hospital but has been since she came home. Wasn'tgiven anything for nausea but thinks she may [...] days from now. Seeing Dr. Singh through [facility]. PAST MEDICAL HISTORY: Reviewed and updated ALLERGIES: Reviewed and updated MEDICATIONS: Reviewed and updated SOCIAL HISTORY: Reviewed and updated FAMILY HISTORY: Reviewed and updated REVIEW OF SYSTEMS: All other systems reviewed and negative, other than HPI. PHYSICAL EXAMINATION BP 110/64 Pulse 85 Resp 16 Wt 168 lb 3.2 oz (76.3kg) SpO2 95% General appearance: well appearing, alert, in no acute distress, and well- hydrated, well nourished,motor and sensory appear to be normal Lungs: [...] R11.0 - ONDANSETRON 4 MG DISINTEGRATING TABLET Karson Woodward APRN.CNP March 19, 2023 10:50 AM documented in this encounterMount Carmel [facility] System02-01-2024 History of Present illness Narrative* Tiffany Lang RN - 03/15/2023 12:02 PM EST TCM Home Visit Referral Source of Stratification: [facility] Admission Status: Discharged Readmission Risk Score: N/A CHRISTIAN Score: N/A Patient meets program referral criteria: No Patient does not qualify for High Risk TCM Home Visit program due to: Discharged home, does not meet program criteria Tiffany Lang RN March 15, 2023 12:02 PM TRANSITIONAL [...] concerns at this time Upcoming appointments PCP / Copied from Care Everywhere [facility] 03/05-03/11 Retrocecal abscess, Right lower quadrant abdominal pain Hospital Course: Patient was admitted with right-sided abdominal pain. CT revealed fluid collection on the right andpossible perforated cecal mass. Patient was taken for surgery and she had a right hemicolectomy. There was a perforated mass withabscess. Drain was left in place and patient was admitted with broad-sp ectrum antibiotics. Once she started passing flatus she [...] FOR 5 DAYS SUMMARY: Discharge Network Status: Ffu-io-Avhkncm (OON) Discharge Pt discharged from [facility] on 03/11/23. Admitted for: Right lower quadrant abdominal pain, retrocecal abscess, right hemicolectomy Contact made with patient: Yes Hi my name is Tiffany Lang RN and I am calling from the [facility] on behalf of your PCP, Jeff Simeon, DO I understand you were recently in [...] like to speak with a social work master steam yacht to help give you support for any [...] provider to ensure you have safely transitioned home.If you are agreeable, I will send your request to a assistant director of residence life who will contact and assist you with that appointment. This will give you an opportunity to ask any questions or address any concerns youmay have with your PCP. Inform the patient [...] unless instructed to do so. For any non- emergency symptoms, call your Doctor s office to get instructions on how to manage (we might recommend a telephone or virtualvisit). For emergency symptoms, proceed to Emergency Department as usual but inform them of cough and fever symptoms COLLINS if present (or call on the way if possible). KELLEY Education Ordered -: No MARIN Lindsay, cotton farmer Bsw [facility] documented in this encounterMount Carmel Health System01-27-2024 Progress note Author Jameson Snell [facility] March 10, 2023 1:36pm Note Date/Time March 10, 2023 1 :36pm [facility] Medical Records Department [address] [place] [address] Progress Note - Hospitalist 03/10/23 1329 MR#: [id number] Acct: [id number] Name: NGUYEN QUEEN Rep #:[id number] : 1945 77 From: Jameson Martinez PCP: Dr. Jeff Simeon, DO Status:AD IN [facility] Reason for Visit Reason for Visit: Diagnoses Peritoneal abscess (03/05/23) Right lower quadrant pain (03/05/23) Objective Data Objective Data Vital Signs: Vital Signs Temp Pulse Resp BP Pulse Ox O2 Del Method O2 Flow Rate 97.8 F 92 17 134/60 H 98 Room Air 8 03/10/23 09:25 03/10/23 09:25 03/10/23 09:25 03/10/23 09:25 03/10/23 09:25 03/10/23 09:42 03/06/23 19:30 Oxygen Flow Rate (L/min) 8 Oxygen Delivery Method Room Air Weight: 174 lb 14.389 oz Body Mass Index (BMI) 30.9 Intake & Output: Intake and Output for Last 24 Hours 03/08/23 03/09/23 03/10/23 23:59 23:59 23:59 Intake Total 2291.66 / 2291.66 2924.17 / 2924.17 1072.08 / 1072.08 Output Total 130 / 130 90 / 90 55 / 55 Balance 2161.66 / 2161.66 2834.17 / 2834.17 1017.08 / 1017.08 Lab / Micro Data 03/10/23 07:46 03/10/23 07:46 Labs: Laboratory Results - last 24 hr 03/06/23 19:37: Miscellaneous Cytology SEE PATHOLOGY REPORT 03/09/23 17:52: POC Glucose 144 H 03/09/23 23:04: POC Glucose 144 H 03/10/23 05:33: POC Glucose 123 H 03/10/23 07:46: WBC 9.6, RBC 3.59 L, Hgb 7.8 L, Hct 26.5 L, MCV 73.8 L, MCH 21.7L, MCHC 29.4 L, RDW Std Deviation 37.6, RDW Coeff of Anand 14.0, Plt Count 506 H, MPV 9.1, Immature Gran % (Auto) 2.800 H, Neut % (Auto) 62.9, Lymph % (Auto) 15.5L, [place] % (Auto) 6.9, Eos % (Auto) 11.3 H, Baso % (Auto) 0.6, Absolute Neuts (auto) 6.1, Absolute Lymphs (auto) 1.49, Nucleated RBC % 0, Sodium 137, Potassium 4.2, Chloride 111 H, Carbon Dioxide 24.0, Anion Gap 2 L, BUN 21 H, Creatinine 0.48 L, Estim Creat Clear Calc 60.60, Est GFR (MDRD) Af Amer 161, EstGFR (MDRD) Non-Af 133, BUN/Creatinine Ratio 43.6 H, Glucose 123 H, Calcium 8.5 03/10/23 11:59: POC Glucose 164 H Micro: Microbiology 03/06/23 19:37 Aspirate - Abdominal Gram Stain - Final 03/06/23 19:37 Aspirate - Abdominal Wound Culture - Final Escherichia coli Escherichia coli#2 03/06/23 19:37 Aspirate - Abdominal Anaerobic Culture - Preliminary Checking for anaerobes, further studies to follow. Physical Exam Narrative Seen and examined. Mild expected surgical abdominal pain near the incision site. Diet advanced to regular with avoiding red meat, pork, sugar or concentrated sweet. No fever. No hypoxia. Cough is better in the morning. Patient is doing good on incentivespirometry. Patient still has not moved bowels or passing flatus. Physical exam General: Alert, Oriented x3, Cooperative HEENT: Atraumatic, PERRLA, EOMI, Normocephalic Oral: Oral mucosa moist. No Gingival or Mucosal Lesions/ Ulcerations Neck: Supple, No JVD, Negative Carotid Bruits Lungs: Air entry improved over right lung base. No hypoxia or tachypnea. No crepitation/rhonchi. Cardiovascular: Regular rate, Regular Rhythm, Normal S1, Normal S2, No murmurs Abdomen: Soft, mild tenderness present over right lower quadrant. No guarding/rigidity. Bowel sounds more pronounced and better. SUZIE drains containing mainly serous fluid : No renal angle tenderness. No suprapubic tenderness. Extremities: No edema, Capillary Refill Less than 3 Seconds Skin: surgical dressing on right side of abdomen with drain. Musculoskeletal: No Tenderness to Palpation of Joints or Extremities Neurological: Cranial nerves II-XII grossly intact, DTR 2+/4. No acute focal neurological deficit. Psych/Mental Status: Normal Affect, Appropriate. Assessment & Plan Assessment/Plan (1) Retrocecal abscess: PLAN: Plan This 77-year-old woman being consulted for medical management for perioperative management of retrocecal abscess. 1. Right lower quadrant abdominal pain most likely due to retrocecal abscess: She might have developed retrocecal abscess probably after perforation of appendicitis/inflamed appendix or possible perforated diverticulitis with suspicion of possibility of neoplasm: Patient is being taken for surgery today. Currently n.p.o. on empiric IV antibiotics. Continue incentive spirometry. 03/07: Intraoperative findings: Patient had diagnostic laparoscopy converted to open laparotomy, right hemicolectomy with stapled vkfp-ic-qsly ileocolic anastomosis on 03/07/2023. Intraoperative findings were perforated descending colon mass to the retroperitoneum. Retrocecal abscess cavity with foul-smellingpurulent fluid. Thickened colon wall with desmoplastic reaction 20 cm of colon. Segment 6 of the liver was accessible rest was covered adhesions from prior cholecystectomy. No clinical signs of hepatic metastasis On IV antibiotic meropenem. Patient is doing well with pain controlled on clearliquid. Encourage incentive spirometry to decrease chances of pleural effusion/atelectasis and pneumonia. 03/08: Aspirate fluid culture shows E. coli pansensitive but would prefer coverage of gram-negative and anaerobes broad-spectrum. Portable chest x-ray shows right subsegmental atelectasis in right lung base. Patient encouraged incentive spirometry. Mucinex DM added. 03/09: Postop day third. Air entry better on the right lung base and patient encouraged to do incentive spirometry and Pep. No fever. Cough is better. Enoxaparin 40 mg daily added as DVT prophylaxis. PTH cytology negative for malignant cells. E. coli in peritoneal aspirate is pansensitive, ESBL negative. 03/10: Postop day 4. Air entry has improved especially on right lung base. Regular diet Allowed except concentrated sweet/sugar, milk/fats, red meat/pork ordered. Waiting for bowel movement and may remove drain tomorrow. Discussed with the surgeon. Mild decrease in hemoglobin 7.8 from preop 10.0 with low MCV consistent with acute postop blood loss anemia from surgery. No leukocytosis but patient has immature granulocytes 2.8% suggesting of left shift. IV iron infusion ordered. And then oral ferrous sulfate and vitamin C ordered. No indication for PRBC transfusion. 2. Diabetes mellitus type 2: Accu-Chek ACH cover with Humalog sliding scale. Glucose is reasonably controlled, 195 and 147. A1c 6.6. Hold oral hypoglycemicagents as patient is n.p.o. and also going for surgery. 03/07: Glucose about 250s. Increase the dose of Lantus insulin. 03/08: Glucose varies between 170-235. On Lantus insulin. 03/09: Glucose between 153-205. 135 in AM fasting. Lantus insulin dose increased. 03/10 glucose is reasonably well-controlled less than 150. 3. Hypertension: Blood pressure is controlled. At home, patient is on [id number] mg daily. IV hydralazine as needed during n.p.o. status. 03/07: Home medications resumed. Baby aspirin regimen. 4. Hypothyroidism: 03/07: Resume levothyroxine. 5. Other chronic comorbidities include GERD, migraine and rheumatoid arthritis and history of seizure: Patient not on any antiepileptic medications. On baby aspirin. IV PPI 40 mg once daily ordered. 03/07 change IV PPI to oral. VTE prophylaxis bilateral SCDs. Postop VTE prophylaxis as per surgeons discretion depending on the risk of postop bleeding. Living will/advanced directive/end of life care: Patient does not have living will or advanced directive. She states her next of kin is her niece. After discussion of benefits/risks procedures involved with full code, DNR CC arrest and DNR CC, the patient opted for full code. Patient does want artificial life support including intubation, tube feed, ventilator and/chest compression, central venous catheter, vasopressor and DC shock if needed Total time spent in [id number]-sb-tmaz encounter in discussion of advanced directive 17 minutes. Microbiology Past 72 Hours 03/06/23 19:37 Aspirate - Abdominal Gram Stain - Final 03/06/23 19:37 Aspirate - Abdominal Wound Culture - Final Escherichia coli Escherichia coli#2 03/06/23 19:37 Aspirate - Abdominal Anaerobic Culture - Preliminary Checking for anaerobes, further studies to follow. Laboratory Results 03/06/23 19:37: Miscellaneous Cytology SEE PATHOLOGY REPORT 03/09/23 17:52: POC Glucose 144 H 03/09/23 23:04: POC Glucose 144 H 03/10/23 05:33: POC Glucose 123 H 03/10/23 07:46: WBC 9.6, RBC 3.59 L, Hgb 7.8 L, Hct 26.5 L, MCV 73.8 L, MCH 21.7L, MCHC 29.4 L, RDW Std Deviation 37.6, RDW Coeff of Anand 14.0, Plt Count 506 H, MPV 9.1, Immature Gran % (Auto) 2.800 H, Neut % (Auto) 62.9, Lymph % (Auto) 15.5L, [place] % (Auto) 6.9, Eos % (Auto) 11.3 H, Baso % (Auto) 0.6, Absolute Neuts (auto) 6.1, Absolute Lymphs (auto) 1.49, Nucleated RBC % 0, Sodium 137, Potassium 4.2, Chloride 111 H, Carbon Dioxide 24.0, Anion Gap 2 L, BUN 21 H, Creatinine 0.48 L, Estim Creat Clear Calc 60.60, Est GFR (MDRD) Af Amer 161, EstGFR (MDRD) Non-Af 133, BUN/Creatinine Ratio 43.6 H, Glucose 123 H, Calcium 8.5 03/10/23 11:59: POC Glucose 164 H Clinical Impression(s) from Imaging Studies Abdomen/Pelvis CT 03/05/23 20:03 IMPRESSION: Very limited by the absence of IV and especially oral contrast. Extensive inflammatory process of the right lower quadrant associated with irregular bowel wall thickening of the right colon, probable perforation, and retrocecal abscess. Findings could represent perforated diverticulitis or perforated neoplasm. Colonoscopy is indicated. Nonobstructing left renal stone. The Nonstandard Physician Communication protocol was initiated. Abdomen/Pelvis CT 03/06/23 22:40 IMPRESSION: Wall thickening of the ascending colon with pericolonic collection consistent with contained perforation and/or early abscess. Etiology may be due to inflammatory process or colitis, but is suspicious for neoplasm with irregular wall thickening, multiple adjacent enlarged lymph nodes. Also the appendix is not visualized, perforated retrocecal appendicitis less likely but is not entirely excluded. Electronically Signed: Karen Hook MD at 2:15 EST , Chest X-Ray 03/07/23 05:55 IMPRESSION: Subsegmental atelectasis in the lung bases. Electronically Signed: Santosh Dimas MD at 5:08 EST , Avoiding red meat concentrated sugar sweets Charges/Coding Visit Charges Inpatient E&M: 31620 Subs Hosp L2 03/10/23 1336 <Electronically signed by Jameson Snell MD> Cosigner Signature (if applicable): CC: ~ Signed [facility] Work Phone: [phone]) 115-442201-27-2024 Progress note Author Richard Mckenzie [facility] March 10, 2023 9:24am Note Date/Time March 10, 2023 9 :24am [facility] Medical Records Department [address] [place] [address] Progress Note - Surgery 03/10/23 0923 MR#: [id number] Acct: [id number] Name: NGUYEN QUEEN Rep #:[id number] : 1945 77 From: Richard landa MD PCP: Dr. Jeff Simeon, DO Status:AD M IN Location: [place] [id number] Subjective Subjective Patient reports she is doing well. She is passing copious gas. She denies any nausea or vomiting with full liquids. She denies abdominal pain besides her incision Objective Data Objective Data Vital Signs: Vital Signs Temp Pulse Resp BP Pulse Ox O2 Del Method O2 Flow Rate 96.3 F L 92 18 132/74 H 94 Room Air 8 03/10/23 03:15 03/10/23 03:15 03/10/23 03:15 03/10/23 03:15 03/10/23 03:15 03/10/23 03:15 03/06/23 19:30 Oxygen Flow Rate (L/min) 8 Oxygen Delivery Method Room Air Weight: 174 lb 14.389 oz Body Mass Index (BMI) 30.9 Intake & Output: Intake and Output for Last 24 Hours 03/08/23 03/09/23 03/10/23 23:59 23:59 23:59 Intake Total 2291.66 / 2291.66 2924.17 / 2924.17 282.08 / 282.08 Output Total 130 / 130 90 / 90 35 / 35 Balance 2161.66 / 2161.66 2834.17 / 2834.17 247.08 / 247.08 Lab / Micro Data 03/10/23 07:46 03/10/23 07:46 Labs: Laboratory Results - last 24 hr 03/06/23 19:37: Miscellaneous Cytology SEE PATHOLOGY REPORT 03/09/23 12:02: POC Glucose 205 H 03/09/23 17:52: POC Glucose 144 H 03/09/23 23:04: POC Glucose 144 H 03/10/23 05:33: POC Glucose 123 H 03/10/23 07:46: WBC 9.6, RBC 3.59 L, Hgb 7.8 L, Hct 26.5 L, MCV 73.8 L, MCH 21.7L, MCHC 29.4 L, RDW Std Deviation 37.6, RDW Coeff of Anand 14.0, Plt Count 506 H, MPV 9.1, Immature Gran % (Auto) 2.800 H, Neut % (Auto) 62.9, Lymph % (Auto) 15.5L, [place] % (Auto) 6.9, Eos % (Auto) 11.3 H, Baso % (Auto) 0.6, Absolute Neuts (auto) 6.1, Absolute Lymphs (auto) 1.49, Nucleated RBC % 0, Sodium 137, Potassium 4.2, Chloride 111 H, Carbon Dioxide 24.0, Anion Gap 2 L, BUN 21 H, Creatinine 0.48 L, Estim Creat Clear Calc 60.60, Est GFR (MDRD) Af Amer 161, EstGFR (MDRD) Non-Af 133, BUN/Creatinine Ratio 43.6 H, Glucose 123 H, Calcium 8.5 Micro: Microbiology 03/06/23 19:37 Aspirate - Abdominal Gram Stain - Final 03/06/23 19:37 Aspirate - Abdominal Wound Culture - Final Escherichia coli Escherichia coli#2 03/06/23 19:37 Aspirate - Abdominal Anaerobic Culture - Preliminary Checking for anaerobes, further studies to follow. Physical Exam Const oriented x3 and no apparent distress Resp normal respiratory effort GI soft to palpation Palpation: tender Assessment & Plan Assessment/Plan (1) Retrocecal abscess: PLAN: Patient is postoperative day 4 from resection of right colon for perforated cecum. The patient reports that she is doing well and she is tolerating full liquids with no nausea or vomiting. She feels hungry and she ispassing gas. I will advance her to regular diet as the patient feels hungry andshe reports she is several days between bowel movements at home as well. Her JPis serosanguineous I will remove it after she is tolerating regular diet tomorrow. Possible DC tomorrow or Sunday if she is doing well and starts havingbowel movement. I will remove her drain before discharge. Continue antibioticstoday. Richard Mckenzie MD Pager: [facility] [address] [place] [address], [address] [place] [address] Office: 03/10/23 [phone] <Electronically signed by Richard Mckenzie MD> Cosigner Signature (if applicable): CC: ~ Signed [facility] Work Phone: [phone]) 518-364801-26-2024 Progress note Author Jameson Snell [facility] March 09, 2023 3:58pm Note Date/Time March 09, 2023 3 :58pm [facility] Medical Records Department [address] [place] [address] Progress Note - Hospitalist 03/09/23 1552 MR#: [id number] Acct: [id number] Name: NGUYEN QUEEN Rep #:[id number] : 1945 77 From: Jameson Martinez PCP: Dr. Jeff Simeon, DO Status:AD M IN Location: [place] [id number] Reason for Visit Reason for Visit: Diagnoses Peritoneal abscess (03/05/23) Right lower quadrant pain (03/05/23) Objective Data Objective Data Vital Signs: Vital Signs Temp Pulse Resp BP Pulse Ox O2 Del Method O2 Flow Rate 97.6 F L 91 16 140/61 H 98 Room Air 8 03/09/23 14:40 03/09/23 14:40 03/09/23 14:40 03/09/23 14:40 03/09/23 14:40 03/09/23 14:40 03/06/23 19:30 Oxygen Flow Rate (L/min) 8 Oxygen Delivery Method Room Air Weight: 174 lb 14.389 oz Body Mass Index (BMI) 30.9 Intake & Output: Intake and Output for Last 24 Hours 03/07/23 03/08/23 03/09/23 23:59 23:59 23:59 Intake Total 2140.84 / 2140.84 2291.66 / 2291.66 1586.67 / 1586.67 Output Total 375 / 375 130 / 130 Balance 1765.84 / 1765.84 2161.66 / 2161.66 1586.67 / 1586.67 Lab / Micro Data 03/09/23 04:34 03/09/23 04:34 Labs: Laboratory Results - last 24 hr 03/06/23 19:37: Miscellaneous Cytology SEE PATHOLOGY REPORT 03/08/23 17:01: POC Glucose 132 H 03/08/23 23:51: POC Glucose 207 H 03/09/23 04:34: WBC 13.3 H, RBC 3.91 L, Hgb 8.7 L, Hct 29.0 L, MCV 74.2 L, MCH 22.3 L, MCHC 30.0 L, RDW Std Deviation 37.1, RDW Coeff of Anand 13.9, Plt Count 570 H, MPV 9.5, Immature Gran % (Auto) 3.600 H, Neut % (Auto) 70.1 H, Lymph % (Auto) 11.1 L, [place] % (Auto) 7.4, Eos % (Auto) 7.2 H, Baso % (Auto) 0.6, Absolute Neuts (auto) 9.3 H, Absolute Lymphs (auto) 1.48, Nucleated RBC % 0, Sodium 138, Potassium 3.7, Chloride 108 H, Carbon Dioxide 24.0, Anion Gap 6, BUN18, Creatinine 0.44 L, Estim Creat Clear Calc 60.60, Est GFR (MDRD) Af Amer 180,Est GFR (MDRD) Non-Af 149, BUN/Creatinine Ratio 41.2 H, Glucose 135 H, Calcium 8.4 L 03/09/23 06:03: POC Glucose 153 H 03/09/23 12:02: POC Glucose 205 H Micro: Microbiology 03/06/23 19:37 Aspirate - Abdominal Gram Stain - Final 03/06/23 19:37 Aspirate - Abdominal Wound Culture - Final Escherichia coli Escherichia coli#2 03/06/23 19:37 Aspirate - Abdominal Anaerobic Culture - Preliminary Checking for anaerobes, further studies to follow. Physical Exam Narrative Seen and examined. Mild expected abdominal pain. Diet advanced by surgery. No fever. No hypoxia. Cough is better in the morning. Patient is doing good on incentive spirometry. Physical exam General: Alert, Oriented x3, Cooperative HEENT: Atraumatic, PERRLA, EOMI, Normocephalic Oral: Oral mucosa moist. No Gingival or Mucosal Lesions/ Ulcerations Neck: Supple, No JVD, Negative Carotid Bruits Lungs: Air entry diminished in Right lung base. No crepitation/rhonchi. Cardiovascular: Regular rate, Regular Rhythm, Normal S1, Normal S2, No murmurs Abdomen: Soft, mild tenderness present over right lower quadrant. No guarding/rigidity. Bowel sounds sluggish. SUZIE drains containing mainly serous fluid : No renal angle tenderness. No suprapubic tenderness. Extremities: No edema, Capillary Refill Less than 3 Seconds Skin: surgical dressing on right side of abdomen with drain. Musculoskeletal: No Tenderness to Palpation of Joints or Extremities Neurological: Cranial nerves II-XII grossly intact, DTR 2+/4. No acute focal neurological deficit. Psych/Mental Status: Normal Affect, Appropriate. Assessment & Plan Assessment/Plan (1) Retrocecal abscess: PLAN: Plan This 77-year-old woman being consulted for medical management for perioperative management of retrocecal abscess. 1. Right lower quadrant abdominal pain most likely due to retrocecal abscess: She might have developed retrocecal abscess probably after perforation of appendicitis/inflamed appendix or possible perforated diverticulitis with suspicion of possibility of neoplasm: Patient is being taken for surgery today. Currently n.p.o. on empiric IV antibiotics. Continue incentive spirometry. 03/07: Intraoperative findings: Patient had diagnostic laparoscopy converted to open laparotomy, right hemicolectomy with stapled [id number] ileocolic anastomosis on 03/07/2023. Intraoperative findings were perforated descending colon mass to the retroperitoneum. Retrocecal abscess cavity with foul-smellingpurulent fluid. Thickened colon wall with desmoplastic reaction 20 cm of colon. Segment 6 of the liver was accessible rest was covered adhesions from prior cholecystectomy. No clinical signs of hepatic metastasis On IV antibiotic meropenem. Patient is doing well with pain controlled on clearliquid. Encourage incentive spirometry to decrease chances of pleural effusion/atelectasis and pneumonia. 03/08: Aspirate fluid culture shows E. coli pansensitive but would prefer coverage of gram-negative and anaerobes broad-spectrum. Portable chest x-ray shows right subsegmental atelectasis in right lung base. Patient encouraged incentive spirometry. Mucinex DM added. 03/09: Postop day third. Air entry better on the right lung base and patient encouraged to do incentive spirometry and Pep. No fever. Cough is better. Enoxaparin 40 mg daily added as DVT prophylaxis. PTH cytology negative for malignant cells. E. coli in peritoneal aspirate is pansensitive, ESBL negative. 2. Diabetes mellitus type 2: Accu-Chek ACH cover with Humalog sliding scale. Glucose is reasonably controlled, 195 and 147. A1c 6.6. Hold oral hypoglycemicagents as patient is n.p.o. and also going for surgery. 03/07: Glucose about 250s. Increase the dose of Lantus insulin. 03/08: Glucose varies between 170-235. On Lantus insulin. 1/26: Glucose between 153-205. 135 in AM fasting. Lantus insulin dose increased. 3. Hypertension: Blood pressure is controlled. At home, patient is on [id number] mg daily. IV hydralazine as needed during n.p.o. status. 03/07: Home medications resumed. Baby aspirin regimen. 4. Hypothyroidism: 03/07: Resume levothyroxine. 5. Other chronic comorbidities include GERD, migraine and rheumatoid arthritis and history of seizure: Patient not on any antiepileptic medications. On baby aspirin. IV PPI 40 mg once daily ordered. 03/07 change IV PPI to oral. VTE prophylaxis bilateral SCDs. Postop VTE prophylaxis as per surgeons discretion depending on the risk of postop bleeding. Living will/advanced directive/end of life care: Patient does not have living will or advanced directive. She states her next of kin is her niece. After discussion of benefits/risks procedures involved with full code, DNR CC arrest and DNR CC, the patient opted for full code. Patient does want artificial life support including intubation, tube feed, ventilator and/chest compression, central venous catheter, vasopressor and DC shock if needed Total time spent in [id number] encounter in discussion of advanced directive 17 minutes. Clinical Impression(s) from Imaging Studies Abdomen/Pelvis CT 03/05/23 20:03 IMPRESSION: Very limited by the absence of IV and especially oral contrast. Extensive inflammatory process of the right lower quadrant associated with irregular bowel wall thickening of the right colon, probable perforation, and retrocecal abscess. Findings could represent perforated diverticulitis or perforated neoplasm. Colonoscopy is indicated. Nonobstructing left renal stone. The Nonstandard Physician Communication protocol was initiated. Abdomen/Pelvis CT 03/06/23 22:40 IMPRESSION: Wall thickening of the ascending colon with pericolonic collection consistent with contained perforation and/or early abscess. Etiology may be due to inflammatory process or colitis, but is suspicious for neoplasm with irregular wall thickening, multiple adjacent enlarged lymph nodes. Also the appendix is not visualized, perforated retrocecal appendicitis less likely but is not entirely excluded. Electronically Signed: Karen Hook MD at 2:15 EST , Chest X-Ray 03/07/23 05:55 IMPRESSION: Subsegmental atelectasis in the lung bases. Electronically Signed: Santosh Dimas MD at 5:08 EST , Charges/Coding Visit Charges Inpatient E&M: 06829 Subs Hosp L2 03/09/23 1558 <Electronically signed by Jameson Snell MD> Cosigner Signature (if applicable): CC: ~ Signed [facility] Work Phone: [phone]) 370-684001-26-2024 Progress note Author Santosh Ballard [facility] March 09, 2023 9:35am Note Date/Time March 09, 2023 7 :22am [facility] Medical Records Department [address] [facility] [place] [address] Progress Note - Surgery 03/09/23 0721 MR#: [id number] Acct: [id number] Name: NGUYEN QUEEN Rep #:[id number] : 1945 77 From: Santosh Martinez PCP: Dr. Jeff Simeon, DO Status:AD M IN Location: [facility] [id number] Subjective Subjective Patient seen and examined during AM rounds. She is found resting in bed. She states that she did some additional walking yesterday and has passed additional flatus but denies any bowel movements. She denies any significant increase to her appetite. She does complain of some lower extremity swelling on both sides. Objective Data Objective Data Vital Signs: Vital Signs Temp Pulse Resp BP Pulse Ox O2 Del Method O2 Flow Rate 97.6 F L 88 16 128/80 H 96 Room Air 8 03/09/23 03:36 03/09/23 03:36 03/09/23 03:36 03/09/23 03:36 03/09/23 03:36 03/09/23 03:36 03/06/23 19:30 Oxygen Flow Rate (L/min) 8 Oxygen Delivery Method Room Air Weight: 174 lb 14.389 oz Body Mass Index (BMI) 30.9 Intake & Output: Intake and Output for Last 24 Hours 03/07/23 03/08/2324 23:59 23:59 23:59 Intake Total 2140.84 / 2140.84 2291.66 / 2291.66 240 / 240 Output Total 375 / 375 130 / 130 Balance 1765.84 / 1765.84 2161.66 / 2161.66 240 / 240 Lab / Micro Data 03/09/23 04:34 03/09/23 04:34 Labs: Laboratory Results - last 24 hr 03/08/23 06:35: Sodium 135 L, Potassium 4.1, Chloride 110 H, Carbon Dioxide 23.0, Anion Gap 2 L, BUN 18, Creatinine 0.61, Estim Creat Clear Calc 60.60, Est GFR (MDRD) Af Amer 123, Est GFR (MDRD) Non-Af 101, BUN/Creatinine Ratio 29.5 H, Glucose 181 H, Calcium 8.4 L, Phosphorus 2.2 L, Magnesium 2.1 03/08/23 11:56: POC Glucose 235 H 03/08/23 17:01: POC Glucose 132 H 03/08/23 23:51: POC Glucose 207 H 03/09/23 04:34: WBC 13.3 H, RBC 3.91 L, Hgb 8.7 L, Hct 29.0 L, MCV 74.2 L, MCH 22.3 L, MCHC 30.0 L, RDW Std Deviation 37.1, RDW Coeff of Anand 13.9, Plt Count 570 H, MPV 9.5, Immature Gran % (Auto) 3.600 H, Neut % (Auto) 70.1 H, Lymph % (Auto) 11.1 L, [place] % (Auto) 7.4, Eos % (Auto) 7.2 H, Baso % (Auto) 0.6, Absolute Neuts (auto) 9.3 H, Absolute Lymphs (auto) 1.48, Nucleated RBC % 0, Sodium 138, Potassium 3.7, Chloride 108 H, Carbon Dioxide 24.0, Anion Gap 6, BUN18, Creatinine 0.44 L, Estim Creat Clear Calc 60.60, Est GFR (MDRD) Af Amer 180,Est GFR (MDRD) Non-Af 149, BUN/Creatinine Ratio 41.2 H, Glucose 135 H, Calcium 8.4 L 03/09/23 06:03: POC Glucose 153 H Micro: Microbiology 03/06/23 19:37 Aspirate - Abdominal Gram Stain - Final 03/06/23 19:37 Aspirate - Abdominal Wound Culture - Preliminary Escherichia coli Physical Exam Const oriented x3 and no apparent distress Resp normal respiratory effort GI GI Narrative: Minimally distended, operative silver dressing remains intact beneath binder, JPdrain with minimal serosanguineous output. Patient overall mildly/appropriatelytender to palpation Assessment & Plan Assessment/Plan (1) Retrocecal abscess: PLAN: Patient is postoperative day 3 from diagnostic laparoscopy converted to open right hemicolectomy with primary ileocolic anastomosis. Continue IV fluid and IV antibiotics and await final cultures but preliminary show growth of E. coli Remain on Full liquids until having a bowel movement Continue ambulation and I.S. Plan to initiate Lovenox therapy as patient's CBC shows overall stabilization ofher hemoglobin Continue inpatient stay Charges/Coding Visit Charges Inpatient E&M: 92476 Subs Hosp L2 03/09/23 0935 <Electronically signed by Santosh Ballard MD> Cosigner Signature (if applicable): CC: ~ Signed [facility] Work Phone: [phone] Progress note Author Jamesonroyce Snell [facility] March 08, 2023 1:55pm Note Date/Time March 08, 2023 1 :55pm [facility] Medical Records Department [address] [place] [id number] Progress Note - Hospitalist 03/08/23 1349 MR#: [id number] Acct: [id number] Name: NGUYEN QUEEN Rep #:[id number] : 1945 77 From: Jameson Martinez PCP: Dr. Jeff Simeon, DO Status:AD M IN Location: [place] [address]- 1 Reason for Visit Reason for Visit: Diagnoses Peritoneal abscess (03/05/23) Right lower quadrant pain (03/05/23) Objective Data Objective Data Vital Signs: Vital Signs Temp Pulse Resp BP Pulse Ox O2 Del Method O2 Flow Rate 97.5 F L 100 18 120/81 H 96 Room Air 8 03/08/23 10:06 03/08/23 10:06 03/08/23 10:06 03/08/23 10:06 03/08/23 10:06 03/08/23 10:06 03/06/23 19:30 Oxygen Flow Rate (L/min) 8 Oxygen Delivery Method Room Air Weight: 174 lb 14.389 oz Body Mass Index (BMI) 30.9 Intake & Output: Intake and Output for Last 24 Hours 03/06/23 03/07/23 03/08/23 23:59 23:59 23:59 Intake Total 2360 / 2560 2140.84 / 2140.84 916.66 / 916.66 Output Total 450 / 620 375 / 375 50 / 50 Balance 1910 / 1940 1765.84 / 1765.84 866.66 / 866.66 Lab / Micro Data 03/08/23 06:35 03/08/23 06:35 Labs: Laboratory Results - last 24 hr 03/07/23 17:14: POC Glucose 190 H 03/08/23 00:00: POC Glucose 178 H 03/08/23 06:35: WBC 14.0 H, RBC 4.10 L, Hgb 9.0 L, Hct 29.9 L, MCV 72.9 L, MCH 22.0 L, MCHC 30.1 L, RDW Std Deviation 36.8, RDW Coeff of Anand 13.8, Plt Count 535 H, MPV 9.4, Immature Gran % (Auto) 2.100 H, Neut % (Auto) 77.4 H, Lymph % (Auto) 9.7 L, [place] % (Auto) 8.4, Eos % (Auto) 2.0, Baso % (Auto) 0.4, Absolute Neuts (auto) 10.8 H, Absolute Lymphs (auto) 1.36, Nucleated RBC % 0, Sodium 135 L, Potassium 4.1, Chloride 110 H, Carbon Dioxide 23.0, Anion Gap 2 L, BUN 18, Creatinine 0.61, Estim Creat Clear Calc 60.60, Est GFR (MDRD) Af Amer 123, Est GFR (MDRD) Non-Af 101, BUN/Creatinine Ratio 29.5 H, Glucose 181 H, Calcium 8.4 L, Phosphorus 2.2 L, Magnesium 2.1 03/08/23 06:50: POC Glucose 169 H 03/08/23 11:56: POC Glucose 235 H Micro: Microbiology 03/06/23 19:37 Aspirate - Abdominal Gram Stain - Final 03/06/23 19:37 Aspirate - Abdominal Wound Culture - Preliminary Escherichia coli Physical Exam Narrative Seen and examined. Mild expected abdominal pain. Patient started on clear liquid diet. No fever. No hypoxia. Patient has mild cough. Physical exam General: Alert, Oriented x3, Cooperative HEENT: Atraumatic, PERRLA, EOMI, Normocephalic Oral: Oral mucosa moist. No Gingival or Mucosal Lesions/ Ulcerations Neck: Supple, No JVD, Negative Carotid Bruits Lungs: Air entry diminished in Right lung base. No crepitation/rhonchi Cardiovascular: Regular rate, Regular Rhythm, Normal S1, Normal S2, No murmurs Abdomen: Soft, tenderness present over right lower quadrant. No guarding/rigidity. Bowel sounds sluggish. SUZIE drains containing mainly serous, serosanguineous fluid no palpable mass. : No renal angle tenderness. No suprapubic tenderness. Extremities: No edema, Capillary Refill Less than 3 Seconds Skin: surgical dressing on right side of abdomen with drain. Musculoskeletal: No Tenderness to Palpation of Joints or Extremities Neurological: Cranial nerves II-XII grossly intact, DTR 2+/4. No acute focal neurological deficit. Psych/Mental Status: Normal Affect, Appropriate. Assessment & Plan Assessment/Plan (1) Retrocecal abscess: PLAN: Plan This 77-year-old woman being consulted for medical management for perioperative management of retrocecal abscess. 1. Right lower quadrant abdominal pain most likely due to retrocecal abscess: She might have developed retrocecal abscess probably after perforation of appendicitis/inflamed appendix or possible perforated diverticulitis with suspicion of possibility of neoplasm: Patient is being taken for surgery today. Currently n.p.o. on empiric IV antibiotics. Continue incentive spirometry. 03/07: Intraoperative findings: Patient had diagnostic laparoscopy converted to open laparotomy, right hemicolectomy with stapled [id number]-[id number] ileocolic anastomosis on 03/07/2023. Intraoperative findings were perforated descending colon mass to the retroperitoneum. Retrocecal abscess cavity with foul-smellingpurulent fluid. Thickened colon wall with desmoplastic reaction 20 cm of colon. Segment 6 of the liver was accessible rest was covered adhesions from prior cholecystectomy. No clinical signs of hepatic metastasis On IV antibiotic meropenem. Patient is doing well with pain controlled on clearliquid. Encourage incentive spirometry to decrease chances of pleural effusion/atelectasis and pneumonia. 1/25: Aspirate fluid culture shows E. coli pansensitive but would prefer coverage of gram-negative and anaerobes broad-spectrum. Portable chest x-ray shows right subsegmental atelectasis in right lung base. Patient encouraged incentive spirometry. Mucinex DM added. 2. Diabetes mellitus type 2: Accu-Chek ACH cover with Humalog sliding scale. Glucose is reasonably controlled, 195 and 147. A1c 6.6. Hold oral hypoglycemicagents as patient is n.p.o. and also going for surgery. 03/07: Glucose about 250s. Increase the dose of Lantus insulin. 03/08: Glucose varies between 170-235. On Lantus insulin. 3. Hypertension: Blood pressure is controlled. At home, patient is on mg daily. IV hydralazine as needed during n.p.o. status. 03/07: Home medications resumed. Baby aspirin regimen. 4. Hypothyroidism: 03/07: Resume levothyroxine. 5. Other chronic comorbidities include GERD, migraine and rheumatoid arthritis and history of seizure: Patient not on any antiepileptic medications. On baby aspirin. IV PPI 40 mg once daily ordered. 03/07 change IV PPI to oral. VTE prophylaxis bilateral SCDs. Postop VTE prophylaxis as per surgeons discretion depending on the risk of postop bleeding. Living will/advanced directive/end of life care: Patient does not have living will or advanced directive. She states her next of kin is her niece. After discussion of benefits/risks procedures involved with full code, DNR CC arrest and DNR CC, the patient opted for full code. Patient does want artificial life support including intubation, tube feed, ventilator and/chest compression, central venous catheter, vasopressor and DC shock if needed Total time spent in myar-rx-ipta encounter in discussion of advanced directive 17 minutes. Microbiology Past 72 Hours 03/06/23 19:37 Aspirate - Abdominal Gram Stain - Final 03/06/23 19:37 Aspirate - Abdominal Wound Culture - Preliminary Escherichia coli Laboratory Results 03/07/23 17:14: POC Glucose 190 H 03/08/23 00:00: POC Glucose 178 H 03/08/23 06:35: WBC 14.0 H, RBC 4.10 L, Hgb 9.0 L, Hct 29.9 L, MCV 72.9 L, MCH 22.0 L, MCHC 30.1 L, RDW Std Deviation 36.8, RDW Coeff of Anand 13.8, Plt Count 535 H, MPV 9.4, Immature Gran % (Auto) 2.100 H, Neut % (Auto) 77.4 H, Lymph % (Auto) 9.7 L, [place] % (Auto) 8.4, Eos % (Auto) 2.0, Baso % (Auto) 0.4, Absolute Neuts (auto) 10.8 H, Absolute Lymphs (auto) 1.36, Nucleated RBC % 0, Sodium 135 L, Potassium 4.1, Chloride 110 H, Carbon Dioxide 23.0, Anion Gap 2 L, BUN 18, Creatinine 0.61, Estim Creat Clear Calc 60.60, Est GFR (MDRD) Af Amer 123, Est GFR (MDRD) Non-Af 101, BUN/Creatinine Ratio 29.5 H, Glucose 181 H, Calcium 8.4 L, Phosphorus 2.2 L, Magnesium 2.1 03/08/23 06:50: POC Glucose 169 H 03/08/23 11:56: POC Glucose 235 H Clinical Impression(s) from Imaging Studies Abdomen/Pelvis CT 03/05/23 20:03 IMPRESSION: Very limited by the absence of IV and especially oral contrast. Extensive inflammatory process of the right lower quadrant associated with irregular bowel wall thickening of the right colon, probable perforation, and retrocecal abscess. Findings could represent perforated diverticulitis or perforated neoplasm. Colonoscopy is indicated. Nonobstructing left renal stone. The Nonstandard Physician Communication protocol was initiated. Abdomen/Pelvis CT 03/06/23 22:40 IMPRESSION: Wall thickening of the ascending colon with pericolonic collection consistent with contained perforation and/or early abscess. Etiology may be due to inflammatory process or colitis, but is suspicious for neoplasm with irregular wall thickening, multiple adjacent enlarged lymph nodes. Also the appendix is not visualized, perforated retrocecal appendicitis less likely but is not entirely excluded. Electronically Signed: Karen Hook MD at 2:15 EST , Chest X-Ray 03/07/23 05:55 IMPRESSION: Subsegmental atelectasis in the lung bases. Electronically Signed: Santosh Dimas MD at 5:08 EST , Charges/Coding Visit Charges Inpatient E&M: 31852 Subs Hosp L2 03/08/23 1355 <Electronically signed by Jameson Snell MD> Cosigner Signature (if applicable): CC: ~ Signed [facility] Work Phone: [phone] Progress note Author Nguyen Sloan [facility] March 08, 2023 8:44am Note Date/Time March 08, 2023 7 :55am [facility] Medical Records Department [address] [place] [address] Progress Note - Surgery 03/08/23 0755 MR#: [id number] Acct: [id number] Name: NGUYEN QUEEN Rep #:[id number] : 1945 77 From: Nguyen REDDY PA-C PCP: Dr. Jeff Simeon, DO Status:AD M IN Location: [facility] [id number] Subjective Subjective Patient is a 77 y/o F I am following in conjunction with Dr. Ballard. Patient denies nausea, vomiting, fever. She notes incisional pain. She denies flatus andbowel movements. She tolerated a full liquid diet yesterday. She notes she mostly stayed with liquids yesterday. She had success with urination yesterday after having the Lopez catheter pulled. She walked the unit 5 times yesterday. She notes minimal amount of belching. She notes feeling over all well. Objective Data Objective Data Vital Signs: Vital Signs Temp Pulse Resp BP Pulse Ox O2 Del Method O2 Flow Rate 97.5 F L 85 16 129/68 H 96 Room Air 8 03/08/23 06:57 03/08/23 06:57 03/08/23 06:57 03/08/23 06:57 03/08/23 06:57 03/08/23 06:57 03/06/23 19:30 Oxygen Flow Rate (L/min) 8 Oxygen Delivery Method Room Air Weight: 174 lb 14.389 oz Body Mass Index (BMI) 30.9 Intake & Output: Intake and Output for Last 24 Hours 03/06/23 03/07/23 03/08/23 23:59 23:59 23:59 Intake Total 2360 / 2560 2140.84 / 2140.84 552.91 / 552.91 Output Total 450 / 620 375 / 375 Balance 1910 / 1940 1765.84 / 1765.84 542.91 / 542.91 Lab / Micro Data 03/08/23 06:35 03/08/23 06:35 Labs: Laboratory Results - last 24 hr 03/06/23 04:17: Carcinoembryonic Ag 5.0 H 03/07/23 07:30: WBC 15.0 H, RBC 4.37, Hgb 9.7 L, Hct 32.3 L, MCV 73.9 L, MCH 22.2 L, MCHC 30.0 L, RDW Std Deviation 36.6, RDW Coeff of Anand 13.6, Plt Count 519 H, MPV 9.9, Immature Gran % (Auto) 0.800, Neut % (Auto) 84.0 H, Lymph % (Auto) 5.9 L, [place] % (Auto) 9.1, Eos % (Auto) 0.0, Baso % (Auto) 0.2, Absolute Neuts (auto) 12.6 H, Absolute Lymphs (auto) 0.88, Nucleated RBC % 0, Sodium 133 L, Potassium 4.2, Chloride 107, Carbon Dioxide 22.0, Anion Gap 4 L, BUN 10, Creatinine 0.63, Estim Creat Clear Calc 60.60, Est GFR (MDRD) Af Amer 118, Est GFR (MDRD) Non-Af 97, BUN/Creatinine Ratio 15.8, Glucose 219 H, Calcium 8.1 L, Phosphorus 3.5, Magnesium 1.9 03/07/23 11:21: POC Glucose 220 H 03/07/23 17:14: POC Glucose 190 H 03/08/23 00:00: POC Glucose 178 H 03/08/23 06:35: WBC 14.0 H, RBC 4.10 L, Hgb 9.0 L, Hct 29.9 L, MCV 72.9 L, MCH 22.0 L, MCHC 30.1 L, RDW Std Deviation 36.8, RDW Coeff of Anand 13.8, Plt Count 535 H, MPV 9.4, Immature Gran % (Auto) 2.100 H, Neut % (Auto) 77.4 H, Lymph % (Auto) 9.7 L, [place] % (Auto) 8.4, Eos % (Auto) 2.0, Baso % (Auto) 0.4, Absolute Neuts (auto) 10.8 H, Absolute Lymphs (auto) 1.36, Nucleated RBC % 0, Sodium 135 L, Potassium 4.1, Chloride 110 H, Carbon Dioxide 23.0, Anion Gap 2 L, BUN 18, Creatinine 0.61, Estim Creat Clear Calc 60.60, Est GFR (MDRD) Af Amer 123, Est GFR (MDRD) Non-Af 101, BUN/Creatinine Ratio 29.5 H, Glucose 181 H, Calcium 8.4 L, Phosphorus 2.2 L, Magnesium 2.1 03/08/23 06:50: POC Glucose 169 H Micro: Microbiology 03/06/23 19:37 Aspirate - Abdominal Gram Stain - Final 03/06/23 19:37 Aspirate - Abdominal Wound Culture - Preliminary GNR lactose sales clerk Physical Exam GI GI Narrative: Abdomen- incision c/d/i. No erythema or infection noted. SUZIE drain with minimal bloody serous fluid noted within the bulb. Hypoactive bowel sounds. Assessment & Plan Assessment/Plan (1) Retrocecal abscess: PLAN: I have evaluated this patient in conjunction with Dr. Ballard Continue IV fluid and IV antibiotics Remain on Full liquids at this time Continue ambulation and I.S. Labs pending Will check culture results We will continue to monitor this patient Charges/Coding Visit Charges Inpatient E&M: 34335 Subs Hosp L1 (no charge; post-op) 03/08/23 0844 <Electronically signed by Nguyen REDDY PA-C> Cosigner Signature (if applicable): CC: ~ Signed [facility] Work Phone: [phone] Progress note Author Jameson Snell [facility] March 07, 2023 2:20pm Note Date/Time March 07, 2023 2 :20pm [facility] Medical Records Department [address] [place] [address] Progress Note - Hospitalist 03/07/23 1412 MR#: [id number] Acct: [id number] Name: NGUYEN QUEEN Rep #:[id number] : 1945 77 From: Jameson Martinez PCP: Dr. Jeff Simeon, DO Status:AD M IN Location: [place] [address] Reason for Visit Reason for Visit: Diagnoses Peritoneal abscess (03/05/23) Right lower quadrant pain (03/05/23) Objective Data Objective Data Vital Signs: Vital Signs Temp Pulse Resp BP Pulse Ox O2 Del Method O2 Flow Rate 97.5 F L 100 16 121/61 H 95 Room Air 8 03/07/23 11:27 03/07/23 11:27 03/07/23 11:27 03/07/23 11:27 03/07/23 11:27 03/07/23 11:27 03/06/23 19:30 Oxygen Flow Rate (L/min) 8 Oxygen Delivery Method Room Air Weight: 174 lb 14.389 oz Body Mass Index (BMI) 30.9 Intake & Output: Intake and Output for Last 24 Hours 03/05/23 03/06/23 03/07/23 23:59 23:59 23:59 Intake Total 1120 / 1120 2360 / 2560 1900.84 / 1900.84 Output Total 450 / 620 310 / 310 Balance 1120 / 1120 1909 / 1940 1590.84 / 1590.84 Lab / Micro Data 03/07/23 07:30 03/07/23 07:30 Labs: Laboratory Results - last 24 hr 03/06/23 04:17: Carcinoembryonic Ag 5.0 H 03/06/23 19:45: POC Glucose 209 H 03/06/23 21:27: POC Glucose 251 H 03/07/23 00:05: POC Glucose 256 H 03/07/23 05:30: POC Glucose 230 H 03/07/23 07:30: WBC 15.0 H, RBC 4.37, Hgb 9.7 L, Hct 32.3 L, MCV 73.9 L, MCH 22.2 L, MCHC 30.0 L, RDW Std Deviation 36.6, RDW Coeff of Anand 13.6, Plt Count 519 H, MPV 9.9, Immature Gran % (Auto) 0.800, Neut % (Auto) 84.0 H, Lymph % (Auto) 5.9 L, [place] % (Auto) 9.1, Eos % (Auto) 0.0, Baso % (Auto) 0.2, Absolute Neuts (auto) 12.6 H, Absolute Lymphs (auto) 0.88, Nucleated RBC % 0, Sodium 133 L, Potassium 4.2, Chloride 107, Carbon Dioxide 22.0, Anion Gap 4 L, BUN 10, Creatinine 0.63, Estim Creat Clear Calc 60.60, Est GFR (MDRD) Af Amer 118, Est GFR (MDRD) Non-Af 97, BUN/Creatinine Ratio 15.8, Glucose 219 H, Calcium 8.1 L, Phosphorus 3.5, Magnesium 1.9 03/07/23 11:21: POC Glucose 220 H Micro: Microbiology 03/06/23 19:37 Aspirate - Abdominal Gram Stain - Final 03/06/23 19:37 Aspirate - Abdominal Wound Culture - Preliminary GNR lactose sales clerk Radiography Diagnostic Testing: Radiology Impression Chest X-Ray 03/07/23 05:55 IMPRESSION: Subsegmental atelectasis in the lung bases. Electronically Signed: Santosh Dimas MD at 5:08 EST , Physical Exam Narrative Seen and examined. Mild abdominal pain. Patient started on clear liquid diet. No cough or fever. No hypoxia. Physical exam General: Alert, Oriented x3, Cooperative HEENT: Atraumatic, PERRLA, EOMI, Normocephalic Oral: Oral mucosa dry. Currently NPO. No Gingival or Mucosal Lesions/ Ulcerations Neck: Supple, No JVD, Negative Carotid Bruits Lungs: Air entry diminished in Right lung base. No crepitation/rhonchi Cardiovascular: Regular rate, Regular Rhythm, Normal S1, Normal S2, No murmurs Abdomen: Soft, tenderness present over right lower quadrant. No guarding/rigidity. Bowel sounds sluggish not hard. No palpable mass. : No renal angle tenderness. No suprapubic tenderness. Extremities: No edema, Capillary Refill Less than 3 Seconds Skin: surgical dressing on right side of abdomen with drain. Musculoskeletal: No Tenderness to Palpation of Joints or Extremities Neurological: Cranial nerves II-XII grossly intact, DTR 2+/4. No acute focal neurological deficit. Psych/Mental Status: Normal Affect, Appropriate. Assessment & Plan Assessment/Plan (1) Retrocecal abscess: PLAN: Plan This 77-year-old woman being consulted for medical management for perioperative management of retrocecal abscess. 1. Right lower quadrant abdominal pain most likely due to retrocecal abscess: She might have developed retrocecal abscess probably after perforation of appendicitis/inflamed appendix or possible perforated diverticulitis with suspicion of possibility of neoplasm: Patient is being taken for surgery today. Currently n.p.o. on empiric IV antibiotics. Continue incentive spirometry. 03/07: Intraoperative findings: Patient had diagnostic laparoscopy converted to open laparotomy, right hemicolectomy with stapled [id number]-gr-[id number] ileocolic anastomosis on 03/07/2023. Intraoperative findings were perforated descending colon mass to the retroperitoneum. Retrocecal abscess cavity with foul-smellingpurulent fluid. Thickened colon wall with desmoplastic reaction 20 cm of colon. Segment 6 of the liver was accessible rest was covered adhesions from prior cholecystectomy. No clinical signs of hepatic metastasis On IV antibiotic meropenem. Patient is doing well with pain controlled on clearliquid. Encourage incentive spirometry to decrease chances of pleural effusion/atelectasis and pneumonia. 2. Diabetes mellitus type 2: Accu-Chek ACH cover with Humalog sliding scale. Glucose is reasonably controlled, 195 and 147. A1c 6.6. Hold oral hypoglycemicagents as patient is n.p.o. and also going for surgery. 03/07: Glucose about 250s. Increase the dose of Lantus insulin. 3. Hypertension: Blood pressure is controlled. At home, patient is on [id number] mg daily. IV hydralazine as needed during n.p.o. status. 03/07: Home medications resumed. Baby aspirin regimen. 4. Hypothyroidism: 03/07: Resume levothyroxine. 5. Other chronic comorbidities include GERD, migraine and rheumatoid arthritis and history of seizure: Patient not on any antiepileptic medications. On baby aspirin. IV PPI 40 mg once daily ordered. 03/07 change IV PPI to oral. VTE prophylaxis bilateral SCDs. Postop VTE prophylaxis as per surgeons discretion depending on the risk of postop bleeding. Living will/advanced directive/end of life care: Patient does not have living will or advanced directive. She states her next of kin is her niece. After discussion of benefits/risks procedures involved with full code, DNR CC arrest and DNR CC, the patient opted for full code. Patient does want artificial life support including intubation, tube feed, ventilator and/chest compression, central venous catheter, vasopressor and DC shock if needed Total time spent in zipj-qm-ijjv encounter in discussion of advanced directive 17 minutes. Laboratory Results 03/05/23 19:30: Urine Color Yellow, Urine Clarity Sl. Cloudy, Urine pH 5.0, Ur Specific [place] 1.025, Urine Protein 30 H, Urine Glucose (UA) Normal, Urine Ketones 5 H, Urine Occult Blood 10 H, Urine Nitrite Negative, Urine Bilirubin 3 H, Urine Urobilinogen 1 H, Ur Leukocyte Esterase 100 H, Urine RBC 0 SEEN, Urine WBC 0-5 SEEN, Ur Squamous Epith Cells 0-5 SEEN, Urine Bacteria 1+, Urine Mucus 0SEEN 03/05/23 19:45: WBC 14.9 H, RBC 4.79, Hgb 10.7 L, Hct 35.7 L, MCV 74.5 L, MCH 22.3 L, MCHC 30.0 L, RDW Std Deviation 36.4, RDW Coeff of Anand 13.5, Plt Count 474 H, MPV 9.6, Immature Gran % (Auto) 0.700, Neut % (Auto) 83.7 H, Lymph % (Auto) 7.9 L, [place] % (Auto) 6.6, Eos % (Auto) 0.8, Baso % (Auto) 0.3, Absolute Neuts (auto) 12.5 H, Absolute Lymphs (auto) 1.18, Nucleated RBC % 0, Sodium 137, Potassium 3.9, Chloride 102, Carbon Dioxide 27.0, Anion Gap 8, BUN 16, Creatinine 0.82, Estim Creat Clear Calc 58.78, Est GFR (MDRD) Af Amer 87, Est GFR (MDRD) Non-Af 72, BUN/Creatinine Ratio 19.5, Glucose 252 H, Hemoglobin A1c 6.6 H, Calcium 9.2, Total Bilirubin 0.30, AST 6 L, ALT 11 L, Alkaline Phosphatase 107, Total Protein 7.3, Albumin 2.8 L, Globulin 4.5 H, Albumin/Globulin Ratio 0.6 L, Lipase 13 03/06/23 04:17: WBC 14.0 H, RBC 4.54, Hgb 10.0 L, Hct 33.2 L, MCV 73.1 L, MCH 22.0 L, MCHC 30.1 L, RDW Std Deviation 36.0, RDW Coeff of Anand 13.5, Plt Count 441, MPV 9.8, Immature Gran % (Auto) 0.700, Neut % (Auto) 83.9 H, Lymph % (Auto)6.4 L, [place] % (Auto) 7.8, Eos % (Auto) 0.8, Baso % (Auto) 0.4, Absolute Neuts (auto) 11.8 H, Absolute Lymphs (auto) 0.90, Nucleated RBC % 0, Sodium 135 L, Potassium 3.7, Chloride 105, Carbon Dioxide 22.0, Anion Gap 8, BUN 11, Creatinine 0.56, Estim Creat Clear Calc 60.60, Est GFR (MDRD) Af Amer 135, Est GFR (MDRD) Non-Af 112, BUN/Creatinine Ratio 19.6, Glucose 195 H, Calcium 8.3 L, Phosphorus 2.9, Magnesium 1.6, Carcinoembryonic Ag Pending 03/06/23 06:33: POC Glucose 195 H 03/06/23 11:39: POC Glucose 147 H Charges/Coding Visit Charges Inpatient E&M: 87161 Subs Hosp L2 03/07/23 1420 <Electronically signed by Jameson Snell MD> Cosigner Signature (if applicable): CC: ~ Signed [facility] Work Phone: [phone] 341-267301-24-2024 Progress note Author Santosh Ballard [facility] March 07, 2023 9:16am Note Date/Time March 07, 2023 9 :16am [facility] Medical Records Department [address] [place] [address] Progress Note - Surgery 03/07/23906 MR#: [id number] Acct: [id number] Name: NGUYEN QUEEN Rep #:[id number] : 1945 77 From: Santosh Martinez PCP: Dr. Jeff Simeon, DO Status:AD M IN Location: [facility] [id number] Subjective Subjective Patient is found sitting out of bed in the chair. She shares that she is feeling overall well today and her pain is controlled with pain medication. Shenotes that it took her a little bit to come out of her anesthetic yesterday. She is doing some clear liquids this morning and expresses an appetite for more nutrition. Objective Data Objective Data Vital Signs: Vital Signs Temp Pulse Resp BP Pulse Ox O2 Del Method O2 Flow Rate 97.9 F 97 16 115/72 94 Room Air 8 03/07/23 06:22 03/07/23 06:22 03/07/23 06:22 03/07/23 06:22 03/07/23 06:22 03/07/23 06:22 03/06/23 19:30 Oxygen Flow Rate (L/min) 8 Oxygen Delivery Method Room Air Weight: 174 lb 14.389 oz Body Mass Index (BMI) 30.9 Intake & Output: Intake and Output for Last 24 Hours 03/05/23 03/06/23 03/07/23 23:59 23:59 23:59 Intake Total 1120 / 1120 2360 / 2560 1333.75 / 1333.75 Output Total 450 / 620 310 / 310 Balance 1120 / 1120 1910 / 1940 1023.75 / 1023.75 Lab / Micro Data 03/07/23 07:30 03/07/23 07:30 Labs: Laboratory Results - last 24 hr 03/06/23 04:17: Carcinoembryonic Ag 5.0 H 03/06/23 11:39: POC Glucose 147 H 03/06/23 19:45: POC Glucose 209 H 03/06/23 21:27: POC Glucose 251 H 03/07/23 00:05: POC Glucose 256 H 03/07/23 05:30: POC Glucose 230 H 03/07/23 07:30: WBC 15.0 H, RBC 4.37, Hgb 9.7 L, Hct 32.3 L, MCV 73.9 L, MCH 22.2 L, MCHC 30.0 L, RDW Std Deviation 36.6, RDW Coeff of Anand 13.6, Plt Count 519 H, MPV 9.9, Immature Gran % (Auto) 0.800, Neut % (Auto) 84.0 H, Lymph % (Auto) 5.9 L, [place] % (Auto) 9.1, Eos % (Auto) 0.0, Baso % (Auto) 0.2, Absolute Neuts (auto) 12.6 H, Absolute Lymphs (auto) 0.88, Nucleated RBC % 0, Sodium 133 L, Potassium 4.2, Chloride 107, Carbon Dioxide 22.0, Anion Gap 4 L, BUN 10, Creatinine 0.63, Estim Creat Clear Calc 60.60, Est GFR (MDRD) Af Amer 118, Est GFR (MDRD) Non-Af 97, BUN/Creatinine Ratio 15.8, Glucose 219 H, Calcium 8.1 L, Phosphorus 3.5, Magnesium 1.9 Radiography Diagnostic Testing: Radiology Impression Chest X-Ray 03/07/23 05:55 IMPRESSION: Subsegmental atelectasis in the lung bases. Electronically Signed: Santosh Dimas MD at 5:08 EST , Physical Exam Const oriented x3 and no apparent distress Resp normal respiratory effort GI GI Narrative: Abdominal binder is in place and beneath this is patient's silver dressing with a scant amount of oozing towards the left side of the dressing. Patient's rightlower quadrant abdominal drain bears some serosanguineous output. Patient's abdomen is mildly distended, soft, and minimally tender to palpation Assessment & Plan Assessment/Plan (1) Retrocecal abscess: (2) Right lower quadrant abdominal pain: PLAN: Plan This is a 77-year-old female who presents with acute on chronic right lower quadrant abdominal discomfort and associated fatigue complaints his ER workup shows evidence of acute infectious process with leukocytosis and CT imaging concerning for a 4.4 cm retrocecal abscess. Etiology for this abscess is unclear at present but differential would include possible perforated appendicitis, possible perforated diverticulitis, possible perforated neoplasm... Patient is postoperative day 1 from diagnostic laparoscopy?converted?to open right hemicolectomy with ileocolic anastomosis with intraoperative findings of aperforated descending colon mass to the retroperitoneum. Patient is overall doing well today. She is controlled for pain. She has no nausea and describes an appetite. Her labs are reassuring. I did discuss with her the findings intraoperatively and stressed to her that we must first help her heal from her surgery before she concerns herself with her cancer diagnosis. For today we will plan: Neuro: Add as needed oxycodone, morphine as needed, scheduled Toradol Pulm/CV: Incentive spirometer FEN/GI: Trend electrolytes, creatinine stable, advance to full liquid diet and await return of bowel movements : Discontinue Lopez catheter today and follow for spontaneous void Heme/ID: Hemoglobin minimally down trended following surgery yesterday, continueto trend CBC, but if stable tomorrow we will plan to initiate Lovenox, continue antibiotics with meropenem and follow peritoneal cultures Endo: Glucose control per hospitalist service, appreciate their assistance Proph: Patient encouraged to ambulate as tolerated, SCDs, plan for Lovenox tomorrow so long as CBC is stable Dispo: Continue inpatient stay Charges/Coding Visit Charges Inpatient E&M: 33629 Subs Hosp L2 03/07/23 0916 <Electronically signed by Santosh Ballard MD> Cosigner Signature (if applicable): CC: ~ Signed [facility] Work Phone: 1(305) 128-898301-24-[address] [facility] 03-06-2023 Consult note Author Jameson Snell [facility] March 06, 2023 2:59pm Note Date/Time March 06, 2023 8 :45am [facility] Medical Records Department [address] [place] [address] Consultation - Hospitalist 03/06/23 0844 MR#: [id number] Acct: [id number] Name: NGUYEN QUEEN Rep #:[id number] : 1945 77 From: Jameson Martinez PCP: Dr. Jeff Simeon, DO Status:AD M IN Location: [facility] [id number]- [id number] Assessment & Plan Assessment/Plan (1) Retrocecal abscess: PLAN: Plan This 77-year-old woman being consulted for medical management for perioperative management of retrocecal abscess. 1. Right lower quadrant abdominal pain most likely due to retrocecal abscess: She might have developed retrocecal abscess probably after perforation of appendicitis/inflamed appendix or possible perforated diverticulitis with suspicion of possibility of neoplasm: Patient is being taken for surgery today. Currently n.p.o. on empiric IV antibiotics. Continue incentive spirometry. 2. Diabetes mellitus type 2: Accu-Chek ACH cover with Humalog sliding scale. Glucose is reasonably controlled, 195 and 147. A1c 6.6. Hold oral hypoglycemicagents as patient is n.p.o. and also going for surgery. 3. Hypertension: Blood pressure is controlled. At home, patient is on [id number] mg daily. IV hydralazine as needed during n.p.o. status. 4. Hypothyroidism: Hold thyroxine. 5. Other chronic comorbidities include GERD, migraine and rheumatoid arthritis and history of seizure: Patient not on any antiepileptic medications. On baby aspirin. IV PPI 40 mg once daily ordered. VTE prophylaxis bilateral SCDs. Postop VTE prophylaxis as per surgeons discretion depending on the risk of postop bleeding. Living will/advanced directive/end of life care: Patient does not have living will or advanced directive. She states her next of kin is her niece. After discussion of benefits/risks procedures involved with full code, DNR CC arrest and DNR CC, the patient opted for full code. Patient does want artificial life support including intubation, tube feed, ventilator and/chest compression, central venous catheter, vasopressor and DC shock if needed Total time spent in [id number] encounter in discussion of advanced directive 17 minutes. Laboratory Results 03/05/23 19:30: Urine Color Yellow, Urine Clarity Sl. Cloudy, Urine pH 5.0, Ur Specific Marion 1.025, Urine Protein 30 H, Urine Glucose (UA) Normal, Urine Ketones 5 H, Urine Occult Blood 10 H, Urine Nitrite Negative, Urine Bilirubin 3 H, Urine Urobilinogen 1 H, Ur Leukocyte Esterase 100 H, Urine RBC 0 SEEN, Urine WBC 0-5 SEEN, Ur Squamous Epith Cells 0-5 SEEN, Urine Bacteria 1+, Urine Mucus 0SEEN 03/05/23 19:45: WBC 14.9 H, RBC 4.79, Hgb 10.7 L, Hct 35.7 L, MCV 74.5 L, MCH 22.3 L, MCHC 30.0 L, RDW Std Deviation 36.4, RDW Coeff of Anand 13.5, Plt Count 474 H, MPV 9.6, Immature Gran % (Auto) 0.700, Neut % (Auto) 83.7 H, Lymph % (Auto) 7.9 L, [place] % (Auto) 6.6, Eos % (Auto) 0.8, Baso % (Auto) 0.3, Absolute Neuts (auto) 12.5 H, Absolute Lymphs (auto) 1.18, Nucleated RBC % 0, Sodium 137, Potassium 3.9, Chloride 102, Carbon Dioxide 27.0, Anion Gap 8, BUN 16, Creatinine 0.82, Estim Creat Clear Calc 58.78, Est GFR (MDRD) Af Amer 87, Est GFR (MDRD) Non-Af 72, BUN/Creatinine Ratio 19.5, Glucose 252 H, Hemoglobin A1c 6.6 H, Calcium 9.2, Total Bilirubin 0.30, AST 6 L, ALT 11 L, Alkaline Phosphatase 107, Total Protein 7.3, Albumin 2.8 L, Globulin 4.5 H, Albumin/Globulin Ratio 0.6 L, Lipase 13 03/06/23 04:17: WBC 14.0 H, RBC 4.54, Hgb 10.0 L, Hct 33.2 L, MCV 73.1 L, MCH 22.0 L, MCHC 30.1 L, RDW Std Deviation 36.0, RDW Coeff of Anand 13.5, Plt Count 441, MPV 9.8, Immature Gran % (Auto) 0.700, Neut % (Auto) 83.9 H, Lymph % (Auto)6.4 L, [place] % (Auto) 7.8, Eos % (Auto) 0.8, Baso % (Auto) 0.4, Absolute Neuts (auto) 11.8 H, Absolute Lymphs (auto) 0.90, Nucleated RBC % 0, Sodium 135 L, Potassium 3.7, Chloride 105, Carbon Dioxide 22.0, Anion Gap 8, BUN 11, Creatinine 0.56, Estim Creat Clear Calc 60.60, Est GFR (MDRD) Af Amer 135, Est GFR (MDRD) Non-Af 112, BUN/Creatinine Ratio 19.6, Glucose 195 H, Calcium 8.3 L, Phosphorus 2.9, Magnesium 1.6, Carcinoembryonic Ag Pending 03/06/23 06:33: POC Glucose 195 H 03/06/23 11:39: POC Glucose 147 H HPI Consult Data Date of Consult: 03/06/23 HPI Narrative Reason for Consultation: Perioperative management for chronic medical conditionsincluding diabetes HPI Narrative: NGUYEN QUEEN, is a 77 F who is being admitted under surgical service for rightlower quadrant abdominal pain. Patient is stated she had gallbladder surgery, lap carter by Dr. Holloway last March 2022 and since then she is having on and off right- sided abdominal pain for which her PCP states probably postop pain from the gallbladder surgery. When the pain got progressively worse over the past 3 days with loss of appetite with more frequent and prolonged she came to ER. Denies any fever or chills. CT abdomen and pelvis was done in ED without contrast which shows 4.4 cm retrocecal mass/abscess concerning for possible neoplastic perforation versus perforated diverticulitis and hypothyroidism. She denies chronic heart conditions including FL/unstable angina or CHF. Denies chronic lung disease. 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 right eye Home Medications ondansetron 4 mg disintegrating tablet 4 mg PO Q8H PRN PRN Nausea #20 tabs 12/21/20 [Rx Last Taken Unknown] aspirin 81 mg capsule 81 mg PO DAILY HEART 03/05/23 [History Last Taken Unknown] famotidine 1 tab PO DAILY INDIGESTION 03/05/23 [History Last Taken Unknown] fexofenadine 1 tab PO DAILY ALLERGIES 03/05/23 [History Last Taken Unknown] glimepiride 2 mg tablet 2 mg PO DAILY 03/05/23 [History Last Taken Unknown] levothyroxine 150 mcg tablet 150 mcg PO QHS 03/05/23 [History Last Taken Unknown] losartan 50 mg tablet 50 mg PO DAILY 03/05/23 [History Last Taken Unknown] metformin 500 mg tablet 1,000 mg PO BID 03/05/23 [History Last Taken Unknown] Allergy/AdvReac Type Severity Reaction Status Date / Time diphenhydramine Allergy PT UNSURE Verified 12/21/20 18:22 [From Benadryl] OF REACTION Penicillins Allergy PT UNSURE Verified 12/21/20 18:22 OF REACTION Surgical History Hx of cholecystectomy Social History Smoking Status: Never smoker ROS ROS Narrative Constitutional: Reports fatigue and weakness. No fever. HEENT: Reports systems reviewed and no addt'l complaints, except as documented Respiratory/Chest: No acute shortness of breath or respiratory distress or wheezing. CVS: Denies chest pain pressure or tightness. Gastrointestinal: Right-sided abdominal pain as described in HPI. Denies vomiting/hematemesis. Genitourinary: Denies burning urination or new urinary tract symptoms Musculoskeletal: Denies acute joint pain or limited range of motion. No acute injury Neurologic: Denies seizure-like symptoms. skin: No ulcer. No rash Endocrinology: Reports systems reviewed and no addt'l complaints, except as documented Hematologic/Lymphatic: Reports systems reviewed and no addt'l complaints, exceptas documented Rest 14 ROS are negative except as mentioned in HPI Physical Exam Narrative General: Alert, Oriented x3, Cooperative HEENT: Atraumatic, PERRLA, EOMI, Normocephalic Oral: Oral mucosa dry. Currently NPO. No Gingival or Mucosal Lesions/ Ulcerations Neck: Supple, No JVD, Negative Carotid Bruits Lungs: Air entry diminished in bilateral lung bases. No crepitation/rhonchi Cardiovascular: Regular rate, Regular Rhythm, Normal S1, Normal S2, No murmurs Abdomen: Soft, tenderness present over right lower quadrant. No guarding/rigidity. Bowel sounds sluggish. No palpable mass. : No renal angle tenderness. No suprapubic tenderness. Extremities: No edema, Capillary Refill Less than 3 Seconds Skin: No rashes, No breakdown Musculoskeletal: No Tenderness to Palpation of Joints or Extremities Neurological: Cranial nerves II-XII grossly intact, DTR 2+/4. No acute focal neurological deficit. Psych/Mental Status: Normal Affect, Appropriate. Lab / Micro Data 03/06/23 04:17 03/06/23 04:17 Labs: Laboratory Results - last 24 hr 03/05/23 19:30: Urine Color Yellow, Urine Clarity Sl. Cloudy, Urine pH 5.0, Ur Specific Marion 1.025, Urine Protein 30 H, Urine Glucose (UA) Normal, Urine Ketones 5 H, Urine Occult Blood 10 H, Urine Nitrite Negative, Urine Bilirubin 3 H, Urine Urobilinogen 1 H, Ur Leukocyte Esterase 100 H, Urine RBC 0 SEEN, Urine WBC 0-5 SEEN, Ur Squamous Epith Cells 0-5 SEEN, Urine Bacteria 1+, Urine Mucus 0SEEN 03/05/23 19:45: WBC 14.9 H, RBC 4.79, Hgb 10.7 L, Hct 35.7 L, MCV 74.5 L, MCH 22.3 L, MCHC 30.0 L, RDW Std Deviation 36.4, RDW Coeff of Anand 13.5, Plt Count 474 H, MPV 9.6, Immature Gran % (Auto) 0.700, Neut % (Auto) 83.7 H, Lymph % (Auto) 7.9 L, [place] % (Auto) 6.6, Eos % (Auto) 0.8, Baso % (Auto) 0.3, Absolute Neuts (auto) 12.5 H, Absolute Lymphs (auto) 1.18, Nucleated RBC % 0, Sodium 137,Potassium 3.9, Chloride 102, Carbon Dioxide 27.0, Anion Gap 8, BUN 16, Creatinine 0.82, Estim Creat Clear Calc 58.78, Est GFR (MDRD) Af Amer 87, Est GFR(MDRD) Non-Af 72, BUN/Creatinine Ratio 19.5, Glucose 252 H, Hemoglobin A1c 6.6 H, Calcium 9.2, Total Bilirubin 0.30, AST 6 L, ALT 11 L, Alkaline Phosphatase 107, Total Protein 7.3, Albumin 2.8 L, Globulin 4.5 H, Albumin/Globulin Ratio 0.6 L, Lipase 13 03/06/23 04:17: WBC 14.0 H, RBC 4.54, Hgb 10.0 L, Hct 33.2 L, MCV 73.1 L, MCH 22.0 L, MCHC 30.1 L, RDW Std Deviation 36.0, RDW Coeff of Anand 13.5, Plt Count 441, MPV 9.8, Immature Gran % (Auto) 0.700, Neut % (Auto) 83.9 H, Lymph % (Auto)6.4 L, [place] % (Auto) 7.8, Eos % (Auto) 0.8, Baso % (Auto) 0.4, Absolute Neuts (auto) 11.8 H, Absolute Lymphs (auto) 0.90, Nucleated RBC % 0, Sodium 135 L, Potassium 3.7, Chloride 105, Carbon Dioxide 22.0, Anion Gap 8, BUN 11, Creatinine 0.56, Estim Creat Clear Calc 60.60, Est GFR (MDRD) Af Amer 135, Est GFR (MDRD) Non-Af 112, BUN/Creatinine Ratio 19.6, Glucose 195 H, Calcium 8.3 L, Phosphorus 2.9, Magnesium 1.6 03/06/23 06:33: POC Glucose 195 H Imagaing Radiology Impression Abdomen/Pelvis CT 03/05/23 20:03 IMPRESSION: Very limited by the absence of IV and especially oral contrast. Extensive inflammatory process of the right lower quadrant associated with irregular bowel wall thickening of the right colon, probable perforation, and retrocecal abscess. Findings could represent perforated diverticulitis or perforated neoplasm. Colonoscopy is indicated. Nonobstructing left renal stone. The Nonstandard Physician Communication protocol was initiated. Electronically Signed: Cristino Gonzalez MD at 20:58 EST , ADDENDUM: 03/05/23 2210 IMPRESSION: Very limited by the absence of IV and especially oral contrast. Extensive inflammatory process of the right lower quadrant associated with irregular bowel wall thickening of the right colon, probable perforation, and retrocecal abscess. Findings could represent perforated diverticulitis or perforated neoplasm. Colonoscopy is indicated. Nonobstructing left renal stone. The Nonstandard Physician Communication protocol was initiated. N.B. : Stas Arredondo DO, confirmed on 03/05/2023 22:04:07 (ET) that the healthcare facility has received the radiology report. Electronically Signed: Cristino Gonzalez MD at 20:58 EST , Abdomen/Pelvis CT 03/06/23 22:40 IMPRESSION: Wall thickening of the ascending colon with pericolonic collection consistent with contained perforation and/or early abscess. Etiology may be due to inflammatory process or colitis, but is suspicious for neoplasm with irregular wall thickening, multiple adjacent enlarged lymph nodes. Also the appendix is not visualized, perforated retrocecal appendicitis less likely but is not entirely excluded. Electronically Signed: Karen Hook MD at 2:15 EST , Charges/Coding Visit Charges Office Visits / Consults: 42604 IP Consult L4 Procedures Hospitalists Procedures: 22157 Advncd Care Plan 30 Min 03/06/23 1459 <Electronically signed by Jameson Snell MD> Cosigner Signature (if applicable): CC: MELYSSA Lynn; Felipe Walters MD; Dr. Emma Dubois MD; Dr. King Carroll DO; Dr. Nohelia Lazar MD; Dr. Rafia Rousseau MD; Dr. Rafia Marroquin MD; Dr. Marisel Castellon MD; Dr. Venu Cuevas MD; Dr. Venu Erazo DO; Dr. Stas Shelley DO; Dr. Marily Guajardo MD; Dr. Petros Espinoza DO;Dr. Jeff Simeon DO; Dr. Maco Richardson MD; Dr. Barbara Man DO; Dr. Leno Sun DO; Dr. Sheri Rooney DO; Dr. Zuri Peterson MD; Dr. Francois Putnam MD; Dr. Mary Cotter MD; Dr. Canelo Fletcher MD; Joey Myers; BARRY Menezes; Casey Gupta MD~ Signed [facility] Work Phone: 1(386) 581-926101-23-2024 Progress note Author Nguyen Sloan [facility] March 06, 2023 8:17am Note Date/Time March 06, 2023 8 :10am [facility] Medical Records Department [address] [place] [address] Progress Note - Surgery 03/06/23 0804 MR#: [id number] Acct: [id number] Name: NGUYEN QUEEN Rep #:[id number] : 1945 77 From: Nguyen REDDY PA-C PCP: Dr. Jeff Simeon, DO Status:AD M IN Location: [facility] [id number]- [id number] Subjective Subjective Patient is a 77 y/o F I am following in conjunction with Dr. Ballard. She notes right lower quadrant which waxed and waned over night. Patient notes history of diabetes which is well controlled. Patient does all of her doctoring with the [facility]. She denies nausea, vomiting this morning. Objective Data Objective Data Vital Signs: Vital Signs Temp Pulse Resp BP Pulse Ox O2 Del Method 98 F 105 H 16 94/70 93 Room Air 03/06/23 06:45 03/06/23 06:45 03/06/23 06:45 03/06/23 06:45 03/06/23 06:45 03/06/23 06:45 Oxygen Delivery Method Room Air Weight: 174 lb 14.4 oz Body Mass Index (BMI) 30.9 Intake & Output: Intake and Output for Last 24 Hours 03/04/23 03/05/23 03/06/23 23:59 23:59 23:59 Intake Total 1120 / 1120 120 / 120 Balance 1120 / 1120 120 / 120 Lab / Micro Data 03/06/23 04:17 03/06/23 04:17 Labs: Laboratory Results - last 24 hr 03/05/23 19:30: Urine Color Yellow, Urine Clarity Sl. Cloudy, Urine pH 5.0, Ur Specific [place] 1.025, Urine Protein 30 H, Urine Glucose (UA) Normal, Urine Ketones 5 H, Urine Occult Blood 10 H, Urine Nitrite Negative, Urine Bilirubin 3 H, Urine Urobilinogen 1 H, Ur Leukocyte Esterase 100 H, Urine RBC 0 SEEN, Urine WBC 0-5 SEEN, Ur Squamous Epith Cells 0-5 SEEN, Urine Bacteria 1+, Urine Mucus 0SEEN 03/05/23 19:45: WBC 14.9 H, RBC 4.79, Hgb 10.7 L, Hct 35.7 L, MCV 74.5 L, MCH 22.3 L, MCHC 30.0 L, RDW Std Deviation 36.4, RDW Coeff of Anand 13.5, Plt Count 474 H, MPV 9.6, Immature Gran % (Auto) 0.700, Neut % (Auto) 83.7 H, Lymph % (Auto) 7.9 L, [place] % (Auto) 6.6, Eos % (Auto) 0.8, Baso % (Auto) 0.3, Absolute Neuts (auto) 12.5 H, Absolute Lymphs (auto) 1.18, Nucleated RBC % 0, Sodium 137,Potassium 3.9, Chloride 102, Carbon Dioxide 27.0, Anion Gap 8, BUN 16, Creatinine 0.82, Estim Creat Clear Calc 58.78, Est GFR (MDRD) Af Amer 87, Est GFR (MDRD) Non-Af 72, BUN/Creatinine Ratio 19.5, Glucose 252 H, Hemoglobin A1c 6.6 H, Calcium 9.2, Total Bilirubin 0.30, AST 6 L, ALT 11 L, Alkaline Phosphatase 107, Total Protein 7.3, Albumin 2.8 L, Globulin 4.5 H, Albumin/Globulin Ratio 0.6 L, Lipase 13 03/06/23 04:17: WBC 14.0 H, RBC 4.54, Hgb 10.0 L, Hct 33.2 L, MCV 73.1 L, MCH 22.0 L, MCHC 30.1 L, RDW Std Deviation 36.0, RDW Coeff of Anand 13.5, Plt Count 441, MPV 9.8, Immature Gran % (Auto) 0.700, Neut % (Auto) 83.9 H, Lymph % (Auto)6.4 L, [place] % (Auto) 7.8, Eos % (Auto) 0.8, Baso % (Auto) 0.4, Absolute Neuts (auto) 11.8 H, Absolute Lymphs (auto) 0.90, Nucleated RBC % 0, Sodium 135 L, Potassium 3.7, Chloride 105, Carbon Dioxide 22.0, Anion Gap 8, BUN 11, Creatinine 0.56, Estim Creat Clear Calc 60.60, Est GFR (MDRD) Af Amer 135, Est GFR (MDRD) Non-Af 112, BUN/Creatinine Ratio 19.6, Glucose 195 H, Calcium 8.3 L, Phosphorus 2.9, Magnesium 1.6 03/06/23 06:33: POC Glucose 195 H Radiography Diagnostic Testing: Radiology Impression Abdomen/Pelvis CT 03/05/23 20:03 IMPRESSION: Very limited by the absence of IV and especially oral contrast. Extensive inflammatory process of the right lower quadrant associated with irregular bowel wall thickening of the right colon, probable perforation, and retrocecal abscess. Findings could represent perforated diverticulitis or perforated neoplasm. Colonoscopy is indicated. Nonobstructing left renal stone. The Nonstandard Physician Communication protocol was initiated. Electronically Signed: Cristino Gonzalez MD at 20:58 EST , ADDENDUM: 03/05/23 2210 IMPRESSION: Very limited by the absence of IV and especially oral contrast. Extensive inflammatory process of the right lower quadrant associated with irregular bowel wall thickening of the right colon, probable perforation, and retrocecal abscess. Findings could represent perforated diverticulitis or perforated neoplasm. Colonoscopy is indicated. Nonobstructing left renal stone. The Nonstandard Physician Communication protocol was initiated. N.B. : Stas Arredondo DO, confirmed on 03/05/2023 22:04:07 (ET) that the healthcare facility has received the radiology report. Electronically Signed: Cristino Gonzalez MD at 20:58 EST , Abdomen/Pelvis CT 03/06/23 22:40 IMPRESSION: Wall thickening of the ascending colon with pericolonic collection consistent with contained perforation and/or early abscess. Etiology may be due to inflammatory process or colitis, but is suspicious for neoplasm with irregular wall thickening, multiple adjacent enlarged lymph nodes. Also the appendix is not visualized, perforated retrocecal appendicitis less likely but is not entirely excluded. Electronically Signed: Karen Hook MD at 2:15 EST , Physical Exam GI GI Narrative: Abdomen- soft, tenderness in the right lower quadrant with guarding and rebound tenderness Assessment & Plan Assessment/Plan (1) Retrocecal abscess: PLAN: I have evaluated this patient in conjunction with Dr. Nellie Ballard will plan to perform a laparoscopic possible conversion to open appendectomy possible cecectomy possible right hemicolectomy. Procedure details,risks and benefits have been explained to the patient. Patient denies any further questions. Hospitalist, Dr. Snell has been contacted to be onboard with medical management. We will continue to monitor this patient. Charges/Coding Visit Charges Inpatient E&M: 09575 Subs Hosp L1 03/06/23 0817 <Electronically signed by Nguyen REDDY PA-C> Cosigner Signature (if applicable): CC: ~ Signed [facility] Work Phone: 1(288) 844-779101-23-2024 Discharge summary Author Stas Arredondo [facility] March 05, 2023 11:24pm Note Date/Time March 05, 2023 7 :19pm [facility] Medical Records Department [address] [place] [address] Emergency Department Summary 03/05/23 MR#: [id number] Acct: [id number] Name: NGUYEN QUEEN BARBARA Rep #:[id number] : 1945 77 From: Stas Betancur PCP: Dr. Jeff Simeon, DO Status:AD M IN Location: [place] [address] HPI HPI - GI History of Present Illness Chief Complaint: Abd Pain Informant: patient Abdominal Pain/Flank Pain Onset: Days Context: Gradual Onset Timing: Continuous Quality: Sharp Location: RLQ Worsened by: Nothing Relieved by: Nothing Nausea/Vomiting/Emesis GI Symptom: Negative for Nausea or Vomiting Diarrhea/Melena/Hematochezia GI Symptom: Negative for Diarrhea, Melena or Hematochezia Associated Symptoms Associated Symptoms: Negative for Dysuria, Frequency or Hematuria Narrative Narrative: Patient presents with right lower abdominal pain that has been getting worse over the past couple days. Patient states she has had some mild pain over the past year. Patient states that the past 2 days she has noticed increasing pain. Patient states she has an appoint with her primary care physician coming up in 2 days. Patient states that today the pain became too severe to wait until her primary care appointment. Patient describes her pain as sharp. Patient states it is mainly over the right lower abdomen. Patient states nothing makes it better and nothing makes it worse. Patient missed a decreased appetite. Patient states she did eat today however. Patient states she ate approximately 1 hour prior to arrival. Patient states she has a history of diabetes and her blood sugars have been trending up over the past several days. Patient states her blood sugars have been in the 200s over the past few days. [facility] Medical History (Updated 03/05/23 @ 21:[address] Stas Arrdeondo DO) Diabetes mellitus Home Medications ondansetron 4 mg disintegrating tablet 4 mg PO Q8H PRN PRN Nausea #20 tabs 12/21/20 [Rx Last Taken Unknown] aspirin 81 mg capsule 81 mg PO DAILY HEART 03/05/23 [History Last Taken Unknown] famotidine PO INDIGESTION 03/05/23 [History Last Taken Unknown] fexofenadine .ROUTE ALLERGIES 03/05/23 [History Last Taken Unknown] glimepiride 2 mg tablet 2 mg PO DAILY 03/05/23 [History Last Taken Unknown] levothyroxine 150 mcg tablet 150 mcg PO QHS 03/05/23 [History Last Taken Unknown] losartan 50 mg tablet 50 mg PO DAILY 03/05/23 [History Last Taken Unknown] metformin 500 mg tablet 1,000 mg PO BID 03/05/23 [History Last Taken Unknown] Allergy/AdvReac Type Severity Reaction Status Date / Time diphenhydramine Allergy PT UNSURE Verified 12/21/20 18:22 [From Benadryl] OF REACTION Penicillins Allergy PT UNSURE Verified 12/21/20 18:22 OF REACTION Surgical History (Updated 03/05/23 @ 19:[address] Stas Arredondo DO) Hx of cholecystectomy Social History Smoking Status: Never smoker ROS ROS ED Constitutional Constitutional ED: Denies chills or fever(s) Eyes Eyes: Denies blurry vision or change in vision ENT ENT ED: Reports rhinorrhea; Denies sore throat Cardiovascular Cardiovascular: Denies chest pain or palpitations Respiratory/Chest Respiratory/Chest: Denies cough or dyspnea Gastrointestinal Gastrointestinal: Reports abdominal pain; Denies nausea or vomiting Genitourinary Genitourinary ED: Denies dysuria or hematuria Musculoskeletal Musculoskeletal: Denies back pain or neck pain Integumentary Denies abscess or rash Neurologic Neurologic: Denies headache(s) or weakness Allergic/Immunologic Allergic/Immunologic ED: Denies mouth swelling or urticaria EXAM Physical Exam Const Vital Signs: 03/05/23 18:59 03/05/23 21:57 Temperature 95.7 F L Temperature Source Temporal Pulse Rate 96 103 H Respiratory Rate 16 16 Blood Pressure 155/65 H 144/74 H Blood Pressure Mean 95 97 Pulse Ox 99 98 Oxygen Delivery Method Room Air Room Air Positive well nourished and well developed General Appearance ED: well developed and NAD HEENT Reports moist mucous membranes Neck supple and no JVD Resp normal respiratory effort and clear to auscultation bilaterally Cardio regular rate and regular rhythm GI Palpation: tender RLQ and RUQ; Negative for guarding or rebound tenderness present Extremity full ROM General Extremety ED: Negative for edema or tenderness General Extremity: Negative for edema Neuro CN's II-XII intact bilaterally, moves all extremities and no sensory deficits noted Sensorium / Orientation: alert Motor Exam: strength 5/5 throughout Psych mental status grossly normal MDM MDM MDM Narrative Medical decision making narrative: Differential diagnosis includes appendicitis, ureteral calculus, urinary tract infection, pyelonephritis, gastroenteritis, pancreatitis, hyperglycemia, and muscular pain. CT scan of the abdomen and pelvis will be obtained to assess forureteral calculus and appendicitis. CBC will be obtained to assess for leukocytosis and anemia. Comprehensive metabolic profile will be obtained to assess for hepatic function, renal function, and electrolyte abnormality. Lipase will be obtained to assess for pancreatitis. Urinalysis will be obtainedto assess for urinary tract infection and hematuria. Lab Data Attestation: I reviewed the patient's lab results. Lab results narrative: CBC was reviewed. White blood cell count was elevated at 14.9. Hemoglobin 7.7 and hematocrit 35.7. Platelets were slightly elevated at 474. Comprehensive metabolic profile was reviewed and was essentially within normal limits. Lipasewas reviewed and was normal at 13. Urinalysis was reviewed. There is no evidence of urinary tract infection or hematuria. Labs: Laboratory Results - last 24 hr 03/05/23 03/05/23 19:30 19:45 WBC 14.9 H RBC 4.79 Hgb 10.7 L Hct 35.7 L MCV 74.5 L MCH 22.3 L MCHC 30.0 L RDW Std Deviation 36.4 RDW Coeff of Anand 13.5 Plt Count 474 H MPV 9.6 Immature Gran % (Auto) 0.700 Neut % (Auto) 83.7 H Lymph % (Auto) 7.9 L [place] % (Auto) 6.6 Eos % (Auto) 0.8 Baso % (Auto) 0.3 Absolute Neuts (auto) 12.5 H Absolute Lymphs (auto) 1.18 Nucleated RBC % 0 Sodium 137 Potassium 3.9 Chloride 102 Carbon Dioxide 27.0 Anion Gap 8 BUN 16 Creatinine 0.82 Estim Creat Clear Calc 58.78 Est GFR (MDRD) Af Amer 87 Est GFR (MDRD) Non-Af 72 BUN/Creatinine Ratio 19.5 Glucose 252 H Hemoglobin A1c 6.6 H Calcium 9.2 Total Bilirubin 0.30 AST 6 L ALT 11 L Alkaline Phosphatase 107 Total Protein 7.3 Albumin 2.8 L Globulin 4.5 H Albumin/Globulin Ratio 0.6 L Lipase 13 Urine Color Yellow Urine Clarity Sl. Cloudy Urine pH 5.0 Ur Specific Marion 1.025 Urine Protein 30 H Urine Glucose (UA) Normal Urine Ketones 5 H Urine Occult Blood 10 H Urine Nitrite Negative Urine Bilirubin 3 H Urine Urobilinogen 1 H Ur Leukocyte Esterase 100 H Urine RBC 0 SEEN Urine WBC 0-5 SEEN Ur Squamous Epith Cells 0-5 SEEN Urine Bacteria 1+ Urine Mucus 0 SEEN Radiography Diagnostic Testing: Clinical Impression(s) from Imaging Studies Abdomen/Pelvis CT 03/05/23 20:03 IMPRESSION: Very limited by the absence of IV and especially oral contrast. Extensive inflammatory process of the right lower quadrant associated with irregular bowel wall thickening of the right colon, probable perforation, and retrocecal abscess. Findings could represent perforated diverticulitis or perforated neoplasm. Colonoscopy is indicated. Nonobstructing left renal stone. The Nonstandard Physician Communication protocol was initiated. Electronically Signed: Cristino Gonzalez MD at 20:58 EST , ADDENDUM: 03/05/232209 IMPRESSION: Very limited by the absence of IV and especially oral contrast. Extensive inflammatory process of the right lower quadrant associated with irregular bowel wall thickening of the right colon, probable perforation, and retrocecal abscess. Findings could represent perforated diverticulitis or perforated neoplasm. Colonoscopy is indicated. Nonobstructing left renal stone. The Nonstandard Physician Communication protocol was initiated. NHardik. : Stas Arredondo DO, confirmed on 03/05/2023 22:04:07 (ET) that the healthcare facility has received the radiology report. Electronically Signed: Cristino Gonzalez MD at 20:58 EST , CT scan of the abdomen pelvis was obtained. There is some inflammatory process of the right lower quadrant with irregular bowel wall thickening of the right colon. There is probable perforation and retrocecal abscess. This was interpreted by the radiologist and was also independently reviewed by myself. Management Discussion w/another healthcare provider: [employer] (Dr. Ballard from general surgery) Treatment and Re-Evaluation :: Patient was given IV fluids, morphine, and Zofran. Due to the patient's penicillin allergy, patient was started on meropenem. Patient was advised of her findings. Patient would prefer to be admitted here. Case will be discussedwith Dr. Ballard from general surgery. Dr. Ballard was in to evaluate the patient. He recommended obtaining CT scan with oral and IV contrast. This was ordered. He will admit the patient to his service. Patient understood and was agreeable with the plan. All questions were answered. Discharge Plan Triage Chief Complaint: Abd Pain ED Provider: Stas Arredondo Dx/Rx/DC Orders Clinical Impression: Retrocecal abscess, Right lower quadrant abdominal pain Primary Care Provider: Jeff Simeon Disposition Disposition: Acute Care Hospital [facility] What to do if you have Problems For any increased pain, shortness of breath, bleeding, nausea or vomiting, chestpain, or any unexpected problems, contact your Primary Care Provider. Call [facility] ([phone]) or report to the closest Emergency Room. Call 911 if necessary. 03/05/232323 <Electronically signed by Stas Arredondo DO> Cosigner Signature (if applicable): CC: Dr. Jeff Simeon DO ~ Signed [facility] Work Phone: 1(306) 157-228101-23-2024 History and physical note Author Santosh Ballard [facility] March 05, 2023 10:59pm Note Date/Time March 05, 2023 1 0:59pm [facility] Medical Records Department [address] [place] [address] History & Physical Exam 03/05/235 MR#: [id number] Acct: [id number] Name: NGUYEN QUEEN Rep #:[id number] : 1945 77 From: Santosh Martinez PCP: Dr. Jeff Simeon, DO Status:RE G ER Location: ED HPI - General General Date of Admission: 03/05/23 Date of Service: 03/05/23 Chief Complaint: Right lower quadrant abdominal pain HPI Narrative NGUYEN QUEEN, is a 77 F, with history of well-controlled diabetes mellitus, who presents to [facility] with complaints of right lower quadrant abdominal pain that has been present and a lower intensity for the last1 year and became acutely worse over the past 48 hours. She shares that this pain has been overall alternating between a dull and sharp character, however, today it became exclusively sharp in character. She notes that it has been associated with some increased fatigue. She shares that her appetite was negatively affected over the past 3 days with this discomfort but her appetite actually improved today prior to the pain intensified. She specifically denies any difficulty with fevers or chills. She has not noticed any impact to her urinary habits. She states more generally that this pain has been present ever since she underwent a lap carter with Dr. Holloway April 11, 2022. She reportsthat she has expressed these concerns multiple times to her primary care provider but was assured that she just needed to give it more time. Patient's ER workup is notable for CBC with leukocytosis of 14.[address] imaging of the abdomen pelvis was performed without contrast but shows a 4.4 cm retrocecal abscess concerning for possible neoplastic perforation versus perforated diverticulitis. Patient shares a chronic history of anemia and states that she takes 6 iron tablets daily for this issue which she has done since roughly the age of 14. Asa result she does have chronically dark-colored stools. Also as part of this diagnosis she confirms a history of close following with colonoscopies. She believes she has had 4 total colonoscopies in her adult life. She states the last colonoscopy was 3-1/2 to [address] Ronquillo. She denies any significant findings that she can recall or any special follow-up. Patient notes that she is adopted and therefore her family history is unclear, however, she reports that she recently discovered that she is 50% Ashkenazi Faith and she attributes many of her allergies (stating that she is allergic to even air [she] breathes to this background. [facility] Medical History (Updated 03/05/23 @ 21:[address] Stas Arredondo, ) Diabetes mellitus Home Medications ondansetron 4 mg disintegrating tablet 4 mg PO Q8H PRN PRN Nausea #20 tabs 12/21/20 [Rx Last Taken Unknown] Allergy/AdvReac Type Severity Reaction Status Date / Time diphenhydramine Allergy PT UNSURE Verified 12/21/20 18:22 [From Benadryl] OF REACTION Penicillins Allergy PT UNSURE Verified 12/21/20 18:22 OF REACTION Surgical History (Updated 03/05/23 @ 19:[address] Stas Arredondo, ) Hx of cholecystectomy Social History Smoking Status: Never smoker ROS Constitutional Constitutional: Reports fatigue; Denies change in weight or chills Gastrointestinal Gastrointestinal: Reports abdominal pain and constipation; Denies diarrhea, melena or nausea Vital Signs Vital Signs Vital Signs: 03/05/23 18:59 03/05/23 21:57 Temperature 95.7 F L Temperature Source Temporal Pulse Rate 96 103 H Respiratory Rate 16 16 Blood Pressure 155/65 H 144/74 H Blood Pressure Mean 95 97 Pulse Ox 99 98 Oxygen Delivery Method Room Air Room Air Weight Weight: 172 lb 14.4 oz Body Mass Index (BMI) 30.6 Physical Exam Const alert and well nourished Constitutional Narrative: Anxious and easily distracted with tangential speech General Appearance: cooperative Resp normal respiratory effort GI GI Narrative: Obese, well-healed surgical scars from prior laparoscopy (including infraumbilical scar), soft, mildly tender to palpation in right lower quadrant without guarding or peritoneal signs Results Lab / Micro Data 03/05/23 19:45 03/05/23 19:45 Labs: Laboratory Results - last 24 hr 03/05/23 19:30: Urine Color Yellow, Urine Clarity Sl. Cloudy, Urine pH 5.0, Ur Specific Marion 1.025, Urine Protein 30 H, Urine Glucose (UA) Normal, Urine Ketones 5 H, Urine Occult Blood 10 H, Urine Nitrite Negative, Urine Bilirubin 3 H, Urine Urobilinogen 1 H, Ur Leukocyte Esterase 100 H, Urine RBC 0 SEEN, Urine WBC 0-5 SEEN, Ur Squamous Epith Cells 0-5 SEEN, Urine Bacteria 1+, Urine Mucus 0SEEN 03/05/23 19:45: WBC 14.9 H, RBC 4.79, Hgb 10.7 L, Hct 35.7 L, MCV 74.5 L, MCH 22.3 L, MCHC 30.0 L, RDW Std Deviation 36.4, RDW Coeff of Anand 13.5, Plt Count 474 H, MPV 9.6, Immature Gran % (Auto) 0.700, Neut % (Auto) 83.7 H, Lymph % (Auto) 7.9 L, [place] % (Auto) 6.6, Eos % (Auto) 0.8, Baso % (Auto) 0.3, Absolute Neuts (auto) 12.5 H, Absolute Lymphs (auto) 1.18, Nucleated RBC % 0, Sodium 137,Potassium 3.9, Chloride 102, Carbon Dioxide 27.0, Anion Gap 8, BUN 16, Creatinine 0.82, Estim Creat Clear Calc 58.78, Est GFR (MDRD) Af Amer 87, Est GFR (MDRD) Non-Af 72, BUN/Creatinine Ratio 19.5, Glucose 252 H, Hemoglobin A1c 6.6 H, Calcium 9.2, Total Bilirubin 0.30, AST 6 L, ALT 11 L, Alkaline Phosphatase 107, Total Protein 7.3, Albumin 2.8 L, Globulin 4.5 H, Albumin/Globulin Ratio 0.6 L, Lipase 13 Imagaing Radiology Impression Abdomen/Pelvis CT 03/05/23 20:03 IMPRESSION: Very limited by the absence of IV and especially oral contrast. Extensive inflammatory process of the right lower quadrant associated with irregular bowel wall thickening of the right colon, probable perforation, and retrocecal abscess. Findings could represent perforated diverticulitis or perforated neoplasm. Colonoscopy is indicated. Nonobstructing left renal stone. The Nonstandard Physician Communication protocol was initiated. Electronically Signed: Cristino Gonzalez MD at 20:58 EST , ADDENDUM: 03/05/23 2210 IMPRESSION: Very limited by the absence of IV and especially oral contrast. Extensive inflammatory process of the right lower quadrant associated with irregular bowel wall thickening of the right colon, probable perforation, and retrocecal abscess. Findings could represent perforated diverticulitis or perforated neoplasm. Colonoscopy is indicated. Nonobstructing left renal stone. The Nonstandard Physician Communication protocol was initiated. N.B. : Stas Arredondo DO, confirmed on 03/05/2023 22:04:07 (ET) that the healthcare facility has received the radiology report. Electronically Signed: Cristino Gonzalez MD at 20:58 EST , Assessment & Plan Assessment/Plan (1) Retrocecal abscess: (2) Right lower quadrant abdominal pain: PLAN: Plan This is a 77-year-old female who presents with acute on chronic right lower quadrant abdominal discomfort and associated fatigue complaints his ER workup shows evidence of acute infectious process with leukocytosis and CT imaging concerning for a 4.4 cm retrocecal abscess. Etiology for this abscess is unclear at present but differential would include possible perforated appendicitis, possible perforated diverticulitis, possible perforated neoplasm... I have tried to convey this information to Ms. Queen as well as the limitations of her understanding of her diagnosis using accompanying hand drawings to illustrate the relevant anatomy. She appears very apprehensive and undecided?even suggesting that she could be dismissed home and follow-up with her primary care provider before committing to treatment. I have tried to impress upon her that this must be dealt with in an expedient fashion and recommended to her that we proceed with treatment here at [facility] or otherwise seek transfer to a [facility] facility where she apparently has more extensive medical records. She confirms her intent to see her care through here [facility] and I therefore recommend that we proceed with repeat CT imaging with oral and IV contrast as a means of hopefully providing more preoperative information. Even still, I have counseledher that we would be looking to consent her for an operation could include possible appendectomy versus possible cecectomy versus possible right hemicolectomy?and that this is the side a moment would likely be intraoperative and is contingent on intraoperative findings. When asked what the risks of thisprocedure would be, I have shared that this would be accompanied by anastomotic failure risk as well as risk for persistent loose stools postoperatively. Patient initially seems very hung up on this latter possibility, but understandsthat it could be an excepted side effect secondary to some of the other diagnoses considered. For the present we will proceed with n.p.o. status, empiric IV antibiotic therapy, repeat CT imaging, and plans to proceed to the ORtomorrow. Charges/Coding Visit Charges Inpatient E&M: 83214 Init Hosp L2 03/05/23 5869 <Electronically signed by Santosh Ballard MD> Cosigner Signature (if applicable): CC: Dr. Jeff Simeon DO; Dr. Santosh Ballard MD~ Signed [facility] Work Phone: 1(447) 840-786601-22-2024 Discharge summary Author Stas Arredondo [facility] March 05, 2023 11:24pm Note Date/Time March 05, 2023 7 :19pm [facility] Medical Records Department [address] [place] [address] Emergency Department Summary 03/05/23 MR#: [id number] Acct: [id number] Name: NGUYEN QUEEN Rep #:[id number] : 1945 77 From: Stas Betancur PCP: Dr. Jeff Simeon DO Status:AD M IN Location: [place] [address] HPI HPI - GI History of Present Illness Chief Complaint: Abd Pain Informant: patient Abdominal Pain/Flank Pain Onset: Days Context: Gradual Onset Timing: Continuous Quality: Sharp Location: RLQ Worsened by: Nothing Relieved by: Nothing Nausea/Vomiting/Emesis GI Symptom: Negative for Nausea or Vomiting Diarrhea/Melena/Hematochezia GI Symptom: Negative for Diarrhea, Melena or Hematochezia Associated Symptoms Associated Symptoms: Negative for Dysuria, Frequency or Hematuria Narrative Narrative: Patient presents with right lower abdominal pain that has been getting worse over the past couple days. Patient states she has had some mild pain over the past year. Patient states that the past 2 days she has noticed increasing pain. Patient states she has an appoint with her primary care physician coming up in 2 days. Patient states that today the pain became too severe to wait until her primary care appointment. Patient describes her pain as sharp. Patient states it is mainly over the right lower abdomen. Patient states nothing makes it better and nothing makes it worse. Patient missed a decreased appetite. Patient states she did eat today however. Patient states she ate approximately 1 hour prior to arrival. Patient states she has a history of diabetes and her blood sugars have been trending up over the past several days. Patient states her blood sugars have been in the 200s over the past few days. [facility] Medical History (Updated 03/05/23 @ 21:[address] Stas Arredondo DO) Diabetes mellitus Home Medications ondansetron 4 mg disintegrating tablet 4 mg PO Q8H PRN PRN Nausea #20 tabs 12/21/20 [Rx Last Taken Unknown] aspirin 81 mg capsule 81 mg PO DAILY HEART 03/05/23 [History Last Taken Unknown] famotidine PO INDIGESTION 03/05/23 [History Last Taken Unknown] fexofenadine .ROUTE ALLERGIES 03/05/23 [History Last Taken Unknown] glimepiride 2 mg tablet 2 mg PO DAILY 03/05/23 [History Last Taken Unknown] levothyroxine 150 mcg tablet 150 mcg PO QHS 03/05/23 [History Last Taken Unknown] losartan 50 mg tablet 50 mg PO DAILY 03/05/23 [History Last Taken Unknown] metformin 500 mg tablet 1,000 mg PO BID 03/05/23 [History Last Taken Unknown] Allergy/AdvReac Type Severity Reaction Status Date / Time diphenhydramine Allergy PT UNSURE Verified 12/21/20 18:22 [From Benadryl] OF REACTION Penicillins Allergy PT UNSURE Verified 12/21/20 18:22 OF REACTION Surgical History (Updated 03/05/23 @ 19:[address] Stas Arredondo DO) Hx of cholecystectomy Social History Smoking Status: Never smoker ROS ROS ED Constitutional Constitutional ED: Denies chills or fever(s) Eyes Eyes: Denies blurry vision or change in vision ENT ENT ED: Reports rhinorrhea; Denies sore throat Cardiovascular Cardiovascular: Denies chest pain or palpitations Respiratory/Chest Respiratory/Chest: Denies cough or dyspnea Gastrointestinal Gastrointestinal: Reports abdominal pain; Denies nausea or vomiting Genitourinary Genitourinary ED: Denies dysuria or hematuria Musculoskeletal Musculoskeletal: Denies back pain or neck pain Integumentary Denies abscess or rash Neurologic Neurologic: Denies headache(s) or weakness Allergic/Immunologic Allergic/Immunologic ED: Denies mouth swelling or urticaria EXAM Physical Exam Const Vital Signs: 03/05/23 18:59 03/05/23 21:57 Temperature 95.7 F L Temperature Source Temporal Pulse Rate 96 103 H Respiratory Rate 16 16 Blood Pressure 155/65 H 144/74 H Blood Pressure Mean 95 97 Pulse Ox 99 98 Oxygen Delivery Method Room Air Room Air Positive well nourished and well developed General Appearance ED: well developed and NAD HEENT Reports moist mucous membranes Neck supple and no JVD Resp normal respiratory effort and clear to auscultation bilaterally Cardio regular rate and regular rhythm GI Palpation: tender RLQ and RUQ; Negative for guarding or rebound tenderness present Extremity full ROM General Extremety ED: Negative for edema or tenderness General Extremity: Negative for edema Neuro CN's II-XII intact bilaterally, moves all extremities and no sensory deficits noted Sensorium / Orientation: alert Motor Exam: strength 5/5 throughout Psych mental status grossly normal MDM MDM MDM Narrative Medical decision making narrative: Differential diagnosis includes appendicitis, ureteral calculus, urinary tract infection, pyelonephritis, gastroenteritis, pancreatitis, hyperglycemia, and muscular pain. CT scan of the abdomen and pelvis will be obtained to assess forureteral calculus and appendicitis. CBC will be obtained to assess for leukocytosis and anemia. Comprehensive metabolic profile will be obtained to assess for hepatic function, renal function, and electrolyte abnormality. Lipase will be obtained to assess for pancreatitis. Urinalysis will be obtainedto assess for urinary tract infection and hematuria. Lab Data Attestation: I reviewed the patient's lab results. Lab results narrative: CBC was reviewed. White blood cell count was elevated at 14.9. Hemoglobin 7.7 and hematocrit 35.7. Platelets were slightly elevated at 474. Comprehensive metabolic profile was reviewed and was essentially within normal limits. Lipasewas reviewed and was normal at 13. Urinalysis was reviewed. There is no evidence of urinary tract infection or hematuria. Labs: Laboratory Results - last 24 hr 03/05/23 03/05/23 19:30 19:45 WBC 14.9 H RBC 4.79 Hgb 10.7 L Hct 35.7 L MCV 74.5 L MCH 22.3 L MCHC 30.0 L RDW Std Deviation 36.4 RDW Coeff of Anand 13.5 Plt Count 474 H MPV 9.6 Immature Gran % (Auto) 0.700 Neut % (Auto) 83.7 H Lymph % (Auto) 7.9 L [place] % (Auto) 6.6 Eos % (Auto) 0.8 Baso % (Auto) 0.3 Absolute Neuts (auto) 12.5 H Absolute Lymphs (auto) 1.18 Nucleated RBC % 0 Sodium 137 Potassium 3.9 Chloride 102 Carbon Dioxide 27.0 Anion Gap 8 BUN 16 Creatinine 0.82 Estim Creat Clear Calc 58.78 Est GFR (MDRD) Af Amer 87 Est GFR (MDRD) Non-Af 72 BUN/Creatinine Ratio 19.5 Glucose 252 H Hemoglobin A1c 6.6 H Calcium 9.2 Total Bilirubin 0.30 AST 6 L ALT 11 L Alkaline Phosphatase 107 Total Protein 7.3 Albumin 2.8 L Globulin 4.5 H Albumin/Globulin Ratio 0.6 L Lipase 13 Urine Color Yellow Urine Clarity Sl. Cloudy Urine pH 5.0 Ur Specific Marion 1.025 Urine Protein 30 H Urine Glucose (UA) Normal Urine Ketones 5 H Urine Occult Blood 10 H Urine Nitrite Negative Urine Bilirubin 3 H Urine Urobilinogen 1 H Ur Leukocyte Esterase 100 H Urine RBC 0 SEEN Urine WBC 0-5 SEEN Ur Squamous Epith Cells 0-5 SEEN Urine Bacteria 1+ Urine Mucus 0 SEEN Radiography Diagnostic Testing: Clinical Impression(s) from Imaging Studies Abdomen/Pelvis CT 03/05/23 20:03 IMPRESSION: Very limited by the absence of IV and especially oral contrast. Extensive inflammatory process of the right lower quadrant associated with irregular bowel wall thickening of the right colon, probable perforation, and retrocecal abscess. Findings could represent perforated diverticulitis or perforated neoplasm. Colonoscopy is indicated. Nonobstructing left renal stone. The Nonstandard Physician Communication protocol was initiated. Electronically Signed: Cristino Gonzalez MD at 20:58 EST , ADDENDUM: 03/05/23 2210 IMPRESSION: Very limited by the absence of IV and especially oral contrast. Extensive inflammatory process of the right lower quadrant associated with irregular bowel wall thickening of the right colon, probable perforation, and retrocecal abscess. Findings could represent perforated diverticulitis or perforated neoplasm. Colonoscopy is indicated. Nonobstructing left renal stone. The Nonstandard Physician Communication protocol was initiated. N.B. : Stas Arredondo DO, confirmed on 03/05/2023 22:04:07 (ET) that the healthcare facility has received the radiology report. Electronically Signed: Cristino Gonzalez MD at 20:58 EST , CT scan of the abdomen pelvis was obtained. There is some inflammatory process of the right lower quadrant with irregular bowel wall thickening of the right colon. There is probable perforation and retrocecal abscess. This was interpreted by the radiologist and was also independently reviewed by myself. Management Discussion w/another healthcare provider: [employer] (Dr. Ballard from general surgery) Treatment and Re-Evaluation :: Patient was given IV fluids, morphine, and Zofran. Due to the patient's penicillin allergy, patient was started on meropenem. Patient was advised of her findings. Patient would prefer to be admitted here. Case will be discussedwith Dr. Ballard from general surgery. Dr. Ballard was in to evaluate the patient. He recommended obtaining CT scan with oral and IV contrast. This was ordered. He will admit the patient to his service. Patient understood and was agreeable with the plan. All questions were answered. Discharge Plan Triage Chief Complaint: Abd Pain ED Provider: Stas Arredondo Dx/Rx/DC Orders Clinical Impression: Retrocecal abscess, Right lower quadrant abdominal pain Primary Care Provider: Jeff Simeon Disposition Disposition: Acute Care Hospital [facility] What to do if you have Problems For any increased pain, shortness of breath, bleeding, nausea or vomiting, chestpain, or any unexpected problems, contact your Primary Care Provider. Call [facility] ([phone]) or report to the closest Emergency Room. Call 911 if necessary. 03/05/232323 <Electronically signed by Stas Arredondo DO> Cosigner Signature (if applicable): CC: Dr. Jeff Simeon DO ~ Signed [facility] Work Phone: 1(240) 671-726212-14-2023 History of Present illness Narrative* Lani Edmond LPN - 01/25/2023 10:22 AM EST Patient presents for B-12 injection. Denies any problems at this time. Patient instructed on any SEof medication, verbalized understanding and agreed to proceed with treatment. Tolerated injection well. Lnai Edmond LPN [facility] History of Present illness Narrative* Lani Edmond LPN - 12/28/2022 9:50 AM EST Patient presents for B-12 injection. Denies any problems at this time. Patient instructed on any SEof medication, verbalized understanding and agreed to proceed with treatment. Tolerated injection well. Lani Edmond LPN documented in this [facility]Mount [facility]10-[facility]-2023 History of Present illness Narrative* Jeff Simeon DO - 12/12/2022 4:50 PM EDT Patient presents with: F/U 3 Month HPI: Nguyen Queen is a 77 year old female [...] time. She does not check BP's generally. Nguyen gets minimal exercise. PAST MEDICAL HISTORY Diagnosis Date Advance care planning 08/24/2021 [facility] Diabetes mellitus, type 2 (HCC) Environmental allergies Hyperlipidemia Hypothyroidism, unspecified Liver failure (HCC) 2004 unsure of cause Migraine headache onset age 7 PAST SURGICAL HISTORY Procedure Laterality Date BREAST BIOPSY NEEDLE LEFT 12/31/2014 x 2, Dr. Ronquillo COLONOSCOPY FLX DX W/COLLJ SPEC WHEN PFRMD 08/25/2003 adenomatous polyp and diverticulosis. [facility] COLONOSCOPY FLX DX W/COLLJ SPEC WHEN PFRMD 09/28/2006 No polyps found. 5 yr recall. [facility] COLONOSCOPY FLX DX W/COLLJ SPEC WHEN PFRMD 02/26/2018 Colonoscopy ESOPHAGOGASTRODUODENOSCOPY TRANSORAL DIAGNOSTIC 08/31/2003 Unremarkable, negative biopsies. [facility] ESOPHAGOGASTRODUODENOSCOPY TRANSORAL DIAGNOSTIC 02/26/2018 EGD LAPAROSCOPIC CHOLECYSTECTOMY 04/05/2022 REMV CATARACT EXTRACAP,INSERT LENS Bilateral TONSILLECTOMY HX Social History Tobacco Use Smoking status: Never Smokeless tobacco: Never Vaping Use Vaping Use: Never used Substance Use Topics Alcohol use: No Drug use: No FAMILY HISTORY Adopted: Yes Allergies: ALLERGIES Allergen Reactions Benadryl [Diphenhyd* Swelling Penicillins Shortness of Breath Jltjkqo-Udd-Ygy Red* Contraindication-Medical Surgical History of liver failure [...] mg by mouth twice daily.^Disp: ^Rfl: fexofenadine ([place]) 180 mg tablet^Take 180 mg by mouth once daily.^Disp: ^Rfl: ONETOUCH DELICA LANCETS 30 gauge^TEST BLOOD SUGAR(S) TEST BLOOD SUGARS TWICE DAILY. DX: TYPE 2 DM -CONTROLLED E11.9 INSULIN: NO Delecia^Disp: 100 Each^Rfl: 3 [...] 571.8, ICD10: K76.0 - stable, chronic Jeff Simeon DO To ER if develops chest pain, shortness of breath, or severe worsening of symptoms. Discussed risks, benefits, alternatives, and potential side effects of medications. Patient expressed understanding and agreed with the plan. Jeff Simeon DO [address] [place] [address] documented in this encounterMount [facility]10-[facility]-2023 History of Present illness Narrative* Lani Edmond LPN - 11/30/2022 9:16 AM EDT Patient presents for B-12 injection. Denies any problems at this time. Patient instructed on any SEof medication, verbalized understanding and agreed to proceed with treatment. Tolerated injection well. Lani Edmond LPN documented in this encounterMount [facility]10-[facility]-2023 History of Present illness Narrative* Lani Edmond LPN - 11/16/2022 9:00 AM EDT Patient presents for B-12 injection. Denies any problems at this time. Patient instructed on any SEof medication, verbalized understanding and agreed to proceed with treatment. Tolerated injection well. Lani Edmond LPN documented in this encounterMount [facility]09-[facility]23 History of Present illness Narrative* Lani Edmond LPN - 11/03/2022 8:53 AM EDT Patient presents for B-12 injection. Denies any problems at this time. Patient instructed on any SEof medication, verbalized understanding and agreed to proceed with treatment. Tolerated injection well. Lani Edmond LPN documented in this encounterMount Carmel Health System09-05-2023 History of Present illness Narrative* Lani Edmond LPN - 10/17/2022 9:11 AM EDT Patient presents for B-12 injection. Denies any problems at this time. Patient instructed on any SEof medication, verbalized understanding and agreed to proceed with treatment. Tolerated injection well. Lani Edmond LPN documented in this encounterMount Carmel Health System08-24-2023 Miscellaneous Notes* Telephone Encounter - Maribeth Andrade Ma - 10/05/2022 11:39 AM EDT Left detailed message on voicemail that labs are normal Maribeth Andrade Ma * Telephone Encounter - Jeff Simeon DO - 10/05/2022 10:22 AM EDT Please inform patient that her recent liver enzyme labs and free t4 thyroid levels are normal Jeff Simeon DO documented in this encounterMount Carmel Health System08-21-2023 History of Present illness Narrative* Lani Edmond LPN - 10/02/2022 9:42 AM EDT Patient presents for B-12 injection. Denies any problems at this time. Patient instructed on any SEof medication, verbalized understanding and agreed to proceed with treatment. Tolerated injection well. Lani Edmond LPN documented in this encounterMount Carmel Health System08-08-2023 History of Present illness Narrative* Lani Edmond LPN - 09/19/2022 9:28 AM EDT Patient presents for B-12 injection. Denies any problems at this time. Patient instructed on any SEof medication, verbalized understanding and agreed to proceed with treatment. Tolerated injection well. Lani Edmond LPN documented in this encounterMount Carmel Health System07-25-2023 History of Past illness Narrative* Problem Noted [...] of this encounter (statuses as of 03/16/2023) [facility] of Past illness Narrative* Problem Noted [...] of this encounter (statuses as of 03/22/2023) [facility] of Past illness Narrative* Problem Noted [...] of this encounter (statuses as of 03/22/2023) [address]25-2023 History of Past illness Narrative* Problem [...] of this encounter (statuses as of 04/04/2023) [facility] of Past illness Narrative* Problem Noted [...] as of this encounter (statuses as of 04/16/2023) [address]25-2023 History of Past illness Narrative* Problem [...] as of this encounter (statuses as of 05/02/2023) [facility] of Past illness Narrative* Problem Noted [...] as of this encounter (statuses as of 05/16/2023) [facility] of Past illness Narrative* Problem Noted [...] as of this encounter (statuses as of 05/30/2023) [facility] History of Present illness Narrative* Lani Edmond LPN - 08/07/2022 11:24 AM EDT Patient presents for B-12 injection. Denies any problems at this time. Patient instructed on any SEof medication, verbalized understanding and agreed to proceed with treatment. Tolerated injection well. Lani Edmond LPN documented in this encounterMount Carmel Health System05-30-2023 History of Present illness Narrative* Lani Edmond LPN - 07/11/2022 9:33 AM EDT Patient presents for B-12 injection. Denies any problems at this time. Patient instructed on any SEof medication, verbalized understanding and agreed to proceed with treatment. Tolerated injection well. Lani Edmond LPN documented in this encounterMount Carmel Health System05-01-2023 History of Present illness Narrative* Lani Edmond LPN - 06/12/2022 9:09 AM EDT Patient presents for B-12 injection. Denies any problems at this time. Patient instructed on any SEof medication, verbalized understanding and agreed to proceed with treatment. Tolerated injection well. Lani Edmond LPN documented in this encounterMount Carmel Health System04-14-2023 History of Present illness Narrative* Jeff Simeon DO - 05/26/2022 7:23 AM EDT Patient presents with: F/U 3 Month HPI: Nguyen Queen is a 77 year old female [...] time. She does not check BP's generally. Nguyen gets minimal exercise. PAST MEDICAL HISTORY Diagnosis Date Advance care planning 08/24/2021 MARLEN Diabetes mellitus, type 2 (HCC) Environmental allergies Hyperlipidemia Hypothyroidism, unspecified Liver failure (HCC) 2004 unsure of cause Migraine headache onset age 7 PAST SURGICAL HISTORY Procedure Laterality Date BREAST BIOPSY NEEDLE LEFT 12/31/2014 x 2, Dr. Ronquillo COLONOSCOPY FLX DX W/COLLJ SPEC WHEN PFRMD 08/25/2003 adenomatous polyp and diverticulosis. [facility] COLONOSCOPY FLX DX W/COLLJ SPEC WHEN PFRMD 09/28/2006 No polyps found. 5 yr recall. Guevara. [facility] COLONOSCOPY FLX DX W/COLLJ SPEC WHEN PFRMD 02/26/2018 Colonoscopy ESOPHAGOGASTRODUODENOSCOPY TRANSORAL DIAGNOSTIC 08/31/2003 Unremarkable, negative biopsies. [facility] ESOPHAGOGASTRODUODENOSCOPY TRANSORAL DIAGNOSTIC 02/26/2018 EGD LAPAROSCOPIC CHOLECYSTECTOMY 04/05/2022 REMV CATARACT EXTRACAP,INSERT LENS Bilateral TONSILLECTOMY HX Social History Tobacco Use Smoking status: Never Smokeless tobacco: Never Vaping Use Vaping Use: Never used Substance Use Topics Alcohol use: No Drug use: No FAMILY HISTORY Adopted: Yes Allergies: ALLERGIES Allergen Reactions Benadryl [Diphenhyd* Swelling Penicillins Shortness of Breath Tzryukm-Fue-Kmo Red* Contraindication-Medical Surgical History of liver failure [...] Thyroid.^Disp: 90 tablet^Rfl: 3 blood sugar diagnostic (CheckrTOUCH ULTRA TEST STRIP) test strip^Type 2 diabetes, [...] mg by mouth twice daily.^Disp: ^Rfl: fexofenadine (VALENTINA) 180 mg tablet^Take 180 mg by mouth [...] - IRON + TIBC - CBC Jeff Simeon DO To ER if develops chest pain, shortness of breath, or severe worsening of symptoms. Discussed risks, benefits, alternatives, and potential side effects of medications. Patient expressed understanding and agreed with the plan. Jeff Simeon DO [address] [place] [address] documented in this encounterMount Carmel Health System04-03-2023 History of Present illness Narrative* Lani Edmond LPN - 05/15/2022 9:00 AM EDT Patient presents for B-12 injection. Denies any problems at this time. Patient instructed on any SEof medication, verbalized understanding and agreed to proceed with treatment. Tolerated injection well. Lani Edmond LPN documented in this encounterMount Carmel Health System03-10-2023 History of Present illness Narrative* Nguyen Campos PA-C - 04/21/2022 3:25 PM EST FOLLOW UP VISIT - CHOLECYSTECTOMY NAME: Nguyen Glover [facility] NO.: [id number] DATE OF SERVICE: 04/13/2022 : 1945 REFERRING PHYSICIAN: Jeff Simeon DO Nguyen is a patient I am following for a complaint of right upper quadrant pain. Dr. Holloway performed a laparoscopic cholecystectomy with intraoperative cholangiogram [...] instructed to follow-up with me as needed. Nguyen Campos PA-C documented in this encounterMount Carmel Health System03-02-2023 Instructions* Patient Instructions* Nguyen Campos PA-C - 04/13/2022 9:33 AM EST -Continue warm compresses as needed for discomfort -OK to begin walking dog in the next few days The following instructions are important for you related to your office visit today with the [facility] General Surgeons. INSTRUCTIONS FOLLOWING YOU RECENT [...] you should contact our office immediately @ [phone] and ask to be transferred to the General Surgery department. documented in this encounterMount Carmel Health System02-27-2023 Instructions* Patient Instructions* Nguyen Campos PA-C - 04/10/2022 2:07 PM EST -Heating pad/warm compresses -Aleve short-term for pain -May use abdominal binder when up and ambulating -Call immediately if any worsening symptoms The following instructions are important for you related to your office visit today with the [facility] General Surgeons. INSTRUCTIONS FOLLOWING YOU RECENT [...] you should contact our office immediately @ [phone] and ask to be transferred to the General Surgery department. documented in this encounterMount Carmel Health System02-27-2023 History of Present illness Narrative* Nguyen Campos PA-C - 04/10/2022 2:05 PM EST FOLLOW UP VISIT - CHOLECYSTECTOMY NAME: Nguyen Glover [facility] NO.: [id number] DATE OF SERVICE: 04/10/2022 : 1945 REFERRING PHYSICIAN: Jeff Simeon DO Nguyen is a patient I am following for a complaint of right upper quadrant pain. Dr. Holloway performed a laparoscopic cholecystectomy with intraoperative cholangiogram [...] C (97.2 F), height 160 cm (5' 3), weight 83.9 kg (185 lb), SpO2 93 [...] to follow-up with me in 2 days. Nguyen Campos PA-C documented in this encounterMount Carmel Health System02-22-2023 NoteHNO ID: [id number] Author: Kelly Jordan APRN.CLINICAL CARE MANAGER Service: Anesthesiology Author Type: Nurse Hull Molder Type: Anesthesia Procedure Notes Filed: 04/05/2022 7:52 AM Note Text: ANESTHESIOLOGY PROCEDURE NOTE Airway General Information Procedure Start Time/Medication Administration: 04/05/2022 7:40 AM Patient location during procedure: OR Timeout Performed Pre-procedure: timeout performed Consent Obtained: Yes Patient identity confirmed: arm band, care master steam yacht and patient Staffing Anesthesiologist: Nohemi Ortiz MD CLINICAL CARE MANAGER: Kelly Jordan APRN.CLINICAL CARE MANAGER Performed by: CLINICAL CARE MANAGER Indications and Patient Condition Indications for airway [...] 1 Airway not difficult SIGNATURE: Kelly Jordan APRN.CLINICAL CARE MANAGER PATIENT NAME: Nguyen Queen DATE: April 05, 2022 TIME: 7:51 AM CSN: [id number] Instructions* Patient Instructions* Snehal Yee APRN.ELECTRICAL ENGINEERING DIRECTOR - 04/03/2022 12:07 PM EST PATIENT PREOPERATIVE INSTRUCTIONS [facility]: [phone] -- [address] [facility] [address]. Please read below carefully for your personalized [...] with a sip of water: famotidine (pepcid), valentina, and levothyroxine (synthoid). Do not take oral [...] Procedures: - YOU MUST HAVE A RESPONSIBLE NEONATAL NURSE PRACTITIONER TAKE YOU HOME. A PAPER STEAMER OR RIVETER HELPER CANNOT BE MADE A RESPONSIBLE NEONATAL NURSE PRACTITIONER. - We recommend that a responsible person [...] Advance Directive, please fax a copy to [phone] or email to for it to be added to your chart. If you do not have an Advance Directive, you can find the appropriate form and more information at [email or web address]. We recommend that youcomplete the Advance Directive form found on the website and bring it with you the day of your surgery. It can be witnessed and scanned into your chart that day. Snehal Yee APRN.CNP documented in this encounterMount Carmel Health System02-20-2023 History and physical note * Snehal Yee APRN.CNP - 04/03/2022 11:20 AM EST HISTORY AND PHYSICAL EXAMINATION SERVICE DATE: 04/03/2022 SERVICE TIME: 11:40 AM PRIMARY CARE PHYSICIAN: Jeff Simeon DO REASON FOR VISIT: Nguyen Queen is a 76 year old female [...] liver failure patient unsure of the cause. LFTs have been WNL for about 2 years. [...] > 1 time per night or hematuria. RECONCILIATION ANALYST: Negative for abnormal vaginal bleeding, abnormal vaginal [...] WHEN PFRMD 08/25/2003 adenomatous polyp and diverticulosis. [facility] COLONOSCOPY FLX DX W/COLLJ SPEC WHEN PFRMD 09/28/2006 No polyps found. 5 yr recall[facility] W/COLLJ SPEC WHEN PFRMD 02/26/2018 Colonoscopy ESOPHAGOGASTRODUODENOSCOPY TRANSORAL DIAGNOSTIC 08/31/2003 Unremarkable, negative biopsies. [facility] ESOPHAGOGASTRODUODENOSCOPY TRANSORAL DIAGNOSTIC 02/26/2018 EGD REMV [...] by mouth twice daily. Taking Yes fexofenadine (VALENTINA) 180 mg tablet Take 180 mg by [...] - Dx: Type 2 DM - Controlled E11. No medication comments found. ALLERGIES Allergen Reactions Benadryl [Diphenhyd* Swelling Penicillins Shortness of Breath Qubspdj-Bww-Tdi Red* Contraindication-Medical Surgical History of liver failure [...] or any previous visit (from the past 92054 hour(s)). Assessment Patient has the following medical [...] large neck Non-male patient STOP-Bang Score: 2 [id number] Score: Age: 65-74 Sex: Female CHF history: No Hypertension history: Yes Stroke/TIA/thromboembolism history: No Vascular disease history: No Diabetes history: Yes [id number] Score: 4 ASA Class: 2 ANESTHESIA FINDINGS: Intubation History: No history of difficult intubation. No abnormal airway history Significant Anesthesia Considerations: Per patient in the past she's stopped breathing during 2 surgeries. Unsure why this was. Had surgery at [facility] [phone] without issues. potential difficult IV/vein access Airway [...] instructions and voices comprehension and compliance. SIGNATURE: Snehal Yee APRN.CNP PATIENT NAME: Nguyen Queen DATE: April 03, 2022 TIME: 10:38 AM PAGER/CONTACT #: documented in this encounterMount Carmel Health System02-10-2023 History of Present illness Narrative* Jessee Holloway MD - 03/24/2022 11:12 AM EST HISTORY AND PHYSICAL Nguyen Queen 1945 REFERRING PHYSICIAN: Jeff Simeon DO CHIEF COMPLAINT: Consult (Gallbladder US 03/09/22) HPI: Nguyen is a 76 year old female with [...] more recently had an endoscopy performed at [facility] where the anesthesiologist told her that she [...] today at the request of Dr. Jeff Simeon DO for my opinion and advice regarding [...] WHEN PFRMD 08/25/2003 adenomatous polyp and diverticulosis. [facility] COLONOSCOPY FLX DX W/COLLJ SPEC WHEN PFRMD 09/28/2006 No polyps found. 5 yr recall. Guevara. [facility] COLONOSCOPY FLX DX W/COLLJ SPEC WHEN PFRMD 02/26/2018 Colonoscopy ESOPHAGOGASTRODUODENOSCOPY TRANSORAL DIAGNOSTIC 08/31/2003 Unremarkable, negative biopsies. [facility] ESOPHAGOGASTRODUODENOSCOPY TRANSORAL DIAGNOSTIC 02/26/2018 EGD TONSILLECTOMY [...] 325 mg by mouth once daily. fexofenadine (VALENTINA) 180 mg tablet Take 180 mg by [...] 1,000 mcg INTRAMUSCULAR q 4 WEEKS Jeff Simeon DO 1,000 mcg at 03/20/22 0915 cyanocobalamin 1,000 mcg injection 1,000 mcg INTRAMUSCULAR As Directed Jeff iSmeon, DO 1,000 mcg at 10/20/21 0907 ALLERGIES: Benadryl [Diphenhydramine Hcl], Penicillins, and Uigtfhj-Cef-Slq Reductase Inhibitors PERSONAL HISTORY: Social History Tobacco Use Smoking status: Never Smokeless tobacco: Never Vaping Use Vaping Use: Never used Substance Use Topics Alcohol use: No Drug use: No FAMILY HISTORY: FAMILY HISTORY Adopted: Yes REVIEW OF SYMPTOMS: The review of systems data was entered by the nurse and reviewed by ar Nursing Notes: Sheir Roth LPN 03/24/2022 10:30 AM Signed REVIEW [...] C (96.8 F), height 160 cm (5' 3), weight 84.4 kg (186 lb), SpO2 98 [...] Procedure: LAPAROSCOPIC CHOLECYSTECTOMY WITH INTRAOPERATIVE CHOLEANGIOGRAM - 38077-178 Planned antibiotic: clindamycin 900mg IVPB dehydrogenation operator to OR SCDs needed - Yes Grain Drier Operator Needed - Yes Diagnoses: (R10.11) RUQ abdominal pain (K80.20) Calculus of gallbladder without cholecystitis without obstruction (K76.0) Fatty liver My findings have been communicated to Dr. Jeff Simeon DO via shared medical record. This note will be forwarded to Dr. Jeff Simeon DO. Jessee Holloway MD documented in this encounterMount Carmel Health System02-10-2023 Nurse Note* Sheri Roth, WAREHOUSE RECORD CLERK - 03/24/2022 10:27 AM EST REVIEW OF [...] patient's last Mammogram screening? 2021 Last Colonoscopy: 2019 Sheri Roth LPN documented in this encounterMount Carmel Health System02-08-2023 Miscellaneous Notes* Telephone Encounter - Brinda Melo - 03/22/2022 10:37 AM EST Called PT LVM to call back and schedule consult to General Surgery * Telephone Encounter - Jeff Simeon DO - 03/21/2022 5:39 PM EST Referral placed, please help her schedule appt Jeff Simeon DO * Telephone Encounter - Nell Perez - 03/21/2022 5:32 PM EST Pt informed, verbalized understanding. Pt reports she still has the RUQ abd pain especially with activity or certain movements. Please place consult to general surg. Pt would like called to schedule appt. Nell Perez * Telephone Encounter - Jeff Simeon DO - 03/21/2022 5:27 PM EST Please inform patient that her RUQ US shows signs of fatty liver disease as well as 2 cm mobile gallstone in the gallbladder. If she is still having RUQ Abdominal pain, I need her to see the surgeon to review further Jeff Siemon DO * Telephone Encounter - Hank Ruvalcaba RN - 03/16/2022 1:16 PM EST Patient asking pcp to review and advise on US results. documented in this encounterMount Carmel Health System02-06-2023 History of Present illness Narrative* Lani Edmond LPN - 03/20/2022 9:14 AM EST Patient presents for B-12 injection. Denies any problems at this time. Patient instructed on any SEof medication, verbalized understanding and agreed to proceed with treatment. Tolerated injection well. Lani Edmond LPN documented in this encounterMount Carmel Health System01-10-2023 History of Present illness Narrative* Jeff Simeon, - 02/21/2022 7:54 AM EST Patient presents with: F/U 3 Month HPI: Nguyen Queen is a 76 year old female [...] time. She does not check BP's generally. Nguyen gets minimal exercise. PAST MEDICAL HISTORY Diagnosis [...] WHEN PFRMD 08/25/2003 adenomatous polyp and diverticulosis. [facility] COLONOSCOPY FLX DX W/COLLJ SPEC WHEN PFRMD 09/28/2006 No polyps found. 5 yr recall. Guevara. [facility] COLONOSCOPY FLX DX W/COLLJ SPEC WHEN PFRMD 02/26/2018 Colonoscopy ESOPHAGOGASTRODUODENOSCOPY TRANSORAL DIAGNOSTIC 08/31/2003 Unremarkable, negative biopsies. [facility] ESOPHAGOGASTRODUODENOSCOPY TRANSORAL DIAGNOSTIC 02/26/2018 EGD TONSILLECTOMY HX Social History Tobacco Use Smoking status: Never Smokeless tobacco: Never Substance Use Topics Alcohol use: No Drug use: No FAMILY HISTORY Adopted: Yes Allergies: ALLERGIES Allergen Reactions Benadryl [Diphenhyd* Swelling Penicillins Shortness of Breath Nemwacc-Zwy-Yfq Red* Contraindication-Medical Surgical History of liver failure [...] mg by mouth once daily.^Disp: ^Rfl: fexofenadine (VALENTINA) 180 mg tablet^Take 180 mg by mouth [...] with supplements or by diet (goal of 8969-5539 mg/day - Set up for bone mineral [...] weight loss. - LIPID PANEL BASIC Jeff Simeon DO To ER if develops chest pain, shortness of breath, or severe worsening of symptoms. Discussed risks, benefits, alternatives, and potential side effects of medications. Patient expressed understanding and agreed with the plan. Jeff Simeon DO [address] [place] [address] documented in this encounterMount Carmel Health System12-06-2022 History of Present illness Narrative* Lani Edmond LPN - 01/17/2022 9:10 AM EST Patient presents for B-12 injection. Denies any problems at this time. Patient instructed on any SEof medication, verbalized understanding and agreed to proceed with treatment. Tolerated injection well. Lani Edmond LPN documented in this encounterMount Carmel Health System11-08-2022 History of Present illness Narrative* Jael Connolly LPN - 12/20/2021 8:58 AM EST Patient here for B12 injection. Given IM in right arm. Patient tolerated injection well. documented in this encounterMount Carmel Health System10-04-2022 History of Present illness Narrative* Jeff Simeon DO - 11/15/2021 10:14 AM EDT Patient presents with: F/U 3 Month HPI: Nguyen Queen is a 76 year old female [...] time. She does not check BP's generally. Nguyen gets sporadic irregular exercise. PAST MEDICAL HISTORY [...] WHEN PFRMD 08/25/2003 adenomatous polyp and diverticulosis. [facility] COLONOSCOPY FLX DX W/COLLJ SPEC WHEN PFRMD 09/28/2006 No polyps found. 5 yr recall. Guevara. [facility] COLONOSCOPY FLX DX W/COLLJ SPEC WHEN PFRMD 02/26/2018 Colonoscopy ESOPHAGOGASTRODUODENOSCOPY TRANSORAL DIAGNOSTIC 08/31/2003 Unremarkable, negative biopsies. [facility] ESOPHAGOGASTRODUODENOSCOPY TRANSORAL DIAGNOSTIC 02/26/2018 EGD TONSILLECTOMY HX Social History Tobacco Use Smoking status: Never Smokeless tobacco: Never Substance Use Topics Alcohol use: No Drug use: No FAMILY HISTORY Adopted: Yes Allergies: ALLERGIES Allergen Reactions Benadryl [Diphenhyd* Swelling Penicillins Shortness of Breath Legcaxj-Kvv-Qdd Red* Contraindication-Medical Surgical History of liver failure [...] mg by mouth once daily.^Disp: ^Rfl: fexofenadine (VALENTINA) 180 mg tablet^Take 180 mg by mouth [...] diet, not able to tolerate supplement Jeff Simeon, DO To ER if develops chest pain, shortness of breath, or severe worsening of symptoms. Discussed risks, benefits, alternatives, and potential side effects of medications. Patient expressed understanding and agreed with the plan. Jeff Simeon DO [address] [place] [address] documented in this encounterMount Carmel Health System09-08-2022 History of Present illness Narrative* Jael Connolly LPN - 10/20/2021 9:17 AM EDT Patient presents for B-12 injection. Denies any problems at this time. Patient instructed on any SEof medication, verbalized understanding and agreed to proceed with treatment. Tolerated injection well. Jael Connolly LPN documented in this encounterMount Carmel Health System06-06-2022 History of Present illness Narrative* Lani Edmond LPN - 07/18/2021 9:34 AM EDT Patient presents for B-12 injection. Denies any problems at this time. Patient instructed on any SEof medication, verbalized understanding and agreed to proceed with treatment. Tolerated injection well. Lani Edmond LPN documented in this encounterMount Carmel Health System2022 History of Present illness Narrative* Lani Edmond LPN - 07/04/2021 9:36 AM EDT Patient presents for B-12 injection. Denies any problems at this time. Patient instructed on any SEof medication, verbalized understanding and agreed to proceed with treatment. Tolerated injection well. Lani Edmond LPN documented in this encounterMount Carmel Health System05-09-2022 History of Present illness Narrative* Lani Edmond LPN - 06/20/2021 2:39 PM EDT Patient presents for B-12 injection. Denies any problems at this time. Patient instructed on any SEof medication, verbalized understanding and agreed to proceed with treatment. Tolerated injection well. Lani Edmond LPN documented in this encounterMount Carmel Health System04-25-2022 History of Present illness Narrative* Lani Edmond LPN - 06/06/2021 2:50 PM EDT Patient presents for B-12 injection. Denies any problems at this time. Patient instructed on any SEof medication, verbalized understanding and agreed to proceed with treatment. Tolerated injection well. Lani Edmond LPN documented in this encounterMount Carmel Health System04-19-2022 History of Present illness Narrative* Jeff Simeon, - 05/31/2021 7:23 AM EDT Patient presents with: Follow Up: 3 months HPI: Nguyen Queen is a 76 year old female who presents to the office today for review of health conditions. Concerns today: had an episode of food allergy reaction in Nov, symptoms are improved. [facility] and given rxfor prednisone and zofran. [...] with sugars in the <200 range. Patient's [id number] was Hemoglobin A1C (%) Date Value 2021 [...] time. She does not check BP's generally. Nguyen gets minimal exercise. PAST MEDICAL HISTORY Diagnosis Date Diabetes mellitus, type 2 (HCC) Environmental allergies Hyperlipidemia Hypothyroidism, unspecified Liver failure (HCC) 2004 unsure of cause Migraine headache onset age 7 PAST SURGICAL HISTORY Procedure Laterality Date BREAST BIOPSY NEEDLE LEFT Dec 31 2014 x 2, Dr. Ronquillo COLONOSCOPY FLX DX W/COLLJ SPEC WHEN PFRMD 08/25/2003 adenomatous polyp and diverticulosis. [facility] COLONOSCOPY FLX DX W/COLLJ SPEC WHEN PFRMD 09/28/2006 No polyps found. 5 yr recall. Guevara. [facility] COLONOSCOPY FLX DX W/COLLJ SPEC WHEN PFRMD 02/26/2018 Colonoscopy ESOPHAGOGASTRODUODENOSCOPY TRANSORAL DIAGNOSTIC 08/31/2003 Unremarkable, negative biopsies. [facility] ESOPHAGOGASTRODUODENOSCOPY TRANSORAL DIAGNOSTIC 02/26/2018 EGD TONSILLECTOMY HX Social History Tobacco Use Smoking status: Never Smoker Smokeless tobacco: Never Used Substance Use Topics Alcohol use: No Drug use: No FAMILY HISTORY Adopted: Yes Allergies: ALLERGIES Allergen Reactions Benadryl [Diphenhyd* Swelling Penicillins Shortness of Breath Utermva-Gcz-Gsr Red* Contraindication-Medical Surgical History of liver failure [...] 15 mL as instructed twice daily. fexofenadine ([place]) 180 mg tablet Take 180 mg by [...] regular aerobic exercise and weight loss. Jeff Simeon DO To ER if develops chest pain, shortness of breath, or severe worsening of symptoms. Discussed risks, benefits, alternatives, and potential side effects of medications. Patient expressed understanding and agreed with the plan. Jeff Simeon DO [address] [place] [address] documented in this encounterMount [facility]-2022 Miscellaneous Notes* Telephone Encounter - Nell Bhakta Ma - 05/25/2021 5:34 PM EDT Patient notified and verbalized understanding. Pt asking for Caroline results. Faxed request to [facility] & will place results on PCP desk when received. Nell Bhakta Ma * Telephone Encounter - Karson Woodward APRN.CNP - 05/25/2021 5:26 PM EDT Please let Nguyen know that we've received her lab results. [...] detail at her upcoming appointment with Dr. Simeon. Karson Woodward APRN.CNP documented in this encounterMount Carmel [facility] System04-06-2022 Miscellaneous Notes* Telephone Encounter - Pebbles Molina LPN - 05/18/2021 2:34 PM EDT Order faxed to [facility]. Pebbles Molina LPN * Telephone Encounter - Jahaira Harrison APRN.CNP - 05/18/2021 12:42 PM EDT Order signed. Please fax. Jahaira Harrison APRN.CNP * Telephone Encounter - Pebbles Molina LPN - 05/18/2021 12:35 PM EDT Please file orders. Needs faxed to [facility]. Pebbles Molina LPN documented in this encounterMount Carmel [facility] System07-14-2021 History of Present illness Narrative* Kurtis Montes RT(R) - 08/25/2020 3:40 PM EDT Radiology Service Progress Note PATIENT NAME: Nguyen Queen DATE OF SERVICE: August 25, 2020 TIME: 3:55 PM PATIENT IDENTITY VERIFICATION COMPLETED USING TWO (2) IDENTIFIERS: Name and Date of confirmedby patient verbally. FALL SCREENING: Has the patient had 2 falls in the last year or 1 fall with injury or currently using an Ambulatory Assistive Device (Walker, Cane, Wheelchair, Crutches, etc.)? No PATIENT GENDER DATA: Female. status: : No status: NO. PATIENT RELEVANT IMPLANT DATA REVIEWED: Not Applicable RADIOLOGY DEPARTMENT: General X-ray: Exam(s) Completed: Spine X-Ray(s): Lumbar AP / LAT / L5-S1 Pelvis X-Ray: Pelvis with Hip Bilateral Lower Extremity X-Ray(s): Ankle, Right and Wt. Bearing PERIPHERAL IV DATA: Not applicable SIGNED BY: RT Andrea(R) August 25, 2020 3:55 PM documented in this encounterMount Carmel Health System01-15-2019 History of Past illness Narrative* Problem Noted Date Resolved Date Obesity, Class III, BMI >= 40 02/26/2018 Diabetes mellitus type 2, controlled, without co mplications 05/17/2015 08/23/2020 documented as of this encounter (statuses as of 05/18/2021) [facility] of [facility] illness Narrative* Problem Noted Date Resolved Date Obesity, Class III, BMI >= 40 02/26/2018 Diabetes mellitus type 2, controlled, without co mplications 05/17/2015 08/23/2020 documented as of this encounter (statuses as of 05/31/2021) [facility] of Past illness Narrative* Problem Noted Date Resolved Date Obesity, Class III, BMI >= 40 02/26/2018 Diabetes mellitus type 2, controlled, without co mplications 05/17/2015 08/23/2020 documented as of this encounter (statuses as of 06/06/2021) [facility] of [facility] illness Narrative* Problem Noted Date Resolved Date Obesity, Class III, BMI >= 40 02/26/2018 Diabetes mellitus type 2, controlled, without co mplications 05/17/2015 08/23/2020 documented as of this encounter (statuses as of 06/15/2021) [facility] of [facility] illness Narrative* Problem Noted Date Resolved Date Obesity, Class III, BMI >= 40 02/26/2018 Diabetes mellitus type 2, controlled, without co mplications 05/17/2015 08/23/2020 documented as of this encounter (statuses as of 06/20/2021) [facility] of [facility] Narrative* Problem Noted Date Resolved Date Obesity, Class III, BMI >= 40 02/26/2018 Diabetes mellitus type 2, controlled, without co mplications 05/17/2015 08/23/2020 documented as of this encounter (statuses as of 07/04/2021) [facility] Narrative* Problem Noted Date Resolved Date Obesity, Class III, BMI >= 40 02/26/2018 Diabetes mellitus type 2, controlled, without co mplications 05/17/2015 08/23/2020 documented as of this encounter (statuses as of 07/18/2021) [facility] Narrative* Problem Noted Date Resolved Date Obesity, Class III, BMI >= 40 02/26/2018 Peripheral neuropathy 01/21/2018 08/22/2021 Diabetes mellitus type 2, controlled, without co mplications 05/17/2015 08/23/2020 documented as of this encounter (statuses as of 10/20/2021) [facility] of [facility] Narrative* Problem Noted Date Resolved Date Obesity, Class III, BMI >= 40 02/26/2018 Peripheral neuropathy 01/21/2018 08/22/2021 Diabetes mellitus type 2, controlled, without co mplications 05/17/2015 08/23/2020 documented as of this encounter (statuses as of 11/15/2021) [facility] Narrative* Problem Noted Date Resolved Date Obesity, Class III, BMI >= 40 02/26/2018 Peripheral neuropathy 01/21/2018 08/22/2021 Diabetes mellitus type 2, controlled, without co mplications 05/17/2015 08/23/2020 documented as of this encounter (statuses as of 12/20/2021) [facility] Narrative* Problem Noted Date Resolved Date Obesity, Class III, BMI >= 40 02/26/2018 Peripheral neuropathy 01/21/2018 08/22/2021 Diabetes mellitus type 2, controlled, without co mplications 05/17/2015 08/23/2020 documented as of this encounter (statuses as of 01/17/2022) [facility] Narrative* Problem Noted Date Resolved Date Obesity, Class III, BMI >= 40 02/26/2018 Peripheral neuropathy 01/21/2018 08/22/2021 Diabetes mellitus type 2, controlled, without co mplications 05/17/2015 08/23/2020 documented as of this encounter (statuses as of 02/21/2022) [facility] Narrative* Problem Noted Date Resolved Date Obesity, Class III, BMI >= 40 02/26/2018 Peripheral neuropathy 01/21/2018 08/22/2021 Diabetes mellitus type 2, controlled, without co mplications 05/17/2015 08/23/2020 documented as of this encounter (statuses as of 03/20/2022) [facility] Narrative* Problem Noted Date Resolved Date Obesity, Class III, BMI >= 40 02/26/2018 Peripheral neuropathy 01/21/2018 08/22/2021 Diabetes mellitus type 2, controlled, without co mplications 05/17/2015 08/23/2020 documented as of this encounter (statuses as of 03/22/2022) [facility] Narrative* Problem Noted Date Resolved Date Obesity, Class III, BMI >= 40 02/26/2018 Peripheral neuropathy 01/21/2018 08/22/2021 Diabetes mellitus type 2, controlled, without co mplications 05/17/2015 08/23/2020 documented as of this encounter (statuses as of 03/25/2022) [facility] Narrative* Problem Noted Date Resolved Date Obesity, Class III, BMI >= 40 02/26/2018 Peripheral neuropathy 01/21/2018 08/22/2021 Diabetes mellitus type 2, controlled, without co mplications 05/17/2015 08/23/2020 documented as of this encounter (statuses as of 04/03/2022) [facility] Narrative* Problem Noted Date Resolved Date Obesity, Class III, BMI >= 40 02/26/2018 Peripheral neuropathy 01/21/2018 08/22/2021 Diabetes mellitus type 2, controlled, without co mplications 05/17/2015 08/23/2020 documented as of this encounter (statuses as of 04/18/2022) [facility] Narrative* Problem Noted Date Resolved Date Obesity, Class III, BMI >= 40 02/26/2018 Peripheral neuropathy 01/21/2018 08/22/2021 Diabetes mellitus type 2, controlled, without co mplications 05/17/2015 08/23/2020 documented as of this encounter (statuses as of 04/21/2022) [facility] Narrative* Problem Noted Date Resolved Date Obesity, Class III, BMI >= 40 02/26/2018 Peripheral neuropathy 01/21/2018 08/22/2021 Diabetes mellitus type 2, controlled, without co mplications 05/17/2015 08/23/2020 documented as of this encounter (statuses as of 05/15/2022) [facility] Narrative* Problem Noted Date Resolved Date Obesity, Class III, BMI >= 40 02/26/2018 Peripheral neuropathy 01/21/2018 08/22/2021 Diabetes mellitus type 2, controlled, without co mplications 05/17/2015 08/23/2020 documented as of this encounter (statuses as of 05/26/2022) [facility] Narrative* Problem Noted Date Resolved Date Obesity, Class III, BMI >= 40 02/26/2018 Peripheral neuropathy 01/21/2018 08/22/2021 Diabetes mellitus type 2, controlled, without co mplications 05/17/2015 08/23/2020 documented as of this encounter (statuses as of 06/12/2022) [facility] Narrative* Problem Noted Date Resolved Date Obesity, Class III, BMI >= 40 02/26/2018 Peripheral neuropathy 01/21/2018 08/22/2021 Diabetes mellitus type 2, controlled, without co mplications 05/17/2015 08/23/2020 documented as of this encounter (statuses as of 07/11/2022) [facility] Narrative* Problem Noted Date Resolved Date Obesity, Class III, BMI >= 40 02/26/2018 Peripheral neuropathy 01/21/2018 08/22/2021 Diabetes mellitus type 2, controlled, without co mplications 05/17/2015 08/23/2020 documented as of this encounter (statuses as of 08/07/2022) [facility] Narrative* Problem Noted [...] of this encounter (statuses as of 09/19/2022) [facility] Narrative* Problem Noted [...] of this encounter (statuses as of 10/02/2022) [facility] Narrative* Problem Noted [...] of this encounter (statuses as of 10/05/2022) [facility] Narrative* Problem Noted [...] of this encounter (statuses as of 10/17/2022) [facility] Narrative* Problem Noted [...] of this encounter (statuses as of 11/03/2022) [facility] Narrative* Problem Noted [...] of this encounter (statuses as of 11/17/2022) [facility] N[facility]* Problem Noted [...] of this encounter (statuses as of 11/30/2022) [facility] N[facility]* Problem Noted [...] of this encounter (statuses as of 12/13/2022) [facility] Narrative* Problem Noted [...] of this encounter (statuses as of 12/28/2022) [facility] Narrative* Problem Noted [...] of this encounter (statuses as of 01/25/2023) [facility] SystemDis[facility] Author Richard Mckenzie [facility] March 11, 2023 12:33pm Note Date/Time March 11, 2023 1 2:29pm [facility] Medical Records Department [address] [place] [address] Discharge Summary 03/11/23 1226 MR#: [id number] Acct: [id number] Name: NGUYEN QUEEN Rep #:[id number] : 1945 77 From: Richard landa MD PCP: Dr. Jeff Simeon DO Status:AD M IN Location: [facility] [id number] Providers Date of Admission: 03/05/23 Primary Care Physician: Dr. Jeff Simeon DO Consultations 03/06/23 07:57 Consult: Hospitalist Routine Consulting Provider: Radha Ronquillo Reason for Consult: Medical management EMERGENT Consult: No MD Notified: Yes Date Notified: 03/06/23 Time Notified: 07:57 Method of Notification: Verbal Comments:: Dr. Snell Reason For Visit: RETROCECAL ABSCESS Diagnosis Discharge Diagnosis (1) Retrocecal abscess: Status: Acute Code(s): K65.1 - Peritoneal abscess Plan: Patient is doing well and tolerating regular diet. She had a bowel movement today. Her drain is still serosanguineous. I will remove her drain and send her home on Cipro which is sensitive on her cultures. She will follow-up with Dr. Ballard either late this week or early next week. I have ordered a repeat H&Hfor the day she comes in for her follow-up. Richard Mckenzie MD Pager: [facility] [address] [place] [address], [address] [place] [address] Office: Medications at Discharge Home Medications ondansetron 4 mg disintegrating tablet 4 mg PO Q8H PRN PRN Nausea #20 tabs 12/21/20 aspirin 81 mg capsule 81 mg PO DAILY HEART 03/05/23 famotidine 1 tab PO DAILY INDIGESTION 03/05/23 fexofenadine 1 tab PO DAILY ALLERGIES 03/05/23 glimepiride 2 mg tablet 2 mg PO DAILY 03/05/23 levothyroxine 150 mcg tablet 150 mcg PO QHS 03/05/23 losartan 50 mg tablet 50 mg PO DAILY 03/05/23 metformin 500 mg tablet 1,000 mg PO BID 03/05/23 ciprofloxacin HCl 500 mg tablet (Cipro) 500 mg PO BID #14 tabs 03/11/23 oxycodone 5 mg tablet 5 mg PO Q6H PRN PRN Pain Score 6-10 5 days #10 tabs 03/11/23 Hospital Course Operations colectomy Summary of Care Provided Hospital Course: Patient was admitted with right-sided [...] week for staple removal and recheck hemoglobin. Weight / BMI Weight Weight: 174 lb 14.389 oz Body Mass Index (BMI) 30.9 ABG / Lab / Microbiology Data 03/11/23 05:30 03/11/23 05:15 Laboratory: Laboratory Results - last 24 hr 03/10/23 07:46: Sodium 137, Potassium 4.2, Chloride 111 H, Carbon Dioxide 24.0, Anion Gap 2 L, BUN 21 H, Creatinine 0.48 L, Estim Creat Clear Calc 60.60, Est GFR (MDRD) Af Amer 161, Est GFR (MDRD) Non-Af 133, BUN/Creatinine Ratio 43.6 H, Glucose 123 H, Calcium 8.5, Phosphorus 3.3, Magnesium 2.0 03/10/23 11:59: POC Glucose 164 H 03/10/23 17:28: POC Glucose 99 03/10/23 20:47: POC Glucose 159 H 03/11/23 05:15: Sodium 141, Potassium 4.1, Chloride 114 H, Carbon Dioxide 24.0, Anion Gap 3 L, BUN 21 H, Creatinine 0.45 L, Estim Creat Clear Calc 60.60, Est GFR (MDRD) Af Amer 173, Est GFR (MDRD) Non-Af 143, BUN/Creatinine Ratio 46.3 H, Glucose 119 H, Calcium 8.5 03/11/23 05:23: POC Glucose 110 H 03/11/23 05:30: WBC 10.4, RBC 3.58 L, Hgb 7.9 L, Hct 27.0 L, MCV 75.4 L, MCH 22.1 L, MCHC 29.3 L, RDW Std Deviation 38.1, RDW Coeff of Anand 14.0, Plt Count 527 H, MPV 9.5, Immature Gran % (Auto) 3.700 H, Neut % (Auto) 65.5, Lymph % (Auto) 14.9 L, [place] % (Auto) 7.2, Eos % (Auto) 8.1 H, Baso % (Auto) 0.6, Absolute Neuts (auto) 6.8, Absolute Lymphs (auto) 1.55, Nucleated RBC % 0.2 03/11/23 10:19: POC Glucose 171 H Microbiology: Microbiology 03/06/23 19:37 Aspirate - Abdominal Gram Stain - Final 03/06/23 19:37 Aspirate - Abdominal Wound Culture - Final Escherichia coli Escherichia coli#2 03/06/23 19:37 Aspirate - Abdominal Anaerobic Culture - Final Clostridium perfringens Bacteroides thetaiotaomicron D/C Instructions Discharge Diet: Light diet - advance as tolerated Discharge Activity: May Shower Lifting Restrictions: 15 lbs for 6 weeks Call your doctor if your incision/area has: Continuous Slow Oozing, Sudden Increased Bleeding, Increased Pain/ Swelling, Increased Redness, Foul Smelling Discharge and Swelling at the incision site Call your doctor if you observe: Fever of 101 or Higher Change Dressing in: 1 day Cleanse incision/area with: Soap & Water Additional Dressing/Incision Instructions: Change dressings daily and as needed. Pending Tests Upon Discharge: Blood work the morning of follow up visit before coming to the office Please Follow Up With: Santosh Ballard MD When: Please call to schedule 1 week follow up appointment. [phone] Meaningful Use Info Meaningful Use Diagnoses (Choose all that apply): None applicable Discharge Plan Admission Admit Date/Time: 03/05/23 22:41 Attending Provider: Santosh Ballard Primary Care Provider: Jeff Simeon Consulting Providers: Nohelia Lazar; King Carroll; Rafia Rousseau; Rafia Marroquin; Emma Dubois; Marisel Castellon; Sheri Rooney; Venu Erazo; Venu Cuevas; Felipe Walters; Stas Shelley; Marily Guajardo; Maco Richardson; Joey Myers; Petros Espinoza; Barbara Man; Leno Sun; Zuri Peterson; Francois Putnam; Canelo Fletcher; Mary Cotter; Casey Gupta; Ruth Ann Lynn NP; Ramses Victoria; Jameson Snell Discharge Orders/Prescriptions Prescriptions: New ciprofloxacin HCl [Cipro] 500 mg tablet 500 mg PO BID Qty: 14 0RF oxycodone 5 mg Tablet 5 mg PO Q6H PRN PRN (Reason: Pain Score 6-10) 5 Days Qty: 10 0RF Continued ondansetron 4 mg tablet,disintegrating 4 mg PO Q8H PRN PRN (Reason: Nausea) Qty: 20 0RF glimepiride 2 mg tablet 2 mg PO DAILY Patient Comments: TAKE 1 TABLET BY MOUTH EVERY DAY WITH BREAKFAST levothyroxine 150 mcg tablet 150 mcg PO QHS Patient Comments: TAKE 1 TABLET BY MOUTH ONCE DAILY. TAKE ON EMPTY STOMACH. FOR THYROID. PT STATES TAKES IT AT NIGHT BECAUSE OF AN INTERACTION WITH ANOTHER MEDICATION losartan 50 mg tablet 50 mg PO DAILY Patient Comments: TAKE 1 TABLET BY MOUTH EVERY DAY metformin 500 mg tablet 1,000 mg PO BID Patient Comments: TAKE 2 TABLETS BY MOUTH TWO TIMES A DAY WITH MEALS. famotidine [Pepcid] 1 tab PO DAILY fexofenadine [[place] Allergy] 1 tab PO DAILY aspirin 81 mg capsule 81 mg PO DAILY Other Ambulatory Orders: CBC W/Diff, Automated (Routine) Timeframe: 1 Week Facility: [facility] - Location: Laboratory Ordered By: Dr. Richard Mckenzie Referrals / Follow Up: Jeff Simeon DO [Primary Care Provider] - Disposition Disposition (needs filled in before D/C Order can be placed): Home, Self Care 03/11/23 8753 <Electronically signed by Richard Mckenzie MD> Cosigner Signature (if applicable): CC: Dr. Richard Mckenzie MD; Dr. Jeff Simeon DO~ Signed [facility] Work Phone: Evaluation note* Diagnosis Encounter for screening mammogram for malignant neoplasm of breast- Primary Other screening mammogram documented [facility] this encounter [facility] [place] noteNo assessment information availableWUK Healthcare Work Phone: Evaluation note* Diagnosis Controlled type 2 diabetes mellitus [...] Other B-complex deficiencies [facility] Diagnosis Vitamin B12 deficiency- Primary Other B-complex deficiencies [facility] Diagnosis Vitamin B12 deficiency- Primary Other B-complex deficiencies [facility] Diagnosis Vitamin B12 deficiency- Primary Other B-complex deficiencies [facility] Diagnosis Uncontrolled type 2 diabetes mellitus with hyperglycemia (HCC)- Primary Vitamin B12 deficiency Other B-complex deficiencies Controlled type 2 diabetes mellitus without complication, without long-term current use of insulin (HCC) Hypothyroidism, acquired Unspecified hypothyroidism Other vitamin B12 deficiency anemia Iron deficiency Iron deficiency anemia, unspecified Vitamin D deficiency Unspecified vitamin D deficiency [facility] Diagnosis Vitamin B12 deficiency- Primary Other B-complex deficiencies [facility] Diagnosis Controlled type 2 diabetes mellitus without complication, without long-term current use of insulin ([facility])- Primary Encounter for screening mammogram for malignant neoplasm of breast Other screening mammogram Hypothyroidism, acquired Unspecified hypothyroidism Vitamin B12 deficiency Other B-complex deficiencies Other vitamin B12 deficiency anemia Vitamin D deficiency Unspecified vitamin D deficiency Iron deficiency Iron deficiency anemia, unspecified Malabsorption syndrome Unspecified intestinal malabsorption Hypertriglyceridemia Pure hyperglyceridemia [facility] Diagnosis Vitamin B12 deficiency- Primary Other B-complex deficiencies [facility] Diagnosis RUQ abdominal pain- Primary Abdominal pain, right upper quadrant Calculus of gallbladder without cholecystitis without obstruction Calculus of gallbladder without mention of cholecystitis or obstruction Fatty liver Other chronic nonalcoholic liver disease [facility] Diagnosis RUQ abdominal pain Abdominal [...] [facility]* Diagnosis Essential hypertension with goal [...] Other postprocedural status [facility] Diagnosis Aftercare following surgery- Primary Encounter for other specified aftercare [facility] Diagnosis Vitamin B12 deficiency- Primary Other B-complex deficiencies [facility] Diagnosis Controlled type 2 diabetes [...] deficiency anemia, unspecified [facility] Diagnosis Other vitamin B12 deficiency anemia- Primary [facility] Diagnosis Other vitamin B12 deficiency anemia- Primary [facility] Diagnosis Vitamin B12 deficiency- Primary Other B-complex deficiencies [facility] Diagnosis Vitamin B12 deficiency- Primary Other B-complex deficiencies [facility] Diagnosis Vitamin B12 deficiency- Primary Other B-complex deficiencies [facility] Diagnosis Controlled type 2 diabetes [...] nonalcoholic liver disease documented in this encounter [facility] [place] [facility]* Diagnosis Vitamin B12 deficiency- Primary Other B-complex deficiencies [facility]* Diagnosis Onset Date Resolution Status Retrocecal abscess acute Right lower quadrant abdominal pain acute [facility] Work Phone: Evaluation note* Diagnosis 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 S/P colectomy Other postprocedural status Nausea Nausea alone [facility] Diagnosis Onset Date Resolution Status Retrocecal abscess resolved Right lower quadrant abdominal pain resolved Colon cancer, ascending acut e Status post right hemicolectomy acute Colon cancer, ascending acut e Ulcerative colitis acute Colon cancer, ascending acut e Colon cancer, ascending acut e Ulcerative colitis acute Colon cancer, ascending acut e Status post right hemicolectomy acute Ulcerative colitis acute [facility] Work Phone: Evaluation note* Diagnosis Vitamin B12 deficiency- Primary Other B-complex deficiencies documented in this encounter [facility] [place] [facility]* Diagnosis Vitamin B12 deficiency- Primary Other B-complex deficiencies documented in this encounter [facility] [place] [facility]* Diagnosis Vitamin B12 deficiency- Primary Other B-complex deficiencies Controlled type 2 diabetes mellitus without complication, without long-term current use of insulin (HCC) Hypothyroidism, acquired Unspecified hypothyroidism Iron deficiency Iron deficiency anemia, unspecified Vitamin D deficiency Unspecified vitamin D deficiency Other vitamin B12 deficiency anemia [facility] [place] [facility]* Diagnosis Essential hypertension with goal blood pressure less than 130/80- Primary 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) Hypertriglyceridemia Pure hyperglyceridemia Vitamin B12 deficiency Other B-complex deficiencies Malabsorption syndrome Unspecified intestinal malabsorption Fatty liver Other chronic nonalcoholic liver disease Hypothyroidism, acquired Unspecified hypothyroidism Colon neoplasm Neoplasm of unspecified nature of digestive system S/P colectomy Other postprocedural status documented [facility] [place] [facility]* Diagnosis Bilateral impacted cerumen- Primary Impacted cerumen [facility] [place] [facility]* Diagnosis Vitamin B12 deficiency- Primary Other B-complex deficiencies [facility] [place] [facility]* Diagnosis Vitamin B12 deficiency- Primary Other B-complex deficiencies [facility] Diagnosis Vitamin B12 deficiency- Primary Other B-complex deficiencies [facility] [place] [facility]* Diagnosis Vitamin B12 deficiency- Primary Other B-complex deficiencies [facility] [place] [facility]* Diagnosis Essential hypertension with goal blood pressure less than 130/80 Hypertriglyceridemia Pure hyperglyceridemia Hypothyroidism, acquired Unspecified hypothyroidism Controlled type 2 diabetes mellitus without complication, without long-term current use of insulin (HCC) Other iron deficiency anemia Vitamin B12 deficiency- Primary Other B-complex deficiencies [facility] [place] [facility]* Diagnosis Essential hypertension with goal blood pressure less than 130/80 Hypertriglyceridemia Pure hyperglyceridemia Hypothyroidism, acquired Unspecified hypothyroidism Controlled type 2 diabetes mellitus without complication, without long-term current use of insulin (HCC) Other iron deficiency anemia Vitamin B12 deficiency- Primary Other B-complex deficiencies [facility] [place] [facility]* Diagnosis Essential hypertension with goal blood pressure less than 130/80 Hypertriglyceridemia Pure hyperglyceridemia Hypothyroidism, acquired Unspecified hypothyroidism Controlled type 2 diabetes mellitus without complication, without long-term current use of insulin (HCC) Other iron deficiency anemia Bilateral lower extremity edema- Primary Edema S/P colectomy Other postprocedural status Colon neoplasm Neoplasm of unspecified nature of digestive system Colitis Other and unspecified noninfectious gastroenteritis and colitis Hypothyroidism, acquired Unspecified hypothyroidism 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) Vitamin B12 deficiency Other B-complex deficiencies Vitamin D deficiency Unspecified vitamin D deficiency Iron deficiency Iron deficiency anemia, unspecified [facility] [place] [facility]* Diagnosis Essential hypertension with goal blood pressure less than 130/80 Hypertriglyceridemia Pure hyperglyceridemia Hypothyroidism, acquired Unspecified hypothyroidism Controlled type 2 diabetes mellitus without complication, without long-term current use of insulin (HCC) Other iron deficiency anemia Vitamin B12 deficiency- Primary Other B-complex deficiencies [facility] [place] [facility]* Diagnosis Essential hypertension with goal blood pressure less than 130/80 Hypertriglyceridemia Pure hyperglyceridemia Hypothyroidism, acquired Unspecified hypothyroidism Controlled type 2 diabetes mellitus without complication, without long-term current use of insulin (HCC) Other iron deficiency anemia Bilateral lower extremity edema Edema documented [facility] [place] [facility]* Diagnosis Essential hypertension with goal blood pressure less than 130/80 Hypertriglyceridemia Pure hyperglyceridemia Hypothyroidism, acquired Unspecified hypothyroidism Controlled type 2 diabetes mellitus without complication, without long-term current use of insulin (HCC) Other iron deficiency anemia Hypokalemia- Primary Hypopotassemia [facility]* Diagnosis Chronic pain of right ankle Bilateral hip pain Pain in joint, pelvic region and thigh Chronic midline low back pain without sciatica Essential hypertension with goal blood pressure less than 130/80 Hypertriglyceridemia Pure hyperglyceridemia Hypothyroidism, acquired Unspecified hypothyroidism Controlled type 2 diabetes mellitus without complication, without long-term current use of insulin (HCC) Other iron deficiency anemia [facility] Diagnosis Essential hypertension with goal blood pressure less than 130/80 Hypertriglyceridemia Pure hyperglyceridemia Hypothyroidism, acquired Unspecified hypothyroidism Controlled type 2 diabetes mellitus without complication, without long-term current use of insulin (HCC) Other iron deficiency anemia Controlled type 2 diabetes mellitus without complication, without long-term current use of insulin (HCC)- Primary S/P colectomy Other postprocedural status Bilateral lower extremity edema Edema Vitamin B12 deficiency Other B-complex deficiencies Hypokalemia Hypopotassemia Colon neoplasm Neoplasm of unspecified nature of digestive system Hypothyroidism, acquired Unspecified hypothyroidism Weight loss Loss of weight Muscle weakness Muscle weakness (generalized) Gait abnormality Abnormality of gait [facility] Diagnosis Essential hypertension with goal blood pressure less than 130/80 Hypertriglyceridemia Pure hyperglyceridemia Hypothyroidism, acquired Unspecified hypothyroidism Controlled type 2 diabetes mellitus without complication, without long-term current use of insulin (HCC) Other iron deficiency anemia Hypertriglyceridemia- Primary Pure hyperglyceridemia Essential hypertension with goal blood pressure less than 130/80 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) Vitamin B12 deficiency Other B-complex deficiencies Iron deficiency Iron deficiency anemia, unspecified Fatty liver Other chronic nonalcoholic liver disease Hypothyroidism, acquired Unspecified hypothyroidism Vitamin D deficiency Unspecified vitamin D deficiency [facility] Diagnosis Essential hypertension with goal blood pressure less than 130/80 Hypertriglyceridemia Pure hyperglyceridemia Hypothyroidism, acquired Unspecified hypothyroidism Controlled type 2 diabetes mellitus without complication, without long-term current use of insulin (HCC) Other iron deficiency anemia Essential hypertension with goal blood pressure less than 130/80- Primary 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) Hypertriglyceridemia Pure hyperglyceridemia Hypothyroidism, acquired Unspecified hypothyroidism Other iron deficiency anemia S/P colectomy Other postprocedural status [facility]* Diagnosis Essential hypertension with goal blood pressure less than 130/80 Hypertriglyceridemia Pure hyperglyceridemia Hypothyroidism, acquired Unspecified hypothyroidism Controlled type 2 diabetes mellitus without complication, without long-term current use of insulin (HCC) Other iron deficiency anemia 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)- Primary Hypothyroidism, acquired Unspecified hypothyroidism Encounter for screening mammogram for malignant neoplasm of breast Other screening mammogram Left leg swelling Swelling of limb Vitamin D deficiency Unspecified vitamin D deficiency Vitamin B12 deficiency Other B-complex deficiencies Other iron deficiency anemia Right leg swelling Swelling of limb Essential hypertension with goal blood pressure less than 130/80 S/P colectomy Other postprocedural status Colon neoplasm Neoplasm of unspecified nature of digestive system Left leg swelling Swelling of limb Right leg swelling Swelling of limb documented in this encounter [facility] note* Diagnosis Essential hypertension with goal blood pressure less than 130/80 Hypertriglyceridemia Pure hyperglyceridemia Hypothyroidism, acquired Unspecified hypothyroidism Controlled type 2 diabetes mellitus without complication, without long-term current use of insulin (HCC) Other iron deficiency anemia Left leg swelling Swelling of limb Right leg swelling Swelling of limb [facility] [place] [facility]* Diagnosis Essential hypertension with goal blood pressure less than 130/80 Hypertriglyceridemia Pure hyperglyceridemia Hypothyroidism, acquired Unspecified hypothyroidism Controlled type 2 diabetes mellitus without complication, without long-term current use of insulin (HCC) Other iron deficiency anemia Pernicious anemia- Primary documented in this encounter [facility] note* Diagnosis Onset Date Resolution Status Admit Date Colon cancer, ascending chronic S eptember 2024 1:37pm Elevated CEA chronic October 232024 1:37pm Anemia resolved October 1:37pm [facility] Work Phone: History and physical note Author Santosh Ballard [facility] March 05, 2023 10:59pm Note Date/Time March 05, 2023 1 0:59pm [facility] Medical Records Department [address] [place] [address] History & Physical Exam 03/05/238 MR#: [id number] Acct: [id number] Name: NGUYEN QUEEN Rep #:[id number] : 1945 77 From: Santosh Martinez PCP: Dr. Jeff Simeon, DO Status:RE G ER Location: ED HPI - General General Date of Admission: 03/05/23 Date of Service: 03/05/23 Chief Complaint: Right lower quadrant abdominal pain HPI Narrative NGUYEN QUEEN, is a 77 F, with history of well-controlled diabetes mellitus, who presents to [facility] with complaints of right lower quadrant abdominal pain that has been present and a lower intensity for the last1 year and became acutely worse over the past 48 hours. She shares that this pain has been overall alternating between a dull and sharp character, however, today it became exclusively sharp in character. She notes that it has been associated with some increased fatigue. She shares that her appetite was negatively affected over the past 3 days with this discomfort but her appetite actually improved today prior to the pain intensified. She specifically denies any difficulty with fevers or chills. She has not noticed any impact to her urinary habits. She states more generally that this pain has been present ever since she underwent a lap carter with Dr. Holloway April 11, 2022. She reportsthat she has expressed these concerns multiple times to her primary care provider but was assured that she just needed to give it more time. Patient's ER workup is notable for CBC with leukocytosis of 14.[address] imaging of the abdomen pelvis was performed without contrast but shows a 4.4 cm retrocecal abscess concerning for possible neoplastic perforation versus perforated diverticulitis. Patient shares a chronic history of anemia and states that she takes 6 iron tablets daily for this issue which she has done since roughly the age of 14. Asa result she does have chronically dark-colored stools. Also as part of this diagnosis she confirms a history of close following with colonoscopies. She believes she has had 4 total colonoscopies in her adult life. She states the last colonoscopy was 3-1/2 to [address] Ronquillo. She denies any significant findings that she can recall or any special follow-up. Patient notes that she is adopted and therefore her family history is unclear, however, she reports that she recently discovered that she is 50% Ashkenazi Faith and she attributes many of her allergies (stating that she is allergic to even air [she] breathes to this background. [facility] Medical History (Updated 03/05/23 @ 21:[address] Stas Arredondo, DO) Diabetes mellitus Home Medications ondansetron 4 mg disintegrating tablet 4 mg PO Q8H PRN PRN Nausea #20 tabs 12/21/20 [Rx Last Taken Unknown] Allergy/AdvReac Type Severity Reaction Status Date / Time diphenhydramine Allergy PT UNSURE Verified 12/21/20 18:22 [From Benadryl] OF REACTION Penicillins Allergy PT UNSURE Verified 12/21/20 18:22 OF REACTION Surgical History (Updated 03/05/23 @ 19:[address] Stas Arredondo, DO) Hx of cholecystectomy Social History Smoking Status: Never smoker ROS Constitutional Constitutional: Reports fatigue; Denies change in weight or chills Gastrointestinal Gastrointestinal: Reports abdominal pain and constipation; Denies diarrhea, melena or nausea Vital Signs Vital Signs Vital Signs: 03/05/23 18:59 03/05/23 21:57 Temperature 95.7 F L Temperature Source Temporal Pulse Rate 96 103 H Respiratory Rate 16 16 Blood Pressure 155/65 H 144/74 H Blood Pressure Mean 95 97 Pulse Ox 99 98 Oxygen Delivery Method Room Air Room Air Weight Weight: 172 lb 14.4 oz Body Mass Index (BMI) 30.6 Physical Exam Const alert and well nourished Constitutional Narrative: Anxious and easily distracted with tangential speech General Appearance: cooperative Resp normal respiratory effort GI GI Narrative: Obese, well-healed surgical scars from prior laparoscopy (including infraumbilical scar), soft, mildly tender to palpation in right lower quadrant without guarding or peritoneal signs Results Lab / Micro Data 03/05/23 19:45 03/05/23 19:45 Labs: Laboratory Results - last 24 hr 03/05/23 19:30: Urine Color Yellow, Urine Clarity Sl. Cloudy, Urine pH 5.0, Ur Specific [place] 1.025, Urine Protein 30 H, Urine Glucose (UA) Normal, Urine Ketones 5 H, Urine Occult Blood 10 H, Urine Nitrite Negative, Urine Bilirubin 3 H, Urine Urobilinogen 1 H, Ur Leukocyte Esterase 100 H, Urine RBC 0 SEEN, Urine WBC 0-5 SEEN, Ur Squamous Epith Cells 0-5 SEEN, Urine Bacteria 1+, Urine Mucus 0SEEN 03/05/23 19:45: WBC 14.9 H, RBC 4.79, Hgb 10.7 L, Hct 35.7 L, MCV 74.5 L, MCH 22.3 L, MCHC 30.0 L, RDW Std Deviation 36.4, RDW Coeff of Anand 13.5, Plt Count 474 H, MPV 9.6, Immature Gran % (Auto) 0.700, Neut % (Auto) 83.7 H, Lymph % (Auto) 7.9 L, [place] % (Auto) 6.6, Eos % (Auto) 0.8, Baso % (Auto) 0.3, Absolute Neuts (auto) 12.5 H, Absolute Lymphs (auto) 1.18, Nucleated RBC % 0, Sodium 137,Potassium 3.9, Chloride 102, Carbon Dioxide 27.0, Anion Gap 8, BUN 16, Creatinine 0.82, Estim Creat Clear Calc 58.78, Est GFR (MDRD) Af Amer 87, Est GFR (MDRD) Non-Af 72, BUN/Creatinine Ratio 19.5, Glucose 252 H, Hemoglobin A1c 6.6 H, Calcium 9.2, Total Bilirubin 0.30, AST 6 L, ALT 11 L, Alkaline Phosphatase 107, Total Protein 7.3, Albumin 2.8 L, Globulin 4.5 H, Albumin/Globulin Ratio 0.6 L, Lipase 13 Imagaing Radiology Impression Abdomen/Pelvis CT 03/05/23 20:03 IMPRESSION: Very limited by the absence of IV and especially oral contrast. Extensive inflammatory process of the right lower quadrant associated with irregular bowel wall thickening of the right colon, probable perforation, and retrocecal abscess. Findings could represent perforated diverticulitis or perforated neoplasm. Colonoscopy is indicated. Nonobstructing left renal stone. The Nonstandard Physician Communication protocol was initiated. Electronically Signed: Cristino Gonzalez MD at 20:58 EST , ADDENDUM: 03/05/23 2210 IMPRESSION: Very limited by the absence of IV and especially oral contrast. Extensive inflammatory process of the right lower quadrant associated with irregular bowel wall thickening of the right colon, probable perforation, and retrocecal abscess. Findings could represent perforated diverticulitis or perforated neoplasm. Colonoscopy is indicated. Nonobstructing left renal stone. The Nonstandard Physician Communication protocol was initiated. N.B. : Stas Arredondo DO, confirmed on 03/05/2023 22:04:07 (ET) that the healthcare facility has received the radiology report. Electronically Signed: Cristino Gonzalez MD at 20:58 EST , Assessment & Plan Assessment/Plan (1) Retrocecal abscess: (2) Right lower quadrant abdominal pain: PLAN: Plan This is a 77-year-old female who presents with acute on chronic right lower quadrant abdominal discomfort and associated fatigue complaints his ER workup shows evidence of acute infectious process with leukocytosis and CT imaging concerning for a 4.4 cm retrocecal abscess. Etiology for this abscess is unclear at present but differential would include possible perforated appendicitis, possible perforated diverticulitis, possible perforated neoplasm... I have tried to convey this information to Ms. Queen as well as the limitations of her understanding of her diagnosis using accompanying hand drawings to illustrate the relevant anatomy. She appears very apprehensive and undecided?even suggesting that she could be dismissed home and follow-up with her primary care provider before committing to treatment. I have tried to impress upon her that this must be dealt with in an expedient fashion and recommended to her that we proceed with treatment here at [facility] or otherwise seek transfer to a [facility] facility where she apparently has more extensive medical records. She confirms her intent to see her care through here [facility] and I therefore recommend that we proceed with repeat CT imaging with oral and IV contrast as a means of hopefully providing more preoperative information. Even still, I have counseledher that we would be looking to consent her for an operation could include possible appendectomy versus possible cecectomy versus possible right hemicolectomy?and that this is the side a moment would likely be intraoperative and is contingent on intraoperative findings. When asked what the risks of thisprocedure would be, I have shared that this would be accompanied by anastomotic failure risk as well as risk for persistent loose stools postoperatively. Patient initially seems very hung up on this latter possibility, but understandsthat it could be an excepted side effect secondary to some of the other diagnoses considered. For the present we will proceed with n.p.o. status, empiric IV antibiotic therapy, repeat CT imaging, and plans to proceed to the ORtomorrow. Charges/Coding Visit Charges Inpatient E&M: 84839 Init Hosp L2 03/05/23 2252 <Electronically signed by Santosh Ballard MD> Cosigner Signature (if applicable): CC: Dr. Jeff Simeon DO; Dr. Santosh Ballard MD~ Signed [facility] Work Phone: Hospital Discharge instructionsAmbulatory Orders* Gastroenterology Location: None Selected * Oncology Location: None Selected [facility] Work Phone: Progress note Author Richard Mckenzie [facility] March 11, 2023 12:26pm Note Date/Time March 11, 2023 1 2:26pm [facility] Medical Records Department [address] [place] [address] Progress Note - Surgery 03/11/23 1225 MR#: [id number] Acct: [id number] Name: NGUYEN QUEEN Rep #:[id number] : 1945 77 From: Richard landa MD PCP: Dr. Jeff Simeon DO Status:AD M IN Location: [facility] [id number] Subjective Subjective Patient reports he tolerated regular diet with no abdominal pain or nausea or vomiting. She is passing gas and she had a bowel movement this morning. Objective Data Objective Data Vital Signs: Vital Signs Temp Pulse Resp BP Pulse Ox O2 Del Method O2 Flow Rate 98 F 103 H 18 146/90 H 97 Room Air 8 03/11/23 09:20 03/11/23 09:20 03/11/23 09:20 03/11/23 09:20 03/11/23 09:20 03/11/23 09:20 03/06/23 19:30 Oxygen Flow Rate (L/min) 8 Oxygen Delivery Method Room Air Weight: 174 lb 14.389 oz Body Mass Index (BMI) 30.9 Intake & Output: Intake and Output for Last 24 Hours 03/09/23 03/10/23 03/11/23 23:59 23:59 23:59 Intake Total 2924.17 / 2924.17 2235.00 / 2335.00 220 / 220 Output Total 90 / 90 115 / 155 90 / 90 Balance 2834.17 / 2834.17 2120.00 / 2180.00 130 / 130 Lab / Micro Data 03/11/23 05:30 03/11/23 05:15 Labs: Laboratory Results - last 24 hr 03/10/23 07:46: Sodium 137, Potassium 4.2, Chloride 111 H, Carbon Dioxide 24.0, Anion Gap 2 L, BUN 21 H, Creatinine 0.48 L, Estim Creat Clear Calc 60.60, Est GFR (MDRD) Af Amer 161, Est GFR (MDRD) Non-Af 133, BUN/Creatinine Ratio 43.6 H, Glucose 123 H, Calcium 8.5, Phosphorus 3.3, Magnesium 2.0 03/10/23 11:59: POC Glucose 164 H 03/10/23 17:28: POC Glucose 99 03/10/23 20:47: POC Glucose 159 H 03/11/23 05:15: Sodium 141, Potassium 4.1, Chloride 114 H, Carbon Dioxide 24.0, Anion Gap 3 L, BUN 21 H, Creatinine 0.45 L, Estim Creat Clear Calc 60.60, Est GFR (MDRD) Af Amer 173, Est GFR (MDRD) Non-Af 143, BUN/Creatinine Ratio 46.3 H, Glucose 119 H, Calcium 8.5 03/11/23 05:23: POC Glucose 110 H 03/11/23 05:30: WBC 10.4, RBC 3.58 L, Hgb 7.9 L, Hct 27.0 L, MCV 75.4 L, MCH 22.1 L, MCHC 29.3 L, RDW Std Deviation 38.1, RDW Coeff of Anand 14.0, Plt Count 527 H, MPV 9.5, Immature Gran % (Auto) 3.700 H, Neut % (Auto) 65.5, Lymph % (Auto) 14.9 L, [place] % (Auto) 7.2, Eos % (Auto) 8.1 H, Baso % (Auto) 0.6, Absolute Neuts (auto) 6.8, Absolute Lymphs (auto) 1.55, Nucleated RBC % 0.2 03/11/23 10:19: POC Glucose 171 H Micro: Microbiology 03/06/23 19:37 Aspirate - Abdominal Gram Stain - Final 03/06/23 19:37 Aspirate - Abdominal Wound Culture - Final Escherichia coli Escherichia coli#2 03/06/23 19:37 Aspirate - Abdominal Anaerobic Culture - Final Clostridium perfringens Bacteroides thetaiotaomicron Physical Exam Const oriented x3 and no apparent distress Resp normal respiratory effort GI soft to palpation and non-tender Inspection: Negative for abdominal distention Assessment & Plan Assessment/Plan (1) Retrocecal abscess: PLAN: Patient is doing well and tolerating regular diet. She had a bowel movement today. Her drain is still serosanguineous. I will remove her drain and send her home on Cipro which is sensitive on her cultures. She will follow-up with Dr. Ballard either late this week or early next week. I have ordered a repeat H&H for the day she comes in for her follow-up. Richard Mckenzie MD Pager: [facility] [address] [place] [address], [address] [place] [address] Office: 03/11/23 1226 <Electronically signed by Richard Mckenzie MD> Cosigner Signature (if applicable): CC: ~ Signed [facility] Work Phone: Progress note Author Jameson Snell [facility] March 11, 2023 12:49pm Note Date/Time March 11, 2023 1 2:49pm [facility] Medical Records Department [address] [place] [address] Progress Note - Hospitalist 03/11/23 1239 MR#: [id number] Acct: [id number] Name: NGUYEN QUEEN Rep #:[id number] : 1945 77 From: Jameson Martinez PCP: Dr. Jeff Simeon, DO Status:AD M IN Location: [facility] [id number] Reason for Visit Reason for Visit: Diagnoses Peritoneal abscess (03/05/23) Right lower quadrant pain (03/05/23) Objective Data Objective Data Vital Signs: Vital Signs Temp Pulse Resp BP Pulse Ox O2 Del Method O2 Flow Rate 98 F 103 H 18 146/90 H 97 Room Air 8 03/11/23 09:20 03/11/23 09:20 03/11/23 09:20 03/11/23 09:20 03/11/23 09:20 03/11/23 09:20 03/06/23 19:30 Oxygen Flow Rate (L/min) 8 Oxygen Delivery Method Room Air Weight: 174 lb 14.389 oz Body Mass Index (BMI) 30.9 Intake & Output: Intake and Output for Last 24 Hours 03/09/23 03/10/23 03/11/23 23:59 23:59 23:59 Intake Total 2924.17 / 2924.17 2235.00 / 2335.00 220 / 220 Output Total 90 / 90 115 / 155 90 / 90 Balance 2834.17 / 2834.17 2120.00 / 2180.00 130 / 130 Lab / Micro Data 03/11/23 05:30 03/11/23 05:15 Labs: Laboratory Results - last 24 hr 03/10/23 07:46: Sodium 137, Potassium 4.2, Chloride 111 H, Carbon Dioxide 24.0, Anion Gap 2 L, BUN 21 H, Creatinine 0.48 L, Estim Creat Clear Calc 60.60, Est GFR (MDRD) Af Amer 161, Est GFR (MDRD) Non-Af 133, BUN/Creatinine Ratio 43.6 H, Glucose 123 H, Calcium 8.5, Phosphorus 3.3, Magnesium 2.0 03/10/23 17:28: POC Glucose 99 03/10/23 20:47: POC Glucose 159 H 03/11/23 05:15: Sodium 141, Potassium 4.1, Chloride 114 H, Carbon Dioxide 24.0, Anion Gap 3 L, BUN 21 H, Creatinine 0.45 L, Estim Creat Clear Calc 60.60, Est GFR (MDRD) Af Amer 173, Est GFR (MDRD) Non-Af 143, BUN/Creatinine Ratio 46.3 H, Glucose 119 H, Calcium 8.5 03/11/23 05:23: POC Glucose 110 H 03/11/23 05:30: WBC 10.4, RBC 3.58 L, Hgb 7.9 L, Hct 27.0 L, MCV 75.4 L, MCH 22.1 L, MCHC 29.3 L, RDW Std Deviation 38.1, RDW Coeff of Anand 14.0, Plt Count 527 H, MPV 9.5, Immature Gran % (Auto) 3.700 H, Neut % (Auto) 65.5, Lymph % (Auto) 14.9 L, [place] % (Auto) 7.2, Eos % (Auto) 8.1 H, Baso % (Auto) 0.6, Absolute Neuts (auto) 6.8, Absolute Lymphs (auto) 1.55, Nucleated RBC % 0.2 03/11/23 10:19: POC Glucose 171 H Micro: Microbiology 03/06/23 19:37 Aspirate - Abdominal Gram Stain - Final 03/06/23 19:37 Aspirate - Abdominal Wound Culture - Final Escherichia coli Escherichia coli#2 03/06/23 19:37 Aspirate - Abdominal Anaerobic Culture - Final Clostridium perfringens Bacteroides thetaiotaomicron Physical Exam Narrative Seen and examined. Patient is walking. No significant abdominal pain. She had bowel movement today. Her cough and breathing also better. Continue diet, regular with avoiding red meat, pork, sugar or concentrated sweet. No fever. No hypoxia. Cough is better in the morning. Patient is doing good on incentive spirometry. Physical exam General: Alert, Oriented x3, Cooperative HEENT: Atraumatic, PERRLA, EOMI, Normocephalic Oral: Oral mucosa moist. No Gingival or Mucosal Lesions/ Ulcerations Neck: Supple, No JVD, Negative Carotid Bruits Lungs: Air entry improved over right lung base. No hypoxia or tachypnea. No crepitation/rhonchi. Cardiovascular: Regular rate, Regular Rhythm, Normal S1, Normal S2, No murmurs Abdomen: Soft, mild tenderness present over right lower quadrant. No guarding/rigidity. Bowel sounds more pronounced and better. SUZIE drains containing mainly serous fluid : No renal angle tenderness. No suprapubic tenderness. Extremities: No edema, Capillary Refill Less than 3 Seconds Skin: surgical dressing on right side of abdomen with drain. Musculoskeletal: No Tenderness to Palpation of Joints or Extremities Neurological: Cranial nerves II-XII grossly intact, DTR 2+/4. No acute focal neurological deficit. Psych/Mental Status: Normal Affect, Appropriate. Assessment & Plan Assessment/Plan (1) Retrocecal abscess: PLAN: Plan This 77-year-old woman being consulted for medical management for perioperative management of retrocecal abscess. 1. Right lower quadrant abdominal pain most likely due to retrocecal abscess: She might have developed retrocecal abscess probably after perforation of appendicitis/inflamed appendix or possible perforated diverticulitis with suspicion of possibility of neoplasm: Patient is being taken for surgery today. Currently n.p.o. on empiric IV antibiotics. Continue incentive spirometry. 03/07: Intraoperative findings: Patient had diagnostic laparoscopy converted to open laparotomy, right hemicolectomy with stapled drfy-op-apau ileocolic anastomosis on 03/07/2023. Intraoperative findings were perforated descending colon mass to the retroperitoneum. Retrocecal abscess cavity with foul-smellingpurulent fluid. Thickened colon wall with desmoplastic reaction 20 cm of colon. Segment 6 of the liver was accessible rest was covered adhesions from prior cholecystectomy. No clinical signs of hepatic metastasis On IV antibiotic meropenem. Patient is doing well with pain controlled on clearliquid. Encourage incentive spirometry to decrease chances of pleural effusion/atelectasis and pneumonia. 03/08: Aspirate fluid culture shows E. coli pansensitive but would prefer coverage of gram-negative and anaerobes broad-spectrum. Portable chest x-ray shows right subsegmental atelectasis in right lung base. Patient encouraged incentive spirometry. Mucinex DM added. 03/09: Postop day third. Air entry better on the right lung base and patient encouraged to do incentive spirometry and Pep. No fever. Cough is better. Enoxaparin 40 mg daily added as DVT prophylaxis. PTH cytology negative for malignant cells. E. coli in peritoneal aspirate is pansensitive, ESBL negative. 03/10: Postop day 4. Air entry has improved especially on right lung base. Regular diet Allowed except concentrated sweet/sugar, milk/fats, red meat/pork ordered. Waiting for bowel movement and may remove drain tomorrow. Discussed with the surgeon. Mild decrease in hemoglobin 7.8 from preop 10.0 with low MCV consistent with acute postop blood loss anemia from surgery. No leukocytosis but patient has immature granulocytes 2.8% suggesting of left shift. IV iron infusion ordered. And then oral ferrous sulfate and vitamin C ordered. No indication for PRBC transfusion. 03/11: Total SUZIE drain constant about 50 to 90 mL mL. SUZIE drain was removed by thesurgeon. Patient had good bowel movement. No leakage or chances of fistula very less as patient had a bowel movement. Patient is discharged home on Cipro and Flagyl to cover E. coli, Clostridium and Bacteroides from peritoneal aspirate. The prescriptions given for 7 days but patient will follow Dr. Giang that and he might discontinue antibiotics depending on clinical improvement. Patient on IV meropenem since 03/06 therefore had 4 days of antibiotics. Recommend 5 more days of antibiotics. Igyx-tpr-btyybnf probioticsfor 1 week while patient is taking antibiotics. 2. Diabetes mellitus type 2: Accu-Chek ACH cover with Humalog sliding scale. Glucose is reasonably controlled, 195 and 147. A1c 6.6. Hold oral hypoglycemicagents as patient is n.p.o. and also going for surgery. 03/07: Glucose about 250s. Increase the dose of Lantus insulin. 03/08: Glucose varies between 170-235. On Lantus insulin. 03/09: Glucose between 153-205. 135 in AM fasting. Lantus insulin dose increased. 03/10 glucose is reasonably well-controlled less than 150. 03/11: Glucose is controlled 119. Patient can resume oral hypoglycemic agents, home medications. 3. Hypertension: Blood pressure is controlled. At home, patient is on mg daily. IV hydralazine as needed during n.p.o. status. 03/07: Home medications resumed. Baby aspirin regimen. 4. Hypothyroidism: 03/07: Resume levothyroxine. 5. Other chronic comorbidities include GERD, migraine and rheumatoid arthritis and history of seizure: Patient not on any antiepileptic medications. On baby aspirin. IV PPI 40 mg once daily ordered. 03/07 change IV PPI to oral. VTE prophylaxis bilateral SCDs. Postop VTE prophylaxis as per surgeons discretion depending on the risk of postop bleeding. Living will/advanced directive/end of life care: Patient does not have living will or advanced directive. She states her next of kin is her niece. After discussion of benefits/risks procedures involved with full code, DNR CC arrest and DNR CC, the patient opted for full code. Patient does want artificial life support including intubation, tube feed, ventilator and/chest compression, central venous catheter, vasopressor and DC shock if needed Patient is discharged from surgical service. Microbiology Past 72 Hours 03/06/23 19:37 Aspirate - Abdominal Gram Stain - Final 03/06/23 19:37 Aspirate - Abdominal Wound Culture - Final Escherichia coli Escherichia coli#2 03/06/23 19:37 Aspirate - Abdominal Anaerobic Culture - Final Clostridium perfringens Bacteroides thetaiotaomicron Laboratory Results 03/10/23 07:46: Sodium 137, Potassium 4.2, Chloride 111 H, Carbon Dioxide 24.0, Anion Gap 2 L, BUN 21 H, Creatinine 0.48 L, Estim Creat Clear Calc 60.60, Est GFR (MDRD) Af Amer 161, Est GFR (MDRD) Non-Af 133, BUN/Creatinine Ratio 43.6 H, Glucose 123 H, Calcium 8.5, Phosphorus 3.3, Magnesium 2.0 03/10/23 17:28: POC Glucose 99 03/10/23 20:47: POC Glucose 159 H 03/11/23 05:15: Sodium 141, Potassium 4.1, Chloride 114 H, Carbon Dioxide 24.0, Anion Gap 3 L, BUN 21 H, Creatinine 0.45 L, Estim Creat Clear Calc 60.60, Est GFR (MDRD) Af Amer 173, Est GFR (MDRD) Non-Af 143, BUN/Creatinine Ratio 46.3 H, Glucose 119 H, Calcium 8.5 03/11/23 05:23: POC Glucose 110 H 03/11/23 05:30: WBC 10.4, RBC 3.58 L, Hgb 7.9 L, Hct 27.0 L, MCV 75.4 L, MCH 22.1 L, MCHC 29.3 L, RDW Std Deviation 38.1, RDW Coeff of Anadn 14.0, Plt Count 527 H, MPV 9.5, Immature Gran % (Auto) 3.700 H, Neut % (Auto) 65.5, Lymph % (Auto) 14.9 L, [place] % (Auto) 7.2, Eos % (Auto) 8.1 H, Baso % (Auto) 0.6, Absolute Neuts (auto) 6.8, Absolute Lymphs (auto) 1.55, Nucleated RBC % 0.2 03/11/23 10:19: POC Glucose 171 H Clinical Impression(s) from Imaging Studies Abdomen/Pelvis CT 03/05/23 20:03 IMPRESSION: Very limited by the absence of IV and especially oral contrast. Extensive inflammatory process of the right lower quadrant associated with irregular bowel wall thickening of the right colon, probable perforation, and retrocecal abscess. Findings could represent perforated diverticulitis or perforated neoplasm. Colonoscopy is indicated. Nonobstructing left renal stone. The Nonstandard Physician Communication protocol was initiated. Abdomen/Pelvis CT 03/06/23 22:40 IMPRESSION: Wall thickening of the ascending colon with pericolonic collection consistent with contained perforation and/or early abscess. Etiology may be due to inflammatory process or colitis, but is suspicious for neoplasm with irregular wall thickening, multiple adjacent enlarged lymph nodes. Also the appendix is not visualized, perforated retrocecal appendicitis less likely but is not entirely excluded. Electronically Signed: Karen Hook MD at 2:15 EST , Chest X-Ray 03/07/23 05:55 IMPRESSION: Subsegmental atelectasis in the lung bases. Electronically Signed: Santosh Dimas MD at 5:08 EST , Avoiding red meat concentrated sugar sweets Charges/Coding Visit Charges Inpatient E&M: 45439 Subs Hosp L2 03/11/23 1249 <Electronically signed by Jameson Snell MD> Cosigner Signature (if applicable): CC: ~ Signed [facility] Work Phone: Progress note Author Jarrell Crystal [facility] Note Date/Time November 04, 2024 11:56am [facility] [address] [place] [address] OFFICE VISIT Date of Service: 11/04/24 MR#: [id number] Acct: [id number] Name: NGUYEN QUEEN Rep #: [id number] : 1945 Provider: Jarrell Crystal DO Age/Sex: 79/F Location: [facility] Status: Signed Intake Vital Signs 04/29/24 13:13 10/23/24 14:05 Height 5 ft 3 in 5 ft 3 in Weight: 173 lb 9 oz BMI 30.7 BP 111/73 Blood Pressure Location Lt brachial Position Sitting Respiration 18 Pulse 75 Pulse Source Monitor Temp 98 F Pulse Oximetry (%) 96 Oxygen Delivery Method room air Intake Visit Reasons: 6 M FU Chief Complaint: 6 M f/u Wool Hanker Required: No Is patient in pain?: No Allergies Corticosteroids (Glucocorticoids) (steroids) Allergy (Severe, Verified 11/04/24 11:30) Shortness of breath acetaminophen (From Tylenol) Allergy (Intermediate, Verified 11/04/24 11:30) Shortness of breath aspirin Allergy (Intermediate, Verified 11/04/24 11:30) Shortness of breath diphenhydramine (From Benadryl) Allergy (Verified 11/04/24 11:30) PT UNSURE OF REACTION Penicillins Allergy (Verified 11/04/24 11:30) PT UNSURE OF REACTION Beef Containing Products Adverse Reaction (Verified 11/04/24 11:30) Other [place] And Derivatives Adverse Reaction (Verified 11/04/24 11:30) Other Food Allergies: Uncoded Adverse Reaction (Verified 11/04/24 11:30) Vomiting Medications ?Medication ?Instructions ?Recorded ?Confirmed ?Type glimepiride 2 mg tablet 2 mg PO DAILY diabetes 03/0511/04/24 History levothyroxine 150 mcg tablet 150 mcg PO SUMOTU thyroid 03/05/23 11/04/24 History losartan 50 mg tablet 50 mg PO DAILY blood pressur e 03/05/23 11/04/24 History metformin 500 mg tablet 500 mg PO BID diabetes 03/0511/04/24 History levothyroxine 150 mcg capsule 225 mcg PO WETHFRSA thyr oid 12/13/23 11/04/24 His tory ferrous sulfate 325 mg (65 mg 325 mg PO .COMPLEX 05/0611/04/24 History iron) tablet (FeroSul) cholestyramine (with sugar) 4 gram 4 g PO HS 3 months #60 ea 11/04/24 11/04/24 Rx powder for susp in a packet Have you fallen in the past year?: No PFSH Medical History Colon cancer Bilateral lower extremity edema Elevated CEA GI bleed Colitis Vision loss of right eye Vision loss of left eye Anemia Hypothyroidism Chronic pain Rheumatoid arthritis GERD (gastroesophageal reflux disease) Non-smoker Irregular heart beat Hypertension Migraines Seizures Diabetes mellitus Surgical History History of appendectomy Status post right hemicolectomy Hx of cholecystectomy Social History Smoking Status: Never smoker alcohol intake: never HPI HPI Chief Complaint: 6 M f/u Details: NGUYEN QUEEN, is a 79 F who presents to the office today for f/u *[facility] established 4.15.24 for repeat colonoscopy after recent diagnosis and treatment of colon adenocarcinoma and suspicion for possible inflammatory bowel disease because of elevated calprotectin. Patient is stated she always has bowelmovement of once or twice a week, normal for the patient since your early teen, well formed, soft to semi solid consistency without blood or mucus. Sometimes, gastritis symptoms like dyspepsia, or bloating symptoms. No abdominal pain. Noacute change in bowel movement. No fever abd/pelvis CT 8 Abnormal submucosal thickening of the distal transverse colon along with the entire descending colon with pericolonic inflammatory stranding but no perforation or abscess. Findings consistent with adiffuse colitis, likely infectious or inflammatory, pseudomembranous colitis canhave this appearance. Focal ileus at the site of previous anastomosis in the midtransverse colon which is fluid distended but there is no wall thickening or evidence of inflammation, no bile leak is noted Fatty liver, no discrete lesion Parapelvic renal cysts, no specific follow-up needed. Subcentimeter in short axis dimension mesenteric and retroperitoneal lymph nodes likely reactive. No bulky adenopathy noted Uterus is present, the endometrium cannot be accurately evaluated with [facility] hospitalization 9.05.05 - 9.07.05 abd pain - presents with 5 days of nausea, vomiting, and diarrhea, along with black stool. abd/pelvis CT .05.05 Moderate colitis of the mid transverse to distal descending colon, mildly decreased from prior. Colonic diverticulosis without acute diverticulitis. Proximal colectomy. Hepatic steatosis. Small nonobstructing left renal calculus. EGD and Colonoscopy .06.05 EGD Grade I esophageal varices. Normal lower third of esophagus Friable (with contact bleeding) and granular mucosa in the lesser curvature. Biopsied. No gross lesions in the second portion of the duodenum. Colonoscopy Preparation of the colon was poor. Diverticulosis in the recto- sigmoid colon and in the sigmoid colon. Rule out malignancy, partially obstructing tumor at the splenic flexure, in the transverse colon, at the hepatic flexure and in the cecum. Biopsied. Malignant-appearing tumor in the colon. Biopsied. Biopsied. MREnterography 01.22.24 1. Persistent wall thickening of the transverse colon through the proximal sigmoid colon with adjacent prominence of the vasa recta and numerous small scattered adjacent lymph nodes similar to the prior CT.Findings consistent with colitis likely due to inflammatory bowel disease. An underlying malignancy not excluded. Consider colonoscopy follow-up. 2. Cholecystectomy. 3. Status post right colectomy with ileocolic anastomosis involving the mid transverse colon. OV 05.06.24 pt reports that she is starting to gain some strength back and is no longer having blood in her stool. Pt does endorse continued diarrhea, nocturnal diarrhea, and fecal incontinence. OV 11/04/24-Pt f/u for issues with diarrhea and colon CA. Pt feels the cholestyramine is helping and needs a refill. Pt has no c/o abd pain or blood instool. Pt is now on iron pills. ROS ENT ENT: Positive for difficulty swallowing Gastro GI: Positive for bloating, diarrhea, difficulty swallowing and excessive flatus Musc Musculoskeletal: Positive for joint pain and Arthritis Jaylon/Lymp Hematologic/Lymphatic: Positive for easy bruising Assessment and Plan Assessment and Plan (1) Colon cancer, ascending: Status: Chronic Comment: S/P R hemicolectomy. Increased CEA 19 on 09/24/2023. CT a/p on 10/10/[address] chest on 12/03/2023 showed R lung nodule which is old. ctDNA on 11/19/2023 was 0. CEA is decreasing, 4.9 on 10/16/2024. No evidence of disease clinically. Plan: Invasive adenocarcinoma of the ascending colon which also focally involves the ileocecal valve. Macroscopic tumor perforation was identified. S/P R hemicolectomy on 03/06/2023. Final pathologic stage was a pT3, pTN0, pM0, grade 2. Stage IIA with abscess. High risk for recurrence. CT chest which did not find any evidence of distant metastasis. Intraoperative findings: Patient had diagnostic laparoscopy converted to open laparotomy, right hemicolectomy with stapled [id number] ileocolic anastomosis on 03/07/2023. Patient saw oncologist Dr. Singh in March 2023. Final pathology diagnosis T3 N0 M0 grade 2, stage IIa with abscess. High risk for recurrence. In his note he mentioned treatment with adjuvant therapy versus observation discussed along with risk benefit and side effects. He is sent for plan circulating tumor DNA, Signatera which came out negative. It is mPCR assay for detection of circulating tumor DNA in the plasma I advised her that she will need a surviallence colonoscopy due to her history of colon cancer. She wants to hold off at this time because she still feelings like she is healing. She has lost 40lbs intentionally through diet and exercise. (2) Ulcerative colitis: Status: Chronic Qualifiers: Ulcerative colitis location: unspecified ulcerative colitis location Digestive disease complication type: with abscess Qualified Code(s): K51.914 - Ulcerative colitis, unspecified with abscess Plan: R hemicolectomy specimen shows Ulcerative colitis. Stool calprotectin is slightly high 129 on 03/21/2023. Patient currently only having 1 bowel movement per week. This does not seem congruent with typical presentation of ulcerative colitis. I have recommended follow-up colonoscopy with gastroenterology given this pathology finding of ulcerative colitis in addition to her colon cancer. Offer for referral made and patient is receptive. Simply recommending that patient undergo complete colonoscopy within 12 months of her cancer diagnosis. She is interested in waiting several additional months with her recovery before proceeding. During colon cancer surgery and biopsy, additional pathologic findings were reported as focal chronic active colitis consistent with inflammatory bowel disease (ulcerative colitis). Repeat stool calprotectin test and expanded IBD inflammatory panel ordered. We have talked about repeating her colonoscopy but she would like to hold off atthis time. I tried her on as mesalamine products but she did not have a good response. Therefore since she is having some diarrhea particularly at night andin the morning we will give her cholestyramine at night. She has good control with the cholestyramine so we will continue it. (3) NAFLD (nonalcoholic fatty liver disease): Status: Chronic Plan: In February 2023 when she was undergoing evaluation for colon cancer during hospital stay she had CT abdomen shows steatosis of liver with hepatomegaly. Status postcholecystectomy, CBD 1.1. Normal spleen and pancreas Medications: Changed From cholestyramine (with sugar) 4 gram no meds 1 hr before/4-6 hr after dose 4 grams PO HS 60 ea 0RF To cholestyramine (with sugar) 4 gram no meds 1 hr before/4-6 hr after dose 4 grams PO HS 60 ea 3RF 3 months Coding Level of Care Code Off vis,est,level 4 Diagnoses Colon cancer, ascending C18.2 Ulcerative colitis with abscess, unspecified location K51.914 Ulcerative colitis location: unspecified ulcerative colitis location Digestive disease complication type: with abscess NAFLD (nonalcoholic fatty liver disease) K76.0 Clinical Quality Measures Falls Risk Screening/Assistive Devices Have you fallen in the past year?: No 11/04/24 1800 <Electronically signed by Jarrell martinez DO> Date _ Jarrell Crystal DO Cosigner Signature: Date (if applicable) CC: ~ [facility] Work Phone: Reason for referral (narrative)* Diagnostic Procedure Only (Routine) - Pending Review Specialty Diagnoses / Procedures Referred By Angela t Referred To Contact [facility] Diagnoses Encounter for screening mammogram for malignant neoplasm of breast Procedures CAROLINE SCREENING W FLOR SCREENING DIGITAL BREAST TOMOSYNTHESIS BI SCREENING MAMMOGRAPHY BI 2-VIEW BREAST INC CAD Jahaira Harrison, CATCHER HELPER.ELECTRICAL ENGINEERING DIRECTOR [address] [place] [address] [facility] [address] [place] [address] Referral ID Status Reason Start Date Expiration Date Visits Requested Visits Authorized [id number] Pending Review Auto-Generat ed Referral 05/18/2021 06/17/2022 1 1 [facility] for referral (narrative)* Diagnostic Procedure Only (Routine) - Pending Review Specialty Diagnoses / Procedures Referred By Angela carey Referred To Contact [facility] Diagnoses Encounter for screening mammogram for malignant neoplasm of breast Procedures CAROLINE SCREENING SCREENING MAMMOGRAPHY BI 2-VIEW BREAST INC CAD Jeff Simeon DO [address] [place] [address] [facility] [address] [place] [address] Referral ID Status Reason Start Date Expiration Date Visits Requested Visits Authorized [id number] Pending Review Auto-Generat ed Referral 02/20/2022 03/22/2023 1 1 [facility] for referral (narrative)No reason for referral information [facility] Work Phone: Reason for visit Narrative* Diagnostic Procedure Only (Routine) - Closed Specialty Diagnoses / Procedures Referred By Angela carey Referred To Contact Radiology / [facility] Diagnoses xray main lobby Procedures XR GENERAL 7 Jeff Simeon DO [address] [place] [address] [facility] [address] [place] [address] Referral ID Status Reason Start Date Expiration Date Visits Re quested Visits Authorized [id number] Closed 08/25/2020 02/11/2021 1 1 [facility] for visit Narrative* Diagnostic Procedure Only (Urgent) - Closed Specialty Diagnoses / Procedures Referred By Angela carey Referred To Contact [facility] Diagnoses Left leg swelling Right leg swelling Procedures US DVT LOWER BILATERAL DUP-SCAN XTR VEINS COMPLETE BILATERAL STUDY Jeff Simeon DO [address] [place] [address] Phone: tel: fax: [place] [id number] Referral ID Status Reason Start Date Expiration Date V isits Requested Visits Authorized [id number] Closed Auto-Generate d Referral 2024 06/22/2025 1 1 [facility] Summary Purpose Family History No Family History Records FoundNo Family History Records FoundNo Family History Records FoundNo Family History Records Found Advance Directives No Advanced Directives Records FoundDocuments on File Type Date Recorded Patient News Agent Expl anation Advance Directive(s) 04/23/2019 11:29 AM Advance Directive(s) 02/26/2018 8:33 AM Advance Directive(s) 02/22/2018 7:13 PM Advance Directive Response Recorded Date/ Time Living Will Yes December 21 11:16pm Power of Mechanical Pencils Assembler Yes December 21, 2020 11:16pm Documents on File Type Date Recorded Patient News Agent Expl anation Advance Directive(s) 04/23/2019 11:29 AM Advance Directive(s) 02/26/2018 8:33 AM Advance Directive(s) 02/22/2018 7:13 PM Documents on File Type Date Recorded Patient News Agent Expl anation Advance Directive(s) 04/23/2019 11:29 AM Documents on File Type Date Recorded Patient News Agent Expl anation Advance Directive(s) 04/23/2019 11:29 AM Advance Directive Response Recorded Date/ Time Living Will No March 05 7:37pm Power of Mechanical Pencils Assembler No March 05, 2023 7:37pm Advance Directive Response Recorded Date/ Time Name of Medical Power of Mechanical Pencils Assembler Alissa gomez (Niece) March 05, 2023 11:31pm Living Will Yes March 05 11:31pm Power of Mechanical Pencils Assembler Yes March 05, 2023 11:31pm Advance Directive Response Recorded Date/ Time Name of Medical Power of Mechanical Pencils Assembler Alissa Yingadvis patricia (Niece) March 06, 2023 12:31am Living Will Yes March 06 12:31am Power of Mechanical Pencils Assembler Yes March 06, 2023 12:31am Advance Directive Response Recorded Date/ Time Living Will No October 15 8:05pm Do you have a Healthcare Power of Mechanical Pencils Assembler? No October 16, 2023 8:05pm Living Will Yes March 06 12:31am Do you have a Healthcare Power of Mechanical Pencils Assembler? Yes March 06, 2023 12:31am Advance Directive Response Recorded Date/ Time Living Will Yes March 06 12:31am Do you have a Healthcare Power of Mechanical Pencils Assembler? Yes March 06, 2023 12:31am Chief Complaint and Reason for Visit Chief Complaint SCREENING Chief Complaint RETROCECAL ABSCESS abd pain Reason for Visit Retrocecal abscess Right lower quadrant abdominal pain Chief Complaint RETROCECAL ABSCESS abd pain RETROCECAL ABSCESS RETROCECAL ABSCESS RETROCECAL ABSCESS RETROCECAL ABSCESS RETROCECAL ABSCESS RETROCECAL ABSCESS RETROCECAL ABSCESS RETROCECAL ABSCESS RETROCECAL ABSCESS RETROCECAL ABSCESS RETROCECAL ABSCESS RETROCECAL ABSCESS Reason for Visit Retrocecal abscess Right lower quadrant abdominal pain Chief Complaint RETROCECAL ABSCESS abd pain RETROCECAL ABSCESS RETROCECAL ABSCESS RETROCECAL ABSCESS RETROCECAL ABSCESS RETROCECAL ABSCESS RETROCECAL ABSCESS RETROCECAL ABSCESS RETROCECAL ABSCESS RETROCECAL ABSCESS RETROCECAL ABSCESS RETROCECAL ABSCESS RETROCECAL ABSCESS Retrocecal abscess 03-11 [facility] ONC STAPLE REMOVAL 2[facility] PRIOR Malignant neoplasm of ascending colon ANEMIA Retrocecal abscess 03-11 Reason for Visit Retrocecal abscess Right lower quadrant abdominal pain Colon cancer, ascending Status post right hemicolectomy Colon cancer, ascending Ulcerative colitis Colon cancer, ascending Colon cancer, ascending Ulcerative colitis Colon cancer, ascending Status post right hemicolectomy Ulcerative colitis Chief Complaint RETROCECAL ABSCESS abd pain RETROCECAL ABSCESS RETROCECAL ABSCESS RETROCECAL ABSCESS RETROCECAL ABSCESS RETROCECAL ABSCESS RETROCECAL ABSCESS RETROCECAL ABSCESS RETROCECAL ABSCESS RETROCECAL ABSCESS RETROCECAL ABSCESS RETROCECAL ABSCESS RETROCECAL ABSCESS Retrocecal abscess 03-11 [facility] STAPLE REMOVAL 2WKS LABS PRIOR Malignant neoplasm of ascending colon ANEMIA Retrocecal abscess 03-11 SCREENING Reason for Visit Retrocecal abscess Right lower quadrant abdominal pain Colon cancer, ascending Status post right hemicolectomy Colon cancer, ascending Ulcerative colitis Colon cancer, ascending Colon cancer, ascending Ulcerative colitis Colon cancer, ascending Status post right hemicolectomy Ulcerative colitis Chief Complaint Admit Date Anemia, unspecified January 22, 2024 12:02pm [facility] January 24, 2024 1:22pm [facility] April 17, 2024 1:00 pm MED ONC April 17, 2024 1:15 pm ONC April 29, 2024 11: 24am 6 M FU May 06, 2024 10: 43am Reason for Visit Admit Date Bilateral lower extremity edema January 24, 2024 1:22pm Colon cancer, ascending January 23, 2 024 1:22pm Elevated CEA January 24, 2024 1:22pm Anemia January 24, 2024 1:22pm Colon cancer, ascending April 17, 2024 1:00pm Elevated CEA April 17, 2024 1:00 pm Anemia April 17, 2024 1:00 pm Colon cancer, ascending May 06, 2024 10:43am NAFLD (nonalcoholic fatty liver disease) May 06, 2024 10:43am Ulcerative colitis May 06, 2024 10: 43am Chief Complaint Admit Date MED ONC October 16, 2024 8:00am [facility] PRIOR October 23, 2024 1:37pm Reason for Visit Admit Date Colon cancer, ascending October 23, 2024 1:37pm Elevated CEA October 23, 2024 1:37pm Anemia October 23, 2024 1:37pm Chief Complaint Admit Date MED ONC October 16, 2024 8:00am [facility] PRIOR October 23, 2024 1:37pm 6 M FU November 04, 2024 10:48am Reason for Visit Admit Date Colon cancer, ascending October 23, 2024 1:37pm Elevated CEA October 23, 2024 1:37pm Anemia October 23, 2024 1:37pm Colon cancer, ascending November 04, 2024 10:48am NAFLD (nonalcoholic fatty liver disease) November 04, 2024 10:48am Ulcerative colitis November 04, 2024 10:48am Medications Administered Section Active Administered Medications - [...] 2:51 PM EDT 1,000 mcg Deltoid, Right Given 05/30/2021 10:12 AM EDT 1,000 mcg D eltoid, Right Active Administered Medications - up to [...] 2:39 PM EDT 1,000 mcg Deltoid, Right Given 06/13/2021 2:28 PM EDT 1,000 mcg De ltoid, Right Given 06/06/2021 2:51 PM EDT 1,000 mcg De ltoid, Right Active Administered Medications - up to [...] 9:40 AM EDT 1,000 mcg Deltoid, Right Given 06/20/2021 2:39 PM EDT 1,000 mcg De ltoid, Right Given 06/13/2021 2:28 PM EDT 1,000 mcg De ltoid, Right Active Administered Medications - up to [...] 9:35 AM EDT 1,000 mcg Deltoid, Right Given 07/04/2021 9:40 AM EDT 1,000 mcg De ltoid, Right Given 06/20/2021 2:39 PM EDT 1,000 mcg De ltoid, Right Active Administered Medications - up to [...] 9:07 AM EDT 1,000 mcg Deltoid, Right Given 09/19/2021 10:12 AM EDT 1,000 mcg D eltoid, Right Given 08/24/2021 10:43 AM EDT 1,000 mcg D eltoid, Right Active Administered Medications - up to [...] AM EST 1,000 mcg Arm , Right Given 11/15/2021 10:23 AM EDT 1,000 mcg D eltoid, Left Active Administered Medications - up to 3 most recent administrations Medication Order MAR Action Action Date Dose Rate Site cyanocobalamin 1,000 mcg injection 1,000 mcg, INTRAMUSCULAR, EVERY 4 WEEKS, 12 doses, First dose on Sun11/15/21 at 1000, Last dose on Sun09/19/22 at 1000 Given 01/17/2022 9:10 AM EST 1,000 mcg Deltoid, Right Given 12/20/2021 8:56 AM EST 1,000 mcg Ar m, Right Given 11/15/2021 10:23 AM EDT 1,000 mcg D eltoid, Left Active Administered Medications - up to 3 most recent administrations Medication Order MAR Action Action Date Dose Rate Site cyanocobalamin 1,000 mcg injection 1,000 mcg, INTRAMUSCULAR, EVERY 4 WEEKS, 12 doses, First dose on Sun11/15/21 at 1000, Last dose on Sun09/19/22 at 1000 Given 02/20/2022 10:20 AM EST 1,000 mcg Deltoid, Right Given 01/17/2022 9:10 AM EST 1,000 mcg De ltoid, Right Given 12/20/2021 8:56 AM EST 1,000 mcg Ar m, Right Active Administered Medications - up to 3 most recent administrations Medication Order MAR Action Action Date Dose Rate Site cyanocobalamin 1,000 mcg injection 1,000 mcg, INTRAMUSCULAR, EVERY 4 WEEKS, 12 doses, First dose on Sun11/15/21 at 1000, Last dose on Sun09/19/22 at 1000 Given 03/20/2022 9:15 AM EST 1,000 mcg Deltoid, Right Given 02/20/2022 10:20 AM EST 1,000 mcg D eltoid, Right Given 01/17/2022 9:10 AM EST 1,000 mcg De ltoid, Right Active Administered Medications - up to 3 most recent administrations Medication Order MAR Action Action Date Dose Rate Site cyanocobalamin 1,000 mcg injection 1,000 mcg, INTRAMUSCULAR, EVERY 4 WEEKS, 12 doses, First dose on Sun11/15/21 at 1000, Last dose on Sun09/19/22 at 1000 Given 05/15/2022 9:00 AM EDT 1,000 mcg Deltoid, Right Given 04/17/2022 9:14 AM EST 1,000 mcg De ltoid, Right Given 03/20/2022 9:15 AM EST 1,000 mcg De ltoid, Right Active Administered Medications - up to 3 most recent administrations Medication Order MAR Action Action Date Dose Rate Site cyanocobalamin 1,000 mcg injection 1,000 mcg, INTRAMUSCULAR, EVERY 4 WEEKS, 12 doses, First dose on Sun11/15/21 at 1000, Last dose on Sun09/19/22 at 1000 Given 05/24/2022 4:35 PM EDT 1,000 mcg Deltoid, Right Given 05/15/2022 9:00 AM EDT 1,000 mcg De ltoid, Right Given 04/17/2022 9:14 AM EST 1,000 mcg De ltoid, Right Active Administered Medications - up to 3 most recent administrations Medication Order MAR Action Action Date Dose Rate Site cyanocobalamin 1,000 mcg injection 1,000 mcg, INTRAMUSCULAR, EVERY 4 WEEKS, 12 doses, First dose on Sun11/15/21 at 1000, Last dose on Sun09/19/22 at 1000 Given 06/12/2022 9:32 AM EDT 1,000 mcg Deltoid, Right Given 05/24/2022 4:35 PM EDT 1,000 mcg De ltoid, Right Given 05/15/2022 9:00 AM EDT 1,000 mcg De ltoid, Right Active Administered Medications - up to 3 most recent administrations Medication Order MAR Action Action Date Dose Rate Site cyanocobalamin 1,000 mcg injection 1,000 mcg, INTRAMUSCULAR, EVERY 4 WEEKS, 12 doses, First dose on Sun11/15/21 at 1000, Last dose on Sun09/19/22 at 1000 Given 07/11/2022 9:35 AM EDT 1,000 mcg Deltoid, Right Given 06/12/2022 9:32 AM EDT 1,000 mcg De ltoid, Right Given 05/24/2022 4:35 PM EDT 1,000 mcg De ltoid, Right Active Administered Medications - up to 3 most recent administrations Medication Order MAR Action Action Date Dose Rate Site cyanocobalamin 1,000 mcg injection 1,000 mcg, INTRAMUSCULAR, EVERY 4 WEEKS, 12 doses, First dose on Sun11/15/21 at 1000, Last dose on Sun09/19/22 at 1000 Given 08/07/2022 10:23 AM EDT 1,000 mcg Deltoid, Right Given 07/11/2022 9:35 AM EDT 1,000 mcg De ltoid, Right Given 06/12/2022 9:32 AM EDT 1,000 mcg De ltoid, Right Active Administered Medications - up to 3 most recent administrations Medication Order MAR Action Action Date Dose Rate Site cyanocobalamin 1,000 mcg injection 1,000 mcg, INTRAMUSCULAR, EVERY 2 WEEKS, 26 doses, First dose on Sun09/05/22 at 1130, Last dose on Sun08/21/23 at 1130 Given 09/19/2022 9:31 AM EDT 1,000 mcg Deltoid, Right Given 09/05/2022 11:20 AM EDT 1,000 mcg D eltoid, Right Active Administered Medications - up to 3 most recent administrations Medication Order MAR Action Action Date Dose Rate Site cyanocobalamin 1,000 mcg injection 1,000 mcg, INTRAMUSCULAR, EVERY 2 WEEKS, 26 doses, First dose on Sun09/05/22 at 1130, Last dose on Sun08/21/23 at 1130 Given 10/02/2022 9:49 AM EDT 1,000 mcg Deltoid, Right Given 09/19/2022 9:31 AM EDT 1,000 mcg De ltoid, Right Given 09/05/2022 11:20 AM EDT 1,000 mcg D eltoid, Right Active Administered Medications - up to 3 most recent administrations Medication Order MAR Action Action Date Dose Rate Site cyanocobalamin 1,000 mcg injection 1,000 mcg, INTRAMUSCULAR, EVERY 2 WEEKS, 26 doses, First dose on Sun09/05/22 at 1130, Last dose on Sun08/21/23 at 1130 Given 10/17/2022 9:12 AM EDT 1,000 mcg Deltoid, Right Given 10/02/2022 9:49 AM EDT 1,000 mcg De ltoid, Right Given 09/19/2022 9:31 AM EDT 1,000 mcg De ltoid, Right Active Administered Medications - up to 3 most recent administrations Medication Order MAR Action Action Date Dose Rate Site cyanocobalamin 1,000 mcg injection 1,000 mcg, INTRAMUSCULAR, EVERY 2 WEEKS, 26 doses, First dose on Sun09/05/22 at 1130, Last dose on Sun08/21/23 at 1130 Given 11/03/2022 8:54 AM EDT 1,000 mcg Deltoid, Right Given 10/17/2022 9:12 AM EDT 1,000 mcg De ltoid, Right Given 10/02/2022 9:49 AM EDT 1,000 mcg De ltoid, Right Active Administered Medications - up to 3 most recent administrations Medication Order MAR Action Action Date Dose Rate Site cyanocobalamin 1,000 mcg injection 1,000 mcg, INTRAMUSCULAR, EVERY 2 WEEKS, 26 doses, First dose on Sun09/05/22 at 1130, Last dose on Sun08/21/23 at 1130 Given 11/16/2022 9:00 AM EDT 1,000 mcg Deltoid, Right Given 11/03/2022 8:54 AM EDT 1,000 mcg De ltoid, Right Given 10/17/2022 9:12 AM EDT 1,000 mcg De ltoid, Right Active Administered Medications - up to 3 most recent administrations Medication Order MAR Action Action Date Dose Rate Site cyanocobalamin 1,000 mcg injection 1,000 mcg, INTRAMUSCULAR, EVERY 2 WEEKS, 26 doses, First dose on Sun09/05/22 at 1130, Last dose on Sun08/21/23 at 1130 Given 11/30/2022 9:16 AM EDT 1,000 mcg Deltoid, Right Given 11/16/2022 9:00 AM EDT 1,000 mcg De ltoid, Right Given 11/03/2022 8:54 AM EDT 1,000 mcg De ltoid, Right Active Administered Medications - up to 3 most recent administrations Medication Order MAR Action Action Date Dose Rate Site cyanocobalamin 1,000 mcg injection 1,000 mcg, INTRAMUSCULAR, EVERY 2 WEEKS, 26 doses, First dose on Sun09/05/22 at 1130, Last dose on Sun08/21/23 at 1130 Given 12/08/2022 10:18 AM EDT 1,000 mcg Deltoid, Right Given 11/30/2022 9:16 AM EDT 1,000 mcg De ltoid, Right Given 11/16/2022 9:00 AM EDT 1,000 mcg De ltoid, Right Active Administered Medications - up to 3 most recent administrations Medication Order MAR Action Action Date Dose Rate Site cyanocobalamin 1,000 mcg injection 1,000 mcg, INTRAMUSCULAR, EVERY 2 WEEKS, 26 doses, First dose on Sun09/05/22 at 1130, Last dose on Sun08/21/23 at 1130 Given 12/28/2022 9:50 AM EST 1,000 mcg Deltoid, Right Given 12/14/2022 10:11 AM EDT 1,000 mcg D eltoid, Right Given 12/08/2022 10:18 AM EDT 1,000 mcg D eltoid, Right Active Administered Medications - up to 3 most recent administrations Medication Order MAR Action Action Date Dose Rate Site cyanocobalamin 1,000 mcg injection 1,000 mcg, INTRAMUSCULAR, EVERY 2 WEEKS, 26 doses, First dose on Sun09/05/22 at 1130, Last dose on Sun08/21/23 at 1130 Given 01/25/2023 10:23 AM EST 1,000 mcg Deltoid, Right Given 01/11/2023 10:36 AM EST 1,000 mcg D eltoid, Right Given 12/28/2022 9:50 AM EST 1,000 mcg De ltoid, Right Reason for Referral Specialty Diagnoses / Procedures Referred By Contac t Referred To Contact General Surgery Diagnoses RUQ abdominal pain Calculus of gallbladder without cholecystitis without obstruction Fatty liver Procedures CONSULT TO GENERAL SURGERY OFFICE/OUTPATIENT [facility] HIGH MDM 60-74 MINUTES Jeff Simeon, DO [address] [place] [address] Referral ID Status Reason Start Date Expiration Date Visits Requested Visits Authorized [id number] Authorized PCP Requested Referral 03/21/2022 03/21/2023 1 1 Additional Source Comments INFORMATION SOURCE (unrecogn ized section and content) DATE CREATED AUTHOR 03/02/2018 [facility] DATE CREATED AUTHOR AUTHOR'S ORGANIZ ATION 04/10/2022 [facility] DATE CREATED AUTHOR AUTHOR'S ORGANIZ ATION 12/24/2024 [facility] DATE CREATED AUTHOR AUTHOR'S ORGANIZ ATION 12/24/2024 [facility] Source Comments (unrecognize d section and content) In the event this informatio n is protected by the Federal Confidentiality of Alcohol and Drug Abuse Patient Records regulations: The Federal rules restrict any use of the information to criminally investigate or prosecute any alcohol or drug abuse patient.[facility] SystemIn the event this information is protected by the Federal Confidentiality of Alcohol and Drug Abuse Patient Records regulations: The Federal rules restrict any use of the information to criminally investigate or prosecute any alcohol or drug abuse patient.[facility] SystemIn the event this information is protected by the Federal Confidentiality of Alcohol and Drug Abuse Patient Records regulations: The Federal rules restrict any use of the information to criminally investigate or prosecute any alcohol or drug abuse patient.[facility] SystemIn the event this information is protected by the Federal Confidentiality of Alcohol and Drug Abuse Patient Records regulations: The Federal rules restrict any use of the information to criminally investigate or prosecute any alcohol or drug abuse patient.[facility] SystemIn the event this information is protected by the Federal Confidentiality of Alcohol and Drug Abuse Patient Records regulations: The Federal rules restrict any use of the information to criminally investigate or prosecute any alcohol or drug abuse patient.[facility] SystemIn the event this information is protected by the Federal Confidentiality of Alcohol and Drug Abuse Patient Records regulations: The Federal rules restrict any use of the information to criminally investigate or prosecute any alcohol or drug abuse patient.[facility] SystemIn the event this information is protected by the Federal Confidentiality of Alcohol and Drug Abuse Patient Records regulations: The Federal rules restrict any use of the information to criminally investigate or prosecute any alcohol or drug abuse patient.[facility] SystemIn the event this information is protected by the Federal Confidentiality of Alcohol and Drug Abuse Patient Records regulations: The Federal rules restrict any use of the information to criminally investigate or prosecute any alcohol or drug abuse patient.[facility] SystemIn the event this information is protected by the Federal Confidentiality of Alcohol and Drug Abuse Patient Records regulations: The Federal rules restrict any use of the information to criminally investigate or prosecute any alcohol or drug abuse patient.[facility] SystemIn the event this information is protected by the Federal Confidentiality of Alcohol and Drug Abuse Patient Records regulations: The Federal rules restrict any use of the information to criminally investigate or prosecute any alcohol or drug abuse patient.[facility] SystemIn the event this information is protected by the Federal Confidentiality of Alcohol and Drug Abuse Patient Records regulations: The Federal rules restrict any use of the information to criminally investigate or prosecute any alcohol or drug abuse patient.[facility] SystemIn the event this information is protected by the Federal Confidentiality of Alcohol and Drug Abuse Patient Records regulations: The Federal rules restrict any use of the information to criminally investigate or prosecute any alcohol or drug abuse patient.[facility] SystemIn the event this information is protected by the Federal Confidentiality of Alcohol and Drug Abuse Patient Records regulations: The Federal rules restrict any use of the information to criminally investigate or prosecute any alcohol or drug abuse patient.[facility] SystemIn the event this information is protected by [...] or prosecute any alcohol or drug abuse patient.[facility] SystemIn the event this information is protected by the Federal Confidentiality of Alcohol and Drug Abuse Patient Records regulations: The Federal rules restrict any use of the information to criminally investigate or prosecute any alcohol or drug abuse patient.[facility] SystemIn the event this information is protected by the Federal Confidentiality of Alcohol and Drug Abuse Patient Records regulations: The Federal rules restrict any use of the information to criminally investigate or prosecute any alcohol or drug abuse patient.[facility] the event this information is protected by the Federal Confidentiality of Alcohol and Drug Abuse Patient Records regulations: The Federal rules restrict any use of the information to criminally investigate or prosecute any alcohol or drug abuse patient.[facility] SystemIn the event this information is protected by the Federal Confidentiality of Alcohol and Drug Abuse Patient Records regulations: The Federal rules restrict any use of the information to criminally investigate or prosecute any alcohol or drug abuse patient.[facility] SystemIn the event this information is protected by the Federal Confidentiality of Alcohol and Drug Abuse Patient Records regulations: The Federal rules restrict any use of the information to criminally investigate or prosecute any alcohol or drug abuse patient.[facility] SystemIn the event this information is protected by the Federal Confidentiality of Alcohol and Drug Abuse Patient Records regulations: The Federal rules restrict any use of the information to criminally investigate or prosecute any alcohol or drug abuse patient.[facility] SystemIn the event this information is protected by the Federal Confidentiality of Alcohol and Drug Abuse Patient Records regulations: The Federal rules restrict any use of the information to criminally investigate or prosecute any alcohol or drug abuse patient.[facility] SystemIn the event this information is protected by the Federal Confidentiality of Alcohol and Drug Abuse Patient Records regulations: The Federal rules restrict any use of the information to criminally investigate or prosecute any alcohol or drug abuse patient.[facility] SystemIn the event this information is protected by the Federal Confidentiality of Alcohol and Drug Abuse Patient Records regulations: The Federal rules restrict any use of the information to criminally investigate or prosecute any alcohol or drug abuse patient.[facility] SystemIn the event this information is protected by the Federal Confidentiality of Alcohol and Drug Abuse Patient Records regulations: The Federal rules restrict any use of the information to criminally investigate or prosecute any alcohol or drug abuse patient.[facility] SystemIn the event this information is protected by the Federal Confidentiality of Alcohol and Drug Abuse Patient Records regulations: The Federal rules restrict any use of the information to criminally investigate or prosecute any alcohol or drug abuse patient.[facility] SystemIn the event this information is protected by the Federal Confidentiality of Alcohol and Drug Abuse Patient Records regulations: The Federal rules restrict any use of the information to criminally investigate or prosecute any alcohol or drug abuse patient.[facility] SystemIn the event this information is protected by the Federal Confidentiality of Alcohol and Drug Abuse Patient Records regulations: The Federal rules restrict any use of the information to criminally investigate or prosecute any alcohol or drug abuse patient.[facility] SystemIn the event this information is protected by the Federal Confidentiality of Alcohol and Drug Abuse Patient Records regulations: The Federal rules restrict any use of the information to criminally investigate or prosecute any alcohol or drug abuse patient.[facility] SystemIn the event this information is protected by the Federal Confidentiality of Alcohol and Drug Abuse Patient Records regulations: The Federal rules restrict any use of the information to criminally investigate or prosecute any alcohol or drug abuse patient.[facility] SystemIn the event this information is protected by the Federal Confidentiality of Alcohol and Drug Abuse Patient Records regulations: The Federal rules restrict any use of the information to criminally investigate or prosecute any alcohol or drug abuse patient.[facility] SystemIn the event this information is protected by the Federal Confidentiality of Alcohol and Drug Abuse Patient Records regulations: The Federal rules restrict any use of the information to criminally investigate or prosecute any alcohol or drug abuse patient.[facility] SystemIn the event this information is protected by the Federal Confidentiality of Alcohol and Drug Abuse Patient Records regulations: The Federal rules restrict any use of the information to criminally investigate or prosecute any alcohol or drug abuse patient.[facility] SystemIn the event this information is protected by the Federal Confidentiality of Alcohol and Drug Abuse Patient Records regulations: The Federal rules restrict any use of the information to criminally investigate or prosecute any alcohol or drug abuse patient.[facility] SystemIn the event this information is protected by the Federal Confidentiality of Alcohol and Drug Abuse Patient Records regulations: The Federal rules restrict any use of the information to criminally investigate or prosecute any alcohol or drug abuse patient.[facility] SystemIn the event this information is protected by the Federal Confidentiality of Alcohol and Drug Abuse Patient Records regulations: The Federal rules restrict any use of the information to criminally investigate or prosecute any alcohol or drug abuse patient.[facility] SystemIn the event this information is protected by the Federal Confidentiality of Alcohol and Drug Abuse Patient Records regulations: The Federal rules restrict any use of the information to criminally investigate or prosecute any alcohol or drug abuse patient.[facility] SystemIn the event this information is protected by the Federal Confidentiality of Alcohol and Drug Abuse Patient Records regulations: The Federal rules restrict any use of the information to criminally investigate or prosecute any alcohol or drug abuse patient.[facility] SystemIn the event this information is protected by the Federal Confidentiality of Alcohol and Drug Abuse Patient Records regulations: The Federal rules restrict any use of the information to criminally investigate or prosecute any alcohol or drug abuse patient.[facility] SystemIn the event this information is protected by the Federal Confidentiality of Alcohol and Drug Abuse Patient Records regulations: The Federal rules restrict any use of the information to criminally investigate or prosecute any alcohol or drug abuse patient.[facility] SystemIn the event this information is protected by the Federal Confidentiality of Alcohol and Drug Abuse Patient Records regulations: The Federal rules restrict any use of the information to criminally investigate or prosecute any alcohol or drug abuse patient.[facility] SystemIn the event this information is protected by the Federal Confidentiality of Alcohol and Drug Abuse Patient Records regulations: The Federal rules restrict any use of the information to criminally investigate or prosecute any alcohol or drug abuse patient.[facility] SystemIn the event this information is protected by the Federal Confidentiality of Alcohol and Drug Abuse Patient Records regulations: The Federal rules restrict any use of the information to criminally investigate or prosecute any alcohol or drug abuse patient.[facility] SystemIn the event this information is protected by the Federal Confidentiality of Alcohol and Drug Abuse Patient Records regulations: The Federal rules restrict any use of the information to criminally investigate or prosecute any alcohol or drug abuse patient.[facility] SystemIn the event this information is protected by the Federal Confidentiality of Alcohol and Drug Abuse Patient Records regulations: The Federal rules restrict any use of the information to criminally investigate or prosecute any alcohol or drug abuse patient.[facility] SystemIn the event this information is protected by the Federal Confidentiality of Alcohol and Drug Abuse Patient Records regulations: The Federal rules restrict any use of the information to criminally investigate or prosecute any alcohol or drug abuse patient.[facility] SystemIn the event this information is protected by the Federal Confidentiality of Alcohol and Drug Abuse Patient Records regulations: The Federal rules restrict any use of the information to criminally investigate or prosecute any alcohol or drug abuse patient.[facility] SystemIn the event this information is protected by the Federal Confidentiality of Alcohol and Drug Abuse Patient Records regulations: The Federal rules restrict any use of the information to criminally investigate or prosecute any alcohol or drug abuse patient.[facility] SystemIn the event this information is protected by the Federal Confidentiality of Alcohol and Drug Abuse Patient Records regulations: The Federal rules restrict any use of the information to criminally investigate or prosecute any alcohol or drug abuse patient.[facility] SystemIn the event this information is protected by the Federal Confidentiality of Alcohol and Drug Abuse Patient Records regulations: The Federal rules restrict any use of the information to criminally investigate or prosecute any alcohol or drug abuse patient.[facility] SystemIn the event this information is protected by the Federal Confidentiality of Alcohol and Drug Abuse Patient Records regulations: The Federal rules restrict any use of the information to criminally investigate or prosecute any alcohol or drug abuse patient.[facility] SystemIn the event this information is protected by the Federal Confidentiality of Alcohol and Drug Abuse Patient Records regulations: The Federal rules restrict any use of the information to criminally investigate or prosecute any alcohol or drug abuse patient.[facility] SystemIn the event this information is protected by the Federal Confidentiality of Alcohol and Drug Abuse Patient Records regulations: The Federal rules restrict any use of the information to criminally investigate or prosecute any alcohol or drug abuse patient.[facility] SystemIn the event this information is protected by the Federal Confidentiality of Alcohol and Drug Abuse Patient Records regulations: The Federal rules restrict any use of the information to criminally investigate or prosecute any alcohol or drug abuse patient.[facility] SystemIn the event this information is protected by the Federal Confidentiality of Alcohol and Drug Abuse Patient Records regulations: The Federal rules restrict any use of the information to criminally investigate or prosecute any alcohol or drug abuse patient.[facility] SystemIn the event this information is protected by the Federal Confidentiality of Alcohol and Drug Abuse Patient Records regulations: The Federal rules restrict any use of the information to criminally investigate or prosecute any alcohol or drug abuse patient.[facility] SystemIn the event this information is protected by the Federal Confidentiality of Alcohol and Drug Abuse Patient Records regulations: The Federal rules restrict any use of the information to criminally investigate or prosecute any alcohol or drug abuse patient.[facility] SystemIn the event this information is protected by the Federal Confidentiality of Alcohol and Drug Abuse Patient Records regulations: The Federal rules restrict any use of the information to criminally investigate or prosecute any alcohol or drug abuse patient.[facility] SystemIn the event this information is protected by the Federal Confidentiality of Alcohol and Drug Abuse Patient Records regulations: The Federal rules restrict any use of the information to criminally investigate or prosecute any alcohol or drug abuse patient.[facility] SystemIn the event this information is protected by the Federal Confidentiality of Alcohol and Drug Abuse Patient Records regulations: The Federal rules restrict any use of the information to criminally investigate or prosecute any alcohol or drug abuse patient.[facility] SystemIn the event this information is protected by the Federal Confidentiality of Alcohol and Drug Abuse Patient Records regulations: The Federal rules restrict any use of the information to criminally investigate or prosecute any alcohol or drug abuse patient.[facility] SystemIn the event this information is protected by the Federal Confidentiality of Alcohol and Drug Abuse Patient Records regulations: The Federal rules restrict any use of the information to criminally investigate or prosecute any alcohol or drug abuse patient.[facility] SystemIn the event this information is protected by the Federal Confidentiality of Alcohol and Drug Abuse Patient Records regulations: The Federal rules restrict any use of the information to criminally investigate or prosecute any alcohol or drug abuse patient.[facility] SystemIn the event this information is protected by [...] or prosecute any alcohol or drug abuse patient.[facility] SystemIn the event this information is protected by the Federal Confidentiality of Alcohol and Drug Abuse Patient Records regulations: The Federal rules restrict any use of the information to criminally investigate or prosecute any alcohol or drug abuse patient.[facility] SystemIn the event this information is protected by the Federal Confidentiality of Alcohol and Drug Abuse Patient Records regulations: The Federal rules restrict any use of the information to criminally investigate or prosecute any alcohol or drug abuse patient.[facility]In the event this information is protected by the Federal Confidentiality of Alcohol and Drug Abuse Patient Records regulations: The Federal rules restrict any use of the information to criminally investigate or prosecute any alcohol or drug abuse patient.[facility] SystemIn the event this information is protected by the Federal Confidentiality of Alcohol and Drug Abuse Patient Records regulations: The Federal rules restrict any use of the information to criminally investigate or prosecute any alcohol or drug abuse patient.[facility] SystemIn the event this information is protected by the Federal Confidentiality of Alcohol and Drug Abuse Patient Records regulations: The Federal rules restrict any use of the information to criminally investigate or prosecute any alcohol or drug abuse patient.[facility] SystemIn the event this information is protected by the Federal Confidentiality of Alcohol and Drug Abuse Patient Records regulations: The Federal rules restrict any use of the information to criminally investigate or prosecute any alcohol or drug abuse patient.[facility] SystemIn the event this information is protected by the Federal Confidentiality of Alcohol and Drug Abuse Patient Records regulations: The Federal rules restrict any use of the information to criminally investigate or prosecute any alcohol or drug abuse patient.[facility] SystemIn the event this information is protected by the Federal Confidentiality of Alcohol and Drug Abuse Patient Records regulations: The Federal rules restrict any use of the information to criminally investigate or prosecute any alcohol or drug abuse patient.[facility] SystemIn the event this information is protected by the Federal Confidentiality of Alcohol and Drug Abuse Patient Records regulations: The Federal rules restrict any use of the information to criminally investigate or prosecute any alcohol or drug abuse patient.[facility] SystemIn the event this information is protected by the Federal Confidentiality of Alcohol and Drug Abuse Patient Records regulations: The Federal rules restrict any use of the information to criminally investigate or prosecute any alcohol or drug abuse patient.[facility] SystemIn the event this information is protected by the Federal Confidentiality of Alcohol and Drug Abuse Patient Records regulations: The Federal rules restrict any use of the information to criminally investigate or prosecute any alcohol or drug abuse patient.[facility] Reason for Visit (unrecogniz ed section and content) Reason Comments Orders Reason Comments Follow Up 3 months Reason [...] OFFICE/OUTPATIENT NEW HIGH MDM 60-74 MINUTES Jeff Simeon L, [address] [place] [address] Referral ID Status Reason Start Date Expiration Date V isits Requested Visits Authorized [id number] Closed PCP Requested Referral 03/21/2022 03/21/2023 1 1 Reason Comments Consult Reason Comments Surgical Follow Up Lap carter post op Specialty Diagnoses / Procedures Referred By Contac t Referred To Contact General Surgery / GENERAL SURGERY Diagnoses post op lap carter, wanted sooner appt Procedures OFFICE/OUTPATIENT ESTABLISHED HIGH MDM 40-54 MIN EST DDI PATIENT Nguyen Campos PA-C [address] [place] [address] Nguyen Campos PA-C [address] [place] [address] Referral ID Status Reason Start Date Expiration Date Visits Re quested Visits Authorized [id number] Closed 04/10/2022 02/11/2023 1 1 Reason Comments Post Op Follow Up 04/10/22 LAP CARTER Reason Onset Date Comments Transition Of Care 03/15/2023 TCM Initial O utreach: [facility] [place] 03/11/23, RLQ abdominal pain Reason Comments Hospital F/U Colon cancer Reason Comments Lab Orders Reason Comments Ear Problem Ear congestion x 1 w kake Reason Onset Date Comments Refill Request 07/18/2023 Reason Comments Orders Reason Comments Patient Update Reason Onset Date Comments Refill Request 10/16/2023 Reason Comments Hospital F/U Colitis, hx of colon cancer Edema Cliff feet and leg swe lling Reason Comments Patient Update Medication Request Reason Onset Date Comments Refill Request 11/12/2023 Reason Comments contact outside provider Reason Comments Follow Up 3 month Reason Comments call Dr. Singh's office Reason Comments F/U 3 Month DM follow up Reason Comments B12 injections Reason Comments F/U 3 Month Reason Onset Date Comments Results 2024 Reason Onset Date Comments Refill Request 07/11/2024 Reason Onset Date Comments Results 05/28/2024 Reason Onset Date Comments Refill Request 09/15/2024 Care Teams (unrecognized sec tion and content) Senior Ruby Developer Relationship Specialty Start Date End Date Jeff Simeon DO [address] [place] [address] PCP - General Family Practice 09/28/15 Senior Ruby Developer Relationship Specialty Start Date End Date Jeff Simeon DO [address] [place] [address] PCP - General Family Practice 09/28/15 Senior Ruby Developer Relationship Specialty Start Date End Date Jeff Simeon DO [address] [place] [address] PCP - General Family Practice 09/28/15 Senior Ruby Developer Relationship Specialty Start Date End Date Jeff Simeon DO [address] [place] [address] PCP - General Family Practice 09/28/15 Senior Ruby Developer Relationship Specialty Start Date End Date Jeff Simeon, DO [address] [place] [address] PCP - General Family Practice 09/28/15 Senior Ruby Developer Relationship Specialty Start Date End Date Jeff Simeon, DO [address] [place] [address] PCP - General Family Practice 09/28/15 Senior Ruby Developer Relationship Specialty Start Date End Date Jeff Simeon, DO [address] [place] [address] PCP - General Family Practice 09/28/15 Senior Ruby Developer Relationship Specialty Start Date End Date Jeff Simeon, DO [address] [place] [address] PCP - General Family Practice 09/28/15 Senior Ruby Developer Relationship Specialty Start Date End Date Jeff Simeon, DO [address] [place] [address] PCP - General Family Medicine 09/28/15 Senior Ruby Developer Relationship Specialty Start Date End Date Jeff Simeon, DO [address] [place] [address] PCP - General Family Medicine 09/28/15 Senior Ruby Developer Relationship Specialty Start Date End Date Jeff Simeon, DO [address] [place] [address] PCP - General Family Medicine 09/28/15 Senior Ruby Developer Relationship Specialty Start Date End Date Jeff Simeon, DO [address] [place] [address] PCP - General Family Medicine 09/28/15 Senior Ruby Developer Relationship Specialty Start Date End Date Jeff Simeon, DO [address] [place] [address] PCP - General Family Medicine 09/28/15 Senior Ruby Developer Relationship Specialty Start Date End Date Jeff Simeon, DO [address] [place] [address] PCP - General Family Medicine 09/28/15 Senior Ruby Developer Relationship Specialty Start Date End Date Jeff Simeon, DO [address] [place] [address] PCP - General Family Medicine 09/28/15 Senior Ruby Developer Relationship Specialty Start Date End Date Jeff Simeon, DO [address] [place] [address] PCP - General Family Medicine 09/28/15 Senior Ruby Developer Relationship Specialty Start Date End Date Jeff Simeon DO [address] [place] [address] PCP - General Family Medicine 09/28/15 Senior Ruby Developer Relationship Specialty Start Date End Date Jeff Simeon DO [address] [place] [address] PCP - General Family Medicine 09/28/15 Team Status: Active Member Role Status Dates Dr. Jeff Simeon DO Family Provider Active Dr. Jeff Simeon DO Primary Care Provider Active Team Status: Inactive Member Role Status Dates Dr. Jeff Simeon DO Primary Care Pr ovider, Attending Provider, Referring Provider Active Senior Ruby Developer Relationship Specialty Start Date End Date Jeff Simeon DO [address] [place] [address] PCP - General Family Medicine 09/28/15 Senior Ruby Developer Relationship Specialty Start Date End Date Jeff Simeon DO [address] [place] [address] PCP - General Family Medicine 09/28/15 Senior Ruby Developer Relationship Specialty Start Date End Date Jeff Simeon DO [address] [place] [address] PCP - General Family Medicine 09/28/15 Senior Ruby Developer Relationship Specialty Start Date End Date Jeff Simeon DO [address] [facility] [place] [address] PCP - General Family Medicine 09/28/15 Senior Ruby Developer Relationship Specialty Start Date End Date Jeff Simeon DO [address] [place] [address] PCP - General Family Medicine 09/28/15 Senior Ruby Developer Relationship Specialty Start Date End Date Jeff Simeon DO [address] [place] [address] PCP - General Family Medicine 09/28/15 Senior Ruby Developer Relationship Specialty Start Date End Date Jeff Simeon DO [address] [place] [address] PCP - General Family Medicine 09/28/15 Senior Ruby Developer Relationship Specialty Start Date End Date Jeff Simeon DO [address] [place] [address] PCP - General Family Medicine 09/28/15 Senior Ruby Developer Relationship Specialty Start Date End Date Jeff Simeon DO [address] [place] [address] PCP - General Family Medicine 09/28/15 Team Status: Active Member Role Status Dates Dr. Jeff Simeon , DO Primary Care Provider Active Dr. Stas Arredondo , DO Emergency Provider Active Dr. Santosh Ballard MD Attending Provider Active Team Status: Active Member Role Status Dates Dr. Jeff Simeon , DO Primary Care Provider Active Dr. Stas Arredondo , DO Emergency Provider Active Dr. Santosh Ballard MD Admit Provider, Attending Provi carl Active Team Status: Active Member Role Status Dates Dr. Jeff Simeon , DO Primary Care Provider Active Dr. Stas Arredondo , DO Emergency Provider Active Dr. Santosh Ballard MD Admit Provider, A ttending Provider, Other Provider Active Dr. Nohelia aLzar MD Other Provider Active Dr. King Carroll , DO Other Provider Active Dr. Rafia Rousseau MD Other Provider Active Dr. Rafia Marroquin MD Other Provider Active Dr. Emma Dubois MD Other Provider Active Dr. Marisel Castellon MD Other Provider Active Dr. Sheri Rooney , DO Other Provider Active Dr. Venu Erazo , DO Other Provider Active Dr. Venu Cuevas MD Other Provider Active Felipe Walters MD Other Provider Active Dr. Stas Shelley , DO Other Provider Active Dr. Marily Guajardo MD Other Provider Active Dr. Maco Richardson MD Other Provider Active Dr. Joey Myers MD Other Provider Active Dr. Petros Espinoza , DO Other Provider Active Dr. Barbara Man , DO Other Provider Active Dr. Leno Sun , DO Other Provider Active Dr. Zuri Peterson MD Other Provider Active Dr. Francois Putnam MD Other Provider Active Dr. Canelo Fletcher MD Other Provider Active Dr. Mary Cotter MD Other Provider Active Dr. Casey Gupta MD Other Provider Active Ruth Ann Lynn GRAIN DRIER OPERATOR, GRAIN DRIER OPERATOR-C Other Provider Active Ramses REDDY Other Provider Active Dr. Jameson Snell MD Other Provider Active Nguyen Sloan PA, PA-C Active Team Status: Active Member Role Status Dates Dr. Jeff Simeon , DO Primary Care Provider Active Dr. Stas Arredondo , DO Emergency Provider Active Dr. Santosh Ballard MD Admit Provider, R eferring Provider, Other Provider Active Dr. Nohelia Lazar MD Other Provider Active Dr. King Carroll , DO Other Provider Active Dr. Rafia Rousseau MD Other Provider Active Dr. Rafia Marroquin MD Other Provider Active Dr. Emma Dubois MD Other Provider Active Dr. Marisel Castellon MD Other Provider Active Dr. Sheri Rooney , DO Other Provider Active Dr. Venu Erazo , DO Other Provider Active Dr. Venu Cuevas MD Other Provider Active Felipe Walters MD Other Provider Active Dr. Stas Shelley , DO Other Provider Active Dr. Marily Guajardo MD Other Provider Active Dr. Maco Richardson MD Other Provider Active Dr. Joey Myers MD Other Provider Active Dr. Petros Espinoza , DO Other Provider Active Dr. Barbara Man , DO Other Provider Active Dr. Leno Sun , DO Other Provider Active Dr. Zuri Peterson MD Other Provider Active Dr. Francois Putnam MD Other Provider Active Dr. Canelo Fletcher MD Other Provider Active Dr. Mary Cotter MD Other Provider Active Dr. Casey Gupta MD Other Provider Active Ruth Ann Lynn GRAIN DRIER OPERATOR, GRAIN DRIER OPERATOR-C Other Provider Active Ramses REDDY Other Provider Active Dr. Jameson Snell MD Attending Provider, Other Provi carl Active Team Status: Active Member Role Status Dates Dr. Jeff Simeon , DO Primary Care Provider Active Dr. Stas Arredondo , DO Emergency Provider Active Dr. Santosh Ballard MD Admit Provider, A ttending Provider, Other Provider Active Dr. Nohelia Lazar MD Other Provider Active Dr. King Carroll , DO Other Provider Active Dr. Rafia Rousseau MD Other Provider Active Dr. Rafia Marroquin MD Other Provider Active Dr. Emma Dubois MD Other Provider Active Dr. Marisel Castellon MD Other Provider Active Dr. Sheri Rooney , DO Other Provider Active Dr. Venu Erazo , DO Other Provider Active Dr. Venu Cuevas MD Other Provider Active Felipe Walters MD Other Provider Active Dr. Stas Shelley , DO Other Provider Active Dr. Marily Guajardo MD Other Provider Active Dr. Maco Richardson MD Other Provider Active Dr. Joey Myers MD Other Provider Active Dr. Petros Espinoza , DO Other Provider Active Dr. Barbara Man , DO Other Provider Active Dr. Leno Sun , DO Other Provider Active Dr. Zuri Peterson MD Other Provider Active Dr. Francois Putnam MD Other Provider Active Dr. Canelo Fletcher MD Other Provider Active Dr. Mary Cotter MD Other Provider Active Dr. Casey Gupta MD Other Provider Active Ruth Ann Lynn GRAIN DRIER OPERATOR, GRAIN DRIER OPERATOR-C Other Provider Active Ramses Victoria PA Other Provider Active Dr. Jameson Snell MD Other Provider Active Team Status: Active Member Role Status Dates Dr. Jeff Simeon , DO Primary Care Provider Active Dr. Stas Arredondo , DO Emergency Provider Active Dr. Santosh Ballard MD Admit Provider, Other Provider Active Dr. Nohelia Lazar MD Other Provider Active Dr. King Carroll , DO Other Provider Active Dr. Rafia Rousseau MD Other Provider Active Dr. Rafia Marroquin MD Other Provider Active Dr. Emma Dubois MD Other Provider Active Dr. Marisel Castellon MD Other Provider Active Dr. Sheri Rooney , DO Other Provider Active Dr. Venu Erazo , DO Other Provider Active Dr. Venu Cuevas MD Other Provider Active Felipe Walters MD Other Provider Active Dr. Stas Shelley , DO Other Provider Active Dr. Marily Guajardo MD Other Provider Active Dr. Maco Richardson MD Other Provider Active Dr. Joey Myers MD Other Provider Active Dr. Petros Espinoza , DO Other Provider Active Dr. Barbara Man , DO Other Provider Active Dr. Leno Sun , DO Other Provider Active Dr. Zuri Peterson MD Other Provider Active Dr. Francois Putnam MD Other Provider Active Dr. Canelo Fletcher MD Other Provider Active Dr. Mary Cotter MD Other Provider Active Dr. Casey Gupta MD Other Provider Active Ruth Ann Lynn GRAIN DRIER OPERATOR, GRAIN DRIER OPERATOR-C Other Provider Active Ramses Victoria PA Other Provider Active Dr. Jameson Snell MD Attending Provider, Other Provi carl Active Team Status: Active Member Role Status Dates Dr. Jeff Simeon , DO Primary Care Provider Active Dr. Stas Arredondo , DO Emergency Provider Active Dr. Santosh Ballard MD Admit Provider, Other Provider Active Dr. Nohelia Lazar MD Other Provider Active Dr. King Carroll , DO Other Provider Active Dr. Rafia Rousseau MD Other Provider Active Dr. Rafia Marroquin MD Other Provider Active Dr. Emma Dubois MD Other Provider Active Dr. Marisel Castellon MD Other Provider Active Dr. Sheri Rooney , DO Other Provider Active Dr. Venu Erazo , DO Other Provider Active Dr. Venu Cuevas MD Other Provider Active Felipe Walters MD Other Provider Active Dr. Stas Shelley , DO Other Provider Active Dr. Marily Guajardo MD Other Provider Active Dr. Maco Richardson MD Other Provider Active Dr. Joey Myers MD Other Provider Active Dr. Petros Espinoza , DO Other Provider Active Dr. Barbara Man , DO Other Provider Active Dr. Leno Sun , DO Other Provider Active Dr. Zuri Peterson MD Other Provider Active Dr. Francois Putnam MD Other Provider Active Dr. Canelo Fletcher MD Other Provider Active Dr. Mary Cotter MD Other Provider Active Dr. Casey Gupta MD Other Provider Active Ruth Ann Lynn GRAIN DRIER OPERATOR, GRAIN DRIER OPERATOR-C Other Provider Active Ramses REDDY Other Provider Active Dr. Jameson Snell MD Other Provider Active Nguyen Sloan PA, PA-C Attending Provider Active Team Status: Active Member Role Status Dates Dr. Jeff Simeon , DO Primary Care Provider Active Dr. Stas Arredondo , DO Emergency Provider Active Dr. Santosh Ballard MD Admit Provider, Other Provider Active Dr. Nohelia Lazar MD Other Provider Active Dr. King Carroll , DO Other Provider Active Dr. Rafia Rousseau MD Other Provider Active Dr. Rafia Marroquin MD Other Provider Active Dr. Emma Dubois MD Other Provider Active Dr. Marisel Castellon MD Other Provider Active Dr. Sheri Rooney , DO Other Provider Active Dr. Venu Erazo , DO Other Provider Active Dr. Venu Cuevas MD Other Provider Active Felipe Walters MD Other Provider Active Dr. Stas Shelley , DO Other Provider Active Dr. Marily Guajardo MD Other Provider Active Dr. Maco Richardson MD Other Provider Active Dr. Joey Myers MD Other Provider Active Dr. Petros Espinoza , DO Other Provider Active Dr. Barbara Man , DO Other Provider Active Dr. Leno Sun , DO Other Provider Active Dr. Zuri Peterson MD Other Provider Active Dr. Francois Putnam MD Other Provider Active Dr. Canelo Fletcher MD Other Provider Active Dr. Mary Cotter MD Other Provider Active Dr. Casey Gupta MD Other Provider Active Ruth Ann Shane GRAIN DRIER OPERATOR, GRAIN DRIER OPERATOR-C Other Provider Active Ramses REDDY Other Provider Active Dr. Jameson Snell MD Other Provider Active Dr. Richard Mckenzie MD Attending Provider Active Team Status: Inactive Member Role Status Dates Dr. Jeff Simeon , DO Primary Care Provider Active Dr. Stas Arredondo , DO Emergency Provider Active Dr. Santosh Ballard MD Admit Provider, Attending Provi carl Active Dr. Nohelia Lazar MD Other Provider Active Dr. King Carroll , DO Other Provider Active Dr. Rafia Rousseau MD Other Provider Active Dr. Rafia Marroquin MD Other Provider Active Dr. Emma Dubois MD Other Provider Active Dr. Marisel Castellon MD Other Provider Active Dr. Sheri Rooney , DO Other Provider Active Dr. Venu Erazo , DO Other Provider Active Dr. Venu Cuevas MD Other Provider Active Felipe Walters MD Other Provider Active Dr. Stas Shelley , DO Other Provider Active Dr. Marily Guajardo MD Other Provider Active Dr. Maco Richardson MD Other Provider Active Dr. Joey Myers MD Other Provider Active Dr. Petros Espinoza , DO Other Provider Active Dr. Barbara Man , DO Other Provider Active Dr. Leno Sun , DO Other Provider Active Dr. Zuri Peterson MD Other Provider Active Dr. Francois Putnam MD Other Provider Active Dr. Canelo Fletcher MD Other Provider Active Dr. Mary Cotter MD Other Provider Active Dr. Casey Gupta MD Other Provider Active Ruth Ann Lynn GRAIN DRIER OPERATOR, GRAIN DRIER OPERATOR-C Other Provider Active Ramses REDDY Other Provider Active Dr. Jameson Snell MD Other Provider Active Senior Ruby Developer Relationship Specialty Start Date End Date Jeff Simeon DO [address] [place] [place], [place] [id number] PCP - General Family Medicine 09/28/15 Tiffany Lang, ROBERT [address] [place] [address] Primary Care Bsw 03/15/23 Senior Ruby Developer Relationship Specialty Start Date End Date Jeff Simeon DO [address] [place], [place] [address] PCP - General Family Medicine 09/28/15 Tiffany Lang, ROBERT [address] [place] [id number] Primary Care Bsw 03/15/23 Senior Ruby Developer Relationship Specialty Start Date End Date Jeff Simeon DO [address] [facility] [address] PCP - General Family Medicine 09/28/15 Tiffany Lang, ROBERT [address] [place] [address] Primary Care Bsw 03/15/23 Senior Ruby Developer Relationship Specialty Start Date End Date Jeff Simeon DO [address] [place] [address] PCP - General Family Medicine 09/28/15 Tiffany Lang RN [address] [place] [phone] Primary Care Bsw 03/15/23 Team Status: Inactive Member Role Status Dates Dr. Jeff Simeon DO Primary Care Provider, Referr ing Provider Active Dr. Santosh Ballard MD Attending Provider Active Team Status: Inactive Member Role Status Dates Dr. Jeff Simeon DO Primary Care Provider, Referr ing Provider Active Nguyen REDDY PA-C Attending Provider Active Team Status: Inactive Member Role Status Dates Dr. Jeff Simeon DO Primary Care Provider, Referr ing Provider Active Dr. Maco Singh MD Attending Provider Active Team Status: Active Member Role Status Dates Dr. Jeff Simeon DO Primary Care Provider Active Dr. Maco Singh MD Attending Provider Active Team Status: Inactive Member Role Status Dates Dr. Jeff Simeon DO Primary Care Provider Active Dr. Richard Mckenzie MD Attending Provider, Referr ing Provider Active Team Status: Active Member Role Status Dates Dr. Jeff Simeon DO Primary Care Provider Active Dr. Maco Singh MD Attending Provider, Referring Pro vider Active Team Status: Inactive Member Role Status Dates Dr. Jeff Simeon DO Primary Care Provider Active Dr. Santosh Ballard MD Attending Provider, Referring P zulema Active Team Status: Inactive Member Role Status Dates Dr. Jeff Simeon DO Primary Care Provider Active Dr. Flako Chavarria MD Attending Provider, Referring Provider Active Senior Ruby Developer Relationship Specialty Start Date End Date Jeff Simeon DO [address] [facility] [address] PCP - General Family Medicine 09/28/15 Senior Ruby Developer Relationship Specialty Start Date End Date Jeff Simeon DO [address] [place] [address] PCP - General Family Medicine 09/28/15 Senior Ruby Developer Relationship Specialty Start Date End Date Jeff Simeon DO [address] [place] [address] PCP - General Family Medicine 09/28/15 Senior Ruby Developer Relationship Specialty Start Date End Date Jeff Simeon DO [address] [place] [address] PCP - General Family Medicine 09/28/15 Senior Ruby Developer Relationship Specialty Start Date End Date Jeff Simeon DO [address] [place] [address] PCP - General Family Medicine 09/28/15 Senior Ruby Developer Relationship Specialty Start Date End Date Jeff Simeon DO [address] [place] [address] PCP - General Family Medicine 09/28/15 Senior Ruby Developer Relationship Specialty Start Date End Date Jeff Simeon DO [address] [place] [address] PCP - General Family Medicine 09/28/15 Senior Ruby Developer Relationship Specialty Start Date End Date Jeff Simeon DO [address] [place] [address] PCP - General Family Medicine 09/28/15 Senior Ruby Developer Relationship Specialty Start Date End Date Jeff Simeon DO [address] [place] [address] PCP - General Family Medicine 09/28/15 Senior Ruby Developer Relationship Specialty Start Date End Date Jeff Simeon DO [address] [facility] [place] [address] PCP - General Family Medicine 09/28/15 Senior Ruby Developer Relationship Specialty Start Date End Date Jeff Simeon DO [address] [place] [address] PCP - General Family Medicine 09/28/15 Senior Ruby Developer Relationship Specialty Start Date End Date Jeff Simeon DO [address] [place] [address] PCP - General Family Medicine 09/28/15 Senior Ruby Developer Relationship Specialty Start Date End Date Jeff Simeon DO [address] [facility] [place] [address] PCP - General Family Medicine 09/28/15 Senior Ruby Developer Relationship Specialty Start Date End Date Jeff Simeon DO [address] [place] [place] [address] PCP - General Family Medicine 09/28/15 Senior Ruby Developer Relationship Specialty Start Date End Date Jeff Simeon DO [address] [place] [address] PCP - General Family Medicine 09/28/15 Senior Ruby Developer Relationship Specialty Start Date End Date Jeff Simeon DO [address] [place] [address] PCP - General Family Medicine 09/28/15 Senior Ruby Developer Relationship Specialty Start Date End Date Jeff Simeon DO [address] [place] [address] PCP - General Family Medicine 09/28/15 Senior Ruby Developer Relationship Specialty Start Date End Date Jeff Simeon DO [address] [place] [address] PCP - General Family Medicine 09/28/15 Senior Ruby Developer Relationship Specialty Start Date End Date Jeff Simeon DO [address] [place] [address] PCP - General Family Medicine 09/28/15 Jahaira Campo, CATCHER HELPER.ELECTRICAL ENGINEERING DIRECTOR [address] [place] [address] Water Systems Engineer Family Medicine 01/20/24 Karson Woodward, CATCHER HELPER.ELECTRICAL ENGINEERING DIRECTOR [address] [place] [address] Water Systems Engineer Family Medicine 01/20/24 Senior Ruby Developer Relationship Specialty Start Date End Date Jeff Simeon DO [address] [place] [address] PCP - General Family Medicine 09/28/15 Jahaira Campo, CATCHER HELPER.ELECTRICAL ENGINEERING DIRECTOR [address] [place] [address] Water Systems Engineer Family Medicine 01/20/24 Karson Woodward, CATCHER HELPER.ELECTRICAL ENGINEERING DIRECTOR [address] [place] [address] [facility] Senior Ruby Developer Relationship Specialty Start Date End Date Jeff Simeon DO [address] [place] [address] PCP - General Family Medicine 09/28/15 Jahaira Campo, CATCHER HELPER.ELECTRICAL ENGINEERING DIRECTOR [address] [place] [address] [facility] 01/20/24 Karson Woodward, CATCHER HELPER.ELECTRICAL ENGINEERING DIRECTOR [address] [place] [address] [facility] 01/20/24 Senior Ruby Developer Relationship Specialty Start Date End Date Jeff Simeon DO [address] [place] [address] PCP - General Family Medicine 09/28/15 Jahaira Campo, CATCHER HELPER.ELECTRICAL ENGINEERING DIRECTOR [address] [place] [address] [facility] 01/20/24 Karson Woodward, CATCHER HELPER.ELECTRICAL ENGINEERING DIRECTOR [address] [place] [address] [facility] 01/20/24 Team Status: Active Member Role Status Dates Dr. Jeff Simeon DO Primary Care Provider Active Team Status: Inactive Member Role Status Dates Dr. Jeff Simeon DO Primary Care Provider Active Start: January 22, 2024 End: January 22, 2024 BARRY Pearson Attending Provider Active Start: January 22, 2024 End: January 22, 2024 BARRY Pearson Referring Provider Active Start: January 22, 2024 End: January 22, 2024 Team Status: Inactive Member Role Status Dates Dr. Jeff Simeon DO Primary Care Provider Active Start: January 24, 2024 End: January 24, 2024 Dr. Jeff Simeon DO Referring Provider Active Start: January 24, 2024 End: January 24, 2024 Dr. Maco Singh MD Attending Provider Active S tart: January 24, 2024 End: January 24, 2024 Team Status: Inactive Member Role Status Dates Dr. Jeff Simeon DO Primary Care Provider Active Start: April 17, 2024 End: April 17, 2024 Dr. Jeff Simeon DO Referring Provider Active Start: April 17, 2024 End: April 17, 2024 Dr. Maco Singh MD Attending Provider Active S tart: April 17, 2024 End: April 17, 2024 Team Status: Active Member Role Status Dates Dr. Jeff Simeon DO Primary Care Provider Active Start: April 17, 2024 Dr. Maco Singh MD Attending Provider Active S tart: April 17, 2024 Dr. Maco Singh MD Referring Provider Active S tart: April 17, 2024 Team Status: Inactive Member Role Status Dates Dr. Jeff Simeon DO Primary Care Provider Active Start: April 29, 2024 End: May 12, 2024 Dr. Maco Singh MD Attending Provider Active S tart: April 29, 2024 End: May 12, 2024 Team Status: Inactive Member Role Status Dates Dr. Jeff Simeon DO Primary Care Provider Active Start: May 06, 2024 End: May 06, 2024 Dr. Jeff Simeon DO Referring Provider Active Start: May 06, 2024 End: May 06, 2024 Dr. Jarrell Crystal DO Attending Provider Active Start: May 06, 2024 End: May 06, 2024 Senior Ruby Developer Relationship Specialty Start Date End Date Jeff Simeon DO [address] [place], [place] [address] PCP - General Family Medicine 09/28/15 Karson Woodward APRN.CNP [address] [place] [place], [place] [address] Water Systems Engineer Family Medicine 01/20/24 Senior Ruby Developer Relationship Specialty Start Date End Date Jeff Simeon DO [address] [place] [address] PCP - General Family Medicine 09/28/15 Karson Woodward, CATCHER HELPER.ELECTRICAL ENGINEERING DIRECTOR [address] [place] [address] [facility] 01/[facility]/24 Senior Ruby Developer Relationship Specialty Start Date End Date Jeff Simeon DO [address] [place] [address] PCP - General Family Medicine 09/28/15 CrissyKarson, CATCHER HELPER.ELECTRICAL ENGINEERING DIRECTOR [address] [place] [address] [facility] 01/20/24 Senior Ruby Developer Relationship Specialty Start Date End Date Jeff Simeon DO [address] [place] [address] PCP - General Family Medicine 09/28/15 CrissyKarson, CATCHER HELPER.ELECTRICAL ENGINEERING DIRECTOR [address] [place] [address] [facility] 01/20/24 Senior Ruby Developer Relationship Specialty Start Date End Date Jeff Simeon DO [address] [place] [address] PCP - General Family Medicine 09/28/15 Karson Woodward, CATCHER HELPER.ELECTRICAL ENGINEERING DIRECTOR [address] [place] [address] [facility] 01/20/24 Senior Ruby Developer Relationship Specialty Start Date End Date Jeff Simeon DO [address] [place], [place] [address] PCP - General Family Medicine 09/28/15 Karson Woodward, CATCHER HELPER.ELECTRICAL ENGINEERING DIRECTOR [address] [place], [place] [address] Water Systems Engineer Family Medicine 01/20/24 Jennyfer Webb, CATCHER HELPER.ELECTRICAL ENGINEERING DIRECTOR [address] [place], [place] [id number] [facility] 07/28/24 Team Status: Active Member Role/Relationship Status Dates Dr. Jeff Simeon DO Primary Care Provider Active Team Status: Active Member Role/Relationship Status Dates Dr. Jeff Simeon DO Primary Care Provider Active Start: October 16, 2024 Dr. Maco Singh MD Attending Provider Active S tart: October 16, 2024 Dr. Maco Singh MD Referring Provider Active S tart: October 16, 2024 Team Status: Inactive Member Role/Relationship Status Dates Dr. Jeff Simeon DO Primary Care Provider Active Start: October 23, 2024 End: October 23, 2024 Dr. Jeff Simeon DO Referring Provider Active Start: October 23, 2024 End: October 23, 2024 Dr. Maco Singh MD Attending Provider Active S tart: October 23, 2024 End: October 23, 2024 Team Status: Active Member Role/Relationship Status Dates Dr. Jeff Simeon DO Primary care physician Active Team Status: Active Member Role/Relationship Status Dates Dr. Jeff Simeon DO Primary care physician Active Start: October 16, 2024 Dr. Maco Singh MD Attending physician Active Start: October 16, 2024 Dr. Maco Singh MD Referring Provider Active S tart: October 16, 2024 Team Status: Inactive Member Role/Relationship Status Dates Dr. Jeff Simeon DO Primary care physician Active Start: October 23, 2024 End: October 23, 2024 Dr. Jeff Simeon DO Referring Provider Active Start: October 23, 2024 End: October 23, 2024 Dr. Maco Singh MD Attending physician Active Start: October 23, 2024 End: October 23, 2024 Team Status: Inactive Member Role/Relationship Status Dates Dr. Jeff Simeon DO Primary care physician Active Start: November 04, 2024 End: November 04, 2024 Dr. Jeff Simeon DO Referring Provider Active Start: November 04, 2024 End: November 04, 2024 Dr. Jarrell Cyrstal DO Attending physician Active Start: November 04, 2024 End: November 04, 2024 Goals (unrecognized section and content) Goals may be documented in a n alternate sectionGoals may be documented in an alternate sectionGoals may be documented in an alternate sectionGoals may be documented in an alternate sectionGoals may be documented in an alternate sectionGoals may be documented in an alternate section Active Administered Medications - up to 3 most recent administrations Administered Medications (un recognized section and content) Medication Order MAR Action Action Date Dose Rate Site cyanocobalamin 1,000 mcg injection 1,000 mcg, INTRAMUSCULAR, EVERY 2 WEEKS, 26 doses, First dose on Sun09/05/22 at 1130, Last dose on Sun08/21/23 at 1130 Given 03/22/2023 10:08 AM EST 1,000 mcg Deltoid, Right Given 02/22/2023 10:18 AM EST 1,000 mcg D eltoid, Right Given 02/08/2023 10:15 AM EST 1,000 mcg D eltoid, Right Active Administered Medications - up to 3 most recent administrations Medication Order MAR Action Action Date Dose Rate Site cyanocobalamin 1,000 mcg injection 1,000 mcg, INTRAMUSCULAR, EVERY 2 WEEKS, 26 doses, First dose on Sun09/05/22 at 1130, Last dose on Sun08/21/23 at 1130 Given 04/04/2023 9:45 AM EST 1,000 mcg Deltoid, Right Given 03/22/2023 10:08 AM EST 1,000 mcg D eltoid, Right Given 02/22/2023 10:18 AM EST 1,000 mcg D eltoid, Right Active Administered Medications - up to 3 most recent administrations Medication Order MAR Action Action Date Dose Rate Site cyanocobalamin 1,000 mcg injection 1,000 mcg, INTRAMUSCULAR, EVERY 2 WEEKS, 26 doses, First dose on Sun09/05/22 at 1130, Last dose on Sun08/21/23 at 1130 Given 04/16/2023 3:08 PM EST 1,000 mcg Deltoid, Right Given 04/04/2023 9:45 AM EST 1,000 mcg De ltoid, Right Given 03/22/2023 10:08 AM EST 1,000 mcg D eltoid, Right Active Administered Medications - up to 3 most recent administrations Medication Order MAR Action Action Date Dose Rate Site cyanocobalamin 1,000 mcg injection 1,000 mcg, INTRAMUSCULAR, EVERY 2 WEEKS, 26 doses, First dose on Sun09/05/22 at 1130, Last dose on Sun08/21/23 at 1130 Given 05/02/2023 9:06 AM EDT 1,000 mcg Deltoid, Right Given 04/16/2023 3:08 PM EST 1,000 mcg De ltoid, Right Given 04/04/2023 9:45 AM EST 1,000 mcg De ltoid, Right Active Administered Medications - up to 3 most recent administrations Medication Order MAR Action Action Date Dose Rate Site cyanocobalamin 1,000 mcg injection 1,000 mcg, INTRAMUSCULAR, EVERY 2 WEEKS, 26 doses, First dose on Sun09/05/22 at 1130, Last dose on Sun08/21/23 at 1130 Given 05/16/2023 9:44 AM EDT 1,000 mcg Deltoid, Right Given 05/02/2023 9:06 AM EDT 1,000 mcg De ltoid, Right Given 04/16/2023 3:08 PM EST 1,000 mcg De ltoid, Right Active Administered Medications - up to 3 most recent administrations Medication Order MAR Action Action Date Dose Rate Site cyanocobalamin 1,000 mcg injection 1,000 mcg, INTRAMUSCULAR, EVERY 2 WEEKS, 26 doses, First dose on Sun09/05/22 at 1130, Last dose on Sun08/21/23 at 1130 Given 05/30/2023 9:25 AM EDT 1,000 mcg Deltoid, Right Given 05/16/2023 9:44 AM EDT 1,000 mcg De ltoid, Right Given 05/02/2023 9:06 AM EDT 1,000 mcg De ltoid, Right FOR RECORDS PERTAINING TO PATIENTS WHO [...] BE BASED ON THE PRIMARY CLINICAL RECORDS. [facility] [employer] [facility]. provides no warranty or guarantee of the accuracy or completeness of information in this document.
--- OUTSIDE RECORDS SUMMARY | 2025-01-15 20:10 | XMS RPT_ITS | CCD ---
Author Organization [facility] Care Team Providers Care Molder Floor Name Role Phone TIFFANY RONQUILLO Admitting Unavailable [...] Dr. Zuri Peterson Other Provider Dr. Francois uPtnam Other Provider Dr. Canelo Fletcher Other Provider Dr. Mary Cotter Other Provider Dr. Casey Gupta Other Provider 1([facility])[phone] Shane PLANT ACCOUNTANT, PLANT ACCOUNTANT-C Ruth Ann Other Provider Ramses Gavin Other Provider Unavailable Dr. Jameson Snell Other Provider 1([facility])[phone] Santosh Ballard Referring Provider Dr. [...] Other Provider Dr. King Carroll Other Provider 1([facility])[phone] Dr. Rafia Rousseau Other Provider Dr. [...] Provider Dr. Casey Gupta Other Provider Shane PLANT ACCOUNTANT, PLANT ACCOUNTANT-C Ruth Ann Other Provider Ramses Gavin Other Provider Unavailable Dr. Jameson Snell Other Provider Dr. Santosh Ballard Referring Provider Dr. Jameson Snell Attending Provider Luther REDDY, PA-C Nguyen Attending Provider Dr. Richard Mckenzie Attending Provider Dr. Jeff Simeon Referring Provider Dr. Maco Singh Attending Provider Jeff Simeon DO Primary Care Provider Alber SERVICE CONSULTANT.SHUTDOWN COORDINATOR, Jahaira Palma Unavailable Crissy SERVICE CONSULTANT.SHUTDOWN COORDINATOR, Karson Unavailable Blanco BERGER, Dr. Aguilar Primary Care Provider Adriana Brito Attending Provider Adriana Brito Referring Provider Blanco BERGER, Dr. Aguilar Referring Provider Samantha KEYES, Dr. Dewey Attending Provider Samantha KEYES, Dr. Dewey Referring Provider Bonilla BERGER, Dr. Vieyra Attending Provider Jon SERVICE CONSULTANT.SHUTDOWN COORDINATOR, Jennyfer Major Unavailable Blanco BERGER, Dr. Aguilar Primary Care Provider Samantha KEYES, Dr. Dewey Attending Provider Samantha KEYES, Dr. Dewey Referring Provider Blanco BERGER, Dr. Aguilar Referring Provider Blanco BERGER, Dr. Aguilar Primary Care Physician Samantha KEYES, Dr. Dewey Attending Physician Bonilla BERGER, Dr. Vieyra Attending Physician [phone] Maco Singh Attending Unavailable Simeon, Jeff Primary [...] sources) diphenhydrAMINE Drug Allergy 05-17-19 16 Swelling [facility] Penicillins (antibiotic) (2 sources) Penicillins Drug Allergy 05-17-19 16 Shortness of Breath [facility] (20 sources) diphenhydrAMINE; Translations: [DIPHENHYDRAMINE HCL] Drug Allergy 05-17-19 16 Swelling [facility] (20 sources) Hmg-Coa Reductase Inhibitors (Statins); Translations: [WFVYETG-FUM-KBB REDUCTASE INHIBITORS] Propensity to adverse reactions to drug (disorder) 09-28-19 16 Contraindicati on-Medical Surgical [facility] (20 sources) Penicillins; Translations: [PENICILLINS] Propensity to adverse reactions to drug (disorder) 05-17-19 16 Shortness of Breath [facility] (9 sources) diphenhydrAMINE Drug Allergy 12-22-19 21 PT UNSURE OF REACTION [facility] (7 sources) Cheverly fruit; Translations: [CITRUS AND DERIVATIVES] Propensity to adverse reactions 03-07-19 Other [facility] Comment on above: PT STATES EFFECTS LI JOHN (7 sources) Beef Containing Products; Translations: [BEEF CONTAINING PRODUCTS] Propensity to adverse reactions 03-07-19 Other [facility] Comment on above: PT STATES SHUTS DOWN ORGANS; red meat (7 sources) Food Allergies: Uncoded; Translations: [Food Allergies: Uncoded] Propensity to adverse reactions 03-07-19 Vomiting [facility] Comment on above: VINEGAR (4 sources) Acetaminophen; Translations: [ACETAMINOPHEN] Drug Allergy 10-16-19 Shortness of breath [facility] (4 sources) Aspirin; Translations: [ASPIRIN] Drug Allergy 10-16-19 Shortness of breath [facility] (4 sources) Glucocorticoid Receptor Agonists; Translations: [CORTICOSTEROIDS (GLUCOCORTICOIDS)] Allergy to substance 10-16-19 Shortness of breath [facility] (1 source) Acetaminophen Drug Allergy 12-10-19 [facility] (1 source) Aspirin Drug Allergy 12-10-19 [facility] (1 source) Corticosteroids Drug allergy (disorder) 12-10-19 [facility] (1 source) diphenhydrAMINE Drug Allergy 12-10-19 [facility] (1 source) Beef Containing Products Drug allergy (disorder) 12-10-19 [facility] (1 source) Cheverly And Derivatives Drug allergy (disorder) 12-10-19 [facility] Medications Current Medications Medication Drug [...] Test Name Value Interpretation Reference Range Facility [facility] 12-23-2024 [facility] Nurse Visit (FAMPWS) ----- NGUYEN QUEEN ([id number]) 1945 F Date Time Provider Department 12/23/24 8:00 AM [place] [facility] During your visit today, we recorded the following information about you: LANI EDMOND 12/23/2024 8:05 AM Signed Patient presents for B-12 injection. Denies any problems at this time. Patient instructed on any SE of medication, verbalized understanding and agreed to proceed with treatment. Tolerated injection well. Lani dEmond LPN Allergies As of Date: 12/23/2024 Noted [...] PENICILLINS 05/17/2015 12 - Shortness of Breath ZDMRZAQ-ZSQ-AUC REDUCTASE INHIBIT*09/28/2015 15 - Contraindication-Medical Lester* Comments: [...] swelling [ (more content not included)... Normal [facility] CNOVon 12-19-2024 CNOV Office Visit (PODIWS ) ----- NGUYEN QUEEN ([id number]) 1945 F Date Time Provider Department 12/19/24 [...] (or decreased sensation in your feet) a conditioner tumbler should always cut your toenails. Be Careful [...] Go to your health care provider or conditioner tumbler to treat these conditions. Farrukh Dye 12/21/2024 [...] any me (more content not included)... Normal [facility] MRSA/SAID NASAL SCREENon MRSA+SAID SCRN Negative Normal [facility] Comment on above: Performed By: #### L 3100.2300, L500.4050, L503.6030, L504.2610, L900.0098, L100.0100 #### [facility] [address] [place], [address] Surgery Visit Reporton 12-09 Surgery Visit Report [facility] [address] [place] [address] OFFICE VISIT Date of Service: 12/09/24 MR#: [id number] Acct: [id number] Name: NGUYEN QUEEN Rep #: [id number] : 1945 Provider: Dr. Santosh kennedy MD Age/Sex: 79/F Location: [facility] Status: Signed Intake Vital Signs 10/23/24 [...] HERNIA IN ABDOMEN Chief Complaint: Possible hernia Certified Juvenile Probation Officer Required: No Is patient in pain?: No [...] Products Adverse Reaction (Verified 12/09/24 09:42) Other Cheverly And Derivatives Adverse Reaction (Verified 12/09/24 09:42) [...] regained 8 (more content not included)... Normal [facility] 11-21-2024 [facility] ----- NGUYEN QUEEN ([id number]) 1945 F Date Time Provider Department 11/21/24 9:40 AM [facility] During [facility] visit today, we recorded the [...] care of with her diabetes, hasn't seen Butt Trimmer recently. Vitamin b12 deficiency, last level in the 400s. Hasn't had labs rechecked. But does feel less fatigue than previously Will have follow up next with Dr. Singh for Oncologist on 10/23 and labs prior Next follow up in the next few months with Software Recruiter Dr. Crystal as well. She is eating [...] found. 5 yr recall. Guevara[facility] COLONOSCOPY FLX DX W/COLLJ SPEC WHEN PFRMD 02/26/2018 Colonoscopy ESOPHAGOGASTRODUODENOSCOP Y TRANSORAL DIAGNOSTIC 08/31/2003 Unremarkable, negative biopsies. [facility] ESOPHAGOGASTRODUODENOSCOP Y TRANSORAL DIAGNOSTIC 02/26/2018 EGD LAPAROSCOPIC CHOLECYSTECTOMY 04/05/2022 REMV CATARACT EXTRACAP,INSERT LENS Bilateral TONSILLECTOMY HX SOCIAL HISTORY[1] FAMILY HISTORY Adopted: Yes Allergies: ALLERGIES Allergen Reactions Benadryl [Diphenhyd* Swelling Penicillins Shortness of Breath Vneofid-Inw-Dsd Red* Contraindication-Medical Surgical History of liver failure [...] a week. (more content not included)... [facility] NGUY[facility] QUE[facility] ([id number]) 1945 F Date Time Provider Department 11/21/24 JEFF SIMEON During your visit today, we recorded the following information about you: Astrid Larios, RN 11/21/2024 3:36 PM Signed Fátima Lopez calling from [facility]. States patient entered their office today [...] of this time. Please call Fátima back [facility] on Sunday with an update, if possible. [phone] Jeff Simeon DO 11/21/2024 4:58 PM Signed No, I didn't say anything ruptured. I said if she is having umbilical soreness she needs to see her surgeon for opinion regarding possibility of umbilical hernia, I haven't sent a referral yet DO Ramiro Carreon Linda M, LPN 11/24/2024 10:28 AM Signed Called [facility]. Gave information provided. Nurse voices understanding.. Allergies As of Date: 11/21/2024 Noted Allergy Reaction BENADRYL (DIPHENHYDRAMINE HCL) 05/17/2015 7 - Swelling PENICILLINS 05/17/2015 12 - Shortness of Breath IOKUOTU-GRH-NHQ REDUCTASE INHIBIT*09/28/2015 15 - Contraindication-Medical Lester* Comments: History of liver failure Date Reviewed: 11/21/2024 Reviewed by: Pebbles Molina LPN - Fully Assessed Reason for Visit: Patient Question [1697] Prescriptions as of 11/24/2024 - cholestyramine light [...] [K76.0] 05/26/2022 (more content not included)... Normal [facility] 25(OH)D3 [facility] 2024 25-hydroxyvitamin D3 [Mass/Vol] 16.3 ng/mL Low 31.0-80.0 [facility] Comment on above: Order Comment: Speci men Type: BLOOD SPECIMENOrdering Facility: [facility] Address: [address] [place] [address] Result Comment: Clas sification of 25 [place] Vitamin D status: Deficiency/Insufficiency: < or = 30 ng/ml. Sufficiency/Optimal Levels: 31-80 ng/mL Toxicity: > 100 ng/mL. Test performed by chemiluminescent immunoassay. Performed By: #### 1 989-3 ####[facility] LABCLIA [id number] [facility] [place] [address] [place] CBC W Auto Differential pane l (Bld)on 11-14-2024 Basophils (Bld) [#/Vol] 0.05 10*3/uL Normal <0.11 [facility] Comment on above: Order Comment: Speci men Type: BLOOD SPECIMENOrdering Facility: [facility] Address: [address] [place] [address] Performed By: #### 5 7021-8 ####[facility] [id number] [place] [address] [place] Basophils/100 WBC (Bld) 0.7 % Normal [facility] Comment on above: Order Comment: Speci men Type: BLOOD SPECIMENOrdering Facility: [facility] Address: [address] [place] [address] Performed By: #### 5 7021-8 ####[facility] [id number] [place] [address] [place] Differential cell count method Nom (Bld) Auto Normal [facility] Comment on above: Order Comment: Speci men Type: BLOOD SPECIMENOrdering Facility: [facility] Address: [address] [place] [address] Performed By: #### 5 7021-8 ####[facility] [id number] [place] [address] [place] Eosinophils (Bld) [#/Vol] 0.30 10*3/uL Normal <0.46 [facility] Comment on above: Order Comment: Speci men Type: BLOOD SPECIMENOrdering Facility: [facility] Address: [address] [place] [address] Performed By: #### 5 7021-8 ####[facility] [id number] [place] [address] [place] Eosinophils/100 WBC (Bld) 4.4 % Normal [facility] Comment on above: Order Comment: Speci men Type: BLOOD SPECIMENOrdering Facility: [facility] Address: [address] [place] [address] Performed By: #### 5 7021-8 ####[facility] [id number] [place] [address] [place] Erythrocyte distribution width (RBC) [Ratio] 14.1 % Normal 11.5-15.0 [facility] Comment on above: Order Comment: Speci men Type: BLOOD SPECIMENOrdering Facility: [facility] Address: [address] [place] [address] Performed By: #### 5 7021-8 ####[facility] [id number] [place] [address] [place] Hematocrit (Bld) [Volume fraction] 37.2 % Normal 36.0-46.0 [facility] Comment on above: Order Comment: Speci men Type: BLOOD SPECIMENOrdering Facility: [facility] Address: [address] [place] [address] Performed By: #### 5 7021-8 ####[facility] [id number] [place] [address] [place] Hemoglobin (Bld) [Mass/Vol] 11.9 g/dL Normal 11.5-15.5 [facility] Comment on above: Order Comment: Speci men Type: BLOOD SPECIMENOrdering Facility: [facility] Address: [address] [place] [address] Performed By: #### 5 7021-8 ####[facility] [id number] [place] [address] [place] Immature granulocytes (Bld) [#/Vol] 10*3/uL Normal <0.10 [facility] Comment on above: Order Comment: Speci men Type: BLOOD SPECIMENOrdering Facility: [facility] Address: [address] [place] [address] Performed By: #### 5 7021-8 ####[facility] RICKIEBLOOMBURGNCLIA [id number] [address] Immature granulocytes/100 WBC (Bld) 0.3 % Normal [facility] Comment on above: Order Comment: Speci men Type: BLOOD SPECIMENOrdering Facility: [facility] Address: [address] [place] [address] Performed By: #### 5 7021-8 ####[facility]ERNCA [id number] [place] [address] [place] Lymphocytes (Bld) [#/Vol] 1.75 10*3/uL Normal 1.00-4.0 0 [facility] Comment on above: Order Comment: Speci men Type: BLOOD SPECIMENOrdering Facility: [facility] Address: [address] [place] [address] Performed By: #### 5 7021-8 ####[facility]ENTERNCLIA [id number] [address] STATES [facility] Lymphocytes/100 WBC (Bld) 25.7 % Normal [facility] Comment on above: Order Comment: Speci men Type: BLOOD SPECIMENOrdering Facility: [facility] Address: [address] [place] [address] Performed By: #### 5 7021-8 ####[facility]ISBURGL[facility] [id number] [place] [address] [place] MCH (RBC) [Entitic mass] 24.6 pg Low 26.0-34.0 [facility] Comment on above: Order Comment: Speci men Type: BLOOD SPECIMENOrdering Facility: [facility] Address: [address] [place] [address] Performed By: #### 5 7021-8 ####[facility] [id number] [place] [address] [place] MCHC (RBC) [Mass/Vol] 32.0 g/dL Normal 30.5-36.0 [facility] Comment on above: Order Comment: Speci men Type: BLOOD SPECIMENOrdering Facility: [facility] Address: [address] [place] [address] Performed By: #### 5 7021-8 ####[facility] [id number] [place] [address] [place] MCV (RBC) [Entitic vol] 77.0 fL Low 80.0-100.0 [facility] Comment on above: Order Comment: Speci men Type: BLOOD SPECIMENOrdering Facility: [facility] Address: [address] [place] [address] Performed By: #### 5 7021-8 ####[facility] [id number] [place] [address] [place] Monocytes (Bld) [#/Vol] 0.65 10*3/uL Normal <0.87 [facility] Comment on above: Order Comment: Speci men Type: BLOOD SPECIMENOrdering Facility: [facility] Address: [address] [place] [address] Performed By: #### 5 7021-8 ####[facility] [id number] [place] [address] [place] Monocytes/100 WBC (Bld) 9.5 % Normal [facility] Comment on above: Order Comment: Speci men Type: BLOOD SPECIMENOrdering Facility: [facility] Address: [address] [place] [address] Performed By: #### 5 7021-8 ####[facility]ENTERNCLI [id number] [place] [address] [place] Neutrophils (Bld) [#/Vol] 4.05 10*3/uL Normal 1.45-7.5 0 [facility] Comment on above: Order Comment: Speci men Type: BLOOD SPECIMENOrdering Facility: [facility] Address: [address] [place] [address] Performed By: #### 5 7021-8 ####[facility] [id number] [place] [address] [place] Neutrophils/100 WBC (Bld) 59.4 % Normal [facility] Comment on above: Order Comment: Speci men Type: BLOOD SPECIMENOrdering Facility: [facility] Address: [address] [place] [address] Performed By: #### 5 7021-8 ####[facility] [id number] [place] [address] [place] Nucleated RBC (Bld) [#/Vol] 10*3/uL Normal <0.01 [facility] Comment on above: Order Comment: Speci men Type: BLOOD SPECIMENOrdering Facility: [facility] Address: [address] [place] [address] Performed By: #### 5 7021-8 ####[facility] [id number] [place] [address] [place] Nucleated RBC/100 WBC (Bld) [Ratio] 0.0 /100 WBC Normal [facility] Comment on above: Order Comment: Speci men Type: BLOOD SPECIMENOrdering Facility: [facility] Address: [address] [place] [address] Performed By: #### 5 7021-8 ####[facility] [id number] [place] [address] [place] Platelet mean volume (Bld) [Entitic vol] 9.6 fL Normal 9.0-12.7 [facility] Comment on above: Order Comment: Speci men Type: BLOOD SPECIMENOrdering Facility: [facility] Address: [address] [place] [address] Performed By: #### 5 7021-8 ####[facility] DEVONTENCJANELLA [id number] [place] [address] [place] Platelets (Bld) [#/Vol] 312 10*3/uL Normal 150-400 [facility] Comment on above: Order Comment: Speci men Type: BLOOD SPECIMENOrdering Facility: [facility] Address: [address] [place] [address] Performed By: #### 5 7021-8 ####[facility] JANKINCLIA [id number] [place] [address] [place] RBC (Bld) [#/Vol] 4.83 10*6/uL Normal 3.90-5.20 [facility] Comment on above: Order Comment: Speci men Type: BLOOD SPECIMENOrdering Facility: [facility] Address: [address] [place] [address] Performed By: #### 5 7021-8 ####[facility] [id number] [place] [address] [place] WBC (Bld) [#/Vol] 6.82 10*3/uL Normal 3.70-11.00 [facility] Comment on above: Order Comment: Speci men Type: BLOOD SPECIMENOrdering Facility: [facility] Address: [address] [place] [address] Performed By: #### 5 7021-8 ####[facility]ENTERNCLIA [id number] [place] [address] [facility] [place] Comprehensive metabolic 2000 panelon 11-14-2024 Albumin [Mass/Vol] 3.7 g/dL Low 3.9-4.9 [facility] Comment on above: Order Comment: Speci men Type: BLOOD SPECIMENOrdering Facility: [facility] Address: [address] [place] [address] Performed By: #### 2 4323-8 ####[facility] MILLTOWNCLIA [id number] [place] [address] [place] ALP [Catalytic activity/Vol] 95 U/L Normal 34-123 [facility] Comment on above: Order Comment: Speci men Type: BLOOD SPECIMENOrdering Facility: [facility] Address: [address] [place] [address] Performed By: #### 2 4323-8 ####[facility]ENTERNCLIA [id number] [place] [address] [place] ALT [Catalytic activity/Vol] 9 U/L Normal 7-38 [facility] Comment on above: Order Comment: Speci men Type: BLOOD SPECIMENOrdering Facility: [facility] Address: [address] [place] [address] Performed By: #### 2 4323-8 ####[facility] [id number] [place] [address] [place] Anion gap [Moles/Vol] 12 mmol/L Normal 8-15 [facility] Comment on above: Order Comment: Speci men Type: BLOOD SPECIMENOrdering Facility: [facility] Address: [address] [place] [address] Performed By: #### 2 4323-8 ####[facility] [id number] [place] [address] [place] AST [Catalytic activity/Vol] 10 U/L Low 13-35 [facility] Comment on above: Order Comment: Speci men Type: BLOOD SPECIMENOrdering Facility: [facility] Address: [address] [place] [address] Performed By: #### 2 4323-8 ####[facility]ENTERNCLIA [id number] [place] [address] [place] Bilirubin [Mass/Vol] 0.3 mg/dL Normal 0.2-1.3 [facility] Comment on above: Order Comment: Speci men Type: BLOOD SPECIMENOrdering Facility: [facility] Address: [address] [place] [address] Performed By: #### 2 4323-8 ####[facility] [id number] [place] [address] [place] Calcium [Mass/Vol] 9.0 mg/dL Normal 8.5-10.2 [facility] Comment on above: Order Comment: Speci men Type: BLOOD SPECIMENOrdering Facility: [facility] Address: [address] [place] [address] Performed By: #### 2 4323-8 ####[facility] [id number] [place] [address] [place] Chloride [Moles/Vol] 111 mmol/L High 98-107 [facility] Comment on above: Order Comment: Speci men Type: BLOOD SPECIMENOrdering Facility: [facility] Address: [address] [place] [address] Performed By: #### 2 4323-8 ####[facility] [id number] [place] [address] [place] CO2 [Moles/Vol] 19 mmol/L Low 22-30 [facility] Comment on above: Order Comment: Speci men Type: BLOOD SPECIMENOrdering Facility: [facility] Address: [address] [place] [address] Performed By: #### 2 4323-8 ####[facility] [id number] [place] [address] [place] Creatinine [Mass/Vol] 0.62 mg/dL Normal 0.58-0.96 [facility] Comment on above: Order Comment: Speci men Type: BLOOD SPECIMENOrdering Facility: [facility] Address: [address] [place] [address] Performed By: #### 2 4323-8 ####[facility] [id number] [place] [address] [place] eGFRcr SerPlBld CKD-EPI 2020 92 mL/min/1.73m??? Normal >=60 [facility] Comment on above: Order Comment: Marcelina plascencia Type: BLOOD SPECIMENOrdering Facility: [facility] Address: [address] [place] [address] Result Comment: Sonya mated Glomerular Filtration Rate [...] actual GFR. Performed By: #### 2 4323-8 ####[facility] [id number] [place] [address] [place] Glucose [Mass/Vol] 137 mg/dL High 74-99 [facility] Comment on above: Order Comment: Marcelina plascencia Type: BLOOD SPECIMENOrdering Facility: [facility] Address: [address] [place] [address] Result Comment: The [place] Diabetes [employer] (ADA) provides guidance for cutoff [...] Standards of Medical Care in Diabetes 2016, [place] [employer]. Diabetes Care. 2016.39(Suppl 1). Performed By: #### 2 4323-8 ####[facility] MILLTOWNCLIA [id number] [place] [address] [place] Potassium [Moles/Vol] 4.2 mmol/L Normal 3.7-5.1 [facility] Comment on above: Order Comment: Speci men Type: BLOOD SPECIMENOrdering Facility: [facility] Address: [address] [place] [address] Performed By: #### 2 4323-8 ####[facility] MILLWNCLIA [id number] [place] [address] [place] Protein [Mass/Vol] 6.3 g/dL Normal 6.3-8.0 [facility] Comment on above: Order Comment: Speci men Type: BLOOD SPECIMENOrdering Facility: [facility] Address: [address] [place] [address] Performed By: #### 2 4323-8 ####[facility] MIAMISBURGLIA [id number] [place] [address] [place] Sodium [Moles/Vol] 142 mmol/L Normal 136-144 [facility] Comment on above: Order Comment: Speci men Type: BLOOD SPECIMENOrdering Facility: [facility] Address: [address] [place] [address] Performed By: #### 2 4323-8 ####[facility] [id number] [place] [address] [place] Urea nitrogen [Mass/Vol] 19 mg/dL Normal 7-21 [facility] Comment on above: Order Comment: Speci men Type: BLOOD SPECIMENOrdering Facility: [facility] Address: [address] [place] [address] Performed By: #### 2 4323-8 ####[facility] [id number] [place] [address] [place] HbA1c (Bld)on 11-14-2024 Average glucose Estimated from glycated hemoglobin (Bld) [Mass/Vol] 137 mg/dL Normal [facility] Comment on above: Order Comment: Marcelina plascencia Type: BLOOD SPECIMENOrdering Facility: [facility] Address: [address] [place] [address] Result Comment: eAG: (Estimated average glucose) is a calculated value from HgbA1c and is warehouse representative of the average blood glucose level in the last 2-3 month period. Performed By: #### 5 5454-3 ####[facility] LABCLIA [id number] [address] [place] HbA1c (Bld) [Mass fraction] 6.4 % High 4.3-5.6 [facility] Comment on above: Order Comment: Marcelina plascencia Type: BLOOD SPECIMENOrdering Facility: [facility] Address: [address] [place] [address] Result Comment: [place] Diabetes Association guidelines indicate that patients with HgbA1c in the range 5.7-6.4% are at increased risk for development of diabetes, and intervention by lifestyle modification may be beneficial. HgbA1c greater or equal to 6.5% is considered diagnostic of diabetes. Performed By: #### 5 5454-3 ####[facility] LABCLIA [id number] [address] OF [facility] Lipid 1996 panelon 5 Cholesterol [Mass/Vol] 148 mg/dL Normal <200 [facility] Comment on above: Order Comment: Marcelina plascencia Type: BLOOD SPECIMENOrdering Facility: [facility] Address: [address] [place] [address] Result Comment: <200 mg/dL, Desirable 200-239 mg/dL, Borderline high >239 mg/dL, High Performed By: #### 2 4331-1 ####[facility] LABCLIA [id number] [place] [id number] [place] [facility] [id number] [place] [address] [place]#### 3024-7, 3016-3 ####[facility] LABCLIA [id number] [place] [id number] [place] Cholesterol in HDL [Mass/Vol] 35 mg/dL Low >39 [facility] Comment on above: Order Comment: Speci men Type: BLOOD SPECIMENOrdering Facility: [facility] Address: [address] [place] [address] Result Comment: 40-5 9 mg/dL, Acceptable >59 mg/dL, High: Negative risk factor for coronary heart disease <40 mg/dL, Low: Positive risk factor for coronary heart disease Performed By: #### 2 4331-1 ####[facility] LABCLIA [id number] [place] [id number] [facility] [id number] [place] [address] [place]#### 3024-7, 3016-3 ####[facility] LABCLIA [id number] [place] [address] [place] Cholesterol in LDL [Mass/Vol] 82 mg/dL Normal <100 [facility] Comment on above: Order Comment: Speci men Type: BLOOD SPECIMENOrdering Facility: [facility] Address: [address] [place] [address] Result Comment: <100 mg/dL, Optimal 100-129 mg/dL, Near optimal/above optimal 130-159 mg/dL, Borderline high 160-189 mg/dL, High >189 mg/dL, Very high Secondary prevention optimal LDL Cholesterol levels are recommended to be <70 mg/dL LDL cholesterol is calculated using the Phillips-NIH equation. Performed By: #### 2 4331-1 ####[facility] LABCLIA [id number] [address] [address] [facility] [id number] [address] OF [place]#### 3024-7, 3016-3 ####[facility] LABCLIA [id number] [address] [address] [place] Cholesterol in LDL/Cholesterol in HDL [Mass ratio] 2.34 {ratio} Normal <2.54 [facility] Comment on above: Order Comment: Speci men Type: BLOOD SPECIMENOrdering Facility: [facility] Address: [address] [place] [address] Result Comment: Refe rence: 1. National Cholesterol Education Program ATP III Guideline At-A-Glance Quick Desk Reference: National Heart, Lung, and Blood [place]. National Institutes of Health. 2001: NIH Publication No. 01-3305. 2. An International Atherosclerosis Society position paper: global recommendations for the management of dyslipidemia: executive summary, Atherosclerosis. 2014: 232(2):410-413. Performed By: #### 2 4331-1 ####[facility] LABCLIA [id number] [address] [address] [place] [facility] [id number] [place] [address] [place]#### 3024-7, 6-3 ####[facility] LABCLIA [id number] [address] [address] [place] Cholesterol in VLDL [Mass/Vol] 28 mg/dL Normal <30 [facility] Comment on above: Order Comment: Speci men Type: BLOOD SPECIMENOrdering Facility: [facility] Address: [address] [place] [place] [id number] Performed By: #### 2 4331-1 ####[facility] LABCLIA [id number] [address] [place] [address] [place] [facility] [id number] [place] [address] [place]#### 3024-7, 3016-3 ####[facility] LABCLIA [id number] [address] [place] [address] [place] Cholesterol non HDL [Mass/Vol] 113 mg/dL Normal <130 [facility] Comment on above: Order Comment: Speci men Type: BLOOD SPECIMENOrdering Facility: [facility] Address: [address] [place], [place] [address] Result Comment: <130 mg/dL, Optimal 130-159 mg/dL, Near optimal/above optimal 160-189 mg/dL, Borderline high 190-219 mg/dL, High >219 mg/dL, Very high Secondary prevention optimal non HDL Cholesterol levels are recommended to be <100 mg/dL Performed By: #### 2 4331-1 ####[facility] LABCLIA [id number] [address] [place] [address] [place] [facility] [id number] [place] [address] [place]#### 3024-7, 6-3 ####[facility] LABCLIA [id number] [address], [facility] [place] Cholesterol.total/Cholest tobi in HDL [Mass ratio] 4.23 {ratio} Normal <5.10 [facility] Comment on above: Order Comment: Speci men Type: BLOOD SPECIMENOrdering Facility: [facility] Address: [address] [place], [place] [address] Performed By: #### 2 4331-1 ####[facility] LABCLIA [id number] [address] [address] [place] [facility] [id number] [place] [address] [place]#### 3024-7, 3016-3 ####[facility] LABCLIA [id number] [address] [address] [place] FASTING TIME 12 hrs Normal [facility] Comment on above: Order Comment: Speci men Type: BLOOD SPECIMENOrdering Facility: [facility] Address: [address] [place] [address] Performed By: #### 2 4331-1 ####[facility] LABCLIA [id number] [address] [address] [place] [facility] [id number] [place] [address] [place]#### 3024-7, 3016-3 ####[facility] LABCLIA [id number] [place] [address] [place] Triglyceride [Mass/Vol] 183 mg/dL High <150 [facility] Comment on above: Order Comment: Speci men Type: BLOOD SPECIMENOrdering Facility: [facility] Address: [address] [place] [address] Result Comment: <150 mg/dL, Normal 150-199 mg/dL, Borderline high 200-499 mg/dL, High >499 mg/dL, Very high Performed By: #### 2 4331-1 ####[facility] LABCLIA [id number] [place] [id number] [place] [facility] [id number] [place] [address] [place]#### 3024-7, 3016-3 ####[facility] LABCLIA [id number] [address] [address] [place] T4 Free SerPl-mCncon 11-14- 025 Free T4 [Mass/Vol] 1.4 ng/dL Normal 0.9-1.7 [facility] Comment on above: Order Comment: Speci men Type: BLOOD SPECIMENOrdering Facility: [facility] Address: [address] [place], [place] [address] Performed By: #### 2 4331-1 ####[facility] LABCLIA [id number] [place] [address] [facility] [id number] [place] [address] [place]#### 3024-7, 3016-3 ####[facility] [id number] [place] [address] [place] TSH SerPl-aCncon 11-14-2024 TSH Qn 0.133 m[IU]/L Low 0.270-4.20 0 [facility] Comment on above: Order Comment: Speci men Type: BLOOD SPECIMENOrdering Facility: [facility] Address: [address] [place] [address] Performed By: #### 2 4331-1 ####[facility] [id number] [address] [id number] [address] OF [place]#### 3024-7, 3016-3 ####[facility] LABIA [id number] [place] [id number] [facility] OF [place] Chris 11-06-2024 [facility]N [facility] ----- NGUYEN QUEEN ([id number]) 1945 F Date Time Provider Department 11/06/24 [facility] During your visit today, we recorded the [...] [place] 05/17/2015 12 - Shortness of Breath [id number] REDUCTASE INHIBIT*09/28/2015 15 - Contraindication-Medical Lester* Comments: History of liver failure Date Reviewed: 02/14/2024 Reviewed by: Karson Woodward APRN.CNP - Fully Assessed Reason for Visit: Orders [681] Primary Visit Diagnosis:Vitamin D deficiency [E55.9] Other Visit Diagnoses: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 Normal [facility] Gastroenterology Visit Repor ton 11-04-2024 Gastroenterology Visit Report [facility] Gastroenterology [address] [place] [address] OFFICE VISIT Date of Service: 11/04/24 MR#: [id number] Acct: [id number] Name: NGUYEN QUEEN Rep #: [id number] : 1945 Provider: Jarrell Crystal DO Age/Sex: 79/F Location: [facility] Status: Signed Intake Vital Signs 04/29/24 13:13 [...] M FU Chief Complaint: 8 M f/u Certified Juvenile Probation Officer Required: No Is patient in pain?: No [...] Products Adverse Reaction (Verified 11/04/24 11:30) Other [place] And Derivatives Adverse Reaction (Verified 11/04/24 11:30) [...] presents to the office today for f/u *[facility] established 4.15.24 for repeat colonoscopy after [...] endometrium cannot be accurately evaluated with CT [facility] hospitalization 9.24 - 9.5.24 abd pain - [...] and gra (more content not included)... Normal [facility] Oncology Visit Reporton 10-13 Oncology Visit Report [facility] [place] [address] OFFICE VISIT Date of Service: 10/23/24 1405 MR#: [id number] Acct: [id number] Name: NGUYEN QUEEN Rep #: [id number] : 1945 From: Maco Singh MD Age/Sex: 79/F Location: [facility] Status: Signed HPI Subjective Date of Service 10/23/24 Chief Complaint F/u for anemia. History of Present Illness 79-year-old woman presented with right lower quadrant abdominal pain to [facility]. CT of the abdomen and pelvis on [...] and comes for follow up. Feels well. [facility] Medical History Colon cancer Bilateral lower extremity [...] Products Adverse Reaction (Verified 10/23/24 14:09) Other [place] And Derivatives Adverse Reaction (Verified 10/23/24 14:09) [...] L 12.5 (more content not included)... Normal [facility] Carcinoembryonic Antigenon 0 10-17-2024 CEA 4.9 ng/mL High 0.0-4.7 [facility] Comment on above: Result Comment: Nons mokers <3.9 Smokers <5.6 [facility] Electrochemiluminescence Immunoassay (ECLIA) Values obtained with different assay methods or kits cannot be used interchangeably. Results cannot be interpreted as absolute evidence of the presence or absence of malignant disease. Performed at: [facility] [id number] Mine Manager: Flako Araujo PhD, Phone: [phone] Performed By: #### L 3100.2300, L500.4050, L503.6030, L504.2610, L900.0098, L100.0100 #### [facility] [address] [place], [address] Absolute lymphocyte countOrd ered By: Maco Singh on 10-16-2024 Lymphocytes Auto (Unsp spec) [#/Vol] 1.51 10*3/uL 0.83-4.51 [facility] Absolute neutrophil countOrd ered By: Maco Singh on 10-16-2024 Neutrophils (Bld) [#/Vol] 4.2 10*3/uL 2.0-7.7 [facility] Anion gap in Serum or Plasma Ordered By: Maco Singh on 10-16-2024 Anion gap [Moles/Vol] 12 mmol/L 5-15 [facility] Automated lymphocyte count a s percentage of total leukocytesOrdered By: Maco Nuñeznarciso on 10-16-2024 Lymphocytes/100 WBC Auto (Unsp spec) 23.2 % 19-41 [facility] BUN/creatinine ratioOrdered By: Maco Nuñeznarciso on 10-16-2024 Urea nitrogen/Creatinine [Mass ratio] 26.0 mg/mg High 10-20 [facility] Basophil percentageOrdered B y: Maco Nuñeznarciso on 10-16-2024 Basophils/100 WBC (Bld) 0.5 % 0-1 [facility] Bilirubin, totalOrdered By: Maco Nuñeznarciso on 10-16-2024 Bilirubin [Mass/Vol] 0.25 mg/dL 0.00-1.30 [facility] CBC W/Diff, Automatedon Absolute Lymph 1.51 X10 3/uL Normal 0.83-4.51 [facility] Comment on above: Performed By: #### L 3100.2300, L500.4050, L503.6030, L504.2610, L900.0098, L100.0100 #### [facility] [address] [place], [address] Absolute Neut 4.2 X10 3/uL Normal 2.0-7.7 [facility] Comment on above: Performed By: #### L 3100.2300, L500.4050, L503.6030, L504.2610, L900.0098, L100.0100 #### [facility] [address] [place], [address] Basophils/100 WBC (Bld) 0.5 % Normal 0-1 [facility] Comment on above: Performed By: #### L 3100.2300, L500.4050, L503.6030, L504.2610, L900.0098, L100.0100 #### [facility] [address] [place], [address] Eosinophils/100 WBC (Bld) 2.9 % Normal 0-5 [facility] Comment on above: Performed By: #### L 3100.2300, L500.4050, L503.6030, L504.2610, L900.0098, L100.0100 #### [facility] [address] [place], [address] Erythrocyte distribution width (RBC) [Ratio] 14.4 % Normal 11.6-14.6 [facility] Comment on above: Performed By: #### L 3100.2300, L500.4050, L503.6030, L504.2610, L900.0098, L100.0100 #### [facility] [address] [place], [address] Hematocrit (Bld) [Volume fraction] 36.4 % Low 37-47 [facility] Comment on above: Performed By: #### L 3100.2300, L500.4050, L503.6030, L504.2610, L900.0098, L100.0100 #### [facility] [address] [place], [address] Hemoglobin (Bld) [Mass/Vol] 11.2 g/dL Low 12.0-15.0 [facility] Comment on above: Performed By: #### L 3100.2300, L500.4050, L503.6030, L504.2610, L900.0098, L100.0100 #### [facility] [address] [place], [address] IG% 0.500 Normal 0.0-0.9 [facility] Comment on above: Result Comment: IG% - Immature Granulocytes (promyelocytes, myelocytes and metamyelocytes) > 1% indicates that a LEFT SHIFT is Present. Performed By: #### L 3100.2300, L500.4050, L503.6030, L504.2610, L900.0098, L100.0100 #### [facility] [address] [place], [address] Lymphocytes/100 WBC (Bld) 23.2 % Normal 19-41 [facility] Comment on above: Performed By: #### L 3100.2300, L500.4050, L503.6030, L504.2610, L900.0098, L100.0100 #### [facility] [address] [place], [address] MCH (RBC) [Entitic mass] 24.1 pg Low 27.0-32.0 [facility] Comment on above: Performed By: #### L 3100.2300, L500.4050, L503.6030, L504.2610, L900.0098, L100.0100 #### [facility] [address] [place], [address] MCHC (RBC) [Mass/Vol] 30.8 g/dL Low 32-36 [facility] Comment on above: Performed By: #### L 3100.2300, L500.4050, L503.6030, L504.2610, L900.0098, L100.0100 #### [facility] [address] [place], [address] MCV (RBC) [Entitic vol] 78.4 fL Low 81-99 [facility] Comment on above: Performed By: #### L 3100.2300, L500.4050, L503.6030, L504.2610, L900.0098, L100.0100 #### [facility] [address] [place], [address] Monocytes/100 WBC (Bld) 8.1 % Normal 0-10 [facility] Comment on above: Performed By: #### L 3100.2300, L500.4050, L503.6030, L504.2610, L900.0098, L100.0100 #### [facility] [address] [place], [address] Neutrophils/100 WBC (Bld) 64.8 % Normal 47-70 [facility] Comment on above: Performed By: #### L 3100.2300, L500.4050, L503.6030, L504.2610, L900.0098, L100.0100 #### [facility] [address] [place], [address] Nucleated RBC (Bld) [#/Vol] 0 10*3/uL Normal 0-5 [facility] Comment on above: Performed By: #### L 3100.2300, L500.4050, L503.6030, L504.2610, L900.0098, L100.0100 #### [facility] [address] [place], [address] Platelet mean volume (Bld) [Entitic vol] 9.8 fL Normal 6.2-12.0 [facility] Comment on above: Performed By: #### L 3100.2300, L500.4050, L503.6030, L504.2610, L900.0098, L100.0100 #### [facility] [address] [place], [address] Platelets (Bld) [#/Vol] 339 10*3/uL Normal 150-450 [facility] Comment on above: Performed By: #### L 3100.2300, L500.4050, L503.6030, L504.2610, L900.0098, L100.0100 #### [facility] [address] [place], [address] RBC (Bld) [#/Vol] 4.64 10*6/uL Normal 4.2-5.4 [facility] Comment on above: Performed By: #### L 3100.2300, L500.4050, L503.6030, L504.2610, L900.0098, L100.0100 #### [facility] [address] [place], [address] RDW SD 40.5 fl Normal 35.1-43.9 [facility] Comment on above: Performed By: #### L 3100.2300, L500.4050, L503.6030, L504.2610, L900.0098, L100.0100 #### [facility] [address] [place], [address] WBC (Bld) [#/Vol] 6.5 10*3/uL Normal 4.4-11.0 [facility] Comment on above: Performed By: #### L 3100.2300, L500.4050, L503.6030, L504.2610, L900.0098, L100.0100 #### [facility] [address] [place], [address] CRPon 10-16-2024 C-REACTIVE PROT < 3.00 Normal 0.0-3.0 [facility] Comment on above: Performed By: #### L 3100.2300, L500.4050, L503.6030, L504.2610, L900.0098, L100.0100 #### [facility] [address] [place], [address] Carbon dioxide, total [Moles /volume] in Central venous bloodOrdered By: Maco Singh on 10-16-2024 CO2 [Moles/Vol] 21.7 mmol/L 21.0-32.0 [facility] Chloride assayOrdered By: Sandra Singh on 10-16-2024 Chloride [Moles/Vol] 107 mmol/L 98-108 [facility] Comprehensive Metabolic Prof ilon 10-16-2024 Albumin [Mass/Vol] 3.7 g/dL Normal 3.4-4.8 [facility] Comment on above: Performed By: #### L 3100.2300, L500.4050, L503.6030, L504.2610, L900.0098, L100.0100 #### [facility] [address] [place], [address] Albumin/Globulin [Mass ratio] 1.4 {ratio} Normal 0.9-2.4 [facility] Comment on above: Performed By: #### L 3100.2300, L500.4050, L503.6030, L504.2610, L900.0098, L100.0100 #### [facility] [address] [place], [address] ALK PHOS 90 U/L Normal 35-104 [facility] Comment on above: Performed By: #### L 3100.2300, L500.4050, L503.6030, L504.2610, L900.0098, L100.0100 #### [facility] [address] [place], [address] ALT [Catalytic activity/Vol] 11 U/L Normal <=34 [facility] Comment on above: Performed By: #### L 3100.2300, L500.4050, L503.6030, L504.2610, L900.0098, L100.0100 #### [facility] [address] [place], [address] AST [Catalytic activity/Vol] 14 U/L Normal <=31 [facility] Comment on above: Performed By: #### L 3100.2300, L500.4050, L503.6030, L504.2610, L900.0098, L100.0100 #### [facility] [address] [place], [address] Bilirubin [Mass/Vol] 0.25 mg/dL Normal 0.00-1.30 [facility] Comment on above: Performed By: #### L 3100.2300, L500.4050, L503.6030, L504.2610, L900.0098, L100.0100 #### [facility] [address] [place], [address] BUN/CRE 26.0 RATIO High 10-20 [facility] Comment on above: Performed By: #### L 3100.2300, L500.4050, L503.6030, L504.2610, L900.0098, L100.0100 #### [facility] [address] [place], [address] Calcium [Mass/Vol] 9.1 mg/dL Normal 7.6-11.0 [facility] Comment on above: Performed By: #### L 3100.2300, L500.4050, L503.6030, L504.2610, L900.0098, L100.0100 #### [facility] [address] [place], [address] Chloride [Moles/Vol] 107 mmol/L Normal 98-108 [facility] Comment on above: Performed By: #### L 3100.2300, L500.4050, L503.6030, L504.2610, L900.0098, L100.0100 #### [facility] [address] [place], [address] CO2 [Moles/Vol] 21.7 mmol/L Normal 21.0-32.0 [facility] Comment on above: Performed By: #### L 3100.2300, L500.4050, L503.6030, L504.2610, L900.0098, L100.0100 #### [facility] [address] [place], [address] Creatinine [Mass/Vol] 0.61 mg/dL Low 0.70-1.20 [facility] Comment on above: Performed By: #### L 3100.2300, L500.4050, L503.6030, L504.2610, L900.0098, L100.0100 #### [facility] [address] [place], [address] ECRCL 56.72 ml/min Normal 50-250 [facility] Comment on above: Performed By: #### L 3100.2300, L500.4050, L503.6030, L504.2610, L900.0098, L100.0100 #### [facility] [address] [place], [address] GAP 12 Normal 5-15 [facility] Comment on above: Performed By: #### L 3100.2300, L500.4050, L503.6030, L504.2610, L900.0098, L100.0100 #### [facility] [address] [place], [address] GFR/1.73 sq M.predicted among non-blacks MDRD (S/P/Bld) [Vol rate/Area] 92 mL/min/{1.73_m2} Normal >60 [facility] Comment on above: Result Comment: mL/m in/1.73m2 CKD-EPI Creatinine Equation (2020) Performed By: #### L 3100.2300, L500.4050, L503.6030, L504.2610, L900.0098, L100.0100 #### [facility] [address] [place], [address] Globulin (S) [Mass/Vol] 2.6 g/dL Normal 2.2-4.2 [facility] Comment on above: Performed By: #### L 3100.2300, L500.4050, L503.6030, L504.2610, L900.0098, L100.0100 #### [facility] [address] [place], [address] Glucose [Mass/Vol] 164 mg/dL High 70-99 [facility] Comment on above: Performed By: #### L 3100.2300, L500.4050, L503.6030, L504.2610, L900.0098, L100.0100 #### [facility] [address] [place], [address] Potassium [Moles/Vol] 4.4 mmol/L Normal 3.3-5.1 [facility] Comment on above: Performed By: #### L 3100.2300, L500.4050, L503.6030, L504.2610, L900.0098, L100.0100 #### [facility] [address] [place], [address] Sodium [Moles/Vol] 141 mmol/L Normal 133-145 [facility] Comment on above: Performed By: #### L 3100.2300, L500.4050, L503.6030, L504.2610, L900.0098, L100.0100 #### [facility] [address] [place], [address] T PROT 6.3 g/dL Normal 5.9-8.4 [facility] Comment on above: Performed By: #### L 3100.2300, L500.4050, L503.6030, L504.2610, L900.0098, L100.0100 #### [facility] [address] [place], [address] Urea nitrogen [Mass/Vol] 16 mg/dL Normal 4-19 [facility] Comment on above: Performed By: #### L 3100.2300, L500.4050, L503.6030, L504.2610, L900.0098, L100.0100 #### [facility] [address] [place], [address] Eosinophil percentageOrdered By: Maco Singh on 10-16-2024 Eosinophils/100 WBC (Bld) 2.9 % 0-5 [facility] Erythrocyte Sed Rateon 10-16 SED RATE 20 mm/hr Normal 0-30 [facility] Comment on above: Performed By: #### L 3100.2300, L500.4050, L503.6030, L504.2610, L900.0098, L100.0100 #### [facility] [address] [place], [address] Erythrocyte distribution wid th ratioOrdered By: Maco Singh on 10-16-2024 Erythrocyte distribution width (RBC) [Ratio] 14.4 % 11.6-14.6 [facility] Erythrocyte distribution wid th standard deviationOrdered By: Maco Singh on 10-16-2024 Erythrocyte distribution width (RBC) [Ratio] 40.5 fl 35.1-43.9 [facility] Erythrocyte sedimentation ra teOrdered By: Maco Singh on 10-16-2024 ESR (Bld) [Velocity] 20 mm/h 0-30 [facility] Ferritinon 10-16-2024 Ferritin [Mass/Vol] 28 ng/mL Normal 22-378 [facility] Comment on above: Performed By: #### L 3100.2300, L500.4050, L503.6030, L504.2610, L900.0098, L100.0100 #### [facility] [address] [place], [address] Folate [Mass/volume] in Seru m or PlasmaOrdered By: Maco Singh on 10-16-2024 Folate [Mass/Vol] 15.80 ng/mL 4.60-34.80 [facility] Folates,Serum (Folic Acid)on 10-16-2024 FOLATES,SERUM 15.80 ng/mL Normal 4.60-34.80 [facility] Comment on above: Order Comment: 1 Performed By: #### L 3100.2300, L500.4050, L503.6030, L504.2610, L900.0098, L100.0100 #### [facility] [address] [place], [address] Glomerular filtration rate ( GFR) estimation/1.73 sq m using serum, plasma, or whole bOrdered By: Maco Singh on 10-16-2024 GFR/1.73 sq M.predicted among non-blacks MDRD (S/P/Bld) [Vol rate/Area] 92 mL/min/{1.73_m2} >60 [facility] Comment on above: mL/min/1.73m2 CKD-EP I Creatinine Equation (2020) Hematocrit Auto (Bld) [Volum e fraction]Ordered By: Maco Singh on 10-16-2024 Hematocrit (Bld) [Volume fraction] 36.4 % Low 37-47 [facility] Hemoglobin measurementOrdere d By: Maco Singh on 10-16-2024 Hemoglobin (Bld) [Mass/Vol] 11.2 g/dL Low 12.0-15.0 [facility] Immature granulocytes/100 WB C Auto (Bld)Ordered By: Maco Singh on 10-16-2024 Immature granulocytes/100 WBC (Bld) 0.500 % 0.0-0.9 [facility] Comment on above: IG% - Immature Granu locytes (promyelocytes, myelocytes and metamyelocytes) > 1% indicates that a LEFT SHIFT is Present. Iron measurement (mass/mass) Ordered By: Maco Singh on 10-16-2024 Iron (Unsp spec) [Mass/Mass] 188 ug/dL High 50-170 [facility] Iron+Iron Binding Capacityon 10-16-2024 Iron [Mass/Vol] 188 ug/dL High 50-170 [facility] Comment on above: Performed By: #### L 3100.2300, L500.4050, L503.6030, L504.2610, L900.0098, L100.0100 #### [facility] [address] [place], [place], [address] IRON SATURATION 60.0 High 13-59 [facility] Comment on above: Performed By: #### L 3100.2300, L500.4050, L503.6030, L504.2610, L900.0098, L100.0100 #### [facility] [address] [place], [address] TIBC 315 ug/dL Normal 250-450 [facility] Comment on above: Performed By: #### L 3100.2300, L500.4050, L503.6030, L504.2610, L900.0098, L100.0100 #### [facility] [address] [place], [address] UIBC 127 ug/dL Low 228-428 [facility] Comment on above: Performed By: #### L 3100.2300, L500.4050, L503.6030, L504.2610, L900.0098, L100.0100 #### [facility] [address] [place], [address] LDHon 10-16-2024 LDH 112 U/L Normal 84-246 [facility] Comment on above: Order Comment: 1 Performed By: #### L 3100.2300, L500.4050, L503.6030, L504.2610, L900.0098, L100.0100 #### [facility] [address] [place], [address] Laboratory - Chemistry and C hemistry - challengeOrdered By: Maco Singh on 10-16-2024 AST [Catalytic activity/Vol] 14 U/L <32 [facility] Lactate dehydrogenase (LDH) measurementOrdered By: Maco Singh on 10-16-2024 LDH [Catalytic activity/Vol] 112 U/L 84-246 [facility] MCV (mean corpuscular volume ) determinationOrdered By: Maco Singh on 10-16-2024 MCV (RBC) [Entitic vol] 78.4 fL Low 81-99 [facility] Mean corpuscular hemoglobin (MCH) determinationOrdered By: Maco Singh on 10-16-2024 MCH (RBC) [Entitic mass] 24.1 pg Low 27.0-32.0 [facility] Mean corpuscular hemoglobin concentration (MCHC) determinationOrdered By: Maco Singh on 10-16-2024 MCHC (RBC) [Mass/Vol] 30.8 g/dL Low 32-36 [facility] Mean platelet volume determi nationOrdered By: Maco Singh on 10-16-2024 Platelet mean volume (Bld) [Entitic vol] 9.8 fL 6.2-12.0 [facility] Monocyte percentageOrdered B y: Maco Singh on 10-16-2024 Monocytes/100 WBC (Bld) 8.1 % 0-10 [facility] Neutrophil percentageOrdered By: Maco Singh on 10-16-2024 Neutrophils/100 WBC (Bld) 64.8 % 47-70 [facility] No Panel InformationOrdered By: Maco Singh on 10-16-2024 Unsaturated Iron Binding Capacity 127 ug/dL Low 228-428 [facility] Nucleated red blood cell per centageOrdered By: Maco Singh on 10-16-2024 Nucleated RBC/100 WBC (Bld) [Ratio] 0 % 0-5 [facility] Platelet countOrdered By: Sandra Singh on 10-16-2024 Platelets (Bld) [#/Vol] 339 10*3/uL 150-450 [facility] Potassium measurement (mass/ volume)Ordered By: Maco Singh on 10-16-2024 Potassium (Unsp spec) [Mass/Vol] 4.4 mmol/L 3.3-5.1 [facility] RBC Auto (Bld) [#/Vol]Ordere d By: Maco Singh on 10-16-2024 RBC (Bld) [#/Vol] 4.64 10*6/uL 4.2-5.4 [facility] Retic Panelon 10-16-2024 IM RET FRACTION 11.70 Normal 3.00-15.90 [facility] Comment on above: Performed By: #### L 3100.2300, L500.4050, L503.6030, L504.2610, L900.0098, L100.0100 #### [facility] [address] [place], [address] RET-HE 26.8 pg Low 30-35 [facility] Comment on above: Performed By: #### L 3100.2300, L500.4050, L503.6030, L504.2610, L900.0098, L100.0100 #### [facility] [address] [place], [address] Retic Count 1.56 High 0.5-1.5 [facility] Comment on above: Performed By: #### L 3100.2300, L500.4050, L503.6030, L504.2610, L900.0098, L100.0100 #### [facility] [address] [place], [place], [address] Reticulocyte hemoglobin equi valent (RET-He) measurementOrdered By: Maco Singh on 10-16-2024 Hemoglobin (Reticulocytes) [Entitic mass] 26.8 pg Low 30-35 [facility] Reticulocytes Auto (Bld) [#/ Vol]Ordered By: Maco Singh on 10-16-2024 Reticulocytes/100 RBC (Bld) 1.56 % High 0.5-1.5 [facility] Serum creatinine measurement (mass/volume)Ordered By: Maco Singh on 10-16-2024 Creatinine [Mass/Vol] 0.61 mg/dL Low 0.70-1.20 [facility] Serum globulin measurementOr dered By: Maco Singh on 10-16-2024 Globulin (S) [Mass/Vol] 2.6 g/dL 2.2-4.2 [facility] Serum glucose measurement (m ass/volume)Ordered By: Maco Singh on 10-16-2024 Glucose [Mass/Vol] 164 mg/dL High 70-99 [facility] Serum or plasma C reactive p rotein measurement (mass/volume)Ordered By: Maco Singh on 10-16-2024 CRP [Mass/Vol] mg/L 0.0-3.0 [facility] Serum or plasma alanine cuellar otransferase (ALT) measurementOrdered By: Maco Singh on 10-16-2024 ALT [Catalytic activity/Vol] 11 U/L <35 [facility] Serum or plasma albumin pj urement (mass/volume)Ordered By: Maco Singh on 10-16-2024 Albumin [Mass/Vol] 3.7 g/dL 3.4-4.8 [facility] Serum or plasma albumin/glob ulin mass ratioOrdered By: Maco Singh on 10-16-2024 Albumin/Globulin [Mass ratio] 1.4 {ratio} 0.9-2.4 [facility] Serum or plasma alkaline miriam sphatase measurementOrdered By: Maco Singh on 10-16-2024 ALP [Catalytic activity/Vol] 90 U/L 35-104 [facility] Serum or plasma calcium pj urement (mass/volume)Ordered By: Maco Singh on 10-16-2024 Calcium [Mass/Vol] 9.1 mg/dL 7.6-11.0 [facility] Serum or plasma carcinoembry onic antigen measurement (mass/volume)Ordered By: Maco Singh on 10-16-2024 Carcinoembryonic Ag [Mass/Vol] 4.9 ng/mL High 0.0-4.7 [facility] Comment on above: Nonsmokers <3.9 Smok ers <5.6[employer] Electrochemiluminescence Immunoassay(ECLIA)Values obtained with different assay methods or kitscannot be used interchangeably. Results cannot beinterpreted as absolute evidence of the presence orabsence of malignant disease.Performed at: [facility] [id number] Director: Flako Araujo PhD, Phone: [phone] Serum or plasma ferritin nunu surement (mass/volume)Ordered By: Maco Singh on 10-16-2024 Ferritin [Mass/Vol] 28 ng/mL 22-378 [facility] Serum or plasma iron saturat ion measurement (mass fraction)Ordered By: Maco Singh on 10-16-2024 Iron saturation [Mass fraction] 60.0 % High 13-59 [facility] Serum or plasma urea nitroge n measurement (mass/volume)Ordered By: Maco Singh on 10-16-2024 Urea nitrogen [Mass/Vol] 16 mg/dL 4-19 [facility] Sodium levelOrdered By: Trey Singh on 10-16-2024 Sodium [Moles/Vol] 141 mmol/L 133-145 [facility] Total proteinOrdered By: Uli Singh on 10-16-2024 Protein [Mass/Vol] 6.3 g/dL 5.9-8.4 [facility] Vitamin B12on 10-16-2024 Cobalamin (Vitamin B12) [Mass/Vol] 302 pg/mL Normal 180-914 [facility] Comment on above: Result Comment: AMENDED REPORT 10/16/24922 Vitamin B12 previously reported as: 326 pg/mL Performed By: #### L 3100.2300, L500.4050, L503.6030, L504.2610, L900.0098, L100.0100 #### [facility] [address] [facility] [place], [address] Vitamin B12 ser/plasOrdered By: Maco Singh on 10-16-2024 Cobalamin (Vitamin B12) [Mass/Vol] 302 pg/mL 180-914 [facility] Comment on above: Previous reported re sult: 326 pg/mLEdited by: CHERI on 10/16/24:09 AMENDED REPORT 10/16/24922 Vitamin B12 previously reported as: 326 pg/mL White blood cell (WBC) count Ordered By: Maco Singh on 10-16-2024 WBC (Bld) [#/Vol] 6.5 10*3/uL 4.4-11.0 [facility] SCRN MAMM (CAD)W/FLOR BILATo n 05-30-2024 SCRN MAMM (CAD)W/FLOR BILAT [facility] [address] [place], [place] [id number] SCRN MAMM (CAD)W/FLOR BILAT MR#: [id number] Acct: [id number] Name: NGUYEN QUEEN Rep #: [id number] : 1945 F 79 From: Emily Thornton MD PCP: Dr. Jeff Simeon, DO Status: REG CLI Study: SCRN MAMM (CAD)W/FLOR BILAT Date of Exam: 05/13 10/06 Exam# [id number] Ordering Dr: Jeff Simeon DO EXAM: SCRN [...] be mailed to the patient. Reading Location: [facility] CC: Dr. Jeff Simeon DO Analytic Manager: Signed Normal [facility] 25(OH)D3 [facility] 25-hydroxyvitamin D3 [Mass/Vol] 17.7 ng/mL Low 31.0-80.0 [facility] Comment on above: Order Comment: Speci men Type: BLOOD SPECIMENOrdering Facility: [facility] Address: [address] [place] [address] Result Comment: Clas sification of 25 [place] Vitamin D status: Deficiency/Insufficiency: < or = 30 ng/ml. Sufficiency/Optimal Levels: 31-80 ng/mL Toxicity: > 100 ng/mL. Test performed by chemiluminescent immunoassay. Performed By: #### 1 989-3 ####[facility] LABCLIA [id number] [place] [address] [place] CNOVon 2024 CNOV Office Visit (FAMPWS ) ----- NGUYEN QUEEN ([id number]) 1945 F Date Time Provider Department 05/23/24 [...] up in the next few months with [employer] Dr. Crystal as well. She is eating [...] found. 5 yr recall. [facility] COLONOSCOPY FLX DX W/COLLJ SPEC WHEN PFRMD 02/26/2018 Colonoscopy ESOPHAGOGASTRODUODENOSCOP Y TRANSORAL DIAGNOSTIC 08/31/2003 Unremarkable, negative biopsies. [facility] ESOPHAGOGASTRODUODENOSCOP Y TRANSORAL DIAGNOSTIC 02/26/2018 EGD LAPAROSCOPIC CHOLECYSTECTOMY 04/05/2022 REMV CATARACT EXTRACAP,INSERT LENS Bilateral TONSILLECTOMY HX Social History Tobacco Use Smoking status: Never Smokeless tobacco: Never Vaping Use Vaping status: Never Used Substance Use Topics Alcohol use: No Drug use: No FAMILY HISTORY Adopted: Yes Allergies: ALLERGIES Allergen Reactions Benadryl [Diphenhyd* Swelling Penicillins Shortness of Breath Ompwebu-Bpp-Mrn Red* Contraindication-Medical Surgical History of liver failure [...] TEST) test (more content not included)... Normal [facility] T4 Free SerPl-mCncon 025 Free T4 [Mass/Vol] 1.3 ng/dL Normal 0.9-1.7 [facility] Comment on above: Order Comment: Speci men Type: BLOOD SPECIMENOrdering Facility: [facility] Address: [address] [place] [address] Performed By: #### 2 132-9, 3024-7, 3016-3 ####[facility] [id number] [place] [address] [place] TSH SerPl-aCncon 2024 TSH Qn 0.040 m[IU]/L Low 0.270-4.20 0 [facility] Comment on above: Order Comment: Speci [facility] Type: BLOOD SPECIMENOrdering Facility: [facility] Address: [address] [place] [address] Performed By: #### 2 132-9, 3024-7, 3016-3 ####[facility] LABIA [id number] [place] [address] [place] US DVT LOWER [...] in the visualized veins of both legs. Analytic Manager: [facility] Transcribe Date/Time: 2024 1:49P Dictated by : ERIBERTO BENAVIDEZ MD This examination was interpreted and the report reviewed and electronically signed by: ERIBERTO BENAVIDEZ MD on 2024 1:51PM EST [id number] Normal [facility] US Lower extremity vein - bi lateralon 2024 IMPRESSION: No deep venous thrombosis in the visualized veins of both legs. Analytic Manager: [facility] Transcribe Date/Time: 2024 1:49P Dictated by : [...] superficial venous thrombosis. DIVISION OF RADIOLOGY Provider, [facility] - 2024 * * *Final Report* * [...] in the visualized veins of both legs. Analytic Manager: [facility] Transcribe Date/Time: 2024 1:49P Dictated by : ERIBERTO BENAVIDEZ MD This examination was interpreted and the report reviewed and electronically signed by: ERIBERTO BENAVIDEZ MD on 2024 1:51PM EST [facility] Radiology Study observation (narrative) [facility] US Lower extremity vein - bi lateralOrdered By: Ccf Provider on 2024 [facility] Vit B12 SerPl-mCncon 025 Cobalamin (Vitamin B12) [Mass/Vol] 375 pg/mL Normal 232-1245 [facility] Comment on above: Order Comment: Speci men Type: BLOOD SPECIMENOrdering Facility: [facility] Address: [address] [place] [address] Performed By: #### 2 132-9, 3024-7, 3016-3 ####[facility] LABCLIA [id number] [place] [address] [place] Gastroenterology Visit Repor ton 05-06-2024 Gastroenterology Visit Report [facility] [address] [place] [address] OFFICE VISIT Date of Service: 05/06/24 MR#: [id number] Acct: [id number] Name: NGUYEN QUEEN Rep #: [id number] : 1945 Provider: Jarrell Crystal DO Age/Sex: 78/F Location: [facility] Status: Signed Intake Vital Signs 10/17/23 14:16 [...] Products Adverse Reaction (Verified 04/17/24 14:18) Other [place] And Derivatives Adverse Reaction (Verified 04/17/24 14:18) [...] to the office today for follow up. *[facility] established 4 for repeat colonoscopy after [...] endometrium cannot be accurately evaluated with [facility] hospitalization .05.05 - 9 abd pain - [...] and i (more content not included)... Normal [facility] Carcinoembryonic Antigenon 0 - CEA 6.8 ng/mL High 0.0-4.7 [facility] Comment on above: Result Comment: Nons mokers <3.9 Smokers <5.6 [employer] Electrochemiluminescence Immunoassay (ECLIA) Values obtained with different assay methods or kits cannot be used interchangeably. Results cannot be interpreted as absolute evidence of the presence or absence of malignant disease. Performed at: [facility] [id number] Mine Manager: Flako Araujo PhD, Phone: [phone] Performed By: #### L 503.6550, L501.2300, L503.0106, L900.0098, L504.2610, L3100.2300, L500.4050, L501.5200, L503.6030, L506.0200, L100.0100 ####[facility] [id number] [place], [address] Absolute neutrophil countOrd ered By: Maco Singh on 04-17-2024 Neutrophils (Bld) [#/Vol] 3.2 10*3/uL 2.0-7.7 [facility] Anion gap in Serum or Plasma Ordered By: Maco Singh on 04-17-2024 Anion gap [Moles/Vol] 11 mmol/L 5-15 [facility] BUN/creatinine ratioOrdered By: Maco Singh on 04-17-2024 Urea nitrogen/Creatinine [Mass ratio] 25.4 mg/mg High 10-20 [facility] Basophil percentageOrdered B y: Maco Singh on 04-17-2024 Basophils/100 WBC (Bld) 0.6 % 0-1 [facility] Bilirubin, totalOrdered By: Maco Singh on 04-17-2024 Bilirubin [Mass/Vol] 0.25 mg/dL 0.00-1.30 [facility] CBC W/Diff, Automatedon 03- Absolute Lymph 1.32 X10 3/uL Normal 0.83-4.51 [facility] Comment on above: Performed By: #### L 503.6550, L501.2300, L503.0106, L900.0098, L504.2610, L3100.2300, L500.4050, L501.5200, L503.6030, L506.0200, L100.0100 #### [facility] [address] [place], [place], [phone] (558) Absolute Neut 3.2 X10 3/uL Normal 2.0-7.7 [facility] Comment on above: Performed By: #### L 503.6550, L501.2300, L503.0106, L900.0098, L504.2610, L3100.2300, L500.4050, L501.5200, L503.6030, L506.0200, L100.0100 #### [facility] [address] [place], [place], [phone] (543) Basophils/100 WBC (Bld) 0.6 % Normal 0-1 [facility] Comment on above: Performed By: #### L 503.6550, L501.2300, L503.0106, L900.0098, L504.2610, L3100.2300, L500.4050, L501.5200, L503.6030, L506.0200, L100.0100 #### [facility] [address] [place], [place], [phone] (644) Eosinophils/100 WBC (Bld) 2.3 % Normal 0-5 [facility] Comment on above: Performed By: #### L 503.6550, L501.2300, L503.0106, L900.0098, L504.2610, L3100.2300, L500.4050, L501.5200, L503.6030, L506.0200, L100.0100 #### [facility] [address] [place], [place], [phone] (948) Erythrocyte distribution width (RBC) [Ratio] 15.7 % High 11.6-14.6 [facility] Comment on above: Performed By: #### L 503.6550, L501.2300, L503.0106, L900.0098, L504.2610, L3100.2300, L500.4050, L501.5200, L503.6030, L506.0200, L100.0100 #### [facility] [address] [place], [address] (641) Hematocrit (Bld) [Volume fraction] 41.3 % Normal 37-47 [facility] Comment on above: Performed By: #### L 503.6550, L501.2300, L503.0106, L900.0098, L504.2610, L3100.2300, L500.4050, L501.5200, L503.6030, L506.0200, L100.0100 #### [facility] [address] [place], [address] (788) Hemoglobin (Bld) [Mass/Vol] 12.5 g/dL Normal 12.0-15.0 [facility] Comment on above: Performed By: #### L 503.6550, L501.2300, L503.0106, L900.0098, L504.2610, L3100.2300, L500.4050, L501.5200, L503.6030, L506.0200, L100.0100 #### [facility] [address] [place], [address] (204) IG% 0.400 Normal 0.0-0.9 [facility] Comment on above: Result Comment: IG% - Immature Granulocytes (promyelocytes, myelocytes and metamyelocytes) > 1% indicates that a LEFT SHIFT is Present. Performed By: #### L 503.6550, L501.2300, L503.0106, L900.0098, L504.2610, L3100.2300, L500.4050, L501.5200, L503.6030, L506.0200, L100.0100 #### [facility] [address] [place], [address] Lymphocytes/100 WBC (Bld) 24.9 % Normal 19-41 [facility] Comment on above: Performed By: #### L 503.6550, L501.2300, L503.0106, L900.0098, L504.2610, L3100.2300, L500.4050, L501.5200, L503.6030, L506.0200, L100.0100 #### [facility] [address] [place], [address] MCH (RBC) [Entitic mass] 23.9 pg Low 27.0-32.0 [facility] Comment on above: Performed By: #### L 503.6550, L501.2300, L503.0106, L900.0098, L504.2610, L3100.2300, L500.4050, L501.5200, L503.6030, L506.0200, L100.0100 #### [facility] [address] [place], [address] MCHC (RBC) [Mass/Vol] 30.3 g/dL Low 32-36 [facility] Comment on above: Performed By: #### L 503.6550, L501.2300, L503.0106, L900.0098, L504.2610, L3100.2300, L500.4050, L501.5200, L503.6030, L506.0200, L100.0100 #### [facility] [address] [place], [address] MCV (RBC) [Entitic vol] 78.8 fL Low 81-99 [facility] Comment on above: Performed By: #### L 503.6550, L501.2300, L503.0106, L900.0098, L504.2610, L3100.2300, L500.4050, L501.5200, L503.6030, L506.0200, L100.0100 #### [facility] [address] [place], [address] Monocytes/100 WBC (Bld) 11.1 % High 0-10 [facility] Comment on above: Performed By: #### L 503.6550, L501.2300, L503.0106, L900.0098, L504.2610, L3100.2300, L500.4050, L501.5200, L503.6030, L506.0200, L100.0100 #### [facility] [address] [place], [address] Neutrophils/100 WBC (Bld) 60.7 % Normal 47-70 [facility] Comment on above: Performed By: #### L 503.6550, L501.2300, L503.0106, L900.0098, L504.2610, L3100.2300, L500.4050, L501.5200, L503.6030, L506.0200, L100.0100 #### [facility] [address] [place], [address] Nucleated RBC (Bld) [#/Vol] 0 10*3/uL Normal 0-5 [facility] Comment on above: Performed By: #### L 503.6550, L501.2300, L503.0106, L900.0098, L504.2610, L3100.2300, L500.4050, L501.5200, L503.6030, L506.0200, L100.0100 #### [facility] [address] [place], [address] ( Platelet mean volume (Bld) [Entitic vol] 9.8 fL Normal 6.2-12.0 [facility] Comment on above: Performed By: #### L 503.6550, L501.2300, L503.0106, L900.0098, L504.2610, L3100.2300, L500.4050, L501.5200, L503.6030, L506.0200, L100.0100 #### [facility] [address] [place], [address] Platelets (Bld) [#/Vol] 380 10*3/uL Normal 150-450 [facility] Comment on above: Performed By: #### L 503.6550, L501.2300, L503.0106, L900.0098, L504.2610, L3100.2300, L500.4050, L501.5200, L503.6030, L506.0200, L100.0100 #### [facility] [address] [place], [place], [phone] (962) RBC (Bld) [#/Vol] 5.24 10*6/uL Normal 4.2-5.4 [facility] Comment on above: Performed By: #### L 503.6550, L501.2300, L503.0106, L900.0098, L504.2610, L3100.2300, L500.4050, L501.5200, L503.6030, L506.0200, L100.0100 #### [facility] [address] [place], [place], [phone] (410 RDW SD 44.6 fl High 35.1-43.9 [facility] Comment on above: Performed By: #### L 503.6550, L501.2300, L503.0106, L900.0098, L504.2610, L3100.2300, L500.4050, L501.5200, L503.6030, L506.0200, L100.0100 #### [facility] [address] [place], [place], [phone] (897) WBC (Bld) [#/Vol] 5.3 10*3/uL Normal 4.4-11.0 [facility] Comment on above: Performed By: #### L 503.6550, L501.2300, L503.0106, L900.0098, L504.2610, L3100.2300, L500.4050, L501.5200, L503.6030, L506.0200, L100.0100 #### [facility] [address] [place], [place], [phone] Calculated total iron bindin g capacityOrdered By: Maco Singh on 04-17-2024 Total Iron Binding Capacity 285 ug/dL 250-450 [facility] Carbon dioxide, total [Moles /volume] in Central venous bloodOrdered By: Maco Singh on 04-17-2024 CO2 [Moles/Vol] 23.2 mmol/L 21.0-32.0 [facility] Chloride assayOrdered By: Sandra Singh on 04-17-2024 Chloride [Moles/Vol] 107 mmol/L 98-108 [facility] Comprehensive Metabolic Prof ilon 04-17-2024 Albumin [Mass/Vol] 3.9 g/dL Normal 3.4-4.8 [facility] Comment on above: Performed By: #### L 503.6550, L501.2300, L503.0106, L900.0098, L504.2610, L3100.2300, L500.4050, L501.5200, L503.6030, L506.0200, L100.0100 ####[facility] [address] [place], [address] Albumin/Globulin [Mass ratio] 1.3 {ratio} Normal 0.9-2.4 [facility] Comment on above: Performed By: #### L 503.6550, L501.2300, L503.0106, L900.0098, L504.2610, L3100.2300, L500.4050, L501.5200, L503.6030, L506.0200, L100.0100 ####[facility] [address] [place], [place], [phone] ALK PHOS 107 U/L High 35-104 [facility] Comment on above: Performed By: #### L 503.6550, L501.2300, L503.0106, L900.0098, L504.2610, L3100.2300, L500.4050, L501.5200, L503.6030, L506.0200, L100.0100 ####[facility] [address] [place], [place], [phone] ALT [Catalytic activity/Vol] 18 U/L Normal <=34 [facility] Comment on above: Performed By: #### L 503.6550, L501.2300, L503.0106, L900.0098, L504.2610, L3100.2300, L500.4050, L501.5200, L503.6030, L506.0200, L100.0100 ####[facility] [address] [place], [place], [phone] AST [Catalytic activity/Vol] 15 U/L Normal <=31 [facility] Comment on above: Performed By: #### L 503.6550, L501.2300, L503.0106, L900.0098, L504.2610, L3100.2300, L500.4050, L501.5200, L503.6030, L506.0200, L100.0100 ####[facility] [address] [place], [place], [phone] Bilirubin [Mass/Vol] 0.25 mg/dL Normal 0.00-1.30 [facility] Comment on above: Performed By: #### L 503.6550, L501.2300, L503.0106, L900.0098, L504.2610, L3100.2300, L500.4050, L501.5200, L503.6030, L506.0200, L100.0100 ####[facility] [address] [place], [address] BUN/CRE 25.4 RATIO High 10-20 [facility] Comment on above: Performed By: #### L 503.6550, L501.2300, L503.0106, L900.0098, L504.2610, L3100.2300, L500.4050, L501.5200, L503.6030, L506.0200, L100.0100 ####[facility] [address] [place], [address] Calcium [Mass/Vol] 9.3 mg/dL Normal 7.6-11.0 [facility] Comment on above: Performed By: #### L 503.6550, L501.2300, L503.0106, L900.0098, L504.2610, L3100.2300, L500.4050, L501.5200, L503.6030, L506.0200, L100.0100 ####[facility] [address] [place], [address] Chloride [Moles/Vol] 107 mmol/L Normal 98-108 [facility] Comment on above: Performed By: #### L 503.6550, L501.2300, L503.0106, L900.0098, L504.2610, L3100.2300, L500.4050, L501.5200, L503.6030, L506.0200, L100.0100 ####[facility] [address] [place], [address] CO2 [Moles/Vol] 23.2 mmol/L Normal 21.0-32.0 [facility] Comment on above: Performed By: #### L 503.6550, L501.2300, L503.0106, L900.0098, L504.2610, L3100.2300, L500.4050, L501.5200, L503.6030, L506.0200, L100.0100 ####[facility] [address] [place], [place], [phone] Creatinine [Mass/Vol] 0.71 mg/dL Normal 0.70-1.20 [facility] Comment on above: Performed By: #### L 503.6550, L501.2300, L503.0106, L900.0098, L504.2610, L3100.2300, L500.4050, L501.5200, L503.6030, L506.0200, L100.0100 ####[facility] [address] [place], [place], [phone](900) ECRCL 57.11 ml/min Normal 50-250 [facility] Comment on above: Performed By: #### L 503.6550, L501.2300, L503.0106, L900.0098, L504.2610, L3100.2300, L500.4050, L501.5200, L503.6030, L506.0200, L100.0100 ####[facility] [address] [place], [place], [phone](781) GAP 11 Normal 5-15 [facility] Comment on above: Performed By: #### L 503.6550, L501.2300, L503.0106, L900.0098, L504.2610, L3100.2300, L500.4050, L501.5200, L503.6030, L506.0200, L100.0100 ####[facility] [address] [place], [place], [phone] GFR/1.73 sq M.predicted among non-blacks MDRD (S/P/Bld) [Vol rate/Area] 88 mL/min/{1.73_m2} Normal >60 [facility] Comment on above: Result Comment: mL/m in/1.73m2 CKD-EPI Creatinine Equation (2020) Performed By: #### L 503.6550, L501.2300, L503.0106, L900.0098, L504.2610, L3100.2300, L500.4050, L501.5200, L503.6030, L506.0200, L100.0100 ####[facility] [address] [place], [address] Globulin (S) [Mass/Vol] 3.0 g/dL Normal 2.2-4.2 [facility] Comment on above: Performed By: #### L 503.6550, L501.2300, L503.0106, L900.0098, L504.2610, L3100.2300, L500.4050, L501.5200, L503.6030, L506.0200, L100.0100 ####[facility] [address] [place], [place], [phone](992) Glucose [Mass/Vol] 87 mg/dL Normal 70-99 [facility] Comment on above: Performed By: #### L 503.6550, L501.2300, L503.0106, L900.0098, L504.2610, L3100.2300, L500.4050, L501.5200, L503.6030, L506.0200, L100.0100 ####[facility] [address] [place], [place], [phone] Potassium [Moles/Vol] 3.9 mmol/L Normal 3.3-5.1 [facility] Comment on above: Performed By: #### L 503.6550, L501.2300, L503.0106, L900.0098, L504.2610, L3100.2300, L500.4050, L501.5200, L503.6030, L506.0200, L100.0100 ####[facility] [address] [place], [place], [phone](885) Sodium [Moles/Vol] 141 mmol/L Normal 133-145 [facility] Comment on above: Performed By: #### L 503.6550, L501.2300, L503.0106, L900.0098, L504.2610, L3100.2300, L500.4050, L501.5200, L503.6030, L506.0200, L100.0100 ####[facility] [address] [place], [address] T PROT 6.9 g/dL Normal 5.9-8.4 [facility] Comment on above: Performed By: #### L 503.6550, L501.2300, L503.0106, L900.0098, L504.2610, L3100.2300, L500.4050, L501.5200, L503.6030, L506.0200, L100.0100 ####[facility] [address] [place], [address] Urea nitrogen [Mass/Vol] 18 mg/dL Normal 4-19 [facility] Comment on above: Performed By: #### L 503.6550, L501.2300, L503.0106, L900.0098, L504.2610, L3100.2300, L500.4050, L501.5200, L503.6030, L506.0200, L100.0100 ####[facility] [address] [place], [address] Eosinophil percentageOrdered By: Maco Singh on 04-17-2024 Eosinophils/100 WBC (Bld) 2.3 % 0-5 [facility] Erythrocyte distribution wid th ratioOrdered By: Maco Singh on 04-17-2024 Erythrocyte distribution width (RBC) [Ratio] 15.7 % High 11.6-14.6 [facility] Erythrocyte distribution wid th standard deviationOrdered By: Maco Singh on 04-17-2024 Erythrocyte distribution width (RBC) [Entitic vol] 44.6 fL High 35.1-43.9 [facility] Estimation of creatinine chanel aranceOrdered By: Maco Singh on 04-17-2024 Estimated Creatinine Clearance Calc 57.11 ml/min 50-250 [facility] FOLATES,SERUM (FOLIC ACID)on 04-17-2024 FOLATES,SERUM 12.00 ng/mL Normal 4.60-34.80 [facility] Comment on above: Order Comment: N Performed By: #### L 503.6550, L501.2300, L503.0106, L900.0098, L504.2610, L3100.2300, L500.4050, L501.5200, L503.6030, L506.0200, L100.0100 #### [facility] [address] [place], [place], [phone] Ferritinon 04-17-2024 Ferritin [Mass/Vol] 111 ng/mL Normal 22-378 [facility] Comment on above: Performed By: #### L 503.6550, L501.2300, L503.0106, L900.0098, L504.2610, L3100.2300, L500.4050, L501.5200, L503.6030, L506.0200, L100.0100 ####[facility] [address] [place], [place], [phone] Folate [Mass/Vol]Ordered By: Maco Singh on 04-17-2024 Folate 12.00 ng/mL 4.60-34.80 [facility] Folate [Mass/volume] in Seru m or PlasmaOrdered By: Maco Singh on 04-17-2024 Folate [Mass/Vol] 12.00 ng/mL 4.60-34.80 [facility] GFR/1.73 sq M.predicted bola g non-blacks MDRD (S/P/Bld) [Vol rate/Area]Ordered By: Maco Singh on 04-17-2024 Estimated GFR (MDRD) Non-Af Amer 88 >60 [facility] Comment on above: mL/min/1.73m2 CKD-EP I Creatinine Equation (2020) Hematocrit Auto (Bld) [Volum e fraction]Ordered By: Maco Singh on 04-17-2024 Hematocrit (Bld) [Volume fraction] 41.3 % 37-47 [facility] Hemoglobin measurementOrdere d By: Maco Samantha on 04-17-2024 Hemoglobin (Bld) [Mass/Vol] 12.5 g/dL 12.0-15.0 [facility] Immature granulocytes/100 WB C Auto (Bld)Ordered By: Maco Singh on 04-17-2024 Immature granulocytes/100 WBC (Bld) 0.400 % 0.0-0.9 [facility] Comment on above: IG% - Immature Granu locytes (promyelocytes, myelocytes and metamyelocytes) > 1% indicates that a LEFT SHIFT is Present. Iron (Unsp spec) [Mass/Mass] Ordered By: Maco Singh on 04-17-2024 Iron [Mass/Vol] 54 ug/dL 50-170 [facility] Iron saturation [Mass fracti on]Ordered By: Maco Singh on 04-17-2024 Iron Saturation 19.0 % 15.0-55.0 [facility] Iron+Iron Binding Capacityon 04-17-2024 Iron [Mass/Vol] 54 ug/dL Normal 50-170 [facility] Comment on above: Performed By: #### L 503.6550, L501.2300, L503.0106, L900.0098, L504.2610, L3100.2300, L500.4050, L501.5200, L503.6030, L506.0200, L100.0100 ####[facility] [address] [place], [place], [phone] IRON SATURATION 19.0 Normal 15.0-55.0 [facility] Comment on above: Performed By: #### L 503.6550, L501.2300, L503.0106, L900.0098, L504.2610, L3100.2300, L500.4050, L501.5200, L503.6030, L506.0200, L100.0100 ####[facility] [address] [place], [place], [phone] TIBC 285 ug/dL Normal 250-450 [facility] Comment on above: Performed By: #### L 503.6550, L501.2300, L503.0106, L900.0098, L504.2610, L3100.2300, L500.4050, L501.5200, L503.6030, L506.0200, L100.0100 ####[facility] [address] [place], [place], [phone] UIBC 231 ug/dL Normal 228-428 [facility] Comment on above: Performed By: #### L 503.6550, L501.2300, L503.0106, L900.0098, L504.2610, L3100.2300, L500.4050, L501.5200, L503.6030, L506.0200, L100.0100 ####[facility] [address] [place], [place], [phone] L503.0106on 04-17-2024 Cobalamin (Vitamin B12) [Mass/Vol] 362 pg/mL Normal 180-914 [facility] Comment on above: Performed By: #### L 503.6550, L501.2300, L503.0106, L900.0098, L504.2610, L3100.2300, L500.4050, L501.5200, L503.6030, L506.0200, L100.0100 ####[facility] [address] [place], [place], [address] LDHon 04-17-2024 LDH 122 U/L Normal 84-246 [facility] Comment on above: Order Comment: 1 Performed By: #### L 503.6550, L501.2300, L503.0106, L900.0098, L504.2610, L3100.2300, L500.4050, L501.5200, L503.6030, L506.0200, L100.0100 ####[facility] [address] [place], [place], [phone] Laboratory - Chemistry and C hemistry - challengeOrdered By: [facility] on 04-17-2024 AST [Catalytic activity/Vol] 15 U/L <32 [facility] Lactate dehydrogenase (LDH) measurementOrdered By: [facility] on 04-17-2024 LDH [Catalytic activity/Vol] 122 U/L 84-246 [facility] Lymphocytes Auto (Unsp spec) [#/Vol]Ordered By: [facility] on 04-17-2024 Lymphocytes (Bld) [#/Vol] 1.32 10*3/uL 0.83-4.5 1 [facility] Lymphocytes/100 WBC Auto (Un sp spec)Ordered By: [facility] on 04-17-2024 Lymphocytes/100 WBC (Bld) 24.9 % 19-41 [facility] MCV (mean corpuscular volume ) determinationOrdered By: [facility] on 04-17-2024 MCV (RBC) [Entitic vol] 78.8 fL Low 81-99 [facility] Magnesiumon 04-17-2024 Magnesium [Mass/Vol] 1.7 mg/dL Normal 1.5-2.2 [facility] Comment on above: Performed By: #### L 503.6550, L501.2300, L503.0106, L900.0098, L504.2610, L3100.2300, L500.4050, L501.5200, L503.6030, L506.0200, L100.0100 ####[facility] [address] [place], [place], [phone] Magnesium (Unsp spec) [Mass/ Vol]Ordered By: [facility] on 04-17-2024 Magnesium [Mass/Vol] 1.7 mg/dL 1.5-2.2 [facility] Magnesium measurement (mass/ volume)Ordered By: [facility] on 04-17-2024 Magnesium (Unsp spec) [Mass/Vol] 1.7 mg/dL 1.5-2.2 [facility] Mean corpuscular hemoglobin (MCH) determinationOrdered By: Maco [facility] on 04-17-2024 MCH (RBC) [Entitic mass] 23.9 pg Low 27.0-32.0 [facility] Mean corpuscular hemoglobin concentration (MCHC) determinationOrdered By: Maco Singh on 04-17-2024 MCHC (RBC) [Mass/Vol] 30.3 g/dL Low 32-36 [facility] Mean platelet volume determi nationOrdered By: Maco Singh on 04-17-2024 Platelet mean volume (Bld) [Entitic vol] 9.8 fL 6.2-12.0 [facility] Miscellaneous procedureOrder ed By: Maco Singh on 04-17-2024 Miscellaneous Test Comment SEE SCANNED REPORT [facility] Monocyte percentageOrdered B y: Maco Singh on 04-17-2024 Monocytes/100 WBC (Bld) 11.1 % High 0-10 [facility] NATERAon 04-17-2024 NATURA SEE SCANNED REPORT Normal [facility] Comment on above: Performed By: #### L 503.6550, L501.2300, L503.0106, L900.0098, L504.2610, L3100.2300, L500.4050, L501.5200, L503.6030, L506.0200, L100.0100 ####[facility] [address] [place], [place], [address] Neutrophil percentageOrdered By: Maco Singh on 04-17-2024 Neutrophils/100 WBC (Bld) 60.7 % 47-70 [facility] No Panel InformationOrdered By: Maco Singh on 04-17-2024 Unsaturated Iron Binding Capacity 231 ug/dL 228-428 [facility] Nucleated red blood cell per centageOrdered By: Maco Samantha on 04-17-2024 Nucleated RBC/100 WBC (Bld) [Ratio] 0 % 0-5 [facility] Oncology Visit Reporton Oncology Visit Report [facility] [address] [place] [address] OFFICE VISIT Date of Service: 04/17/24 1416 MR#: [id number] Acct: [id number] Name: NGUYEN QUEEN Rep #: [id number] : 1945 From: Maco Singh MD Age/Sex: 78/F Location: [facility] Status: Signed HPI Subjective Date of Service 04/17/24 Chief Complaint F/u for anemia. History of Present Illness 78-year-old woman presented with right lower quadrant abdominal pain to [facility]. CT of the abdomen and pelvis on [...] and comes for follow up. Feels well. [facility] Medical History Colon cancer Bilateral lower extremity [...] Products Adverse Reaction (Verified 04/17/24 14:18) Other [place] And Derivatives Adverse Reaction (Verified 04/17/24 14:18) [...] AST ALT (more content not included)... Normal [facility] Phosphoruson 04-17-2024 Phosphate [Mass/Vol] 3.7 mg/dL Normal 2.7-4.5 [facility] Comment on above: Performed By: #### L 503.6550, L501.2300, L503.0106, L900.0098, L504.2610, L3100.2300, L500.4050, L501.5200, L503.6030, L506.0200, L100.0100 ####[facility] [address] [place], [address] Platelet countOrdered By: Sandra Singh on 04-17-2024 Platelets (Bld) [#/Vol] 380 10*3/uL 150-450 [facility] Potassium (Unsp spec) [Mass/ Vol]Ordered By: Maco Singh on 04-17-2024 Potassium [Moles/Vol] 3.9 mmol/L 3.3-5.1 [facility] RBC Auto (Bld) [#/Vol]Ordere d By: Maco Singh on 04-17-2024 RBC (Bld) [#/Vol] 5.24 10*6/uL 4.2-5.4 [facility] Serum creatinine measurement (mass/volume)Ordered By: Maco Singh on 04-17-2024 Creatinine [Mass/Vol] 0.71 mg/dL 0.70-1.20 [facility] Serum globulin measurementOr dered By: Maco Singh on 04-17-2024 Globulin (S) [Mass/Vol] 3.0 g/dL 2.2-4.2 [facility] Serum glucose measurement (m ass/volume)Ordered By: Maco Singh on 04-17-2024 Glucose [Mass/Vol] 87 mg/dL 70-99 [facility] Serum or plasma alanine cuellar otransferase (ALT) measurementOrdered By: Maco Singh on 04-17-2024 ALT [Catalytic activity/Vol] 18 U/L <35 [facility] Serum or plasma albumin pj urement (mass/volume)Ordered By: Maco Singh on 04-17-2024 Albumin [Mass/Vol] 3.9 g/dL 3.4-4.8 [facility] Serum or plasma albumin/glob ulin mass ratioOrdered By: Maco Singh on 04-17-2024 Albumin/Globulin [Mass ratio] 1.3 {ratio} 0.9-2.4 [facility] Serum or plasma alkaline miriam sphatase measurementOrdered By: Maco Singh on 04-17-2024 ALP [Catalytic activity/Vol] 107 U/L High 35-104 [facility] Serum or plasma calcium pj urement (mass/volume)Ordered By: Maco Singh on 04-17-2024 Calcium [Mass/Vol] 9.3 mg/dL 7.6-11.0 [facility] Serum or plasma ferritin nunu surement (mass/volume)Ordered By: Maco Singh on 04-17-2024 Ferritin [Mass/Vol] 111 ng/mL 22-378 [facility] Serum or plasma urea nitroge n measurement (mass/volume)Ordered By: Maco Singh on 04-17-2024 Urea nitrogen [Mass/Vol] 18 mg/dL 4-19 [facility] Serum phosphorus measurement Ordered By: Maco Singh on 04-17-2024 Phosphorus Level 3.7 mg/dL 2.7-4.5 [facility] Sodium levelOrdered By: Trey Singh on 04-17-2024 Sodium [Moles/Vol] 141 mmol/L 133-145 [facility] Total proteinOrdered By: Uli Singh on 04-17-2024 Protein [Mass/Vol] 6.9 g/dL 5.9-8.4 [facility] Vitamin B12 ser/plasOrdered By: Maco Singh on 04-17-2024 Cobalamin (Vitamin B12) [Mass/Vol] 362 pg/mL 180-914 [facility] White blood cell (WBC) count Ordered By: Maco Singh on 04-17-2024 WBC (Bld) [#/Vol] 5.3 10*3/uL 4.4-11.0 [facility] CNOVon 02-14-2024 CNOV Office Visit (FAMPWS ) ----- NGUYEN QUEEN ([id number]) 1945 F Date Time Provider Department 02/14/24 10:20 [facility], we recorded the following information about you: Pulse Respiration Blood pressure Weight 89/minute 16/minute 118/72 73.2 kg Karson Woodward APRN.SHUTDOWN COORDINATOR 02/14/2024 2:41 PM Signed Chief Complaint Patient [...] D-knows it is low but states at [facility] tried to give this to her and she can't tolerate it-overall just makes her very sick. Past medical history, appointments, medications, allergies reviewed. Previous Medical History PAST MEDICAL HISTORY Diagnosis Date Advance care planning 08/24/2021 [facility] Diabetes mellitus, type 2 (HCC) Environmental allergies [...] found. 5 yr recall. [facility] COLONOSCOPY FLX DX W/COLLJ SPEC WHEN PFRMD 02/26/2018 Colonoscopy ESOPHAGOGASTRODUODENOSCOP Y TRANSORAL DIAGNOSTIC 08/31/2003 Unremarkable, negative biopsies. [facility] ESOPHAGOGASTRODUODENOSCOP Y TRANSORAL DIAGNOSTIC 02/26/2018 EGD LAPAROSCOPIC CHOLECYSTECTOMY 04/05/2022 REMV CATARACT EXTRACAP,INSERT LENS Bilateral TONSILLECTOMY HX Family History FAMILY HISTORY Adopted: Yes Patient Allergies ALLERGIES Allergen Reactions Benadryl [Diphenhyd* Swelling Penicillins Shortness of Breath Ruetjzu-Jtu-Tnc Red* Contraindication-Medical Surgical History of liver failure [...] mg disintegratin (more content not included)... [facility] (FREEDOM) ----- NGUYEN QUEEN ([id number]) 1945 F Date Time Provider Department 02/14/24 [...] PENICILLINS 05/17/2015 12 - Shortness of Breath [id number] REDUCTASE INHIBIT*09/28/2015 15 - Contraindication-Medical Lester* Comments: [...] Encounter Status:Closed by KARSON WOODWARD on 02/14/24 [place] ----- NGUYEN QUEEN ([id number]) 1945 F Date Time Provider Department 02/14/24 KARSON WOODWARD During your visit today, we recorded the following information about you: Karson Woodward APRN.SHUTDOWN COORDINATOR 02/14/2024 2:49 PM Signed Patient states that she usually gets her B12 shots and is due for one with our nurse Lani. For whatever reason she states she hasn't been able to schedule this appt. I'm not familiar with this, are we able to help her out? Thanks Karson Woodward APRN.SHUTDOWN COORDINATOR Allergies As of Date: 02/14/2024 Noted Allergy Reaction BENADRYL (DIPHENHYDRAMINE HCL) 05/17/2015 7 - Swelling PENICILLINS 05/17/2015 12 - Shortness of Breath [id number] REDUCTASE INHIBIT*09/28/2015 15 - Contraindication-Medical Lester* Comments: History of liver failure Date Reviewed: 02/14/2024 Reviewed by: Karson Woodward APRN.SHUTDOWN COORDINATOR - Fully Assessed Reason for Visit: B12 [...] Status:Closed by KARSON WOODWARD on 03/05/24 Normal [facility] 25(OH)D3 [facility] 25-hydroxyvitamin D3 [Mass/Vol] 20.6 ng/mL Low 31.0-80.0 [facility] Comment on above: Order Comment: Speci men Type: BLOOD SPECIMENOrdering Facility: [facility] Address: [address] [place] [address] Result Comment: Clas sification of 25 [place] Vitamin D status: Deficiency/Insufficiency: < or = 30 ng/ml. Sufficiency/Optimal Levels: 31-80 ng/mL Toxicity: > 100 ng/mL. Test performed by chemiluminescent immunoassay. Performed By: #### 1 989-3 ####[facility] LABCLIA [id number] [place] [address] [place] CBC panel Auto (Bld)on 02-03 Erythrocyte distribution width (RBC) [Ratio] 13.4 % Normal 11.5-15.0 [facility] Comment on above: Order Comment: Marcelina plascencia Type: BLOOD SPECIMENOrdering Facility: [facility] Address: [address] [place] [address] Performed By: #### 5 8410-2 ####[facility]ENTERWNCAYAD [id number] [place] [address] [place] Hematocrit (Bld) [Volume fraction] 35.0 % Low 36.0-46.0 [facility] Comment on above: Order Comment: Marcelina plascencia Type: BLOOD SPECIMENOrdering Facility: [facility] Address: [address] [place] [address] Performed By: #### 5 8410-2 ####[facility]ENTERNCAYAD [id number] [place] [address] [place] Hemoglobin (Bld) [Mass/Vol] 10.7 g/dL Low 11.5-15.5 [facility] Comment on above: Order Comment: Speci men Type: BLOOD SPECIMENOrdering Facility: [facility] Address: [address] [place] [address] Performed By: #### 5 8410-2 ####[facility] CENTERSOHAMLIA [id number] [place] [address] [place] MCH (RBC) [Entitic mass] 25.3 pg Low 26.0-34.0 [facility] Comment on above: Order Comment: Speci men Type: BLOOD SPECIMENOrdering Facility: [facility] Address: [address] [place] [address] Performed By: #### 5 8410-2 ####[facility]ENTERNCMOAB [facility] [id number] [place] [address] [place] MCHC (RBC) [Mass/Vol] 30.6 g/dL Normal 30.5-36.0 [facility] Comment on above: Order Comment: Speci men Type: BLOOD SPECIMENOrdering Facility: [facility] Address: [address] [place] [address] Performed By: #### 5 8410-2 ####[facility] CENTERNCLIA [id number] [place] [address] [place] MCV (RBC) [Entitic vol] 82.7 fL Normal 80.0-100.0 [facility] Comment on above: Order Comment: Speci men Type: BLOOD SPECIMENOrdering Facility: [facility] Address: [address] [place] [address] Performed By: #### 5 8410-2 ####[facility]ENTERNCLIA [id number] [place] [address] [place] Nucleated RBC (Bld) [#/Vol] 10*3/uL Normal <0.01 [facility] Comment on above: Order Comment: Speci men Type: BLOOD SPECIMENOrdering Facility: [facility] Address: [address] [place] [address] Performed By: #### 5 8410-2 ####[facility] RADHA DEVONTENCAYAD [id number] [place] [address] [place] Platelet mean volume (Bld) [Entitic vol] 9.1 fL Normal 9.0-12.7 [facility] Comment on above: Order Comment: Speci men Type: BLOOD SPECIMENOrdering Facility: [facility] Address: [address] [place] [address] Performed By: #### 5 8410-2 ####[facility] CENTERNCJANELL [id number] [place] [address] [place] Platelets (Bld) [#/Vol] 441 10*3/uL High 150-400 [facility] Comment on above: Order Comment: Speci men Type: BLOOD SPECIMENOrdering Facility: [facility] Address: [address] [place] [address] Performed By: #### 5 8410-2 ####[facility] CENTERNCLIA [id number] [place] [address] [place] RBC (Bld) [#/Vol] 4.23 10*6/uL Normal 3.90-5.20 [facility] Comment on above: Order Comment: Speci men Type: BLOOD SPECIMENOrdering Facility: [facility] Address: [address] [place] [address] Performed By: #### 5 8410-2 ####[facility]ENTERNCLIA [id number] [place] [address] [place] WBC (Bld) [#/Vol] 5.45 10*3/uL Normal 3.70-11.00 [facility] Comment on above: Order Comment: Speci men Type: BLOOD SPECIMENOrdering Facility: [facility] Address: [address] [place] [address] Performed By: #### 5 8410-2 ####[facility] RICKIESINGHWNCLIA [id number] [place] [address] [place] Comprehensive metabolic 2000 panelon 02-04-2024 Albumin [Mass/Vol] 3.3 g/dL Low 3.9-4.9 [facility] Comment on above: Order Comment: Speci men Type: BLOOD SPECIMENOrdering Facility: [facility] Address: [address] [place] [address] Performed By: #### 2 4323-8 ####[facility] CENTERWSOHAMLIA [id number] [place] [address] [place] ALP [Catalytic activity/Vol] 81 U/L Normal 34-123 [facility] Comment on above: Order Comment: Speci men Type: BLOOD SPECIMENOrdering Facility: [facility] Address: [address] [place] [address] Performed By: #### 2 4323-8 ####[facility] MEDICAL CENTERTATIA [id number] [address] [place] ALT [Catalytic activity/Vol] 9 U/L Normal 7-38 [facility] Comment on above: Order Comment: Speci men Type: BLOOD SPECIMENOrdering Facility: [facility] Address: [address] [place] [address] Performed By: #### 2 4323-8 ####[facility] MILLTOWNCLIA [id number] [place] [address] [place] Anion gap [Moles/Vol] 11 mmol/L Normal 8-15 [facility] Comment on above: Order Comment: Speci men Type: BLOOD SPECIMENOrdering Facility: [facility] Address: [address] [place] [address] Performed By: #### 2 4323-8 ####[facility]ENTERNCLIA [id number] [place] [address] [place] AST [Catalytic activity/Vol] 11 U/L Low 13-35 [facility] Comment on above: Order Comment: Speci men Type: BLOOD SPECIMENOrdering Facility: [facility] Address: [address] [place] [address] Performed By: #### 2 4323-8 ####[facility] CENTERWNCLIA [id number] [place] [address] [place] Bilirubin [Mass/Vol] 0.3 mg/dL Normal 0.2-1.3 [facility] Comment on above: Order Comment: Speci men Type: BLOOD SPECIMENOrdering Facility: [facility] Address: [address] [place] [address] Performed By: #### 2 4323-8 ####[facility] CENTERNCLIA [id number] [place] [address] [place] Calcium [Mass/Vol] 8.8 mg/dL Normal 8.5-10.2 [facility] Comment on above: Order Comment: Speci men Type: BLOOD SPECIMENOrdering Facility: [facility] Address: [address] [place] [address] Performed By: #### 2 4323-8 ####[facility] CENTERNCLIA [id number] [place] [address] [place] Chloride [Moles/Vol] 107 mmol/L Normal 98-107 [facility] Comment on above: Order Comment: Speci men Type: BLOOD SPECIMENOrdering Facility: [facility] Address: [address] [place] [address] Performed By: #### 2 4323-8 ####[facility] CENTERWNCLIA [id number] [place] [address] [place] CO2 [Moles/Vol] 21 mmol/L Low 22-30 [facility] Comment on above: Order Comment: Speci men Type: BLOOD SPECIMENOrdering Facility: [facility] Address: [address] [place] [address] Performed By: #### 2 4323-8 ####[facility] RICKIEBLOOMBURGNCLI [id number] [place] [address] [place] Creatinine [Mass/Vol] 0.64 mg/dL Normal 0.58-0.96 [facility] Comment on above: Order Comment: Speci men Type: BLOOD SPECIMENOrdering Facility: [facility] Address: [address] [place] [address] Performed By: #### 2 4323-8 ####[facility]ENTERNCMOAB [facility] [id number] [place] [address] [place] Creatinine and Glomerular filtration rate.predicted panel (S/P/Bld) 92 mL/min/1.73m??? Normal >=60 [facility] Comment on above: Order Comment: Speci men Type: BLOOD SPECIMENOrdering Facility: [facility] Address: [address] [place] [address] Result Comment: Sonya mated Glomerular Filtration Rate [...] actual GFR. Performed By: #### 2 4323-8 ####[facility]ENTERNCLIA [id number] [place] [address] [place] Glucose [Mass/Vol] 141 mg/dL High 74-99 [facility] Comment on above: Order Comment: Speci men Type: BLOOD SPECIMENOrdering Facility: [facility] Address: [address] [place] [address] Result Comment: The [place] Diabetes [employer] (ADA) provides guidance for cutoff [...] Standards of Medical Care in Diabetes 2016, [place] [employer]. Diabetes Care. 2016.39(Suppl 1). Performed By: #### 2 4323-8 ####[facility] [id number] [place] [address] [place] Potassium [Moles/Vol] 3.9 mmol/L Normal 3.7-5.1 [facility] Comment on above: Order Comment: Speci men Type: BLOOD SPECIMENOrdering Facility: [facility] Address: [address] [place] [address] Performed By: #### 2 4323-8 ####[facility] [id number] [place] [address] [place] Protein [Mass/Vol] 6.1 g/dL Low 6.3-8.0 [facility] Comment on above: Order Comment: Speci men Type: BLOOD SPECIMENOrdering Facility: [facility] Address: [address] [place] [address] Performed By: #### 2 4323-8 ####[facility] [id number] [place] [address] [place] Sodium [Moles/Vol] 139 mmol/L Normal 136-144 [facility] Comment on above: Order Comment: Speci men Type: BLOOD SPECIMENOrdering Facility: [facility] Address: [address] [place] [address] Performed By: #### 2 4323-8 ####[facility]ENTERNCLIA [id number] [place] [address] [place] Urea nitrogen [Mass/Vol] 15 mg/dL Normal 7-21 [facility] Comment on above: Order Comment: Speci men Type: BLOOD SPECIMENOrdering Facility: [facility] Address: [address] [place] [address] Performed By: #### 2 4323-8 ####[facility] CENTERNCLIA [id number] [place] [id number] [place] Ferritin SerPl-mCncon 2023 Ferritin [Mass/Vol] 60.6 ng/mL Normal 14.7-205.1 [facility] Comment on above: Order Comment: Speci men Type: BLOOD SPECIMENOrdering Facility: [facility] Address: [address] [place] [address] Performed By: #### 2 132-9, 2276-4 ####[facility] LABCLIA [id number] [place] [address] [place] HbA1c (Bld)on 02-04-2024 Average glucose Estimated from glycated hemoglobin (Bld) [Mass/Vol] 111 mg/dL Normal [facility] Comment on above: Order Comment: Speci men Type: BLOOD SPECIMENOrdering Facility: [facility] Address: [address] [place] [address] Result Comment: eAG: (Estimated average glucose) is a calculated value from HgbA1c and is warehouse representative of the average blood glucose level in the last 2-3 month period. Performed By: #### 5 5454-3 ####[facility] LABCLIA [id number] [place] [address] [place] HbA1c (Bld) [Mass fraction] 5.5 % Normal 4.3-5.6 [facility] Comment on above: Order Comment: Speci men Type: BLOOD SPECIMENOrdering Facility: [facility] Address: [address] [place] [address] Result Comment: [place] Diabetes Association guidelines indicate that patients with HgbA1c in the range 5.7-6.4% are at increased risk for development of diabetes, and intervention by lifestyle modification may be beneficial. HgbA1c greater or equal to 6.5% is considered diagnostic of diabetes. Performed By: #### 5 5454-3 ####[facility] LABCLIA [id number] [place] [address] [place] Iron and Iron binding capaci ty panelon 02-04-2024 Iron [Mass/Vol] 29 ug/dL Low 41-186 [facility] Comment on above: Order Comment: Speci men Type: BLOOD SPECIMENOrdering Facility: [facility] Address: [address] [place] [address] Performed By: #### 5 0190-8, 4-7, 3016-3 ####[facility] LABCLIA [id number] [place] [address] [place]#### 56168-4 ####[facility] LABCLIA [id number] [place] [id number] [facility] [id number] [place] [address] [place] Iron binding capacity [Mass/Vol] 251 ug/dL Normal 232-386 [facility] Comment on above: Order Comment: Speci men Type: BLOOD SPECIMENOrdering Facility: [facility] Address: [facility] [place] [address] Performed By: #### 5 0190-8, 3024-7, 3016-3 ####[facility] LABCLIA [id number] [place] [address] [place]#### 27154-1 ####[facility] LABCLIA [id number] [address] [address] [place] STATES OF [facility] [id number] [place] [address] [place] Iron/TIBC [Molar ratio] 11.6 % Low 15.0-57.0 [facility] Comment on above: Order Comment: Speci men Type: BLOOD SPECIMENOrdering Facility: [facility] Address: [address] [place] [address] Performed By: #### 5 0190-8, 3024-7, 3016-3 ####[facility] LABCLIA [id number] [place] [address] [place]#### 82962-9 ####[facility] LABCLIA [id number] [address] STATES OF [facility] [id number] [place] [address] [place] Lipid 1996 panelon 4 Cholesterol [Mass/Vol] 114 mg/dL Normal <200 [facility] Comment on above: Order Comment: Speci men Type: BLOOD SPECIMENOrdering Facility: [facility] Address: [address] [place] [address] Result Comment: <200 mg/dL, Desirable 200-239 mg/dL, Borderline high >239 mg/dL, High Performed By: #### 5 0190-8, 3024-7, 3016-3 ####[facility] LABCLIA [id number] [place] [address] [place]#### 84142-5 ####[facility] LABCLIA [id number] [address] STATES OF [facility] [id number] [place] [address] [place] Cholesterol in HDL [Mass/Vol] 44 mg/dL Normal >39 [facility] Comment on above: Order Comment: Speci men Type: BLOOD SPECIMENOrdering Facility: [facility] Address: [address] [place] [address] Result Comment: 40-5 9 mg/dL, Acceptable >59 mg/dL, High: Negative risk factor for coronary heart disease <40 mg/dL, Low: Positive risk factor for coronary heart disease Performed By: #### 5 0190-8, 3024-7, 3016-3 ####[facility] LABCLIA [id number] [place] [address] [place]#### 49810-9 ####[facility] LABCLIA [id number] [address] [id number] [place] [address] [place] Cholesterol in LDL [Mass/Vol] 52 mg/dL Normal <100 [facility] Comment on above: Order Comment: Speci men Type: BLOOD SPECIMENOrdering Facility: [facility] Address: [address] [place] [address] Result Comment: <100 mg/dL, Optimal 100-129 mg/dL, Near optimal/above optimal 130-159 mg/dL, Borderline high 160-189 mg/dL, High >189 mg/dL, Very high Secondary prevention optimal LDL Cholesterol levels are recommended to be < 70 mg/dL Performed By: #### 5 0190-8, 3024-7, 3016-3 ####[facility] LABCLIA [id number] [place] [address] [place]#### 82146-6 ####[facility] LABCLIA [id number] [address] OF [facility] [id number] [place] [address] [place] Cholesterol in LDL/Cholesterol in HDL [Mass ratio] 1.18 {ratio} Normal <2.54 [facility] Comment on above: Order Comment: Speci men Type: BLOOD SPECIMENOrdering Facility: [facility] Address: [facility] [place] [address] Result Comment: Idalia dean: 1. National Cholesterol Education Program ATP III Guideline At-A-Glance Quick Desk Reference: National Heart, Lung, and Blood [place]. National Institutes of Health. 2001: NIH Publication No. 01-3305. 2. An International Atherosclerosis Society position paper: global recommendations for the management of dyslipidemia: executive summary, Atherosclerosis. 2014: 232(2):410-413. Performed By: #### 5 0190-8, 3024-7, 3016-3 ####[facility] LABCLIA [id number] [place] [address] [place]#### 53992-3 ####[facility] LABCLIA [id number] [id number] [place] [address] [place] Cholesterol in VLDL [Mass/Vol] 18 mg/dL Normal <30 [facility] Comment on above: Order Comment: Speci men Type: BLOOD SPECIMENOrdering Facility: [facility] Address: [address] [place] [address] Performed By: #### 5 0190-8, 4-7, 3016-3 ####[facility] LABCLIA [id number] [address] [place]#### 42162-3 ####[facility] LABCLIA [id number] [address] [id number] [place] [address] [place] Cholesterol non HDL [Mass/Vol] 70 mg/dL Normal <130 [facility] Comment on above: Order Comment: Speci men Type: BLOOD SPECIMENOrdering Facility: [facility] Address: [address] [place] [address] Result Comment: <130 mg/dL, Optimal 130-159 mg/dL, Near optimal/above optimal 160-189 mg/dL, Borderline high 190-219 mg/dL, High >219 mg/dL, Very high Secondary prevention optimal non HDL Cholesterol levels are recommended to be <100 mg/dL Performed By: #### 5 0190-8, 3023-, 3 ####[facility] LABCLIA [id number] [place] [address] [place]#### 00442-0 ####[facility] LABCLIA [id number] [address] [id number] [place] [address] [place] Cholesterol.total/Cholest tobi in HDL [Mass ratio] 2.59 {ratio} Normal <5.10 [facility] Comment on above: Order Comment: Speci men Type: BLOOD SPECIMENOrdering Facility: [facility] Address: [address] [place] [address] Performed By: #### 5 0190-8, 3023-08, 3015-04 ####[facility] LABCLIA [id number] [place] [address] [place]#### 12977-3 ####[facility] LABCLIA [id number] [address] [id number] [address] [place] FASTING TIME 14 hrs Normal [facility] Comment on above: Order Comment: Speci men Type: BLOOD SPECIMENOrdering Facility: [facility] Address: [address] [place] [address] Performed By: #### 5 0190-8, 3023-08, 3 ####[facility] LABCLIA [id number] [place] [address] [place]#### 76195-2 ####[facility] LABCLIA [id number] [place] [address] [place] [facility] [id number] [place] [address] [place] Triglyceride [Mass/Vol] 89 mg/dL Normal <150 [facility] Comment on above: Order Comment: Speci men Type: BLOOD SPECIMENOrdering Facility: [facility] Address: [address] [place] [address] Result Comment: <150 mg/dL, Normal 150-199 mg/dL, Borderline high 200-499 mg/dL, High >499 mg/dL, Very high Performed By: #### 5 0190-8, 4-7, 3016-3 ####[facility] LABCLIA [id number] [place] [address] [place]#### 54763-5 ####[facility] LABCLIA [id number] [address] STATES OF [facility] [id number] [place] [address] [place] T4 Free SerPl-mCncon -23-2 024 Free T4 [Mass/Vol] 1.6 ng/dL Normal 0.9-1.7 [facility] Comment on above: Order Comment: Speci men Type: BLOOD SPECIMENOrdering Facility: [facility] Address: [address] [place] [id number] Performed By: #### 5 0190-8, 3024-7, 3016-3 ####[facility] LABCLIA [id number] [place] [address] [place]#### 21141-9 ####[facility] LABCLIA [id number] [address] [id number] [place] [address] [place] TSH SerPl-aCncon 02-04-2024 TSH Qn 0.025 m[IU]/L Low 0.270-4.20 0 [facility] Comment on above: Order Comment: Speci men Type: BLOOD SPECIMENOrdering Facility: [facility] Address: [address] [place] [address] Performed By: #### 5 0190-8, 3024-7, 3016-3 ####[facility] LABCLIA [id number] [address] [place]#### 79704-6 ####[facility] LABCLIA [id number] [address] [id number] [place] [address] [place] Vit B12 SerPl-ncon 024 Cobalamin (Vitamin B12) [Mass/Vol] 480 pg/mL Normal 232-1245 [facility] Comment on above: Order Comment: Speci men Type: BLOOD SPECIMENOrdering Facility: [facility] Address: [address] [place] [address] Performed By: #### 2 132-9, 2276-4 ####[facility] LABCLIA [id number] [address] [place] CNPJennifer 02-01-2024 CNPN Telephone (INTMWS) ----- NGUYEN [id number]) 1945 F Date Time Provider Department 02/01/24 [...] PENICILLINS 05/17/2015 12 - Shortness of Breath [id number] REDUCTASE INHIBIT*09/28/2015 15 - Contraindication-Medical Lester* Comments: [...] [E03.9] Vitamin D deficiency [E55.9] Order(s):HEMOGLOBIN A1C [LLILZ4U] Order #: [id number] FUTURE THYROID STIMULATING HORMONE [SQTSH] Order #: [id number] FUTURE T4 FREE/FREE THYROXINE [SQFT4] Order #: [id number] FUTURE VITAMIN D 25 HYDROXY [SQVITD] Order #: [id number] FUTURE IRON AND TIBC [SQIRON] Order #: [id number] FUTURE FERRITIN [SQFERR] Order #: [id number] FUTURE COMPLETE BLOOD COUNT [SQCBC] Order #: [id number] FUTURE COMPREHENSIVE METABOLIC PANEL [SQCMP] Order #: [id number] FUTURE LIPID PANEL BASIC [SQLIPB] Order #: [id number] FUTURE VITAMIN B12 [SQB12] Order #: [id number] FUTURE Prescriptions as of 02/01/2024 - ascorbic [...] Chronic midlin (more content not included)... Normal [facility] CBC W/Diff, Automatedon - Absolute Lymph 1.40 X10 3/uL Normal 0.83-4.51 [facility] Comment on above: Performed By: #### L 3100.2300, L500.4050, L503.6030, L504.2610, L900.0098, L100.0100 #### [facility] [address] [place], [place], [id number] Absolute Neut 3.4 X10 3/uL Normal 2.0-7.7 [facility] Comment on above: Performed By: #### L 3100.2300, L500.4050, L503.6030, L504.2610, L900.0098, L100.0100 #### [facility] [address] [place], [address] Basophils/100 WBC (Bld) 0.7 % Normal 0-1 [facility] Comment on above: Performed By: #### L 3100.2300, L500.4050, L503.6030, L504.2610, L900.0098, L100.0100 #### [facility] [address] [place], [address] Eosinophils/100 WBC (Bld) 2.7 % Normal 0-5 [facility] Comment on above: Performed By: #### L 3100.2300, L500.4050, L503.6030, L504.2610, L900.0098, L100.0100 #### [facility] [address] [place], [address] Erythrocyte distribution width (RBC) [Ratio] 12.9 % Normal 11.6-14.6 [facility] Comment on above: Performed By: #### L 3100.2300, L500.4050, L503.6030, L504.2610, L900.0098, L100.0100 #### [facility] [address] [place], [address] Hematocrit (Bld) [Volume fraction] 35.9 % Low 37-47 [facility] Comment on above: Performed By: #### L 3100.2300, L500.4050, L503.6030, L504.2610, L900.0098, L100.0100 #### [facility] [address] [place], [address] Hemoglobin (Bld) [Mass/Vol] 10.7 g/dL Low 12.0-15.0 [facility] Comment on above: Performed By: #### L 3100.2300, L500.4050, L503.6030, L504.2610, L900.0098, L100.0100 #### [facility] [address] [place], [address] IG% 1.800 High 0.0-0.9 [facility] Comment on above: Result Comment: IG% - Immature Granulocytes (promyelocytes, myelocytes and metamyelocytes) > 1% indicates that a LEFT SHIFT is Present. Performed By: #### L 3100.2300, L500.4050, L503.6030, L504.2610, L900.0098, L100.0100 #### [facility] [address] [place], [address] Lymphocytes/100 WBC (Bld) 23.5 % Normal 19-41 [facility] Comment on above: Performed By: #### L 3100.2300, L500.4050, L503.6030, L504.2610, L900.0098, L100.0100 #### [facility] [address] [place], [address] MCH (RBC) [Entitic mass] 25.4 pg Low 27.0-32.0 [facility] Comment on above: Performed By: #### L 3100.2300, L500.4050, L503.6030, L504.2610, L900.0098, L100.0100 #### [facility] [address] [place], [address] MCHC (RBC) [Mass/Vol] 29.8 g/dL Low 32-36 [facility] Comment on above: Performed By: #### L 3100.2300, L500.4050, L503.6030, L504.2610, L900.0098, L100.0100 #### [facility] [address] [place], [address] MCV (RBC) [Entitic vol] 85.1 fL Normal 81-99 [facility] Comment on above: Performed By: #### L 3100.2300, L500.4050, L503.6030, L504.2610, L900.0098, L100.0100 #### [facility] [address] [place], [address] Monocytes/100 WBC (Bld) 14.4 % High 0-10 [facility] Comment on above: Performed By: #### L 3100.2300, L500.4050, L503.6030, L504.2610, L900.0098, L100.0100 #### [facility] [address] [place], [address] Neutrophils/100 WBC (Bld) 56.9 % Normal 47-70 [facility] Comment on above: Performed By: #### L 3100.2300, L500.4050, L503.6030, L504.2610, L900.0098, L100.0100 #### [facility] [address] [place], [address] Nucleated RBC (Bld) [#/Vol] 0 10*3/uL Normal 0-5 [facility] Comment on above: Performed By: #### L 3100.2300, L500.4050, L503.6030, L504.2610, L900.0098, L100.0100 #### [facility] [address] [place], [address] Platelet mean volume (Bld) [Entitic vol] 9.3 fL Normal 6.2-12.0 [facility] Comment on above: Performed By: #### L 3100.2300, L500.4050, L503.6030, L504.2610, L900.0098, L100.0100 #### [facility] [address] [place], [address] Platelets (Bld) [#/Vol] 469 10*3/uL High 150-450 [facility] Comment on above: Performed By: #### L 3100.2300, L500.4050, L503.6030, L504.2610, L900.0098, L100.0100 #### [facility] [address] [place], [address] RBC (Bld) [#/Vol] 4.22 10*6/uL Normal 4.2-5.4 [facility] Comment on above: Performed By: #### L 3100.2300, L500.4050, L503.6030, L504.2610, L900.0098, L100.0100 #### [facility] [address] [place], [address] RDW SD 39.8 fl Normal 35.1-43.9 [facility] Comment on above: Performed By: #### L 3100.2300, L500.4050, L503.6030, L504.2610, L900.0098, L100.0100 #### [facility] [address] [place], [address] WBC (Bld) [#/Vol] 6.0 10*3/uL Normal 4.4-11.0 [facility] Comment on above: Performed By: #### L 3100.2300, L500.4050, L503.6030, L504.2610, L900.0098, L100.0100 #### [facility] [address] [place], [address] Comprehensive Metabolic Prof laon 01-24-2024 Albumin [Mass/Vol] 2.6 g/dL Low 3.2-5.0 [facility] Comment on above: Order Comment: N1 Performed By: #### L 3100.2300, L500.4050, L503.6030, L504.2610, L900.0098, L100.0100 #### [facility] [address] [place], [address] Albumin/Globulin [Mass ratio] 0.7 {ratio} Low 0.9-2.4 [facility] Comment on above: Order Comment: N1 Performed By: #### L 3100.2300, L500.4050, L503.6030, L504.2610, L900.0098, L100.0100 #### [facility] [address] [place], [address] ALK P 75 U/L Normal 45-117 [facility] Comment on above: Order Comment: N1 Performed By: #### L 3100.2300, L500.4050, L503.6030, L504.2610, L900.0098, L100.0100 #### [facility] [address] [place], [address] ALT [Catalytic activity/Vol] 19 U/L Normal 13-56 [facility] Comment on above: Order Comment: N1 Performed By: #### L 3100.2300, L500.4050, L503.6030, L504.2610, L900.0098, L100.0100 #### [facility] [address] [place], [address] AST [Catalytic activity/Vol] 14 U/L Low 15-37 [facility] Comment on above: Order Comment: N1 Performed By: #### L 3100.2300, L500.4050, L503.6030, L504.2610, L900.0098, L100.0100 #### [facility] [address] [place], [address] Bilirubin [Mass/Vol] 0.10 mg/dL Low 0.20-1.00 [facility] Comment on above: Order Comment: N1 Result Comment: For patients on eltrombopag therapy, use of Dimension [place] TBIL is not recommended. Performed By: #### L 3100.2300, L500.4050, L503.6030, L504.2610, L900.0098, L100.0100 #### [facility] [address] [place], [address] BUN/CRE 25.0 RATIO High 10-20 [facility] Comment on above: Order Comment: N1 Performed By: #### L 3100.2300, L500.4050, L503.6030, L504.2610, L900.0098, L100.0100 #### [facility] [address] [place], [address] CA,Total 9.0 mg/dL Normal 8.5-10.1 [facility] Comment on above: Order Comment: N1 Performed By: #### L 3100.2300, L500.4050, L503.6030, L504.2610, L900.0098, L100.0100 #### [facility] [address] [place], [address] Chloride [Moles/Vol] 109 mmol/L High 98-107 [facility] Comment on above: Order Comment: N1 Performed By: #### L 3100.2300, L500.4050, L503.6030, L504.2610, L900.0098, L100.0100 #### [facility] [address] [place], [address] CO2 [Moles/Vol] 26.0 mmol/L Normal 21.0-32.0 [facility] Comment on above: Order Comment: N1 Performed By: #### L 3100.2300, L500.4050, L503.6030, L504.2610, L900.0098, L100.0100 #### [facility] [address] [place], [address] Creatinine [Mass/Vol] 0.64 mg/dL Normal 0.55-1.02 [facility] Comment on above: Order Comment: N1 Result Comment: The validity of the calculated GFR GFRAA in patients over 70 years has not been determined. Clinical correlation is essential. Performed By: #### L 3100.2300, L500.4050, L503.6030, L504.2610, L900.0098, L100.0100 #### [facility] [address] [place], [address] ECRCL 57.15 ml/min Normal [facility] Comment on above: Order Comment: N1 Performed By: #### L 3100.2300, L500.4050, L503.6030, L504.2610, L900.0098, L100.0100 #### [facility] [address] [place], [address] EST GFR - AA 116 mL/min Normal >60 [facility] Comment on above: Order Comment: N1 Result Comment: Afri can [place] GFR Calc Performed By: #### L 3100.2300, L500.4050, L503.6030, L504.2610, L900.0098, L100.0100 #### [facility] [address] [place], [address] GAP 4 Low 5-15 [facility] Comment on above: Order Comment: N1 Performed By: #### L 3100.2300, L500.4050, L503.6030, L504.2610, L900.0098, L100.0100 #### [facility] [address] [place], [address] GFR/1.73 sq M.predicted among non-blacks MDRD (S/P/Bld) [Vol rate/Area] 96 mL/min/{1.73_m2} Normal >60 [facility] Comment on above: Order Comment: N1 Result Comment: Non- GFR Calc Performed By: #### L 3100.2300, L500.4050, L503.6030, L504.2610, L900.0098, L100.0100 #### [facility] [address] [place], [address] Globulin (S) [Mass/Vol] 3.9 g/dL Normal 2.2-4.2 [facility] Comment on above: Order Comment: N1 Performed By: #### L 3100.2300, L500.4050, L503.6030, L504.2610, L900.0098, L100.0100 #### [facility] [address] [place], [address] Glucose [Mass/Vol] 87 mg/dL Normal 74-106 [facility] Comment on above: Order Comment: N1 Performed By: #### L 3100.2300, L500.4050, L503.6030, L504.2610, L900.0098, L100.0100 #### [facility] [address] [place], [address] Potassium [Moles/Vol] 3.9 mmol/L Normal 3.5-5.1 [facility] Comment on above: Order Comment: N1 Performed By: #### L 3100.2300, L500.4050, L503.6030, L504.2610, L900.0098, L100.0100 #### [facility] [address] [place], [address] Sodium [Moles/Vol] 139 mmol/L Normal 136-145 [facility] Comment on above: Order Comment: N1 Performed By: #### L 3100.2300, L500.4050, L503.6030, L504.2610, L900.0098, L100.0100 #### [facility] [address] [place], [address] T PROT 6.5 g/dL Normal 6.4-8.2 [facility] Comment on above: Order Comment: N1 Performed By: #### L 3100.2300, L500.4050, L503.6030, L504.2610, L900.0098, L100.0100 #### [facility] [address] [place], [address] Urea nitrogen [Mass/Vol] 16 mg/dL Normal 7-18 [facility] Comment on above: Order Comment: N1 Performed By: #### L 3100.2300, L500.4050, L503.6030, L504.2610, L900.0098, L100.0100 #### [facility] [address] [place], [address] Estimated glomerular filtrat ion rate (GFR) AmericanOrdered By: Maco Singh on 01-24-2024 Estimated GFR (MDRD) Amer 116 mL/min >60 [facility] Comment on above: GFR Calc Ferritinon 01-24-2024 Ferritin [Mass/Vol] 62 ng/mL Normal 8-252 [facility] Comment on above: Order Comment: N1 Performed By: #### L 3100.2300, L500.4050, L503.6030, L504.2610, L900.0098, L100.0100 #### [facility] [address] [place], [address] Iron+Iron Binding Capacityon 01-24-2024 Iron [Mass/Vol] 29 ug/dL Low 50-170 [facility] Comment on above: Order Comment: N1 Performed By: #### L 3100.2300, L500.4050, L503.6030, L504.2610, L900.0098, L100.0100 #### [facility] [address] [place], [place], [id number] IRON SATURATION 11.8 Low 15.0-55.0 [facility] Comment on above: Order Comment: N1 Performed By: #### L 3100.2300, L500.4050, L503.6030, L504.2610, L900.0098, L100.0100 #### [facility] [address] [place], [address] TIBC 246 ug/dL Low 250-450 [facility] Comment on above: Order Comment: N1 Performed By: #### L 3100.2300, L500.4050, L503.6030, L504.2610, L900.0098, L100.0100 #### [facility] [address] [place], [address] LDHon 01-24-2024 LDH 129 U/L Normal 84-246 [facility] Comment on above: Order Comment: N1 Performed By: #### L 3100.2300, L500.4050, L503.6030, L504.2610, L900.0098, L100.0100 #### [facility] [address] [place], [address] Oncology Visit Reporton 01-12 Oncology Visit Report [facility] [address] [place] [address] OFFICE VISIT Date of Service: 01/24/24 1436 MR#: [id number] Acct: [id number] Name: NGUYEN QUEEN Rep #: [id number] : 1945 From: Maco Singh MD Age/Sex: 78/F Location: [facility] Status: Signed HPI Subjective Date of Service 01/24/24 Chief Complaint F/u for Iron deficiency anemia. History of Present Illness 78-year-old woman presented with right lower quadrant abdominal pain to [facility]. CT of the abdomen and pelvis on [...] IV iron and comes for follow up. [facility] Medical History Colon cancer Bilateral lower extremity [...] Products Adverse Reaction (Verified 01/24/24 14:39) Other [place] And Derivatives Adverse Reaction (Verified 01/24/24 14:39) [...] DIR 11/21/23 01/24/24 Rx a dose pack (HuoBi DVT-PE Treat #74 tabs 30D Start) levothyroxine [...] all extrem (more content not included)... Normal [facility] Enterography Abd/Troy 01-21 Enterography Abd/Pel [facility] [address] [place] [address] Enterography Abd/Pel MR#: [id number] Acct: [id number] Name: NGUYEN QUEEN Rep #: [id number] : 1945 F 78 From: Santosh Martinez PCP: Dr. Jeff Simeon, DO Status: REG CLI Study: Enterography Abd/Pel Date of Exam: 01/22/24 Exam# [id number] Ordering Dr: Adriana Olmedo [id number] EXAM: MR ABDOMEN AND PELVIS WITHOUT INTRAVENOUS [...] CC: Dr. Jeff Simeon, ; BARRY Pearson Analytic Manager: Signed Normal [facility] Carcinoembryonic Antigenon 1 03-03-2023 CEA 10.7 ng/mL High 0.0-4.7 [facility] Comment on above: Result Comment: Nons mokers <3.9 Smokers <5.6 [facility] Electrochemiluminescence Immunoassay (ECLIA) Values obtained with different assay methods or kits cannot be used interchangeably. Results cannot be interpreted as absolute evidence of the presence or absence of malignant disease. Performed at: [facility] [id number] Mine Manager: Flako Araujo PhD, Phone: [phone] Performed By: #### L 3100.2300, L500.4050, L503.6030, L504.2610, L900.0098, L100.0100 #### [facility] [address] [place], [address] CBC W/Diff, Automatedon 12-13 Absolute Lymph 1.02 X10 3/uL Normal 0.83-4.51 [facility] Comment on above: Performed By: #### L 3100.2300, L500.4050, L503.6030, L504.2610, L900.0098, L100.0100 #### [facility] [address] [place], [place], [id number] Absolute Neut 2.6 X10 3/uL Normal 2.0-7.7 [facility] Comment on above: Performed By: #### L 3100.2300, L500.4050, L503.6030, L504.2610, L900.0098, L100.0100 #### [facility] [address] [place], [address] Basophils/100 WBC (Bld) 0.6 % Normal 0-1 [facility] Comment on above: Performed By: #### L 3100.2300, L500.4050, L503.6030, L504.2610, L900.0098, L100.0100 #### [facility] [address] [place], [address] Eosinophils/100 WBC (Bld) 2.2 % Normal 0-5 [facility] Comment on above: Performed By: #### L 3100.2300, L500.4050, L503.6030, L504.2610, L900.0098, L100.0100 #### [facility] [address] [place], [address] Erythrocyte distribution width (RBC) [Ratio] 15.5 % High 11.6-14.6 [facility] Comment on above: Performed By: #### L 3100.2300, L500.4050, L503.6030, L504.2610, L900.0098, L100.0100 #### [facility] [address] [place], [address] Hematocrit (Bld) [Volume fraction] 30.1 % Low 37-47 [facility] Comment on above: Performed By: #### L 3100.2300, L500.4050, L503.6030, L504.2610, L900.0098, L100.0100 #### [facility] [address] [place], [address] Hemoglobin (Bld) [Mass/Vol] 9.1 g/dL Low 12.0-15.0 [facility] Comment on above: Performed By: #### L 3100.2300, L500.4050, L503.6030, L504.2610, L900.0098, L100.0100 #### [facility] [address] [place], [address] IG% 1.300 High 0.0-0.9 [facility] Comment on above: Result Comment: IG% - Immature Granulocytes (promyelocytes, myelocytes and metamyelocytes) > 1% indicates that a LEFT SHIFT is Present. Performed By: #### L 3100.2300, L500.4050, L503.6030, L504.2610, L900.0098, L100.0100 #### [facility] [address] [place], [address] Lymphocytes/100 WBC (Bld) 22.1 % Normal 19-41 [facility] Comment on above: Performed By: #### L 3100.2300, L500.4050, L503.6030, L504.2610, L900.0098, L100.0100 #### [facility] [address] [place], [address] MCH (RBC) [Entitic mass] 26.6 pg Low 27.0-32.0 [facility] Comment on above: Performed By: #### L 3100.2300, L500.4050, L503.6030, L504.2610, L900.0098, L100.0100 #### [facility] [address] [place], [address] MCHC (RBC) [Mass/Vol] 30.2 g/dL Low 32-36 [facility] Comment on above: Performed By: #### L 3100.2300, L500.4050, L503.6030, L504.2610, L900.0098, L100.0100 #### [facility] [address] [place], [address] MCV (RBC) [Entitic vol] 88.0 fL Normal 81-99 [facility] Comment on above: Performed By: #### L 3100.2300, L500.4050, L503.6030, L504.2610, L900.0098, L100.0100 #### [facility] [address] [place], [address] Monocytes/100 WBC (Bld) 17.7 % High 0-10 [facility] Comment on above: Performed By: #### L 3100.2300, L500.4050, L503.6030, L504.2610, L900.0098, L100.0100 #### [facility] [address] [place], [address] Neutrophils/100 WBC (Bld) 56.1 % Normal 47-70 [facility] Comment on above: Performed By: #### L 3100.2300, L500.4050, L503.6030, L504.2610, L900.0098, L100.0100 #### [facility] [address] [place], [address] Nucleated RBC (Bld) [#/Vol] 0 10*3/uL Normal 0-5 [facility] Comment on above: Performed By: #### L 3100.2300, L500.4050, L503.6030, L504.2610, L900.0098, L100.0100 #### [facility] [address] [place], [address] Platelet mean volume (Bld) [Entitic vol] 9.0 fL Normal 6.2-12.0 [facility] Comment on above: Performed By: #### L 3100.2300, L500.4050, L503.6030, L504.2610, L900.0098, L100.0100 #### [facility] [address] [place], [address] Platelets (Bld) [#/Vol] 442 10*3/uL Normal 150-450 [facility] Comment on above: Performed By: #### L 3100.2300, L500.4050, L503.6030, L504.2610, L900.0098, L100.0100 #### [facility] [address] [place], [address] RBC (Bld) [#/Vol] 3.42 10*6/uL Low 4.2-5.4 [facility] Comment on above: Performed By: #### L 3100.2300, L500.4050, L503.6030, L504.2610, L900.0098, L100.0100 #### [facility] [address] [place], [address] RDW SD 49.6 fl High 35.1-43.9 [facility] Comment on above: Performed By: #### L 3100.2300, L500.4050, L503.6030, L504.2610, L900.0098, L100.0100 #### [facility] [address] [place], [address] WBC (Bld) [#/Vol] 4.6 10*3/uL Normal 4.4-11.0 [facility] Comment on above: Performed By: #### L 3100.2300, L500.4050, L503.6030, L504.2610, L900.0098, L100.0100 #### [facility] [address] [place], [address] Comprehensive Metabolic Prof ilon 01-01-2024 Albumin [Mass/Vol] 2.3 g/dL Low 3.2-5.0 [facility] Comment on above: Order Comment: 1 Performed By: #### L 3100.2300, L500.4050, L503.6030, L504.2610, L900.0098, L100.0100 #### [facility] [address] [place], [address] Albumin/Globulin [Mass ratio] 0.6 {ratio} Low 0.9-2.4 [facility] Comment on above: Order Comment: 1 Performed By: #### L 3100.2300, L500.4050, L503.6030, L504.2610, L900.0098, L100.0100 #### [facility] [address] [place], [address] ALK P 67 U/L Normal 45-117 [facility] Comment on above: Order Comment: 1 Performed By: #### L 3100.2300, L500.4050, L503.6030, L504.2610, L900.0098, L100.0100 #### [facility] [address] [place], [address] ALT [Catalytic activity/Vol] 15 U/L Normal 13-56 [facility] Comment on above: Order Comment: 1 Performed By: #### L 3100.2300, L500.4050, L503.6030, L504.2610, L900.0098, L100.0100 #### [facility] [address] [place], [address] AST [Catalytic activity/Vol] 10 U/L Low 15-37 [facility] Comment on above: Order Comment: 1 Performed By: #### L 3100.2300, L500.4050, L503.6030, L504.2610, L900.0098, L100.0100 #### [facility] [address] [place], [address] Bilirubin [Mass/Vol] 0.10 mg/dL Low 0.20-1.00 [facility] Comment on above: Order Comment: 1 Result Comment: For patients on eltrombopag therapy, use of Dimension [place] TBIL is not recommended. Performed By: #### L 3100.2300, L500.4050, L503.6030, L504.2610, L900.0098, L100.0100 #### [facility] [address] [place], [address] BUN/CRE 25.3 RATIO High 10-20 [facility] Comment on above: Order Comment: 1 Performed By: #### L 3100.2300, L500.4050, L503.6030, L504.2610, L900.0098, L100.0100 #### [facility] [address] [place], [address] CA,Total 8.7 mg/dL Normal 8.5-10.1 [facility] Comment on above: Order Comment: 1 Performed By: #### L 3100.2300, L500.4050, L503.6030, L504.2610, L900.0098, L100.0100 #### [facility] [address] [place], [address] Chloride [Moles/Vol] 112 mmol/L High 98-107 [facility] Comment on above: Order Comment: 1 Performed By: #### L 3100.2300, L500.4050, L503.6030, L504.2610, L900.0098, L100.0100 #### [facility] [address] [place], [address] CO2 [Moles/Vol] 23.0 mmol/L Normal 21.0-32.0 [facility] Comment on above: Order Comment: 1 Performed By: #### L 3100.2300, L500.4050, L503.6030, L504.2610, L900.0098, L100.0100 #### [facility] [address] [place], [address] Creatinine [Mass/Vol] 0.59 mg/dL Normal 0.55-1.02 [facility] Comment on above: Order Comment: 1 Result Comment: The validity of the calculated GFR GFRAA in patients over 70 years has not been determined. Clinical correlation is essential. Performed By: #### L 3100.2300, L500.4050, L503.6030, L504.2610, L900.0098, L100.0100 #### [facility] [address] [place], [address] ECRCL 57.97 ml/min Normal [facility] Comment on above: Order Comment: 1 Performed By: #### L 3100.2300, L500.4050, L503.6030, L504.2610, L900.0098, L100.0100 #### [facility] [address] [place], [address] EST GFR - AA 127 mL/min Normal >60 [facility] Comment on above: Order Comment: 1 Result Comment: Afri can [place] GFR Calc Performed By: #### L 3100.2300, L500.4050, L503.6030, L504.2610, L900.0098, L100.0100 #### [facility] [address] [place], [address] GAP 5 Normal 5-15 [facility] Comment on above: Order Comment: 1 Performed By: #### L 3100.2300, L500.4050, L503.6030, L504.2610, L900.0098, L100.0100 #### [facility] [address] [place], [address] GFR/1.73 sq M.predicted among non-blacks MDRD (S/P/Bld) [Vol rate/Area] 105 mL/min/{1.73_m2} Normal >60 [facility] Comment on above: Order Comment: 1 Result Comment: Non- GFR Calc Performed By: #### L 3100.2300, L500.4050, L503.6030, L504.2610, L900.0098, L100.0100 #### [facility] [address] [place], [address] Globulin (S) [Mass/Vol] 3.6 g/dL Normal 2.2-4.2 [facility] Comment on above: Order Comment: 1 Performed By: #### L 3100.2300, L500.4050, L503.6030, L504.2610, L900.0098, L100.0100 #### [facility] [address] [place], [address] Glucose [Mass/Vol] 126 mg/dL High 74-106 [facility] Comment on above: Order Comment: 1 Result Comment: Fast ing Glucose result greater than or equal to 126 mg/dL suggests DIABETES MELLITUS per A.D.A. criteria. Performed By: #### L 3100.2300, L500.4050, L503.6030, L504.2610, L900.0098, L100.0100 #### [facility] [address] [place], [address] Potassium [Moles/Vol] 4.3 mmol/L Normal 3.5-5.1 [facility] Comment on above: Order Comment: 1 Performed By: #### L 3100.2300, L500.4050, L503.6030, L504.2610, L900.0098, L100.0100 #### [facility] [address] [place], [address] Sodium [Moles/Vol] 140 mmol/L Normal 136-145 [facility] Comment on above: Order Comment: 1 Performed By: #### L 3100.2300, L500.4050, L503.6030, L504.2610, L900.0098, L100.0100 #### [facility] [address] [place], [address] T PROT 5.9 g/dL Low 6.4-8.2 [facility] Comment on above: Order Comment: 1 Performed By: #### L 3100.2300, L500.4050, L503.6030, L504.2610, L900.0098, L100.0100 #### [facility] [address] [place], [address] Urea nitrogen [Mass/Vol] 15 mg/dL Normal 7-18 [facility] Comment on above: Order Comment: 1 Performed By: #### L 3100.2300, L500.4050, L503.6030, L504.2610, L900.0098, L100.0100 #### [facility] [address] [place], [address] Ferritinon 01-01-2024 Ferritin [Mass/Vol] 122 ng/mL Normal 8-252 [facility] Comment on above: Performed By: #### L 503.6550 ####[facility] [address] [place], [address] Iron+Iron Binding Capacityon 01-01-2024 Iron [Mass/Vol] 25 ug/dL Low 50-170 [facility] Comment on above: Order Comment: 1 Performed By: #### L 3100.2300, L500.4050, L503.6030, L504.2610, L900.0098, L100.0100 #### [facility] [address] [place], [address] IRON SATURATION 10.4 Low 15.0-55.0 [facility] Comment on above: Order Comment: 1 Performed By: #### L 3100.2300, L500.4050, L503.6030, L504.2610, L900.0098, L100.0100 #### [facility] [address] [place], [address] TIBC 240 ug/dL Low 250-450 [facility] Comment on above: Order Comment: 1 Performed By: #### L 3100.2300, L500.4050, L503.6030, L504.2610, L900.0098, L100.0100 #### [facility] [address] [place], [address] LDHon 01-01-2024 LDH 117 U/L Normal 84-246 [facility] Comment on above: Order Comment: 1 Performed By: #### L 3100.2300, L500.4050, L503.6030, L504.2610, L900.0098, L100.0100 #### [facility] [address] [place], [place], [address] NATERAon 01-01-2024 NATURA SEE SCANNED REPORT Normal [facility] Comment on above: Performed By: #### L 3100.2300, L500.4050, L503.6030, L504.2610, L900.0098, L100.0100 #### [facility] [address] [place], [address] ASCA IgG abOrdered By: Teodora pizarro Friend on 11-19-2023 Saccharomyces cerevisiae (Daquan)IgG 17 units 0-50 [facility] Comment on above: Negative: <45 Equivo urmila: 45-50 Positive: >50 Addendum DocumentOrdered By: Jarrell Crystal on 11-19-2023 Serum Immunofixation Comments Comment . [facility] Comment on above: Protein electrophore sis scan will follow via computer,mail, or granite sandblaster apprentice delivery. Albumin Elph [Mass/Vol]Order ed By: Jarrell Crystal on 11-19-2023 Albumin [Mass/Vol] 2.0 g/dL Low 2.9-4.4 [facility] Alpha 1 globulin Elph [Mass/ Vol]Ordered By: Jarrell Crystal on 11-19-2023 Vtxcc-7-Buuyrfmpc (LAURA) 0.3 g/dL 0.0-0.4 [facility] Tcgvz-8-Qosmcksog (LAURA) 1.1 g/dL High 0.4-1.0 [facility] Atypical perinuclear antineu trophil cytoplasmic antibodies measurementOrdered By: Jarrell Crystal on 11-19-2023 Atypical p-ANCA <1:20 titer Neg:<1:20 [facility] Comment on above: *Additional results available. Contact laboratory/see report*The atypical pANCA pattern has been observed in asignificant percentage of patients with ulcerative colitis,primary sclerosing cholangitis and autoimmune hepatitis.Performed at: - [facility] [id number] Director: Chary Cox MD, Phone: [phone] at: - [facility] [address] [id number] Director: Flako Araujo PhD, Phone: [phone] Beef IgE Qn (S)Ordered By: Rose Mary Crystal on 11-19-2023 Beef Allergen (RAST) <0.10 kU/L Class 0 [facility] Beta globulin Elph [Mass/Vol ]Ordered By: Jarrell Crystal on 11-19-2023 Beta-Globulins (LAURA) 0.8 g/dL 0.7-1.3 [facility] C-reactive protein measureme nt by high sensitivity methodOrdered By: Jarrell Crystal on 11-19-2023 C-Reactive Protein Extended Range 21.60 mg/L High 0.0-3.0 [facility] Comment on above: C-Reactive Protein ( CRP) provides useful information for thediagnosis, therapy and monitoring of inflammatory processesand associated diseases. For the evaluation of Relative Riskfor Cardiovascular Disease, a High Sensitivity CRP (HSCRP)should be ordered. Centromere B antibody assayO rdered By: Jarrell Crystal on 11-19-2023 Centromere B Antibody <0.2 AI 0.0-0.9 [facility] Chitobioside IgA IA QnOrdere d By: Jarrell Crystal on 11-19-2023 Chitobioside Carbohydrat (ACCA) IgA 13 units 0-90 [facility] Comment on above: Negative: <80 Equivo urmila: 80-90 Positive: >90 Chitobioside IgA antibody as sayOrdered By: Jarrell Crystal on 11-19-2023 Chitobioside IgA IA Qn 13 units 0-90 [facility] Comment on above: Negative: <80 Equivo urmila: 80-90 Positive: >90 Chocolate IgE Qn (S)Ordered By: Jarrell Crystal on 11-19-2023 Chocolate Allergen (RAST) <0.10 kU/L Class 0 [facility] Chromatin antibody assayOrde red By: Jarrell Crystal on 11-19-2023 Antichromatin Antibodies <0.2 AI 0.0-0.9 [facility] Codfish IgE Qn (S)Ordered By : Jarrell Crystal on 11-19-2023 Codfish Allergen (RAST) <0.10 kU/L Class 0 [facility] [place] IgE Qn (S)Ordered By: Rose Mary Crystal on 11-19-2023 [place] Allergen (RAST) <0.10 kU/L Class 0 [facility] Cow milk IgE Qn (S)Ordered B y: Jarrell Crystal on 11-19-2023 Cow's Milk Allergen <0.10 kU/L Class 0 [facility] DNA double strand Ab Qn (S)O rdered By: Jarrell Crystal on 11-19-2023 Anti-Double Strand DNA Antibody 2 IU/mL 0-9 [facility] Comment on above: Negative <5 Equivoca l 5 - 9 Positive >9 Deamidated gliadin IgA antib emma assayOrdered By: Jarrell Crystal on 11-19-2023 Anti-Gliadin IgA Antibody 3 units 0-19 [facility] Comment on above: Negative 0 - 19 Weak Positive 20 - 30 Moderate to Strong Positive >30 Deamidated gliadin IgG antib emma assayOrdered By: Jarrell Crystal on 11-19-2023 Anti-Gliadin IgG Antibody 2 units 0-19 [facility] Comment on above: Negative 0 - 19 Weak Positive 20 - 30 Moderate to Strong Positive >30 Endomysial IgA antibody assa yOrdered By: Jarrell Crystal on 11-19-2023 Endomysial IgA Antibody Negative Negative [facility] Erythrocyte sedimentation ra teOrdered By: Jarrell Crystal on 11-19-2023 ESR (Bld) [Velocity] 33 mm/h High 0-30 [facility] Gamma globulin Elph [Mass/Vo l]Ordered By: Jarrell Crystal on 11-19-2023 Gamma Globulins (LAURA) 1.1 g/dL 0.4-1.8 [facility] IgA [Mass/Vol]Ordered By: Ra lisa Crystal on 11-19-2023 Immunoglobulin A 269 mg/dL 64-422 [facility] IgEOrdered By: Jarrell martinez on 11-19-2023 IgE 6 IU/mL 6-495 [facility] Immunoglobulin E 6 IU/mL 6-495 [facility] IgG [Mass/Vol]Ordered By: Ra lisa Crystal on 11-19-2023 Immunoglobulin G 1155 mg/dL 586-1602 [facility] Immunoglobulin M measurement Ordered By: Jarrell Crystal on 11-19-2023 Immunoglobulin M 97 mg/dL 26-217 [facility] Interpretation IEP [Interp]O rdered By: Jarrell Crystal on 11-19-2023 Immunofixation Screen Comment . [facility] Comment on above: No monoclonality det ected. Interpretation of serum or p lasma protein pattern by immunofixation (narrative resultOrdered By: Jarrell Crystal on 11-19-2023 Protein Fractions Immunofixation Vishnu [Interp] Not Observed g/dL Not Observed [facility] Sandra-1 antibody assayOrdered B y: Jarrell Crystal on 11-19-2023 SANDRA-1 Antibody <0.2 AI 0.0-0.9 [facility] - Miscellaneous t estsOrdered By: Jarrell Crystal on 11-19-2023 Laboratory comment Vishnu (Report) Comment . [facility] Comment on above: Pattern is not sugge stive of Inflammatory Bowel Disease Service comment (Unsp spec) [Interp] Comment . [facility] Comment on above: Levels of Specific I [...] on 11-19-2023 IBD Serology Comment Comment . [facility] Comment on above: Pattern is not sugge stive of Inflammatory Bowel Disease Laminaribioside IgG IA QnOrd ered By: Jarrell Crystal on 11-19-2023 Laminaribioside Carbohyd (ALCA) IgG 7 units 0-60 [facility] Comment on above: Negative:<55 Equivoc al: 55-60 Positive: >60 Laminaribioside carbohydrate IgG antibody assayOrdered By: Jarrell Crystal on 11-19-2023 Laminaribioside IgG IA Qn 7 units 0-60 [facility] Comment on above: Negative:<55 Equivoc al: 55-60 Positive: >60 Mannobioside IgG IA QnOrdere d By: Jarrell Crystal on 11-19-2023 Mannobioside Carbohydrat (AMCA) IgG 23 units 0-100 [facility] Comment on above: Negative: <90 Equivo urmila: 90-100 Positive: >100 This test was developed and its performance characteristics determined by [employer]. It has not been cleared or approved by the Food and Drug Administration. The FDA has determined that such clearance or approval is not necessary. Neutrophil cytoplasmic Ab.cl assic Qn (S)Ordered By: Jarrell Crystal on 11-19-2023 Cytoplasmic ANCA (c-ANCA) Antibody <1:20 titer Neg:<1:20 [facility] Neutrophil cytoplasmic Ab.pe rinuclear IF (S) [Titer]Ordered By: Jarrell Crystal on 11-19-2023 Perinuclear ANCA (p-ANCA) Antibody <1:20 titer Neg:<1:20 [facility] Comment on above: The presence of posi tive fluorescence exhibiting P-ANCA orC-ANCA patterns alone is not specific for the diagnosis ofWegener's Granulomatosis (WG) or microscopic polyangiitis.Decisions about treatment should not be based solely onANCA IFA results. The [employer] ANCA Group Consensusrecommends follow up testing of positive sera with both ND-3 and MPO-ANCA enzyme immunoassays. As many as 5% serumsamples are positive only by EIA. Ref. AM J Clin [id number];111:507-513. No Panel InformationOrdered By: Jarrell Crystal on 11-19-2023 Addendum Document Comment . [facility] Comment on above: Protein electrophore sis scan will follow via computer,mail, or granite sandblaster apprentice delivery. Tissue Transglutaminase IgG Ab 4 U/mL 0-5 [facility] Comment on above: Negative 0 - 5 Weak Positive 6 - 9 Positive >9 Peanut IgE Qn (S)Ordered By: Jarrell Crystal on 11-19-2023 Peanut Allergen (RAST) <0.10 kU/L Class 0 [facility] Pork IgE Qn (S)Ordered By: Rose Mary Crystal on 11-19-2023 Pork Allergen (RAST) <0.10 kU/L Class 0 [facility] Protein Fractions Immunofixa tion Vishnu [Interp]Ordered By: Jarrell Crystal on 11-19-2023 M-Shady (LAURA) Not Observed g/dL Not Observed [facility] BUSINESS ANALYSIS ANALYST abOrdered By: Jarrell Ng iend on 11-19-2023 BUSINESS ANALYSIS ANALYST Antibody <0.2 AI 0.0-0.9 [facility] SCL-70 extractable nuclear A b Qn (S)Ordered By: Jarrell Crystal on 11-19-2023 Scl-70 (Scleroderma) Antibody <0.2 AI 0.0-0.9 [facility] SS-A IgG antibody assayOrder ed By: Jarrell Crystal on 11-19-2023 SS-A/Ro IgG Antibody < 0.2 AI 0.0-0.9 [facility] SS-B IgG antibody assayOrder ed By: Jarrell Crystal on 11-19-2023 SS-B/La IgG Antibody < 0.2 AI 0.0-0.9 [facility] [place] IgE Qn (S)Ordered By: Jarrell Crystal on 11-19-2023 [place] Allergen IgE Antibody <0.10 kU/L Class 0 [facility] Serum DNA double strand anti body assay (units/volume)Ordered By: Jarrell Crystal on 11-19-2023 DNA double strand Ab Qn (S) 2 [IU]/mL 0-9 [facility] Comment on above: Negative <5 Equivoca l 5 - 9 Positive >9 Serum Scl-70 antibody assay (units/volume)Ordered By: Jarrell Crystal on 11-19-2023 SCL-70 extractable nuclear Ab Qn (S) <0.2 AI 0.0-0.9 [facility] Serum albumin/globulin ratio Ordered By: Jarrell Crystal on 11-19-2023 Albumin/Globulin (LAURA) 0.7 0.7-1.7 [facility] Serum beef IgE antibody assa y (units/volume)Ordered By: Jarrell Crystal on 11-19-2023 Beef IgE Qn (S) <0.10 kU/L Class 0 [facility] Serum classic neutrophil cyt oplasmic antibody assay (units/volume)Ordered By: Jarrell Crystal on 11-19-2023 Neutrophil cytoplasmic Ab.classic Qn (S) <1:20 titer Neg:<1:20 [facility] Serum codfish IgE antibody a ssay (units/volume)Ordered By: Jarrell Crystal on 11-19-2023 Codfish IgE Qn (S) <0.10 kU/L Class 0 [facility] Serum corn IgE antibody assa y (units/volume)Ordered By: Jarrell Crystal on 11-19-2023 [place] IgE Qn (S) <0.10 kU/L Class 0 [facility] Serum cow milk IgE antibody assay (units/volume)Ordered By: Jarrell Crystal on 11-19-2023 Cow milk IgE Qn (S) <0.10 kU/L Class 0 [facility] Serum mussel specific IgE an tibody assayOrdered By: Jarrell Crystal on 11-19-2023 Mussel Allergen IgE Antibody <0.10 kU/L Class 0 [facility] Serum or plasma IgA measurem ent (mass/volume)Ordered By: Jarrell Crystal on 11-19-2023 IgA [Mass/Vol] 269 mg/dL 64-422 [facility] Serum or plasma IgG measurem ent (mass/volume)Ordered By: Jarrell Crystal on 11-19-2023 IgG [Mass/Vol] 1155 mg/dL 586-1602 [facility] Serum or plasma alpha 1 glob ulin measurement by electrophoresis (mass/volume)Ordered By: Jarrell Crystal on 11-19-2023 Alpha 1 globulin Elph [Mass/Vol] 0.3 g/dL 0.0-0.4 [facility] Alpha 1 globulin Elph [Mass/Vol] 1.1 g/dL High 0.4-1.0 [facility] Serum or plasma beta globuli n measurement by electrophoresis (mass/volume)Ordered By: Jarrell Crystal on 11-19-2023 Beta globulin Elph [Mass/Vol] 0.8 g/dL 0.7-1.3 [facility] Serum or plasma gamma globul in measurement by electrophoresis (mass/volume)Ordered By: Jarrell Crystal on 11-19-2023 Gamma globulin Elph [Mass/Vol] 1.1 g/dL 0.4-1.8 [facility] Serum or plasma immunoelectr ophoresis interpretation (nominal result)Ordered By: Jarrell Crystal on 11-19-2023 Interpretation IEP [Interp] Comment . [facility] Comment on above: No monoclonality det ected. Serum or plasma mannobioside IgG antibody assay by immunoassay (units/volume)Ordered By: Jarrell Crystal on 11-19-2023 Mannobioside IgG IA Qn 23 units 0-100 [facility] Comment on above: Negative: <90 Equivo urmila: 90-100 Positive: >100 This test was developed and its performance characteristics determined by [employer]. It has not been cleared or approved by the Food and Drug Administration. The FDA has determined that such clearance or approval is not necessary. Serum or plasma protein pj urement (mass/volume)Ordered By: Jarrell Crsytal on 11-19-2023 Protein [Mass/Vol] 5.3 g/dL Low 6.0-8.5 [facility] Serum peanut IgE antibody as say (units/volume)Ordered By: Jarrell Crystal on 11-19-2023 Peanut IgE Qn (S) <0.10 kU/L Class 0 [facility] Serum perinuclear neutrophil cytoplasmic antibody titer by immunofluorescenceOrdered By: Jarrell Crystal on 11-19-2023 Neutrophil cytoplasmic Ab.perinuclear IF (S) [Titer] <1:20 titer Neg:<1:20 [facility] Comment on above: The presence of posi tive fluorescence exhibiting P-ANCA orC-ANCA patterns alone is not specific for the diagnosis ofWegener's Granulomatosis (WG) or microscopic polyangiitis.Decisions about treatment should not be based solely onANCA IFA results. The [employer] ANCA Group Consensusrecommends follow up testing of positive sera with both ND-3 and MPO-ANCA enzyme immunoassays. As many as 5% serumsamples are positive only by EIA. Ref. AM J Clin Hlowen9029;111:507-513. Serum pork IgE antibody assa y (units/volume)Ordered By: Jarrell Crystal on 11-19-2023 Pork IgE Qn (S) <0.10 kU/L Class 0 [facility] Serum salmon IgE antibody as say (units/volume)Ordered By: Jarrell Crystal on 11-19-2023 [place] IgE Qn (S) <0.10 kU/L Class 0 [facility] Serum shrimp specific IgE an tibody assayOrdered By: Jarrell Crystal on 11-19-2023 Shrimp Allergen <0.10 kU/L Class 0 [facility] Serum soybean IgE antibody a ssay (units/volume)Ordered By: Jarrell Crystal on 11-19-2023 Soybean IgE Qn (S) <0.10 kU/L Class 0 [facility] Serum tissue transglutaminas e (tTG) IgA antibody assay (units/volume)Ordered By: Jarrell Crystal on 11-19-2023 tTG IgA Qn (S) <2 U/mL 0-3 [facility] Comment on above: Negative 0 - 3 Weak Positive 4 - 10 Positive >10 Tissue Transglutaminase (tTG) has been identified as the endomysial antigen. Studies have demonstr- ated that endomysial IgA antibodies have over 99% specificity for gluten sensitive enteropathy. Serum tuna IgE antibody assa y (units/volume)Ordered By: Jarrell Crystal on 11-19-2023 Tuna IgE Qn (S) <0.10 kU/L Class 0 [facility] Serum wheat IgE antibody ass ay (units/volume)Ordered By: Jarrell Crystal on 11-19-2023 Wheat IgE Qn (S) <0.10 kU/L Class 0 [facility] Serum whole egg IgE antibody assay (units/volume)Ordered By: Jarrell Crystal on 11-19-2023 Whole Egg IgE Qn (S) <0.10 kU/L Class 0 [facility] Comment on above: Performed at: - [facility] [address] [id number] Director: Flako Araujo PhD, Phone: [phone] at: [facility] [id number] Director: Chary Cox MD, Phone: [phone] Service comment (Unsp spec) [Interp]Ordered By: Jarrell Crystal on 11-19-2023 RAST Comment Comment . [facility] Comment on above: Levels of Specific I [...] on 11-19-2023 SM Antibody <0.2 AI 0.0-0.9 [facility] Soybean IgE Qn (S)Ordered By : Jarrell Crystal on 11-19-2023 Soybean Allergen (RAST) <0.10 kU/L Class [address] [facility] Tuna IgE Qn (S)Ordered By: Rose Mary Crystal on 11-19-2023 Tuna Allergen (RAST) <0.10 kU/L Class 0 [facility] Wheat IgE Qn (S)Ordered By: Jarrell Crystal on 11-19-2023 Wheat Allergen (RAST) <0.10 kU/L Class [address] [facility] Whole Egg IgE Qn (S)Ordered By: Jarrell Crystal on 11-19-2023 Egg Whole Allergen <0.10 kU/L Class 0 [facility] Comment on above: Performed at: - [facility] [id number] [place], [place] [id number] Director: Flako Araujo PhD, Phone: [phone] at: - [facility] [id number] Director: Chary Cox MD, Phone: [phone] tTG IgA Qn (S)Ordered By: Ra lisa Crystal on 11-19-2023 Tissue Transglutaminase IgA Ab <2 U/mL 0-3 [facility] Comment on above: Negative 0 - 3 Weak Positive 4 - 10 Positive >10 Tissue Transglutaminase (tTG) has been identified as the endomysial antigen. Studies have demonstr- ated that endomysial IgA antibodies have over 99% specificity for gluten sensitive enteropathy. C. difficile DNA MARCIA+probe Q l (Unsp spec)Ordered By: Maco Singh on 09-26-2023 Clostridioides difficile (PCR) [facility] Calprotectin stoolOrdered By : Maco Singh on 09-26-2023 Calprotectin stool 1110 ug/g High 0-120 [facility] Comment on above: Results verified b y repeat testingConcentration Interpretation Follow-Up< 5 - 50 ug/g Normal None>50 -120 ug/g Borderline Re-evaluate in 4-6 weeks >120 ug/g Abnormal Repeat as clinically indicatedPerformed at: - [facility] [id number] Director: Chary Cox MD, Phone: [phone] Stool Calprotectin 1110 ug/g High 0-120 [facility] Comment on above: Results verified b y repeat testingConcentration Interpretation Follow-Up< 5 - 50 ug/g Normal None>50 -120 ug/g Borderline Re-evaluate in 4-6 weeks >120 ug/g Abnormal Repeat as clinically indicatedPerformed at: - [facility] [id number] Director: Chary Cox MD, Phone: [phone] Clostridium difficile detect ion by polymerase chain reactionOrdered By: Maco Singh on 09-26-2023 C. difficile DNA MARCIA+probe Ql (Unsp spec) [facility] Lactoferrin IA Ql (Stl)Order ed By: Maco Singh on 09-26-2023 Stool Lactoferrin [facility] Lower GI hemoglobin IA Ql (S tl)Ordered By: Maco Singh on 09-26-2023 Stool Occult Blood (SU) Positive Abnormal [facility] Ova and parasitesOrdered By: Maco Singh on 09-26-2023 Ova and Parasites [facility] Stool gastrointestinal hemog lobin detection by immunologic methodOrdered By: Maco Singh on 09-26-2023 Lower GI hemoglobin IA Ql (Stl) Positive Abnormal [facility] Stool lactoferrin detection by immunoassayOrdered By: Maco Singh on 09-26-2023 Lactoferrin IA Ql (Stl) [facility] Blood band neutrophil count as percentage of total leukocytesOrdered By: Maco Singh on 09-24-2023 Band form neutrophils/100 WBC (Bld) 11 % High 0-5 [facility] Blood basophils/100 leukocyt esOrdered By: Maco Singh on 09-24-2023 Basophils/100 WBC (Bld) 2 % High 0-1 [facility] Blood eosinophils/100 leukoc ytesOrdered By: Maco Singh on 09-24-2023 Eosinophils/100 WBC (Bld) 13 % High 0-5 [facility] Blood lymphocytes/100 leukoc ytesOrdered By: Maco Singh on 09-24-2023 Lymphocytes/100 WBC (Bld) 24 % 19-41 [facility] Blood metamyelocytes/100 jerald kocytesOrdered By: Maco Singh on 09-24-2023 Metamyelocytes/100 WBC (Bld) 3 % High 0-1 [facility] Blood monocytes/100 leukocyt esOrdered By: Maco Singh on 09-24-2023 Monocytes/100 WBC (Bld) 14 % High 0-10 [facility] Blood promyelocytes/100 leuk ocytesOrdered By: Maco Singh on 09-24-2023 Promyelocytes/100 WBC (Bld) 1 % High 0-0 [facility] Blood segmented neutrophils/ 100 leukocytesOrdered By: Maco Singh on 09-24-2023 Segmented neutrophils/100 WBC (Bld) 32 % Low 47-70 [facility] Cells counted Molgen (Bld/Ti ss) [#]Ordered By: Maco Singh on 09-24-2023 Differential Total Cells Counted 100 MANUAL DIFF [facility] Erythrocyte morphology asses smentOrdered By: Maco Singh on 09-24-2023 RBC morphology finding Nom (Bld) NORM C+C NORMAL NORM C&C [facility] Pathologist review Vishnu (Unsp spec) [Interp]Ordered By: Maco Singh on 09-24-2023 Differential Pathologist's Review Reviewed [facility] Comment on above: Previous reported re sult: Kelle suggs Edited by: VADIM on 09/25/23:1528Neutrophilic left shift.MICROCYTOSISClinical correlation necessary.Charles Steinberg M.D. 09/25/23 AMENDED REPORT 09/25/23 1528 PATH REV previously reported as: Kelle suggs Platelet estimateOrdered By: Maco Singh on 09-24-2023 Platelets LM Ql (Bld) ADEQUATE ADEQ [facility] Platelets LM Ql (Bld)Ordered By: Maco Singh on 09-24-2023 Platelet Estimate ADEQUATE [facility] Promyelocytes/100 WBC (Bld)O rdered By: Maco Singh on 09-24-2023 Promyelocytes % 1 % High 0-0 [facility] RBC morphology finding Nom ( Bld)Ordered By: Maco Singh on 09-24-2023 Red Blood Cell Morphology NORM C+C NORMAL NORM C&C [facility] Review by pathologistOrdered By: Maco Singh on 09-24-2023 Pathologist review Vishnu (Unsp spec) [Interp] Reviewed [facility] Comment on above: Previous reported re sult: Kelle suggs Edited by: VADIM on 09/25/23:1528Neutrophilic left shift.MICROCYTOSISClinical correlation necessary.Charles Steinberg M.D. 09/25/23 AMENDED REPORT 09/25/23 1528 PATH REV previously reported as: Kelle suggs Segmented neutrophils/100 WB C (Bld)Ordered By: Maco Singh on 09-24-2023 Neutrophils/100 WBC (Bld) 32 % Low 47-70 [facility] Total cell countOrdered By: Maco Singh on 09-24-2023 Cells counted [employer] (Bld/Tiss) [#] 100 MANUAL DIFF [facility] Basophil percentageOrdered B y: Flako Chavarria on 04-11-2023 Hemoglobin (Bld) [Mass/Vol] 11.0 g/dL 12.0-15.0 [facility] WBC (Bld) [#/Vol] 8.9 10*3/uL 4.4-11.0 [facility] Determination of erythrocyte mean corpuscular volume (MCV)Ordered By: Flako Chavarria on 04-11-2023 MCV (RBC) [Entitic vol] 78.2 fL 81-99 [facility] Erythrocyte distribution wid th ratioOrdered By: Flako Chavarria on 04-11-2023 Erythrocyte distribution width (RBC) [Ratio] 19.3 % 11.6-14.6 [facility] Erythrocyte distribution wid th standard deviationOrdered By: Flako Chavarria on 04-11-2023 Erythrocyte distribution width (RBC) [Entitic vol] 53.8 fL 35.1-43.9 [facility] Hematocrit Auto (Bld) [Volum e fraction]Ordered By: Flako Chavarria on 04-11-2023 Hematocrit (Bld) [Volume fraction] 37.3 % 37-47 [facility] Laboratory - Chemistry and C hemistry - challengeOrdered By: Flako Chavarria on 04-11-2023 Ferritin [Mass/Vol] 39 ng/mL 8-252 [facility] Laboratory - Hematology and Cell countsOrdered By: Flako Chavarria on 04-11-2023 MCH (RBC) [Entitic mass] 23.1 pg 27.0-32.0 [facility] MCHC (RBC) [Mass/Vol] 29.5 g/dL 32-36 [facility] Platelet mean volume (Bld) [Entitic vol] 11.0 fL 6.2-12.0 [facility] Platelets (Bld) [#/Vol] 356 10*3/uL 150-450 [facility] No Panel InformationOrdered By: Flako Chavarria on 04-11-2023 Endomysial IgA Antibody Negative Negative [facility] Tissue Transglutaminase IgG Ab Not Reportable [facility] RBC Auto (Bld) [#/Vol]Ordere d By: Flako Chavarria on 04-11-2023 RBC (Bld) [#/Vol] 4.77 10*6/uL 4.2-5.4 [facility] Serum or plasma IgA measurem ent (mass/volume)Ordered By: Flako Chavarria on 04-11-2023 IgA [Mass/Vol] 183 mg/dL 64-422 [facility] Comment on above: Performed at: [facility] [place] [id number] Director: Flako Araujo PhD, Phone: [phone] Serum tissue transglutaminas e IgA antibody assay (units/volume)Ordered By: Flako Chavarria on 04-11-2023 tTG IgA Qn (S) <2 U/mL 0-3 [facility] Comment on above: Negative 0 - 3 Weak Positive 4 - 10 Positive >10 Tissue Transglutaminase (tTG) has been identified as the endomysial antigen. Studies have demonstr- ated that endomysial IgA antibodies have over 99% specificity for gluten sensitive enteropathy. Absolute lymphocyte countOrd ered By: Maco Singh on 03-21-2023 Lymphocytes Auto (Unsp spec) [#/Vol] 1.27 10*3/uL 0.83-4.51 [facility] Automated lymphocyte count a s percentage of total leukocytesOrdered By: Maco Singh on 03-21-2023 Lymphocytes/100 WBC Auto (Unsp spec) 12.3 % 19-41 [facility] Basophil percentageOrdered B y: Maco Singh on 03-21-2023 Basophils/100 WBC (Bld) 0.6 % 0-1 [facility] Bilirubin [Mass/Vol] 0.20 mg/dL 0.20-1.00 [facility] Comment on above: For patients on eltr ombopag therapy, use of Dimension [place] TBIL is not recommended. Chloride [Moles/Vol] 117 mmol/L 98-107 [facility] Eosinophils/100 WBC (Bld) 8.9 % 0-5 [facility] Glucose [Mass/Vol] 90 mg/dL 74-106 [facility] Hemoglobin (Bld) [Mass/Vol] 9.9 g/dL 12.0-15.0 [facility] LDH [Catalytic activity/Vol] 193 U/L 84-246 [facility] Monocytes/100 WBC (Bld) 7.6 % 0-10 [facility] Neutrophils (Bld) [#/Vol] 7.2 10*3/uL 2.0-7.7 [facility] Neutrophils/100 WBC (Bld) 69.9 % 47-70 [facility] Potassium [Moles/Vol] 3.8 mmol/L 3.5-5.1 [facility] Protein [Mass/Vol] 6.9 g/dL 6.4-8.2 [facility] Sodium [Moles/Vol] 144 mmol/L 136-145 [facility] WBC (Bld) [#/Vol] 10.4 10*3/uL 4.4-11.0 [facility] C. difficile DNA MARCIA+probe Q l (Unsp spec)Ordered By: Maco Snigh on 03-21-2023 Clostridioides difficile (PCR) [facility] Clostridioides difficile nuc leic acid assay by PCROrdered By: Maco Singh on 03-21-2023 C. difficile DNA MARCIA+probe Ql (Unsp spec) [facility] Determination of erythrocyte mean corpuscular volume (MCV)Ordered By: Maco Signh on 03-21-2023 MCV (RBC) [Entitic vol] 76.8 fL 81-99 [facility] Erythrocyte distribution wid th ratioOrdered By: Maco Singh on 03-21-2023 Erythrocyte distribution width (RBC) [Ratio] 18.2 % 11.6-14.6 [facility] Erythrocyte distribution wid th standard deviationOrdered By: Maco Singh on 03-21-2023 Erythrocyte distribution width (RBC) [Entitic vol] 48.3 fL 35.1-43.9 [facility] Erythrocyte sedimentation ra teOrdered By: Maco Singh on 03-21-2023 ESR (Bld) [Velocity] 34 mm/h 0-30 [facility] Hematocrit Auto (Bld) [Volum e fraction]Ordered By: Maco Singh on 03-21-2023 Hematocrit (Bld) [Volume fraction] 33.7 % 37-47 [facility] Hemoglobin (Reticulocytes) [ Entitic mass]Ordered By: Maco Singh on 03-21-2023 Reticulocyte Hemoglobin Equivalent 26.4 pg Low 30-35 [facility] Hemoglobin in reticulocytes (mass per reticulocyte)Ordered By: Maco Singh on 03-21-2023 Hemoglobin (Reticulocytes) [Entitic mass] 26.4 pg 30-35 [facility] Immature granulocytes/100 WB C Auto (Bld)Ordered By: Maco Singh on 03-21-2023 Immature granulocytes/100 WBC (Bld) 0.700 % 0.0-0.9 [facility] Comment on above: IG% - Immature Granu locytes (promyelocytes, myelocytes and metamyelocytes) > 1% indicates that a LEFT SHIFT is Present. Iron measurement (mass/mass) Ordered By: Maco Singh on 03-21-2023 Iron (Unsp spec) [Mass/Mass] 41 ug/dL 50-170 [facility] Laboratory - Chemistry and C hemistry - challengeOrdered By: Maco Singh on 03-21-2023 Albumin/Globulin [Mass ratio] 0.8 {ratio} 0.9-2.4 [facility] ALP [Catalytic activity/Vol] 94 U/L 45-117 [facility] ALT [Catalytic activity/Vol] 23 U/L 13-56 [facility] CO2 [Moles/Vol] 24.0 mmol/L 21.0-32.0 [facility] Cobalamin (Vitamin B12) [Mass/Vol] 771 pg/mL 211-911 [facility] Ferritin [Mass/Vol] 100 ng/mL 8-252 [facility] Globulin (S) [Mass/Vol] 3.9 g/dL 2.2-4.2 [facility] Urea nitrogen/Creatinine [Mass ratio] 25.7 mg/mg 10-20 [facility] Laboratory - Hematology and Cell countsOrdered By: Maco Singh on 03-21-2023 MCH (RBC) [Entitic mass] 22.6 pg 27.0-32.0 [facility] MCHC (RBC) [Mass/Vol] 29.4 g/dL 32-36 [facility] Nucleated RBC/100 WBC (Bld) [Ratio] 0 % 0-5 [facility] Platelet mean volume (Bld) [Entitic vol] 10.2 fL 6.2-12.0 [facility] Platelets (Bld) [#/Vol] 429 10*3/uL 150-450 [facility] Lactoferrin IA Ql (Stl)Order ed By: Maco Singh on 03-21-2023 Stool Lactoferrin [facility] No Panel InformationOrdered By: Maco Singh on 03-21-2023 Stool Calprotectin 129 ug/g 0-120 [facility] Comment on above: Concentration Interp retation Follow-Up< 5 - 50 ug/g Normal None>50 -120 ug/g Borderline Re-evaluate in 4-6 weeks >120 ug/g Abnormal Repeat as clinically indicatedPerformed at: [facility] [address] [id number] Director: Chary Cox MD, Phone: [phone] C-Reactive Protein Extended Range < 2.90 mg/L 0.0-3.0 [facility] Comment on above: C-Reactive Protein ( CRP) provides useful information for thediagnosis, therapy and monitoring of inflammatory processesand associated diseases. For the evaluation of Relative Riskfor Cardiovascular Disease, a High Sensitivity CRP (HSCRP)should be ordered. Estimated GFR (MDRD) Amer 120 mL/min >60 [facility] Comment on above: GFR Calc Estimated GFR (MDRD) Non-Af Amer 99 mL/min >60 [facility] Comment on above: Non- GFR Calc Immature Reticulocyte Fraction 15.10 % 3.00-15.90 [facility] Total Iron Binding Capacity 295 ug/dL 250-450 [facility] Miscellaneous Test Comment SEE SCANNED REPORT [facility] RBC Auto (Bld) [#/Vol]Ordere d By: Maco Singh on 03-21-2023 RBC (Bld) [#/Vol] 4.39 10*6/uL 4.2-5.4 [facility] Reticulocytes Auto (Bld) [#/ Vol]Ordered By: Maco Singh on 03-21-2023 Reticulocyte Count 2.31 % High 0.5-1.5 [facility] Reticulocytes/100 RBC (Bld) 2.31 % 0.5-1.5 [facility] Serum or plasma calcium pj urement (mass/volume)Ordered By: Maco Singh on 03-21-2023 Calcium [Mass/Vol] 9.0 mg/dL 8.5-10.1 [facility] Serum or plasma carcinoembry onic antigen measurement (mass/volume)Ordered By: Maco Singh on 03-21-2023 Carcinoembryonic Ag [Mass/Vol] 3.9 ng/mL 0.0-4.7 [facility] Comment on above: Nonsmokers <3.9 Smok ers <5.6[employer] Electrochemiluminescence Immunoassay(ECLIA)Values obtained with different assay methods or kitscannot be used interchangeably. Results cannot beinterpreted as absolute evidence of the presence orabsence of malignant disease.Performed at: [facility] [id number] Director: Flako Araujo PhD, Phone: [phone] Serum or plasma creatinine m easurement (mass/volume)Ordered By: Maco Singh on 03-21-2023 Creatinine [Mass/Vol] 0.62 mg/dL 0.55-1.02 [facility] Comment on above: The validity of the calculated GFR & GFRAA in patients over 70 years has not been determined. Clinical correlation is essential. Serum or plasma iron saturat ion measurement (mass fraction)Ordered By: Maco Singh on 03-21-2023 Iron saturation [Mass fraction] 13.9 % 15.0-55.0 [facility] Serum or plasma urea nitroge n measurement (mass/volume)Ordered By: Maco Singh on 03-21-2023 Urea nitrogen [Mass/Vol] 16 mg/dL 7-18 [facility] Stool lactoferrin detection by immunoassayOrdered By: Maco Singh on 03-21-2023 Lactoferrin IA Ql (Stl) [facility] Lactoferrin IA Ql (Stl) [facility] Thin prep Papanicolaou smear with manual screeningOrdered By: Maco Singh on 03-21-2023 Thin prep Papanicolaou smear with manual screening 3.0 g/dL 3.2-5.0 [facility] Thin prep Papanicolaou smear with manual screening 41 U/L 15-37 [facility] Thin prep Papanicolaou smear with manual screening 3 5-15 [facility] Absolute lymphocyte countOrd ered By: Richard Mckenzie on 03-15-2023 Lymphocytes Auto (Unsp spec) [#/Vol] 1.65 10*3/uL 0.83-4.51 [facility] Automated lymphocyte count a s percentage of total leukocytesOrdered By: Richard Mckenzie on 03-15-2023 Lymphocytes/100 WBC Auto (Unsp spec) 11.2 % 19-41 [facility] Basophil percentageOrdered B y: Richard Mckenzie on 03-15-2023 Basophils/100 WBC (Bld) 0.5 % 0-1 [facility] Eosinophils/100 WBC (Bld) 7.3 % 0-5 [facility] Hemoglobin (Bld) [Mass/Vol] 10.0 g/dL 12.0-15.0 [facility] Monocytes/100 WBC (Bld) 6.7 % 0-10 [facility] Neutrophils (Bld) [#/Vol] 10.7 10*3/uL 2.0-7.7 [facility] Neutrophils/100 WBC (Bld) 72.9 % 47-70 [facility] WBC (Bld) [#/Vol] 14.7 10*3/uL 4.4-11.0 [facility] Determination of erythrocyte mean corpuscular volume (MCV)Ordered By: Richard Mckenzie on 03-15-2023 MCV (RBC) [Entitic vol] 75.8 fL 81-99 [facility] Erythrocyte distribution wid th ratioOrdered By: Richard Mckenzie on 03-15-2023 Erythrocyte distribution width (RBC) [Ratio] 16.2 % 11.6-14.6 [facility] Erythrocyte distribution wid th standard deviationOrdered By: Richard Mckenzie on 03-15-2023 Erythrocyte distribution width (RBC) [Entitic vol] 41.7 fL 35.1-43.9 [facility] Hematocrit Auto (Bld) [Volum e fraction]Ordered By: Richard Mckenzie on 03-15-2023 Hematocrit (Bld) [Volume fraction] 34.4 % 37-47 [facility] Immature granulocytes/100 WB C Auto (Bld)Ordered By: Richard Mckenzie on 03-15-2023 Immature granulocytes/100 WBC (Bld) 1.400 % 0.0-0.9 [facility] Comment on above: IG% - Immature Granu locytes (promyelocytes, myelocytes and metamyelocytes) > 1% indicates that a LEFT SHIFT is Present. Laboratory - Hematology and Cell countsOrdered By: Richard Mckenzie on 03-15-2023 MCH (RBC) [Entitic mass] 22.0 pg 27.0-32.0 [facility] MCHC (RBC) [Mass/Vol] 29.1 g/dL 32-36 [facility] Nucleated RBC/100 WBC (Bld) [Ratio] 0 % 0-5 [facility] Platelets (Bld) [#/Vol] 625 10*3/uL 150-450 [facility] Platelet mean volume Augie-Ec ker (Bld) [Entitic vol]Ordered By: Richard Mckenzie on 03-15-2023 Platelet mean volume (Bld) [Entitic vol] 9.1 fL 6.2-12.0 [facility] RBC Auto (Bld) [#/Vol]Ordere d By: Richard Mckenzie on 03-15-2023 RBC (Bld) [#/Vol] 4.54 10*6/uL 4.2-5.4 [facility] Absolute lymphocyte countOrd ered By: Richard Mckenzie on 03-11-2023 Lymphocytes Auto (Unsp spec) [#/Vol] 1.55 10*3/uL 0.83-4.51 [facility] Automated lymphocyte count a s percentage of total leukocytesOrdered By: Richard Mckenzie on 03-11-2023 Lymphocytes/100 WBC Auto (Unsp spec) 14.9 % 19-41 [facility] Basophil percentageOrdered B y: Richard Mckenzie on 03-11-2023 Basophils/100 WBC (Bld) 0.6 % 0-1 [facility] Eosinophils/100 WBC (Bld) 8.1 % 0-5 [facility] Hemoglobin (Bld) [Mass/Vol] 7.9 g/dL 12.0-15.0 [facility] Monocytes/100 WBC (Bld) 7.2 % 0-10 [facility] Neutrophils (Bld) [#/Vol] 6.8 10*3/uL 2.0-7.7 [facility] Neutrophils/100 WBC (Bld) 65.5 % 47-70 [facility] WBC (Bld) [#/Vol] 10.4 10*3/uL 4.4-11.0 [facility] Chloride [Moles/Vol] 114 mmol/L 98-107 [facility] Glucose [Mass/Vol] 119 mg/dL 74-106 [facility] Comment on above: Fasting Glucose resu lt from 100 to 125 mg/dL suggests IMPAIRED HOMEOSTASIS per A.D.A. criteria. Potassium [Moles/Vol] 4.1 mmol/L 3.5-5.1 [facility] Comment on above: Slight Hemolysis, Re sult may be falsely increased. Sodium [Moles/Vol] 141 mmol/L 136-145 [facility] Determination of erythrocyte mean corpuscular volume (MCV)Ordered By: Richard Mckenzie on 03-11-2023 MCV (RBC) [Entitic vol] 75.4 fL 81-99 [facility] Erythrocyte distribution wid th ratioOrdered By: Richard Mckenzie on 03-11-2023 Erythrocyte distribution width (RBC) [Ratio] 14.0 % 11.6-14.6 [facility] Erythrocyte distribution wid th standard deviationOrdered By: Richard Mckenzie on 03-11-2023 Erythrocyte distribution width (RBC) [Entitic vol] 38.1 fL 35.1-43.9 [facility] Hematocrit Auto (Bld) [Volum e fraction]Ordered By: Richard Mckenzie on 03-11-2023 Hematocrit (Bld) [Volume fraction] 27.0 % 37-47 [facility] Immature granulocytes/100 WB C Auto (Bld)Ordered By: Richard Mckenzie on 03-11-2023 Immature granulocytes/100 WBC (Bld) 3.700 % 0.0-0.9 [facility] Comment on above: IG% - Immature Granu locytes (promyelocytes, myelocytes and metamyelocytes) > 1% indicates that a LEFT SHIFT is Present. Laboratory - Chemistry and C hemistry - challengeOrdered By: Richard Mckenzie on 03-11-2023 CO2 [Moles/Vol] 24.0 mmol/L 21.0-32.0 [facility] Urea nitrogen/Creatinine [Mass ratio] 46.3 mg/mg 10-20 [facility] Laboratory - Hematology and Cell countsOrdered By: Richard Mckenzie on 03-11-2023 MCH (RBC) [Entitic mass] 22.1 pg 27.0-32.0 [facility] MCHC (RBC) [Mass/Vol] 29.3 g/dL 32-36 [facility] Nucleated RBC/100 WBC (Bld) [Ratio] 0.2 % 0-5 [facility] Platelets (Bld) [#/Vol] 527 10*3/uL 150-450 [facility] No Panel InformationOrdered By: Richard Mckenzie on 03-11-2023 Estimated Creatinine Clearance Calc 60.60 ml/min [facility] Estimated GFR (MDRD) Amer 173 mL/min >60 [facility] Comment on above: GFR Calc Estimated GFR (MDRD) Non-Af Amer 143 mL/min >60 [facility] Comment on above: Non- GFR Calc Platelet mean volume Augie-Ec ker (Bld) [Entitic vol]Ordered By: Richard Mckenzie on 03-11-2023 Platelet mean volume (Bld) [Entitic vol] 9.5 fL 6.2-12.0 [facility] RBC Auto (Bld) [#/Vol]Ordere d By: Richard Mckenzie on 03-11-2023 RBC (Bld) [#/Vol] 3.58 10*6/uL 4.2-5.4 [facility] Serum or plasma calcium pj urement (mass/volume)Ordered By: Richard Mckenzie on 03-11-2023 Calcium [Mass/Vol] 8.5 mg/dL 8.5-10.1 [facility] Serum or plasma creatinine m easurement (mass/volume)Ordered By: Richard Mckenzie on 03-11-2023 Creatinine [Mass/Vol] 0.45 mg/dL 0.55-1.02 [facility] Comment on above: The validity of the calculated GFR & GFRAA in patients over 70 years has not been determined. Clinical correlation is essential. Serum or plasma urea nitroge n measurement (mass/volume)Ordered By: Richard Mckenzie on 03-11-2023 Urea nitrogen [Mass/Vol] 21 mg/dL 7-18 [facility] Thin prep Papanicolaou smear with manual screeningOrdered By: Santosh Ballard on 03-11-2023 Thin prep Papanicolaou smear with manual screening 155 mg/dL 74-106 [facility] Comment on above: MANAGEMENT OF PATIEN T CARE PER NURSING PROTOCOL Thin prep Papanicolaou smear with manual screeningOrdered By: Richard Mckenzie on 03-11-2023 Thin prep Papanicolaou smear with manual screening 3 5-15 [facility] Basophil percentageOrdered B y: Jameson Snell on 03-10-2023 Basophil percentage 3.3 mg/dL 2.5-4.9 [facility] Laboratory - Chemistry and C hemistry - challengeOrdered By: Jameson Snell on 03-10-2023 Magnesium [Mass/Vol] 2.0 mg/dL 1.6-2.6 [facility] Bacteria identified Anaer cx Nom (Unsp spec)Ordered By: Santosh Ballard on 03-06-2023 Anaerobic Culture Clostridium perfringens [facility] Anaerobic Culture Bacteroides thetaiotaomicron [facility] Anaerobic Culture [facility] Anaerobic Culture Bacteroides thetaiotaomicron [facility] Bacteria identified Cx Nom ( Wound)Ordered By: Santosh Ballard on 03-06-2023 Wound Culture Escherichia coli [facility] Wound Culture Escherichia coli#2 [facility] Wound Culture Escherichia coli [facility] Wound Culture Escherichia coli#2 [facility] Cytology report of Body flui d Cyto stainOrdered By: Santosh Ballard on 03-06-2023 Cytology report Cyto stain Doc (Body fld) SEE PATHOLOGY REPORT [facility] Comment on above: Specimen submitted t o Anatomical Pathology Department for testing. Gram stain for investigation of transfusion reactionOrdered By: Santosh Ballard on 03-06-2023 Microscopic observation Gram stain Nom (Unsp spec) [facility] Microscopic observation Gram stain Nom (Unsp spec) [facility] Serum or plasma carcinoembry onic antigen measurement (mass/volume)Ordered By: Santosh Ballard on 03-06-2023 Carcinoembryonic Ag [Mass/Vol] 5.0 ng/mL 0.0-4.7 [facility] Comment on above: Nonsmokers <3.9 Smok ers <5.6[employer] Electrochemiluminescence Immunoassay(ECLIA)Values obtained with different assay methods or kitscannot be used interchangeably. Results cannot beinterpreted as absolute evidence of the presence orabsence of malignant disease.Performed at: [facility] [id number] Director: Flako Araujo PhD, Phone: [phone] Absolute lymphocyte countOrd ered By: Stas Arredondo on 03-05-2023 Lymphocytes Auto (Unsp spec) [#/Vol] 1.18 10*3/uL 0.83-4.51 [facility] Automated lymphocyte count a s percentage of total leukocytesOrdered By: Stas Arredondo on 03-05-2023 Lymphocytes/100 WBC Auto (Unsp spec) 7.9 % 19-41 [facility] Basophil percentageOrdered B y: Stas Arredondo on 03-05-2023 Basophils/100 WBC (Bld) 0.3 % 0-1 [facility] Bilirubin [Mass/Vol] 0.30 mg/dL 0.20-1.00 [facility] Comment on above: For patients on eltr ombopag therapy, use of Dimension [place] TBIL is not recommended. Chloride [Moles/Vol] 102 mmol/L 98-107 [facility] Eosinophils/100 WBC (Bld) 0.8 % 0-5 [facility] Glucose [Mass/Vol] 252 mg/dL 74-106 [facility] Comment on above: Glucose result great er than or equal to 200 mg/dLsuggests DIABETES MELLITUS per A.D.A. criteria. Hemoglobin (Bld) [Mass/Vol] 10.7 g/dL 12.0-15.0 [facility] Monocytes/100 WBC (Bld) 6.6 % 0-10 [facility] Neutrophils (Bld) [#/Vol] 12.5 10*3/uL 2.0-7.7 [facility] Neutrophils/100 WBC (Bld) 83.7 % 47-70 [facility] Potassium [Moles/Vol] 3.9 mmol/L 3.5-5.1 [facility] Protein [Mass/Vol] 7.3 g/dL 6.4-8.2 [facility] Sodium [Moles/Vol] 137 mmol/L 136-145 [facility] WBC (Bld) [#/Vol] 14.9 10*3/uL 4.4-11.0 [facility] Basophil percentage 0-5 SEEN /hpf 0-5 [facility] Bilirubin Test strip Ql (U)O rdered By: Stas Arredondo on 03-05-2023 Bilirubin Ql (U) 3 mg/dL Negative [facility] Comment on above: COLOR OF URINE MAY A FFECT DIPSTICK RESULTS. Determination of erythrocyte mean corpuscular volume (MCV)Ordered By: Stas Arredondo on 03-05-2023 MCV (RBC) [Entitic vol] 74.5 fL 81-99 [facility] Erythrocyte distribution wid th ratioOrdered By: Stas Arredondo on 03-05-2023 Erythrocyte distribution width (RBC) [Ratio] 13.5 % 11.6-14.6 [facility] Erythrocyte distribution wid th standard deviationOrdered By: Stas Arredondo on 03-05-2023 Erythrocyte distribution width (RBC) [Entitic vol] 36.4 fL 35.1-43.9 [facility] Hematocrit Auto (Bld) [Volum e fraction]Ordered By: Stas Arredondo on 03-05-2023 Hematocrit (Bld) [Volume fraction] 35.7 % 37-47 [facility] Immature granulocytes/100 WB C Auto (Bld)Ordered By: Stas Arredondo on 03-05-2023 Immature granulocytes/100 WBC (Bld) 0.700 % 0.0-0.9 [facility] Comment on above: IG% - Immature Granu locytes (promyelocytes, myelocytes and metamyelocytes) > 1% indicates that a LEFT SHIFT is Present. Ketones Test strip Ql (U)Ord ered By: Stas Arredondo on 03-05-2023 Ketones Ql (U) 5 mg/dl Negative [facility] Laboratory - Chemistry and C hemistry - challengeOrdered By: Stas Arredondo on 03-05-2023 Albumin/Globulin [Mass ratio] 0.6 {ratio} 0.9-2.4 [facility] ALP [Catalytic activity/Vol] 107 U/L 45-117 [facility] ALT [Catalytic activity/Vol] 11 U/L 13-56 [facility] CO2 [Moles/Vol] 27.0 mmol/L 21.0-32.0 [facility] Globulin (S) [Mass/Vol] 4.5 g/dL 2.2-4.2 [facility] Lipase [Catalytic activity/Vol] 13 U/L 13-75 [facility] Comment on above: Please note:LIPASE r evised reference range effective 22. New Lipase methodology. Expected to produce lower values than the previous assay method. NEW Reference Range: 13 - 75 U/L Urea nitrogen/Creatinine [Mass ratio] 19.5 mg/mg 10-20 [facility] Laboratory - Hematology and Cell countsOrdered By: Stas Arredondo on 03-05-2023 MCH (RBC) [Entitic mass] 22.3 pg 27.0-32.0 [facility] MCHC (RBC) [Mass/Vol] 30.0 g/dL 32-36 [facility] Nucleated RBC/100 WBC (Bld) [Ratio] 0 % 0-5 [facility] Platelets (Bld) [#/Vol] 474 10*3/uL 150-450 [facility] Mucus LM Ql (Urine sed)Order ed By: Stas Arredondo on 03-05-2023 Mucus Ql (Urine sed) 0 SEEN /hpf [facility] Nitrite Test strip Ql (U)Ord ered By: Stas Arredondo on 03-05-2023 Nitrite Ql (U) Negative Negative [facility] No Panel InformationOrdered By: Stas Arredondo on 03-05-2023 Estimated Creatinine Clearance Calc 58.78 ml/min [facility] Estimated GFR (MDRD) Amer 87 mL/min >60 [facility] Comment on above: GFR Calc Estimated GFR (MDRD) Non-Af Amer 72 mL/min >60 [facility] Comment on above: Non- GFR Calc Urine RBC 0 SEEN /hpf 0-5 [facility] Platelet mean volume Augie-Ec ker (Bld) [Entitic vol]Ordered By: Stas Arredondo on 03-05-2023 Platelet mean volume (Bld) [Entitic vol] 9.6 fL 6.2-12.0 [facility] Protein Test strip Ql (U)Ord ered By: Stas Arredondo on 03-05-2023 Protein Ql (U) 30 mg/dl Negative [facility] RBC Auto (Bld) [#/Vol]Ordere d By: Stas Arredondo on 03-05-2023 RBC (Bld) [#/Vol] 4.79 10*6/uL 4.2-5.4 [facility] Serum or plasma calcium pj urement (mass/volume)Ordered By: Stas Arredondo on 03-05-2023 Calcium [Mass/Vol] 9.2 mg/dL 8.5-10.1 [facility] Serum or plasma creatinine m easurement (mass/volume)Ordered By: Stas Arredondo on 03-05-2023 Creatinine [Mass/Vol] 0.82 mg/dL 0.55-1.02 [facility] Comment on above: The validity of the calculated GFR & GFRAA in patients over 70 years has not been determined. Clinical correlation is essential. Serum or plasma urea nitroge n measurement (mass/volume)Ordered By: Stas Arredondo on 03-05-2023 Urea nitrogen [Mass/Vol] 16 mg/dL 7-18 [facility] Squamous epithelial cells de tection in urine sediment by light microscopyOrdered By: Stas Arredondo on 03-05-2023 Epithelial cells.squamous LM Ql (Urine sed) 0-5 SEEN /hpf 5-10 [facility] Thin prep Papanicolaou smear with manual screeningOrdered By: Stas Arredondo on 03-05-2023 Thin prep Papanicolaou smear with manual screening 2.8 g/dL 3.2-5.0 [facility] Thin prep Papanicolaou smear with manual screening 6 U/L 15-37 [facility] Thin prep Papanicolaou smear with manual screening 8 5-15 [facility] Urine blood detectionOrdered By: Stas Arredondo on 03-05-2023 RBC Ql (U) 10 /ul Negative [facility] Urine clarityOrdered By: Nadia Arredondo on 03-05-2023 Clarity (U) Sl. Cloudy Clear [facility] Urine color determinationOrd ered By: Stas Arredondo on 03-05-2023 Color (U) Yellow Yellow [facility] Urine glucose detectionOrder ed By: tSas Arredondo on 03-05-2023 Glucose Ql (U) Normal mg/dl Normal [facility] Urine leukocyte esterase det ection by dipstickOrdered By: Stas Arredondo on 03-05-2023 Leukocyte esterase Test strip Ql (U) 100 /ul Negative [facility] Urine pHOrdered By: Stas bains on 03-05-2023 pH (U) 5.0 [pH] 5.0 - 8.0 [facility] Urine sediment bacteria coun t by microscopy (number/high power field)Ordered By: Stas Arredondo on 03-05-2023 Bacteria LM.HPF (Urine sed) [#/Area] 1 /[HPF] None Seen [facility] Urine specific gravity measu rementOrdered By: Stas Arredondo on 03-05-2023 Specific gravity (U) [Rel density] 1.025 1.002-1.03 0 [facility] Urine urobilinogen measureme ntOrdered By: Stas Arredondo on 03-05-2023 Urobilinogen Ql (U) 1 mg/dl Normal [facility] Whole blood hemoglobin A1c/t otal hemoglobin ratio (mass fraction)Ordered By: Stas Arredondo on 03-05-2023 HbA1c (Bld) [Mass fraction] 6.6 % 3.8-5.6 [facility] Comment on above: Normal < 5.7 % Predi abetic 5.7 - 6.4 % Diabetic >or= 6.5 % Please note range changes. CBC W Auto Differential pane l (Bld)on 04-06-2022 Basophils (Bld) [#/Vol] 0.03 10*3/uL Normal <0.11 [facility] Comment on above: Order Comment: Speci men Type: BLOOD SPECIMEN Ordering Facility: [facility] Address: [address] [place] [id number] Performed By: #### 5 7021-8 #### [facility] CLIA [id number] [address] [place] Basophils/100 WBC (Bld) 0.2 % Normal [facility] Comment on above: Order Comment: Speci men Type: BLOOD SPECIMEN Ordering Facility: [facility] Address: [address] [place] [address] Performed By: #### 5 7021-8 #### [facility] CLIA [id number] [address] [place] [address] [place] Differential cell count method Nom (Bld) Auto Normal [facility] Comment on above: Order Comment: Speci men Type: BLOOD SPECIMEN Ordering Facility: [facility] Address: [address] [address] Performed By: #### 5 7021-8 #### [facility] CLIA [id number] [address] [place] Eosinophils (Bld) [#/Vol] 10*3/uL Normal <0.46 [facility] Comment on above: Order Comment: Speci men Type: BLOOD SPECIMEN Ordering Facility: [facility] Address: [address] [place] [address] Performed By: #### 5 7021-8 #### [facility] CLIA [id number] [address] Eosinophils/100 WBC (Bld) 0.1 % Normal [facility] Comment on above: Order Comment: Speci men Type: BLOOD SPECIMEN Ordering Facility: [facility] Address: [address] [place] [address] Performed By: #### 5 7021-8 #### [facility] CLIA [id number] [address] [place] Erythrocyte distribution width (RBC) [Ratio] 15.9 % High 11.5-15.0 [facility] Comment on above: Order Comment: Speci men Type: BLOOD SPECIMEN Ordering Facility: [facility] Address: [address] [place] [address] Performed By: #### 5 7021-8 #### [facility] CLIA [id number] [address] [place] [address] [place] Hematocrit (Bld) [Volume fraction] 36.5 % Normal 36.0-46.0 [facility] Comment on above: Order Comment: Speci men Type: BLOOD SPECIMEN Ordering Facility: [facility] Address: [address] [place] [address] Performed By: #### 5 7021-8 #### [facility] CLIA [id number] [address] [place] Hemoglobin (Bld) [Mass/Vol] 10.7 g/dL Low 11.5-15.5 [facility] Comment on above: Order Comment: Speci men Type: BLOOD SPECIMEN Ordering Facility: [facility] Address: [address] [place] [address] Performed By: #### 5 7021-8 #### [facility] CLIA [id number] [address] [place] Immature granulocytes (Bld) [#/Vol] 0.07 10*3/uL Normal <0.10 [facility] Comment on above: Order Comment: Speci men Type: BLOOD SPECIMEN Ordering Facility: [facility] Address: [address] [place] [address] Performed By: #### 5 7021-8 #### [facility] CLIA [id number] [address] Immature granulocytes/100 WBC (Bld) 0.5 % Normal [facility] Comment on above: Order Comment: Speci men Type: BLOOD SPECIMEN Ordering Facility: [facility] Address: [address] [address] Performed By: #### 5 7021-8 #### [facility] CLIA [id number] [address] [place] Lymphocytes (Bld) [#/Vol] 1.06 10*3/uL Normal 1.00-4.0 0 [facility] Comment on above: Order Comment: Speci men Type: BLOOD SPECIMEN Ordering Facility: [facility] Address: [address] [address] Performed By: #### 5 7021-8 #### [facility] CLIA [id number] [address] [place] [address] [place] Lymphocytes/100 WBC (Bld) 8.1 % Normal [facility] Comment on above: Order Comment: Speci men Type: BLOOD SPECIMEN Ordering Facility: [facility] Address: [address] [place] [address] Performed By: #### 5 7021-8 #### [facility] CLIA [id number] [address] [place] [address] [place] MCH (RBC) [Entitic mass] 22.4 pg Low 26.0-34.0 [facility] Comment on above: Order Comment: Speci men Type: BLOOD SPECIMEN Ordering Facility: [facility] Address: [address] [address] Performed By: #### 5 7021-8 #### [facility] CLIA [id number] [address] [place] [address] [place] MCHC (RBC) [Mass/Vol] 29.3 g/dL Low 30.5-36.0 [facility] Comment on above: Order Comment: Speci men Type: BLOOD SPECIMEN Ordering Facility: [facility] Address: [address] [address] Performed By: #### 5 7021-8 #### [facility] CLIA [id number] [address] [place] MCV (RBC) [Entitic vol] 76.5 fL Low 80.0-100.0 [facility] Comment on above: Order Comment: Speci men Type: BLOOD SPECIMEN Ordering Facility: [facility] Address: [address] [address] Performed By: #### 5 7021-8 #### [facility] CLIA [id number] [address] [place] [address] [place] Monocytes (Bld) [#/Vol] 1.41 10*3/uL High <0.87 [facility] Comment on above: Order Comment: Speci men Type: BLOOD SPECIMEN Ordering Facility: [facility] Address: [address] [address] Performed By: #### 5 7021-8 #### [facility] CLIA [id number] [address] [place] [address] [place] Monocytes/100 WBC (Bld) 10.7 % Normal [facility] Comment on above: Order Comment: Speci men Type: BLOOD SPECIMEN Ordering Facility: [facility] Address: [address] [address] Performed By: #### 5 7021-8 #### [facility] CLIA [id number] [address] [place] [address] [place] Neutrophils (Bld) [#/Vol] 10.54 10*3/uL High 1.45-7. 50 [facility] Comment on above: Order Comment: Speci men Type: BLOOD SPECIMEN Ordering Facility: [facility] Address: [address] [place] [address] Performed By: #### 5 7021-8 #### [facility] CLIA [id number] [address] [place] Neutrophils/100 WBC (Bld) 80.4 % Normal [facility] Comment on above: Order Comment: Speci men Type: BLOOD SPECIMEN Ordering Facility: [facility] Address: [address] [address] Performed By: #### 5 7021-8 #### [facility] CLIA [id number] [address] [place] [address] [place] Nucleated RBC (Bld) [#/Vol] 10*3/uL Normal <0.01 [facility] Comment on above: Order Comment: Speci men Type: BLOOD SPECIMEN Ordering Facility: [facility] Address: [address] [address] Performed By: #### 5 7021-8 #### [facility] CLIA [id number] [address] [place] [address] [place] Nucleated RBC/100 WBC (Bld) [Ratio] 0.0 /100 WBC Normal [facility] Comment on above: Order Comment: Speci men Type: BLOOD SPECIMEN Ordering Facility: [facility] Address: [address] [address] Performed By: #### 5 7021-8 #### [facility] CLIA [id number] [address] [place] [address] [place] Platelet mean volume (Bld) [Entitic vol] 10.8 fL Normal 9.0-12.7 [facility] Comment on above: Order Comment: Speci men Type: BLOOD SPECIMEN Ordering Facility: [facility] Address: [address] [place] [address] Performed By: #### 5 7021-8 #### [facility] CLIA [id number] [address] [place] [address] [place] Platelets (Bld) [#/Vol] 374 10*3/uL Normal 150-400 [facility] Comment on above: Order Comment: Speci men Type: BLOOD SPECIMEN Ordering Facility: [facility] Address: [address] [place] [address] Performed By: #### 5 7021-8 #### [facility] CLIA [id number] [address] [place] [address] [place] RBC (Bld) [#/Vol] 4.77 10*6/uL Normal 3.90-5.20 [facility] Comment on above: Order Comment: Speci men Type: BLOOD SPECIMEN Ordering Facility: [facility] Address: [address] [place] [address] Performed By: #### 5 7021-8 #### [facility] CLIA [id number] [address] [place] [address] [place] WBC (Bld) [#/Vol] 13.12 10*3/uL High 3.70-11.00 [facility] Comment on above: Order Comment: Speci men Type: BLOOD SPECIMEN Ordering Facility: [facility] Address: [address] [place] [address] Performed By: #### 5 7021-8 #### [facility] CLIA [id number] [address] [place] CNCOon 04-06-2022 CNCO Letter Text Normal [facility] CNDSon 04-06-2022 CNDS HNO ID: [id number] Author: Laly Nolan PA-C Service: General Surgery Author Type: Physician Blemish Remover Type: Discharge Summary Filed: 04/06/2022 10:08 AM [...] needed for pain. You should use an pqkm-hoq-bfsftvw stool softener (Docusate sodium) and/or a fiber [...] When: In 2 weeks Jessee Holloway MD [phone] [address] [address] PCP Requested Referral Additional Provider to Provider Information: S/p hiwot gardnere Treatment Team: Attending Provider: Jessee Holloway MD Transitions of Care Critical Issues: none LABS AND PROCEDURES PENDING AT DISCHARGE: Pathology Resul (more content not included)... Normal [facility] Comprehensive metabolic 2000 panelon 04-06-2022 Albumin [Mass/Vol] 3.6 g/dL Low 3.9-4.9 [facility] Comment on above: Order Comment: Speci men Type: BLOOD SPECIMEN Ordering Facility: [facility] Address: [address] [place] [address] Performed By: #### 2 4323-8 #### [facility] CLIA [id number] [address] [place] [facility] ALP [Catalytic activity/Vol] 86 U/L Normal 34-123 [facility] Comment on above: Order Comment: Speci men Type: BLOOD SPECIMEN Ordering Facility: [facility] Address: [address] [address] Performed By: #### 2 4323-8 #### [facility] CLIA [id number] [address] [place] [facility] ALT [Catalytic activity/Vol] 54 U/L High 7-38 [facility] Comment on above: Order Comment: Speci men Type: BLOOD SPECIMEN Ordering Facility: [facility] Address: [address] [address] Performed By: #### 2 4323-8 #### [facility] CLIA [id number] [address] [place] [address] [place] [facility] Anion gap [Moles/Vol] 6 mmol/L Low 9-18 [facility] Comment on above: Order Comment: Speci men Type: BLOOD SPECIMEN Ordering Facility: [facility] Address: [address] [address] Performed By: #### 2 4323-8 #### [facility] CLIA [id number] [address] [place] [address] [place] AST [Catalytic activity/Vol] 55 U/L High 13-35 [facility] Comment on above: Order Comment: Speci men Type: BLOOD SPECIMEN Ordering Facility: [facility] Address: [address] [place] [address] Performed By: #### 2 4323-8 #### [facility] CLIA [id number] [address] [place] [address] [place] Bilirubin [Mass/Vol] 0.5 mg/dL Normal 0.2-1.3 [facility] Comment on above: Order Comment: Speci men Type: BLOOD SPECIMEN Ordering Facility: [facility] Address: [address] [place] [address] Performed By: #### 2 4323-8 #### [facility] CLIA [id number] [address] [place] Calcium [Mass/Vol] 9.0 mg/dL Normal 8.5-10.2 [facility] Comment on above: Order Comment: Speci men Type: BLOOD SPECIMEN Ordering Facility: [facility] Address: [address] [place] [address] Performed By: #### 2 4323-8 #### [facility] CLIA [id number] [address] [place] [address] [place] Chloride [Moles/Vol] 105 mmol/L Normal 97-105 [facility] Comment on above: Order Comment: Speci men Type: BLOOD SPECIMEN Ordering Facility: [facility] Address: [address] [place] [address] Performed By: #### 2 4323-8 #### [facility] CLIA [id number] [address] [place] [address] [place] CO2 [Moles/Vol] 30 mmol/L Normal 22-30 [facility] Comment on above: Order Comment: Speci men Type: BLOOD SPECIMEN Ordering Facility: [facility] Address: [address] [place] [address] Performed By: #### 2 4323-8 #### [facility] CLIA [id number] [address] [place] Creatinine [Mass/Vol] 0.65 mg/dL Normal 0.58-0.96 [facility] Comment on above: Order Comment: Marcelina plascencia Type: BLOOD SPECIMEN Ordering Facility: [facility] Address: [address] [place] [address] Performed By: #### 2 4323-8 #### [facility] CLIA [id number] [address] [place] ESTIMATED GLOMERULAR FILTRATION RATE 93 mL/min/1.73m??? Normal >=60 [facility] Comment on above: Order Comment: Marcelina plascencia Type: BLOOD SPECIMEN Ordering Facility: [facility] Address: [address] [place] [address] Result Comment: Sonya mated Glomerular Filtration Rate [...] GFR. Performed By: #### 2 4323-8 #### [facility] CLIA [id number] [address] [place] [address] [place] Glucose [Mass/Vol] 181 mg/dL High 74-99 [facility] Comment on above: Order Comment: Marcelina plascencia Type: BLOOD SPECIMEN Ordering Facility: [facility] Address: [address] [place] [address] Result Comment: The [place] [employer] (ADA) provides guidance for cutoff [...] Standards of Medical Care in Diabetes 2016, [place] [employer]. Diabetes Care. 2016.39(Suppl 1). Performed By: #### 2 4323-8 #### [facility] CLIA [id number] [address] [place] [address] [place] Potassium [Moles/Vol] 4.8 mmol/L Normal 3.7-5.1 [facility] Comment on above: Order Comment: Speci men Type: BLOOD SPECIMEN Ordering Facility: [facility] Address: [address] [address] Performed By: #### 2 4323-8 #### [facility] CLIA [id number] [address] [place] [address] [place] Protein [Mass/Vol] 6.4 g/dL Normal 6.3-8.0 [facility] Comment on above: Order Comment: Speci men Type: BLOOD SPECIMEN Ordering Facility: [facility] Address: [address] [place] [address] Performed By: #### 2 4323-8 #### [facility] CLIA [id number] [address] [place] Sodium [Moles/Vol] 141 mmol/L Normal 136-144 [facility] Comment on above: Order Comment: Speci men Type: BLOOD SPECIMEN Ordering Facility: [facility] Address: [address] [place] [address] Performed By: #### 2 4323-8 #### [facility] CLIA [id number] [address] [place] Urea nitrogen [Mass/Vol] 9 mg/dL Normal 7-21 [facility] Comment on above: Order Comment: Speci men Type: BLOOD SPECIMEN Ordering Facility: [facility] Address: [address] [place] [address] Performed By: #### 2 4323-8 #### [facility] CLIA [id number] [address] [place] [address] [place] ANES POSTPROC EVALon 023 ANES POSTPROC EVAL HNO ID: [id number] Author: Nohemi Ortiz MD Service: Anesthesiology Author Type: Anesthesiologist Type: Anesthesia Postprocedure Evaluation Filed: 04/05/2022 2:29 PM Note Text: POST ANESTHESIA EVALUATION NOTE : 1945 Procedure Summary Date: 04/05/22 Room / Location: [place] [facility] / [place] Anesthesia Start: 732 Anesthesia Stop: 916 [...] April 05, 2022 TIME: 2:29 PM CSN: [id number] [facility] ANES PRE-OPon 04-05-2022 ANES PRE-OP HNO ID: [id number] Author: Nohemi Ortiz MD Service: Anesthesiology Author Type: Anesthesiologist Type: Anesthesia Preprocedure Evaluation Filed: 04/05/2022 6:52 AM Note Text: ANESTHESIOLOGY DAY OF SURGERY NOTE : 1945 Procedure Information Date/Time: 04/05/22729 Procedure: LAPAROSCOPIC CHOLECYSTECTOMY WITH GRAMS Location: [place] Surgeons: Jessee Holloway MD Estimated body [...] Nguyen Queen DATE: (more content not included)... [facility] BRIEF OP NOTon 04-05-2022 BRIEF OP NOT HNO ID: [id number] Author: Jessee Holloway MD Service: General Surgery Author Type: Physician Type: Brief Op Note Filed: 04/05/2022 9:05 AM Note Text: BRIEF OPERATIVE NOTATION FOR SURGICAL PROCEDURE. Nguyen Queen 1945 [id number] female LOG ID: [id number] Surgery/Procedure Date: 04/05/2022 Incision/Procedure Start Time: 7:58 AM Incision Close/Procedure End Time: 8:56 AM Surgeon(s)/Proceduralist( s) and Blemish Remover(s): Surgeon(s) and Role: * Jessee Holloway MD - Primary Physician Blemish Remover: Renu Lucas PA-C REFERRING PHYSICIAN: Outpatient DEPT: Deb PROVIDER: Maryanne POS: [id number] ANESTHESIA: General ASA CLASS: 3 - Severe DIAGNOSIS: RUQ pain PROCEDURE: LAPAROSCOPIC CHOLECYSTECTOMY WITH INTRAOPERATIVE CHOLEANGIOGRAM - [id number] IVF: 1200 EBL: 100 Specimens: gallbladder ADDITIONAL [...] Operative note dictated in the dictation system.- [id number] Jessee Holloway MD [facility] HISTORY PHYSICALon HISTORY PHYSICAL HNO ID: [id number] Author: Jessee Holloway MD Service: General Surgery [...] more recently had an endoscopy performed at [facility] where the anesthesiologist told her that she [...] Diagnosis Date Advance care planning 08/24/2021 [facility] Diabetes mellitus, type 2 (HCC) Environmental allergies [...] found. 5 yr recall. [facility]. [facility] COLONOSCOPY FLX DX W/COLLJ SPEC WHEN PFRMD 02/26/2018 Colonoscopy ESOPHAGOGASTRODUODENOSCOP Y TRANSORAL DIAGNOSTIC 08/31/2003 Unremarkable, negative biopsies. [facility] ESOPHAGOGASTRODUODENOSCOP Y TRANSORAL DIAGNOSTIC 02/26/2018 EGD [...] Frequency Provider Last (more content not included)... [facility] OPERATIVE NOon 04-05-2022 OPERATIVE NO HNO ID: [id number] Author: Jessee Holloway MD Service: General Surgery Author Type: Physician Type: Operative Report Filed: 04/05/2022 2:42 PM Note Text: [facility] - Operative Report NGUYEN QUEEN : 1945 AGE: 76. SEX: F PATIENT TYPE: A HOSP SVC: [facility] LOCATION: [facility] ATTENDING PHYSICIAN: Jessee Holloway M.D. CSN NUMBER: [id number] DATE OF SURGERY/PROCEDURE: 04/05/2022 INCISION/PROCEDURE START TIME: 7:58 a.m. INCISION CLOSE/PROCEDURE END TIME: 8:56 a.m. PREOPERATIVE DIAGNOSIS: Right upper quadrant pain and cholelithiasis. POSTOPERATIVE DIAGNOSIS: Right upper quadrant pain and cholelithiasis, normal cholangiogram. SURGEON: Jessee Holloway M.D. HOSPICE ADMITTING CLERK: Renu Lucas PA-C SURGERY/PROCEDURE: Laparoscopic cholecystectomy with intraoperative cholangiogram. ANESTHESIA: General endotracheal. LOG ID NUMBER: [id number]. ANESTHESIOLOGIST: Dr. Ortiz. ASA: 3. INTRAVENOUS FLUIDS: [...] in stable condition. Renu Lucas is my bus assistant. She assisted in visualization, retraction, and subcuticular closure. There were no surgeons or qualified residents available. Jessee Holloway M.D. RG:[id number] /[id number] [facility] SURGICAL PATHOLOGYon 023 CASE REPORT [facility] Comment on above: Order Comment: Speci men Type: TISSUE SPECIMEN Ordering Facility: [facility] Address: [address] [address] Result Comment: Surg ica Pathology Report Case: [id number] Authorizing Provider: Jessee Holloway MD Collected: 04/05/2022 08:45 AM Ordering Location: [facility] Surgery Received: 04/05/2022 11:24 AM Pathologist: Osmany Jennings MD Specimen: GALLBLADDER, gallbladder Performed By: #### S #### [facility] CLIA [id number] [address] [place] [address] CLINICAL HISTORY Normal [facility] Comment on above: Order Comment: Speci men Type: TISSUE SPECIMEN Ordering Facility: [facility] Address: [address] [place] [address] Result Comment: Pre- op diagnosis: RUQ abdominal pain [R10.11] Gallbladder calculus without cholecystitis and no obstruction [K80.20] Fatty liver [K76.0] Performed By: #### S #### [facility] CLIA [id number] [address] [place] [address] FINAL DIAGNOSIS Normal [facility] Comment on above: Order Comment: Speci men Type: TISSUE SPECIMEN Ordering Facility: [facility] Address: [address] [place] [address] Result Comment: A. G allbladder, cholecystectomy: - Active chronic follicular cholecystitis with cholelithiasis. CF/LDF 04/07/2022 Performed By: #### S #### [facility] CLIA [id number] [address] [place] [address] FINAL PERFORMING LAB Normal [facility] Comment on above: Order Comment: Speci men Type: TISSUE SPECIMEN Ordering Facility: [facility] Address: [address] [place] [address] Result Comment: Diag nostic interpretation performed at [facility], [address] [place] [address] CLIA# [id number] Domestic Violence Counselor: Noble Tolliver M.D. Performed By: #### S #### [facility] CLIA [id number] [address] [place] [address] OF [facility] GROSS DESCRIPTION A. GALLBLADDER Normal [facility] Comment on above: Order Comment: Speci men Type: TISSUE SPECIMEN Ordering Facility: [facility] Address: [address] [id number] Result Comment: Rece ived in formalin labeled [...] black, slightly roughened calculus within the container. Auto Rental Supervisor sections to include the cystic duct margin are submitted in cassette A1. Gross examination performed at [facility], [address] [place] [address] 04/06/22 12:02 PM Performed By: #### S #### [facility] CLIA [id number] [address] [place] [address] OF [facility] XR Ankle - right AP and Late ral and obliqueon 08-26-2020 IMPRESSION: Mild bimalleolar soft tissue swelling. No acute bony process. Calcaneal spur. Analytic Manager: [facility] Transcribe Date/Time: Aug 26 2020 12:20P Dictated by : JANETH OLSEN MD This examination was interpreted and the report reviewed and electronically signed by: JANETH OLSEN MD on Aug 26 2020 12:22PM [facility] DIVISION OF RADIOLOGY * * *Final Report* [...] on the right. DIVISION OF RADIOLOGY Provider, [facility] * * *Final Report* * [...] swelling. No acute bony process. Calcaneal spur. Analytic Manager: [facility] Transcribe Date/Time: Aug 26 2020 12:20P Dictated by : JANETH OLSEN MD This examination was interpreted and the report reviewed and electronically signed by: JANETH OLSEN MD on Aug 26 2020 12:22PM EST [facility] XR Ankle - right AP and Late ral and obliqueOrdered By: Ccf Provider on 08-26-2020 [facility] XR HIP BILAT 5V PEL/AP/LAT E ACH HIPon 08-26-2020 IMPRESSION: 1. No acute bony process. 2. Calcification at the tendinous insertion of the greater trochanter right hip. Otherwise unremarkable. Analytic Manager: JJ Transcribe Date/Time: Aug 26 2020 12:23P Dictated by : JANETH OLSEN MD This examination was interpreted and the report reviewed and electronically signed by: JANETH OLSEN MD on Aug 26 2020 12:25PM [facility] DIVISION OF RADIOLOGY * * *Final Report* [...] relevant examinations available for comparison within the [facility] Imaging Archives. RESULT: Supine radiograph of the [...] tissues are unremarkable. DIVISION OF RADIOLOGY Provider, [facility] - 08/26/2020 * * *Final Report* * [...] relevant examinations available for comparison within the [facility] Imaging Archives. RESULT: Supine radiograph of the [...] the greater trochanter right hip. Otherwise unremarkable. Analytic Manager: JJ Transcribe Date/Time: Aug 26 2020 12:23P Dictated by : JANETH OLSEN MD This examination was interpreted and the report reviewed and electronically signed by: JANETH OLSEN MD on Aug 26 2020 12:25PM EST [facility] No Panel Informationon 08-25 Radiology Study observation (narrative) [facility] XR Lumbar spine 3 Viewson IMPRESSION: Lumbar s pine degenerative changes as described above. Analytic Manager: JJ Transcribe Date/Time: Aug 25 2020 5:01P Dictated by : MYRNA MOSLEY MD This examination was interpreted and the report reviewed and electronically signed by: MYRNA MOSLEY MD on Aug 25 2020 5:03PM [facility] DIVISION OF RADIOLOGY * * *Final Report* [...] spine are presented. FINDINGS: There are five tjf-iqd-vzsamlb lumbar vertebrae. No acute fracture seen. There [...] spine are presented. FINDINGS: There are five srl-zyg-dtudrvj lumbar vertebrae. No acute fracture seen. There is grade 1 L4 on L5 anterolisthesis. There appears be L4-5 mild disc space narrowing. There is mild to moderate osteophyte formation, with facet arthrosis in the lower lumbar spine. Kissing spine seen on lateral view. IMPRESSION IMPRESSION: Lumbar spine degenerative changes as described above. Analytic Manager: JJ Transcribe Date/Time: Aug 25 2020 5:01P Dictated by : MYRNA MOSLEY MD This examination was interpreted and the report reviewed and electronically signed by: MYRNA MOSLEY MD on Aug 25 2020 5:03PM [facility] Vital Signs Date Time Vital Sign Value Performing Clinician Facility 10-23-2024 14:05-0400 Body height 160.[address] Jeff Simeon DO Work Phone: [facility] 10-23-2024 14:05-0400 Body mass index (BMI) [Ratio] 30.7 kg/m2 Dr. Jeff Simeon DO Work Phone: [facility] 10-23-2024 14:05-0400 Body temperature 98 [degF] Dr. Jeff Simeon DO Work Phone: [facility] 10-23-2024 14:05-0400 Body weight 78.[address] Jeff Simeon DO Work Phone: [facility] 10-23-2024 14:05-0400 Diastolic blood pressure 73 mm[Hg] Dr. Jeff Simeon DO Work Phone: [facility] 10-23-2024 14:05-0400 Heart rate 75 /min Dr. Jeff Simeon DO Work Phone: [facility] 10-23-2024 14:05-0400 Respiratory rate 18 /min Dr. Jeff Simeon DO Work Phone: [facility] 10-23-2024 14:05-0400 SaO2% (BldA) [Mass fraction] 96 % Dr. Jeff Simeon DO Work Phone: [facility] 10-23-2024 14:05-0400 Systolic blood pressure 111 mm[Hg] Dr. Jeff Simeon DO Work Phone: [facility] 2024 09:42-0400 Body mass index (BMI) [Ratio] 29.58 kg/m2 Jeff Simeon DO Work Phone: [facility] 2024 09:42-0400 Body temperature 97 [degF] Jeff Simeon DO Work Phone: [facility] 2024 09:42-0400 Body weight 75.75 kg Jeff Simeon DO Work Phone: [facility] 2024 09:42-0400 Diastolic blood pressure 60 mm[Hg] Jeff Simeon DO Work Phone: [facility] 2024 09:42-0400 Heart rate 80 /min Jeff Simeon DO Work Phone: [facility] 2024 09:42-0400 Respiratory rate 16 /min Jeff Simeon DO Work Phone: [facility] 2024 09:42-0400 Systolic blood pressure 124 mm[Hg] Jeff Simeon DO Work Phone: [facility] 04-29-2024 13:13-0400 Body height 160.[address] Jeff Simeon DO Work Phone: [facility] 04-29-2024 13:13-0400 Body weight 73.[address] Jeff Simeon DO Work Phone: [facility] 04-17-2024 14:17-0500 Body mass index (BMI) [Ratio] 28.8 kg/m2 Dr. Jeff Simeon DO Work Phone: 4(126)026-264193 [place] [address] 04-17-2024 14:17-0500 Body temperature 98.2 [degF] Dr. Jeff Simeon DO Work Phone: 5(654)873-204349 [place] [address] 04-17-2024 14:17-0500 Body weight 73.[address] Jeff Simeon DO Work Phone: 4(636)588-220949 [place] [address] 04-17-2024 14:17-0500 Diastolic blood pressure 59 mm[Hg] Dr. Jeff Simeon DO Work Phone: 6(787)029-002849 [place] [address] 04-17-2024 14:17-0500 Heart rate 71 /min Dr. Jeff Simeon DO Work Phone: 7(806)715-825649 [place] [address] 04-17-2024 14:17-0500 Respiratory rate 18 /min Dr. Jeff Simeon DO Work Phone: 4(637)533-286349 [place] [address] 04-17-2024 14:17-0500 SaO2% (BldA) [Mass fraction] 96 % Dr. Jeff Simeon DO Work Phone: 5(570)327-138949 [place] [address] 04-17-2024 14:17-0500 Systolic blood pressure 120 mm[Hg] Dr. Jeff Simeon DO Work Phone: 4(763)978-012349 [place] [address] 03-27-2024 11:43-0500 Body temperature 97.1 [degF] Dr. Jeff Simeon DO Work Phone: 7(314)028-428749 [place] [address] 03-27-2024 11:43-0500 Diastolic blood pressure 44 mm[Hg] Dr. Jeff Simeon DO Work Phone: 7(255)963-198249 [place] [address] 03-27-2024 11:43-0500 Heart rate 77 /min Dr. Jeff Simeon DO Work Phone: 5(397)758-925249 [place] [address] 03-27-2024 11:43-0500 Respiratory rate 16 /min Dr. Jeff Simeon DO Work Phone: 4(559)816-012049 [place] [address] 03-27-2024 11:43-0500 SaO2% (BldA) [Mass fraction] 97 % Dr. Jeff Simeon DO Work Phone: [facility] 03-27-2024 11:43-0500 Systolic blood pressure 115 mm[Hg] Dr. Jeff Simeon DO Work Phone: [facility] 03-27-2024 08:54-0500 Body mass index (BMI) [Ratio] 28.3 kg/m2 Dr. Jeff Simeon DO Work Phone: [facility] 02-14-2024 10:51-0500 Body mass index (BMI) [Ratio] 28.59 kg/m2 Karson Crissy SERVICE CONSULTANT.SHUTDOWN COORDINATOR Work Phone: [facility] 02-14-2024 10:51-0500 Body weight 73.2 kg Karson Crissy SERVICE CONSULTANT.SHUTDOWN COORDINATOR Work Phone: [facility] 02-14-2024 10:51-0500 Diastolic blood pressure 72 mm[Hg] Karson Crissy SERVICE CONSULTANT.SHUTDOWN COORDINATOR Work Phone: [facility] 02-14-2024 10:51-0500 Heart rate 89 /min Karson Crissy SERVICE CONSULTANT.SHUTDOWN COORDINATOR Work Phone: [facility] 02-14-2024 10:51-0500 Respiratory rate 16 /min Karson Crissy SERVICE CONSULTANT.SHUTDOWN COORDINATOR Work Phone: [facility] 02-14-2024 10:51-0500 SaO2% (BldA) [Mass fraction] 99 % Karson Crissy SERVICE CONSULTANT.SHUTDOWN COORDINATOR Work Phone: [facility] 02-14-2024 10:51-0500 Systolic blood pressure 118 mm[Hg] Karson Crissy SERVICE CONSULTANT.SHUTDOWN COORDINATOR Work Phone: [facility] 01-24-2024 14:37-0500 Body mass index (BMI) [Ratio] 28.3 kg/m2 Dr. Jeff Simeon DO Work Phone: [facility] 01-24-2024 14:37-0500 Body temperature 97.3 [degF] Dr. Jeff Simeon DO Work Phone: 8(210)215-170649 [place] [address] 01-24-2024 14:37-0500 Body weight 72.[address] Jeff Simeon DO Work Phone: 7(529)405-066349 [place] [address] 01-24-2024 14:37-0500 Diastolic blood pressure 65 mm[Hg] Dr. Jeff Simeon DO Work Phone: 3(534)357-100549 [place] [address] 01-24-2024 14:37-0500 Heart rate 77 /min Dr. Jeff Simeon DO Work Phone: 6(056)444-088349 [place] [address] 01-24-2024 14:37-0500 Respiratory rate 18 /min Dr. Jeff Simeon DO Work Phone: 4(741)371-803049 [place] [address] 01-24-2024 14:37-0500 SaO2% (BldA) [Mass fraction] 98 % Dr. Jeff Simeon DO Work Phone: 5(256)017-877449 [place] [address] 01-24-2024 14:37-0500 Systolic blood pressure 101 mm[Hg] Dr. Jeff Simeon DO Work Phone: 0(291)131-827849 [place] [address] 01-22-2024 12:54-0500 Body mass index (BMI) [Ratio] 28.3 kg/m2 Dr. Jeff Simeon DO Work Phone: 7(073)589-453349 [place] [address] 01-22-2024 12:54-0500 Body weight 72.[address] Jeff Simeon DO Work Phone: 6(079)173-470449 [place] [address] 01-22-2024 12:54-0500 Diastolic blood pressure 60 mm[Hg] Dr. Jeff Simeon DO Work Phone: 1(944)729-421949 [place] [address] 01-22-2024 12:54-0500 Heart rate 88 /min Dr. Jeff Simeon DO Work Phone: 9(564)815-060749 [place] [address] 01-22-2024 12:54-0500 Respiratory rate 16 /min Dr. Jeff Simeon DO Work Phone: 0(384)630-435249 [place] [address] 01-22-2024 12:54-0500 SaO2% (BldA) [Mass fraction] 99 % Dr. Jeff Simeon DO Work Phone: [facility] 01-22-2024 12:54-0500 Systolic blood pressure 100 mm[Hg] Dr. Jeff Simeon DO Work Phone: [facility] 11-20-2023 09:05-0400 Diastolic blood pressure 58 mm[Hg] Jeff Kentrison DO Work Phone: [facility] 11-20-2023 09:05-0400 Heart rate 94 /min Jeff Simeon DO Work Phone: [facility] 11-20-2023 09:05-0400 Respiratory rate 16 /min Jeff Simeon DO Work Phone: [facility] 11-20-2023 09:05-0400 SaO2% (BldA) [Mass fraction] 99 % Jeff Simeon DO Work Phone: [facility] 11-20-2023 09:05-0400 Systolic blood pressure 118 mm[Hg] Jeff Kentrison DO Work Phone: [facility] 10-24-2023 13:56-0400 Body mass index (BMI) [Ratio] 31.64 kg/m2 Karson Crissy SERVICE CONSULTANT.SHUTDOWN COORDINATOR Work Phone: [facility] 10-24-2023 13:56-0400 Body weight 81.01 kg Karson Crissy SERVICE CONSULTANT.SHUTDOWN COORDINATOR Work Phone: [facility] 10-24-2023 13:56-0400 Diastolic blood pressure 58 mm[Hg] Karson Crissy SERVICE CONSULTANT.SHUTDOWN COORDINATOR Work Phone: [facility] 10-24-2023 13:56-0400 Heart rate 84 /min Karson Crissy SERVICE CONSULTANT.SHUTDOWN COORDINATOR Work Phone: [facility] 10-24-2023 13:56-0400 Respiratory rate 16 /min Karson Crissy SERVICE CONSULTANT.SHUTDOWN COORDINATOR Work Phone: [facility] 10-24-2023 13:56-0400 SaO2% (BldA) [Mass fraction] 100 % Karson Woodward SERVICE CONSULTANT.SHUTDOWN COORDINATOR Work Phone: [facility] 10-24-2023 13:56-0400 Systolic blood pressure 104 mm[Hg] Karson Woodward SERVICE CONSULTANT.SHUTDOWN COORDINATOR Work Phone: [facility] 07-11-2023 11:29-0400 Body mass index (BMI) [Ratio] 30.58 kg/m2 Sharyn Athy PA-C Work Phone: [facility] 07-11-2023 11:290400 Body temperature 97.59 [degF] Sharyn Athy PA-C Work Phone: [facility] 07-11-2023 11:29-0400 Body weight 78.3 kg Sharyn Athy PA-C Work Phone: [facility] 07-11-2023 11:29-0400 Diastolic blood pressure 82 mm[Hg] Sharyn Athy PA-C Work Phone: [facility] 07-11-2023 11:29-0400 Heart rate 72 /min Sharyn Athy PA-C Work Phone: [facility] 07-11-2023 11:29-0400 Respiratory rate 18 /min Sharyn Athy PA-C Work Phone: [facility] 07-11-2023 11:29-0400 SaO2% (BldA) [Mass fraction] 99 % Sharyn Athy PA-C Work Phone: [facility] 07-11-2023 11:29-0400 Systolic blood pressure 142 mm[Hg] Sharyn Athy PA-C Work Phone: [facility] 06-25-2023 15:03-0400 Body mass index (BMI) [Ratio] 29.76 kg/m2 Jeff Simeon DO Work Phone: [facility] 06-25-2023 15:03-0400 Body temperature 97 [degF] Jeff Simeon DO Work Phone: [facility] 06-25-2023 15:03-0400 Body weight 76.2 kg Jeff Simeon DO Work Phone: [facility] 06-25-2023 15:03-0400 Diastolic blood pressure 60 mm[Hg] Jeff Kentrison DO Work Phone: [facility] 06-25-2023 15:03-0400 Heart rate 80 /min Jeff Simeon DO Work Phone: [facility] 06-25-2023 15:03-0400 Respiratory rate 12 /min Jeff Simeon DO Work Phone: [facility] 06-25-2023 15:03-0400 Systolic blood pressure 110 mm[Hg] Jeff Simeon DO Work Phone: [facility] 04-04-2023 10:26-0500 Body height 160.[address] Jeff Simeon Work Phone: 8(671)546-726793 [place] [address] 04-04-2023 10:25-0500 Body mass index (BMI) [Ratio] 29.5 kg/m2 Dr. Jeff Simeon Work Phone: 7(188)509-042593 [place] [address] 04-04-2023 10:25-0500 Body temperature 98.5 [degF] Dr. Jeff Simeon Work Phone: 0(675)862-514193 [place] [address] 04-04-2023 10:25-0500 Body weight 75.[address] Jeff Simeon Work Phone: 1(297)249-315193 [place] [address] 04-04-2023 10:25-0500 Diastolic blood pressure 70 mm[Hg] Dr. Jeff Simeon Work Phone: 0(229)832-999393 [place] [address] 04-04-2023 10:25-0500 Heart rate 81 /min Dr. Jeff Simeon Work Phone: 5(490)758-692393 [place] [address] 04-04-2023 10:25-0500 Respiratory rate 18 /min Dr. Jeff Simeon Work Phone: 8(815)140-640493 [place] [address] 04-04-2023 10:25-0500 SaO2% (BldA) [Mass fraction] 99 % Dr. Jeff Simeon Work Phone: [facility] 04-04-2023 10:25-0500 Systolic blood pressure 107 mm[Hg] Dr. Jeff Simeon Work Phone: [facility] 03-21-2023 10:44-0500 Body mass index (BMI) [Ratio] 30.2 kg/m2 Dr. Jeff Simeon Work Phone: [facility] 03-21-2023 10:44-0500 Body weight 77.[address] Jeff Simeon Work Phone: 3(921)671-344593 [place] [address] 03-21-2023 10:39-0500 Body temperature 98.2 [degF] Dr. Jeff Simeon Work Phone: 6(040)955-473693 [place] [address] 03-21-2023 10:39-0500 Diastolic blood pressure 58 mm[Hg] Dr. Jeff Simeon Work Phone: 5(060)104-306493 [place] [address] 03-21-2023 10:39-0500 Heart rate 74 /min Dr. Jeff Simeon Work Phone: 0(341)920-952193 [place] [address] 03-21-2023 10:39-0500 Respiratory rate 18 /min Dr. Jeff Simeon Work Phone: [facility] 03-21-2023 10:39-0500 SaO2% (BldA) [Mass fraction] 99 % Dr. Jeff Simeon Work Phone: [facility] 03-21-2023 10:39-0500 Systolic blood pressure 115 mm[Hg] Dr. Jeff Simeon Work Phone: [facility] 03-19-2023 10:38-0500 Body weight 76.3 kg Karson Woodward APRN.SHUTDOWN COORDINATOR Work Phone: [facility] 03-19-2023 10:38-0500 Diastolic blood pressure 64 mm[Hg] Karson Woodward APRN.SHUTDOWN COORDINATOR Work Phone: [facility] 03-19-2023 10:38-0500 Heart rate 85 /min Karson Crissy SERVICE CONSULTANT.SHUTDOWN COORDINATOR Work Phone: [facility] 03-19-2023 10:38-0500 Respiratory rate 16 /min Karson Woodward SERVICE CONSULTANT.SHUTDOWN COORDINATOR Work Phone: [facility] 03-19-2023 10:38-0500 SaO2% (BldA) [Mass fraction] 95 % Karson Woodward SERVICE CONSULTANT.SHUTDOWN COORDINATOR Work Phone: [facility] 03-19-2023 10:38-0500 Systolic blood pressure 110 mm[Hg] Karson Woodward SERVICE CONSULTANT.SHUTDOWN COORDINATOR Work Phone: [facility] 03-11-2023 14:01-0500 Body temperature 97.2 [degF] Dr. Jeff Simeon Work Phone: 4(540)733-403293 [place] [address] 03-11-2023 14:01-0500 Diastolic blood pressure 68 mm[Hg] Dr. Jeff Simeon Work Phone: 7(986)569-465393 [place] [address] 03-11-2023 14:01-0500 Heart rate 84 /min Dr. Jeff Simeon Work Phone: 6(403)712-980993 [place] [address] 03-11-2023 14:01-0500 Respiratory rate 18 /min Dr. Jeff Simeon Work Phone: [facility] 03-11-2023 14:01-0500 SaO2% (BldA) [Mass fraction] 94 % Dr. Jeff Simeon Work Phone: [facility] 03-11-2023 14:01-0500 Systolic blood pressure 140 mm[Hg] Dr. Jeff Simeon Work Phone: [facility] 03-09-2023 14:52-0500 Body height 160.[address] Jeff Simeon Work Phone: 1(183)804-546493 [place] [address] 03-09-2023 14:52-0500 Body weight 79.[address] Jeff Simeon Work Phone: 3(935)523-360493 [place] [address] 03-06-2023 19:30-0500 Inhaled oxygen flow rate 8 L/min Dr. Jeff Simeon Work Phone: 8(611)512-005449 [place] [address] 03-05-2023 23:31-0500 Body mass index (BMI) [Ratio] 30.9 kg/m2 Dr. Jeff Simeon Work Phone: 2(689)552-504949 [place] [address] 03-05-2023 23:13-0500 Body temperature 97.8 [degF] Dr. Jeff Simeon Work Phone: 0(785)825-490649 [place] [address] 03-05-2023 23:13-0500 Diastolic blood pressure 65 mm[Hg] Dr. Jeff Simeon Work Phone: 6(354)076-555349 [place] [address] 03-05-2023 23:13-0500 Heart rate 78 /min Dr. Jeff Simeon Work Phone: 7(735)519-614849 [place] [address] 03-05-2023 23:13-0500 Respiratory rate 12 /min Dr. Jeff Simeon Work Phone: 8(423)877-537649 [place] [address] 03-05-2023 23:13-0500 SaO2% (BldA) [Mass fraction] 98 % Dr. Jeff Simeon Work Phone: 3(111)119-282349 [place] [address] 03-05-2023 23:13-0500 Systolic blood pressure 156 mm[Hg] Dr. Jeff Simeon Work Phone: 1(836)339-603149 [place] [address] 03-05-2023 18:59-0500 Body height 160.[address] Jeff Simeon Work Phone: [phone] [place] [address] 03-05-2023 18:59-0500 Body mass index (BMI) [Ratio] 30.6 kg/m2 Dr. Jeff Simeon Work Phone: [phone] [place] [address] 03-05-2023 18:59-0500 Body weight 78.[address] Jeff Simeon Work Phone: [phone] [place] [address] 12-08-2022 10:00-0400 Body temperature 96.4 [degF] Jeff Simeon DO Work Phone: [phone] [place] [address] 12-08-2022 10:00-0400 Body weight 82.56 kg Jeff Simeon DO Work Phone: [facility] 12-08-2022 10:00-0400 Diastolic blood pressure 60 mm[Hg] Jeff Simeon DO Work Phone: [facility] 12-08-2022 10:00-0400 Heart rate 88 /min Jeff Simeon DO Work Phone: [facility] 12-08-2022 10:00-0400 Respiratory rate 16 /min Jeff Simeon DO Work Phone: [facility] 12-08-2022 10:00-0400 Systolic blood pressure 116 mm[Hg] Jeff Simeon DO Work Phone: [facility] 05-24-2022 16:10-0400 Body temperature 97.39 [degF] Jeff Simeon DO Work Phone: [facility] 05-24-2022 16:10-0400 Body weight 80.29 kg Jeff Simeon DO Work Phone: [facility] 05-24-2022 16:10-0400 Diastolic blood pressure 78 mm[Hg] Jeff Simeon DO Work Phone: [facility] 05-24-2022 16:10-0400 Heart rate 80 /min Jeff Simeon DO Work Phone: [facility] 05-24-2022 16:10-0400 Respiratory rate 16 /min Jeff Simeon DO Work Phone: [facility] 05-24-2022 16:10-0400 Systolic blood pressure 150 mm[Hg] Jeff Simeon DO Work Phone: [facility] 04-13-2022 09:01-0500 Body temperature 97.59 [degF] Nguyen Mcalisterville PA-C Work Phone: [facility] 04-13-2022 09:01-0500 Body weight 82.64 kg Nguyen [place]cal[place] PA-C Work Phone: [facility] 04-13-2022 09:01-0500 Diastolic blood pressure 66 mm[Hg] Nguyen [place]cal[place] PA-C Work Phone: [facility] 04-13-2022 09:01-0500 Heart rate 118 /min Nguyen Beth PA-C Work Phone: [facility] 04-13-2022 09:01-0500 SaO2% (BldA) [Mass fraction] 96 % Nguyen Beth PA-C Work Phone: [facility] 04-13-2022 09:01-0500 Systolic blood pressure 138 mm[Hg] Nguyen Mcalister[place] PA-C Work Phone: [facility] 04-10-2022 13:38-0500 Body height 160 cm Nguyen Beth PA-C Work Phone: [facility] 04-10-2022 13:38-0500 Body temperature 97.2 [degF] Nguyen Beth PA-C Work Phone: [facility] 04-10-2022 13:38-0500 Body weight 83.92 kg Nguyen [place]cal[place] PA-C Work Phone: [facility] 04-10-2022 13:38-0500 Diastolic blood pressure 58 mm[Hg] Nguyen [place]cal[place] PA-C Work Phone: [facility] 04-10-2022 13:38-0500 Heart rate 117 /min Nguyen [place]cal[place] PA-C Work Phone: [facility] 04-10-2022 13:38-0500 SaO2% (BldA) [Mass fraction] 93 % Nguyen [place]cal[place] PA-C Work Phone: [facility] 04-10-2022 13:38-0500 Systolic blood pressure 118 mm[Hg] Nguyen [place]cal[place] PA-C Work Phone: [facility] 04-03-2022 11:11-0500 Body height 160 cm Pac 1 Work Phone: [facility] 04-03-2022 11:11-0500 Body temperature 97.59 [degF] Pac 1 Work Phone: [facility] 04-03-2022 11:11-0500 Body weight 83.92 kg Pacc 1 Work Phone: [facility] 04-03-2022 11:11-0500 Diastolic blood pressure 70 mm[Hg] Pacc 1 Work Phone: [facility] 04-03-2022 11:11-0500 Heart rate 91 /min Pacc 1 Work Phone: [facility] 04-03-2022 11:11-0500 Respiratory rate 14 /min Pacc 1 Work Phone: [facility] 04-03-2022 11:11-0500 SaO2% (BldA) [Mass fraction] 97 % Pacc 1 Work Phone: [facility] 04-03-2022 11:11-0500 Systolic blood pressure 118 mm[Hg] Pacc 1 Work Phone: [facility] 03-24-2022 10:27-0500 Body height 160 cm Jessee Holloway MD Work Phone: [facility] 03-24-2022 10:27-0500 Body temperature 96.8 [degF] Jessee Holloway MD Work Phone: [facility] 03-24-2022 10:27-0500 Body weight 84.37 kg Jessee Holloway MD Work Phone: [facility] 03-24-2022 10:27-0500 Diastolic blood pressure 64 mm[Hg] Jessee Holloway MD Work Phone: [facility] 03-24-2022 10:27-0500 Heart rate 113 /min Jessee Holloway MD Work Phone: [facility] 03-24-2022 10:27-0500 SaO2% (BldA) [Mass fraction] 98 % Jessee Holloway MD Work Phone: [facility] 03-24-2022 10:27-0500 Systolic blood pressure 124 mm[Hg] Jessee Holloway MD Work Phone: [facility] 02-20-2022 09:30-0500 Body temperature 97.11 [degF] Jeff Simeon DO Work Phone: [facility] 02-20-2022 09:30-0500 Body weight 86.18 kg Jeff Simeon DO Work Phone: [facility] 02-20-2022 09:30-0500 Diastolic blood pressure 60 mm[Hg] Jeff Simeon DO Work Phone: [facility] 02-20-2022 09:30-0500 Heart rate 80 /min Jeff Simeon DO Work Phone: [facility] 02-20-2022 09:30-0500 Respiratory rate 16 /min Jeff Simeon DO Work Phone: [facility] 02-20-2022 09:30-0500 Systolic blood pressure 124 mm[Hg] Jeff Simeon DO Work Phone: [facility] 11-15-2021 09:11-0400 Body temperature 96.3 [degF] Jeff Simeon DO Work Phone: [facility] 11-15-2021 09:11-0400 Body weight 87.54 kg Jeff Simeon DO Work Phone: [facility] 11-15-2021 09:11-0400 Diastolic blood pressure 60 mm[Hg] Jeff Simeon DO Work Phone: [facility] 11-15-2021 09:11-0400 Heart rate 88 /min Jeff Simeon DO Work Phone: [facility] 11-15-2021 09:11-0400 Respiratory rate 16 /min Jeff Simeon DO Work Phone: [facility] 11-15-2021 09:11-0400 Systolic blood pressure 124 mm[Hg] Jeff Simeon DO Work Phone: [facility] 05-30-2021 09:15-0400 Body temperature 97 [degF] Jeff Simeon DO Work Phone: [facility] 05-30-2021 09:15-0400 Body weight 92.08 kg Jeff Simeon DO Work Phone: [facility] 05-30-2021 09:15-0400 Diastolic blood pressure 70 mm[Hg] Jeff Simeon DO Work Phone: [facility] 05-30-2021 09:15-0400 Heart rate 80 /min Jeff Simeon DO Work Phone: [facility] 05-30-2021 09:15-0400 Respiratory rate 20 /min Jeff Simeon DO Work Phone: [facility] 05-30-2021 09:15-0400 Systolic blood pressure 110 mm[Hg] Jeff Simeon DO Work Phone: [facility] Encounters Encounter Date Encounter Type Care Provider Facility Start: 01-15-2025 ambulatory Jeff Simeon Facilit y:[facility] Start: 12-23-2024 End: 12-23-2024 ambulatory JEFF L SIMEON Facility:[facility] Start: 12-22-2024 Encounter for other preprocedural examination Santosh Ballard [facility] Start: 12-19-2024 End: 12-19-2024 ambulatory FARRUKH DYE Facility:[facility] Start: 12-09-2024 End: 12-09-2024 ambulatory Jeff Simeon Facility:[facility] Start: 12-09-2024 End: 12-09-2024 ambulatory Jeff Simeon Facility:[facility] Start: 11-21-2024 End: 11-21-2024 ambulatory JEFF L SIMEON Facility:[facility] Start: 11-14-2024 End: 11-14-2024 ambulatory JEFF L SIMEON Facility:[facility] Start: 11-04-2024 End: 11-04-2024 Patient encounter procedure Jarrell Crystal DO -[facility] Work Phone: Start: 11-04-2024 End: 11-04-[address] Jeff Simeon DO Work Phone: -[facility] Start: 10-23-2024 End: 10-23-[address] Maco Singh MD -[facility] Work Phone: Start: 10-23-2024 End: 10-23-[address] Jeff Simeon DO Work Phone: -[facility] Start: 10-16-2024 ambulatory Maco Singh Facility:[facility] Start: 10-16-[address] Jayro Singh MD -[facility] Start: 09-15-2024 End: 09-15-2024 Refill Jeff Simeon DO Work Phone: [facility] Comment on above: Refill Request Start: 07-11-2024 End: 07-11-2024 Refill Jeff Simeon DO Work Phone: [facility] Comment on above: Refill Request Start: 05-30-2024 End: 05-30-2024 ambulatory Jeff Simeon Facility:[facility] Start: 05-28-2024 End: 07-28-2024 Follow-up encounter Jeff Simeon DO Work Phone: [facility] Comment on above: Results Start: 2024 End: 2024 Follow-up encounter Karson Woodward APRN.CNP Work Phone: [facility] Comment on above: Results Start: 2024 End: 2024 Subsequent hospital visit by physician [facility] Work Phone: Radiology Comment on above: Left leg swelling [M 79.89] Start: 2024 End: 2024 ambulatory JEFF SIMEON Facility:[facility] Start: 2024 End: 2024 ambulatory JEFF SIMEON Facility:[facility] Start: 2024 End: 2024 Patient encounter procedure Jeff Simeon DO Work Phone: [facility] Comment on above: Type 2 diabetes eliseo itus with hypertriglyceridemia (HCC) (Primary Dx); Hypothyroidism, acquired; Encounter for screening mammogram for malignant neoplasm of breast; Left leg swelling; Vitamin D deficiency; Vitamin B12 deficiency; Other iron deficiency anemia; Right leg swelling; Essential hypertension with goal blood pressure less than 130/80; S/P colectomy; Colon neoplasm Start: 2024 ambulatory Jeff Simeon Facilit y:[facility] Start: 05-06-2024 End: 05-06-2024 Patient encounter procedure Jarrellsuzan Crystal DO -[facility] Work Phone: Start: 05-06-2024 End: 05-06-2024 ambulatory Jeff Simeon Facility:[facility] Start: 04-29-2024 End: 05-12-[address] Maco Singh MD -[facility] Work Phone: Start: 04-29-2024 End: 05-12-[address] Jeff Simeon DO Work Phone: [facility] Work Phone: Start: 04-17-[address] Jayro Singh MD -[facility] Start: 04-17-2024 End: 04-17-[address] Maco Singh MD -[facility] Work Phone: Start: 04-17-2024 End: 04-17-2024 ambulatory Maco Singh Facility:[facility] Start: 02-14-2024 End: 03-05-2024 Telephone encounter Karson Woodward APRN.CNP Work Phone: [facility] Comment on above: call Dr. Singh's offi ce B12 injections Start: 02-14-2024 End: 02-14-2024 Office outpatient visit 40 minutes Karson Woodward APRN.CNP Work Phone: [facility] Comment on above: Essential hypertensi on with goal blood pressure less than 130/80 (Primary Dx); 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); Hypertriglyceridemia; Hypothyroidism, acquired; Other iron deficiency anemia; S/P colectomy Start: 02-14-2024 End: 02-14-2024 ambulatory KARSON WOODWARD Facility:[facility] Start: 02-04-2024 End: 02-04-2024 ambulatory [facility] Facility:[facility] Start: 02-01-2024 End: 02-01-2024 Telephone encounter Jeff Simeon DO Work Phone: [facility] Comment on above: Orders Start: 01-24-2024 End: 01-24-[address] Maco Singh MD -[facility] Work Phone: Start: 01-24-2024 End: 01-24-2024 ambulatory Maco Singh Facility:[facility] Start: 01-22-2024 End: 01-22-2024 Patient encounter procedure Adriana Olmedo [place] -[facility] Work Phone: Start: 01-22-2024 End: 01-22-2024 ambulatory Jeff Simeon Facility:[facility] Start: 11-20-2023 End: 11-20-2023 Patient encounter procedure Jeff Simeon DO Work Phone: [facility] Comment on above: Controlled type 2 di abetes mellitus without complication, without long-term current use of insulin (HCC) (Primary Dx); S/P colectomy; Bilateral lower extremity edema; Vitamin B12 deficiency; Hypokalemia; Colon neoplasm; Hypothyroidism, acquired; Weight loss; Muscle weakness; Gait abnormality Start: 11-14-2023 End: 11-15-2023 Telephone encounter Karsonradha Woodward YOLANDA Work Phone: [facility] Comment on above: Results Start: 11-12-2023 End: 11-13-2023 Nursing evaluation of patient and report Mi Nurse Work Phone: [facility] Comment on above: Vitamin B12 deficien cy (Primary Dx) Refill Request Start: 10-29-2023 End: 11-05-2023 Telephone encounter Jeff Simeon DO Work Phone: [facility] Comment on above: Patient Update; Medi cation Request Start: 10-29-2023 End: 10-29-2023 Nursing evaluation of patient and report Mi Nurse Work Phone: 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 Comment on above: Vitamin B12 deficien cy (Primary Dx) Refill Request Start: 10-01-2023 End: 10-03-2023 Telephone encounter Jeff Simeon DO Work Phone: [facility] Comment on above: Patient Update Start: 10-01-2023 End: 10-01-2023 Nursing evaluation of patient and report Mi Nurse Work Phone: [facility] Comment on above: Vitamin B12 deficien cy (Primary Dx) Start: 09-17-2023 End: 09-17-2023 Nursing evaluation of patient and report Mi Nurse Work Phone: [facility] Comment on above: Vitamin B12 deficien cy (Primary Dx) Start: 09-04-2023 Telephone encounter Jeff Simeon DO Work Phone: [facility] Comment on above: Orders Start: 09-03-2023 End: 09-03-2023 Nursing evaluation of patient and report Mi Nurse Work Phone: [facility] Comment on above: Vitamin B12 deficien cy (Primary Dx) Start: 08-20-2023 End: 08-20-2023 Nursing evaluation of patient and report Mi Nurse Work Phone: [facility] Comment on above: Vitamin B12 deficien cy (Primary Dx) Start: 08-07-2023 End: 08-07-2023 Nursing evaluation of patient and report Mi Nurse Work Phone: [facility] Comment on above: Vitamin B12 deficien cy (Primary Dx) Start: 07-18-2023 Refill Jeff Simeon DO Work Phone: [facility] Comment on above: Refill Request Start: 07-17-2023 End: 07-17-2023 Nursing evaluation of patient and report Mi Nurse Work Phone: [facility] Comment on above: Vitamin B12 deficien cy (Primary Dx) Start: 07-11-2023 End: 07-11-2023 Patient encounter procedure Sharyn Rodriguez PA-C Work Phone: [facility] Comment on above: Bilateral impacted c erumen (Primary Dx) Start: 06-25-2023 End: 07-02-2023 Patient encounter procedure Jeff Simeon DO Work Phone: 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 Comment on above: Results Start: 06-18-2023 Telephone encounter Jeff Simeon DO Work Phone: [facility] Comment on above: Lab Orders Start: 06-13-2023 End: 06-13-2023 Nursing evaluation of patient and report Mi Nurse Work Phone: [facility] Comment on above: Vitamin B12 deficien cy (Primary Dx) Start: 05-30-2023 End: 05-30-2023 Nursing evaluation of patient and report Mi Nurse Work Phone: [facility] Comment on above: Vitamin B12 deficien cy (Primary Dx) Start: 2023 End: [address] Jeff Simeon Work Phone: [facility] Work Phone: Start: 2023 End: [address] Jeff Simeon Work Phone: [facility] Work Phone: Start: 05-16-2023 End: 05-16-2023 Nursing evaluation of patient and report Mi Nurse Work Phone: [facility] Comment on above: Vitamin B12 deficien cy (Primary Dx) Start: 05-02-2023 End: 05-02-2023 Nursing evaluation of patient and report Mi Nurse Work Phone: [facility] Comment on above: Vitamin B12 deficien cy (Primary Dx) Start: 04-16-2023 End: 04-16-2023 Nursing evaluation of patient and report Mi Nurse Work Phone: [facility] Comment on above: Vitamin B12 deficien cy (Primary Dx) Start: 04-12-2023 End: 04-12-[address] Jeff Simeon Work Phone: [facility] Work Phone: Start: 04-11-2023 End: 04-11-[address] Jeff Simeon Work Phone: [facility] Work Phone: Start: 04-11-2023 End: 04-11-[address] Jeff Simeon Work Phone: [facility] Work Phone: Start: 04-04-2023 End: 04-04-[address] Jeff Simeon Work Phone: [facility] Work Phone: Start: 04-04-2023 Non-patient / Non-visit Dr. Sandra Simeon Work Phone: [facility] Start: 04-04-2023 End: 04-04-2023 Nursing evaluation of patient and report Mi Nurse Work Phone: [facility] Comment on above: Vitamin B12 deficien cy (Primary Dx) Start: 04-04-2023 End: 04-04-[address] Jeff Simeon Work Phone: [facility] Work Phone: Start: 03-22-2023 End: 03-22-[address] Jeff Simeon Work Phone: [facility] Work Phone: Start: 03-22-2023 End: 03-22-2023 Nursing evaluation of patient and report Mi Nurse Work Phone: [facility] Comment on above: Vitamin B12 deficien cy (Primary Dx) Start: 03-22-[address] Denver Simeon Work Phone: [facility] Start: 03-21-2023 End: 03-21-[address] Jeff Simeon Work Phone: [facility] Work Phone: Start: 03-19-2023 End: 03-19-2023 Patient encounter procedure Karson Woodward APRN.CNP Work Phone: [facility] Comment on above: Colon neoplasm (Prim kevin Dx); S/P colectomy; Nausea Start: 03-15-2023 End: 03-15-[address] Jeff Simeon Work Phone: [facility] Work Phone: Start: 03-15-2023 Patient Outreach Tiffany moreau lab engineerEntry Level Chemist Management Comment on above: Transition Of Care ( TCM Initial Outreach: [facility] 03/11/23, RLQ abdominal pain) Start: 03-11-2023 Non-patient / Non-visit Dr. Sandra Simeon Work Phone: [facility] Work Phone: Start: 03-10-2023 Non-patient / Non-visit Dr. Sandra Simeon Work Phone: [facility] Work Phone: Start: 03-10-2023 Non-patient / Non-visit Dr. Sandra Simeon Work Phone: [facility] Start: 03-09-2023 Non-patient / Non-visit Dr. Sandra Simeon Work Phone: [facility] Work Phone: Start: 03-09-2023 Non-patient / Non-visit Dr. Sandra Simeon Work Phone: [facility] Start: 03-08-2023 Non-patient / Non-visit Dr. Sandra Simeon Work Phone: [facility] Work Phone: Start: 03-08-2023 Non-patient / Non-visit Dr. Sandra Simeon Work Phone: [facility] Start: 03-07-2023 Non-patient / Non-visit Dr. Sandra Simeon Work Phone: [facility] Work Phone: Start: 03-07-2023 Non-patient / Non-visit Dr. Sandra Simeon Work Phone: [facility] Start: 03-06-2023 Non-patient / Non-visit Dr. Sandra Simeon Work Phone: [facility] Work Phone: Start: 03-05-2023 Non-patient / Non-visit Dr. Sadnra Simeon Work Phone: [facility] Start: 03-05-2023 End: 03-11-2023 Evaluation and management of inpatient Dr. Jeff Simeon Work Phone: [facility] Work Phone: Start: 01-25-2023 End: 01-25-2023 Nursing evaluation of patient and report Mi Nurse Work Phone: [facility] Comment on above: Vitamin B12 deficien cy (Primary Dx) Start: 12-28-2022 End: 12-28-2022 Nursing evaluation of patient and report Mi Nurse Work Phone: [facility] Comment on above: Vitamin B12 deficien cy (Primary Dx) Start: 12-08-2022 End: 12-08-2022 Patient encounter procedure Jeff Simeon DO Work Phone: [facility] Comment on above: Controlled type 2 di abetes mellitus without complication, without long-term current use of insulin (HCC) (Primary Dx); Elevated alkaline phosphatase level; Vitamin B12 deficiency; Hypothyroidism, acquired; Iron deficiency; Vitamin D deficiency; Hypertriglyceridemia; Fatigue, unspecified type; Fatty liver Start: 11-30-2022 End: 11-30-2022 Nursing evaluation of patient and report Mi Nurse Work Phone: [facility] Comment on above: Vitamin B12 deficien cy (Primary Dx) Start: 11-16-2022 End: 11-16-2022 Nursing evaluation of patient and report Mi Nurse Work Phone: [facility] Comment on above: Vitamin B12 deficien cy (Primary Dx) Start: 11-03-2022 End: 11-03-2022 Nursing evaluation of patient and report Mi Nurse Work Phone: [facility] Comment on above: Vitamin B12 deficien cy (Primary Dx) Start: 10-17-2022 End: 10-17-2022 Nursing evaluation of patient and report Mi Nurse Work Phone: [facility] Comment on above: Vitamin B12 deficien cy (Primary Dx) Start: 10-05-2022 Telephone encounter [facility] Start: 10-02-2022 End: 10-02-2022 Nursing evaluation of patient and report Mi Nurse Work Phone: [facility] Comment on above: Vitamin B12 deficien cy (Primary Dx) Start: 09-19-2022 End: 09-19-2022 Nursing evaluation of patient and report Mi Nurse Work Phone: [facility] Comment on above: Vitamin B12 deficien cy (Primary Dx) Start: 08-07-2022 End: 08-07-2022 Nursing evaluation of patient and report Mi Nurse Work Phone: [facility] Comment on above: Other vitamin B12 de ficiency anemia (Primary Dx) Start: 07-11-2022 End: 07-11-2022 Nursing evaluation of patient and report Mi Nurse Work Phone: [facility] Comment on above: Other vitamin B12 de ficiency anemia (Primary Dx) Start: 06-12-2022 End: 06-12-2022 Nursing evaluation of patient and report Mi Nurse Work Phone: [facility] Comment on above: Other vitamin B12 de ficiency anemia (Primary Dx) Start: 05-24-2022 End: 05-24-2022 Patient encounter procedure Jeff Steele Simeon DO Work Phone: [facility] Comment on above: Controlled type 2 di abetes mellitus without complication, without long-term current use of insulin (HCC) (Primary Dx); RUQ abdominal pain; Calculus of gallbladder without cholecystitis without obstruction; Fatty liver; Hypothyroidism, acquired; Vitamin D deficiency; Other vitamin B12 deficiency anemia; Iron deficiency Start: 05-22-2022 End: 05-22-2022 ambulatory [facility] Work Phone: Start: 05-22-2022 End: 05-22-2022 Patient encounter procedure [facility] Start: 05-15-2022 End: 05-15-2022 Nursing evaluation of patient and report Mi Nurse Work Phone: [facility] Comment on above: Vitamin B12 deficien [...] Start: 04-05-2022 End: 04-06-2022 ambulatory JESSEE HOLLOWAY Facility:[facility] Start: 04-03-2022 End: 04-03-2022 Admission to establishment [facility] 1 Work Phone: [facility] [place] Start: 04-03-2022 End: 04-03-2022 ambulatory [...] patient and report Mi Nurse Work Phone: [facility] [place] Comment on above: Vitamin B12 deficien cy (Primary Dx) Start: 03-16-2022 Telephone encounter Jeff Simeon DO Work Phone: [facility] Comment on above: Results Start: 02-20-2022 End: 02-20-2022 Patient encounter procedure Jeff Simeon DO Work Phone: [facility] Comment on above: Controlled type 2 di abetes mellitus without complication, without long-term current use of insulin (HCC) (Primary Dx); Encounter for screening mammogram for malignant neoplasm of breast; Hypothyroidism, acquired; Vitamin B12 deficiency; Other vitamin B12 deficiency anemia; Vitamin D deficiency; Iron deficiency; Malabsorption syndrome; Hypertriglyceridemia Start: 01-17-2022 End: 01-17-2022 Nursing evaluation of patient and report Mi Nurse Work Phone: [facility] [place] Comment on above: Vitamin B12 deficien cy (Primary Dx) Start: 12-20-2021 End: 12-20-2021 Nursing evaluation of patient and report Mi Nurse Work Phone: [facility] [place] Comment on above: Vitamin B12 deficien cy (Primary Dx) Start: 11-15-2021 End: 11-15-2021 Patient encounter procedure Jeff Simeon DO Work Phone: [facility] [place] Comment on above: Uncontrolled type 2 diabetes mellitus with hyperglycemia (HCC) (Primary Dx); Vitamin B12 deficiency; Controlled type 2 diabetes mellitus without complication, without long-term current use of insulin (HCC); Hypothyroidism, acquired; Other vitamin B12 deficiency anemia; Iron deficiency; Vitamin D deficiency Start: 10-20-2021 End: 10-20-2021 Nursing evaluation of patient and report Mi Nurse Work Phone: [facility] [place] Comment on above: Vitamin B12 deficien cy (Primary Dx) Start: 07-18-2021 End: 07-18-2021 Nursing evaluation of patient and report Mi Nurse Work Phone: [facility] [place] Comment on above: Vitamin B12 deficien cy (Primary Dx) Start: 07-04-2021 End: 07-04-2021 Nursing evaluation of patient and report Mi Nurse Work Phone: [facility] [place] Comment on above: Vitamin B12 deficien cy (Primary Dx) Start: 06-20-2021 End: 06-20-2021 Nursing evaluation of patient and report Mi Nurse Work Phone: [facility] [place] Comment on above: Vitamin B12 deficien cy (Primary Dx) Start: 06-06-2021 End: 06-06-2021 Nursing evaluation of patient and report Mi Nurse Work Phone: [facility] [place] Comment on above: Vitamin B12 deficien cy (Primary Dx) Start: 05-30-2021 End: 05-30-2021 Patient encounter procedure Jeff Simeon DO Work Phone: [facility] [place] Comment on above: Controlled type 2 di abetes mellitus without complication, without long-term current use of insulin (HCC) (Primary Dx); Vitamin B12 deficiency; Malabsorption syndrome; Other vitamin B12 deficiency anemia; Fatigue, unspecified type; Other iron deficiency anemia; Hypothyroidism, acquired; Hypertriglyceridemia Start: 05-25-2021 Telephone encounter Karson Angeles YOLANDA Work Phone: [facility] [place] Comment on above: Results Start: 05-20-2021 End: 05-20-2021 Patient encounter procedure [facility] Start: 05-18-2021 Telephone encounter Jeff Simeon DO Work Phone: [facility] [place] Comment on above: Orders Start: 08-25-2020 End: 08-25-2020 Subsequent hospital visit by physician Xr [facility] [place] Work Phone: Radiology Comment on above: Chronic pain of righ t ankle [M25.571, G89.29] Start: 02-26-2018 End: 02-26-2018 Patient encounter procedure TIFFANYPura SETHI EDUARDO [facility] Procedures Date Procedure Procedure Detail [...] the presence orabsence of malignant disease.Performed at: [address] [id number] Director: Flako Araujo PhD, Phone: [phone] Start: 04-17-[address] Jeff Simeon DO [...] colitis,primary sclerosing cholangitis and autoimmune hepatitis.Performed at: [address] [id number] Director: Chary Cox MD, Phone: [phone] at: [address] [id number] Director: Flako Araujo PhD, Phone: [phone] Start: 11-19-2023 Antibody to centromere measurement Dr. [...] <45 Equivocal: 45-50 Positive: >50 Start: 11-19-2023 BUSINESS ANALYSIS ANALYST antibody measurement Dr. Jeff Simeon DO Work [...] Activity Detail Author Start: 02-27-2028 Colonoscopy COLONOSCOPY [facility] Start: 02-27-2028 COLORECTAL CANCER SCREENING COLORECTAL CANCER SCREENING [facility] Start: 02-27-2028 Screening for malignant neoplasm of colon [facility] Start: 2025 Annual PCP Team Chronic Disease Visit Annual PCP Team Chronic Disease Visit [facility] Start: 2025 BP Controlled (<130/80) BP Controlled (<130/80) [facility] Start: 2025 Covid-19 Vaccine () Covid-19 Vaccine () [facility] Comment on above: Postponed from 10/14/2023 (Declined at t his time) Start: 04-09-2025 Vitamin B12 measurement [facility] Start: 02-13-2025 Annual PCP Team Chronic Disease Visit Annual PCP Team Chronic Disease Visit [facility] Start: 02-13-2025 BP Controlled (<130/80) BP Controlled (<130/80) [facility] Start: 02-03-2025 Hepatitis B surface antibody level LDL Cholesterol [facility] Start: 01-03-2025 Glaucoma screening Dilated Retinal Exam [facility] Start: 11-21-2024 End: 11-21-2024 Patient encounter procedure 11/21/2024 9:40 AM EDT Office Visit Family Dale Garcia [address] [place] [id number] Jeff Simeon DO [address] [place] [id number] 6 month follow up Family Dale Garcia Comment on above: 6 month follow up Start: 11-19-2024 Annual PCP Team Chronic Disease Visit Annual PCP Team Chronic Disease Visit [facility] Start: 11-19-2024 BP Controlled (<130/80) BP Controlled (<130/80) [facility] Start: 10-23-2024 Annual PCP Team Chronic Disease Visit Annual PCP Team Chronic Disease Visit [facility] Start: 10-23-2024 BP Controlled (<130/80) BP Controlled (<130/80) [facility] Start: 10-13-2024 Influenza vaccination [facility] Start: 08-11-2024 Influenza [facility] Comment on above: Postponed from 10/14/2023 (Declined at t his time) Start: 08-04-2024 Hemoglobin A1c measurement HbA1C [facility] Start: 06-24-2024 Annual PCP Team Chronic Disease Visit Annual PCP Team Chronic Disease Visit [facility] Start: 06-24-2024 Anxiety Screening Anxiety Screening [facility] Start: 06-24-2024 BP Controlled (<130/80) BP Controlled (<130/80) [facility] Start: 06-24-2024 Depression Screening Depression Screening [facility] Start: 2024 End: 08-22-2024 25-hydroxyvitamin D3 [Mass/volume] in Serum or Plasma [facility] Comment on above: Expected: 2024, Expires: Start: 2024 End: 08-22-2024 Cobalamin (Vitamin B12) [Mass/volume] in Serum or Plasma [facility] Comment on above: Expected: 2024, Expires: Start: 2024 End: 08-22-2024 Thyrotropin [Units/volume] in Serum or Plasma [facility] Comment on above: Expected: 2024, Expires: Start: 2024 End: 08-22-2024 Thyroxine (T4) free [Mass/volume] in Serum or Plasma [facility] Comment on above: Expected: 2024, Expires: Start: 2024 End: 2024 Patient encounter procedure 2024 9:40 AM EDT Office Visit [facility] [place] [address] [place], [place] [id number] Jeff Simeon DO [address] [place] [address] 3 month follow up Family Dale Garcia Comment on above: 3 month follow up Start: 05-13-2024 Hemoglobin A1c measurement HbA1C [facility] Start: 03-19-2024 Annual PCP Team Chronic Disease Visit Annual PCP Team Chronic Disease Visit [facility] Start: 03-19-2024 BP Controlled (<130/80) BP Controlled (<130/80) [facility] Start: 02-27-2024 Patient referral [facility] Work Phone: Start: 02-14-2024 End: 02-14-2024 Patient encounter procedure 02/14/2024 10:20 AM EST Office Visit Family Dale Garcia [address] [place] [address] Karson Woodward APRN.SHUTDOWN COORDINATOR [address] [place] [address] 3 mo follow up Family Dale Garcia Comment on above: 3 mo follow up Start: 02-13-2024 Medicare [facility] Annual Wellness Visit Medicare [facility] Annual Wellness Visit [facility] Start: 02-01-2024 End: 05-02-2024 25-hydroxyvitamin D3 [Mass/volume] in Serum or Plasma VITAMIN D 25 HYDROXY Lab Routine Vitamin D deficiency Expected: 02/01/2024, Expires: 05/02/2024 [facility] Comment on above: Expected: 02/01/2024, Expires: Start: 02-01-2024 End: 05-02-2024 CBC panel - Blood by Automated count COMPLETE BLOOD COUNT Lab Routine Essential hypertension with goal blood pressure less than 130/80 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) Iron deficiency Expected: 02/01/2024, Expires: 05/02/2024 [facility] Comment on above: Expected: 02/01/2024, Expires: Start: 02-01-2024 End: 05-02-2024 Cobalamin (Vitamin B12) [Mass/volume] in Serum or Plasma VITAMIN B12 Lab Routine Vitamin B12 deficiency Expected: 02/01/2024, Expires: 05/02/2024 [facility] Comment on above: Expected: 02/01/2024, Expires: Start: 02-01-2024 End: 05-02-2024 Comprehensive metabolic 2000 panel - Serum or Plasma COMPREHENSIVE METABOLIC PANEL Lab Routine Essential hypertension with goal blood pressure less than 130/80 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) Fatty liver Expected: 02/01/2024, Expires: 05/02/2024 [facility] Comment on above: Expected: 02/01/2024, Expires: Start: 02-01-2024 End: 05-02-2024 Ferritin [Mass/volume] in Serum or Plasma FERRITIN Lab Routine Iron deficiency Expected: 02/01/2024, Expires: 05/02/2024 [facility] Comment on above: Expected: 02/01/2024, Expires: Start: 02-01-2024 End: 05-02-2024 Hemoglobin A1c in Blood HEMOGLOBIN A1C Lab Routine 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) Expected: 02/01/2024, Expires: 05/02/2024 [facility] Work Phone: Comment on above: Expected: 02/01/2024, Expires: Start: 02-01-2024 End: 05-02-2024 Iron and Iron binding capacity panel - Serum or Plasma IRON AND TIBC Lab Routine Iron deficiency Expected: 02/01/2024, Expires: 05/02/2024 [facility] Comment on above: Expected: 02/01/2024, Expires: Start: 02-01-2024 End: 05-02-2024 Lipid 1996 panel - Serum or Plasma LIPID PANEL BASIC Lab Routine Hypertriglyceridemia Expected: 02/01/2024, Expires: 05/02/2024 [facility] Comment on above: Expected: 02/01/2024, Expires: Start: 02-01-2024 End: 05-02-2024 Thyrotropin [Units/volume] in Serum or Plasma THYROID STIMULATING HORMONE Lab Routine Hypothyroidism, acquired Expected: 02/01/2024, Expires: 05/02/2024 [facility] Comment on above: Expected: 02/01/2024, Expires: 5 Start: 02-01-2024 End: 05-02-2024 Thyroxine (T4) free [Mass/volume] in Serum or Plasma T4 FREE/FREE THYROXINE Lab Routine Hypothyroidism, acquired Expected: 02/01/2024, Expires: 05/02/2024 [facility] Comment on above: Expected: 02/01/2024, Expires: 5 Start: 01-23-2024 End: 04-23-2024 CBC panel - Blood by Automated count COMPLETE BLOOD COUNT Lab Routine Iron deficiency Expected: 01/23/2024, Expires: 04/23/2024 [facility] Work Phone: Comment on above: Expected: 01/23/2024, Expires: Start: 12-21-2023 Hemoglobin A1c measurement HbA1C [facility] Start: 12-09-2023 Annual PCP Team Chronic Disease Visit Annual PCP Team Chronic Disease Visit [facility] Start: 12-09-2023 BP Controlled (<130/80) BP Controlled (<130/80) [facility] Start: 12-09-2023 Covid-19 Vaccine () Covid-19 Vaccine () [facility] Comment on above: Postponed from 10/13/2022 (Declined at t his time) Start: 12-01-2023 Hepatitis B screening Urine Albumin:Creatinine Ratio [facility] Start: 12-01-2023 Hepatitis B surface antibody level LDL Cholesterol [facility] Start: 11-28-2023 End: 02-27-2024 Potassium [Moles/volume] in Serum or Plasma POTASSIUM Lab Routine Hypokalemia Expected: 11/28/2023 (Approximate), Expires: 02/27/2024 [facility] Work Phone: Comment on above: Expected: 11/28/2023 (Approximate), Expi res: 02/27/2024 Start: 11-26-2023 End: 11-26-2023 Nursing evaluation of patient and report 11/26/2023 10:00 AM EDT Nurse Visit [facility] [address] [place] [address] Nurse, Pr [address] [place] [address] B-12 injection [facility] [place] Comment on above: B-12 injection Start: 11-20-2023 End: 11-20-2023 Patient encounter procedure 11/20/2023 8:40 AM EDT Office Visit Family Dale Garcia [address] [place] [address] Jeff Simeon DO [address] [place] [address] 3 month follow up [facility] [place] Comment on above: 3 month follow up Start: 11-12-2023 End: 11-12-2023 Nursing evaluation of patient and report 11/12/2023 10:45 AM EDT Nurse Visit [facility] [address] [place] [address] Nurse, Pr [address] [place] [address] B-12 injection [facility] [place] Comment on above: B-12 injection Start: 10-29-2023 End: 10-29-2023 Nursing evaluation of patient and report 10/29/2023 9:45 AM EDT Nurse Visit [facility] [address] [place] [address] Nurse, Pr [address] [place] [address] B-12 injection [facility] [place] Comment on above: B-12 injection Start: 10-24-2023 End: 01-23-2024 25-hydroxyvitamin D3 [Mass/volume] in Serum or Plasma VITAMIN D 25 HYDROXY Lab Routine Vitamin D deficiency Expected: 10/24/2023, Expires: 01/23/2024 [facility] Comment on above: Expected: 10/24/2023, Expires: Start: 10-24-2023 End: 01-23-2024 Cobalamin (Vitamin B12) [Mass/volume] in Serum or Plasma VITAMIN B12 Lab Routine Vitamin B12 deficiency Expected: 10/24/2023, Expires: 01/23/2024 [facility] Comment on above: Expected: 10/24/2023, Expires: Start: 10-24-2023 End: 01-23-2024 Comprehensive metabolic 2000 panel - Serum or Plasma COMPREHENSIVE METABOLIC PANEL Lab Routine 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) Expected: 10/24/2023, Expires: 01/23/2024 [facility] Comment on above: Expected: 10/24/2023, Expires: 4 Start: 10-24-2023 End: 01-23-2024 Ferritin [Mass/volume] in Serum or Plasma FERRITIN Lab Routine Iron deficiency Expected: 10/24/2023, Expires: 01/23/2024 [facility] Comment on above: Expected: 10/24/2023, Expires: Start: 10-24-2023 End: 01-23-2024 Hemoglobin A1c in Blood HEMOGLOBIN A1C Lab Routine 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) Expected: 10/24/2023, Expires: 01/23/2024 [facility] Comment on above: Expected: 10/24/2023, Expires: Start: 10-24-2023 End: 01-23-2024 Iron and Iron binding capacity panel - Serum or Plasma IRON AND TIBC Lab Routine Iron deficiency Expected: 10/24/2023, Expires: 01/23/2024 [facility] Comment on above: Expected: 10/24/2023, Expires: 4 Start: 10-24-2023 End: 01-23-2024 Thyrotropin [Units/volume] in Serum or Plasma THYROID STIMULATING HORMONE Lab Routine Hypothyroidism, acquired Expected: 10/24/2023, Expires: 01/23/2024 [facility] Comment on above: Expected: 10/24/2023, Expires: Start: 10-24-2023 End: 01-23-2024 Thyroxine (T4) free [Mass/volume] in Serum or Plasma T4 FREE/FREE THYROXINE Lab Routine Hypothyroidism, acquired Expected: 10/24/2023, Expires: 01/23/2024 [facility] Comment on above: Expected: 10/24/2023, Expires: Start: 10-16-2023 End: 10-16-2023 Nursing evaluation of patient and report 10/16/2023 9:45 AM EDT Nurse Visit [facility] [address] [place] [address] Nurse, Pr [address] [place] [address] B-12 injection [facility] [place] Comment on above: B-12 injection Start: 10-14-2023 Covid-19 Vaccine () Covid-19 Vaccine () [facility] Start: 10-14-2023 Covid-19 Vaccine () Covid-19 Vaccine () [facility] Start: 10-14-2023 Influenza vaccination [facility] Start: 10-01-2023 End: 10-01-2023 Nursing evaluation of patient and report 10/01/2023 9:45 AM EDT Nurse Visit [facility] [place] [address] [place] [address] Nurse, Pr [address] [place] [address] B-12 injection [facility] [place] Comment on above: B-12 injection Start: 09-17-2023 End: 09-17-2023 Nursing evaluation of patient and report 09/17/2023 9:45 AM EDT Nurse Visit [facility] [address] [place] [address] Nurse, Pr [address] [place] [address] B-12 injection [facility] [place] Comment on above: B-12 injection Start: 09-06-2023 3 comp foot exam completed DIABETIC FOOT EXAM [facility] Start: 09-06-2023 ANNUAL PCP TEAM CHRONIC DISEASE VISIT ANNUAL PCP TEAM CHRONIC DISEASE VISIT [facility] Start: 09-06-2023 BP CONTROLLED (<130/80) BP CONTROLLED (<130/80) [facility] Start: 09-06-2023 Diabetic foot examination Diabetic Foot Exam [facility] Start: 09-03-2023 End: 09-03-2023 Nursing evaluation of patient and report 09/03/2023 9:45 AM EDT Nurse Visit [facility] [address] [place] [address] Nurse, Pr [address] [place] [address] B-12 injection [facility] [place] Comment on above: B-12 injection Start: 08-29-2023 Hemoglobin A1c measurement HbA1C [facility] Start: 08-20-2023 End: 08-20-2023 Nursing evaluation of patient and report 08/20/2023 9:45 AM EDT Nurse Visit [facility] [place] [address] [place] [address] Nurse, Pr [address] [place] [address] B-12 injection [facility] [place] Comment on above: B-12 injection Start: 08-12-2023 Influenza vaccination Influ[facility] Vaccine (#[facility] Comment on above: Postponed from 10/13/2022 (Declined at t his time) Start: 08-07-2023 End: 08-07-2023 Nursing evaluation of patient and report 08/07/2023 10:15 AM EDT Nurse Visit [facility] [place] [address] [facility] [place] [address] Nurse, Pr [address] [place] [address] B-12 injection [facility] [place] Comment on above: B-12 injection Start: 07-17-2023 End: 07-17-2023 Nursing evaluation of patient and report 07/17/2023 10:00 AM EDT Nurse Visit [facility] [address] [place] [address] Nurse, Pr [address] [place] [address] B-12 injection [facility] [place] Comment on above: B-12 injection Start: 06-25-2023 End: 06-25-2023 Patient encounter procedure 06/25/2023 3:00 PM EDT Office Visit [facility] [place] [address] [facility] [place] [address] Jeff Simeon DO [address] [place] [address] 3 month follow up; B-12 injection [facility] [place] Comment on above: 3 month follow up; B-12 injection Start: 06-18-2023 End: 09-17-2023 25-hydroxyvitamin D3 [Mass/volume] in Serum or Plasma VITAMIN D 25 HYDROXY Lab Routine Vitamin D deficiency Expected: 06/18/2023, Expires: 09/17/2023 [facility] Comment on above: Expected: 06/18/2023, Expires: Start: 06-18-2023 End: 09-17-2023 CBC panel - Blood by Automated count COMPLETE BLOOD COUNT Lab Routine Controlled type 2 diabetes mellitus without complication, without long-term current use of insulin ([facility]) Expected: 06/18/2023, Expires: 09/17/2023 [facility] Comment on above: Expected: 06/18/2023, Expires: Start: 06-18-2023 End: 09-17-2023 Cobalamin (Vitamin B12) [Mass/volume] in Serum or Plasma VITAMIN B12 Lab Routine Vitamin B12 deficiency Expected: 06/18/2023, Expires: 09/17/2023 [facility] Comment on above: Expected: 06/18/2023, Expires: Start: 06-18-2023 End: 09-17-2023 Comprehensive metabolic 2000 panel - Serum or Plasma COMPREHENSIVE METABOLIC PANEL Lab Routine Controlled type 2 diabetes mellitus without complication, without long-term current use of insulin (HCC) Expected: 06/18/2023, Expires: 09/17/2023 [facility] Comment on above: Expected: 06/18/2023, Expires: Start: 06-18-2023 End: 09-17-2023 Hemoglobin A1c in Blood HEMOGLOBIN A1C Lab Routine Controlled type 2 diabetes mellitus without complication, without long-term current use of insulin (HCC) Expected: 06/18/2023, Expires: 09/17/2023 [facility] Comment on above: Expected: 06/18/2023, Expires: Start: 06-18-2023 End: 09-17-2023 Iron and Iron binding capacity panel - Serum or Plasma IRON AND TIBC Lab Routine Iron deficiency Expected: 06/18/2023, Expires: 09/17/2023 [facility] Comment on above: Expected: 06/18/2023, Expires: Start: 06-18-2023 End: 09-17-2023 Thyrotropin [Units/volume] in Serum or Plasma THYROID STIMULATING HORMONE Lab Routine Hypothyroidism, acquired Expected: 06/18/2023, Expires: 09/17/2023 [facility] Work Phone: Comment on above: Expected: 06/18/2023, Expires: Start: 06-18-2023 End: 09-17-2023 Thyroxine (T4) free [Mass/volume] in Serum or Plasma T4 FREE/FREE THYROXINE Lab Routine Hypothyroidism, acquired Expected: 06/18/2023, Expires: 09/17/2023 [facility] Comment on above: Expected: 06/18/2023, Expires: Start: 06-01-2023 Hemoglobin A1c measurement HbA1C [facility] Start: 06-01-2023 Hemoglobin A1c/Hemoglobin.total in Blood HbA1C [facility] Start: 05-25-2023 ANNUAL PCP TEAM CHRONIC DISEASE VISIT ANNUAL PCP TEAM CHRONIC DISEASE VISIT [facility] Start: 05-18-2023 Hepatitis B surface antibody level LDL CHOLESTEROL [facility] Start: 04-12-2023 Patient referral [facility] Work Phone: Start: 04-03-2023 BP CONTROLLED (<130/80) BP CONTROLLED (<130/80) [facility] Start: 03-24-2023 BP CONTROLLED (<130/80) BP CONTROLLED (<130/80) [facility] Start: 03-15-2023 Patient referral [facility] Work Phone: Start: 03-11-2023 Patient discharge [facility] Start: 03-10-2023 End: 06-09-2023 25-hydroxyvitamin D3 [Mass/volume] in Serum or Plasma VITAMIN D 25 HYDROXY Lab Routine Vitamin D deficiency Expected: 03/10/2023, Expires: 06/09/2023 [facility] Work Phone: Comment on above: Expected: 03/10/2023, Expires: Start: 03-10-2023 End: 06-09-2023 CBC panel - Blood by Automated count CBC Lab Routine Controlled type 2 diabetes mellitus without complication, without long-term current use of insulin (HCC) Iron deficiency Expected: 03/10/2023, Expires: 06/09/2023 [facility] Work Phone: Comment on above: Expected: 03/10/2023, Expires: Start: 03-10-2023 End: 06-09-2023 Cobalamin (Vitamin B12) [Mass/volume] in Serum or Plasma VITAMIN B12 BLOOD Lab Routine Vitamin B12 deficiency Expected: 03/10/2023, Expires: 06/09/2023 [facility] Work Phone: Comment on above: Expected: 03/10/2023, Expires: Start: 03-10-2023 End: 06-09-2023 Comprehensive metabolic 2000 panel - Serum or Plasma COMP METABOLIC PANEL Lab Routine Controlled type 2 diabetes mellitus without complication, without long-term current use of insulin (HCC) Iron deficiency Expected: 03/10/2023, Expires: 06/09/2023 [facility] Work Phone: Comment on above: Expected: 03/10/2023, Expires: Start: 03-10-2023 End: 06-09-2023 Hemoglobin A1c in Blood HGB A1C Lab Routine Controlled type 2 diabetes mellitus without complication, without long-term current use of insulin (HCC) Expected: 03/10/2023, Expires: 06/09/2023 [facility] Work Phone: Comment on above: Expected: 03/10/2023, Expires: Start: 03-10-2023 End: 06-09-2023 Iron and Iron binding capacity panel - Serum or Plasma IRON + TIBC Lab Routine Iron deficiency Expected: 03/10/2023, Expires: 06/09/2023 [facility] Work Phone: Comment on above: Expected: 03/10/2023, Expires: Start: 03-07-2023 [facility] Start: 03-06-2023 Computed tomography of abdomen and pelvis with contrast Abdomen/Pelvis WITH Contrast [facility] Start: 03-06-2023 Care regimes management [facility] Start: 03-06-2023 Notification of physician [facility] Start: 03-06-2023 [facility] Start: 03-06-2023 Consultation [facility] Start: 03-06-2023 Blood chemistry [facility] Start: 03-05-2023 Following clinical pathway protocol [facility] Start: 03-05-2023 Application of intermittent pneumatic compression device [facility] Start: 03-05-2023 Hospital admission, emergency, from emergency room, medical nature [facility] Start: 03-05-2023 Incentive spirometry [facility] Start: 03-05-2023 [facility] Start: 03-05-2023 Admission procedure [facility] Start: 03-01-2023 Hemoglobin A1c/Hemoglobin.total in Blood HBA1C [facility] Start: 02-20-2023 ANNUAL PCP TEAM CHRONIC DISEASE VISIT ANNUAL PCP TEAM CHRONIC DISEASE VISIT [facility] Start: 02-20-2023 BP CONTROLLED (<130/80) BP CONTROLLED (<130/80) [facility] Start: 02-12-2023 Behavioral Health Screening Behavioral Health Screening [facility] Start: 02-12-2023 Depression Assessment Depression Assessment [facility] Start: 12-27-2022 Glaucoma screening Dilated Retinal Exam [facility] Start: 12-27-2022 Hepatitis C antibody, confirmatory test DILATED RETINAL EXAM [facility] Start: 11-16-2022 Hemoglobin A1c/Hemoglobin.total in Blood HBA1C [facility] Start: 11-15-2022 ANNUAL PCP TEAM CHRONIC DISEASE VISIT ANNUAL PCP TEAM CHRONIC DISEASE VISIT [facility] Start: 11-15-2022 BP CONTROLLED (<130/80) BP CONTROLLED (<130/80) [facility] Start: 10-13-2022 Covid-19 Vaccine () Covid-19 Vaccine () [facility] Start: 10-13-2022 Influenza vaccination [facility] Start: 10-05-2022 Hepatitis C antibody, confirmatory test DILATED RETINAL EXAM [facility] Start: 08-24-2022 Adult depression screening assessment DEPRESSION SCREENING [facility] Start: 08-24-2022 ANNUAL PCP TEAM CHRONIC DISEASE VISIT ANNUAL PCP TEAM CHRONIC DISEASE VISIT [facility] Start: 08-24-2022 BP CONTROLLED (<130/80) BP CONTROLLED (<130/80) [facility] Start: 08-23-2022 End: 10-23-2022 25-hydroxyvitamin D3 [Mass/volume] in Serum or Plasma VITAMIN D 25 HYDROXY Lab Routine Vitamin D deficiency Expected: 08/23/2022, Expires: 10/23/2022 [facility] Work Phone: Comment on above: Expected: 08/23/2022, Expires: 3 Start: 08-23-2022 End: 10-23-2022 CBC panel - Blood by Automated count CBC Lab Routine Iron deficiency Expected: 08/23/2022, Expires: 10/23/2022 [facility] Work Phone: Comment on above: Expected: 08/23/2022, Expires: 3 Start: 08-23-2022 End: 10-23-2022 Cobalamin (Vitamin B12) [Mass/volume] in Serum or Plasma VITAMIN B12 BLOOD Lab Routine Other vitamin B12 deficiency anemia Expected: 08/23/2022, Expires: 10/23/2022 [facility] Work Phone: Comment on above: Expected: 08/23/2022, Expires: 3 Start: 08-23-2022 End: 10-23-2022 Comprehensive metabolic 2000 panel - Serum or Plasma COMP METABOLIC PANEL Lab Routine Controlled type 2 diabetes mellitus without complication, without long-term current use of insulin (HCC) Expected: 08/23/2022, Expires: 10/23/2022 [facility] Work Phone: Comment on above: Expected: 08/23/2022, Expires: 3 Start: 08-23-2022 End: 10-23-2022 Hemoglobin A1c in Blood HGB A1C Lab Routine Controlled type 2 diabetes mellitus without complication, without long-term current use of insulin (HCC) Expected: 08/23/2022, Expires: 10/23/2022 [facility] Work Phone: Comment on above: Expected: 08/23/2022, Expires: 3 Start: 08-23-2022 End: 10-23-2022 Iron and Iron binding capacity panel - Serum or Plasma IRON + TIBC Lab Routine Iron deficiency Expected: 08/23/2022, Expires: 10/23/2022 [facility] Work Phone: Comment on above: Expected: 08/23/2022, Expires: 3 Start: 08-23-2022 End: 10-23-2022 Thyrotropin [Units/volume] in Serum or Plasma TSH BLD Lab Routine Hypothyroidism, acquired Expected: 08/23/2022, Expires: 10/23/2022 [facility] Work Phone: Comment on above: Expected: 08/23/2022, Expires: Start: 08-14-2022 Hemoglobin A1c/Hemoglobin.total in Blood HBA1C [facility] Start: 08-11-2022 Influenza vaccination INFLUENZA (#1) [facility] Comment on above: Postponed from 10/13/2021 (Declined at t his time) Start: 06-15-2022 Hepatitis C antibody, confirmatory test DILATED RETINAL EXAM [facility] Start: 05-30-2022 ANNUAL PCP TEAM CHRONIC DISEASE VISIT ANNUAL PCP TEAM CHRONIC DISEASE VISIT [facility] Start: 05-30-2022 BP CONTROLLED (<130/80) BP CONTROLLED (<130/80) [facility] Start: 2022 Hepatitis B surface antibody level LDL CHOLESTEROL [facility] Start: 05-22-2022 RSV Vaccine (1 - 1-dose 75+ series) RSV Vaccine (1 - 1-dose 75+ series) [facility] Start: 05-21-2022 End: 07-21-2022 25-hydroxyvitamin D3 [Mass/volume] in Serum or Plasma VITAMIN D 25 HYDROXY Lab Routine Vitamin D deficiency Expected: 05/21/2022, Expires: 07/21/2022 [facility] Work Phone: Comment on above: Expected: 05/21/2022, Expires: 3 Start: 05-21-2022 End: 07-21-2022 CBC panel - Blood by Automated count CBC Lab Routine Controlled type 2 diabetes mellitus without complication, without long-term current use of insulin (HCC) Expected: 05/21/2022, Expires: 07/21/2022 [facility] Work Phone: Comment on above: Expected: 05/21/2022, Expires: 3 Start: 05-21-2022 End: 07-21-2022 Cobalamin (Vitamin B12) [Mass/volume] in Serum or Plasma VITAMIN B12 BLOOD Lab Routine Vitamin B12 deficiency Other vitamin B12 deficiency anemia Expected: 05/21/2022, Expires: 07/21/2022 [facility] Work Phone: Comment on above: Expected: 05/21/2022, Expires: 3 Start: 05-21-2022 End: 07-21-2022 Comprehensive metabolic 2000 panel - Serum or Plasma COMP METABOLIC PANEL Lab Routine Controlled type 2 diabetes mellitus without complication, without long-term current use of insulin (HCC) Expected: 05/21/2022, Expires: 07/21/2022 [facility] Work Phone: Comment on above: Expected: 05/21/2022, Expires: 3 Start: 05-21-2022 End: 07-21-2022 Ferritin [Mass/volume] in Serum or Plasma FERRITIN BLD Lab Routine Vitamin B12 deficiency Other vitamin B12 deficiency anemia Iron deficiency Malabsorption syndrome Expected: 05/21/2022, Expires: 07/21/2022 [facility] Work Phone: Comment on above: Expected: 05/21/2022, Expires: 3 Start: 05-21-2022 End: 07-21-2022 Hemoglobin A1c in Blood HGB A1C Lab Routine Controlled type 2 diabetes mellitus without complication, without long-term current use of insulin (HCC) Expected: 05/21/2022, Expires: 07/21/2022 [facility] Work Phone: Comment on above: Expected: 05/21/2022, Expires: 3 Start: 05-21-2022 End: 07-21-2022 Iron and Iron binding capacity panel - Serum or Plasma IRON + TIBC Lab Routine Vitamin B12 deficiency Other vitamin B12 deficiency anemia Iron deficiency Malabsorption syndrome Expected: 05/21/2022, Expires: 07/21/2022 [facility] Work Phone: Comment on above: Expected: 05/21/2022, Expires: 3 Start: 05-21-2022 End: 07-21-2022 Lipid 1996 panel - Serum or Plasma LIPID PANEL BASIC Lab Routine Hypertriglyceridemia Expected: 05/21/2022, Expires: 07/21/2022 [facility] Work Phone: Comment on above: Expected: 05/21/2022, Expires: 3 Start: 05-21-2022 End: 07-21-2022 Thyrotropin [Units/volume] in Serum or Plasma TSH BLD Lab Routine Hypothyroidism, acquired Expected: 05/21/2022, Expires: 07/21/2022 [facility] Work Phone: Comment on above: Expected: 05/21/2022, Expires: 3 Start: 05-21-2022 End: 07-21-2022 Thyroxine (T4) free [Mass/volume] in Serum or Plasma T4 FREE/FREE THYROX Lab Routine Hypothyroidism, acquired Expected: 05/21/2022, Expires: 07/21/2022 [facility] Work Phone: Comment on above: Expected: 05/21/2022, Expires: 3 Start: 05-20-2022 Mammography MAMMOGRAM [facility] Start: 05-08-2022 Hemoglobin A1c/Hemoglobin.total in Blood HBA1C [facility] Start: 02-22-2022 3 comp foot exam completed DIABETIC FOOT EXAM [facility] Start: 02-22-2022 ANNUAL PCP TEAM CHRONIC DISEASE VISIT ANNUAL PCP TEAM CHRONIC DISEASE VISIT [facility] Start: 02-22-2022 BP CONTROLLED (<130/80) BP CONTROLLED (<130/80) [facility] Start: 02-16-2022 Hemoglobin A1c/Hemoglobin.total in Blood HBA1C [facility] Start: 02-15-2022 End: 04-17-2022 CBC panel - Blood by Automated count CBC Lab Routine Iron deficiency Expected: 02/15/2022, Expires: 04/17/2022 [facility] Work Phone: Comment on above: Expected: 02/15/2022, Expires: 3 Start: 02-15-2022 End: 04-17-2022 Cobalamin (Vitamin B12) [Mass/volume] in Serum or Plasma VITAMIN B12 BLOOD Lab Routine Vitamin B12 deficiency Expected: 02/15/2022, Expires: 04/17/2022 [facility] Work Phone: Comment on above: Expected: 02/15/2022, Expires: Start: 02-15-2022 End: 04-17-2022 Comprehensive metabolic 2000 panel - Serum or Plasma COMP METABOLIC PANEL Lab Routine Hypothyroidism, acquired Other vitamin B12 deficiency anemia Iron deficiency Expected: 02/15/2022, Expires: 04/17/2022 [facility] Work Phone: Comment on above: Expected: 02/15/2022, Expires: 3 Start: 02-15-2022 End: 04-17-2022 Hemoglobin A1c in Blood HGB A1C Lab Routine Uncontrolled type 2 diabetes mellitus with hyperglycemia (HCC) Expected: 02/15/2022, Expires: 04/17/2022 [facility] Work Phone: Comment on above: Expected: 02/15/2022, Expires: 3 Start: 02-15-2022 Hepatitis B surface antibody level LDL CHOLESTEROL [facility] Start: 02-15-2022 End: 04-17-2022 Iron and Iron binding capacity panel - Serum or Plasma IRON + TIBC Lab Routine Iron deficiency Expected: 02/15/2022, Expires: 04/17/2022 [facility] Work Phone: Comment on above: Expected: 02/15/2022, Expires: 3 Start: 02-15-2022 End: 04-17-2022 Thyrotropin [Units/volume] in Serum or Plasma TSH BLD Lab Routine Hypothyroidism, acquired Expected: 02/15/2022, Expires: 04/17/2022 [facility] Work Phone: Comment on above: Expected: 02/15/2022, Expires: 3 Start: 02-15-2022 End: 04-17-2022 Thyroxine (T4) free [Mass/volume] in Serum or Plasma T4 FREE/FREE THYROX Lab Routine Hypothyroidism, acquired Expected: 02/15/2022, Expires: 04/17/2022 [facility] Work Phone: Comment on above: Expected: 02/15/2022, Expires: 3 Start: 11-22-2021 Hemoglobin A1c/Hemoglobin.total in Blood HBA1C [facility] Start: 10-13-2021 Influenza vaccination [facility] Start: 08-29-2021 End: 10-29-2021 Comprehensive metabolic 2000 panel - Serum or Plasma COMP METABOLIC PANEL Lab Routine Vitamin B12 deficiency Malabsorption syndrome Other iron deficiency anemia Expected: 08/29/2021, Expires: 10/29/2021 [facility] Work Phone: Comment on above: Expected: 08/29/2021, Expires: 2 Start: 08-29-2021 End: 10-29-2021 Hemoglobin A1c/Hemoglobin.total in Blood HGB A1C Lab Routine Controlled type 2 diabetes mellitus without complication, without long-term current use of insulin (HCC) Expected: 08/29/2021, Expires: 10/29/2021 [facility] Work Phone: Comment on above: Expected: 08/29/2021, Expires: 2 Start: 08-29-2021 End: 10-29-2021 IRON + TIBC IRON + TIBC Lab Routine Other iron deficiency anemia Expected: 08/29/2021, Expires: 10/29/2021 [facility] Work Phone: Comment on above: Expected: 08/29/2021, Expires: 2 Start: 08-29-2021 End: 10-29-2021 VITAMIN B12 BLOOD VITAMIN B12 BLOOD Lab Routine Vitamin B12 deficiency Malabsorption syndrome Other vitamin B12 deficiency anemia Fatigue, unspecified type Expected: 08/29/2021, Expires: 10/29/2021 [facility] Work Phone: Comment on above: Expected: 08/29/2021, Expires: 2 Start: 08-25-2021 Adult depression screening assessment DEPRESSION SCREENING [facility] Start: 08-15-2021 Hemoglobin A1c/Hemoglobin.total in Blood HBA1C [facility] Start: 07-01-2021 COVID-19 VACCINE (3 - Booster for Jonathan series) COVID-19 VACCINE (3 - Booster for Jonathan series) [facility] Start: 06-09-2021 Hepatitis C antibody, confirmatory test DILATED RETINAL EXAM [facility] Start: 05-14-2021 Mammography MAMMOGRAM [facility] Start: 04-28-2021 COVID-19 VACCINE (3 - Booster for Jonathan series) COVID-19 VACCINE (3 - Booster for Jonathan series) [facility] Start: 02-12-2021 ADVANCE DIRECTIVE DISCUSSION ADVANCE DIRECTIVE DISCUSSION [facility] Start: 10-20-2020 COVID-19 VACCINE (2 - Booster for Jonathan series) COVID-19 VACCINE (2 - Booster for Jonathan series) [facility] Start: 05-16-2020 Urine microalbumin profile [facility] Start: 04-16-2019 Hepatitis B screening URINE ALBUMIN:CREATININE RATIO [facility] Start: 12-25-2018 FECAL OCCULT BLOOD FECAL OCCULT BLOOD [facility] Start: 12-25-2018 Screening for malignant neoplasm of colon Fecal Occult Blood [facility] Start: 05-17-2015 Pneumococcal Vaccine: 50+ (2 of 2 - PCV) Pneumococcal Vaccine: 50+ (2 of 2 - PCV) [facility] Start: 05-17-2015 Pneumococcal Vaccine: 65+ (2 - PCV) Pneumococcal Vaccine: 65+ (2 - PCV) [facility] Start: 05-17-2015 Pneumococcal Vaccine: 65+ (2 of 2 - PCV) Pneumococcal Vaccine: 65+ (2 of 2 - PCV) [facility] Start: 05-17-2015 PNEUMOCOCCAL: 65+ (2 - PCV) PNEUMOCOCCAL: 65+ (2 - PCV) [facility] Start: 2007 Hepatitis B Vaccine (1 of 3 - Risk 3-dose series) Hepatitis B Vaccine (1 of 3 - Risk 3-dose series) [facility] Start: 2007 RSV Vaccine (1 - 1-dose 60+ series) RSV Vaccine (1 - 1-dose 60+ series) [facility] Start: 05-22-1997 SHINGRIX VACCINE (1 of 2) SHINGRIX VACCINE (1 of 2) [facility] Start: 05-22-1992 COLOGUARD (FIT-DNA) COLOGUARD (FIT-DNA) [facility] Start: 05-22-[address] COLONOGRAPHY [facility] Start: 05-22-1992 Screening for malignant neoplasm of colon [facility] Start: 05-22-1992 SIGMOIDOSCOPY SIGMOIDOSCOPY [facility] Anion gap measurement [facility] BUN/Creatinine ratio [facility] C reactive protein [Mass/volume] in Serum or Plasma [facility] C reactive protein [Mass/volume] in Serum or Plasma [facility] Calcium [Mass/volume ] in Serum or Plasma [facility] Carbon dioxide, tota l [Moles/volume] in Serum or Plasma [facility] Carcinoembryonic Ag [Mass/volume] in Serum or Plasma [facility] Carcinoembryonic Ag [Mass/volume] in Serum or Plasma [facility] Carcinoembryonic Ag [Mass/volume] in Serum or Plasma [facility] CBC W Auto Different ial panel - Blood [facility] CBC W Auto Different ial panel - Blood [facility] CBC W Auto Different ial panel - Blood [facility] CBC W Auto Different ial panel - Blood [facility] Chloride [Moles/volu me] in Serum or Plasma [facility] Cobalamin (Vitamin B 12) [Mass/volume] in Serum or Plasma [facility] Comprehensive metabo lic 1999 panel - Serum or Plasma [facility] Comprehensive metabo lic 1999 panel - Serum or Plasma [facility] Creatinine [Moles/volume] in Serum or Plasma [facility] End: 06-22-2025 DBT Breast - bilateral screening CAROLINE SCREENING [facility] Radiology Routine Encounter for screening mammogram for malignant neoplasm of breast 1 Occurrences starting 2024 until 06/22/2025 [facility] Work Phone: Comment on above: 1 Occurrences starting 2024 until 06/22/2025 Erythrocyte mean corpuscular volume determination [facility] Erythrocyte sedimentation rate [facility] Erythrocyte sedimentation rate [facility] Ferritin [Mass/volum e] in Serum or Plasma [facility] Ferritin [Mass/volum e] in Serum or Plasma [facility] Glucose [Mass/volume ] in Serum or Plasma [facility] Hematocrit [Volume Fraction] of Blood [facility] Hemoglobin [Mass/vol ume] in Blood [facility] Iron and Iron bindin g capacity panel - Serum or Plasma [facility] Iron and Iron bindin g capacity panel - Serum or Plasma [facility] Lactate dehydrogenas e measurement [facility] Lactate dehydrogenas e measurement [facility] Lactate dehydrogenas e measurement [facility] Leukocytes [#/volume ] in Blood [facility] Magnesium [Mass/volu me] in Serum or Plasma [facility] End: 03-22-2023 CAROLINE SCREENING CAROLINE SCREENING Radiology Routine Encounter for screening mammogram for malignant neoplasm of breast 1 Occurrences starting 02/20/2022 until 03/22/2023 [facility] Work Phone: Comment on above: 1 Occurrences starting 02/20/2022 until 03/22/2023 End: 06-17-2022 CAROLINE SCREENING W FLOR CAROLINE SCREENING [facility] Radiology Routine Encounter for screening mammogram for malignant neoplasm of breast 1 Occurrences starting 05/18/2021 until 06/17/2022 [facility] Work Phone: Comment on above: 1 Occurrences starting 05/18/2021 until 06/17/2022 Mean corpuscular hemoglobin concentration determination [facility] Mean corpuscular hemoglobin determination [facility] Measurement of renal function [facility] Neutrophil count [facility] Neutrophil percent differential count [facility] Patient referral [facility] Work Phone: Platelets [#/volume] in Blood [facility] Potassium [Moles/vol ume] in Serum or Plasma [facility] Procedure [facility] Red blood cell count [facility] Red cell distributio n width determination [facility] Removal impacted cer umen irrigation/lvg unilat AMBULATORY EAR LAVAGE/IRRIGATION Procedures Routine Bilateral impacted cerumen Ordered: 07/11/2023 [facility] Work Phone: Comment on above: Ordered: 07/11/2023 Reticulocyte count [facility] Serum inorganic phosphate measurement [facility] Sodium [Moles/volume ] in Serum or Plasma [facility] Urea nitrogen [Mass/volume] in Serum or Plasma [facility] End: 2025 US Lower extremity veins - bilateral US LEG VEIN DVT [facility] Left leg swelling Right leg swelling 1 Occurrences starting 2024 until 2025 [facility] Comment on above: 1 Occurrences starting 2024 until 2025 [facility] Immunizations Immunization Date Immunization Notes Care Provider Fa shashi 08-25-2020 COVID-19 vaccine ([employer]) Jeff Simeon DO Work Phone: [facility] 01-21-2018 influenza virus vacc ine, unspecified formulation Mi Nurse Work Phone: [facility] 05-16-2014 pneumococcal polysaccharide vaccine, 23 valent Jeff Simeon DO Work Phone: [facility] 05-16-2010 tetanus toxoid, redu mervat diphtheria toxoid, and acellular pertussis vaccine, adsorbed Jeff Simeon DO Work Phone: [facility] Payers Date Payer Category Payer Medicare (Managed Care) [employer] H[employer] [id number] 2024 Unknown [employer] BLUE [employer] S AND BLUE SHIELD ANTHEM MEDICARE ADVANTAGE HMO [id number] 2024-Present [phone] [address] [place] [address] O [id number] 2023 Medicare [id number] 2023 Self-pay [id number] 2021 Medicare AETNA MEDICARE A ETNA MEDICARE O [id number] 2021-Present [phone] [address] [place] [address] [facility] [id number] 2021 Private Health Insurance [facility] [id number] 2013 Medicare [id number] Medicare [id number] Unknown [id number] Unknown [id number] Unknown [id number] Unknown [id number] Unknown [id number] 462 Unknown [id number] Unknown [id number] Unknown [id number] 462 Unknown [id number] Unknown [id number] 462 Unknown [id number] Unknown [id number] Unknown [id number] 462 Social History Date Type Detail Facility Start: 05-17-2015 End: 10-16-2023 Tobacco smoking status NHIS Never smoked tobacco [facility] Work Phone: Start: 05-17-2015 End: 02-20-2022 Tobacco use and exposure Smokeless tobacco non-user [facility] Work Phone: Start: 02-22-2021 End: 02-14-2024 Alcohol intake Current non-drinker of alcohol (finding) [facility] Start: 1945 Sex Assigned At Not on file [facility] Start: 12-21-2020 End: 03-21-2023 Tobacco smoking status NHIS Unknown if ever smoked [facility] Start: 1945 Sex Assigned At Female W [facility] Start: 07-26-2020 End: 11-15-2021 Exposure to SARS-CoV-2 (event) Not sure [facility] Work Phone: Start: 07-11-2022 End: 09-05-2022 History of Social function [facility] Work Phone: Start: 07-11-2022 End: 09-05-2022 Tobacco use panel [facility] Work Phone: Adult Depression Screening Assessment 0 [facility] Work Phone: Start: 05-13-2024 Sex Female (finding) Natalia garcia [facility] Medical Equipment Procedure Code Equipment Code Equipment Original Text Equipment Identifier Dates [id number], [id number], [id number], [id number], [id number], [id number], [id number], [id number], [id number], [id number], [id number], [id number], [id number], [id number], [id number], [id number] Start: 04-21-2019 End: 09-15-2024 Comment on above: [...] Insulin: No Surgical staple loading unit, cutting ()[id number] FDA Start: 03-06-2023 Open-surgery manual linear cutting stapler, single-use ()[id number] FDA Start: 03-06-2023 Ligation clip, synthetic polymer, non-bioabsorbable ()[id number] FDA Start: 03-06-2023 Goals Date Patient Goal Desired Activity /State Functional Status Date Assessment Result Facility 03-11-2023 Functional status [facility] Work Phone: 04-06-2022 Are you deaf, or do you have serious difficulty hearing No 04/06/2022 10:53 AM Wiley Pires RN No [facility] 04-06-2022 Are you blind, or do you have serious difficulty seeing, even when wearing glasses No 04/06/2022 10:53 AM Wiley Pires RN No [facility] 04-06-2022 Do you have serious difficulty walking or climbing stairs No 04/06/2022 10:53 AM Wiley Pires RN No [facility] 04-06-2022 Do you have difficul ty dressing or bathing No 04/06/2022 10:53 AM Wiley Pires RN No [facility] 04-06-2022 Because of a physica l, mental, or emotional condition, do you have difficulty doing errands alone such as visiting a physician's office or shopping No 04/06/2022 10:53 AM Wiley Pires RN No [facility] Mental Status Date Assessment Result Facility 03-27-2024 Cognitive function Awake;Alert;A ppropriate; Follows Commands [facility] Work Phone: 01-22-2024 Cognitive function Awake;Alert;Appropriat e [facility] Work Phone: 12-13-2023 Cognitive function Arousable To Voice/Nam e [facility] Work Phone: 03-11-2023 Cognitive function Voice/Name [facility] Work Phone: 04-06-2022 Because of a physica l, mental, or emotional condition, do you have serious difficulty concentrating, remembering, or making decisions No 04/06/2022 10:53 AM Wiley Pires RN No [facility] Clinical Notes 02-26-2018 to 12-23-2024 Note Date & Type Note Facility 12-23-2024 Note HNO ID: [id number] Author: ?, ?, ? Service: ? Author Type: Licensed Nurse Type: Progress Notes Filed: 12/23/2024 08:05 Note Text: Patient presents for B-12 injection. Denies any problems at this time. Patient instructed on any SE of medication, verbalized understanding and agreed to proceed with treatment. Tolerated injection well. Lani Edmond LPN [facility] 12-21-2024 Note HNO ID: [id number] Author: FARRUKH DYE, ? Service: ? Author [...] of her left foot performed by a conditioner tumbler. She prefers not to wear shoes indoors [...] provided courtesy nail trimming today. Recording using [employer] software for draft documentation of the visit was discussed with the patient/authorized warehouse representative; all questions welcomed and answered. Patient/authorized warehouse representative agreed to proceed Farrukh Dye DPM [facility] 12-19-2024 Note HNO ID: [id number] Author: NGUYEN SMITH, ROBERT Service: ? Author [...] seen Podiatry for this before. SONIDO 03/29/24 [facility] 11-21-2024 Note HNO ID: [id number] Author: JEFF SIMEON, Service: ? Author Type: [...] care of with her diabetes, hasn't seen Butt Trimmer recently. Vitamin b12 deficiency, last level in the 400s. Hasn't had labs rechecked. But does feel less fatigue than previously Will have follow up next with Dr. Singh for Oncologist on 10/23 and labs prior Next follow up in the next few months with Software Recruiter Dr. Crystal as well. She is eating [...] found. 5 yr recall. [facility] COLONOSCOPY FLX DX W/COLLJ SPEC WHEN PFRMD 02/26/2018 Colonoscopy ESOPHAGOGASTRODUODENOSCOPY TRANSORAL DIAGNOSTIC 08/31/2003 Unremarkable, negative biopsies. [facility] ESOPHAGOGASTRODUODENOSCOPY TRANSORAL DIAGNOSTIC 02/26/2018 EGD LAPAROSCOPIC CHOLECYSTECTOMY 04/05/2022 REMV CATARACT EXTRACAP,INSERT LENS Bilateral TONSILLECTOMY HX SOCIAL HISTORY[1] FAMILY HISTORY Adopted: Yes Allergies: ALLERGIES Allergen Reactions Benadryl [Diphenhyd* Swelling Penicillins Shortness of Breath Qjotssh-Dwj-Utv Red* Contraindication-Medical Surgical History of liver failure [...] tablet by mouth (more content not included)... [facility] 11-04-2024 Progress note [facility] 10-23-2024 Evaluation note Diagnosis Onset Date Resolution Colon cancer, ascending chronic October 23, 2024 1:37pm Elevated CEA chronic October 232024 1:37pm Anemia resolved October 1:37pm Colon cancer, ascending chronic November 04, 2024 10:48am NAFLD (nonalcoholic fatty liver disease) chronic October 142024 10:48am Ulcerative colitis chronic 2024 10:48am [facility] Work Phone: 1(564) 741-763609-11-2025 Progress [facility] [address] [place] [address] OFFICE VISIT Date of Service: 10/23/24 1405 MR#: [id number] Acct: [id number] Name: NGUYEN QUEEN Rep #: [id number] : 1945 From: Maco Singh MD Age/Sex: 79/F Location: [facility] Status: Signed HPI Subjective Date of Service 10/23/24 Chief Complaint F/u for anemia. History of Present Illness 79-year-old woman presented with right lower quadrant abdominal pain to [facility]. CTof the abdomen and pelvis on 03/05/2023 [...] and comes for follow up. Feels well. [facility] Medical History Colon cancer Bilateral lower extremity [...] Products Adverse Reaction (Verified 10/23/24 14:09) Other [place] And Derivatives Adverse Reaction (Verified 10/23/24 14:09) [...] applicable) CC: Dr. Jeff Simeon, DO ~ [facility]09-11-2025 Progress note Author Maco Singh [facility] Note Date/Time October 23, 2024 2:35pm [facility] [address] [address] OFFICE VISIT Date of Service: 10/23/24 1405 MR#: [id number] Acct: [id number] Name: BRETNGUYEN Rep #: [id number] : 1945 From: Maco Singh MD Age/Sex: 79/F Location: [facility] Status: Signed HPI Subjective Date of Service 10/23/24 Chief Complaint F/u for anemia. History of Present Illness 79-year-old woman presented with right lower quadrant abdominal pain to [facility]. CTof the abdomen and pelvis on 03/05/2023 [...] and comes for follow up. Feels well. [facility] Medical History Colon cancer Bilateral lower extremity [...] Products Adverse Reaction (Verified 10/23/24 14:09) Other [place] And Derivatives Adverse Reaction (Verified 10/23/24 14:09) [...] fallen in the past year?: Yes 10/23/24 4376 <Electronically signed by Maco Martinez> Date _ Maco Hernandez Signature: Date (if applicable) CC: Dr. Jeff Simeon, DO ~ [facility] Work Phone: [phone]) 999-341808-04-2025 Telephone encounter Note* Telephone Encounter - Hank [...] Ruvalcaba RN September 15, 2024 9:50 AM [facility]08-04-2025 Miscellaneous Notes* Telephone Encounter - Hank Ruvalcaba [...] 15, 2024 9:50 AM documented in this encounterNation[facility]05-30-2025 Telephone encounter Note * Telephone Encounter - [...] Controlled E11.9 Insulin: No Astrid Larios RN [facility]05-30-2025 Miscellaneous Notes* Telephone Encounter - Astrid Larios [...] No Astrid Larios RN documented in this encounterNationwide [facility]04-17-2025 Telephone encounter Note * Telephone Encounter - [...] her to schedule B12 injections with Lani. [facility]04-17-2025 Miscellaneous Notes* Telephone Encounter - Hank Ruvalcaba [...] weeks Jeff Simeon DO documented in this encounterNationwide [facility]04-17-2025 Telephone encounter Note * Telephone Encounter - Clari Escudero RN - 05/29/2024 12:21 PM EDT TC patient, left message for patient to call back and speak with a triage nurse regarding results and provider instructions. Clari Escudero RN [facility]04-16-2025 Telephone encounter Note* Telephone Encounter - Jeff [...] again every 3-4 weeks Jeff Simeon DO [facility]04-11-2025 Telephone encounter Note* Telephone Encounter - Barbara Amin MA - 2024 3:51 PM EDT Pt notified. Barbara Amin MA [facility]04-11-2025 Miscellaneous Notes* Telephone Encounter - Barbara Amin MA - 2024 3:51 PM EDT Pt notified. Barbara Amin MA * Telephone Encounter - Karson Woodward APRN.CNP - 2024 2:46 PM EDT Please let her know that the ultrasounds of her legs did not show any clots. Karson Woodward APRN.CNP documented in this encounterNationwide [facility] Hospital04-11-2025 Telephone encounter Note * Telephone Encounter - Karson Woodward APRN.CNP - 2024 2:46 PM EDT Please let her know that the ultrasounds of her legs did not show any clots. Karson Woodward APRN.CNP [facility]04-11-2025 NoteHNO ID: [id number] Author: RUTH ANN MAURO RDMS Service: ? Author Type: Tin Whiz Machine Operator Type: Progress Notes Filed: 05/26/2024 07:26 Note [...] PATIENT PRESENTS WITH AN IMPLANTABLE OR ATTACHED FARM APPRAISER: No RADIOLOGY DEPARTMENT: Ultrasound PERIPHERAL IV DATA: Not applicable SIGNED BY: Ruth Ann Mauro RDMS RVT May 26, 2024 7:25 [facility]04-11-2025 Instructions* Patient Instructions* Jeff SimeonDO - 2024 10:16 AM EDT Add some ground flax and ground ronine seed into your diet as able. documented in this encounterNationwide [facility]'S Hospital04-11-2025 NoteHNO ID: [id number] Author: JEFF SIMEON DO Service: ? Author [...] up in the next few months with Software Recruiter Dr. Crystal as well. She is eating [...] polyps found. 5 yr recall. [facility] COLONOSCOPY FLX DX W/COLLJ SPEC WHEN PFRMD 02/26/2018 Colonoscopy ESOPHAGOGASTRODUODENOSCOPY TRANSORAL DIAGNOSTIC 08/31/2003 Unremarkable, negative biopsies. [facility] ESOPHAGOGASTRODUODENOSCOPY TRANSORAL DIAGNOSTIC 02/26/2018 EGD LAPAROSCOPIC CHOLECYSTECTOMY 04/05/2022 REMV CATARACT EXTRACAP,INSERT LENS Bilateral TONSILLECTOMY HX Social History Tobacco Use Smoking status: Never Smokeless tobacco: Never Vaping Use Vaping status: Never Used Substance Use Topics Alcohol use: No Drug use: No FAMILY HISTORY Adopted: Yes Allergies: ALLERGIES Allergen Reactions Benadryl [Diphenhyd* Swelling Penicillins Shortness of Breath Lkknfqc-Xgy-Xgu Red* Contraindication-Medical Surgical History of liver failure [...] INSULIN: NO Delecia Beck (more content not included)...[facility]04-11-2025 History of Present illness Narrative* Jeff Simeon, [...] up in the next few months with Software Recruiter Dr. Crystal as well. She is eating [...] Diagnosis Date Advance care planning 08/24/2021 [facility] Diabetes mellitus, type 2 (HCC) Environmental allergies [...] found. 5 yr recall. [facility] COLONOSCOPY FLX DX W/COLLJ SPEC WHEN PFRMD 02/26/2018 Colonoscopy ESOPHAGOGASTRODUODENOSCOPY TRANSORAL DIAGNOSTIC 08/31/2003 Unremarkable, negative biopsies. [facility] ESOPHAGOGASTRODUODENOSCOPY TRANSORAL DIAGNOSTIC 02/26/2018 EGD LAPAROSCOPIC CHOLECYSTECTOMY 04/05/2022 REMV CATARACT EXTRACAP,INSERT LENS Bilateral TONSILLECTOMY HX Social History Tobacco Use Smoking status: Never Smokeless tobacco: Never Vaping Use Vaping status: Never Used Substance Use Topics Alcohol use: No Drug use: No FAMILY HISTORY Adopted: Yes Allergies: ALLERGIES Allergen Reactions Benadryl [Diphenhyd* Swelling Penicillins Shortness of Breath Kxichbm-Ibl-Xbj Red* Contraindication-Medical Surgical History of liver failure [...] with supplements or by diet (goal of 0148-9596 mg/day - CAROLINE SCREENING W FLOR 4. [...] above F/u with DR. Singh oncologist and workers compensation examiner 11. Colon neoplasm - ICD9: 239.0, ICD10: D49.0 See above, s/p resection and improved. Jeff Simeon DO To ER if develops chest pain, shortness of breath, or severe worsening of symptoms. Discussed risks, benefits, alternatives, and potential side effects of medications. Patient expressed understanding and agreed with the plan. Jeff Simeon DO [address] [place] [address] documented in this encounterNationwide [facility]01-02-2025 Telephone encounter Note * Telephone Encounter - Karson Woodward APRN.SHUTDOWN COORDINATOR - 02/14/2024 2:42 PM EST Patient states that she usually gets her B12 shots and is due for one with our nurse Lani. For whatever reason she states she hasn't been able to schedule this appt. I'm not familiar with this, are we able to help her out? Thanks Karson Woodward APRN.SHUTDOWN COORDINATOR [facility]01-02-2025 Miscellaneous Notes* Telephone Encounter - Karson Woodward APRN.CNP - 02/14/2024 2:42 PM EST Patient states that she usually gets her B12 shots and is due for one with our nurse Lani. For whatever reason she states she hasn't been able to schedule this appt. I'm not familiar with this, are we able to help her out? Thanks Karson Woodward APRN.SHUTDOWN COORDINATOR documented in this encounterNationwide Children'S Hospital01-02-2025 Telephone encounter Note * Telephone Encounter - Karson Woodward APRN.CNP - 02/14/2024 1:46 PM EST Noted, thank you. Karson Woodward APRN.BLAYNE [facility]01-02-2025 Miscellaneous Notes* Telephone Encounter - Karson Woodward APRN.CNP - 02/14/2024 1:46 PM EST Noted, thank you. Karson Woodward APRN.SHUTDOWN COORDINATOR * Telephone Encounter - Nell Perez MA [...] fine! Karson Woodward APRN.CNP documented in this encounterNationwide Children'S Hospital01-02-2025 Telephone encounter Note * Telephone Encounter - Nell Perez MA - 02/14/2024 12:27 PM EST Spoke with DR. Varghese nurse who reports pt stopped taking the eliqus at 30 days, was supposed to take for 45 days, but she had trouble with cost/ felt like it caused swelling in her legs. Dr. Singh said patient should be fine. Nell Perez MA [facility]01-02-2025 Telephone encounter Note* Telephone Encounter - Karson Woodward APRN.CNP - 02/14/2024 11:50 AM EST Patient states that she has right calf DVT and Dr. Singh gave her Eliquis x1 month. Typically we will have them take it for at least 3-6 months, I just wanted to make sure that he did only want it for1 month. If so that's fine! Karson Woodward APRN.CNP [facility]01-02-2025 NoteHNO ID: [id number] Author: KARSON WOODWARD APRN.CNP Service: ? Author [...] D-knows it is low but states at [facility] tried to give this to her and she can't tolerate it-overall just makes her very sick. Past medical history, appointments, medications, allergies reviewed. Previous Medical History PAST MEDICAL HISTORY Diagnosis Date Advance care planning 08/24/2021 [facility] Diabetes mellitus, type 2 (HCC) Environmental allergies [...] found. 5 yr recall. [facility]. [facility] COLONOSCOPY FLX DX W/COLLJ SPEC WHEN PFRMD 02/26/2018 Colonoscopy ESOPHAGOGASTRODUODENOSCOPY TRANSORAL DIAGNOSTIC 08/31/2003 Unremarkable, negative biopsies. [facility] ESOPHAGOGASTRODUODENOSCOPY TRANSORAL DIAGNOSTIC 02/26/2018 EGD LAPAROSCOPIC CHOLECYSTECTOMY 04/05/2022 REMV CATARACT EXTRACAP,INSERT LENS Bilateral TONSILLECTOMY HX Family History FAMILY HISTORY Adopted: Yes Patient Allergies ALLERGIES Allergen Reactions Benadryl [Diphenhyd* Swelling Penicillins Shortness of Breath Iuxujbo-Lsr-Sjy Red* Contraindication-Medical Surgical History of liver failure [...] taking: Reported on 02/13/19 (more content not included)...[facility]01-02-2025 History of Present illness Narrative* Karson Woodward APRN.SHUTDOWN COORDINATOR - 02/14/2024 11:22 AM EST Chief Complaint [...] D-knows it is low but states at [facility] tried to give this to her and she can't tolerate it-overall just makes her very sick. Past medical history, appointments, medications, allergies reviewed. Previous Medical History PAST MEDICAL HISTORY Diagnosis Date Advance care planning 08/24/2021 [facility] Diabetes mellitus, type 2 (HCC) Environmental allergies [...] found. 5 yr recall. [facility]. [facility] COLONOSCOPY FLX DX W/COLLJ SPEC WHEN PFRMD 02/26/2018 Colonoscopy ESOPHAGOGASTRODUODENOSCOPY TRANSORAL DIAGNOSTIC 08/31/2003 Unremarkable, negative biopsies. [facility] ESOPHAGOGASTRODUODENOSCOPY TRANSORAL DIAGNOSTIC 02/26/2018 EGD LAPAROSCOPIC CHOLECYSTECTOMY 04/05/2022 REMV CATARACT EXTRACAP,INSERT LENS Bilateral TONSILLECTOMY HX Family History FAMILY HISTORY Adopted: Yes Patient Allergies ALLERGIES Allergen Reactions Benadryl [Diphenhyd* Swelling Penicillins Shortness of Breath Iwvkeae-Typ-Qjk Red* Contraindication-Medical Surgical History of liver failure [...] in counseling and education. documented in this encounterNationwide Children'S Hospital12-20-2024 Miscellaneous Notes* Telephone Encounter - Nell Perez [...] upcoming appt with Crissy. documented in this encounterNationwide Children'S Hospital12-20-2024 Telephone encounter Note * Telephone Encounter - Nell Perez MA - 02/01/2024 2:13 PM EST Pt informed Nell Perez MA [facility]12-20-2024 Telephone encounter Note* Telephone Encounter - Karson Woodward APRN.CNP - 02/01/2024 2:02 PM EST Lab orders placed. Karson Woodward APRN.CNP [facility]12-20-2024 Telephone encounter Note* Telephone Encounter - FredMonse sweeney - 02/01/2024 12:40 PM EST Pt is requesting lab orders be put in so that she can have them drawn a week before her upcoming appt with Crissy. [facility]12-12-2024 Evaluation note* Diagnosis Onset Date Resolution Status [...] Ulcerative colitis chronic May 06, 2024 10:43am [facility] Work Phone: 1(185) 876-273710-08-2024 History of Present illness Narrative* Jeff Simeon, [...] colectomy for colon cancer - Dr. Crystal Software Recruiter. Has upcoming CT chest for her recent [...] found. 5 yr recall. [facility]. [facility] COLONOSCOPY FLX DX W/COLLJ SPEC WHEN PFRMD 02/26/2018 Colonoscopy ESOPHAGOGASTRODUODENOSCOPY TRANSORAL DIAGNOSTIC 08/31/2003 Unremarkable, negative biopsies. [facility] ESOPHAGOGASTRODUODENOSCOPY TRANSORAL DIAGNOSTIC 02/26/2018 EGD LAPAROSCOPIC CHOLECYSTECTOMY 04/05/2022 REMV CATARACT EXTRACAP,INSERT LENS Bilateral TONSILLECTOMY HX Social History Tobacco Use Smoking status: Never Smokeless tobacco: Never Vaping Use Vaping status: Never Used Substance Use Topics Alcohol use: No Drug use: No FAMILY HISTORY Adopted: Yes Allergies: ALLERGIES Allergen Reactions Benadryl [Diphenhyd* Swelling Penicillins Shortness of Breath Hpzwbux-Hyw-Jjt Red* Contraindication-Medical Surgical History of liver failure [...] See above. Needs to follow up with Software Recruiter as well as Oncologist. Hx of colon [...] See above. Needs to follow up with Software Recruiter as well as Oncologist. Hx of colon cancer s/pright colectomy partial. She is having muscle weakness and weight loss after her recent hospitalization and colitis diagnosis. She isn't tolerated the ciprofloxacin and metronidazole medication and oral iron option. Needs to consider PT 6. Colon neoplasm - ICD9: 239.0, ICD10: D49.0 See above. Needs to follow up with Software Recruiter as well as Oncologist. Hx of colon [...] See above. Needs to follow up with Software Recruiter as well as Oncologist. Hx of colon cancer s/pright colectomy partial. She is having muscle weakness and weight loss after her recent hospitalization and colitis diagnosis. She isn't tolerated the ciprofloxacin and metronidazole medication and oral iron option. Needs to consider PT 9. Muscle weakness - ICD9: 728.87, ICD10: M62.81 See above. Needs to follow up with Software Recruiter as well as Oncologist. Hx of colon cancer s/pright colectomy partial. She is having muscle weakness and weight loss after her recent hospitalization and colitis diagnosis. She isn't tolerated the ciprofloxacin and metronidazole medication and oral iron option. Needs to consider PT 10. Gait abnormality - ICD9: 781.2, ICD10: R26.9 See above. Needs to follow up with Software Recruiter as well as Oncologist. Hx of colon cancer s/pright colectomy partial. She is having muscle weakness and weight loss after her recent hospitalization and colitis diagnosis. She isn't tolerated the ciprofloxacin and metronidazole medication and oral iron option. Needs to consider PT Jeff Simeon DO I spent 45 minutes in the visit, with more than 50% of the total gecg-iq-pefy time of the visit in counseling / coordination of care. To ER if develops chest pain, shortness of breath, or severe worsening of symptoms. Discussed risks, benefits, alternatives, and potential side effects of medications. Patient expressed understanding and agreed with the plan. Jeff Simeon DO [address] [place] [address] documented in this encounterNationwide Children[facility] Hospital10-02-2024 Telephone encounter Note * Telephone Encounter - Nell Perez MA - 11/14/2023 2:49 PM EDT Pt informed, verbalized understanding. Pt reports she will discuss these results with Dr. Simeon at her upcoming appt on 11/19. She takes b12 shot every other Sunday. Doesn't take Vitamin D or Iron supplement. Reports she is deathly allergic to these. Nell Perez MA [facility]10-02-2024 Miscellaneous Notes* Telephone Encounter - Nell Perez [...] this? Karson Woodward APRN.CNP documented in this encounterNationwide Children'S Hospital10-02-2024 Telephone encounter Note * Telephone Encounter - [...] a supplement for this? Karson Woodward APRN.CNP [facility]09-30-2024 Telephone encounter Note* Telephone Encounter - Lani [...] Edmond LPN November 12, 2023 10:23 AM [facility]09-30-2024 Miscellaneous Notes* Telephone Encounter - Lani Edmond [...] 12, 2023 10:23 AM documented in this encounterNationwide Children'S Hospital09-30-2024 History of Present illness Narrative* Lani Edmond LPN - 11/12/2023 10:21 AM EDT Patient presents for B-12 injection. Denies any problems at this time. Patient instructed on any SEof medication, verbalized understanding and agreed to proceed with treatment. Tolerated injection well. Lani Edmond LPN documented in this encounterNationwide Children'S Hospital09-23-2024 Telephone encounter Note * Telephone Encounter - Janeth Davenport LPN - 11/05/2023 10:26 AM EDT Phoned patient aware rx sent to pharmacy. Patient said she has appt with PCP on 11/20/2023. [facility]09-23-2024 Miscellaneous Notes* Telephone Encounter - Janeth Davenport [...] daily for 10 days. Authorizing Provider: JEFF SIMOEN DO * Telephone Encounter - Lani Edmond [...] advise. Lani Edmond LPN documented in this encounterNationwide Children'S Hospital09-23-2024 Telephone encounter Note * Telephone Encounter - Jeff Simeon DO - 11/05/2023 7:54 AM EDT The following approved medication requests have been transmitted electronically. Requested Prescriptions Signed Prescriptions Disp Refills furosemide (LASIX) 40 mg tablet 10 tablet 0 Sig: Take 1 tablet by mouth once daily for 10 days. Authorizing Provider: JEFF SIMEON DO [facility]09-16-2024 Telephone encounter Note* Telephone Encounter - Lani [...] Please review and advise. Lani Edmond LPN [facility]09-16-2024 History of Present illness Narrative* Lani Edmond LPN - 10/29/2023 9:31 AM EDT Patient presents for B-12 injection. Denies any problems at this time. Patient instructed on any SEof medication, verbalized understanding and agreed to proceed with treatment. Tolerated injection well. Lani Edmond LPN documented in this encounterNationwide [facility]09-[facility] Telephone encounter Note * Telephone Encounter - Nell Perez MA - 10/25/2023 3:18 PM EDT Relayed provider message to Dr. Crystal's nurse. She will contact office with provider response Nell Perez MA [facility]09-[facility] Miscellaneous Notes* Telephone Encounter - Nell Perez [...] cancer diagnosis. Advises that Dr. Crystal, of [facility], be contacted for advise. Please contact Dr. [...] stomach. Karson Woodward APRN.CNP documented in this encounterNationwide Children'[facility] Hospital09-12-2024 Telephone encounter Note * Telephone Encounter - Astrid Larios RN - 10/25/2023 12:39 PM EDT Patricia with Dr. Singh's office calling with message for Karson Woodward CNP. States Dr. Singh feels pt's colitis is unrelated to her cancer diagnosis. Advises that Dr. Crystal, of [facility], be contacted for advise. Please contact Dr. Crystal's office regarding Karson's note below. Please call patient with any updates. Astrid Larios RN [facility]09-12-[facility]24 Telephone encounter Note* Telephone Encounter - Hank Ruvaclaba, ROBERT - 10/25/2023 11:54 AM EDT Patricia- Dr. Singh's oncology office, returned call and given provider's message below. Patricia will talk with Dr. Singh, and call back to nurse with reply. [facility] Telephone encounter Note* Telephone Encounter - Barbara Amin MA - 10/25/2023 10:24 AM EDT Message left on nurses machine with Dr. Singh's office to call office back regarding pt. Barbara Amin MA [facility]09-11-2024 Telephone encounter Note* Telephone Encounter - Karson [...] and upset her stomach. Karson Woodward APRN.CNP [facility]09-11-2024 Instructions* Patient Instructions* Karson Woodward APRN.CNP - [...] of water to drink. documented in this encounterNationwide Children'[facility] Hospital09-11-2024 History of Present illness Narrative* Karson Woodward APRN.CNP - 10/24/2023 2:03 PM EDT Transitional Care Management Progress Note The patients TCM visit was performed within the 7 days of discharge. Patient's Date of discharge: 10/18/2023 Date of initial coordinator contact after discharge: N/A Discharge diagnosis: acute colitis in the setting of colon cancer Medication review completed Yes Karson Woodward APRN.SHUTDOWN COORDINATOR Provider Documentation: In follow-up of hospitalization, Nguyen [...] 24, 2023 2:03 PM documented in this encounterNationwide Children'[facility] Hospital09-03-2024 Miscellaneous Notes* Telephone Encounter - Lani Edmond [...] 16, 2023 9:35 AM documented in this encounterNationwide Children'[facility] Hospital09-03-2024 Telephone encounter Note * Telephone Encounter - [...] Edmond LPN October 16, 2023 9:35 AM [facility] History of Present illness Narrative* Lani Edmond LPN - 10/16/2023 9:14 AM EDT Patient presents for B-12 injection. Denies any problems at this time. Patient instructed on any SEof medication, verbalized understanding and agreed to proceed with treatment. Tolerated injection well. Lani Edmond LPN documented in this encounterNationwide Children[facility] Hospital08-21-2024 Telephone encounter Note * Telephone Encounter - Anju Sánchez PA-C - 10/03/2023 3:34 PM EDT Noted Anju Sánchez PA-C [facility]08-[facility] Miscellaneous Notes* Telephone Encounter - Anju Sánchez [...] ER. Lani Edmond LPN documented in this encounterNationwide Children'[facility] Hospital08-19-2024 Telephone encounter Note * Telephone Encounter - [...] go to the ER. Lani Edmond LPN [facility]08-[facility] History of Present illness Narrative* Lani Edmond LPN - 10/01/2023 9:27 AM EDT Patient presents for B-12 injection. Denies any problems at this time. Patient instructed on any SEof medication, verbalized understanding and agreed to proceed with treatment. Tolerated injection well. Lani Edmond LPN documented in this encounterNationwide Children'[facility] Hospital08-05-2024 History of Present illness Narrative* Lani Edmond LPN - 09/17/2023 10:05 AM EDT Patient presents for B-12 injection. Denies any problems at this time. Patient instructed on any SEof medication, verbalized understanding and agreed to proceed with treatment. Tolerated injection well. Lani Edmond LPN documented in this encounterNationwide Children[facility] Hospital07-23-2024 Telephone encounter Note * Telephone Encounter - Lani Edmond LPN - 09/04/2023 9:23 AM EDT Patient scheduled for nurse visit 09/18/23 to receive B-[address] order at this time. Lani Edmond LPN [facility]07-[facility] Miscellaneous Notes* Telephone Encounter - Lani Edmond LPN - 09/04/2023 9:23 AM EDT Patient scheduled for nurse visit 09/18/23 to receive B-[address]. [address] order at this time. Lani Edmond LPN documented in this encounterNationwide Children'S Hospital07-22-2024 History of Present illness Narrative* Lani Edmond LPN - 09/03/2023 10:06 AM EDT Patient presents for B-12 injection. Denies any problems at this time. Patient instructed on any SEof medication, verbalized understanding and agreed to proceed with treatment. Tolerated injection well. Lani Edmond LPN documented in this encounterNationwide Children[facility]07-08-2024 History of Present illness Narrative* Lani Edmond LPN - 08/20/2023 9:37 AM EDT Patient presents for B-12 injection. Denies any problems at this time. Patient instructed on any SEof medication, verbalized understanding and agreed to proceed with treatment. Tolerated injection well. Lani Edmond LPN documented in this encounterNationwide Children'[facility] Hospital06-25-2024 History of Present illness Narrative* Lani Edmond LPN - 08/07/2023 10:15 AM EDT Patient presents for B-12 injection. Denies any problems at this time. Patient instructed on any SEof medication, verbalized understanding and agreed to proceed with treatment. Tolerated injection well. Lani Edmond LPN documented in this encounterNationwide Children'[facility] Hospital06-05-2024 Telephone encounter Note * Telephone Encounter - [...] Please advise. Thank you. Megan Ellis RN. [facility]06-[facility] Miscellaneous Notes* Telephone Encounter - Megan Ellis [...] you. Megan Ellis RN. documented in this encounterNationwide Children'S Hospital06-04-2024 History of Present illness Narrative* Lani Edmond LPN - 07/17/2023 9:49 AM EDT Patient presents for B-12 injection. Denies any problems at this time. Patient instructed on any SEof medication, verbalized understanding and agreed to proceed with treatment. Tolerated injection well. Lani Edmond LPN documented in this encounterNationwide Children[facility] Hospital05-29-2024 History of Present illness Narrative* Sharyn Rodriguez [...] Diagnosis Date Advance care planning 08/24/2021 [facility] Diabetes mellitus, type 2 (HCC) Environmental allergies [...] found. 5 yr recall. [facility] COLONOSCOPY FLX DX W/COLLJ SPEC WHEN PFRMD 02/26/2018 Colonoscopy ESOPHAGOGASTRODUODENOSCOPY TRANSORAL DIAGNOSTIC 08/31/2003 Unremarkable, negative biopsies. [facility] ESOPHAGOGASTRODUODENOSCOPY TRANSORAL DIAGNOSTIC 02/26/2018 EGD LAPAROSCOPIC [...] LAVAGE/IRRIGATION Sharyn Rodriguez PA-C documented in this encounterNationwide Children'S Hospital05-29-2024 Nurse Note* Kelsey Rojas MA - 07/11/2023 11:53 AM EDT Ambulatory Ear Lavage Pre-treatment: Warm water Treatment: Both ears Equipment and Irrigation solution and Volume used: Single use syringe with single use irrigation tip Water Return flow appearance: Brown Yellow Patient tolerated procedure: yes Tympanic membrane assessment: Tympanic membrane assessed by LIP pre and post procedure Kelsey Rojas MA [facility]05-29-[facility] Nurse Note* Kelsey Rojas MA - 07/11/2023 11:53 AM EDT Ambulatory Ear Lavage Pre-treatment: Warm water Treatment: Both ears Equipment and Irrigation solution and Volume used: Single use syringe with single use irrigation tip Water Return flow appearance: Brown Yellow Patient tolerated procedure: yes Tympanic membrane assessment: Tympanic membrane assessed by LIP pre and post procedure Kelsey Rojas MA documented in this encounterNationwide Children'S Hospital05-22-2024 History of Present illness Narrative* Jeff Simeon [...] Diagnosis Date Advance care planning 08/24/2021 [facility] Diabetes mellitus, type 2 (HCC) Environmental allergies [...] found. 5 yr recall. [facility] COLONOSCOPY FLX DX W/COLLJ SPEC WHEN PFRMD 02/26/2018 Colonoscopy ESOPHAGOGASTRODUODENOSCOPY TRANSORAL DIAGNOSTIC 08/31/2003 Unremarkable, negative biopsies. [facility] ESOPHAGOGASTRODUODENOSCOPY TRANSORAL DIAGNOSTIC 02/26/2018 EGD LAPAROSCOPIC CHOLECYSTECTOMY 04/05/2022 REMV CATARACT EXTRACAP,INSERT LENS Bilateral TONSILLECTOMY HX Social History Tobacco Use Smoking status: Never Smokeless tobacco: Never Vaping Use Vaping Use: Never used Substance Use Topics Alcohol use: No Drug use: No FAMILY HISTORY Adopted: Yes Allergies: ALLERGIES Allergen Reactions Benadryl [Diphenhyd* Swelling Penicillins Shortness of Breath Wwnkpkj-Bpf-Vyp Red* Contraindication-Medical Surgical History of liver failure [...] agreed with the plan. Jeff Simeon DO [address] [place] [address] documented in this encounterNationwide Children'S Hospital05-13-2024 Instructions* Patient Instructions* Jeff Simeon DO - 06/25/2023 4:08 PM EDT Two good brand probiotic drinks with 10-20 grams of protein and probiotic in it Peanut butter powder (PB2)- can add water to it to make peanut butter documented in this encounterNationwide Children'S Hospital05-10-2024 Telephone encounter Note * Telephone Encounter - Pebbles Molina LPN - 06/22/2023 11:14 AM EDT Pt. informed. [facility]05-10-[facility] Miscellaneous Notes* Telephone Encounter - Pebbles Reno LPN - 06/22/2023 11:14 AM EDT Pt. informed. * Telephone Encounter - Karson Woodward APRN.CNP - 06/22/2023 7:16 AM EDT Please let her know that there are no acute concerns with her lab work, she can discuss this in more detail at her upcoming appt with Dr. Simeon. Karson Woodward APRN.CNP documented in this encounterNationwide Children'S Hospital05-10-2024 Telephone encounter Note * Telephone Encounter - Karson Woodward APRN.CNP - 06/22/2023 7:16 AM EDT Please let her know that there are no acute concerns with her lab work, she can discuss this in more detail at her upcoming appt with Dr. Simeon. Karson Woodward APRN.SHUTDOWN COORDINATOR [facility]05-06-2024 Telephone encounter Note* Telephone Encounter - Pebbles Molina LPN - 06/18/2023 4:55 PM EDT Pt. informed [facility]05-06-2024 Miscellaneous Notes* Telephone Encounter - Pebbles Reno [...] please advise. Thank you! documented in this encounterNationwide Children'S Hospital05-06-2024 Telephone encounter Note * Telephone Encounter - Jeff Simeon DO - 06/18/2023 4:39 PM EDT Please call patient to let her know that labs are now ordered Jeff Simeon DO [facility]05-06-2024 Telephone encounter Note* Telephone Encounter - Nguyen Francisco RN - 06/18/2023 12:07 PM EDT Please call Pt once labs have been ordered. [facility]05-06-[facility] Telephone encounter Note* Telephone Encounter - Johnson Zee - 06/18/2023 7:50 AM EDT Patient is requesting lab work for appointment on 06/25/2023. Patient came in this morning and would like to come back soon, please advise. Thank you! [facility]05-01-[facility] History of Present illness Narrative* Lani Edmond LPN - 06/13/2023 9:54 AM EDT Patient presents for B-12 injection. Denies any problems at this time. Patient instructed on any SEof medication, verbalized understanding and agreed to proceed with treatment. Tolerated injection well. Lani Edmond LPN documented in this encounterNationwide Children'S Hospital04-17-2024 History of Present illness Narrative* Lani Edmond LPN - 05/30/2023 9:25 AM EDT Patient presents for B-12 injection. Denies any problems at this time. Patient instructed on any SEof medication, verbalized understanding and agreed to proceed with treatment. Tolerated injection well. Lani Edmond LPN documented in this encounterNationwide Children'S Hospital04-03-2024 History of Present illness Narrative* Lani Edmond LPN - 05/16/2023 9:44 AM EDT Patient presents for B-12 injection. Denies any problems at this time. Patient instructed on any SEof medication, verbalized understanding and agreed to proceed with treatment. Tolerated injection well. Lani Edmond LPN documented in this encounterNationwide Children'[facility] Hospital03-20-2024 History of Present illness Narrative* Lani Edmond LPN - 05/02/2023 9:05 AM EDT Patient presents for B-12 injection. Denies any problems at this time. Patient instructed on any SEof medication, verbalized understanding and agreed to proceed with treatment. Tolerated injection well. Lani Edmond LPN documented in this encounterNationwide Children'S Hospital03-04-2024 History of Present illness Narrative* Lani Edmond LPN - 04/16/2023 3:07 PM EST Patient presents for B-12 injection. Denies any problems at this time. Patient instructed on any SEof medication, verbalized understanding and agreed to proceed with treatment. Tolerated injection well. Lani Edmond LPN documented in this encounterNationwide Children'[facility] Hospital02-21-2024 History of Present illness Narrative* Lani Edmond LPN - 04/04/2023 9:36 AM EST Patient presents for B-12 injection. Denies any problems at this time. Patient instructed on any SEof medication, verbalized understanding and agreed to proceed with treatment. Tolerated injection well. Lani Edmond LPN documented in this encounterNationwide Children'[facility] Hospital02-08-2024 History of Present illness Narrative* Lani Edmond LPN - 03/22/2023 10:07 AM EST Patient presents for B-12 injection. Denies any problems at this time. Patient instructed on any SEof medication, verbalized understanding and agreed to proceed with treatment. Tolerated injection well. Lani Edmond LPN documented in this encounterNationwide Children'S Hospital02-05-2024 History of Present illness Narrative* Karson Woodward APRN.SHUTDOWN COORDINATOR - 03/19/2023 10:49 AM EST Transitional Care Management Progress Note The patients TCM visit was performed within the 14 days of discharge. Patient's Date of discharge: 03/11/2023 Date of initial coordinator contact after discharge: NA Discharge diagnosis: peritoneal abscess Medication review completed Yes Karson Woodward APRN.SHUTDOWN COORDINATOR Provider Documentation: In follow-up of hospitalization, Nguyen [...] days from now. Seeing Dr. Singh through [facility]. PAST MEDICAL HISTORY: Reviewed and updated ALLERGIES: [...] 19, 2023 10:50 AM documented in this encounterNationwide Children'S Hospital02-01-2024 History of Present illness Narrative* Tiffany Lang RN - 03/15/2023 12:02 PM EST TCM Home Visit Referral Source of Stratification: [facility] Admission Status: Discharged Readmission Risk Score: [...] appointments PCP / Copied from Care Everywhere [facility] 03/05-03/11 Retrocecal abscess, Right lower quadrant [...] FOR 5 DAYS SUMMARY: Discharge Network Status: Xld-sx-Wvmpkgu (OON) Discharge Pt discharged from [facility] on 03/11/23. Admitted for: Right lower quadrant abdominal pain, retrocecal abscess, right hemicolectomy Contact made with patient: Yes Hi my name is Tiffany Lang RN and I am calling [facility] the [facility] on behalf of your PCP, Jeff Simeon, [...] like to speak with a social work guest service team leader to help give you support for any [...] I will send your request to a traveling plant operator who will contact and assist you with [...] KELLEY Education Ordered -: No MARIN Lindsay, watch inspector final movement Infection Control Specialist [facility] documented in this encounterNationwide Children'S Hospital01-27-2024 Progress note Author Jameson Snell [facility] March 10, 2023 1:36pm Note Date/Time March 10, 2023 1 :36pm [facility] Medical Records Department [address] [place] [address] Progress Note - Hospitalist 03/10/23 1329 MR#: [id number] Acct: [id number] Name: NGUYEN QUEEN Rep #:[id number] : 1945 77 From: Jameson Martinez PCP: Dr. Jeff Simeon, DO Status:AD IN [facility] Reason for Visit Reason for [...] % (Auto) 62.9, Lymph % (Auto) 15.5L, [place] % (Auto) 6.9, Eos % (Auto) 11.3 [...] to open laparotomy, right hemicolectomy with stapled mjsu-ur-ptns ileocolic anastomosis on 03/07/2023. Intraoperative findings were [...] is controlled. At home, patient is on jtrcqexy01 mg daily. IV hydralazine as needed during [...] shock if needed Total time spent in zbnp-xk-rrpy encounter in discussion of advanced directive 17 [...] % (Auto) 62.9, Lymph % (Auto) 15.5L, [place] % (Auto) 6.9, Eos % (Auto) 11.3 [...] sugar sweets Charges/Coding Visit Charges Inpatient E&M: 38826 Subs Hosp L2 03/10/23 1336 <Electronically signed by Jameson Snell MD> Cosigner Signature (if applicable): CC: ~ Signed [facility] Work Phone: 1(219) 929-273101-27-2024 Progress note Author Richard Mckenzie [facility] March 10, 2023 9:24am Note Date/Time March 10, 2023 9 :24am [facility] Medical Records Department [address] [place] [address] Progress Note - Surgery 03/10/23 0923 MR#: [id number] Acct: [id number] Name: NGUYEN QUEEN Rep #:[id number] : 1945 77 From: Richard landa MD PCP: Dr. Jeff Simeon, DO Status:AD M IN Location: [place] [id number]- [id number] Subjective Subjective Patient reports she is [...] % (Auto) 62.9, Lymph % (Auto) 15.5L, [place] % (Auto) 6.9, Eos % (Auto) 11.3 [...] discharge. Continue antibioticstoday. Richard Mckenzie MD Pager: [facility] [address] [place] [address], [address] [place] [address] Office: 03/10/23 7317 <Electronically signed by Richard Mckenzie MD> Cosigner Signature (if applicable): CC: ~ Signed [facility] Work Phone: 1(604) 671-940901-26-2024 Progress note Author Jameson Snell [facility] March 09, 2023 3:58pm Note Date/Time March 09, 2023 3 :58pm [facility] Medical Records Department [address] [place] [address] Progress Note - Hospitalist 03/09/23 1552 MR#: [id number] Acct: [id number] Name: NGUYEN QUEEN Rep #:[id number] : 1945 77 From: Jameson Martinez PCP: Dr. Jeff Simeon, DO Status:AD M IN Location: [place] [id number]- [id number] Reason for Visit Reason for Visit: [...] 70.1 H, Lymph % (Auto) 11.1 L, [place] % (Auto) 7.4, Eos % (Auto) 7.2 [...] to open laparotomy, right hemicolectomy with stapled manh-tc-chwa ileocolic anastomosis on 03/07/2023. Intraoperative findings were [...] is controlled. At home, patient is on whvkhejh16 mg daily. IV hydralazine as needed during [...] shock if needed Total time spent in svfp-jn-uoyn encounter in discussion of advanced directive 17 [...] EST , Charges/Coding Visit Charges Inpatient E&M: 87284 Subs Hosp L2 03/09/23 1558 <Electronically signed by Jameson Snell MD> Cosigner Signature (if applicable): CC: ~ Signed [facility] Work Phone: 1(114) 919-494901-26-2024 Progress note Author Santosh Ballard [facility] March 09, 2023 9:35am Note Date/Time March 09, 2023 7 :22am [facility] Medical Records Department [address] [facility] [place] [place] [address] Progress Note - Surgery 03/09/23 0721 MR#: [id number] Acct: [id number] Name: NGUYEN QUEEN Rep #:[id number] : 1945 77 From: Santosh Martinez PCP: Dr. Jeff Simeon, DO Status:AD M IN Location: [facility] [id number]- 1 Subjective Subjective Patient seen and examined [...] 70.1 H, Lymph % (Auto) 11.1 L, [place] % (Auto) 7.4, Eos % (Auto) 7.2 [...] inpatient stay Charges/Coding Visit Charges Inpatient E&M: 15988 Subs Hosp L2 03/09/23 0935 <Electronically signed by Santosh Ballard MD> Cosigner Signature (if applicable): CC: ~ Signed [facility] Work Phone: 1(998) 539-140601-25-2024 Progress note Author Jamesonroyce Snell [facility] March 08, 2023 1:55pm Note Date/Time March 08, 2023 1 :55pm [facility] Medical Records Department [address] [place] [address] Progress Note - Hospitalist 03/08/23 1349 MR#: [id number] Acct: [id number] Name: NGUYEN QUEEN Rep #:[id number] : 1945 77 From: Jameson Martinez PCP: Dr. Jeff Simeon, DO Status:AD M IN Location: [place] [address]- 1 Reason for Visit Reason for Visit: [...] 77.4 H, Lymph % (Auto) 9.7 L, [place] % (Auto) 8.4, Eos % (Auto) 2.0, [...] to open laparotomy, right hemicolectomy with stapled oibt-zr-iasx ileocolic anastomosis on 03/07/2023. Intraoperative findings were [...] is controlled. At home, patient is on cctrzbgy59 mg daily. IV hydralazine as needed during [...] shock if needed Total time spent in kkns-yc-ivxc encounter in discussion of advanced directive 17 [...] 77.4 H, Lymph % (Auto) 9.7 L, [place] % (Auto) 8.4, Eos % (Auto) 2.0, [...] EST , Charges/Coding Visit Charges Inpatient E&M: 50496 Subs Hosp L2 03/08/23 1355 <Electronically signed by Jameson Snell MD> Cosigner Signature (if applicable): CC: ~ Signed [facility] Work Phone: 1(941) 461-461501-25-2024 Progress note Author Nguyen Sloan [facility] March 08, 2023 8:44am Note Date/Time March 08, 2023 7 :55am [facility] Medical Records Department [address] [facility] [place] [address] Progress Note - Surgery 03/08/23 0755 MR#: [id number] Acct: [id number] Name: NGUYEN QUEEN Rep #:[id number] : 1945 77 From: Nguyen REDDY PA-C PCP: Dr. Jeff Simeon, DO Status:AD M IN Location: [facility] [id number]- 1 Subjective Subjective Patient is a 77 [...] 84.0 H, Lymph % (Auto) 5.9 L, [place] % (Auto) 9.1, Eos % (Auto) 0.0, [...] 77.4 H, Lymph % (Auto) 9.7 L, [place] % (Auto) 8.4, Eos % (Auto) 2.0, [...] Abdominal Wound Culture - Preliminary GNR lactose education associate Physical Exam GI GI Narrative: Abdomen- incision [...] this patient Charges/Coding Visit Charges Inpatient E&M: 89997 Subs Hosp L1 (no charge; post-op) 03/08/23 0844 <Electronically signed by Nguyen REDDY PA-C> Cosigner Signature (if applicable): CC: ~ Signed [facility] Work Phone: 1(266) 818-297801-24-2024 Progress note Author Jameson Snell [facility] March 07, 2023 2:20pm Note Date/Time March 07, 2023 2 :20pm [facility] Medical Records Department [address] [place] [address] Progress Note - Hospitalist 03/07/23 1412 MR#: [id number] Acct: [id number] Name: NGUYEN QUEEN Rep #:[id number] : 1945 77 From: Jameson Martinez PCP: Dr. Jeff Simeon, DO Status:AD M IN Location: [place] [address] Reason for Visit Reason for Visit: Diagnoses [...] 84.0 H, Lymph % (Auto) 5.9 L, [place] % (Auto) 9.1, Eos % (Auto) 0.0, [...] Abdominal Wound Culture - Preliminary GNR lactose education associate Radiography Diagnostic Testing: Radiology Impression Chest X-Ray [...] to open laparotomy, right hemicolectomy with stapled lxmo-rd-oagt ileocolic anastomosis on 03/07/2023. Intraoperative findings were [...] is controlled. At home, patient is on vajolpvc17 mg daily. IV hydralazine as needed during [...] shock if needed Total time spent in pmpy-fg-orrq encounter in discussion of advanced directive 17 minutes. Laboratory Results 03/05/23 19:30: Urine Color Yellow, Urine Clarity Sl. Cloudy, Urine pH 5.0, Ur Specific [place] 1.025, Urine Protein 30 H, Urine Glucose [...] 83.7 H, Lymph % (Auto) 7.9 L, [place] % (Auto) 6.6, Eos % (Auto) 0.8, [...] (Auto) 83.9 H, Lymph % (Auto)6.4 L, [place] % (Auto) 7.8, Eos % (Auto) 0.8, [...] 147 H Charges/Coding Visit Charges Inpatient E&M: 36773 Subs Hosp L2 03/07/23 1420 <Electronically signed by Jameson Snell MD> Cosigner Signature (if applicable): CC: ~ Signed [facility] Work Phone: 1(762) 418-174801-24-2024 Progress note Author Santosh Ballard [facility] March 07, 2023 9:16am Note Date/Time March 07, 2023 9 :16am [facility] Medical Records Department [address] [place] [address] Progress Note - Surgery 03/07/23906 MR#: [id number] Acct: [id number] Name: NGUYEN QUEEN Rep #:[id number] : 1945 77 From: Santosh Martinez PCP: Dr. Jeff Simeon, DO Status:AD M IN Location: [facility] [id number]- 1 Subjective Subjective Patient is found sitting [...] 84.0 H, Lymph % (Auto) 5.9 L, [place] % (Auto) 9.1, Eos % (Auto) 0.0, [...] inpatient stay Charges/Coding Visit Charges Inpatient E&M: 26169 Subs Hosp L2 03/07/23 0916 <Electronically signed by Santosh Ballard MD> Cosigner Signature (if applicable): CC: ~ Signed [facility] Work Phone: 1(769) 504-521701-24-2024 Procedure [facility] 03-06-2023 Consult note Author Jameson Snell [facility] March 06, 2023 2:59pm Note Date/Time March 06, 2023 8 :45am [facility] Medical Records Department [address] [place] [address] Consultation - Hospitalist 03/06/23 0844 MR#: [id number] Acct: [id number] Name: NGUYEN QUEEN Rep #:[id number] : 1945 77 From: Jameson Martinez PCP: Dr. Jeff Simeon, DO Status:AD M IN Location: [facility] [id number]- 1 Assessment & Plan Assessment/Plan (1) Retrocecal [...] is controlled. At home, patient is on [id number] mg daily. IV hydralazine as needed during [...] shock if needed Total time spent in jqwe-dd-gbhl encounter in discussion of advanced directive 17 minutes. Laboratory Results 03/05/23 19:30: Urine Color Yellow, Urine Clarity Sl. Cloudy, Urine pH 5.0, Ur Specific [place] 1.025, Urine Protein 30 H, Urine Glucose [...] 83.7 H, Lymph % (Auto) 7.9 L, [place] % (Auto) 6.6, Eos % (Auto) 0.8, [...] (Auto) 83.9 H, Lymph % (Auto)6.4 L, [place] % (Auto) 7.8, Eos % (Auto) 0.8, [...] hypothyroidism. She denies chronic heart conditions including MN/unstable angina or CHF. Denies chronic lung disease. [facility] Medical History Anemia Chronic pain Diabetes mellitus [...] Sl. Cloudy, Urine pH 5.0, Ur Specific [place] 1.025, Urine Protein 30 H, Urine Glucose [...] 83.7 H, Lymph % (Auto) 7.9 L, [place] % (Auto) 6.6, Eos % (Auto) 0.8, [...] (Auto) 83.9 H, Lymph % (Auto)6.4 L, [place] % (Auto) 7.8, Eos % (Auto) 0.8, [...] Charges/Coding Visit Charges Office Visits / Consults: 05087 IP Consult L4 Procedures Hospitalists Procedures: 67606 Advncd Care Plan 30 Min 03/06/23 1459 <Electronically signed by Jameson Snell MD> Cosigner Signature (if applicable): CC: MELYSSA Lynn; Felipe Walters MD; Dr. Emma Dubois MD; Dr. King Carroll DO; Dr. Nohelia Lazar MD; Dr. Rafia Ruosseau MD; Dr. Rafia Marroquin MD; Dr. Marisel [...] Myers; BARRY Menezes; Casey Gupta MD~ Signed [facility] Work Phone: 1(957) 464-624301-23-2024 Progress note Author Nguyen Sloan [facility] March 06, 2023 8:17am Note Date/Time March 06, 2023 8 :10am [facility] Medical Records Department [address] [place] [address] Progress Note - Surgery 03/06/23 0804 MR#: [id number] Acct: [id number] Name: NGUYEN QUEEN Rep #:[id number] : 1945 77 From: Nguyen REDDY PA-C PCP: Dr. Jeff Simeon, DO Status:AD M IN Location: [facility] UKL513- 1 Subjective Subjective Patient is a 77 y/o F I am following in conjunction with Dr. Ballard. She notes right lower quadrant which waxed and waned over night. Patient notes history of diabetes which is well controlled. Patient does all of her doctoring with the [facility]. She denies nausea, vomiting this morning. [...] Sl. Cloudy, Urine pH 5.0, Ur Specific [place] 1.025, Urine Protein 30 H, Urine Glucose [...] 83.7 H, Lymph % (Auto) 7.9 L, [place] % (Auto) 6.6, Eos % (Auto) 0.8, [...] (Auto) 83.9 H, Lymph % (Auto)6.4 L, [place] % (Auto) 7.8, Eos % (Auto) 0.8, [...] this patient. Charges/Coding Visit Charges Inpatient E&M: 99674 Subs Hosp L1 03/06/23 0817 <Electronically signed by Nguyen REDDY PA-C> Cosigner Signature (if applicable): CC: ~ Signed [facility] Work Phone: 1(277) 913-457101-23-2024 Discharge summary Author Stas Arredondo [facility] March 05, 2023 11:24pm Note Date/Time March 05, 2023 7 :19pm [facility] Medical Records Department [address] [facility] [place] [address] Emergency Department Summary 03/05/23 MR#: [id number] Acct: [id number] Name: NGUYEN QUEEN BARBARA Rep #:[id number] : 1945 77 From: Stas Betancur PCP: Dr. Jeff Simeon, DO Status:AD M IN Location: [place] [address] HPI HPI - GI History of Present [...] the 200s over the past few days. [facility] Medical History (Updated 03/05/23 @ 21:22 by [...] 83.7 H Lymph % (Auto) 7.9 L [place] % (Auto) 6.6 Eos % (Auto) 0.8 [...] Sl. Cloudy Urine pH 5.0 Ur Specific Athol 1.025 Urine Protein 30 H Urine Glucose [...] by myself. Management Discussion w/another healthcare provider: [employer] (Dr. Ballard from general surgery) Treatment and [...] Jeff Simeon Disposition Disposition: Acute Care [facility] What to do if you have Problems For any increased pain, shortness of breath, bleeding, nausea or vomiting, chestpain, or any unexpected problems, contact your Primary Care Provider. Call [facility] ([phone]) or report to the closest Emergency Room. Call 911 if necessary. 03/05/232323 <Electronically signed by Stas Arredondo DO> Cosigner Signature (if applicable): CC: Dr. Jeff Simeon DO ~ Signed [facility] Work Phone: 1(336) 967-341701-23-2024 History and physical note Author Santosh Ballard [facility] March 05, 2023 10:59pm Note Date/Time March 05, 2023 1 0:59pm [facility] Medical Records Department [address] [place] [address] History & Physical Exam 03/05/235 MR#: [id number] Acct: [id number] Name: NGUYEN QUEEN Rep #:[id number] : 1945 77 From: Santosh Martinez PCP: Dr. Jeff Simeon, DO Status:RE G ER Location: ED HPI - General General Date of Admission: 03/05/23 Date of Service: 03/05/23 Chief Complaint: Right lower quadrant abdominal pain HPI Narrative NGUYEN QUEEN, is a 77 F, with history of well-controlled diabetes mellitus, who presents to [facility] with complaints of right lower quadrant abdominal [...] recently discovered that she is 50% Ashkenazi [employer]ism and she attributes many of her allergies (stating that she is allergic to even air [she] breathes to this background. [facility] Medical History (Updated 03/05/23 @ 21:22 by [...] Sl. Cloudy, Urine pH 5.0, Ur Specific Athol 1.025, Urine Protein 30 H, Urine Glucose [...] 83.7 H, Lymph % (Auto) 7.9 L, [place] % (Auto) 6.6, Eos % (Auto) 0.8, [...] that we proceed with treatment here at [facility] or otherwise seek transfer to a [facility] facility where she apparently has more extensive medical records. She confirms her intent to see her care through here [facility] and I therefore recommend that we proceed [...] the ORtomorrow. Charges/Coding Visit Charges Inpatient E&M: 28028 Init Hosp L2 03/05/23 9273 <Electronically signed by Santosh Ballard MD> Cosigner Signature (if applicable): CC: Dr. Jeff Simeon DO; Dr. Santosh Ballard MD~ Signed [facility] Work Phone: 1(362) 670-575201-22-2024 Discharge summary Author Stas Arredondo [facility] March 05, 2023 11:24pm Note Date/Time March 05, 2023 7 :19pm [facility] Medical Records Department [address] [place] [address] Emergency Department Summary 03/05/23 MR#: [id number] Acct: [id number] Name: NGUYEN QUEEN Rep #:[id number] : 1945 77 From: Stas Betancur PCP: Dr. Jeff Simeon DO Status:AD M IN Location: [place] [address] HPI HPI - GI History of Present [...] the 200s over the past few days. [facility] Medical History (Updated 03/05/23 @ 21:22 by [...] 83.7 H Lymph % (Auto) 7.9 L [place] % (Auto) 6.6 Eos % (Auto) 0.8 [...] Sl. Cloudy Urine pH 5.0 Ur Specific Athol 1.025 Urine Protein 30 H Urine Glucose [...] by myself. Management Discussion w/another healthcare provider: [employer] (Dr. Ballard from general surgery) Treatment and [...] Jeff Simeon Disposition Disposition: [facility] Care [facility] What to do if you have Problems For any increased pain, shortness of breath, bleeding, nausea or vomiting, chestpain, or any unexpected problems, contact your Primary Care Provider. Call [facility] ([phone]) or report to the closest Emergency Room. Call 911 if necessary. 03/05/232323 <Electronically signed by Stas Arredondo DO> Cosigner Signature (if applicable): CC: Dr. Jeff Simeon DO ~ Signed [facility] Work Phone: 1(442) 169-749212-14-2023 History of Present illness Narrative* Lani Edmond LPN - 01/25/2023 10:22 AM EST Patient presents for B-12 injection. Denies any problems at this time. Patient instructed on any SEof medication, verbalized understanding and agreed to proceed with treatment. Tolerated injection well. Lani Edmond LPN documented in this encounterNation[facility]11-16-[facility] History of Present illness Narrative* Lani Edmond LPN - 12/28/2022 9:50 AM EST Patient presents for B-12 injection. Denies any problems at this time. Patient instructed on any SEof medication, verbalized understanding and agreed to proceed with treatment. Tolerated injection well. Lani Edmond LPN documented in this encounterNationwide [facility]10-31-2023 History of Present illness Narrative* Jeff Simeon [...] Diagnosis Date Advance care planning 08/24/2021 [facility] Diabetes mellitus, type 2 (HCC) Environmental allergies [...] found. 5 yr recall. [facility] COLONOSCOPY FLX DX W/COLLJ SPEC WHEN PFRMD 02/26/2018 Colonoscopy ESOPHAGOGASTRODUODENOSCOPY TRANSORAL DIAGNOSTIC 08/31/2003 Unremarkable, negative biopsies. [facility] ESOPHAGOGASTRODUODENOSCOPY TRANSORAL DIAGNOSTIC 02/26/2018 EGD LAPAROSCOPIC CHOLECYSTECTOMY 04/05/2022 REMV CATARACT EXTRACAP,INSERT LENS Bilateral TONSILLECTOMY HX Social History Tobacco Use Smoking status: Never Smokeless tobacco: Never Vaping Use Vaping Use: Never used Substance Use Topics Alcohol use: No Drug use: No FAMILY HISTORY Adopted: Yes Allergies: ALLERGIES Allergen Reactions Benadryl [Diphenhyd* Swelling Penicillins Shortness of Breath Aazsiza-Iun-Qrp Red* Contraindication-Medical Surgical History of liver failure [...] with the plan. Jeff Simeon DO [address] [place] [address] documented in this encounterNationwide Children'[facility]10-19-2023 History of Present illness Narrative* aLni Edmond LPN - 11/30/2022 9:16 AM EDT Patient presents for B-12 injection. Denies any problems at this time. Patient instructed on any SEof medication, verbalized understanding and agreed to proceed with treatment. Tolerated injection well. Lani Edmond LPN documented in this encounterNationwide [facility]10-05-2023 History of Present illness Narrative* Lani Edmond LPN - 11/16/2022 9:00 AM EDT Patient presents for B-12 injection. Denies any problems at this time. Patient instructed on any SEof medication, verbalized understanding and agreed to proceed with treatment. Tolerated injection well. Lani Edmond LPN documented in this encounterNationwide [facility]09-22-2023 History of Present illness Narrative* Lani Edmond LPN - 11/03/2022 8:53 AM EDT Patient presents for B-12 injection. Denies any problems at this time. Patient instructed on any SEof medication, verbalized understanding and agreed to proceed with treatment. Tolerated injection well. Lani Edmond LPN documented in this encounterNationwide [facility] Hospital09-05-2023 History of Present illness Narrative* Lani Edmond LPN - 10/17/2022 9:11 AM EDT Patient presents for B-12 injection. Denies any problems at this time. Patient instructed on any SEof medication, verbalized understanding and agreed to proceed with treatment. Tolerated injection well. Lani Edmond LPN documented in this encounterNationwide Children'[facility] Hospital08-24-2023 Miscellaneous Notes* Telephone Encounter - Maribeth Andrade Ma - 10/05/2022 11:39 AM EDT Left detailed message on voicemail that labs are normal Maribeth Andrade Ma * Telephone Encounter - Jeff Simeon DO - 10/05/2022 10:22 AM EDT Please inform patient that her recent liver enzyme labs and free t4 thyroid levels are normal Jeff Simeon DO documented in this encounterNationwide Children'[facility] Hospital08-21-2023 History of Present illness Narrative* Lani Edmond LPN - 10/02/2022 9:42 AM EDT Patient presents for B-12 injection. Denies any problems at this time. Patient instructed on any SEof medication, verbalized understanding and agreed to proceed with treatment. Tolerated injection well. Lani Edmond LPN documented in this encounterNationwide Children'[facility] Hospital08-08-2023 History of Present illness Narrative* Lani Edmond LPN - 09/19/2022 9:28 AM EDT Patient presents for B-12 injection. Denies any problems at this time. Patient instructed on any SEof medication, verbalized understanding and agreed to proceed with treatment. Tolerated injection well. Lani Edmond LPN documented in this encounterNationwide Children'[facility] Hospital07-25-2023 History of Past illness Narrative* Problem [...] of this encounter (statuses as of 03/16/2023) [facility] of Past illness Narrative* Problem [...] of this encounter (statuses as of 03/22/2023) [facility] of Past illness Narrative* Problem [...] of this encounter (statuses as of 03/22/2023) [address]25-2023 History of Past illness Narrative* Problem [...] of this encounter (statuses as of 04/04/2023) [facility] of Past illness Narrative* Problem [...] of this encounter (statuses as of 04/16/2023) [address]25-2023 History of Past illness Narrative* Problem [...] of this encounter (statuses as of 05/02/2023) [facility] of Past illness Narrative* Problem [...] of this encounter (statuses as of 05/16/2023) [facility] of Past illness Narrative* Problem [...] of this encounter (statuses as of 05/30/2023) [facility] History of Present illness Narrative* Lani Edmond LPN - 08/07/2022 11:24 AM EDT Patient presents for B-12 injection. Denies any problems at this time. Patient instructed on any SEof medication, verbalized understanding and agreed to proceed with treatment. Tolerated injection well. Lani Edmond LPN documented in this encounterNationwide Children'[facility] Hospital05-30-2023 History of Present illness Narrative* Lani Edmond LPN - 07/11/2022 9:33 AM EDT Patient presents for B-12 injection. Denies any problems at this time. Patient instructed on any SEof medication, verbalized understanding and agreed to proceed with treatment. Tolerated injection well. Lani Edmond LPN documented in this encounterNationwide Children'[facility] Hospital05-01-2023 History of Present illness Narrative* Lani Edmond LPN - 06/12/2022 9:09 AM EDT Patient presents for B-12 injection. Denies any problems at this time. Patient instructed on any SEof medication, verbalized understanding and agreed to proceed with treatment. Tolerated injection well. Lani Edmond LPN documented in this encounterNationwide Children'[facility] Hospital04-14-2023 History of Present illness Narrative* Jeff Simeon [...] found. 5 yr recall. [facility] COLONOSCOPY FLX DX W/COLLJ SPEC WHEN PFRMD 02/26/2018 Colonoscopy ESOPHAGOGASTRODUODENOSCOPY TRANSORAL DIAGNOSTIC 08/31/2003 Unremarkable, negative biopsies. [facility] ESOPHAGOGASTRODUODENOSCOPY TRANSORAL DIAGNOSTIC 02/26/2018 EGD LAPAROSCOPIC CHOLECYSTECTOMY 04/05/2022 REMV CATARACT EXTRACAP,INSERT LENS Bilateral TONSILLECTOMY HX Social History Tobacco Use Smoking status: Never Smokeless tobacco: Never Vaping Use Vaping Use: Never used Substance Use Topics Alcohol use: No Drug use: No FAMILY HISTORY Adopted: Yes Allergies: ALLERGIES Allergen Reactions Benadryl [Diphenhyd* Swelling Penicillins Shortness of Breath [place]husaek-Las-Cpy Red* Contraindication-Medical Surgical History of liver failure [...] Thyroid.^Disp: 90 tablet^Rfl: 3 blood sugar diagnostic ([employer] FinancialTOUCH ULTRA TEST STRIP) test strip^Type 2 diabetes, [...] with the plan. Jeff Simeon DO [address] [place] [address] documented in this encounterNationwide Children'[facility] Hospital04-03-2023 History of Present illness Narrative* Lani Edmond LPN - 05/15/2022 9:00 AM EDT Patient presents for B-12 injection. Denies any problems at this time. Patient instructed on any SEof medication, verbalized understanding and agreed to proceed with treatment. Tolerated injection well. Lani Edmond LPN documented in this encounterNationwide Children'[facility] Hospital03-10-2023 History of Present illness Narrative* Nguyen Campos PA-C - 04/21/2022 3:25 PM EST FOLLOW UP VISIT - CHOLECYSTECTOMY NAME: Nguyen Glover [facility] NO.: [id number] DATE OF SERVICE: 04/13/2022 : 1945 REFERRING [...] needed. Nguyen Campos PA-C documented in this encounterNationwide Children'S Hospital03-02-2023 Instructions* Patient Instructions* Nguyen Campos PA-C - 04/13/2022 9:33 AM EST -Continue warm compresses as needed for discomfort -OK to begin walking dog in the next few days The following instructions are important for you related to your office visit today with the [facility]. INSTRUCTIONS FOLLOWING YOU RECENT GALLBLADDER [...] you should contact our office immediately @ [phone] and ask to be transferred to the General Surgery department. documented in this encounterNationwide Children'S Hospital02-27-2023 Instructions* Patient Instructions* Nguyen Campos PA-C - 04/10/2022 2:07 PM EST -Heating pad/warm compresses -Aleve short-term for pain -May use abdominal binder when up and ambulating -Call immediately if any worsening symptoms The following instructions are important for you related to your office visit today with the [facility]. INSTRUCTIONS FOLLOWING YOU RECENT GALLBLADDER [...] you should contact our office immediately @ [phone] and ask to be transferred to the General Surgery department. documented in this encounterNationwide Children'S Hospital02-27-2023 History of Present illness Narrative* Nguyen Campos PA-C - 04/10/2022 2:05 PM EST FOLLOW UP VISIT - CHOLECYSTECTOMY NAME: Nguyen Glover [facility] NO.: [id number] DATE OF SERVICE: 04/10/2022 : 1945 REFERRING [...] days. Nguyen Campos PA-C documented in this encounterNationwide Children'S Hospital02-22-2023 NoteHNO ID: [id number] Author: Kelly Jordan APRN.STAFF INTERPRETER Service: Anesthesiology Author Type: Nurse Net Lead Architect Type: Anesthesia Procedure Notes Filed: 04/05/2022 7:52 AM Note Text: ANESTHESIOLOGY PROCEDURE NOTE Airway General Information Procedure Start Time/Medication Administration: 04/05/2022 7:40 AM Patient location during procedure: OR Timeout Performed Pre-procedure: timeout performed Consent Obtained: Yes Patient identity confirmed: arm band, care guest service team leader and patient Staffing Anesthesiologist: Nohemi Ortiz MD STAFF INTERPRETER: Kelly Jordan APRN.STAFF INTERPRETER Performed by: STAFF INTERPRETER Indications and Patient Condition Indications for airway [...] 1 Airway not difficult SIGNATURE: Kelly Jordan APRN.STAFF INTERPRETER PATIENT NAME: Nguyen Queen DATE: April 05, 2022 TIME: 7:51 AM CSN: [id number] Instructions* Patient Instructions* Snehal Yee APRN.SHUTDOWN COORDINATOR - 04/03/2022 12:07 PM EST PATIENT PREOPERATIVE INSTRUCTIONS [facility]: [phone] -- [address] [facility] [address]. Please read below carefully for your personalized [...] Procedures: - YOU MUST HAVE A RESPONSIBLE HYDRAULIC ELEVATOR CONSTRUCTOR TAKE YOU HOME. A APPEALS WRITER OR KENO DEALER CANNOT BE MADE A RESPONSIBLE HYDRAULIC ELEVATOR CONSTRUCTOR. - We recommend that a responsible person [...] Advance Directive, please fax a copy to [phone] or email to for it to be [...] day. Snehal Yee APRN.CNP documented in this encounterNationwide Children'S Hospital02-20-2023 History and physical note * Snehal Yee [...] > 1 time per night or hematuria. GENERAL EDUCATION INSTRUCTOR: Negative for abnormal vaginal bleeding, abnormal vaginal [...] No polyps found. 5 yr recall. [facility] DX W/COLLJ SPEC WHEN PFRMD 02/26/2018 Colonoscopy ESOPHAGOGASTRODUODENOSCOPY TRANSORAL DIAGNOSTIC 08/31/2003 Unremarkable, negative biopsies. [facility] ESOPHAGOGASTRODUODENOSCOPY TRANSORAL DIAGNOSTIC 02/26/2018 EGD REMV [...] Benadryl [Diphenhyd* Swelling Penicillins Shortness of Breath Dkmtkva-Xeb-Sqz Red* Contraindication-Medical Surgical History of liver failure [...] or any previous visit (from the past 49323 hour(s)). Assessment Patient has the following medical [...] large neck Non-male patient STOP-Bang Score: 2 [id number] Score: Age: 65-76 Sex: Female CHF history: No Hypertension history: Yes Stroke/TIA/thromboembolism history: No Vascular disease history: No Diabetes history: Yes [id number] Score: 4 ASA Class: 2 ANESTHESIA FINDINGS: Intubation History: No history of difficult intubation. No abnormal airway history Significant Anesthesia Considerations: Per patient in the past she's stopped breathing during 2 surgeries. Unsure why this was. Had surgery at [place] [id number] without issues. potential difficult IV/vein access Airway [...] 10:38 AM PAGER/CONTACT #: documented in this encounterNationwide Children'S Hospital02-10-2023 History of Present illness Narrative* Jessee Holloway [...] more recently had an endoscopy performed at [place] where the anesthesiologist told her that she [...] found. 5 yr recall. [facility]a. [facility] COLONOSCOPY FLX DX W/COLLJ SPEC WHEN PFRMD 02/26/2018 Colonoscopy ESOPHAGOGASTRODUODENOSCOPY TRANSORAL DIAGNOSTIC 08/31/2003 Unremarkable, negative biopsies. [facility] ESOPHAGOGASTRODUODENOSCOPY TRANSORAL DIAGNOSTIC 02/26/2018 EGD TONSILLECTOMY [...] injection 1,000 mcg INTRAMUSCULAR As Directed Jeff Simeon, DO 1,000 mcg at 10/20/21 0907 ALLERGIES: Benadryl [Diphenhydramine Hcl], Penicillins, and Fgshfme-Qzs-Uyu Reductase Inhibitors PERSONAL HISTORY: Social History Tobacco Use Smoking status: Never Smokeless tobacco: Never Vaping Use Vaping Use: Never used Substance Use Topics Alcohol use: No Drug use: No FAMILY HISTORY: FAMILY HISTORY Adopted: Yes REVIEW OF SYMPTOMS: The review of systems data was entered by the nurse and reviewed by ca Nursing Notes: Sheri Roth LPN 03/24/2022 10:30 [...] Procedure: LAPAROSCOPIC CHOLECYSTECTOMY WITH INTRAOPERATIVE CHOLEANGIOGRAM - 20443-958 Planned antibiotic: clindamycin 900mg IVPB meat boner to OR SCDs needed - Yes Blemish Remover Needed - Yes Diagnoses: (R10.11) RUQ abdominal pain (K80.20) Calculus of gallbladder without cholecystitis without obstruction (K76.0) Fatty liver My findings have been communicated to Dr. Jeff Simeon DO via shared medical record. This note will be forwarded to Dr. Jeff Simeon DO. Jessee Holloway MD documented in this encounterNationwide Children'S Hospital02-10-2023 Nurse Note* Sheri Roth, AERIAL TRAM OPERATOR - 03/24/2022 10:27 AM EST REVIEW OF [...] 2019 Sheri Roth LPN documented in this encounterNationwide Children'S Hospital02-08-2023 Miscellaneous Notes* Telephone Encounter - Brinda [...] see the surgeon to review further Jeff Simeon DO * Telephone Encounter - Hank Ruvalcaba RN - 03/16/2022 1:16 PM EST Patient asking pcp to review and advise on US results. documented in this encounterNationwide [facility]02[facility] History of Present illness Narrative* Lani Edmond LPN - 03/20/2022 9:14 AM EST Patient presents for B-12 injection. Denies any problems at this time. Patient instructed on any SEof medication, verbalized understanding and agreed to proceed with treatment. Tolerated injection well. Lani Edmond LPN documented in this encounterNationwide [facility]01-10-2023 History of Present illness Narrative* Jeff Simeon, [...] found. 5 yr recall. [facility] COLONOSCOPY FLX DX W/COLLJ SPEC WHEN PFRMD 02/26/2018 Colonoscopy ESOPHAGOGASTRODUODENOSCOPY TRANSORAL DIAGNOSTIC 08/31/2003 Unremarkable, negative biopsies. [facility] ESOPHAGOGASTRODUODENOSCOPY TRANSORAL DIAGNOSTIC 02/26/2018 EGD TONSILLECTOMY HX Social History Tobacco Use Smoking status: Never Smokeless tobacco: Never Substance Use Topics Alcohol use: No Drug use: No FAMILY HISTORY Adopted: Yes Allergies: ALLERGIES Allergen Reactions Benadryl [Diphenhyd* Swelling Penicillins Shortness of Breath Olrosvl-Zgd-Qvs Red* Contraindication-Medical Surgical History of liver failure [...] with supplements or by diet (goal of 4844-5386 mg/day - Set up for bone mineral [...] with the plan. Jeff Simeon DO [address] [place] [address] documented in this encounterNationwide Children'[facility] Hospital12-06-2022 History of Present illness Narrative* Lani Edmond LPN - 01/17/2022 9:10 AM EST Patient presents for B-12 injection. Denies any problems at this time. Patient instructed on any SEof medication, verbalized understanding and agreed to proceed with treatment. Tolerated injection well. Lani Edmond LPN documented in this encounterNationwide [facility]11-08-2022 History of Present illness Narrative* Jael Connolly LPN - 12/20/2021 8:58 AM EST Patient here for B12 injection. Given IM in right arm. Patient tolerated injection well. documented in this encounterNationwide [facility] Hospital10-04-2022 History of Present illness Narrative* Jeff Simeon [...] polyps found. 5 yr recall. [facility] COLONOSCOPY FLX DX W/COLLJ SPEC WHEN PFRMD 02/26/2018 Colonoscopy ESOPHAGOGASTRODUODENOSCOPY TRANSORAL DIAGNOSTIC 08/31/2003 Unremarkable, negative biopsies. [facility] ESOPHAGOGASTRODUODENOSCOPY TRANSORAL DIAGNOSTIC 02/26/2018 EGD TONSILLECTOMY HX Social History Tobacco Use Smoking status: Never Smokeless tobacco: Never Substance Use Topics Alcohol use: No Drug use: No FAMILY HISTORY Adopted: Yes Allergies: ALLERGIES Allergen Reactions Benadryl [Diphenhyd* Swelling Penicillins Shortness of Breath Uztkcii-Sdz-Dtt Red* Contraindication-Medical Surgical History of liver failure [...] agreed with the plan. Jeff Simeon DO [address] [place] [address] documented in this encounterNationwide Children'[facility] Hospital09-08-2022 History of Present illness Narrative* Jael Connolly LPN - 10/20/2021 9:17 AM EDT Patient presents for B-12 injection. Denies any problems at this time. Patient instructed on any SEof medication, verbalized understanding and agreed to proceed with treatment. Tolerated injection well. Jael Connolly LPN documented in this encounterNationwide Children'[facility] Hospital06-06-2022 History of Present illness Narrative* Lani Edmond LPN - 07/18/2021 9:34 AM EDT Patient presents for B-12 injection. Denies any problems at this time. Patient instructed on any SEof medication, verbalized understanding and agreed to proceed with treatment. Tolerated injection well. Lani Edmond LPN documented in this encounterNationwide [facility] Hospital2022 History of Present illness Narrative* Lani Edmond LPN - 07/04/2021 9:36 AM EDT Patient presents for B-12 injection. Denies any problems at this time. Patient instructed on any SEof medication, verbalized understanding and agreed to proceed with treatment. Tolerated injection well. Lani Edmond LPN documented in this encounterNationwide Children'[facility] Hospital05-09-2022 History of Present illness Narrative* Lani Edmond LPN - 06/20/2021 2:39 PM EDT Patient presents for B-12 injection. Denies any problems at this time. Patient instructed on any SEof medication, verbalized understanding and agreed to proceed with treatment. Tolerated injection well. Lani Edmond LPN documented in this encounterNationwide Children'[facility] Hospital04-25-2022 History of Present illness Narrative* Lani Edmond LPN - 06/06/2021 2:50 PM EDT Patient presents for B-12 injection. Denies any problems at this time. Patient instructed on any SEof medication, verbalized understanding and agreed to proceed with treatment. Tolerated injection well. Lani Edmond LPN documented in this encounterNationwide Children'[facility] Hospital04-19-2022 History of Present illness Narrative* Jeff Simeon, - 05/31/2021 7:23 AM EDT Patient presents with: Follow Up: 3 months HPI: Nguyen Queen is a 76 year old female who presents to the office today for review of health conditions. Concerns today: had an episode of food allergy reaction in Nov, symptoms are improved. Was seen at [facility] and given rxfor prednisone and zofran. Prednisone [...] with sugars in the <200 range. Patient's [id number] was Hemoglobin A1C (%) Date Value 2021 [...] found. 5 yr recall. [facility]. [facility] COLONOSCOPY FLX DX W/COLLJ SPEC WHEN PFRMD 02/26/2018 Colonoscopy ESOPHAGOGASTRODUODENOSCOPY TRANSORAL DIAGNOSTIC 08/31/2003 Unremarkable, negative biopsies. [facility] ESOPHAGOGASTRODUODENOSCOPY TRANSORAL DIAGNOSTIC 02/26/2018 EGD TONSILLECTOMY HX Social History Tobacco Use Smoking status: Never Smoker Smokeless tobacco: Never Used Substance Use Topics Alcohol use: No Drug use: No FAMILY HISTORY Adopted: Yes Allergies: ALLERGIES Allergen Reactions Benadryl [Diphenhyd* Swelling Penicillins Shortness of Breath Nnejwvg-Jzu-Kjo Red* Contraindication-Medical Surgical History of liver failure [...] with the plan. Jeff Simeon DO [address] [place] [address] documented in this encounterNationwide Children'S Hospital04-13-2022 Miscellaneous Notes* Telephone Encounter - Nell Bhakta Ma - 05/25/2021 5:34 PM EDT Patient notified and verbalized understanding. Pt asking for Caroline results. Faxed request to [facility] & will place results on PCP desk [...] Simeon. Karson Woodward APRN.CNP documented in this encounterNationwide Children'S Hospital04-06-2022 Miscellaneous Notes* Telephone Encounter - Pebbles Molina LPN - 05/18/2021 2:34 PM EDT Order faxed to [facility]. Pebbles Molina LPN * Telephone Encounter - Jahaira Harrison APRN.CNP - 05/18/2021 12:42 PM EDT Order signed. Please fax. Jahaira Harrison APRN.CNP * Telephone Encounter - Pebbles Molina LPN - 05/18/2021 12:35 PM EDT Please file orders. Needs faxed to [facility]. Pebbles Molina LPN documented in this encounterNationwide Children'S Hospital07-14-2021 History of Present illness Narrative* Kurtis Montes [...] 25, 2020 3:55 PM documented in this encounterNationwide Children'[facility] Hospital01-15-2019 History of Past illness Narrative* Problem Noted Date Resolved Date Obesity, Class III, BMI >= 40 02/26/2018 Diabetes mellitus type 2, controlled, without co mplications 05/17/2015 08/23/2020 documented as of this encounter (statuses as of 05/18/2021) [facility] Narrative* Problem Noted Date Resolved Date Obesity, Class III, BMI >= 40 02/26/2018 Diabetes mellitus type 2, controlled, without co mplications 05/17/2015 08/23/2020 documented as of this encounter (statuses as of 05/31/2021) [facility] Narrative* Problem Noted Date Resolved Date Obesity, Class III, BMI >= 40 02/26/2018 Diabetes mellitus type 2, controlled, without co mplications 05/17/2015 08/23/2020 documented as of this encounter (statuses as of 06/06/2021) [facility] Narrative* Problem Noted Date Resolved Date Obesity, Class III, BMI >= 40 02/26/2018 Diabetes mellitus type 2, controlled, without co mplications 05/17/2015 08/23/2020 documented as of this encounter (statuses as of 06/15/2021) [facility] Narrative* Problem Noted Date Resolved Date Obesity, Class III, BMI >= 40 02/26/2018 Diabetes mellitus type 2, controlled, without co mplications 05/17/2015 08/23/2020 documented as of this encounter (statuses as of 06/20/2021) [facility] Narrative* Problem Noted Date Resolved Date Obesity, Class III, BMI >= 40 02/26/2018 Diabetes mellitus type 2, controlled, without co mplications 05/17/2015 08/23/2020 documented as of this encounter (statuses as of 07/04/2021) [facility] Narrative* Problem Noted Date Resolved Date Obesity, Class III, BMI >= 40 02/26/2018 Diabetes mellitus type 2, controlled, without co mplications 05/17/2015 08/23/2020 documented as of this encounter (statuses as of 07/18/2021) [facility] Narrative* Problem Noted Date Resolved Date Obesity, Class III, BMI >= 40 02/26/2018 Peripheral neuropathy 01/21/2018 08/22/2021 Diabetes mellitus type 2, controlled, without co mplications 05/17/2015 08/23/2020 documented as of this encounter (statuses as of 10/20/2021) [facility] Narrative* Problem Noted Date Resolved Date Obesity, Class III, BMI >= 40 02/26/2018 Peripheral neuropathy 01/21/2018 08/22/2021 Diabetes mellitus type 2, controlled, without co mplications 05/17/2015 08/23/2020 documented as of this encounter (statuses as of 11/15/2021) [facility] Narrative* Problem Noted Date Resolved Date Obesity, Class III, BMI >= 40 02/26/2018 Peripheral neuropathy 01/21/2018 08/22/2021 Diabetes mellitus type 2, controlled, without co mplications 05/17/2015 08/23/2020 documented as of this encounter (statuses as of 12/20/2021) [facility] Narrative* Problem Noted Date Resolved Date Obesity, Class III, BMI >= 40 02/26/2018 Peripheral neuropathy 01/21/2018 08/22/2021 Diabetes mellitus type 2, controlled, without co mplications 05/17/2015 08/23/2020 documented as of this encounter (statuses as of 01/17/2022) [facility] Narrative* Problem Noted Date Resolved Date Obesity, Class III, BMI >= 40 02/26/2018 Peripheral neuropathy 01/21/2018 08/22/2021 Diabetes mellitus type 2, controlled, without co mplications 05/17/2015 08/23/2020 documented as of this encounter (statuses as of 02/21/2022) [facility] Narr[facility]* Problem Noted Date Resolved Date Obesity, Class III, BMI >= 40 02/26/2018 Peripheral neuropathy 01/21/2018 08/22/2021 Diabetes mellitus type 2, controlled, without co mplications 05/17/2015 08/23/2020 documented as of this encounter (statuses as of 03/20/2022) [facility] N[facility]* Problem Noted Date Resolved Date Obesity, Class III, BMI >= 40 02/26/2018 Peripheral neuropathy 01/21/2018 08/22/2021 Diabetes mellitus type 2, controlled, without co mplications 05/17/2015 08/23/2020 documented as of this encounter (statuses as of 03/22/2022) [facility]* Problem Noted Date Resolved Date Obesity, Class III, BMI >= 40 02/26/2018 Peripheral neuropathy 01/21/2018 08/22/2021 Diabetes mellitus type 2, controlled, without co mplications 05/17/2015 08/23/2020 documented as of this encounter (statuses as of 03/25/2022) [facility]* Problem Noted Date Resolved Date Obesity, Class III, BMI >= 40 02/26/2018 Peripheral neuropathy 01/21/2018 08/22/2021 Diabetes mellitus type 2, controlled, without co mplications 05/17/2015 08/23/2020 documented as of this encounter (statuses as of 04/03/2022) [facility]* Problem Noted Date Resolved Date Obesity, Class III, BMI >= 40 02/26/2018 Peripheral neuropathy 01/21/2018 08/22/2021 Diabetes mellitus type 2, controlled, without co mplications 05/17/2015 08/23/2020 documented as of this encounter (statuses as of 04/18/2022) [facility]* Problem Noted Date Resolved Date Obesity, Class III, BMI >= 40 02/26/2018 Peripheral neuropathy 01/21/2018 08/22/2021 Diabetes mellitus type 2, controlled, without co mplications 05/17/2015 08/23/2020 documented as of this encounter (statuses as of 04/21/2022) [facility]* Problem Noted Date Resolved Date Obesity, Class III, BMI >= 40 02/26/2018 Peripheral neuropathy 01/21/2018 08/22/2021 Diabetes mellitus type 2, controlled, without co mplications 05/17/2015 08/23/2020 documented as of this encounter (statuses as of 05/15/2022) [facility]* Problem Noted Date Resolved Date Obesity, Class III, BMI >= 40 02/26/2018 Peripheral neuropathy 01/21/2018 08/22/2021 Diabetes mellitus type 2, controlled, without co mplications 05/17/2015 08/23/2020 documented as of this encounter (statuses as of 05/26/2022) [facility]* Problem Noted Date Resolved Date Obesity, Class III, BMI >= 40 02/26/2018 Peripheral neuropathy 01/21/2018 08/22/2021 Diabetes mellitus type 2, controlled, without co mplications 05/17/2015 08/23/2020 documented as of this encounter (statuses as of 06/12/2022) [facility]* Problem Noted Date Resolved Date Obesity, Class III, BMI >= 40 02/26/2018 Peripheral neuropathy 01/21/2018 08/22/2021 Diabetes mellitus type 2, controlled, without co mplications 05/17/2015 08/23/2020 documented as of this encounter (statuses as of 07/11/2022) [facility]* Problem Noted Date Resolved Date Obesity, Class III, BMI >= 40 02/26/2018 Peripheral neuropathy 01/21/2018 08/22/2021 Diabetes mellitus type 2, controlled, without co mplications 05/17/2015 08/23/2020 documented as of this encounter (statuses as of 08/07/2022) [facility]* Problem [...] of this encounter (statuses as of 09/19/2022) [facility]* Problem [...] of this encounter (statuses as of 10/02/2022) [facility]* Problem [...] of this encounter (statuses as of 10/05/2022) [facility]* Problem [...] of this encounter (statuses as of 10/17/2022) [facility]* Problem [...] of this encounter (statuses as of 11/03/2022) [facility]* Problem [...] of this encounter (statuses as of 11/17/2022) [facility]* Problem [...] of this encounter (statuses as of 11/30/2022) [facility]* Problem [...] of this encounter (statuses as of 12/13/2022) [facility]* Problem [...] of this encounter (statuses as of 12/28/2022) [facility]* Problem [...] of this encounter (statuses as of 01/25/2023) [facility] HospitalDis[facility] summary Author Richard Mckenzie [facility] March 11, 2023 12:33pm Note Date/Time March 11, 2023 1 2:29pm [facility] Medical Records Department [address] [place] [address] Discharge Summary 03/11/23 1226 MR#: [id number] Acct: [id number] Name: NGUYEN QUEEN Rep #:[id number] : 1945 77 From: Richard landa MD PCP: Dr. Jeff Simeon DO Status:AD M IN Location: [facility] [id number] Providers Date of Admission: 03/05/23 Primary [...] for her follow-up. Richard Mckenzie MD Pager: [facility] [address] [place] [address], [address] [place] [address] Office: Medications at Discharge Home Medications ondansetron [...] (Auto) 65.5, Lymph % (Auto) 14.9 L, [place] % (Auto) 7.2, Eos % (Auto) 8.1 [...] to schedule 1 week follow up appointment. [phone] Meaningful Use Info Meaningful Use Diagnoses (Choose [...] W/Diff, Automated (Routine) Timeframe: 1 Week Facility: [facility] - Location: Laboratory Ordered By: Dr. Richard Mckenzie Referrals / Follow Up: Jeff Simeon DO [Primary Care Provider] - Disposition Disposition (needs filled in before D/C Order can be placed): Home, Self Care 03/11/23 4583 <Electronically signed by Richard Mckenzie MD> Cosigner Signature (if applicable): CC: Dr. Richard Mckenzie MD; Dr. Jeff Simeon DO~ Signed [facility] Work Phone: Evaluation note* Diagnosis Encounter for screening mammogram for malignant neoplasm of breast- Primary Other screening mammogram documented in this encounter [facility] noteNo assessment information availableWSelect Medical [facility] [place] Work Phone: Evaluation note* Diagnosis Controlled type [...] Other B-complex deficiencies [facility] Vitamin B12 deficiency- Primary Other B-complex deficiencies [facility] Diagnosis Vitamin B12 deficiency- Primary Other B-complex deficiencies [facility] Diagnosis Vitamin B12 deficiency- Primary Other B-complex deficiencies [facility]* Diagnosis Uncontrolled type 2 diabetes mellitus with hyperglycemia (HCC)- Primary Vitamin B12 deficiency Other B-complex deficiencies Controlled type 2 diabetes mellitus without complication, without long-term current use of insulin (HCC) Hypothyroidism, acquired Unspecified hypothyroidism Other vitamin B12 deficiency anemia Iron deficiency Iron deficiency anemia, unspecified Vitamin D deficiency Unspecified vitamin D deficiency [facility]* Diagnosis Vitamin B12 deficiency- Primary Other B-complex deficiencies [facility]* Diagnosis Controlled type 2 diabetes mellitus without complication, without long-term current use of insulin ([facility])- Primary Encounter for screening mammogram for malignant neoplasm of breast Other screening mammogram Hypothyroidism, acquired Unspecified hypothyroidism Vitamin B12 deficiency Other B-complex deficiencies Other vitamin B12 deficiency anemia Vitamin D deficiency Unspecified vitamin D deficiency Iron deficiency Iron deficiency anemia, unspecified Malabsorption syndrome Unspecified intestinal malabsorption Hypertriglyceridemia Pure hyperglyceridemia [facility]* Diagnosis Vitamin B12 deficiency- Primary [...] nonalcoholic liver disease documented in this encounter [facility]* Diagnosis Vitamin B12 deficiency- Primary Other B-complex deficiencies documented [facility] this encounter [facility]* Diagnosis Onset Date Resolution Status Retrocecal abscess acute Right lower quadrant abdominal pain acute [facility] Work Phone: Evaluation note* Diagnosis 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 S/P colectomy Other postprocedural status Nausea Nausea alone [facility]* Diagnosis Onset Date Resolution Status Retrocecal abscess resolved Right lower quadrant abdominal pain resolved Colon cancer, ascending acut e Status post right hemicolectomy acute Colon cancer, ascending acut e Ulcerative colitis acute Colon cancer, ascending acut e Colon cancer, ascending acut e Ulcerative colitis acute Colon cancer, ascending acut e Status post right hemicolectomy acute Ulcerative colitis acute [facility] Work Phone: Evaluation note* Diagnosis Vitamin B12 deficiency- Primary Other B-complex deficiencies documented in this encounter [facility]* Diagnosis Vitamin B12 deficiency- Primary Other B-complex deficiencies documented in this encounter [facility]* Diagnosis Vitamin B12 deficiency- Primary Other B-complex deficiencies Controlled type 2 diabetes mellitus without complication, without long-term current use of insulin (HCC) Hypothyroidism, acquired Unspecified hypothyroidism Iron deficiency Iron deficiency anemia, unspecified Vitamin D deficiency Unspecified vitamin D deficiency Other vitamin B12 deficiency anemia documented in this encounter [facility]* Diagnosis Essential hypertension [...] Other postprocedural status documented in this encounter [facility]* Diagnosis Bilateral impacted cerumen- Primary Impacted cerumen documented in this encounter [facility]* Diagnosis Vitamin B12 deficiency- Primary Other B-complex deficiencies documented in this encounter [facility]* Diagnosis Vitamin B12 deficiency- Primary Other B-complex deficiencies [facility] Diagnosis Vitamin B12 deficiency- Primary Other B-complex deficiencies documented in this encounter [facility]* Diagnosis Vitamin B12 deficiency- Primary Other B-complex deficiencies documented in this encounter [facility]* Diagnosis Essential hypertension with goal blood pressure less than 130/80 Hypertriglyceridemia Pure hyperglyceridemia Hypothyroidism, acquired Unspecified hypothyroidism Controlled type 2 diabetes mellitus without complication, without long-term current use of insulin (HCC) Other iron deficiency anemia Vitamin B12 deficiency- Primary Other B-complex deficiencies documented in this encounter [facility]* Diagnosis Essential hypertension with goal blood pressure less than 130/80 Hypertriglyceridemia Pure hyperglyceridemia Hypothyroidism, acquired Unspecified hypothyroidism Controlled type 2 diabetes mellitus without complication, without long-term current use of insulin (HCC) Other iron deficiency anemia Vitamin B12 deficiency- Primary Other B-complex deficiencies documented in this encounter [facility]* Diagnosis Essential hypertension [...] deficiency anemia, unspecified documented in this encounter [facility]* Diagnosis Essential hypertension with goal blood pressure less than 130/80 Hypertriglyceridemia Pure hyperglyceridemia Hypothyroidism, acquired Unspecified hypothyroidism Controlled type 2 diabetes mellitus without complication, without long-term current use of insulin (HCC) Other iron deficiency anemia Vitamin B12 deficiency- Primary Other B-complex deficiencies documented in this encounter [facility]* Diagnosis Essential hypertension with goal blood pressure less than 130/80 Hypertriglyceridemia Pure hyperglyceridemia Hypothyroidism, acquired Unspecified hypothyroidism Controlled type 2 diabetes mellitus without complication, without long-term current use of insulin (HCC) Other iron deficiency anemia Bilateral lower extremity edema Edema [facility] Diagnosis Essential hypertension with goal blood pressure less than 130/80 Hypertriglyceridemia Pure hyperglyceridemia Hypothyroidism, acquired Unspecified hypothyroidism Controlled type 2 diabetes mellitus without complication, without long-term current use of insulin (HCC) Other iron deficiency anemia Hypokalemia- Primary Hypopotassemia documented in this encounter [facility] Diagnosis Chronic pain of right ankle Bilateral hip pain Pain in joint, pelvic region and thigh Chronic midline low back pain without sciatica Essential hypertension with goal blood pressure less than 130/80 Hypertriglyceridemia Pure hyperglyceridemia Hypothyroidism, acquired Unspecified hypothyroidism Controlled type 2 diabetes mellitus without complication, without long-term current use of insulin (HCC) Other iron deficiency anemia [facility] Diagnosis Essential hypertension with goal blood [...] Abnormality of gait documented [facility] Diagnosis Essential hypertension with goal blood [...] vitamin D deficiency documented in [facility] Diagnosis Essential hypertension with goal blood [...] Other postprocedural status documented in this [facility] Diagnosis Essential hypertension with goal blood [...] Swelling of limb documented in this encounter [facility] note* Diagnosis Essential hypertension with goal blood pressure less than 130/80 Hypertriglyceridemia Pure hyperglyceridemia Hypothyroidism, acquired Unspecified hypothyroidism Controlled type 2 diabetes mellitus without complication, without long-term current use of insulin (HCC) Other iron deficiency anemia Left leg swelling Swelling of limb Right leg swelling Swelling of limb [facility] Diagnosis Essential hypertension with goal blood pressure less than 130/80 Hypertriglyceridemia Pure hyperglyceridemia Hypothyroidism, acquired Unspecified hypothyroidism Controlled type 2 diabetes mellitus without complication, without long-term current use of insulin (HCC) Other iron deficiency anemia Pernicious anemia- Primary documented in this encounter [facility] note* Diagnosis Onset Date Resolution Status Admit Date Colon cancer, ascending chronic S eptember 2024 1:37pm Elevated CEA chronic October 232024 1:37pm Anemia resolved October 1:37pm [facility] Work Phone: History and physical note Author Santosh Ballard [facility] March 05, 2023 10:59pm Note Date/Time March 05, 2023 1 0:59pm [facility] Medical Records Department [address] [place] [address] History & Physical Exam 03/05/23 MR#: [id number] Acct: [id number] Name: NGUYEN QUEEN Rep #:[id number] : 1945 77 From: Santosh Martinez PCP: Dr. Jeff Simeon, DO Status:RE G ER Location: ED HPI - General General Date of Admission: 03/05/23 Date of Service: 03/05/23 Chief Complaint: Right lower quadrant abdominal pain HPI Narrative NGUYEN QUEEN, is a 77 F, with history of well-controlled diabetes mellitus, who presents to [facility] with complaints of right lower quadrant abdominal [...] recently discovered that she is 50% Ashkenazi [employer]ism and she attributes many of her allergies (stating that she is allergic to even air [she] breathes to this background. [facility] Medical History (Updated 03/05/23 @ 21:22 by [...] Sl. Cloudy, Urine pH 5.0, Ur Specific [place] 1.025, Urine Protein 30 H, Urine Glucose [...] 83.7 H, Lymph % (Auto) 7.9 L, [place] % (Auto) 6.6, Eos % (Auto) 0.8, [...] that we proceed with treatment here at [facility] or otherwise seek transfer to a [facility] facility where she apparently has more extensive medical records. She confirms her intent to see her care through here [facility] and I therefore recommend that we proceed [...] the ORtomorrow. Charges/Coding Visit Charges Inpatient E&M: 88044 Init Hosp L2 03/05/23 2254 <Electronically signed by Santosh Ballard MD> Cosigner Signature (if applicable): CC: Dr. Jeff Simeon DO; Dr. Santosh Ballard MD~ Signed [facility] Work Phone: Hospital Discharge instructionsAmbulatory Orders* Gastroenterology Location: None Selected * Oncology Location: None Selected [facility] Work Phone: Progress note Author Richard Mckenzie [facility] March 11, 2023 12:26pm Note Date/Time March 11, 2023 1 2:26pm [facility] Medical Records Department [address] [place] [address] Progress Note - Surgery 03/11/23 1225 MR#: [id number] Acct: [id number] Name: NGUYEN QUEEN Rep #:[id number] : 1945 77 From: Richard landa MD PCP: Dr. Jeff Simeon DO Status:AD M IN Location: [facility] [id number] Subjective Subjective Patient reports he tolerated [...] (Auto) 65.5, Lymph % (Auto) 14.9 L, [place] % (Auto) 7.2, Eos % (Auto) 8.1 [...] for her follow-up. Richard Mckenzie MD Pager: [facility] [address] [place] [address], [address] [place] [address] Office: 03/11/23 1226 <Electronically signed by Richard Mckenzie MD> Cosigner Signature (if applicable): CC: ~ Signed [facility] Work Phone: Progress note Author Jameson Snell [facility] March 11, 2023 12:49pm Note Date/Time March 11, 2023 1 2:49pm [facility] Medical Records Department [address] [place] [address] Progress Note - Hospitalist 03/11/23 1239 MR#: [id number] Acct: [id number] Name: NGUYEN QUEEN Rep #:[id number] : 1945 77 From: Jameson Martinez PCP: Dr. Jeff Simeon, DO Status:AD M IN Location: [facility] [id number] Reason for Visit Reason for Visit: [...] (Auto) 65.5, Lymph % (Auto) 14.9 L, [place] % (Auto) 7.2, Eos % (Auto) 8.1 [...] to open laparotomy, right hemicolectomy with stapled pxps-uq-qasu ileocolic anastomosis on 03/07/2023. Intraoperative findings were [...] antibiotics. Recommend 5 more days of antibiotics. Vthy-aoi-azqgyqo probioticsfor 1 week while patient is taking [...] is controlled. At home, patient is on oqtenmlz99 mg daily. IV hydralazine as needed during [...] (Auto) 65.5, Lymph % (Auto) 14.9 L, [place] % (Auto) 7.2, Eos % (Auto) 8.1 [...] sugar sweets Charges/Coding Visit Charges Inpatient E&M: 13065 Subs Hosp L2 03/11/23 1249 <Electronically signed by Jameson Snell MD> Cosigner Signature (if applicable): CC: ~ Signed [facility] Work Phone: Progress note Author Jarrell Crystal [facility] Note Date/Time November 04, 2024 11:56am [facility] [address] [place] [address] OFFICE VISIT Date of Service: 11/04/24 MR#: [id number] Acct: [id number] Name: NGUYEN QUEEN Rep #: [id number] : 1945 Provider: Jarrell Crystal DO Age/Sex: 79/F Location: [facility] Status: Signed Intake Vital Signs 04/29/24 [...] M FU Chief Complaint: 6 M f/u Certified Juvenile Probation Officer Required: No Is patient in pain?: No [...] Products Adverse Reaction (Verified 11/04/24 11:30) Other [place] And Derivatives Adverse Reaction (Verified 11/04/24 11:30) [...] presents to the office today for f/u *[facility] established 4.15.24 for repeat colonoscopy after [...] endometrium cannot be accurately evaluated with CT [facility] hospitalization 9.05.05 - 9.07.05 abd pain - [...] to open laparotomy, right hemicolectomy with stapled lnpj-nr-ruda ileocolic anastomosis on 03/07/2023. Patient saw oncologist [...] Cosigner Signature: Date (if applicable) CC: ~ [facility] Work Phone: Reason for referral (narrative)* Diagnostic Procedure Only (Routine) - Pending Review Specialty Diagnoses / Procedures Referred By Angela t Referred To Contact [facility] Diagnoses Encounter for screening mammogram for malignant neoplasm of breast Procedures CAROLINE SCREENING W FLOR SCREENING DIGITAL BREAST TOMOSYNTHESIS BI SCREENING MAMMOGRAPHY BI 2-VIEW BREAST INC CAD Jahaira Harrison, SERVICE CONSULTANT.SHUTDOWN COORDINATOR [address] [place] [address] [facility] [address] [place] [address] Referral ID Status Reason Start Date Expiration Date Visits Requested Visits Authorized [id number] Pending Review Auto-Generat ed Referral 05/18/2021 06/17/2022 1 1 [facility] for referral (narrative)* Diagnostic Procedure Only (Routine) - Pending Review Specialty Diagnoses / Procedures Referred By Angela carey Referred To Contact [facility] Diagnoses Encounter for screening mammogram for malignant neoplasm of breast Procedures CAROLINE SCREENING SCREENING MAMMOGRAPHY BI 2-VIEW BREAST INC CAD Jeff Simeon DO [address] [place] [address] [facility] [address] [place] [address] Referral ID Status Reason Start Date Expiration Date Visits Requested Visits Authorized [id number] Pending Review Auto-Generat ed Referral 02/20/2022 03/22/2023 1 1 [facility] for referral (narrative)No reason for referral information availableMarshall [employer] Work Phone: Reason for visit Narrative* Diagnostic Procedure Only (Routine) - Closed Specialty Diagnoses / Procedures Referred By Angela carey Referred To Contact Radiology / [facility] Diagnoses xray main lobby Procedures XR GENERAL 7 Jeff Simeon DO [address] [place] [address] [facility] [address] [place] [address] Referral ID Status Reason Start Date Expiration Date Visits Re quested Visits Authorized [id number] Closed 08/25/2020 02/11/2021 1 1 [facility] for visit Narrative* Diagnostic Procedure Only (Urgent) - Closed Specialty Diagnoses / Procedures Referred By Angela carey Referred To Contact [facility] Diagnoses Left leg swelling Right leg swelling Procedures US DVT LOWER BILATERAL DUP-SCAN XTR VEINS COMPLETE BILATERAL STUDY Jeff Simeon DO [address] [place] [address] Phone: tel: fax: [place] [phone] Referral ID Status Reason Start Date Expiration Date V isits Requested Visits Authorized [id number] Closed Auto-Generate d Referral 2024 06/22/2025 1 1 [facility] Summary Purpose Family History No Family History Records FoundNo Family History Records FoundNo Family History Records FoundNo Family History Records Found Advance Directives No Advanced Directives Records FoundDocuments on File Type Date Recorded 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 Advance Directive(s) 04/23/2019 11:29 AM Advance Directive(s) 02/26/2018 8:33 AM Advance Directive(s) 02/22/2018 7:13 PM Advance Directive Response Recorded Date/ Time Living Will Yes December 21 11:16pm Power of Corrosion Control Fitter Yes December 21, 2020 11:16pm Documents on File Type Date 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 Advance Directive(s) 04/23/2019 11:29 AM Advance Directive(s) 02/26/2018 8:33 AM Advance Directive(s) 02/22/2018 7:13 PM Documents on File Type Date 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 Advance Directive(s) 04/23/2019 11:29 AM Documents on File Type Date Recorded 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 Advance Directive(s) 04/23/2019 11:29 AM Advance Directive Response Recorded Date/ Time Living Will No March 05 7:37pm Power of Corrosion Control Fitter No March 05, 2023 7:37pm Advance Directive Response Recorded Date/ Time Name of Medical Power of Corrosion Control Fitter Alissa gomez (Niece) March 05, 2023 11:31pm Living Will Yes March 05 11:31pm Power of Corrosion Control Fitter Yes March 05, 2023 11:31pm Advance Directive Response Recorded Date/ Time Name of Medical Power of Corrosion Control Fitter Alissa Yingdavis patricia (Niece) March 06, 2023 12:31am Living Will Yes March 06 12:31am Power of Corrosion Control Fitter Yes March 06, 2023 12:31am Advance Directive Response Recorded Date/ Time Living Will No October 15 8:05pm Do you have a Healthcare Power of Corrosion Control Fitter? No October 16, 2023 8:05pm Living Will Yes March 06 12:31am Do you have a Healthcare Power of Corrosion Control Fitter? Yes March 06, 2023 12:31am Advance Directive Response Recorded Date/ Time Living Will Yes March 06 12:31am Do you have a Healthcare Power of Corrosion Control Fitter? Yes March 06, 2023 12:31am Chief Complaint [...] liver Procedures CONSULT TO GENERAL SURGERY OFFICE/OUTPATIENT [facility] HIGH MDM 60-74 MINUTES Jeff Simeon, DO [address] [place] [address] Referral ID Status Reason Start Date Expiration Date Visits Requested Visits Authorized [id number] Authorized PCP Requested Referral 03/21/2022 03/21/2023 1 1 Additional Source Comments INFORMATION SOURCE (unrecogn ized section and content) DATE CREATED AUTHOR 03/02/2018 [facility] DATE CREATED AUTHOR AUTHOR'S ORGANIZ ATION 04/10/2022 [facility] DATE CREATED AUTHOR AUTHOR'S ORGANIZ ATION 12/24/2024 [facility] DATE CREATED AUTHOR AUTHOR'S ORGANIZ ATION 12/24/2024 [facility] Source Comments (unrecognize d section and content) In the event this informatio n is protected by the Federal Confidentiality of Alcohol and Drug Abuse Patient Records regulations: The Federal rules restrict any use of the information to criminally investigate or prosecute any alcohol or drug abuse patient.[facility] the event this information is protected by the Federal Confidentiality of Alcohol and Drug Abuse Patient Records regulations: The Federal rules restrict any use of the information to criminally investigate or prosecute any alcohol or drug abuse patient.[facility] the event this information is protected by the Federal Confidentiality of Alcohol and Drug Abuse Patient Records regulations: The Federal rules restrict any use of the information to criminally investigate or prosecute any alcohol or drug abuse patient.[facility] the event this information is protected by the Federal Confidentiality of Alcohol and Drug Abuse Patient Records regulations: The Federal rules restrict any use of the information to criminally investigate or prosecute any alcohol or drug abuse patient.[facility] the event this information is protected by the Federal Confidentiality of Alcohol and Drug Abuse Patient Records regulations: The Federal rules restrict any use of the information to criminally investigate or prosecute any alcohol or drug abuse patient.[facility] the event this information is protected by the Federal Confidentiality of Alcohol and Drug Abuse Patient Records regulations: The Federal rules restrict any use of the information to criminally investigate or prosecute any alcohol or drug abuse patient.[facility] the event this information is protected by the Federal Confidentiality of Alcohol and Drug Abuse Patient Records regulations: The Federal rules restrict any use of the information to criminally investigate or prosecute any alcohol or drug abuse patient.[facility] the event this information is protected by the Federal Confidentiality of Alcohol and Drug Abuse Patient Records regulations: The Federal rules restrict any use of the information to criminally investigate or prosecute any alcohol or drug abuse patient.[facility] the event this information is protected by the Federal Confidentiality of Alcohol and Drug Abuse Patient Records regulations: The Federal rules restrict any use of the information to criminally investigate or prosecute any alcohol or drug abuse patient.[facility] the event this information is protected by the Federal Confidentiality of Alcohol and Drug Abuse Patient Records regulations: The Federal rules restrict any use of the information to criminally investigate or prosecute any alcohol or drug abuse patient.[facility] the event this information is protected by the Federal Confidentiality of Alcohol and Drug Abuse Patient Records regulations: The Federal rules restrict any use of the information to criminally investigate or prosecute any alcohol or drug abuse patient.[facility] the event this information is protected by the Federal Confidentiality of Alcohol and Drug Abuse Patient Records regulations: The Federal rules restrict any use of the information to criminally investigate or prosecute any alcohol or drug abuse patient.[facility] the event this information is protected by the Federal Confidentiality of Alcohol and Drug Abuse Patient Records regulations: The Federal rules restrict any use of the information to criminally investigate or prosecute any alcohol or drug abuse patient.[facility] the event this information is protected by the Federal Confidentiality of Alcohol and Drug Abuse Patient Records regulations: The Federal rules restrict any use of the information to criminally investigate or prosecute any alcohol or drug abuse patient.[facility] the event this information is protected by the Federal Confidentiality of Alcohol and Drug Abuse Patient Records regulations: The Federal rules restrict any use of the information to criminally investigate or prosecute any alcohol or drug abuse patient.[facility] the event this information is protected by the Federal Confidentiality of Alcohol and Drug Abuse Patient Records regulations: The Federal rules restrict any use of the information to criminally investigate or prosecute any alcohol or drug abuse patient.[facility] HospitalIn the event this information is protected [...] or prosecute any alcohol or drug abuse patient.[facility] the event this information is protected by the Federal Confidentiality of Alcohol and Drug Abuse Patient Records regulations: The Federal rules restrict any use of the information to criminally investigate or prosecute any alcohol or drug abuse patient.[facility] the event this information is protected by the Federal Confidentiality of Alcohol and Drug Abuse Patient Records regulations: The Federal rules restrict any use of the information to criminally investigate or prosecute any alcohol or drug abuse patient.[facility] the event this information is protected by the Federal Confidentiality of Alcohol and Drug Abuse Patient Records regulations: The Federal rules restrict any use of the information to criminally investigate or prosecute any alcohol or drug abuse patient.[facility] the event this information is protected by the Federal Confidentiality of Alcohol and Drug Abuse Patient Records regulations: The Federal rules restrict any use of the information to criminally investigate or prosecute any alcohol or drug abuse patient.[facility] the event this information is protected by the Federal Confidentiality of Alcohol and Drug Abuse Patient Records regulations: The Federal rules restrict any use of the information to criminally investigate or prosecute any alcohol or drug abuse patient.[facility] the event this information is protected by the Federal Confidentiality of Alcohol and Drug Abuse Patient Records regulations: The Federal rules restrict any use of the information to criminally investigate or prosecute any alcohol or drug abuse patient.[facility] the event this information is protected by the Federal Confidentiality of Alcohol and Drug Abuse Patient Records regulations: The Federal rules restrict any use of the information to criminally investigate or prosecute any alcohol or drug abuse patient.[facility] the event this information is protected by the Federal Confidentiality of Alcohol and Drug Abuse Patient Records regulations: The Federal rules restrict any use of the information to criminally investigate or prosecute any alcohol or drug abuse patient.[facility] the event this information is protected by the Federal Confidentiality of Alcohol and Drug Abuse Patient Records regulations: The Federal rules restrict any use of the information to criminally investigate or prosecute any alcohol or drug abuse patient.[facility] the event this information is protected by the Federal Confidentiality of Alcohol and Drug Abuse Patient Records regulations: The Federal rules restrict any use of the information to criminally investigate or prosecute any alcohol or drug abuse patient.[facility] the event this information is protected by the Federal Confidentiality of Alcohol and Drug Abuse Patient Records regulations: The Federal rules restrict any use of the information to criminally investigate or prosecute any alcohol or drug abuse patient.[facility] the event this information is protected by the Federal Confidentiality of Alcohol and Drug Abuse Patient Records regulations: The Federal rules restrict any use of the information to criminally investigate or prosecute any alcohol or drug abuse patient.[facility] the event this information is protected by the Federal Confidentiality of Alcohol and Drug Abuse Patient Records regulations: The Federal rules restrict any use of the information to criminally investigate or prosecute any alcohol or drug abuse patient.[facility] the event this information is protected by the Federal Confidentiality of Alcohol and Drug Abuse Patient Records regulations: The Federal rules restrict any use of the information to criminally investigate or prosecute any alcohol or drug abuse patient.[facility] the event this information is protected by the Federal Confidentiality of Alcohol and Drug Abuse Patient Records regulations: The Federal rules restrict any use of the information to criminally investigate or prosecute any alcohol or drug abuse patient.[facility] the event this information is protected by the Federal Confidentiality of Alcohol and Drug Abuse Patient Records regulations: The Federal rules restrict any use of the information to criminally investigate or prosecute any alcohol or drug abuse patient.[facility] the event this information is protected by the Federal Confidentiality of Alcohol and Drug Abuse Patient Records regulations: The Federal rules restrict any use of the information to criminally investigate or prosecute any alcohol or drug abuse patient.[facility] the event this information is protected by the Federal Confidentiality of Alcohol and Drug Abuse Patient Records regulations: The Federal rules restrict any use of the information to criminally investigate or prosecute any alcohol or drug abuse patient.[facility] the event this information is protected by the Federal Confidentiality of Alcohol and Drug Abuse Patient Records regulations: The Federal rules restrict any use of the information to criminally investigate or prosecute any alcohol or drug abuse patient.[facility] the event this information is protected by the Federal Confidentiality of Alcohol and Drug Abuse Patient Records regulations: The Federal rules restrict any use of the information to criminally investigate or prosecute any alcohol or drug abuse patient.[facility] HospitalIn the event this information is protected by the Federal Confidentiality of Alcohol and Drug Abuse Patient Records regulations: The Federal rules restrict any use of the information to criminally investigate or prosecute any alcohol or drug abuse patient.[facility] HospitalIn the event this information is protected by the Federal Confidentiality of Alcohol and Drug Abuse Patient Records regulations: The Federal rules restrict any use of the information to criminally investigate or prosecute any alcohol or drug abuse patient.[facility] HospitalIn the event this information is protected by the Federal Confidentiality of Alcohol and Drug Abuse Patient Records regulations: The Federal rules restrict any use of the information to criminally investigate or prosecute any alcohol or drug abuse patient.[facility] HospitalIn the event this information is protected by the Federal Confidentiality of Alcohol and Drug Abuse Patient Records regulations: The Federal rules restrict any use of the information to criminally investigate or prosecute any alcohol or drug abuse patient.[facility] HospitalIn the event this information is protected by the Federal Confidentiality of Alcohol and Drug Abuse Patient Records regulations: The Federal rules restrict any use of the information to criminally investigate or prosecute any alcohol or drug abuse patient.[facility] HospitalIn the event this information is protected by the Federal Confidentiality of Alcohol and Drug Abuse Patient Records regulations: The Federal rules restrict any use of the information to criminally investigate or prosecute any alcohol or drug abuse patient.[facility] HospitalIn the event this information is protected by the Federal Confidentiality of Alcohol and Drug Abuse Patient Records regulations: The Federal rules restrict any use of the information to criminally investigate or prosecute any alcohol or drug abuse patient.[facility] HospitalIn the event this information is protected by the Federal Confidentiality of Alcohol and Drug Abuse Patient Records regulations: The Federal rules restrict any use of the information to criminally investigate or prosecute any alcohol or drug abuse patient.[facility] HospitalIn the event this information is protected by the Federal Confidentiality of Alcohol and Drug Abuse Patient Records regulations: The Federal rules restrict any use of the information to criminally investigate or prosecute any alcohol or drug abuse patient.[facility] HospitalIn the event this information is protected by the Federal Confidentiality of Alcohol and Drug Abuse Patient Records regulations: The Federal rules restrict any use of the information to criminally investigate or prosecute any alcohol or drug abuse patient.[facility] HospitalIn the event this information is protected by the Federal Confidentiality of Alcohol and Drug Abuse Patient Records regulations: The Federal rules restrict any use of the information to criminally investigate or prosecute any alcohol or drug abuse patient.[facility] HospitalIn the event this information is protected by the Federal Confidentiality of Alcohol and Drug Abuse Patient Records regulations: The Federal rules restrict any use of the information to criminally investigate or prosecute any alcohol or drug abuse patient.[facility] HospitalIn the event this information is protected by the Federal Confidentiality of Alcohol and Drug Abuse Patient Records regulations: The Federal rules restrict any use of the information to criminally investigate or prosecute any alcohol or drug abuse patient.[facility] HospitalIn the event this information is protected by the Federal Confidentiality of Alcohol and Drug Abuse Patient Records regulations: The Federal rules restrict any use of the information to criminally investigate or prosecute any alcohol or drug abuse patient.[facility] HospitalIn the event this information is protected by the Federal Confidentiality of Alcohol and Drug Abuse Patient Records regulations: The Federal rules restrict any use of the information to criminally investigate or prosecute any alcohol or drug abuse patient.[facility] HospitalIn the event this information is protected by the Federal Confidentiality of Alcohol and Drug Abuse Patient Records regulations: The Federal rules restrict any use of the information to criminally investigate or prosecute any alcohol or drug abuse patient.[facility] HospitalIn the event this information is protected by the Federal Confidentiality of Alcohol and Drug Abuse Patient Records regulations: The Federal rules restrict any use of the information to criminally investigate or prosecute any alcohol or drug abuse patient.[facility] HospitalIn the event this information is protected by the Federal Confidentiality of Alcohol and Drug Abuse Patient Records regulations: The Federal rules restrict any use of the information to criminally investigate or prosecute any alcohol or drug abuse patient.[facility] HospitalIn the event this information is protected by the Federal Confidentiality of Alcohol and Drug Abuse Patient Records regulations: The Federal rules restrict any use of the information to criminally investigate or prosecute any alcohol or drug abuse patient.[facility] HospitalIn the event this information is protected by the Federal Confidentiality of Alcohol and Drug Abuse Patient Records regulations: The Federal rules restrict any use of the information to criminally investigate or prosecute any alcohol or drug abuse patient.[facility] HospitalIn the event this information is protected by the Federal Confidentiality of Alcohol and Drug Abuse Patient Records regulations: The Federal rules restrict any use of the information to criminally investigate or prosecute any alcohol or drug abuse patient.[facility] HospitalIn the event this information is protected by the Federal Confidentiality of Alcohol and Drug Abuse Patient Records regulations: The Federal rules restrict any use of the information to criminally investigate or prosecute any alcohol or drug abuse patient.[facility] HospitalIn the event this information is protected by the Federal Confidentiality of Alcohol and Drug Abuse Patient Records regulations: The Federal rules restrict any use of the information to criminally investigate or prosecute any alcohol or drug abuse patient.[facility] HospitalIn the event this information is protected by the Federal Confidentiality of Alcohol and Drug Abuse Patient Records regulations: The Federal rules restrict any use of the information to criminally investigate or prosecute any alcohol or drug abuse patient.[facility] HospitalIn the event this information is protected by the Federal Confidentiality of Alcohol and Drug Abuse Patient Records regulations: The Federal rules restrict any use of the information to criminally investigate or prosecute any alcohol or drug abuse patient.[facility] HospitalIn the event this information is protected by the Federal Confidentiality of Alcohol and Drug Abuse Patient Records regulations: The Federal rules restrict any use of the information to criminally investigate or prosecute any alcohol or drug abuse patient.[facility] the event this information is protected by the Federal Confidentiality of Alcohol and Drug Abuse Patient Records regulations: The Federal rules restrict any use of the information to criminally investigate or prosecute any alcohol or drug abuse patient.[facility] HospitalIn the event this information is protected by the Federal Confidentiality of Alcohol and Drug Abuse Patient Records regulations: The Federal rules restrict any use of the information to criminally investigate or prosecute any alcohol or drug abuse patient.[facility] HospitalIn the event this information is protected [...] or prosecute any alcohol or drug abuse patient.[facility] HospitalIn the event this information is protected by the Federal Confidentiality of Alcohol and Drug Abuse Patient Records regulations: The Federal rules restrict any use of the information to criminally investigate or prosecute any alcohol or drug abuse patient.[facility] HospitalIn the event this information is protected by the Federal Confidentiality of Alcohol and Drug Abuse Patient Records regulations: The Federal rules restrict any use of the information to criminally investigate or prosecute any alcohol or drug abuse patient.[facility] HospitalIn the event this information is protected by the Federal Confidentiality of Alcohol and Drug Abuse Patient Records regulations: The Federal rules restrict any use of the information to criminally investigate or prosecute any alcohol or drug abuse patient.[facility] HospitalIn the event this information is protected by the Federal Confidentiality of Alcohol and Drug Abuse Patient Records regulations: The Federal rules restrict any use of the information to criminally investigate or prosecute any alcohol or drug abuse patient.[facility] HospitalIn the event this information is protected by the Federal Confidentiality of Alcohol and Drug Abuse Patient Records regulations: The Federal rules restrict any use of the information to criminally investigate or prosecute any alcohol or drug abuse patient.[facility] HospitalIn the event this information is protected by the Federal Confidentiality of Alcohol and Drug Abuse Patient Records regulations: The Federal rules restrict any use of the information to criminally investigate or prosecute any alcohol or drug abuse patient.[facility] HospitalIn the event this information is protected by the Federal Confidentiality of Alcohol and Drug Abuse Patient Records regulations: The Federal rules restrict any use of the information to criminally investigate or prosecute any alcohol or drug abuse patient.[facility] HospitalIn the event this information is protected by the Federal Confidentiality of Alcohol and Drug Abuse Patient Records regulations: The Federal rules restrict any use of the information to criminally investigate or prosecute any alcohol or drug abuse patient.[facility] Reason for Visit (unrecogniz ed section [...] MDM 60-74 MINUTES Jeff Simeon L, [address] [place] [address] Referral ID Status Reason Start Date Expiration Date V isits Requested Visits Authorized [id number] Closed PCP Requested Referral 03/21/2022 03/21/2023 1 1 Reason Comments Consult Reason Comments Surgical Follow Up Lap carter post op Specialty Diagnoses / Procedures Referred By Contac t Referred To Contact General Surgery / GENERAL SURGERY Diagnoses post op lap carter, wanted sooner appt Procedures OFFICE/OUTPATIENT ESTABLISHED HIGH MDM 40-54 MIN EST DDI PATIENT Nguyen Campos PA-C [address] [place] [address] Nguyen Campos PA-C [address] [place] [address] Referral ID Status Reason Start Date Expiration Date Visits Re quested Visits Authorized [id number] Closed 04/10/2022 02/11/2023 1 1 Reason Comments Post Op Follow Up 04/10/22 LAP CARTER Reason Onset Date Comments Transition Of Care 03/15/2023 TCM Initial O utreach: [facility] DC 03/11/23, RLQ abdominal pain Reason Comments Hospital F/U Colon cancer Reason Comments Lab Orders Reason Comments Ear Problem Ear congestion x 1 w [place] Reason Onset Date Comments Refill Request 07/18/2023 [...] Care Teams (unrecognized sec tion and content) Molder Floor Relationship Specialty Start Date End Date eJff Simeon DO [address] [place] [address] PCP - General Family Practice 09/28/15 Molder Floor Relationship Specialty Start Date End Date Jeff Simeon DO [address] [place] [address] PCP - General Family Practice 09/28/15 Molder Floor Relationship Specialty Start Date End Date Jeff Simeon DO [address] [place] [address] PCP - General Family Practice 09/28/15 Molder Floor Relationship Specialty Start Date End Date Jeff Simeon DO [address] [place] [address] PCP - General Family Practice 09/28/15 Molder Floor Relationship Specialty Start Date End Date Jeff Simeon, DO [address] [place] [address] PCP - General Family Practice 09/28/15 Molder Floor Relationship Specialty Start Date End Date Jeff Simeon, DO [address] [place] [address] PCP - General Family Practice 09/28/15 Molder Floor Relationship Specialty Start Date End Date Jeff Simeon, DO [address] [place] [address] PCP - General Family Practice 09/28/15 Molder Floor Relationship Specialty Start Date End Date Jeff Simeon, DO [address] [place] [address] PCP - General Family Practice 09/28/15 Molder Floor Relationship Specialty Start Date End Date Jeff Simeon, DO [address] [place] [address] PCP - General Family Medicine 09/28/15 Molder Floor Relationship Specialty Start Date End Date Jeff Simeon, DO [address] [place] [address] PCP - General Family Medicine 09/28/15 Molder Floor Relationship Specialty Start Date End Date Jeff Simeon, DO [address] [place] [address] PCP - General Family Medicine 09/28/15 Molder Floor Relationship Specialty Start Date End Date Jeff Simeon, DO [address] [place] [address] PCP - General Family Medicine 09/28/15 Molder Floor Relationship Specialty Start Date End Date Jeff Simeon, DO [address] [place] [address] PCP - General Family Medicine 09/28/15 Molder Floor Relationship Specialty Start Date End Date Jeff Simeon, DO [address] [place] [address] PCP - General Family Medicine 09/28/15 Molder Floor Relationship Specialty Start Date End Date Jeff Simeon, DO [address] [place] [address] PCP - General Family Medicine 09/28/15 Molder Floor Relationship Specialty Start Date End Date Jeff Simeon, DO [address] [place] [address] PCP - General Family Medicine 09/28/15 Molder Floor Relationship Specialty Start Date End Date Jeff Simeon DO [address] [place] [address] PCP - General Family Medicine 09/28/15 Molder Floor Relationship Specialty Start Date End Date Jeff Simeon DO [address] [place] [address] PCP - General Family Medicine 09/28/15 Team Status: Active Member Role Status Dates Dr. Jeff Simeon DO Family Provider Active Dr. Jeff Simeon DO Primary Care Provider Active Team Status: Inactive Member Role Status Dates Dr. Jeff Simeon DO Primary Care Pr ovider, Attending Provider, Referring Provider Active Molder Floor Relationship Specialty Start Date End Date Jeff Simeon DO [address] [place] [address] PCP - General Family Medicine 09/28/15 Molder Floor Relationship Specialty Start Date End Date Jeff Simeon DO [address] [place] [address] PCP - General Family Medicine 09/28/15 Molder Floor Relationship Specialty Start Date End Date Jeff Simeon DO [address] [place] [address] PCP - General Family Medicine 09/28/15 Molder Floor Relationship Specialty Start Date End Date Jeff Simeon DO [address] [place] [address] PCP - General Family Medicine 09/28/15 Molder Floor Relationship Specialty Start Date End Date Jeff Simeon DO [address] [place] [address] PCP - General Family Medicine 09/28/15 Molder Floor Relationship Specialty Start Date End Date Jeff Simeon DO [address] [place] [address] PCP - General Family Medicine 09/28/15 Molder Floor Relationship Specialty Start Date End Date Jeff Simeon DO [address] [place] [address] PCP - General Family Medicine 09/28/15 Molder Floor Relationship Specialty Start Date End Date Jeff Simeon DO [address] [place] [address] PCP - General Family Medicine 09/28/15 Molder Floor Relationship Specialty Start Date End Date Jeff Siemon DO [address] [place] [address] PCP - General Family Medicine 09/28/15 Team [...] Dr. Casey Gupta MD Other Provider Active Rtuh Ann Lynn PLANT ACCOUNTANT, PLANT ACCOUNTANT-C Other Provider Active Ramses REDDY Other Provider Active Dr. Jameson Snell MD Other Provider Active Nguyen Sloan PA, PA-C Active Team Status: Active Member Role Status Dates Dr. Jeff Simeon , DO Primary Care Provider Active Dr. Stas Arredondo , DO Emergency Provider Active Dr. Santosh aBllard MD Admit Provider, R eferring Provider, Other [...] MD Other Provider Active Ruth Ann Lynn PLANT ACCOUNTANT, PLANT ACCOUNTANT-C Other Provider Active Ramses REDDY Other Provider [...] , DO Other Provider Active Dr. Leno uSn , DO Other Provider Active Dr. Zuri Peterson MD Other Provider Active Dr. Francois Putnam MD Other Provider Active Dr. Canelo Fletcher MD Other Provider Active Dr. Mary Cotter MD Other Provider Active Dr. Casey Gupta MD Other Provider Active Ruth Ann Lynn PLANT ACCOUNTANT, PLANT ACCOUNTANT-C Other Provider Active Ramses Victoria PA Other [...] MD Other Provider Active Ruth Ann Lynn PLANT ACCOUNTANT, PLANT ACCOUNTANT-C Other Provider Active Ramses Victoria PA Other [...] MD Other Provider Active Ruth Ann Lynn PLANT ACCOUNTANT, PLANT ACCOUNTANT-C Other Provider Active Ramses REDDY Other Provider [...] Rafia Rousseau MD Other Provider Active Dr. aRfia Marroquin MD Other Provider Active Dr. Emma [...] MD Other Provider Active Ruth Ann Shane PLANT ACCOUNTANT, PLANT ACCOUNTANT-C Other Provider Active Ramses REDDY Other Provider [...] MD Other Provider Active Ruth Ann Lynn PLANT ACCOUNTANT, PLANT ACCOUNTANT-C Other Provider Active Ramses REDDY Other Provider Active Dr. Jameson Snell MD Other Provider Active Molder Floor Relationship Specialty Start Date End Date Jeff Simeon DO [address] [place], [place] [address] PCP - General Family Medicine 09/28/15 Tiffany Lang, ROBERT [address] [place] [address] Primary Care Infection Control Specialist 03/15/23 Molder Floor Relationship Specialty Start Date End Date Jeff Simeon DO [address] [place], [place] [address] PCP - General Family Medicine 09/28/15 Tiffany Lang, ROBERT [address] [place] [id number] Primary Care Infection Control Specialist 03/15/23 Molder Floor Relationship Specialty Start Date End Date Jeff Simeon DO [address] [facility] [address] PCP - General Family Medicine 09/28/15 Tiffany Lang, ROBERT [address] [place] [address] Primary Care Infection Control Specialist 03/15/23 Molder Floor Relationship Specialty Start Date End Date Jeff Simeon DO [address] [facility] [address] PCP - General Family Medicine 09/28/15 Tiffany Lang RN [address] [place] [id number] Primary Care Infection Control Specialist 03/15/23 Team Status: Inactive Member Role Status [...] Chavarria MD Attending Provider, Referring Provider Active Molder Floor Relationship Specialty Start Date End Date Jeff Simeon DO [address] [place] [address] PCP - General Family Medicine 09/28/15 Molder Floor Relationship Specialty Start Date End Date Jeff Simeon DO [address] [place] [address] PCP - General Family Medicine 09/28/15 Molder Floor Relationship Specialty Start Date End Date Jeff Simeon DO [address] [place] [address] PCP - General Family Medicine 09/28/15 Molder Floor Relationship Specialty Start Date End Date Jeff Simeon DO [address] [place] [address] PCP - General Family Medicine 09/28/15 Molder Floor Relationship Specialty Start Date End Date Jeff Simeon DO [address] [place] [address] PCP - General Family Medicine 09/28/15 Molder Floor Relationship Specialty Start Date End Date Jeff Simeon DO [address] [place] [address] PCP - General Family Medicine 09/28/15 Molder Floor Relationship Specialty Start Date End Date Jeff Simeon DO [address] [place] [address] PCP - General Family Medicine 09/28/15 Molder Floor Relationship Specialty Start Date End Date Jeff Simeon DO [address] [place] [address] PCP - General Family Medicine 09/28/15 Molder Floor Relationship Specialty Start Date End Date Jeff Simeon DO [address] [place] [address] PCP - General Family Medicine 09/28/15 Molder Floor Relationship Specialty Start Date End Date Jeff Simeon DO [address] [place] [address] PCP - General Family Medicine 09/28/15 Molder Floor Relationship Specialty Start Date End Date Jeff Simeon DO [address] [place] [address] PCP - General Family Medicine 09/28/15 Molder Floor Relationship Specialty Start Date End Date Jeff Simeon DO [address] [place] [address] PCP - General Family Medicine 09/28/15 Molder Floor Relationship Specialty Start Date End Date Jeff Simeon DO [address] [place] [address] PCP - General Family Medicine 09/28/15 Molder Floor Relationship Specialty Start Date End Date Jeff Simeon DO [address] [place] [address] PCP - General Family Medicine 09/28/15 Molder Floor Relationship Specialty Start Date End Date Jeff Simeon DO [address] [place] [address] PCP - General Family Medicine 09/28/15 Molder Floor Relationship Specialty Start Date End Date Jeff Simeon DO [address] [place] [address] PCP - General Family Medicine 09/28/15 Molder Floor Relationship Specialty Start Date End Date Jeff Simeon DO [address] [place] [address] PCP - General Family Medicine 09/28/15 Molder Floor Relationship Specialty Start Date End Date Jeff Simeon DO [address] [place] [address] PCP - General Family Medicine 09/28/15 Molder Floor Relationship Specialty Start Date End Date Jeff Simeon DO [address] [place] [address] PCP - General Family Medicine 09/28/15 Jahaira Campo, SERVICE CONSULTANT.SHUTDOWN COORDINATOR [address] [place] [address] Cv Rn Family Medicine 01/20/24 Karson Woodward, SERVICE CONSULTANT.SHUTDOWN COORDINATOR [address] [place] [address] Cv Rn Family Medicine 01/20/24 Molder Floor Relationship Specialty Start Date End Date Jeff Simeon DO [address] [place] [address] PCP - General Family Medicine 09/28/15 Jahaira Campo, SERVICE CONSULTANT.SHUTDOWN COORDINATOR [address] [place] [address] Cv Rn Family Medicine 01/20/24 Karson Woodward, SERVICE CONSULTANT.SHUTDOWN COORDINATOR [address] [place] [address] [facility] Molder Floor Relationship Specialty Start Date End Date Jeff Simeon DO [address] [place] [address] PCP - General Family Medicine 09/28/15 Jahaira Campo, SERVICE CONSULTANT.SHUTDOWN COORDINATOR [address] [place] [address] [facility]24 Karson Woodward, SERVICE CONSULTANT.SHUTDOWN COORDINATOR [address] [place] [address] [facility] 01/20/24 Molder Floor Relationship Specialty Start Date End Date Jeff Simeon DO [address] [place] [address] PCP - General Family Medicine 09/28/15 Jahaira Campo, SERVICE CONSULTANT.SHUTDOWN COORDINATOR [address] [place] [address] [facility] 01/20/24 Karson Woodward, SERVICE CONSULTANT.SHUTDOWN COORDINATOR [address] [place] [address] [facility] 01/20/24 Team Status: Active Member Role Status [...] 24, 2024 End: January 24, 2024 Dr. Mcao Singh MD Attending Provider Active S tart: [...] May 06, 2024 End: May 06, 2024 Molder Floor Relationship Specialty Start Date End Date Jeff Simeon DO [address] [place], [place] [address] PCP - General Family Medicine 09/28/15 Karson Woodward APRN.CNP [address] [place], [place] [id number] Cv Rn Family Medicine 01/20/24 Molder Floor Relationship Specialty Start Date End Date Jeff Simeon DO [address] [place] [address] PCP - General Family Medicine 09/28/15 Karson Woodward, SERVICE CONSULTANT.SHUTDOWN COORDINATOR [address] [place] [address] [facility] Molder Floor Relationship Specialty Start Date End Date Jeff Simeon DO [address] [place] [address] PCP - General Family Medicine 09/28/15 CrissyKarson, SERVICE CONSULTANT.SHUTDOWN COORDINATOR [address] [place] [address] [facility] Molder Floor Relationship Specialty Start Date End Date Jeff Simeon DO [address] [place] [address] PCP - General Family Medicine 09/28/15 CrissyKarson, SERVICE CONSULTANT.SHUTDOWN COORDINATOR [address] [place] [address] [facility] Molder Floor Relationship Specialty Start Date End Date Jeff Simeon DO [address] [place] [address] PCP - General Family Medicine 09/28/15 Karson Woodward, SERVICE CONSULTANT.SHUTDOWN COORDINATOR [address] [place] [address] [facility] 01/20/24 Molder Floor Relationship Specialty Start Date End Date Jeff Simeon DO [address] [place], [place] [id number] PCP - General Family Medicine 09/28/15 Karson Woodward, SERVICE CONSULTANT.SHUTDOWN COORDINATOR [address] [place], [place] [id number] Cv Rn Family Medicine 01/20/24 Jennyfer Webb, SERVICE CONSULTANT.SHUTDOWN COORDINATOR [address] [place], [place] [id number] [facility] Team Status: Active Member Role/Relationship Status Dates Dr. Jeff Simeon DO Primary Care Provider Active Team Status: Active Member Role/Relationship Status Dates Dr. Jeff Simeon DO Primary Care Provider Active Start: October 16, 2024 Dr. Mcao Singh MD Attending Provider Active S tart: [...] 2024 End: November 04, 2024 Dr. Jarrell Crystal DO Attending physician Active Start: November 04, [...] BE BASED ON THE PRIMARY CLINICAL RECORDS. [facility] [employer] [facility] provides no warranty or guarantee of the accuracy or completeness of information in this document.
--- OUTSIDE RECORDS SUMMARY | 2025-01-15 20:13 | XMS RPT_ITS | CCD ---
Author Organization [facility] Care Team Providers Care Sounding Device Operator Name Role Phone TIFFANY RONQUILLO Admitting [...] Other Provider Dr. Casey Gupta Other Provider 1([facility])[phone] Shane ATTORNEY, ATTORNEY-C Ruth Ann Other Provider Ramses Gavin Other Provider Unavailable Dr. Jameson Snell Other Provider 1([facility])[phone] Santosh Ballard Referring Provider Dr. [...] Other Provider Dr. King Carroll Other Provider 1([facility])[phone] Dr. Rafia Rousseau Other Provider Dr. [...] Provider Dr. Casey Gupta Other Provider Shane ATTORNEY, ATTORNEY-C Ruth Ann Other Provider Ramses Gavin Other Provider Unavailable Dr. Jameson Snell Other Provider Dr. Santosh Ballard Referring Provider Dr. Jameson Snell Attending Provider Luther REDDY, PA-C Nguyen Attending Provider Dr. Richard Mckenzie Attending Provider Dr. Jeff Simeon Referring Provider Dr. Maco Singh Attending Provider Jeff Simeon DO Primary Care Provider Alber ENERGY TECHNICIAN.CORE FINISHER, Jahaira Palma Unavailable Crissy ENERGY TECHNICIAN.CORE FINISHER, Karson Unavailable Blanco BERGER, Dr. Aguilar Primary Care Provider Adriana Brito Attending Provider Adriana Brito Referring Provider Blanco BERGER, Dr. Aguilar Referring Provider Samantha KEYES, Dr. Dewey Attending Provider Samantha KEYES, Dr. Dewey Referring Provider Bonilla BERGER, Dr. Vieyra Attending Provider Jon ENERGY TECHNICIAN.CORE FINISHER, Jennyfer Major Unavailable Blanco BERGER, Dr. Aguilar Primary Care Provider [phone] Samantha KEYES, Dr. Dewey Attending Provider Samantha KEYES, Dr. Dewey Referring Provider Blanco BERGER, Dr. Aguilar Referring Provider Blanco BERGER, Dr. Aguilar Primary Care Physician Samantha KEYES, Dr. Dewey Attending Physician Bonilla BERGER, Dr. Vieyra Attending Physician [phone] Maco Singh Attending Unavailable Simeon, Jeff Primary [...] sources) diphenhydrAMINE Drug Allergy 05-17-19 16 Swelling [facility] Penicillins (antibiotic) (2 sources) Penicillins Drug Allergy 05-17-19 16 Shortness of Breath [facility] (20 sources) diphenhydrAMINE; Translations: [DIPHENHYDRAMINE HCL] Drug Allergy 05-17-19 16 Swelling [facility] Repository (20 sources) Hmg-Coa Reductase Inhibitors (Statins); Translations: [DYFNRBC-OUU-DLK REDUCTASE INHIBITORS] Propensity to adverse reactions to drug (disorder) 09-28-19 16 Contraindicati on-Medical Surgical [facility] (20 sources) Penicillins; Translations: [PENICILLINS] Propensity to adverse reactions to drug (disorder) 05-17-19 16 Shortness of Breath [facility] (9 sources) diphenhydrAMINE Drug Allergy 12-22-19 21 PT UNSURE OF REACTION [facility] (7 sources) [place] fruit; Translations: [CITRUS AND DERIVATIVES] Propensity to adverse reactions 03-07-19 Other [facility] Comment on above: PT STATES EFFECTS LI JOHN (7 sources) Beef Containing Products; Translations: [BEEF CONTAINING PRODUCTS] Propensity to adverse reactions 03-07-19 Other [facility] Comment on above: PT STATES SHUTS DOWN ORGANS; red meat (7 sources) Food Allergies: Uncoded; Translations: [Food Allergies: Uncoded] Propensity to adverse reactions 03-07-19 Vomiting [facility] Comment on above: VINEGAR (4 sources) Acetaminophen; Translations: [ACETAMINOPHEN] Drug Allergy 10-16-19 Shortness of breath [facility] (4 sources) Aspirin; Translations: [ASPIRIN] Drug Allergy 10-16-19 Shortness of breath [facility] (4 sources) Glucocorticoid Receptor Agonists; Translations: [CORTICOSTEROIDS (GLUCOCORTICOIDS)] Allergy to substance 10-16-19 Shortness of breath [facility] (1 source) Acetaminophen Drug Allergy 12-10-19 [facility] (1 source) Aspirin Drug Allergy 12-10-19 [facility] (1 source) Corticosteroids Drug allergy (disorder) 12-10-19 [facility] (1 source) diphenhydrAMINE Drug Allergy 12-10-19 [facility] (1 source) Beef Containing Products Drug allergy (disorder) 12-10-19 [facility] (1 source) [place] And Derivatives Drug allergy (disorder) 12-10-19 [facility] Repository Medications Current Medications [...] Test Name Value Interpretation Reference Range Facility [facility] 12-23-2024 [facility] Nurse Visit (FAMPWS) ----- NGUYEN QUEEN ([id number]) 1945 F Date Time Provider Department 12/23/24 8:00 AM MT NURSE [facility] During your visit today, we recorded the [...] PENICILLINS 05/17/2015 12 - Shortness of Breath UAWAQZK-YVU-UHU REDUCTASE INHIBIT*09/28/2015 15 - Contraindication-Medical Lester* Comments: [...] (more content not included)... Normal [facility] CNOVon 12-19-2024 CNOV Office Visit (PODIWS ) ----- NGUYEN QUEEN ([id number]) 1945 F Date Time Provider Department 12/19/24 [...] (or decreased sensation in your feet) a flea market seller should always cut your toenails. Be Careful [...] Go to your health care provider or flea market seller to treat these conditions. Farrukh Dye 12/21/2024 [...] (more content not included)... Normal [facility] MRSA/SAID NASAL SCREENon MRSA+SAID SCRN Negative Normal [facility] Comment on above: Performed By: #### L 3100.2300, L500.4050, L503.6030, L504.2610, L900.0098, L100.0100 #### [facility] [address] [place], [address] Surgery Visit Reporton 12-09 Surgery Visit Report [facility] [address] [place] [address] OFFICE VISIT Date of Service: 12/09/24 MR#: [id number] Acct: [id number] Name: NGUYEN QUEEN Rep #: [id number] : 1945 Provider: Dr. 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 Normal [facility] 11-21-2024 [facility] Office Visit ([facility] ) ----- NGUYEN QUEEN ([id number]) 1945 F Date Time Provider Department 11/21/24 9:40 AM [facility] During your visit today, we recorded the [...] care of with her diabetes, hasn't seen Type Inspector recently. Vitamin b12 deficiency, last level in the 400s. Hasn't had labs rechecked. But does feel less fatigue than previously Will have follow up next with Dr. Singh for Oncologist on 10/23 and labs prior Next follow up in the next few months with Asset Recovery Specialist Dr. Crystal as well. She is eating [...] WHEN PFRMD 08/25/2003 adenomatous polyp and diverticulosis. [facility] COLONOSCOPY FLX DX W/COLLJ SPEC WHEN PFRMD 09/28/2006 No polyps found. 5 yr recall. Guevara[facility] COLONOSCOPY FLX DX W/COLLJ SPEC WHEN PFRMD 02/26/2018 Colonoscopy ESOPHAGOGASTRODUODENOSCOP Y TRANSORAL DIAGNOSTIC 08/31/2003 Unremarkable, negative biopsies. [facility] ESOPHAGOGASTRODUODENOSCOP Y TRANSORAL DIAGNOSTIC 02/26/2018 EGD LAPAROSCOPIC CHOLECYSTECTOMY 04/05/2022 REMV CATARACT EXTRACAP,INSERT LENS Bilateral TONSILLECTOMY HX SOCIAL HISTORY[1] FAMILY HISTORY Adopted: Yes Allergies: ALLERGIES Allergen Reactions Benadryl [Diphenhyd* Swelling Penicillins Shortness of Breath Exxgshy-Sew-Eja Red* Contraindication-Medical Surgical History of liver failure [...] a week. (more content not included)... [facility] NGUY[facility] QUEEN ([id number]) 1945 F Date Time Provider Department 11/21/24 JEFF SIMEON During your visit today, we recorded the following information about you: Astrid Larios, RN 11/21/2024 3:36 PM Signed Fátima Lopez calling from [facility]. States patient entered their office today and [...] of this time. Please call Fátima back [facility] on Sunday with an update, if possible. [phone] Jeff Simeon DO 11/21/2024 4:58 PM Signed No, I didn't say anything ruptured. I said if she is having umbilical soreness she needs to see her surgeon for opinion regarding possibility of umbilical hernia, I haven't sent a referral yet DO Ramiro Carreon Linda M, LPN 11/24/2024 10:28 AM Signed Called [facility]. Gave information provided. Nurse voices understanding.. Allergies As of Date: 11/21/2024 Noted Allergy Reaction BENADRYL (DIPHENHYDRAMINE HCL) 05/17/2015 7 - Swelling PENICILLINS 05/17/2015 12 - Shortness of Breath LCFDRAJ-XLO-KQG REDUCTASE INHIBIT*09/28/2015 15 - Contraindication-Medical Lester* Comments: History of liver failure Date Reviewed: 11/21/2024 Reviewed by: Pebbles Molina LPN - Fully Assessed Reason for Visit: Patient Question [1187] Prescriptions as of 11/24/2024 - cholestyramine light [...] (more content not included)... Normal [facility] 25(OH)D3 [facility] 2024 25-hydroxyvitamin D3 [Mass/Vol] 16.3 ng/mL Low 31.0-80.0 [facility] Comment on above: Order Comment: Speci men Type: BLOOD SPECIMENOrdering Facility: [facility] Address: [address] [place] [id number] Result Comment: Clas sification of 25 [place] Vitamin D status: Deficiency/Insufficiency: < or = 30 ng/ml. Sufficiency/Optimal Levels: 31-80 ng/mL Toxicity: > 100 ng/mL. Test performed by chemiluminescent immunoassay. Performed By: #### 1 989-3 ####[facility] LABCLIA [id number] [facility]ENTERJ[facility] [id number] [address] [place] CBC W Auto Differential pane l (Bld)on 11-14-2024 Basophils (Bld) [#/Vol] 0.05 10*3/uL Normal <0.11 [facility] Comment on above: Order Comment: Speci men Type: BLOOD SPECIMENOrdering Facility: [facility] Address: [address] [place] [address] Performed By: #### 5 7021-8 ####[facility] [id number] [place] [address] [place] Basophils/100 WBC (Bld) 0.7 % Normal [facility] Comment on above: Order Comment: Speci men Type: BLOOD SPECIMENOrdering Facility: [facility] Address: [address] [place] [address] Performed By: #### 5 7021-8 ####[facility] [id number] [place] [address] [place] Differential cell count method Nom (Bld) Auto Normal [facility] Comment on above: Order Comment: Speci men Type: BLOOD SPECIMENOrdering Facility: [facility] Address: [address] [place] [address] Performed By: #### 5 7021-8 ####[facility] [id number] [place] [address] [place] Eosinophils (Bld) [#/Vol] 0.30 10*3/uL Normal <0.46 [facility] Comment on above: Order Comment: Speci men Type: BLOOD SPECIMENOrdering Facility: [facility] Address: [address] [place] [address] Performed By: #### 5 7021-8 ####[facility] [id number] [place] [address] [place] Eosinophils/100 WBC (Bld) 4.4 % Normal [facility] Comment on above: Order Comment: Speci men Type: BLOOD SPECIMENOrdering Facility: [facility] Address: [address] [place] [address] Performed By: #### 5 7021-8 ####[facility] [id number] [place] [address] [place] Erythrocyte distribution width (RBC) [Ratio] 14.1 % Normal 11.5-15.0 [facility] Comment on above: Order Comment: Speci men Type: BLOOD SPECIMENOrdering Facility: [facility] Address: [address] [place] [address] Performed By: #### 5 7021-8 ####[facility] [id number] [place] [address] [place] Hematocrit (Bld) [Volume fraction] 37.2 % Normal 36.0-46.0 [facility] Comment on above: Order Comment: Speci men Type: BLOOD SPECIMENOrdering Facility: [facility] Address: [address] [place] [address] Performed By: #### 5 7021-8 ####[facility] [id number] [place] [address] [place] Hemoglobin (Bld) [Mass/Vol] 11.9 g/dL Normal 11.5-15.5 [facility] Comment on above: Order Comment: Speci men Type: BLOOD SPECIMENOrdering Facility: [facility] Address: [address] [place] [address] Performed By: #### 5 7021-8 ####[facility] [id number] [place] [address] [place] Immature granulocytes (Bld) [#/Vol] 10*3/uL Normal <0.10 [facility] Comment on above: Order Comment: Speci men Type: BLOOD SPECIMENOrdering Facility: [facility] Address: [address] [place] [address] Performed By: #### 5 7021-8 ####[facility] RICKIEWOODLAWNNCLIA [id number] [address] Immature granulocytes/100 WBC (Bld) 0.3 % Normal [facility] Comment on above: Order Comment: Speci men Type: BLOOD SPECIMENOrdering Facility: [facility] Address: [address] [place] [address] Performed By: #### 5 7021-8 ####[facility] HOS[facility]ITALNCA [id number] [place] [address] [place] Lymphocytes (Bld) [#/Vol] 1.75 10*3/uL Normal 1.00-4.0 0 [facility] Comment on above: Order Comment: Speci men Type: BLOOD SPECIMENOrdering Facility: [facility] Address: [address] [place] [address] Performed By: #### 5 7021-8 ####[facility] H[facility]ITALNCLIA [id number] [address] STATES [facility] Lymphocytes/100 WBC (Bld) 25.7 % Normal [facility] Comment on above: Order Comment: Speci men Type: BLOOD SPECIMENOrdering Facility: [facility] Address: [address] [place] [address] Performed By: #### 5 7021-8 ####[facility]OS[facility]ITALL[facility] [id number] [place] [address] [place] MCH (RBC) [Entitic mass] 24.6 pg Low 26.0-34.0 [facility] Comment on above: Order Comment: Speci men Type: BLOOD SPECIMENOrdering Facility: [facility] Address: [address] [place] [address] Performed By: #### 5 7021-8 ####[facility] [id number] [place] [address] [place] MCHC (RBC) [Mass/Vol] 32.0 g/dL Normal 30.5-36.0 [facility] Comment on above: Order Comment: Speci men Type: BLOOD SPECIMENOrdering Facility: [facility] Address: [address] [place] [address] Performed By: #### 5 7021-8 ####[facility] [id number] [place] [address] [place] MCV (RBC) [Entitic vol] 77.0 fL Low 80.0-100.0 C [facility] Comment on above: Order Comment: Speci men Type: BLOOD SPECIMENOrdering Facility: [facility] Address: [address] [place] [address] Performed By: #### 5 7021-8 ####[facility] [id number] [place] [address] [place] Monocytes (Bld) [#/Vol] 0.65 10*3/uL Normal <0.87 [facility] Comment on above: Order Comment: Speci men Type: BLOOD SPECIMENOrdering Facility: [facility] Address: [address] [place] [address] Performed By: #### 5 7021-8 ####[facility] [id number] [place] [address] [place] Monocytes/100 WBC (Bld) 9.5 % Normal C [facility] Comment on above: Order Comment: Speci men Type: BLOOD SPECIMENOrdering Facility: [facility] Address: [address] [place] [address] Performed By: #### 5 7021-8 ####[facility] H[facility]ITALNCLI [id number] [place] [address] [place] Neutrophils (Bld) [#/Vol] 4.05 10*3/uL Normal 1.45-7.5 0 [facility] Comment on above: Order Comment: Speci men Type: BLOOD SPECIMENOrdering Facility: [facility] Address: [address] [place] [address] Performed By: #### 5 7021-8 ####[facility] [id number] [place] [address] [place] Neutrophils/100 WBC (Bld) 59.4 % Normal [facility] Comment on above: Order Comment: Speci men Type: BLOOD SPECIMENOrdering Facility: [facility] Address: [address] [place] [address] Performed By: #### 5 7021-8 ####[facility] [id number] [place] [address] [place] Nucleated RBC (Bld) [#/Vol] 10*3/uL Normal <0.01 [facility] Comment on above: Order Comment: Speci men Type: BLOOD SPECIMENOrdering Facility: [facility] Address: [address] [place] [address] Performed By: #### 5 7021-8 ####[facility] [id number] [place] [address] [place] Nucleated RBC/100 WBC (Bld) [Ratio] 0.0 /100 WBC Normal [facility] Comment on above: Order Comment: Speci men Type: BLOOD SPECIMENOrdering Facility: [facility] Address: [address] [place] [address] Performed By: #### 5 7021-8 ####[facility] [id number] [place] [address] [place] Platelet mean volume (Bld) [Entitic vol] 9.6 fL Normal 9.0-12.7 [facility] Comment on above: Order Comment: Speci men Type: BLOOD SPECIMENOrdering Facility: [facility] Address: [address] [place] [address] Performed By: #### 5 7021-8 ####[facility] DEVONTENCJANELLA [id number] [place] [address] [place] Platelets (Bld) [#/Vol] 312 10*3/uL Normal 150-400 [facility] Comment on above: Order Comment: Speci men Type: BLOOD SPECIMENOrdering Facility: [facility] Address: [address] [place] [address] Performed By: #### 5 7021-8 ####[facility] JANKINCLIA [id number] [place] [address] [place] RBC (Bld) [#/Vol] 4.83 10*6/uL Normal 3.90-5.20 [facility] Comment on above: Order Comment: Speci men Type: BLOOD SPECIMENOrdering Facility: [facility] Address: [address] [place] [address] Performed By: #### 5 7021-8 ####[facility]ITAL[facility] [id number] [place] [address] [place] WBC (Bld) [#/Vol] 6.82 10*3/uL Normal 3.70-11.00 [facility] Comment on above: Order Comment: Speci men Type: BLOOD SPECIMENOrdering Facility: [facility] Address: [address] [place] [address] Performed By: #### 5 7021-8 ####[facility]ITALNCLIA [id number] [place] [address] [place] [facility] OF [place] Comprehensive metabolic 2000 panelon 11-14-2024 Albumin [Mass/Vol] 3.7 g/dL Low 3.9-4.9 [facility] Comment on above: Order Comment: Speci men Type: BLOOD SPECIMENOrdering Facility: [facility] Address: [address] [place] [address] Performed By: #### 2 4323-8 ####[facility] MILLTOWNCLIA [id number] [place] [address] [place] ALP [Catalytic activity/Vol] 95 U/L Normal 34-123 [facility] Comment on above: Order Comment: Speci men Type: BLOOD SPECIMENOrdering Facility: [facility] Address: [address] [place] [address] Performed By: #### 2 4323-8 ####[facility]ITALNCLIA [id number] [place] [address] [place] ALT [Catalytic activity/Vol] 9 U/L Normal 7-38 [facility] Comment on above: Order Comment: Speci men Type: BLOOD SPECIMENOrdering Facility: [facility] Address: [address] [place] [address] Performed By: #### 2 4323-8 ####[facility]OS[facility]ITALLIA [id number] [place] [address] [place] Anion gap [Moles/Vol] 12 mmol/L Normal 8-15 [facility] Comment on above: Order Comment: Speci men Type: BLOOD SPECIMENOrdering Facility: [facility] Address: [address] [place] [address] Performed By: #### 2 4323-8 ####[facility]ITALL[facility] [id number] [place] [address] [place] AST [Catalytic activity/Vol] 10 U/L Low 13-35 [facility] Comment on above: Order Comment: Speci men Type: BLOOD SPECIMENOrdering Facility: [facility] Address: [address] [place] [address] Performed By: #### 2 4323-8 ####[facility]ITALNCLIA [id number] [place] [address] [place] Bilirubin [Mass/Vol] 0.3 mg/dL Normal 0.2-1.3 [facility] Comment on above: Order Comment: Speci men Type: BLOOD SPECIMENOrdering Facility: [facility] Address: [address] [place] [address] Performed By: #### 2 4323-8 ####[facility] [id number] [place] [address] [place] Calcium [Mass/Vol] 9.0 mg/dL Normal 8.5-10.2 [facility] Comment on above: Order Comment: Speci men Type: BLOOD SPECIMENOrdering Facility: [facility] Address: [address] [place] [address] Performed By: #### 2 4323-8 ####[facility] [id number] [place] [address] [place] Chloride [Moles/Vol] 111 mmol/L High 98-107 [facility] Comment on above: Order Comment: Speci men Type: BLOOD SPECIMENOrdering Facility: [facility] Address: [address] [place] [address] Performed By: #### 2 4323-8 ####[facility] [id number] [place] [address] [place] CO2 [Moles/Vol] 19 mmol/L Low 22-30 [facility] Comment on above: Order Comment: Speci men Type: BLOOD SPECIMENOrdering Facility: [facility] Address: [address] [place] [address] Performed By: #### 2 4323-8 ####[facility] [id number] [place] [address] [place] Creatinine [Mass/Vol] 0.62 mg/dL Normal 0.58-0.96 [facility] Comment on above: Order Comment: Speci men Type: BLOOD SPECIMENOrdering Facility: [facility] Address: [address] [place] [address] Performed By: #### 2 4323-8 ####[facility]ITAL[facility]CL[facility] [id number] [place] [address] [place] eGFRcr SerPlBld CKD-EPI 2020 92 mL/min/1.73m??? Normal >=60 [facility] Comment on above: Order Comment: Marcelina plascencia Type: BLOOD SPECIMENOrdering Facility: [facility] Address: [address] [place] [address] Result Comment: Sonya mated Glomerular Filtration Rate [...] actual GFR. Performed By: #### 2 4323-8 ####[facility]ITAL[facility]CL[facility] [id number] [place] [address] [place] Glucose [Mass/Vol] 137 mg/dL High 74-99 [facility] Comment on above: Order Comment: Marcelina plascencia Type: BLOOD SPECIMENOrdering Facility: [facility] Address: [address] [place] [address] Result Comment: The [place] Diabetes Association (ADA) provides guidance for cutoff [...] Standards of Medical Care in Diabetes 2016, [place] Diabetes Association. Diabetes Care. 2016.39(Suppl 1). Performed By: #### 2 4323-8 ####[facility] MILL[facility]OWNCLIA [id number] [place] [address] [place] Potassium [Moles/Vol] 4.2 mmol/L Normal 3.7-5.1 [facility] Comment on above: Order Comment: Speci men Type: BLOOD SPECIMENOrdering Facility: [facility] Address: [address] [place] [address] Performed By: #### 2 4323-8 ####[facility] MILLWNCLIA [id number] [place] [address] [place] Protein [Mass/Vol] 6.3 g/dL Normal 6.3-8.0 [facility] Comment on above: Order Comment: Speci men Type: BLOOD SPECIMENOrdering Facility: [facility] Address: [address] [place] [address] Performed By: #### 2 4323-8 ####[facility] H[facility]IT[facility]IA [id number] [place] [address] [place] Sodium [Moles/Vol] 142 mmol/L Normal 136-144 [facility] Comment on above: Order Comment: Speci men Type: BLOOD SPECIMENOrdering Facility: [facility] Address: [address] [place] [address] Performed By: #### 2 4323-8 ####[facility]ITAL[facility]CLIA [id number] [place] [address] [place] Urea nitrogen [Mass/Vol] 19 mg/dL Normal 7-21 [facility] Comment on above: Order Comment: Speci men Type: BLOOD SPECIMENOrdering Facility: [facility] Address: [address] [place] [address] Performed By: #### 2 4323-8 ####[facility] [id number] [place] [address] [place] HbA1c (Bld)on 11-14-2024 Average glucose Estimated from glycated hemoglobin (Bld) [Mass/Vol] 137 mg/dL Normal [facility] Comment on above: Order Comment: Marcelina plascencia Type: BLOOD SPECIMENOrdering Facility: [facility] Address: [address] [place] [address] Result Comment: eAG: (Estimated average glucose) is a calculated value from HgbA1c and is route sales representative of the average blood glucose level in the last 2-3 month period. Performed By: #### 5 5454-3 ####[facility] [id number] [address] [place] HbA1c (Bld) [Mass fraction] 6.4 % High 4.3-5.6 [facility] Comment on above: Order Comment: Marcelina plascencia Type: BLOOD SPECIMENOrdering Facility: [facility] Address: [address] [place] [address] Result Comment: Amer ican Diabetes Association guidelines indicate that patients with HgbA1c in the range 5.7-6.4% are at increased risk for development of diabetes, and intervention by lifestyle modification may be beneficial. HgbA1c greater or equal to 6.5% is considered diagnostic of diabetes. Performed By: #### 5 5454-3 ####[facility] LABCLIA [id number] [address] OF [facility] Lipid 1996 panelon 5 Cholesterol [Mass/Vol] 148 mg/dL Normal <200 [facility] Comment on above: Order Comment: Marcelina plascencia Type: BLOOD SPECIMENOrdering Facility: [facility] Address: [address] [place] [address] Result Comment: <200 mg/dL, Desirable 200-239 mg/dL, Borderline high >239 mg/dL, High Performed By: #### 2 4331-1 ####[facility] LABCLIA [id number] [place] [id number] [place] [facility] [id number] [place] [address] [place]#### 3024-7, 3016-3 ####[facility] LABCLIA [id number] [place] [id number] [place] Cholesterol in HDL [Mass/Vol] 35 mg/dL Low >39 [facility] Comment on above: Order Comment: Speci men Type: BLOOD SPECIMENOrdering Facility: [facility] Address: [address] [place] [address] Result Comment: 40-5 9 mg/dL, Acceptable >59 mg/dL, High: Negative risk factor for coronary heart disease <40 mg/dL, Low: Positive risk factor for coronary heart disease Performed By: #### 2 4331-1 ####[facility] LAB[facility] [id number] [place] [id number] [facility] [id number] [place] [address] [place]#### 3024-7, 3016-3 ####[facility] LABCLIA [id number] [place] [id number] [place] Cholesterol in LDL [Mass/Vol] 82 mg/dL Normal <100 [facility] Comment on above: Order Comment: Speci men Type: BLOOD SPECIMENOrdering Facility: [facility] Address: [address] [place] [address] Result Comment: <100 mg/dL, Optimal 100-129 mg/dL, Near optimal/above optimal 130-159 mg/dL, Borderline high 160-189 mg/dL, High >189 mg/dL, Very high Secondary prevention optimal LDL Cholesterol levels are recommended to be <70 mg/dL LDL cholesterol is calculated using the Phillips-NIH equation. Performed By: #### 2 4331-1 ####[facility] LABCL[facility] [id number] [address] [address] [facility] [id number] [address] OF [place]#### 3024-7, 3016-3 ####[facility] LABCL[facility] [id number] [address] [address] [place] Cholesterol in LDL/Cholesterol in HDL [Mass ratio] 2.34 {ratio} Normal <2.54 [facility] Comment on above: Order Comment: Speci men Type: BLOOD SPECIMENOrdering Facility: [facility] Address: [address] [place] [address] Result Comment: Refe rence: 1. National Cholesterol Education Program ATP III Guideline At-A-Glance Quick Desk Reference: National Heart, Lung, and Blood [place]. National Institutes of Health. 2001: NIH Publication No. 01-3305. 2. An International Atherosclerosis Society position paper: global recommendations for the management of dyslipidemia: executive summary, Atherosclerosis. 2014: 232(2):410-413. Performed By: #### 2 4331-1 ####[facility] [id number] [address] [address] [place] [facility] [id number] [place] [address] [place]#### 3024-7, 6-3 ####[facility]CL[facility] [id number] [address] [address] [place] Cholesterol in VLDL [Mass/Vol] 28 mg/dL Normal <30 [facility] Comment on above: Order Comment: Speci men Type: BLOOD SPECIMENOrdering Facility: [facility] Address: [address] [place] [id number] Performed By: #### 2 4331-1 ####[facility] [id number] [address] [place] [address] [place] [facility] [id number] [place] [address] [place]#### 3024-7, 3016-3 ####[facility] [id number] [address] [place] [address] [place] Cholesterol non HDL [Mass/Vol] 113 mg/dL Normal <130 [facility] Comment on above: Order Comment: Speci men Type: BLOOD SPECIMENOrdering Facility: [facility] Address: [address] [place], [place] [address] Result Comment: <130 mg/dL, Optimal 130-159 mg/dL, Near optimal/above optimal 160-189 mg/dL, Borderline high 190-219 mg/dL, High >219 mg/dL, Very high Secondary prevention optimal non HDL Cholesterol levels are recommended to be <100 mg/dL Performed By: #### 2 4331-1 ####[facility] [id number] [address] [place] [address] [place] [facility] [id number] [place] [address] [place]#### 3024-7, 6-3 ####[facility] [id number] [address], [facility] [place] Cholesterol.total/Cholest tobi in HDL [Mass ratio] 4.23 {ratio} Normal <5.10 [facility] Comment on above: Order Comment: Speci men Type: BLOOD SPECIMENOrdering Facility: [facility] Address: [address] [place], [place] [address] Performed By: #### 2 4331-1 ####[facility] [id number] [address] [address] [place] [facility] [id number] [place] [address] [place]#### 3024-7, 3016-3 ####[facility] [id number] [address] [address] [place] FASTING TIME 12 hrs Normal [facility] Comment on above: Order Comment: Speci men Type: BLOOD SPECIMENOrdering Facility: [facility] Address: [address] [place] [address] Performed By: #### 2 4331-1 ####[facility] [id number] [address] [address] [place] [facility] [id number] [place] [address] [place]#### 3024-7, 3016-3 ####[facility] [id number] [place] [id number] [place] Triglyceride [Mass/Vol] 183 mg/dL High <150 C [facility] Comment on above: Order Comment: Speci men Type: BLOOD SPECIMENOrdering Facility: [facility] Address: [address] [place] [address] Result Comment: <150 mg/dL, Normal 150-199 mg/dL, Borderline high 200-499 mg/dL, High >499 mg/dL, Very high Performed By: #### 2 4331-1 ####[facility] [id number] [place] [id number] [place] [facility] [id number] [place] [address] [place]#### 3024-7, 3016-3 ####[facility] LABCL[facility] [id number] [address] [address] [place] T4 Free SerPl-mCncon 11-14- 025 Free T4 [Mass/Vol] 1.4 ng/dL Normal 0.9-1.7 [facility] Comment on above: Order Comment: Speci men Type: BLOOD SPECIMENOrdering Facility: [facility] Address: [address] [place], [place] [address] Performed By: #### 2 4331-1 ####[facility] [id number] [place] [address] [facility] [id number] [place] [address] [place]#### 3024-7, 3016-3 ####[facility] MIAMISBURGIA [id number] [place] [address] [place] TSH SerPl-aCncon 11-14-2024 TSH Qn 0.133 m[IU]/L Low 0.270-4.20 0 [facility] Comment on above: Order Comment: Speci men Type: BLOOD SPECIMENOrdering Facility: [facility] Address: [address] [place] [address] Performed By: #### 2 4331-1 ####[facility] [id number] [address] [id number] [address] [place]#### 3024-7, 3016-3 ####[facility] [id number] [place] [id number] [facility] OF [place] Chris 11-06-2024 CNPN Telephone [facility] ----- NGUYEN QUEEN ([id number]) 1945 F Date Time Provider Department 11/06/24 JEFF SIMEON [facility] During your visit today, we recorded the [...] PEN[place]ILLINS 05/17/2015 12 - Shortness of Breath LOEQNTS-ATY-VRN REDUCTASE INHIBIT*09/28/2015 15 - Contraindication-Medical Lester* Comments: History of liver failure Date Reviewed: 02/14/2024 Reviewed by: Karson Woodward APRN.CNP - Fully Assessed Reason for Visit: Orders [681] Primary Visit Diagnosis:Vitamin D deficiency [E55.9] Other Visit Diagnoses: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 Normal [facility] Oncology Visit Reporton 10-13 Oncology Visit Report [facility] [place] [address] OFFICE VISIT Date of Service: 10/23/24 1405 MR#: [id number] Acct: [id number] Name: NGUYEN QUEEN Rep #: [id number] : 1945 From: Maco Singh MD Age/Sex: 79/F Location[place] [facility] Status: Signed HPI Subjective Date of Service 10/23/24 Chief Complaint F/u for anemia. History of Present Illness 79-year-old woman presented with right lower quadrant abdominal pain to [facility]. CT of the abdomen and pelvis on [...] and comes for follow up. Feels well. [facility] Medical History Colon cancer Bilateral [...] Products Adverse Reaction (Verified 10/23/24 14:09) Other [place] And Derivatives Adverse Reaction (Verified 10/23/24 14:09) [...] L 12.5 (more content not included)... Normal [facility] Carcinoembryonic Antigenon 0 10-17-2024 CEA 4.9 ng/mL High 0.0-4.7 [facility] Comment on above: Result Comment: Nons mokers <3.9 Smokers <5.6 [facility] Electrochemiluminescence Immunoassay (ECLIA) Values obtained with different assay methods or kits cannot be used interchangeably. Results cannot be interpreted as absolute evidence of the presence or absence of malignant disease. Performed at: [employer] [facility] [id number] Patient Admitting Representative: Flako Araujo PhD, Phone: [phone] Performed By: #### L 3100.2300, L500.4050, L503.6030, L504.2610, L900.0098, L100.0100 #### [facility] [address] [place], [address] Absolute lymphocyte countOrd ered By: Maco Singh on 10-16-2024 Lymphocytes Auto (Unsp spec) [#/Vol] 1.51 10*3/uL 0.83-4.51 [facility] Absolute neutrophil countOrd ered By: Maco Singh on 10-16-2024 Neutrophils (Bld) [#/Vol] 4.2 10*3/uL 2.0-7.7 [facility] Anion gap in Serum or Plasma Ordered By: Maco Singh on 10-16-2024 Anion gap [Moles/Vol] 12 mmol/L 5-15 [facility] Automated lymphocyte count a s percentage of total leukocytesOrdered By: Maco Nuñeznarciso on 10-16-2024 Lymphocytes/100 WBC Auto (Unsp spec) 23.2 % 19-41 [facility] BUN/creatinine ratioOrdered By: Maco Nuñeznarciso on 10-16-2024 Urea nitrogen/Creatinine [Mass ratio] 26.0 mg/mg High 10-20 [facility] Basophil percentageOrdered B y: Maco Nuñeznarciso on 10-16-2024 Basophils/100 WBC (Bld) 0.5 % 0-1 [facility] Bilirubin, totalOrdered By: Maco Nuñeznarciso on 10-16-2024 Bilirubin [Mass/Vol] 0.25 mg/dL 0.00-1.30 [facility] CBC W/Diff, Automatedon Absolute Lymph 1.51 X10 3/uL Normal 0.83-4.51 [facility] Comment on above: Performed By: #### L 3100.2300, L500.4050, L503.6030, L504.2610, L900.0098, L100.0100 #### [facility] [address] [place], [address] Absolute Neut 4.2 X10 3/uL Normal 2.0-7.7 [facility] Comment on above: Performed By: #### L 3100.2300, L500.4050, L503.6030, L504.2610, L900.0098, L100.0100 #### [facility] [address] [place], [address] Basophils/100 WBC (Bld) 0.5 % Normal 0-1 [facility] Comment on above: Performed By: #### L 3100.2300, L500.4050, L503.6030, L504.2610, L900.0098, L100.0100 #### [facility] [address] [place], [address] Eosinophils/100 WBC (Bld) 2.9 % Normal 0-5 [facility] Comment on above: Performed By: #### L 3100.2300, L500.4050, L503.6030, L504.2610, L900.0098, L100.0100 #### [facility] [address] [place], [address] Erythrocyte distribution width (RBC) [Ratio] 14.4 % Normal 11.6-14.6 [facility] Comment on above: Performed By: #### L 3100.2300, L500.4050, L503.6030, L504.2610, L900.0098, L100.0100 #### [facility] [address] [place], [address] Hematocrit (Bld) [Volume fraction] 36.4 % Low 37-47 [facility] Comment on above: Performed By: #### L 3100.2300, L500.4050, L503.6030, L504.2610, L900.0098, L100.0100 #### [facility] [address] [place], [address] Hemoglobin (Bld) [Mass/Vol] 11.2 g/dL Low 12.0-15.0 [facility] Comment on above: Performed By: #### L 3100.2300, L500.4050, L503.6030, L504.2610, L900.0098, L100.0100 #### [facility] [address] [place], [address] IG% 0.500 Normal 0.0-0.9 [facility] Comment on above: Result Comment: IG% - Immature Granulocytes (promyelocytes, myelocytes and metamyelocytes) > 1% indicates that a LEFT SHIFT is Present. Performed By: #### L 3100.2300, L500.4050, L503.6030, L504.2610, L900.0098, L100.0100 #### [facility] [address] [place], [address] Lymphocytes/100 WBC (Bld) 23.2 % Normal 19-41 [facility] Comment on above: Performed By: #### L 3100.2300, L500.4050, L503.6030, L504.2610, L900.0098, L100.0100 #### [facility] [address] [place], [address] MCH (RBC) [Entitic mass] 24.1 pg Low 27.0-32.0 [facility] Comment on above: Performed By: #### L 3100.2300, L500.4050, L503.6030, L504.2610, L900.0098, L100.0100 #### [facility] [address] [place], [address] MCHC (RBC) [Mass/Vol] 30.8 g/dL Low 32-36 [facility] Comment on above: Performed By: #### L 3100.2300, L500.4050, L503.6030, L504.2610, L900.0098, L100.0100 #### [facility] [address] [place], [address] MCV (RBC) [Entitic vol] 78.4 fL Low 81-99 [facility] Comment on above: Performed By: #### L 3100.2300, L500.4050, L503.6030, L504.2610, L900.0098, L100.0100 #### [facility] [address] [place], [address] Monocytes/100 WBC (Bld) 8.1 % Normal 0-10 [facility] Comment on above: Performed By: #### L 3100.2300, L500.4050, L503.6030, L504.2610, L900.0098, L100.0100 #### [facility] [address] [place], [address] Neutrophils/100 WBC (Bld) 64.8 % Normal 47-70 [facility] Comment on above: Performed By: #### L 3100.2300, L500.4050, L503.6030, L504.2610, L900.0098, L100.0100 #### [facility] [address] [place], [address] Nucleated RBC (Bld) [#/Vol] 0 10*3/uL Normal 0-5 [facility] Comment on above: Performed By: #### L 3100.2300, L500.4050, L503.6030, L504.2610, L900.0098, L100.0100 #### [facility] [address] [place], [address] Platelet mean volume (Bld) [Entitic vol] 9.8 fL Normal 6.2-12.0 [facility] Comment on above: Performed By: #### L 3100.2300, L500.4050, L503.6030, L504.2610, L900.0098, L100.0100 #### [facility] [address] [place], [address] Platelets (Bld) [#/Vol] 339 10*3/uL Normal 150-450 [facility] Comment on above: Performed By: #### L 3100.2300, L500.4050, L503.6030, L504.2610, L900.0098, L100.0100 #### [facility] [address] [place], [address] RBC (Bld) [#/Vol] 4.64 10*6/uL Normal 4.2-5.4 [facility] Comment on above: Performed By: #### L 3100.2300, L500.4050, L503.6030, L504.2610, L900.0098, L100.0100 #### [facility] [address] [place], [address] RDW SD 40.5 fl Normal 35.1-43.9 [facility] Comment on above: Performed By: #### L 3100.2300, L500.4050, L503.6030, L504.2610, L900.0098, L100.0100 #### [facility] [address] [place], [address] WBC (Bld) [#/Vol] 6.5 10*3/uL Normal 4.4-11.0 [facility] Comment on above: Performed By: #### L 3100.2300, L500.4050, L503.6030, L504.2610, L900.0098, L100.0100 #### [facility] [address] [place], [address] CRPon 10-16-2024 C-REACTIVE PROT < 3.00 Normal 0.0-3.0 [facility] Comment on above: Performed By: #### L 3100.2300, L500.4050, L503.6030, L504.2610, L900.0098, L100.0100 #### [facility] [address] [place], [address] Carbon dioxide, total [Moles /volume] in Central venous bloodOrdered By: Maco Singh on 10-16-2024 CO2 [Moles/Vol] 21.7 mmol/L 21.0-32.0 [facility] Chloride assayOrdered By: Sandra Singh on 10-16-2024 Chloride [Moles/Vol] 107 mmol/L 98-108 [facility] Comprehensive Metabolic Prof ilon 10-16-2024 Albumin [Mass/Vol] 3.7 g/dL Normal 3.4-4.8 [facility] Comment on above: Performed By: #### L 3100.2300, L500.4050, L503.6030, L504.2610, L900.0098, L100.0100 #### [facility] [address] [place], [address] Albumin/Globulin [Mass ratio] 1.4 {ratio} Normal 0.9-2.4 [facility] Comment on above: Performed By: #### L 3100.2300, L500.4050, L503.6030, L504.2610, L900.0098, L100.0100 #### [facility] [address] [place], [address] ALK PHOS 90 U/L Normal 35-104 [facility] Comment on above: Performed By: #### L 3100.2300, L500.4050, L503.6030, L504.2610, L900.0098, L100.0100 #### [facility] [address] [place], [address] ALT [Catalytic activity/Vol] 11 U/L Normal <=34 [facility] Comment on above: Performed By: #### L 3100.2300, L500.4050, L503.6030, L504.2610, L900.0098, L100.0100 #### [facility] [address] [place], [address] AST [Catalytic activity/Vol] 14 U/L Normal <=31 [facility] Comment on above: Performed By: #### L 3100.2300, L500.4050, L503.6030, L504.2610, L900.0098, L100.0100 #### [facility] [address] [place], [address] Bilirubin [Mass/Vol] 0.25 mg/dL Normal 0.00-1.30 [facility] Comment on above: Performed By: #### L 3100.2300, L500.4050, L503.6030, L504.2610, L900.0098, L100.0100 #### [facility] [address] [place], [address] BUN/CRE 26.0 RATIO High 10-20 [facility] Comment on above: Performed By: #### L 3100.2300, L500.4050, L503.6030, L504.2610, L900.0098, L100.0100 #### [facility] [address] [place], [address] Calcium [Mass/Vol] 9.1 mg/dL Normal 7.6-11.0 [facility] Comment on above: Performed By: #### L 3100.2300, L500.4050, L503.6030, L504.2610, L900.0098, L100.0100 #### [facility] [address] [place], [address] Chloride [Moles/Vol] 107 mmol/L Normal 98-108 [facility] Comment on above: Performed By: #### L 3100.2300, L500.4050, L503.6030, L504.2610, L900.0098, L100.0100 #### [facility] [address] [place], [address] CO2 [Moles/Vol] 21.7 mmol/L Normal 21.0-32.0 [facility] Comment on above: Performed By: #### L 3100.2300, L500.4050, L503.6030, L504.2610, L900.0098, L100.0100 #### [facility] [address] [place], [address] Creatinine [Mass/Vol] 0.61 mg/dL Low 0.70-1.20 [facility] Comment on above: Performed By: #### L 3100.2300, L500.4050, L503.6030, L504.2610, L900.0098, L100.0100 #### [facility] [address] [place], [address] ECRCL 56.72 ml/min Normal 50-250 [facility] Comment on above: Performed By: #### L 3100.2300, L500.4050, L503.6030, L504.2610, L900.0098, L100.0100 #### [facility] [address] [place], [address] GAP 12 Normal 5-15 [facility] Comment on above: Performed By: #### L 3100.2300, L500.4050, L503.6030, L504.2610, L900.0098, L100.0100 #### [facility] [address] [place], [address] GFR/1.73 sq M.predicted among non-blacks MDRD (S/P/Bld) [Vol rate/Area] 92 mL/min/{1.73_m2} Normal >60 [facility] Comment on above: Result Comment: mL/m in/1.73m2 CKD-EPI Creatinine Equation (2020) Performed By: #### L 3100.2300, L500.4050, L503.6030, L504.2610, L900.0098, L100.0100 #### [facility] [address] [place], [address] Globulin (S) [Mass/Vol] 2.6 g/dL Normal 2.2-4.2 [facility] Comment on above: Performed By: #### L 3100.2300, L500.4050, L503.6030, L504.2610, L900.0098, L100.0100 #### [facility] [address] [place], [address] Glucose [Mass/Vol] 164 mg/dL High 70-99 [facility] Comment on above: Performed By: #### L 3100.2300, L500.4050, L503.6030, L504.2610, L900.0098, L100.0100 #### [facility] [address] [place], [address] Potassium [Moles/Vol] 4.4 mmol/L Normal 3.3-5.1 [facility] Comment on above: Performed By: #### L 3100.2300, L500.4050, L503.6030, L504.2610, L900.0098, L100.0100 #### [facility] [address] [place], [address] Sodium [Moles/Vol] 141 mmol/L Normal 133-145 [facility] Comment on above: Performed By: #### L 3100.2300, L500.4050, L503.6030, L504.2610, L900.0098, L100.0100 #### [facility] [address] [place], [address] T PROT 6.3 g/dL Normal 5.9-8.4 [facility] Comment on above: Performed By: #### L 3100.2300, L500.4050, L503.6030, L504.2610, L900.0098, L100.0100 #### [facility] [address] [place], [address] Urea nitrogen [Mass/Vol] 16 mg/dL Normal 4-19 [facility] Comment on above: Performed By: #### L 3100.2300, L500.4050, L503.6030, L504.2610, L900.0098, L100.0100 #### [facility] [address] [place], [address] Eosinophil percentageOrdered By: Maco Singh on 10-16-2024 Eosinophils/100 WBC (Bld) 2.9 % 0-5 [facility] Erythrocyte Sed Rateon 10-16 SED RATE 20 mm/hr Normal 0-30 [facility] Comment on above: Performed By: #### L 3100.2300, L500.4050, L503.6030, L504.2610, L900.0098, L100.0100 #### [facility] [address] [place], [address] Erythrocyte distribution wid th ratioOrdered By: Maco Singh on 10-16-2024 Erythrocyte distribution width (RBC) [Ratio] 14.4 % 11.6-14.6 [facility] Erythrocyte distribution wid th standard deviationOrdered By: Maco Singh on 10-16-2024 Erythrocyte distribution width (RBC) [Ratio] 40.5 fl 35.1-43.9 [facility] Erythrocyte sedimentation ra teOrdered By: Maco Singh on 10-16-2024 ESR (Bld) [Velocity] 20 mm/h 0-30 [facility] Ferritinon 10-16-2024 Ferritin [Mass/Vol] 28 ng/mL Normal 22-378 [facility] Comment on above: Performed By: #### L 3100.2300, L500.4050, L503.6030, L504.2610, L900.0098, L100.0100 #### [facility] [address] [place], [address] Folate [Mass/volume] in Seru m or PlasmaOrdered By: Maco Singh on 10-16-2024 Folate [Mass/Vol] 15.80 ng/mL 4.60-34.80 [facility] Folates,Serum (Folic Acid)on 10-16-2024 FOLATES,SERUM 15.80 ng/mL Normal 4.60-34.80 [facility] Comment on above: Order Comment: 1 Performed By: #### L 3100.2300, L500.4050, L503.6030, L504.2610, L900.0098, L100.0100 #### [facility] [address] [place], [address] Glomerular filtration rate ( GFR) estimation/1.73 sq m using serum, plasma, or whole bOrdered By: Maco Singh on 10-16-2024 GFR/1.73 sq M.predicted among non-blacks MDRD (S/P/Bld) [Vol rate/Area] 92 mL/min/{1.73_m2} >60 [facility] Comment on above: mL/min/1.73m2 CKD-EP I Creatinine Equation (2020) Hematocrit Auto (Bld) [Volum e fraction]Ordered By: Maco Singh on 10-16-2024 Hematocrit (Bld) [Volume fraction] 36.4 % Low 37-47 [facility] Hemoglobin measurementOrdere d By: Maco Singh on 10-16-2024 Hemoglobin (Bld) [Mass/Vol] 11.2 g/dL Low 12.0-15.0 [facility] Immature granulocytes/100 WB C Auto (Bld)Ordered By: Maco Singh on 10-16-2024 Immature granulocytes/100 WBC (Bld) 0.500 % 0.0-0.9 [facility] Comment on above: IG% - Immature Granu locytes (promyelocytes, myelocytes and metamyelocytes) > 1% indicates that a LEFT SHIFT is Present. Iron measurement (mass/mass) Ordered By: Maco Singh on 10-16-2024 Iron (Unsp spec) [Mass/Mass] 188 ug/dL High 50-170 [facility] Iron+Iron Binding Capacityon 10-16-2024 Iron [Mass/Vol] 188 ug/dL High 50-170 [facility] Comment on above: Performed By: #### L 3100.2300, L500.4050, L503.6030, L504.2610, L900.0098, L100.0100 #### [facility] [address] [place], [place], [address] IRON SATURATION 60.0 High 13-59 [facility] Comment on above: Performed By: #### L 3100.2300, L500.4050, L503.6030, L504.2610, L900.0098, L100.0100 #### [facility] [address] [place], [address] TIBC 315 ug/dL Normal 250-450 [facility] Comment on above: Performed By: #### L 3100.2300, L500.4050, L503.6030, L504.2610, L900.0098, L100.0100 #### [facility] [address] [place], [address] UIBC 127 ug/dL Low 228-428 [facility] Comment on above: Performed By: #### L 3100.2300, L500.4050, L503.6030, L504.2610, L900.0098, L100.0100 #### [facility] [address] [place], [address] LDHon 10-16-2024 LDH 112 U/L Normal 84-246 [facility] Comment on above: Order Comment: 1 Performed By: #### L 3100.2300, L500.4050, L503.6030, L504.2610, L900.0098, L100.0100 #### [facility] [address] [place], [address] Laboratory - Chemistry and C hemistry - challengeOrdered By: Maco Singh on 10-16-2024 AST [Catalytic activity/Vol] 14 U/L <32 [facility] Lactate dehydrogenase (LDH) measurementOrdered By: Maco Singh on 10-16-2024 LDH [Catalytic activity/Vol] 112 U/L 84-246 [facility] MCV (mean corpuscular volume ) determinationOrdered By: Maco Singh on 10-16-2024 MCV (RBC) [Entitic vol] 78.4 fL Low 81-99 [facility] Mean corpuscular hemoglobin (MCH) determinationOrdered By: Maco Singh on 10-16-2024 MCH (RBC) [Entitic mass] 24.1 pg Low 27.0-32.0 [facility] Mean corpuscular hemoglobin concentration (MCHC) determinationOrdered By: Maco Singh on 10-16-2024 MCHC (RBC) [Mass/Vol] 30.8 g/dL Low 32-36 [facility] Mean platelet volume determi nationOrdered By: Maco Singh on 10-16-2024 Platelet mean volume (Bld) [Entitic vol] 9.8 fL 6.2-12.0 [facility] Monocyte percentageOrdered B y: Maco Singh on 10-16-2024 Monocytes/100 WBC (Bld) 8.1 % 0-10 [facility] Neutrophil percentageOrdered By: Maco Singh on 10-16-2024 Neutrophils/100 WBC (Bld) 64.8 % 47-70 [facility] No Panel InformationOrdered By: Maco Singh on 10-16-2024 Unsaturated Iron Binding Capacity 127 ug/dL Low 228-428 [facility] Nucleated red blood cell per centageOrdered By: Maco Singh on 10-16-2024 Nucleated RBC/100 WBC (Bld) [Ratio] 0 % 0-5 [facility] Platelet countOrdered By: Sandra Singh on 10-16-2024 Platelets (Bld) [#/Vol] 339 10*3/uL 150-450 [facility] Potassium measurement (mass/ volume)Ordered By: Maco Singh on 10-16-2024 Potassium (Unsp spec) [Mass/Vol] 4.4 mmol/L 3.3-5.1 [facility] RBC Auto (Bld) [#/Vol]Ordere d By: Maco Singh on 10-16-2024 RBC (Bld) [#/Vol] 4.64 10*6/uL 4.2-5.4 [facility] Retic Panelon 10-16-2024 IM RET FRACTION 11.70 Normal 3.00-15.90 [facility] Comment on above: Performed By: #### L 3100.2300, L500.4050, L503.6030, L504.2610, L900.0098, L100.0100 #### [facility] [address] [place], [address] RET-HE 26.8 pg Low 30-35 [facility] Comment on above: Performed By: #### L 3100.2300, L500.4050, L503.6030, L504.2610, L900.0098, L100.0100 #### [facility] [address] [place], [address] Retic Count 1.56 High 0.5-1.5 [facility] Comment on above: Performed By: #### L 3100.2300, L500.4050, L503.6030, L504.2610, L900.0098, L100.0100 #### [facility] [address] [place], [place], [address] Reticulocyte hemoglobin equi valent (RET-He) measurementOrdered By: Maco Singh on 10-16-2024 Hemoglobin (Reticulocytes) [Entitic mass] 26.8 pg Low 30-35 [facility] Reticulocytes Auto (Bld) [#/ Vol]Ordered By: Maco Singh on 10-16-2024 Reticulocytes/100 RBC (Bld) 1.56 % High 0.5-1.5 [facility] Serum creatinine measurement (mass/volume)Ordered By: Maco Singh on 10-16-2024 Creatinine [Mass/Vol] 0.61 mg/dL Low 0.70-1.20 [facility] Serum globulin measurementOr dered By: Maco Singh on 10-16-2024 Globulin (S) [Mass/Vol] 2.6 g/dL 2.2-4.2 [facility] Serum glucose measurement (m ass/volume)Ordered By: Maco Singh on 10-16-2024 Glucose [Mass/Vol] 164 mg/dL High 70-99 [facility] Serum or plasma C reactive p rotein measurement (mass/volume)Ordered By: Maco Singh on 10-16-2024 CRP [Mass/Vol] mg/L 0.0-3.0 [facility] Serum or plasma alanine cuellar otransferase (ALT) measurementOrdered By: Maco Singh on 10-16-2024 ALT [Catalytic activity/Vol] 11 U/L <35 [facility] Serum or plasma albumin pj urement (mass/volume)Ordered By: Maco Singh on 10-16-2024 Albumin [Mass/Vol] 3.7 g/dL 3.4-4.8 [facility] Serum or plasma albumin/glob ulin mass ratioOrdered By: Maco Singh on 10-16-2024 Albumin/Globulin [Mass ratio] 1.4 {ratio} 0.9-2.4 [facility] Serum or plasma alkaline miriam sphatase measurementOrdered By: Maco Singh on 10-16-2024 ALP [Catalytic activity/Vol] 90 U/L 35-104 [facility] Serum or plasma calcium pj urement (mass/volume)Ordered By: Maco Singh on 10-16-2024 Calcium [Mass/Vol] 9.1 mg/dL 7.6-11.0 [facility] Serum or plasma carcinoembry onic antigen measurement (mass/volume)Ordered By: Maco Singh on 10-16-2024 Carcinoembryonic Ag [Mass/Vol] 4.9 ng/mL High 0.0-4.7 [facility] Comment on above: Nonsmokers <3.9 Smok ers <5.6[facility] [employer] Electrochemiluminescence Immunoassay(ECLIA)Values obtained with different assay methods or kitscannot be used interchangeably. Results cannot beinterpreted as absolute evidence of the presence orabsence of malignant disease.Performed at: [facility] [employer] [facility] [facility] [id number] Director: Flako Araujo PhD, Phone: [phone] Serum or plasma ferritin nunu surement (mass/volume)Ordered By: Maco Singh on 10-16-2024 Ferritin [Mass/Vol] 28 ng/mL 22-378 [facility] Serum or plasma iron saturat ion measurement (mass fraction)Ordered By: Maco Singh on 10-16-2024 Iron saturation [Mass fraction] 60.0 % High 13-59 [facility] Serum or plasma urea nitroge n measurement (mass/volume)Ordered By: Maco Singh on 10-16-2024 Urea nitrogen [Mass/Vol] 16 mg/dL 4-19 [facility] Sodium levelOrdered By: Trey Singh on 10-16-2024 Sodium [Moles/Vol] 141 mmol/L 133-145 [facility] Total proteinOrdered By: Uli Singh on 10-16-2024 Protein [Mass/Vol] 6.3 g/dL 5.9-8.4 [facility] Vitamin B12on 10-16-2024 Cobalamin (Vitamin B12) [Mass/Vol] 302 pg/mL Normal 180-914 [facility] Comment on above: Result Comment: AMENDED REPORT 10/16/24922 Vitamin B12 previously reported as: 326 pg/mL Performed By: #### L 3100.2300, L500.4050, L503.6030, L504.2610, L900.0098, L100.0100 #### [facility] [address] [facility] [place], [address] Vitamin B12 ser/plasOrdered By: Maco Singh on 10-16-2024 Cobalamin (Vitamin B12) [Mass/Vol] 302 pg/mL 180-914 [facility] Comment on above: Previous reported re sult: 326 pg/mLEdited by: CHERI on 10/16/24:09 AMENDED REPORT 10/16/24922 Vitamin B12 previously reported as: 326 pg/mL White blood cell (WBC) count Ordered By: Maco Singh on 10-16-2024 WBC (Bld) [#/Vol] 6.5 10*3/uL 4.4-11.0 [facility] SCRN MAMM (CAD)W/FLOR BILATo n 05-30-2024 SCRN MAMM (CAD)W/FLOR BILAT [facility] [address] [place], [place] [id number] SCRN MAMM (CAD)W/FLOR BILAT MR#: [id number] Acct: [id number] Name: NGUYEN QUEEN Rep #: [id number] : 1945 F 79 From: Emily Thornton MD PCP: Dr. Jeff Simeon, DO Status: REG CLI Study: SCRN MAMM (CAD)W/FLOR BILAT Date of Exam: 05/13 10/06 Exam# [id number] Ordering Dr: Jeff Simeon DO EXAM: SCRN [...] be mailed to the patient. Reading Location: [facility] CC: Dr. Jeff Simeon DO Bag Inspector: Signed Normal [facility] 25([place])D3 [facility] 25-hydroxyvitamin D3 [Mass/Vol] 17.7 ng/mL Low 31.0-80.0 [facility] Comment on above: Order Comment: Speci men Type: BLOOD SPECIMENOrdering Facility: [facility] Address: [address] [place] [address] Result Comment: Clas sification of 25 [place] Vitamin D status: Deficiency/Insufficiency: < or = 30 ng/ml. Sufficiency/Optimal Levels: 31-80 ng/mL Toxicity: > 100 ng/mL. Test performed by chemiluminescent immunoassay. Performed By: #### 1 989-3 ####[facility] [id number] [place] [address] [place] CNOVon 2024 CNOV Office Visit (FAMPWS ) ----- NGUYEN QUEEN ([id number]) 1945 F Date Time Provider Department 05/23/24 [...] up in the next few months with [employer]ist Dr. Crystal as well. She is eating [...] WHEN PFRMD 08/25/2003 adenomatous polyp and diverticulosis. [facility] COLONOSCOPY FLX DX W/COLLJ SPEC WHEN PFRMD 09/28/2006 No polyps found. 5 yr recall. [facility] COLONOSCOPY FLX DX W/COLLJ SPEC WHEN PFRMD 02/26/2018 Colonoscopy ESOPHAGOGASTRODUODENOSCOP Y TRANSORAL DIAGNOSTIC 08/31/2003 Unremarkable, negative biopsies. [facility] ESOPHAGOGASTRODUODENOSCOP Y TRANSORAL DIAGNOSTIC 02/26/2018 EGD LAPAROSCOPIC CHOLECYSTECTOMY 04/05/2022 REMV CATARACT EXTRACAP,INSERT LENS Bilateral TONSILLECTOMY HX Social History Tobacco Use Smoking status: Never Smokeless tobacco: Never Vaping Use Vaping status: Never Used Substance Use Topics Alcohol use: No Drug use: No FAMILY HISTORY Adopted: Yes Allergies: ALLERGIES Allergen Reactions Benadryl [Diphenhyd* Swelling Penicillins Shortness of Breath Ffcavdp-Hgg-Xqe Red* Contraindication-Medical Surgical History of liver failure [...] (more content not included)... Normal [facility] T4 Free SerPl-mCncon 025 Free T4 [Mass/Vol] 1.3 ng/dL Normal 0.9-1.7 [facility] Comment on above: Order Comment: Speci men Type: BLOOD SPECIMENOrdering Facility: [facility] Address: [address] [place] [address] Performed By: #### 2 132-9, 3024-7, 3016-3 ####[facility] [id number] [place] [address] [place] TSH SerPl-aCncon 2024 TSH Qn 0.040 m[IU]/L Low 0.270-4.20 0 [facility] Comment on above: Order Comment: [facility] Type: BLOOD SPECIMENOrdering Facility: [facility] Address: [address] [place] [address] Performed By: #### 2 132-9, 3024-7, 3016-3 ####[facility] [id number] [place] [address] [place] US DVT LOWER [...] in the visualized veins of both legs. Bag Inspector: [facility] Transcribe Date/Time: 2024 1:49P Dictated by : ERIBERTO BENAVIDEZ MD This examination was interpreted and the report reviewed and electronically signed by: ERIBERTO BENAVIDEZ MD on 2024 1:51PM EST [id number] Normal [facility] US Lower extremity vein - bi lateralon 2024 IMPRESSION: No deep venous thrombosis in the visualized veins of both legs. Bag Inspector: [facility] Transcribe Date/Time: 2024 1:49P Dictated by [...] superficial venous thrombosis. DIVISION OF RADIOLOGY Provider, [facility] - 2024 * * *Final Report* * [...] in the visualized veins of both legs. Bag Inspector: [facility] Transcribe Date/Time: 2024 1:49P Dictated by : ERIBERTO BENAVIDEZ MD This examination was interpreted and the report reviewed and electronically signed by: ERIBERTO BENAVIDEZ MD on 2024 1:51PM EST [facility] Radiology Study observation (narrative) [facility] US Lower extremity vein - bi lateralOrdered By: [facility] Provider on 2024 [facility] Vit B12 SerPl-mCncon 025 Cobalamin (Vitamin B12) [Mass/Vol] 375 pg/mL Normal 232-1245 [facility] Comment on above: Order Comment: Speci men Type: BLOOD SPECIMENOrdering Facility: [facility] Address: [address] [place] [address] Performed By: #### 2 132-9, 3024-7, 3016-3 ####[facility] [id number] [place] [address] [place] Gastroenterology Visit Repor ton 05-06-2024 Gastroenterology Visit Report [facility] [address] [place] [address] OFFICE VISIT Date of Service: 05/06/24 MR#: [id number] Acct: [id number] Name: NGUYEN QUEEN Rep #: [id number] : 1945 Provider: Jarrell Crystal DO Age/Sex: 78/F Location[place] [facility] Status: Signed Intake Vital Signs 10/17/23 14:16 [...] Products Adverse Reaction (Verified 04/17/24 14:18) Other [place] And Derivatives Adverse Reaction (Verified 04/17/24 14:18) [...] to the office today for follow up. *[facility] established 4 for repeat colonoscopy after recent [...] endometrium cannot be accurately evaluated with [facility] hospitalization .05.05 - 9 abd pain - [...] and i (more content not included)... Normal [facility] Carcinoembryonic Antigenon 0 - CEA 6.8 ng/mL High 0.0-4.7 [facility] Comment on above: Result Comment: Nons mokers <3.9 Smokers <5.6 [facility] Electrochemiluminescence Immunoassay (ECLIA) Values obtained with different assay methods or kits cannot be used interchangeably. Results cannot be interpreted as absolute evidence of the presence or absence of malignant disease. Performed at: [facility] [employer] [facility] [id number] Patient Admitting Representative: Flako Araujo PhD, Phone: [phone] Performed By: #### L 503.6550, L501.2300, L503.0106, L900.0098, L504.2610, L3100.2300, L500.4050, L501.5200, L503.6030, L506.0200, L100.0100 ####[facility] [address] [place], [address] Absolute neutrophil countOrd ered By: Maco Singh on 04-17-2024 Neutrophils (Bld) [#/Vol] 3.2 10*3/uL 2.0-7.7 [facility] Anion gap in Serum or Plasma Ordered By: Maco Singh on 04-17-2024 Anion gap [Moles/Vol] 11 mmol/L 5-15 [facility] BUN/creatinine ratioOrdered By: Maco Singh on 04-17-2024 Urea nitrogen/Creatinine [Mass ratio] 25.4 mg/mg High 10-20 [facility] Basophil percentageOrdered B y: Maco Singh on 04-17-2024 Basophils/100 WBC (Bld) 0.6 % 0-1 [facility] Bilirubin, totalOrdered By: Maco Singh on 04-17-2024 Bilirubin [Mass/Vol] 0.25 mg/dL 0.00-1.30 [facility] CBC W/Diff, Automatedon 03- Absolute Lymph 1.32 X10 3/uL Normal 0.83-4.51 [facility] Comment on above: Performed By: #### L 503.6550, L501.2300, L503.0106, L900.0098, L504.2610, L3100.2300, L500.4050, L501.5200, L503.6030, L506.0200, L100.0100 #### [facility] [address] [place], [place], [phone] ([phone]) Absolute Neut 3.2 X10 3/uL Normal 2.0-7.7 [facility] Comment on above: Performed By: #### L 503.6550, L501.2300, L503.0106, L900.0098, L504.2610, L3100.2300, L500.4050, L501.5200, L503.6030, L506.0200, L100.0100 #### [facility] [address] [place], [place], [phone] (970) Basophils/100 WBC (Bld) 0.6 % Normal 0-1 [facility] Comment on above: Performed By: #### L 503.6550, L501.2300, L503.0106, L900.0098, L504.2610, L3100.2300, L500.4050, L501.5200, L503.6030, L506.0200, L100.0100 #### [facility] [address] [place], [place], [phone] (459) Eosinophils/100 WBC (Bld) 2.3 % Normal 0-5 [facility] Comment on above: Performed By: #### L 503.6550, L501.2300, L503.0106, L900.0098, L504.2610, L3100.2300, L500.4050, L501.5200, L503.6030, L506.0200, L100.0100 #### [facility] [address] [place], [place], [phone] (383) Erythrocyte distribution width (RBC) [Ratio] 15.7 % High 11.6-14.6 [facility] Comment on above: Performed By: #### L 503.6550, L501.2300, L503.0106, L900.0098, L504.2610, L3100.2300, L500.4050, L501.5200, L503.6030, L506.0200, L100.0100 #### [facility] [address] [place], [address] (844) Hematocrit (Bld) [Volume fraction] 41.3 % Normal 37-47 [facility] Comment on above: Performed By: #### L 503.6550, L501.2300, L503.0106, L900.0098, L504.2610, L3100.2300, L500.4050, L501.5200, L503.6030, L506.0200, L100.0100 #### [facility] [address] [place], [address] (423) Hemoglobin (Bld) [Mass/Vol] 12.5 g/dL Normal 12.0-15.0 [facility] Comment on above: Performed By: #### L 503.6550, L501.2300, L503.0106, L900.0098, L504.2610, L3100.2300, L500.4050, L501.5200, L503.6030, L506.0200, L100.0100 #### [facility] [address] [place], [address] (225) IG% 0.400 Normal 0.0-0.9 [facility] Comment on above: Result Comment: IG% - Immature Granulocytes (promyelocytes, myelocytes and metamyelocytes) > 1% indicates that a LEFT SHIFT is Present. Performed By: #### L 503.6550, L501.2300, L503.0106, L900.0098, L504.2610, L3100.2300, L500.4050, L501.5200, L503.6030, L506.0200, L100.0100 #### [facility] [address] [place], [address] Lymphocytes/100 WBC (Bld) 24.9 % Normal 19-41 [facility] Comment on above: Performed By: #### L 503.6550, L501.2300, L503.0106, L900.0098, L504.2610, L3100.2300, L500.4050, L501.5200, L503.6030, L506.0200, L100.0100 #### [facility] [address] [place], [address] MCH (RBC) [Entitic mass] 23.9 pg Low 27.0-32.0 [facility] Comment on above: Performed By: #### L 503.6550, L501.2300, L503.0106, L900.0098, L504.2610, L3100.2300, L500.4050, L501.5200, L503.6030, L506.0200, L100.0100 #### [facility] [facility] [address] [place], [address] MCHC (RBC) [Mass/Vol] 30.3 g/dL Low 32-36 [facility] Comment on above: Performed By: #### L 503.6550, L501.2300, L503.0106, L900.0098, L504.2610, L3100.2300, L500.4050, L501.5200, L503.6030, L506.0200, L100.0100 #### [facility] [address] [place], [address] MCV (RBC) [Entitic vol] 78.8 fL Low 81-99 [facility] Comment on above: Performed By: #### L 503.6550, L501.2300, L503.0106, L900.0098, L504.2610, L3100.2300, L500.4050, L501.5200, L503.6030, L506.0200, L100.0100 #### [facility] [address] [facility] [place], [address] Monocytes/100 WBC (Bld) 11.1 % High 0-10 [facility] Comment on above: Performed By: #### L 503.6550, L501.2300, L503.0106, L900.0098, L504.2610, L3100.2300, L500.4050, L501.5200, L503.6030, L506.0200, L100.0100 #### [facility] [address] [facility] [place], [address] Neutrophils/100 WBC (Bld) 60.7 % Normal 47-70 [facility] Comment on above: Performed By: #### L 503.6550, L501.2300, L503.0106, L900.0098, L504.2610, L3100.2300, L500.4050, L501.5200, L503.6030, L506.0200, L100.0100 #### [facility] [address] [facility] [place], [address] Nucleated RBC (Bld) [#/Vol] 0 10*3/uL Normal 0-5 [facility] Comment on above: Performed By: #### L 503.6550, L501.2300, L503.0106, L900.0098, L504.2610, L3100.2300, L500.4050, L501.5200, L503.6030, L506.0200, L100.0100 #### [facility] [address] [facility] [place], [address] ( Platelet mean volume (Bld) [Entitic vol] 9.8 fL Normal 6.2-12.0 [facility] Comment on above: Performed By: #### L 503.6550, L501.2300, L503.0106, L900.0098, L504.2610, L3100.2300, L500.4050, L501.5200, L503.6030, L506.0200, L100.0100 #### [facility] [address] [place], [address] Platelets (Bld) [#/Vol] 380 10*3/uL Normal 150-450 [facility] Comment on above: Performed By: #### L 503.6550, L501.2300, L503.0106, L900.0098, L504.2610, L3100.2300, L500.4050, L501.5200, L503.6030, L506.0200, L100.0100 #### [facility] [address] [place], [place], [phone] (113) RBC (Bld) [#/Vol] 5.24 10*6/uL Normal 4.2-5.4 [facility] Comment on above: Performed By: #### L 503.6550, L501.2300, L503.0106, L900.0098, L504.2610, L3100.2300, L500.4050, L501.5200, L503.6030, L506.0200, L100.0100 #### [facility] [address] [place], [place], [phone] (347 RDW SD 44.6 fl High 35.1-43.9 [facility] Comment on above: Performed By: #### L 503.6550, L501.2300, L503.0106, L900.0098, L504.2610, L3100.2300, L500.4050, L501.5200, L503.6030, L506.0200, L100.0100 #### [facility] [address] [place], [place], [phone] (078) WBC (Bld) [#/Vol] 5.3 10*3/uL Normal 4.4-11.0 [facility] Comment on above: Performed By: #### L 503.6550, L501.2300, L503.0106, L900.0098, L504.2610, L3100.2300, L500.4050, L501.5200, L503.6030, L506.0200, L100.0100 #### [facility] [address] [place], [place], [phone] Calculated total iron bindin g capacityOrdered By: Maco Singh on 04-17-2024 Total Iron Binding Capacity 285 ug/dL 250-450 [facility] Carbon dioxide, total [Moles /volume] in Central venous bloodOrdered By: Maco Singh on 04-17-2024 CO2 [Moles/Vol] 23.2 mmol/L 21.0-32.0 [facility] Chloride assayOrdered By: Sandra Singh on 04-17-2024 Chloride [Moles/Vol] 107 mmol/L 98-108 [facility] Comprehensive Metabolic Prof ilon 04-17-2024 Albumin [Mass/Vol] 3.9 g/dL Normal 3.4-4.8 [facility] Comment on above: Performed By: #### L 503.6550, L501.2300, L503.0106, L900.0098, L504.2610, L3100.2300, L500.4050, L501.5200, L503.6030, L506.0200, L100.0100 ####[facility] [address] [place], [address] Albumin/Globulin [Mass ratio] 1.3 {ratio} Normal 0.9-2.4 [facility] Comment on above: Performed By: #### L 503.6550, L501.2300, L503.0106, L900.0098, L504.2610, L3100.2300, L500.4050, L501.5200, L503.6030, L506.0200, L100.0100 ####[facility] [address] [place], [place], [phone] ALK PHOS 107 U/L High 35-104 [facility] Comment on above: Performed By: #### L 503.6550, L501.2300, L503.0106, L900.0098, L504.2610, L3100.2300, L500.4050, L501.5200, L503.6030, L506.0200, L100.0100 ####[facility] [address] [place], [place], [phone] ALT [Catalytic activity/Vol] 18 U/L Normal <=34 [facility] Comment on above: Performed By: #### L 503.6550, L501.2300, L503.0106, L900.0098, L504.2610, L3100.2300, L500.4050, L501.5200, L503.6030, L506.0200, L100.0100 ####[facility] [address] [place], [place], [phone] AST [Catalytic activity/Vol] 15 U/L Normal <=31 [facility] Comment on above: Performed By: #### L 503.6550, L501.2300, L503.0106, L900.0098, L504.2610, L3100.2300, L500.4050, L501.5200, L503.6030, L506.0200, L100.0100 ####[facility] [address] [place], [place], [phone] Bilirubin [Mass/Vol] 0.25 mg/dL Normal 0.00-1.30 [facility] Comment on above: Performed By: #### L 503.6550, L501.2300, L503.0106, L900.0098, L504.2610, L3100.2300, L500.4050, L501.5200, L503.6030, L506.0200, L100.0100 ####[facility] [address] [place], [address] BUN/CRE 25.4 RATIO High 10-20 [facility] Comment on above: Performed By: #### L 503.6550, L501.2300, L503.0106, L900.0098, L504.2610, L3100.2300, L500.4050, L501.5200, L503.6030, L506.0200, L100.0100 ####[facility] [address] [place], [address] Calcium [Mass/Vol] 9.3 mg/dL Normal 7.6-11.0 [facility] Comment on above: Performed By: #### L 503.6550, L501.2300, L503.0106, L900.0098, L504.2610, L3100.2300, L500.4050, L501.5200, L503.6030, L506.0200, L100.0100 ####[facility] [address] [place], [address] Chloride [Moles/Vol] 107 mmol/L Normal 98-108 [facility] Comment on above: Performed By: #### L 503.6550, L501.2300, L503.0106, L900.0098, L504.2610, L3100.2300, L500.4050, L501.5200, L503.6030, L506.0200, L100.0100 ####[facility] [address] [place], [address] CO2 [Moles/Vol] 23.2 mmol/L Normal 21.0-32.0 [facility] Comment on above: Performed By: #### L 503.6550, L501.2300, L503.0106, L900.0098, L504.2610, L3100.2300, L500.4050, L501.5200, L503.6030, L506.0200, L100.0100 ####[facility] [address] [place], [place], [phone] Creatinine [Mass/Vol] 0.71 mg/dL Normal 0.70-1.20 [facility] Comment on above: Performed By: #### L 503.6550, L501.2300, L503.0106, L900.0098, L504.2610, L3100.2300, L500.4050, L501.5200, L503.6030, L506.0200, L100.0100 ####[facility] [address] [place], [place], [phone](194) ECRCL 57.11 ml/min Normal 50-250 [facility] Comment on above: Performed By: #### L 503.6550, L501.2300, L503.0106, L900.0098, L504.2610, L3100.2300, L500.4050, L501.5200, L503.6030, L506.0200, L100.0100 ####[facility] [address] [place], [place], [phone](246) GAP 11 Normal 5-15 [facility] Comment on above: Performed By: #### L 503.6550, L501.2300, L503.0106, L900.0098, L504.2610, L3100.2300, L500.4050, L501.5200, L503.6030, L506.0200, L100.0100 ####[facility] [address] [place], [place], [phone] GFR/1.73 sq M.predicted among non-blacks MDRD (S/P/Bld) [Vol rate/Area] 88 mL/min/{1.73_m2} Normal >60 [facility] Comment on above: Result Comment: mL/m in/1.73m2 CKD-EPI Creatinine Equation (2020) Performed By: #### L 503.6550, L501.2300, L503.0106, L900.0098, L504.2610, L3100.2300, L500.4050, L501.5200, L503.6030, L506.0200, L100.0100 ####[facility] [address] [place], [address] Globulin (S) [Mass/Vol] 3.0 g/dL Normal 2.2-4.2 [facility] Comment on above: Performed By: #### L 503.6550, L501.2300, L503.0106, L900.0098, L504.2610, L3100.2300, L500.4050, L501.5200, L503.6030, L506.0200, L100.0100 ####[facility] [address] [place], [place], [phone](246) Glucose [Mass/Vol] 87 mg/dL Normal 70-99 [facility] Comment on above: Performed By: #### L 503.6550, L501.2300, L503.0106, L900.0098, L504.2610, L3100.2300, L500.4050, L501.5200, L503.6030, L506.0200, L100.0100 ####[facility] [address] [place], [place], [phone] Potassium [Moles/Vol] 3.9 mmol/L Normal 3.3-5.1 [facility] Comment on above: Performed By: #### L 503.6550, L501.2300, L503.0106, L900.0098, L504.2610, L3100.2300, L500.4050, L501.5200, L503.6030, L506.0200, L100.0100 ####[facility] [address] [place], [place], [phone](123) Sodium [Moles/Vol] 141 mmol/L Normal 133-145 [facility] Comment on above: Performed By: #### L 503.6550, L501.2300, L503.0106, L900.0098, L504.2610, L3100.2300, L500.4050, L501.5200, L503.6030, L506.0200, L100.0100 ####[facility] [address] [place], [address] T PROT 6.9 g/dL Normal 5.9-8.4 [facility] Comment on above: Performed By: #### L 503.6550, L501.2300, L503.0106, L900.0098, L504.2610, L3100.2300, L500.4050, L501.5200, L503.6030, L506.0200, L100.0100 ####[facility] [address] [place], [address] Urea nitrogen [Mass/Vol] 18 mg/dL Normal 4-19 [facility] Comment on above: Performed By: #### L 503.6550, L501.2300, L503.0106, L900.0098, L504.2610, L3100.2300, L500.4050, L501.5200, L503.6030, L506.0200, L100.0100 ####[facility] [address] [place], [address] Eosinophil percentageOrdered By: Maco Singh on 04-17-2024 Eosinophils/100 WBC (Bld) 2.3 % 0-5 [facility] Erythrocyte distribution wid th ratioOrdered By: Maco Singh on 04-17-2024 Erythrocyte distribution width (RBC) [Ratio] 15.7 % High 11.6-14.6 [facility] Erythrocyte distribution wid th standard deviationOrdered By: Maco Singh on 04-17-2024 Erythrocyte distribution width (RBC) [Entitic vol] 44.6 fL High 35.1-43.9 [facility] Estimation of creatinine chanel aranceOrdered By: Maco Singh on 04-17-2024 Estimated Creatinine Clearance Calc 57.11 ml/min 50-250 [facility] FOLATES,SERUM (FOLIC ACID)on 04-17-2024 FOLATES,SERUM 12.00 ng/mL Normal 4.60-34.80 [facility] Comment on above: Order Comment: N Performed By: #### L 503.6550, L501.2300, L503.0106, L900.0098, L504.2610, L3100.2300, L500.4050, L501.5200, L503.6030, L506.0200, L100.0100 #### [facility] [address] [place], [place], [phone] Ferritinon 04-17-2024 Ferritin [Mass/Vol] 111 ng/mL Normal 22-378 [facility] Comment on above: Performed By: #### L 503.6550, L501.2300, L503.0106, L900.0098, L504.2610, L3100.2300, L500.4050, L501.5200, L503.6030, L506.0200, L100.0100 ####[facility] [address] [place], [place], [phone] Folate [Mass/Vol]Ordered By: Maco Singh on 04-17-2024 Folate 12.00 ng/mL 4.60-34.80 [facility] Folate [Mass/volume] in Seru m or PlasmaOrdered By: Maco Singh on 04-17-2024 Folate [Mass/Vol] 12.00 ng/mL 4.60-34.80 [facility] GFR/1.73 sq M.predicted bola g non-blacks MDRD (S/P/Bld) [Vol rate/Area]Ordered By: Maco Singh on 04-17-2024 Estimated GFR (MDRD) Non-Af Amer 88 >60 [facility] Comment on above: mL/min/1.73m2 CKD-EP I Creatinine Equation (2020) Hematocrit Auto (Bld) [Volum e fraction]Ordered By: Maco Singh on 04-17-2024 Hematocrit (Bld) [Volume fraction] 41.3 % 37-47 [facility] Hemoglobin measurementOrdere d By: Maco Samantha on 04-17-2024 Hemoglobin (Bld) [Mass/Vol] 12.5 g/dL 12.0-15.0 [facility] Immature granulocytes/100 WB C Auto (Bld)Ordered By: Maco Singh on 04-17-2024 Immature granulocytes/100 WBC (Bld) 0.400 % 0.0-0.9 [facility] Comment on above: IG% - Immature Granu locytes (promyelocytes, myelocytes and metamyelocytes) > 1% indicates that a LEFT SHIFT is Present. Iron (Unsp spec) [Mass/Mass] Ordered By: Maco Singh on 04-17-2024 Iron [Mass/Vol] 54 ug/dL 50-170 [facility] Iron saturation [Mass fracti on]Ordered By: Maco Singh on 04-17-2024 Iron Saturation 19.0 % 15.0-55.0 [facility] Iron+Iron Binding Capacityon 04-17-2024 Iron [Mass/Vol] 54 ug/dL Normal 50-170 [facility] Comment on above: Performed By: #### L 503.6550, L501.2300, L503.0106, L900.0098, L504.2610, L3100.2300, L500.4050, L501.5200, L503.6030, L506.0200, L100.0100 ####[facility] [address] [place], [place], [phone] IRON SATURATION 19.0 Normal 15.0-55.0 [facility] Comment on above: Performed By: #### L 503.6550, L501.2300, L503.0106, L900.0098, L504.2610, L3100.2300, L500.4050, L501.5200, L503.6030, L506.0200, L100.0100 ####[facility] [address] [place], [place], [phone] TIBC 285 ug/dL Normal 250-450 [facility] Comment on above: Performed By: #### L 503.6550, L501.2300, L503.0106, L900.0098, L504.2610, L3100.2300, L500.4050, L501.5200, L503.6030, L506.0200, L100.0100 ####[facility] [address] [place], [place], [phone] UIBC 231 ug/dL Normal 228-428 [facility] Comment on above: Performed By: #### L 503.6550, L501.2300, L503.0106, L900.0098, L504.2610, L3100.2300, L500.4050, L501.5200, L503.6030, L506.0200, L100.0100 ####[facility] [address] [place], [place], [id number] L503.0106on 04-17-2024 Cobalamin (Vitamin B12) [Mass/Vol] 362 pg/mL Normal 180-914 [facility] Comment on above: Performed By: #### L 503.6550, L501.2300, L503.0106, L900.0098, L504.2610, L3100.2300, L500.4050, L501.5200, L503.6030, L506.0200, L100.0100 ####[facility] [address] [place], [place], [address] LDHon 04-17-2024 LDH 122 U/L Normal 84-246 [facility] Comment on above: Order Comment: 1 Performed By: #### L 503.6550, L501.2300, L503.0106, L900.0098, L504.2610, L3100.2300, L500.4050, L501.5200, L503.6030, L506.0200, L100.0100 ####[facility] [address] [place], [place], [phone] Laboratory - Chemistry and C hemistry - challengeOrdered By: [facility] on 04-17-2024 AST [Catalytic activity/Vol] 15 U/L <32 [facility] Lactate dehydrogenase (LDH) measurementOrdered By: [facility] on 04-17-2024 LDH [Catalytic activity/Vol] 122 U/L 84-246 [facility] Lymphocytes Auto (Unsp spec) [#/Vol]Ordered By: [facility] on 04-17-2024 Lymphocytes (Bld) [#/Vol] 1.32 10*3/uL 0.83-4.5 1 [facility] Lymphocytes/100 WBC Auto (Un sp spec)Ordered By: [facility] on 04-17-2024 Lymphocytes/100 WBC (Bld) 24.9 % 19-41 [facility] MCV (mean corpuscular volume ) determinationOrdered By: [facility] on 04-17-2024 MCV (RBC) [Entitic vol] 78.8 fL Low 81-99 [facility] Magnesiumon 04-17-2024 Magnesium [Mass/Vol] 1.7 mg/dL Normal 1.5-2.2 [facility] Comment on above: Performed By: #### L 503.6550, L501.2300, L503.0106, L900.0098, L504.2610, L3100.2300, L500.4050, L501.5200, L503.6030, L506.0200, L100.0100 ####[facility] [address] [place], [place], [phone] Magnesium (Unsp spec) [Mass/ Vol]Ordered By: [facility] on 04-17-2024 Magnesium [Mass/Vol] 1.7 mg/dL 1.5-2.2 [facility] Magnesium measurement (mass/ volume)Ordered By: [facility] on 04-17-2024 Magnesium (Unsp spec) [Mass/Vol] 1.7 mg/dL 1.5-2.2 [facility] Mean corpuscular hemoglobin (MCH) determinationOrdered By: Maco [facility] on 04-17-2024 MCH (RBC) [Entitic mass] 23.9 pg Low 27.0-32.0 [facility] Mean corpuscular hemoglobin concentration (MCHC) determinationOrdered By: Maco Singh on 04-17-2024 MCHC (RBC) [Mass/Vol] 30.3 g/dL Low 32-36 [facility] Mean platelet volume determi nationOrdered By: Maco Singh on 04-17-2024 Platelet mean volume (Bld) [Entitic vol] 9.8 fL 6.2-12.0 [facility] Miscellaneous procedureOrder ed By: Maco Singh on 04-17-2024 Miscellaneous Test Comment SEE SCANNED REPORT [facility] Monocyte percentageOrdered B y: Maco Singh on 04-17-2024 Monocytes/100 WBC (Bld) 11.1 % High 0-10 [facility] NATERAon 04-17-2024 NATURA SEE SCANNED REPORT Normal [facility] Comment on above: Performed By: #### L 503.6550, L501.2300, L503.0106, L900.0098, L504.2610, L3100.2300, L500.4050, L501.5200, L503.6030, L506.0200, L100.0100 ####[facility] [address] [place], [place], [address] Neutrophil percentageOrdered By: Maco Singh on 04-17-2024 Neutrophils/100 WBC (Bld) 60.7 % 47-70 [facility] No Panel InformationOrdered By: Maco Singh on 04-17-2024 Unsaturated Iron Binding Capacity 231 ug/dL 228-428 [facility] Nucleated red blood cell per centageOrdered By: Maco Samantha on 04-17-2024 Nucleated RBC/100 WBC (Bld) [Ratio] 0 % 0-5 [facility] Oncology Visit Reporton Oncology Visit Report [facility] [address] [place] [address] OFFICE VISIT Date of Service: 04/17/24 1416 MR#: [id number] Acct: [id number] Name: NGUYEN QUEEN Rep #: [id number] : 1945 From: Maco Singh MD Age/Sex: 78/F Location[place] [facility] Status: Signed HPI Subjective Date of Service 04/17/24 Chief Complaint F/u for anemia. History of Present Illness 78-year-old woman presented with right lower quadrant abdominal pain to [facility]. CT of the abdomen and pelvis on [...] and comes for follow up. Feels well. [facility] Medical History Colon cancer Bilateral [...] Products Adverse Reaction (Verified 04/17/24 14:18) Other [place] And Derivatives Adverse Reaction (Verified 04/17/24 14:18) [...] AST ALT (more content not included)... Normal [facility] Phosphoruson 04-17-2024 Phosphate [Mass/Vol] 3.7 mg/dL Normal 2.7-4.5 [facility] Comment on above: Performed By: #### L 503.6550, L501.2300, L503.0106, L900.0098, L504.2610, L3100.2300, L500.4050, L501.5200, L503.6030, L506.0200, L100.0100 ####[facility] [address] [place], [address] Platelet countOrdered By: Sandra Singh on 04-17-2024 Platelets (Bld) [#/Vol] 380 10*3/uL 150-450 [facility] Potassium (Unsp spec) [Mass/ Vol]Ordered By: Maco Singh on 04-17-2024 Potassium [Moles/Vol] 3.9 mmol/L 3.3-5.1 [facility] RBC Auto (Bld) [#/Vol]Ordere d By: Maco Singh on 04-17-2024 RBC (Bld) [#/Vol] 5.24 10*6/uL 4.2-5.4 [facility] Serum creatinine measurement (mass/volume)Ordered By: Maco Singh on 04-17-2024 Creatinine [Mass/Vol] 0.71 mg/dL 0.70-1.20 [facility] Serum globulin measurementOr dered By: Maco Singh on 04-17-2024 Globulin (S) [Mass/Vol] 3.0 g/dL 2.2-4.2 [facility] Serum glucose measurement (m ass/volume)Ordered By: Maco Singh on 04-17-2024 Glucose [Mass/Vol] 87 mg/dL 70-99 [facility] Serum or plasma alanine cuellar otransferase (ALT) measurementOrdered By: Maco Singh on 04-17-2024 ALT [Catalytic activity/Vol] 18 U/L <35 [facility] Serum or plasma albumin pj urement (mass/volume)Ordered By: Maco Singh on 04-17-2024 Albumin [Mass/Vol] 3.9 g/dL 3.4-4.8 [facility] Serum or plasma albumin/glob ulin mass ratioOrdered By: Maco Singh on 04-17-2024 Albumin/Globulin [Mass ratio] 1.3 {ratio} 0.9-2.4 [facility] Serum or plasma alkaline miriam sphatase measurementOrdered By: Maco Singh on 04-17-2024 ALP [Catalytic activity/Vol] 107 U/L High 35-104 [facility] Serum or plasma calcium pj urement (mass/volume)Ordered By: Maco Singh on 04-17-2024 Calcium [Mass/Vol] 9.3 mg/dL 7.6-11.0 [facility] Serum or plasma ferritin nunu surement (mass/volume)Ordered By: Maco Singh on 04-17-2024 Ferritin [Mass/Vol] 111 ng/mL 22-378 [facility] Serum or plasma urea nitroge n measurement (mass/volume)Ordered By: Maco Singh on 04-17-2024 Urea nitrogen [Mass/Vol] 18 mg/dL 4-19 [facility] Serum phosphorus measurement Ordered By: Maco Singh on 04-17-2024 Phosphorus Level 3.7 mg/dL 2.7-4.5 [facility] Sodium levelOrdered By: Trey Singh on 04-17-2024 Sodium [Moles/Vol] 141 mmol/L 133-145 [facility] Total proteinOrdered By: Uli Singh on 04-17-2024 Protein [Mass/Vol] 6.9 g/dL 5.9-8.4 [facility] Vitamin B12 ser/plasOrdered By: Maco Singh on 04-17-2024 Cobalamin (Vitamin B12) [Mass/Vol] 362 pg/mL 180-914 [facility] White blood cell (WBC) count Ordered By: Maco Singh on 04-17-2024 WBC (Bld) [#/Vol] 5.3 10*3/uL 4.4-11.0 [facility] CNOVon 02-14-2024 CNOV Office Visit (FAMPWS ) ----- NGUYEN QUEEN ([id number]) 1945 F Date Time Provider Department 02/14/24 10:20 [facility] During your visit today, we recorded the following information about you: Pulse Respiration Blood pressure Weight 89/minute 16/minute 118/72 73.2 kg Karson Woodward APRN.[employer] 02/14/2024 2:41 PM Signed Chief Complaint Patient [...] D-knows it is low but states at [facility] tried to give this to her and she can't tolerate it-overall just makes her very sick. Past medical history, appointments, medications, allergies reviewed. Previous Medical History PAST MEDICAL HISTORY Diagnosis Date Advance care planning 08/24/2021 [facility] Diabetes mellitus, type 2 (HCC) Environmental allergies Hyperlipidemia Hypothyroidism, unspecified Liver failure (HCC) 2004 unsure of cause Migraine headache onset age 7 Previous Surgical History PAST SURGICAL HISTORY Procedure Laterality Date BREAST BIOPSY NEEDLE LEFT 12/31/2014 x 2, Dr. Ronquillo COLONOSCOPY FLX DX W/COLLJ SPEC WHEN PFRMD 08/25/2003 adenomatous polyp and diverticulosis. [facility] COLONOSCOPY FLX DX W/COLLJ SPEC WHEN PFRMD 09/28/2006 No polyps found. 5 yr recall. [facility] COLONOSCOPY FLX DX W/COLLJ SPEC WHEN PFRMD 02/26/2018 Colonoscopy ESOPHAGOGASTRODUODENOSCOP Y TRANSORAL DIAGNOSTIC 08/31/2003 Unremarkable, negative biopsies. [facility] ESOPHAGOGASTRODUODENOSCOP Y TRANSORAL DIAGNOSTIC 02/26/2018 EGD LAPAROSCOPIC CHOLECYSTECTOMY 04/05/2022 REMV CATARACT EXTRACAP,INSERT LENS Bilateral TONSILLECTOMY HX Family History FAMILY HISTORY Adopted: Yes Patient Allergies ALLERGIES Allergen Reactions Benadryl [Diphenhyd* Swelling Penicillins Shortness of Breath Kmuqutv-Icb-Jzf Red* Contraindication-Medical Surgical History of liver failure [...] mg disintegratin (more content not included)... [facility] [place] Telephone ([facility]) ----- NGUYEN QUEEN ([id number]) 1945 F Date Time Provider Department 02/14/24 [...] PENICILLINS 05/17/2015 12 - Shortness of Breath LLATGAR-GUJ-FEG REDUCTASE INHIBIT*09/28/2015 15 - Contraindication-Medical Lester* Comments: [...] Encounter Status:Closed by KARSON WOODWARD on 02/14/[address] [facility] ----- NGUYEN QUEEN ([id number]) 1945 F Date Time Provider Department 02/14/24 KARSON WOODWARD During your visit today, we recorded the following information about you: Karson Woodward APRN.CORE FINISHER 02/14/2024 2:49 PM Signed Patient states that she usually gets her B12 shots and is due for one with our nurse Lani. For whatever reason she states she hasn't been able to schedule this appt. I'm not familiar with this, are we able to help her out? Thanks Karson Woodward APRN.CORE FINISHER Allergies As of Date: 02/14/2024 Noted Allergy Reaction BENADRYL (DIPHENHYDRAMINE HCL) 05/17/2015 7 - Swelling PENICILLINS 05/17/2015 12 - Shortness of Breath VGGNDOJ-PSS-EMF REDUCTASE INHIBIT*09/28/2015 15 - Contraindication-Medical Lester* Comments: History of liver failure Date Reviewed: 02/14/2024 Reviewed by: Karson Woodward APRN.CORE FINISHER - Fully Assessed Reason for Visit: B12 [...] KARSON WOODWARD on 03/05/24 Normal [facility] 25-hydroxyvitamin D3 [Mass/Vol] 20.6 ng/mL Low 31.0-80.0 [facility] Comment on above: Order Comment: Speci men Type: BLOOD SPECIMENOrdering Facility: [facility] Address: [address] [place] [address] Result Comment: Clas sification of 25 [place] Vitamin D status: Deficiency/Insufficiency: < or = 30 ng/ml. Sufficiency/Optimal Levels: 31-80 ng/mL Toxicity: > 100 ng/mL. Test performed by chemiluminescent immunoassay. Performed By: #### 1 989-3 ####[facility] LABCLIA [id number] [place] [address] [place] CBC panel Auto (Bld)on 02-03 Erythrocyte distribution width (RBC) [Ratio] 13.4 % Normal 11.5-15.0 [facility] Comment on above: Order Comment: Marcelina plascencia Type: BLOOD SPECIMENOrdering Facility: [facility] Address: [address] [place] [address] Performed By: #### 5 8410-2 ####[facility] HOSPITALWNCAYAD [id number] [place] [address] [place] Hematocrit (Bld) [Volume fraction] 35.0 % Low 36.0-46.0 [facility] Comment on above: Order Comment: Marcelina plascencia Type: BLOOD SPECIMENOrdering Facility: [facility] Address: [address] [place] [address] Performed By: #### 5 8410-2 ####[facility] HOSPITALNCAYAD [id number] [place] [address] [place] Hemoglobin (Bld) [Mass/Vol] 10.7 g/dL Low 11.5-15.5 [facility] Comment on above: Order Comment: Speci men Type: BLOOD SPECIMENOrdering Facility: [facility] Address: [address] [place] [address] Performed By: #### 5 8410-2 ####[facility] HOSPITALSOHAMLIA [id number] [place] [address] [place] MCH (RBC) [Entitic mass] 25.3 pg Low 26.0-34.0 [facility] Comment on above: Order Comment: Speci men Type: BLOOD SPECIMENOrdering Facility: [facility] Address: [address] [place] [address] Performed By: #### 5 8410-2 ####[facility]ITALNC[facility] [id number] [place] [address] [place] MCHC (RBC) [Mass/Vol] 30.6 g/dL Normal 30.5-36.0 [facility] Comment on above: Order Comment: Speci men Type: BLOOD SPECIMENOrdering Facility: [facility] Address: [address] [place] [address] Performed By: #### 5 8410-2 ####[facility] HOSPITALNCLIA [id number] [place] [address] [place] MCV (RBC) [Entitic vol] 82.7 fL Normal 80.0-100.0 C [facility] Comment on above: Order Comment: Speci men Type: BLOOD SPECIMENOrdering Facility: [facility] Address: [address] [place] [address] Performed By: #### 5 8410-2 ####[facility] HOSPITALNCLIA [id number] [place] [address] [place] Nucleated RBC (Bld) [#/Vol] 10*3/uL Normal <0.01 [facility] Comment on above: Order Comment: Speci men Type: BLOOD SPECIMENOrdering Facility: [facility] Address: [address] [place] [address] Performed By: #### 5 8410-2 ####[facility] RADHA DEVONTENCAYAD [id number] [place] [address] [place] Platelet mean volume (Bld) [Entitic vol] 9.1 fL Normal 9.0-12.7 [facility] Comment on above: Order Comment: Speci men Type: BLOOD SPECIMENOrdering Facility: [facility] Address: [address] [place] [address] Performed By: #### 5 8410-2 ####[facility] HOSPITALNCJANELL [id number] [place] [address] [place] Platelets (Bld) [#/Vol] 441 10*3/uL High 150-400 [facility] Comment on above: Order Comment: Speci men Type: BLOOD SPECIMENOrdering Facility: [facility] Address: [address] [place] [address] Performed By: #### 5 8410-2 ####[facility] HOSPITALNCLIA [id number] [place] [address] [place] RBC (Bld) [#/Vol] 4.23 10*6/uL Normal 3.90-5.20 [facility] Comment on above: Order Comment: Speci men Type: BLOOD SPECIMENOrdering Facility: [facility] Address: [address] [place] [address] Performed By: #### 5 8410-2 ####[facility] HOSPITALNCLIA [id number] [place] [address] [place] WBC (Bld) [#/Vol] 5.45 10*3/uL Normal 3.70-11.00 [facility] Comment on above: Order Comment: Speci men Type: BLOOD SPECIMENOrdering Facility: [facility] Address: [address] [place] [address] Performed By: #### 5 8410-2 ####[facility] RICKIESINGHWNCLIA [id number] [place] [address] [place] Comprehensive metabolic 2000 panelon 02-04-2024 Albumin [Mass/Vol] 3.3 g/dL Low 3.9-4.9 [facility] Comment on above: Order Comment: Speci men Type: BLOOD SPECIMENOrdering Facility: [facility] Address: [address] [place] [address] Performed By: #### 2 4323-8 ####[facility] HOSPITALWSOHAMLIA [id number] [place] [address] [place] ALP [Catalytic activity/Vol] 81 U/L Normal 34-123 [facility] Comment on above: Order Comment: Speci men Type: BLOOD SPECIMENOrdering Facility: [facility] Address: [address] [place] [address] Performed By: #### 2 4323-8 ####[facility] HOSPITALTATIA [id number] [address] [place] ALT [Catalytic activity/Vol] 9 U/L Normal 7-38 [facility] Comment on above: Order Comment: Speci men Type: BLOOD SPECIMENOrdering Facility: [facility] Address: [address] [place] [address] Performed By: #### 2 4323-8 ####[facility] MILLTOWNCLIA [id number] [place] [address] [place] Anion gap [Moles/Vol] 11 mmol/L Normal 8-15 [facility] Comment on above: Order Comment: Speci men Type: BLOOD SPECIMENOrdering Facility: [facility] Address: [address] [place] [address] Performed By: #### 2 4323-8 ####[facility] HOSPITALNCLIA [id number] [place] [address] [place] AST [Catalytic activity/Vol] 11 U/L Low 13-35 [facility] Comment on above: Order Comment: Speci men Type: BLOOD SPECIMENOrdering Facility: [facility] Address: [address] [place] [address] Performed By: #### 2 4323-8 ####[facility] HOSPITALWNCLIA [id number] [place] [address] [place] Bilirubin [Mass/Vol] 0.3 mg/dL Normal 0.2-1.3 [facility] Comment on above: Order Comment: Speci men Type: BLOOD SPECIMENOrdering Facility: [facility] Address: [address] [place] [address] Performed By: #### 2 4323-8 ####[facility] HOSPITALNCLIA [id number] [place] [address] [place] Calcium [Mass/Vol] 8.8 mg/dL Normal 8.5-10.2 [facility] Comment on above: Order Comment: Speci men Type: BLOOD SPECIMENOrdering Facility: [facility] Address: [address] [place] [address] Performed By: #### 2 4323-8 ####[facility] HOSPITALNCLIA [id number] [place] [address] [place] Chloride [Moles/Vol] 107 mmol/L Normal 98-107 [facility] Comment on above: Order Comment: Speci men Type: BLOOD SPECIMENOrdering Facility: [facility] Address: [address] [place] [address] Performed By: #### 2 4323-8 ####[facility] HOSPITALWNCLIA [id number] [place] [address] [place] CO2 [Moles/Vol] 21 mmol/L Low 22-30 [facility] Comment on above: Order Comment: Speci men Type: BLOOD SPECIMENOrdering Facility: [facility] Address: [address] [place] [address] Performed By: #### 2 4323-8 ####[facility] RICKIEWOODLAWNNCLI [id number] [place] [address] [place] Creatinine [Mass/Vol] 0.64 mg/dL Normal 0.58-0.96 [facility] Comment on above: Order Comment: Speci men Type: BLOOD SPECIMENOrdering Facility: [facility] Address: [address] [place] [address] Performed By: #### 2 4323-8 ####[facility]ITALNC[facility] [id number] [place] [address] [place] Creatinine and Glomerular filtration rate.predicted panel (S/P/Bld) 92 mL/min/1.73m??? Normal >=60 [facility] Comment on above: Order Comment: Speci men Type: BLOOD SPECIMENOrdering Facility: [facility] Address: [address] [place] [address] Result Comment: Sonya mated Glomerular Filtration Rate [...] actual GFR. Performed By: #### 2 4323-8 ####[facility] HOSPITALNCLIA [id number] [place] [address] [place] Glucose [Mass/Vol] 141 mg/dL High 74-99 [facility] Comment on above: Order Comment: Speci men Type: BLOOD SPECIMENOrdering Facility: [facility] Address: [address] [place] [address] Result Comment: The [place] Diabetes Association (ADA) provides guidance for cutoff [...] Standards of Medical Care in Diabetes 2016, [place] Diabetes Association. Diabetes Care. 2016.39(Suppl 1). Performed By: #### 2 4323-8 ####[facility] [id number] [place] [address] [place] Potassium [Moles/Vol] 3.9 mmol/L Normal 3.7-5.1 [facility] Comment on above: Order Comment: Speci men Type: BLOOD SPECIMENOrdering Facility: [facility] Address: [address] [place] [address] Performed By: #### 2 4323-8 ####[facility] [id number] [place] [address] [place] Protein [Mass/Vol] 6.1 g/dL Low 6.3-8.0 [facility] Comment on above: Order Comment: Speci men Type: BLOOD SPECIMENOrdering Facility: [facility] Address: [address] [place] [address] Performed By: #### 2 4323-8 ####[facility] [id number] [place] [address] [place] Sodium [Moles/Vol] 139 mmol/L Normal 136-144 [facility] Comment on above: Order Comment: Speci men Type: BLOOD SPECIMENOrdering Facility: [facility] Address: [address] [place] [address] Performed By: #### 2 4323-8 ####[facility] HOSPITALNCLIA [id number] [place] [address] [place] Urea nitrogen [Mass/Vol] 15 mg/dL Normal 7-21 [facility] Comment on above: Order Comment: Speci men Type: BLOOD SPECIMENOrdering Facility: [facility] Address: [address] [place] [address] Performed By: #### 2 4323-8 ####[facility] HOSPITALNCLIA [id number] [place] [id number] [place] Ferritin SerPl-mCncon 2023 Ferritin [Mass/Vol] 60.6 ng/mL Normal 14.7-205.1 [facility] Comment on above: Order Comment: Speci men Type: BLOOD SPECIMENOrdering Facility: [facility] Address: [address] [place] [address] Performed By: #### 2 132-9, 2276-4 ####[facility] LABCLIA [id number] [place] [address] [place] HbA1c (Bld)on 02-04-2024 Average glucose Estimated from glycated hemoglobin (Bld) [Mass/Vol] 111 mg/dL Normal [facility] Comment on above: Order Comment: Speci men Type: BLOOD SPECIMENOrdering Facility: [facility] Address: [address] [place] [address] Result Comment: eAG: (Estimated average glucose) is a calculated value from HgbA1c and is route sales representative of the average blood glucose level in the last 2-3 month period. Performed By: #### 5 5454-3 ####[facility] LABCLIA [id number] [place] [address] [place] HbA1c (Bld) [Mass fraction] 5.5 % Normal 4.3-5.6 [facility] Comment on above: Order Comment: Speci men Type: BLOOD SPECIMENOrdering Facility: [facility] Address: [address] [place] [address] Result Comment: Amer ican Diabetes Association guidelines indicate that patients with HgbA1c in the range 5.7-6.4% are at increased risk for development of diabetes, and intervention by lifestyle modification may be beneficial. HgbA1c greater or equal to 6.5% is considered diagnostic of diabetes. Performed By: #### 5 5454-3 ####[facility] LABCLIA [id number] [place] [address] [place] Iron and Iron binding capaci ty panelon 02-04-2024 Iron [Mass/Vol] 29 ug/dL Low 41-186 [facility] Comment on above: Order Comment: Speci men Type: BLOOD SPECIMENOrdering Facility: [facility] Address: [address] [place] [address] Performed By: #### 5 0190-8, 4-7, 3016-3 ####[facility] LABCLIA [id number] [place] [address] [place]#### 14129-9 ####[facility] LABCLIA [id number] [place] [id number] [facility] [id number] [place] [address] [place] Iron binding capacity [Mass/Vol] 251 ug/dL Normal 232-386 [facility] Comment on above: Order Comment: Speci men Type: BLOOD SPECIMENOrdering Facility: [facility] Address: [facility] [place] [address] Performed By: #### 5 0190-8, 3024-7, 3016-3 ####[facility] LABCLIA [id number] [place] [address] [place]#### 23391-4 ####[facility] LABCLIA [id number] [address] [address] [place] OF [facility] [id number] [place] [address] [place] Iron/TIBC [Molar ratio] 11.6 % Low 15.0-57.0 C [facility] Comment on above: Order Comment: Speci men Type: BLOOD SPECIMENOrdering Facility: [facility] Address: [address] [place] [address] Performed By: #### 5 0190-8, 3024-7, 3016-3 ####[facility] LABCLIA [id number] [place] [address] [place]#### 14925-3 ####[facility] LABCLIA [id number] [address] STATES OF [facility] [id number] [place] [address] [place] Lipid 1996 panelon 4 Cholesterol [Mass/Vol] 114 mg/dL Normal <200 [facility] Comment on above: Order Comment: Speci men Type: BLOOD SPECIMENOrdering Facility: [facility] Address: [address] [place] [address] Result Comment: <200 mg/dL, Desirable 200-239 mg/dL, Borderline high >239 mg/dL, High Performed By: #### 5 0190-8, 3024-7, 3016-3 ####[facility] LABCLIA [id number] [place] [address] [place]#### 92155-6 ####[facility] LABCL[facility] [id number] [address] STATES OF [facility] [id number] [place] [address] [place] Cholesterol in HDL [Mass/Vol] 44 mg/dL Normal >39 [facility] Comment on above: Order Comment: Speci men Type: BLOOD SPECIMENOrdering Facility: [facility] Address: [address] [place] [address] Result Comment: 40-5 9 mg/dL, Acceptable >59 mg/dL, High: Negative risk factor for coronary heart disease <40 mg/dL, Low: Positive risk factor for coronary heart disease Performed By: #### 5 0190-8, 3024-7, 3016-3 ####[facility] LABCL[facility] [id number] [place] [address] [place]#### 35121-0 ####[facility] LABCL[facility] [id number] [address] [id number] [place] [address] [place] Cholesterol in LDL [Mass/Vol] 52 mg/dL Normal <100 [facility] Comment on above: Order Comment: Speci men Type: BLOOD SPECIMENOrdering Facility: [facility] Address: [address] [place] [address] Result Comment: <100 mg/dL, Optimal 100-129 mg/dL, Near optimal/above optimal 130-159 mg/dL, Borderline high 160-189 mg/dL, High >189 mg/dL, Very high Secondary prevention optimal LDL Cholesterol levels are recommended to be < 70 mg/dL Performed By: #### 5 0190-8, 3024-7, 3016-3 ####[facility] LABCL[facility] [id number] [place] [address] [place]#### 31343-3 ####[facility] LABCLIA [id number] [address] OF [facility] [id number] [place] [address] [place] Cholesterol in LDL/Cholesterol in HDL [Mass ratio] 1.18 {ratio} Normal <2.54 [facility] Comment on above: Order Comment: Speci men Type: BLOOD SPECIMENOrdering Facility: [facility] Address: [facility] [place] [address] Result Comment: Idalia dean: 1. National Cholesterol Education Program ATP III Guideline At-A-Glance Quick Desk Reference: National Heart, Lung, and Blood [place]. National Institutes of Health. 2001: NIH Publication No. 01-3305. 2. An International Atherosclerosis Society position paper: global recommendations for the management of dyslipidemia: executive summary, Atherosclerosis. 2014: 232(2):410-413. Performed By: #### 5 0190-8, 3024-7, 3016-3 ####[facility] LABCL[facility] [id number] [place] [address] [place]#### 95673-0 ####[facility] LABCL[facility] [id number] [address] [id number] [place] [address] [place] Cholesterol in VLDL [Mass/Vol] 18 mg/dL Normal <30 [facility] Comment on above: Order Comment: Speci men Type: BLOOD SPECIMENOrdering Facility: [facility] Address: [address] [place] [address] Performed By: #### 5 0190-8, 4-7, 3016-3 ####[facility] LABCL[facility] [id number] [address] [place]#### 55660-7 ####[facility] [id number] [address] [id number] [place] [address] [place] Cholesterol non HDL [Mass/Vol] 70 mg/dL Normal <130 [facility] Comment on above: Order Comment: Speci men Type: BLOOD SPECIMENOrdering Facility: [facility] Address: [address] [place] [address] Result Comment: <130 mg/dL, Optimal 130-159 mg/dL, Near optimal/above optimal 160-189 mg/dL, Borderline high 190-219 mg/dL, High >219 mg/dL, Very high Secondary prevention optimal non HDL Cholesterol levels are recommended to be <100 mg/dL Performed By: #### 5 0190-8, 3023-, 3 ####[facility] LAB[facility] [id number] [place] [address] [place]#### 83622-3 ####[facility] [id number] [address] [id number] [place] [address] [place] Cholesterol.total/Cholest tobi in HDL [Mass ratio] 2.59 {ratio} Normal <5.10 [facility] Comment on above: Order Comment: Speci men Type: BLOOD SPECIMENOrdering Facility: [facility] Address: [address] [place] [address] Performed By: #### 5 0190-8, 3023-08, 3015-04 ####[facility] [id number] [place] [address] [place]#### 57744-5 ####[facility] [id number] [address] [id number] [address] [place] FASTING TIME 14 hrs Normal [facility] Comment on above: Order Comment: Speci men Type: BLOOD SPECIMENOrdering Facility: [facility] Address: [address] [place] [address] Performed By: #### 5 0190-8, 3023-08, 3 ####[facility] [id number] [place] [address] [place]#### 81932-6 ####[facility] LABCL[facility] [id number] [place] [address] [place] [facility] [id number] [place] [address] [place] Triglyceride [Mass/Vol] 89 mg/dL Normal <150 [facility] Comment on above: Order Comment: Speci men Type: BLOOD SPECIMENOrdering Facility: [facility] Address: [address] [place] [address] Result Comment: <150 mg/dL, Normal 150-199 mg/dL, Borderline high 200-499 mg/dL, High >499 mg/dL, Very high Performed By: #### 5 0190-8, 4-7, 3016-3 ####[facility] [id number] [place] [address] [place]#### 80456-9 ####[facility] [id number] [address] STATES OF [facility] [id number] [place] [address] [place] T4 Free SerPl-mCncon -23-2 024 Free T4 [Mass/Vol] 1.6 ng/dL Normal 0.9-1.7 [facility] Comment on above: Order Comment: Speci men Type: BLOOD SPECIMENOrdering Facility: [facility] Address: [address] [place] [id number] Performed By: #### 5 0190-8, 3024-7, 3016-3 ####[facility] [id number] [place] [address] [place]#### 96518-8 ####[facility] [id number] [address] [id number] [place] [address] [place] TSH SerPl-aCncon 02-04-2024 TSH Qn 0.025 m[IU]/L Low 0.270-4.20 0 [facility] Comment on above: Order Comment: Speci men Type: BLOOD SPECIMENOrdering Facility: [facility] Address: [address] [place] [address] Performed By: #### 5 0190-8, 3024-7, 3016-3 ####[facility] [id number] [address] [place]#### 20246-9 ####[facility] [id number] [address] [id number] [place] [address] [place] Vit B12 SerPl-ncon 024 Cobalamin (Vitamin B12) [Mass/Vol] 480 pg/mL Normal 232-1245 [facility] Comment on above: Order Comment: Speci men Type: BLOOD SPECIMENOrdering Facility: [facility] Address: [address] [place] [address] Performed By: #### 2 132-9, 2276-4 ####[facility] [id number] [address] [place] CNPJennifer 02-01-2024 CNPN Telephone (INTMWS) ----- NGUYEN [id number]) 1945 F Date Time Provider Department 02/01/24 [...] PENICILLINS 05/17/2015 12 - Shortness of Breath MQMMYNK-PGT-GWX REDUCTASE INHIBIT*09/28/2015 15 - Contraindication-Medical Lester* Comments: [...] [E03.9] Vitamin D deficiency [E55.9] Order(s):HEMOGLOBIN A1C [COAXR2R] Order #: [id number] FUTURE THYROID STIMULATING HORMONE [SQTSH] Order #: [id number] FUTURE T4 FREE/FREE THYROXINE [SQFT4] Order #: [id number] FUTURE VITAMIN D 25 HYDROXY [SQVITD] Order #: [id number] FUTURE IRON AND TIBC [SQIRON] Order #: [id number] FUTURE FERRITIN [SQFERR] Order #: [id number] FUTURE COMPLETE BLOOD COUNT [SQCBC] Order #: [id number] FUTURE COMPREHENSIVE METABOLIC PANEL [SQCMP] Order #: [id number] FUTURE LIPID PANEL BASIC [SQLIPB] Order #: [id number] FUTURE VITAMIN B12 [SQB12] Order #: [id number] FUTURE Prescriptions as of 02/01/2024 - ascorbic [...] (more content not included)... Normal [facility] CBC W/Diff, Automatedon - Absolute Lymph 1.40 X10 3/uL Normal 0.83-4.51 [facility] Comment on above: Performed By: #### L 3100.2300, L500.4050, L503.6030, L504.2610, L900.0098, L100.0100 #### [facility] [address] [place], [place], [id number] Absolute Neut 3.4 X10 3/uL Normal 2.0-7.7 [facility] Comment on above: Performed By: #### L 3100.2300, L500.4050, L503.6030, L504.2610, L900.0098, L100.0100 #### [facility] [address] [place], [address] Basophils/100 WBC (Bld) 0.7 % Normal 0-1 [facility] Comment on above: Performed By: #### L 3100.2300, L500.4050, L503.6030, L504.2610, L900.0098, L100.0100 #### [facility] [address] [place], [address] Eosinophils/100 WBC (Bld) 2.7 % Normal 0-5 [facility] Comment on above: Performed By: #### L 3100.2300, L500.4050, L503.6030, L504.2610, L900.0098, L100.0100 #### [facility] [address] [place], [address] Erythrocyte distribution width (RBC) [Ratio] 12.9 % Normal 11.6-14.6 [facility] Comment on above: Performed By: #### L 3100.2300, L500.4050, L503.6030, L504.2610, L900.0098, L100.0100 #### [facility] [address] [place], [address] Hematocrit (Bld) [Volume fraction] 35.9 % Low 37-47 [facility] Comment on above: Performed By: #### L 3100.2300, L500.4050, L503.6030, L504.2610, L900.0098, L100.0100 #### [facility] [address] [place], [address] Hemoglobin (Bld) [Mass/Vol] 10.7 g/dL Low 12.0-15.0 [facility] Comment on above: Performed By: #### L 3100.2300, L500.4050, L503.6030, L504.2610, L900.0098, L100.0100 #### [facility] [address] [place], [address] IG% 1.800 High 0.0-0.9 [facility] Comment on above: Result Comment: IG% - Immature Granulocytes (promyelocytes, myelocytes and metamyelocytes) > 1% indicates that a LEFT SHIFT is Present. Performed By: #### L 3100.2300, L500.4050, L503.6030, L504.2610, L900.0098, L100.0100 #### [facility] [address] [place], [address] Lymphocytes/100 WBC (Bld) 23.5 % Normal 19-41 [facility] Comment on above: Performed By: #### L 3100.2300, L500.4050, L503.6030, L504.2610, L900.0098, L100.0100 #### [facility] [address] [place], [address] MCH (RBC) [Entitic mass] 25.4 pg Low 27.0-32.0 [facility] Comment on above: Performed By: #### L 3100.2300, L500.4050, L503.6030, L504.2610, L900.0098, L100.0100 #### [facility] [address] [place], [address] MCHC (RBC) [Mass/Vol] 29.8 g/dL Low 32-36 [facility] Comment on above: Performed By: #### L 3100.2300, L500.4050, L503.6030, L504.2610, L900.0098, L100.0100 #### [facility] [address] [place], [address] MCV (RBC) [Entitic vol] 85.1 fL Normal 81-99 [facility] Comment on above: Performed By: #### L 3100.2300, L500.4050, L503.6030, L504.2610, L900.0098, L100.0100 #### [facility] [address] [place], [address] Monocytes/100 WBC (Bld) 14.4 % High 0-10 [facility] Comment on above: Performed By: #### L 3100.2300, L500.4050, L503.6030, L504.2610, L900.0098, L100.0100 #### [facility] [address] [place], [address] Neutrophils/100 WBC (Bld) 56.9 % Normal 47-70 [facility] Comment on above: Performed By: #### L 3100.2300, L500.4050, L503.6030, L504.2610, L900.0098, L100.0100 #### [facility] [address] [place], [address] Nucleated RBC (Bld) [#/Vol] 0 10*3/uL Normal 0-5 [facility] Comment on above: Performed By: #### L 3100.2300, L500.4050, L503.6030, L504.2610, L900.0098, L100.0100 #### [facility] [address] [place], [address] Platelet mean volume (Bld) [Entitic vol] 9.3 fL Normal 6.2-12.0 [facility] Comment on above: Performed By: #### L 3100.2300, L500.4050, L503.6030, L504.2610, L900.0098, L100.0100 #### [facility] [address] [place], [address] Platelets (Bld) [#/Vol] 469 10*3/uL High 150-450 [facility] Comment on above: Performed By: #### L 3100.2300, L500.4050, L503.6030, L504.2610, L900.0098, L100.0100 #### [facility] [address] [place], [address] RBC (Bld) [#/Vol] 4.22 10*6/uL Normal 4.2-5.4 [facility] Comment on above: Performed By: #### L 3100.2300, L500.4050, L503.6030, L504.2610, L900.0098, L100.0100 #### [facility] [address] [place], [address] RDW SD 39.8 fl Normal 35.1-43.9 [facility] Comment on above: Performed By: #### L 3100.2300, L500.4050, L503.6030, L504.2610, L900.0098, L100.0100 #### [facility] [address] [place], [address] WBC (Bld) [#/Vol] 6.0 10*3/uL Normal 4.4-11.0 [facility] Comment on above: Performed By: #### L 3100.2300, L500.4050, L503.6030, L504.2610, L900.0098, L100.0100 #### [facility] [address] [place], [address] Comprehensive Metabolic Prof sdon 01-24-2024 Albumin [Mass/Vol] 2.6 g/dL Low 3.2-5.0 [facility] Comment on above: Order Comment: N1 Performed By: #### L 3100.2300, L500.4050, L503.6030, L504.2610, L900.0098, L100.0100 #### [facility] [address] [place], [address] Albumin/Globulin [Mass ratio] 0.7 {ratio} Low 0.9-2.4 [facility] Comment on above: Order Comment: N1 Performed By: #### L 3100.2300, L500.4050, L503.6030, L504.2610, L900.0098, L100.0100 #### [facility] [address] [place], [address] ALK P 75 U/L Normal 45-117 [facility] Comment on above: Order Comment: N1 Performed By: #### L 3100.2300, L500.4050, L503.6030, L504.2610, L900.0098, L100.0100 #### [facility] [address] [place], [address] ALT [Catalytic activity/Vol] 19 U/L Normal 13-56 [facility] Comment on above: Order Comment: N1 Performed By: #### L 3100.2300, L500.4050, L503.6030, L504.2610, L900.0098, L100.0100 #### [facility] [address] [place], [address] AST [Catalytic activity/Vol] 14 U/L Low 15-37 [facility] Comment on above: Order Comment: N1 Performed By: #### L 3100.2300, L500.4050, L503.6030, L504.2610, L900.0098, L100.0100 #### [facility] [address] [place], [address] Bilirubin [Mass/Vol] 0.10 mg/dL Low 0.20-1.00 [facility] Comment on above: Order Comment: N1 Result Comment: For patients on eltrombopag therapy, use of Dimension Silex TBIL is not recommended. Performed By: #### L 3100.2300, L500.4050, L503.6030, L504.2610, L900.0098, L100.0100 #### [facility] [address] [place], [address] BUN/CRE 25.0 RATIO High 10-20 [facility] Comment on above: Order Comment: N1 Performed By: #### L 3100.2300, L500.4050, L503.6030, L504.2610, L900.0098, L100.0100 #### [facility] [address] [place], [address] CA,Total 9.0 mg/dL Normal 8.5-10.1 [facility] Comment on above: Order Comment: N1 Performed By: #### L 3100.2300, L500.4050, L503.6030, L504.2610, L900.0098, L100.0100 #### [facility] [address] [place], [address] Chloride [Moles/Vol] 109 mmol/L High 98-107 [facility] Comment on above: Order Comment: N1 Performed By: #### L 3100.2300, L500.4050, L503.6030, L504.2610, L900.0098, L100.0100 #### [facility] [address] [place], [address] CO2 [Moles/Vol] 26.0 mmol/L Normal 21.0-32.0 [facility] Comment on above: Order Comment: N1 Performed By: #### L 3100.2300, L500.4050, L503.6030, L504.2610, L900.0098, L100.0100 #### [facility] [address] [place], [address] Creatinine [Mass/Vol] 0.64 mg/dL Normal 0.55-1.02 [facility] Comment on above: Order Comment: N1 Result Comment: The validity of the calculated GFR GFRAA in patients over 70 years has not been determined. Clinical correlation is essential. Performed By: #### L 3100.2300, L500.4050, L503.6030, L504.2610, L900.0098, L100.0100 #### [facility] [address] [place], [address] ECRCL 57.15 ml/min Normal [facility] Comment on above: Order Comment: N1 Performed By: #### L 3100.2300, L500.4050, L503.6030, L504.2610, L900.0098, L100.0100 #### [facility] [address] [place], [address] EST GFR - AA 116 mL/min Normal >60 [facility] Comment on above: Order Comment: N1 Result Comment: Afri can Nigerien GFR Calc Performed By: #### L 3100.2300, L500.4050, L503.6030, L504.2610, L900.0098, L100.0100 #### [facility] [address] [place], [address] GAP 4 Low 5-15 [facility] Comment on above: Order Comment: N1 Performed By: #### L 3100.2300, L500.4050, L503.6030, L504.2610, L900.0098, L100.0100 #### [facility] [address] [place], [address] GFR/1.73 sq M.predicted among non-blacks MDRD (S/P/Bld) [Vol rate/Area] 96 mL/min/{1.73_m2} Normal >60 [facility] Comment on above: Order Comment: N1 Result Comment: Non- GFR Calc Performed By: #### L 3100.2300, L500.4050, L503.6030, L504.2610, L900.0098, L100.0100 #### [facility] [address] [place], [address] Globulin (S) [Mass/Vol] 3.9 g/dL Normal 2.2-4.2 [facility] Comment on above: Order Comment: N1 Performed By: #### L 3100.2300, L500.4050, L503.6030, L504.2610, L900.0098, L100.0100 #### [facility] [address] [place], [address] Glucose [Mass/Vol] 87 mg/dL Normal 74-106 [facility] Comment on above: Order Comment: N1 Performed By: #### L 3100.2300, L500.4050, L503.6030, L504.2610, L900.0098, L100.0100 #### [facility] [address] [place], [address] Potassium [Moles/Vol] 3.9 mmol/L Normal 3.5-5.1 [facility] Comment on above: Order Comment: N1 Performed By: #### L 3100.2300, L500.4050, L503.6030, L504.2610, L900.0098, L100.0100 #### [facility] [address] [place], [address] Sodium [Moles/Vol] 139 mmol/L Normal 136-145 [facility] Comment on above: Order Comment: N1 Performed By: #### L 3100.2300, L500.4050, L503.6030, L504.2610, L900.0098, L100.0100 #### [facility] [address] [place], [address] T PROT 6.5 g/dL Normal 6.4-8.2 [facility] Comment on above: Order Comment: N1 Performed By: #### L 3100.2300, L500.4050, L503.6030, L504.2610, L900.0098, L100.0100 #### [facility] [address] [place], [address] Urea nitrogen [Mass/Vol] 16 mg/dL Normal 7-18 [facility] Comment on above: Order Comment: N1 Performed By: #### L 3100.2300, L500.4050, L503.6030, L504.2610, L900.0098, L100.0100 #### [facility] [address] [place], [address] Estimated glomerular filtrat ion rate (GFR) AmericanOrdered By: Maco Singh on 01-24-2024 Estimated GFR (MDRD) Amer 116 mL/min >60 [facility] Comment on above: GFR Calc Ferritinon 01-24-2024 Ferritin [Mass/Vol] 62 ng/mL Normal 8-252 [facility] Comment on above: Order Comment: N1 Performed By: #### L 3100.2300, L500.4050, L503.6030, L504.2610, L900.0098, L100.0100 #### [facility] [address] [place], [address] Iron+Iron Binding Capacityon 01-24-2024 Iron [Mass/Vol] 29 ug/dL Low 50-170 [facility] Comment on above: Order Comment: N1 Performed By: #### L 3100.2300, L500.4050, L503.6030, L504.2610, L900.0098, L100.0100 #### [facility] [address] [place], [place], [address] IRON SATURATION 11.8 Low 15.0-55.0 [facility] Comment on above: Order Comment: N1 Performed By: #### L 3100.2300, L500.4050, L503.6030, L504.2610, L900.0098, L100.0100 #### [facility] [address] [place], [address] TIBC 246 ug/dL Low 250-450 [facility] Comment on above: Order Comment: N1 Performed By: #### L 3100.2300, L500.4050, L503.6030, L504.2610, L900.0098, L100.0100 #### [facility] [address] [place], [address] LDHon 01-24-2024 LDH 129 U/L Normal 84-246 [facility] Comment on above: Order Comment: N1 Performed By: #### L 3100.2300, L500.4050, L503.6030, L504.2610, L900.0098, L100.0100 #### [facility] [address] [place], [address] Oncology Visit Reporton 01-12 Oncology Visit Report [facility] [address] [place] [address] OFFICE VISIT Date of Service: 01/24/24 1436 MR#: [id number] Acct: [id number] Name: NGUYEN QUEEN Rep #: [id number] : 1945 From: Maco Singh MD Age/Sex: 78/F Location[place] [facility] Status: Signed HPI Subjective Date of Service 01/24/24 Chief Complaint F/u for Iron deficiency anemia. History of Present Illness 78-year-old woman presented with right lower quadrant abdominal pain to [facility]. CT of the abdomen and pelvis on [...] IV iron and comes for follow up. [facility] Medical History Colon cancer Bilateral [...] Products Adverse Reaction (Verified 01/24/24 14:39) Other [place] And Derivatives Adverse Reaction (Verified 01/24/24 14:39) [...] DIR 11/21/23 01/24/24 Rx a dose pack (Inspire DVT-PE Treat #74 tabs 30D Start) levothyroxine [...] all extrem (more content not included)... Normal [facility] Enterography Abd/Troy 01-21 Enterography Abd/Pel [facility] [address] [place] [address] Enterography Abd/Pel MR#: [id number] Acct: [id number] Name: NGUYEN QUEEN Rep #: [id number] : 1945 F 78 From: Santosh Martinez PCP: Dr. Jeff Simeon, DO Status: REG CLI Study: Enterography Abd/Pel Date of Exam: 01/22/24 Exam# [id number] Ordering Dr: Adriana Olmedo [id number] EXAM: MR ABDOMEN AND PELVIS WITHOUT INTRAVENOUS [...] CC: Dr. Jeff Simeon, ; BARRY Pearson Bag Inspector: Signed Normal [facility] Carcinoembryonic Antigenon 1 03-03-2023 CEA 10.7 ng/mL High 0.0-4.7 [facility] Comment on above: Result Comment: Nons mokers <3.9 Smokers <5.6 [facility] Electrochemiluminescence Immunoassay (ECLIA) Values obtained with different assay methods or kits cannot be used interchangeably. Results cannot be interpreted as absolute evidence of the presence or absence of malignant disease. Performed at: [employer] [facility] [id number] Patient Admitting Representative: Flako Araujo PhD, Phone: [phone] Performed By: #### L 3100.2300, L500.4050, L503.6030, L504.2610, L900.0098, L100.0100 #### [facility] [address] [place], [address] CBC W/Diff, Automatedon 12-13 Absolute Lymph 1.02 X10 3/uL Normal 0.83-4.51 [facility] Comment on above: Performed By: #### L 3100.2300, L500.4050, L503.6030, L504.2610, L900.0098, L100.0100 #### [facility] [address] [place], [place], [address] Absolute Neut 2.6 X10 3/uL Normal 2.0-7.7 [facility] Comment on above: Performed By: #### L 3100.2300, L500.4050, L503.6030, L504.2610, L900.0098, L100.0100 #### [facility] [address] [place], [address] Basophils/100 WBC (Bld) 0.6 % Normal 0-1 [facility] Comment on above: Performed By: #### L 3100.2300, L500.4050, L503.6030, L504.2610, L900.0098, L100.0100 #### [facility] [address] [place], [address] Eosinophils/100 WBC (Bld) 2.2 % Normal 0-5 [facility] Comment on above: Performed By: #### L 3100.2300, L500.4050, L503.6030, L504.2610, L900.0098, L100.0100 #### [facility] [address] [place], [address] Erythrocyte distribution width (RBC) [Ratio] 15.5 % High 11.6-14.6 [facility] Comment on above: Performed By: #### L 3100.2300, L500.4050, L503.6030, L504.2610, L900.0098, L100.0100 #### [facility] [address] [place], [address] Hematocrit (Bld) [Volume fraction] 30.1 % Low 37-47 [facility] Comment on above: Performed By: #### L 3100.2300, L500.4050, L503.6030, L504.2610, L900.0098, L100.0100 #### [facility] [address] [place], [address] Hemoglobin (Bld) [Mass/Vol] 9.1 g/dL Low 12.0-15.0 [facility] Comment on above: Performed By: #### L 3100.2300, L500.4050, L503.6030, L504.2610, L900.0098, L100.0100 #### [facility] [address] [place], [address] IG% 1.300 High 0.0-0.9 [facility] Comment on above: Result Comment: IG% - Immature Granulocytes (promyelocytes, myelocytes and metamyelocytes) > 1% indicates that a LEFT SHIFT is Present. Performed By: #### L 3100.2300, L500.4050, L503.6030, L504.2610, L900.0098, L100.0100 #### [facility] [address] [place], [address] Lymphocytes/100 WBC (Bld) 22.1 % Normal 19-41 [facility] Comment on above: Performed By: #### L 3100.2300, L500.4050, L503.6030, L504.2610, L900.0098, L100.0100 #### [facility] [address] [place], [address] MCH (RBC) [Entitic mass] 26.6 pg Low 27.0-32.0 [facility] Comment on above: Performed By: #### L 3100.2300, L500.4050, L503.6030, L504.2610, L900.0098, L100.0100 #### [facility] [address] [place], [address] MCHC (RBC) [Mass/Vol] 30.2 g/dL Low 32-36 [facility] Comment on above: Performed By: #### L 3100.2300, L500.4050, L503.6030, L504.2610, L900.0098, L100.0100 #### [facility] [address] [place], [address] MCV (RBC) [Entitic vol] 88.0 fL Normal 81-99 [facility] Comment on above: Performed By: #### L 3100.2300, L500.4050, L503.6030, L504.2610, L900.0098, L100.0100 #### [facility] [address] [place], [address] Monocytes/100 WBC (Bld) 17.7 % High 0-10 [facility] Comment on above: Performed By: #### L 3100.2300, L500.4050, L503.6030, L504.2610, L900.0098, L100.0100 #### [facility] [address] [place], [address] Neutrophils/100 WBC (Bld) 56.1 % Normal 47-70 [facility] Comment on above: Performed By: #### L 3100.2300, L500.4050, L503.6030, L504.2610, L900.0098, L100.0100 #### [facility] [address] [place], [address] Nucleated RBC (Bld) [#/Vol] 0 10*3/uL Normal 0-5 [facility] Comment on above: Performed By: #### L 3100.2300, L500.4050, L503.6030, L504.2610, L900.0098, L100.0100 #### [facility] [address] [place], [address] Platelet mean volume (Bld) [Entitic vol] 9.0 fL Normal 6.2-12.0 [facility] Comment on above: Performed By: #### L 3100.2300, L500.4050, L503.6030, L504.2610, L900.0098, L100.0100 #### [facility] [address] [place], [address] Platelets (Bld) [#/Vol] 442 10*3/uL Normal 150-450 [facility] Comment on above: Performed By: #### L 3100.2300, L500.4050, L503.6030, L504.2610, L900.0098, L100.0100 #### [facility] [address] [place], [address] RBC (Bld) [#/Vol] 3.42 10*6/uL Low 4.2-5.4 [facility] Comment on above: Performed By: #### L 3100.2300, L500.4050, L503.6030, L504.2610, L900.0098, L100.0100 #### [facility] [address] [place], [address] RDW SD 49.6 fl High 35.1-43.9 [facility] Comment on above: Performed By: #### L 3100.2300, L500.4050, L503.6030, L504.2610, L900.0098, L100.0100 #### [facility] [address] [place], [address] WBC (Bld) [#/Vol] 4.6 10*3/uL Normal 4.4-11.0 [facility] Comment on above: Performed By: #### L 3100.2300, L500.4050, L503.6030, L504.2610, L900.0098, L100.0100 #### [facility] [address] [place], [address] Comprehensive Metabolic Prof ilon 01-01-2024 Albumin [Mass/Vol] 2.3 g/dL Low 3.2-5.0 [facility] Comment on above: Order Comment: 1 Performed By: #### L 3100.2300, L500.4050, L503.6030, L504.2610, L900.0098, L100.0100 #### [facility] [address] [place], [address] Albumin/Globulin [Mass ratio] 0.6 {ratio} Low 0.9-2.4 [facility] Comment on above: Order Comment: 1 Performed By: #### L 3100.2300, L500.4050, L503.6030, L504.2610, L900.0098, L100.0100 #### [facility] [address] [place], [address] ALK P 67 U/L Normal 45-117 [facility] Comment on above: Order Comment: 1 Performed By: #### L 3100.2300, L500.4050, L503.6030, L504.2610, L900.0098, L100.0100 #### [facility] [address] [place], [address] ALT [Catalytic activity/Vol] 15 U/L Normal 13-56 [facility] Comment on above: Order Comment: 1 Performed By: #### L 3100.2300, L500.4050, L503.6030, L504.2610, L900.0098, L100.0100 #### [facility] [address] [place], [address] AST [Catalytic activity/Vol] 10 U/L Low 15-37 [facility] Comment on above: Order Comment: 1 Performed By: #### L 3100.2300, L500.4050, L503.6030, L504.2610, L900.0098, L100.0100 #### [facility] [address] [place], [address] Bilirubin [Mass/Vol] 0.10 mg/dL Low 0.20-1.00 [facility] Comment on above: Order Comment: 1 Result Comment: For patients on eltrombopag therapy, use of Dimension Silex TBIL is not recommended. Performed By: #### L 3100.2300, L500.4050, L503.6030, L504.2610, L900.0098, L100.0100 #### [facility] [address] [place], [address] BUN/CRE 25.3 RATIO High 10-20 [facility] Comment on above: Order Comment: 1 Performed By: #### L 3100.2300, L500.4050, L503.6030, L504.2610, L900.0098, L100.0100 #### [facility] [address] [place], [address] CA,Total 8.7 mg/dL Normal 8.5-10.1 [facility] Comment on above: Order Comment: 1 Performed By: #### L 3100.2300, L500.4050, L503.6030, L504.2610, L900.0098, L100.0100 #### [facility] [address] [place], [address] Chloride [Moles/Vol] 112 mmol/L High 98-107 [facility] Comment on above: Order Comment: 1 Performed By: #### L 3100.2300, L500.4050, L503.6030, L504.2610, L900.0098, L100.0100 #### [facility] [address] [place], [address] CO2 [Moles/Vol] 23.0 mmol/L Normal 21.0-32.0 [facility] Comment on above: Order Comment: 1 Performed By: #### L 3100.2300, L500.4050, L503.6030, L504.2610, L900.0098, L100.0100 #### [facility] [address] [place], [address] Creatinine [Mass/Vol] 0.59 mg/dL Normal 0.55-1.02 [facility] Comment on above: Order Comment: 1 Result Comment: The validity of the calculated GFR GFRAA in patients over 70 years has not been determined. Clinical correlation is essential. Performed By: #### L 3100.2300, L500.4050, L503.6030, L504.2610, L900.0098, L100.0100 #### [facility] [address] [place], [address] ECRCL 57.97 ml/min Normal [facility] Comment on above: Order Comment: 1 Performed By: #### L 3100.2300, L500.4050, L503.6030, L504.2610, L900.0098, L100.0100 #### [facility] [address] [place], [address] EST GFR - AA 127 mL/min Normal >60 [facility] Comment on above: Order Comment: 1 Result Comment: Afri can Nigerien GFR Calc Performed By: #### L 3100.2300, L500.4050, L503.6030, L504.2610, L900.0098, L100.0100 #### [facility] [address] [place], [address] GAP 5 Normal 5-15 [facility] Comment on above: Order Comment: 1 Performed By: #### L 3100.2300, L500.4050, L503.6030, L504.2610, L900.0098, L100.0100 #### [facility] [address] [place], [address] GFR/1.73 sq M.predicted among non-blacks MDRD (S/P/Bld) [Vol rate/Area] 105 mL/min/{1.73_m2} Normal >60 [facility] Comment on above: Order Comment: 1 Result Comment: Non- GFR Calc Performed By: #### L 3100.2300, L500.4050, L503.6030, L504.2610, L900.0098, L100.0100 #### [facility] [address] [place], [address] Globulin (S) [Mass/Vol] 3.6 g/dL Normal 2.2-4.2 [facility] Comment on above: Order Comment: 1 Performed By: #### L 3100.2300, L500.4050, L503.6030, L504.2610, L900.0098, L100.0100 #### [facility] [address] [place], [address] Glucose [Mass/Vol] 126 mg/dL High 74-106 [facility] Comment on above: Order Comment: 1 Result Comment: Fast ing Glucose result greater than or equal to 126 mg/dL suggests DIABETES MELLITUS per A.D.A. criteria. Performed By: #### L 3100.2300, L500.4050, L503.6030, L504.2610, L900.0098, L100.0100 #### [facility] [address] [place], [address] Potassium [Moles/Vol] 4.3 mmol/L Normal 3.5-5.1 [facility] Comment on above: Order Comment: 1 Performed By: #### L 3100.2300, L500.4050, L503.6030, L504.2610, L900.0098, L100.0100 #### [facility] [address] [place], [address] Sodium [Moles/Vol] 140 mmol/L Normal 136-145 [facility] Comment on above: Order Comment: 1 Performed By: #### L 3100.2300, L500.4050, L503.6030, L504.2610, L900.0098, L100.0100 #### [facility] [address] [place], [address] T PROT 5.9 g/dL Low 6.4-8.2 [facility] Comment on above: Order Comment: 1 Performed By: #### L 3100.2300, L500.4050, L503.6030, L504.2610, L900.0098, L100.0100 #### [facility] [address] [place], [address] Urea nitrogen [Mass/Vol] 15 mg/dL Normal 7-18 [facility] Comment on above: Order Comment: 1 Performed By: #### L 3100.2300, L500.4050, L503.6030, L504.2610, L900.0098, L100.0100 #### [facility] [address] [place], [address] Ferritinon 01-01-2024 Ferritin [Mass/Vol] 122 ng/mL Normal 8-252 [facility] Comment on above: Performed By: #### L 503.6550 ####[facility] [address] [place], [address] Iron+Iron Binding Capacityon 01-01-2024 Iron [Mass/Vol] 25 ug/dL Low 50-170 [facility] Comment on above: Order Comment: 1 Performed By: #### L 3100.2300, L500.4050, L503.6030, L504.2610, L900.0098, L100.0100 #### [facility] [address] [place], [address] IRON SATURATION 10.4 Low 15.0-55.0 [facility] Comment on above: Order Comment: 1 Performed By: #### L 3100.2300, L500.4050, L503.6030, L504.2610, L900.0098, L100.0100 #### [facility] [address] [place], [address] TIBC 240 ug/dL Low 250-450 [facility] Comment on above: Order Comment: 1 Performed By: #### L 3100.2300, L500.4050, L503.6030, L504.2610, L900.0098, L100.0100 #### [facility] [address] [place], [address] LDHon 01-01-2024 LDH 117 U/L Normal 84-246 [facility] Comment on above: Order Comment: 1 Performed By: #### L 3100.2300, L500.4050, L503.6030, L504.2610, L900.0098, L100.0100 #### [facility] [address] [place], [place], [address] NATERAon 01-01-2024 NATURA SEE SCANNED REPORT Normal [facility] Comment on above: Performed By: #### L 3100.2300, L500.4050, L503.6030, L504.2610, L900.0098, L100.0100 #### [facility] [address] [place], [address] ASCA IgG abOrdered By: Teodora pizarro Friend on 11-19-2023 Saccharomyces cerevisiae (Daquan)IgG 17 units 0-50 [facility] Comment on above: Negative: <45 Equivo urmila: 45-50 Positive: >50 Addendum DocumentOrdered By: Jarrell Crystal on 11-19-2023 Serum Immunofixation Comments Comment . [facility] Comment on above: Protein electrophore sis scan will follow via computer,mail, or farmer general delivery. Albumin Elph [Mass/Vol]Order ed By: Jarrell Crystal on 11-19-2023 Albumin [Mass/Vol] 2.0 g/dL Low 2.9-4.4 [facility] Alpha 1 globulin Elph [Mass/ Vol]Ordered By: Jarrell Crystal on 11-19-2023 Pmjgm-3-Xskrqdlur (LAURA) 0.3 g/dL 0.0-0.4 [facility] Zdxjs-5-Hpsccmlsw (LAURA) 1.1 g/dL High 0.4-1.0 [facility] Atypical perinuclear antineu trophil cytoplasmic antibodies measurementOrdered By: Jarrell Crystal on 11-19-2023 Atypical p-ANCA <1:20 titer Neg:<1:20 [facility] Comment on above: *Additional results available. Contact laboratory/see report*The atypical pANCA pattern has been observed in asignificant percentage of patients with ulcerative colitis,primary sclerosing cholangitis and autoimmune hepatitis.Performed at: - [facility] [id number] Director: Chary Cox MD, Phone: [phone] at: - [facility] [address] [id number] Director: Flako Araujo PhD, Phone: [phone] Beef IgE Qn (S)Ordered By: Rose Mary Crystal on 11-19-2023 Beef Allergen (RAST) <0.10 kU/L Class 0 [facility] Beta globulin Elph [Mass/Vol ]Ordered By: Jarrell Crystal on 11-19-2023 Beta-Globulins (LAURA) 0.8 g/dL 0.7-1.3 [facility] C-reactive protein measureme nt by high sensitivity methodOrdered By: Jarrell Crystal on 11-19-2023 C-Reactive Protein Extended Range 21.60 mg/L High 0.0-3.0 [facility] Comment on above: C-Reactive Protein ( CRP) provides useful information for thediagnosis, therapy and monitoring of inflammatory processesand associated diseases. For the evaluation of Relative Riskfor Cardiovascular Disease, a High Sensitivity CRP (HSCRP)should be ordered. Centromere B antibody assayO rdered By: Jarrell Crystal on 11-19-2023 Centromere B Antibody <0.2 AI 0.0-0.9 [facility] Chitobioside IgA IA QnOrdere d By: Jarrell Crystal on 11-19-2023 Chitobioside Carbohydrat (ACCA) IgA 13 units 0-90 [facility] Comment on above: Negative: <80 Equivo urmila: 80-90 Positive: >90 Chitobioside IgA antibody as sayOrdered By: Jarrell Crystal on 11-19-2023 Chitobioside IgA IA Qn 13 units 0-90 [facility] Comment on above: Negative: <80 Equivo urmila: 80-90 Positive: >90 Chocolate IgE Qn (S)Ordered By: Jarrell Crystal on 11-19-2023 Chocolate Allergen (RAST) <0.10 kU/L Class 0 [facility] Chromatin antibody assayOrde red By: Jarrell Crystal on 11-19-2023 Antichromatin Antibodies <0.2 AI 0.0-0.9 [facility] Codfish IgE Qn (S)Ordered By : Jarrell Crystal on 11-19-2023 Codfish Allergen (RAST) <0.10 kU/L Class 0 [facility] Lenox IgE Qn (S)Ordered By: Rose Mary Crystal on 11-19-2023 Lenox Allergen (RAST) <0.10 kU/L Class 0 [facility] Cow milk IgE Qn (S)Ordered B y: Jarrell Crystal on 11-19-2023 Cow's Milk Allergen <0.10 kU/L Class 0 [facility] DNA double strand Ab Qn (S)O rdered By: Jarrell Crystal on 11-19-2023 Anti-Double Strand DNA Antibody 2 IU/mL 0-9 [facility] Comment on above: Negative <5 Equivoca l 5 - 9 Positive >9 Deamidated gliadin IgA antib emma assayOrdered By: Jarrell Crystal on 11-19-2023 Anti-Gliadin IgA Antibody 3 units 0-19 [facility] Comment on above: Negative 0 - 19 Weak Positive 20 - 30 Moderate to Strong Positive >30 Deamidated gliadin IgG antib emma assayOrdered By: Jarrell Crystal on 11-19-2023 Anti-Gliadin IgG Antibody 2 units 0-19 [facility] Comment on above: Negative 0 - 19 Weak Positive 20 - 30 Moderate to Strong Positive >30 Endomysial IgA antibody assa yOrdered By: Jarrell Crystal on 11-19-2023 Endomysial IgA Antibody Negative Negative [facility] Erythrocyte sedimentation ra teOrdered By: Jarrell Crystal on 11-19-2023 ESR (Bld) [Velocity] 33 mm/h High 0-30 [facility] Gamma globulin Elph [Mass/Vo l]Ordered By: Jarrell Crystal on 11-19-2023 Gamma Globulins (LAURA) 1.1 g/dL 0.4-1.8 [facility] IgA [Mass/Vol]Ordered By: Ra lisa Crystal on 11-19-2023 Immunoglobulin A 269 mg/dL 64-422 [facility] IgEOrdered By: Jarrell martinez on 11-19-2023 IgE 6 IU/mL 6-495 [facility] Immunoglobulin E 6 IU/mL 6-495 [facility] IgG [Mass/Vol]Ordered By: Ra lisa Crystal on 11-19-2023 Immunoglobulin G 1155 mg/dL 586-1602 [facility] Immunoglobulin M measurement Ordered By: Jarrell Crystal on 11-19-2023 Immunoglobulin M 97 mg/dL 26-217 [facility] Interpretation IEP [Interp]O rdered By: Jarrell Crystal on 11-19-2023 Immunofixation Screen Comment . [facility] Comment on above: No monoclonality det ected. Interpretation of serum or p lasma protein pattern by immunofixation (narrative resultOrdered By: Jarrell Crystal on 11-19-2023 Protein Fractions Immunofixation Vishnu [Interp] Not Observed g/dL Not Observed [facility] Sandra-1 antibody assayOrdered B y: Jarrell Crystal on 11-19-2023 SANDRA-1 Antibody <0.2 AI 0.0-0.9 [facility] - Miscellaneous t estsOrdered By: Jarrell Crystal on 11-19-2023 Laboratory comment Vishnu (Report) Comment . [facility] Comment on above: Pattern is not sugge stive of Inflammatory Bowel Disease Service comment (Unsp spec) [Interp] Comment . [facility] Comment on above: Levels of Specific I [...] on 11-19-2023 IBD Serology Comment Comment . [facility] Comment on above: Pattern is not sugge stive of Inflammatory Bowel Disease Laminaribioside IgG IA QnOrd ered By: Jarrell Crystal on 11-19-2023 Laminaribioside Carbohyd (ALCA) IgG 7 units 0-60 [facility] Comment on above: Negative:<55 Equivoc al: 55-60 Positive: >60 Laminaribioside carbohydrate IgG antibody assayOrdered By: Jarrell Crystal on 11-19-2023 Laminaribioside IgG IA Qn 7 units 0-60 [facility] Comment on above: Negative:<55 Equivoc al: 55-60 Positive: >60 Mannobioside IgG IA QnOrdere d By: Jarrell Crystal on 11-19-2023 Mannobioside Carbohydrat (AMCA) IgG 23 units 0-100 [facility] Comment on above: Negative: <90 Equivo urmila: 90-100 Positive: >100 This test was developed and its performance characteristics determined by [employer]. It has not been cleared or approved by the Food and Drug Administration. The FDA has determined that such clearance or approval is not necessary. Neutrophil cytoplasmic Ab.cl assic Qn (S)Ordered By: Jarrell Crystal on 11-19-2023 Cytoplasmic ANCA (c-ANCA) Antibody <1:20 titer Neg:<1:20 [facility] Neutrophil cytoplasmic Ab.pe rinuclear IF (S) [Titer]Ordered By: Jarrell Crystal on 11-19-2023 Perinuclear ANCA (p-ANCA) Antibody <1:20 titer Neg:<1:20 [facility] Comment on above: The presence of posi [...] only by EIA. Ref. AM J Clin [id number];111:507-513. No Panel InformationOrdered By: Jarrell Crystal on 11-19-2023 Addendum Document Comment . [facility] Comment on above: Protein electrophore sis scan will follow via computer,mail, or farmer general delivery. Tissue Transglutaminase IgG Ab 4 U/mL 0-5 [facility] Comment on above: Negative 0 - 5 Weak Positive 6 - 9 Positive >9 Peanut IgE Qn (S)Ordered By: Jarrell Crystal on 11-19-2023 Peanut Allergen (RAST) <0.10 kU/L Class 0 [facility] Pork IgE Qn (S)Ordered By: Rose Mary Crystal on 11-19-2023 Pork Allergen (RAST) <0.10 kU/L Class 0 [facility] Protein Fractions Immunofixa tion Vishnu [Interp]Ordered By: Jarrell Crystal on 11-19-2023 M-Shady (LAURA) Not Observed g/dL Not Observed [facility] WATER VALVE REPAIRER abOrdered By: Jarrell Ng iend on 11-19-2023 WATER VALVE REPAIRER Antibody <0.2 AI 0.0-0.9 [facility] SCL-70 extractable nuclear A b Qn (S)Ordered By: Jarrell Crystal on 11-19-2023 Scl-70 (Scleroderma) Antibody <0.2 AI 0.0-0.9 [facility] SS-A IgG antibody assayOrder ed By: Jarrell Crystal on 11-19-2023 SS-A/Ro IgG Antibody < 0.2 AI 0.0-0.9 [facility] SS-B IgG antibody assayOrder ed By: Jarrell Crystal on 11-19-2023 SS-B/La IgG Antibody < 0.2 AI 0.0-0.9 [facility] Lohn IgE Qn (S)Ordered By: Jarrell Crystal on 11-19-2023 Lohn Allergen IgE Antibody <0.10 kU/L Class 0 [facility] Serum DNA double strand anti body assay (units/volume)Ordered By: Jarrell Crystal on 11-19-2023 DNA double strand Ab Qn (S) 2 [IU]/mL 0-9 [facility] Comment on above: Negative <5 Equivoca l 5 - 9 Positive >9 Serum Scl-70 antibody assay (units/volume)Ordered By: Jarrell Crystal on 11-19-2023 SCL-70 extractable nuclear Ab Qn (S) <0.2 AI 0.0-0.9 [facility] Serum albumin/globulin ratio Ordered By: Jarrell Crystal on 11-19-2023 Albumin/Globulin (LAURA) 0.7 0.7-1.7 [facility] Serum beef IgE antibody assa y (units/volume)Ordered By: Jarrell Crystal on 11-19-2023 Beef IgE Qn (S) <0.10 kU/L Class 0 [facility] Serum classic neutrophil cyt oplasmic antibody assay (units/volume)Ordered By: Jarrell Crystal on 11-19-2023 Neutrophil cytoplasmic Ab.classic Qn (S) <1:20 titer Neg:<1:20 [facility] Serum codfish IgE antibody a ssay (units/volume)Ordered By: Jarrell Crystal on 11-19-2023 Codfish IgE Qn (S) <0.10 kU/L Class 0 [facility] Serum corn IgE antibody assa y (units/volume)Ordered By: Jarrell Crystal on 11-19-2023 Lenox IgE Qn (S) <0.10 kU/L Class 0 [facility] Serum cow milk IgE antibody assay (units/volume)Ordered By: Jarrell Crystal on 11-19-2023 Cow milk IgE Qn (S) <0.10 kU/L Class 0 [facility] Serum mussel specific IgE an tibody assayOrdered By: Jarrell Crystal on 11-19-2023 Mussel Allergen IgE Antibody <0.10 kU/L Class 0 [facility] Serum or plasma IgA measurem ent (mass/volume)Ordered By: Jarrell Crystal on 11-19-2023 IgA [Mass/Vol] 269 mg/dL 64-422 [facility] Serum or plasma IgG measurem ent (mass/volume)Ordered By: Jarrell Crystal on 11-19-2023 IgG [Mass/Vol] 1155 mg/dL 586-1602 [facility] Serum or plasma alpha 1 glob ulin measurement by electrophoresis (mass/volume)Ordered By: Jarrell Crystal on 11-19-2023 Alpha 1 globulin Elph [Mass/Vol] 0.3 g/dL 0.0-0.4 [facility] Alpha 1 globulin Elph [Mass/Vol] 1.1 g/dL High 0.4-1.0 [facility] Serum or plasma beta globuli n measurement by electrophoresis (mass/volume)Ordered By: Jarrell Crystal on 11-19-2023 Beta globulin Elph [Mass/Vol] 0.8 g/dL 0.7-1.3 [facility] Serum or plasma gamma globul in measurement by electrophoresis (mass/volume)Ordered By: Jarrell Crystal on 11-19-2023 Gamma globulin Elph [Mass/Vol] 1.1 g/dL 0.4-1.8 [facility] Serum or plasma immunoelectr ophoresis interpretation (nominal result)Ordered By: Jarrell Crystal on 11-19-2023 Interpretation IEP [Interp] Comment . [facility] Comment on above: No monoclonality det ected. Serum or plasma mannobioside IgG antibody assay by immunoassay (units/volume)Ordered By: Jarrell Crystal on 11-19-2023 Mannobioside IgG IA Qn 23 units 0-100 [facility] Comment on above: Negative: <90 Equivo urmila: 90-100 Positive: >100 This test was developed and its performance characteristics determined by [facility]. It has not been cleared or approved by the Food and Drug Administration. The FDA has determined that such clearance or approval is not necessary. Serum or plasma protein pj urement (mass/volume)Ordered By: Jarrell Crystal on 11-19-2023 Protein [Mass/Vol] 5.3 g/dL Low 6.0-8.5 [facility] Serum peanut IgE antibody as say (units/volume)Ordered By: Jarrell Crystal on 11-19-2023 Peanut IgE Qn (S) <0.10 kU/L Class 0 [facility] Serum perinuclear neutrophil cytoplasmic antibody titer by immunofluorescenceOrdered By: Jarrell Crystal on 11-19-2023 Neutrophil cytoplasmic Ab.perinuclear IF (S) [Titer] <1:20 titer Neg:<1:20 [facility] Comment on above: The presence of posi [...] only by EIA. Ref. AM J Clin [id number];111:507-513. Serum pork IgE antibody assa y (units/volume)Ordered By: Jarrell Crystal on 11-19-2023 Pork IgE Qn (S) <0.10 kU/L Class 0 [facility] Serum salmon IgE antibody as say (units/volume)Ordered By: Jarrell Crystal on 11-19-2023 Lohn IgE Qn (S) <0.10 kU/L Class 0 [facility] Serum shrimp specific IgE an tibody assayOrdered By: Jarrell Crystal on 11-19-2023 Shrimp Allergen <0.10 kU/L Class 0 [facility] Serum soybean IgE antibody a ssay (units/volume)Ordered By: Jarrell Crystal on 11-19-2023 Soybean IgE Qn (S) <0.10 kU/L Class 0 [facility] Serum tissue transglutaminas e (tTG) IgA antibody assay (units/volume)Ordered By: Jarrell Crystal on 11-19-2023 tTG IgA Qn (S) <2 U/mL 0-3 [facility] Comment on above: Negative 0 - 3 Weak Positive 4 - 10 Positive >10 Tissue Transglutaminase (tTG) has been identified as the endomysial antigen. Studies have demonstr- ated that endomysial IgA antibodies have over 99% specificity for gluten sensitive enteropathy. Serum tuna IgE antibody assa y (units/volume)Ordered By: Jarrell Crystal on 11-19-2023 Tuna IgE Qn (S) <0.10 kU/L Class 0 [facility] Serum wheat IgE antibody ass ay (units/volume)Ordered By: Jarrell Crystal on 11-19-2023 Wheat IgE Qn (S) <0.10 kU/L Class 0 [facility] Serum whole egg IgE antibody assay (units/volume)Ordered By: Jarrell Crystal on 11-19-2023 Whole Egg IgE Qn (S) <0.10 kU/L Class 0 [facility] Comment on above: Performed at: - [facility] [address] [id number] Director: Flako Araujo PhD, Phone: [phone] at: [facility] [id number] Director: Chary Cox MD, Phone: [phone] Service comment (Unsp spec) [Interp]Ordered By: Jarrell Crystal on 11-19-2023 RAST Comment Comment . [facility] Comment on above: Levels of Specific I [...] on 11-19-2023 SM Antibody <0.2 AI 0.0-0.9 [facility] Soybean IgE Qn (S)Ordered By : Jarrell Crystal on 11-19-2023 Soybean Allergen (RAST) <0.10 kU/L Class 0 [facility] Tuna IgE Qn (S)Ordered By: Rose Mary Crystal on 11-19-2023 Tuna Allergen (RAST) <0.10 kU/L Class 0 [facility] Wheat IgE Qn (S)Ordered By: Jarrell Crystal on 11-19-2023 Wheat Allergen (RAST) <0.10 kU/L Class 0 [facility] Whole Egg IgE Qn (S)Ordered By: Jarrell Crystal on 11-19-2023 Egg Whole Allergen <0.10 kU/L Class 0 [facility] Comment on above: Performed at: - [facility] [id number] [place], [place] [id number] Director: Flako Araujo PhD, Phone: [phone] at: - [facility] [id number] Director: Chary Cox MD, Phone: [phone] tTG IgA Qn (S)Ordered By: Ra lisa Crystal on 11-19-2023 Tissue Transglutaminase IgA Ab <2 U/mL 0-3 [facility] Comment on above: Negative 0 - 3 Weak Positive 4 - 10 Positive >10 Tissue Transglutaminase (tTG) has been identified as the endomysial antigen. Studies have demonstr- ated that endomysial IgA antibodies have over 99% specificity for gluten sensitive enteropathy. C. difficile DNA MARCIA+probe Q l (Unsp spec)Ordered By: Maco Singh on 09-26-2023 Clostridioides difficile (PCR) [facility] Calprotectin stoolOrdered By : Maco Singh on 09-26-2023 Calprotectin stool 1110 ug/g High 0-120 [facility] Comment on above: Results verified b y repeat testingConcentration Interpretation Follow-Up< 5 - 50 ug/g Normal None>50 -120 ug/g Borderline Re-evaluate in 4-6 weeks >120 ug/g Abnormal Repeat as clinically indicatedPerformed at: - [facility] [id number] Director: Chary Cox MD, Phone: [phone] Stool Calprotectin 1110 ug/g High 0-120 [facility] Comment on above: Results verified b y repeat testingConcentration Interpretation Follow-Up< 5 - 50 ug/g Normal None>50 -120 ug/g Borderline Re-evaluate in 4-6 weeks >120 ug/g Abnormal Repeat as clinically indicatedPerformed at: - [facility] [id number] Director: Chary Cox MD, Phone: [phone] Clostridium difficile detect ion by polymerase chain reactionOrdered By: Maco Singh on 09-26-2023 C. difficile DNA MARCIA+probe Ql (Unsp spec) [facility] Lactoferrin IA Ql (Stl)Order ed By: Maco Singh on 09-26-2023 Stool Lactoferrin [facility] Lower GI hemoglobin IA Ql (S tl)Ordered By: Maco Singh on 09-26-2023 Stool Occult Blood (SU) Positive Abnormal [facility] Ova and parasitesOrdered By: Maco Singh on 09-26-2023 Ova and Parasites [facility] Stool gastrointestinal hemog lobin detection by immunologic methodOrdered By: Maco Singh on 09-26-2023 Lower GI hemoglobin IA Ql (Stl) Positive Abnormal [facility] Stool lactoferrin detection by immunoassayOrdered By: Maco Singh on 09-26-2023 Lactoferrin IA Ql (Stl) [facility] Blood band neutrophil count as percentage of total leukocytesOrdered By: Maco Singh on 09-24-2023 Band form neutrophils/100 WBC (Bld) 11 % High 0-5 [facility] Blood basophils/100 leukocyt esOrdered By: Maco Singh on 09-24-2023 Basophils/100 WBC (Bld) 2 % High 0-1 [facility] Blood eosinophils/100 leukoc ytesOrdered By: Maco Singh on 09-24-2023 Eosinophils/100 WBC (Bld) 13 % High 0-5 [facility] Blood lymphocytes/100 leukoc ytesOrdered By: Maco Singh on 09-24-2023 Lymphocytes/100 WBC (Bld) 24 % 19-41 [facility] Blood metamyelocytes/100 jerald kocytesOrdered By: Maco Singh on 09-24-2023 Metamyelocytes/100 WBC (Bld) 3 % High 0-1 [facility] Blood monocytes/100 leukocyt esOrdered By: Maco Singh on 09-24-2023 Monocytes/100 WBC (Bld) 14 % High 0-10 [facility] Blood promyelocytes/100 leuk ocytesOrdered By: Maco Singh on 09-24-2023 Promyelocytes/100 WBC (Bld) 1 % High 0-0 [facility] Blood segmented neutrophils/ 100 leukocytesOrdered By: Maco Singh on 09-24-2023 Segmented neutrophils/100 WBC (Bld) 32 % Low 47-70 [facility] Cells counted Molgen (Bld/Ti ss) [#]Ordered By: Maco Singh on 09-24-2023 Differential Total Cells Counted 100 MANUAL DIFF [facility] Erythrocyte morphology asses smentOrdered By: Maco Singh on 09-24-2023 RBC morphology finding Nom (Bld) NORM C+C NORMAL NORM C&C [facility] Pathologist review Vishnu (Unsp spec) [Interp]Ordered By: Maco Singh on 09-24-2023 Differential Pathologist's Review Reviewed [facility] Comment on above: Previous reported re sult: Kelle suggs Edited by: VADIM on 09/25/23:1528Neutrophilic left shift.MICROCYTOSISClinical correlation necessary.Charles Steinberg M.D. 09/25/23 AMENDED REPORT 09/25/23 1528 PATH REV previously reported as: Kelle suggs Platelet estimateOrdered By: Maco Singh on 09-24-2023 Platelets LM Ql (Bld) ADEQUATE ADEQ [facility] Platelets LM Ql (Bld)Ordered By: Maco Singh on 09-24-2023 Platelet Estimate ADEQUATE [facility] Promyelocytes/100 WBC (Bld)O rdered By: Maco Singh on 09-24-2023 Promyelocytes % 1 % High 0-0 [facility] RBC morphology finding Nom ( Bld)Ordered By: Maco Singh on 09-24-2023 Red Blood Cell Morphology NORM C+C NORMAL NORM C&C [facility] Review by pathologistOrdered By: Maco Singh on 09-24-2023 Pathologist review Vishnu (Unsp spec) [Interp] Reviewed [facility] Comment on above: Previous reported re sult: Kelle suggs Edited by: VADIM on 09/25/23:1528Neutrophilic left shift.MICROCYTOSISClinical correlation necessary.Charles Steinberg M.D. 09/25/23 AMENDED REPORT 09/25/23 1528 PATH REV previously reported as: Kelle suggs Segmented neutrophils/100 WB C (Bld)Ordered By: Maco Singh on 09-24-2023 Neutrophils/100 WBC (Bld) 32 % Low 47-70 [facility] Total cell countOrdered By: Maco Singh on 09-24-2023 Cells counted Molgen (Bld/Tiss) [#] 100 MANUAL DIFF [facility] Basophil percentageOrdered B y: Flako Chavarria on 04-11-2023 Hemoglobin (Bld) [Mass/Vol] 11.0 g/dL 12.0-15.0 [facility] WBC (Bld) [#/Vol] 8.9 10*3/uL 4.4-11.0 [facility] Determination of erythrocyte mean corpuscular volume (MCV)Ordered By: Flako Chavarria on 04-11-2023 MCV (RBC) [Entitic vol] 78.2 fL 81-99 [facility] Erythrocyte distribution wid th ratioOrdered By: Flako Chavarria on 04-11-2023 Erythrocyte distribution width (RBC) [Ratio] 19.3 % 11.6-14.6 [facility] Erythrocyte distribution wid th standard deviationOrdered By: Flako Chavarria on 04-11-2023 Erythrocyte distribution width (RBC) [Entitic vol] 53.8 fL 35.1-43.9 [facility] Hematocrit Auto (Bld) [Volum e fraction]Ordered By: Flako Chavarria on 04-11-2023 Hematocrit (Bld) [Volume fraction] 37.3 % 37-47 [facility] Laboratory - Chemistry and C hemistry - challengeOrdered By: Flako Chavarria on 04-11-2023 Ferritin [Mass/Vol] 39 ng/mL 8-252 [facility] Laboratory - Hematology and Cell countsOrdered By: Flako Chavarria on 04-11-2023 MCH (RBC) [Entitic mass] 23.1 pg 27.0-32.0 [facility] MCHC (RBC) [Mass/Vol] 29.5 g/dL 32-36 [facility] Platelet mean volume (Bld) [Entitic vol] 11.0 fL 6.2-12.0 [facility] Platelets (Bld) [#/Vol] 356 10*3/uL 150-450 [facility] No Panel InformationOrdered By: Flako Chavarria on 04-11-2023 Endomysial IgA Antibody Negative Negative [facility] Tissue Transglutaminase IgG Ab Not Reportable [facility] RBC Auto (Bld) [#/Vol]Ordere d By: Flako Chavarria on 04-11-2023 RBC (Bld) [#/Vol] 4.77 10*6/uL 4.2-5.4 [facility] Serum or plasma IgA measurem ent (mass/volume)Ordered By: Flako Chavarria on 04-11-2023 IgA [Mass/Vol] 183 mg/dL 64-422 [facility] Comment on above: Performed at: [facility] [place] [id number] Director: Flako Araujo PhD, Phone: [phone] Serum tissue transglutaminas e IgA antibody assay (units/volume)Ordered By: Flako Chavarria on 04-11-2023 tTG IgA Qn (S) <2 U/mL 0-3 [facility] Comment on above: Negative 0 - 3 Weak Positive 4 - 10 Positive >10 Tissue Transglutaminase (tTG) has been identified as the endomysial antigen. Studies have demonstr- ated that endomysial IgA antibodies have over 99% specificity for gluten sensitive enteropathy. Absolute lymphocyte countOrd ered By: Maco Singh on 03-21-2023 Lymphocytes Auto (Unsp spec) [#/Vol] 1.27 10*3/uL 0.83-4.51 [facility] Automated lymphocyte count a s percentage of total leukocytesOrdered By: Maco Singh on 03-21-2023 Lymphocytes/100 WBC Auto (Unsp spec) 12.3 % 19-41 [facility] Basophil percentageOrdered B y: Maco Singh on 03-21-2023 Basophils/100 WBC (Bld) 0.6 % 0-1 [facility] Bilirubin [Mass/Vol] 0.20 mg/dL 0.20-1.00 [facility] Comment on above: For patients on eltr ombopag therapy, use of Dimension Silex TBIL is not recommended. Chloride [Moles/Vol] 117 mmol/L 98-107 [facility] Eosinophils/100 WBC (Bld) 8.9 % 0-5 [facility] Glucose [Mass/Vol] 90 mg/dL 74-106 [facility] Hemoglobin (Bld) [Mass/Vol] 9.9 g/dL 12.0-15.0 [facility] LDH [Catalytic activity/Vol] 193 U/L 84-246 [facility] Monocytes/100 WBC (Bld) 7.6 % 0-10 [facility] Neutrophils (Bld) [#/Vol] 7.2 10*3/uL 2.0-7.7 [facility] Neutrophils/100 WBC (Bld) 69.9 % 47-70 [facility] Potassium [Moles/Vol] 3.8 mmol/L 3.5-5.1 [facility] Protein [Mass/Vol] 6.9 g/dL 6.4-8.2 [facility] Sodium [Moles/Vol] 144 mmol/L 136-145 [facility] WBC (Bld) [#/Vol] 10.4 10*3/uL 4.4-11.0 [facility] C. difficile DNA MARCIA+probe Q l (Unsp spec)Ordered By: Maco Singh on 03-21-2023 Clostridioides difficile (PCR) [facility] Clostridioides difficile nuc leic acid assay by PCROrdered By: Maco Singh on 03-21-2023 C. difficile DNA MARCIA+probe Ql (Unsp spec) [facility] Determination of erythrocyte mean corpuscular volume (MCV)Ordered By: Maco Singh on 03-21-2023 MCV (RBC) [Entitic vol] 76.8 fL 81-99 [facility] Erythrocyte distribution wid th ratioOrdered By: Maco Singh on 03-21-2023 Erythrocyte distribution width (RBC) [Ratio] 18.2 % 11.6-14.6 [facility] Erythrocyte distribution wid th standard deviationOrdered By: Maco Singh on 03-21-2023 Erythrocyte distribution width (RBC) [Entitic vol] 48.3 fL 35.1-43.9 [facility] Erythrocyte sedimentation ra teOrdered By: Maco Singh on 03-21-2023 ESR (Bld) [Velocity] 34 mm/h 0-30 [facility] Hematocrit Auto (Bld) [Volum e fraction]Ordered By: Maco Singh on 03-21-2023 Hematocrit (Bld) [Volume fraction] 33.7 % 37-47 [facility] Hemoglobin (Reticulocytes) [ Entitic mass]Ordered By: Mcao Singh on 03-21-2023 Reticulocyte Hemoglobin Equivalent 26.4 pg Low 30-35 [facility] Hemoglobin in reticulocytes (mass per reticulocyte)Ordered By: Maco Singh on 03-21-2023 Hemoglobin (Reticulocytes) [Entitic mass] 26.4 pg 30-35 [facility] Immature granulocytes/100 WB C Auto (Bld)Ordered By: Maco Singh on 03-21-2023 Immature granulocytes/100 WBC (Bld) 0.700 % 0.0-0.9 [facility] Comment on above: IG% - Immature Granu locytes (promyelocytes, myelocytes and metamyelocytes) > 1% indicates that a LEFT SHIFT is Present. Iron measurement (mass/mass) Ordered By: Maco Singh on 03-21-2023 Iron (Unsp spec) [Mass/Mass] 41 ug/dL 50-170 [facility] Laboratory - Chemistry and C hemistry - challengeOrdered By: Maco Singh on 03-21-2023 Albumin/Globulin [Mass ratio] 0.8 {ratio} 0.9-2.4 [facility] ALP [Catalytic activity/Vol] 94 U/L 45-117 [facility] ALT [Catalytic activity/Vol] 23 U/L 13-56 [facility] CO2 [Moles/Vol] 24.0 mmol/L 21.0-32.0 [facility] Cobalamin (Vitamin B12) [Mass/Vol] 771 pg/mL 211-911 [facility] Ferritin [Mass/Vol] 100 ng/mL 8-252 [facility] Globulin (S) [Mass/Vol] 3.9 g/dL 2.2-4.2 [facility] Urea nitrogen/Creatinine [Mass ratio] 25.7 mg/mg 10-20 [facility] Laboratory - Hematology and Cell countsOrdered By: Maco Singh on 03-21-2023 MCH (RBC) [Entitic mass] 22.6 pg 27.0-32.0 [facility] MCHC (RBC) [Mass/Vol] 29.4 g/dL 32-36 [facility] Nucleated RBC/100 WBC (Bld) [Ratio] 0 % 0-5 [facility] Platelet mean volume (Bld) [Entitic vol] 10.2 fL 6.2-12.0 [facility] Platelets (Bld) [#/Vol] 429 10*3/uL 150-450 [facility] Lactoferrin IA Ql (Stl)Order ed By: Maco Singh on 03-21-2023 Stool Lactoferrin [facility] No Panel InformationOrdered By: Maco Singh on 03-21-2023 Stool Calprotectin 129 ug/g 0-120 [facility] Comment on above: Concentration Interp retation Follow-Up< 5 - 50 ug/g Normal None>50 -120 ug/g Borderline Re-evaluate in 4-6 weeks >120 ug/g Abnormal Repeat as clinically indicatedPerformed at: [facility] [address] [id number] Director: Chary Cox MD, Phone: [phone] C-Reactive Protein Extended Range < 2.90 mg/L 0.0-3.0 [facility] Comment on above: C-Reactive Protein ( CRP) provides useful information for thediagnosis, therapy and monitoring of inflammatory processesand associated diseases. For the evaluation of Relative Riskfor Cardiovascular Disease, a High Sensitivity CRP (HSCRP)should be ordered. Estimated GFR (MDRD) Amer 120 mL/min >60 [facility] Comment on above: GFR Calc Estimated GFR (MDRD) Non-Af Amer 99 mL/min >60 [facility] Comment on above: Non- GFR Calc Immature Reticulocyte Fraction 15.10 % 3.00-15.90 [facility] Total Iron Binding Capacity 295 ug/dL 250-450 [facility] Miscellaneous Test Comment SEE SCANNED REPORT [facility] RBC Auto (Bld) [#/Vol]Ordere d By: Maco Singh on 03-21-2023 RBC (Bld) [#/Vol] 4.39 10*6/uL 4.2-5.4 [facility] Reticulocytes Auto (Bld) [#/ Vol]Ordered By: Maco Singh on 03-21-2023 Reticulocyte Count 2.31 % High 0.5-1.5 [facility] Reticulocytes/100 RBC (Bld) 2.31 % 0.5-1.5 [facility] Serum or plasma calcium pj urement (mass/volume)Ordered By: Maco Singh on 03-21-2023 Calcium [Mass/Vol] 9.0 mg/dL 8.5-10.1 [facility] Serum or plasma carcinoembry onic antigen measurement (mass/volume)Ordered By: Maco Singh on 03-21-2023 Carcinoembryonic Ag [Mass/Vol] 3.9 ng/mL 0.0-4.7 [facility] Comment on above: Nonsmokers <3.9 Smok ers <5.6[facility] [employer] Electrochemiluminescence Immunoassay(ECLIA)Values obtained with different assay methods or kitscannot be used interchangeably. Results cannot beinterpreted as absolute evidence of the presence orabsence of malignant disease.Performed at: [facility] [id number] Director: Flako Araujo PhD, Phone: [phone] Serum or plasma creatinine m easurement (mass/volume)Ordered By: Maco Singh on 03-21-2023 Creatinine [Mass/Vol] 0.62 mg/dL 0.55-1.02 [facility] Comment on above: The validity of the calculated GFR & GFRAA in patients over 70 years has not been determined. Clinical correlation is essential. Serum or plasma iron saturat ion measurement (mass fraction)Ordered By: Maco Singh on 03-21-2023 Iron saturation [Mass fraction] 13.9 % 15.0-55.0 [facility] Serum or plasma urea nitroge n measurement (mass/volume)Ordered By: Maco Singh on 03-21-2023 Urea nitrogen [Mass/Vol] 16 mg/dL 7-18 [facility] Stool lactoferrin detection by immunoassayOrdered By: Maco Singh on 03-21-2023 Lactoferrin IA Ql (Stl) [facility] Lactoferrin IA Ql (Stl) [facility] Thin prep Papanicolaou smear with manual screeningOrdered By: Maco Singh on 03-21-2023 Thin prep Papanicolaou smear with manual screening 3.0 g/dL 3.2-5.0 [facility] Thin prep Papanicolaou smear with manual screening 41 U/L 15-37 [facility] Thin prep Papanicolaou smear with manual screening 3 5-15 [facility] Absolute lymphocyte countOrd ered By: Richard Mckenzie on 03-15-2023 Lymphocytes Auto (Unsp spec) [#/Vol] 1.65 10*3/uL 0.83-4.51 [facility] Automated lymphocyte count a s percentage of total leukocytesOrdered By: Richard Mckenzie on 03-15-2023 Lymphocytes/100 WBC Auto (Unsp spec) 11.2 % 19-41 [facility] Basophil percentageOrdered B y: Richard Mckenzie on 03-15-2023 Basophils/100 WBC (Bld) 0.5 % 0-1 [facility] Eosinophils/100 WBC (Bld) 7.3 % 0-5 [facility] Hemoglobin (Bld) [Mass/Vol] 10.0 g/dL 12.0-15.0 [facility] Monocytes/100 WBC (Bld) 6.7 % 0-10 [facility] Neutrophils (Bld) [#/Vol] 10.7 10*3/uL 2.0-7.7 [facility] Neutrophils/100 WBC (Bld) 72.9 % 47-70 [facility] WBC (Bld) [#/Vol] 14.7 10*3/uL 4.4-11.0 [facility] Determination of erythrocyte mean corpuscular volume (MCV)Ordered By: Richard Mckenzie on 03-15-2023 MCV (RBC) [Entitic vol] 75.8 fL 81-99 [facility] Erythrocyte distribution wid th ratioOrdered By: Richard Mckenzie on 03-15-2023 Erythrocyte distribution width (RBC) [Ratio] 16.2 % 11.6-14.6 [facility] Erythrocyte distribution wid th standard deviationOrdered By: Richard Mckenzie on 03-15-2023 Erythrocyte distribution width (RBC) [Entitic vol] 41.7 fL 35.1-43.9 [facility] Hematocrit Auto (Bld) [Volum e fraction]Ordered By: Richard Mckenzie on 03-15-2023 Hematocrit (Bld) [Volume fraction] 34.4 % 37-47 [facility] Immature granulocytes/100 WB C Auto (Bld)Ordered By: Richard Mckenzie on 03-15-2023 Immature granulocytes/100 WBC (Bld) 1.400 % 0.0-0.9 [facility] Comment on above: IG% - Immature Granu locytes (promyelocytes, myelocytes and metamyelocytes) > 1% indicates that a LEFT SHIFT is Present. Laboratory - Hematology and Cell countsOrdered By: Richard Mckenzie on 03-15-2023 MCH (RBC) [Entitic mass] 22.0 pg 27.0-32.0 [facility] MCHC (RBC) [Mass/Vol] 29.1 g/dL 32-36 [facility] Nucleated RBC/100 WBC (Bld) [Ratio] 0 % 0-5 [facility] Platelets (Bld) [#/Vol] 625 10*3/uL 150-450 [facility] Platelet mean volume Augie-Ec ker (Bld) [Entitic vol]Ordered By: Richard Mckenzie on 03-15-2023 Platelet mean volume (Bld) [Entitic vol] 9.1 fL 6.2-12.0 [facility] RBC Auto (Bld) [#/Vol]Ordere d By: Richard Mckenzie on 03-15-2023 RBC (Bld) [#/Vol] 4.54 10*6/uL 4.2-5.4 [facility] Absolute lymphocyte countOrd ered By: Richard Mckenzie on 03-11-2023 Lymphocytes Auto (Unsp spec) [#/Vol] 1.55 10*3/uL 0.83-4.51 [facility] Automated lymphocyte count a s percentage of total leukocytesOrdered By: Richard Mckenzie on 03-11-2023 Lymphocytes/100 WBC Auto (Unsp spec) 14.9 % 19-41 [facility] Basophil percentageOrdered B y: Richard Mckenzie on 03-11-2023 Basophils/100 WBC (Bld) 0.6 % 0-1 [facility] Eosinophils/100 WBC (Bld) 8.1 % 0-5 [facility] Hemoglobin (Bld) [Mass/Vol] 7.9 g/dL 12.0-15.0 [facility] Monocytes/100 WBC (Bld) 7.2 % 0-10 [facility] Neutrophils (Bld) [#/Vol] 6.8 10*3/uL 2.0-7.7 [facility] Neutrophils/100 WBC (Bld) 65.5 % 47-70 [facility] WBC (Bld) [#/Vol] 10.4 10*3/uL 4.4-11.0 [facility] Chloride [Moles/Vol] 114 mmol/L 98-107 [facility] Glucose [Mass/Vol] 119 mg/dL 74-106 [facility] Comment on above: Fasting Glucose resu lt from 100 to 125 mg/dL suggests IMPAIRED HOMEOSTASIS per A.D.A. criteria. Potassium [Moles/Vol] 4.1 mmol/L 3.5-5.1 [facility] Comment on above: Slight Hemolysis, Re sult may be falsely increased. Sodium [Moles/Vol] 141 mmol/L 136-145 [facility] Determination of erythrocyte mean corpuscular volume (MCV)Ordered By: Richard Mckenzie on 03-11-2023 MCV (RBC) [Entitic vol] 75.4 fL 81-99 [facility] Erythrocyte distribution wid th ratioOrdered By: Richard Mckenzie on 03-11-2023 Erythrocyte distribution width (RBC) [Ratio] 14.0 % 11.6-14.6 [facility] Erythrocyte distribution wid th standard deviationOrdered By: Richard Mckenzie on 03-11-2023 Erythrocyte distribution width (RBC) [Entitic vol] 38.1 fL 35.1-43.9 [facility] Hematocrit Auto (Bld) [Volum e fraction]Ordered By: Richard Mckenzie on 03-11-2023 Hematocrit (Bld) [Volume fraction] 27.0 % 37-47 [facility] Immature granulocytes/100 WB C Auto (Bld)Ordered By: Richard Mckenzie on 03-11-2023 Immature granulocytes/100 WBC (Bld) 3.700 % 0.0-0.9 [facility] Comment on above: IG% - Immature Granu locytes (promyelocytes, myelocytes and metamyelocytes) > 1% indicates that a LEFT SHIFT is Present. Laboratory - Chemistry and C hemistry - challengeOrdered By: Richard Mckenzie on 03-11-2023 CO2 [Moles/Vol] 24.0 mmol/L 21.0-32.0 [facility] Urea nitrogen/Creatinine [Mass ratio] 46.3 mg/mg 10-20 [facility] Laboratory - Hematology and Cell countsOrdered By: Richard Mckenzie on 03-11-2023 MCH (RBC) [Entitic mass] 22.1 pg 27.0-32.0 [facility] MCHC (RBC) [Mass/Vol] 29.3 g/dL 32-36 [facility] Nucleated RBC/100 WBC (Bld) [Ratio] 0.2 % 0-5 [facility] Platelets (Bld) [#/Vol] 527 10*3/uL 150-450 [facility] No Panel InformationOrdered By: Richard Mckenzie on 03-11-2023 Estimated Creatinine Clearance Calc 60.60 ml/min [facility] Estimated GFR (MDRD) Amer 173 mL/min >60 [facility] Comment on above: GFR Calc Estimated GFR (MDRD) Non-Af Amer 143 mL/min >60 [facility] Comment on above: Non- GFR Calc Platelet mean volume Augie-Ec ker (Bld) [Entitic vol]Ordered By: Richard Mckenzie on 03-11-2023 Platelet mean volume (Bld) [Entitic vol] 9.5 fL 6.2-12.0 [facility] RBC Auto (Bld) [#/Vol]Ordere d By: Richard Mckenzie on 03-11-2023 RBC (Bld) [#/Vol] 3.58 10*6/uL 4.2-5.4 [facility] Serum or plasma calcium pj urement (mass/volume)Ordered By: Richard Mckenzie on 03-11-2023 Calcium [Mass/Vol] 8.5 mg/dL 8.5-10.1 [facility] Serum or plasma creatinine m easurement (mass/volume)Ordered By: Richard Mckenzie on 03-11-2023 Creatinine [Mass/Vol] 0.45 mg/dL 0.55-1.02 [facility] Comment on above: The validity of the calculated GFR & GFRAA in patients over 70 years has not been determined. Clinical correlation is essential. Serum or plasma urea nitroge n measurement (mass/volume)Ordered By: Richard Mckenzie on 03-11-2023 Urea nitrogen [Mass/Vol] 21 mg/dL 7-18 [facility] Thin prep Papanicolaou smear with manual screeningOrdered By: Santosh Ballard on 03-11-2023 Thin prep Papanicolaou smear with manual screening 155 mg/dL 74-106 [facility] Comment on above: MANAGEMENT OF PATIEN T CARE PER NURSING PROTOCOL Thin prep Papanicolaou smear with manual screeningOrdered By: Richard Mckenzie on 03-11-2023 Thin prep Papanicolaou smear with manual screening 3 5-15 [facility] Basophil percentageOrdered B y: Jameson Snell on 03-10-2023 Basophil percentage 3.3 mg/dL 2.5-4.9 [facility] Laboratory - Chemistry and C hemistry - challengeOrdered By: Jameson Snell on 03-10-2023 Magnesium [Mass/Vol] 2.0 mg/dL 1.6-2.6 [facility] Bacteria identified Anaer cx Nom (Unsp spec)Ordered By: Santosh Ballard on 03-06-2023 Anaerobic Culture Clostridium perfringens [facility] Anaerobic Culture Bacteroides thetaiotaomicron [facility] Anaerobic Culture Clostridium [facility] cent[facility] Anaerobic Culture Bacteroides thetaiotaomicron [facility] Bacteria identified Cx Nom ( Wound)Ordered By: Santosh Ballard on 03-06-2023 Wound Culture Escherichia coli [facility] Wound Culture Escherichia coli#2 [facility] Wound Culture Escherichia coli [facility] Wound Culture Escherichia coli#2 [facility] Cytology report of Body flui d Cyto stainOrdered By: Santosh Ballard on 03-06-2023 Cytology report Cyto stain Doc (Body fld) SEE PATHOLOGY REPORT [facility] Comment on above: Specimen submitted t o Anatomical Pathology Department for testing. Gram stain for investigation of transfusion reactionOrdered By: Santosh Ballard on 03-06-2023 Microscopic observation Gram stain Nom (Unsp spec) [facility] Microscopic observation Gram stain Nom (Unsp spec) [facility] Serum or plasma carcinoembry onic antigen measurement (mass/volume)Ordered By: Santosh Ballard on 03-06-2023 Carcinoembryonic Ag [Mass/Vol] 5.0 ng/mL 0.0-4.7 [facility] Comment on above: Nonsmokers <3.9 Smok ers <5.6[employer] Electrochemiluminescence Immunoassay(ECLIA)Values obtained with different assay methods or kitscannot be used interchangeably. Results cannot beinterpreted as absolute evidence of the presence orabsence of malignant disease.Performed at: [facility] [id number] Director: Flako Araujo PhD, Phone: [phone] Absolute lymphocyte countOrd ered By: Stas Arredondo on 03-05-2023 Lymphocytes Auto (Unsp spec) [#/Vol] 1.18 10*3/uL 0.83-4.51 [facility] Automated lymphocyte count a s percentage of total leukocytesOrdered By: Stas Arredondo on 03-05-2023 Lymphocytes/100 WBC Auto (Unsp spec) 7.9 % 19-41 [facility] Basophil percentageOrdered B y: Stas Arredondo on 03-05-2023 Basophils/100 WBC (Bld) 0.3 % 0-1 [facility] Bilirubin [Mass/Vol] 0.30 mg/dL 0.20-1.00 [facility] Comment on above: For patients on eltr ombopag therapy, use of Dimension Silex TBIL is not recommended. Chloride [Moles/Vol] 102 mmol/L 98-107 [facility] Eosinophils/100 WBC (Bld) 0.8 % 0-5 [facility] Glucose [Mass/Vol] 252 mg/dL 74-106 [facility] Comment on above: Glucose result great er than or equal to 200 mg/dLsuggests DIABETES MELLITUS per A.D.A. criteria. Hemoglobin (Bld) [Mass/Vol] 10.7 g/dL 12.0-15.0 [facility] Monocytes/100 WBC (Bld) 6.6 % 0-10 [facility] Neutrophils (Bld) [#/Vol] 12.5 10*3/uL 2.0-7.7 [facility] Neutrophils/100 WBC (Bld) 83.7 % 47-70 [facility] Potassium [Moles/Vol] 3.9 mmol/L 3.5-5.1 [facility] Protein [Mass/Vol] 7.3 g/dL 6.4-8.2 [facility] Sodium [Moles/Vol] 137 mmol/L 136-145 [facility] WBC (Bld) [#/Vol] 14.9 10*3/uL 4.4-11.0 [facility] Basophil percentage 0-5 SEEN /hpf 0-5 [facility] Bilirubin Test strip Ql (U)O rdered By: Stas Arredondo on 03-05-2023 Bilirubin Ql (U) 3 mg/dL Negative [facility] Comment on above: COLOR OF URINE MAY A FFECT DIPSTICK RESULTS. Determination of erythrocyte mean corpuscular volume (MCV)Ordered By: Stas Arredondo on 03-05-2023 MCV (RBC) [Entitic vol] 74.5 fL 81-99 [facility] Erythrocyte distribution wid th ratioOrdered By: Stas Arredondo on 03-05-2023 Erythrocyte distribution width (RBC) [Ratio] 13.5 % 11.6-14.6 [facility] Erythrocyte distribution wid th standard deviationOrdered By: Stas Arredondo on 03-05-2023 Erythrocyte distribution width (RBC) [Entitic vol] 36.4 fL 35.1-43.9 [facility] Hematocrit Auto (Bld) [Volum e fraction]Ordered By: Stas Arredondo on 03-05-2023 Hematocrit (Bld) [Volume fraction] 35.7 % 37-47 [facility] Immature granulocytes/100 WB C Auto (Bld)Ordered By: Stas Arredondo on 03-05-2023 Immature granulocytes/100 WBC (Bld) 0.700 % 0.0-0.9 [facility] Comment on above: IG% - Immature Granu locytes (promyelocytes, myelocytes and metamyelocytes) > 1% indicates that a LEFT SHIFT is Present. Ketones Test strip Ql (U)Ord ered By: Stas Arredondo on 03-05-2023 Ketones Ql (U) 5 mg/dl Negative [facility] Laboratory - Chemistry and C hemistry - challengeOrdered By: Stas Arredondo on 03-05-2023 Albumin/Globulin [Mass ratio] 0.6 {ratio} 0.9-2.4 [facility] ALP [Catalytic activity/Vol] 107 U/L 45-117 [facility] ALT [Catalytic activity/Vol] 11 U/L 13-56 [facility] CO2 [Moles/Vol] 27.0 mmol/L 21.0-32.0 [facility] Globulin (S) [Mass/Vol] 4.5 g/dL 2.2-4.2 [facility] Lipase [Catalytic activity/Vol] 13 U/L 13-75 [facility] Comment on above: Please note:LIPASE r evised reference range effective 22. New Lipase methodology. Expected to produce lower values than the previous assay method. NEW Reference Range: 13 - 75 U/L Urea nitrogen/Creatinine [Mass ratio] 19.5 mg/mg 10-20 [facility] Laboratory - Hematology and Cell countsOrdered By: Stas Arredondo on 03-05-2023 MCH (RBC) [Entitic mass] 22.3 pg 27.0-32.0 [facility] MCHC (RBC) [Mass/Vol] 30.0 g/dL 32-36 [facility] Nucleated RBC/100 WBC (Bld) [Ratio] 0 % 0-5 [facility] Platelets (Bld) [#/Vol] 474 10*3/uL 150-450 [facility] Mucus LM Ql (Urine sed)Order ed By: Stas Arredondo on 03-05-2023 Mucus Ql (Urine sed) 0 SEEN /hpf [facility] Nitrite Test strip Ql (U)Ord ered By: Stas Arredondo on 03-05-2023 Nitrite Ql (U) Negative Negative [facility] No Panel InformationOrdered By: Stas Arredondo on 03-05-2023 Estimated Creatinine Clearance Calc 58.78 ml/min [facility] Estimated GFR (MDRD) Amer 87 mL/min >60 [facility] Comment on above: GFR Calc Estimated GFR (MDRD) Non-Af Amer 72 mL/min >60 [facility] Comment on above: Non- GFR Calc Urine RBC 0 SEEN /hpf 0-5 [facility] Platelet mean volume Augie-Ec ker (Bld) [Entitic vol]Ordered By: Stas Arredondo on 03-05-2023 Platelet mean volume (Bld) [Entitic vol] 9.6 fL 6.2-12.0 [facility] Protein Test strip Ql (U)Ord ered By: Stas Arredondo on 03-05-2023 Protein Ql (U) 30 mg/dl Negative [facility] RBC Auto (Bld) [#/Vol]Ordere d By: Stas Arredondo on 03-05-2023 RBC (Bld) [#/Vol] 4.79 10*6/uL 4.2-5.4 [facility] Serum or plasma calcium pj urement (mass/volume)Ordered By: Stas Arredondo on 03-05-2023 Calcium [Mass/Vol] 9.2 mg/dL 8.5-10.1 [facility] Serum or plasma creatinine m easurement (mass/volume)Ordered By: Stas Arredondo on 03-05-2023 Creatinine [Mass/Vol] 0.82 mg/dL 0.55-1.02 [facility] Comment on above: The validity of the calculated GFR & GFRAA in patients over 70 years has not been determined. Clinical correlation is essential. Serum or plasma urea nitroge n measurement (mass/volume)Ordered By: Stas Arredondo on 03-05-2023 Urea nitrogen [Mass/Vol] 16 mg/dL 7-18 [facility] Squamous epithelial cells de tection in urine sediment by light microscopyOrdered By: Stas Arredondo on 03-05-2023 Epithelial cells.squamous LM Ql (Urine sed) 0-5 SEEN /hpf 5-10 [facility] Thin prep Papanicolaou smear with manual screeningOrdered By: Stas Arredondo on 03-05-2023 Thin prep Papanicolaou smear with manual screening 2.8 g/dL 3.2-5.0 [facility] Thin prep Papanicolaou smear with manual screening 6 U/L 15-37 [facility] Thin prep Papanicolaou smear with manual screening 8 5-15 [facility] Urine blood detectionOrdered By: Stas Arredondo on 03-05-2023 RBC Ql (U) 10 /ul Negative [facility] Urine clarityOrdered By: Nadia Arredondo on 03-05-2023 Clarity (U) Sl. Cloudy Clear [facility] Urine color determinationOrd ered By: Stas Arredondo on 03-05-2023 Color (U) Yellow Yellow [facility] Urine glucose detectionOrder ed By: Stas Arredondo on 03-05-2023 Glucose Ql (U) Normal mg/dl Normal [facility] Urine leukocyte esterase det ection by dipstickOrdered By: Stas Arredondo on 03-05-2023 Leukocyte esterase Test strip Ql (U) 100 /ul Negative [facility] Urine pHOrdered By: Stas bains on 03-05-2023 pH (U) 5.0 [pH] 5.0 - 8.0 [facility] Urine sediment bacteria coun t by microscopy (number/high power field)Ordered By: Stas Arredondo on 03-05-2023 Bacteria LM.HPF (Urine sed) [#/Area] 1 /[HPF] None Seen [facility] Urine specific gravity measu rementOrdered By: Stas Arredondo on 03-05-2023 Specific gravity (U) [Rel density] 1.025 1.002-1.03 0 [facility] Urine urobilinogen measureme ntOrdered By: Stas Arredondo on 03-05-2023 Urobilinogen Ql (U) 1 mg/dl Normal [facility] Whole blood hemoglobin A1c/t otal hemoglobin ratio (mass fraction)Ordered By: Stas Arredondo on 03-05-2023 HbA1c (Bld) [Mass fraction] 6.6 % 3.8-5.6 [facility] Comment on above: Normal < 5.7 % Predi abetic 5.7 - 6.4 % Diabetic >or= 6.5 % Please note range changes. CBC W Auto Differential pane l (Bld)on 04-06-2022 Basophils (Bld) [#/Vol] 0.03 10*3/uL Normal <0.11 [facility] Comment on above: Order Comment: Speci men Type: BLOOD SPECIMEN Ordering Facility: [facility] Address: [address] [place] [id number] Performed By: #### 5 7021-8 #### [facility] CLIA [id number] [address] [place] Basophils/100 WBC (Bld) 0.2 % Normal [facility] Comment on above: Order Comment: Speci men Type: BLOOD SPECIMEN Ordering Facility: [facility] Address: [address] [place] [address] Performed By: #### 5 7021-8 #### [facility] CLIA [id number] [address] [place] [address] [place] Differential cell count method Nom (Bld) Auto Normal [facility] Comment on above: Order Comment: Speci men Type: BLOOD SPECIMEN Ordering Facility: [facility] Address: [address] [address] Performed By: #### 5 7021-8 #### [facility] CLIA [id number] [address] [place] Eosinophils (Bld) [#/Vol] 10*3/uL Normal <0.46 [facility] Comment on above: Order Comment: Speci men Type: BLOOD SPECIMEN Ordering Facility: [facility] Address: [address] [place] [address] Performed By: #### 5 7021-8 #### [facility] CLIA [id number] [address] Eosinophils/100 WBC (Bld) 0.1 % Normal [facility] Comment on above: Order Comment: Speci men Type: BLOOD SPECIMEN Ordering Facility: [facility] Address: [address] [place] [address] Performed By: #### 5 7021-8 #### [facility] CLIA [id number] [address] [place] Erythrocyte distribution width (RBC) [Ratio] 15.9 % High 11.5-15.0 [facility] Comment on above: Order Comment: Speci men Type: BLOOD SPECIMEN Ordering Facility: [facility] Address: [address] [place] [address] Performed By: #### 5 7021-8 #### [facility] CLIA [id number] [address] [place] [address] [place] Hematocrit (Bld) [Volume fraction] 36.5 % Normal 36.0-46.0 [facility] Comment on above: Order Comment: Speci men Type: BLOOD SPECIMEN Ordering Facility: [facility] Address: [address] [place] [address] Performed By: #### 5 7021-8 #### [facility] CLIA [id number] [address] [place] Hemoglobin (Bld) [Mass/Vol] 10.7 g/dL Low 11.5-15.5 [facility] Comment on above: Order Comment: Speci men Type: BLOOD SPECIMEN Ordering Facility: [facility] Address: [address] [place] [address] Performed By: #### 5 7021-8 #### [facility] CLIA [id number] [address] [place] Immature granulocytes (Bld) [#/Vol] 0.07 10*3/uL Normal <0.10 [facility] Comment on above: Order Comment: Speci men Type: BLOOD SPECIMEN Ordering Facility: [facility] Address: [address] [place] [address] Performed By: #### 5 7021-8 #### [facility] CLIA [id number] [address] Immature granulocytes/100 WBC (Bld) 0.5 % Normal [facility] Comment on above: Order Comment: Speci men Type: BLOOD SPECIMEN Ordering Facility: [facility] Address: [address] [address] Performed By: #### 5 7021-8 #### [facility] CLIA [id number] [address] [place] Lymphocytes (Bld) [#/Vol] 1.06 10*3/uL Normal 1.00-4.[address] [facility] Comment on above: Order Comment: Speci men Type: BLOOD SPECIMEN Ordering Facility: [facility] Address: [address] [address] Performed By: #### 5 7021-8 #### [facility] CLIA [id number] [address] [place] [address] [place] Lymphocytes/100 WBC (Bld) 8.1 % Normal [facility] Comment on above: Order Comment: Speci men Type: BLOOD SPECIMEN Ordering Facility: [facility] Address: [address] [place] [address] Performed By: #### 5 7021-8 #### [facility] CLIA [id number] [address] [place] [address] [place] MCH (RBC) [Entitic mass] 22.4 pg Low 26.0-34.0 [facility] Comment on above: Order Comment: Speci men Type: BLOOD SPECIMEN Ordering Facility: [facility] Address: [address] [address] Performed By: #### 5 7021-8 #### [facility] CLIA [id number] [address] [place] [address] [place] MCHC (RBC) [Mass/Vol] 29.3 g/dL Low 30.5-36.0 [facility] Comment on above: Order Comment: Speci men Type: BLOOD SPECIMEN Ordering Facility: [facility] Address: [address] [address] Performed By: #### 5 7021-8 #### [facility] CLIA [id number] [address] [place] MCV (RBC) [Entitic vol] 76.5 fL Low 80.0-100.0 [facility] Comment on above: Order Comment: Speci men Type: BLOOD SPECIMEN Ordering Facility: [facility] Address: [address] [address] Performed By: #### 5 7021-8 #### [facility] CLIA [id number] [address] [place] [address] [place] Monocytes (Bld) [#/Vol] 1.41 10*3/uL High <0.87 [facility] Comment on above: Order Comment: Speci men Type: BLOOD SPECIMEN Ordering Facility: [facility] Address: [address] [address] Performed By: #### 5 7021-8 #### [facility] CLIA [id number] [address] [place] [address] [place] Monocytes/100 WBC (Bld) 10.7 % Normal [facility] Comment on above: Order Comment: Speci men Type: BLOOD SPECIMEN Ordering Facility: [facility] Address: [address] [address] Performed By: #### 5 7021-8 #### [facility] CLIA [id number] [address] [place] [address] [place] Neutrophils (Bld) [#/Vol] 10.54 10*3/uL High 1.45-7. 50 [facility] Comment on above: Order Comment: Speci men Type: BLOOD SPECIMEN Ordering Facility: [facility] Address: [address] [place] [address] Performed By: #### 5 7021-8 #### [facility] CLIA [id number] [address] [place] Neutrophils/100 WBC (Bld) 80.4 % Normal [facility] Comment on above: Order Comment: Speci men Type: BLOOD SPECIMEN Ordering Facility: [facility] Address: [address] [address] Performed By: #### 5 7021-8 #### [facility] CLIA [id number] [address] [place] [address] [place] Nucleated RBC (Bld) [#/Vol] 10*3/uL Normal <0.01 [facility] Comment on above: Order Comment: Speci men Type: BLOOD SPECIMEN Ordering Facility: [facility] Address: [address] [address] Performed By: #### 5 7021-8 #### [facility] CLIA [id number] [address] [place] [address] [place] Nucleated RBC/100 WBC (Bld) [Ratio] 0.0 /[address] [facility] Comment on above: Order Comment: Speci men Type: BLOOD SPECIMEN Ordering Facility: [facility] Address: [address] [address] Performed By: #### 5 7021-8 #### [facility] CLIA [id number] [address] [place] [address] [place] Platelet mean volume (Bld) [Entitic vol] 10.8 fL Normal 9.0-12.7 [facility] Comment on above: Order Comment: Speci men Type: BLOOD SPECIMEN Ordering Facility: [facility] Address: [address] [place] [address] Performed By: #### 5 7021-8 #### [facility] CLIA [id number] [address] [place] [address] [place] Platelets (Bld) [#/Vol] 374 10*3/uL Normal 150-400 [facility] Comment on above: Order Comment: Speci men Type: BLOOD SPECIMEN Ordering Facility: [facility] Address: [address] [place] [address] Performed By: #### 5 7021-8 #### [facility] CLIA [id number] [address] [place] [address] [place] RBC (Bld) [#/Vol] 4.77 10*6/uL Normal 3.90-5.20 [facility] Comment on above: Order Comment: Speci men Type: BLOOD SPECIMEN Ordering Facility: [facility] Address: [address] [place] [address] Performed By: #### 5 7021-8 #### [facility] CLIA [id number] [address] [place] [address] [place] WBC (Bld) [#/Vol] 13.12 10*3/uL High 3.70-11.00 [facility] Comment on above: Order Comment: Speci men Type: BLOOD SPECIMEN Ordering Facility: [facility] Address: [address] [place] [address] Performed By: #### 5 7021-8 #### [facility] CLIA [id number] [address] [place] CNCOon 04-06-[address] [facility] CNDSon 04-06-2022 CNDS HNO ID: [id number] Author: Laly Nolan PA-C Service: General Surgery Author Type: Physician Correctional Maintenance Technician Type: Discharge Summary Filed: 04/06/2022 10:08 AM [...] needed for pain. You should use an [id number]-[id number]-icliwuj stool softener (Docusate sodium) and/or a fiber [...] When: In 2 weeks Jessee Holloway MD [phone] [address] [address] PCP Requested Referral Additional Provider to Provider Information: S/p hiwot gardnere Treatment Team: Attending Provider: Jessee Holloway MD Transitions of Care Critical Issues: none LABS AND PROCEDURES PENDING AT DISCHARGE: Pathology Resul (more content not included)... Normal [facility] Comprehensive metabolic 2000 panelon 04-06-2022 Albumin [Mass/Vol] 3.6 g/dL Low 3.9-4.9 [facility] Comment on above: Order Comment: Speci men Type: BLOOD SPECIMEN Ordering Facility: [facility] Address: [address] [place] [address] Performed By: #### 2 4323-8 #### [facility] CLIA [id number] [address] [place] [facility] ALP [Catalytic activity/Vol] 86 U/L Normal 34-123 [facility] Comment on above: Order Comment: Speci men Type: BLOOD SPECIMEN Ordering Facility: [facility] Address: [address] [address] Performed By: #### 2 4323-8 #### [facility] CLIA [id number] [address] [place] [facility] ALT [Catalytic activity/Vol] 54 U/L High 7-38 [facility] Comment on above: Order Comment: Speci men Type: BLOOD SPECIMEN Ordering Facility: [facility] Address: [address] [address] Performed By: #### 2 4323-8 #### [facility] CLIA [id number] [address] [place] [address] [place] [facility] Anion gap [Moles/Vol] 6 mmol/L Low 9-18 [facility] Comment on above: Order Comment: Speci men Type: BLOOD SPECIMEN Ordering Facility: [facility] Address: [address] [address] Performed By: #### 2 4323-8 #### [facility] CLIA [id number] [address] [place] [address] [place] AST [Catalytic activity/Vol] 55 U/L High 13-35 [facility] Comment on above: Order Comment: Speci men Type: BLOOD SPECIMEN Ordering Facility: [facility] Address: [address] [place] [address] Performed By: #### 2 4323-8 #### [facility] CLIA [id number] [address] [place] [address] [place] Bilirubin [Mass/Vol] 0.5 mg/dL Normal 0.2-1.3 [facility] Comment on above: Order Comment: Speci men Type: BLOOD SPECIMEN Ordering Facility: [facility] Address: [address] [place] [address] Performed By: #### 2 4323-8 #### [facility] CLIA [id number] [address] [place] Calcium [Mass/Vol] 9.0 mg/dL Normal 8.5-10.2 [facility] Comment on above: Order Comment: Speci men Type: BLOOD SPECIMEN Ordering Facility: [facility] Address: [address] [place] [address] Performed By: #### 2 4323-8 #### [facility] CLIA [id number] [address] [place] [address] [place] Chloride [Moles/Vol] 105 mmol/L Normal 97-105 [facility] Comment on above: Order Comment: Speci men Type: BLOOD SPECIMEN Ordering Facility: [facility] Address: [address] [place] [address] Performed By: #### 2 4323-8 #### [facility] CLIA [id number] [address] [place] [address] [place] CO2 [Moles/Vol] 30 mmol/L Normal 22-30 [facility] Comment on above: Order Comment: Speci men Type: BLOOD SPECIMEN Ordering Facility: [facility] Address: [address] [place] [address] Performed By: #### 2 4323-8 #### [facility] CLIA [id number] [address] [place] Creatinine [Mass/Vol] 0.65 mg/dL Normal 0.58-0.96 [facility] Comment on above: Order Comment: Marcelina plascencia Type: BLOOD SPECIMEN Ordering Facility: [facility] Address: [address] [place] [address] Performed By: #### 2 4323-8 #### [facility] CLIA [id number] [address] [place] ESTIMATED GLOMERULAR FILTRATION RATE 93 mL/min/1.73m??? Normal >=60 [facility] Comment on above: Order Comment: Marcelina plascencia Type: BLOOD SPECIMEN Ordering Facility: [facility] Address: [address] [place] [address] Result Comment: Sonya mated Glomerular Filtration Rate [...] GFR. Performed By: #### 2 4323-8 #### [facility] CLIA [id number] [address] [place] [address] [place] Glucose [Mass/Vol] 181 mg/dL High 74-99 [facility] Comment on above: Order Comment: Marcelina plascencia Type: BLOOD SPECIMEN Ordering Facility: [facility] Address: [address] [place] [address] Result Comment: The [place] [employer] (ADA) provides guidance for cutoff [...] Standards of Medical Care in Diabetes 2016, [place] [employer]. Diabetes Care. 2016.39(Suppl 1). Performed By: #### 2 4323-8 #### [facility] CLIA [id number] [address] [place] [address] [place] Potassium [Moles/Vol] 4.8 mmol/L Normal 3.7-5.1 [facility] Comment on above: Order Comment: Speci men Type: BLOOD SPECIMEN Ordering Facility: [facility] Address: [address] [address] Performed By: #### 2 4323-8 #### [facility] CLIA [id number] [address] [place] [address] [place] Protein [Mass/Vol] 6.4 g/dL Normal 6.3-8.0 [facility] Comment on above: Order Comment: Speci men Type: BLOOD SPECIMEN Ordering Facility: [facility] Address: [address] [place] [address] Performed By: #### 2 4323-8 #### [facility] CLIA [id number] [address] [place] Sodium [Moles/Vol] 141 mmol/L Normal 136-144 [facility] Comment on above: Order Comment: Speci men Type: BLOOD SPECIMEN Ordering Facility: [facility] Address: [address] [place] [address] Performed By: #### 2 4323-8 #### [facility] CLIA [id number] [address] [place] Urea nitrogen [Mass/Vol] 9 mg/dL Normal 7-21 [facility] Comment on above: Order Comment: Speci men Type: BLOOD SPECIMEN Ordering Facility: [facility] Address: [address] [place] [address] Performed By: #### 2 4323-8 #### [facility] CLIA [id number] [address] [place] [address] [place] ANES POSTPROC EVALon 023 ANES POSTPROC EVAL HNO ID: [id number] Author: Nohemi Ortiz MD Service: Anesthesiology Author Type: Anesthesiologist Type: Anesthesia Postprocedure Evaluation Filed: 04/05/2022 2:29 PM Note Text: POST ANESTHESIA EVALUATION NOTE : 1945 Procedure Summary Date: 04/05/22 Room / Location: [facility] OR05 / [facility] OR Anesthesia Start: 732 Anesthesia Stop: 916 [...] April 05, 2022 TIME: 2:29 PM CSN: [id number] [facility] ANES PRE-OPon 04-05-2022 ANES PRE-OP HNO ID: [id number] Author: Nohemi Ortiz MD Service: Anesthesiology Author Type: Anesthesiologist Type: Anesthesia Preprocedure Evaluation Filed: 04/05/2022 6:52 AM Note Text: ANESTHESIOLOGY DAY OF SURGERY NOTE : 1945 Procedure Information Date/Time: 04/05/22729 Procedure: LAPAROSCOPIC CHOLECYSTECTOMY WITH GRAMS Location: [facility] OR / [facility] OR Surgeons: Jessee Holloway MD Estimated body [...] Nguyen Queen DATE: (more content not included)... [facility] BRIEF OP NOTon 04-05-2022 BRIEF OP NOT HNO ID: [id number] Author: Jessee Holloway MD Service: General Surgery Author Type: Physician Type: Brief Op Note Filed: 04/05/2022 9:05 AM Note Text: BRIEF OPERATIVE NOTATION FOR SURGICAL PROCEDURE. Nguyen Queen 1945 [id number] female LOG ID: [id number] Surgery/Procedure Date: 04/05/2022 Incision/Procedure Start Time: 7:58 AM Incision Close/Procedure End Time: 8:56 AM Surgeon(s)/Proceduralist( s) and Correctional Maintenance Technician(s): Surgeon(s) and Role: * Jessee Holloway MD - Primary Physician Correctional Maintenance Technician: Renu Lucas PA-C REFERRING PHYSICIAN: Outpatient DEPT: Deb PROVIDER: Maryanne POS: [id number] ANESTHESIA: General ASA CLASS: 3 - Severe DIAGNOSIS: RUQ pain PROCEDURE: LAPAROSCOPIC CHOLECYSTECTOMY WITH INTRAOPERATIVE CHOLEANGIOGRAM - 10398-638 IVF: 1200 EBL: 100 Specimens: gallbladder ADDITIONAL [...] Operative note dictated in the dictation system.- [id number] Jessee Holloway MD [facility] HISTORY PHYSICALon HISTORY PHYSICAL HNO ID: [id number] Author: Jessee Holloway MD Service: General Surgery [...] more recently had an endoscopy performed at [place] where the anesthesiologist told her that she [...] HISTORY Diagnosis Date Advance care planning 08/24/2021 [facility] Diabetes mellitus, type 2 (HCC) Environmental allergies Hyperlipidemia Hypothyroidism, unspecified Liver failure (HCC) 2004 unsure of cause Migraine headache onset age 7 OPERATIONS: PAST SURGICAL HISTORY PAST SURGICAL HISTORY Procedure Laterality Date BREAST BIOPSY NEEDLE LEFT Dec 31 2014 x 2, Dr. Ronquillo COLONOSCOPY FLX DX W/COLLJ SPEC WHEN PFRMD 08/25/2003 adenomatous polyp and diverticulosis. [facility] COLONOSCOPY FLX DX W/COLLJ SPEC WHEN PFRMD 09/28/2006 No polyps found. 5 yr recall. [facility] COLONOSCOPY FLX DX W/COLLJ SPEC WHEN PFRMD 02/26/2018 Colonoscopy ESOPHAGOGASTRODUODENOSCOP Y TRANSORAL DIAGNOSTIC 08/31/2003 Unremarkable, negative biopsies. [facility] ESOPHAGOGASTRODUODENOSCOP Y TRANSORAL DIAGNOSTIC 02/26/2018 EGD [...] Frequency Provider Last (more content not included)... [facility] OPERATIVE NOon 04-05-2022 OPERATIVE NO HNO ID: [id number] Author: Jessee Holloway MD Service: General Surgery Author Type: Physician Type: Operative Report Filed: 04/05/2022 2:42 PM Note Text: [place] HOSPITAL - Operative Report NGUYEN QUEEN : 1945 AGE: 76. SEX: F PATIENT TYPE: A HOSP SVC: [facility] LOCATION: [facility] ATTENDING PHYSICIAN: Jessee Holloway M.D. CSN NUMBER: [id number] DATE OF SURGERY/PROCEDURE: 04/05/2022 INCISION/PROCEDURE START TIME: 7:58 a.m. INCISION CLOSE/PROCEDURE END TIME: 8:56 a.m. PREOPERATIVE DIAGNOSIS: Right upper quadrant pain and cholelithiasis. POSTOPERATIVE DIAGNOSIS: Right upper quadrant pain and cholelithiasis, normal cholangiogram. SURGEON: Jessee Holloway M.D. COUNTER SERVER: Renu Lucas PA-C SURGERY/PROCEDURE: Laparoscopic cholecystectomy with intraoperative cholangiogram. ANESTHESIA: General endotracheal. LOG ID NUMBER: [id number]. ANESTHESIOLOGIST: Dr. Ortiz. ASA: 3. INTRAVENOUS FLUIDS: [...] in stable condition. Renu Lucas is my assistant professor of geography. She assisted in visualization, retraction, and subcuticular closure. There were no surgeons or qualified residents available. Jessee Holloway M.D. RG:[id number] /[id number] [facility] SURGICAL PATHOLOGYon 023 CASE REPORT [facility] Comment on above: Order Comment: Speci men Type: TISSUE SPECIMEN Ordering Facility: [facility] Address: [address] [address] Result Comment: Surg ica Pathology Report Case: [id number] Authorizing Provider: Jessee Holloway MD Collected: 04/05/2022 08:45 AM Ordering Location: [facility] Surgery Received: 04/05/2022 11:24 AM Pathologist: Osmany Jennings MD Specimen: GALLBLADDER, gallbladder Performed By: #### S #### [facility] CLIA [id number] [address] [place] [address] [facility] Comment on above: Order Comment: Speci men Type: TISSUE SPECIMEN Ordering Facility: [facility] Address: [address] [place] [address] Result Comment: Pre- op diagnosis: RUQ abdominal pain [R10.11] Gallbladder calculus without cholecystitis and no obstruction [K80.20] Fatty liver [K76.0] Performed By: #### S #### [facility] CLIA [id number] [address] [place] [address] [facility] Comment on above: Order Comment: Speci men Type: TISSUE SPECIMEN Ordering Facility: [facility] Address: [address] [place] [address] Result Comment: A. G allbladder, cholecystectomy: - Active chronic follicular cholecystitis with cholelithiasis. CF/LDF 04/07/2022 Performed By: #### S #### [facility] CLIA [id number] [address] [place] [address] FINAL PERFORMING LAB Normal [facility] Comment on above: Order Comment: Speci men Type: TISSUE SPECIMEN Ordering Facility: [facility] Address: [address] [place] [address] Result Comment: Diag nostic interpretation performed at [facility], [address] [place] [address] CLIA# [id number] Second Rigger: Noble Tolliver M.D. Performed By: #### S #### [facility] CLIA [id number] [address] [place] [address] [facility] GROSS DESCRIPTION A. GALLBLADDER Normal [facility] Comment on above: Order Comment: Speci men Type: TISSUE SPECIMEN Ordering Facility: [facility] Address: [address] [id number] Result Comment: Rece ived in formalin labeled [...] black, slightly roughened calculus within the container. [place] sections to include the cystic duct margin are submitted in cassette A1. Gross examination performed at [facility], [address] [place] [address] 04/06/22 12:02 PM Performed By: #### S #### [facility] CLIA [id number] [address] [place] [address] [facility] XR Ankle - right AP and Late ral and obliqueon 08-26-2020 IMPRESSION: Mild bimalleolar soft tissue swelling. No acute bony process. Calcaneal spur. Bag Inspector: [facility] Transcribe Date/Time: Aug 26 2020 12:20P Dictated by : JANETH OLSEN MD This examination was interpreted and the report reviewed and electronically signed by: JANETH OLSEN MD on Aug 26 2020 12:22PM [facility] DIVISION OF RADIOLOGY * * *Final Report* [...] on the right. DIVISION OF RADIOLOGY [facility] * * *Final [...] swelling. No acute bony process. Calcaneal spur. Bag Inspector: [facility] Transcribe Date/Time: Aug 26 2020 12:20P Dictated by : JANETH OLSEN MD This examination was interpreted and the report reviewed and electronically signed by: JANETH OLSEN MD on Aug 26 2020 12:22PM EST [facility] XR Ankle - right AP and Late ral and obliqueOrdered By: [facility] Provider on 08-26-2020 [facility] XR HIP BILAT 5V PEL/AP/LAT E ACH HIPon 08-26-2020 IMPRESSION: 1. No acute bony process. 2. Calcification at the tendinous insertion of the greater trochanter right hip. Otherwise unremarkable. Bag Inspector: JJ Transcribe Date/Time: Aug 26 2020 12:23P Dictated by : JANETH OLSEN MD This examination was interpreted and the report reviewed and electronically signed by: JANETH OLSEN MD on Aug 26 2020 12:25PM [facility] DIVISION OF RADIOLOGY * * *Final Report* [...] relevant examinations available for comparison within the [facility] Imaging Archives. RESULT: Supine radiograph of the [...] tissues are unremarkable. DIVISION OF RADIOLOGY Provider, [facility] - 08/26/2020 * * *Final Report* * [...] relevant examinations available for comparison within the [facility] Imaging Archives. RESULT: Supine radiograph of the [...] the greater trochanter right hip. Otherwise unremarkable. Bag Inspector: JJ Transcribe Date/Time: Aug 26 2020 12:23P Dictated by : JANETH OLSEN MD This examination was interpreted and the report reviewed and electronically signed by: JANETH OLSEN MD on Aug 26 2020 12:25PM EST [facility] No Panel Informationon 08-25 Radiology Study observation (narrative) [facility] XR Lumbar spine 3 Viewson IMPRESSION: Lumbar s pine degenerative changes as described above. Bag Inspector: JJ Transcribe Date/Time: Aug 25 2020 5:01P Dictated by : MYRNA MOSLEY MD This examination was interpreted and the report reviewed and electronically signed by: MYRNA MOSLEY MD on Aug 25 2020 5:03PM [facility] DIVISION OF RADIOLOGY * * *Final Report* [...] spine are presented. FINDINGS: There are five rtv-xtr-sdyplsl lumbar vertebrae. No acute fracture seen. There [...] spine are presented. FINDINGS: There are five btq-idk-hjgzpbc lumbar vertebrae. No acute fracture seen. There is grade 1 L4 on L5 anterolisthesis. There appears be L4-5 mild disc space narrowing. There is mild to moderate osteophyte formation, with facet arthrosis in the lower lumbar spine. Kissing spine seen on lateral view. IMPRESSION IMPRESSION: Lumbar spine degenerative changes as described above. Bag Inspector: JJ Transcribe Date/Time: Aug 25 2020 5:01P Dictated by : MYRNA MOSLEY MD This examination was interpreted and the report reviewed and electronically signed by: MYRNA MOSLEY MD on Aug 25 2020 5:03PM [facility] Vital Signs Date Time Vital Sign Value Performing Clinician Facility 10-23-2024 14:05-0400 Body height 160.[address] Jeff Simeon DO Work Phone: [facility] 10-23-2024 14:05-0400 Body mass index (BMI) [Ratio] 30.7 kg/m2 Dr. Jeff Simeon DO Work Phone: [facility] 10-23-2024 14:05-0400 Body temperature 98 [degF] Dr. Jeff Simeon DO Work Phone: [facility] 10-23-2024 14:05-0400 Body weight 78.[address] Jeff Simeon DO Work Phone: [facility] 10-23-2024 14:05-0400 Diastolic blood pressure 73 mm[Hg] Dr. Jeff Simeon DO Work Phone: [facility] 10-23-2024 14:05-0400 Heart rate 75 /min Dr. Jeff Simeon DO Work Phone: [facility] 10-23-2024 14:05-0400 Respiratory rate 18 /min Dr. Jeff Simeon DO Work Phone: [facility] 10-23-2024 14:05-0400 SaO2% (BldA) [Mass fraction] 96 % Dr. Jeff Simeon DO Work Phone: [facility] 10-23-2024 14:05-0400 Systolic blood pressure 111 mm[Hg] Dr. Jeff Simeon DO Work Phone: [facility] 2024 09:42-0400 Body mass index (BMI) [Ratio] 29.58 kg/m2 Jeff Simeon DO Work Phone: [facility] 2024 09:42-0400 Body temperature 97 [degF] Jeff Simeon DO Work Phone: [facility] 2024 09:42-0400 Body weight 75.75 kg Jeff Simeon DO Work Phone: [facility] 2024 09:42-0400 Diastolic blood pressure 60 mm[Hg] Jeff Simeon DO Work Phone: [facility] 2024 09:42-0400 Heart rate 80 /min Jeff Simeon DO Work Phone: [facility] 2024 09:42-0400 Respiratory rate 16 /min Jeff Simeon DO Work Phone: [facility] 2024 09:42-0400 Systolic blood pressure 124 mm[Hg] Jeff Simeon DO Work Phone: [facility] 04-29-2024 13:13-0400 Body height 160.[address] Jeff Simeon DO Work Phone: [facility] 04-29-2024 13:13-0400 Body weight 73.[address] Jeff Simeon DO Work Phone: [facility] 04-17-2024 14:17-0500 Body mass index (BMI) [Ratio] 28.8 kg/m2 Dr. Jeff Simeon DO Work Phone: 9(504)901-843538 [place] [address] 04-17-2024 14:17-0500 Body temperature 98.2 [degF] Dr. Jeff Simeon DO Work Phone: 0(429)006-496481 [place] [address] 04-17-2024 14:17-0500 Body weight 73.[address] Jeff Simeon DO Work Phone: 0(237)485-758381 [place] [address] 04-17-2024 14:17-0500 Diastolic blood pressure 59 mm[Hg] Dr. Jeff Simeon DO Work Phone: 1(638)845-010481 [place] [address] 04-17-2024 14:17-0500 Heart rate 71 /min Dr. Jeff Simeon DO Work Phone: 8(256)136-576381 [place] [address] 04-17-2024 14:17-0500 Respiratory rate 18 /min Dr. Jeff Simeon DO Work Phone: 8(536)936-674581 [place] [address] 04-17-2024 14:17-0500 SaO2% (BldA) [Mass fraction] 96 % Dr. Jeff Simeon DO Work Phone: 1(576)305-749481 [place] [address] 04-17-2024 14:17-0500 Systolic blood pressure 120 mm[Hg] Dr. Jeff Simeon DO Work Phone: 0(935)927-855781 [place] [address] 03-27-2024 11:43-0500 Body temperature 97.1 [degF] Dr. Jeff Simeon DO Work Phone: 5(757)031-381581 [place] [address] 03-27-2024 11:43-0500 Diastolic blood pressure 44 mm[Hg] Dr. Jeff Simeon DO Work Phone: 5(056)754-201581 [place] [address] 03-27-2024 11:43-0500 Heart rate 77 /min Dr. Jeff Simeon DO Work Phone: 5(482)239-077981 [place] [address] 03-27-2024 11:43-0500 Respiratory rate 16 /min Dr. Jeff Simeon DO Work Phone: 4(923)419-027381 [place] [address] 03-27-2024 11:43-0500 SaO2% (BldA) [Mass fraction] 97 % Dr. Jeff Simeon DO Work Phone: [facility] 03-27-2024 11:43-0500 Systolic blood pressure 115 mm[Hg] Dr. Jeff Simeon DO Work Phone: [facility] 03-27-2024 08:54-0500 Body mass index (BMI) [Ratio] 28.3 kg/m2 Dr. Jeff Simeon DO Work Phone: [facility] 02-14-2024 10:51-0500 Body mass index (BMI) [Ratio] 28.59 kg/m2 Karson Crissy ENERGY TECHNICIAN.CORE FINISHER Work Phone: [facility] 02-14-2024 10:51-0500 Body weight 73.2 kg Karson Crissy ENERGY TECHNICIAN.CORE FINISHER Work Phone: [facility] 02-14-2024 10:51-0500 Diastolic blood pressure 72 mm[Hg] Karson Crissy ENERGY TECHNICIAN.CORE FINISHER Work Phone: [facility] 02-14-2024 10:51-0500 Heart rate 89 /min Karson Crissy ENERGY TECHNICIAN.CORE FINISHER Work Phone: [facility] 02-14-2024 10:51-0500 Respiratory rate 16 /min Karson Crissy ENERGY TECHNICIAN.CORE FINISHER Work Phone: [facility] 02-14-2024 10:51-0500 SaO2% (BldA) [Mass fraction] 99 % Karson Crissy ENERGY TECHNICIAN.CORE FINISHER Work Phone: [facility] 02-14-2024 10:51-0500 Systolic blood pressure 118 mm[Hg] Karson Crissy ENERGY TECHNICIAN.CORE FINISHER Work Phone: [facility] 01-24-2024 14:37-0500 Body mass index (BMI) [Ratio] 28.3 kg/m2 Dr. Jeff Simeon DO Work Phone: [facility] 01-24-2024 14:37-0500 Body temperature 97.3 [degF] Dr. Jeff Simeon DO Work Phone: 0(009)964-398381 [place] [address] 01-24-2024 14:37-0500 Body weight 72.[address] Jeff Simeon DO Work Phone: 9(748)928-015081 [place] [address] 01-24-2024 14:37-0500 Diastolic blood pressure 65 mm[Hg] Dr. Jeff Simeon DO Work Phone: 7(145)453-252381 [place] [address] 01-24-2024 14:37-0500 Heart rate 77 /min Dr. Jeff Simeon DO Work Phone: 6(431)370-819481 [place] [address] 01-24-2024 14:37-0500 Respiratory rate 18 /min Dr. Jeff Simeon DO Work Phone: 6(862)038-499881 [place] [address] 01-24-2024 14:37-0500 SaO2% (BldA) [Mass fraction] 98 % Dr. Jeff Simeon DO Work Phone: 6(371)935-754781 [place] [address] 01-24-2024 14:37-0500 Systolic blood pressure 101 mm[Hg] Dr. Jeff Simoen DO Work Phone: 8(734)105-812681 [place] [address] 01-22-2024 12:54-0500 Body mass index (BMI) [Ratio] 28.3 kg/m2 Dr. Jeff Simeon DO Work Phone: 7(729)601-280581 [place] [address] 01-22-2024 12:54-0500 Body weight 72.[address] Jeff Simeon DO Work Phone: 7(714)123-518681 [place] [address] 01-22-2024 12:54-0500 Diastolic blood pressure 60 mm[Hg] Dr. Jeff Simeon DO Work Phone: 3(081)911-967881 [place] [address] 01-22-2024 12:54-0500 Heart rate 88 /min Dr. Jeff Simeon DO Work Phone: 9(519)744-718281 [place] [address] 01-22-2024 12:54-0500 Respiratory rate 16 /min Dr. Jeff Simeon DO Work Phone: 6(939)916-241381 [place] [address] 01-22-2024 12:54-0500 SaO2% (BldA) [Mass fraction] 99 % Dr. Jeff Simeon DO Work Phone: [facility] 01-22-2024 12:54-0500 Systolic blood pressure 100 mm[Hg] Dr. Jeff Simeon DO Work Phone: [facility] 11-20-2023 09:05-0400 Diastolic blood pressure 58 mm[Hg] Jeff Kentrison DO Work Phone: [facility] 11-20-2023 09:05-0400 Heart rate 94 /min Jeff Simeon DO Work Phone: [facility] 11-20-2023 09:05-0400 Respiratory rate 16 /min Jeff Simeon DO Work Phone: [facility] 11-20-2023 09:05-0400 SaO2% (BldA) [Mass fraction] 99 % Jeff Simeon DO Work Phone: [facility] 11-20-2023 09:05-0400 Systolic blood pressure 118 mm[Hg] Jeff Kentrison DO Work Phone: [facility] 10-24-2023 13:56-0400 Body mass index (BMI) [Ratio] 31.64 kg/m2 Karson Crissy ENERGY TECHNICIAN.CORE FINISHER Work Phone: [facility] 10-24-2023 13:56-0400 Body weight 81.01 kg Karson Crissy ENERGY TECHNICIAN.CORE FINISHER Work Phone: [facility] 10-24-2023 13:56-0400 Diastolic blood pressure 58 mm[Hg] Karson Crissy ENERGY TECHNICIAN.CORE FINISHER Work Phone: [facility] 10-24-2023 13:56-0400 Heart rate 84 /min Karson Crissy ENERGY TECHNICIAN.CORE FINISHER Work Phone: [facility] 10-24-2023 13:56-0400 Respiratory rate 16 /min Karson Crissy ENERGY TECHNICIAN.CORE FINISHER Work Phone: [facility] 10-24-2023 13:56-0400 SaO2% (BldA) [Mass fraction] 100 % Karson Woodward ENERGY TECHNICIAN.CORE FINISHER Work Phone: [facility] 10-24-2023 13:56-0400 Systolic blood pressure 104 mm[Hg] Karson Woodward ENERGY TECHNICIAN.CORE FINISHER Work Phone: [facility] 07-11-2023 11:29-0400 Body mass index (BMI) [Ratio] 30.58 kg/m2 Sharyn Athy PA-C Work Phone: [facility] 07-11-2023 11:290400 Body temperature 97.59 [degF] Sharyn Athy PA-C Work Phone: [facility] 07-11-2023 11:29-0400 Body weight 78.3 kg Sharyn Athy PA-C Work Phone: [facility] 07-11-2023 11:29-0400 Diastolic blood pressure 82 mm[Hg] Sharyn Athy PA-C Work Phone: [facility] 07-11-2023 11:29-0400 Heart rate 72 /min Sharyn Athy PA-C Work Phone: [facility] 07-11-2023 11:29-0400 Respiratory rate 18 /min Sharyn Athy PA-C Work Phone: [facility] 07-11-2023 11:29-0400 SaO2% (BldA) [Mass fraction] 99 % Sharyn Athy PA-C Work Phone: [facility] 07-11-2023 11:29-0400 Systolic blood pressure 142 mm[Hg] Sharyn Athy PA-C Work Phone: [facility] 06-25-2023 15:03-0400 Body mass index (BMI) [Ratio] 29.76 kg/m2 Jeff Simeon DO Work Phone: [facility] 06-25-2023 15:03-0400 Body temperature 97 [degF] Jeff Simeon DO Work Phone: [facility] 06-25-2023 15:03-0400 Body weight 76.2 kg Jeff Simeon DO Work Phone: [facility] 06-25-2023 15:03-0400 Diastolic blood pressure 60 mm[Hg] Jeff Kentrison DO Work Phone: [facility] 06-25-2023 15:03-0400 Heart rate 80 /min Jeff Simeon DO Work Phone: [facility] 06-25-2023 15:03-0400 Respiratory rate 12 /min Jeff Simeon DO Work Phone: [facility] 06-25-2023 15:03-0400 Systolic blood pressure 110 mm[Hg] Jeff Simeon DO Work Phone: [facility] 04-04-2023 10:26-0500 Body height 160.[address] Jeff Simeon Work Phone: 2(912)321-095538 [place] [address] 04-04-2023 10:25-0500 Body mass index (BMI) [Ratio] 29.5 kg/m2 Dr. Jeff Simeon Work Phone: 9(604)434-847838 [place] [address] 04-04-2023 10:25-0500 Body temperature 98.5 [degF] Dr. Jeff Simeon Work Phone: 2(792)118-823038 [place] [address] 04-04-2023 10:25-0500 Body weight 75.[address] Jeff Simeon Work Phone: 6(414)652-530338 [place] [address] 04-04-2023 10:25-0500 Diastolic blood pressure 70 mm[Hg] Dr. Jeff Simeon Work Phone: 0(403)938-038038 [place] [address] 04-04-2023 10:25-0500 Heart rate 81 /min Dr. Jeff Simeon Work Phone: 2(302)509-189738 [place] [address] 04-04-2023 10:25-0500 Respiratory rate 18 /min Dr. Jeff Simeon Work Phone: 3(479)336-851038 [place] [address] 04-04-2023 10:25-0500 SaO2% (BldA) [Mass fraction] 99 % Dr. Jeff Simeon Work Phone: [facility] 04-04-2023 10:25-0500 Systolic blood pressure 107 mm[Hg] Dr. Jeff Simeon Work Phone: [facility] 03-21-2023 10:44-0500 Body mass index (BMI) [Ratio] 30.2 kg/m2 Dr. Jeff Simeon Work Phone: [facility] 03-21-2023 10:44-0500 Body weight 77.[address] Jeff Simeon Work Phone: 9(461)663-205738 [place] [address] 03-21-2023 10:39-0500 Body temperature 98.2 [degF] Dr. Jeff Simeon Work Phone: 0(435)928-317838 [place] [address] 03-21-2023 10:39-0500 Diastolic blood pressure 58 mm[Hg] Dr. Jeff Simeon Work Phone: 3(836)305-042038 [place] [address] 03-21-2023 10:39-0500 Heart rate 74 /min Dr. Jeff Simeon Work Phone: 1(146)858-744238 [place] [address] 03-21-2023 10:39-0500 Respiratory rate 18 /min Dr. Jeff Simeon Work Phone: [facility] 03-21-2023 10:39-0500 SaO2% (BldA) [Mass fraction] 99 % Dr. Jeff Simeon Work Phone: [facility] 03-21-2023 10:39-0500 Systolic blood pressure 115 mm[Hg] Dr. Jeff Simeon Work Phone: [facility] 03-19-2023 10:38-0500 Body weight 76.3 kg Karson Woodward APRN.CORE FINISHER Work Phone: [facility] 03-19-2023 10:38-0500 Diastolic blood pressure 64 mm[Hg] Karson Woodward APRN.CORE FINISHER Work Phone: [facility] 03-19-2023 10:38-0500 Heart rate 85 /min Karson Crissy ENERGY TECHNICIAN.CORE FINISHER Work Phone: [facility] 03-19-2023 10:38-0500 Respiratory rate 16 /min Karson Woodward ENERGY TECHNICIAN.CORE FINISHER Work Phone: [facility] 03-19-2023 10:38-0500 SaO2% (BldA) [Mass fraction] 95 % Karson Woodward ENERGY TECHNICIAN.CORE FINISHER Work Phone: [facility] 03-19-2023 10:38-0500 Systolic blood pressure 110 mm[Hg] Karson Woodward ENERGY TECHNICIAN.CORE FINISHER Work Phone: [facility] 03-11-2023 14:01-0500 Body temperature 97.2 [degF] Dr. Jeff Simeon Work Phone: 0(124)369-241938 [place] [address] 03-11-2023 14:01-0500 Diastolic blood pressure 68 mm[Hg] Dr. Jeff Simeon Work Phone: 5(416)459-374838 [place] [address] 03-11-2023 14:01-0500 Heart rate 84 /min Dr. Jeff Simeon Work Phone: 7(013)495-777638 [place] [address] 03-11-2023 14:01-0500 Respiratory rate 18 /min Dr. Jeff Simeon Work Phone: [facility] 03-11-2023 14:01-0500 SaO2% (BldA) [Mass fraction] 94 % Dr. Jeff Simeon Work Phone: [facility] 03-11-2023 14:01-0500 Systolic blood pressure 140 mm[Hg] Dr. Jeff Simeon Work Phone: [facility] 03-09-2023 14:52-0500 Body height 160.[address] Jeff Simeon Work Phone: 2(292)499-048838 [place] [address] 03-09-2023 14:52-0500 Body weight 79.[address] Jeff Simeon Work Phone: 0(929)465-239838 [place] [address] 03-06-2023 19:30-0500 Inhaled oxygen flow rate 8 L/min Dr. Jeff Simeon Work Phone: 7(504)876-837981 [place] [address] 03-05-2023 23:31-0500 Body mass index (BMI) [Ratio] 30.9 kg/m2 Dr. Jeff Simeon Work Phone: 0(445)256-482281 [place] [address] 03-05-2023 23:13-0500 Body temperature 97.8 [degF] Dr. Jeff Simeon Work Phone: 3(961)434-070781 [place] [address] 03-05-2023 23:13-0500 Diastolic blood pressure 65 mm[Hg] Dr. Jeff Simeon Work Phone: 2(706)606-273281 [place] [address] 03-05-2023 23:13-0500 Heart rate 78 /min Dr. Jeff Simeon Work Phone: 1(115)096-841981 [place] [address] 03-05-2023 23:13-0500 Respiratory rate 12 /min Dr. Jeff Simeon Work Phone: 8(925)553-244181 [place] [address] 03-05-2023 23:13-0500 SaO2% (BldA) [Mass fraction] 98 % Dr. Jeff Simeon Work Phone: [phone] [place] [address] 03-05-2023 23:13-0500 Systolic blood pressure 156 mm[Hg] Dr. Jeff Simeon Work Phone: 2(209)[phone] [place] [address] 03-05-2023 18:59-0500 Body height 160.[address] Jeff Simeon Work Phone: 9(085)[phone] [place] [address] 03-05-2023 18:59-0500 Body mass index (BMI) [Ratio] 30.6 kg/m2 Dr. Jeff Simeon Work Phone: 2(458)[phone] [place] [address] 03-05-2023 18:59-0500 Body weight 78.[address] Jeff Simeon Work Phone: 1(714)[phone] [place] [address] 12-08-2022 10:00-0400 Body temperature 96.4 [degF] Jeff Simeon DO Work Phone: 8(463)[phone] [place] [address] 12-08-2022 10:00-0400 Body weight 82.56 kg Jeff Simeon DO Work Phone: [facility] 12-08-2022 10:00-0400 Diastolic blood pressure 60 mm[Hg] Jeff Simeon DO Work Phone: [facility] 12-08-2022 10:00-0400 Heart rate 88 /min Jeff Simeon DO Work Phone: [facility] 12-08-2022 10:00-0400 Respiratory rate 16 /min Jeff Simeon DO Work Phone: [facility] 12-08-2022 10:00-0400 Systolic blood pressure 116 mm[Hg] Jeff Simeon DO Work Phone: [facility] 05-24-2022 16:10-0400 Body temperature 97.39 [degF] Jeff Simeon DO Work Phone: [facility] 05-24-2022 16:10-0400 Body weight 80.29 kg Jeff Simeon DO Work Phone: [facility] 05-24-2022 16:10-0400 Diastolic blood pressure 78 mm[Hg] Jeff Simeon DO Work Phone: [facility] 05-24-2022 16:10-0400 Heart rate 80 /min Jeff Simeon DO Work Phone: [facility] 05-24-2022 16:10-0400 Respiratory rate 16 /min Jeff Simeon DO Work Phone: [facility] 05-24-2022 16:10-0400 Systolic blood pressure 150 mm[Hg] Jeff Simeon DO Work Phone: [facility] 04-13-2022 09:01-0500 Body temperature 97.59 [degF] Nguyen [place] PA-C Work Phone: [facility] 04-13-2022 09:01-0500 Body weight 82.64 kg Nguyen [place] PA-C Work Phone: [facility] 04-13-2022 09:01-0500 Diastolic blood pressure 66 mm[Hg] Nguyen [place] PA-C Work Phone: [facility] 04-13-2022 09:01-0500 Heart rate 118 /min Nguyen Beth PA-C Work Phone: [facility] 04-13-2022 09:01-0500 SaO2% (BldA) [Mass fraction] 96 % Nguyen Beth PA-C Work Phone: [facility] 04-13-2022 09:01-0500 Systolic blood pressure 138 mm[Hg] Nguyen [place] PA-C Work Phone: [facility] 04-10-2022 13:38-0500 Body height 160 cm Nguyen Beth PA-C Work Phone: [facility] 04-10-2022 13:38-0500 Body temperature 97.2 [degF] Nguyen Beth PA-C Work Phone: [facility] 04-10-2022 13:38-0500 Body weight 83.92 kg Nguyen [place] PA-C Work Phone: [facility] 04-10-2022 13:38-0500 Diastolic blood pressure 58 mm[Hg] Nguyen [place] PA-C Work Phone: [facility] 04-10-2022 13:38-0500 Heart rate 117 /min Nguyen [place] PA-C Work Phone: [facility] 04-10-2022 13:38-0500 SaO2% (BldA) [Mass fraction] 93 % Nguyen [place] PA-C Work Phone: [facility] 04-10-2022 13:38-0500 Systolic blood pressure 118 mm[Hg] Nguyen [place] PA-C Work Phone: [facility] 04-03-2022 11:11-0500 Body height 160 cm Pac 1 Work Phone: [facility] 04-03-2022 11:11-0500 Body temperature 97.59 [degF] Pac 1 Work Phone: [facility] 04-03-2022 11:11-0500 Body weight 83.92 kg Pacc 1 Work Phone: [facility] 04-03-2022 11:11-0500 Diastolic blood pressure 70 mm[Hg] Pacc 1 Work Phone: [facility] 04-03-2022 11:11-0500 Heart rate 91 /min Pacc 1 Work Phone: [facility] 04-03-2022 11:11-0500 Respiratory rate 14 /min Pacc 1 Work Phone: [facility] 04-03-2022 11:11-0500 SaO2% (BldA) [Mass fraction] 97 % Pacc 1 Work Phone: [facility] 04-03-2022 11:11-0500 Systolic blood pressure 118 mm[Hg] Pacc 1 Work Phone: [facility] 03-24-2022 10:27-0500 Body height 160 cm Jessee Holloway MD Work Phone: [facility] 03-24-2022 10:27-0500 Body temperature 96.8 [degF] Jessee Holloway MD Work Phone: [facility] 03-24-2022 10:27-0500 Body weight 84.37 kg Jessee Holloway MD Work Phone: [facility] 03-24-2022 10:27-0500 Diastolic blood pressure 64 mm[Hg] Jessee Holloway MD Work Phone: [facility] 03-24-2022 10:27-0500 Heart rate 113 /min Jessee Holloway MD Work Phone: [facility] 03-24-2022 10:27-0500 SaO2% (BldA) [Mass fraction] 98 % Jessee Holloway MD Work Phone: [facility] 03-24-2022 10:27-0500 Systolic blood pressure 124 mm[Hg] Jessee Holloway MD Work Phone: [facility] 02-20-2022 09:30-0500 Body temperature 97.11 [degF] Jeff Simeon DO Work Phone: [facility] 02-20-2022 09:30-0500 Body weight 86.18 kg Jeff Simeon DO Work Phone: [facility] 02-20-2022 09:30-0500 Diastolic blood pressure 60 mm[Hg] Jeff Simeon DO Work Phone: [facility] 02-20-2022 09:30-0500 Heart rate 80 /min Jeff Simeon DO Work Phone: [facility] 02-20-2022 09:30-0500 Respiratory rate 16 /min Jeff Simeon DO Work Phone: [facility] 02-20-2022 09:30-0500 Systolic blood pressure 124 mm[Hg] Jeff Simeon DO Work Phone: [facility] 11-15-2021 09:11-0400 Body temperature 96.3 [degF] Jeff Simeon DO Work Phone: [facility] 11-15-2021 09:11-0400 Body weight 87.54 kg Jeff Simeon DO Work Phone: [facility] 11-15-2021 09:11-0400 Diastolic blood pressure 60 mm[Hg] Jeff Simeon DO Work Phone: [facility] 11-15-2021 09:11-0400 Heart rate 88 /min Jeff Simeon DO Work Phone: [facility] 11-15-2021 09:11-0400 Respiratory rate 16 /min Jeff Simeon DO Work Phone: [facility] 11-15-2021 09:11-0400 Systolic blood pressure 124 mm[Hg] Jeff Simeon DO Work Phone: [facility] 05-30-2021 09:15-0400 Body temperature 97 [degF] Jeff Simeon DO Work Phone: [facility] 05-30-2021 09:15-0400 Body weight 92.08 kg Jeff Simeon DO Work Phone: [facility] 05-30-2021 09:15-0400 Diastolic blood pressure 70 mm[Hg] Jeff Simeon DO Work Phone: [facility] 05-30-2021 09:15-0400 Heart rate 80 /min Jeff Simeon DO Work Phone: [facility] 05-30-2021 09:15-0400 Respiratory rate 20 /min Jeff Simeon DO Work Phone: [facility] 05-30-2021 09:15-0400 Systolic blood pressure 110 mm[Hg] Jeff Simeon DO Work Phone: [facility] Encounters Encounter Date Encounter Type Care Provider Facility Start: 01-15-2025 ambulatory Jeff Simeon Facilit y:[facility] Start: 12-23-2024 End: 12-23-2024 ambulatory JEFF L SIMEON Facility:[facility] Start: 12-22-2024 Encounter for other preprocedural examination Santosh Ballard [facility] Start: 12-19-2024 End: 12-19-2024 ambulatory FARRUKH DYE Facility:[facility] Start: 12-09-2024 End: 12-09-2024 ambulatory Jeff Simeon Facility:[facility] Start: 12-09-2024 End: 12-09-2024 ambulatory Jeff Simeon Facility:[facility] Start: 11-21-2024 End: 11-21-2024 ambulatory JEFF L SIMEON Facility:[facility] Start: 11-14-2024 End: 11-14-2024 ambulatory JEFF L SIMEON Facility:[facility] Start: 11-04-2024 End: 11-04-2024 Patient encounter procedure Jarrell Crystal DO -[facility] Work Phone: Start: 11-04-2024 End: 11-04-[address] Jeff Simeon DO Work Phone: -[facility] Start: 10-23-2024 End: 10-23-[address] Maco Singh MD -[facility] Work Phone: Start: 10-23-2024 End: 10-23-[address] Jeff Simeon DO Work Phone: -[facility] Start: 10-16-2024 ambulatory Maco Singh Facility:[facility] Start: 10-16-[address] Jayro Singh MD -[facility] Start: 09-15-2024 End: 09-15-2024 Refill Jeff Simeon DO Work Phone: [facility] Comment on above: Refill Request Start: 07-11-2024 End: 07-11-2024 Refill Jeff Simeon DO Work Phone: [facility] Comment on above: Refill Request Start: 05-30-2024 End: 05-30-2024 ambulatory Jeff Simeon Facility:[facility] Start: 05-28-2024 End: 07-28-2024 Follow-up encounter Jeff Simeon DO Work Phone: [facility] Comment on above: Results Start: 2024 End: 2024 Follow-up encounter Karson Woodward APRN.CNP Work Phone: [facility] Comment on above: Results Start: 2024 End: 2024 Subsequent hospital visit by physician [facility] Work Phone: Radiology Comment on above: Left leg swelling [M 79.89] Start: 2024 End: 2024 ambulatory JEFF SIMEON Facility:[facility] Start: 2024 End: 2024 ambulatory JEFF SIMEON Facility:[facility] Start: 2024 End: 2024 Patient encounter procedure Jeff Simeon DO Work Phone: [facility] Comment on above: Type 2 diabetes eliseo itus with hypertriglyceridemia (HCC) (Primary Dx); Hypothyroidism, acquired; Encounter for screening mammogram for malignant neoplasm of breast; Left leg swelling; Vitamin D deficiency; Vitamin B12 deficiency; Other iron deficiency anemia; Right leg swelling; Essential hypertension with goal blood pressure less than 130/80; S/P colectomy; Colon neoplasm Start: 2024 ambulatory Jeff Simeon Facilit y:[facility] Start: 05-06-2024 End: 05-06-2024 Patient encounter procedure Jarrellsuzan Crystal DO -[facility] Work Phone: Start: 05-06-2024 End: 05-06-2024 ambulatory Jeff Simeon Facility:[facility] Start: 04-29-2024 End: 05-12-[address] Maco Singh MD -[facility] Work Phone: Start: 04-29-2024 End: 05-12-[address] Jeff Simeon DO Work Phone: [facility] Work Phone: Start: 04-17-[address] Jayro Singh MD -[facility] Start: 04-17-2024 End: 04-17-[address] Maco Singh MD -[facility] Work Phone: Start: 04-17-2024 End: 04-17-2024 ambulatory Maco Singh Facility:[facility] Start: 02-14-2024 End: 03-05-2024 Telephone encounter Karson Woodward APRN.CNP Work Phone: [facility] Comment on above: call Dr. 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 Maco Singh MD -[facility] Work Phone: Start: 01-24-2024 End: 01-24-2024 ambulatory Maco Singh Facility:[facility] Start: 01-22-2024 End: 01-22-2024 Patient encounter procedure Adriana Olmedo [place] -[facility] Work Phone: Start: 01-22-2024 End: 01-22-2024 ambulatory Jeff Simeon Facility:[facility] Start: 11-20-2023 End: 11-20-2023 Patient encounter procedure Jeff Simeon DO Work Phone: [facility] Comment on above: Controlled type 2 di abetes mellitus without complication, without long-term current use of insulin (HCC) (Primary Dx); S/P colectomy; Bilateral lower extremity edema; Vitamin B12 deficiency; Hypokalemia; Colon neoplasm; Hypothyroidism, acquired; Weight loss; Muscle weakness; Gait abnormality Start: 11-14-2023 End: 11-15-2023 Telephone encounter Karsonradha Woodward YOLANDA Work Phone: [facility] Comment on above: Results Start: 11-12-2023 End: 11-13-2023 Nursing evaluation of patient and report Mi Nurse Work Phone: [facility] Comment on above: Vitamin B12 deficien cy (Primary Dx) Refill Request Start: 10-29-2023 End: 11-05-2023 Telephone encounter Jeff Simeon DO Work Phone: [facility] Comment on above: Patient Update; Medi cation Request Start: 10-29-2023 End: 10-29-2023 Nursing evaluation of patient and report Mi Nurse Work Phone: [facility] Comment on above: Vitamin B12 deficien cy (Primary Dx) Start: 10-24-2023 End: 10-24-2023 Patient encounter procedure Karson Monroelesley ESPINOZA.[employer] FINISHER Work Phone: [facility] Comment on above: Bilateral lower extr emity edema (Primary Dx); S/P colectomy; Colon neoplasm; Colitis; Hypothyroidism, acquired; 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); Vitamin B12 deficiency; Vitamin D deficiency; Iron deficiency Start: 10-24-2023 End: 11-14-2023 Telephone encounter Karson Woodward APRN.CORE FINISHER Work Phone: [facility] Comment on above: contact outside prov ider Start: 10-16-2023 End: 10-16-2023 Nursing evaluation of patient and report Mi Nurse Work Phone: [facility] Comment on above: Vitamin B12 deficien cy (Primary Dx) Refill Request Start: 10-01-2023 End: 10-03-2023 Telephone encounter Jeff Simeon DO Work Phone: [facility] Comment on above: Patient Update Start: 10-01-2023 End: 10-01-2023 Nursing evaluation of patient and report Mi Nurse Work Phone: [facility] Comment on above: Vitamin B12 deficien cy (Primary Dx) Start: 09-17-2023 End: 09-17-2023 Nursing evaluation of patient and report Mi Nurse Work Phone: [facility] Comment on above: Vitamin B12 deficien cy (Primary Dx) Start: 09-04-2023 Telephone encounter Jeff Simeon DO Work Phone: [facility] Comment on above: Orders Start: 09-03-2023 End: 09-03-2023 Nursing evaluation of patient and report Mi Nurse Work Phone: [facility] Comment on above: Vitamin B12 deficien cy (Primary Dx) Start: 08-20-2023 End: 08-20-2023 Nursing evaluation of patient and report Mi Nurse Work Phone: [facility] Comment on above: Vitamin B12 deficien cy (Primary Dx) Start: 08-07-2023 End: 08-07-2023 Nursing evaluation of patient and report Mi Nurse Work Phone: [facility] [place] Comment on above: Vitamin B12 deficien cy (Primary Dx) Start: 07-18-2023 Refill Jeff Simeon DO Work Phone: [facility] Comment on above: Refill Request Start: 07-17-2023 End: 07-17-2023 Nursing evaluation of patient and report Mi Nurse Work Phone: [facility] Comment on above: Vitamin B12 deficien cy (Primary Dx) Start: 07-11-2023 End: 07-11-2023 Patient encounter procedure Sharyn Rodriguez PA-C Work Phone: [facility] Comment on above: Bilateral impacted c erumen (Primary Dx) Start: 06-25-2023 End: 07-02-2023 Patient encounter procedure Jeff Simeon DO Work Phone: [facility] [place] Comment on above: Essential hypertensi on with goal blood pressure less than 130/80 (Primary Dx); 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); Hypertriglyceridemia; Vitamin B12 deficiency; Malabsorption syndrome; Fatty liver; Hypothyroidism, acquired; Colon neoplasm; S/P colectomy Start: 06-22-[address] lesley GUERRERO Work Phone: [facility] Comment on above: Results Start: 06-18-2023 Telephone encounter Jeff Simeon DO Work Phone: [facility] Comment on above: Lab Orders Start: 06-13-2023 End: 06-13-2023 Nursing evaluation of patient and report Mi Nurse Work Phone: [facility] Comment on above: Vitamin B12 deficien cy (Primary Dx) Start: 05-30-2023 End: 05-30-2023 Nursing evaluation of patient and report Mi Nurse Work Phone: [facility] Comment on above: Vitamin B12 deficien cy (Primary Dx) Start: 2023 End: [address] Jeff Simeon Work Phone: [facility] Work Phone: Start: 2023 End: [address] Jeff Simeon Work Phone: [facility] Work Phone: Start: 05-16-2023 End: 05-16-2023 Nursing evaluation of patient and report Mi Nurse Work Phone: [facility] Comment on above: Vitamin B12 deficien cy (Primary Dx) Start: 05-02-2023 End: 05-02-2023 Nursing evaluation of patient and report Mi Nurse Work Phone: [facility] Comment on above: Vitamin B12 deficien cy (Primary Dx) Start: 04-16-2023 End: 04-16-2023 Nursing evaluation of patient and report Mi Nurse Work Phone: [facility] Comment on above: Vitamin B12 deficien cy (Primary Dx) Start: 04-12-2023 End: 04-12-[address] Jeff Simeon Work Phone: [facility] Work Phone: Start: 04-11-2023 End: 04-11-[address] Jeff Simeon Work Phone: [facility] Work Phone: Start: 04-11-2023 End: 04-11-[address] Jeff Simeon Work Phone: [facility] Work Phone: Start: 04-04-2023 End: 04-04-[address] Jeff Simeon Work Phone: [facility] Work Phone: Start: 04-04-2023 Non-patient / Non-visit Dr. Sandra Simeon Work Phone: [facility] Start: 04-04-2023 End: 04-04-2023 Nursing evaluation of patient and report Mi Nurse Work Phone: [facility] Comment on above: Vitamin B12 deficien cy (Primary Dx) Start: 04-04-2023 End: 04-04-[address] Jeff Simeon Work Phone: [facility] Work Phone: Start: 03-22-2023 End: 03-22-[address] Jeff Simeon Work Phone: [facility] Work Phone: Start: 03-22-2023 End: 03-22-2023 Nursing evaluation of patient and report Mi Nurse Work Phone: [facility] Comment on above: Vitamin B12 deficien cy (Primary Dx) Start: 03-22-[address] Denver Simeon Work Phone: [facility] Start: 03-21-2023 End: 03-21-[address] Jeff Simeon Work Phone: [facility] Work Phone: Start: 03-19-2023 End: 03-19-2023 Patient encounter procedure Karson Woodward APRN.CNP Work Phone: [facility] Comment on above: Colon neoplasm (Prim kevin Dx); S/P colectomy; Nausea Start: 03-15-2023 End: 03-15-[address] 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 Sandra Simeon Work Phone: [facility] Work Phone: Start: 03-10-2023 Non-patient / Non-visit Dr. Sandra Simeon Work Phone: [facility] Work Phone: Start: 03-10-2023 Non-patient / Non-visit Dr. Sandra Simeon Work Phone: [facility] Start: 03-09-2023 Non-patient / Non-visit Dr. Sandra Simeon Work Phone: [facility] Work Phone: Start: 03-09-2023 Non-patient / Non-visit Dr. Sandra Simeon Work Phone: [facility] Start: 03-08-2023 Non-patient / Non-visit Dr. Sandra Simeon Work Phone: [facility] Work Phone: Start: 03-08-2023 Non-patient / Non-visit Dr. Sandra Simeon Work Phone: [facility] Start: 03-07-2023 Non-patient / Non-visit Dr. Sandra Simeon Work Phone: [facility] Work Phone: Start: 03-07-2023 Non-patient / Non-visit Dr. Sandra Simeon Work Phone: [facility] Start: 03-06-2023 Non-patient / Non-visit Dr. Sandra Simeon Work Phone: [facility] Work Phone: Start: 03-05-2023 Non-patient / Non-visit Dr. Sandra Simeon Work Phone: [facility] Start: 03-05-2023 End: 03-11-2023 Evaluation and management of inpatient Dr. Jeff iSmeon Work Phone: [facility] Work Phone: Start: 01-25-2023 End: 01-25-2023 Nursing evaluation of patient and report Mi Nurse Work Phone: [facility] Comment on above: Vitamin B12 deficien cy (Primary Dx) Start: 12-28-2022 End: 12-28-2022 Nursing evaluation of patient and report Mi Nurse Work Phone: [facility] Comment on above: Vitamin B12 deficien cy (Primary Dx) Start: 12-08-2022 End: 12-08-2022 Patient encounter procedure Jeff Simeon DO Work Phone: [facility] Comment on above: Controlled type 2 di abetes mellitus without complication, without long-term current use of insulin (HCC) (Primary Dx); Elevated alkaline phosphatase level; Vitamin B12 deficiency; Hypothyroidism, acquired; Iron deficiency; Vitamin D deficiency; Hypertriglyceridemia; Fatigue, unspecified type; Fatty liver Start: 11-30-2022 End: 11-30-2022 Nursing evaluation of patient and report Mi Nurse Work Phone: [facility] Comment on above: Vitamin B12 deficien cy (Primary Dx) Start: 11-16-2022 End: 11-16-2022 Nursing evaluation of patient and report Mi Nurse Work Phone: [facility] Comment on above: Vitamin B12 deficien cy (Primary Dx) Start: 11-03-2022 End: 11-03-2022 Nursing evaluation of patient and report Mi Nurse Work Phone: [facility] [place] Comment on above: Vitamin B12 deficien cy (Primary Dx) Start: 10-17-2022 End: 10-17-2022 Nursing evaluation of patient and report Mi Nurse Work Phone: [facility] [place] Comment on above: Vitamin B12 deficien cy (Primary Dx) Start: 10-05-2022 Telephone encounter Jeff Simeon DO Work Phone: [facility] Start: 10-02-2022 End: 10-02-2022 Nursing evaluation of patient and report Mi Nurse Work Phone: [facility] Comment on above: Vitamin B12 deficien cy (Primary Dx) Start: 09-19-2022 End: 09-19-2022 Nursing evaluation of patient and report Mi Nurse Work Phone: [facility] [place] Comment on above: Vitamin B12 deficien cy (Primary Dx) Start: 08-07-2022 End: 08-07-2022 Nursing evaluation of patient and report Mi Nurse Work Phone: [facility] Comment on above: Other vitamin B12 de ficiency anemia (Primary Dx) Start: 07-11-2022 End: 07-11-2022 Nursing evaluation of patient and report Mi Nurse Work Phone: [facility] [place] Comment on above: Other vitamin B12 de ficiency anemia (Primary Dx) Start: 06-12-2022 End: 06-12-2022 Nursing evaluation of patient and report Mi Nurse Work Phone: [facility] [place] Comment on above: Other vitamin B12 de ficiency anemia (Primary Dx) Start: 05-24-2022 End: 05-24-2022 Patient encounter procedure Jeff Steele Simeon DO Work Phone: [facility] Comment on above: Controlled type 2 di abetes mellitus without complication, without long-term current use of insulin (HCC) (Primary Dx); RUQ abdominal pain; Calculus of gallbladder without cholecystitis without obstruction; Fatty liver; Hypothyroidism, acquired; Vitamin D deficiency; Other vitamin B12 deficiency anemia; Iron deficiency Start: 05-22-2022 End: 05-22-2022 ambulatory [facility] Work Phone: Start: 05-22-2022 End: 05-22-2022 Patient encounter procedure [facility] Start: 05-15-2022 End: 05-15-2022 Nursing evaluation of patient and report Mi Nurse Work Phone: [facility] Comment on above: Vitamin B12 deficien cy (Primary Dx) Start: 04-13-2022 End: 04-13-2022 Patient encounter procedure Nguyen Graf JACKSON Work Phone: General Surgery Comment on above: Aftercare following surgery (Primary Dx) Start: 04-10-2022 End: 04-10-2022 Patient encounter procedure Nguyen Campos RENETTA Work Phone: General Surgery Comment on above: Post-op pain (Primar y Dx); S/P laparoscopic cholecystectomy Start: 04-05-2022 End: 04-06-2022 ambulatory JESSEE HOLLOWAY Facility:[facility] Start: 04-03-2022 End: 04-03-2022 Admission to establishment [facility] [place] [facility] Work Phone: [facility] [place] Start: 04-03-2022 End: 04-03-2022 ambulatory [...] patient and report Mi Nurse Work Phone: [facility] [place] Comment on above: Vitamin B12 deficien cy (Primary Dx) Start: 03-16-2022 Telephone encounter Jeff Simeon DO Work Phone: [facility] [place] Comment on above: Results Start: 02-20-2022 End: 02-20-2022 Patient encounter procedure Jeff Simeon DO Work Phone: [facility] [place] Comment on above: Controlled type 2 di abetes mellitus without complication, without long-term current use of insulin (HCC) (Primary Dx); Encounter for screening mammogram for malignant neoplasm of breast; Hypothyroidism, acquired; Vitamin B12 deficiency; Other vitamin B12 deficiency anemia; Vitamin D deficiency; Iron deficiency; Malabsorption syndrome; Hypertriglyceridemia Start: 01-17-2022 End: 01-17-2022 Nursing evaluation of patient and report Mi Nurse Work Phone: [facility] [place] Comment on above: Vitamin B12 deficien cy (Primary Dx) Start: 12-20-2021 End: 12-20-2021 Nursing evaluation of patient and report Mi Nurse Work Phone: [facility] [place] Comment on above: Vitamin B12 deficien cy (Primary Dx) Start: 11-15-2021 End: 11-15-2021 Patient encounter procedure Jeff Simeon DO Work Phone: [facility] [place] Comment on above: Uncontrolled type 2 diabetes mellitus with hyperglycemia (HCC) (Primary Dx); Vitamin B12 deficiency; Controlled type 2 diabetes mellitus without complication, without long-term current use of insulin (HCC); Hypothyroidism, acquired; Other vitamin B12 deficiency anemia; Iron deficiency; Vitamin D deficiency Start: 10-20-2021 End: 10-20-2021 Nursing evaluation of patient and report Mi Nurse Work Phone: [facility] [place] Comment on above: Vitamin B12 deficien cy (Primary Dx) Start: 07-18-2021 End: 07-18-2021 Nursing evaluation of patient and report Mi Nurse Work Phone: [facility] [place] Comment on above: Vitamin B12 deficien cy (Primary Dx) Start: 07-04-2021 End: 07-04-2021 Nursing evaluation of patient and report Mi Nurse Work Phone: [facility] [place] Comment on above: Vitamin B12 deficien cy (Primary Dx) Start: 06-20-2021 End: 06-20-2021 Nursing evaluation of patient and report Mi Nurse Work Phone: [facility] [place] Comment on above: Vitamin B12 deficien cy (Primary Dx) Start: 06-06-2021 End: 06-06-2021 Nursing evaluation of patient and report Mi Nurse Work Phone: [facility] [place] Comment on above: Vitamin B12 deficien cy (Primary Dx) Start: 05-30-2021 End: 05-30-2021 Patient encounter procedure Jeff Simeon DO Work Phone: [facility] [place] Comment on above: Controlled type 2 di abetes mellitus without complication, without long-term current use of insulin (HCC) (Primary Dx); Vitamin B12 deficiency; Malabsorption syndrome; Other vitamin B12 deficiency anemia; Fatigue, unspecified type; Other iron deficiency anemia; Hypothyroidism, acquired; Hypertriglyceridemia Start: 05-25-2021 Telephone encounter Karson Angeles YOLANDA Work Phone: [facility] [place] Comment on above: Results Start: 05-20-2021 End: 05-20-2021 Patient encounter procedure [facility] Start: 05-18-2021 Telephone encounter Jeff Simeon DO Work Phone: [facility] [place] Comment on above: Orders Start: 08-25-2020 End: 08-25-2020 Subsequent hospital visit by physician Xr [facility] [place] Work Phone: Radiology Comment on above: Chronic pain of righ t ankle [M25.571, G89.29] Start: 02-26-2018 End: 02-26-2018 Patient encounter procedure TIFFANYPura SETHI EDUARDO [facility] Procedures Date Procedure Procedure Detail Performing Clinician [...] the presence orabsence of malignant disease.Performed at: [address] [id number] Director: Flako Araujo PhD, Phone: [phone] Start: 04-17-[address] Jeff Simeon DO [...] colitis,primary sclerosing cholangitis and autoimmune hepatitis.Performed at: [address] [id number] Director: Chary Cox MD, Phone: [phone] at: [address] [id number] Director: Flako Araujo PhD, Phone: [phone] Start: 11-19-2023 Antibody to centromere measurement Dr. 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 Jeff Simeon DO Work [...] Activity Detail Author Start: 02-27-2028 Colonoscopy COLONOSCOPY [facility] Start: 02-27-2028 COLORECTAL CANCER SCREENING COLORECTAL CANCER SCREENING [facility] Start: 02-27-2028 Screening for malignant neoplasm of colon [facility] Start: 2025 Annual PCP Team Chronic Disease Visit Annual PCP Team Chronic Disease Visit [facility] Start: 2025 BP Controlled (<130/80) BP Controlled (<130/80) [facility] Start: 2025 Covid-19 Vaccine () Covid-19 Vaccine () [facility] Comment on above: Postponed from 10/14/2023 (Declined at t his time) Start: 04-09-2025 Vitamin B12 measurement [facility] Start: 02-13-2025 Annual PCP Team Chronic Disease Visit Annual PCP Team Chronic Disease Visit [facility] Start: 02-13-2025 BP Controlled (<130/80) BP Controlled (<130/80) [facility] Start: 02-03-2025 Hepatitis B surface antibody level LDL Cholesterol [facility] Start: 01-03-2025 Glaucoma screening Dilated Retinal Exam [facility] Start: 11-21-2024 End: 11-21-2024 Patient encounter procedure 11/21/2024 9:40 AM EDT Office Visit Family Dale Garcia [address] [place] [id number] Jeff Simeon DO [address] [place] [id number] 6 month follow up Family Dale Garcia Comment on above: 6 month follow up Start: 11-19-2024 Annual PCP Team Chronic Disease Visit Annual PCP Team Chronic Disease Visit [facility] Start: 11-19-2024 BP Controlled (<130/80) BP Controlled (<130/80) [facility] Start: 10-23-2024 Annual PCP Team Chronic Disease Visit Annual PCP Team Chronic Disease Visit [facility] Start: 10-23-2024 BP Controlled (<130/80) BP Controlled (<130/80) [facility] Start: 10-13-2024 Influenza vaccination [facility] Start: 08-11-2024 Influenza [facility] Comment on above: Postponed from 10/14/2023 (Declined at t his time) Start: 08-04-2024 Hemoglobin A1c measurement HbA1C [facility] Start: 06-24-2024 Annual PCP Team Chronic Disease Visit Annual PCP Team Chronic Disease Visit [facility] Start: 06-24-2024 Anxiety Screening Anxiety Screening [facility] Start: 06-24-2024 BP Controlled (<130/80) BP Controlled (<130/80) [facility] Start: 06-24-2024 Depression Screening Depression Screening [facility] Start: 2024 End: 08-22-2024 25-hydroxyvitamin D3 [Mass/volume] in Serum or Plasma [facility] Comment on above: Expected: 2024, Expires: Start: 2024 End: 08-22-2024 Cobalamin (Vitamin B12) [Mass/volume] in Serum or Plasma [facility] Comment on above: Expected: 2024, Expires: Start: 2024 End: 08-22-2024 Thyrotropin [Units/volume] in Serum or Plasma [facility] Comment on above: Expected: 2024, Expires: Start: 2024 End: 08-22-2024 Thyroxine (T4) free [Mass/volume] in Serum or Plasma [facility] Comment on above: Expected: 2024, Expires: Start: 2024 End: 2024 Patient encounter procedure 2024 9:40 AM EDT Office Visit [facility] [place] [address] [place], [place] [id number] Jeff Simeon DO [address] [place] [address] 3 month follow up Family Dale Garcia Comment on above: 3 month follow up Start: 05-13-2024 Hemoglobin A1c measurement HbA1C [facility] Start: 03-19-2024 Annual PCP Team Chronic Disease Visit Annual PCP Team Chronic Disease Visit [facility] Start: 03-19-2024 BP Controlled (<130/80) BP Controlled (<130/80) [facility] Start: 02-27-2024 Patient referral [facility] Work Phone: Start: 02-14-2024 End: 02-14-2024 Patient encounter procedure 02/14/2024 10:20 AM EST Office Visit Family Dale Garcia [address] [place] [address] Karson Woodward APRN.CORE FINISHER [address] [place] [address] 3 mo follow up Family Dale Garcia Comment on above: 3 mo follow up Start: 02-13-2024 [facility] Annual Wellness Visit [facility] Annual Wellness Visit [facility] Start: 02-01-2024 End: 05-02-2024 25-hydroxyvitamin D3 [Mass/volume] in Serum or Plasma VITAMIN D 25 HYDROXY Lab Routine Vitamin D deficiency Expected: 02/01/2024, Expires: 05/02/2024 [facility] Comment on above: Expected: 02/01/2024, Expires: Start: 02-01-2024 End: 05-02-2024 CBC panel - Blood by Automated count COMPLETE BLOOD COUNT Lab Routine Essential hypertension with goal blood pressure less than 130/80 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) Iron deficiency Expected: 02/01/2024, Expires: 05/02/2024 [facility] Comment on above: Expected: 02/01/2024, Expires: Start: 02-01-2024 End: 05-02-2024 Cobalamin (Vitamin B12) [Mass/volume] in Serum or Plasma VITAMIN B12 Lab Routine Vitamin B12 deficiency Expected: 02/01/2024, Expires: 05/02/2024 [facility] Comment on above: Expected: 02/01/2024, Expires: Start: 02-01-2024 End: 05-02-2024 Comprehensive metabolic 2000 panel - Serum or Plasma COMPREHENSIVE METABOLIC PANEL Lab Routine Essential hypertension with goal blood pressure less than 130/80 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) Fatty liver Expected: 02/01/2024, Expires: 05/02/2024 [facility] Comment on above: Expected: 02/01/2024, Expires: Start: 02-01-2024 End: 05-02-2024 Ferritin [Mass/volume] in Serum or Plasma FERRITIN Lab Routine Iron deficiency Expected: 02/01/2024, Expires: 05/02/2024 [facility] Comment on above: Expected: 02/01/2024, Expires: Start: 02-01-2024 End: 05-02-2024 Hemoglobin A1c in Blood HEMOGLOBIN A1C Lab Routine 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) Expected: 02/01/2024, Expires: 05/02/2024 [facility] Work Phone: Comment on above: Expected: 02/01/2024, Expires: Start: 02-01-2024 End: 05-02-2024 Iron and Iron binding capacity panel - Serum or Plasma IRON AND TIBC Lab Routine Iron deficiency Expected: 02/01/2024, Expires: 05/02/2024 [facility] Comment on above: Expected: 02/01/2024, Expires: Start: 02-01-2024 End: 05-02-2024 Lipid 1996 panel - Serum or Plasma LIPID PANEL BASIC Lab Routine Hypertriglyceridemia Expected: 02/01/2024, Expires: 05/02/2024 [facility] Comment on above: Expected: 02/01/2024, Expires: Start: 02-01-2024 End: 05-02-2024 Thyrotropin [Units/volume] in Serum or Plasma THYROID STIMULATING HORMONE Lab Routine Hypothyroidism, acquired Expected: 02/01/2024, Expires: 05/02/2024 [facility] Comment on above: Expected: 02/01/2024, Expires: 5 Start: 02-01-2024 End: 05-02-2024 Thyroxine (T4) free [Mass/volume] in Serum or Plasma T4 FREE/FREE THYROXINE Lab Routine Hypothyroidism, acquired Expected: 02/01/2024, Expires: 05/02/2024 [facility] Comment on above: Expected: 02/01/2024, Expires: 5 Start: 01-23-2024 End: 04-23-2024 CBC panel - Blood by Automated count COMPLETE BLOOD COUNT Lab Routine Iron deficiency Expected: 01/23/2024, Expires: 04/23/2024 [facility] Work Phone: Comment on above: Expected: 01/23/2024, Expires: Start: 12-21-2023 Hemoglobin A1c measurement HbA1C [facility] Start: 12-09-2023 Annual PCP Team Chronic Disease Visit Annual PCP Team Chronic Disease Visit [facility] Start: 12-09-2023 BP Controlled (<130/80) BP Controlled (<130/80) [facility] Start: 12-09-2023 Covid-19 Vaccine () Covid-19 Vaccine () [facility] Comment on above: Postponed from 10/13/2022 (Declined at t his time) Start: 12-01-2023 Hepatitis B screening Urine Albumin:Creatinine Ratio [facility] Start: 12-01-2023 Hepatitis B surface antibody level LDL Cholesterol [facility] Start: 11-28-2023 End: 02-27-2024 Potassium [Moles/volume] in Serum or Plasma POTASSIUM Lab Routine Hypokalemia Expected: 11/28/2023 (Approximate), Expires: 02/27/2024 [facility] Work Phone: Comment on above: Expected: 11/28/2023 (Approximate), Expi res: 02/27/2024 Start: 11-26-2023 End: 11-26-2023 Nursing evaluation of patient and report 11/26/2023 10:00 AM EDT Nurse Visit [facility] [place] [address] [place] [address] Nurse, [place] [address] [place] [address] B-12 injection [facility] [place] Comment on above: B-12 injection Start: 11-20-2023 End: 11-20-2023 Patient encounter procedure 11/20/2023 8:40 AM EDT Office Visit Family [facility] Garcia [address] [place] [address] Jeff Simeon DO [address] [place] [address] 3 month follow up [facility] [place] Comment on above: 3 month follow up Start: 11-12-2023 End: 11-12-2023 Nursing evaluation of patient and report 11/12/2023 10:45 AM EDT Nurse Visit [facility] [place] [address] [place] [address] Nurse, [place] [address] [place] [address] B-12 injection [facility] [place] Comment on above: B-12 injection Start: 10-29-2023 End: 10-29-2023 Nursing evaluation of patient and report 10/29/2023 9:45 AM EDT Nurse Visit [facility] [place] [address] [place] [address] Nurse, [place] [address] [place] [address] B-12 injection [facility] [place] Comment on above: B-12 injection Start: 10-24-2023 End: 01-23-2024 25-hydroxyvitamin D3 [Mass/volume] in Serum or Plasma VITAMIN D 25 HYDROXY Lab Routine Vitamin D deficiency Expected: 10/24/2023, Expires: 01/23/2024 [facility] Comment on above: Expected: 10/24/2023, Expires: Start: 10-24-2023 End: 01-23-2024 Cobalamin (Vitamin B12) [Mass/volume] in Serum or Plasma VITAMIN B12 Lab Routine Vitamin B12 deficiency Expected: 10/24/2023, Expires: 01/23/2024 [facility] Comment on above: Expected: 10/24/2023, Expires: Start: 10-24-2023 End: 01-23-2024 Comprehensive metabolic 2000 panel - Serum or Plasma COMPREHENSIVE METABOLIC PANEL Lab Routine 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) Expected: 10/24/2023, Expires: 01/23/2024 [facility] Comment on above: Expected: 10/24/2023, Expires: 4 Start: 10-24-2023 End: 01-23-2024 Ferritin [Mass/volume] in Serum or Plasma FERRITIN Lab Routine Iron deficiency Expected: 10/24/2023, Expires: 01/23/2024 [facility] Comment on above: Expected: 10/24/2023, Expires: Start: 10-24-2023 End: 01-23-2024 Hemoglobin A1c in Blood HEMOGLOBIN A1C Lab Routine 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) Expected: 10/24/2023, Expires: 01/23/2024 [facility] Comment on above: Expected: 10/24/2023, Expires: Start: 10-24-2023 End: 01-23-2024 Iron and Iron binding capacity panel - Serum or Plasma IRON AND TIBC Lab Routine Iron deficiency Expected: 10/24/2023, Expires: 01/23/2024 [facility] Comment on above: Expected: 10/24/2023, Expires: 4 Start: 10-24-2023 End: 01-23-2024 Thyrotropin [Units/volume] in Serum or Plasma THYROID STIMULATING HORMONE Lab Routine Hypothyroidism, acquired Expected: 10/24/2023, Expires: 01/23/2024 [facility] Comment on above: Expected: 10/24/2023, Expires: Start: 10-24-2023 End: 01-23-2024 Thyroxine (T4) free [Mass/volume] in Serum or Plasma T4 FREE/FREE THYROXINE Lab Routine Hypothyroidism, acquired Expected: 10/24/2023, Expires: 01/23/2024 [facility] Comment on above: Expected: 10/24/2023, Expires: Start: 10-16-2023 End: 10-16-2023 Nursing evaluation of patient and report 10/16/2023 9:45 AM EDT Nurse Visit [facility] [place] [address] [place] [address] Nurse, [place] [address] [place] [address] B-12 injection [facility] [place] Comment on above: B-12 injection Start: 10-14-2023 Covid-19 Vaccine () Covid-19 Vaccine () [facility] Start: 10-14-2023 Covid-19 Vaccine () Covid-19 Vaccine () [facility] Start: 10-14-2023 Influenza vaccination [facility] Start: 10-01-2023 End: 10-01-2023 Nursing evaluation of patient and report 10/01/2023 9:45 AM EDT Nurse Visit [facility] [place] [address] [place] [address] Nurse, [place] [address] [place] [address] B-12 injection [facility] [place] Comment on above: B-12 injection Start: 09-17-2023 End: 09-17-2023 Nursing evaluation of patient and report 09/17/2023 9:45 AM EDT Nurse Visit [facility] [place] [address] [place] [address] Nurse, [place] [address] [place] [address] B-12 injection [facility] [place] Comment on above: B-12 injection Start: 09-06-2023 3 comp foot exam completed DIABETIC FOOT EXAM [facility] Start: 09-06-2023 ANNUAL PCP TEAM CHRONIC DISEASE VISIT ANNUAL PCP TEAM CHRONIC DISEASE VISIT [facility] Start: 09-06-2023 BP CONTROLLED (<130/80) BP CONTROLLED (<130/80) [facility] Start: 09-06-2023 Diabetic foot examination Diabetic Foot Exam [facility] Start: 09-03-2023 End: 09-03-2023 Nursing evaluation of patient and report 09/03/2023 9:45 AM EDT Nurse Visit [facility] [place] [address] [place] [address] Nurse, [place] [address] [place] [address] B-12 injection [facility] [place] Comment on above: B-12 injection Start: 08-29-2023 Hemoglobin A1c measurement HbA1C [facility] Start: 08-20-2023 End: 08-20-2023 Nursing evaluation of patient and report 08/20/2023 9:45 AM EDT Nurse Visit [facility] [place] [address] [place] [address] Nurse, [place] [address] [place] [address] B-12 injection [facility] [place] Comment on above: B-12 injection Start: 08-12-2023 Influenza vaccination [facility] Comment on above: Postponed from 10/13/2022 (Declined at t his time) Start: 08-07-2023 End: 08-07-2023 Nursing evaluation of patient and report 08/07/2023 10:15 AM EDT Nurse Visit [facility] [place] [address] [facility] [place] [address] Nurse, [place] [address] [place] [address] B-12 injection [facility] [place] Comment on above: B-12 injection Start: 07-17-2023 End: 07-17-2023 Nursing evaluation of patient and report 07/17/2023 10:00 AM EDT Nurse Visit [facility] [place] [address] [place] [address] Nurse, [place] [address] [place] [address] B-12 injection [facility] [place] Comment on above: B-12 injection Start: 06-25-2023 End: 06-25-2023 Patient encounter procedure 06/25/2023 3:00 PM EDT Office Visit [facility] [place] [address] [facility] [place] [address] Jeff Simeon DO [address] [place] [address] 3 month follow up; B-12 injection [facility] [place] Comment on above: 3 month follow up; B-12 injection Start: 06-18-2023 End: 09-17-2023 25-hydroxyvitamin D3 [Mass/volume] in Serum or Plasma VITAMIN D 25 HYDROXY Lab Routine Vitamin D deficiency Expected: 06/18/2023, Expires: 09/17/2023 [facility] [place] Comment on above: Expected: 06/18/2023, Expires: Start: 06-18-2023 End: 09-17-2023 CBC panel - Blood by Automated count COMPLETE BLOOD COUNT Lab Routine Controlled type 2 diabetes mellitus without complication, without long-term current use of insulin ([facility]) Expected: 06/18/2023, Expires: 09/17/2023 [facility] [place] Comment on above: Expected: 06/18/2023, Expires: Start: 06-18-2023 End: 09-17-2023 Cobalamin (Vitamin B12) [Mass/volume] in Serum or Plasma VITAMIN B12 Lab Routine Vitamin B12 deficiency Expected: 06/18/2023, Expires: 09/17/2023 [facility] [place] Comment on above: Expected: 06/18/2023, Expires: Start: 06-18-2023 End: 09-17-2023 Comprehensive metabolic 2000 panel - Serum or Plasma COMPREHENSIVE METABOLIC PANEL Lab Routine Controlled type 2 diabetes mellitus without complication, without long-term current use of insulin (HCC) Expected: 06/18/2023, Expires: 09/17/2023 [facility] [place] Comment on above: Expected: 06/18/2023, Expires: Start: 06-18-2023 End: 09-17-2023 Hemoglobin A1c in Blood HEMOGLOBIN A1C Lab Routine Controlled type 2 diabetes mellitus without complication, without long-term current use of insulin (HCC) Expected: 06/18/2023, Expires: 09/17/2023 [facility] [place] Comment on above: Expected: 06/18/2023, Expires: Start: 06-18-2023 End: 09-17-2023 Iron and Iron binding capacity panel - Serum or Plasma IRON AND TIBC Lab Routine Iron deficiency Expected: 06/18/2023, Expires: 09/17/2023 [facility] [place] Comment on above: Expected: 06/18/2023, Expires: Start: 06-18-2023 End: 09-17-2023 Thyrotropin [Units/volume] in Serum or Plasma THYROID STIMULATING HORMONE Lab Routine Hypothyroidism, acquired Expected: 06/18/2023, Expires: 09/17/2023 [facility] Work Phone: Comment on above: Expected: 06/18/2023, Expires: Start: 06-18-2023 End: 09-17-2023 Thyroxine (T4) free [Mass/volume] in Serum or Plasma T4 FREE/FREE THYROXINE Lab Routine Hypothyroidism, acquired Expected: 06/18/2023, Expires: 09/17/2023 [facility] [place] Comment on above: Expected: 06/18/2023, Expires: Start: 06-01-2023 Hemoglobin A1c measurement HbA1C [facility] [place] Start: 06-01-2023 Hemoglobin A1c/Hemoglobin.total in Blood HbA1C [facility] [place] Start: 05-25-2023 ANNUAL PCP TEAM CHRONIC DISEASE VISIT ANNUAL PCP TEAM CHRONIC DISEASE VISIT [facility] [place] Start: 05-18-2023 Hepatitis B surface antibody level LDL CHOLESTEROL [facility] [place] Start: 04-12-2023 Patient referral [facility] Work Phone: Start: 04-03-2023 BP CONTROLLED (<130/80) BP CONTROLLED (<130/80) [facility] Start: 03-24-2023 BP CONTROLLED (<130/80) BP CONTROLLED (<130/80) [facility] Start: 03-15-2023 Patient referral [facility] Work Phone: Start: 03-11-2023 Patient discharge [facility] Start: 03-10-2023 End: 06-09-2023 25-hydroxyvitamin D3 [Mass/volume] in Serum or Plasma VITAMIN D 25 HYDROXY Lab Routine Vitamin D deficiency Expected: 03/10/2023, Expires: 06/09/2023 [facility] Work Phone: Comment on above: Expected: 03/10/2023, Expires: Start: 03-10-2023 End: 06-09-2023 CBC panel - Blood by Automated count CBC Lab Routine Controlled type 2 diabetes mellitus without complication, without long-term current use of insulin (HCC) Iron deficiency Expected: 03/10/2023, Expires: 06/09/2023 [facility] Work Phone: Comment on above: Expected: 03/10/2023, Expires: Start: 03-10-2023 End: 06-09-2023 Cobalamin (Vitamin B12) [Mass/volume] in Serum or Plasma VITAMIN B12 BLOOD Lab Routine Vitamin B12 deficiency Expected: 03/10/2023, Expires: 06/09/2023 [facility] Work Phone: Comment on above: Expected: 03/10/2023, Expires: Start: 03-10-2023 End: 06-09-2023 Comprehensive metabolic 2000 panel - Serum or Plasma COMP METABOLIC PANEL Lab Routine Controlled type 2 diabetes mellitus without complication, without long-term current use of insulin (HCC) Iron deficiency Expected: 03/10/2023, Expires: 06/09/2023 [facility] Work Phone: Comment on above: Expected: 03/10/2023, Expires: Start: 03-10-2023 End: 06-09-2023 Hemoglobin A1c in Blood HGB A1C Lab Routine Controlled type 2 diabetes mellitus without complication, without long-term current use of insulin (HCC) Expected: 03/10/2023, Expires: 06/09/2023 [facility] Work Phone: Comment on above: Expected: 03/10/2023, Expires: Start: 03-10-2023 End: 06-09-2023 Iron and Iron binding capacity panel - Serum or Plasma IRON + TIBC Lab Routine Iron deficiency Expected: 03/10/2023, Expires: 06/09/2023 [facility] Work Phone: Comment on above: Expected: 03/10/2023, Expires: Start: 03-07-2023 [facility] Start: 03-06-2023 Computed tomography of abdomen and pelvis with contrast Abdomen/Pelvis WITH Contrast [facility] Start: 03-06-2023 Care regimes management [facility] Start: 03-06-2023 Notification of physician [facility] Start: 03-06-2023 [facility] Start: 03-06-2023 Consultation [facility] Start: 03-06-2023 Blood chemistry [facility] Start: 03-05-2023 Following clinical pathway protocol [facility] Start: 03-05-2023 Application of intermittent pneumatic compression device [facility] Start: 03-05-2023 Hospital admission, emergency, from emergency room, medical nature [facility] Start: 03-05-2023 Incentive spirometry [facility] Start: 03-05-2023 [facility] Start: 03-05-2023 Admission procedure [facility] Start: 03-01-2023 Hemoglobin A1c/Hemoglobin.total in Blood HBA1C [facility] Start: 02-20-2023 ANNUAL PCP TEAM CHRONIC DISEASE VISIT ANNUAL PCP TEAM CHRONIC DISEASE VISIT [facility] Start: 02-20-2023 BP CONTROLLED (<130/80) BP CONTROLLED (<130/80) [facility] Start: 02-12-2023 Behavioral Health Screening Behavioral Health Screening [facility] [place] Start: 02-12-2023 Depression Assessment Depression Assessment [facility] [place] Start: 12-27-2022 Glaucoma screening Dilated Retinal Exam [facility] Start: 12-27-2022 Hepatitis C antibody, confirmatory test DILATED RETINAL EXAM [facility] [place] Start: 11-16-2022 Hemoglobin A1c/Hemoglobin.total in Blood HBA1C [facility] Start: 11-15-2022 ANNUAL PCP TEAM CHRONIC DISEASE VISIT ANNUAL PCP TEAM CHRONIC DISEASE VISIT [facility] [place] Start: 11-15-2022 BP CONTROLLED (<130/80) BP CONTROLLED (<130/80) [facility] Start: 10-13-2022 Covid-19 Vaccine () Covid-19 Vaccine () [facility] Start: 10-13-2022 Influenza vaccination [facility] Start: 10-05-2022 Hepatitis C antibody, confirmatory test DILATED RETINAL EXAM [facility] Start: 08-24-2022 Adult depression screening assessment DEPRESSION SCREENING [facility] Start: 08-24-2022 ANNUAL PCP TEAM CHRONIC DISEASE VISIT ANNUAL PCP TEAM CHRONIC DISEASE VISIT [facility] Start: 08-24-2022 BP CONTROLLED (<130/80) BP CONTROLLED (<130/80) [facility] Start: 08-23-2022 End: 10-23-2022 25-hydroxyvitamin D3 [Mass/volume] in Serum or Plasma VITAMIN D 25 HYDROXY Lab Routine Vitamin D deficiency Expected: 08/23/2022, Expires: 10/23/2022 [facility] Work Phone: Comment on above: Expected: 08/23/2022, Expires: 3 Start: 08-23-2022 End: 10-23-2022 CBC panel - Blood by Automated count CBC Lab Routine Iron deficiency Expected: 08/23/2022, Expires: 10/23/2022 [facility] Work Phone: Comment on above: Expected: 08/23/2022, Expires: 3 Start: 08-23-2022 End: 10-23-2022 Cobalamin (Vitamin B12) [Mass/volume] in Serum or Plasma VITAMIN B12 BLOOD Lab Routine Other vitamin B12 deficiency anemia Expected: 08/23/2022, Expires: 10/23/2022 [facility] Work Phone: Comment on above: Expected: 08/23/2022, Expires: 3 Start: 08-23-2022 End: 10-23-2022 Comprehensive metabolic 2000 panel - Serum or Plasma COMP METABOLIC PANEL Lab Routine Controlled type 2 diabetes mellitus without complication, without long-term current use of insulin (HCC) Expected: 08/23/2022, Expires: 10/23/2022 [facility] Work Phone: Comment on above: Expected: 08/23/2022, Expires: 3 Start: 08-23-2022 End: 10-23-2022 Hemoglobin A1c in Blood HGB A1C Lab Routine Controlled type 2 diabetes mellitus without complication, without long-term current use of insulin (HCC) Expected: 08/23/2022, Expires: 10/23/2022 [facility] Work Phone: Comment on above: Expected: 08/23/2022, Expires: 3 Start: 08-23-2022 End: 10-23-2022 Iron and Iron binding capacity panel - Serum or Plasma IRON + TIBC Lab Routine Iron deficiency Expected: 08/23/2022, Expires: 10/23/2022 [facility] Work Phone: Comment on above: Expected: 08/23/2022, Expires: 3 Start: 08-23-2022 End: 10-23-2022 Thyrotropin [Units/volume] in Serum or Plasma TSH BLD Lab Routine Hypothyroidism, acquired Expected: 08/23/2022, Expires: 10/23/2022 [facility] Work Phone: Comment on above: Expected: 08/23/2022, Expires: Start: 08-14-2022 Hemoglobin A1c/Hemoglobin.total in Blood HBA1C [facility] [place] Start: 08-11-2022 Influenza vaccination INFLUENZA (#1) [facility] Comment on above: Postponed from 10/13/2021 (Declined at t his time) Start: 06-15-2022 Hepatitis C antibody, confirmatory test DILATED RETINAL EXAM [facility] Start: 05-30-2022 ANNUAL PCP TEAM CHRONIC DISEASE VISIT ANNUAL PCP TEAM CHRONIC DISEASE VISIT [facility] Start: 05-30-2022 BP CONTROLLED (<130/80) BP CONTROLLED (<130/80) [facility] Start: 2022 Hepatitis B surface antibody level LDL CHOLESTEROL [facility] Start: 05-22-2022 RSV Vaccine (1 - 1-dose 75+ series) RSV Vaccine (1 - 1-dose 75+ series) [facility] Start: 05-21-2022 End: 07-21-2022 25-hydroxyvitamin D3 [Mass/volume] in Serum or Plasma VITAMIN D 25 HYDROXY Lab Routine Vitamin D deficiency Expected: 05/21/2022, Expires: 07/21/2022 [facility] Work Phone: Comment on above: Expected: 05/21/2022, Expires: 3 Start: 05-21-2022 End: 07-21-2022 CBC panel - Blood by Automated count CBC Lab Routine Controlled type 2 diabetes mellitus without complication, without long-term current use of insulin (HCC) Expected: 05/21/2022, Expires: 07/21/2022 [facility] Work Phone: Comment on above: Expected: 05/21/2022, Expires: 3 Start: 05-21-2022 End: 07-21-2022 Cobalamin (Vitamin B12) [Mass/volume] in Serum or Plasma VITAMIN B12 BLOOD Lab Routine Vitamin B12 deficiency Other vitamin B12 deficiency anemia Expected: 05/21/2022, Expires: 07/21/2022 [facility] Work Phone: Comment on above: Expected: 05/21/2022, Expires: 3 Start: 05-21-2022 End: 07-21-2022 Comprehensive metabolic 2000 panel - Serum or Plasma COMP METABOLIC PANEL Lab Routine Controlled type 2 diabetes mellitus without complication, without long-term current use of insulin (HCC) Expected: 05/21/2022, Expires: 07/21/2022 [facility] Work Phone: Comment on above: Expected: 05/21/2022, Expires: 3 Start: 05-21-2022 End: 07-21-2022 Ferritin [Mass/volume] in Serum or Plasma FERRITIN BLD Lab Routine Vitamin B12 deficiency Other vitamin B12 deficiency anemia Iron deficiency Malabsorption syndrome Expected: 05/21/2022, Expires: 07/21/2022 [facility] Work Phone: Comment on above: Expected: 05/21/2022, Expires: 3 Start: 05-21-2022 End: 07-21-2022 Hemoglobin A1c in Blood HGB A1C Lab Routine Controlled type 2 diabetes mellitus without complication, without long-term current use of insulin (HCC) Expected: 05/21/2022, Expires: 07/21/2022 [facility] Work Phone: Comment on above: Expected: 05/21/2022, Expires: 3 Start: 05-21-2022 End: 07-21-2022 Iron and Iron binding capacity panel - Serum or Plasma IRON + TIBC Lab Routine Vitamin B12 deficiency Other vitamin B12 deficiency anemia Iron deficiency Malabsorption syndrome Expected: 05/21/2022, Expires: 07/21/2022 [facility] Work Phone: Comment on above: Expected: 05/21/2022, Expires: 3 Start: 05-21-2022 End: 07-21-2022 Lipid 1996 panel - Serum or Plasma LIPID PANEL BASIC Lab Routine Hypertriglyceridemia Expected: 05/21/2022, Expires: 07/21/2022 [facility] Work Phone: Comment on above: Expected: 05/21/2022, Expires: 3 Start: 05-21-2022 End: 07-21-2022 Thyrotropin [Units/volume] in Serum or Plasma TSH BLD Lab Routine Hypothyroidism, acquired Expected: 05/21/2022, Expires: 07/21/2022 [facility] Work Phone: Comment on above: Expected: 05/21/2022, Expires: 3 Start: 05-21-2022 End: 07-21-2022 Thyroxine (T4) free [Mass/volume] in Serum or Plasma T4 FREE/FREE THYROX Lab Routine Hypothyroidism, acquired Expected: 05/21/2022, Expires: 07/21/2022 [facility] Work Phone: Comment on above: Expected: 05/21/2022, Expires: 3 Start: 05-20-2022 Mammography MAMMOGRAM [facility] [place] Start: 05-08-2022 Hemoglobin A1c/Hemoglobin.total in Blood HBA1C [facility] [place] Start: 02-22-2022 3 comp foot exam completed DIABETIC FOOT EXAM [facility] [place] Start: 02-22-2022 ANNUAL PCP TEAM CHRONIC DISEASE VISIT ANNUAL PCP TEAM CHRONIC DISEASE VISIT [facility] [place] Start: 02-22-2022 BP CONTROLLED (<130/80) BP CONTROLLED (<130/80) [facility] Start: 02-16-2022 Hemoglobin A1c/Hemoglobin.total in Blood HBA1C [facility] [place] Start: 02-15-2022 End: 04-17-2022 CBC panel - Blood by Automated count CBC Lab Routine Iron deficiency Expected: 02/15/2022, Expires: 04/17/2022 [facility] Work Phone: Comment on above: Expected: 02/15/2022, Expires: 3 Start: 02-15-2022 End: 04-17-2022 Cobalamin (Vitamin B12) [Mass/volume] in Serum or Plasma VITAMIN B12 BLOOD Lab Routine Vitamin B12 deficiency Expected: 02/15/2022, Expires: 04/17/2022 [facility] Work Phone: Comment on above: Expected: 02/15/2022, Expires: Start: 02-15-2022 End: 04-17-2022 Comprehensive metabolic 2000 panel - Serum or Plasma COMP METABOLIC PANEL Lab Routine Hypothyroidism, acquired Other vitamin B12 deficiency anemia Iron deficiency Expected: 02/15/2022, Expires: 04/17/2022 [facility] Work Phone: Comment on above: Expected: 02/15/2022, Expires: 3 Start: 02-15-2022 End: 04-17-2022 Hemoglobin A1c in Blood HGB A1C Lab Routine Uncontrolled type 2 diabetes mellitus with hyperglycemia (HCC) Expected: 02/15/2022, Expires: 04/17/2022 [facility] Work Phone: Comment on above: Expected: 02/15/2022, Expires: 3 Start: 02-15-2022 Hepatitis B surface antibody level LDL CHOLESTEROL [facility] [place] Start: 02-15-2022 End: 04-17-2022 Iron and Iron binding capacity panel - Serum or Plasma IRON + TIBC Lab Routine Iron deficiency Expected: 02/15/2022, Expires: 04/17/2022 [facility] Work Phone: Comment on above: Expected: 02/15/2022, Expires: 3 Start: 02-15-2022 End: 04-17-2022 Thyrotropin [Units/volume] in Serum or Plasma TSH BLD Lab Routine Hypothyroidism, acquired Expected: 02/15/2022, Expires: 04/17/2022 [facility] Work Phone: Comment on above: Expected: 02/15/2022, Expires: 3 Start: 02-15-2022 End: 04-17-2022 Thyroxine (T4) free [Mass/volume] in Serum or Plasma T4 FREE/FREE THYROX Lab Routine Hypothyroidism, acquired Expected: 02/15/2022, Expires: 04/17/2022 [facility] Work Phone: Comment on above: Expected: 02/15/2022, Expires: 3 Start: 11-22-2021 Hemoglobin A1c/Hemoglobin.total in Blood HBA1C [facility] Start: 10-13-2021 Influenza vaccination [facility] [place] Start: 08-29-2021 End: 10-29-2021 Comprehensive metabolic 2000 panel - Serum or Plasma COMP METABOLIC PANEL Lab Routine Vitamin B12 deficiency Malabsorption syndrome Other iron deficiency anemia Expected: 08/29/2021, Expires: 10/29/2021 [facility] Work Phone: Comment on above: Expected: 08/29/2021, Expires: 2 Start: 08-29-2021 End: 10-29-2021 Hemoglobin A1c/Hemoglobin.total in Blood HGB A1C Lab Routine Controlled type 2 diabetes mellitus without complication, without long-term current use of insulin (HCC) Expected: 08/29/2021, Expires: 10/29/2021 [facility] Work Phone: Comment on above: Expected: 08/29/2021, Expires: 2 Start: 08-29-2021 End: 10-29-2021 IRON + TIBC IRON + TIBC Lab Routine Other iron deficiency anemia Expected: 08/29/2021, Expires: 10/29/2021 [facility] Work Phone: Comment on above: Expected: 08/29/2021, Expires: 2 Start: 08-29-2021 End: 10-29-2021 VITAMIN B12 BLOOD VITAMIN B12 BLOOD Lab Routine Vitamin B12 deficiency Malabsorption syndrome Other vitamin B12 deficiency anemia Fatigue, unspecified type Expected: 08/29/2021, Expires: 10/29/2021 [facility] Work Phone: Comment on above: Expected: 08/29/2021, Expires: 2 Start: 08-25-2021 Adult depression screening assessment DEPRESSION SCREENING [facility] Start: 08-15-2021 Hemoglobin A1c/Hemoglobin.total in Blood HBA1C [facility] [place] Start: 07-01-2021 COVID-19 VACCINE (3 - Booster for Jonathan series) COVID-19 VACCINE (3 - Booster for Jonathan series) [facility] [place] Start: 06-09-2021 Hepatitis C antibody, confirmatory test DILATED RETINAL EXAM [facility] Start: 05-14-2021 Mammography MAMMOGRAM [facility] [place] Start: 04-28-2021 COVID-19 VACCINE (3 - Booster for Jonathan series) COVID-19 VACCINE (3 - Booster for Jonathan series) [facility] Start: 02-12-2021 ADVANCE DIRECTIVE DISCUSSION ADVANCE DIRECTIVE DISCUSSION [facility] [place] Start: 10-20-2020 COVID-19 VACCINE (2 - Booster for Jonathan series) COVID-19 VACCINE (2 - Booster for Jonathan series) [facility] [place] Start: 05-16-2020 Urine microalbumin profile [facility] [place] Start: 04-16-2019 Hepatitis B screening URINE ALBUMIN:CREATININE RATIO [facility] [place] Start: 12-25-2018 FECAL OCCULT BLOOD FECAL OCCULT BLOOD [facility] [place] Start: 12-25-2018 Screening for malignant neoplasm of colon Fecal Occult Blood [facility] [place] Start: 05-17-2015 Pneumococcal Vaccine: 50+ (2 of 2 - PCV) Pneumococcal Vaccine: 50+ (2 of 2 - PCV) [facility] [place] Start: 05-17-2015 Pneumococcal Vaccine: 65+ (2 - PCV) Pneumococcal Vaccine: 65+ (2 - PCV) [facility] [place] Start: 05-17-2015 Pneumococcal Vaccine: 65+ (2 of 2 - PCV) Pneumococcal Vaccine: 65+ (2 of 2 - PCV) [facility] [place] Start: 05-17-2015 PNEUMOCOCCAL: 65+ (2 - PCV) PNEUMOCOCCAL: 65+ (2 - PCV) [facility] [place] Start: 2007 Hepatitis B Vaccine (1 of 3 - Risk 3-dose series) Hepatitis B Vaccine (1 of 3 - Risk 3-dose series) [facility] [place] Start: 2007 RSV Vaccine (1 - 1-dose 60+ series) RSV Vaccine (1 - 1-dose 60+ series) [facility] [place] Start: 05-22-1997 SHINGRIX VACCINE (1 of 2) SHINGRIX VACCINE (1 of 2) [facility] [place] Start: 05-22-1992 COLOGUARD (FIT-DNA) COLOGUARD (FIT-DNA) [facility] [place] Start: 05-22-[address] COLONOGRAPHY [facility] Start: 05-22-1992 Screening for malignant neoplasm of colon [facility] Start: 05-22-1992 SIGMOIDOSCOPY SIGMOIDOSCOPY [facility] Anion gap measurement [facility] BUN/Creatinine ratio [facility] C reactive protein [Mass/volume] in Serum or Plasma [facility] C reactive protein [Mass/volume] in Serum or Plasma [facility] Calcium [Mass/volume ] in Serum or Plasma [facility] Carbon dioxide, tota l [Moles/volume] in Serum or Plasma [facility] Carcinoembryonic Ag [Mass/volume] in Serum or Plasma [facility] Carcinoembryonic Ag [Mass/volume] in Serum or Plasma [facility] Carcinoembryonic Ag [Mass/volume] in Serum or Plasma [facility] CBC W Auto Different ial panel - Blood [facility] CBC W Auto Different ial panel - Blood [facility] CBC W Auto Different ial panel - Blood [facility] CBC W Auto Different ial panel - Blood [facility] Chloride [Moles/volu me] in Serum or Plasma [facility] Cobalamin (Vitamin B 12) [Mass/volume] in Serum or Plasma [facility] Comprehensive metabo lic 1999 panel - Serum or Plasma [facility] Comprehensive metabo lic 1999 panel - Serum or Plasma [facility] Creatinine [Moles/volume] in Serum or Plasma [facility] End: 06-22-2025 DBT Breast - bilateral screening CAROLINE SCREENING W [facility] Radiology Routine Encounter for screening mammogram for malignant neoplasm of breast 1 Occurrences starting 2024 until 06/22/2025 [facility] Work Phone: Comment on above: 1 Occurrences starting 2024 until 06/22/2025 Erythrocyte mean corpuscular volume determination [facility] Erythrocyte sedimentation rate [facility] Erythrocyte sedimentation rate [facility] Ferritin [Mass/volum e] in Serum or Plasma [facility] Ferritin [Mass/volum e] in Serum or Plasma [facility] Glucose [Mass/volume ] in Serum or Plasma [facility] Hematocrit [Volume Fraction] of Blood [facility] Hemoglobin [Mass/vol ume] in Blood [facility] Iron and Iron bindin g capacity panel - Serum or Plasma [facility] Iron and Iron bindin g capacity panel - Serum or Plasma [facility] Lactate dehydrogenas e measurement [facility] Lactate dehydrogenas e measurement [facility] Lactate dehydrogenas e measurement [facility] Leukocytes [#/volume ] in Blood [facility] Magnesium [Mass/volu me] in Serum or Plasma [facility] End: 03-22-2023 CAROLINE SCREENING CAROLINE SCREENING Radiology Routine Encounter for screening mammogram for malignant neoplasm of breast 1 Occurrences starting 02/20/2022 until 03/22/2023 [facility] Work Phone: Comment on above: 1 Occurrences starting 02/20/2022 until 03/22/2023 End: 06-17-2022 CAROLINE SCREENING W FLOR CAROLINE SCREENING W FLOR Radiology Routine Encounter for screening mammogram for malignant neoplasm of breast 1 Occurrences starting 05/18/2021 until 06/17/2022 [facility] Work Phone: Comment on above: 1 Occurrences starting 05/18/2021 until 06/17/2022 Mean corpuscular hemoglobin concentration determination [facility] Mean corpuscular hemoglobin determination [facility] Measurement of renal function [facility] Neutrophil count [facility] Neutrophil percent differential count [facility] Patient referral [facility] Work Phone: Platelets [#/volume] in Blood [facility] Potassium [Moles/vol ume] in Serum or Plasma [facility] Procedure [facility] Red blood cell count [facility] Red cell distributio n width determination [facility] Removal impacted cer umen irrigation/lvg unilat AMBULATORY EAR LAVAGE/IRRIGATION Procedures Routine Bilateral impacted cerumen Ordered: 07/11/2023 [facility] Work Phone: Comment on above: Ordered: 07/11/2023 Reticulocyte count [facility] Serum inorganic phosphate measurement [facility] Sodium [Moles/volume ] in Serum or Plasma [facility] Urea nitrogen [Mass/volume] in Serum or Plasma [facility] End: 2025 US Lower extremity veins - bilateral US LEG VEIN DVT [facility] STAT Left leg swelling Right leg swelling 1 Occurrences starting 2024 until 2025 [facility] Comment on above: 1 Occurrences starting 2024 until 2025 [facility] Immunizations Immunization Date Immunization Notes Care Provider Fa shashi 08-25-2020 COVID-19 vaccine (RESPACE) Jeff Simeon DO Work Phone: [facility] 01-21-2018 influenza virus vacc ine, unspecified formulation Mi Nurse Work Phone: [facility] 05-16-2014 pneumococcal polysaccharide vaccine, 23 valent Jeff Simeon DO Work Phone: [facility] 05-16-2010 tetanus toxoid, redu mervat diphtheria toxoid, and acellular pertussis vaccine, adsorbed Jeff Simeon DO Work Phone: [facility] Payers Date Payer Category Payer Medicare (Managed Care) [employer] HMO [id number] 2024 Unknown ANTHEM BLUE CROS S AND BLUE SHIELD ANTHEM MEDICARE ADVANTAGE HMO [id number] 2024-Present [phone] [address] [place] [address] O [id number] 2023 Medicare [id number] 2023 Self-pay [id number] 2021 Medicare AETNA MEDICARE A ETNA MEDICARE O [id number] 2021-Present [phone] [address] [place] [address] [facility] [id number] 2021 Private Health Insurance [facility] [id number] 2013 Medicare [id number] Medicare [id number] Unknown [id number] 462 Unknown [id number]. 462 Unknown [id number]. 462 Unknown [id number]. 462 Unknown [id number]. 462 Unknown [id number]. 462 Unknown [id number] [id number]. 462 Unknown [id number] [id number]. 462 Unknown [id number] [id number]. 462 Unknown [id number] [id number]. 462 Unknown [id number] [id number]. 462 Unknown [id number]. 462 Unknown [id number]. 462 Social History Date Type Detail Facility Start: 05-17-2015 End: 10-16-2023 Tobacco smoking status NHIS Never smoked tobacco [facility] Work Phone: Start: 05-17-2015 End: 02-20-2022 Tobacco use and exposure Smokeless tobacco non-user [facility] Work Phone: Start: 02-22-2021 End: 02-14-2024 Alcohol intake Current non-drinker of alcohol (finding) [facility] Start: 1945 Sex Assigned At Not on file [facility] Start: 12-21-2020 End: 03-21-2023 Tobacco smoking status NHIS Unknown if ever smoked [facility] Start: 1945 Sex Assigned At Female W [facility] Start: 07-26-2020 End: 11-15-2021 Exposure to SARS-CoV-2 (event) Not sure [facility] Work Phone: Start: 07-11-2022 End: 09-05-2022 History of Social function [facility] Work Phone: Start: 07-11-2022 End: 09-05-2022 Tobacco use panel [facility] Work Phone: Adult Depression Screening Assessment 0 [facility] Work Phone: Start: 05-13-2024 Sex Female (finding) Natalia garcia [facility] Medical Equipment Procedure Code Equipment Code Equipment Original Text Equipment Identifier Dates [id number], [id number], [id number], [id number], [id number], [id number], [id number], [id number], [id number], [id number], [id number], [id number], [id number], [id number], [id number], [id number] Start: 04-21-2019 End: 09-15-2024 Comment on above: [...] Insulin: No Surgical staple loading unit, cutting ()[id number] FDA Start: 03-06-2023 Open-surgery manual linear cutting stapler, single-use ()[id number] FDA Start: 03-06-2023 Ligation clip, synthetic polymer, non-bioabsorbable ()[id number] FDA Start: 03-06-2023 Goals Date Patient Goal Desired Activity /State Functional Status Date Assessment Result Facility 03-11-2023 Functional status Ambulates [facility] Work Phone: 04-06-2022 Are you deaf, or do you have serious difficulty hearing No 04/06/2022 10:53 AM Wiley Pires RN No [facility] 04-06-2022 Are you blind, or do you have serious difficulty seeing, even when wearing glasses No 04/06/2022 10:53 AM Wiley Pires RN No [facility] 04-06-2022 Do you have serious difficulty walking or climbing stairs No 04/06/2022 10:53 AM Wiley Pires RN No [facility] 04-06-2022 Do you have difficul ty dressing or bathing No 04/06/2022 10:53 AM Wiley Pires RN No [facility] 04-06-2022 Because of a physica l, mental, or emotional condition, do you have difficulty doing errands alone such as visiting a physician's office or shopping No 04/06/2022 10:53 AM Wiley Pires RN No [facility] Mental Status Date Assessment Result Facility 03-27-2024 Cognitive function Awake;Alert;A ppropriate; Follows Commands [facility] Work Phone: 01-22-2024 Cognitive function Awake;Alert;Appropriat e [facility] Work Phone: 12-13-2023 Cognitive function Arousable To Voice/Nam e [facility] Work Phone: 03-11-2023 Cognitive function Voice/Name [facility] Work Phone: 04-06-2022 Because of a physica l, mental, or emotional condition, do you have serious difficulty concentrating, remembering, or making decisions No 04/06/2022 10:53 AM Wiley Pires RN No [facility] Clinical Notes 02-26-2018 to 12-23-2024 Note Date & Type Note Facility 12-23-2024 Note HNO ID: [id number] Author: ?, ?, ? Service: ? Author Type: Licensed Nurse Type: Progress Notes Filed: 12/23/2024 08:05 Note Text: Patient presents for B-12 injection. Denies any problems at this time. Patient instructed on any SE of medication, verbalized understanding and agreed to proceed with treatment. Tolerated injection well. Lani Edmond LPN [facility] 12-21-2024 Note HNO ID: [id number] Author: FARRUKH DYE, ? Service: ? Author [...] of her left foot performed by a flea market seller. She prefers not to wear shoes indoors [...] provided courtesy nail trimming today. Recording using [employer] software for draft documentation of the visit was discussed with the patient/authorized route sales representative; all questions welcomed and answered. Patient/authorized route sales representative agreed to proceed Farrukh Dye DPM [facility] 12-19-2024 Note HNO ID: [id number] Author: NGUYEN SMITH, ROBERT Service: ? Author [...] for this before. SONIDO 03/29/24 [facility] 11-21-2024 Note HNO ID: [id number] Author: JEFF SIMEON, Service: ? Author Type: [...] care of with her diabetes, hasn't seen Type Inspector recently. Vitamin b12 deficiency, last level in the 400s. Hasn't had labs rechecked. But does feel less fatigue than previously Will have follow up next with Dr. Singh for Oncologist on 10/23 and labs prior Next follow up in the next few months with Asset Recovery Specialist Dr. Crystal as well. She is eating [...] WHEN PFRMD 08/25/2003 adenomatous polyp and diverticulosis. [facility] COLONOSCOPY FLX DX W/COLLJ SPEC WHEN PFRMD 09/28/2006 No polyps found. 5 yr recall. [facility]vara. [facility] COLONOSCOPY FLX DX W/COLLJ SPEC WHEN PFRMD 02/26/2018 Colonoscopy ESOPHAGOGASTRODUODENOSCOPY TRANSORAL DIAGNOSTIC 08/31/2003 Unremarkable, negative biopsies. [facility] ESOPHAGOGASTRODUODENOSCOPY TRANSORAL DIAGNOSTIC 02/26/2018 EGD LAPAROSCOPIC CHOLECYSTECTOMY 04/05/2022 REMV CATARACT EXTRACAP,INSERT LENS Bilateral TONSILLECTOMY HX SOCIAL HISTORY[1] FAMILY HISTORY Adopted: Yes Allergies: ALLERGIES Allergen Reactions Benadryl [Diphenhyd* Swelling Penicillins Shortness of Breath Vnojphe-Bph-Nog Red* Contraindication-Medical Surgical History of liver failure [...] mouth (more content not included)... [facility] 11-04-2024 Progress note [facility] 10-23-2024 Evaluation note Diagnosis Onset Date Resolution Colon cancer, ascending chronic October 23, 2024 1:37pm Elevated CEA chronic October 232024 1:37pm Anemia resolved October 1:37pm Colon cancer, ascending chronic November 04, 2024 10:48am NAFLD (nonalcoholic fatty liver disease) chronic October 142024 10:48am Ulcerative colitis chronic 2024 10:48am [facility] Work Phone: [phone]) 793-161209-11-2025 Progress [facility] [address] [place] [address] OFFICE VISIT Date of Service: 10/23/24 1405 MR#: [id number] Acct: [id number] Name: NGUYEN QUEEN Rep #: [id number] : 1945 From: Maco Singh MD Age/Sex: 79/F Location: [facility] Status: Signed HPI Subjective Date of Service 10/23/24 Chief Complaint F/u for anemia. History of Present Illness 79-year-old woman presented with right lower quadrant abdominal pain to [facility]. CTof the abdomen and pelvis on 03/05/2023 [...] and comes for follow up. Feels well. [facility] Medical History Colon cancer Bilateral [...] Products Adverse Reaction (Verified 10/23/24 14:09) Other [place] And Derivatives Adverse Reaction (Verified 10/23/24 14:09) [...] applicable) CC: Dr. Jeff Simeon, DO ~ [facility]09-11-2025 Progress note Author Maco Singh [facility] Note Date/Time October 23, 2024 2:35pm [facility] [address] [address] OFFICE VISIT Date of Service: 10/23/24 1405 MR#: [id number] Acct: [id number] Name: BRETNGUYEN Rep #: [id number] : 1945 From: Maco Singh MD Age/Sex: 79/F Location: [facility] Status: Signed HPI Subjective Date of Service 10/23/24 Chief Complaint F/u for anemia. History of Present Illness 79-year-old woman presented with right lower quadrant abdominal pain to [facility]. CTof the abdomen and pelvis on 03/05/2023 [...] and comes for follow up. Feels well. [facility] Medical History Colon cancer Bilateral [...] Products Adverse Reaction (Verified 10/23/24 14:09) Other [place] And Derivatives Adverse Reaction (Verified 10/23/24 14:09) [...] fallen in the past year?: Yes 10/23/24 [id number] <Electronically signed by Maco Martinez> Date _ Maco Hernandez Signature: Date (if applicable) CC: Dr. Jeff Simeon, DO ~ [facility] Work Phone: 1(119) 933-433108-04-2025 Telephone encounter Note* Telephone Encounter - Hank [...] Ruvalcaba RN September 15, 2024 9:50 AM [facility]08-04-2025 Miscellaneous Notes* Telephone Encounter - Hank Ruvalcaba [...] 15, 2024 9:50 AM documented in [facility] Telephone encounter Note * Telephone Encounter - [...] Controlled E11.9 Insulin: No Astrid Larios RN [facility]05-30-2025 Miscellaneous Notes* Telephone Encounter - Astrid Larios [...] No Astrid Larios RN documented in this encounter[facility] Telephone encounter Note * Telephone Encounter - [...] her to schedule B12 injections with Lani. [facility]04-17-2025 Miscellaneous Notes* Telephone Encounter - Hank Ruvalcaba [...] weeks Jeff Simeon DO documented in this encounter[facility] Telephone encounter Note * Telephone Encounter - Clari Escudero RN - 05/29/2024 12:21 PM EDT TC patient, left message for patient to call back and speak with a triage nurse regarding results and provider instructions. Clari Escudero RN [facility]04-16-2025 Telephone encounter Note* Telephone Encounter - Jeff [...] again every 3-4 weeks Jeff Simeon DO [facility]04-11-2025 Telephone encounter Note* Telephone Encounter - Barbara Amin MA - 2024 3:51 PM EDT Pt notified. Barbara Amin MA [facility]04-11-2025 Miscellaneous Notes* Telephone Encounter - Barbara Amin MA - 2024 3:51 PM EDT Pt notified. Barbara Amin MA * Telephone Encounter - Karson Woodward APRN.CNP - 2024 2:46 PM EDT Please let her know that the ultrasounds of her legs did not show any clots. Karson Woodward APRN.CNP documented in this encounter[facility] Telephone encounter Note * Telephone Encounter - Karson Woodward APRN.CNP - 2024 2:46 PM EDT Please let her know that the ultrasounds of her legs did not show any clots. Karson Woodward APRN.CNP [facility]04-11-2025 NoteHNO ID: [id number] Author: RUTH ANN MAURO RDMS Service: ? Author Type: Roofer Assistant Type: Progress Notes Filed: 05/26/2024 07:26 Note [...] PATIENT PRESENTS WITH AN IMPLANTABLE OR ATTACHED RETURN AGENT: No RADIOLOGY DEPARTMENT: Ultrasound PERIPHERAL IV DATA: Not applicable SIGNED BY: Ruth Ann Mauro RDMS RVT May 26, 2024 7:25 [facility]04-11-2025 Instructions* Patient Instructions* Jeff SimeonDO - 2024 10:16 AM EDT Add some ground flax and ground ronnie seed into your diet as able. documented in this encounterSelect [facility]25 NoteHNO ID: [id number] Author: JEFF SIMEON DO Service: ? Author [...] up in the next few months with Asset Recovery Specialist Dr. Crystal as well. She is eating [...] WHEN PFRMD 08/25/2003 adenomatous polyp and diverticulosis. [facility] COLONOSCOPY FLX DX W/COLLJ SPEC WHEN PFRMD 09/28/2006 No polyps found. 5 yr recall. [facility]uevara. [facility] COLONOSCOPY FLX DX W/COLLJ SPEC WHEN PFRMD 02/26/2018 Colonoscopy ESOPHAGOGASTRODUODENOSCOPY TRANSORAL DIAGNOSTIC 08/31/2003 Unremarkable, negative biopsies. [facility] ESOPHAGOGASTRODUODENOSCOPY TRANSORAL DIAGNOSTIC 02/26/2018 EGD LAPAROSCOPIC CHOLECYSTECTOMY 04/05/2022 REMV CATARACT EXTRACAP,INSERT LENS Bilateral TONSILLECTOMY HX Social History Tobacco Use Smoking status: Never Smokeless tobacco: Never Vaping Use Vaping status: Never Used Substance Use Topics Alcohol use: No Drug use: No FAMILY HISTORY Adopted: Yes Allergies: ALLERGIES Allergen Reactions Benadryl [Diphenhyd* Swelling Penicillins Shortness of Breath Iphxcit-Acy-Pau Red* Contraindication-Medical Surgical History of liver failure [...] Delecia Beck (more content not included)...[facility]04-11-2025 History of Present illness Narrative* Jeff [...] up in the next few months with Asset Recovery Specialist Dr. Crystal as well. She is eating [...] HISTORY Diagnosis Date Advance care planning 08/24/2021 [facility] Diabetes mellitus, type 2 (HCC) Environmental allergies Hyperlipidemia Hypothyroidism, unspecified Liver failure (HCC) 2004 unsure of cause Migraine headache onset age 7 PAST SURGICAL HISTORY Procedure Laterality Date BREAST BIOPSY NEEDLE LEFT 12/31/2014 x 2, Dr. Ronquillo COLONOSCOPY FLX DX W/COLLJ SPEC WHEN PFRMD 08/25/2003 adenomatous polyp and diverticulosis. [facility] COLONOSCOPY FLX DX W/COLLJ SPEC WHEN PFRMD 09/28/2006 No polyps found. 5 yr recall. Guevara. [facility] COLONOSCOPY FLX DX W/COLLJ SPEC WHEN PFRMD 02/26/2018 Colonoscopy ESOPHAGOGASTRODUODENOSCOPY TRANSORAL DIAGNOSTIC 08/31/2003 Unremarkable, negative biopsies. [facility] ESOPHAGOGASTRODUODENOSCOPY TRANSORAL DIAGNOSTIC 02/26/2018 EGD LAPAROSCOPIC CHOLECYSTECTOMY 04/05/2022 REMV CATARACT EXTRACAP,INSERT LENS Bilateral TONSILLECTOMY HX Social History Tobacco Use Smoking status: Never Smokeless tobacco: Never Vaping Use Vaping status: Never Used Substance Use Topics Alcohol use: No Drug use: No FAMILY HISTORY Adopted: Yes Allergies: ALLERGIES Allergen Reactions Benadryl [Diphenhyd* Swelling Penicillins Shortness of Breath Tckjhhc-Cad-Xqe Red* Contraindication-Medical Surgical History of liver failure [...] with supplements or by diet (goal of 2226-9259 mg/day - CAROLINE SCREENING W FLOR 4. [...] above F/u with DR. Singh oncologist and pourer off 11. Colon neoplasm - ICD9: 239.0, ICD10: D49.0 See above, s/p resection and improved. Jeff Simeon DO To ER if develops chest pain, shortness of breath, or severe worsening of symptoms. Discussed risks, benefits, alternatives, and potential side effects of medications. Patient expressed understanding and agreed with the plan. Jeff Simeon DO [address] [place] [address] documented in [facility] encounter[facility] Telephone encounter Note * Telephone Encounter - Karson Woodward APRN.CORE FINISHER - 02/14/2024 2:42 PM EST Patient states that she usually gets her B12 shots and is due for one with our nurse Lani. For whatever reason she states she hasn't been able to schedule this appt. I'm not familiar with this, are we able to help her out? Thanks Karson Woodward APRN.CORE FINISHER [facility]01-02-2025 Miscellaneous Notes* Telephone Encounter - Karson Woodward APRN.CNP - 02/14/2024 2:42 PM EST Patient states that she usually gets her B12 shots and is due for one with our nurse Lani. For whatever reason she states she hasn't been able to schedule this appt. I'm not familiar with this, are we able to help her out? Thanks Karson Woodward APRN.CORE FINISHER documented in this encounter[facility] Telephone encounter Note * Telephone Encounter - Karson Woodward APRN.CNP - 02/14/2024 1:46 PM EST Noted, thank you. Karson Woodward APRN.BLAYNE [facility]01-02-2025 Miscellaneous Notes* Telephone Encounter - Karson Woodward APRN.CNP - 02/14/2024 1:46 PM EST Noted, thank you. Karson Woodward APRN.CORE FINISHER * Telephone Encounter - Nell Perez MA [...] fine! Karson Woodward APRN.CNP documented in this encounterSelect [facility] Telephone encounter Note * Telephone Encounter - Nell Perez MA - 02/14/2024 12:27 PM EST Spoke with DR. Varghese nurse who reports pt stopped taking the eliqus at 30 days, was supposed to take for 45 days, but she had trouble with cost/ felt like it caused swelling in her legs. Dr. Singh said patient should be fine. Nell Perez MA [facility]01-02-2025 Telephone encounter Note* Telephone Encounter - Karson Woodward APRN.CNP - 02/14/2024 11:50 AM EST Patient states that she has right calf DVT and Dr. Singh gave her Eliquis x1 month. Typically we will have them take it for at least 3-6 months, I just wanted to make sure that he did only want it for1 month. If so that's fine! Karson Woodward APRN.CNP [facility]01-02-2025 NoteHNO ID: [id number] Author: KARSON WOODWARD APRN.CNP Service: ? Author [...] D-knows it is low but states at [facility] tried to give this to her and she can't tolerate it-overall just makes her very sick. Past medical history, appointments, medications, allergies reviewed. Previous Medical History PAST MEDICAL HISTORY Diagnosis Date Advance care planning 08/24/2021 [facility] Diabetes mellitus, type 2 (HCC) Environmental allergies Hyperlipidemia Hypothyroidism, unspecified Liver failure (HCC) 2004 unsure of cause Migraine headache onset age 7 Previous Surgical History PAST SURGICAL HISTORY Procedure Laterality Date BREAST BIOPSY NEEDLE LEFT 12/31/2014 x 2, Dr. oRnquillo COLONOSCOPY FLX DX W/COLLJ SPEC WHEN PFRMD 08/25/2003 adenomatous polyp and diverticulosis. [facility] COLONOSCOPY FLX DX W/COLLJ SPEC WHEN PFRMD 09/28/2006 No polyps found. 5 yr recall. Guevara. [facility] COLONOSCOPY FLX DX W/COLLJ SPEC WHEN PFRMD 02/26/2018 Colonoscopy ESOPHAGOGASTRODUODENOSCOPY TRANSORAL DIAGNOSTIC 08/31/2003 Unremarkable, negative biopsies. [facility] ESOPHAGOGASTRODUODENOSCOPY TRANSORAL DIAGNOSTIC 02/26/2018 EGD LAPAROSCOPIC CHOLECYSTECTOMY 04/05/2022 REMV CATARACT EXTRACAP,INSERT LENS Bilateral TONSILLECTOMY HX Family History FAMILY HISTORY Adopted: Yes Patient Allergies ALLERGIES Allergen Reactions Benadryl [Diphenhyd* Swelling Penicillins Shortness of Breath Sqodjgi-Ysp-Ixq Red* Contraindication-Medical Surgical History of liver failure [...] on 02/13/19 (more content not included)...[facility]01-02-2025 History of Present illness Narrative* Karson Woodward APRN.CORE FINISHER - 02/14/2024 11:22 AM EST Chief Complaint [...] D-knows it is low but states at [facility] tried to give this to her and she can't tolerate it-overall just makes her very sick. Past medical history, appointments, medications, allergies reviewed. Previous Medical History PAST MEDICAL HISTORY Diagnosis Date Advance care planning 08/24/2021 [facility] Diabetes mellitus, type 2 (HCC) Environmental allergies Hyperlipidemia Hypothyroidism, unspecified Liver failure (HCC) 2004 unsure of cause Migraine headache onset age 7 Previous Surgical History PAST SURGICAL HISTORY Procedure Laterality Date BREAST BIOPSY NEEDLE LEFT 12/31/2014 x 2, Dr. Ronquillo COLONOSCOPY FLX DX W/COLLJ SPEC WHEN PFRMD 08/25/2003 adenomatous polyp and diverticulosis. [facility] COLONOSCOPY FLX DX W/COLLJ SPEC WHEN PFRMD 09/28/2006 No polyps found. 5 yr recall. [facility] COLONOSCOPY FLX DX W/COLLJ SPEC WHEN PFRMD 02/26/2018 Colonoscopy ESOPHAGOGASTRODUODENOSCOPY TRANSORAL DIAGNOSTIC 08/31/2003 Unremarkable, negative biopsies. [facility] ESOPHAGOGASTRODUODENOSCOPY TRANSORAL DIAGNOSTIC 02/26/2018 EGD LAPAROSCOPIC CHOLECYSTECTOMY 04/05/2022 REMV CATARACT EXTRACAP,INSERT LENS Bilateral TONSILLECTOMY HX Family History FAMILY HISTORY Adopted: Yes Patient Allergies ALLERGIES Allergen Reactions Benadryl [Diphenhyd* Swelling Penicillins Shortness of Breath Dcdgkud-Pok-Rzr Red* Contraindication-Medical Surgical History of liver failure [...] in counseling and education. documented in [facility] encounter[facility] [place] Miscellaneous Notes* Telephone Encounter - Nell Perez [...] upcoming appt with Crissy. documented in this encounterSelect Medical [facility] [place] Telephone encounter Note * Telephone Encounter - Nell Perez MA - 02/01/2024 2:13 PM EST Pt informed Nell Perez MA [facility]12-20-2024 Telephone encounter Note* Telephone Encounter - Karson Woodward APRN.CNP - 02/01/2024 2:02 PM EST Lab orders placed. Karson Woodward APRN.CNP [facility]12-20-2024 Telephone encounter Note* Telephone Encounter - FredMonse sweeney - 02/01/2024 12:40 PM EST Pt is requesting lab orders be put in so that she can have them drawn a week before her upcoming appt with Crissy. [facility]12-12-2024 Evaluation note* Diagnosis Onset Date Resolution [...] Ulcerative colitis chronic May 06, 2024 10:43am [facility] Work Phone: [phone] 387-294410-08-2024 History of Present illness Narrative* Jeff Simeon, [...] colectomy for colon cancer - Dr. Crystal Asset Recovery Specialist. Has upcoming CT chest for her recent [...] WHEN PFRMD 08/25/2003 adenomatous polyp and diverticulosis. [facility] COLONOSCOPY FLX DX W/COLLJ SPEC WHEN PFRMD 09/28/2006 No polyps found. 5 yr recall. [facility] COLONOSCOPY FLX DX W/COLLJ SPEC WHEN PFRMD 02/26/2018 Colonoscopy ESOPHAGOGASTRODUODENOSCOPY TRANSORAL DIAGNOSTIC 08/31/2003 Unremarkable, negative biopsies. [facility] ESOPHAGOGASTRODUODENOSCOPY TRANSORAL DIAGNOSTIC 02/26/2018 EGD LAPAROSCOPIC CHOLECYSTECTOMY 04/05/2022 REMV CATARACT EXTRACAP,INSERT LENS Bilateral TONSILLECTOMY HX Social History Tobacco Use Smoking status: Never Smokeless tobacco: Never Vaping Use Vaping status: Never Used Substance Use Topics Alcohol use: No Drug use: No FAMILY HISTORY Adopted: Yes Allergies: ALLERGIES Allergen Reactions Benadryl [Diphenhyd* Swelling Penicillins Shortness of Breath Tdmmcbv-Ech-Nbg Red* Contraindication-Medical Surgical History of liver failure [...] See above. Needs to follow up with Asset Recovery Specialist as well as Oncologist. Hx of colon [...] See above. Needs to follow up with Asset Recovery Specialist as well as Oncologist. Hx of colon cancer s/pright colectomy partial. She is having muscle weakness and weight loss after her recent hospitalization and colitis diagnosis. She isn't tolerated the ciprofloxacin and metronidazole medication and oral iron option. Needs to consider PT 6. Colon neoplasm - ICD9: 239.0, ICD10: D49.0 See above. Needs to follow up with Asset Recovery Specialist as well as Oncologist. Hx of colon [...] See above. Needs to follow up with Asset Recovery Specialist as well as Oncologist. Hx of colon cancer s/pright colectomy partial. She is having muscle weakness and weight loss after her recent hospitalization and colitis diagnosis. She isn't tolerated the ciprofloxacin and metronidazole medication and oral iron option. Needs to consider PT 9. Muscle weakness - ICD9: 728.87, ICD10: M62.81 See above. Needs to follow up with Asset Recovery Specialist as well as Oncologist. Hx of colon cancer s/pright colectomy partial. She is having muscle weakness and weight loss after her recent hospitalization and colitis diagnosis. She isn't tolerated the ciprofloxacin and metronidazole medication and oral iron option. Needs to consider PT 10. Gait abnormality - ICD9: 781.2, ICD10: R26.9 See above. Needs to follow up with Asset Recovery Specialist as well as Oncologist. Hx of colon cancer s/pright colectomy partial. She is having muscle weakness and weight loss after her recent hospitalization and colitis diagnosis. She isn't tolerated the ciprofloxacin and metronidazole medication and oral iron option. Needs to consider PT Jeff Simeon DO I spent 45 minutes in the visit, with more than 50% of the total mlrb-iz-xvqz time of the visit in counseling / coordination of care. To ER if develops chest pain, shortness of breath, or severe worsening of symptoms. Discussed risks, benefits, alternatives, and potential side effects of medications. Patient expressed understanding and agreed with the plan. Jeff Simeon DO [address] [place] [address] documented in this encounterSelect Medical [facility] [place] Telephone encounter Note * Telephone Encounter - Nell Perez MA - 11/14/2023 2:49 PM EDT Pt informed, verbalized understanding. Pt reports she will discuss these results with Dr. Simeon at her upcoming appt on 11/19. She takes b12 shot every other Sunday. Doesn't take Vitamin D or Iron supplement. Reports she is deathly allergic to these. Nell Perez MA [facility]10-02-2024 Miscellaneous Notes* Telephone Encounter - Nell Perez [...] this? Karson Woodward APRN.CNP documented in this encounterSelect Medical [facility] [place]10-02-2024 Telephone encounter Note * Telephone Encounter - [...] a supplement for this? Karson Woodward APRN.CNP [facility] [place]09-30-2024 Telephone encounter Note* Telephone Encounter - Lani [...] Edmond LPN November 12, 2023 10:23 AM [facility] [place]09-30-2024 Miscellaneous Notes* Telephone Encounter - Lani Edmond [...] 12, 2023 10:23 AM documented in this encounterSelect Medical [facility] [place]09-30-2024 History of Present illness Narrative* Lani Edmond LPN - 11/12/2023 10:21 AM EDT Patient presents for B-12 injection. Denies any problems at this time. Patient instructed on any SEof medication, verbalized understanding and agreed to proceed with treatment. Tolerated injection well. Lani Edmond LPN documented in this encounterSelect Medical [facility] [place]-23-2024 Telephone encounter Note * Telephone Encounter - Janeth Davenport LPN - 11/05/2023 10:26 AM EDT Phoned patient aware rx sent to pharmacy. Patient said she has appt with PCP on 11/20/2023. [facility] [place]-23-2024 Miscellaneous Notes* Telephone Encounter - Janeth Davenport [...] advise. Lani Edmond LPN documented in this encounterSelect Medical [facility] [place]-23-2024 Telephone encounter Note * Telephone Encounter - Jeff Simeon DO - 11/05/2023 7:54 AM EDT The following approved medication requests have been transmitted electronically. Requested Prescriptions Signed Prescriptions Disp Refills furosemide (LASIX) 40 mg tablet 10 tablet 0 Sig: Take 1 tablet by mouth once daily for 10 days. Authorizing Provider: JEFF SIMEON DO [facility] [place]09-16-2024 Telephone encounter Note* Telephone Encounter - Lani [...] Please review and advise. Lani Edmond LPN [facility] [place]-16-2024 History of Present illness Narrative* Lani Edmond LPN - 10/29/2023 9:31 AM EDT Patient presents for B-12 injection. Denies any problems at this time. Patient instructed on any SEof medication, verbalized understanding and agreed to proceed with treatment. Tolerated injection well. Lani Edmond LPN documented in this encounterSelect Medical [facility] [place]-12-2024 Telephone encounter Note * Telephone Encounter - Nell Perez MA - 10/25/2023 3:18 PM EDT Relayed provider message to Dr. Crystal's nurse. She will contact office with provider response Nell Perez MA [facility] [place]-12-2024 Miscellaneous Notes* Telephone Encounter - Nell Perez [...] cancer diagnosis. Advises that Dr. Crystal, of [facility], be contacted for advise. Please contact Dr. [...] stomach. Karson Woodward APRN.CNP documented in this encounterSelect Medical [facility] [place]09-12-2024 Telephone encounter Note * Telephone Encounter - Astrid Larios RN - 10/25/2023 12:39 PM EDT Patricia with Dr. Singh's office calling with message for Karson Woodward CNP. States Dr. Singh feels pt's colitis is unrelated to her cancer diagnosis. Advises that Dr. Crystal, of [facility], be contacted for advise. Please contact Dr. Crystal's office regarding Karson's note below. Please call patient with any updates. Astrid Larios RN [facility] [place]09-12-2024 Telephone encounter Note* Telephone Encounter - Hank Ruvalcaba, ROBERT - 10/25/2023 11:54 AM EDT Patricia- Dr. Singh's oncology office, returned call and given provider's message below. Patricia will talk with Dr. Singh, and call back to nurse with reply. [facility] [place]-12-2024 Telephone encounter Note* Telephone Encounter - Barbara Amin MA - 10/25/2023 10:24 AM EDT Message left on nurses machine with Dr. Singh's office to call office back regarding pt. Barbara Amin MA [facility]09-11-2024 Telephone encounter Note* Telephone Encounter - Karson [...] and upset her stomach. Karson Woodward APRN.CNP [facility]09-11-2024 Instructions* Patient Instructions* Karson Woodward APRN.CNP - [...] of water to drink. documented in this encounterSelect Medical [facility] [place]09-11-2024 History of Present illness Narrative* Karson Woodward APRN.CNP - 10/24/2023 2:03 PM EDT Transitional Care Management Progress Note The patients TCM visit was performed within the 7 days of discharge. Patient's Date of discharge: 10/18/2023 Date of initial coordinator contact after discharge: N/A Discharge diagnosis: acute colitis in the setting of colon cancer Medication review completed Yes Karson Woodward APRN.CORE FINISHER Provider Documentation: In follow-up of hospitalization, Nguyen [...] 24, 2023 2:03 PM documented in this encounterSelect Medical [facility] [place]09-03-2024 Miscellaneous Notes* Telephone Encounter - Lani Edmond [...] 16, 2023 9:35 AM documented in this encounterSelect Medical [facility] [place]-03-2024 Telephone encounter Note * Telephone Encounter - [...] Edmond LPN October 16, 2023 9:35 AM [facility]-03-2024 History of Present illness Narrative* Lani Edmond LPN - 10/16/2023 9:14 AM EDT Patient presents for B-12 injection. Denies any problems at this time. Patient instructed on any SEof medication, verbalized understanding and agreed to proceed with treatment. Tolerated injection well. Lani Edmond LPN documented in this encounterSelect Medical [facility] [place]-21-2024 Telephone encounter Note * Telephone Encounter - Anju Sánchez PA-C - 10/03/2023 3:34 PM EDT Noted Anju Sánchez PA-C [facility] [place]-21-2024 Miscellaneous Notes* Telephone Encounter - Anju Sánchez [...] ER. Lani Edmond LPN documented in this encounterSelect Medical [facility] [place]08-19-2024 Telephone encounter Note * Telephone Encounter - [...] go to the ER. Lani Edmond LPN [facility] [place]-19-2024 History of Present illness Narrative* Lani Edmond LPN - 10/01/2023 9:27 AM EDT Patient presents for B-12 injection. Denies any problems at this time. Patient instructed on any SEof medication, verbalized understanding and agreed to proceed with treatment. Tolerated injection well. Lani Edmond LPN documented in this encounterSelect Medical [facility] [place]08-05-2024 History of Present illness Narrative* Lani Edmond LPN - 09/17/2023 10:05 AM EDT Patient presents for B-12 injection. Denies any problems at this time. Patient instructed on any SEof medication, verbalized understanding and agreed to proceed with treatment. Tolerated injection well. Lani Edmond LPN documented in this encounterSelect Medical [facility] [place]-23-2024 Telephone encounter Note * Telephone Encounter - Lani Edmond LPN - 09/04/2023 9:23 AM EDT Patient scheduled for nurse visit 09/18/23 to receive B-[address] order at this time. Lani Edmond LPN [facility] [place]-23-2024 Miscellaneous Notes* Telephone Encounter - Lani Edmond LPN - 09/04/2023 9:23 AM EDT Patient scheduled for nurse visit 09/18/23 to receive B-[address] order at this time. Lani Edmond LPN documented in this encounterSelect Medical [facility] [place]07-22-2024 History of Present illness Narrative* Lani Edmond LPN - 09/03/2023 10:06 AM EDT Patient presents for B-12 injection. Denies any problems at this time. Patient instructed on any SEof medication, verbalized understanding and agreed to proceed with treatment. Tolerated injection well. Lani Edmond LPN documented in this encounterSelect Medical [facility] [place]-2024 History of Present illness Narrative* Lani Edmond LPN - 08/20/2023 9:37 AM EDT Patient presents for B-12 injection. Denies any problems at this time. Patient instructed on any SEof medication, verbalized understanding and agreed to proceed with treatment. Tolerated injection well. Lani Edmond LPN documented in this encounterSelect Medical [facility] [place]06-25-2024 History of Present illness Narrative* Lani Edmond LPN - 08/07/2023 10:15 AM EDT Patient presents for B-12 injection. Denies any problems at this time. Patient instructed on any SEof medication, verbalized understanding and agreed to proceed with treatment. Tolerated injection well. Lani Edmond LPN documented in this encounterSelect Medical [facility] [place]06-05-2024 Telephone encounter Note * Telephone Encounter - [...] Please advise. Thank you. Megan Ellis RN. [facility] [place]06-05-2024 Miscellaneous Notes* Telephone Encounter - Megan Ellis [...] you. Megan Ellis RN. documented in this encounterSelect Medical [facility] [place]06-04-2024 History of Present illness Narrative* Lani Edmond LPN - 07/17/2023 9:49 AM EDT Patient presents for B-12 injection. Denies any problems at this time. Patient instructed on any SEof medication, verbalized understanding and agreed to proceed with treatment. Tolerated injection well. Lani Edmond LPN documented in this encounterSelect Medical [facility] [place]05-29-2024 History of Present illness Narrative* Sharyn Rodriguez [...] HISTORY Diagnosis Date Advance care planning 08/24/2021 [facility] Diabetes mellitus, type 2 (HCC) Environmental [...] WHEN PFRMD 08/25/2003 adenomatous polyp and diverticulosis. [facility] COLONOSCOPY FLX DX W/COLLJ SPEC WHEN PFRMD 09/28/2006 No polyps found. 5 yr recall. [facility] COLONOSCOPY FLX DX W/COLLJ SPEC WHEN PFRMD 02/26/2018 Colonoscopy ESOPHAGOGASTRODUODENOSCOPY TRANSORAL DIAGNOSTIC 08/31/2003 Unremarkable, negative biopsies. [facility] ESOPHAGOGASTRODUODENOSCOPY TRANSORAL DIAGNOSTIC 02/26/2018 EGD [...] LAVAGE/IRRIGATION Sharyn Rodriguez PA-C documented in this encounterSelect Medical [facility] [place]05-29-2024 Nurse Note* Kelsey Rojas MA - 07/11/2023 11:53 AM EDT Ambulatory Ear Lavage Pre-treatment: Warm water Treatment: Both ears Equipment and Irrigation solution and Volume used: Single use syringe with single use irrigation tip Water Return flow appearance: Brown Yellow Patient tolerated procedure: yes Tympanic membrane assessment: Tympanic membrane assessed by LIP pre and post procedure Kelsey Rojas MA [facility] [place]05-29-2024 Nurse Note* Kelsey Rojas MA - 07/11/2023 11:53 AM EDT Ambulatory Ear Lavage Pre-treatment: Warm water Treatment: Both ears Equipment and Irrigation solution and Volume used: Single use syringe with single use irrigation tip Water Return flow appearance: Brown Yellow Patient tolerated procedure: yes Tympanic membrane assessment: Tympanic membrane assessed by LIP pre and post procedure Kelsey Rojas MA documented in this encounterSelect Medical [facility] [place]05-22-2024 History of Present illness Narrative* Jeff Simeon [...] HISTORY Diagnosis Date Advance care planning 08/24/2021 [facility] Diabetes mellitus, type 2 (HCC) Environmental allergies Hyperlipidemia Hypothyroidism, unspecified Liver failure (HCC) 2005 unsure of cause Migraine headache onset age 7 PAST SURGICAL HISTORY Procedure Laterality Date BREAST BIOPSY NEEDLE LEFT 12/31/2014 x 2, Dr. Ronuqillo COLONOSCOPY FLX DX W/COLLJ SPEC WHEN PFRMD 08/25/2003 adenomatous polyp and diverticulosis. [facility] COLONOSCOPY FLX DX W/COLLJ SPEC WHEN PFRMD 09/28/2006 No polyps found. 5 yr recall. [facility] COLONOSCOPY FLX DX W/COLLJ SPEC WHEN PFRMD 02/26/2018 Colonoscopy ESOPHAGOGASTRODUODENOSCOPY TRANSORAL DIAGNOSTIC 08/31/2003 Unremarkable, negative biopsies. [facility] ESOPHAGOGASTRODUODENOSCOPY TRANSORAL DIAGNOSTIC 02/26/2018 EGD LAPAROSCOPIC CHOLECYSTECTOMY 04/05/2022 REMV CATARACT EXTRACAP,INSERT LENS Bilateral TONSILLECTOMY HX Social History Tobacco Use Smoking status: Never Smokeless tobacco: Never Vaping Use Vaping Use: Never used Substance Use Topics Alcohol use: No Drug use: No FAMILY HISTORY Adopted: Yes Allergies: ALLERGIES Allergen Reactions Benadryl [Diphenhyd* Swelling Penicillins Shortness of Breath Ruosaiq-Jru-Zkn Red* Contraindication-Medical Surgical History of liver failure [...] agreed with the plan. Jeff Simeon DO [address] [place] [address] documented in this encounterSelect Medical [facility] [place]05-13-2024 Instructions* Patient Instructions* Jeff Simeon DO - 06/25/2023 4:08 PM EDT Two good brand probiotic drinks with 10-20 grams of protein and probiotic in it Peanut butter powder (PB2)- can add water to it to make peanut butter documented in this encounterSelect Medical [facility] [place]05-10-2024 Telephone encounter Note * Telephone Encounter - Pebbles Molina LPN - 06/22/2023 11:14 AM EDT Pt. informed. [facility] [place]-10-2024 Miscellaneous Notes* Telephone Encounter - Pebbles Reno LPN - 06/22/2023 11:14 AM EDT Pt. informed. * Telephone Encounter - Karson Woodward APRN.CNP - 06/22/2023 7:16 AM EDT Please let her know that there are no acute concerns with her lab work, she can discuss this in more detail at her upcoming appt with Dr. Simeon. Karson Woodward APRN.CNP documented in this encounterSelect Medical [facility] [place]05-10-2024 Telephone encounter Note * Telephone Encounter - Karson Woodward APRN.CNP - 06/22/2023 7:16 AM EDT Please let her know that there are no acute concerns with her lab work, she can discuss this in more detail at her upcoming appt with Dr. Simeon. Karson Woodward APRN.CORE FINISHER [facility] [place]05-06-2024 Telephone encounter Note* Telephone Encounter - Pebbles Molina LPN - 06/18/2023 4:55 PM EDT Pt. informed [facility] [place]05-06-2024 Miscellaneous Notes* Telephone Encounter - Pebbles Reno [...] please advise. Thank you! documented in this encounterSelect Medical [facility] [place]05-06-2024 Telephone encounter Note * Telephone Encounter - Jeff Simeon DO - 06/18/2023 4:39 PM EDT Please call patient to let her know that labs are now ordered Jeff Simeon DO [facility] [place]05-06-2024 Telephone encounter Note* Telephone Encounter - Nguyen Francisco RN - 06/18/2023 12:07 PM EDT Please call Pt once labs have been ordered. [facility] [place]-06-2024 Telephone encounter Note* Telephone Encounter - Johnson Zee - 06/18/2023 7:50 AM EDT Patient is requesting lab work for appointment on 06/25/2023. Patient came in this morning and would like to come back soon, please advise. Thank you! [facility] [place]-01-2024 History of Present illness Narrative* Lani Edmond LPN - 06/13/2023 9:54 AM EDT Patient presents for B-12 injection. Denies any problems at this time. Patient instructed on any SEof medication, verbalized understanding and agreed to proceed with treatment. Tolerated injection well. Lani Edmond LPN documented in this encounterSelect Medical [facility] [place]-17-[facility]24 History of Present illness Narrative* Lani Edmond LPN - 05/30/2023 9:25 AM EDT Patient presents for B-12 injection. Denies any problems at this time. Patient instructed on any SEof medication, verbalized understanding and agreed to proceed with treatment. Tolerated injection well. Lani Edmnod LPN documented in this encounterSelect Medical [facility] [place]04-03-2024 History of Present illness Narrative* Lani Edmond LPN - 05/16/2023 9:44 AM EDT Patient presents for B-12 injection. Denies any problems at this time. Patient instructed on any SEof medication, verbalized understanding and agreed to proceed with treatment. Tolerated injection well. Lani Edmond LPN documented in this encounterSelect Medical [facility] [place]03-20-2024 History of Present illness Narrative* Lani Edmond LPN - 05/02/2023 9:05 AM EDT Patient presents for B-12 injection. Denies any problems at this time. Patient instructed on any SEof medication, verbalized understanding and agreed to proceed with treatment. Tolerated injection well. Lani Edmond LPN documented in this encounterSelect Medical [facility] [place]03-04-[facility] History of Present illness Narrative* Lani Edmond LPN - 04/16/2023 3:07 PM EST Patient presents for B-12 injection. Denies any problems at this time. Patient instructed on any SEof medication, verbalized understanding and agreed to proceed with treatment. Tolerated injection well. Lani Edmond LPN documented in this encounterSelect Medical [facility] [place] History of Present illness Narrative* Lani Edmond LPN - 04/04/2023 9:36 AM EST Patient presents for B-12 injection. Denies any problems at this time. Patient instructed on any SEof medication, verbalized understanding and agreed to proceed with treatment. Tolerated injection well. Lani Edmond LPN documented in this encounterSelect Medical [facility] [place] History of Present illness Narrative* Lani Edmond LPN - 03/22/2023 10:07 AM EST Patient presents for B-12 injection. Denies any problems at this time. Patient instructed on any SEof medication, verbalized understanding and agreed to proceed with treatment. Tolerated injection well. Lani Edmond LPN documented in this encounterSelect Medical [facility] [place] History of Present illness Narrative* Karson Woodward APRN.CORE FINISHER - 03/19/2023 10:49 AM EST Transitional Care Management Progress Note The patients TCM visit was performed within the 14 days of discharge. Patient's Date of discharge: 03/11/2023 Date of initial coordinator contact after discharge: NA Discharge diagnosis: peritoneal abscess Medication review completed Yes Karson Woodward APRN.CORE FINISHER Provider Documentation: In follow-up of hospitalization, Nguyen [...] days from now. Seeing Dr. Singh through [facility]. PAST MEDICAL HISTORY: Reviewed and updated [...] (primary diagnosis) Continue to follow with Dr. Sinhg, oncology. 2. S/P colectomy - ICD9: V45.89, ICD10: Z90.49 Continue to follow with Dr. Singh, oncology. 3. Nausea - ICD9: 787.02, ICD10: R11.0 - ONDANSETRON 4 MG DISINTEGRATING TABLET Karson Woodward APRN.CNP March 19, 2023 10:50 AM documented in this encounterSelect Medical [facility] [place] History of Present illness Narrative* Tiffany Lang RN - 03/15/2023 12:02 PM EST TCM Home Visit Referral Source of Stratification: [facility] Admission Status: Discharged Readmission Risk Score: [...] appointments PCP / Copied from Care Everywhere [facility] 03/05-03/11 Retrocecal abscess, Right lower quadrant abdominal [...] FOR 5 DAYS SUMMARY: Discharge Network Status: Qrt-vx-Bxvxzrw (OON) Discharge Pt discharged from [facility] on 03/11/23. Admitted for: Right lower quadrant abdominal pain, retrocecal abscess, right hemicolectomy Contact made with patient: Yes Hi my name is Tiffany Lang RN and I am calling from the [facility] [place] on behalf of your PCP, Jeff Simeon, [...] like to speak with a social work warehouse team member to help give you support for any [...] I will send your request to a commercial property administrator who will contact and assist you with [...] KELLEY Education Ordered -: No MARIN Lindsay, microfabrication engineer manager [employer] [facility] documented in this encounterSelect Medical [facility] [place]01-27-2024 Progress note Author Jameson Snell [facility] March 10, 2023 1:36pm Note Date/Time March 10, 2023 1 :36pm [facility] Medical Records Department [address] [place] [address] Progress Note - Hospitalist 03/10/23 1329 MR#: [id number] Acct: [id number] Name: NGUYEN QUEEN Rep #:[id number] : 1945 77 From: Jameson Martinez PCP: Dr. Jeff Simeon, DO Status:AD IN [facility] Reason for Visit Reason for [...] % (Auto) 62.9, Lymph % (Auto) 15.5L, Gilmer % (Auto) 6.9, Eos % (Auto) 11.3 [...] to open laparotomy, right hemicolectomy with stapled wrhb-rf-mbiv ileocolic anastomosis on 03/07/2023. Intraoperative findings were [...] is controlled. At home, patient is on bpnnyziq69 mg daily. IV hydralazine as needed during [...] shock if needed Total time spent in gmsk-qw-zvpe encounter in discussion of advanced directive 17 [...] % (Auto) 62.9, Lymph % (Auto) 15.5L, Gilmer % (Auto) 6.9, Eos % (Auto) 11.3 [...] in the lung bases. Electronically Signed: Santosh iDmas MD at 5:08 EST , Avoiding red meat concentrated sugar sweets Charges/Coding Visit Charges Inpatient E&M: 70173 Subs Hosp L2 03/10/23 1336 <Electronically signed by Jameson Snell MD> Cosigner Signature (if applicable): CC: ~ Signed [facility] Work Phone: 1(826) 821-144301-27-2024 Progress note Author Richard Mckenzie [facility] March 10, 2023 9:24am Note Date/Time March 10, 2023 9 :24am [facility] Medical Records Department [address] [place] [address] Progress Note - Surgery 03/10/23 0923 MR#: [id number] Acct: [id number] Name: NGUYEN QUEEN Rep #:[id number] : 1945 77 From: Richard landa MD PCP: Dr. Jeff Simeon, DO Status:AD M IN Location: [place] [id number]- [id number] Subjective Subjective Patient reports she is [...] % (Auto) 62.9, Lymph % (Auto) 15.5L, Gilmer % (Auto) 6.9, Eos % (Auto) 11.3 [...] discharge. Continue antibioticstoday. Richard Mckenzie MD Pager: [facility] [address] [place] [address], [address] [place] [address] Office: 03/10/23 3008 <Electronically signed by Richard Mckenzie MD> Cosigner Signature (if applicable): CC: ~ Signed [facility] Work Phone: 1(628) 492-780201-26-2024 Progress note Author Jameson Snell [facility] March 09, 2023 3:58pm Note Date/Time March 09, 2023 3 :58pm [facility] Medical Records Department [address] [place] [address] Progress Note - Hospitalist 03/09/23 1552 MR#: [id number] Acct: [id number] Name: NGUYEN QUEEN Rep #:[id number] : 1945 77 From: Jameson Martinez PCP: Dr. Jeff Simeon, DO Status:AD M IN Location: [place] [id number]- [id number] Reason for Visit Reason for Visit: [...] 70.1 H, Lymph % (Auto) 11.1 L, Gilmer % (Auto) 7.4, Eos % (Auto) 7.2 [...] to open laparotomy, right hemicolectomy with stapled bgwa-da-nqrx ileocolic anastomosis on 03/07/2023. Intraoperative findings were [...] is controlled. At home, patient is on oxupchkg67 mg daily. IV hydralazine as needed during [...] shock if needed Total time spent in hrgs-ya-pgzf encounter in discussion of advanced directive 17 [...] EST , Charges/Coding Visit Charges Inpatient E&M: 40064 Subs Hosp L2 03/09/23 1558 <Electronically signed by Jameson Snell MD> Cosigner Signature (if applicable): CC: ~ Signed [facility] Work Phone: 1(434) 158-157801-26-2024 Progress note Author Santosh Ballard [facility] March 09, 2023 9:35am Note Date/Time March 09, 2023 7 :22am [facility] Medical Records Department [address] [facility] [address] Progress Note - Surgery 03/09/23 0721 MR#: [id number] Acct: [id number] Name: NGUYEN QUEEN Rep #:[id number] : 1945 77 From: Santosh Martinez PCP: Dr. Jeff Simeon, DO Status:AD M IN Location: [facility] BLI430- 1 Subjective Subjective Patient seen and examined [...] 70.1 H, Lymph % (Auto) 11.1 L, Gilmer % (Auto) 7.4, Eos % (Auto) 7.2 [...] inpatient stay Charges/Coding Visit Charges Inpatient E&M: 39417 Subs Hosp L2 03/09/23 0935 <Electronically signed by Santosh Ballard MD> Cosigner Signature (if applicable): CC: ~ Signed [facility] Work Phone: 1(108) 909-989301-25-2024 Progress note Author Jamesonroyce Snell [facility] March 08, 2023 1:55pm Note Date/Time March 08, 2023 1 :55pm [facility] Medical Records Department [address] [place] [address] Progress Note - Hospitalist 03/08/23 1349 MR#: [id number] Acct: [id number] Name: NGUYEN QUEEN Rep #:[id number] : 1945 77 From: Jameson Martinez PCP: Dr. Jeff Simeon, DO Status:AD M IN Location: [place] [address]- 1 Reason for Visit Reason for Visit: [...] 77.4 H, Lymph % (Auto) 9.7 L, Gilmer % (Auto) 8.4, Eos % (Auto) 2.0, [...] to open laparotomy, right hemicolectomy with stapled lxmn-iw-wyus ileocolic anastomosis on 03/07/2023. Intraoperative findings were [...] is controlled. At home, patient is on ippwmoal52 mg daily. IV hydralazine as needed during [...] shock if needed Total time spent in ktsj-cj-foht encounter in discussion of advanced directive 17 [...] 77.4 H, Lymph % (Auto) 9.7 L, Gilmer % (Auto) 8.4, Eos % (Auto) 2.0, [...] EST , Charges/Coding Visit Charges Inpatient E&M: 61213 Subs Hosp L2 03/08/23 1355 <Electronically signed by Jameson Snell MD> Cosigner Signature (if applicable): CC: ~ Signed [facility] Work Phone: 1(195) 883-714601-25-2024 Progress note Author Nguyen Sloan [facility] March 08, 2023 8:44am Note Date/Time March 08, 2023 7 :55am [facility] Medical Records Department [address] [facility] [address] Progress Note - Surgery 03/08/23 0755 MR#: [id number] Acct: [id number] Name: NGUYEN QUEEN Rep #:[id number] : 1945 77 From: Nguyen REDDY PA-C PCP: Dr. Jeff Simeon, DO Status:AD M IN Location: [facility] [id number]- 1 Subjective Subjective Patient is a 77 [...] 84.0 H, Lymph % (Auto) 5.9 L, Gilmer % (Auto) 9.1, Eos % (Auto) 0.0, [...] 77.4 H, Lymph % (Auto) 9.7 L, Gilmer % (Auto) 8.4, Eos % (Auto) 2.0, [...] Abdominal Wound Culture - Preliminary GNR lactose fund development manager Physical Exam GI GI Narrative: Abdomen- incision [...] this patient Charges/Coding Visit Charges Inpatient E&M: 17152 Subs Hosp L1 (no charge; post-op) 03/08/23 0844 <Electronically signed by Nguyen REDDY PA-C> Cosigner Signature (if applicable): CC: ~ Signed [facility] Work Phone: 1(861) 799-658401-24-2024 Progress note Author Jameson Snell [facility] March 07, 2023 2:20pm Note Date/Time March 07, 2023 2 :20pm [facility] Medical Records Department [address] [place] [address] Progress Note - Hospitalist 03/07/23 1412 MR#: [id number] Acct: [id number] Name: NGUYEN QUEEN Rep #:[id number] : 1945 77 From: Jameson Martinez PCP: Dr. Jeff Simeon, DO Status:AD M IN Location: [place] [address] Reason for Visit Reason for Visit: Diagnoses [...] 84.0 H, Lymph % (Auto) 5.9 L, Gilmer % (Auto) 9.1, Eos % (Auto) 0.0, [...] Abdominal Wound Culture - Preliminary GNR lactose fund development manager Radiography Diagnostic Testing: Radiology Impression Chest X-Ray [...] to open laparotomy, right hemicolectomy with stapled wuce-fm-kdyc ileocolic anastomosis on 03/07/2023. Intraoperative findings were [...] shock if needed Total time spent in srtq-lp-mrcq encounter in discussion of advanced directive 17 minutes. Laboratory Results 03/05/23 19:30: Urine Color Yellow, Urine Clarity Sl. Cloudy, Urine pH 5.0, Ur Specific [place] 1.025, Urine Protein 30 H, Urine Glucose [...] 83.7 H, Lymph % (Auto) 7.9 L, Gilmer % (Auto) 6.6, Eos % (Auto) 0.8, [...] (Auto) 83.9 H, Lymph % (Auto)6.4 L, Gilmer % (Auto) 7.8, Eos % (Auto) 0.8, [...] 147 H Charges/Coding Visit Charges Inpatient E&M: 61701 Subs Hosp L2 03/07/23 1420 <Electronically signed by Jameson Snell MD> Cosigner Signature (if applicable): CC: ~ Signed [facility] Work Phone: 1(680) 503-682901-24-2024 Progress note Author Santosh Ballard [facility] March 07, 2023 9:16am Note Date/Time March 07, 2023 9 :16am [facility] Medical Records Department [address] [place] [address] Progress Note - Surgery 03/07/23906 MR#: [id number] Acct: [id number] Name: NGUYEN QUEEN Rep #:[id number] : 1945 77 From: Santosh Martinez PCP: Dr. Jeff Simeon, DO Status:AD M IN Location: [facility] [id number]- 1 Subjective Subjective Patient is found sitting [...] 84.0 H, Lymph % (Auto) 5.9 L, Gilmer % (Auto) 9.1, Eos % (Auto) 0.0, [...] inpatient stay Charges/Coding Visit Charges Inpatient E&M: 76756 Subs Hosp L2 03/07/23 0916 <Electronically signed by Santosh Ballard MD> Cosigner Signature (if applicable): CC: ~ Signed [facility] Work Phone: 1(191) 222-568001-24-2024 Procedure [facility] 03-06-2023 Consult note Author Jameson Snell [facility] March 06, 2023 2:59pm Note Date/Time March 06, 2023 8 :45am [facility] Medical Records Department [address] [place] [address] Consultation - Hospitalist 03/06/23 0844 MR#: [id number] Acct: [id number] Name: NGUYEN QUEEN Rep #:[id number] : 1945 77 From: Jameson Martinez PCP: Dr. Jeff Simeon, DO Status:AD M IN Location: [facility] RWC642- 1 Assessment & Plan Assessment/Plan (1) Retrocecal [...] is controlled. At home, patient is on raxatnfg42 mg daily. IV hydralazine as needed during [...] shock if needed Total time spent in cjxv-sa-byhp encounter in discussion of advanced directive 17 minutes. Laboratory Results 03/05/23 19:30: Urine Color Yellow, Urine Clarity Sl. Cloudy, Urine pH 5.0, Ur Specific [place] 1.025, Urine Protein 30 H, Urine Glucose [...] 83.7 H, Lymph % (Auto) 7.9 L, Gilmer % (Auto) 6.6, Eos % (Auto) 0.8, [...] (Auto) 83.9 H, Lymph % (Auto)6.4 L, Gilmer % (Auto) 7.8, Eos % (Auto) 0.8, [...] hypothyroidism. She denies chronic heart conditions including MT/unstable angina or CHF. Denies chronic lung disease. [facility] Medical History Anemia Chronic pain [...] Sl. Cloudy, Urine pH 5.0, Ur Specific [place] 1.025, Urine Protein 30 H, Urine Glucose [...] 83.7 H, Lymph % (Auto) 7.9 L, Gilmer % (Auto) 6.6, Eos % (Auto) 0.8, [...] (Auto) 83.9 H, Lymph % (Auto)6.4 L, Gilmer % (Auto) 7.8, Eos % (Auto) 0.8, [...] Charges/Coding Visit Charges Office Visits / Consults: 26094 IP Consult L4 Procedures Hospitalists Procedures: 20298 Advncd Care Plan 30 Min 03/06/23 1459 [...] Myers; BARRY Menezes; Casey Gupta MD~ Signed [facility] Work Phone: 1(806) 282-685401-23-2024 Progress note Author Nguyen Sloan [facility] March 06, 2023 8:17am Note Date/Time March 06, 2023 8 :10am [facility] Medical Records Department [address] [place] [address] Progress Note - Surgery 03/06/23 0804 MR#: [id number] Acct: [id number] Name: NGUYEN QUEEN Rep #:[id number] : 1945 77 From: Nguyen REDDY PA-C PCP: Dr. Jeff Simeon, DO Status:AD M IN Location: [facility] [id number]- 1 Subjective Subjective Patient is a 77 y/o F I am following in conjunction with Dr. Ballard. She notes right lower quadrant which waxed and waned over night. Patient notes history of diabetes which is well controlled. Patient does all of her doctoring with the [facility]. She denies nausea, vomiting this morning. [...] Sl. Cloudy, Urine pH 5.0, Ur Specific [place] 1.025, Urine Protein 30 H, Urine Glucose [...] 83.7 H, Lymph % (Auto) 7.9 L, Gilmer % (Auto) 6.6, Eos % (Auto) 0.8, [...] (Auto) 83.9 H, Lymph % (Auto)6.4 L, Gilmer % (Auto) 7.8, Eos % (Auto) 0.8, [...] this patient. Charges/Coding Visit Charges Inpatient E&M: 21672 Subs Hosp L1 03/06/23 0817 <Electronically signed by Nguyen REDDY PA-C> Cosigner Signature (if applicable): CC: ~ Signed [facility] Work Phone: [phone]) 481-320301-23-2024 Discharge summary Author Stas Arredondo [facility] March 05, 2023 11:24pm Note Date/Time March 05, 2023 7 :19pm [facility] Medical Records Department [address] [facility] [place] [address] Emergency Department Summary 03/05/23 MR#: [id number] Acct: [id number] Name: NGUYEN QUEEN BARBARA Rep #:[id number] : 1945 77 From: Stas Betancur PCP: Dr. Jeff Simeon, DO Status:AD M IN Location: [place] [address] HPI HPI - GI History of Present [...] the 200s over the past few days. [facility] Medical History (Updated 03/05/23 @ 21:22 by [...] 83.7 H Lymph % (Auto) 7.9 L Gilmer % (Auto) 6.6 Eos % (Auto) 0.8 [...] Sl. Cloudy Urine pH 5.0 Ur Specific [place] 1.025 Urine Protein 30 H Urine Glucose [...] by myself. Management Discussion w/another healthcare provider: Processing Inspector (Dr. Ballard from general surgery) Treatment and [...] Jeff Simeon Disposition Disposition: Acute Care Hospital [facility] What to do if you have Problems For any increased pain, shortness of breath, bleeding, nausea or vomiting, chestpain, or any unexpected problems, contact your Primary Care Provider. Call [facility] ([phone]) or report to the closest Emergency Room. Call 911 if necessary. 03/05/232323 <Electronically signed by Stas Arredondo DO> Cosigner Signature (if applicable): CC: Dr. Jeff Simeon DO ~ Signed [facility] Work Phone: 1([phone]) 821-824201-23-2024 History and physical note Author Santosh Ballard [facility] March 05, 2023 10:59pm Note Date/Time March 05, 2023 1 0:59pm [facility] Medical Records Department [address] [place] [address] History & Physical Exam 03/05/235 MR#: [id number] Acct: [id number] Name: NGUYEN QUEEN Rep #:[id number] : 1945 77 From: Santosh Martinez PCP: Dr. Jeff Simeon, DO Status:RE G ER Location: ED HPI - General General Date of Admission: 03/05/23 Date of Service: 03/05/23 Chief Complaint: Right lower quadrant abdominal pain HPI Narrative NGUYEN QUEEN, is a 77 F, with history of well-controlled diabetes mellitus, who presents to [facility] with complaints of right lower quadrant abdominal [...] recently discovered that she is 50% Ashkenazi Zoroastrianism and she attributes many of her allergies (stating that she is allergic to even air [she] breathes to this background. [facility] Medical History (Updated 03/05/23 @ [...] Sl. Cloudy, Urine pH 5.0, Ur Specific [place] 1.025, Urine Protein 30 H, Urine Glucose [...] 83.7 H, Lymph % (Auto) 7.9 L, Gilmer % (Auto) 6.6, Eos % (Auto) 0.8, [...] that we proceed with treatment here at [facility] or otherwise seek transfer to a [facility] facility where she apparently has more extensive medical records. She confirms her intent to see her care through here [facility] and I therefore recommend that we proceed [...] the ORtomorrow. Charges/Coding Visit Charges Inpatient E&M: 83323 Init Hosp L2 03/05/23 7956 <Electronically signed by Santosh Ballard MD> Cosigner Signature (if applicable): CC: Dr. Jeff Simeon DO; Dr. Santosh Ballard MD~ Signed [facility] Work Phone: 1([phone]) 948-774801-22-2024 Discharge summary Author Stas Arredondo [facility] March 05, 2023 11:24pm Note Date/Time March 05, 2023 7 :19pm [facility] Medical Records Department [address] [place] [address] Emergency Department Summary 03/05/23 MR#: [id number] Acct: [id number] Name: NGUYEN QUEEN Rep #:[id number] : 1945 77 From: Stas Betancur PCP: Dr. Jeff Simeon DO Status:AD M IN Location: [place] [address] HPI HPI - GI History of Present [...] the 200s over the past few days. [facility] Medical History (Updated 03/05/23 @ 21:22 by [...] 83.7 H Lymph % (Auto) 7.9 L Gilmer % (Auto) 6.6 Eos % (Auto) 0.8 [...] Sl. Cloudy Urine pH 5.0 Ur Specific [place] 1.025 Urine Protein 30 H Urine Glucose [...] by myself. Management Discussion w/another healthcare provider: Processing Inspector (Dr. Ballard from general surgery) Treatment and [...] Jeff Simeon Disposition Disposition: Acute Care Hospital [facility] What to do if you have Problems For any increased pain, shortness of breath, bleeding, nausea or vomiting, chestpain, or any unexpected problems, contact your Primary Care Provider. Call [facility] ([phone]) or report to the closest Emergency Room. Call 911 if necessary. 03/05/232323 <Electronically signed by Stas Arredondo DO> Cosigner Signature (if applicable): CC: Dr. Jeff Simeon DO ~ Signed [facility] Work Phone: 1(441) 669-810112-14-2023 History of Present illness Narrative* Lani Edmond LPN - 01/25/2023 10:22 AM EST Patient presents for B-12 injection. Denies any problems at this time. Patient instructed on any SEof medication, verbalized understanding and agreed to proceed with treatment. Tolerated injection well. Lani Edmond LPN documented in [facility] [place] History of Present illness Narrative* Lani Edmond LPN - 12/28/2022 9:50 AM EST Patient presents for B-12 injection. Denies any problems at this time. Patient instructed on any SEof medication, verbalized understanding and agreed to proceed with treatment. Tolerated injection well. Lani Edmond LPN documented in this encounterSelect Medical [facility] [place]-2023 History of Present illness Narrative* Jeff Simeon [...] HISTORY Diagnosis Date Advance care planning 08/24/2021 [facility] Diabetes mellitus, type 2 (HCC) Environmental allergies Hyperlipidemia Hypothyroidism, unspecified Liver failure (HCC) 2004 unsure of cause Migraine headache onset age 7 PAST SURGICAL HISTORY Procedure Laterality Date BREAST BIOPSY NEEDLE LEFT 12/31/2014 x 2, Dr. Ronquillo COLONOSCOPY FLX DX W/COLLJ SPEC WHEN PFRMD 08/25/2003 adenomatous polyp and diverticulosis. [facility] COLONOSCOPY FLX DX W/COLLJ SPEC WHEN PFRMD 09/28/2006 No polyps found. 5 yr recall. [facility] COLONOSCOPY FLX DX W/COLLJ SPEC WHEN PFRMD 02/26/2018 Colonoscopy ESOPHAGOGASTRODUODENOSCOPY TRANSORAL DIAGNOSTIC 08/31/2003 Unremarkable, negative biopsies. [facility] ESOPHAGOGASTRODUODENOSCOPY TRANSORAL DIAGNOSTIC 02/26/2018 EGD LAPAROSCOPIC CHOLECYSTECTOMY 04/05/2022 REMV CATARACT EXTRACAP,INSERT LENS Bilateral TONSILLECTOMY HX Social History Tobacco Use Smoking status: Never Smokeless tobacco: Never Vaping Use Vaping Use: Never used Substance Use Topics Alcohol use: No Drug use: No FAMILY HISTORY Adopted: Yes Allergies: ALLERGIES Allergen Reactions Benadryl [Diphenhyd* Swelling Penicillins Shortness of Breath Jnefmzo-Lkc-Cth Red* Contraindication-Medical Surgical History of liver failure [...] with the plan. Jeff Simeon DO [address] [place] [address] documented in this encounterSelect Medical [facility] [place]23 History of Present illness Narrative* Lani Edmond LPN - 11/30/2022 9:16 AM EDT Patient presents for B-12 injection. Denies any problems at this time. Patient instructed on any SEof medication, verbalized understanding and agreed to proceed with treatment. Tolerated injection well. Lani Edmond LPN documented in this encounterSelect Medical [facility] [place]23 History of Present illness Narrative* Lani Edmond LPN - 11/16/2022 9:00 AM EDT Patient presents for B-12 injection. Denies any problems at this time. Patient instructed on any SEof medication, verbalized understanding and agreed to proceed with treatment. Tolerated injection well. Lani Edmond LPN documented in this encounterSelect Medical [facility] [place]23 History of Present illness Narrative* Lani Edmond LPN - 11/03/2022 8:53 AM EDT Patient presents for B-12 injection. Denies any problems at this time. Patient instructed on any SEof medication, verbalized understanding and agreed to proceed with treatment. Tolerated injection well. Lani Edmond LPN documented in this encounterSelect [facility] [facility] [place] History of Present illness Narrative* Lani Edmond LPN - 10/17/2022 9:11 AM EDT Patient presents for B-12 injection. Denies any problems at this time. Patient instructed on any SEof medication, verbalized understanding and agreed to proceed with treatment. Tolerated injection well. Lani Edmond LPN documented [facility] encounter[facility] [place] Miscellaneous Notes* Telephone Encounter - Maribeth Andrade Ma - 10/05/2022 11:39 AM EDT Left detailed message on voicemail that labs are normal Maribeth Andrade Ma * Telephone Encounter - Jeff Simeon DO - 10/05/2022 10:22 AM EDT Please inform patient that her recent liver enzyme labs and free t4 thyroid levels are normal Jeff Simeon DO documented in this encounterSelect [facility] [place] History of Present illness Narrative* Lani Edmond LPN - 10/02/2022 9:42 AM EDT Patient presents for B-12 injection. Denies any problems at this time. Patient instructed on any SEof medication, verbalized understanding and agreed to proceed with treatment. Tolerated injection well. Lani Edmond LPN documented in [facility] encounter[facility] [place] History of Present illness Narrative* Lani Edmond LPN - 09/19/2022 9:28 AM EDT Patient presents for B-12 injection. Denies any problems at this time. Patient instructed on any SEof medication, verbalized understanding and agreed to proceed with treatment. Tolerated injection well. Lani Edmond LPN documented in this encounter[facility] [place] History of Past illness Narrative* Problem Noted [...] of this encounter (statuses as of 03/16/2023) [facility] [place] History of Past illness Narrative* Problem Noted [...] of this encounter (statuses as of 03/22/2023) [facility] [place] History of Past illness Narrative* Problem Noted [...] of this encounter (statuses as of 03/22/2023) [address]25-2023 History of Past illness Narrative* Problem [...] of this encounter (statuses as of 04/04/2023) [facility] [place] History of Past illness Narrative* Problem Noted [...] of this encounter (statuses as of 04/16/2023) [address]25-2023 History of Past illness Narrative* Problem [...] of this encounter (statuses as of 05/02/2023) [facility] [place] History of Past illness Narrative* Problem Noted [...] of this encounter (statuses as of 05/16/2023) [facility] [place] History of Past illness Narrative* Problem Noted [...] of this encounter (statuses as of 05/30/2023) [facility] [place] History of Present illness Narrative* Lani Edmond LPN - 08/07/2022 11:24 AM EDT Patient presents for B-12 injection. Denies any problems at this time. Patient instructed on any SEof medication, verbalized understanding and agreed to proceed with treatment. Tolerated injection well. Lani Edmond LPN documented in this encounterSelect [facility] [place] History of Present illness Narrative* Lani Edmond LPN - 07/11/2022 9:33 AM EDT Patient presents for B-12 injection. Denies any problems at this time. Patient instructed on any SEof medication, verbalized understanding and agreed to proceed with treatment. Tolerated injection well. Lani Edmond LPN documented in this encounter[facility] [place] History of Present illness Narrative* Lani Edmond LPN - 06/12/2022 9:09 AM EDT Patient presents for B-12 injection. Denies any problems at this time. Patient instructed on any SEof medication, verbalized understanding and agreed to proceed with treatment. Tolerated injection well. Lani Edmond LPN documented in this encounterSelect [facility] [place] History of Present illness Narrative* Jeff Simeon [...] WHEN PFRMD 08/25/2003 adenomatous polyp and diverticulosis. [facility] COLONOSCOPY FLX DX W/COLLJ SPEC WHEN PFRMD 09/28/2006 No polyps found. 5 yr recall. G[facility]vara. [facility] COLONOSCOPY FLX DX W/COLLJ SPEC WHEN PFRMD 02/26/2018 Colonoscopy ESOPHAGOGASTRODUODENOSCOPY TRANSORAL DIAGNOSTIC 08/31/2003 Unremarkable, negative biopsies. [facility] ESOPHAGOGASTRODUODENOSCOPY TRANSORAL DIAGNOSTIC 02/26/2018 EGD LAPAROSCOPIC CHOLECYSTECTOMY 04/05/2022 REMV CATARACT EXTRACAP,INSERT LENS Bilateral TONSILLECTOMY HX Social History Tobacco Use Smoking status: Never Smokeless tobacco: Never Vaping Use Vaping Use: Never used Substance Use Topics Alcohol use: No Drug use: No FAMILY HISTORY Adopted: Yes Allergies: ALLERGIES Allergen Reactions Benadryl [Diphenhyd* Swelling Penicillins Shortness of Breath Djcpjvz-Xec-Kzw Red* Contraindication-Medical Surgical History of liver failure [...] Thyroid.^Disp: 90 tablet^Rfl: 3 blood sugar diagnostic (HashTipTOUCH ULTRA TEST STRIP) test strip^Type 2 diabetes, [...] with the plan. Jeff Simeon DO [address] [place] [address] documented in this encounterSelect [facility] [place] History of Present illness Narrative* Lani Edmond LPN - 05/15/2022 9:00 AM EDT Patient presents for B-12 injection. Denies any problems at this time. Patient instructed on any SEof medication, verbalized understanding and agreed to proceed with treatment. Tolerated injection well. Lani Edmond LPN documented in this encounterSelect [facility] [place] History of Present illness Narrative* Nguyen Campos PA-C - 04/21/2022 3:25 PM EST FOLLOW UP VISIT - CHOLECYSTECTOMY NAME: Nguyen Glover [facility] NO.: [id number] DATE OF SERVICE: 04/13/2022 : 1945 REFERRING [...] needed. Nguyen Campos PA-C documented in this encounterSelect [facility] [place] Instructions* Patient Instructions* Nguyen Campos PA-C - 04/13/2022 9:33 AM EST -Continue warm compresses as needed for discomfort -OK to begin walking dog in the next few days The following instructions are important for you related to your office visit today with the [facility] General Surgeons. INSTRUCTIONS FOLLOWING YOU [...] you should contact our office immediately @ [phone] and ask to be transferred to the General Surgery department. documented in this encounterSelect [facility] [place] Instructions* Patient Instructions* Nguyen Campos PA-C - 04/10/2022 2:07 PM EST -Heating pad/warm compresses -Aleve short-term for pain -May use abdominal binder when up and ambulating -Call immediately if any worsening symptoms The following instructions are important for you related to your office visit today with the [facility]. INSTRUCTIONS FOLLOWING YOU [...] you should contact our office immediately @ [phone] and ask to be transferred to the General Surgery department. documented in this encounterSelect [facility] [place] History of Present illness Narrative* Nguyen Campos PA-C - 04/10/2022 2:05 PM EST FOLLOW UP VISIT - CHOLECYSTECTOMY NAME: Nguyen Glover [facility] NO.: [id number] DATE OF SERVICE: 04/10/2022 : 1945 REFERRING [...] days. Nguyen Campos PA-C documented in this encounterSelect [facility] [place]-2023 NoteHNO ID: [id number] Author: Kelly Jordan APRN.MILLING PLANER OPERATOR Service: Anesthesiology Author Type: Nurse Clinical Applications Manager Type: Anesthesia Procedure Notes Filed: 04/05/2022 7:52 AM Note Text: ANESTHESIOLOGY PROCEDURE NOTE Airway General Information Procedure Start Time/Medication Administration: 04/05/2022 7:40 AM Patient location during procedure: OR Timeout Performed Pre-procedure: timeout performed Consent Obtained: Yes Patient identity confirmed: arm band, care warehouse team member and patient Staffing Anesthesiologist: Nohemi Ortiz MD MILLING PLANER OPERATOR: Kelly Jordan APRN.MILLING PLANER OPERATOR Performed by: MILLING PLANER OPERATOR Indications and Patient Condition Indications for airway [...] 1 Airway not difficult SIGNATURE: Kelly Jordan APRN.MILLING PLANER OPERATOR PATIENT NAME: Nguyen Queen DATE: April 05, 2022 TIME: 7:51 AM CSN: [id number] Instructions* Patient Instructions* Snehal Yee APRN.CORE FINISHER - 04/03/2022 12:07 PM EST PATIENT PREOPERATIVE INSTRUCTIONS [facility]: [phone] -- [address] [address]. Please read below carefully for your personalized [...] Procedures: - YOU MUST HAVE A RESPONSIBLE ASSEMBLY MEMBER TAKE YOU HOME. A FACILITY DESIGNER OR CORPORATE TAX MANAGER CANNOT BE MADE A RESPONSIBLE ASSEMBLY MEMBER. - We recommend that a responsible person [...] Advance Directive, please fax a copy to [phone] or email to for it to be [...] day. Snehal Yee APRN.CNP documented in this encounterSelect [facility] [place] History and physical note * Snehal Yee [...] > 1 time per night or hematuria. BREAD MOLDER: Negative for abnormal vaginal bleeding, abnormal vaginal [...] WHEN PFRMD 08/25/2003 adenomatous polyp and diverticulosis. [facility] COLONOSCOPY FLX DX W/COLLJ SPEC WHEN PFRMD 09/28/2006 No polyps found. 5 yr recall[facility] SPEC WHEN PFRMD 02/26/2018 Colonoscopy ESOPHAGOGASTRODUODENOSCOPY TRANSORAL DIAGNOSTIC 08/31/2003 Unremarkable, negative biopsies. [facility] ESOPHAGOGASTRODUODENOSCOPY TRANSORAL DIAGNOSTIC 02/26/2018 EGD [...] Benadryl [Diphenhyd* Swelling Penicillins Shortness of Breath Slmlxmh-Lkx-Ehz Red* Contraindication-Medical Surgical History of liver failure [...] or any previous visit (from the past 61463 hour(s)). Assessment Patient has the following medical [...] large neck Non-male patient STOP-Bang Score: 2 [id number] Score: Age: 65-74 Sex: Female CHF history: No Hypertension history: Yes Stroke/TIA/thromboembolism history: No Vascular disease history: No Diabetes history: Yes [id number] Score: 4 ASA Class: 2 ANESTHESIA FINDINGS: Intubation History: No history of difficult intubation. No abnormal airway history Significant Anesthesia Considerations: Per patient in the past she's stopped breathing during 2 surgeries. Unsure why this was. Had surgery at [place] [phone] without issues. potential difficult IV/vein access Airway [...] 10:38 AM PAGER/CONTACT #: documented in this encounterSelect [facility] [place] History of Present illness Narrative* Jessee Holloway [...] more recently had an endoscopy performed at [place] where the anesthesiologist told her that she [...] WHEN PFRMD 08/25/2003 adenomatous polyp and diverticulosis. [facility] COLONOSCOPY FLX DX W/COLLJ SPEC WHEN PFRMD 09/28/2006 No polyps found. 5 yr recall. [facility]uevara. [facility] COLONOSCOPY FLX DX W/COLLJ SPEC WHEN PFRMD 02/26/2018 Colonoscopy ESOPHAGOGASTRODUODENOSCOPY TRANSORAL DIAGNOSTIC 08/31/2003 Unremarkable, negative biopsies. [facility] ESOPHAGOGASTRODUODENOSCOPY TRANSORAL DIAGNOSTIC 02/26/2018 EGD [...] 0907 ALLERGIES: Benadryl [Diphenhydramine Hcl], Penicillins, and Diggevx-Mki-Wgp Reductase Inhibitors PERSONAL HISTORY: Social History Tobacco Use Smoking status: Never Smokeless tobacco: Never Vaping Use Vaping Use: Never used Substance Use Topics Alcohol use: No Drug use: No FAMILY HISTORY: FAMILY HISTORY Adopted: Yes REVIEW OF SYMPTOMS: The review of systems data was entered by the nurse and reviewed by co Nursing Notes: Sheri Roth LPN 03/24/2022 10:30 [...] Procedure: LAPAROSCOPIC CHOLECYSTECTOMY WITH INTRAOPERATIVE CHOLEANGIOGRAM - [id number] Planned antibiotic: clindamycin 900mg [employer] employee communications manager to OR SCDs needed - Yes Correctional Maintenance Technician Needed - Yes Diagnoses: (R10.11) RUQ abdominal pain (K80.20) Calculus of gallbladder without cholecystitis without obstruction (K76.0) Fatty liver My findings have been communicated to Dr. Jeff Simeon DO via shared medical record. This note will be forwarded to Dr. Jeff Simeon DO. Jessee Holloway MD documented in this encounterSelect [facility] [place] Nurse Note* Sheri Roth, DOCUMENT PROCESSING SPECIALIST - 03/24/2022 10:27 AM EST REVIEW OF [...] 2019 Sheri Roth LPN documented in this encounterSelect [facility] [place] Miscellaneous Notes* Telephone Encounter - Brinda Melo [...] advise on US results. documented in this encounterSelect Medical [facility] [place] History of Present illness Narrative* Lani Edmond LPN - 03/20/2022 9:14 AM EST Patient presents for B-12 injection. Denies any problems at this time. Patient instructed on any SEof medication, verbalized understanding and agreed to proceed with treatment. Tolerated injection well. Lani Edmond LPN documented in this encounterSelect [facility] [place] History of Present illness Narrative* Jeff Simeon, [...] was within the past 12 months Ms. uQeen reports history of hyperlipidemia. Current therapy includes diet and exercise. Denies side effects of muscle weakness or achiness. Her most recent lipid panels are reviewed. Cholesterol, Total (mg/dL) Date Value 2021 164 02/15/2021 189 HDL Cholesterol (mg/dL) Date Value 2021 33 02/15/2021 34 LDL Cholesterol (mg/dL) Date Value 2021 99 02/15/2021 122 Triglyceride (mg/dL) Date Value 2021 159 02/15/2021 165 Ms. uQeen indicates a history of hypertension and states [...] WHEN PFRMD 08/25/2003 adenomatous polyp and diverticulosis. [facility] COLONOSCOPY FLX DX W/COLLJ SPEC WHEN PFRMD 09/28/2006 No polyps found. 5 yr recall. [facility]uevara. [facility] COLONOSCOPY FLX DX W/COLLJ SPEC WHEN PFRMD 02/26/2018 Colonoscopy ESOPHAGOGASTRODUODENOSCOPY TRANSORAL DIAGNOSTIC 08/31/2003 Unremarkable, negative biopsies. [facility] ESOPHAGOGASTRODUODENOSCOPY TRANSORAL DIAGNOSTIC 02/26/2018 EGD TONSILLECTOMY HX Social History Tobacco Use Smoking status: Never Smokeless tobacco: Never Substance Use Topics Alcohol use: No Drug use: No FAMILY HISTORY Adopted: Yes Allergies: ALLERGIES Allergen Reactions Benadryl [Diphenhyd* Swelling Penicillins Shortness of Breath Dpljkpt-Dpz-Dsd Red* Contraindication-Medical Surgical History of liver failure [...] with supplements or by diet (goal of 4559-3439 mg/day - Set up for bone mineral [...] with the plan. Jeff Simeon DO [address] [place] [address] documented in this encounterSelect [facility] [place] History of Present illness Narrative* Lani Edmond LPN - 01/17/2022 9:10 AM EST Patient presents for B-12 injection. Denies any problems at this time. Patient instructed on any SEof medication, verbalized understanding and agreed to proceed with treatment. Tolerated injection well. Lani Edmond LPN documented in this encounterSelect [facility] [place] History of Present illness Narrative* Jael Connolly LPN - 12/20/2021 8:58 AM EST Patient here for B12 injection. Given IM in right arm. Patient tolerated injection well. documented in this encounterSelect [facility] [place] History of Present illness Narrative* Jeff Simeon [...] WHEN PFRMD 08/25/2003 adenomatous polyp and diverticulosis. [facility] COLONOSCOPY FLX DX W/COLLJ SPEC WHEN PFRMD 09/28/2006 No polyps found. 5 yr recall. [facility]a. [facility] COLONOSCOPY FLX DX W/COLLJ SPEC WHEN PFRMD 02/26/2018 Colonoscopy ESOPHAGOGASTRODUODENOSCOPY TRANSORAL DIAGNOSTIC 08/31/2003 Unremarkable, negative biopsies. [facility] ESOPHAGOGASTRODUODENOSCOPY TRANSORAL DIAGNOSTIC 02/26/2018 EGD TONSILLECTOMY HX Social History Tobacco Use Smoking status: Never Smokeless tobacco: Never Substance Use Topics Alcohol use: No Drug use: No FAMILY HISTORY Adopted: Yes Allergies: ALLERGIES Allergen Reactions Benadryl [Diphenhyd* Swelling Penicillins Shortness of Breath Awnfgtk-Upq-Cqj Red* Contraindication-Medical Surgical History of liver failure [...] agreed with the plan. Jeff Simeon DO [address] [place] [address] documented in this encounterSelect [facility] [place] History of Present illness Narrative* Jael Connolly LPN - 10/20/2021 9:17 AM EDT Patient presents for B-12 injection. Denies any problems at this time. Patient instructed on any SEof medication, verbalized understanding and agreed to proceed with treatment. Tolerated injection well. Jael Connolly LPN documented in this encounterSelect [facility] [place] History of Present illness Narrative* Lani Edmond LPN - 07/18/2021 9:34 AM EDT Patient presents for B-12 injection. Denies any problems at this time. Patient instructed on any SEof medication, verbalized understanding and agreed to proceed with treatment. Tolerated injection well. Lani Edmond LPN documented in this encounterSelect [facility] [place]2022 History of Present illness Narrative* Lani Edmond LPN - 07/04/2021 9:36 AM EDT Patient presents for B-12 injection. Denies any problems at this time. Patient instructed on any SEof medication, verbalized understanding and agreed to proceed with treatment. Tolerated injection well. Lani Edmond LPN documented in this encounterSelect [facility] [place]-2022 History of Present illness Narrative* Lani Edmond LPN - 06/20/2021 2:39 PM EDT Patient presents for B-12 injection. Denies any problems at this time. Patient instructed on any SEof medication, verbalized understanding and agreed to proceed with treatment. Tolerated injection well. Lani Edmond LPN documented in this encounterSelect [facility] [place] History of Present illness Narrative* Lani Edmond LPN - 06/06/2021 2:50 PM EDT Patient presents for B-12 injection. Denies any problems at this time. Patient instructed on any SEof medication, verbalized understanding and agreed to proceed with treatment. Tolerated injection well. Lani Edmond LPN documented in this encounterSelect [facility] [place] History of Present illness Narrative* Jeff Simeon, - 05/31/2021 7:23 AM EDT Patient presents with: Follow Up: 3 months HPI: Nguyen Queen is a 76 year old female who presents to the office today for review of health conditions. Concerns today: had an episode of food allergy reaction in Nov, symptoms are improved. Was seen at [facility] and given rxfor prednisone and zofran. [...] with sugars in the <200 range. Patient's [id number] was Hemoglobin A1C (%) Date Value 2021 [...] WHEN PFRMD 08/25/2003 adenomatous polyp and diverticulosis. [facility] COLONOSCOPY FLX DX W/COLLJ SPEC WHEN PFRMD 09/28/2006 No polyps found. 5 yr recall. [facility]vara. [facility] COLONOSCOPY FLX DX W/COLLJ SPEC WHEN PFRMD 02/26/2018 Colonoscopy ESOPHAGOGASTRODUODENOSCOPY TRANSORAL DIAGNOSTIC 08/31/2003 Unremarkable, negative biopsies. [facility] ESOPHAGOGASTRODUODENOSCOPY TRANSORAL DIAGNOSTIC 02/26/2018 EGD TONSILLECTOMY HX Social History Tobacco Use Smoking status: Never Smoker Smokeless tobacco: Never Used Substance Use Topics Alcohol use: No Drug use: No FAMILY HISTORY Adopted: Yes Allergies: ALLERGIES Allergen Reactions Benadryl [Diphenhyd* Swelling Penicillins Shortness of Breath Naunptg-Csu-Ytb Red* Contraindication-Medical Surgical History of liver failure [...] with the plan. Jeff Simeon DO [address] [place] [address] documented in this encounterSelect Medical [facility] [place]-13-2022 Miscellaneous Notes* Telephone Encounter - Nell Bhakta Ma - 05/25/2021 5:34 PM EDT Patient notified and verbalized understanding. Pt asking for Caroline results. Faxed request to [facility] & will place results on PCP [...] Simeon. Karson Woodward APRN.CNP documented in this encounterSelect [facility] [place]20[place] Miscellaneous Notes* Telephone Encounter - Pebbles Molina LPN - 05/18/2021 2:34 PM EDT Order faxed to [facility]. Pebbles Molina LPN * Telephone Encounter - Jahaira Harrison APRN.CNP - 05/18/2021 12:42 PM EDT Order signed. Please fax. Jahaira Harrsion APRN.CNP * Telephone Encounter - Pebbles Molina LPN - 05/18/2021 12:35 PM EDT Please file orders. Needs faxed to [facility]. Pebbles Molina LPN documented in this encounterSelect [facility] [place]-[facility] History of Present illness Narrative* Kurtis Montes [...] 25, 2020 3:55 PM documented in this encounterSelect [facility] [place] History of Past illness Narrative* Problem Noted Date Resolved Date Obesity, Class III, BMI >= 40 02/26/2018 Diabetes mellitus type 2, controlled, without co mplications 05/17/2015 08/23/2020 documented as of this encounter (statuses as of 05/18/2021) [facility] [place] History of Past illness Narrative* Problem Noted Date Resolved Date Obesity, Class III, BMI >= 40 02/26/2018 Diabetes mellitus type 2, controlled, without co mplications 05/17/2015 08/23/2020 documented as of this encounter (statuses as of 05/31/2021) [facility] [place] History of Past illness Narrative* Problem Noted Date Resolved Date Obesity, Class III, BMI >= 40 02/26/2018 Diabetes mellitus type 2, controlled, without co mplications 05/17/2015 08/23/2020 documented as of this encounter (statuses as of 06/06/2021) [facility] [place] History of Past illness Narrative* Problem Noted Date Resolved Date Obesity, Class III, BMI >= 40 02/26/2018 Diabetes mellitus type 2, controlled, without co mplications 05/17/2015 08/23/2020 documented as of this encounter (statuses as of 06/15/2021) [facility] [place] History of Past illness Narrative* Problem Noted Date Resolved Date Obesity, Class III, BMI >= 40 02/26/2018 Diabetes mellitus type 2, controlled, without co mplications 05/17/2015 08/23/2020 documented as of this encounter (statuses as of 06/20/2021) [facility] [place] History of Past illness Narrative* Problem Noted Date Resolved Date Obesity, Class III, BMI >= 40 02/26/2018 Diabetes mellitus type 2, controlled, without co mplications 05/17/2015 08/23/2020 documented as of this encounter (statuses as of 07/04/2021) [facility] [place] History of Past illness Narrative* Problem Noted Date Resolved Date Obesity, Class III, BMI >= 40 02/26/2018 Diabetes mellitus type 2, controlled, without co mplications 05/17/2015 08/23/2020 documented as of this encounter (statuses as of 07/18/2021) [facility] [place] History of Past illness Narrative* Problem Noted Date Resolved Date Obesity, Class III, BMI >= 40 02/26/2018 Peripheral neuropathy 01/21/2018 08/22/2021 Diabetes mellitus type 2, controlled, without co mplications 05/17/2015 08/23/2020 documented as of this encounter (statuses as of 10/20/2021) [facility] History of Past illness Narrative* Problem Noted Date Resolved Date Obesity, Class III, BMI >= 40 02/26/2018 Peripheral neuropathy 01/21/2018 08/22/2021 Diabetes mellitus type 2, controlled, without co mplications 05/17/2015 08/23/2020 documented as of this encounter (statuses as of 11/15/2021) [facility]2019 History of Past illness Narrative* Problem Noted Date Resolved Date Obesity, Class III, BMI >= 40 02/26/2018 Peripheral neuropathy 01/21/2018 08/22/2021 Diabetes mellitus type 2, controlled, without co mplications 05/17/2015 08/23/2020 documented as of this encounter (statuses as of 12/20/2021) [facility]2019 History of Past illness Narrative* Problem Noted Date Resolved Date Obesity, Class III, BMI >= 40 02/26/2018 Peripheral neuropathy 01/21/2018 08/22/2021 Diabetes mellitus type 2, controlled, without co mplications 05/17/2015 08/23/2020 documented as of this encounter (statuses as of 01/17/2022) [facility] History of Past illness Narrative* Problem Noted Date Resolved Date Obesity, Class III, BMI >= 40 02/26/2018 Peripheral neuropathy 01/21/2018 08/22/2021 Diabetes mellitus type 2, controlled, without co mplications 05/17/2015 08/23/2020 documented as of this encounter (statuses as of 02/21/2022) [facility]2019 History of Past illness Narrative* Problem Noted Date Resolved Date Obesity, Class III, BMI >= 40 02/26/2018 Peripheral neuropathy 01/21/2018 08/22/2021 Diabetes mellitus type 2, controlled, without co mplications 05/17/2015 08/23/2020 documented as of this encounter (statuses as of 03/20/2022) [facility]2019 History of Past illness Narrative* Problem Noted Date Resolved Date Obesity, Class III, BMI >= 40 02/26/2018 Peripheral neuropathy 01/21/2018 08/22/2021 Diabetes mellitus type 2, controlled, without co mplications 05/17/2015 08/23/2020 documented as of this encounter (statuses as of 03/22/2022) [facility]2019 History of Past illness Narrative* Problem Noted Date Resolved Date Obesity, Class III, BMI >= 40 02/26/2018 Peripheral neuropathy 01/21/2018 08/22/2021 Diabetes mellitus type 2, controlled, without co mplications 05/17/2015 08/23/2020 documented as of this encounter (statuses as of 03/25/2022) [facility]2019 History of Past illness Narrative* Problem Noted Date Resolved Date Obesity, Class III, BMI >= 40 02/26/2018 Peripheral neuropathy 01/21/2018 08/22/2021 Diabetes mellitus type 2, controlled, without co mplications 05/17/2015 08/23/2020 documented as of this encounter (statuses as of 04/03/2022) [facility] History of Past illness Narrative* Problem Noted Date Resolved Date Obesity, Class III, BMI >= 40 02/26/2018 Peripheral neuropathy 01/21/2018 08/22/2021 Diabetes mellitus type 2, controlled, without co mplications 05/17/2015 08/23/2020 documented as of this encounter (statuses as of 04/18/2022) [facility]2019 History of Past illness Narrative* Problem Noted Date Resolved Date Obesity, Class III, BMI >= 40 02/26/2018 Peripheral neuropathy 01/21/2018 08/22/2021 Diabetes mellitus type 2, controlled, without co mplications 05/17/2015 08/23/2020 documented as of this encounter (statuses as of 04/21/2022) [facility]2019 History of Past illness Narrative* Problem Noted Date Resolved Date Obesity, Class III, BMI >= 40 02/26/2018 Peripheral neuropathy 01/21/2018 08/22/2021 Diabetes mellitus type 2, controlled, without co mplications 05/17/2015 08/23/2020 documented as of this encounter (statuses as of 05/15/2022) [facility]2019 History of Past illness Narrative* Problem Noted Date Resolved Date Obesity, Class III, BMI >= 40 02/26/2018 Peripheral neuropathy 01/21/2018 08/22/2021 Diabetes mellitus type 2, controlled, without co mplications 05/17/2015 08/23/2020 documented as of this encounter (statuses as of 05/26/2022) [facility]2019 History of Past illness Narrative* Problem Noted Date Resolved Date Obesity, Class III, BMI >= 40 02/26/2018 Peripheral neuropathy 01/21/2018 08/22/2021 Diabetes mellitus type 2, controlled, without co mplications 05/17/2015 08/23/2020 documented as of this encounter (statuses as of 06/12/2022) [facility]2019 History of Past illness Narrative* Problem Noted Date Resolved Date Obesity, Class III, BMI >= 40 02/26/2018 Peripheral neuropathy 01/21/2018 08/22/2021 Diabetes mellitus type 2, controlled, without co mplications 05/17/2015 08/23/2020 documented as of this encounter (statuses as of 07/11/2022) [facility]2019 History of Past illness Narrative* Problem Noted Date Resolved Date Obesity, Class III, BMI >= 40 02/26/2018 Peripheral neuropathy 01/21/2018 08/22/2021 Diabetes mellitus type 2, controlled, without co mplications 05/17/2015 08/23/2020 documented as of this encounter (statuses as of 08/07/2022) [facility] History of Past illness Narrative* Problem Noted [...] of this encounter (statuses as of 09/19/2022) [facility]2019 History of Past illness Narrative* Problem Noted [...] of this encounter (statuses as of 10/02/2022) [facility] History of Past illness Narrative* Problem Noted [...] of this encounter (statuses as of 10/05/2022) [facility] History of Past illness Narrative* Problem Noted [...] of this encounter (statuses as of 10/17/2022) [facility] History of Past illness Narrative* Problem Noted [...] of this encounter (statuses as of 11/03/2022) [facility]2019 History of Past illness Narrative* Problem Noted [...] of this encounter (statuses as of 11/17/2022) [facility] History of Past illness Narrative* Problem Noted [...] of this encounter (statuses as of 11/30/2022) [facility]2019 History of Past illness Narrative* Problem Noted [...] of this encounter (statuses as of 12/13/2022) [facility] History of Past illness Narrative* Problem Noted [...] of this encounter (statuses as of 12/28/2022) [facility] History of Past illness Narrative* Problem Noted [...] of this encounter (statuses as of 01/25/2023) [facility] Author Richard Mckenzie [facility] March 11, 2023 12:33pm Note Date/Time March 11, 2023 1 2:29pm [facility] Medical Records Department [address] [place] [address] Discharge Summary 03/11/23 1226 MR#: [id number] Acct: [id number] Name: NGUYEN QUEEN Rep #:[id number] : 1945 77 From: Richard landa MD PCP: Dr. Jeff Simeon DO Status:AD M IN Location: [facility] [id number] Providers Date of Admission: 03/05/23 Primary [...] for her follow-up. Richard Mckenzie MD Pager: [facility] [address] [place] [address], [address] [place] [address] Office: Medications at Discharge Home Medications ondansetron [...] (Auto) 65.5, Lymph % (Auto) 14.9 L, [place] % (Auto) 7.2, Eos % (Auto) 8.1 [...] to schedule 1 week follow up appointment. [phone] Meaningful Use Info Meaningful Use Diagnoses (Choose [...] W/Diff, Automated (Routine) Timeframe: 1 Week Facility: [facility] - Location: Laboratory Ordered By: Dr. Richard Mckenzie Referrals / Follow Up: Jeff Simeon DO [Primary Care Provider] - Disposition Disposition (needs filled in before D/C Order can be placed): Home, Self Care 03/11/23 2503 <Electronically signed by Richard Mckenzie MD> Cosigner Signature (if applicable): CC: Dr. Richard Mckenzie MD; Dr. Jeff Simeon DO~ Signed [facility] Work Phone: Evaluation note* Diagnosis Encounter for screening mammogram for malignant neoplasm of breast- Primary Other screening mammogram documented [facility] this encounter [facility] noteNo assessment information availableWKing[facility] [place] Work Phone: Evaluation note* Diagnosis Controlled [...] Other B-complex deficiencies [facility] Vitamin B12 deficiency- Primary Other B-complex deficiencies [facility] Diagnosis Vitamin B12 deficiency- Primary Other B-complex deficiencies [facility] Diagnosis Vitamin B12 deficiency- Primary Other B-complex deficiencies [facility] Diagnosis Uncontrolled type 2 diabetes mellitus with hyperglycemia (HCC)- Primary Vitamin B12 deficiency Other B-complex deficiencies Controlled type 2 diabetes mellitus without complication, without long-term current use of insulin (HCC) Hypothyroidism, acquired Unspecified hypothyroidism Other vitamin B12 deficiency anemia Iron deficiency Iron deficiency anemia, unspecified Vitamin D deficiency Unspecified vitamin D deficiency [facility] Diagnosis Vitamin B12 deficiency- Primary Other B-complex deficiencies [facility]* Diagnosis Controlled type 2 diabetes mellitus without complication, without long-term current use of insulin ([facility])- Primary Encounter for screening mammogram for malignant neoplasm of breast Other screening mammogram Hypothyroidism, acquired Unspecified hypothyroidism Vitamin B12 deficiency Other B-complex deficiencies Other vitamin B12 deficiency anemia Vitamin D deficiency Unspecified vitamin D deficiency Iron deficiency Iron deficiency anemia, unspecified Malabsorption syndrome Unspecified intestinal malabsorption Hypertriglyceridemia Pure hyperglyceridemia [facility] Diagnosis Vitamin B12 deficiency- Primary [...] nonalcoholic liver disease documented [facility] this [facility]* Diagnosis Vitamin B12 deficiency- Primary Other B-complex deficiencies documented [facility]* Diagnosis Onset Date Resolution Status Retrocecal abscess acute Right lower quadrant abdominal pain acute [facility] Work Phone: Evaluation note* Diagnosis 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 S/P colectomy Other postprocedural status Nausea Nausea alone [facility] Diagnosis Onset Date Resolution Status Retrocecal abscess resolved Right lower quadrant abdominal pain resolved Colon cancer, ascending acut e Status post right hemicolectomy acute Colon cancer, ascending acut e Ulcerative colitis acute Colon cancer, ascending acut e Colon cancer, ascending acut e Ulcerative colitis acute Colon cancer, ascending acut e Status post right hemicolectomy acute Ulcerative colitis acute [facility] Work Phone: Evaluation note* Diagnosis Vitamin B12 deficiency- Primary Other B-complex deficiencies documented in this encounter [facility]* Diagnosis Vitamin B12 deficiency- Primary Other B-complex deficiencies documented in this encounter [facility]* Diagnosis Vitamin B12 deficiency- Primary Other B-complex deficiencies Controlled type 2 diabetes mellitus without complication, without long-term current use of insulin (HCC) Hypothyroidism, acquired Unspecified hypothyroidism Iron deficiency Iron deficiency anemia, unspecified Vitamin D deficiency Unspecified vitamin D deficiency Other vitamin B12 deficiency anemia documented in this encounter [facility]* Diagnosis Essential hypertension with goal blood pressure less than 130/80- Primary 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) Hypertriglyceridemia Pure hyperglyceridemia Vitamin B12 deficiency Other B-complex deficiencies Malabsorption syndrome Unspecified intestinal malabsorption Fatty liver Other chronic nonalcoholic liver disease Hypothyroidism, acquired Unspecified hypothyroidism Colon neoplasm Neoplasm of unspecified nature of digestive system S/P colectomy Other postprocedural status documented in this encounter [facility]* Diagnosis Bilateral impacted cerumen- Primary Impacted cerumen documented in this encounter [facility]* Diagnosis Vitamin B12 deficiency- Primary Other B-complex deficiencies documented in this encounter [facility]* Diagnosis Vitamin B12 deficiency- Primary Other B-complex deficiencies [facility] Diagnosis Vitamin B12 deficiency- Primary Other B-complex deficiencies documented in this encounter [facility]* Diagnosis Vitamin B12 deficiency- Primary Other B-complex deficiencies documented in this encounter [facility]* Diagnosis Essential hypertension with goal blood pressure less than 130/80 Hypertriglyceridemia Pure hyperglyceridemia Hypothyroidism, acquired Unspecified hypothyroidism Controlled type 2 diabetes mellitus without complication, without long-term current use of insulin (HCC) Other iron deficiency anemia Vitamin B12 deficiency- Primary Other B-complex deficiencies documented in this encounter [facility]* Diagnosis Essential hypertension with goal blood pressure less than 130/80 Hypertriglyceridemia Pure hyperglyceridemia Hypothyroidism, acquired Unspecified hypothyroidism Controlled type 2 diabetes mellitus without complication, without long-term current use of insulin (HCC) Other iron deficiency anemia Vitamin B12 deficiency- Primary Other B-complex deficiencies documented in this encounter [facility] Diagnosis Essential hypertension with goal blood [...] deficiency anemia, unspecified documented in this encounter [facility]* Diagnosis Essential hypertension with goal blood pressure less than 130/80 Hypertriglyceridemia Pure hyperglyceridemia Hypothyroidism, acquired Unspecified hypothyroidism Controlled type 2 diabetes mellitus without complication, without long-term current use of insulin (HCC) Other iron deficiency anemia Vitamin B12 deficiency- Primary Other B-complex deficiencies documented in this encounter [facility]* Diagnosis Essential hypertension with goal blood pressure less than 130/80 Hypertriglyceridemia Pure hyperglyceridemia Hypothyroidism, acquired Unspecified hypothyroidism Controlled type 2 diabetes mellitus without complication, without long-term current use of insulin (HCC) Other iron deficiency anemia Bilateral lower extremity edema Edema documented in this encounter [facility]* Diagnosis Essential hypertension with goal blood pressure less than 130/80 Hypertriglyceridemia Pure hyperglyceridemia Hypothyroidism, acquired Unspecified hypothyroidism Controlled type 2 diabetes mellitus without complication, without long-term current use of insulin (HCC) Other iron deficiency anemia Hypokalemia- Primary Hypopotassemia documented in this encounter [facility]* Diagnosis Chronic pain of right ankle Bilateral hip pain Pain in joint, pelvic region and thigh Chronic midline low back pain without sciatica Essential hypertension with goal blood pressure less than 130/80 Hypertriglyceridemia Pure hyperglyceridemia Hypothyroidism, acquired Unspecified hypothyroidism Controlled type 2 diabetes mellitus without complication, without long-term current use of insulin (HCC) Other iron deficiency anemia documented [facility]* Diagnosis Essential hypertension with goal blood [...] Abnormality of gait documented in this encounter [facility]* Diagnosis Essential hypertension with goal blood [...] vitamin D deficiency documented in this encounter [facility]* Diagnosis Essential hypertension with goal blood [...] Other postprocedural status documented in this encounter [facility]* Diagnosis Essential hypertension with goal blood [...] Swelling of limb documented in this encounter [facility] note* Diagnosis Essential hypertension with goal blood pressure less than 130/80 Hypertriglyceridemia Pure hyperglyceridemia Hypothyroidism, acquired Unspecified hypothyroidism Controlled type 2 diabetes mellitus without complication, without long-term current use of insulin (HCC) Other iron deficiency anemia Left leg swelling Swelling of limb Right leg swelling Swelling of limb [facility]* Diagnosis Essential hypertension with goal blood pressure less than 130/80 Hypertriglyceridemia Pure hyperglyceridemia Hypothyroidism, acquired Unspecified hypothyroidism Controlled type 2 diabetes mellitus without complication, without long-term current use of insulin (HCC) Other iron deficiency anemia Pernicious anemia- Primary documented in this encounter [facility] note* Diagnosis Onset Date Resolution Status Admit Date Colon cancer, ascending chronic S eptember 2024 1:37pm Elevated CEA chronic October 232024 1:37pm Anemia resolved October 1:37pm [facility] Work Phone: History and physical note Author Santosh Ballard [facility] March 05, 2023 10:59pm Note Date/Time March 05, 2023 1 0:59pm [facility] Medical Records Department [address] [place] [address] History & Physical Exam 03/05/233 MR#: [id number] Acct: [id number] Name: NGUYEN QUEEN Rep #:[id number] : 1945 77 From: Santosh Martinez PCP: Dr. Jeff Simeon, DO Status:RE G ER Location: ED HPI - General General Date of Admission: 03/05/23 Date of Service: 03/05/23 Chief Complaint: Right lower quadrant abdominal pain HPI Narrative NGUYEN QUEEN, is a 77 F, with history of well-controlled diabetes mellitus, who presents to [facility] with complaints of right lower quadrant abdominal [...] recently discovered that she is 50% Ashkenazi Zoroastrianism and she attributes many of her allergies (stating that she is allergic to even air [she] breathes to this background. [facility] Medical History (Updated 03/05/23 @ [...] Sl. Cloudy, Urine pH 5.0, Ur Specific [place] 1.025, Urine Protein 30 H, Urine Glucose [...] 83.7 H, Lymph % (Auto) 7.9 L, Gilmer % (Auto) 6.6, Eos % (Auto) 0.8, [...] that we proceed with treatment here at [facility] or otherwise seek transfer to a [facility] facility where she apparently has more extensive medical records. She confirms her intent to see her care through here [facility] and I therefore recommend that we proceed [...] the ORtomorrow. Charges/Coding Visit Charges Inpatient E&M: 59590 Init Hosp L2 03/05/23 2250 <Electronically signed by Santosh Ballard MD> Cosigner Signature (if applicable): CC: Dr. Jeff Simeon DO; Dr. Santosh Ballard MD~ Signed [facility] Work Phone: Hospital Discharge instructionsAmbulatory Orders* Gastroenterology Location: None Selected * Oncology Location: None Selected [facility] Work Phone: Progress note Author Richard Mckenzie [facility] March 11, 2023 12:26pm Note Date/Time March 11, 2023 1 2:26pm [facility] Medical Records Department [address] [place] [address] Progress Note - Surgery 03/11/23 1225 MR#: [id number] Acct: [id number] Name: NGUYEN QUEEN Rep #:[id number] : 1945 77 From: Richard landa MD PCP: Dr. Jeff Simeon DO Status:AD M IN Location: [facility] [id number] Subjective Subjective Patient reports he tolerated [...] (Auto) 65.5, Lymph % (Auto) 14.9 L, [place] % (Auto) 7.2, Eos % (Auto) 8.1 [...] for her follow-up. Richard Mckenzie MD Pager: [facility] [address] [place] [address], [address] [place] [address] Office: 03/11/23 1226 <Electronically signed by Richard Mckenzie MD> Cosigner Signature (if applicable): CC: ~ Signed [facility] Work Phone: Progress note Author Jameson Snell [facility] March 11, 2023 12:49pm Note Date/Time March 11, 2023 1 2:49pm [facility] Medical Records Department [address] [place] [address] Progress Note - Hospitalist 03/11/23 1239 MR#: [id number] Acct: [id number] Name: NGUYEN QUEEN Rep #:[id number] : 1945 77 From: Jameson Martinez PCP: Dr. Jeff Simeon, DO Status:AD M IN Location: [facility] [id number] Reason for Visit Reason for Visit: [...] (Auto) 65.5, Lymph % (Auto) 14.9 L, [place] % (Auto) 7.2, Eos % (Auto) 8.1 [...] to open laparotomy, right hemicolectomy with stapled lvex-oh-lrek ileocolic anastomosis on 03/07/2023. Intraoperative findings were [...] antibiotics. Recommend 5 more days of antibiotics. [id number] probioticsfor 1 week while patient is taking [...] is controlled. At home, patient is on [id number] mg daily. IV hydralazine as needed during [...] (Auto) 65.5, Lymph % (Auto) 14.9 L, Gilmer % (Auto) 7.2, Eos % (Auto) 8.1 [...] sugar sweets Charges/Coding Visit Charges Inpatient E&M: 70335 Subs Hosp L2 03/11/23 1249 <Electronically signed by Jameson Snell MD> Cosigner Signature (if applicable): CC: ~ Signed [facility] Work Phone: Progress note Author Jarrell Crystal [facility] Note Date/Time November 04, 2024 11:56am [facility] [facility] [address] 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 Patient saw oncologist [...] Cosigner Signature: Date (if applicable) CC: ~ [email or web address] Work Phone: Reason for referral (narrative)* Diagnostic Procedure Only (Routine) - Pending Review Specialty Diagnoses / Procedures Referred By Angela t Referred To Contact [facility] Diagnoses Encounter for screening mammogram for malignant neoplasm of breast Procedures CAROLINE SCREENING W FLOR SCREENING DIGITAL BREAST TOMOSYNTHESIS BI SCREENING MAMMOGRAPHY BI 2-VIEW BREAST INC CAD Jahaira Harrison, ENERGY TECHNICIAN.CORE FINISHER [address] [place] [address] [facility] [address] [place] [address] Referral ID Status Reason Start Date Expiration Date Visits Requested Visits Authorized [id number] Pending Review Auto-Generat ed Referral 05/18/2021 06/17/2022 1 1 [facility] for referral (narrative)* Diagnostic Procedure Only (Routine) - Pending Review Specialty Diagnoses / Procedures Referred By Angela carey Referred To Contact [facility] Diagnoses Encounter for screening mammogram for malignant neoplasm of breast Procedures CAROLINE SCREENING SCREENING MAMMOGRAPHY BI 2-VIEW BREAST INC CAD Jeff Simeon DO [address] [place] [address] [facility] [address] [place] [address] Referral ID Status Reason Start Date Expiration Date Visits Requested Visits Authorized [id number] Pending Review Auto-Generat ed Referral 02/20/2022 03/22/2023 1 1 [facility] for referral (narrative)No reason for referral information [facility] Work Phone: Reason for visit Narrative* Diagnostic Procedure Only (Routine) - Closed Specialty Diagnoses / Procedures Referred By Angela carey Referred To Contact Radiology / [facility] Diagnoses xray main lobby Procedures XR GENERAL 7 Jeff Simeon DO [address] [place] [address] [facility] [address] [place] [address] Referral ID Status Reason Start Date Expiration Date Visits Re quested Visits Authorized [id number] Closed 08/25/2020 02/11/2021 1 1 [facility] for visit Narrative* Diagnostic Procedure Only (Urgent) - Closed Specialty Diagnoses / Procedures Referred By Angela carey Referred To Contact [facility] Diagnoses Left leg swelling Right leg swelling Procedures US DVT LOWER BILATERAL DUP-SCAN XTR VEINS COMPLETE BILATERAL STUDY Jeff Simeon DO [address] [place] [address] Phone: tel: fax: [place] [phone] Referral ID Status Reason Start Date Expiration Date V isits Requested Visits Authorized [id number] Closed Auto-Generate d Referral 2024 06/22/2025 1 1 [facility] Summary Purpose Family History No Family History Records FoundNo Family History Records FoundNo Family History Records FoundNo Family History Records Found Advance Directives No Advanced Directives Records FoundDocuments on File Type Date Recorded Patient [employer] Advance Directive(s) 04/23/2019 11:29 AM Advance Directive(s) 02/26/2018 8:33 AM Advance Directive(s) 02/22/2018 7:13 PM Advance Directive Response Recorded Date/ Time Living Will Yes December 21 11:16pm Power of Director [employer] Yes December 21, 2020 11:16pm Documents on File Type Date Recorded Patient [employer] Advance Directive(s) 04/23/2019 11:29 AM Advance Directive(s) 02/26/2018 8:33 AM Advance Directive(s) 02/22/2018 7:13 PM Documents on File Type Date Recorded Patient [employer] anation Advance Directive(s) 04/23/2019 11:29 AM Documents on File Type Date Recorded Patient [employer] Expl anation Advance Directive(s) 04/23/2019 11:29 AM Advance Directive Response Recorded Date/ Time Living Will No March 05 7:37pm Power of Director [employer] No March 05, 2023 7:37pm Advance Directive Response Recorded Date/ Time Name of Medical Power of Director [employer] Alissa gomez (Niece) March 05, 2023 11:31pm Living Will Yes March 05 11:31pm Power of Director [employer] Yes March 05, 2023 11:31pm Advance Directive Response Recorded Date/ Time Name of Medical Power of Director [employer] Alissa Yingdavis patricia (Niece) March 06, 2023 12:31am Living Will Yes March 06 12:31am Power of Director [employer] Yes March 06, 2023 12:31am Advance Directive Response Recorded Date/ Time Living Will No October 15 8:05pm Do you have a Healthcare Power of Director [employer]? No October 16, 2023 8:05pm Living Will Yes March 06 12:31am Do you have a Healthcare Power of Director [employer]? Yes March 06, 2023 12:31am Advance Directive Response Recorded Date/ Time Living Will Yes March 06 12:31am Do you have a Healthcare Power of Director [employer]? Yes March 06, 2023 12:31am Chief Complaint [...] liver Procedures CONSULT TO GENERAL SURGERY OFFICE/OUTPATIENT [facility] HIGH MDM 60-74 MINUTES Jeff Simeon, DO [address] [place] [address] Referral ID Status Reason Start Date Expiration Date Visits Requested Visits Authorized [id number] Authorized PCP Requested Referral 03/21/2022 03/21/2023 1 1 Additional Source Comments INFORMATION SOURCE (unrecogn ized section and content) DATE CREATED AUTHOR 03/02/2018 [facility] DATE CREATED AUTHOR AUTHOR'S ORGANIZ ATION 04/10/2022 [facility] DATE CREATED AUTHOR AUTHOR'S ORGANIZ ATION 12/24/2024 [facility] DATE CREATED AUTHOR AUTHOR'S ORGANIZ ATION 12/24/2024 [facility] Source Comments (unrecognize d section and content) In the event this informatio n is protected by the Federal Confidentiality of Alcohol and Drug Abuse Patient Records regulations: The Federal rules restrict any use of the information to criminally investigate or prosecute any alcohol or drug abuse patient.[facility] the event this information is protected by the Federal Confidentiality of Alcohol and Drug Abuse Patient Records regulations: The Federal rules restrict any use of the information to criminally investigate or prosecute any alcohol or drug abuse patient.[facility]In the event this information is protected by the Federal Confidentiality of Alcohol and Drug Abuse Patient Records regulations: The Federal rules restrict any use of the information to criminally investigate or prosecute any alcohol or drug abuse patient.[facility]In the event this information is protected by the Federal Confidentiality of Alcohol and Drug Abuse Patient Records regulations: The Federal rules restrict any use of the information to criminally investigate or prosecute any alcohol or drug abuse patient.[facility]In the event this information is protected by the Federal Confidentiality of Alcohol and Drug Abuse Patient Records regulations: The Federal rules restrict any use of the information to criminally investigate or prosecute any alcohol or drug abuse patient.[facility]In the event this information is protected by the Federal Confidentiality of Alcohol and Drug Abuse Patient Records regulations: The Federal rules restrict any use of the information to criminally investigate or prosecute any alcohol or drug abuse patient.[facility]In the event this information is protected by the Federal Confidentiality of Alcohol and Drug Abuse Patient Records regulations: The Federal rules restrict any use of the information to criminally investigate or prosecute any alcohol or drug abuse patient.[facility]In the event this information is protected by the Federal Confidentiality of Alcohol and Drug Abuse Patient Records regulations: The Federal rules restrict any use of the information to criminally investigate or prosecute any alcohol or drug abuse patient.[facility]In the event this information is protected by the Federal Confidentiality of Alcohol and Drug Abuse Patient Records regulations: The Federal rules restrict any use of the information to criminally investigate or prosecute any alcohol or drug abuse patient.[facility]In the event this information is protected by the Federal Confidentiality of Alcohol and Drug Abuse Patient Records regulations: The Federal rules restrict any use of the information to criminally investigate or prosecute any alcohol or drug abuse patient.[facility]In the event this information is protected by the Federal Confidentiality of Alcohol and Drug Abuse Patient Records regulations: The Federal rules restrict any use of the information to criminally investigate or prosecute any alcohol or drug abuse patient.[facility]In the event this information is protected by the Federal Confidentiality of Alcohol and Drug Abuse Patient Records regulations: The Federal rules restrict any use of the information to criminally investigate or prosecute any alcohol or drug abuse patient.[facility]In the event this information is protected by the Federal Confidentiality of Alcohol and Drug Abuse Patient Records regulations: The Federal rules restrict any use of the information to criminally investigate or prosecute any alcohol or drug abuse patient.[facility]In the event this information is protected by the Federal Confidentiality of Alcohol and Drug Abuse Patient Records regulations: The Federal rules restrict any use of the information to criminally investigate or prosecute any alcohol or drug abuse patient.[facility] the event this information is protected by the Federal Confidentiality of Alcohol and Drug Abuse Patient Records regulations: The Federal rules restrict any use of the information to criminally investigate or prosecute any alcohol or drug abuse patient.[facility]In the event this information is protected by the Federal Confidentiality of Alcohol and Drug Abuse Patient Records regulations: The Federal rules restrict any use of the information to criminally investigate or prosecute any alcohol or drug abuse patient.[facility] [place]onIn the event this information is protected by [...] or prosecute any alcohol or drug abuse patient.[facility] [place]In the event this information is protected by the Federal Confidentiality of Alcohol and Drug Abuse Patient Records regulations: The Federal rules restrict any use of the information to criminally investigate or prosecute any alcohol or drug abuse patient.[facility]In the event this information is protected by the Federal Confidentiality of Alcohol and Drug Abuse Patient Records regulations: The Federal rules restrict any use of the information to criminally investigate or prosecute any alcohol or drug abuse patient.[facility] [place]In the event this information is protected by the Federal Confidentiality of Alcohol and Drug Abuse Patient Records regulations: The Federal rules restrict any use of the information to criminally investigate or prosecute any alcohol or drug abuse patient.[facility]In the event this information is protected by the Federal Confidentiality of Alcohol and Drug Abuse Patient Records regulations: The Federal rules restrict any use of the information to criminally investigate or prosecute any alcohol or drug abuse patient.[facility] [place]In the event this information is protected by the Federal Confidentiality of Alcohol and Drug Abuse Patient Records regulations: The Federal rules restrict any use of the information to criminally investigate or prosecute any alcohol or drug abuse patient.[facility] [place]In the event this information is protected by the Federal Confidentiality of Alcohol and Drug Abuse Patient Records regulations: The Federal rules restrict any use of the information to criminally investigate or prosecute any alcohol or drug abuse patient.[facility] [place]In the event this information is protected by the Federal Confidentiality of Alcohol and Drug Abuse Patient Records regulations: The Federal rules restrict any use of the information to criminally investigate or prosecute any alcohol or drug abuse patient.[facility] [place]In the event this information is protected by the Federal Confidentiality of Alcohol and Drug Abuse Patient Records regulations: The Federal rules restrict any use of the information to criminally investigate or prosecute any alcohol or drug abuse patient.[facility] [place]In the event this information is protected by the Federal Confidentiality of Alcohol and Drug Abuse Patient Records regulations: The Federal rules restrict any use of the information to criminally investigate or prosecute any alcohol or drug abuse patient.[facility] [place]In the event this information is protected by the Federal Confidentiality of Alcohol and Drug Abuse Patient Records regulations: The Federal rules restrict any use of the information to criminally investigate or prosecute any alcohol or drug abuse patient.[facility] [place]In the event this information is protected by the Federal Confidentiality of Alcohol and Drug Abuse Patient Records regulations: The Federal rules restrict any use of the information to criminally investigate or prosecute any alcohol or drug abuse patient.[facility]In the event this information is protected by the Federal Confidentiality of Alcohol and Drug Abuse Patient Records regulations: The Federal rules restrict any use of the information to criminally investigate or prosecute any alcohol or drug abuse patient.[facility]In the event this information is protected by the Federal Confidentiality of Alcohol and Drug Abuse Patient Records regulations: The Federal rules restrict any use of the information to criminally investigate or prosecute any alcohol or drug abuse patient.[facility]In the event this information is protected by the Federal Confidentiality of Alcohol and Drug Abuse Patient Records regulations: The Federal rules restrict any use of the information to criminally investigate or prosecute any alcohol or drug abuse patient.[facility] [place]In the event this information is protected by the Federal Confidentiality of Alcohol and Drug Abuse Patient Records regulations: The Federal rules restrict any use of the information to criminally investigate or prosecute any alcohol or drug abuse patient.[facility] [place]In the event this information is protected by the Federal Confidentiality of Alcohol and Drug Abuse Patient Records regulations: The Federal rules restrict any use of the information to criminally investigate or prosecute any alcohol or drug abuse patient.[facility] [place]In the event this information is protected by the Federal Confidentiality of Alcohol and Drug Abuse Patient Records regulations: The Federal rules restrict any use of the information to criminally investigate or prosecute any alcohol or drug abuse patient.[facility] [place]In the event this information is protected by the Federal Confidentiality of Alcohol and Drug Abuse Patient Records regulations: The Federal rules restrict any use of the information to criminally investigate or prosecute any alcohol or drug abuse patient.[facility] [place]In the event this information is protected by the Federal Confidentiality of Alcohol and Drug Abuse Patient Records regulations: The Federal rules restrict any use of the information to criminally investigate or prosecute any alcohol or drug abuse patient.[facility] [place]In the event this information is protected by the Federal Confidentiality of Alcohol and Drug Abuse Patient Records regulations: The Federal rules restrict any use of the information to criminally investigate or prosecute any alcohol or drug abuse patient.[facility] [place]In the event this information is protected by the Federal Confidentiality of Alcohol and Drug Abuse Patient Records regulations: The Federal rules restrict any use of the information to criminally investigate or prosecute any alcohol or drug abuse patient.[facility] [place]In the event this information is protected by the Federal Confidentiality of Alcohol and Drug Abuse Patient Records regulations: The Federal rules restrict any use of the information to criminally investigate or prosecute any alcohol or drug abuse patient.[facility] [place]In the event this information is protected by the Federal Confidentiality of Alcohol and Drug Abuse Patient Records regulations: The Federal rules restrict any use of the information to criminally investigate or prosecute any alcohol or drug abuse patient.[facility] [place]In the event this information is protected by the Federal Confidentiality of Alcohol and Drug Abuse Patient Records regulations: The Federal rules restrict any use of the information to criminally investigate or prosecute any alcohol or drug abuse patient.[facility] [place]In the event this information is protected by the Federal Confidentiality of Alcohol and Drug Abuse Patient Records regulations: The Federal rules restrict any use of the information to criminally investigate or prosecute any alcohol or drug abuse patient.[facility] [place]In the event this information is protected by the Federal Confidentiality of Alcohol and Drug Abuse Patient Records regulations: The Federal rules restrict any use of the information to criminally investigate or prosecute any alcohol or drug abuse patient.[facility] [place]In the event this information is protected by the Federal Confidentiality of Alcohol and Drug Abuse Patient Records regulations: The Federal rules restrict any use of the information to criminally investigate or prosecute any alcohol or drug abuse patient.[facility] [place]In the event this information is protected by the Federal Confidentiality of Alcohol and Drug Abuse Patient Records regulations: The Federal rules restrict any use of the information to criminally investigate or prosecute any alcohol or drug abuse patient.[facility] [place]In the event this information is protected by the Federal Confidentiality of Alcohol and Drug Abuse Patient Records regulations: The Federal rules restrict any use of the information to criminally investigate or prosecute any alcohol or drug abuse patient.[facility] [place]In the event this information is protected by the Federal Confidentiality of Alcohol and Drug Abuse Patient Records regulations: The Federal rules restrict any use of the information to criminally investigate or prosecute any alcohol or drug abuse patient.[facility] [place]In the event this information is protected by the Federal Confidentiality of Alcohol and Drug Abuse Patient Records regulations: The Federal rules restrict any use of the information to criminally investigate or prosecute any alcohol or drug abuse patient.[facility] [place]In the event this information is protected by the Federal Confidentiality of Alcohol and Drug Abuse Patient Records regulations: The Federal rules restrict any use of the information to criminally investigate or prosecute any alcohol or drug abuse patient.[facility] [place]In the event this information is protected by the Federal Confidentiality of Alcohol and Drug Abuse Patient Records regulations: The Federal rules restrict any use of the information to criminally investigate or prosecute any alcohol or drug abuse patient.[facility] [place]In the event this information is protected by the Federal Confidentiality of Alcohol and Drug Abuse Patient Records regulations: The Federal rules restrict any use of the information to criminally investigate or prosecute any alcohol or drug abuse patient.[facility] [place]In the event this information is protected by the Federal Confidentiality of Alcohol and Drug Abuse Patient Records regulations: The Federal rules restrict any use of the information to criminally investigate or prosecute any alcohol or drug abuse patient.[facility] [place]In the event this information is protected by the Federal Confidentiality of Alcohol and Drug Abuse Patient Records regulations: The Federal rules restrict any use of the information to criminally investigate or prosecute any alcohol or drug abuse patient.[facility] [place]In the event this information is protected by the Federal Confidentiality of Alcohol and Drug Abuse Patient Records regulations: The Federal rules restrict any use of the information to criminally investigate or prosecute any alcohol or drug abuse patient.[facility] [place]In the event this information is protected by the Federal Confidentiality of Alcohol and Drug Abuse Patient Records regulations: The Federal rules restrict any use of the information to criminally investigate or prosecute any alcohol or drug abuse patient.[facility] [place]In the event this information is protected by the Federal Confidentiality of Alcohol and Drug Abuse Patient Records regulations: The Federal rules restrict any use of the information to criminally investigate or prosecute any alcohol or drug abuse patient.[facility] [place]onIn the event this information is protected by the Federal Confidentiality of Alcohol and Drug Abuse Patient Records regulations: The Federal rules restrict any use of the information to criminally investigate or prosecute any alcohol or drug abuse patient.[facility] [place]onIn the event this information is protected by the Federal Confidentiality of Alcohol and Drug Abuse Patient Records regulations: The Federal rules restrict any use of the information to criminally investigate or prosecute any alcohol or drug abuse patient.[facility] [place]onIn the event this information is protected by the Federal Confidentiality of Alcohol and Drug Abuse Patient Records regulations: The Federal rules restrict any use of the information to criminally investigate or prosecute any alcohol or drug abuse patient.[facility] [place]onIn the event this information is protected by the Federal Confidentiality of Alcohol and Drug Abuse Patient Records regulations: The Federal rules restrict any use of the information to criminally investigate or prosecute any alcohol or drug abuse patient.[facility] [place]onIn the event this information is protected by the Federal Confidentiality of Alcohol and Drug Abuse Patient Records regulations: The Federal rules restrict any use of the information to criminally investigate or prosecute any alcohol or drug abuse patient.[facility] [place]onIn the event this information is protected by the Federal Confidentiality of Alcohol and Drug Abuse Patient Records regulations: The Federal rules restrict any use of the information to criminally investigate or prosecute any alcohol or drug abuse patient.[facility] [place]onIn the event this information is protected by the Federal Confidentiality of Alcohol and Drug Abuse Patient Records regulations: The Federal rules restrict any use of the information to criminally investigate or prosecute any alcohol or drug abuse patient.[facility] the event this information is protected by the Federal Confidentiality of Alcohol and Drug Abuse Patient Records regulations: The Federal rules restrict any use of the information to criminally investigate or prosecute any alcohol or drug abuse patient.[facility] [place]onIn the event this information is protected by the Federal Confidentiality of Alcohol and Drug Abuse Patient Records regulations: The Federal rules restrict any use of the information to criminally investigate or prosecute any alcohol or drug abuse patient.[facility] [place]onIn the event this information is protected by [...] or prosecute any alcohol or drug abuse patient.[facility] [place]onIn the event this information is protected by the Federal Confidentiality of Alcohol and Drug Abuse Patient Records regulations: The Federal rules restrict any use of the information to criminally investigate or prosecute any alcohol or drug abuse patient.[facility] [place]onIn the event this information is protected by the Federal Confidentiality of Alcohol and Drug Abuse Patient Records regulations: The Federal rules restrict any use of the information to criminally investigate or prosecute any alcohol or drug abuse patient.[facility] [place]onIn the event this information is protected by the Federal Confidentiality of Alcohol and Drug Abuse Patient Records regulations: The Federal rules restrict any use of the information to criminally investigate or prosecute any alcohol or drug abuse patient.[facility] [place]onIn the event this information is protected by the Federal Confidentiality of Alcohol and Drug Abuse Patient Records regulations: The Federal rules restrict any use of the information to criminally investigate or prosecute any alcohol or drug abuse patient.[facility] [place]onIn the event this information is protected by the Federal Confidentiality of Alcohol and Drug Abuse Patient Records regulations: The Federal rules restrict any use of the information to criminally investigate or prosecute any alcohol or drug abuse patient.[facility] [place]onIn the event this information is protected by the Federal Confidentiality of Alcohol and Drug Abuse Patient Records regulations: The Federal rules restrict any use of the information to criminally investigate or prosecute any alcohol or drug abuse patient.[facility] [place]onIn the event this information is protected by the Federal Confidentiality of Alcohol and Drug Abuse Patient Records regulations: The Federal rules restrict any use of the information to criminally investigate or prosecute any alcohol or drug abuse patient.[facility] [place]onIn the event this information is protected by the Federal Confidentiality of Alcohol and Drug Abuse Patient Records regulations: The Federal rules restrict any use of the information to criminally investigate or prosecute any alcohol or drug abuse patient.[facility] [place] Reason for Visit (unrecogniz ed section and [...] MDM 60-74 MINUTES Jeff Simeon L, [address] [place] [address] Referral ID Status Reason Start Date Expiration Date V isits Requested Visits Authorized [id number] Closed PCP Requested Referral 03/21/2022 03/21/2023 1 1 Reason Comments Consult Reason Comments Surgical Follow Up Lap carter post op Specialty Diagnoses / Procedures Referred By Contac t Referred To Contact General Surgery / GENERAL SURGERY Diagnoses post op lap carter, wanted sooner appt Procedures OFFICE/OUTPATIENT ESTABLISHED HIGH MDM 40-54 MIN EST DDI PATIENT Nguyen Campos PA-C [address] [place] [address] Nguyen Campos PA-C [address] [place] [address] Referral ID Status Reason Start Date Expiration Date Visits Re quested Visits Authorized [id number] Closed 04/10/2022 02/11/2023 1 1 Reason Comments Post Op Follow Up 04/10/22 LAP CARTER Reason Onset Date Comments Transition Of Care 03/15/2023 TCM Initial O utreach: [facility] [place] 03/11/23, RLQ abdominal pain Reason Comments Hospital F/U Colon cancer Reason Comments Lab Orders Reason Comments Ear Problem Ear congestion x 1 w lummi Reason Onset Date Comments Refill Request 07/18/2023 [...] Care Teams (unrecognized sec tion and content) Sounding Device Operator Relationship Specialty Start Date End Date Jeff Simeon DO [address] [place] [address] PCP - General Family Practice 09/28/15 Sounding Device Operator Relationship Specialty Start Date End Date Jeff Simeon DO [address] [place] [address] PCP - General Family Practice 09/28/15 Sounding Device Operator Relationship Specialty Start Date End Date Jeff Simeon DO [address] [place] [address] PCP - General Family Practice 09/28/15 Sounding Device Operator Relationship Specialty Start Date End Date Jeff Simeon DO [address] [place] [address] PCP - General Family Practice 09/28/15 Sounding Device Operator Relationship Specialty Start Date End Date Jeff Simeon, DO [address] [place] [address] PCP - General Family Practice 09/28/15 Sounding Device Operator Relationship Specialty Start Date End Date Jeff Simeon, DO [address] [place] [address] PCP - General Family Practice 09/28/15 Sounding Device Operator Relationship Specialty Start Date End Date Jeff Simeon, DO [address] [place] [address] PCP - General Family Practice 09/28/15 Sounding Device Operator Relationship Specialty Start Date End Date Jeff Simeon, DO [address] [place] [address] PCP - General Family Practice 09/28/15 Sounding Device Operator Relationship Specialty Start Date End Date Jeff Simeon, DO [address] [place] [address] PCP - General Family Medicine 09/28/15 Sounding Device Operator Relationship Specialty Start Date End Date Jeff Simeon, DO [address] [place] [address] PCP - General Family Medicine 09/28/15 Sounding Device Operator Relationship Specialty Start Date End Date Jeff Simeon, DO [address] [place] [address] PCP - General Family Medicine 09/28/15 Sounding Device Operator Relationship Specialty Start Date End Date Jeff Simeon, DO [address] [place] [address] PCP - General Family Medicine 09/28/15 Sounding Device Operator Relationship Specialty Start Date End Date Jeff Simeon, DO [address] [place] [address] PCP - General Family Medicine 09/28/15 Sounding Device Operator Relationship Specialty Start Date End Date Jeff Simeon, DO [address] [place] [address] PCP - General Family Medicine 09/28/15 Sounding Device Operator Relationship Specialty Start Date End Date Jeff Simeon, DO [address] [place] [address] PCP - General Family Medicine 09/28/15 Sounding Device Operator Relationship Specialty Start Date End Date Jeff Simeon, DO [address] [place] [address] PCP - General Family Medicine 09/28/15 Sounding Device Operator Relationship Specialty Start Date End Date Jeff Simeon DO [address] [place] [address] PCP - General Family Medicine 09/28/15 Sounding Device Operator Relationship Specialty Start Date End Date Jeff Simeon DO [address] [place] [address] PCP - General Family Medicine 09/28/15 Team Status: Active Member Role Status Dates Dr. Jeff Simeon DO Family Provider Active Dr. Jeff Simeon DO Primary Care Provider Active Team Status: Inactive Member Role Status Dates Dr. Jeff Simeon DO Primary Care Pr ovider, Attending Provider, Referring Provider Active Sounding Device Operator Relationship Specialty Start Date End Date Jeff Simeon DO [address] [place] [address] PCP - General Family Medicine 09/28/15 Sounding Device Operator Relationship Specialty Start Date End Date Jeff Simeon DO [address] [place] [address] PCP - General Family Medicine 09/28/15 Sounding Device Operator Relationship Specialty Start Date End Date Jeff Simeon DO [address] [place] [address] PCP - General Family Medicine 09/28/15 Sounding Device Operator Relationship Specialty Start Date End Date Jeff Simeon DO [address] [place] [address] PCP - General Family Medicine 09/28/15 Sounding Device Operator Relationship Specialty Start Date End Date Jeff Simeon DO [address] [place] [address] PCP - General Family Medicine 09/28/15 Sounding Device Operator Relationship Specialty Start Date End Date Jeff Simeon DO [address] [place] [address] PCP - General Family Medicine 09/28/15 Sounding Device Operator Relationship Specialty Start Date End Date Jeff Simeon DO [address] [place] [address] PCP - General Family Medicine 09/28/15 Sounding Device Operator Relationship Specialty Start Date End Date Jeff Simeon DO [address] [place] [address] PCP - General Family Medicine 09/28/15 Sounding Device Operator Relationship Specialty Start Date End Date Jeff Simeon DO [address] [place] [address] PCP - General Family Medicine 09/28/15 Team [...] MD Other Provider Active Ruth Ann Lynn ATTORNEY, ATTORNEY-C Other Provider Active Ramses REDDY Other Provider [...] MD Other Provider Active Ruth Ann Lynn ATTORNEY, ATTORNEY-C Other Provider Active Ramses REDDY Other Provider [...] MD Other Provider Active Ruth Ann Lynn ATTORNEY, ATTORNEY-C Other Provider Active Ramses Victoria PA Other [...] MD Other Provider Active Ruth Ann Lynn ATTORNEY, ATTORNEY-C Other Provider Active Ramses Victoria PA Other [...] MD Other Provider Active Ruth Ann Lynn ATTORNEY, ATTORNEY-C Other Provider Active Ramses REDDY Other Provider [...] Emma Dubois MD Other Provider Active Dr. Mariesl Castellon MD Other Provider Active Dr. Sheri [...] MD Other Provider Active Ruth Ann Shane ATTORNEY, ATTORNEY-C Other Provider Active Ramses REDDY Other Provider [...] MD Other Provider Active Ruth Ann Lynn ATTORNEY, ATTORNEY-C Other Provider Active Ramses REDDY Other Provider Active Dr. Jameson Snell MD Other Provider Active Sounding Device Operator Relationship Specialty Start Date End Date Jeff Simeon DO [address] [place], [place] [address] PCP - General Family Medicine 09/28/15 Tiffany Lang, ROBERT [address] [place] [address] Primary Care Bareback Rider 03/15/23 Sounding Device Operator Relationship Specialty Start Date End Date Jeff Simeon DO [address] [place], [place] [address] PCP - General Family Medicine 09/28/15 Tiffany Lang, ROBERT [address] [place] [id number] Primary Care Bareback Rider 03/15/23 Sounding Device Operator Relationship Specialty Start Date End Date Jeff Simeon DO [address] [facility] [place] [address] PCP - General Family Medicine 09/28/15 Tiffany Lang, ROBERT [address] [place] [address] Primary Care Bareback Rider 03/15/23 Sounding Device Operator Relationship Specialty Start Date End Date Jeff Simeon DO [address] [facility] [place] [address] PCP - General Family Medicine 09/28/15 Tiffany Lang RN [address] [place] [id number] Primary Care Bareback Rider 03/15/23 Team Status: Inactive Member Role Status [...] Chavarria MD Attending Provider, Referring Provider Active Sounding Device Operator Relationship Specialty Start Date End Date Jeff Simeon DO [address] [facility] [place] [address] PCP - General Family Medicine 09/28/15 Sounding Device Operator Relationship Specialty Start Date End Date Jeff Simeon DO [address] [facility] [place] [address] PCP - General Family Medicine 09/28/15 Sounding Device Operator Relationship Specialty Start Date End Date Jeff Simeon DO [address] [facility] [place] [address] PCP - General Family Medicine 09/28/15 Sounding Device Operator Relationship Specialty Start Date End Date Jeff Simeon DO [address] [facility] [place] [address] PCP - General Family Medicine 09/28/15 Sounding Device Operator Relationship Specialty Start Date End Date Jeff Simeon DO [address] [facility] [place] [address] PCP - General Family Medicine 09/28/15 Sounding Device Operator Relationship Specialty Start Date End Date Jeff Simeon DO [address] [facility] [place] [address] PCP - General Family Medicine 09/28/15 Sounding Device Operator Relationship Specialty Start Date End Date Jeff Simeon DO [address] [facility] [place] [address] PCP - General Family Medicine 09/28/15 Sounding Device Operator Relationship Specialty Start Date End Date Jeff Simeon DO [address] [place] [address] PCP - General Family Medicine 09/28/15 Sounding Device Operator Relationship Specialty Start Date End Date Jeff Simeon DO [address] [facility] [place] [address] PCP - General Family Medicine 09/28/15 Sounding Device Operator Relationship Specialty Start Date End Date Jeff Simeon DO [address] [place] [address] PCP - General Family Medicine 09/28/15 Sounding Device Operator Relationship Specialty Start Date End Date Jeff Simeon DO [address] [place] [address] PCP - General Family Medicine 09/28/15 Sounding Device Operator Relationship Specialty Start Date End Date Jeff Simeon DO [address] [place] [address] PCP - General Family Medicine 09/28/15 Sounding Device Operator Relationship Specialty Start Date End Date Jeff Simeon DO [address] [place] [address] PCP - General Family Medicine 09/28/15 Sounding Device Operator Relationship Specialty Start Date End Date Jeff Simeon DO [address] [place] [address] PCP - General Family Medicine 09/28/15 Sounding Device Operator Relationship Specialty Start Date End Date Jeff Simeon DO [address] [facility] [place] [address] PCP - General Family Medicine 09/28/15 Sounding Device Operator Relationship Specialty Start Date End Date Jeff Simeon DO [address] [place] [address] PCP - General Family Medicine 09/28/15 Sounding Device Operator Relationship Specialty Start Date End Date Jeff Simeon DO [address] [place] [address] PCP - General Family Medicine 09/28/15 Sounding Device Operator Relationship Specialty Start Date End Date Jeff Simeon DO [address] [place] [address] PCP - General Family Medicine 09/28/15 Sounding Device Operator Relationship Specialty Start Date End Date Jeff Simeon DO [address] [place] [address] PCP - General Family Medicine 09/28/15 Jahaira Campo, ENERGY TECHNICIAN.CORE FINISHER [address] [place] [address] [facility] 01/20/24 Karson Woodward, ENERGY TECHNICIAN.CORE FINISHER [address] [place] [address] [facility] 01/20/24 Sounding Device Operator Relationship Specialty Start Date End Date Jeff Simeon DO [address] [place] [address] PCP - General Family Medicine 09/28/15 Jahaira Campo, ENERGY TECHNICIAN.CORE FINISHER [address] [place] [address] [facility] 01/20/24 Karson Woodward, ENERGY TECHNICIAN.CORE FINISHER [address] [place] [address] [facility] Sounding Device Operator Relationship Specialty Start Date End Date Jeff Simeon DO [address] [place] [address] PCP - General Family Medicine 09/28/15 Jahaira Campo, ENERGY TECHNICIAN.CORE FINISHER [address] [place] [address] [facility] 01/20/24 Karson Woodward, ENERGY TECHNICIAN.CORE FINISHER [address] [place] [address] [facility] 01/20/24 Sounding Device Operator Relationship Specialty Start Date End Date Jeff Simeon DO [address] [place] [address] PCP - General Family Medicine 09/28/15 Jahaira Campo, ENERGY TECHNICIAN.CORE FINISHER [address] [place] [address] [facility] 01/20/24 Karson Woodward, ENERGY TECHNICIAN.CORE FINISHER [address] [place] [address] [facility] 01/20/24 Team Status: Active Member Role Status [...] May 06, 2024 End: May 06, 2024 Sounding Device Operator Relationship Specialty Start Date End Date Jeff Simeon DO [address] [place], [place] [address] PCP - General Family Medicine 09/28/15 Karson Woodward APRN.CNP [address] [place], [place] [address] [facility] 01/20/24 Sounding Device Operator Relationship Specialty Start Date End Date Jeff Simeon DO [address] [place] [address] PCP - General Family Medicine 09/28/15 Karson Woodward, ENERGY TECHNICIAN.CORE FINISHER [address] [place] [address] [facility] 01/20/24 Sounding Device Operator Relationship Specialty Start Date End Date Jeff Simeon DO [address] [place] [address] PCP - General Family Medicine 09/28/15 CrissyKarson, ENERGY TECHNICIAN.CORE FINISHER [address] [place] [address] [facility] 01/20/24 Sounding Device Operator Relationship Specialty Start Date End Date Jeff Simeon DO [address] [place] [address] PCP - General Family Medicine 09/28/15 CrissyKarson, ENERGY TECHNICIAN.CORE FINISHER [address] [place] [address] [facility] 01/20/24 Sounding Device Operator Relationship Specialty Start Date End Date Jeff Simeon DO [address] [place] [address] PCP - General Family Medicine 09/28/15 Karson Woodward, ENERGY TECHNICIAN.CORE FINISHER [address] [place] [address] [facility] 01/20/24 Sounding Device Operator Relationship Specialty Start Date End Date Jeff Simeon DO [address] [place], [place] [address] PCP - General Family Medicine 09/28/15 Karson Woodward, ENERGY TECHNICIAN.CORE FINISHER [address] [place], [place] [address] [facility] 01/20/24 Jennyfer Webb, ENERGY TECHNICIAN.CORE FINISHER [address] [place], [place] [id number] [facility] 07/28/24 Team Status: Active Member Role/Relationship Status [...] BE BASED ON THE PRIMARY CLINICAL RECORDS. [facility] provides no warranty or guarantee of the accuracy or completeness of information in this document.
--- NOTE | 2025-01-15 20:17 | PCM.POSTANE2 ---
Anesthesia Postop Eval I Sum Postop Eval Completion status Anesthesia document: Postop Eval 1 completed: Yes Anesthesia Postop Eval I Summary Anesthesia Postop Eval I Summary: Anesthesia Postop Eval I: Assessment Summary Airway patent Yes 01/15/25 19:23 Spontaneous unlabored Yes 01/15/25 19:23 respirations Mental status Awake 01/15/25 19:23 nausea No 01/15/25 19:23 Vomiting No 01/15/25 19:23 Anesthesia Postop Eval I: Fluid Summary Crystalloid volume administer 1,600 01/15/25 19:23 (ml) Colloids volume administered ( ml) Blood Product volume administered (ml) Total IV fluid infused 1,600 01/15/25 19:41 Anesthesia Postop Eval I: Summary Notes Anesthesia Complication No 01/15/25 19:41 Anesthesia Complication Comment: Post-operative progress note Anesthesia: Postop Eval II Evaluation Mental status: Asleep (Arousable) Pain Level: 3 nausea: No Vomiting: No Progress Note Post-operative progress note: Patient still complaining of shortness of breath on arrival to PACU. DuoNeb nebulizer treatment given. This was followed by sugammadex 200 mg. Complications Anesthesia Complication: No
[2025-01-15] MEDS: 0.9% Normal Saline (1000mL) 1,000 ML 50 ML IV (21:24)
[2025-01-16 01:47] VITALS: BP 134/62; PULSE 106; RESP 16; TEMP 36.5; O2SAT 96
[2025-01-16] MEDS: HYDROmorphone 0.5 MG/0.5 ML SYRINGE IV ×2 (01:55→08:35)
[2025-01-16 05:27] VITALS: BP 128/65; PULSE 100; RESP 16; TEMP 36.6; O2SAT 94
--- NOTE | 2025-01-16 06:33 | PCM.PN.SRG ---
Subjective Subjective Patient seen and evaluated during a.m. rounds. She notes that her pain has improved. She states that she has been up walking. Objective Data Objective Data Vital Signs: Vital Signs Temp Pulse Resp BP Pulse Ox O2 Del Method O2 Flow Rate 98 F 100 16 128/65 H 94 Nasal Cannula 2 01/16/25 05:27 01/16/25 05:27 01/16/25 05:27 01/16/25 05:27 01/16/25 05:27 01/16/25 05:27 01/16/25 05:27 Oxygen Flow Rate (L/min) 2 Oxygen Delivery Method Nasal Cannula Weight: 183 lb 6.793 oz Body Mass Index (BMI) 32.5 Intake & Output: Intake and Output for Last 24 Hours 01/14/25 01/15/25 01/16/25 23:59 23:59 23:59 Intake Total 1017.5 / 1217.5 642.75 / 642.75 Output Total 40 / 40 Balance 977.5 / 1177.5 642.75 / 642.75 Lab / Micro Data 01/16/25 07:54 01/16/25 07:54 Labs: Laboratory Results - last 24 hr 01/15/25 10:40: POC Glucose 156 H 01/15/25 19:52: POC Glucose 267 H 01/16/25 00:02: POC Glucose 266 H Physical Exam Const oriented x3 and no apparent distress GI GI Narrative: Abdominal binder is opened and patient's incisions remain covered with operative dressings which demonstrate minimal drainage. Abdomen is mildly distended soft, and appropriately tender to palpation. Assessment & Plan Assessment/Plan (1) Status post repair of ventral hernia: PLAN: Patient is 79-year-old female admitted postoperatively from hybrid approach to ventral hernia repair after intraoperatively finding much larger defect than anticipated and postoperatively facing challenges with patient's respiratory status. Patient is much improved today with an appropriate abdominal exam and appropriate postoperative labs. She has required use of a walker for ambulating with nursing and was evaluated by physical therapy briefly who recommended a walker on discharge to home. This has been ordered. Patient improvements warrant discharge to home. Patient to call for outpatient follow-up in my office. Santosh Ballard MD General Surgery Endocrine Surgery Pager: [facility] [address] [place] [address], [address] [place] [id number] Office: [phone] Charges/Coding Visit Charges Inpatient E&M: 02749 Subs Hosp L2
[2025-01-16 08:00] VITALS: BP 109/49; PULSE 93; RESP 16; TEMP 36.6; O2SAT 95
[2025-01-16] MEDS: 0.9% Saline Lock 10 ML Syringe IV (08:35)
--- NOTE | 2025-01-16 08:51 | CASEMGMT ---
Social Work SW asked pt about LW/POA documents. Pt states her niece Monika is her HCPOA. She states copies are at the community living coach's office of [employer], so she is not able to have copies brought in at this time. REGGIE Baac
[2025-01-16 09:11] LABS: AST(SGOT) 23 U/L (<=31); Alanine Aminotransfer ALT/SGPT 30 U/L (<=34); Albumin, Serum 3.6 g/dL (3.4-4.8); Alkaline Phosphatase 89 U/L (35-104); Anion Gap 13 (5-15); BUN 15 mg/dL (4-19); BUN/Creat Ratio 18.5 RATIO (10-20); Calcium,Total 8.7 mg/dL (7.6-11.0); Carbon Dioxide 22.2 mmol/L (21.0-32.0); Chloride 106 mmol/L (98-108); Estimated Creatinine Clearance 60.17 ml/min (50-250); Globulin 2.6 g/dL (2.2-4.2); Glucose 190 mg/dL (70-99); Potassium 4.6 mmol/L (3.3-5.1)
--- NOTE | 2025-01-16 09:14 | DCINST_ITS ---
Discharge Instructions DC O2, CPAP, BIPAP needs Home O2 Discharge instructions: No Dressing / Incision Discharge Activity: May Not Drive (No driving while using narcotic pain medication) May shower in (days): 1 Ice area for (Minutes): 20 Lifting Restrictions: No lifting greater than 10 pounds for 5 weeks after surgery Dressing / Incision Call your doctor if your incision/area has: Continuous Slow Oozing, Increased Pain/ Swelling, Increased Redness, Foul Smelling Discharge and Swelling at the incision site Call your doctor if you observe: Fever of 101 or Higher, Inability to urinate and Inability to have a bowel movement Remove Dressing in: 2 days Cleanse incision/area with: Soap & Water and Keep Dressing Clean & Dry Follow Up Care Please Follow Up With: Santosh Ballard MD When: 1 week postop Test Results: Test results from this visit will be discussed in further detail at your follow- up appointment, if applicable. Discharge Plan Admission Admit Date/Time: 01/15/25 18:16 Primary Reason for Your Visit: Hernia repair Attending Provider: Santosh Ballard Primary Care Provider: Jeff Simeon Consulting Providers: Randolph Garcia Discharge Orders/Prescriptions Prescriptions: New oxycodone 5 mg Tablet 5 mg PO Q6H PRN PRN (Reason: Pain Score 6-10) 3 Days Qty: 10 0RF Continued ferrous sulfate [FeroSul] 325 mg (65 mg iron) tablet 325 mg PO .COMPLEX Rx Instructions: 325 mg orally twice a week; cholestyramine (with sugar) 4 gram powder in packet 4 g PO HS 90 Days Qty: 60 3RF Rx Instructions: no meds 1 hr before/4-6 hr after dose levothyroxine 150 mcg capsule 225 mcg PO WETHFRSA Patient Comments: PT TAKES AT HS DUE TO INTERACTION WTIH LOSARTAN, glimepiride 2 mg tablet 2 mg PO DAILY levothyroxine 150 mcg tablet 150 mcg PO SUMOTU Patient Comments: TAKE 1 TABLET BY MOUTH ONCE DAILY. TAKE ON EMPTY STOMACH. FOR THYROID. PT STATES TAKES IT AT NIGHT BECAUSE OF AN INTERACTION WITH LOSARTAN. TAKING 150MCG S,M,T. TAKING 225MCG W,H,F,SA losartan 50 mg tablet 50 mg PO DAILY metformin 500 mg tablet 500 mg PO BID Patient Comments: TAKE 1 TABLETS BY MOUTH TWO TIMES A DAY WITH MEALS. Referrals / Follow Up: Jeff Simeon, DO [Primary Care Provider, Medical] Disposition Disposition (needs filled in before D/C Order can be placed): Home, Self Care
[2025-01-16 09:18] LABS: Hematocrit 35.4 % (37-47); Hemoglobin 10.7 g/dL (12.0-15.0); Mean Corp Hgb Conc 30.2 g/dL (32-36); Mean Corpuscular Volume 79.4 fL (81-99); Mean Platelet Vol. 10.8 fl (6.2-12.0); Platelet Count 372 K/mm3 (150-450); RBC Distribution Width CV 14.6 % (11.6-14.6); RBC Distribution Width SD 42.2 fl (35.1-43.9); Red Blood Count 4.46 M/mm3 (4.2-5.4); White Blood Count 11.8 K/mm3 (4.4-11.0)
[2025-01-16 09:50] VITALS: BP 108/54; PULSE 70; RESP 16; TEMP 36.3; O2SAT 95
--- NOTE | 2025-01-16 11:16 | CASEMGMT ---
Addendum entered by Toya Wallace 01/16/25 14:46: ROBERT MISTRY Into pt room, Pt states her ride is here and she feels she needs a FWW to go home with. Pt agreeable to [facility] for DME. Provided a FWW from [employer]. Pt denies any additional needs at this time. Original Note: ROBERT MISTRY noted DC order in. Into Pt room, Pt sitting up in chair in no distress. Pt states she lives alone, has transportation home. A friend is picking her up between 2-2:30 today. States she has a niece that is helping take care of her dog at home while she is in the hospital. Pt states she has some friends that will check in on her once she is DC'd home. ROBERT MISTRY noted Pt has been using a FWW while in the hospital. Pt states she previously had a walker that she borrowed from a friend but her friend fell and needed it back. Pt states she does not have a walker at home now, but would like one. ROBERT MISTRY provided verbal list of DME providers, Pt wants to obtain a script to take to DME agency to pickle processor herself. ROBERT MISTRY reached out to surgeon to obtain signed script.
[2025-01-16 14:18] VITALS: BP 113/61; PULSE 94; RESP 15; TEMP 36.2; O2SAT 96
--- NOTE | 2025-01-16 18:17 | PCM.DC.SUM ---
Providers Date of Admission: 01/15/25 Primary Care Physician: Dr. Jeff Simeon, Reason For Visit: S/P VENTRAL HERNIA REPAIR Diagnosis Discharge Diagnosis (1) Status post repair of ventral hernia: Status: Acute Code(s): Z98.890 - Other specified postprocedural states; Z87.19 - Personal history of other diseases of the digestive system Plan: Patient is 79-year-old female admitted postoperatively from hybrid approach to ventral hernia repair after intraoperatively finding much larger defect than anticipated and postoperatively facing challenges with patient's respiratory status. Patient is much improved today with an appropriate abdominal exam and appropriate postoperative labs. She has required use of a walker for ambulating with nursing and was evaluated by physical therapy briefly who recommended a walker on discharge to home. This has been ordered. Patient improvements warrant discharge to home. Patient to call for outpatient follow-up in my office. Santosh Ballard MD General Surgery Endocrine Surgery Pager: [phone] [address] [place] [address], [address] [place] [address] Office: [phone] Medications at Discharge Home Medications glimepiride 2 mg tablet 2 mg PO DAILY diabetes 03/05/23 levothyroxine 150 mcg tablet 150 mcg PO SUMOTU thyroid 03/05/23 losartan 50 mg tablet 50 mg PO DAILY blood pressure 03/05/23 metformin 500 mg tablet 500 mg PO BID diabetes 03/05/23 levothyroxine 150 mcg capsule 225 mcg PO WETHFRSA thyroid 12/13/23 ferrous sulfate 325 mg (65 mg iron) tablet (FeroSul) 325 mg PO .COMPLEX 05/06/24 cholestyramine (with sugar) 4 gram powder for susp in a packet 4 g PO HS 3 months #60 ea 11/04/24 oxycodone 5 mg tablet 5 mg PO Q6H PRN PRN Pain Score 6-10 3 days #10 tabs 01/16/25 Hospital Course Operations - (Hybrid approach to ventral hernia repair) Summary of Care Provided Hospital Course: Patient is 79-year-old female who underwent hybrid approach to ventral hernia repair on 01/15/2025. Intraoperatively she was found to have much larger fascial defect requiring a much longer operative time and more incisional discomfort. I had this plan for observation at that point, however, postoperatively patient had some respiratory instability that required prolonged bagging and repeated reversal of neuromuscular blockade. With this constellation she was admitted to the hospital for overnight observation. By the morning of postoperative day 1 she was much improved and had reassuring labs and physical exam. She was evaluated by physical therapy and determined to require a walker to mobilize safely. This was obtained and patient was discharged to home later postoperative day 1 and improved condition with expectation set for outpatient follow-up in general surgery office Physical Exam Const alert, oriented x3 and no apparent distress GI GI Narrative: Abdominal binder in place, operative dressings with minimal drainage, minimally distended, soft, appropriately tender to palpation. Weight / BMI Weight Weight: 183 lb 6.793 oz Body Mass Index (BMI) 32.5 ABG / Lab / Microbiology Data 01/16/25 07:54 01/16/25 07:54 Laboratory: Laboratory Results - last 24 hr 01/15/25 19:52: POC Glucose 267 H 01/16/25 00:02: POC Glucose 266 H 01/16/25 07:54: WBC 11.8 H, RBC 4.46, Hgb 10.7 L, Hct 35.4 L, MCV 79.4 L, MCH 24.0 L, MCHC 30.2 L, RDW Std Deviation 42.2, RDW Coeff of Anand 14.6, Plt Count 372, MPV 10.8, Sodium 140, Potassium 4.6, Chloride 106, Carbon Dioxide 22.2, Anion Gap 13, BUN 15, Creatinine 0.79, Estim Creat Clear Calc 60.17, Est GFR (MDRD) Non-Af 77, BUN/Creatinine Ratio 18.5, Glucose 190 H, Calcium 8.7, Total Bilirubin 0.47, AST 23, ALT 30, Alkaline Phosphatase 89, Total Protein 6.2, Albumin 3.6, Globulin 2.6, Albumin/Globulin Ratio 1.4 D/C Instructions May shower in (days): 1 Ice area for (Minutes): 20 Call your doctor if your incision/area has: Continuous Slow Oozing, Increased Pain/ Swelling, Increased Redness, Foul Smelling Discharge and Swelling at the incision site Call your doctor if you observe: Fever of 101 or Higher, Inability to urinate and Inability to have a bowel movement Cleanse incision/area with: Soap & Water and Keep Dressing Clean & Dry DC O2, CPAP, BIPAP Needs Home O2 Discharge instructions: No Please Follow Up With: Santosh Ballard MD When: 1 week postop Meaningful Use Info Meaningful Use Meaningful Use Diagnoses (Choose all that apply): None applicable Discharge Plan Admission Admit Date/Time: 01/15/25 18:16 Primary Reason for Your Visit: Hernia repair Attending Provider: Santosh Ballard Primary Care Provider: Jeff Simeon Consulting Providers: Randolph Garcia Discharge Orders/Prescriptions Prescriptions: New oxycodone 5 mg Tablet 5 mg PO Q6H PRN PRN (Reason: Pain Score 6-10) 3 Days Qty: 10 0RF Continued ferrous sulfate [FeroSul] 325 mg (65 mg iron) tablet 325 mg PO .COMPLEX Rx Instructions: 325 mg orally twice a week; cholestyramine (with sugar) 4 gram powder in packet 4 g PO HS 90 Days Qty: 60 3RF Rx Instructions: no meds 1 hr before/4-6 hr after dose levothyroxine 150 mcg capsule 225 mcg PO WETHFRSA Patient Comments: PT TAKES AT HS DUE TO INTERACTION WTIH LOSARTAN, glimepiride 2 mg tablet 2 mg PO DAILY levothyroxine 150 mcg tablet 150 mcg PO SUMOTU Patient Comments: TAKE 1 TABLET BY MOUTH ONCE DAILY. TAKE ON EMPTY STOMACH. FOR THYROID. PT STATES TAKES IT AT NIGHT BECAUSE OF AN INTERACTION WITH LOSARTAN. TAKING 150MCG S,M,T. TAKING 225MCG W,H,F,SA losartan 50 mg tablet 50 mg PO DAILY metformin 500 mg tablet 500 mg PO BID Patient Comments: TAKE 1 TABLETS BY MOUTH TWO TIMES A DAY WITH MEALS. Referrals / Follow Up: Jeff Simeon DO [Primary Care Provider, Medical] Disposition Disposition (needs filled in before D/C Order can be placed): Home, Self Care Charges/Coding Visit Charges Inpatient E&M: 54877 Disch Hosp
== END 2025-01-16 14:50 | disposition home or self-care (01) ==
LOC: MS3 20:09 → SDC 01-16 09:27 → MS3 01-16 09:28
PROVIDERS: Anesthesiology; Admitting Provider Surgery; PCP Student in an Organized Health Care Education/Training Program; Referring Provider Student in an Organized Health Care Education/Training Program; Visit Provider Surgery
PROC: 0WQF4ZZ Repair Abdominal Wall, Percutaneous Endoscopic Approach (ICD-10-PCS; CPT 49595; principal; 2025-01-15 11:20)
DX: K43.2 Incisional hernia without obstruction or gangrene (principal); K51.90 Ulcerative colitis, unspecified, without complications; E11.9 Type 2 diabetes mellitus without complications; Z79.84 Long term (current) use of oral hypoglycemic drugs; D50.9 Iron deficiency anemia, unspecified; I10 Essential (primary) hypertension; Z79.899 Other long term (current) drug therapy; Z79.890 Hormone replacement therapy; E03.9 Hypothyroidism, unspecified; K21.9 Gastro-esophageal reflux disease without esophagitis
CPT/HCPCS: 49595; S2900; 00752; 36415; 80053; 82962; 84443; 85027; 93005; 96374; 96376; 97161; 99221; A4216; G0378; J0666; J2312; J2405